=== PATIENT | male | born 1980 | race Caucasian/White ===

== ENCOUNTER 2022-09-13 10:40 | Outpatient (OUT) | payer OTHER, SELFPAY ==
--- NOTE | 2022-09-13 11:17 | P.CN_ITS ---
Consult Note: HPI Data of Consult Patient: known to practice within the last 3 years Consult date: 09/13/22 Requesting Physician: ROSINA ESPINAL NP Primary Care Provider: MARIBETH VUONG Consult Narrative Reason for consult: back pain Narrative: Here for f/u bilat L3,4 L4,5 MBB on 09/03/22. He received 80% relief of pain and increased fx for several hours after procedure. No new sensorimotor sx or bowel or bladder changes. Medication regimen helps control pain and assist with ability to complete ADLs. He does feel like the percocet is wearing off before next dose due. We discussed increasing dosing to 4 times a day until RFA completed. He has narcan at home. He will need second dx MBB on right before right RFA. No radicular sx. cc:: CC: ROSINA ESPINAL NP Review of Systems ROS0 Status of ROS 10 or more systems reviewed and unremarkable except as noted in history and below Musculoskeletal Reports: back pain Meds Home Medications and Allergies Home Medications Medication Instructions Recorded Confirmed Type acetaminophen 500 mg tablet 1,000 mg PO Q6H 09/13/22 09/13/22 History (Tylenol Extra Strength) cyclobenzaprine 10 mg tablet 10 mg PO TID 09/13/22 09/13/22 History dicyclomine 10 mg capsule 10 mg PO TID 09/13/22 09/13/22 History diphenhydramine HCl 25 mg tablet 50 mg PO DAILY 09/13/22 09/13/22 History (Allergy (diphenhydramine)) meloxicam 15 mg tablet 15 mg PO DAILY 09/13/22 09/13/22 History ondansetron HCl 8 mg tablet 8 mg PO BID PRN nausea and vomiting 09/13/22 09/13/22 History oxycodone-acetaminophen 5 mg-325 1 tab PO TID 09/13/22 09/13/22 History mg tablet (Endocet) Allergies Allergy/AdvReac Type Severity Reaction Status Date / Time gabapentin AdvReac Severe Dizziness Verified 09/13/22 11:25 Exam Constitutional Documenting provider has reviewed patient's vital signs: yes Common normals: no apparent distress, average body habitus, oriented x3, healthy appearing and well nourished Orientation/consciousness: Yes awake, Yes oriented to person, Yes oriented to place and Yes oriented to time Other: walks with cane HENMT Common normals: normocephalic, hearing grossly normal bilaterally, nasal mucous membranes and turbinates normal and moist oral mucous membranes Respiratory Common normals: normal respiratory effort, no retractions and no use of accessory muscles Effort & inspection: able to speak in complete sentences and symmetric chest movement Back & Pelvis Lumbar spine/lower back: normal to inspection, ROM limited, pain with ROM, paraspinal muscle tenderness, straight leg raise negative bilaterally and other soft tissue findings (positive facet load bilat) Assessment and Plan Assessment and Plan (1) Lumbar spondylosis: (2) Muscle spasm: Plan schedule thermal RFA left L3,4 and L4,5 under fluoroscopy with sedation. increase percocet dose to 4x daily
== END 2022-09-13 10:41 ==
PROVIDERS: Visit Provider Nurse Practitioner
DX: M47.816 Spondylosis without myelopathy or radiculopathy, lumbar region (principal); M62.838 Other muscle spasm
CPT/HCPCS: G0463

== ENCOUNTER 2022-09-24 08:07 | Day surgery (SDC) | payer OTHER, SELFPAY ==
--- NOTE | 2022-09-24 08:38 | W.PM.PROCNOT ---
Date of procedure: 09/24/22 Procedure: Left Lumbar 3,4 & 4,5 Radiofrequency ablation PreOp diagnosis: pain secondary to include lumbar spondylosis Postop diagnosis same Under fluoroscopic guidance Rhizotomy was created using radio frequency ablation at 80?C for 90 seconds 1 to 2 lesions created at each site. Post lesioning injection of 2 mL each of 0.25% Marcaine and 2% lidocaine with Depo-Medrol 40mg. 0.5 to 1 mL injected at each site IV in place yes If Intravenous fluids: NS at KVO Anesthesia local 2% lidocaine for Anesthesia Other: MAC Timeout process compliant After informed consent obtained.Patient brought to the procedure room placed in the prone position skin overlying the area was prepped and draped in a sterile fashion using betadine. 25 gauge needle was used to create a skin wheal over each of the targeted areas utilizing 2% lidocaine. A rhizotomy needle with a 10 mm active tip was inserted over each of the anesthetized areas and directed towards each of the medial branches accomplished under fluoroscopic guidance. after encountering the same we had positive sensory stimulation, negative motor stimulation was noted. lesions were then created. Post lesioning, steroid solution was injected needles removed. Patient was transferred to recovery room in stable condition to be discharged home after meeting criteria. Anesthesia: MAC Surgeon: Mindy Manning
[2022-09-24 09:03] VITALS: BP 149/97; PULSE 96; RESP 14; TEMP 36.9; O2SAT 97
[2022-09-24] MEDS: 0.9 % SODIUM CHLORIDE 500 ML 50 ML IV (09:08)
[2022-09-24] MEDS: BUPIVACAINE HCL 0.25% PF 25 MG/10 ML VIAL 5 ML INJ (10:02)
[2022-09-24] MEDS: METHYLPREDNISOLONE ACETATE 40 MG/ML VIAL INJ (10:03)
[2022-09-24] MEDS: LIDOCAINE HCL 2% 400 MG/20 ML MDV 15 ML INJ (10:04)
[2022-09-24 10:12] VITALS: BP 155/104; PULSE 90; RESP 16; TEMP 36.9
[2022-09-24 10:20] VITALS: BP 143/98; PULSE 92; RESP 16; O2SAT 94
[2022-09-24 10:26] VITALS: BMI 37.4
== END 2022-09-24 10:42 | disposition home or self-care (01) ==
LOC: SURGOUT 08:07
PROVIDERS: Visit Provider Anesthesiology Pain Medicine
DX: M47.816 Spondylosis without myelopathy or radiculopathy, lumbar region (principal)
CPT/HCPCS: 64635; 64636; 64646; J1030; J2704

== ENCOUNTER 2022-10-24 09:26 | Outpatient (OUT) | payer OTHER, SELFPAY ==
--- NOTE | 2022-10-24 10:03 | P.CN_ITS ---
Consult Note: HPI Data of Consult Consult date: 10/24/22 Requesting Physician: ROSINA ESPINAL NP Primary Care Provider: MARIBETH CASTELLANOSMER Consult Narrative Narrative: Patient was here for f/u of left lumbar RFA . He received 80% relief of pain with increased fx after procedure continued through today. Pain is more in right lumbar area today worse with movement, standing, lifting. He had initial dx MBB right side with 80% relief of pain. He would like to proceed with second dx MBB right with progression to RFA. Denies adverse SE of medications. Medication regimen assists patient with being better able to perform ADLS. No new sensorimotor or bowel or bladder issues. cc:: CC: ROSINA ESPINAL NP Review of Systems ROS Status of ROS 10 or more systems reviewed and unremarkable except as noted in history and below Musculoskeletal Reports: back pain PFSH [facility] Medical History (Updated 09/19/22 @ 13:30 by Holli Caldera) Surgical History Meds Home Medications and Allergies Home Medications Medication Instructions Recorded Confirmed Type acetaminophen 500 mg tablet 1,000 mg PO Q6H 09/13/22 09/24/22 History (Tylenol Extra Strength) cyclobenzaprine 10 mg tablet 10 mg PO TID 09/13/22 09/24/22 History diphenhydramine HCl 25 mg tablet 50 mg PO DAILY 09/13/22 09/24/22 History (Allergy (diphenhydramine)) meloxicam 15 mg tablet 15 mg PO DAILY 09/13/22 09/24/22 History ondansetron HCl 8 mg tablet 8 mg PO BID PRN nausea and vomiting 09/13/22 09/24/22 History oxycodone-acetaminophen 5 mg-325 1 tab PO TID 09/13/22 09/24/22 History mg tablet (Endocet) Allergies Allergy/AdvReac Type Severity Reaction Status Date / Time gabapentin AdvReac Severe Dizziness Verified 09/24/22 08:59 Exam Constitutional Documenting provider has reviewed patient's vital signs: yes Common normals: no apparent distress, oriented x3, healthy appearing, alert and well nourished General appearance: cooperative Nutritional appearance: obese Orientation/consciousness: Yes awake, Yes oriented to person, Yes oriented to place and Yes oriented to time Other: uses cane HENMT Common normals: normocephalic and moist oral mucous membranes Respiratory Common normals: normal respiratory effort, no retractions and no use of accessory muscles Effort & inspection: able to speak in complete sentences and symmetric chest movement Back & Pelvis Lumbar spine/lower back: normal to inspection, ROM limited, pain with ROM, paraspinal muscle tenderness, paraspinal muscle spasm and straight leg raise negative bilaterally Other: positive facet load pain right lumbar muscle strength 4/5 bilat with intact sensation Assessment and Plan Assessment and Plan (1) Muscle spasm: (2) Lumbar spondylosis: Plan schedule right dx MBB L3/4, L4/5 under fluoroscopy with ultimate progression to thermal RFA refill flexeril and percocet
== END 2022-10-24 09:27 | disposition home or self-care (01) ==
PROVIDERS: Visit Provider Nurse Practitioner
DX: M62.838 Other muscle spasm (principal); M47.816 Spondylosis without myelopathy or radiculopathy, lumbar region
CPT/HCPCS: G0463

== ENCOUNTER 2022-11-19 09:27 | Day surgery (SDC) | payer OTHER, SELFPAY ==
[2022-11-19 09:41] VITALS: BP 186/113; PULSE 104; RESP 18; TEMP 37.3; O2SAT 97
[2022-11-19 10:46] VITALS: BP 160/112; PULSE 99; RESP 20; O2SAT 97
[2022-11-19 10:47] VITALS: RESP 20
[2022-11-19] MEDS: BUPIVACAINE HCL 0.25% PF 25 MG/10 ML VIAL 4 ML INJ (10:47)
[2022-11-19 10:48] VITALS: BP 157/110; PULSE 99; O2SAT 96
--- NOTE | 2022-11-19 11:10 | W.PM.PROCNOT ---
Date of procedure: 11/19/22 Pre-op diagnosis: lumbar spondylosis Post-op diagnosis: same as pre-op Procedure: Right lumbar 2/3, 3/4 medial branch block Under fluoroscopic guidance Solution injected: 2millilitersMarcaine 0.25% Anesthesia :none Immediate complications none Time out process compliant After informed consent obtained from the patient placed in the Prone proposition . area was prepped and draped in a sterile fashion using Cloraprep .25 gauge spinal needle inserted over each of the above mentioned target areas . [place] were directed towards the target under fluoroscopic guidance . after encountering each of the targets , no indication of intravascular intraneuronal or intrathecal needle tip placement. Then 0 .5 to 1 Milliliter was injected at each level. [place] removed postoperatively. patient transferred to recovery in stable condition to be discharged home after meeting criteria Anesthesia: Local Surgeon: Mindy Manning Condition: stable
== END 2022-11-19 10:57 | disposition home or self-care (01) ==
LOC: SURGOUT 09:27
PROVIDERS: Visit Provider Anesthesiology Pain Medicine
DX: M47.816 Spondylosis without myelopathy or radiculopathy, lumbar region (principal)
CPT/HCPCS: 64493; 64494

== ENCOUNTER 2022-12-05 08:45 | Outpatient (OUT) | payer OTHER, SELFPAY ==
--- NOTE | 2022-12-05 09:12 | P.CN_ITS ---
Consult Note: HPI Data of Consult Patient: known to practice within the last 3 years Requesting Physician: Brianna Wallace NP Primary Care Provider: MARIBETH VUONG Consult Narrative Reason for consult: f/u Narrative: Pedro Pablo Irene a pleasant 41 year old male presents to office for evaluation of chronic low back pain. Patient had significant relief of over 80%, with increased range of motion, decreased pain with provocative maneuvers, and increased ability to perform ADLs after diagnostic right 2/3 4/5 block 2.??Patient rating pain today 7/10, BP notably elevated at todays visit 167/118. Patient advised to go to ER, declining. Will call PCP office and notify of BP. Patient would like to discuss proceedint with thermal RFA. cc:: CC: Brianna Wallace NP Review of Systems ROS Status of ROS 10 or more systems reviewed and unremarkable except as noted in history and below Musculoskeletal Reports: back pain PFSH PFSH Medical History Surgical History Meds Home Medications and Allergies Home Medications Medication Instructions Recorded Confirmed Type acetaminophen 500 mg tablet 1,000 mg PO Q6H 09/13/22 11/19/22 History (Tylenol Extra Strength) cyclobenzaprine 10 mg tablet 10 mg PO TID 09/13/22 11/19/22 History diphenhydramine HCl 25 mg tablet 50 mg PO DAILY 09/13/22 11/19/22 History (Allergy (diphenhydramine)) meloxicam 15 mg tablet 15 mg PO DAILY 09/13/22 11/19/22 History ondansetron HCl 8 mg tablet 8 mg PO BID PRN nausea and vomiting 09/13/22 11/19/22 History oxycodone-acetaminophen 5 mg-325 1 tab PO TID 09/13/22 11/19/22 History mg tablet (Endocet) oxycodone-acetaminophen 5 mg-325 1 tab PO TID PRN pain #90 tabs 11/21/22 Rx mg tablet (Percocet) Allergies Allergy/AdvReac Type Severity Reaction Status Date / Time gabapentin AdvReac Severe Dizziness Verified 11/19/22 09:38 zonisamide [From Zonegran] AdvReac Intermediate Nausea Verified 11/19/22 09:38 Exam Constitutional Documenting provider has reviewed patient's vital signs: yes Common normals: no apparent distress, oriented x3, healthy appearing, alert and well nourished General appearance: cooperative HENMT Common normals: normocephalic, hearing grossly normal bilaterally and moist oral mucous membranes Head and scalp: normocephalic Eye Common normals: PERRL Pupil: PERRL Neck & C-Spine Common normals: full ROM General: normal visual inspection Chest Common normals: inspection of chest normal Respiratory Common normals: normal respiratory effort, no retractions and no use of accessory muscles Back & Pelvis Lumbar spine/lower back: ROM limited, pain with ROM and straight leg raise negative bilaterally Sacroiliac joints: SI joints normal Other: predominately axial low back pain, post fusion Neuro Common normals: oriented x3, CN's II-XII intact bilaterally, moves all extr emities, no focal motor deficits, no sensory deficits noted and deep tendon reflexes 2+ bilaterally Sensorium/orientation: alert Motor exam: strength 5/5 throughout and no movement abnormalities noted Psych Common normals: mental status grossly normal, thought process normal, cooperative, affect normal, speech normal and activity/motor behavior normal Speech: normal speech Thought process: normal thought process Results Additional Findings Additional findings: I have checked an [place] report on this patient today and there are no aberrancies noted in the prescribing history.?? A drug screen was completed and reviewed within the last year, and if there has not been a drug screen completed we ordered one today to monitor higher risk, state monitored pain medication use. As part of providing excellent, safe, comprehensive care, the following was completed at our patient's visit: 1. A medication reconciliation and review to ensure accurate knowledge of curr ent/active medications, including asking our patients to inform us about any [id number] medications or herbal remedies/nutritional supplements/alternative remedies. 2. A review to specifically ensure our patients have had annual screening for: elevated body mass index (BMI), tobacco use, screening for depression, and screening for unhealthy alcohol use. When screening is concerning, patients are provided with education and the specific recommendation to discuss the concerning health issue and treatment options with their primary care provider. The patient has had over 3 months of moderate to severe low back pain with functional impairment and inadequate response to conservative care including NSAIDS (unless there are contraindication such as concurrent blood thinners), multiple oral or topical pain medications, and home exercise program/physical therapy.? Patient has completed >6 weeks of guided home exercise program and/or formal physical therapy program without relief of their symptoms.? The Oswestry Disability Index was completed, and the patient scored a 64%.? The patient noted the following:?? severe pain, pain with ADLs requiring assistance, can only lift very light w eights, pain prevents me from walking more than 100 yards, pain prevents her from standing more than 1hr, pain prevents her from standing more than 30 minutes, pain interferes with sleep, pain restricts social life and travel. We discussed the risks and benefits of the procedure with the patient.?The procedure will be completed with fluoroscopic guidance.? Assessment and Plan Assessment and Plan (1) Lumbar spondylosis: (2) Muscle spasm: (3) Status post lumbar spinal fusion: Plan thermal radiofrequency ablation of right L2/3 L4/5 under fluoroscopy with IV sedation f/u after procedure
== END 2022-12-05 08:46 | disposition home or self-care (01) ==
LOC: PM 09:13
PROVIDERS: Visit Provider Nurse Practitioner
DX: M47.816 Spondylosis without myelopathy or radiculopathy, lumbar region (principal); M62.838 Other muscle spasm; Z98.1 Arthrodesis status
CPT/HCPCS: G0463

== ENCOUNTER 2023-01-07 07:55 | Day surgery (SDC) | payer OTHER, SELFPAY ==
[2023-01-07 08:09] VITALS: BP 125/73; PULSE 102; RESP 16; TEMP 36.5; O2SAT 96
[2023-01-07] MEDS: 0.9 % SODIUM CHLORIDE 500 ML IV (08:17)
[2023-01-07] MEDS: BUPIVACAINE HCL 0.25% PF 25 MG/10 ML VIAL INJ (09:03)
[2023-01-07] MEDS: LIDOCAINE HCL 2% 400 MG/20 ML MDV 15 ML INJ (09:04)
[2023-01-07] MEDS: METHYLPREDNISOLONE ACETATE 40 MG/ML VIAL INJ (09:04)
[2023-01-07 09:18] VITALS: BP 137/87; PULSE 93; RESP 16; TEMP 36.8; O2SAT 97
[2023-01-07 09:19] VITALS: BP 127/85; PULSE 90; RESP 16; TEMP 36.8; O2SAT 96
--- NOTE | 2023-01-07 10:00 | W.PM.PROCNOT ---
Date of procedure: 01/07/23 Pre-op diagnosis: lumbar spondylosis Post-op diagnosis: same as pre-op Procedure: Right lumbar 2/3, 4/5 Radiofrequency ablation Under fluoroscopic guidance Rhizotomy was created using radio frequency ablation at 80?C for 90 seconds 1 to 2 lesions created at each site. Post lesioning injection of 2 mL each of 0.25% Marcaine and 2% lidocaine with Depo-Medrol 40mg. 0.5 to 1 mL injected at each site IV in place yes If Intravenous fluids: NS at KVO Anesthesia local 2% lidocaine for Anesthesia Other: MAC Timeout process compliant After informed consent obtained.Patient brought to the procedure room placed in the prone position skin overlying the area was prepped and draped in a sterile fashion using betadine. 25 gauge needle was used to create a skin wheal over each of the targeted areas utilizing 2% lidocaine. A rhizotomy needle with a 10 mm active tip was inserted over each of the anesthetized areas and directed towards each of the medial branches accomplished under fluoroscopic guidance. after encountering the same we had positive sensory stimulation, negative motor stimulation was noted. lesions were then created. Post lesioning, steroid solution was injected needles removed. Patient was transferred to recovery room in stable condition to be discharged home after meeting criteria. Anesthesia: MAC Surgeon: Mindy Manning Condition: stable
== END 2023-01-07 09:37 | disposition home or self-care (01) ==
LOC: SURGOUT 07:56
PROVIDERS: Visit Provider Anesthesiology Pain Medicine
PROC: (CPT 1992; principal; 2023-01-07 08:50)
DX: M47.816 Spondylosis without myelopathy or radiculopathy, lumbar region (principal)
CPT/HCPCS: 64635; 64636; J1030; J2704

== ENCOUNTER 2023-02-05 09:20 | Outpatient (OUT) | payer OTHER, SELFPAY ==
--- NOTE | 2023-02-05 09:38 | PM.CN ---
Consult Note: HPI Data of Consult Requesting Physician: Mindy Manning MD Primary Care Provider: MARIBETH VUONG Consult Narrative Reason for consult: f/u Narrative: Pedro Pablo Irene a pleasant 42 year old male presents for evaluation and management of chronic low back and right leg pain, post lumbar fusion. Today rating pain 6/10 in right low back, reports 80% ongoing relief in right low back over L2-3 4-5 facets. Patient utilizing PRN percocet TID as well as flexeril and tylenol. cc:: CC: Mindy Manning MD Review of Systems ROS Status of ROS 10 or more systems reviewed and unremarkable except as noted in history and below Musculoskeletal Reports: back pain PFSH PFSH Medical History Surgical History S/P lumbar spine operation ?Z98.890 - Other specified postprocedural states (ICD-10) Meds Home Medications and Allergies Home Medications Medication Instructions Recorded Confirmed Type acetaminophen 500 mg tablet 1,000 mg PO Q6H 09/13/22 01/07/23 History (Tylenol Extra Strength) cyclobenzaprine 10 mg tablet 10 mg PO TID 09/13/22 01/07/23 History diphenhydramine HCl 25 mg tablet 50 mg PO DAILY 09/13/22 01/07/23 History (Allergy (diphenhydramine)) meloxicam 15 mg tablet 15 mg PO DAILY 09/13/22 01/07/23 History oxycodone-acetaminophen 5 mg-325 1 tab PO TID 09/13/22 01/07/23 History mg tablet (Endocet) oxycodone-acetaminophen 5 mg-325 1 tab PO TID PRN pain #90 tabs 12/25/22 01/07/23 Rx mg tablet (Percocet) losartan 50 mg-hydrochlorothiazide tab 01/07/23 History 12.5 mg tablet cyclobenzaprine 10 mg tablet 10 mg PO TID PRN muscle spasm #80 01/22/23 Rx tabs oxycodone-acetaminophen 5 mg-325 1 tab PO TID PRN pain #90 tabs 01/22/23 Rx mg tablet (Percocet) Allergies Allergy/AdvReac Type Severity Reaction Status Date / Time gabapentin AdvReac Severe Dizziness Verified 01/07/23 08:07 zonisamide [From Zonegran] AdvReac Intermediate Nausea Verified 01/07/23 08:07 Exam Constitutional Documenting provider has reviewed patient's vital signs: yes Common normals: no apparent distress, oriented x3, healthy appearing, alert and well nourished General appearance: cooperative HENMT Common normals: normocephalic, hearing grossly normal bilaterally and moist oral mucous membranes Head and scalp: normocephalic Eye Common normals: PERRL Pupil: PERRL Neck & C-Spine Common normals: full ROM General: normal visual inspection Chest Common normals: inspection of chest normal Respiratory Common normals: normal respiratory effort, no retractions and no use of accessory muscles Back & Pelvis Lumbar spine/lower back: ROM limited, pain with ROM and straight leg raise negative bilaterally Sacroiliac joints: SI joints normal Other: predominately axial low back pain, post fusion Neuro Common normals: oriented x3, CN's II-XII intact bilaterally, moves all extremities, no focal motor deficits, no sensory deficits noted and deep tendon reflexes 2+ bilaterally Sensorium/orientation: alert Motor exam: strength 5/5 throughout and no movement abnormalities noted Psych Common normals: mental status grossly normal, thought process normal, cooperative, affect normal, speech normal and activity/motor behavior normal Speech: normal speech Thought process: normal thought process Assessment and Plan Assessment and Plan (1) Status post lumbar spinal fusion: (2) Muscle spasm: (3) Lumbar spondylosis: (4) Marijuana use: Plan Random UDS today. Patient admitted to utilizing marijuana, has previously tested positive for THC. Discontinue opioid prescription due to marijuana use continue flexeril 10mg TID continue tylenol PRN
== END 2023-02-05 09:21 | disposition home or self-care (01) ==
LOC: PM 09:21
PROVIDERS: Visit Provider Anesthesiology Pain Medicine
DX: M47.816 Spondylosis without myelopathy or radiculopathy, lumbar region (principal); M62.838 Other muscle spasm; Z98.1 Arthrodesis status
CPT/HCPCS: G0463

== ENCOUNTER 2023-05-07 08:48 | Outpatient (OUT) | payer OTHER, SELFPAY ==
--- OUTSIDE RECORDS SUMMARY | 2023-05-07 08:52 | XMS_ITS | CCD ---
Author Name Unknown Address [address] [facility] [address] [place] [address] Organization [facility] Care Team Providers Care Coil Strapper Name Role Phone Lashay Li Admitting Unavailable Lashay Li Attending Unavailable RENE MORRELL Primary Care Unavailable PHI RENE Attending Unavaila Charles Cohen Unavailable Carolann, Maribeth Unavailable Carolann, Maribeth Unavailable Carolann, Maribeth Unavailable Carolann, DO Maribeth Williamson Primary Care Provider Carolann, DO Maribeth N Attending Provider Igor Orr Unavailable CAROLANN, MARIBETH Primary Care Unavailable LEANDER LAFLEUR Consulting Unavailable LEANDER LAFLEUR Attending Unavailable LEANDER LAFLEUR Admitting Unavailable EVANGELIST LEOS Consulting Unavailable CAROLANN, MARIBETH Primary Care Unavailable TONO Alexandra, DR ARMENTA Consulting Unavailable TONO Alexandra, DR ARMENTA Attending Unavailable TONO ., DR ARMENTA Admitting Unavailable WISAM ., DR JESSICA Huerta Attending Unavailable CAROLANN, MARIBETH Primary Care Unavailable SCHUSTER ., BRIT Consulting Unavailable WISAM ., DR JESSICA Huerta Admitting Unavailable JOEL ., DR JESSICA Huerta Consulting Unavailable WISAM ., DR JESSICA Huerta Attending Unavailable CAROLANN, MARIBETH Primary Care Unavailable JOEL ., DR JESSICA Huerta Admitting Unavailable JOEL ., DR JESSICA Huerta Attending Unavailable CAROLANN, MARIBETH Primary Care Unavailable JOEL ., DR JESSICA Huerta Admitting Unavailable SCHUSTER ., BRIT Consulting Unavailable JOEL ., DR JESSICA Huerta Attending Unavailable CAROLANN, MARIBETH Primary Care Unavailable JOEL ., DR JESSICA Huerta Admitting Unavailable SCHUSTER ., BRIT Consulting Unavailable JESS ., NARENDRANATH Attending Jsesy vailable LAKSHMIPATHY ., NARENDRANATH Admitting Jessy vailable CAROLANN, MARIBETH Primary Care Unavailable BALWINDEREBKHUSHBOO, DR DAMARIS Deras Consulting Unavailable LAKSHMIPATHY ., NARENDRANATH Consulting Jessy vailable SCHUSTER ., BRIT Attending Unavailable SCHUSTER ., BRIT Admitting Unavailable CAROLANN, MARIBETH Primary Care Unavailable WEST, DR RENE Velasco Consulting Unavailable ZIEBER, DR DAMARIS Deras Consulting Unavailable SCHUSTER ., BRIT Consulting Unavailable LAKSHMIPATHY ., NARENDRANATH Consulting Jessy vailable LAKSHMIPATHY ., NARENDRANATH Attending Jessy vailable LAKSHMIPATHY ., NARENDRANATH Admitting Jessy vailable CAROLANN, MARIBETH Primary Care Unavailable LAKSHMIPATHY ., NARENDRANATH Attending Jessy vailable LAKSHMIPATHY ., NARENDRANATH Admitting Jessy vailable CAROLANN, MARIBETH Primary Care Unavailable HALKER ., ROSINA Consulting Unavailable LAKSHMIPATHY ., NARENDRANATH Consulting Jessy vailable LAKSHMIPATHY ., NARENDRANATH Attending Jessy vailable LAKSHMIPATHY ., NARENDRANATH Admitting Jessy vailable CAROLANN, MARIBETH Primary Care Unavailable LAKSHMIPATHY ., NARENDRANATH Consulting Jessy vailable LAKSHMIPATHY ., NARENDRANATH Attending Jessy vailable LAKSHMIPATHY ., NARENDRANATH Admitting Jessy vailable CAROLANN, MARIBETH Primary Care Unavailable LAKSHMIPATHY ., NARENDRANATH Consulting Jessy vailable LAKSHMIPATHY ., NARENDRANATH Attending Jessy vailable CAROLANN, MARIBETH Primary Care Unavailable LAKSHMIPATHY ., NARENDRANATH Admitting Jessy vailable JOEL ., DR JESSICA Huerta Attending Unavailable JOEL ., DR JESSICA Huerta Admitting Unavailable CAROLANN, MARIBETH Primary Care Unavailable SCHUSTER ., BRIT Consulting Unavailable CAROLANN, MARIBETH Consulting Unavailable SCHUSTER ., BRIT Consulting Unavailable CAROLANN, MARIBETH Primary Care Unavailable SCHUSTER ., BRIT Admitting Unavailable SCHUSTER ., BRIT Attending Unavailable CAROLANN, MARIBETH Consulting Unavailable JOEL ., DR JESSICA Huerta Attending Unavailable CAROLANN, MARIBETH Primary Care Unavailable JOEL ., DR JESSICA Huerta Admitting Unavailable SCHUSTER ., BRIT Consulting Unavailable CAROLANN, MARIBETH Consulting Unavailable MD Nash Cardenas Attending Provider Nash Cardenas Unavailable Carolann, Maribeth N Attending Unavailable Carolann, Maribeth N Admitting Unavailable Carolann, Maribeth N Primary Care Unavailable Carolann, Maribeth N Attending Unavailable Carolann, Maribeth N Admitting Unavailable Carolann, Maribeth N Primary Care Unavailable Carolann, Maribeth N Attending Unavailable Carolann, Maribeth N Admitting Unavailable Carolann, Maribeth N Primary Care Unavailable Nash Cardenas Admitting Unavailable Nash Cardenas Attending Unavailable Carolann, Maribeth N Primary Care Unavailable Allergies Allergy Classification Reported Allergen(s) Allergy Type Date of Onset Reaction(s) Facility (15 sources) gabapentin Drug Allergy 3 dizziness, sleepy, Drowsy [facility] [place] [facility] (1 source) gabapentin Drug Allergy [facility] (9 sources) zonisamide Drug Allergy 3 diarrhea [facility] (1 source) gabapentin Drug Allergy 3 [facility] (1 source) zonisamide Drug Allergy 3 [facility]ository Medications Current Medications Medication Drug Class(es) Dates Sig (Normalized) Sig (Original) acetaminophen 500 mg oral tablet (20 sources) Start: 09-26-2022 take 500 mg by mouth every six hours Acetaminophen Active 500 MG PO Q6H September 26, 2022 12:00am Start: 12-17-2016 End: 09-26-2022 take 2 tablets by mouth twice daily Acetaminophen Discontinued 2 TAB PO Twice daily December 17, 2016 12:00am September 26, 2022 8:34am acetaminophen 325 mg / oxyCODONE hydrochloride 5 mg oral tablet (20 sources) Opioid Agonist Start: 09-26-2022 take 1 tablet by mouth four times daily Oxycodone-Acetaminophen Active 1 TAB PO Four times daily September 26, 2022 12:00am Start: 05-08-2021 take 1 tablet by elizabeth th three times daily as needed oxyCODONE-Acetaminophen 5-325 MG 1 table t as needed Orally up to three times daily as needed for 30 days Jun, Active take 1 tablet by elizabeth th three times daily as needed oxyCODONE-Acetaminophen 7.5-325 MG 1 tablet as needed Orally up to three times daily as needed for 7 days Active Acetaminophen Extra Strength 500 MG (11 sources) take 1 tablet by mouth every six hours as needed Acetaminophen Extra Strength 500 MG 1 tablet as needed Orally every 6 hrs Active calcium carbonate 1500 mg / cholecalciferol 0.01 mg oral tablet (1 source) Vitamin D Start: 09-27-19 take 1 tablet by mouth once daily Calcium Carbonate-Vitamin D3 (Calcium 600 + D(3)) 600 mg-10 mcg (400 unit) Tablet Active 1 TAB PO Daily September 26, 2022 12:00am Cane - (10 sources) Start: 05-21-19 Cane - 1 May, Active Cannabis - Medical (18 sources) Cannabis - Medic al Active cyclobenzaprine hydrochloride 10 mg oral tablet (20 sources) Muscle Relaxant Start: 09-27-19 take 10 mg by mouth three times daily Cyclobenzaprine Active 10 MG PO Three times daily September 26, 2022 12:00am Start: 06-06-2021 take 1 tablet by elizabeth twice daily as needed Cyclobenzaprine HCl 10 MG 1 tablet as needed Orally up to twice daily as needed for 30 day(s) Jun, Active Start: 12-17-2016 End: 01-29-2019 take 1 tablet by mouth twice daily Cyclobenzaprine Discontinued 1 TAB PO Twice daily December 17, 2016 12:00am January 29, 2019 7:38am take 1 tablet by elizabeth every twenty-four hours Cyclobenzaprine HCl 10 MG 1 tablet at bedtime as needed Orally Once a day Active take 1 tablet by elizabeth three times daily as needed Cyclobenzaprine HCl 10 MG 1 tablet as needed Orally up to three times daily as needed for 90 days Active diclofenac sodium 50 mg delayed release oral tablet (7 sources) Nonsteroidal Anti-inflammatory Drug take 1 tablet by mouth every twelve hours Diclofenac Sodium 50 MG 1 tablet as needed Orally Twice a day Active take 1 tablet by elizabeth every twelve hours Diclofenac Sodium 75 MG 1 tablet as need ed Orally Twice a day Active dicyclomine hydrochloride 20 mg oral tablet (4 sources) Anticholinergic Start: 07-16-2022 take 1 tablet by mouth every eight hours Dicyclomine HCl 20 MG 1 tablet Orally Three times a day for 30 days Jul, Active diphenhydrAMINE hydrochloride 25 mg oral capsule (19 sources) Histamine-1 Receptor Antagonist Start: 09-26-2022 take 2 capsules by mouth once daily at bedtime Diphenhydramine Hcl (Benadryl) 25 mg Capsule Active 50 MG PO Daily at bedtime September 26, 2022 12:00am Start: 07-01-2017 End: 01-29-2019 Diphenhydramine Hcl Disconti nued 1 CAP PO As Directed July 01, 2017 12:00am January 29, 2019 7:38am docusate sodium 100 mg oral capsule (20 sources) Start: 02-01-2021 take 1 capsule by mouth every twelve hours Docusate Sodium 100 MG 1 capsule as needed Orally bid for 30 day(s) Jan, Active DULoxetine 30 mg delayed release oral capsule (18 sources) Serotonin and Norepinephrine Reuptake Inhibitor Start: 06-06-2021 take 1 capsule by mouth every twenty-four hours Cymbalta 30 MG 1 capsule Orally Once a day for 30 day(s) Jun, Active take 1 capsule by [facility] every twenty-four hours Cymbalta 60 MG 1 capsule Orally Once a day for 90 days Active Handicap placards as directed (18 sources) Start: 2018 Handicap placards as directed as directed as directed as directed Dec, Active hydroCHLOROthiazide 12.5 mg / losartan potassium 50 mg oral tablet (5 sources) Thiazide Diuretic, Angiotensin 2 Receptor Avery Start: 12-12-2022 take 1 tablet by mouth every twenty-four hours Losartan Potassium-HCTZ 50-12.5 MG 1 tablet Orally Once a day for 90 days Dec, Active Start: 12-12-2022 [facility] Losartan Potassium-HCTZ 50-12.5 MG 1 tablet Orally Once a day for 90 days Dec, Active lactulose 667 mg/ml oral solution (3 sources) Osmotic Laxative Start: 07-15-2022 take 30 mL by mouth twice daily as needed Lactulose 20 GM/30ML 30 mL Orally bid prn for 30 days Jul, Active Magnesium (1 source) Start: 09-26-2022 take 100 mg by mouth once daily Magnesium Active 100 MG PO Daily September 26, 2022 12:00am meloxicam 15 mg oral tablet (20 sources) Nonsteroidal Anti-inflammatory Drug Start: 09-26-2022 take 15 mg by mouth once daily Meloxicam Active 15 MG PO Daily September 26, 2022 12:00am methocarbamol 500 mg oral tablet (4 sources) Muscle Relaxant Start: 05-08-2021 take 1 tablet by mouth twice daily as needed Methocarbamol 500 MG 1 tablet Orally twice daily as needed for 30 day(s) May, Active niacin 500 mg oral tablet (1 source) Nicotinic Acid Start: 09-26-2022 take 500 mg by mouth once daily Niacin Active 500 MG PO Daily September 26, 2022 12:00am ondansetron 8 mg oral tablet (6 sources) Serotonin-3 Receptor Antagonist take 1 tablet by mouth once daily as needed Zofran 8 MG 1 tablet as needed Orally Once a day Active polyethylene glycol 3350 791410 mg / potassium chloride 2970 mg / sodium bicarbonate 6740 mg / sodium chloride 5860 mg / sodium sulfate 23190 mg powder for oral solution (6 sources) Osmotic Laxative Start: 07-24-2022 Golytely 236 GM 8oz every 15 minutes Orally at 4pm the day prior to colonoscopy for 1 days Jul, Active predniSONE 20 mg oral tablet (15 sources) Start: 02-12-2021 take 2 tablets by mouth every twenty-four hours predniSONE 20 MG 2 tablet Orally Once a day for 7 days PRN Feb, Active sennosides, snf 8.6 mg oral tablet (16 sources) Start: 02-01-2021 take 2 tablets by mouth once daily at bedtime as needed Senna Lax 8.6 MG 2 tablets at bedtime as needed Orally Once a day for 30 day(s) Jan, Active sildenafil 50 mg oral tablet (3 sources) Phosphodiesterase 5 Inhibitor Start: 01-17-2023 take 1 tablet by mouth every twenty-four hours Sildenafil Citrate 50 MG 1 tablet as needed Orally Once a day for 30 days Jan, Active varenicline 1 mg oral tablet (8 sources) Partial Cholinergic Nicotinic Agonist Start: 05-22-2021 take 1 tablet by mouth every twelve hours Varenicline Tartrate 1 MG 1 tab(s) Orally Twice a day for 30 day(s) May, Active Start: 05-22-2021 Varenicline Ta rtrate 1 MG 1/2 tab daily x 3 days, then 1/2 bid x 4 days, then 1 tab twice daily Orally Once a day for 30 day(s) May, Active Completed/Discontinued Medications Medication Drug Class(es) Dates Sig (Normalized) Sig (Original) acetaminophen 325 mg / HYDROcodone bitartrate 5 mg oral tablet (4 sources) Opioid Agonist Start: 12-17-2016 End: 09-26-2022 take 1 tablet by mouth twice daily Hydrocodone-Acetami nophen Discontinued 1 TAB PO Twice daily December 17, 2016 12:00am September 26, 2022 8:34am Cannabis (4 sources) Start: 01-21-2019 End: 09-26-2022 Cannabis Discontinued January 21, 2019 12:00am September 26, 2022 8:34am Start: 01-21-2019 Cannabis Activ e January 21, 2019 12:00am celecoxib 200 mg oral capsule (4 sources) Nonsteroidal Anti-inflammatory Drug Start: 12-17-2016 End: 09-26-2022 take 1 capsule by mouth twice daily Celecoxib Discontinued 1 CAP PO Twice daily December 17, 2016 12:00am September 26, 2022 8:34am Medrol Dose Pack as directed (12 sources) Start: 10-05-2020 Medrol Dose Pack as directed as directed orally as directed Oct, Not-Taking Start: 10-05-2020 Medrol Dose Pa ck as directed as directed orally as directed Oct, Active methylPREDNISolone acetate 8 0 mg/ml injectable suspension (20 sources) Corticosteroid Start: 09-11-2022 DEPO-Medrol Dec, 40 mg Start: 03-25-2019 Depo-Medrol 80 mg Mar, 40 mg 12 hr orphenadrine citrate 100 mg extended release oral tablet (4 sources) Muscle Relaxant Start: 01-21-2019 End: 09-26-2022 take 100 mg by mouth twice daily Orphenadrine Citrate Discontinued 100 MG PO Twice daily January 21, 2019 12:00am September 26, 2022 8:35am pregabalin 75 mg oral capsule (4 sources) Start: 12-17-2016 End: 01-29-2019 take 2 capsules by mouth twice daily Pregabalin (Lyrica) 75 mg capsule Discontinued 2 CAP PO Twice daily December 17, 2016 12:00am January 29, 2019 7:38am tiZANidine 4 mg oral tablet (4 sources) Central alpha-2 Adrenergic Agonist Start: 07-01-2017 End: 01-29-2019 take 1 tablet by mouth twice daily Tizanidine Discontinued 1 TAB PO Twice daily July 01, 2017 12:00am January 29, 2019 7:38am Triamcinolone (20 sources) Corticosteroid Start: 12-11-2017 Kenalog -40 mg Dec, 40 mg zonisamide 100 mg oral capsule (6 sources) Anti-epileptic Agent take 1 capsule by mouth every twenty-four hours Zonisamide 100 MG 1 capsule Orally Once a day nerve b Not-Taking Problems Active Problems Problem Classification Problem Date Documented Da te Episodic/Chronic Abdominal pain (8 sources) Generalized abdominal pain; Translations: [Unspecified abdominal pain] Onset: 07-15-2022 Episodic Essential hypertension (8 sources) Essential hypertension; Translations: [Essential (primary) hypertension] Chronic Gastrointestinal hemorrhage (1 source) Hemorrhage of anus and rectum Episodic Genitourinary symptoms and ill-defined conditions (1 source) Unspecified urinary incontinence; Translations: [UNSPECIFIED URINARY INCONTINENCE] Onset: 06-29-2022 Chronic Genitourinary symptoms and ill-defined conditions (1 source) Unspecified abnormal findings in urine Episodic Osteoarthritis (20 sources) Localized, primary osteoarthritis of the wrist; Translations: [Primary osteoarthritis, 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 Other aftercare (4 sources) Encounter for therapeutic drug level monitoring; Translations: [Encounter for therapeutic drug level monitoring] Onset: 07-12-2022 Episodic Other aftercare (1 source) Other assisted (current) drug therapy; Translations: [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 DRUG THERAPY] Onset: 07-17-2022 Episodic Other gastrointestinal disorders (20 sources) Slow transit constipation; Translations: [Slow transit constipation] Onset: 07-15-2022 Episodic Other gastrointestinal disorders (5 sources) Slow transit constipation; Translations: [Slow transit constipation K59.01] Onset: 02-01-2021 Resolved: 02-12-2021 Episodic Other gastrointestinal disorders (14 sources) Incontinence of feces; Translations: [Full incontinence of feces] Episodic Other gastrointestinal disorders (1 source) Full incontinence of feces Episodic Other gastrointestinal disorders (11 sources) Constipation; Translations: [Constipation, unspecified] Episodic Other gastrointestinal disorders (1 source) Change in bowel habit Episodic Other male genital disorders (3 sources) Secondary erectile dysfunction; Translations: [Erectile dysfunction due to diseases classified elsewhere] Chronic Other male genital disorders (1 source) Erectile dysfunction due to diseases classified elsewhere Chronic Other nervous system disorders (20 sources) Chronic pain; Translations: [Other chronic pain] Chronic Other nervous system disorders (8 sources) Other chronic pain; Translations: [Other chronic pain G89.29] Onset: 01-08-2021 Resolved: 07-09-2021 Chronic Other nervous system disorders (1 source) Chronic pain syndrome; Translations: [CHRONIC PAIN SYNDROME] Onset: 12-19-2021 Chronic Other non-traumatic joint disorders (20 sources) Arthralgia of the lower leg; Translations: [Pain in right knee] Episodic Other nutritional; endocrine; and metabolic disorders (20 sources) Disorder of lipid metabolism; Translations: [Disorder of lipoprotein metabolism, unspecified] Chronic Other nutritional; endocrine; and metabolic disorders (2 sources) Disorder of lipoprotein metabolism, unspecified Chronic Other nutritional; endocrine; and metabolic disorders (1 source) Abnormal weight loss Episodic Other screening for suspected conditions (not mental disorders or infectious disease) (3 sources) Encounter for screening for malignant neoplasm of prostate; Translations: [Encounter for screening for malignant neoplasm of prostate] Onset: 07-12-2022 Episodic Spondylosis; intervertebral disc disorders; other back problems (20 sources) Displacement of lumbar intervertebral disc without myelopathy; Translations: [Other intervertebral disc displacement, lumbar region] Onset: 01-08-2021 Resolved: 07-09-2021 Chronic Spondylosis; intervertebral disc disorders; other back problems (20 sources) Thoracic back pain; Translations: [Pain in thoracic spine] Onset: 04-12-2021 Resolved: 07-09-2021 Episodic Spondylosis; intervertebral disc disorders; other back problems (1 source) Spondylosis; intervertebral disc disorders; other back problems; Translations: [Other spondylosis with radiculopathy, lumbar region] Onset: 08-20-2022 Substance-related disorders (20 sources) Nicotine dependence; Translations: [Nicotine dependence, cigarettes, uncomplicated] Onset: 05-22-2021 Resolved: 06-22-2021 Chronic Substance-related disorders (20 sources) Continuous opioid dependence; Translations: [Opioid use, unspecified, uncomplicated] Onset: 01-08-2021 Resolved: 07-09-2021 Episodic Unclassified (3 sources) LOW BACK PAIN, UNSPECIFIED; Translations: [LOW BACK PAIN, UNSPECIFIED] Onset: 12-19-2021 Unclassified (1 source) Hemorrhage of anus and rectum; Translations: [Hemorrhage of anus and rectum] Onset: 09-26-2022 Unclassified (1 source) Disorder of lipoprotein metabolism, unspecified; Translations: [Disorder of lipoprotein metabolism, unspecified] Onset: 07-12-2022 Past or Other Problems Problem Classification Problem Date Documented Da te Episodic/Chronic Other gastrointestinal disorders (2 sources) Constipation, unspecified; Translations: [CONSTIPATION UNSPECIFIED] Onset: 10-03-2021 Episodic Other non-traumatic joint disorders (1 source) Pain in right knee; Translations: [Knee pain, right M25.561] Onset: 01-08-2021 Resolved: 01-08-2021 Episodic Unclassified (1 source) LOW BACK PAIN, UNSPECIFIED; Translations: [LOW BACK PAIN, UNSPECIFIED] Onset: 07-23-2022 Results Test Name Value Interpretation Reference Range Facility Amylaseon 07-15-2022 Amylase [Catalytic activity/Vol] 43 U/L Normal 29-103 [facility] Comment on above: Order Comment: Reaso n for Exam Generalized abdominal pain;Slow transit constipation;Medicat Reason for Exam Generalized abdominal pain;Medication monitoring encounter NOT FASTING. JKW Performed By: #### C BC, POOJA, LIPASE #### [address] Amylase 43 U/L Normal 29-103 U/L [employer] [place] Other Amylase [Enzymatic activity/ volume] in Serum or PlasmaOrdered By: Maribeth Vuong on 07-15-2022 Amylase [Catalytic activity/Vol] 43 U/L 29-103 [facility] Basophils Auto (Bld) [#/Vol] Ordered By: Maribeth Vuong on 07-15-2022 Basophils (Bld) [#/Vol] 0.0 10*3/uL 0.0-0.2 [facility] Basophils/100 WBC Auto (Bld) Ordered By: Maribeth Vuong on 07-15-2022 Basophils/100 WBC (Bld) 0.5 % . F [facility] CBC W MANUAL DIFFon 07-16-19 23 ATYPICAL LYMPH # Normal [facility] Comment on above: Performed By: #### C JEAN ####[facility] [address] [place] [id number]. Sydney David ATYPICAL LYMPH % Normal [facility] Comment on above: Performed By: #### C JEAN ####[facility] [address] [place] [id number]. Sydney David BAND # 0.1 103/ul Normal 0.0-0.3 [facility] Comment on above: Performed By: #### C JEAN ####[facility] [address] [place] [address]Dr. Sydney David BAND % 1 % Normal 0-5 [facility] Comment on above: Performed By: #### C JEAN ####[facility] [address] [place] [address]Dr. Sydney David BASOM # 0.00 103/ul Normal 0.00-0.10 [facility] Comment on above: Performed By: #### C JEAN ####[facility] [address] [place] [address]Dr. Sydney Frankie BASOM % 0.0 % Critically low 0.2-2.0 [facility] Comment on above: Performed By: #### C JEAN ####[facility] [address] [place] [address]Dr. Sydney David BLAST # Normal [facility] Comment on above: Performed By: #### C JEAN ####[facility] [address] [place] [id number]. Keymera David BLAST % Normal [facility] Comment on above: Performed By: #### C JEAN ####[facility] [address] [place] [address]Dr. Sydney David CORRECTED WBC Normal 4.0-11.0 [facility] Comment on above: Performed By: #### C JEAN ####[facility] [address] [place], [place] [address]DrIbrahima David EOS # 0.24 103/ul Normal 0.00-0.70 [facility] Comment on above: Performed By: #### C JEAN ####[facility] [address] [place] [id number]. Sydney David EOS% 3.0 % Normal 0.9-7.0 [facility] Comment on above: Performed By: #### C JEAN ####[facility] [address] [place] [id number]. Sydney David HCT 46.4 % Normal 42.0-54.0 [facility] Comment on above: Performed By: #### C JEAN ####[facility] [address] [place] [id number]. Sydney David HGB 15.4 g/dl Normal 14.0-18.0 [facility] Comment on above: Performed By: #### C JEAN ####[facility] [address] [place] [id number]. Sydney David LYMPHM # 3.36 103/ul Normal 1.20-3.80 [facility] Comment on above: Performed By: #### C JEAN ####[facility] [address] [place] [id number]. Sydney David LYMPHM% 42.0 % Normal 20.5-60.0 [facility] Comment on above: Performed By: #### C JEAN ####[facility] [address] [place] [id number]. Sydney David MCH 30.3 pg Normal 25.9-34.0 [facility] Comment on above: Performed By: #### C JEAN ####[facility] [address] [place] [id number]. Sydney David MCHC 33.2 g/dl Normal 29.9-35.2 [facility] Comment on above: Performed By: #### C JEAN ####[facility] [address] [place] [id number] David MCV 91.3 fL Normal 80.0-94.0 [facility] Comment on above: Performed By: #### C JEAN ####[facility] [address] [place], [place] [address]Ot. Sydney David METAMYELOCYTE # Normal [facility] Comment on above: Performed By: #### C JEAN ####[facility] [address] [place], [place] [address]Zh. Sydney David METAMYELOCYTE % Normal [facility] Comment on above: Performed By: #### C JEAN ####[facility] [address] [place] [id number]. Sydney David MONOM# 0.80 103/ul Normal 0.30-0.80 [facility] Comment on above: Performed By: #### C JEAN ####[facility] [id number] [place] [id number]. Sydney David MONOM% 10.0 % Normal 1.7-12.0 [facility] Comment on above: Performed By: #### C JEAN ####[facility] [address] [place] [id number]. Sydney David MPV 11.8 fL Normal 9.5-13.5 [facility] Comment on above: Performed By: #### Maya PENA ####[facility] [address] [place] [id number]. Sydney David MYELOCYTE # Normal [facility] Comment on above: Performed By: #### C JEAN ####[facility] [address] [place] [id number]. Sydney David MYELOCYTE % Normal [facility] Comment on above: Performed By: #### C JEAN ####[facility] [address]ats[address] [place] [id number]. Sydney David NRBC Normal [facility] Comment on above: Performed By: #### C JEAN ####[facility] [address] [place] [id number]. Sydney aDvid PLT 249 103/ul Normal 150-450 [facility] Comment on above: Performed By: #### C JEAN ####[facility] [address] [place], [place] [address]Zt. Sydney David RBC 5.08 106/ul Normal 4.70-6.10 [facility] Comment on above: Performed By: #### Maya PENA ####[facility] Tpf[address] [place], [place] [address]Ij. Sydney David RDW 13.1 % Normal 11.0-15.0 [facility] Comment on above: Performed By: #### Maya PENA ####[facility] [address] [place], [place] [address]Xu. Sydney David SEG # 3.52 103/ul Normal 1.40-6.50 [facility] Comment on above: Performed By: #### Maya PENA ####[facility] [address] [place], [place] [address]Ah. Sydney David SEG % 44.0 % Normal 43.0-75.0 [facility] Comment on above: Performed By: #### aMya PENA ####[facility] [address] [place], [place] [address]Nj. Sydney David WBC 8.0 103/ul Normal 4.0-11.0 [facility] Comment on above: Performed By: #### Maya PENA ####[facility] [address] [place], [place] [address]Lg. Sydney David CT ABD/PELV W CONon 07-16-[address] ABD/PELV W CON EXAM: CT ABD/PELV W CON HISTORY: UNSPECIFIED ABDOMINAL PAIN COMPARISON: None. TECHNIQUE: Axial CT imaging was performed through the abdomen and pelvis with intravenous contrast. Multiplanar reformats were performed. Dose reduction techniques were achieved by using automated exposure control and/or adjustment of mA and/or kV according to patient size and/or use of iterative reconstruction technique. FINDINGS: Lung bases: Lung bases are clear. No pleural effusion. GI upper: Unremarkable. Liver: Hepatic steatosis. Normal size and contour. Gallbladder: No significant abnormality. No cholelithiasis. Biliary system: No intra or extrahepatic biliary ductal dilatation. Spleen: Normal size. Pancreas: Unremarkable. Adrenal glands: Normal adrenal glands. Kidneys/ureters: Normal contours. No hydronephrosis. No nephrolithiasis or ureterolithiasis. Vessels: No aneurysm. Lymph Nodes: No lymphadenopathy. Small bowel: No wall thickening or dilatation. Colon: No wall thickening or dilatation. Appendix: No findings of appendicitis. Peritoneal cavity: No free fluid or pneumoperitoneum. Lower : Unremarkable. Bones: No acute bony abnormality. Status post posterior decompression and transpedicular fusion L5-S1 Soft tissues: No acute finding. Additional findings: None. IMPRESSION: Unremarkable CT of the abdomen and pelvis. No acute abnormality. Electronically authenticated by: EVANGELIST LEOS Date: 2022-07-15 16:53 Normal [facility] Complete Blood Count Auto Di ffon 07-15-2022 Basophils (Bld) [#/Vol] 0.0 10*3/uL Normal 0.0-0.2 [facility] [place] [facility] Comment on above: Order Comment: Reaso n for Exam Medication monitoring encounter Result Comment: PERF ORMED BY: [place] [id number] PATHOLOGIST [employer] ALEM GARCIA M.D. Performed By: #### C BC, POOJA, LIPASE #### [address] Basophils/100 WBC (Bld) 0.5 % Normal . [facility] Comment on above: Order Comment: Reaso n for Exam Medication monitoring encounter Performed By: #### C BC, POOJA, LIPASE #### [address] Eosinophils (Bld) [#/Vol] 0.6 10*3/uL High 0.0-0.45 [facility] [place] [facility] Comment on above: Order Comment: Reaso n for Exam Medication monitoring encounter Performed By: #### C BC, POOJA, LIPASE #### [address] Eosinophils/100 WBC (Bld) 6.1 % Normal . [facility] [place] [facility] Comment on above: Order Comment: Reaso n for Exam Medication monitoring encounter Performed By: #### C BC, POOJA, LIPASE #### [address] Erythrocyte distribution width (RBC) [Ratio] 13.6 % Normal 12.0-14.8 [facility] [place] [facility] Comment on above: Order Comment: Reaso n for Exam Medication monitoring encounter Performed By: #### C BC, POOJA, LIPASE #### [address] Hematocrit (Bld) [Volume fraction] 47.4 % Normal 38.8-50.0 [facility] [place] [facility] Comment on above: Order Comment: Reaso n for Exam Medication monitoring encounter Performed By: #### C BC, POOJA, LIPASE #### [address] Hemoglobin (Bld) [Mass/Vol] 15.5 g/dL Normal 13.0-17.0 [facility] [place] [facility] Comment on above: Order Comment: Reaso n for Exam Medication monitoring encounter Performed By: #### C BC, POOJA, LIPASE #### [address] Lymphocytes (Bld) [#/Vol] 4.3 10*3/uL Normal 1.00-4.8 [facility] [place] [facility] Comment on above: Order Comment: Reaso n for Exam Medication monitoring encounter Performed By: #### C BC, POOJA, LIPASE #### [address] Lymphocytes/100 WBC (Bld) 46.5 % Normal . [facility] [place] [facility] Comment on above: Order Comment: Reaso n for Exam Medication monitoring encounter Performed By: #### C BC, POOJA, LIPASE #### [address] MCH (RBC) [Entitic mass] 30.2 pg Normal 27.5-35.2 [facility] [place] [facility] Comment on above: Order Comment: Reaso n for Exam Medication monitoring encounter Performed By: #### C BC, POOJA, LIPASE #### [address] MCV (RBC) [Entitic vol] 92.3 fL Normal 83.5-101 F [facility] Comment on above: Order Comment: Reaso n for Exam Medication monitoring encounter Performed By: #### C BC, POOJA, LIPASE #### [address] [place] [address] [place] Mean Corpuscular HGB Conc 32.7 g/dL Normal 32.5-35.6 [facility] [place] [facility] Comment on above: Order Comment: Reaso n for Exam Medication monitoring encounter Performed By: #### C BC, POOJA, LIPASE #### [address] Monocytes (Bld) [#/Vol] 0.8 10*3/uL Normal 0.0-0.8 [facility] [place] [facility] Comment on above: Order Comment: Reaso n for Exam Medication monitoring encounter Performed By: #### C BC, POOJA, LIPASE #### [address] Monocytes/100 WBC (Bld) 8.3 % Normal . [facility] Comment on above: Order Comment: Reaso n for Exam Medication monitoring encounter Performed By: #### C BC, POOJA, LIPASE #### [address] Neutrophils (Bld) [#/Vol] 3.6 10*3/uL Normal 1.8-7.7 [facility] [place] [facility] Comment on above: Order Comment: Reaso n for Exam Medication monitoring encounter Performed By: #### C BC, POOJA, LIPASE #### [address] Neutrophils/100 WBC (Bld) 38.6 % Normal . [facility] [place] [facility] Comment on above: Order Comment: Reaso n for Exam Medication monitoring encounter Performed By: #### C BC, POOJA, LIPASE #### [address] NRBC% 0.0 /100{WBC} Normal 0-0.5 [facility] [place] [facility] Comment on above: Order Comment: Reaso n for Exam Medication monitoring encounter Performed By: #### C BC, POOJA, LIPASE #### [address] Platelet mean volume (Bld) [Entitic vol] 11.1 fL High 6.6-10.1 [facility] [place] [facility] Comment on above: Order Comment: Reaso n for Exam Medication monitoring encounter Performed By: #### C BC, POOJA, LIPASE #### [facility] [address] WBC (Bld) [#/Vol] 9.2 10*3/uL Normal 4.1-10.5 [facility] Comment on above: Order Comment: Reaso n for Exam Medication monitoring encounter Performed By: #### C BC, POOJA, LIPASE #### [facility] [address] [place] [id number] [facility] Basophils (Bld) [#/Vol] 0.756668429 10*3/uL Normal 0.0-0.2 10*3/uL [employer] Other Basophils/100 WBC (Bld) 0.500 % . % N [employer] Other Eosinophils (Bld) [#/Vol] 0.752185867 10*3/uL High 0.0-0.45 10*3/uL [employer] Other Eosinophils/100 WBC (Bld) 6.100 % . % [employer] Other Erythrocyte distribution width (RBC) [Ratio] 13.600 % Normal 12.0-14.8 % [employer] Other Hematocrit (Bld) [Volume fraction] 47.400 % Normal 38.8-50.0 % [employer] Other Hemoglobin (Bld) [Mass/Vol] 15.243639 g/dL Normal 13.0-17.0 g/dL [employer] Other Lymphocytes (Bld) [#/Vol] 4.287378829 10*3/uL Normal 1.00-4.8 10*3/uL [employer] Other Lymphocytes/100 WBC (Bld) 46.500 % . % [employer] Other MCH (RBC) [Entitic mass] 30.2000 pg Normal 27.5-35.2 pg [employer] Other MCV (RBC) [Entitic vol] 92.3000 fL Normal 83.5-101 fL [employer] Other Monocytes (Bld) [#/Vol] 0.766738028 10*3/uL Normal 0.0-0.8 10*3/uL [employer] Other Monocytes/100 WBC (Bld) 8.300 % . % [facility] [employer] Other Neutrophils (Bld) [#/Vol] 3.720984491 10*3/uL Normal 1.8-7.7 10*3/uL [employer] Other Neutrophils/100 WBC (Bld) 38.600 % . % [employer] Other Platelet mean volume (Bld) [Entitic vol] 11.1000 fL High 6.6-10.1 fL [employer] Other WBC (Bld) [#/Vol] 9.572952457 10*3/uL Normal 4.1 -10.5 10*3/uL [employer] Other Complete Blood Count Auto Diff 9.2 10*3/uL Normal 4.1-10.5 10*3/uL [employer] Other Complete Blood Count Auto Diff 32.7 g/dL Normal 32.5-35.6 g/dL [employer] Other Complete Blood Count Auto Diff 0.0 /100{WBC} Normal 0-0.5 /100{WBC} [employer] Other Complete Blood Count Auto Di ffOrdered By: Maribeth Vuong on 07-15-2022 Platelets (Bld) [#/Vol] 236 10*3/uL Normal 150-450 [facility] [place] [facility] Comment on above: Order Comment: Reaso n for Exam Medication monitoring encounter Performed By: #### C BC, POOJA, LIPASE #### [address] RBC (Bld) [#/Vol] 5.13 10*6/uL Normal 3.90-5.60 [facility] Comment on above: Order Comment: Reaso n for Exam Medication monitoring encounter Performed By: #### C BC, POOJA, LIPASE #### [facility] [address] ER URINE PROFILEon 3 Bilirubin Ql (U) Negative Normal NEGATIVE [facility] Comment on above: Performed By: #### E RUR ####[facility] [address] [place] [address]Dr. Keymera David Clarity (U) CLEAR Normal CLEAR [facility] Comment on above: Performed By: #### E RUR ####[facility] [address] [place], [place] [address]Dr. Yilan David Color (U) LT. YELLOW Normal YELLOW [facility] Comment on above: Performed By: #### E RUR ####[facility] [address] [place], [place] [address]Dr. Sydney David ERUAHD A micrscopic examination will be performed if indicated. Normal [facility] Comment on above: Performed By: #### E RUR ####[facility] [address] [place], [place] [address]Dr. Yilan David Glucose Ql (U) Negative Normal NEGATIVE The [facility] Comment on above: Performed By: #### E RUR ####[facility] [address] [place], [place] [address]Dr. Yilan David Hemoglobin Ql (U) Negative Normal NEGATIVE The [facility] Comment on above: Performed By: #### E RUR ####[facility] [address] [place], [place] [address]Dr. Yilan David Ketones Ql (U) Negative Normal NEGATIVE The [facility] Comment on above: Performed By: #### E RUR ####[facility] [address] [place], [place] [address]Dr. Yilan David LEUKOCYTES Negative Normal NEGATIVE [facility] Comment on above: Performed By: #### E RUR ####[facility] [address] [place] [address]Dr. Sydney David Nitrite Ql (U) Negative Normal NEGATIVE The [facility] Comment on above: Performed By: #### E RUR ####[facility] [address] [place] [address]Dr. Sydney David pH (U) 5.5 [pH] Normal 5-9 [facility] Comment on above: Performed By: #### E RUR ####[facility] [address] [place], [place] [address]Dr. Sydney David SPEC GRAVITY 1.010 Normal 1.005-<=1.0 25 [facility] Comment on above: Performed By: #### E RUR ####[facility] [address] [place], [place] [address]Dr. Sydney David UA PROTEIN Negative Normal NEGATIVE/ TRACE [facility] Comment on above: Performed By: #### E RUR ####[facility] [address] [place], [place] [address]Dr. Sydney David UR MICRO IND NOT INDICATED Normal The [facility] Comment on above: Performed By: #### E RUR ####[facility] [address] [place], [place] [address]Dr. Sydney David Urobilinogen Qn (U) 0.2 {Johan'U}/dL Normal 0.2 - 1. 0 [facility] Comment on above: Performed By: #### E RUR ####[facility] [address]rgks[address] [place], [place] [address]Dr. Sydney Frankie Eosinophils Auto (Bld) [#/Vo l]Ordered By: Maribeth Vuong on 07-15-2022 Eosinophils (Bld) [#/Vol] 0.6 10*3/uL 0.0-0.45 [facility] [place] [facility] Eosinophils/100 WBC Auto (Bl d)Ordered By: Maribeth Vuong on 07-15-2022 Eosinophils/100 WBC (Bld) 6.1 % . [facility] [place] [facility] Erythrocyte distribution wid th Auto (RBC) [Ratio]Ordered By: Maribeth Vuong on 07-15-2022 Erythrocyte distribution width (RBC) [Ratio] 13.6 % 12.0-14.8 [facility] [place] [facility] Hematocrit Auto (Bld) [Volum e fraction]Ordered By: Maribeth Vuong on 07-15-2022 Hematocrit (Bld) [Volume fraction] 47.4 % 38.8-50.0 [facility] [place] [facility] Hemoglobin [Mass/volume] in BloodOrdered By: Maribeth Vuong on 07-15-2022 Hemoglobin (Bld) [Mass/Vol] 15.5 g/dL 13.0-17.0 [facility] [place] [facility] Leukocytes [#/volume] correc gris for nucleated erythrocytes in Blood by Automated counOrdered By: Maribeth Vuong on 07-15-2022 WBC corrected for nucl RBC Auto (Bld) [#/Vol] 9.2 10*3/uL 4.1-10.5 [facility] [place] [facility] Lipaseon 07-15-2022 Lipase [Catalytic activity/Vol] 80.0 U/L Normal 11.0-82.0 [facility] [place] [facility] Comment on above: Order Comment: Reaso n for Exam Generalized abdominal pain;Slow transit constipation;Medicat Reason for Exam Generalized abdominal pain;Medication monitoring encounter NOT FASTING. JKW Result Comment: PERF ORMED BY: [place] [id number] PATHOLOGIST [employer] ALEM GARCIA M.D. Performed By: #### C BC, POOJA, LIPASE #### [address] Lipase [Catalytic activity/Vol] 80.97314 U/L Normal 11.0-82.0 U/L [employer] Other Lipase [Enzymatic activity/v olume] in Serum or PlasmaOrdered By: Maribeth Vuong on 07-15-2022 Lipase [Catalytic activity/Vol] 80.0 U/L 11.0-82.0 [facility] [place] [facility] Lymphocytes Auto (Bld) [#/Vo l]Ordered By: Maribeth Vuong on 07-15-2022 Lymphocytes (Bld) [#/Vol] 4.3 10*3/uL 1.00-4.8 [facility] [place] [facility] Lymphocytes/100 WBC Auto (Bl d)Ordered By: Maribeth Vuong on 07-15-2022 Lymphocytes/100 WBC (Bld) 46.5 % . [facility] [place] [facility] MCH Auto (RBC) [Entitic mass ]Ordered By: Maribeth Vuong on 07-15-2022 MCH (RBC) [Entitic mass] 30.2 pg 27.5-35.2 [facility] [place] [facility] MCHC Auto (RBC) [Mass/Vol]Or dered By: Maribeth Vuong on 07-15-2022 MCHC (RBC) [Mass/Vol] 32.7 g/dL 32.5-35.6 [facility] MCV Auto (RBC) [Entitic vol] Ordered By: Maribeth Vuong on 07-15-2022 MCV (RBC) [Entitic vol] 92.3 fL 83.5-101 F [facility] Monocytes Auto (Bld) [#/Vol] Ordered By: Maribeth Vuong on 07-15-2022 Monocytes (Bld) [#/Vol] 0.8 10*3/uL 0.0-0.8 [facility] [place] [facility] Monocytes/100 WBC Auto (Bld) Ordered By: Maribeth Vuong on 07-15-2022 Monocytes/100 WBC (Bld) 8.3 % . [facility] Neutrophils Auto (Bld) [#/Vo l]Ordered By: Maribeth Vuong on 07-15-2022 Neutrophils (Bld) [#/Vol] 3.6 10*3/uL 1.8-7.7 [facility] [place] [facility] Neutrophils/100 WBC Auto (Bl d)Ordered By: Maribeth Vuong on 07-15-2022 Neutrophils/100 WBC (Bld) 38.6 % . [facility] Nucleated erythrocytes [Pres ence] in Blood by Automated countOrdered By: Maribeth Vuong on 07-15-2022 Nucleated RBC Auto Ql (Bld) 0.0 /100{WBC} 0-0.5 [facility] PROF CHEM 8 (BAS METB)on Anion gap [Moles/Vol] 13.3 mmol/L Normal Th e [facility] Comment on above: Performed By: #### B MP #### [facility] [address] [place] [address] [address] Sydney David Calcium [Mass/Vol] 9.1 mg/dL Normal 8.5-10.1 [facility] Comment on above: Performed By: #### B MP #### [facility] [address] [place] [address] [address] Sydney David Chloride [Moles/Vol] 102 mmol/L Normal 98-107 [facility] Comment on above: Performed By: #### B MP #### [facility] [address] [place] [address] Dr. Sydney David CO2 [Moles/Vol] 27.2 mmol/L Normal 21.0-32.0 [facility] Comment on above: Performed By: #### B MP #### [facility] [address] [place] [address] Dr. Sydney David Creatinine [Mass/Vol] 1.08 mg/dL Normal 0.70-1.30 [facility] Comment on above: Performed By: #### B MP #### [facility] [address] [place] [address] Dr. Sydney David EGFR-AF IRANIAN >60 Normal >=60 [facility] Comment on above: Performed By: #### B MP #### [facility] [address] [place] [address] Dr. Sydney David EGFR-NON AF IRANIAN >60 Normal >=60 [facility] Comment on above: Performed By: #### B MP #### [facility] [address] [place] [address] Dr. Sydney David Glucose [Mass/Vol] 116 mg/dL Critically high 74-106 [facility] Comment on above: Performed By: #### B MP #### [facility] [address] [place] [address] Dr. Sydney David Potassium [Moles/Vol] 3.5 mmol/L Normal 3.5-5.1 [facility] Comment on above: Performed By: #### B MP #### [facility] [address] [place] [address] Dr. Sydney David Sodium [Moles/Vol] 139 mmol/L Normal 136-145 [facility] Comment on above: Performed By: #### B MP #### [facility] [address] [place] [address] [address] Sydney David Urea nitrogen [Mass/Vol] 12.0 mg/dL Normal 7.0-18.0 [facility] Comment on above: Performed By: #### B MP #### [facility] [address] [place] [address] [address] Sydney David Urea nitrogen/Creatinine [Mass ratio] 11.1 mg/mg Normal [facility] Comment on above: Performed By: #### B MP #### [facility] [address] [place] [address] [address] Sydney David Platelet mean volume Auto (B ld) [Entitic vol]Ordered By: Maribeth Vuong on 07-15-2022 Platelet mean volume (Bld) [Entitic vol] 11.1 fL 6.6-10.1 [facility] [place] [facility] WBC Auto (Bld) [#/Vol]Ordere d By: Maribeth Vuong on 07-15-2022 WBC (Bld) [#/Vol] 9.2 10*3/uL 4.1-10.5 [facility] XR KUBon 07-15-2022 XR KUB [facility] [place] [address] XRay Report Signed Patient: Neal Irene MR#: [id number] : 1980 Acct:[id number] Age/Sex: 41 / M ADM Date: 07/15/22 Loc: [facility] Room: Type: [facility] CLI Attending Dr: Maribeth Vuong DO Copies to: Maribeth Vuong DO Ordering Provider: Maribeth Vuong DO Date of Service: 07/15/22 XR/XR KUB: Generalized abdominal pain KUB: CLINICAL INFORMATION: Epigastric and left lower quadrant abdominal pain with constipation and diarrhea COMPARISON: None FINDINGS: Suboptimal evaluation due to body habitus. No bowel obstruction or free air. No suspicious urinary tract calcifications. Hardware fixation is seen involving the lumbosacral spine. XR/XR KUB IMPRESSION: No acute process. Impression dictated by: Sonny Greer Jr., DMarylin07/15/2022 4:05 PM Dictation Location: [place] [address] Transcribed By: JIL 07/15/22 160 Dictated By: Sonny Greer Jr, DO 07/15/22 160 Signed By: 07/15/22 160 Normal [facility] Alanine aminotransferase [En zymatic activity/volume] in Serum or PlasmaOrdered By: Maribeth Vuong on 07-12-2022 ALT [Catalytic activity/Vol] 68 U/L 7-52 [facility] Albumin [Mass/volume] in Ser um or Plasma by Bromocresol green (BCG) dye binding methoOrdered By: Maribeth Vuong on 07-12-2022 Albumin BCG dye [Mass/Vol] 4.7 g/dL 3.5-5.7 [facility] Alkaline phosphatase [Enzyma tic activity/volume] in Serum or PlasmaOrdered By: Maribeth Vuong on 07-12-2022 ALP [Catalytic activity/Vol] 33 U/L 34-104 [facility] Aspartate aminotransferase [ Enzymatic activity/volume] in Serum or PlasmaOrdered By: Maribeth Vuong on 07-12-2022 AST [Catalytic activity/Vol] 29 U/L 13-39 [facility] Bilirubin.total [Mass/volume ] in Serum or PlasmaOrdered By: Maribeth Vuong on 07-12-2022 Bilirubin [Mass/Vol] 0.6 mg/dL 0.3-1.0 [facility] Calcium [Mass/volume] in Ser um or PlasmaOrdered By: Maribeth Vuong 07-12-2022 Calcium [Mass/Vol] 10.1 mg/dL 8.6-10.3 [facility] Carbon dioxide, total [Moles /volume] in Serum or PlasmaOrdered By: Maribeth Vuong on 07-12-2022 CO2 [Moles/Vol] 27.5 mmol/L 21.0-31.0 [facility] Chloride [Moles/volume] in S flash or PlasmaOrdered By: Maribeth Vuong on 07-12-2022 Chloride [Moles/Vol] 106 mmol/L 98-107 [facility] Cholesterol [Mass/volume] in Serum or PlasmaOrdered By: Maribeth Vuong on 07-12-2022 Cholesterol [Mass/Vol] 296 mg/dL 140-200 [facility] Comment on above: Chol less than 200 m g/dl low riskChol 201-239 mg/dl borderline riskChol 240 mg/dl and greater high risk Cholesterol in LDL Calc [Mas s/Vol]Ordered By: Maribeth Vuong on 07-12-2022 Cholesterol in LDL [Mass/Vol] 206 mg/dL 0-100 [facility] Comment on above: LDL ATP III CLASSIFI CATIONLDL less than 100 mg/dL OptimalLDL 100-129 mg/dL Near or above optimalLDL 130-159 mg/dL Borderline highLDL 160-189 mg/dL HighLDL greater than 189 mg/dL Very high Cholesterol in VLDL Calc [Ma ss/Vol]Ordered By: Maribeth Vuong on 07-12-2022 Cholesterol in VLDL [Mass/Vol] 53 mg/dL [facility] Comprehensive Metabolic Pane jenni 07-12-2022 Albumin [Mass/Vol] 4.7 g/dL Normal 3.5-5.7 [facility] Comment on above: Order Comment: PT FA STED 12 HOURS Reason for Exam Well adult exam;Lipid disorder;Medication monitoring encount Reason for Exam Lipid disorder Performed By: #### L IPID, PSAS W RFX, CMP #### [facility] [address] [place] [address] Albumin/Globulin [Mass ratio] 1.8 {ratio} Normal [facility] Comment on above: Order Comment: PT FA STED 12 HOURS Reason for Exam Well adult exam;Lipid disorder;Medication monitoring encount Reason for Exam Lipid disorder Performed By: #### L IPID, PSAS W RFX, CMP #### [facility] [address] [place] [id number] [place] ALP [Catalytic activity/Vol] 33 U/L Low 34-104 [facility] Comment on above: Order Comment: PT FA STED 12 HOURS Reason for Exam Well adult exam;Lipid disorder;Medication monitoring encount Reason for Exam Lipid disorder Performed By: #### L IPID, PSAS W RFX, CMP #### [facility] [address] [place] [id number] [place] ALT [Catalytic activity/Vol] 68 U/L High 7-52 [facility] Comment on above: Order Comment: PT FA STED 12 HOURS Reason for Exam Well adult exam;Lipid disorder;Medication monitoring encount Reason for Exam Lipid disorder Performed By: #### L IPID, PSAS W RFX, CMP #### [facility] [address] Anion gap [Moles/Vol] 11.8 mmol/L Normal 6.0-15.0 [facility] Administration Comment on above: Order Comment: PT FA STED 12 HOURS Reason for Exam Well adult exam;Lipid disorder;Medication monitoring encount Reason for Exam Lipid disorder Performed By: #### L IPID, PSAS W RFX, CMP #### [facility] [address] AST [Catalytic activity/Vol] 29 U/L Normal 13-39 [facility] Comment on above: Order Comment: PT FA STED 12 HOURS Reason for Exam Well adult exam;Lipid disorder;Medication monitoring encount Reason for Exam Lipid disorder Performed By: #### L IPID, PSAS W RFX, CMP #### [facility] [address] [place] [address] Bilirubin [Mass/Vol] 0.6 mg/dL Normal 0.3-1.0 [facility] [place] Comment on above: Order Comment: PT FA STED 12 HOURS Reason for Exam Well adult exam;Lipid disorder;Medication monitoring encount Reason for Exam Lipid disorder Performed By: #### L IPID, PSAS W RFX, CMP #### [facility] [address] Calcium [Mass/Vol] 10.1 mg/dL Normal 8.6-10.3 [facility] Comment on above: Order Comment: PT FA STED 12 HOURS Reason for Exam Well adult exam;Lipid disorder;Medication monitoring encount Reason for Exam Lipid disorder Performed By: #### L IPID, PSAS W RFX, CMP #### [facility] [address] Chloride [Moles/Vol] 106 mmol/L Normal 98-107 [facility] [place] Comment on above: Order Comment: PT FA STED 12 HOURS Reason for Exam Well adult exam;Lipid disorder;Medication monitoring encount Reason for Exam Lipid disorder Performed By: #### L SOLOMON PSAS W RFX, CMP #### [facility] [address] CO2 [Moles/Vol] 27.5 mmol/L Normal 21.0-31.0 [facility] Comment on above: Order Comment: PT FA STED 12 HOURS Reason for Exam Well adult exam;Lipid disorder;Medication monitoring encount Reason for Exam Lipid disorder Performed By: #### L SOLOMON PSAS W RFX, CMP #### [facility] [address] [place] [address] Creatinine [Mass/Vol] 0.96 mg/dL Normal 0.70-1.30 [facility] Comment on above: Order Comment: PT FA STED 12 HOURS Reason for Exam Well adult exam;Lipid disorder;Medication monitoring encount Reason for Exam Lipid disorder Performed By: #### L SOLOMON PSAS W RFX, CMP #### [facility] [address] [place] [address] GFR/1.73 sq M.predicted MDRD (S/P/Bld) [Vol rate/Area] mL/min/{1.73_m2} [facility] Comment on above: Order Comment: PT FA STED 12 HOURS Reason for Exam Well adult exam;Lipid disorder;Medication monitoring encount Reason for Exam Lipid disorder Performed By: #### L SOLOMON PSAS W RFX, CMP #### [facility] [address] Globulin (S) [Mass/Vol] 2.6 g/dL Normal [facility] Comment on above: Order Comment: PT FA STED 12 HOURS Reason for Exam Well adult exam;Lipid disorder;Medication monitoring encount Reason for Exam Lipid disorder Performed By: #### L IPDANNIELLE, PSAS W RFX, CMP #### [facility] [address] Glucose [Mass/Vol] 106 mg/dL High 70-100 [facility] Comment on above: Order Comment: PT FA STED 12 HOURS Reason for Exam Well adult exam;Lipid disorder;Medication monitoring encount Reason for Exam Lipid disorder Result Comment: [facility] Glucose Reference Range is dependent on time and content of last meal. Glucose of more than 200 mg/dL in a nonstressed, ambulatory subject supports the diagnosis of Diabetes Mellitus. ADA recommended reference range Performed By: #### L IPID, PSAS W RFX, CMP #### [facility] [address] [place] [address] [place] Potassium [Moles/Vol] 4.3 mmol/L Normal 3.5-5.1 [facility] Comment on above: Order Comment: PT FA STED 12 HOURS Reason for Exam Well adult exam;Lipid disorder;Medication monitoring encount Reason for Exam Lipid disorder Performed By: #### L IPID, PSAS W RFX, CMP #### [facility] [address] Protein [Mass/Vol] 7.3 g/dL Normal 6.4-8.9 [facility] Comment on above: Order Comment: PT FA STED 12 HOURS Reason for Exam Well adult exam;Lipid disorder;Medication monitoring encount Reason for Exam Lipid disorder Performed By: #### L IPID, PSAS W RFX, CMP #### [facility] [address] [place] [address] [place] Sodium [Moles/Vol] 141 mmol/L Normal 136-145 [facility] Comment on above: Order Comment: PT FA STED 12 HOURS Reason for Exam Well adult exam;Lipid disorder;Medication monitoring encount Reason for Exam Lipid disorder Performed By: #### L IPID, PSAS W RFX, CMP #### [facility] [address] [place] [id number] [place] Urea nitrogen [Mass/Vol] 12 mg/dL Normal 7-25 [facility] Comment on above: Order Comment: PT FA STED 12 HOURS Reason for Exam Well adult exam;Lipid disorder;Medication monitoring encount Reason for Exam Lipid disorder Performed By: #### L IPID, PSAS W RFX, CMP #### [facility] [address] [place] [id number] [place] Creatinine [Mass/volume] in Serum or PlasmaOrdered By: Maribeth Vuong on 07-12-2022 Creatinine [Mass/Vol] 0.96 mg/dL 0.70-1.30 [facility] Globulin Calc (S) [Mass/Vol] Ordered By: Maribeth Woodymer on 07-12-2022 Globulin (S) [Mass/Vol] 2.6 g/dL [facility] Glucose [Mass/volume] in Ser um or PlasmaOrdered By: Maribeth Woodymer on 07-12-2022 Glucose [Mass/Vol] 106 mg/dL 70-100 [facility] Comment on above: ADA recommended refe rence rangeRandom Glucose Reference Range is dependent on time and content of last meal. Glucose of more than 200 mg/dL in a nonstressed, ambulatory subject supports the diagnosis of Diabetes Mellitus. Lipid Panelon 07-12-2022 Cholesterol [Mass/Vol] 296 mg/dL High 140-200 [facility] Comment on above: Order Comment: PT FA STED 12 HOURS Reason for Exam Well adult exam;Lipid disorder;Medication monitoring encount Reason for Exam Lipid disorder Result Comment: Chol less than 200 mg/dl low risk Chol 201-239 mg/dl borderline risk Chol 240 mg/dl and greater high risk Performed By: #### L IPID, PSAS W RFX, CMP #### [facility] [address] Cholesterol in HDL [Mass/Vol] 37 mg/dL Normal 29-71 [facility] Comment on above: Order Comment: PT FA STED 12 HOURS Reason for Exam Well adult exam;Lipid disorder;Medication monitoring encount Reason for Exam Lipid disorder Result Comment: HDL CHOL ATP-III CLASSIFICATION Cardiovascular Risk HDL > or equal to 60 mg/dL LOW HDL < 40 mg/dL HIGH Performed By: #### L IPID, PSAS W RFX, CMP #### [facility] [address] [place] [id number] [facility] Cholesterol.total/Patti sterol in HDL [Mass ratio] 8.0 {ratio} Normal <5.0 [facility] Comment on above: Order Comment: PT FA STED 12 HOURS Reason for Exam Well adult exam;Lipid disorder;Medication monitoring encount Reason for Exam Lipid disorder Result Comment: PERF ORMED BY: [facility] [address] [place] [address] PATHOLOGIST [employer] ALEM GARCIA M.D. Performed By: #### L IPID, PSAS W RFX, CMP #### [facility] [address] [place] [address] LDL Cholesterol,Calculated 206 mg/dL High 0-100 [facility] Comment on above: Order Comment: PT FA STED 12 HOURS Reason for Exam Well adult exam;Lipid disorder;Medication monitoring encount Reason for Exam Lipid disorder Result Comment: LDL ATP III CLASSIFICATION LDL less than 100 mg/dL Optimal LDL 100-129 mg/dL Near or above optimal LDL 130-159 mg/dL Borderline high LDL 160-189 mg/dL High LDL greater than 189 mg/dL Very high Performed By: #### L IPID, PSAS W RFX, CMP #### [facility] [address] [place] [address] Triglyceride w/Reflex 266 mg/dL High 0-149 [facility] Comment on above: Order Comment: PT FA STED 12 HOURS Reason for Exam Well adult exam;Lipid disorder;Medication monitoring encount Reason for Exam Lipid disorder Result Comment: TRIG ATP III CLASSIFICATION TRIG less than 150 mg/dL Normal TRIG 150-199 mg/dL Borderline high TRIG 200-500 mg/dL High TRIG greater than 500 mg/dL Very high Standard traceable to the Center for Disease Conrtrol and Prevention (CDC) test method. Performed By: #### L IPID, PSAS W RFX, CMP #### [facility] [address] [place] [address] VLDL CHOLESTEROL 53 mg/dL Normal [facility] Comment on above: Order Comment: PT FA STED 12 HOURS Reason for Exam Well adult exam;Lipid disorder;Medication monitoring encount Reason for Exam Lipid disorder Performed By: #### L IPID, PSAS W RFX, CMP #### [facility] [address] [place] [address] No Panel InformationOrdered By: Maribeth Vuong on 07-12-2022 Estimated GFR (CKD-EPI) > 60.0 mL/Min [facility] Creatinine Clearance (Chem N/A [facility] PSA Screen (Yearly) w/Reflex on 07-12-2022 PSA Screen (Yearly) w/Reflex 0.670 ng/mL Normal 0.000-4.000 [facility] Comment on above: Order Comment: Reaso n for Exam Well adult exam;Prostate cancer screening Is patient <50 yrs? Medicare does not pay <50.: Y What is the date of the last PSA Screen?: N/A Is Medicare the insurance?: N Did you verify eligibility (Dx Time) check TestViewGp: YES TO ALL Result Comment: PERF ORMED BY: [place] [id number] PATHOLOGIST [employer] ALEM GARCIA M.D. Performed By: #### L IPID, PSAS W RFX, CMP #### [address] Potassium [Moles/volume] in Serum or PlasmaOrdered By: Maribeth Vuong on 07-12-2022 Potassium [Moles/Vol] 4.3 mmol/L 3.5-5.1 [facility] Prostate specific Ag [Mass/v olume] in Serum or PlasmaOrdered By: Maribeth Vuong on 07-12-2022 Prostate specific Ag [Mass/Vol] 0.670 ng/mL 0.000-4.000 [facility] Protein [Mass/volume] in Ser um or PlasmaOrdered By: Maribeth Vuong on 07-12-2022 Protein [Mass/Vol] 7.3 g/dL 6.4-8.9 [facility] Serum or plasma albumin/glob ulin mass ratioOrdered By: Maribeth Vuong on 07-12-2022 Albumin/Globulin [Mass ratio] 1.8 {ratio} [facility] Serum or plasma anion gap de terminationOrdered By: Maribeth Vuong on 07-12-2022 Anion gap [Moles/Vol] 11.8 mmol/L 6.0-15.0 [facility] Serum or plasma high density lipoprotein (HDL) cholesterol measurementOrdered By: Maribeth Vuong on 07-12-2022 Cholesterol in HDL [Mass/Vol] 37 mg/dL 29-71 [facility] Comment on above: HDL CHOL ATP-III CLA SSIFICATION Cardiovascular RiskHDL > or equal to 60 mg/dL LOWHDL < 40 mg/dL HIGH Serum or plasma total choles terol/high density lipoprotein (HDL) cholesterol mass ratOrdered By: Maribeth Vuong on 07-12-2022 Cholesterol.total/Patti sterol in HDL [Mass ratio] 8.0 {ratio} <5.0 [facility] Sodium [Moles/volume] in Ser um or PlasmaOrdered By: Maribeth Vuong on 07-12-2022 Sodium [Moles/Vol] 141 mmol/L 136-145 [facility] Triglyceride [Mass/volume] i n Serum or PlasmaOrdered By: Maribeth Vuong on 07-12-2022 Triglyceride [Mass/Vol] 266 mg/dL 0-149 [facility] Comment on above: TRIG ATP III CLASSIF ICATIONTRIG less than 150 mg/dL NormalTRIG 150-199 mg/dL Borderline highTRIG 200-500 mg/dL High TRIG greater than 500 mg/dL Very highStandard traceable to the Center for Disease Conrtrol and Prevention (CDC) test method. Urea nitrogen [Mass/volume] in Serum or PlasmaOrdered By: Maribeth Vuong on 07-12-2022 Urea nitrogen [Mass/Vol] 12 mg/dL 10-29 [facility] XR LSPINE 2_3 VIEWSon 2022 XR LSPINE 2_3 VIEWS EXAMINATION: XR LSPINE 2_3 VIEWS HISTORY: Post-laminectomy syndrome ; chronic low back pain COMPARISON: XR L-spine 10/08/2014, 06/29/2021 FINDINGS: BONES: Posterior mechanical fusion of L5-S1 via pedicle screws and arturo right side (no fixation on left side). Intervertebral disc spacers at L5-S1. Posterior decompression of L5 and evidence of prior pars interarticularis fracture. DISC SPACES: No significant disc height narrowing, subluxation, or endplate abnormality. PARASPINOUS: Negative. No paraspinous abnormality is seen. OTHER: Skin surface markers project posterior to L4. IMPRESSION: 1. Stable mechanical fusion of L5-S1 along with intervertebral disc spacers and posterior decompression. 2. Skin surface markers are posterior to L4. Electronically authenticated by: DAMARIS ESPINOSA Date: 2022-07-02 14:57 Normal [facility] MRI PELVIS WO CONon 03-23-20 23 MRI PELVIS WO CON EXAMINATION: MRI PELVIS WO CON HISTORY: Bladder incontinence assessment ; fecal incontinence COMPARISON: No relevant comparison available. TECHNIQUE: A complete multi-planar examination was performed to optimize visualization of suspected pathology. Images were obtained both before and after administration of intravenous Dotarem. FINDINGS: PROSTATE: Normal. Normal size for a patient of this age. No focal lesion. LYMPH NODES: Normal. No adenopathy. BLADDER: Normal. No focal wall thickening or mass. BONES: Posterior mechanical stabilization L5-S1. Foraminal narrowing of lower lumbar spine. OTHER: Negative. IMPRESSION: 1. Unremarkable bladder and remaining pelvic contents. 2. Degenerative disc disease and foraminal narrowing of the visible lower lumbar spine. Please see today's MRI lumbar spine report for discussion of findings. Electronically authenticated by: DAMARIS ESPINOSA Date: 2022-06-27 09:45 Normal [facility] MRI LSPINE WO CONon 06-27-19 MRI LSPINE WO CON EXAMINATION: MRI LSPINE WO CON HISTORY: Lumbar radiculitis , urinary and fecal incontinence COMPARISON: 11/09/2014 outside institution TECHNIQUE: A variety of imaging planes and parameters were utilized for visualization of suspected pathology. FINDINGS: For the purposes of numbering, sagittal T2 image # 8 extends from the T11 vertebral body superiorly to the S3-S4 level inferiorly. PARASPINAL AREA: Normal with no visible mass. BONES: Interval posterior decompression and transpedicular fusion L5-S1. 4 mm anterolisthesis of L5 in relation to S1. 2.1 cm area of signal abnormality in the L5 vertebral body likely a hemangioma. No acute fracture or bone edema. CORD/CAUDA EQUINA: Normal caliber, contour, and signal intensity. DISC LEVELS: 12-L1: No significant disc/facet abnormality, spinal stenosis, or foraminal stenosis. L1-L2: No significant disc/facet abnormality, spinal stenosis, or foraminal stenosis. L2-L3: 2 mm retrolisthesis of L2 on L3. Moderate disc space narrowing and disc desiccation. Posterior subligamentous disc herniation with superior migration best seen on sagittal image #8 extending posteriorly 3 mm with superior migration measuring 7 mm. No central or foraminal stenosis L3-L4: Moderate disc space narrowing and disc desiccation. No disc bulge or herniation. No central or foraminal stenosis L4-L5: Moderate disc space narrowing and disc desiccation. Posterior central annular tear. Area of soft tissue signal posterior left paracentral measuring 6.8 x 5.2 mm on axial image 27. I favor a disc herniation of the extrusion type. No central or foraminal stenosis L5-S1: 4 mm anterolisthesis of L5 on S1. Moderate to severe disc space narrowing and disc desiccation. Central bulge. No central or foraminal stenosis IMPRESSION: Degenerative changes with disc herniations at L2-L3 and L4-L5 as detailed above No central canal or neural foraminal stenosis Electronically authenticated by: RENE LAUREN Date: 2022-06-26 15:24 Normal [facility] XR lumbar spine AP/LAT/FLX/E XTon 01-08-2021 XR lumbar spine AP/LAT/FLX/EXT [facility] [employer] Other XR lumbar spine AP/LAT/FLX/EXT [facility] [employer] Other XR lumbar spine AP/LAT/FLX/EXT [address] [place] [address] [employer] Other XR lumbar spine AP/LAT/FLX/[place] [address] [employer] Other XR lumbar spine AP/LAT/FLX/EXT XRay Report [employer] Other XR lumbar spine AP/LAT/FLX/EXT Signed [employer] Other XR lumbar spine AP/LAT/FLX/EXT Patient: Neal Irene MR#: [id number] [employer] Other XR lumbar spine AP/LAT/FLX/EXT 206 [employer] Other XR lumbar spine AP/LAT/FLX/EXT : 1980 Acct:[id number] [employer] Other XR lumbar spine AP/LAT/FLX/EXT Age/Sex: 40 / M ADM Date: 01/08/21 [employer] Other XR lumbar spine AP/LAT/FLX/EXT Loc: [facility] Room: Type: REG CLI [employer] Other XR lumbar spine AP/LAT/FLX/EXT Attending Dr: Charles Solares MD [employer] Other XR lumbar spine AP/LAT/FLX/EXT Ordering Provider: Charles Solares MD [employer] Other XR lumbar spine AP/LAT/FLX/EXT Date of Service: 01/08/21 [employer] Other XR lumbar spine AP/LAT/FLX/EXT XR/XR lumbar spine AP/LAT/FLX/EXT: Other spondylosis with radiculopathy, [employer] Other XR lumbar spine AP/LAT/FLX/EXT lumbar region [employer] Other XR lumbar spine AP/LAT/FLX/EXT Copies to: Charles Solares MD [employer] Other XR lumbar spine AP/LAT/FLX/EXT Lumbar spine 01/08/2021. [employer] Other XR lumbar spine AP/LAT/FLX/EXT CLINICAL DATA: Low back pain. [employer] Other XR lumbar spine AP/LAT/FLX/EXT FINDINGS: 4 standing views of the lumbar spine were obtained including lateral views in the [employer] Other XR lumbar spine AP/LAT/FLX/EXT neutral, flexion, and extension positions. This examination is compared with a prior study 04/14/2019. [employer] Other XR lumbar spine AP/LAT/FLX/EXT There are stable postsurgical changes related to lumbosacral spinal fusion. There is also stable [employer] Other XR lumbar spine AP/LAT/FLX/EXT anterior malalignment of L5 on S1. Mild posterior malalignment of L2 on L3 is noted. Overall [employer] Other XR lumbar spine AP/LAT/FLX/EXT vertebral alignment does not significantly change with limited flexion or limited extension. Disc [employer] Other XR lumbar spine AP/LAT/FLX/EXT space narrowing is identified. Minimal degenerative changes are seen. [employer] Other XR lumbar spine AP/LAT/FLX/EXT XR/XR lumbar spine AP/LAT/FLX/EXT [employer] Other XR lumbar spine AP/LAT/FLX/EXT IMPRESSION: Stable postsurgical changes and mild vertebral malalignment at the lumbosacral junction. [employer] Other XR lumbar spine AP/LAT/FLX/EXT Mild posterior malalignment of L2 on L3. No instability with limited flexion or extension. Disc [employer] Other XR lumbar spine AP/LAT/FLX/EXT space narrowing and minimal degenerative changes. [employer] Other XR lumbar spine AP/LAT/FLX/EXT Impression dictated by: Jude Stock Jr., M.D.01/08/2021 2:59 PM [employer] Other XR lumbar spine AP/LAT/FLX/EXT Dictation Location: [place] [address] [employer] Other XR lumbar spine AP/LAT/FLX/EXT Transcribed By: JIL 01/08/21 [facility] [employer] Other XR lumbar spine AP/LAT/FLX/EXT Dictated By: Jude Stock Jr, MD 01/08/21 [facility] [employer] Other XR lumbar spine AP/LAT/FLX/EXT Signed By: [employer] Other XR lumbar spine AP/LAT/FLX/EXT 01/08/21 [facility] [employer] Other MADONNAOVdary 06-09-2018 CNOV Office Visit (NSFRVW ) NEAL IRENE ([id number]) 1980 M Date Time Provider Department 06/09/18 3:40 PM PHI RENE NSFRVW During your visit today, we recorded the following information about you: Temperature Pulse Blood pressure Weight 98.8 degrees 85/minute 136/84 108.9 kg Height 1.778 m Phi Rene MD 06/09/2018 5:08 PM Signed CC : Patient presents with a chief complaint of low back pain and upper back pain HPI : Mr. Irene is a 37 year old male with complaints of above. He had fractured his back in October of 2014. He went to stand up, couldn't stand. He went to a number of different doctors. Was dx'd with L5 fx. Had surgery by Dr. Robbie Wakefield, [facility] in [place]. He felt that he was better in bed, but the pain never got better. He had difficulty with bowel control before the surgery. After this was fixed but he seems to be having issues again. April 01, 2018, he had an episode of excruciating pain. Went to the hospital because he couldn't feel anything from the waist down. After about 10 days, he went back to work the best he could. Currently, pain in low back and upper back (between shoulder blades). Pain that shoots into the buttock, posterior thigh to back of the knee on the L > R. This happens every 12 - 15 steps. Ann helped this a bit but now he can't afford this. He takes hydrocodone 5/325, muscle relaxer, tylenol, celebrex. He has tried PT. In 2016 was the last time he tried this because his pain was increasing. He has tried injections. He tried 4. The last one, he had a very bad experience and will not go through this again. Aggravating the pain is bending, lifting, sudden movements. Laying down improves the pain. Being flat improves the pain. He does get a lot of numbness and tingling in the hands, occasional neck pain. Denies weakness. ROS: See chart. Past Medical, family and social history are on the chart and have been reviewed by me. No changes. Current Medications : Current Outpatient Medications: celecoxib (CELEBREX) 200 mg capsule Take 200 mg by mouth twice daily. Disp: Rfl: acetaminophen (TYLENOL 8 HOUR ORAL) Take by mouth. Disp: Rfl: orphenadrine citrate (NORFLEX ORAL) Take by mouth. Disp: Rfl: HYDROcodone-acetamino phen (NORCO) 5-325 mg per tablet Take 1 tablet by mouth every 8 hours as needed. Disp: Rfl: No current facility-administered medications for this visit. All meds are on the chart and have been reviewed by me. No changes. Allergies : ALLERGIES No Known Allergies All meds are on the chart and have been reviewed by me. No changes. EXAM : General Apparance : Alert,NAD HENT : Normocephalicears normal NECKsoft and no JVD noted Eyes : PERRL,EOMI Reflexes : normal Gait : steady coordinated Heel walk and toe walk wnl Strength : normal and symmetric Detailed Strength: Right Hip Flexion : 5/5. Left Hip Flexion : 5/5. Right Dorsiflexion : 5/5. Left Dorsiflexion : 5/5. Right Plantar Flexion : 5/5. Left Plantar Flexion : 5/5. Assessment : S/p lumbar L TLIF March of 2015 Continued pain Cages eroding into bone Plan : Per Dr. 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 surgeons for second opinions Pt is desperate with decreased QOL and difficulty at work MRI XR and CT reviewed Cage slight posterior migration and subsidence into superior endplate Wide laminectomy at L5 R side only pedicle screws Possible non-union Mild facet degeneration at adjacent levels AP Non-union with instr failure, consider revision fusion decompression Removing cages may be hazardous, rec postero lateral fusion with bilateral screws and revision decompression on Left Pt will review his options and opinions Phi Rene MD Referring Provider: SELF [200] Allergies As of Date: 06/09/2018 (No Known Allergies) Date Reviewed: 06/09/2018 Reviewed by: Amelia Cervantes Ma - Fully Assessed Reason for Visit: New Patient [172] Primary Visit Diagnosis:Lumbosacral spondylosis with radiculopathy [M47.27] Prescriptions as of 06/09/2018 Sig: CELECOXIB 200 MG CAPSULE Take 200 mg by mouth twice da* TYLENOL 8 HOUR ORAL Take by mouth. NORFLEX ORAL Take by mouth. HYDROCODONE 5 MG-ACETAMINOPHE* Take 1 tablet by mouth every * Problem List As Of Date: 06/09/2018 (None) Encounter Status:Closed by PHI RENE MD on 06/09/18 Normal [facility] PROGRESSon 06-09-2018 Protein mass conc HNO ID: [id number] Author: Phi Rene Service: ? Author Type: Physician Type: Progress Notes Filed: 06/09/2018 5:08 PM Note Text: CC : Patient presents with a chief complaint of low back pain and upper back pain HPI : Mr. Irene is a 37 year old male with complaints of above. He had fractured his back in October of 2014. He went to stand up, couldn't stand. He went to a number of different doctors. Was dx'd with L5 fx. Had surgery by Dr. Robbie Wakefield, [facility] in [place]. He felt that he was better in bed, but the pain never got better. He had difficulty with bowel control before the surgery. After this was fixed but he seems to be having issues again. April 01, 2018, he had an episode of excruciating pain. Went to the hospital because he couldn't feel anything from the waist down. After about 10 days, he went back to work the best he could. Currently, pain in low back and upper back (between shoulder blades). Pain that shoots into the buttock, posterior thigh to back of the knee on the L > R. This happens every 12 - 15 steps. Ann helped this a bit but now he can't afford this. He takes hydrocodone 5/325, muscle relaxer, tylenol, celebrex. He has tried PT. In 2016 was the last time he tried this because his pain was increasing. He has tried injections. He tried 4. The last one, he had a very bad experience and will not go through this again. Aggravating the pain is bending, lifting, sudden movements. Laying down improves the pain. Being flat improves the pain. He does get a lot of numbness and tingling in the hands, occasional neck pain. Denies weakness. ROS: See chart. Past Medical, family and social history are on the chart and have been reviewed by me. No changes. Current Medications : Current Outpatient Medications: celecoxib (CELEBREX) 200 mg capsule Take 200 mg by mouth twice daily. Disp: Rfl: acetaminophen (TYLENOL 8 HOUR ORAL) Take by mouth. Disp: Rfl: orphenadrine citrate (NORFLEX ORAL) Take by mouth. Disp: Rfl: HYDROcodone-acetamino phen (NORCO) 5-325 mg per tablet Take 1 tablet by mouth every 8 hours as needed. Disp: Rfl: No current facility-administered medications for this visit. All meds are on the chart and have been reviewed by me. No changes. Allergies : ALLERGIES No Known Allergies All meds are on the chart and have been reviewed by me. No changes. EXAM : General Apparance : Alert,NAD HENT : Normocephalicears normal NECKsoft and no JVD noted Eyes : PERRL,EOMI Reflexes : normal Gait : steady coordinated Heel walk and toe walk wnl Strength : normal and symmetric Detailed Strength: Right Hip Flexion : 5/5. Left Hip Flexion : 5/5. Right Dorsiflexion : 5/5. Left Dorsiflexion : 5/5. Right Plantar Flexion : 5/5. Left Plantar Flexion : 5/5. Assessment : S/p lumbar L TLIF March of 2015 Continued pain Cages eroding into bone Plan : Per Dr. 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 surgeons for second opinions Pt is desperate with decreased QOL and difficulty at work MRI XR and CT reviewed Cage slight posterior migration and subsidence into superior endplate Wide laminectomy at L5 R side only pedicle screws Possible non-union Mild facet degeneration at adjacent levels AP Non-union with instr failure, consider revision fusion decompression Removing cages may be hazardous, rec postero lateral fusion with bilateral screws and revision decompression on Left Pt will review his options and opinions Phi Rene MD Normal [facility] ED Note-Physicianon 04-07-19 19 ED Note-Physician Basic Information Time Seen: May SERRANO, Abdelrahman Merchant 04/01/2018 11:17 Chief Complaint Back pain was bending down to light wood burner and pulled something. Hx of back problems and surgeries. Took two [place], flexeril, celebrex prior to coming. Needs another surgery for back. History of Present Illness 37-year-old white male presents emergency room with his and complaints of worsening lower back pain after bending over to light his heater in his shop. Patient has had prior back surgery by Dr. Sen in [place] March 14, 2015. Patient states he has been having increased paresthesia almost a vibrating feeling in his back pocket on the right side for several weeks. He also takes Lyrica for sciatic shooting pains down the left leg which has helped significantly those been more prevalent than this new vibration feeling. No medications prior to arrival he denies any bowel or bladder dysfunction associated with this symptom. Review of Systems Unless otherwise stated in this report or unable to obtain because of patient's clinical or mental status as evidenced by the medical record. Physical Exam Vitals & Measurements T: 37.1 ?C (Oral) HR: 110(Peripheral) RR: 16 BP: 138/85 SpO2: 98% HT: 175 cm WT: 110 kg BMI: 35.92 General: Alert and oriented, No acute distress, unomfortable in in wheelchair room 15 Eye: Pupils are equal, round and reactive to light, Extraocular movements are intact. HENT: Normocephalic. No Pharyngeal Swelling or Tonsillar Enlargement, Nose Patent, no discharge, Neck: Supple, Non-tender, No jugular venous distention No Cervical Lymphadenopathy.. Respiratory: Respirations are non-labored, Symmetrical chest wall expansion, No chest wall tenderness, no wheezing rhonchi rales or rubs noted.. Cardiovascular: Normal rate, Regular rhythm, Good pulses equal in all extremities. Gastrointestinal: Soft, Non-tender, Non-distended, Normal bowel sounds. Musculoskeletal: Normal range of motion with the exception of lower lumbar region leaning towards the left of his wheelchair, Normal strength. No neuro muscular deficit to the lower extremities he does have radicular pain with straight leg raising bilaterally good internal and external rotation of the hips. Neurologic: Alert, Oriented, Normal sensory, Normal motor function. Cognition and Speech: Oriented, Speech clear and coherent. Psychiatric: Cooperative, Anxious mood & affect. Integumentary: Warm, Dry, [place] [facility] Decision Making X-rays did not demonstrate any acute process and no hardware failure no fractures noted. Assessment/Plan Lumbosacral pain Orders: acetaminophen-oxycodo ne, 2 tab(s), Tab, Oral, Once, Stop date 04/01/18 12:37:00 EST, STAT, Start date 04/01/18 12:37:00 EST ibuprofen, 600 mg = 1 tab(s), Oral, q8hr, with food or milk, # 30 tab(s), Refills(s) 0 orphenadrine, 100 mg = 1 tab(s), Oral, BID, No Driving, X 7 day(s), # 14 tab(s), Refills(s) 0 predniSONE, 0 = 1 -, Oral, As Directed, Take 4 tabs by mouth daily x3 days, 3 tabs daily x3 days, 2 tabs daily x3 days, then 1 tab daily x3 days., # 30 tab(s), Refills(s) 0 XR Spine Lumbosacral Minimum 4 Views Medications Administered Given ketorolac 60 mg/2 mL Injection, 60 mg, IntraMuscular orphenadrine 30 mg/mL Inj, 60 mg, IntraMuscular Disposition Plan Patient Discharge Condition Stable Discharge Prescription List Prescriptions ibuprofen 600 mg Tab, 600 mg= 1 tab(s), Oral, q8hr orphenadrine 100 mg ER Tab, 100 mg= 1 tab(s), Oral, BID predniSONE 10 mg Tab, 1 -, Oral, As Directed Follow-up With When Contact Information RENE WASSIL In 3 days 04/04/2018 EST [address] [place] [address]- Business (1) Additional Instructions: Call tomorrow for recheck before the weekend. Ice only to area x 20 mins every couple hours x 3 days and then may alternate with moist warm heat back and forth in same fashion. Off work up to 3 days if needed. Prednisone and ibuprofen and muscle relaxer as prescribed, return if you lose the inability to control your bowel or bladder or dysfunction of the lower extremities Patient Education Radicular Pain Back Pain, Adult Attestation Dr Li has been informed about evaluation and treatment of patient during this visit. This report was transcribed using voice recognition software. Every effort was made to ensure accuracy, however, inadvertently computerized pierogi maker mistakes may be present. Patient was treated and evaluated by the physician assistant passenger locomotive engineer. The attending physician was in the emergency department at all times and supervised care. The case was discussed with the attending physician and diagnostics were reviewed as needed Problem List/Past Medical History Ongoing No qualifying data Historical No qualifying data Medications Inpatient Percocet 325 mg-5 mg Tab, 2 tab(s), Oral, Once Home acetaminophen, 1000 mg, Oral, BID acetaminophen-hydroco done 325 mg-5 mg oral tablet, 1 tab(s), Oral, TID, PRN cannabis sativa extract CeleBREX 200 mg Cap, 200 mg= 1 cap(s), Oral, BID cyclobenzaprine 10 mg Tab, 10 mg= 1 tab(s), Oral, BID, PRN ibuprofen 600 mg Tab, 600 mg= 1 tab(s), Oral, q8hr Lyrica 150 mg Cap, 150 mg= 1 cap(s), Oral, BID orphenadrine 100 mg ER Tab, 100 mg= 1 tab(s), Oral, BID predniSONE 10 mg Tab, 1 -, Oral, As Directed Allergies No Known Allergies Social History Alcohol - Denies Alcohol Use, 04/01/2018 Current, 04/01/2018 Substance Abuse - Denies Substance Abuse, 04/01/2018 Current, 04/01/2018 Tobacco - Denies Tobacco Use, 04/01/2018 Never (less than 100 in lifetime) Tobacco Use:., 04/01/2018 Lab Results No qualifying data available. Diagnostic Results XR Spine Lumbosacral Minimum 4 Views 04/01/18 12:12:00 NEGATIVE: No fracture, subluxation or other acute abnormality Read By: Abdelrahman Olvera PA-C 04/01/18 12:39:59 IMPRESSION: 1. POSTOPERATIVE CHANGES IN THE LUMBAR SPINE DETAILED IN BODY OF REPORT. 2. MINIMAL GRADE 1 SPONDYLOLISTHESIS AT THE L5/S1 LEVEL. 3. NO ACUTE FRACTURE OR ACUTE BONE INJURY INVOLVING THE LUMBAR SPINE. 4. OTHERWISE, NEGATIVE LUMBOSACRAL SPINE SERIES. CLINICAL HISTORY: REMOTE LUMBAR SPINE SURGERY, PATIENT WITH LOW BACK PAIN COMPARISONS: None available. FINDINGS: Routine 6 views of the lumbar spine demonstrate postoperative changes consisting of laminectomies at the L5 and S1 levels with concomitant posterior fusion of the L5 and S1 vertebra. Pedicle screws in right third transfixing the right side of the L5 and S1 vertebra. There are interbody prostheses at the L5/S1 level. Also, there is a grade 1 spondylolisthesis at the L5/S1 level. Remainder of the lumbar spine appears unremarkable. No acute fracture. Signed By: Andreas Cordova MD [facility] Comment on above: Result Comment: Elec tronically Signed By: Abdelrahman Olvera PA-C\.br\Date and Time Signed: 04/01/18 12:55 EST\.br\Electronically Co-Signed By: Lashay Li DO\.br\Date and Time Co-Signed: 04/07/18 16:20 EST Coding Summary.on 04-02-2018 Coding Summary. CODING DATE: 04/02/2018 FINAL [facility] STATUS: Home (Routine DC) PAYOR: Commercial Insurance APC DESCRIPTION 5522 Level 2 Imaging without Contrast ADMIT DX: REASON FOR VISIT DX: M54.5 Low back pain FINAL DX: PRINCIPAL: M54.5 Low back pain SECONDARY: M53.3 Sacrococcygeal disorders, not elsewhere classified Z79.899 Other terminal operations supervisor (current) drug therapy PYMT PROC APC STAT DESCRIPTION DOCTOR NAME DATE NOTE: The code number assigned matches the documented diagnosis and / or procedure in the patient's chart. However, the narrative phrase printed from the coding software may appear abbreviated, or result in slightly different terminology. Coded By: Laila Mcghee Date Saved: 04/02/2018 11:01 am Normal [facility] ED Clinical Summaryon 2017 ED Clinical Summary [place] [id number] ED Clinical Summary Person Information Name: NEAL IRENE/[place] Age: 37 Years : 1980 12:00 AM Sex: Male Language: Yakut PCP: RENE MORRELL DO Marital Status: Visit Id: Visit Reason: Back pain; BACKPAIN Speciality: Acuity: 4 Enc Type: Emergency Med Service: Emergency Arrival: 04/01/2018 11:05 AM Discharge: 04/01/2018 1:00 PM LOS: 000 01:55 Checkin: 04/01/2018 11:05 AM Checkout: 04/01/2018 1:00 PM Dispo Type: Home (Routine DC) EVENTS: Event Name Event Status Request Date/Time Start Date/Time Complete Date/Time Arrive Complete 04/01/2018 11:05 AM 04/01/2018 11:05 AM 04/01/2018 11:05 AM Document Home Meds Request 04/01/2018 11:05 AM Triage Complete 04/01/2018 11:05 AM 04/01/2018 11:21 AM 04/01/2018 11:21 AM Bed Assign Complete 04/01/2018 11:17 AM 04/01/2018 11:17 AM 04/01/2018 11:[address] Exam Complete 04/01/2018 11:17 AM 04/01/2018 11:17 AM 04/01/2018 11:17 AM RN Exam Complete 04/01/2018 11:17 AM 04/01/2018 11:29 AM 04/01/2018 11:29 AM Registration Complete 04/01/2018 11:17 AM 04/01/2018 11:51 AM 04/01/2018 11:[address] Exam Complete 04/01/2018 11:19 AM 04/01/2018 11:19 AM 04/01/2018 11:19 AM Meds Admin Complete 04/01/2018 11:35 AM 04/01/2018 11:43 AM X-Ray Complete 04/01/2018 11:35 AM 04/01/2018 11:44 AM 04/01/2018 12:03 PM Reg Complete Request 04/01/2018 11:51 AM Wet Read Request 04/01/2018 12:03 PM Meds Admin Complete 04/01/2018 12:38 PM 04/01/2018 12:55 PM Discharge Complete 04/01/2018 12:41 PM 04/01/2018 1:01 PM 04/01/2018 1:01 PM Transfer Complete 04/01/2018 1:01 PM 04/01/2018 1:01 PM 04/01/2018 1:01 PM ADDRESS: [address] [place] [id number] PHYS DOC NOTES: MEDICAL INFORMATION: Prescriptions Given: Prescription Display ibuprofen (ibuprofen 600 mg Tab) 600 mg = 1 tab(s), Oral, q8hr, with food or milk, # 30 tab(s), Refills(s) 0 orphenadrine (orphenadrine 100 mg ER Tab) 100 mg = 1 tab(s), Oral, BID, No Driving, X 7 day(s), # 14 tab(s), Refills(s) 0 predniSONE (predniSONE 10 mg Tab) 0 = 1 -, Oral, As Directed, Take 4 tabs by mouth daily x3 days, 3 tabs daily x3 days, 2 tabs daily x3 days, then 1 tab daily x3 days., # 30 tab(s), Refills(s) 0 Home Meds Display acetaminophen 1,000 mg, Oral, BID, Refills(s) 0 acetaminophen-hydroco done (acetaminophen-hydroc odone 325 mg-5 mg oral tablet) 1 tab(s), Oral, TID as needed for pain, Refill(s) 0 cannabis sativa extract Refill(s) 0 celecoxib (CeleBREX 200 mg Cap) 200 mg = 1 cap(s), Oral, BID, Refills(s) 0 cyclobenzaprine (cyclobenzaprine 10 mg Tab) 10 mg = 1 tab(s), Oral, BID, PRN for spasm, # 30 tab(s), Refills(s) 0 pregabalin (Lyrica 150 mg Cap) 150 mg = 1 cap(s), Oral, BID, Refills(s) 0 PATIENT EDUCATION INFORMATION: Instructions: Radicular Pain; Back Pain, Adult Follow up: With: Address: When: RENE MORRELL [address] [place] [address] [facility] () In 3 days 04/04/2018 Comments: Call tomorrow for recheck before the weekend. Ice only to area x 20 mins every couple hours x 3 days and then may alternate with moist warm heat back and forth in same fashion. Off work up to 3 days if needed. Prednisone and ibuprofen and muscle relaxer as prescribed, return if you lose the inability to control your bowel or bladder or dysfunction of the lower extremities DIAGNOSIS: Lumbosacral pain Normal [facility] ED Patient Education Noteon 04-01-2018 ED Patient Education Note Back Pain, Adult Low back pain is very common. About 1 in 5 people have back pain.?The cause of low back pain is rarely dangerous. The pain often gets better over time.?About half of people with a sudden onset of back pain feel better in just 2 weeks. About 8 in 10 people feel better by 6 weeks. CAUSES Some common causes of back pain include: ? Strain of the muscles or ligaments supporting the spine. ? Wear and tear (degeneration) of the spinal discs. ? Arthritis. ? Direct injury to the back. DIAGNOSIS Most of the time, the direct cause of low back pain is not known.?However, back pain can be treated effectively even when the exact cause of the pain is unknown.?Answering your caregiver's questions about your overall health and symptoms is one of the most accurate ways to make sure the cause of your pain is not dangerous. If your caregiver needs more information, he or she may order lab work or imaging tests (X-rays or MRIs).?However, even if imaging tests show changes in your back, this usually does not require surgery. HOME CARE INSTRUCTIONS For many people, back pain returns.?Since low back pain is rarely dangerous, it is often a condition that people can learn to manage?on their own. ? Remain active. It is stressful on the back to sit or pipe fitter supervisor maintenance one place. Do not sit, drive, or pipe fitter supervisor maintenance one place for more than 30 minutes at a time. Take short walks on level surfaces as soon as pain allows.?Try to increase the length of time you walk each day. ? Do not stay in bed.?Resting more than 1 or 2 days can delay your recovery. ? Do not avoid exercise or work.?Your body is made to move.?It is not dangerous to be active, even though your back may hurt.?Your back will likely heal faster if you return to being active before your pain is gone. ? Pay attention to your body when you ?bend and lift. Many people have less discomfort?when lifting if they bend their knees, keep the load close to their bodies,?and avoid twisting. Often, the most comfortable positions are those that put less stress on your recovering back. ? Find a comfortable position to sleep. Use a firm mattress and lie on your side with your knees slightly bent. If you lie on your back, put a pillow under your knees. ? Only take tluq-vil-plcevid or prescription medicines as directed by your caregiver. Qtqt-hhv-jvdysov medicines to reduce pain and inflammation are often the most helpful.?Your caregiver may prescribe muscle relaxant drugs.?These medicines help dull your pain so you can more quickly return to your normal activities and healthy exercise. ? Put ice on the injured area. ? Put ice in a plastic bag. ? Place a towel between your skin and the bag. ? Leave the ice on for 15-20 minutes, 03-04 times a day for the first 2 to 3 days. After that, ice and heat may be alternated to reduce pain and spasms. ? Ask your caregiver about trying back exercises and gentle massage. This may be of some benefit. ? Avoid feeling anxious or stressed.?Stress increases muscle tension and can worsen back pain.?It is important to recognize when you are anxious or stressed and learn ways to manage it.?Exercise is a great option. SEEK MEDICAL CARE IF: ? You have pain that is not relieved with rest or medicine. ? You have pain that does not improve in 1 week. ? You have new symptoms. ? You are generally not feeling well. SEEK IMMEDIATE MEDICAL CARE IF: ? You have pain that radiates from your back into your legs. ? You develop new bowel or bladder control problems. ? You have unusual weakness or numbness in your arms or legs. ? You develop nausea or vomiting. ? You develop abdominal pain. ? You feel faint. Document Released: 03/24/2006 Document Revised: 09/22/2012 Document Reviewed: 07/26/2014 ExitCare? Patient Information ?2015 [employer]. This information is not intended to replace advice given to you by your health care provider. Make sure you discuss any questions you have with your health care provider. Family Medicine Radicular Pain Radicular pain in either the arm or leg is usually from a bulging or herniated disk in the spine. A piece of the herniated disk may press against the nerves as the nerves exit the spine. This causes pain which is felt at the tips of the nerves down the arm or leg. Other causes of radicular pain may include: ? Fractures. ? Heart disease. ? Cancer. ? An abnormal and usually degenerative state of the nervous system or nerves (neuropathy). Diagnosis may require CT or MRI scanning to determine the primary cause. Nerves that start at the neck (nerve roots) may cause radicular pain in the outer shoulder and arm. It can spread down to the thumb and fingers. The symptoms vary depending on which nerve root has been affected. In most cases radicular pain improves with conservative treatment. Neck problems may require physical therapy, a neck collar, or cervical traction. Treatment may take many weeks, and surgery may be considered if the symptoms do not improve. Conservative treatment is also recommended for sciatica. Sciatica causes pain to radiate from the lower back or buttock area down the leg into the foot. Often there is a history of back problems. Most patients with sciatica are better after 2 to 4 weeks of rest and other supportive care. Short term bed rest can reduce the disk pressure considerably. Sitting, however, is not a good position since this increases the pressure on the disk. You should avoid bending, lifting, and all other activities which make the problem worse. Traction can be used in severe cases. Surgery is usually reserved for patients who do not improve within the first months of treatment. Only take bbhi-jjh-ddxmosx or prescription medicines for pain, discomfort, or fever as directed by your caregiver. Narcotics and muscle relaxants may help by relieving more severe pain and spasm and by providing mild sedation. Cold or massage can give significant relief. Spinal manipulation is not recommended. It can increase the degree of disc protrusion. Epidural steroid injections are often effective treatment for radicular pain. These injections deliver medicine to the spinal nerve in the space between the protective covering of the spinal cord and back bones (vertebrae). Your caregiver can give you more information about steroid injections. These injections are most effective when given within two weeks of the onset of pain. You should see your caregiver for follow up care as recommended. A program for neck and back injury rehabilitation with stretching and strengthening exercises is an important part of management. SEEK IMMEDIATE MEDICAL CARE IF: ? You develop increased pain, weakness, or numbness in your arm or leg. ? You develop difficulty with bladder or bowel control. ? You develop abdominal pain. Document Released: 05/01/2005 Document Revised: 06/15/2012 Document Reviewed: 07/17/2009 ExitCare? Patient Information ?2015 [employer]. This information is not intended to replace advice given to you by your health care provider. Make sure you discuss any questions you have with your health care provider. Normal [facility] ED Patient Summaryon 12-26-2 018 ED Patient Summary [address] [id number] Patient Discharge Instructions Person Information Name: NEAL IRENE Age: 37 Years Arrival Date: 04/01/2018 11:05 AM Discharge Diagnosis: Lumbosacral pain Primary Care Physician: RENE MORRELL DO Provider Information Primary Provider: Lashay Li DO Advanced Decorating Inspector:Abdelrahman Olvera PA-C The exam and treatment you received in the Emergency Department were for an urgent problem and are not intended as complete care. It is important that you follow up with a doctor, nurse practitioner, or physician?s assistant passenger locomotive engineer for ongoing care. If your symptoms become worse or you do not improve as expected and you are unable to reach your usual health care provider, you should return to the Emergency Department. We are available 24 hours a day. NEAL IRENE has been given the following list of patient education materials, prescriptions and follow-up instructions: Follow-up Instructions: With: Address: When: RENE MORRELL [address] [place] [address] [facility] () In 3 days 04/04/2018 Comments: Call tomorrow for recheck before the weekend. Ice only to area x 20 mins every couple hours x 3 days and then may alternate with moist warm heat back and forth in same fashion. Off work up to 3 days if needed. Prednisone and ibuprofen and muscle relaxer as prescribed, return if you lose the inability to control your bowel or bladder or dysfunction of the lower extremities In the event that this physician does not participate in your insurance network, please consult with your insurance company to find a nearby participating provider. Patient Education Materials: Radicular Pain; Back Pain, Adult A MESSAGE TO ALL PATIENTS REGARDING OPIOIDS PRESCRIPTION OPIOIDS: WHAT YOU NEED TO KNOW Prescription opioids can be used to help relieve cojvmxib-kx-tesggk pain and are often prescribed following a surgery or injury, or for certain health conditions. These medications can be an important part of the treatment but also come with serious risks. It is important to work with your healthcare provider to make sure you are getting the safest, most effective care. WHAT ARE THE RISKS AND SIDE EFFECTS OF OPIOID USE? Prescription opioids carry serious risks of addiction and overdose, especially with prolonged use. An opioid overdose, often marked by slowed breathing, can cause sudden . The use of prescription opioids can have a number of side effects as well, even when taken as directed: ? Tolerance?meaning you might need to take more of the medication for the same pain relief ? Physical dependence?meaning you have symptoms of withdrawal when a medication is stopped ? Increased sensitivity to pain ? Constipation ? Nausea, vomiting, and dry mouth ? Sleepiness and dizziness ? Confusion ? Depression ? Low levels of testosterone that can result in lower sex drive, energy, and strength ? Itching and sweating RISKS ARE GREATER WITH: ? History of drug misuse, substance use disorder, or overdose ? Mental health conditions (such as depression or anxiety) ? Sleep apnea ? Older age (65 years and older) ? Avoid alcohol while taking prescription opioids. Also, unless specifically advised by your health care provider, medications to avoid include: ? Benzodiazepines (such as Xanax or Valium) ? Muscle relaxants (such as Soma or Flexeril) ? Hypnotics (such as Ambien or Lunesta) ? Other prescription opioids KNOW YOUR OPTIONS Talk to your health care provider about ways to manage your pain that don?t involve prescription opioids. Some of these options may actually work better and have fewer risks and side effects. Options may include: ? Pain relievers such as acetaminophen, ibuprofen, and naproxen ? Some medication that are also used for depression or seizures ? Physical therapy and exercise ? Cognitive behavioral therapy, a psychological, goal-directed approach, in which patients learn how to modify physical, behavioral, and emotional triggers of pain and stress. IF YOU ARE PRESCRIBED OPIOIDS FOR PAIN: ? Never take opioids in greater amounts or more often than prescribed. ? Follow up with your primary health care provider. o Work together to create a plan on how to manage your pain. o Talk about ways to help manage your pain that don?t involve prescription opioids. o Talk about any and all concerns and side effects. ? Help prevent misuse and abuse o Never sell or share prescription opioids. o Never use another person?s prescription opioids. ? Store prescription opioids in a secure place and out of reach of others (this may include visitors, children, friends, and family). ? Safely dispose of unused prescription opioids: Find your community drug take-back program or your pharmacy mail-back program, or flush them down the toilet, following guidance from the Food and Drug Administration (www.fda.gov/Drugs/Re sourcesForYou). ? Visit www.cdc.gov/drugoverd ose to learn about the risks of opioids abuse and overdose. ? If you believe you may be struggling with addiction, tell your health direct care provider and ask for guidance or call [employer] [employer] at 0-486-852-BIMA. v Source: [place] Department of Health and Human Services/Center for Disease Control & Prevention [facility] Medications Given: Medication Dose Route ketorolac 60.00 mg IntraMuscular Right Ventragluteal orphenadrine 60.00 mg IntraMuscular Left Ventragluteal acetaminophen-oxycodo ne 2.00 tab(s) Oral Medication Information: New Medications Printed Prescriptions ibuprofen (ibuprofen 600 mg Tab) 1 Tabs By Mouth every 8 hours. with food or milk. Refills: 0. orphenadrine (orphenadrine 100 mg ER Tab) 1 Tabs By Mouth 2 times a day for 7 Days. [address] D[address] Refills: 0. predniSONE (predniSONE 10 mg Tab) 1 Dose Separtor By Mouth As Directed. Take 4 tabs by mouth daily x3 days, 3 tabs daily x3 days, 2 tabs daily x3 days, then 1 tab daily x3 days.. Refills: 0. Medications to Continue with No Changes Other Medications acetaminophen 1,000 Milligram By Mouth 2 times a day. acetaminophen-hydroco done (acetaminophen-hydroc odone 325 mg-5 mg oral tablet) 1 Tabs By Mouth 3 times a day as needed as needed for pain. cannabis sativa extract celecoxib (CeleBREX 200 mg Cap) 1 Capsules By Mouth 2 times a day. cyclobenzaprine (cyclobenzaprine 10 mg Tab) 1 Tabs By Mouth 2 times a day as needed for spasm. pregabalin (Lyrica 150 mg Cap) 1 Capsules By Mouth 2 times a day. Comment: Pharmacy Information: Thank you for choosing [facility] Patient Education Materials: Radicular Pain Radicular pain in either the arm or leg is usually from a bulging or herniated disk in the spine. A piece of the herniated disk may press against the nerves as the nerves exit the spine. This causes pain which is felt at the tips of the nerves down the arm or leg. Other causes of radicular pain may include: ? Fractures. ? Heart disease. ? Cancer. ? An abnormal and usually degenerative state of the nervous system or nerves (neuropathy). Diagnosis may require CT or MRI scanning to determine the primary cause. Nerves that start at the neck (nerve roots) may cause radicular pain in the outer shoulder and arm. It can spread down to the thumb and fingers. The symptoms vary depending on which nerve root has been affected. In most cases radicular pain improves with conservative treatment. Neck problems may require physical therapy, a neck collar, or cervical traction. Treatment may take many weeks, and surgery may be considered if the symptoms do not improve. Conservative treatment is also recommended for sciatica. Sciatica causes pain to radiate from the lower back or buttock area down the leg into the foot. Often there is a history of back problems. Most patients with sciatica are better after 2 to 4 weeks of rest and other supportive care. Short term bed rest can reduce the disk pressure considerably. Sitting, however, is not a good position since this increases the pressure on the disk. You should avoid bending, lifting, and all other activities which make the problem worse. Traction can be used in severe cases. Surgery is usually reserved for patients who do not improve within the first months of treatment. Only take frjz-rwi-xdeveiu or prescription medicines for pain, discomfort, or fever as directed by your caregiver. Narcotics and muscle relaxants may help by relieving more severe pain and spasm and by providing mild sedation. Cold or massage can give significant relief. Spinal manipulation is not recommended. It can increase the degree of disc protrusion. Epidural steroid injections are often effective treatment for radicular pain. These injections deliver medicine to the spinal nerve in the space between the protective covering of the spinal cord and back bones (vertebrae). Your caregiver can give you more information about steroid injections. These injections are most effective when given within two weeks of the onset of pain. You should see your caregiver for follow up care as recommended. A program for neck and back injury rehabilitation with stretching and strengthening exercises is an important part of management. SEEK IMMEDIATE MEDICAL CARE IF: ? You develop increased pain, weakness, or numbness in your arm or leg. ? You develop difficulty with bladder or bowel control. ? You develop abdominal pain. Document Released: 05/01/2005 Document Revised: 06/15/2012 Document Reviewed: 07/17/2009 ExitCare? Patient Information ?2014 [employer]. This information is not intended to replace advice given to you by your health care provider. Make sure you discuss any questions you have with your health care provider. Back Pain, Adult Low back pain is very common. About 1 in 5 people have back pain.?The cause of low back pain is rarely dangerous. The pain often gets better over time.?About half of people with a sudden onset of back pain feel better in just 2 weeks. About 8 in 10 people feel better by 6 weeks. CAUSES Some common causes of back pain include: ? Strain of the muscles or ligaments supporting the spine. ? Wear and tear (degeneration) of the spinal discs. ? Arthritis. ? Direct injury to the back. DIAGNOSIS Most of the time, the direct cause of low back pain is not known.?However, back pain can be treated effectively even when the exact cause of the pain is unknown.?Answering your caregiver's questions about your overall health and symptoms is one of the most accurate ways to make sure the cause of your pain is not dangerous. If your caregiver needs more information, he or she may order lab work or imaging tests (X-rays or MRIs).?However, even if imaging tests show changes in your back, this usually does not require surgery. HOME CARE INSTRUCTIONS For many people, back pain returns.?Since low back pain is rarely dangerous, it is often a condition that people can learn to manage?on their own. ? Remain active. It is stressful on the back to sit or pipe fitter supervisor maintenance one place. Do not sit, drive, or pipe fitter supervisor maintenance one place for more than 30 minutes at a time. Take short walks on level surfaces as soon as pain allows.?Try to increase the length of time you walk each day. ? Do not stay in bed.?Resting more than 1 or 2 days can delay your recovery. ? Do not avoid exercise or work.?Your body is made to move.?It is not dangerous to be active, even though your back may hurt.?Your back will likely heal faster if you return to being active before your pain is gone. ? Pay attention to your body when you ?bend and lift. Many people have less discomfort?when lifting if they bend their knees, keep the load close to their bodies,?and avoid twisting. Often, the most comfortable positions are those that put less stress on your recovering back. ? Find a comfortable position to sleep. Use a firm mattress and lie on your side with your knees slightly bent. If you lie on your back, put a pillow under your knees. ? Only take injf-kyq-hxwoflt or prescription medicines as directed by your caregiver. Yuxl-ngt-oqhpvsw medicines to reduce pain and inflammation are often the most helpful.?Your caregiver may prescribe muscle relaxant drugs.?These medicines help dull your pain so you can more quickly return to your normal activities and healthy exercise. ? Put ice on the injured area. ? Put ice in a plastic bag. ? Place a towel between your skin and the bag. ? Leave the ice on for 15-20 minutes, 03-04 times a day for the first 2 to 3 days. After that, ice and heat may be alternated to reduce pain and spasms. ? Ask your caregiver about trying back exercises and gentle massage. This may be of some benefit. ? Avoid feeling anxious or stressed.?Stress increases muscle tension and can worsen back pain.?It is important to recognize when you are anxious or stressed and learn ways to manage it.?Exercise is a great option. SEEK MEDICAL CARE IF: ? You have pain that is not relieved with rest or medicine. ? You have pain that does not improve in 1 week. ? You have new symptoms. ? You are generally not feeling well. SEEK IMMEDIATE MEDICAL CARE IF: ? You have pain that radiates from your back into your legs. ? You develop new bowel or bladder control problems. ? You have unusual weakness or numbness in your arms or legs. ? You develop nausea or vomiting. ? You develop abdominal pain. ? You feel faint. Document Released: 03/24/2006 Document Revised: 09/22/2012 Document Reviewed: 07/26/2014 ExitCare? Patient Information ?2015 [employer]. This information is not intended to replace advice given to you by your health care provider. Make sure you discuss any questions you have with your health care provider. I, NEAL IRENE , have received the following patient education materials/instruction s and have verbalized understanding: Patient Education Materials: Radicular Pain; Back Pain, Adult Follow-up Instructions: With: Address: When: [address] [place] [place] [address] Business (1) In 3 days 04/04/2018 Comments: Call tomorrow for recheck before the weekend. Ice only to area x 20 mins every couple hours x 3 days and then may alternate with moist warm heat back and forth in same fashion. Off work up to 3 days if needed. Prednisone and ibuprofen and muscle relaxer as prescribed, return if you lose the inability to control your bowel or bladder or dysfunction of the lower extremities Prescriptions: [ibuprofen (ibuprofen 600 mg Tab)] [orphenadrine (orphenadrine 100 mg ER Tab)] [predniSONE (predniSONE 10 mg Tab)] Patient Signature Date Clinician/Nurse Signature Date 04/01/18 13:01:03 [facility] Progress Note-Nurseon 2017 Protein mass conc Patient: NEAL IRENE Age: 37 years Sex: Male : 1980 Associated Diagnoses: None Author: Dottie VALIENTE, Maria Fernanda Trejo Progress Note Pt states little relief from injections. Pt given percocet for pain. Pt is being driven home from ER by . Pt understands to follow up with PCP, or to return with any loss of bowel or bladder/ Pt understands prescription use, states he cannot take ibuprofen due to celebrex, pt refuses ibuprofen prescription at this time. Instructed on use of only norflex, and if taking norflex to stop taking flexeril. Patient wheeled out to car by . No further needs at this time. Normal [facility] XR Spine Lumbosacral Minimum 4 Viewson 04-01-2018 XR Spine Lumbosacral Minimum 4 Views Exam Date/Time: 04/01/2018 12:03 EST Reason for Exam: previous surgery;Pain, Non Traumatic Report IMPRESSION: 1. POSTOPERATIVE CHANGES IN THE LUMBAR SPINE DETAILED IN BODY OF REPORT. 2. MINIMAL GRADE 1 SPONDYLOLISTHESIS AT THE L5/S1 LEVEL. 3. NO ACUTE FRACTURE OR ACUTE BONE INJURY INVOLVING THE LUMBAR SPINE. 4. OTHERWISE, NEGATIVE LUMBOSACRAL SPINE SERIES. CLINICAL HISTORY: REMOTE LUMBAR SPINE SURGERY, PATIENT WITH LOW BACK PAIN COMPARISONS: None available. FINDINGS: Routine 6 views of the lumbar spine demonstrate postoperative changes consisting of laminectomies at the L5 and S1 levels with concomitant posterior fusion of the L5 and S1 vertebra. Pedicle screws in right third transfixing the right side of the L5 and S1 vertebra. There are interbody prostheses at the L5/S1 level. Also, there is a grade 1 spondylolisthesis at the L5/S1 level. Remainder of the lumbar spine appears unremarkable. No acute fracture. FINAL REPORT Dictated: 04/01/2018 12:36 pm Andreas Cordova MD Signed (Electronic Signature): 04/01/2018 12:36 pm Signed by: Andreas Cordova MD Transcribed by: DARSHAN Technologist: DEAN Normal [facility] Vital Signs Date Time Vital Sign Value Performing Clinician Facility 01-17-2023 09:00-0400 Body height 177.8 cm Maribeth Vuong Other [facility] Other 01-17-2023 09:00-0400 Body mass index (BMI) [Ratio] 39.17 kg/m2 Maribeth Vuong Other [facility] Other 01-17-2023 09:00-0400 Body temperature 97.7 [degF] Maribeth Vuong Other [facility] Other 01-17-2023 09:00-0400 Body weight 123.83 kg Maribeth Vuong Other [facility] Other 01-17-2023 09:00-0400 Diastolic blood pressure 78 mm[Hg] Maribeth Vuong Other [facility] Other 01-17-2023 09:00-0400 SaO2% (BldA) [Mass fraction] 98 % Maribeth Vuong Other [facility] Other 01-17-2023 09:00-0400 Systolic blood pressure 112 mm[Hg] Maribeth Vuong Other [facility] Other 12-18-2022 09:45-0400 Body height 177.8 cm Maribeth Vuong Other [facility] Other 12-18-2022 09:45-0400 Body mass index (BMI) [Ratio] 37.73 kg/m2 Maribeth Vuong Other [facility] Other 12-18-2022 09:45-0400 Body weight 119.3 kg Maribeth Vuong Other [facility] Other 12-18-2022 09:45-0400 Diastolic blood pressure 86 mm[Hg] Maribeth Vuong Other [facility] Other 12-18-2022 09:45-0400 Respiratory rate 18 /min Maribeth Vuong Other [facility] Other 12-18-2022 09:45-0400 SaO2% (BldA) [Mass fraction] 95 % Maribeth Vuong Other [facility] Other 12-18-2022 09:45-0400 Systolic blood pressure 126 mm[Hg] Maribeth Vuong Other [facility] Other 12-12-2022 08:00-0400 Body height 177.8 cm Maribeth Carolann Other [facility] Other 12-12-2022 08:00-0400 Body mass index (BMI) [Ratio] 37.73 kg/m2 Maribeth Carolann Other [facility] Other 12-12-2022 08:00-0400 Body temperature 98.5 [degF] Maribeth Vuong Other [facility] Other 12-12-2022 08:00-0400 Body weight 119.3 kg Maribeth Carolann Other [facility] Other 12-12-2022 08:00-0400 Diastolic blood pressure 102 mm[Hg] Maribeth Vuong Other [facility] Other 12-12-2022 08:00-0400 SaO2% (BldA) [Mass fraction] 96 % Maribeth Carolann Other [facility] Other 12-12-2022 08:00-0400 Systolic blood pressure 150 mm[Hg] Maribeth Vuong Other [facility] Other 09-26-2022 10:22-0400 Diastolic blood pressure 108 mm[Hg] DO Maribeth Vuong Work Phone: [facility] 09-26-2022 10:22-0400 Heart rate 74 /min DO Maribeth Vuong Work Phone: [facility] 09-26-2022 10:22-0400 Respiratory rate 16 /min DO Maribeth Vuong Work Phone: [facility] 09-26-2022 10:22-0400 SaO2% (BldA) [Mass fraction] 98 % DO Maribeth Vuong Work Phone: [facility] 09-26-2022 10:22-0400 Systolic blood pressure 156 mm[Hg] DO Maribeth Vuong Work Phone: [facility] 09-26-2022 08:26-0400 Body height 175.26 cm DO Maribeth Vuong Work Phone: [facility] 09-26-2022 08:26-0400 Body temperature 98.5 [degF] DO Maribeth Vuong Work Phone: [facility] 09-26-2022 08:26-0400 Body weight 113.39 kg DO Maribeth Vuong Work Phone: [facility] 09-11-2022 09:45-0400 Body height 177.8 cm Maribeth Carolann Other [facility] [employer] Other 09-11-2022 09:45-0400 Body mass index (BMI) [Ratio] 35.37 kg/m2 Maribeth Vuong Other [facility] Other 09-11-2022 09:45-0400 Body weight 111.81 kg Maribeth Vuong Other [facility] Other 09-11-2022 09:45-0400 Diastolic blood pressure 88 mm[Hg] Maribeth Vuong Other [facility] Other 09-11-2022 09:45-0400 Respiratory rate 18 /min Maribeth Vuong Other [facility] Other 09-11-2022 09:45-0400 SaO2% (BldA) [Mass fraction] 98 % Maribeth Vuong Other [facility] Other 09-11-2022 09:45-0400 Systolic blood pressure 142 mm[Hg] Maribeth Vuong Other [facility] Other 07-24-2022 10:30-0400 Body height 177.8 cm Igor Scovanner Other [facility] Other 07-24-2022 10:30-0400 Body mass index (BMI) [Ratio] 35.58 kg/m2 Igor Scovanner Other [facility] Other 07-24-2022 10:30-0400 Body weight 112.49 kg Igor Scovanner Other [facility] Other 07-24-2022 10:30-0400 Diastolic blood pressure 132 mm[Hg] Igor Scovanner Other [facility] Other 07-24-2022 10:30-0400 Systolic blood pressure 187 mm[Hg] Igor Scovanner Other [facility] Other 07-15-2022 12:15-0400 Body height 177.8 cm Maribeth Vuong Other [facility] Other 07-15-2022 12:15-0400 Body mass index (BMI) [Ratio] 35.58 kg/m2 Maribeth Vuong Other [facility] Other 07-15-2022 12:15-0400 Body temperature 98.1 [degF] Maribeth Vuong Other [facility] Other 04-10-2023 12:15-0400 Body weight 112.49 kg Maribeth Woodymer Other [facility] Other 07-15-2022 12:15-0400 Diastolic blood pressure 110 mm[Hg] Maribeth Woodymer Other [facility] Other 07-15-2022 12:15-0400 SaO2% (BldA) [Mass fraction] 97 % Maribeth Woodymer Other [facility] Other 07-15-2022 12:15-0400 Systolic blood pressure 156 mm[Hg] Maribeth Carolann Other [facility] Other 01-04-2022 12:15-0400 Body height 177.8 cm Maribeth Carolann Other [facility] Other 01-04-2022 12:15-0400 Body mass index (BMI) [Ratio] 34.39 kg/m2 Maribeth Woodymer Other [facility] Other 01-04-2022 12:15-0400 Body weight 108.73 kg Maribeth Carolann Other [facility] Other 01-04-2022 12:15-0400 Diastolic blood pressure 86 mm[Hg] Maribeth Carolann Other [facility] Other 01-04-2022 12:15-0400 Respiratory rate 18 /min Maribeth Carolann Other [facility] Other 01-04-2022 12:15-0400 SaO2% (BldA) [Mass fraction] 98 % Maribeth Vuong Other [facility] Other 01-04-2022 12:15-0400 Systolic blood pressure 136 mm[Hg] Maribeth Carolann Other [facility] Other 06-22-2021 10:00-0400 Body height 177.8 cm Maribeth Carolann Other [facility] Other 06-22-2021 10:00-0400 Body mass index (BMI) [Ratio] 34.16 kg/m2 Maribeth Carolann Other [facility] Other 06-22-2021 10:00-0400 Body weight 108 kg Maribeth Carolann Other [facility] Other 06-22-2021 10:00-0400 Diastolic blood pressure 78 mm[Hg] Maribeth Vuong Other [facility] Other 06-22-2021 10:00-0400 Respiratory rate 18 /min Maribeth Carolann Other [facility] Other 06-22-2021 10:00-0400 SaO2% (BldA) [Mass fraction] 95 % Maribeth Carolann Other [facility] Other 06-22-2021 10:00-0400 Systolic blood pressure 118 mm[Hg] Maribeth Vuong Other [facility] Other 03-08-2021 12:15-0500 Body height 177.8 cm Charles Solares Other [facility] Other 03-08-2021 12:15-0500 Body mass index (BMI) [Ratio] 33.72 kg/m2 Charles Solares Other [facility] Other 03-08-2021 12:15-0500 Body weight 106.6 kg Charles Solares Other [facility] Other 02-12-2021 11:00-0500 Body height 177.8 cm Maribeth Vuong Other [facility] Other 02-12-2021 11:00-0500 Body mass index (BMI) [Ratio] 33.37 kg/m2 Maribeth Vuong Other [facility] Other 02-12-2021 11:00-0500 Body temperature 98.3 [degF] Maribeth Vuong Other [facility] Other 02-12-2021 11:00-0500 Body weight 105.51 kg Maribeth Vuong Other [facility] Other 02-12-2021 11:00-0500 Diastolic blood pressure 88 mm[Hg] Maribeth Vuong Other [facility] Other 02-12-2021 11:00-0500 Respiratory rate 18 /min Maribeth Vuong Other [facility] Other 02-12-2021 11:00-0500 SaO2% (BldA) [Mass fraction] 99 % Maribeth Vuong Other [facility] Other 02-12-2021 11:00-0500 Systolic blood pressure 134 mm[Hg] Maribeth Vuong Other [facility] Other 02-01-2021 11:45-0400 Body height 177.8 cm Maribeth Vuong Other [facility] Other 02-01-2021 11:45-0400 Body mass index (BMI) [Ratio] 35.48 kg/m2 Maribeth Woodymer Other [facility] Other 02-01-2021 11:45-0400 Body temperature 98.2 [degF] Maribeth Woodymer Other [facility] Other 02-01-2021 11:45-0400 Body weight 112.18 kg Maribeth Woodymer Other [facility] Other 02-01-2021 11:45-0400 Diastolic blood pressure 86 mm[Hg] Maribeth Carolann Other [facility] Other 02-01-2021 11:45-0400 Respiratory rate 18 /min Maribeth Carolann Other [facility] Other 02-01-2021 11:45-0400 SaO2% (BldA) [Mass fraction] 97 % Maribeth Woodymer Other [facility] Other 02-01-2021 11:45-0400 Systolic blood pressure 136 mm[Hg] Maribeth Carolann Other [facility] Other Encounters Encounter Date Encounter Type Care Provider Facility Start: 03-13-2023 End: 03-13-2023 ambulatory Maribeth Woodymer Other [facility] Other Start: 03-13-2023 Telephone encounter [facility] Start: 02-05-2023 End: 02-05-2023 ambulatory Maribeth Vuong Other [facility] Other Start: 02-05-2023 Telephone encounter Maribeth Mer[facility] Start: 01-17-2023 End: 01-17-2023 ambulatory Maribeth Vuong Other [facility] Other Start: 01-17-2023 Encounter for genera l adult medical examination without abnormal findings Maribeth Vuong [facility] [place] Start: 01-17-2023 Periodic preventive med est patient 40-64yrs Maribeth Vuong [facility] Start: 12-18-2022 (Procedure) Short Maribeth Vuong [facility] [place] Start: 12-18-2022 End: 12-18-2022 ambulatory Maribeth Vuong Other [facility] Other Start: 12-12-2022 End: 12-12-2022 ambulatory Maribeth Vuong Other [facility] Other Start: 12-12-2022 Office outpatient visit 15 minutes Maribeth Carolann [facility] [place] Start: 12-05-2022 End: 12-05-2022 ambulatory Maribeth Vuong Other [facility] Other Start: 12-05-2022 Telephone encounter Maribeth Carolann [facility] Start: 09-28-2022 End: 09-28-2022 ambulatory Nash Cardenas Other [facility] Other Start: 09-28-2022 Telephone encounter Nash Cardenas [facility] Start: 09-26-2022 End: 09-26-2022 ambulatory Nash Cardenas Facility:[facility] Start: 09-26-2022 End: 09-26-2022 Admission to same day surgery center DO Maribeth Vuong Work Phone: [facility] Work Phone: Start: 09-26-2022 End: 09-26-2022 ambulatory DO Maribeth Vuong Work Phone: [facility] Work Phone: Start: 09-11-2022 (Procedure) Short Maribeth Vuong [facility] [place] Start: 09-11-2022 End: 09-11-2022 ambulatory Maribeth Vuong Other [facility] Other Start: 09-10-2022 End: 09-10-2022 ambulatory Maribeth Vuong Other [facility] Other Start: 09-10-2022 Telephone encounter Maribeth Mercer [facility] [place] Start: 09-03-2022 End: 09-03-2022 ambulatory NARENDRANATH LAKSHMIPATHY . Facility:[facility] Start: 08-20-2022 End: 08-20-2022 ambulatory Maribeth Vuong Facility:[facility] Start: 08-20-2022 End: 08-20-2022 ambulatory DO Maribeth Vuong Work Phone: [facility] Work Phone: Start: 08-20-2022 End: 08-20-2022 Patient encounter procedure DO Maribeth Vuong Work Phone: [facility] [address] Start: 08-16-2022 End: 08-17-2022 ambulatory NARENDRANATH LAKSHMIPATHY . Facility:[facility] Start: 08-02-2022 End: 08-02-2022 ambulatory Maribeth Vu[facility] Other Start: 08-02-2022 Telephone encounter Maribeth Mercer [facility] [place] Start: 07-30-2022 End: 07-30-2022 ambulatory NARENDRANATH LAKSHMIPATHY . Facility:[facility] Start: 07-24-2022 End: 07-24-2022 ambulatory Igor Orr Other [facility] Other Start: 07-24-2022 Office outpatient ne w 30 minutes Igor Orr [facility] Start: 07-23-2022 End: 07-24-2022 ambulatory NARENDRANATH LAKSHMIPATHY . Facility:[facility] Start: 07-16-2022 End: 07-16-2022 ambulatory Maribeth Vuong [facility] Other Start: 07-16-2022 Telephone encounter Maribeth [facility] [place] Start: 07-15-2022 Office outpatient visit 25 minutes Maribethwaldo Vuong [facility] [place] Start: 07-15-2022 Telephone encounter Maribeth [facility] [place] Start: 07-15-2022 End: 07-15-2022 ambulatory DO Maribeth Vuong Work Phone[facility] Other Start: 07-15-2022 End: 07-15-2022 Patient encounter procedure DO Maribeth Vuong Work Phone: [facility] Start: 07-12-2022 End: 07-12-2022 ambulatory Maribeth Teri Carolann Facility:[facility] Start: 07-12-2022 Encounter for genera l adult medical examination without abnormal findings Maribeth Teri Vuong [facility] Start: 07-12-2022 End: 07-12-2022 ambulatory DO Maribeth Vuong Work Phone: [facility] Work Phone: Start: 07-12-2022 End: 07-12-2022 Patient encounter procedure DO Maribeth Vuong Work Phone: [facility] [place] Work Phone: Start: 07-02-2022 End: 07-03-2022 ambulatory NARENDRANATH LAKSHMIPATHY . Facility:[facility] Start: 07-02-2022 End: 07-03-2022 ambulatory NARENDRANATH LAKSHMIPATHY . Facility:[facility] Start: 06-26-2022 End: 06-27-2022 ambulatory BRIT SCHUSTER . Facility:[facility] Start: 06-13-2022 End: 06-14-[address] JESSICA JOEL . Facility:[facility] Start: 03-14-2022 End: 03-15-[address] JESSICA JOEL . Facility:[facility] Start: 02-19-2022 End: 02-19-[address] JESSICA JOEL . Facility:[facility] Start: 02-07-2022 End: 02-08-[address] JESSICA JOEL . Facility:[facility] Start: 01-04-2022 End: 01-04-2022 ambulatory Maribeth Carolann Other [facility] Other Start: 01-04-2022 Encounter for genera l adult medical examination without abnormal findings Maribeth Vuong [facility] [place] Start: 01-04-2022 Periodic preventive med est patient 40-64yrs Maribeth Vuong [facility] Start: 12-13-2021 End: 12-14-[address] JESSICA JOEL . Facility:[facility] Start: 10-31-2021 End: 11-01-[address] JESSICA JOEL . Facility:[facility] Start: 10-03-2021 End: 10-04-2021 ambulatory BRIT SCHUSTER . Facility:[facility] Start: 09-29-2021 End: 09-29-2021 ambulatory MARIBETH VUONG Facility:[facility] Start: 08-17-2021 End: 08-17-2021 ambulatory Charles Solares Other [facility] Other Start: 08-17-2021 Telephone encounter [facility] [place] Start: 08-07-2021 End: 08-07-2021 ambulatory Charles Solares Other [facility] Other Start: 08-07-2021 Telephone encounter [facility] Start: 07-13-2021 End: 07-13-2021 ambulatory Maribeth Vuong Other [facility] Other Start: 07-13-2021 Telephone encounter Maribeth [facility] [place] Start: 07-09-2021 End: 07-09-2021 ambulatory Charles Hernandezer Other [facility] Other Start: 07-09-2021 Office outpatient visit 25 minutes Charles Hernandezer [facility] [place] Start: 06-22-2021 End: 06-22-2021 ambulatory Maribeth Vuong Other [facility] Other Start: 06-22-2021 Office outpatient visit 15 minutes Maribeth Vuong [facility] [place] Start: 06-06-2021 End: 06-06-2021 ambulatory Charles Hernandezer Other [facility] Other Start: 06-06-2021 Office outpatient visit 25 minutes Charles Davider [facility] [place] Start: 05-29-2021 End: 05-29-2021 ambulatory Maribeth Vuong Other [facility] Other Start: 05-29-2021 Telephone encounter Maribeth [facility] [place] Start: 05-22-2021 End: 05-22-2021 ambulatory Maribeth Vuong Other [facility] Other Start: 05-22-2021 Telephone encounter Maribeth [facility] [place] Start: 05-21-2021 End: 05-21-2021 ambulatory Maribeth Vuong Other [facility] Other Start: 05-21-2021 Telephone encounter Maribeth [facility] [place] Start: 05-08-2021 End: 05-08-2021 ambulatory Charles Hernandezer Other [facility] Other Start: 05-08-2021 Office outpatient visit 25 minutes Charles Felter [facility] [place] Start: 04-12-2021 End: 04-12-2021 ambulatory Charles Felter Other [facility] Other Start: 04-12-2021 Office outpatient visit 25 minutes Charles Hernandezer [facility] [place] Start: 03-08-2021 End: 03-08-2021 ambulatory Charles Solaers Other [facility] Other Start: 03-08-2021 Office outpatient visit 25 minutes Charles Hernandezer [facility] [place] Start: 02-28-2021 End: 02-28-2021 ambulatory Maribeth aCrolann Other [facility] Other Start: 02-28-2021 Telephone encounter [facility] [place] Start: 02-12-2021 End: 02-12-2021 ambulatory Maribeth Vuong Other [facility] Other Start: 02-12-2021 Office outpatient visit 15 minutes Maribeth Vuong [facility] [place] Start: 02-05-2021 Office outpatient visit 25 minutes Charles Hernandezer [facility] [place] Start: 02-01-2021 Office outpatient visit 15 minutes Maribeth Vuong [facility] [place] Start: 01-08-2021 Office outpatient visit 25 minutes Charles Felter [facility] [place] Start: 06-09-2018 End: 06-10-2018 Patient encounter procedure PHI RENE [facility] Start: 04-01-2018 End: 04-01-2018 Emergency department patient visit Lashay Li Facility:[facility] Procedures Date Procedure Procedure Detail Performing Clinician Start: 09-26-2022 Colonoscopy DO Maribeth Vuong Work Phone: Start: 07-15-2022 Diagnostic radiograp hy of abdomen DO Maribeth Vuong Work Phone: Plan of Treatment Date Care Activity Detail Author Start: 09-26-2022 [facility] Patient Education Hemorrhoids (DC) [facility] Work Phone: Immunizations Immunization Date Immunization Notes Care Provider Macrina brunson 12-07-2020 COVID-19 Vaccine Corey - Documentation Purposes Only Charles Solares Other [facility] Other 03-25-2019 Depo-Medrol 80 mg Charles lewis Other [facility] Other 12-11-2017 Kenalog -40 mg Charles Solares Other [facility] Other Payers Date Payer Category Payer Self-pay [id number] 1979 Unknown [id number] 2.16.84 [id number] 1979 Unknown [id number] 2.16.84 0.1.169223.3.579.2.593 1979 Unknown [id number] 2.16.84 0.1.346815.3.579.2.593 1979 Unknown [id number] 2.16.84 0.1.809258.3.579.2.593 1979 Unknown [id number] 2.16.84 0.1.412594.3.579.2.593 1979 Unknown [id number] 2.16.84 0.1.086500.3.579.2.593 1979 Unknown [id number] 2.16.84 0.1.630266.3.579.2.593 1979 Unknown [id number] 2.16.84 0.1.349848.3.579.2.593 1979 Unknown [id number] 2.16.84 0.1.999422.3.579.2.593 1979 Unknown [id number] 2.16.84 0.1.298425.3.579.2.593 1979 Unknown [id number] 2.16.84 0.1.491491.3.579.2.593 1979 Unknown [id number] 2.16.84 0.1.596766.3.579.2.593 1979 Unknown [id number] 2.16.84 0.1.547200.3.579.2.593 1979 Unknown [id number] 2.16.84 0.1.036365.3.579.2.593 1979 Unknown [id number] 2.16.84 0.1.614884.3.579.2.593 1979 Unknown [id number] 2.16.84 0.1.473238.3.579.2.593 1979 Unknown [id number] 2.16.84 0.1.750893.3.579.2.593 1960 Medicaid [id number] 1959 Unknown [id number] 1959 Unknown [id number] Blue Cross Blue Shield [id number] Unknown [facility] [id number] Unknown [id number] 2.16.8 40.1.698928.3.579.2.531 Unknown [id number] .16.8 40.1.996350.3.579.2.531 Unknown [id number] 2.16.8 40.1.558696.3.579.2.531 Unknown [id number] .16.8 40.1.487020.3.579.2.531 Social History Date Type Detail Facility Unknown if ever smoked [facility] Other Sex Assigned At Sex Assigned At Bir th [facility] Other Start: 04-13-2019 Tobacco smoking status NHIS Smoker (finding) [facility] Start: 1980 Sex Assigned At Male F [facility] Start: 09-26-2022 Tobacco smoking status NHIS Current some day smoker [facility] Goals Date Patient Goal Desired Activity /State Clinical Notes 01-08-2021 to 03-13-2023 Note Date & Type Note Facility 03-13-2023 Evaluation note Encounter Date Diagnosis Assessment Notes Mar, Primary osteoarthritis of both first carpometacarpal joints (ICD-10 - M18.0) [facility] Other 11-01-2023 Evaluation note* Encounter Date Diagnosis Assessment Notes Treatment Notes Treatment Clinical Notes Feb, Primary hypertension (ICD-10 - I10) [facility] Other 10-13-2023 Evaluation note* Encounter Date Diagnosis Assessment Notes Treatment Notes Treatment Clinical Notes Jan, Well adult exam (ICD-10 - Z00.00) 42-year-old male who has a couple chronic medical conditions mainly musculoskeletal issues with his chronic low back degeneration and disc disease. He is working with pain management on this and he is doing better after his most recent RFA. Patient does complain of erectile dysfunction and he will be tried on Viagra 50 mg daily. He is to let me know if this is not working well for him. Patient had lab work done 6 months ago that showed significantly elevated cholesterol and he discussed wanting to adjust his diet to help with it. Patient will be given time to adjust his diet we will recheck his labs next year to see how he is doing with his cholesterol. He may still need to go on cholesterol medication but will wait for the repeat cholesterol. Patient's blood pressure is doing exceptionally well. He is not due for other screening testing or examinations at this time. Jan, Lumbar degenerative disc disease (ICD-10 - M51.36) Jan, Lipid disorder (ICD-10 - E78.9) Jan, Chronic, continuous use of opioids (ICD-10 - F11.90) Jan, Primary hypertension (ICD-10 - I10) Jan, Erectile dysfunction due to diseases classified elsewhere (ICD-10 - N52.1) Jan, Screening for prostate cancer (ICD-10 - Z12.5) Jan, Medication monitoring encounter (ICD-10 - Z51.81) [facility] Other 09-13-2023 Evaluation note* Encounter Date Diagnosis Assessment Notes Treatment Notes Treatment Clinical Notes Dec, Primary osteoarthrit is of first carpometacarpal joint of left hand (ICD-10 - M18.12) [facility] Other 09-07-2023 Evaluation note* Encounter Date Diagnosis Assessment Notes Treatment Notes Treatment Clinical Notes Dec, Primary hypertension (ICD-10 - I10) Patient's blood pressure has been running high for some time now. Initially it was felt that this was related to his ongoing pain issues but even though he continues to have chronic pain we cannot ignore the fact that the blood pressure continues to be elevated both at home and at doctors offices. Because of this he will be placed losartan 50 mg with hydrochlorothiazide 12.5 mg. Potential side effects of the medication was discussed and patient is to take this daily and monitor his blood pressures 3-4 times weekly. Patient to follow-up as already scheduled in a month to reassess how he is doing. He is to call sooner if he has any issues with the medicine. [facility] Other 06-22-2023 Procedure [facility]06-07-2023 Evaluation note* Encounter Date Diagnosis Assessment Notes Treatment Notes Treatment Clinical Notes Sep, Primary osteoarthrit is of both first carpometacarpal joints (ICD-10 - M18.0) [facility] Other 04-19-2023 Evaluation note* Encounter Date Diagnosis Assessment Notes Treatment Notes Treatment Clinical Notes Jul, Abdominal pain (ICD-10 - R10.9) Continue Dicyclomine up 3 times a day Jul, Constipation (ICD-10 - K59.00) Recommended pt to start Metamucil and probiotic. Discussed increasing daily water intake. Jul, Rectal bleeding (ICD-10 - K62.5) Proceed with colonoscopy Jul, Weight loss (ICD-10 - R63.4) Jul, Change in bowel habits (ICD-10 - R19.4) With patient change in bowel habits with increasing constipation, hematochezia and amanda blood and accidents, recommendation for colonoscopy to rule out luminal etiologies made [facility] Other 04-18-2023 NoteCONSULTATION CONSULTATION DATE: 07/23/2022 TO: CHIEF COMPLAINT: Includes severe left sided low back pain, hip pain. HISTORY: Rates it as being 5-7/10 pain, sharp in character, increased with activities such as standing, walking and performing transitioning maneuvers. He feels most comfortable in the semi-recumbent position. He denies any change in bowel and bladder habits or new sensorimotor changes in his lower extremities. EXAM: His examination is notable for patient having no clinical radiculopathy or myelopathy involving his lower extremities on today's visit. He did have severe pain with lumbar facet loading maneuvers on the left side at L3-4, L4-5 with associated myofascial spasm. IMPRESSION: Patient with chronic pain secondary to post laminectomy syndrome, complicated by facet loading pain clinically on the left side at L3-4, L4-5 with associated myofascial spasm. RECOMMENDATIONS: Will obtain urine toxicology screen on today's visit. I have discontinued his Zonegran secondary to side effects. I have asked him to retrial Flexeril 10 mg pills, half a pill to one pill t.i.d. as tolerated, and to proceed with a left sided L3-4, L4-5 facet joint injection under fluoroscopic guidance. As part of providing excellent, safe, comprehensive care, the following was completed at our patient's visit: 1. A medication reconciliation and review to ensure accurate knowledge of current/active medications, including asking our patients to inform us about any [id number] medications or herbal remedies/nutritional supplements/alternative remedies. 2. A review to specifically ensure our patients have had annual screening for: elevated body mass index (BMI, see intake chart for exact total), tobacco use, screening for depression, and screening for unhealthy alcohol use. When screening is concerning, patients are provided with education and the specific recommendation to discuss the concerning health issue and treatment options with their primary care provider.[id number] Evaluation note * Encounter Date Diagnosis Assessment Notes Treatment Notes Treatment Clinical Notes Jul, Generalized abdominal pain (ICD-10 - R10.84) [facility] Other 04-10-2023 Evaluation note* Encounter Date Diagnosis Assessment Notes Treatment Notes Treatment Clinical Notes Jul, Generalized abdominal pain (ICD-10 - R10.84) Patient has significant abdominal pain in the left lower quadrant up to the splenic flexure of the transverse colon which is likely to be related to retained stool and constipation. We will get a KUB to confirm as well as some lab work to rule out other potential causes for the abdominal pain. We will also attempt to get him moving his bowels properly but if the pain is getting worse and becoming severe he needs to go to the emergency room for further work-up and likely disimpaction. Patient voiced understanding of this. Jul, Incontinence of feces, unspecified fecal incontinence type (ICD-10 - R15.9) This does not appear to be a neurologic issue and more fecal incontinence related to constipation. Jul, Foul smelling urine (ICD-10 - R82.90) Patient could have a UTI but he cannot leave urine sample so he was sent with a lab order as well as a specimen cup get this to the lab as soon as possible. instructed to Jul, Slow transit constipation (ICD-10 - K59.01) Jul, Medication monitoring encounter (ICD-10 - Z51.81) [facility] Other 04-10-2023 Evaluation note* Encounter Date Diagnosis Assessment Notes Treatment Notes Treatment Clinical Notes Jul, Slow transit constipation (ICD-10 - K59.01) [facility] Other 03-28-2023 NoteCONSULTATION CONSULTATION DATE: 07/02/2022 TO: Dr. Vuong CHIEF COMPLAINT: Includes severe bilateral lower back pain. HISTORY: Overall, he reports the pain being 6-7/10 pain, sharp in character with a burning component. He reports having pain that seems to be above his surgical site. The pain seems to increase with activity such as standing, walking and performing transitioning maneuvers. Denies any change in bowel and bladder habits, or new sensorimotor changes in his lower extremities. He reports persistent pain of his left lower extremity with what he described as possible weakness, but this has not changes over the last several months. EXAM: Notable for patient having hypoesthesia along the left L5 dermatome, mild weakness of his left EHL. Straight leg raise equivocally positive, +90 degrees. Patient also had severe pain with lumbar facet loading maneuvers at approximately L2-3, L3-4, worse on the right than the left side with associated myofascial spasm of the lumbar paravertebral muscles. IMPRESSION: Patient appears to have chronic pain secondary to post laminectomy syndrome, complicated by left L5 neurogenic process, as well as facet loading pain clinically, above the level of his surgery at L2-3 and possibly L3-4 with marked area with most of the tenderness during the examination process. PLAN: We will apply a skin marker and proceed with obtaining a lumbosacral spine film, to determine which level is causing most of his discomfort from above his surgical site. We will obtain urine toxicology screen. Recommend aquatic therapy. I placed him on Zonegran for his neurogenic pain, 100 mg at bedtime, and we await the results of the EMG nerve conduction velocity study. We will see him back in the office in approximately two weeks time or sooner if needed. We had discussion regarding possible caudal epidural steroid injection versus possible diagnostic facet injection under fluoroscopic guidance. Again, we will discuss this after we review his EMG nerve conduction velocity study, as well as his lumbar spine films.[id number] Note CONSULTATION CONSULTATION DATE: 06/13/2022 HISTORY OF PRESENT ILLNESS: This is a 41-year-old gentleman who returns to the clinic for a three month follow up for his chronic lower back pain. He was last seen on 03/14/2022 and, at that time, he was doing rather well. Today, he is complaining of 7/10 pain and presents with a walker. He states within the past 14 days he is slowly losing feeling in his legs and he has no sensation to his bladder. He has bladder incontinence. Procedure-jaffe, in the past, the patient has received from our clinic a lumbar epidural steroid injection with moderate relief. He has been seen both at [place] and [facility] in the past, and received procedures there. He describes his pain as a pinching and a burn and a grind. He does have lower lumbar hardware present between L4-S1. Activities such as twisting, pushing, pulling, sitting, prolonged standing, walking greatly aggravate his pain. He does alternate heat and ice, which he finds somewhat helpful. Medications include Percocet 5/325 t. i.d., Tylenol, Flexeril 20 mg q.h.s. and diclofenac 100 mg b.i.d. He has trial gabapentin in the past which he is unable to tolerate. This was when he was under the care of Dr. Joshua in [place]. He is unwilling to try Lyrica due to gabapentin side effects and cost of the medication. The patient is very concerned that he is slowly becoming paralyzed. He has been having episodes of nausea due to pain, and he did trial his 's Zofran, which was 8 mg disintegrating tablets, which was very helpful to him. Patient's REVIEW OF SYSTEMS / PAST MEDICAL HISTORY / ALLERGIES and IMAGES have been reviewed and noted on the chart. PHYSICAL EXAM: VITAL SIGNS: Blood pressure 154/90, heart rate is 65. Temperature is 97.7. He is 5'9 and weighs 150.5 kg. GENERAL IMPRESSION: Pleasant, appropriate, mildly uncomfortable in the chair. FOCUSED EXAM - BACK: Range of motion is guarded in lateral rotation and flexion/extension. Paravertebral muscles are taut but non-spasmodic. Spinal axial pain along the lower lumbar facets of L2, L3 and L4, L5 with fullness palpated indicative of facet arthropathy, lumbar spondylosis. Emilie's point mildly tender to the right. Positive FABERs and compression test. MUSCULOSKELETAL: Diffuse muscle atrophy noted bilateral lower extremities. Patient is walking with a Rollator. Bilateral anterior tibialis and peroneus longus with slight motor weakness. NEUROLOGICALLY: Patient is cognitively intact. Blunted bilateral patellar and Achilles reflexes. DIAGNOSIS: Lumbar radiculopathy, bladder incontinence, lumbar spinal canal stenosis, lumbar degenerative disc disease, lumbar spondylosis. PLAN: His last MRI was in 2017; therefore, we will obtain and updated lumbar and pelvis MRI. Prescription will be given for Zofran 8 mg disintegrating tablets to be used b.i.d. p.r.n. Refill for her Percocet 5/325 t.i.d. will be refilled for him. The patient is to follow up here at the clinic, following his MRI, with Dr. Saldivar to form a plan of care moving forward. Patient is in agreement to this plan.[facility] [id number] NoteCONSULTATION CONSULTATION DATE: 03/14/2022 HISTORY OF PRESENT ILLNESS: This is a pleasant, 41-year-old male returning to the clinic status post a lumbar epidural steroid injection completed on 02/19/2022. The patient states he had gained 85% pain relief and this is the best he has felt in a very long time. He has had epidurals before, but he states this has been the most successful. He has almost complete mitigation of his right lower extremity radicular pain. His back pain is decreased from 8/10 to 5/10 with activity. Twisting, pushing, pulling, sitting, standing, walking aggravate his pain. Resting and the use of ice decrease his pain. The patient states he was carrying groceries in the other day, started having spasms, but once he placed the groceries down, the spasming stopped. He is more aware of what works for him. Medications include diclofenac 100 mg b.i.d., Percocet 5/325 b.i.d. and melatonin. Patient is back to walking with a cane, which is his baseline and denies any new vasomotor changes or foot drag or drop. Patient's REVIEW OF SYSTEMS / PAST MEDICAL HISTORY / ALLERGIES and IMAGES have been reviewed and noted on the chart. PHYSICAL EXAM: VITAL SIGNS: Blood pressure 142/87, heart rate is 59. Temperature is 98. He is 5'9 , weighs 110 kg. GENERAL APPEARANCE: Pleasant, appropriate, no acute distress. FOCUSED EXAM - BACK: Range of motion is functional in lateral rotation and flexion/extension. Paravertebral muscles are non-spasmodic. No spinal axial pain upon deep compression of the lower lumbar facets. Emilie's point is non-tender. MUSCULOSKELETAL: Motor is intact, 4/5 with improved tone noted to his quadriceps and extensors bilaterally. NEUROLOGICAL: Patient is cognitively intact. Patchy hypoesthesia noted along the S1 distribution to the right. Blunted bilateral patellar and Achilles reflexes. DIAGNOSIS: Lumbar spinal canal stenosis, lumbar degenerative disc disease, lumbar radiculitis. PLAN: Overall, the patient is doing good and he is pleased. There will be no changes to his medications at this time. Patient recently had a whirlpool installed in his house and I encourage continued use of that as well as daily exercises. Patient will be followed up in the clinic in three months' time, unless otherwise indicated.[id number] NoteCONSULTATION CONSULTATION DATE: 02/07/2022 HISTORY OF PRESENT ILLNESS: This is a 41-year-old male returning to the clinic for a two month follow up for his chronic lower back pain and radicular pain. Today, he rates his pain as a 7/10. It is aggravated by all physical activities. He does alternate heat and ice. It gives him some relief. He does use a wheeled walker to ambulate. During this year, he was re-evaluated by Neurosurgery and he is not a surgical candidate. He does have history of a lumbar fusion with hardware placement at L5-S1. The patient does have significant bilateral radicular pain to the level of the feet. He is unable to tolerate gabapentin and he is unable to afford Lyrica. His current medications include Percocet 5/325 t.i.d., diclofenac 100 mg b.i.d., Flexeril 10 mg q.h.s. and Tylenol. He is recently stating he has had some loss of bladder control and he feels his lower extremities are getting weaker. Patient's REVIEW OF SYSTEMS / PAST MEDICAL HISTORY / ALLERGIES and IMAGES have been reviewed and they are noted on the chart. PHYSICAL EXAM: VITAL SIGNS: Blood pressure 143/95, heart rate is 80. He is 5'9 and weighs 110 kg. GENERAL IMPRESSION: Pleasant, appropriate, no acute distress. FOCUSED EXAM - BACK: Range of motion is functional in lateral rotation and flexion/extension. Paravertebral muscles are non-spasmodic. Upon compression along the L4-L5, L5-S1 facets pain is reproduced to the right side. Emilie's point is non-tender bilaterally. MUSCULOSKELETAL: Muscle atrophy noted bilateral lower extremities. Weakness noted to bilateral anterior tibialis and extensor digitorum longus. He does use a wheeled walker to ambulate. Transitioning from sitting to standing is slow and difficult. NEUROLOGICALLY: Diffuse polyneuropathy bilateral lower extremities. Blunted reflexes bilaterally. DIAGNOSIS: Lumbar radiculopathy, lumbar degenerative disc disease, lumbar spinal canal stenosis. PLAN: We will authorize for a lumbar epidural steroid injection. There will be not medication changes today. I did encourage him to drink a small amount of tonic water daily to help with muscle cramps. Patient agrees to move forward with the plan of care and will be followed up in the office post procedure.[facility] [id number] Evaluation note* Encounter Date Diagnosis Assessment Notes Treatment Notes Treatment Clinical Notes Dec, Well adult exam (ICD-10 - Z00.00) 41-year-old male who has a couple chronic medical conditions most of which is musculoskeletal that he is working with pain management for. He states he is doing reasonably well with the 3 Percocet a day and most days can manage okay but he still has not been able to work since May due to any type of manual work causing his back to flareup. He is due for updated lab work and this was ordered for him today and he will be contacted with the results of it. He does not need any refills or other screening testing at this time. He is to follow-up in 1 year or sooner if any acute issue arises. Dec, Lumbar disc displacement without myelopathy (ICD-10 - M51.26) Dec, Thoracic spondylosis (ICD-10 - M47.814) Dec, Lipid disorder (ICD-10 - E78.9) Dec, Lumbar degenerative disc disease (ICD-10 - M51.36) Patient would benefit from a Rollator walker to help him at times when his back flares up and he cannot use a cane due to instability and risk of falling. The Rollator walker will allow him to take pressure off his back and reduce his risk of falling as well as provide him a chance to rest when he is on his feet for extended periods of time. Dec, Other spondylosis with radiculopathy, lumbar region (ICD-10 - M47.26) Dec, Slow transit constipation (ICD-10 - K59.01) Dec, Medication monitoring encounter (ICD-10 - Z51.81) Dec, Cigarette nicotine dependence in remission (ICD-10 - F17.211) Dec, Prostate cancer screening (ICD-10 - Z12.5) [employer] Other 09-08-2022 NoteCONSULTATION CONSULTATION DATE: 12/13/2021 HISTORY OF PRESENT ILLNESS: This is a 40-year-old male returning to the clinic for a two month follow up after receiving bilateral lumbar trigger point injections at his last office visit. He was seen on 10/31/2021 which, at that time, patient stated he was unable to move forward with medial branch blocks due to residual costs requested by his insurance. He has elected to be medically managed and receive in-office injections when appropriate. Patient reported that the trigger point injections lasted him for 17 days and, during that time, he had very minimal pain. Today, his pain is 6-7/10. It is aggravated by standing, walking, bending, ADLs and activity. Patient is both mid back and lower lumbar area. Patient does have known pathology. Current medications include Percocet 5/325 b.i.d., diclofenac 100 mg b.i.d., Flexeril 10 mg at h.s. and Tylenol as needed. The patient is complaining primarily of his lower back pain and left groin pain. Patient's REVIEW OF SYSTEMS / PAST MEDICAL HISTORY / ALLERGIES and IMAGES have been reviewed and they are noted on the chart. PHYSICAL EXAM: Blood pressure 151/97, heart rate is 83. Temperature is 98. He is 5'9 , weighs 113.4 kg. GENERAL APPEARANCE: Pleasant, appropriate, no acute distress. FOCUSED EXAM - BACK: Paravertebral muscles are non-spasmodic but taut. Reproduction of spinal axial pain noted to direct compression along the elements of the lumbar facets of L2, L3 and L4, L5 bilaterally. Pain does radiate to the bilateral hips but does not extend below the knee. Emilie's point non-tender bilaterally. Negative FABERs and compression test. MUSCULOSKELETAL: Motor is intact, 4/5 bilaterally. Patient does use a cane to ambulate. Slight muscle atrophy noted to bilateral lower extremities. NEUROLOGICAL: Radicular sensory is intact. Negative polyneuropathy. +2 bilateral patellar reflexes. DIAGNOSIS: Chronic pain syndrome, lumbar neuritis, lumbar degenerative disc disease and chronic lower back pain. PLAN: Patient does state his diclofenac has been quite helpful, but I do not wish to increase the dose. I feel the patient is medicated appropriately with narcotics, anti-inflammatory and muscle relaxer. Due to the cost restraint of ordered procedures, he will not move forward with those, but rather receive in-office injections. Today we will increase his Percocet 5/325 to t.i.d. and encourage the patient to continue with his home exercises and home pool exercises. He will be seen in the clinic in eight weeks' time and, at that time, we will re-evaluate the need for repeated lumbar trigger point injections as well as aqua therapy at the hospital. Patient and agree with the plan of care and all questions were answered.[facility] [id number] Note CONSULTATION PROCEDURE DATE: 10/31/2021 PREOPERATIVE DIAGNOSIS: Bilateral paravertebral spasms. POSTOPERATIVE DIAGNOSIS: Bilateral paravertebral spasms. PROCEDURE: Bilateral lumbar trigger point injections. Subsequent to obtaining informed consent, the patient was placed in the upright standing forward flexion position. Alcohol prep was used to sterilize both sites, bilateral lumbar area. A 25 gauge needle with 0.125% Marcaine and 40 mg of Kenalog was divided into two injections. Needle was placed inside each trigger point. Negative heme. Medication was injected in a fan-like pattern. The patient tolerated the procedure well with no overt complications, and he will be followed up in the office.[facility] [id number] Note CONSULTATION CONSULTATION DATE: 10/03/2021 This is a 40-year-old male accompanied by his to the clinic for bilateral trigger point injections today. He was preauthorized for these injections today. He was last seen on 09/06/2021 which at that time, he was placed on Diclofenac 75 mg b.i.d. which he has found very helpful. He did have a 30-day trial of Percocet increase from 5 mg to 7.5/325 b.i.d. It was made clear to the patient that Percocet will be decreased back to 5/325 after the 30 days of getting him through that acute phase. Since his last appointment he had a trip to the emergency room on 09/29/2021 stating he had a flare-up of his pain. He was placed on a Medrol Dosepak, received Dilaudid, Toradol and Norflex. He is currently being worked up for left-sided abdominal pain per his PCP. He thought it was constipation but he has been following a clearance of bowel prep, the pain persists. The patient is unable to get his trigger point injections today due to still being on his Medrol Dosepak. REVIEW OF SYSTEMS, PAST MEDICAL HISTORY, ALLERGIES AND IMAGES: Have been reviewed and noted in the chart. PHYSICAL EXAM: VITAL SIGNS: Blood pressure 153/95, heart rate is 99, temperature is 97,8. Height is 5'9 , weighs 235 pounds. GENERAL APPEARANCE: Pleasant, appropriate and in no acute distress. FOCUSED EXAM: BACK: Range of motion is guarded in lateral rotation and flexion/extension. The patient's spinoaxial pain noted to direct compression along the posterior facets of L2, L3 and L4, L5. Pain radiates to hips and left groin. Emilie's point is mildly tender to the right, Swapna's and compression tests are negative. MUSCULOSKELETAL: The patient does ambulate with an assistive device; gait steady. Diffuse muscle atrophy noted to bilateral lower extremities. NEUROLOGICAL: Patchy hypesthesia noted to L1, L2 to the left. Radicular sensory otherwise in intact with +2 bilateral patellar reflexes. DIAGNOSIS: Lumbar degenerative disk, lumbar spondylosis, lumbar radiculitis. PLAN: Percocet will be decreased to 5/325 b.i.d. and diclofenac increased to 100 mg b.i.d. The patient is encouraged to take it with food. We will send a refill for those two medications in addition to Flexeril 10 mg q.h.s. The patient will be scheduled in four weeks' time to receive the lumbar trigger points that have already been approved. The patient was also confronted regarding his last urine tox that showed hydromorphone and hydrocodone which the patient is currently not taking. The patient states he is unaware of how those showed up on his U-tox and denies taking other medications besides what has been prescribed by the pain clinic. The patient has filled out paperwork for assistance at the hospital and once those papers go through, he would like to proceed with medial branch block series to his lumbar spine. The patient agree to the plan of care and will be seen in the clinic. [facility] Signed and Approved by: BRIT SCHUSTER . 10/11/2021 16:28:00[facility]04-04-2022 Evaluation note* Encounter Date Diagnosis Assessment Notes Treatment Notes Treatment Clinical Notes Jul, Other spondylosis with radiculopathy, lumbar region (ICD-10 - M47.26) Patients primary complaint today continues to be low lumbar pain. Patients main concern today was increasing his current opioid medication regimen. It was discussed we have reached the maximum level of medication I prescribe and would not recommend increasing his opioid medication. I feel the patient could benefit from interventional options we have not explored, such as lumbar facet radiofrequency ablations, however he is generally not interested in this. Patient notes prior issues with [facility] billing department and states he is uncomfortable having any procedures done due to this. Patient was encouraged to seek care elsewhere if he feels what we have to offer is not satisfactory to him. In the meantime, we will continue to do our best, but it has been strongly emphasized that we are covering or offering most conservative options available. We will continue his current medication regimen. Anatomy of spine discussed in detail with patient in regards to patients condition. Jul, Thoracic back pain (ICD-10 - M54.6) Jul, Chronic, continuous use of opioids (ICD-10 - F11.90) Patient has continued need for Oxycodone Acetaminophen 5-325 mg up to three times daily as needed. Given the severity of this most recent pain flare up, we will increase the to Oxycodone Acetaminophen 7.5-325 mg up to three times daily as needed temporarily for seven days. He notes reasonable benefit in regards to improved level of function and ability to complete his activities of daily living. An OARRS report was processed and reviewed and shows no violations, as well as an opioid risk assessment being completed without concerns.This medication was refilled today. Jul, Other chronic pain (ICD-10 - G89.29) Jul, Other Above note writ ten by Km Cervantes MA, [employer]. Edited and approved by Dr. Charles Solares MD. [facility] Other 03-18-2022 Evaluation note* Encounter Date Diagnosis Assessment Notes Treatment Notes Treatment Clinical Notes Jun, Lumbar disc displacement without myelopathy (ICD-10 - M51.26) Patient feels his current treatment plan is not working successfully for him and he is interested in being assessed by someone different and getting a second opinion regarding his chronic pain management. For this reason referral for [facility] pain management was given. Jun, Other spondylosis with radiculopathy, lumbar region (ICD-10 - M47.26) Jun, Lumbar degenerative disc disease (ICD-10 - M51.36) Jun, Cigarette nicotine dependence without complication (ICD-10 - F17.210) Patient nicotine use and cravings is being significantly reduced with the Chantix and he is to continue with it. [facility] Other 03-02-2022 Evaluation note* Encounter Date Diagnosis Assessment Notes Treatment Notes Treatment Clinical Notes Jun, Other spondylosis with radiculopathy, lumbar region (ICD-10 - M47.26) Patient is also voicing complaints of low lumbar pain radiating anteriorly. We continued to discuss other options should his symptoms progress in the future including interventional options, but he is generally not interested in this. We will continue to do our best, but it has been strongly emphasized that we are covering or offering most conservative options available. Per the patients request, we will begin to titrate him down from his current dose of Cymbalta. I will decrease this to 30 MG daily for one month. Additionally, I will switch the patient back to Flexeril for his muscle spasms. Risks and side effects of this medication was discussed in detail with the patient who voiced understanding. Anatomy of spine discussed in detail with patient in regards to patients condition. Jun, Thoracic back pain (ICD-10 - M54.6) Jun, Chronic, continuous use of opioids (ICD-10 - F11.90) Patient has continued need for Oxycodone Acetaminophen 5-325 mg up to three times daily as needed. Given the severity of this most recent pain flare up, we will increase the to Oxycodone Acetaminophen 7.5-325 mg up to three times daily as needed temporarily for seven days. He notes reasonable benefit in regards to improved level of function and ability to complete his activities of daily living. An OARRS report was processed and reviewed and shows no violations, as well as an opioid risk assessment being completed without concerns.This medication was refilled today. Jun, Other chronic pain (ICD-10 - G89.29) Jun, Other Above note writ ten by Km Cervantes CMA, [employer]. Edited and approved by Dr. Charles Solares MD. [employer] Other 02-15-2022 Evaluation note* Encounter Date Diagnosis Assessment Notes Treatment Notes Treatment Clinical Notes May, Cigarette nicotine dependence without complication (ICD-10 - F17.210) [employer] Other 02-14-2022 Evaluation note* Encounter Date Diagnosis Assessment Notes Treatment Notes Treatment Clinical Notes May, Other spondylosis with radiculopathy, lumbar region (ICD-10 - M47.26) [employer] Other 02-01-2022 Evaluation note* Encounter Date Diagnosis Assessment Notes Treatment Notes Treatment Clinical Notes May, Other spondylosis with radiculopathy, lumbar region (ICD-10 - M47.26) Patient is also voicing complaints of low lumbar pain radiating anteriorly. We continued to discuss other options should his symptoms progress in the future including interventional options, but he is generally not interested in this. We will continue to do our best, but it has been strongly emphasised that we are covering or offering most conservative options available. Patient will continue on his curret pain medication regimen including Cymbalta, Meloxicam, as well as we will begin Methocarbamol 500 mg being used as needed for muscle spasm symptoms. We will stop the Flexeril at this time. Anatomy of spine discussed in detail with patient in regards to patients condition. May, Thoracic back pain (ICD-10 - M54.6) May, Chronic, continuous use of opioids (ICD-10 - F11.90) Patient has continued need for Oxycodone Acetaminophen 5-325 mg up to three times daily as needed. Given the severity of this most recent pain flare up, we will increase the to Oxycodone Acetaminophen 7.5-325 mg up to three times daily as needed temporarily for seven days. He notes reasonable benefit in regards to improved level of function and ability to complete his activities of daily living. An OARRS report was processed and reviewed and shows no violations, as well as an opioid risk assessment being completed without concerns. This medication was refilled today. Saliva sample performed through [facility] today, will await confirmatory results. Opiod contract updated at this time. May, Other chronic pain (ICD-10 - G89.29) May, Other Above note writ ten by Sonya Dawson LPN, [employer]. Edited and approved by Dr. Charles Solares MD. [employer] Other 01-06-2022 Evaluation note* Encounter Date Diagnosis Assessment Notes Treatment Notes Treatment Clinical Notes Apr, Other spondylosis with radiculopathy, lumbar region (ICD-10 - M47.26) Patient is also voicing complaints of low lumbar pain radiating anteriorly. We continued to discuss other options should his symptoms progress in the future including interventional options, but he is generally not interested in this. We will continue to do our best, but it has been strongly emphasised that we are covering or offering most conservative options available. Patient will continue on his curret pain medication regimen including Cymbalta, Meloxicam, as well as cyclobenzaprine being used as needed for muscle spasm symptoms. Apr, Thoracic back pain (ICD-10 - M54.6) Patient is voicing complaints of thoracic back pain. He shows noteable muscle tenderness upon exam. Based on location of pain and exam findings, patient is a candidate for bilateral thoracic trigger point injections which we will proceed with today in the office. Risks and benefits of procedure explained to patient; patient verbalizes understanding. Patient tolerated well. Apr, Chronic, continuous use of opioids (ICD-10 - F11.90) Patient has continued need for Oxycodone Acetaminophen 5-325 mg up to three times daily as needed. He notes reasonable benefit in regards to improved level of function and ability to complete his activities of daily living. An OARRS report was processed and reviewed and shows no violations, as well as an opioid risk assessment being completed without concerns. This medication was refilled today. Apr, Other chronic pain (ICD-10 - G89.29) Apr, Other Above note writ ten by Km Cervantes CMA, [employer]. Edited and approved by Dr. Charles Solares MD. [employer] [employer] Other 12-02-2021 Evaluation note* Encounter Date Diagnosis Assessment Notes Treatment Notes Treatment Clinical Notes Mar, Other spondylosis with radiculopathy, lumbar region (ICD-10 - M47.26) Patient notes reasonable improvement after most recent oral steroid course prescribed by his PCP. He states that he receives sustained benefit with these. We continued to discuss other options should his symptoms progress in the future including interventional options, but he is generally not interested in this. We will continue to do our best, but it has been strongly emphasised that we are covering or offering most conservative options available. Patient will continue on his curret pain medication regimen including Cymbalta, Meloxicam, as well as cyclobenzaprine being used as needed for muscle spasm symptoms. Mar, Chronic, continuous use of opioids (ICD-10 - F11.90) Patient has continued need for Oxycodone Acetaminophen 5-325 mg up to three times daily as needed. He notes reasonable benefit in regards to improved level of function and ability to complete his activities of daily living. An OARRS report was processed and reviewed and shows no violations, as well as an opioid risk assessment being completed without concerns. This medication was refilled today. Mar, Other chronic pain (ICD-10 - G89.29) Above note written by Sonya Dawson LPN, [employer]. Edited and approved by Dr. Charles Solares MD. [employer] Other 11-08-2021 Evaluation note* Encounter Date Diagnosis Assessment Notes Treatment Notes Treatment Clinical Notes Feb, Other spondylosis with radiculopathy, lumbar region (ICD-10 - M47.26) Patient has an acute flareup of his known degenerative back disease with radiculopathy. Will be given prednisone 20 mg 2 tabs once daily to help alleviate his flareup. Steroids have worked well for him in the past and his last steroid dose pack was given to him in October. He was also given a couple days off of work. We discussed disability and I instructed him to reach out to the state disability office and find a clinician certified through their office to give him a disability assessment as I feel he does have a case for disability at this time. Feb, Slow transit constipation (ICD-10 - K59.01) Patient is having regular bowel movements at this point and they are of normal caliber and consistency. I instructed him to stay on his current regimen and if he feels the stools are getting harder or is going less frequently he can of the senna an additional 1-2 tabs during the day. If he starts having diarrhea then he is to back off on the docusate and senna by 1 tablet. Patient voiced understanding agrees with this plan. [employer] Other 11-01-2021 Evaluation note* Encounter Date Diagnosis Assessment Notes Treatment Notes Treatment Clinical Notes Feb, Other spondylosis with radiculopathy, lumbar region (ICD-10 - M47.26) Patient continues to voice complaints of increasing low lumbar pain radiating into his bilateral lower extremities and subjective weakness. He notes recent constipation over past johnny which has improved with senna and docusate with benefit. Most recent visit with Dr. Vuong the patient expressed frustration that pain managment isn't helping. He is also requesting an increase in flexeril frequency, he is already taking three times daily. I explained to the patient extensively that we are doing all that we are able, he is on regular opioids, muscle relaxants, NSAIDs, OTC tylenol occasionally, he has been on gabapentin and Lyrica and stopped due to side effects, we also recently trialed cymbalta and he was not able to tolerate. Finally he is taking medical marijuana from another provider. I explained to him that he is taking or has trialed medication from every category of pain related medication at reasonably high doses and frequency, I do not advise escalating his flexeril any further. He has exhausted some interventional alternative options but is generally not interested in this. Furthermore he continues to decline my suggestions to obtain an updated lumbar MRI for evaluation or surgical opinion. I have expressed that we may be coming to a point where he would be best to obtain pain managment care elsewhere for a different opinion and perhaps a different approach. He states he was having a bad day with Dr. Vuong and is not interested in this at the moment. We will continue to do our best, but it has been strongly emphasised that we are covering or offering most conservative options available. Feb, Chronic, continuous use of opioids (ICD-10 - F11.90) Patient has continued need for Oxycodone Acetaminophen 5-325 mg up to three times daily as needed. An OARRS report was processed and reviewed and shows no violations, as well as an opioid risk assessment being completed without concerns. Recently patient notes approximately one month history of consitpation, improved with senna and docusate. This has not been an issue with him in the past. It was explained should he not get resolution from medication and diet options, the fact that his chronic opioid use is likely contributing, we may need to consider stopping these medications in the future. He understands. Feb, Other chronic pain (ICD-10 - G89.29) Feb, Other Above note writ ten by Donita Henson CMA, [employer]. Edited and approved by Dr. Charles Solares MD. [employer] Other 10-28-2021 Evaluation note* Encounter Date Diagnosis Assessment Notes Treatment Notes Treatment Clinical Notes Jan, Slow transit constipation (ICD-10 - K59.01) Patient has worsening constipation and hasn't been taking any stool softeners over the past few months as he wasn't sure they were helping. I explained to him that while he is on pain medication with narcotics he needs to be on some sort of stool softener regimen so he does not get constipated like he has. He will be placed on docusate 100 mg twice daily and senna 2 tablets to be taken at bedtime. He was instructed on how we can uptitrate this medication if it is not working. Patient has to eliminate the hard stool blockage that is in his colon and then remain on a regimen to keep having 1 soft bowel movement daily. Patient voiced understanding and will call if he is having problems even after starting to take these medicines. Jan, Chronic, continuous use of opioids (ICD-10 - F11.90) Jan, Lumbar degenerative disc disease (ICD-10 - M51.36) Patient is requesting an increase in Flexeril and I instructed him I would send a message to Dr. Solares passing this along. [employer] Other 10-04-2021 Evaluation note* Encounter Date Diagnosis Assessment Notes Treatment Notes Treatment Clinical Notes Jan, Other spondylosis with radiculopathy, lumbar region (ICD-10 - M47.26) Patient continues to voice complaints of increasing low lumbar pain radiating into his bilateral lower extremities. He notes worsening subjective weakness. He notes some and now voices new complaints of bowel/ bladder issues. This does not sound like outright incontinence. Given worsening pain symptoms, I will order an MRI of his lumbar spine for further consideration. Patient will follow up with us following his MRI. Patient has been instructed to report to the ED if he has eppisodes of fecal/bowel incontinence or significant weakness. Jan, Knee pain, right (ICD-10 - M25.561) Jan, Chronic, continuous use of opioids (ICD-10 - F11.90) Patient has continued need for Oxycodone Acetaminophen 5-325 mg up to three times daily as needed. An OARRS report was processed and reviewed and shows no violations, as well as an opioid risk assessment being completed without concerns. He denies any significant opioid related side effects and appears to be compliant with this medication. 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 He understands the associated risks with this medication and agrees that it provides reasonable benefit in regards to his pain control and level of function. Oxycodone Acetaminophen was refilled today. Jan, Other chronic pain (ICD-10 - G89.29) [employer] Other Evaluation noteNo InformationNort [employer] Other Evaluation noteNo assessment information available [facility] Work Phone: History and physical note Author Nash Cardenas [facility] September 26, 2022 9:39am Note Date/Time September 26, 2022 9:39 am [facility] [address] [place] [address] Gastroenterology H&P Signed Patient: Neal Irene MR#: [id number] : 1980 Acct:[id number] Age/Sex: 41 / M Adm Date: 3 Loc: Room: Type: [facility] Attending Dr: Nash Cardenas MD Copies to: MD Maribeth Mcdermott DO Date of Service: 09/26/2022 HISTORY & PHYSICAL: Patient's history with special attention to the cardiovascular, pulmonary systems and the current problem was reviewed with the patient immediately prior to the procedure. Present medications and doses reviewed in the EMR. Allergies and pertinent laboratory tests were also reviewedat this time in the EMR. The physical examination, as below, was then performed. Indication, assessment and HPI: 41-year-old male presents for colonoscopy to evaluate rectal bleeding Family history of GI malignancy? No PHYSICAL EXAMINATION Mouth and Pharynx : Moist mucus membranes, normal dentition Cardiac: Regular rate, regular rhythm Pulmonary: Clear to auscultation bilaterally, no wheezing Neurological: Alert and oriented x3, no focal deficits noted Abdomen: Abdomen soft, non-tender REVIEW OF SYSTEMS Constitutional: Denies malaise, fevers Cardiovascular: Denies chest pain, palpitations Respiratory: Denies shortness of breath, wheezing Gastrointestinal: Per HPI Genitourinary: Denies dysuria, polyuria Musculoskeletal: Denies joint swelling, joint stiffness Neurological: Denies numbness, tingling Integumentary: Denies rashes, skin lesions Endocrine: Denies fatigue, weight loss Written informed consent obtained from the patient. Risks (including but not limited to perforation, infection, bloating, bleeding, need for emergent surgeryand loss of life), benefits and alternatives explained and questions answered. The patient verbalized understanding. Based on history patient is an appropriate candidate for the procedure. Nash Cardenas MD Documented By: Nash Cardenas MD 09/26/22 0938 Signed By: <Electronically signed by Nash Cardenas MD> 09/26/22 0939 [facility] Work Phone: History general Narrative - Reported* Type Description Date Medical History Hx spinal fusion Medical History Lumbar radiculopathy Medical History Trigger point Surgical History L5 S1 fusion 2014 Surgical History Left lower leg surgery (multipl e fractures) Surgical History foreign body excision right mid dle finger Hospitalization History pneumonia as child [employer] Other History general Narrative - Reported* Type Description Date Medical History Hx spinal fusion Medical History Lumbar radiculopathy Medical History Trigger point Surgical History L5 S1 fusion 2014 Surgical History Left lower leg surgery (multipl e fractures) Surgical History foreign body excision right mid dle finger Surgical History lumbar facet nerve b lock injection - Dr. Saldivar in [facility] 11/2022 Hospitalization History pneumonia as [place] Other History general Narrative - Reported* Type Description Date Medical History Hx spinal fusion Medical History Lumbar radiculopathy Medical History Trigger point Surgical History L5 S1 fusion 2014 Surgical History Left lower leg surgery (multipl e fractures) Surgical History foreign body excision right mid dle finger Surgical History lumbar facet nerve b lock injection - Dr. Saldivar in [facility] 11/2022 Surgical History R side nerve ablation 01/2023 Hospitalization History pneumonia as child [employer] Other Hospital Discharge instructions Additional Instructions DISCHARGE INSTRUCTIONS FOR COLONOSCOPY WHAT TO EXPECT: - You may feel full, gassy or cramping after your procedure. In some cases, this may be from a few hours to a day. Walking may help relieve the discomfort. - You should begin to recover from anesthesia within 1 hour of the procedure, however may feel groggy for the next 24 hours. DO's AND DON'Ts: - Call your doctor right away if you have a hard abdomen, severe pain, are passing lots of bright red blood or clots. - Call your doctor if you develop any rashes, hives or difficulty breathing. - Let your doctor know if you have not had a bowel movement by 3 days after your procedure. - If you take 81 mg aspirin for your heart it is safe to resume this medication. - If you take other blood thinner medications your doctor will instruct you when these can safely be resumed. - Do NOT drive for 24 hours. - Do NOT operate machinery such as power tools, lawn mowers, snow blowers, sewing machines, etc. for 24 hours. - Avoid alcoholic beverages and drugs for allergies, nerves, or sleep. - Do NOT stay alone. Do NOT leave your child unattended. - Do NOT make important personal or business decisions or sign any legal documents. - Eat solid foods and drink liquids in smaller amounts than usual until normal appetite returns. If you should experience an upset stomach, liquids high in sugar content (soda, Pramod-Aid, non-acid juices) are recommended. - You can resume normal activities tomorrow. FOLLOW UP & RECOMMENDATIONS: -The office will schedule you a follow-up appointment -Notify the doctor if you have any problems. -Repeat colonoscopy in 5 years. -Follow up with PCP. -Office number [phone].[facility] Work Phone: reason for visit NarrativePatient here at the request of Dr. Vuong for evaluation & treatment of abdominal pain, change in bowel habits, weight loss, rectal bleeding.[employer] Other Reason for visit NarrativeProcedure appt and DNR-A [employer] Other Summary Purpose Family History Relationship Condition Age at Onset Recorded Date/T lorri brother Gout Unknown Relationship Condition Age at Onset Recorded Date/T lorri brother Gout Unknown Diabetes mellitus Unknown Advance Directives Advance Directive Response Recorded Date/ Time Advance Directives No December 4:24pm Reason for Referral Reason [facility]. [facility] options, steroid injections not providing long lasting benefit Diagnosis 1 Primary osteoarthrit is of both first carpometacarpal joints (M18.0) Referral Organization [facility] Family DocumentCloudin EnteGreat Tom Referring Provider First Name Maribeth Referring Provider Last Name Carolann Referring Provider Specialty Family Prac patito Referred Organization [facility] Ortho pedics Referred Address [address] [place], [place],[address] Referred Provider Specialty ORTHOPEDIC S URGEON Referral Priority Routine Reason * Waiting for appt CT and KUB normal, generalized pain of unclear etiology Diagnosis 1 Generalized abdomina l pain (R10.84) Referral Organization [facility] Family Nisha Santos Referring Provider First Name Maribeth Referring Provider Last Name Carolann Referring Provider Specialty Family Prac patito Referred Organization [facility] Gastroenterolo gy Referred Provider Dwayne Salas Referred Address [address] [facility] [address], [place],[address] Referred Provider Specialty Gastroentero logy Referral Priority Routine General Notes Rebeca Vivar 02/2023 03:53:02 PM >referral received and sent p2p successful per log Reason * FU 06/29 2nd opi nion to see if there is anything more that can be done for his chronic back pain, Dr. Finnegan Diagnosis 1 Lumbar disc displace ment without myelopathy (M51.26) Diagnosis 2 Other spondylosis wi th radiculopathy, lumbar region (M47.26) Diagnosis 3 Lumbar degenerative disc disease (M51.36) Diagnosis 4 Chronic, continuous use of opioids (F11.90) Referral Organization [facility] Family Medicin e Tom Referring Provider First Name Maribeth Referring Provider Last Name Carolann Referring Provider Specialty Family Prac patito Referred Organization [facility] Referred Address [address] Referred Provider Specialty Pain Medicin e Referral Priority Routine General Notes Rebeca Vivar 11:08:53 AM >referral received and faxed Clinical Notes P- [phone] Chief Complaint and Reason for Visit Chief Complaint E78.9 Z51.81 Z12.5 Z 00.00 Chief Complaint E78.9 Z51.81 Z12.5 Z 00.00 R10.84 Z51.81 K59.01 Chief Complaint E78.9 Z51.81 Z12.5 Z 00.00 R10.84 Z51.81 K59.01 multiple dx's Chief Complaint E78.9 Z51.81 Z12.5 Z 00.00 R10.84 Z51.81 K59.01 multiple dx's Change in Bowel Habits, Rectal Bleeding, Weight Lo Additional Source Comments (unrecognized sect ion and content) No Status Records FoundNo Status Records FoundNo Status Records FoundNo Status Records Found INFORMATION SOURCE (unrecogn ized section and content) DATE CREATED AUTHOR 05/25/2018 [facility] DATE CREATED AUTHOR AUTHOR'S ORGANIZ ATION 06/11/2018 [facility] DATE CREATED AUTHOR AUTHOR'S ORGANIZ ATION 09/15/2022 [facility] DATE CREATED AUTHOR AUTHOR'S ORGANIZ ATION 10/04/2022 [facility] REASON FOR VISIT (unrecogniz ed section and content) 1 MOback pain getting worse, pain management not working4 WK RECHECKDISCUSS DISABILITY OPTIONSLab results1 MO1 MONTH RECHECKCHANTIX1 month Follow upscript requestpaperwork1 MONTH FOLLOW UPCHANTIX refill/discuss back concerns1 MONTHNo InformationNo InformationPROCEDURE NOTES1 year Follow up/ AWVAbdominal Pain/ incontinencenew medication.ReferralPain ManagementB/L thumb steroid inj./ sign DNR-AORDERS PER DR Han bpelevated BP at PM in [place], no sxinjection L thumb1 year Follow upLosartan/HCTZsteroid injection Care Teams (unrecognized sec tion and content) Team Status: Active Member Role Status Dates Maribeth Vuong , DO Primary Care Provider Active Team Status: Inactive Member Role Status Dates Maribeth Vuong , Primary Care Provider, Attending Provider Active Team Status: Inactive Member Role Status Dates Maribeth Vuong , DO Primary Care Provider Active Nash Cardenas MD Attending Provider Active Goals (unrecognized section and content) Goals may be documented in a n alternate section FOR RECORDS PERTAINING TO PATIENTS WHO ARE OR HAVE BEEN ENROLLED IN A CHEMICAL DEPENDENCY/SUBSTANCEABUSE PROGRAM, SOME INFORMATION MAY BE OMITTED. This clinical summary was aggregated from multiple sources. Caution should be exercised in using it in the provision of clinical care. This summary normalizes information from multiple sources, and as a consequence, information in this document may materially change the coding, format and clinical context of patient data. In addition, data may be omitted in some cases. CLINICAL DECISIONS SHOULD BE BASED ON THE PRIMARY CLINICAL RECORDS. [facility]. provides no warranty or guarantee of the accuracy or completeness of information in this document.
--- NOTE | 2023-05-07 09:07 | P.CN_ITS ---
Consult Note: HPI Data of Consult Patient: known to practice within the last 3 years Requesting Physician: Brianna Wallace NP Primary Care Provider: MARIBETH VUONG Consult Narrative Reason for consult: f/u Narrative: Pedro Pablo Irene a pleasant 42 year old male presents for evaluation and management of chronic back pain. Patients main complaint is middle back rating pain 8/10. Patient reports continued pain in low back and numbness tingling weakness of bilateral legs, patient has fallen 6x since last visit and is now utilizing a rolator walker. KRYSTAL 66% today. cc:: CC: Brianna Wallace NP Review of Systems ROS Status of ROS 10 or more systems reviewed and unremark able except as noted in history and below Musculoskeletal Reports: back pain PFSH PFSH Medical History Surgical History S/P lumbar spine operation ?Z98.890 - Other specified postprocedural states (ICD-10) Meds Home Medications and Allergies Home Medications Medication Instructions Recorded Confirmed Type acetaminophen 500 mg tablet 1,000 mg PO Q6H 09/13/22 01/07/23 History (Tylenol Extra Strength) cyclobenzaprine 10 mg tablet 10 mg PO TID 09/13/22 01/07/23 History diphenhydramine HCl 25 mg tablet 50 mg PO DAILY 09/13/22 01/07/23 History (Allergy (diphenhydramine)) meloxicam 15 mg tablet 15 mg PO DAILY 09/13/22 01/07/23 History oxycodone-acetaminophen 5 mg-325 1 tab PO TID 09/13/22 01/07/23 History mg tablet (Endocet) oxycodone-acetaminophen 5 mg-325 1 tab PO TID PRN pain #90 tabs 12/25/22 01/07/23 Rx mg tablet (Percocet) losartan 50 mg-hydrochlorothiazide tab 01/07/23 History 12.5 mg tablet cyclobenzaprine 10 mg tablet 10 mg PO TID PRN muscle spasm #80 01/22/23 Rx tabs oxycodone-acetaminophen 5 mg-325 1 tab PO TID PRN pain #90 tabs 01/22/23 Rx mg tablet (Percocet) oxycodone-acetaminophen 5 mg-325 1 tab PO TID PRN pain #90 tabs 02/26/23 Rx mg tablet (Percocet) Allergies Allergy/AdvReac Type Severity Reaction Status Date / Time gabapentin AdvReac Severe Dizziness Verified 01/07/23 08:07 zonisamide [From Zonegran] AdvReac Intermediate Nausea Verified 01/07/23 08:07 Exam Constitutional Documenting provider has reviewed patient's vital signs: yes Common normals: no apparent distress, oriented x3, healthy appearing, alert and well nourished General appearance: cooperative HENMT Common normals: normocephalic, hearing grossly normal bilaterally and moist oral mucous membranes Head and scalp: normocephalic Eye Common normals: PERRL Pupil: PERRL Neck & C-Spine Common normals: full ROM General: normal visual inspection Chest Common normals: inspection of chest normal Respiratory Common normals: normal respiratory effort, no retractions and no use of accessory muscles Back & Pelvis Thoracic spine/upper back: ROM limited and pain with ROM Lumbar spine/lower back: ROM limited, pain with ROM and straight leg raise negative bilaterally Sacroiliac joints: SI joints normal Extremity Common normals: normal to inspection and full ROM Neuro Common normals: oriented x3, CN's II-XII intact bilaterally, moves all extremities, no focal motor deficits, no sensory deficits noted and deep tendon reflexes 2+ bilaterally Sensorium/orientation: alert Motor exam: no movement abnormalities noted and strength abnormal (4/5 in BLE) Psych Common normals: mental status grossly normal, thought process normal, cooperative, affect normal, speech normal and activity/motor behavior normal Speech: normal speech Thought process: normal thought process Results Additional Findings Additional findings: I have checked an OARRS report on this patient today and there are no aberrancies noted in the prescribing history.?? A drug screen was completed and reviewed within the last year, and if there has not been a drug screen completed we ordered one today to monitor higher risk, state monitored pain medication use. As part of providing excellent, safe, comprehensive care, the following was completed at our patient's visit: 1. A medication reconciliation and review to ensure accurate knowledge of current/active medications, including asking our patients to inform us about any [id number] medications or herbal remedies/nutritional supplements/alternative remedies. 2. A review to specifically ensure our patients have had annual screening for: elevated body mass index (BMI), tobacco use, screening for depression, and screening for unhealthy alcohol use. When screening is concerning, patients are provided with education and the specific recommendation to discuss the concerning health issue and treatment options with their primary care provider. Assessment and Plan Assessment and Plan (1) Thoracic spondylosis: (2) Lumbar stenosis with neurogenic claudication: (3) Lumbar radiculopathy: (4) Status post lumbar spinal fusion: (5) Muscle spasm: (6) Lumbar spondylosis: (7) Marijuana use: Assessment and Plan: patient admitted to maijuana use at last appointment, has failed UDS in the past and been warned. continue NNCP (8) Obesity: Assessment and Plan: The patient was counseled that proper dietary changes and consistent participation in a home exercise plan can lead to weight loss. Weight loss can help to improve functionality in patients with chronic pain.? Plan xray of thoracic spine with skin marker to assess appropriate levels for facet blocks working towards thermal RFA for chronic mid back pain without thoracic radiculopathy lumbar spine MRI without contrast to evaluate for injection therapy, greater than 6 weeks of low back pain with radiculopathy, 6 falls since last visit, weakness to bilateral legs start pregablin 50mg HS, continue other medications continue NNCP due to previous failed UDS and use of marijuana while on opioids through our office thoracic xray reviewed, bilateral T4-5 T5-6 facet medial branch blocks x2 working towards thermal RFA f/u 1 week after injection
== END 2023-05-07 08:49 | disposition home or self-care (01) ==
LOC: PM 08:49
PROVIDERS: Visit Provider Nurse Practitioner
DX: M47.814 Spondylosis without myelopathy or radiculopathy, thoracic region (principal); M54.6 Pain in thoracic spine; M48.062 Spinal stenosis, lumbar region with neurogenic claudication; M54.16 Radiculopathy, lumbar region; Z98.890 Other specified postprocedural states; M62.838 Other muscle spasm; M47.816 Spondylosis without myelopathy or radiculopathy, lumbar region; Z79.899 Other long term (current) drug therapy; E66.9 Obesity, unspecified
CPT/HCPCS: 72070; G0463

== ENCOUNTER 2023-05-07 09:36 | Outpatient (OUT) | payer OTHER, SELFPAY ==
--- NOTE | 2023-05-07 10:00 | XR_ITS ---
[facility] [place] [id number] Patient Name: NEAL PARKER MRN: [id number] date: 1980 Sex: M Assigned Patient Location: [facility] Current Patient Location: [facility] Accession/Order Number: [id number] Exam Date: 05/07/2023 09:50 Report Date: 05/07/2023 12:53 At the request of: MADDIE FISHER Procedure: XR thoracic spine 2V EXAMINATION: XR thoracic spine 2V HISTORY: thoracic pain M47.814 COMPARISON: No relevant comparison available. FINDINGS: BONES: Normal alignment with no acute fracture or spondylolisthesis. Minimal degenerative spondylosis. BB demarcates the mid T4 to the mid T5 level DISC SPACES: Normal. No significant disc height narrowing, subluxation, or endplate abnormality. PARASPINOUS: Negative. No paraspinous abnormality is seen. OTHER: Negative. XR/XR thoracic spine 2V IMPRESSION: Minimal degenerative changes Electronically authenticated by: RENE LAUREN Date: 05/07/2023 12:53
--- OUTSIDE RECORDS SUMMARY | 2023-05-07 10:00 | XMS_ITS | CCD ---
Author Name Unknown Address [address] [facility] [address] [place] [address] Organization [facility] Care Team Providers Care Community Outreach Advocate Name Role Phone Lashay Li Admitting Unavailable Lashay Li Attending Unavailable RENE MORRELL Primary Care Unavailable PHI RENE Attending Unavaila Charles Cohen Unavailable Carolann, Maribeth Unavailable Carolann, Maribeth Unavailable Carolann, Maribeth Unavailable Carolann, DO Maribeth Williamson Primary Care Provider [phone] Carolann, DO Maribeth N Attending Provider Igor [...] BRIT Consulting Unavailable JESS ., NARENDRANATH Attending Jessy vailable LAKSHMIPATHY ., [...] gabapentin Drug Allergy 3 dizziness, sleepy, Drowsy [facility] (1 source) gabapentin Drug Allergy [facility] (9 sources) zonisamide Drug Allergy 3 diarrhea [facility] (1 source) gabapentin Drug Allergy 3 [facility] (1 source) zonisamide Drug Allergy 3 [facility] Medications Current Medications Medication Drug Class(es) [...] day(s) Jun, Active take 1 capsule by [facility] every twenty-four hours Cymbalta 60 MG [...] Active Start: 12-12-2022 take [address] [facility] daily Losartan Potassium-HCTZ 50-12.5 MG 1 [...] Once a day Active polyethylene glycol 3350 [id number] mg / potassium chloride 2970 mg / sodium bicarbonate 6740 mg / sodium chloride 5860 mg / sodium sulfate 08751 mg powder for oral solution (6 sources) [...] for 7 days PRN Feb, Active sennosides, halfway 8.6 mg oral tablet (16 sources) Start: [...] 07-12-2022 Episodic Other aftercare (1 source) Other halfway (current) drug therapy; Translations: [OTH [employer] CURRENT DRUG THERAPY] Onset: 07-17-2022 Episodic Other [...] Amylase [Catalytic activity/Vol] 43 U/L Normal 29-103 [facility] Comment on above: Order Comment: Reaso n for Exam Generalized abdominal pain;Slow transit constipation;Medicat Reason for Exam Generalized abdominal pain;Medication monitoring encounter NOT FASTING. JKW Performed By: #### C BC, POOJA, LIPASE #### [address] Amylase 43 U/L Normal 29-103 U/L [employer] Other Amylase [Enzymatic activity/ volume] in Serum or PlasmaOrdered By: Maribeth Vuong on 07-15-2022 Amylase [Catalytic activity/Vol] 43 U/L 29-103 [facility] Basophils Auto (Bld) [#/Vol] Ordered By: Maribeth Vuong on 07-15-2022 Basophils (Bld) [#/Vol] 0.0 10*3/uL 0.0-0.2 [facility] Basophils/100 WBC Auto (Bld) Ordered By: Maribeth Vuong on 07-15-2022 Basophils/100 WBC (Bld) 0.5 % . [facility] CBC W MANUAL DIFFon 07-16-19 23 ATYPICAL LYMPH # Normal [facility] Comment on above: Performed By: #### C JEAN ####[facility] [address] [place] [id number]. Sydney David ATYPICAL LYMPH % Normal [facility] Comment on above: Performed By: #### C JEAN ####[facility] [address] [place] [phone]. Sydney David BAND # 0.1 103/ul Normal 0.0-0.3 [facility] Comment on above: Performed By: #### C JEAN ####[facility] [address] [place] [address]Dr. Sydney David BAND % 1 % Normal 0-5 [facility] Comment on above: Performed By: #### C JEAN ####[facility] [address] [place] [address]Dr. Sydney David BASOM # 0.00 103/ul Normal 0.00-0.10 [facility] Comment on above: Performed By: #### C JAEN ####[facility] [address] [place] [address]Dr. Sydney Frankie BASOM % 0.0 % Critically low 0.2-2.0 [facility] Comment on above: Performed By: #### C JEAN ####[facility] [address] [place] [address]Dr. Sydney David BLAST # Normal [facility] Comment on above: Performed By: #### C JEAN ####[facility] [address] [place] [phone]. Keymera David BLAST % Normal [facility] Comment on above: Performed By: #### C JEAN ####[facility] [address] [place] [address]Dr. Sydney David CORRECTED WBC Normal 4.0-11.0 [facility] Comment on above: Performed By: #### C JEAN ####[facility] [address] [place], [place] [address]DrIbrahima David EOS # 0.24 103/ul Normal 0.00-0.70 [facility] Comment on above: Performed By: #### C JEAN ####[facility] [address] [place] [phone]. Sydney David EOS% 3.0 % Normal 0.9-7.0 [facility] Comment on above: Performed By: #### C JEAN ####[facility] [address]spx[address] [place] [phone]. Sydney David HCT 46.4 % Normal 42.0-54.0 [facility] Comment on above: Performed By: #### C JEAN ####[facility] [address] [place] [phone]. Sydney David HGB 15.4 g/dl Normal 14.0-18.0 [facility] Comment on above: Performed By: #### C JEAN ####[facility] [address]aws[address] [place] [phone]. Sydney David LYMPHM # 3.36 103/ul Normal 1.20-3.80 [facility] Comment on above: Performed By: #### C JEAN ####[facility] [address]ie[address] [place] [phone]. Sydney David LYMPHM% 42.0 % Normal 20.5-60.0 [facility] Comment on above: Performed By: #### C JEAN ####[facility] Zh[address]nczf[address] [place] [phone]. Sydney David MCH 30.3 pg Normal 25.9-34.0 [facility] Comment on above: Performed By: #### C JEAN ####[facility] [address]ffs[address] [place] [phone]. Sydney David MCHC 33.2 g/dl Normal 29.9-35.2 [facility] Comment on above: Performed By: #### C JEAN ####[facility] Ifeourvsza[address] [place] [phone] David MCV 91.3 fL Normal 80.0-94.0 [facility] Comment on above: Performed By: #### C JEAN ####[facility] [address] [place], [place] [address]Dw. Sydney David METAMYELOCYTE # Normal [facility] Comment on above: Performed By: #### C JEAN ####[facility] Zalrzdkwpp[address] [place], [place] [address]By. Sydney David METAMYELOCYTE % Normal [facility] Comment on above: Performed By: #### C JEAN ####[facility] [address]jctsw[address] [place] [phone]. Sydney David MONOM# 0.80 103/ul Normal 0.30-0.80 [facility] Comment on above: Performed By: #### C JEAN ####[facility] F[address]yxqal[address] [place] [phone]. Sydney David MONOM% 10.0 % Normal 1.7-12.0 [facility] Comment on above: Performed By: #### C JEAN ####[facility] [address]pg[address] [place] [phone]. Sydney David MPV 11.8 fL Normal 9.5-13.5 [facility] Comment on above: Performed By: #### Maya PENA ####[facility] [address]aco[address] [place] [phone]. Sydney David MYELOCYTE # Normal [facility] Comment on above: Performed By: #### C JEAN ####[facility] Ez[address]ff[address]apw[address] [place] [phone]. Sydney David MYELOCYTE % Normal [facility] Comment on above: Performed By: #### C JEAN ####[facility] [address] [place] [phone]. Sydney David NRBC Normal [facility] Comment on above: Performed By: #### C JEAN ####[facility] [address]zr[address] [place] [phone]. Sydney David PLT 249 103/ul Normal 150-450 [facility] Comment on above: Performed By: #### C JEAN ####[facility] Qwnpcqkwdj[address] [place], [place] [address]Rl. Sydney David RBC 5.08 106/ul Normal 4.70-6.10 [facility] Comment on above: Performed By: #### Maya PENA ####[facility] E[address]qdw[address]25[address] [place], [place] [address]Ke. Sydney David RDW 13.1 % Normal 11.0-15.0 [facility] Comment on above: Performed By: #### Maya PENA ####[facility] [address] [place], [place] [address]Jj. Sydney David SEG # 3.52 103/ul Normal 1.40-6.50 [facility] Comment on above: Performed By: #### Maya PENA ####[facility] Zgjmwenaei[address] [place], [place] [address]Wm. Sydney David SEG % 44.0 % Normal 43.0-75.0 [facility] Comment on above: Performed By: #### Maya PENA ####[facility] Refzduoyki[address]17 [place], [place] [address]Qz. Sydney David WBC 8.0 103/ul Normal 4.0-11.0 [facility] Comment on above: Performed By: #### Maya PENA ####[facility] Sqlahlsypo[address] [place], [place] [address] ABD/PELV W CONon 07-16-19 [...] by: EVANGELIST LEOS Date: 2022-07-15 16:53 Normal [facility] Complete Blood Count Auto Di ffon 07-15-2022 Basophils (Bld) [#/Vol] 0.0 10*3/uL Normal 0.0-0.2 [facility] Comment on above: Order Comment: Reaso n for Exam Medication monitoring encounter Result Comment: PERF ORMED BY: [place] [address] PATHOLOGIST ADMINISTRATIVE SUPPORT SPECIALIST ALEM GARCIA M.D. Performed By: #### C BC, POOJA, LIPASE #### [address] Basophils/100 WBC (Bld) 0.5 % Normal . [facility] Comment on above: Order Comment: Reaso n for Exam Medication monitoring encounter Performed By: #### C BC, POOJA, LIPASE #### [address] Eosinophils (Bld) [#/Vol] 0.6 10*3/uL High 0.0-0.45 [facility] Comment on above: Order Comment: Reaso n for Exam Medication monitoring encounter Performed By: #### C BC, POOJA, LIPASE #### [address] Eosinophils/100 WBC (Bld) 6.1 % Normal . [facility] Comment on above: Order Comment: Reaso n for Exam Medication monitoring encounter Performed By: #### C BC, POOJA, LIPASE #### [address] Erythrocyte distribution width (RBC) [Ratio] 13.6 % Normal 12.0-14.8 [facility] Comment on above: Order Comment: Reaso n for Exam Medication monitoring encounter Performed By: #### C BC, POOJA, LIPASE #### [address] Hematocrit (Bld) [Volume fraction] 47.4 % Normal 38.8-50.0 [facility] Comment on above: Order Comment: Reaso n for Exam Medication monitoring encounter Performed By: #### C BC, POOJA, LIPASE #### [address] Hemoglobin (Bld) [Mass/Vol] 15.5 g/dL Normal 13.0-17.0 [facility] Comment on above: Order Comment: Reaso n for Exam Medication monitoring encounter Performed By: #### C BC, POOJA, LIPASE #### [address] Lymphocytes (Bld) [#/Vol] 4.3 10*3/uL Normal 1.00-4.8 [facility] Comment on above: Order Comment: Reaso n for Exam Medication monitoring encounter Performed By: #### C BC, POOJA, LIPASE #### [address] Lymphocytes/100 WBC (Bld) 46.5 % Normal . [facility] Comment on above: Order Comment: Reaso n for Exam Medication monitoring encounter Performed By: #### C BC, POOJA, LIPASE #### [address] MCH (RBC) [Entitic mass] 30.2 pg Normal 27.5-35.2 [facility] Comment on above: Order Comment: Reaso n for Exam Medication monitoring encounter Performed By: #### C BC, POOJA, LIPASE #### [address] MCV (RBC) [Entitic vol] 92.3 fL Normal 83.5-101 [facility] Comment on above: Order Comment: Reaso n for Exam Medication monitoring encounter Performed By: #### C BC, POOJA, LIPASE #### [address] [place] [address] [place] Mean Corpuscular HGB Conc 32.7 g/dL Normal 32.5-35.6 [facility] Comment on above: Order Comment: Reaso n for Exam Medication monitoring encounter Performed By: #### C BC, POOJA, LIPASE #### [address] Monocytes (Bld) [#/Vol] 0.8 10*3/uL Normal 0.0-0.8 [facility] Comment on above: Order Comment: Reaso n for Exam Medication monitoring encounter Performed By: #### C BC, POOJA, LIPASE #### [address] Monocytes/100 WBC (Bld) 8.3 % Normal . [facility] Comment on above: Order Comment: Reaso n for Exam Medication monitoring encounter Performed By: #### C BC, POOJA, LIPASE #### [address] Neutrophils (Bld) [#/Vol] 3.6 10*3/uL Normal 1.8-7.7 [facility] Comment on above: Order Comment: Reaso n for Exam Medication monitoring encounter Performed By: #### C BC, POOJA, LIPASE #### [address] Neutrophils/100 WBC (Bld) 38.6 % Normal . [facility] Comment on above: Order Comment: Reaso n for Exam Medication monitoring encounter Performed By: #### C BC, POOJA, LIPASE #### [address] NRBC% 0.0 /100{WBC} Normal 0-0.5 [facility] Comment on above: Order Comment: Reaso n for Exam Medication monitoring encounter Performed By: #### C BC, POOJA, LIPASE #### [address] Platelet mean volume (Bld) [Entitic vol] 11.1 fL High 6.6-10.1 [facility] Comment on above: Order Comment: Reaso n for Exam Medication monitoring encounter Performed By: #### C BC, POOJA, LIPASE #### [facility] [address] WBC (Bld) [#/Vol] 9.2 10*3/uL Normal 4.1-10.5 [facility] Comment on above: Order Comment: Reaso n for Exam Medication monitoring encounter Performed By: #### C BC, POOJA, LIPASE #### [facility] [address] [place] [id number] [facility] Basophils (Bld) [#/Vol] 0.494542573 10*3/uL Normal 0.0-0.2 10*3/uL [employer] Other Basophils/100 WBC (Bld) 0.500 % . % [facility] [employer] Other Eosinophils (Bld) [#/Vol] 0.132699094 10*3/uL High 0.0-0.45 10*3/uL [employer] Other Eosinophils/100 WBC (Bld) 6.100 % . % [employer] Other Erythrocyte distribution width (RBC) [Ratio] 13.600 % Normal 12.0-14.8 % [employer] Other Hematocrit (Bld) [Volume fraction] 47.400 % Normal 38.8-50.0 % [employer] Other Hemoglobin (Bld) [Mass/Vol] 15.859289 g/dL Normal 13.0-17.0 g/dL [employer] Other Lymphocytes (Bld) [#/Vol] 4.418504416 10*3/uL Normal 1.00-4.8 10*3/uL [employer] Other Lymphocytes/100 WBC (Bld) 46.500 % . % [employer] Other MCH (RBC) [Entitic mass] 30.2000 pg Normal 27.5-35.2 pg [employer] Other MCV (RBC) [Entitic vol] 92.3000 fL Normal 83.5-101 fL [employer] Other Monocytes (Bld) [#/Vol] 0.164401773 10*3/uL Normal 0.0-0.8 10*3/uL [employer] Other Monocytes/100 WBC (Bld) 8.300 % . % N [employer] Other Neutrophils (Bld) [#/Vol] 3.152255085 10*3/uL Normal 1.8-7.7 10*3/uL [employer] Other Neutrophils/100 WBC (Bld) 38.600 % . % [employer] Other Platelet mean volume (Bld) [Entitic vol] 11.1000 fL High 6.6-10.1 fL [employer] Other WBC (Bld) [#/Vol] 9.613067196 10*3/uL Normal 4.1 -10.5 10*3/uL [employer] Other Complete Blood Count Auto Diff 9.2 10*3/uL Normal 4.1-10.5 10*3/uL [employer] Other Complete Blood Count Auto Diff 32.7 g/dL Normal 32.5-35.6 g/dL [employer] Other Complete Blood Count Auto Diff 0.0 /100{WBC} Normal 0-0.5 /100{WBC} [employer] Other Complete Blood Count Auto Di ffOrdered By: Maribeth Vuong on 07-15-2022 Platelets (Bld) [#/Vol] 236 10*3/uL Normal 150-450 [facility] Comment on above: Order Comment: Reaso n for Exam Medication monitoring encounter Performed By: #### C BC, POOJA, LIPASE #### [address] RBC (Bld) [#/Vol] 5.13 10*6/uL Normal 3.90-5.60 [facility] Comment on above: Order Comment: Reaso n for Exam Medication monitoring encounter Performed By: #### C BC, POOJA, LIPASE #### [facility] [address] ER URINE PROFILEon 3 Bilirubin Ql (U) Negative Normal NEGATIVE [facility] Comment on above: Performed By: #### E RUR ####[facility] [address] [place] [address]Dr. Keymera David Clarity (U) CLEAR Normal CLEAR [facility] Comment on above: Performed By: #### E RUR ####[facility] [address] [place], [place] [address]Dr. Yilan David Color (U) LT. YELLOW Normal YELLOW [facility] Comment on above: Performed By: #### E RUR ####[facility] I[address] [place], [place] [address]Dr. Sydney David ERUAHD A micrscopic examination will be performed if indicated. Normal [facility] Comment on above: Performed By: #### E RUR ####[facility] Rybpq[address]zf[address] [place], [place] [address]Dr. Yilan David Glucose Ql (U) Negative Normal NEGATIVE [facility] Comment on above: Performed By: #### E RUR ####[facility] [address] [place], [place] [address]Dr. Yilan David Hemoglobin Ql (U) Negative Normal NEGATIVE [facility] Comment on above: Performed By: #### E RUR ####[facility] D[address]zxitfc[address] [place], [place] [address]Dr. Yilan David Ketones Ql (U) Negative Normal NEGATIVE [facility] Comment on above: Performed By: #### E RUR ####[facility] Q[address]vfs[address]pa[address] [place], [place] [address]Dr. Yilan David LEUKOCYTES Negative Normal NEGATIVE [facility] Comment on above: Performed By: #### E RUR ####[facility] Ttlllsp[address] [place] [address]Dr. Sydney David Nitrite Ql (U) Negative Normal NEGATIVE [facility] Comment on above: Performed By: #### E RUR ####[facility] [address]ws[address] [place] [address]Dr. Sydney David pH (U) 5.5 [pH] Normal 5-9 [facility] Comment on above: Performed By: #### E RUR ####[facility] [address] [place], [place] [address]Dr. Sydney David SPEC GRAVITY 1.010 Normal 1.005-<=1.0 25 [facility] Comment on above: Performed By: #### E RUR ####[facility] Qtjvbivjwh[address] [place], [place] [address]Dr. Sydney David UA PROTEIN Negative Normal NEGATIVE/ TRACE [facility] Comment on above: Performed By: #### E RUR ####[facility] Hzwcaoklaz[address] [place], [place] [address]Dr. Sydney David UR MICRO IND NOT INDICATED Normal [facility] Comment on above: Performed By: #### E RUR ####[facility] [address] [place], [place] [address]Dr. Sydney David Urobilinogen Qn (U) 0.2 {Johan'U}/dL Normal 0.2 - 1. 0 [facility] Comment on above: Performed By: #### E RUR ####[facility] [address] [place], [place] [address]Dr. Sydney Frankie Eosinophils Auto (Bld) [#/Vo l]Ordered By: Maribeth Vuong on 07-15-2022 Eosinophils (Bld) [#/Vol] 0.6 10*3/uL 0.0-0.45 [facility] Eosinophils/100 WBC Auto (Bl d)Ordered By: Maribeth Vuong on 07-15-2022 Eosinophils/100 WBC (Bld) 6.1 % . [facility] Erythrocyte distribution wid th Auto (RBC) [Ratio]Ordered By: Maribeth Vuong on 07-15-2022 Erythrocyte distribution width (RBC) [Ratio] 13.6 % 12.0-14.8 [facility] Hematocrit Auto (Bld) [Volum e fraction]Ordered By: Maribeth Vuong on 07-15-2022 Hematocrit (Bld) [Volume fraction] 47.4 % 38.8-50.0 [facility] Hemoglobin [Mass/volume] in BloodOrdered By: Maribeth Vuong on 07-15-2022 Hemoglobin (Bld) [Mass/Vol] 15.5 g/dL 13.0-17.0 [facility] Leukocytes [#/volume] correc gris for nucleated erythrocytes in Blood by Automated counOrdered By: Maribeth Vuong on 07-15-2022 WBC corrected for nucl RBC Auto (Bld) [#/Vol] 9.2 10*3/uL 4.1-10.5 [facility] Lipaseon 07-15-2022 Lipase [Catalytic activity/Vol] 80.0 U/L Normal 11.0-82.0 [facility] Comment on above: Order Comment: Reaso n for Exam Generalized abdominal pain;Slow transit constipation;Medicat Reason for Exam Generalized abdominal pain;Medication monitoring encounter NOT FASTING. JKW Result Comment: PERF ORMED BY: [place] [address] PATHOLOGIST ADMINISTRATIVE SUPPORT SPECIALIST ALEM GARCIA M.D. Performed By: #### C BC, POOJA, LIPASE #### [address] Lipase [Catalytic activity/Vol] 80.98999 U/L Normal 11.0-82.0 U/L [employer] Other Lipase [Enzymatic activity/v olume] in Serum or PlasmaOrdered By: Maribeth Vuong on 07-15-2022 Lipase [Catalytic activity/Vol] 80.0 U/L 11.0-82.0 [facility] Lymphocytes Auto (Bld) [#/Vo l]Ordered By: Maribeth Vuong on 07-15-2022 Lymphocytes (Bld) [#/Vol] 4.3 10*3/uL 1.00-4.8 [facility] Lymphocytes/100 WBC Auto (Bl d)Ordered By: Maribeth Vuong on 07-15-2022 Lymphocytes/100 WBC (Bld) 46.5 % . [facility] MCH Auto (RBC) [Entitic mass ]Ordered By: Maribeth Vuong on 07-15-2022 MCH (RBC) [Entitic mass] 30.2 pg 27.5-35.2 [facility] MCHC Auto (RBC) [Mass/Vol]Or dered By: Maribeth Vuong on 07-15-2022 MCHC (RBC) [Mass/Vol] 32.7 g/dL 32.5-35.6 [facility] MCV Auto (RBC) [Entitic vol] Ordered By: Maribeth Vuong on 07-15-2022 MCV (RBC) [Entitic vol] 92.3 fL 83.5-101 [facility] Monocytes Auto (Bld) [#/Vol] Ordered By: Maribeth Vuong on 07-15-2022 Monocytes (Bld) [#/Vol] 0.8 10*3/uL 0.0-0.8 [facility] Monocytes/100 WBC Auto (Bld) Ordered By: Maribeth Vuong on 07-15-2022 Monocytes/100 WBC (Bld) 8.3 % . [facility] Neutrophils Auto (Bld) [#/Vo l]Ordered By: Maribeth Vuong on 07-15-2022 Neutrophils (Bld) [#/Vol] 3.6 10*3/uL 1.8-7.7 [facility] Neutrophils/100 WBC Auto (Bl d)Ordered By: Maribeth Vuong on 07-15-2022 Neutrophils/100 WBC (Bld) 38.6 % . [facility] Nucleated erythrocytes [Pres ence] in Blood by Automated countOrdered By: Maribeth Vuong on 07-15-2022 Nucleated RBC Auto Ql (Bld) 0.0 /100{WBC} 0-0.5 [facility] PROF CHEM 8 (BAS METB)on Anion gap [Moles/Vol] 13.3 mmol/L Normal Th e [facility] Comment on above: Performed By: #### B MP #### [facility] [address] [address] [address] Sydney David Calcium [Mass/Vol] 9.1 mg/dL Normal 8.5-10.1 [facility] [place] Comment on above: Performed By: #### B MP #### [facility] [address] [address] [address] Sydney David Chloride [Moles/Vol] 102 mmol/L Normal 98-107 [facility] Comment on above: Performed By: #### B MP #### [facility] [address] [place] [address] Dr. Sydney Davdi CO2 [Moles/Vol] 27.2 mmol/L Normal 21.0-32.0 [facility] Comment on above: Performed By: #### B MP #### [facility] [address] [place] [address] Dr. Sydney David Creatinine [Mass/Vol] 1.08 mg/dL Normal 0.70-1.30 [facility] Comment on above: Performed By: #### B MP #### [facility] [address] [place] [address] Dr. Sydney David EGFR-AF MALIAN >60 Normal >=60 [facility] Comment on above: Performed By: #### B MP #### [facility] [address] [place] [address] Dr. Sydney David EGFR-NON AF MALIAN >60 Normal >=60 [facility] Comment on above: Performed By: #### B MP #### [facility] [address] [place] [address] Dr. Sydney David Glucose [Mass/Vol] 116 mg/dL Critically high 74-106 [facility] Comment on above: Performed By: #### B MP #### [facility] [address] [place] [address] Dr. Sydney David Potassium [Moles/Vol] 3.5 mmol/L Normal 3.5-5.1 [facility] Comment on above: Performed By: #### B MP #### [facility] [address] [place] [address] Dr. Sydney David Sodium [Moles/Vol] 139 mmol/L Normal 136-145 [facility] Comment on above: Performed By: #### B MP #### [facility] [facility] [address] [address] [address] Sydney David Urea nitrogen [Mass/Vol] 12.0 mg/dL Normal 7.0-18.0 [facility] Comment on above: Performed By: #### B MP #### [facility] [address] [address] [address] Sydney David Urea nitrogen/Creatinine [Mass ratio] 11.1 mg/mg Normal [facility] Comment on above: Performed By: #### B MP #### [facility] [address] [address] [address] Sydney David Platelet mean volume Auto (B ld) [Entitic vol]Ordered By: Maribeth Vuong on 07-15-2022 Platelet mean volume (Bld) [Entitic vol] 11.1 fL 6.6-10.1 [facility] WBC Auto (Bld) [#/Vol]Ordere d By: Maribeth Vuong on 07-15-2022 WBC (Bld) [#/Vol] 9.2 10*3/uL 4.1-10.5 [facility] XR KUBon 07-15-2022 XR KUB [facility] [place] [address] XRay Report Signed Patient: Neal Irene MR#: [id number] 206 : 1980 Acct:[id number] Age/Sex: 41 / M ADM Date: 07/15/22 Loc: [facility] Room: Type: [facility] CLI Attending Dr: Maribeth Vuong DO Copies [...] Greer Jr., DMarylin07/15/2022 4:05 PM Dictation Location: [place] [address] Transcribed By: JIL 07/15/22 160 Dictated By: Sonny Greer Jr, DO 07/15/22 160 Signed By: 07/15/22 160 Normal [facility] Alanine aminotransferase [En zymatic activity/volume] in Serum or PlasmaOrdered By: Maribeth Vuong on 07-12-2022 ALT [Catalytic activity/Vol] 68 U/L 7-52 [facility] Albumin [Mass/volume] in Ser um or Plasma by Bromocresol green (BCG) dye binding methoOrdered By: Maribeth Vuong on 07-12-2022 Albumin BCG dye [Mass/Vol] 4.7 g/dL 3.5-5.7 [facility] Alkaline phosphatase [Enzyma tic activity/volume] in Serum or PlasmaOrdered By: Maribeth Vuong on 07-12-2022 ALP [Catalytic activity/Vol] 33 U/L 34-104 [facility] Aspartate aminotransferase [ Enzymatic activity/volume] in Serum or PlasmaOrdered By: Maribeth Vuong on 07-12-2022 AST [Catalytic activity/Vol] 29 U/L 13-39 [facility] Bilirubin.total [Mass/volume ] in Serum or PlasmaOrdered By: Maribeth Vuong on 07-12-2022 Bilirubin [Mass/Vol] 0.6 mg/dL 0.3-1.0 [facility] Calcium [Mass/volume] in Ser um or PlasmaOrdered By: Maribeth Vuong 07-12-2022 Calcium [Mass/Vol] 10.1 mg/dL 8.6-10.3 [facility] Carbon dioxide, total [Moles /volume] in Serum or PlasmaOrdered By: Maribeth Vuong on 07-12-2022 CO2 [Moles/Vol] 27.5 mmol/L 21.0-31.0 [facility] Chloride [Moles/volume] in S flash or PlasmaOrdered By: Maribeth Vuong on 07-12-2022 Chloride [Moles/Vol] 106 mmol/L 98-107 [facility] Cholesterol [Mass/volume] in Serum or PlasmaOrdered By: Maribeth Vuong on 07-12-2022 Cholesterol [Mass/Vol] 296 mg/dL 140-200 [facility] Comment on above: Chol less than 200 m g/dl low riskChol 201-239 mg/dl borderline riskChol 240 mg/dl and greater high risk Cholesterol in LDL Calc [Mas s/Vol]Ordered By: Maribeth Vuong on 07-12-2022 Cholesterol in LDL [Mass/Vol] 206 mg/dL 0-100 [facility] Comment on above: LDL ATP III CLASSIFI CATIONLDL less than 100 mg/dL OptimalLDL 100-129 mg/dL Near or above optimalLDL 130-159 mg/dL Borderline highLDL 160-189 mg/dL HighLDL greater than 189 mg/dL Very high Cholesterol in VLDL Calc [Ma ss/Vol]Ordered By: Maribeth Vuong on 07-12-2022 Cholesterol in VLDL [Mass/Vol] 53 mg/dL [facility] Comprehensive Metabolic Pane jenni 07-12-2022 Albumin [Mass/Vol] 4.7 g/dL Normal 3.5-5.7 [facility] Comment on above: Order Comment: PT FA STED 12 HOURS Reason for Exam Well adult exam;Lipid disorder;Medication monitoring encount Reason for Exam Lipid disorder Performed By: #### L IPID, PSAS W RFX, CMP #### [facility] [address] [place] [address] Albumin/Globulin [Mass ratio] 1.8 {ratio} Normal [facility] Comment on above: Order Comment: PT FA STED 12 HOURS Reason for Exam Well adult exam;Lipid disorder;Medication monitoring encount Reason for Exam Lipid disorder Performed By: #### L IPID, PSAS W RFX, CMP #### [facility] [address] [id number] [place] ALP [Catalytic activity/Vol] 33 U/L Low 34-104 [facility] Comment on above: Order Comment: PT FA STED 12 HOURS Reason for Exam Well adult exam;Lipid disorder;Medication monitoring encount Reason for Exam Lipid disorder Performed By: #### L IPID, PSAS W RFX, CMP #### [facility] [address] [id number] [place] ALT [Catalytic activity/Vol] 68 U/L High 7-52 [facility] Comment on above: Order Comment: PT FA STED 12 HOURS Reason for Exam Well adult exam;Lipid disorder;Medication monitoring encount Reason for Exam Lipid disorder Performed By: #### L IPID, PSAS W RFX, CMP #### [facility] [address] Anion gap [Moles/Vol] 11.8 mmol/L Normal 6.0-15.0 [facility] Comment on above: Order Comment: PT FA STED 12 HOURS Reason for Exam Well adult exam;Lipid disorder;Medication monitoring encount Reason for Exam Lipid disorder Performed By: #### L IPID, PSAS W RFX, CMP #### [facility] [address] AST [Catalytic activity/Vol] 29 U/L Normal 13-39 [facility] Comment on above: Order Comment: PT FA STED 12 HOURS Reason for Exam Well adult exam;Lipid disorder;Medication monitoring encount Reason for Exam Lipid disorder Performed By: #### L IPID, PSAS W RFX, CMP #### [facility] [address] [place] [address] Bilirubin [Mass/Vol] 0.6 mg/dL Normal 0.3-1.0 [facility] Comment on above: Order Comment: PT FA STED 12 HOURS Reason for Exam Well adult exam;Lipid disorder;Medication monitoring encount Reason for Exam Lipid disorder Performed By: #### L IPID, PSAS W RFX, CMP #### [facility] [address] Calcium [Mass/Vol] 10.1 mg/dL Normal 8.6-10.3 [facility] Comment on above: Order Comment: PT FA STED 12 HOURS Reason for Exam Well adult exam;Lipid disorder;Medication monitoring encount Reason for Exam Lipid disorder Performed By: #### L IPID, PSAS W RFX, CMP #### [facility] [address] Chloride [Moles/Vol] 106 mmol/L Normal 98-107 [facility] Comment on above: Order Comment: PT FA STED 12 HOURS Reason for Exam Well adult exam;Lipid disorder;Medication monitoring encount Reason for Exam Lipid disorder Performed By: #### L SOLOMON PSAS W RFX, CMP #### [facility] [address] CO2 [Moles/Vol] 27.5 mmol/L Normal 21.0-31.0 [facility] Comment on above: Order Comment: PT FA STED 12 HOURS Reason for Exam Well adult exam;Lipid disorder;Medication monitoring encount Reason for Exam Lipid disorder Performed By: #### L SOLOMON PSAS W RFX, CMP #### [facility] [address] [place] [address] Creatinine [Mass/Vol] 0.96 mg/dL Normal 0.70-1.[address] [facility] Comment on above: Order Comment: PT FA STED 12 HOURS Reason for Exam Well adult exam;Lipid disorder;Medication monitoring encount Reason for Exam Lipid disorder Performed By: #### L SOLOMON PSAS W RFX, CMP #### [facility] [address] [place] [address] GFR/1.73 sq M.predicted MDRD (S/P/Bld) [Vol rate/Area] mL/min/{1.73_m2} [facility] Comment on above: Order Comment: PT FA STED 12 HOURS Reason for Exam Well adult exam;Lipid disorder;Medication monitoring encount Reason for Exam Lipid disorder Performed By: #### L SOLOMON PSAS W RFX, CMP #### [facility] [address] Globulin (S) [Mass/Vol] 2.6 g/dL Normal [facility] Comment on above: Order Comment: PT FA STED 12 HOURS Reason for Exam Well adult exam;Lipid disorder;Medication monitoring encount Reason for Exam Lipid disorder Performed By: #### L IPDANNIELLE, PSAS W RFX, CMP #### [facility] [address] Glucose [Mass/Vol] 106 mg/dL High 70-100 [facility] Comment on above: Order Comment: PT FA STED 12 HOURS Reason for Exam Well adult exam;Lipid disorder;Medication monitoring encount Reason for Exam Lipid disorder Result Comment: [facility] Glucose Reference Range is dependent on time and content of last meal. Glucose of more than 200 mg/dL in a nonstressed, ambulatory subject supports the diagnosis of Diabetes Mellitus. ADA recommended reference range Performed By: #### L IPID, PSAS W RFX, CMP #### [facility] [address] [place] [address] [place] Potassium [Moles/Vol] 4.3 mmol/L Normal 3.5-5.[address] [facility] Comment on above: Order Comment: PT FA STED 12 HOURS Reason for Exam Well adult exam;Lipid disorder;Medication monitoring encount Reason for Exam Lipid disorder Performed By: #### L IPID, PSAS W RFX, CMP #### [facility] [address] Protein [Mass/Vol] 7.3 g/dL Normal 6.4-8.9 [facility] Comment on above: Order Comment: PT FA STED 12 HOURS Reason for Exam Well adult exam;Lipid disorder;Medication monitoring encount Reason for Exam Lipid disorder Performed By: #### L IPID, PSAS W RFX, CMP #### [facility] [address] [place] [address] [place] Sodium [Moles/Vol] 141 mmol/L Normal 136-145 [facility] Comment on above: Order Comment: PT FA STED 12 HOURS Reason for Exam Well adult exam;Lipid disorder;Medication monitoring encount Reason for Exam Lipid disorder Performed By: #### L IPID, PSAS W RFX, CMP #### [facility] [address] [id number] [place] Urea nitrogen [Mass/Vol] 12 mg/dL Normal 7-25 [facility] Comment on above: Order Comment: PT FA STED 12 HOURS Reason for Exam Well adult exam;Lipid disorder;Medication monitoring encount Reason for Exam Lipid disorder Performed By: #### L IPID, PSAS W RFX, CMP #### [facility] [address] [id number] [place] Creatinine [Mass/volume] in Serum or PlasmaOrdered By: Maribeth Vuong on 07-12-2022 Creatinine [Mass/Vol] 0.96 mg/dL 0.70-1.[address] [facility] Globulin Calc (S) [Mass/Vol] Ordered By: Maribeth Woodymer on 07-12-2022 Globulin (S) [Mass/Vol] 2.6 g/dL [facility] Glucose [Mass/volume] in Ser um or PlasmaOrdered By: Maribeth Woodymer on 07-12-2022 Glucose [Mass/Vol] 106 mg/dL 70-100 [facility] Comment on above: ADA recommended refe rence rangeRandom Glucose Reference Range is dependent on time and content of last meal. Glucose of more than 200 mg/dL in a nonstressed, ambulatory subject supports the diagnosis of Diabetes Mellitus. Lipid Panelon 07-12-2022 Cholesterol [Mass/Vol] 296 mg/dL High 140-200 [facility] Comment on above: Order Comment: PT FA STED 12 HOURS Reason for Exam Well adult exam;Lipid disorder;Medication monitoring encount Reason for Exam Lipid disorder Result Comment: Chol less than 200 mg/dl low risk Chol 201-239 mg/dl borderline risk Chol 240 mg/dl and greater high risk Performed By: #### L IPID, PSAS W RFX, CMP #### [facility] [address] Cholesterol in HDL [Mass/Vol] 37 mg/dL Normal 29-71 [facility] Comment on above: Order Comment: PT FA STED 12 HOURS Reason for Exam Well adult exam;Lipid disorder;Medication monitoring encount Reason for Exam Lipid disorder Result Comment: HDL CHOL ATP-III CLASSIFICATION Cardiovascular Risk HDL > or equal to 60 mg/dL LOW HDL < 40 mg/dL HIGH Performed By: #### L IPID, PSAS W RFX, CMP #### [facility] [address] [id number] [facility] Cholesterol.total/Patti sterol in HDL [Mass ratio] 8.0 {ratio} Normal <5.0 [facility] Comment on above: Order Comment: PT FA STED 12 HOURS Reason for Exam Well adult exam;Lipid disorder;Medication monitoring encount Reason for Exam Lipid disorder Result Comment: PERF ORMED BY: [facility] [address] [place] [address] PATHOLOGIST ADMINISTRATIVE SUPPORT SPECIALIST ALEM GARCIA M.D. Performed By: #### L IPID, PSAS W RFX, CMP #### [facility] [address] [place] [address] LDL Cholesterol,Calculated 206 mg/dL High 0-100 [facility] Comment on above: Order Comment: PT [...] L IPID, PSAS W RFX, CMP #### [facility] [address] [place] [address] Triglyceride w/Reflex 266 mg/dL High 0-[address] [facility] Comment on above: Order Comment: PT [...] L IPID, PSAS W RFX, CMP #### [facility] [address] [place] [address] VLDL CHOLESTEROL 53 mg/dL Normal [facility] Comment on above: Order Comment: PT FA STED 12 HOURS Reason for Exam Well adult exam;Lipid disorder;Medication monitoring encount Reason for Exam Lipid disorder Performed By: #### L IPID, PSAS W RFX, CMP #### [facility] [address] [place] [address] No Panel InformationOrdered By: Maribeth Vuong on 07-12-2022 Estimated GFR (CKD-EPI) > 60.0 mL/Min [facility] Creatinine Clearance (Chem N/A [facility] PSA Screen (Yearly) w/Reflex on 07-12-2022 PSA Screen (Yearly) w/Reflex 0.670 ng/mL Normal 0.000-4.000 [facility] Comment on above: Order Comment: Reaso n for Exam Well adult exam;Prostate cancer screening Is patient <50 yrs? Medicare does not pay <50.: Y What is the date of the last PSA Screen?: N/A Is Medicare the insurance?: N Did you verify eligibility (Dx Time) check TestViewGp: YES TO ALL Result Comment: PERF ORMED BY: [place] [address] PATHOLOGIST ADMINISTRATIVE SUPPORT SPECIALIST ALEM GARCIA M.D. Performed By: #### L IPID, PSAS W RFX, CMP #### [address] Potassium [Moles/volume] in Serum or PlasmaOrdered By: Maribeth Vuong on 07-12-2022 Potassium [Moles/Vol] 4.3 mmol/L 3.5-5.[address] [facility] Prostate specific Ag [Mass/v olume] in Serum or PlasmaOrdered By: Maribeth Vuong on 07-12-2022 Prostate specific Ag [Mass/Vol] 0.670 ng/mL 0.000-4.000 [facility] Protein [Mass/volume] in Ser um or PlasmaOrdered By: Maribeth Vuong on 07-12-2022 Protein [Mass/Vol] 7.3 g/dL 6.4-8.9 [facility] Serum or plasma albumin/glob ulin mass ratioOrdered By: Maribeth Vuong on 07-12-2022 Albumin/Globulin [Mass ratio] 1.8 {ratio} [facility] Serum or plasma anion gap de terminationOrdered By: Maribeht Vuong on 07-12-2022 Anion gap [Moles/Vol] 11.8 mmol/L 6.0-15.0 [facility] Serum or plasma high density lipoprotein (HDL) cholesterol measurementOrdered By: Maribeth Vuong on 07-12-2022 Cholesterol in HDL [Mass/Vol] 37 mg/dL 29-71 [facility] Comment on above: HDL CHOL ATP-III CLA SSIFICATION Cardiovascular RiskHDL > or equal to 60 mg/dL LOWHDL < 40 mg/dL HIGH Serum or plasma total choles terol/high density lipoprotein (HDL) cholesterol mass ratOrdered By: Maribeth Vuong on 07-12-2022 Cholesterol.total/Patti sterol in HDL [Mass ratio] 8.0 {ratio} <5.0 [facility] Sodium [Moles/volume] in Ser um or PlasmaOrdered By: Maribeth Vuong on 07-12-2022 Sodium [Moles/Vol] 141 mmol/L 136-145 [facility] Triglyceride [Mass/volume] i n Serum or PlasmaOrdered By: Maribeth Vuong on 07-12-2022 Triglyceride [Mass/Vol] 266 mg/dL 0-149 [facility] Comment on above: TRIG ATP III CLASSIF ICATIONTRIG less than 150 mg/dL NormalTRIG 150-199 mg/dL Borderline highTRIG 200-500 mg/dL High TRIG greater than 500 mg/dL Very highStandard traceable to the Center for Disease Conrtrol and Prevention (CDC) test method. Urea nitrogen [Mass/volume] in Serum or PlasmaOrdered By: Maribeth Vuong on 07-12-2022 Urea nitrogen [Mass/Vol] 12 mg/dL 10-29 [facility] XR LSPINE 2_3 VIEWSon 2022 XR LSPINE [...] DAMARIS ESPINOSA Date: 2022-07-02 14:57 Normal [facility] MRI PELVIS WO CONon 03-23-20 23 MRI [...] by: DAMARIS ESPINOSA Date: 2022-06-27 09:45 Normal [facility] MRI LSPINE WO CONon 06-27-19 MRI LSPINE [...] by: RENE LAUREN Date: 2022-06-26 15:24 Normal [facility] XR lumbar spine AP/LAT/FLX/E XTon 01-08-2021 XR lumbar spine AP/LAT/FLX/EXT [facility] Other XR lumbar spine AP/LAT/FLX/EXT [facility] Other XR lumbar spine AP/LAT/FLX/EXT [address] [place] [address] [facility] Other XR lumbar spine AP/LAT/FLX/[place] [address] [employer] Other XR lumbar spine AP/LAT/FLX/EXT XRay Report [facility] Other XR lumbar spine AP/LAT/FLX/EXT Signed [facility] Other XR lumbar spine AP/LAT/FLX/EXT Patient: Neal Irene MR#: [id number] [facility] Other XR lumbar spine AP/LAT/FLX/EXT 206 [facility] Other XR lumbar spine AP/LAT/FLX/EXT : 1980 Acct:[id number] [facility] Other XR lumbar spine AP/LAT/FLX/EXT Age/Sex: 40 / M ADM Date: 01/08/21 [facility] Other XR lumbar spine AP/LAT/FLX/EXT Loc: [facility] Room: Type: REG CLI [facility] Other XR lumbar spine AP/LAT/FLX/EXT Attending Dr: Charles Solares MD [facility] Other XR lumbar spine AP/LAT/FLX/EXT Ordering Provider: Charles Solares MD [facility] Other XR lumbar spine AP/LAT/FLX/EXT Date of Service: 01/08/21 [facility] Other XR lumbar spine AP/LAT/FLX/EXT XR/XR lumbar spine AP/LAT/FLX/EXT: Other spondylosis with radiculopathy, [facility] Other XR lumbar spine AP/LAT/FLX/EXT lumbar region [facility] Other XR lumbar spine AP/LAT/FLX/EXT Copies to: Charles Solares MD [facility] Other XR lumbar spine AP/LAT/FLX/EXT Lumbar spine 01/08/2021. [facility] Other XR lumbar spine AP/LAT/FLX/EXT CLINICAL DATA: Low back pain. [facility] Other XR lumbar spine AP/LAT/FLX/EXT FINDINGS: 4 standing views of the lumbar spine were obtained including lateral views in the [facility] Other XR lumbar spine AP/LAT/FLX/EXT neutral, flexion, and extension positions. This examination is compared with a prior study 04/14/2019. [facility] Other XR lumbar spine AP/LAT/FLX/EXT There are stable postsurgical changes related to lumbosacral spinal fusion. There is also stable [facility] Other XR lumbar spine AP/LAT/FLX/EXT anterior malalignment of L5 on S1. Mild posterior malalignment of L2 on L3 is noted. Overall [facility] Other XR lumbar spine AP/LAT/FLX/EXT vertebral alignment does not significantly change with limited flexion or limited extension. Disc [facility] Other XR lumbar spine AP/LAT/FLX/EXT space narrowing is identified. Minimal degenerative changes are seen. [facility] Other XR lumbar spine AP/LAT/FLX/EXT XR/XR lumbar spine AP/LAT/FLX/EXT [facility] Other XR lumbar spine AP/LAT/FLX/EXT IMPRESSION: Stable postsurgical changes and mild vertebral malalignment at the lumbosacral junction. [facility] Other XR lumbar spine AP/LAT/FLX/EXT Mild posterior malalignment of L2 on L3. No instability with limited flexion or extension. Disc [facility] Other XR lumbar spine AP/LAT/FLX/EXT space narrowing and minimal degenerative changes. [facility] Other XR lumbar spine AP/LAT/FLX/EXT Impression dictated by: Jude Stock Jr., M.D.01/08/2021 2:59 PM [facility] Other XR lumbar spine AP/LAT/FLX/EXT Dictation Location: [place] [address] [facility] Other XR lumbar spine AP/LAT/FLX/EXT Transcribed By: JIL 01/08/21 [facility] Other XR lumbar spine AP/LAT/FLX/EXT Dictated By: Jude Stock Jr, MD 01/08/21 [facility] Other XR lumbar spine AP/LAT/FLX/EXT Signed By: [facility] Other XR lumbar spine AP/LAT/FLX/EXT 01/08/21 [facility] Other MADONNAOVdary 06-09-2018 CNOV Office Visit (NSFRVW ) NEAL IRENE ([id number]) 1980 M Date Time Provider Department 06/09/18 [...] fx. Had surgery by Dr. Robbie Wakefield, [facility] in [place]. 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 Author Type: [...] fx. Had surgery by Dr. Robbie Wakefield, [facility] in [place]. 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 Hx of back problems and surgeries. Took two Barnum, flexeril, celebrex prior to coming. Needs another surgery for back. History of Present Illness 37-year-old white male presents emergency room with his and complaints of worsening lower back pain after bending over to light his heater in his shop. Patient has had prior back surgery by Dr. Sen in [place] March 14, 2015. Patient states he has [...] Anxious mood & affect. Integumentary: Warm, Dry, [place] Medical Decision Making X-rays did not demonstrate [...] WASSIL In 3 days 04/04/2018 [address] [place] [address]- Business (1) Additional Instructions: Call tomorrow for [...] made to ensure accuracy, however, inadvertently computerized professor of graphic design mistakes may be present. Patient was treated and evaluated by the physician cosmetic sales assistant. The attending physician was in the emergency [...] acute fracture. Signed By: Andreas Cordova MD [facility] Comment on above: Result Comment: Elec tronically Signed By: Abdelrahman Olvera PA-C\.br\Date and Time Signed: 04/01/18 12:55 EST\.br\Electronically Co-Signed By: Lashay Li DO\.br\Date and Time Co-Signed: 04/07/18 16:20 EST Coding Summary.on 04-02-2018 Coding Summary. CODING DATE: 04/02/2018 FINAL [facility] STATUS: Home (Routine DC) PAYOR: Commercial Insurance APC DESCRIPTION 5522 Level 2 Imaging without Contrast ADMIT DX: REASON FOR VISIT DX: M54.5 Low back pain FINAL DX: PRINCIPAL: M54.5 Low back pain SECONDARY: M53.3 Sacrococcygeal disorders, not elsewhere classified Z79.899 Other emt intermediate (current) drug therapy PYMT PROC APC STAT DESCRIPTION DOCTOR NAME DATE NOTE: The code number assigned matches the documented diagnosis and / or procedure in the patient's chart. However, the narrative phrase printed from the coding software may appear abbreviated, or result in slightly different terminology. Coded By: Laila Mcghee Date Saved: 04/02/2018 11:01 am Normal [facility] ED Clinical Summaryon 2017 ED Clinical Summary [place] [address] ED Clinical Summary Person Information Name: NEAL IRENE/[place] Age: 37 Years : 1980 12:00 AM Sex: Male Language: Hebrew PCP: RENE MORRELL DO Marital Status: Visit [...] 04/01/2018 1:01 PM 04/01/2018 1:01 PM ADDRESS: [address] [place] [phone] PHYS DOC NOTES: MEDICAL INFORMATION: Prescriptions Given: [...] Follow up: With: Address: When: RENE MORRELL [address] [place] [address] [facility] () In 3 days 04/04/2018 Comments: Call [...] the lower extremities DIAGNOSIS: Lumbosacral pain Normal [facility] ED Patient Education Noteon 04-01-2018 ED [...] stressful on the back to sit or vice president for instruction one place. Do not sit, drive, or vice president for instruction one place for more than 30 minutes [...] pillow under your knees. ? Only take jvvh-mdr-wutgmoe or prescription medicines as directed by your caregiver. Qcqt-eiz-aktwvmc medicines to reduce pain and inflammation are [...] Document Reviewed: 07/26/2014 ExitCare? Patient Information ?2015 [employer]. This information is not intended to replace [...] the first months of treatment. Only take isxb-wqe-plghkgs or prescription medicines for pain, discomfort, or [...] Document Reviewed: 07/17/2009 ExitCare? Patient Information ?2015 [employer]. This information is not intended to replace advice given to you by your health care provider. Make sure you discuss any questions you have with your health care provider. Normal [facility] ED Patient Summaryon 12-26-2 018 ED Patient Summary [address] [id number] Patient Discharge Instructions Person Information Name: NEAL IRENE Age: 37 Years Arrival Date: 04/01/2018 11:05 AM Discharge Diagnosis: Lumbosacral pain Primary Care Physician: RENE MORRELL DO Provider Information Primary Provider: Lashay Li DO Advanced Trimmer Meat:Abdelrahman Olvera PA-C The exam and treatment you received in the Emergency Department were for an urgent problem and are not intended as complete care. It is important that you follow up with a doctor, nurse practitioner, or physician?s cosmetic sales assistant for ongoing care. If your symptoms become worse or you do not improve as expected and you are unable to reach your usual health care provider, you should return to the Emergency Department. We are available 24 hours a day. NEAL IRENE has been given the following list of patient education materials, prescriptions and follow-up instructions: Follow-up Instructions: With: Address: When: RENE MORRELL [address] [place] [address] [facility] () In 3 days 04/04/2018 Comments: Call [...] opioids can be used to help relieve uphvtzxv-qt-etwgfa pain and are often prescribed following a [...] be struggling with addiction, tell your health director critical care and ask for guidance or call BRIANTammy?[employer] National Helpline at 0-318-650-JBEY. v Source: [place] Department of Health and Human Services/Center for Disease Control & Prevention [facility] Medications Given: Medication Dose Route [...] Comment: Pharmacy Information: Thank you for choosing [facility] Patient Education Materials: Radicular Pain [...] the first months of treatment. Only take eyzr-xih-zzvethh or prescription medicines for pain, discomfort, or [...] Document Reviewed: 07/17/2009 ExitCare? Patient Information ?2014 [employer] [facility]. This information is not intended to replace [...] stressful on the back to sit or vice president for instruction one place. Do not sit, drive, or vice president for instruction one place for more than 30 minutes [...] pillow under your knees. ? Only take igsi-zbp-tncqmfy or prescription medicines as directed by your caregiver. Hxbx-lcb-mtltufo medicines to reduce pain and inflammation are [...] Document Reviewed: 07/26/2014 ExitCare? Patient Information ?2015 [employer]. This information is not intended to replace advice given to you by your health care provider. Make sure you discuss any questions you have with your health care provider. I, NEAL IRENE , have received the following patient education materials/instruction s and have verbalized understanding: Patient Education Materials: Radicular Pain; Back Pain, Adult Follow-up Instructions: With: Address: When: RENE [place]ONISIL [address] [place] [address] Business (1) In 3 days 04/04/2018 Comments: [...] Signature Date Clinician/Nurse Signature Date 04/01/18 13:01:03 [facility] Progress Note-Nurseon 2017 Protein mass conc Patient: [...] No further needs at this time. Normal [facility] XR Spine Lumbosacral Minimum 4 Viewson [...] MD Transcribed by: DARSHAN Technologist: DEAN Normal [facility] Vital Signs Date Time Vital Sign Value Performing Clinician Facility 01-17-2023 09:00-0400 Body height 177.8 cm Maribeth Vuong Other [facility] Other 01-17-2023 09:00-0400 Body mass index (BMI) [Ratio] 39.17 kg/m2 Maribeth Vuong Other [facility] Other 01-17-2023 09:00-0400 Body temperature 97.7 [degF] Maribeth Vuong Other [facility] Other 01-17-2023 09:00-0400 Body weight 123.83 kg Maribeth Vuong Other [facility] Other 01-17-2023 09:00-0400 Diastolic blood pressure 78 mm[Hg] Maribeth Vuong Other [facility] Other 01-17-2023 09:00-0400 SaO2% (BldA) [Mass fraction] 98 % Maribeth Vuong Other [facility] Other 01-17-2023 09:00-0400 Systolic blood pressure 112 mm[Hg] Maribeth Vuong Other [facility] Other 12-18-2022 09:45-0400 Body height 177.8 cm Maribeth Vuong Other [facility] Other 12-18-2022 09:45-0400 Body mass index (BMI) [Ratio] 37.73 kg/m2 Maribeth Vuong Other [facility] Other 12-18-2022 09:45-0400 Body weight 119.3 kg Maribeth Vuong Other [facility] Other 12-18-2022 09:45-0400 Diastolic blood pressure 86 mm[Hg] Maribeth Vuong Other [facility] Other 12-18-2022 09:45-0400 Respiratory rate 18 /min Maribeth Vuong Other [facility] Other 12-18-2022 09:45-0400 SaO2% (BldA) [Mass fraction] 95 % Maribeth Vuong Other [facility] Other 12-18-2022 09:45-0400 Systolic blood pressure 126 mm[Hg] Maribeth Vuong Other [facility] Other 12-12-2022 08:00-0400 Body height 177.8 cm Maribeth Carolann Other [facility] Other 12-12-2022 08:00-0400 Body mass index (BMI) [Ratio] 37.73 kg/m2 Maribeth Carolann Other [facility] Other 12-12-2022 08:00-0400 Body temperature 98.5 [degF] Maribeth Vuong Other [facility] Other 12-12-2022 08:00-0400 Body weight 119.3 kg Maribeth Carolann Other [facility] Other 12-12-2022 08:00-0400 Diastolic blood pressure 102 mm[Hg] Maribeth Vuong Other [facility] Other 12-12-2022 08:00-0400 SaO2% (BldA) [Mass fraction] 96 % Maribeth Carolann Other [facility] Other 12-12-2022 08:00-0400 Systolic blood pressure 150 mm[Hg] Maribeth Vuong Other [facility] Other 09-26-2022 10:22-0400 Diastolic blood pressure 108 mm[Hg] DO Maribeth Vuong Work Phone: [facility] 09-26-2022 10:22-0400 Heart rate 74 /min DO Maribeth Vuong Work Phone: [facility] 09-26-2022 10:22-0400 Respiratory rate 16 /min DO Maribeth Vuong Work Phone: [facility] 09-26-2022 10:22-0400 SaO2% (BldA) [Mass fraction] 98 % DO Maribeth Vuong Work Phone: [facility] 09-26-2022 10:22-0400 Systolic blood pressure 156 mm[Hg] DO Maribeth Vuong Work Phone: [facility] 09-26-2022 08:26-0400 Body height 175.26 cm DO Maribeth Vuong Work Phone: [facility] 09-26-2022 08:26-0400 Body temperature 98.5 [degF] DO Maribeth Vuong Work Phone: [facility] 09-26-2022 08:26-0400 Body weight 113.39 kg DO Maribeth Vuong Work Phone: [facility] 09-11-2022 09:45-0400 Body height 177.8 cm Maribeth Carolann Other [facility] [facility] [employer] Other 09-11-2022 09:45-0400 Body mass index (BMI) [Ratio] 35.37 kg/m2 Maribeth Vuong Other [facility] Other 09-11-2022 09:45-0400 Body weight 111.81 kg Maribeth Vuong Other [facility] Other 09-11-2022 09:45-0400 Diastolic blood pressure 88 mm[Hg] Maribeth Vuong Other [facility] Other 09-11-2022 09:45-0400 Respiratory rate 18 /min Maribeth Vuong Other [facility] Other 09-11-2022 09:45-0400 SaO2% (BldA) [Mass fraction] 98 % Maribeth Vuong Other [facility] Other 09-11-2022 09:45-0400 Systolic blood pressure 142 mm[Hg] Maribeth Vuong Other [facility] Other 07-24-2022 10:30-0400 Body height 177.8 cm Igor Scovanner Other [facility] Other 07-24-2022 10:30-0400 Body mass index (BMI) [Ratio] 35.58 kg/m2 Igor Scovanner Other [facility] Other 07-24-2022 10:30-0400 Body weight 112.49 kg Igor Scovanner Other [facility] Other 07-24-2022 10:30-0400 Diastolic blood pressure 132 mm[Hg] Igor Scovanner Other [facility] Other 07-24-2022 10:30-0400 Systolic blood pressure 187 mm[Hg] Igor Scovanner Other [facility] Other 07-15-2022 12:15-0400 Body height 177.8 cm Maribeth Vuong Other [facility] Other 07-15-2022 12:15-0400 Body mass index (BMI) [Ratio] 35.58 kg/m2 Maribeth Vuong Other [facility] Other 07-15-2022 12:15-0400 Body temperature 98.1 [degF] Maribeth Vuong Other [facility] Other 04-10-2023 12:15-0400 Body weight 112.49 kg Maribeth Woodymer Other [facility] Other 07-15-2022 12:15-0400 Diastolic blood pressure 110 mm[Hg] Maribeth Woodymer Other [facility] Other 07-15-2022 12:15-0400 SaO2% (BldA) [Mass fraction] 97 % Maribeth Woodymer Other [facility] Other 07-15-2022 12:15-0400 Systolic blood pressure 156 mm[Hg] Maribeth Carolann Other [facility] Other 01-04-2022 12:15-0400 Body height 177.8 cm Maribeth Carolann Other [facility] Other 01-04-2022 12:15-0400 Body mass index (BMI) [Ratio] 34.39 kg/m2 Maribeth Woodymer Other [facility] Other 01-04-2022 12:15-0400 Body weight 108.73 kg Maribeth Carolann Other [facility] Other 01-04-2022 12:15-0400 Diastolic blood pressure 86 mm[Hg] Maribeth Carolann Other [facility] Other 01-04-2022 12:15-0400 Respiratory rate 18 /min Maribeth Carolann Other [facility] Other 01-04-2022 12:15-0400 SaO2% (BldA) [Mass fraction] 98 % Maribeth Vuong Other [facility] Other 01-04-2022 12:15-0400 Systolic blood pressure 136 mm[Hg] Maribeth Carolann Other [facility] Other 06-22-2021 10:00-0400 Body height 177.8 cm Maribeth Carolann Other [facility] Other 06-22-2021 10:00-0400 Body mass index (BMI) [Ratio] 34.16 kg/m2 Maribeth Carolann Other [facility] Other 06-22-2021 10:00-0400 Body weight 108 kg Maribeth Carolann Other [facility] Other 06-22-2021 10:00-0400 Diastolic blood pressure 78 mm[Hg] Maribeth Vuong Other [facility] Other 06-22-2021 10:00-0400 Respiratory rate 18 /min Maribeth Carolann Other [facility] Other 06-22-2021 10:00-0400 SaO2% (BldA) [Mass fraction] 95 % Maribeth Carolann Other [facility] Other 06-22-2021 10:00-0400 Systolic blood pressure 118 mm[Hg] Maribeth Vuong Other [facility] Other 03-08-2021 12:15-0500 Body height 177.8 cm Charles Solarse Other [facility] Other 03-08-2021 12:15-0500 Body mass index (BMI) [Ratio] 33.72 kg/m2 Charles Solares Other [facility] Other 03-08-2021 12:15-0500 Body weight 106.6 kg Charles Solares Other [facility] Other 02-12-2021 11:00-0500 Body height 177.8 cm Maribeth Vuong Other [facility] Other 02-12-2021 11:00-0500 Body mass index (BMI) [Ratio] 33.37 kg/m2 Maribeth Vuong Other [facility] Other 02-12-2021 11:00-0500 Body temperature 98.3 [degF] Maribeth Vuong Other [facility] Other 02-12-2021 11:00-0500 Body weight 105.51 kg Maribeth Vuong Other [facility] Other 02-12-2021 11:00-0500 Diastolic blood pressure 88 mm[Hg] Maribeth Vuong Other [facility] Other 02-12-2021 11:00-0500 Respiratory rate 18 /min Maribeth Vuong Other [facility] Other 02-12-2021 11:00-0500 SaO2% (BldA) [Mass fraction] 99 % Maribeth Vuong Other [facility] Other 02-12-2021 11:00-0500 Systolic blood pressure 134 mm[Hg] Maribeth Vuong Other [facility] Other 02-01-2021 11:45-0400 Body height 177.8 cm Maribeth Vuong Other [facility] Other 02-01-2021 11:45-0400 Body mass index (BMI) [Ratio] 35.48 kg/m2 Maribeth Woodymer Other [facility] Other 02-01-2021 11:45-0400 Body temperature 98.2 [degF] Maribeth Woodymer Other [facility] Other 02-01-2021 11:45-0400 Body weight 112.18 kg Maribeth Woodymer Other [facility] Other 02-01-2021 11:45-0400 Diastolic blood pressure 86 mm[Hg] Maribeth Carolann Other [facility] Other 02-01-2021 11:45-0400 Respiratory rate 18 /min Maribeth Carolann Other [facility] Other 02-01-2021 11:45-0400 SaO2% (BldA) [Mass fraction] 97 % Maribeth Woodymer Other [facility] Other 02-01-2021 11:45-0400 Systolic blood pressure 136 mm[Hg] Maribeth Carolann Other [facility] Other Encounters Encounter Date Encounter Type Care Provider Facility Start: 03-13-2023 End: 03-13-2023 ambulatory Maribeth Woodymer Other [facility] Other Start: 03-13-2023 Telephone encounter [facility] Start: 02-05-2023 End: 02-05-2023 ambulatory Maribeth Vuong Other [facility] Other Start: 02-05-2023 Telephone encounter Maribeth [facility] Start: 01-17-2023 End: 01-17-2023 ambulatory Maribeth Vuong Other [facility] Other Start: 01-17-2023 Encounter for genera l adult medical examination without abnormal findings Maribeth Vuong [facility] Start: 01-17-2023 Periodic preventive med est patient 40-64yrs Maribeth Vuong [facility] Start: 12-18-2022 (Procedure) Short Maribeth Vuong [facility] Start: 12-18-2022 End: 12-18-2022 ambulatory Maribeth Vuong Other [facility] Other Start: 12-12-2022 End: 12-12-2022 ambulatory Maribeth Vuong Other [facility] Other Start: 12-12-2022 Office outpatient visit 15 minutes Maribeth Carolann [facility] Page Start: 12-05-2022 End: 12-05-2022 ambulatory Maribeth Vuong Other [facility] Other Start: 12-05-2022 Telephone encounter Maribeth Carolann [facility] Start: 09-28-2022 End: 09-28-2022 ambulatory Nash Cardenas Other [facility] Other Start: 09-28-2022 Telephone encounter Nash Carden[facility] Start: 09-26-2022 End: 09-26-2022 ambulatory Nash Cardenas Facility:[facility] Start: 09-26-2022 End: 09-26-2022 Admission to same day surgery center DO Maribeth Vuong Work Phone: [facility] Work Phone: Start: 09-26-2022 End: 09-26-2022 ambulatory DO aMribeth Vuong Work Phone: [facility] Work Phone: Start: 09-11-2022 (Procedure) Short Maribeth Vuong [facility] Start: 09-11-2022 End: 09-11-2022 ambulatory Maribeth Vuong Other [facility] Other Start: 09-10-2022 End: 09-10-2022 ambulatory Maribeth Vuong Other [facility] Other Start: 09-10-2022 Telephone encounter Maribeth Mercer [facility] Start: 09-03-2022 End: 09-03-2022 ambulatory NARENDRANATH LAKSHMIPATHY . Facility:[facility] Start: 08-20-2022 End: 08-20-2022 ambulatory Maribeth Vuong Facility:[facility] Start: 08-20-2022 End: 08-20-2022 ambulatory DO Maribeth Vuong Work Phone: [facility] Work Phone: Start: 08-20-2022 End: 08-20-2022 Patient encounter procedure DO Maribeth Vuong Work Phone: [facility] [address] Start: 08-16-2022 End: 08-17-2022 ambulatory NARENDRANATH LAKSHMIPATHY . Facility:[facility] Start: 08-02-2022 End: 08-02-2022 ambulatory Maribeth Vuong Other [facility] [employer] [employer] Other Start: 08-02-2022 Telephone encounter Maribeth Mercer [facility] Start: 07-30-2022 End: 07-30-2022 ambulatory NARENDRANATH LAKSHMIPATHY . Facility:[facility] Start: 07-24-2022 End: 07-24-2022 ambulatory Igor Orr Other [facility] Other Start: 07-24-2022 Office outpatient ne w 30 minutes Igor Orr [facility] Start: 07-23-2022 End: 07-24-2022 ambulatory NARENDRANATH LAKSHMIPATHY . Facility:[facility] Start: 07-16-2022 End: 07-16-2022 ambulatory Mraibeth Vuong Other [facility] [employer] Other Start: 07-16-2022 Telephone encounter Maribeth [facility] Start: 07-15-2022 Office outpatient visit 25 minutes Maribethwaldo Vuong [facility] Start: 07-15-2022 Telephone encounter Maribeth [facility] Start: 07-15-2022 End: 07-15-2022 ambulatory DO Maribeth Vuong Work Phone: [facility] [employer] Other Start: 07-15-2022 End: 07-15-2022 Patient encounter procedure DO Maribeth Vuong Work Phone: [facility] Start: 07-12-2022 End: 07-12-2022 ambulatory Maribeth Teri Carolann Facility:[facility] Start: 07-12-2022 Encounter for genera l adult medical examination without abnormal findings Maribeth Teri Vuong [facility] Start: 07-12-2022 End: 07-12-2022 ambulatory DO Maribeth Vuong Work Phone: [facility] Work Phone: Start: 07-12-2022 End: 07-12-2022 Patient encounter procedure DO Maribeth Vuong Work Phone: [facility] [place] Work Phone: Start: 07-02-2022 End: 07-03-2022 ambulatory [...] 01-04-2022 End: 01-04-2022 ambulatory Maribeth Carolann Other [facility] Other Start: 01-04-2022 Encounter for genera l adult medical examination without abnormal findings Maribeth Vuong [facility] Start: 01-04-2022 Periodic preventive med est patient 40-64yrs Maribeth Vuong [facility] Start: 12-13-2021 End: 12-14-[address] JESSICA JOEL . Facility:[facility] Start: 10-31-2021 End: 11-01-[address] JESSICA JOEL . Facility:[facility] Start: 10-03-2021 End: 10-04-2021 ambulatory BRIT SCHUSTER . Facility:[facility] Start: 09-29-2021 End: 09-29-2021 ambulatory MARIBETH VUONG Facility:[facility] Start: 08-17-2021 End: 08-17-2021 ambulatory Charles Solares Other [facility] Other Start: 08-17-2021 Telephone encounter [facility] [place] Start: 08-07-2021 End: 08-07-2021 ambulatory Charles Solares Other [facility] Other Start: 08-07-2021 Telephone encounter [facility] Start: 07-13-2021 End: 07-13-2021 ambulatory Maribeth Vuong Other [facility] Other Start: 07-13-2021 Telephone encounter Maribeth [facility] Start: 07-09-2021 End: 07-09-2021 ambulatory Charles Hernandezer Other [facility] Other Start: 07-09-2021 Office outpatient visit 25 minutes Charles Hernandezer [facility] [place] Start: 06-22-2021 End: 06-22-2021 ambulatory Marbieth Vuong Other [facility] Other Start: 06-22-2021 Office outpatient visit 15 minutes Maribeth Vuong [facility] Start: 06-06-2021 End: 06-06-2021 ambulatory Charles Hernandezer Other [facility] Other Start: 06-06-2021 Office outpatient visit 25 minutes Charles Davider [facility] [place] Start: 05-29-2021 End: 05-29-2021 ambulatory Maribeth Vuong Other [facility] Other Start: 05-29-2021 Telephone encounter Maribeth [facility] Start: 05-22-2021 End: 05-22-2021 ambulatory Maribeth Vuong Other [facility] Other Start: 05-22-2021 Telephone encounter Maribeth [facility] Start: 05-21-2021 End: 05-21-2021 ambulatory Maribeth Vuong Other [facility] Other Start: 05-21-2021 Telephone encounter Maribeth [facility] Start: 05-08-2021 End: 05-08-2021 ambulatory Charles Hernandezer Other [facility] Other Start: 05-08-2021 Office outpatient visit 25 minutes Charles Felter [facility] [place] Start: 04-12-2021 End: 04-12-2021 ambulatory Charles Felter Other [facility] Other Start: 04-12-2021 Office outpatient visit 25 minutes Charles Hernandezer [facility] [place] Start: 03-08-2021 End: 03-08-2021 ambulatory Charles Solares Other [facility] Other Start: 03-08-2021 Office outpatient visit 25 minutes Charles Hernandezer [facility] [place] Start: 02-28-2021 End: 02-28-2021 ambulatory Maribeth Carolann Other [facility] Other Start: 02-28-2021 Telephone encounter [facility]eth [facility] [place] Start: 02-12-2021 End: 02-12-2021 ambulatory Maribeth Vuong Other [facility] Other Start: 02-12-2021 Office outpatient visit 15 minutes Maribeth Vuong [facility] Page Start: 02-05-2021 Office outpatient visit 25 minutes Charles Hernandezer [facility] [place] Start: 02-01-2021 Office outpatient visit 15 minutes Maribeth Vuong [facility] Start: 01-08-2021 Office outpatient visit 25 minutes Charles Felter [facility] [place] Start: 06-09-2018 End: 06-10-2018 Patient encounter procedure PHI RENE [facility] Start: 04-01-2018 End: 04-01-2018 Emergency department patient visit Lashay Li Facility:[facility] Procedures Date Procedure Procedure Detail Performing Clinician Start: 09-26-2022 Colonoscopy DO Maribeth Vuong Work Phone: Start: 07-15-2022 Diagnostic radiograp hy of abdomen DO Maribeth Vuong Work Phone: Plan of Treatment Date Care Activity Detail Author Start: 09-26-2022 [facility] Patient Education Hemorrhoids (DC) [facility] Work Phone: Immunizations Immunization Date Immunization Notes Care Provider Macrina brunson 12-07-2020 COVID-19 Vaccine Corey - Documentation Purposes Only Charles Solares Other [facility] Other 03-25-2019 Depo-Medrol 80 mg Charles lewis Other [facility] Other 12-11-2017 Kenalog -40 mg Charles Solares Other [facility] Other Payers Date Payer Category Payer Self-pay [id number] 1980 Unknown [id number] 2.16.84 0.1.169334.3.579.2.727 1979 Unknown [id number] 2.16.84 0.1.680001.3.579.2.593 1979 Unknown [id number] 2.16.84 0.1.190887.3.579.2.593 1979 Unknown [id number] 2.16.84 0.1.385824.3.579.2.593 1979 Unknown [id number] 2.16.84 0.1.696838.3.579.2.593 1979 Unknown [id number] 2.16.84 0.1.013535.3.579.2.593 1979 Unknown [id number] 2.16.84 0.1.791177.3.579.2.593 1979 Unknown [id number] 2.16.84 0.1.786555.3.579.2.593 1979 Unknown [id number] 2.16.84 0.1.284117.3.579.2.593 1979 Unknown [id number] 2.16.84 0.1.878718.3.579.2.593 1979 Unknown [id number] 2.16.84 0.1.038571.3.579.2.593 1979 Unknown [id number] 2.16.84 0.1.816962.3.579.2.593 1979 Unknown [id number] 2.16.84 0.1.754644.3.579.2.593 1979 Unknown [id number] 2.16.84 0.1.692017.3.579.2.593 1979 Unknown [id number] 2.16.84 0.1.747938.3.579.2.593 1979 Unknown [id number] 2.16.84 0.1.270930.3.579.2.593 1979 Unknown [id number] 2.16.84 0.1.102540.3.579.2.593 1960 Medicaid [id number] 1960 Unknown [id number] 1959 Unknown [id number] Blue Cross Blue Shield [id number] Unknown [facility] [id number] Unknown [id number] 2.16.8 40.1.296607.3.579.2.531 Unknown [id number] .16.8 40.1.194772.3.579.2.531 Unknown [id number] 2.16.8 40.1.774307.3.579.2.531 Unknown [id number] .16.8 40.1.648331.3.579.2.531 Social History Date Type Detail Facility Unknown if ever smoked [facility] Other Sex Assigned At Sex Assigned At Bir th [facility] Other Start: 04-13-2019 Tobacco smoking status NHIS Smoker (finding) [facility] Start: 1980 Sex Assigned At Male [facility] Start: 09-26-2022 Tobacco smoking status NHIS Current some day smoker [facility] Goals Date Patient Goal Desired Activity /State Clinical Notes 01-08-2021 to 03-13-2023 Note Date & Type Note Facility 03-13-2023 Evaluation note Encounter Date Diagnosis Assessment Notes Mar, Primary osteoarthritis of both first carpometacarpal joints (ICD-10 - M18.0) [facility] Other 11-01-2023 Evaluation note* Encounter Date Diagnosis Assessment Notes Treatment Notes Treatment Clinical Notes Feb, Primary hypertension (ICD-10 - I10) [facility] Other 10-13-2023 Evaluation note* Encounter Date Diagnosis [...] Jan, Medication monitoring encounter (ICD-10 - Z51.81) [facility] Other 09-13-2023 Evaluation note* Encounter Date Diagnosis Assessment Notes Treatment Notes Treatment Clinical Notes Dec, Primary osteoarthrit is of first carpometacarpal joint of left hand (ICD-10 - M18.12) [facility] Other 09-07-2023 Evaluation note* Encounter Date Diagnosis [...] he has any issues with the medicine. [facility] Other 06-22-2023 Procedure [facility]06-07-2023 Evaluation note* Encounter Date Diagnosis Assessment Notes Treatment Notes Treatment Clinical Notes Sep, Primary osteoarthrit is of both first carpometacarpal joints (ICD-10 - M18.0) [facility] Other 04-19-2023 Evaluation note* Encounter Date Diagnosis [...] colonoscopy to rule out luminal etiologies made [facility] Other 04-18-2023 NoteCONSULTATION CONSULTATION DATE: 07/23/2022 TO: [...] our patients to inform us about any hpor-xhr-xpmueox medications or herbal remedies/nutritional supplements/alternative remedies. 2. [...] treatment options with their primary care provider.[id number] Evaluation note * Encounter Date Diagnosis Assessment Notes Treatment Notes Treatment Clinical Notes Jul, Generalized abdominal pain (ICD-10 - R10.84) [facility] Other 04-10-2023 Evaluation note* Encounter Date Diagnosis [...] Jul, Medication monitoring encounter (ICD-10 - Z51.81) [facility] Other 04-10-2023 Evaluation note* Encounter Date Diagnosis Assessment Notes Treatment Notes Treatment Clinical Notes Jul, Slow transit constipation (ICD-10 - K59.01) [facility] Other 03-28-2023 NoteCONSULTATION CONSULTATION DATE: 07/02/2022 TO: [...] as well as his lumbar spine films.[facility] [id number] Note CONSULTATION CONSULTATION DATE: 06/13/2022 HISTORY OF [...] relief. He has been seen both at [place] and [facility] in the past, and received [...] under the care of Dr. Joshua in [place]. He is unwilling to try Lyrica due [...] Patient is in agreement to this plan.[facility] [id number] NoteCONSULTATION CONSULTATION DATE: 03/14/2022 HISTORY OF PRESENT [...] in three months' time, unless otherwise indicated.[facility] [id number] NoteCONSULTATION CONSULTATION DATE: 02/07/2022 HISTORY OF PRESENT [...] followed up in the office post procedure.[facility] [id number] Evaluation note* Encounter Date Diagnosis Assessment Notes [...] Dec, Prostate cancer screening (ICD-10 - Z12.5) [employer] Other 09-08-2022 NoteCONSULTATION CONSULTATION DATE: 12/13/2021 HISTORY [...] of care and all questions were answered.[facility] [id number] Note CONSULTATION PROCEDURE DATE: 10/31/2021 PREOPERATIVE DIAGNOSIS: [...] will be followed up in the office.[facility] [id number] Note CONSULTATION CONSULTATION DATE: 10/03/2021 This is [...] and will be seen in the clinic. [facility] Signed and Approved by: BRIT SCHUSTER . 10/11/2021 16:28:00[facility]04-04-2022 Evaluation note* Encounter Date Diagnosis Assessment Notes [...] in this. Patient notes prior issues with [facility] billing department and states he is uncomfortable [...] note writ ten by Km Cervantes MA, [employer]. Edited and approved by Dr. Charles Solares MD. [employer] Other 03-18-2022 Evaluation note* Encounter Date Diagnosis [...] and he is to continue with it. [employer] Other 03-02-2022 Evaluation note* Encounter Date Diagnosis [...] note writ ten by Km Cervantes CMA, [employer]. Edited and approved by Dr. Charles Solares MD. [employer] Other 02-15-2022 Evaluation note* Encounter Date Diagnosis Assessment Notes Treatment Notes Treatment Clinical Notes May, Cigarette nicotine dependence without complication (ICD-10 - F17.210) [employer] Other 02-14-2022 Evaluation note* Encounter Date Diagnosis Assessment Notes Treatment Notes Treatment Clinical Notes May, Other spondylosis with radiculopathy, lumbar region (ICD-10 - M47.26) [employer] Other 02-01-2022 Evaluation note* Encounter Date Diagnosis [...] was refilled today. Saliva sample performed through [facility] today, will await confirmatory results. Opiod contract updated at this time. May, Other chronic pain (ICD-10 - G89.29) May, Other Above note writ ten by Sonya Dawson LPN, [employer]. Edited and approved by Dr. Charles Solares MD. [employer] Other 01-06-2022 Evaluation note* Encounter Date Diagnosis [...] note writ ten by Km Cervantes CMA, [employer]. Edited and approved by Dr. Charles Solares MD. [employer] Other 12-02-2021 Evaluation note* Encounter Date Diagnosis [...] Above note written by Sonya Dawson LPN, [employer]. Edited and approved by Dr. Charles Solares MD. [employer] Other 11-08-2021 Evaluation note* Encounter Date Diagnosis [...] Patient voiced understanding agrees with this plan. [employer] Other 11-01-2021 Evaluation note* Encounter Date Diagnosis [...] note writ ten by Donita Henson CMA, [employer]. Edited and approved by Dr. Charles Solares MD. [employer] Other 10-28-2021 Evaluation note* Encounter Date Diagnosis [...] message to Dr. Solares passing this along. [employer] Other 10-04-2021 Evaluation note* Encounter Date Diagnosis [...] educated regarding the risks and benefits of emt intermediate opioid use. He understands the associated risks with this medication and agrees that it provides reasonable benefit in regards to his pain control and level of function. Oxycodone Acetaminophen was refilled today. Jan, Other chronic pain (ICD-10 - G89.29) [employer] Other Evaluation noteNo InformationNort [employer] Other Evaluation noteNo assessment information available [facility] Work Phone: History and physical note Author Nash Cardenas [facility] September 26, 2022 9:39am Note Date/Time September 26, 2022 9:39 am [facility] [address] [place] [address] Gastroenterology H&P Signed Patient: Neal Irene MR#: [id number] : 1980 Acct:[id number] Age/Sex: 41 / M Adm Date: 3 Loc: Room: Type: [facility] Attending Dr: Nash Cardenas MD Copies to: [...] signed by Nash Cardenas MD> 09/26/22 0939 [facility] Work Phone: History general Narrative - Reported* Type Description Date Medical History Hx spinal fusion Medical History Lumbar radiculopathy Medical History Trigger point Surgical History L5 S1 fusion 2014 Surgical History Left lower leg surgery (multipl e fractures) Surgical History foreign body excision right mid dle finger Hospitalization History pneumonia as child [employer] Other History general Narrative - Reported* Type Description Date Medical History Hx spinal fusion Medical History Lumbar radiculopathy Medical History Trigger point Surgical History L5 S1 fusion 2014 Surgical History Left lower leg surgery (multipl e fractures) Surgical History foreign body excision right mid dle finger Surgical History lumbar facet nerve b lock injection - Dr. Saldivar in [facility] 11/2022 Hospitalization History pneumonia as [place] Other History general Narrative - Reported* Type Description Date Medical History Hx spinal fusion Medical History Lumbar radiculopathy Medical History Trigger point Surgical History L5 S1 fusion 2014 Surgical History Left lower leg surgery (multipl e fractures) Surgical History foreign body excision right mid dle finger Surgical History lumbar facet nerve b lock injection - Dr. Saldivar in [facility] 11/2022 Surgical History R side nerve ablation 01/2023 Hospitalization History pneumonia as child [employer] Other Hospital Discharge instructions Additional Instructions DISCHARGE [...] years. -Follow up with PCP. -Office number [phone].[facility] Work Phone: reason for visit NarrativePatient here at the request of Dr. Vuong for evaluation & treatment of abdominal pain, change in bowel habits, weight loss, rectal bleeding.[employer] Other Reason for visit NarrativeProcedure appt and DNR-A [employer] Other Summary Purpose Family History Relationship Condition Age at Onset Recorded Date/T lorri brother Gout Unknown Relationship Condition Age at Onset Recorded Date/T lorri brother Gout Unknown Diabetes mellitus Unknown Advance Directives Advance Directive Response Recorded Date/ Time Advance Directives No December 4:24pm Reason for Referral Reason Dr. Villanueva to [facility] er surgical options, steroid injections not providing long lasting benefit Diagnosis 1 Primary osteoarthrit is of both first carpometacarpal joints (M18.0) Referral Organization [facility] Family Advanced Catheter Therapiesin [employer] Tom Referring Provider First Name Maribeth Referring Provider Last Name Carolann Referring Provider Specialty Family Prac patito Referred Organization [facility] Orth[facility] pedics Referred Address [address] [place],[address] Referred Provider Specialty ORTHOPEDIC S URGEON Referral Priority Routine Reason * Waiting for appt CT and KUB normal, generalized pain of unclear etiology Diagnosis 1 Generalized abdomina l pain (R10.84) Referral Organization [facility] Family Nisha Santos Referring Provider First Name Maribeth Referring Provider Last Name Carolann Referring Provider Specialty Family Prac patito Referred Organization [facility] Gastroenterolo gy Referred Provider Dwayne Salas Referred Address [address] [facility] [address] ,[place], [place],[address] Referred Provider Specialty Gastroentero logy Referral Priority [...] continuous use of opioids (F11.90) Referral Organization [facility] Family Medicin e Tom Referring Provider First Name Maribeth Referring Provider Last Name Carolann Referring Provider Specialty Family Prac patito Referred Organization [facility] Referred Address [address] Referred Provider Specialty Pain Medicin e Referral Priority Routine General Notes Rebeca Vivar 11:08:53 AM >referral received and faxed Clinical Notes P- [phone] Chief Complaint and Reason for Visit Chief [...] section and content) DATE CREATED AUTHOR 05/25/2018 [facility] DATE CREATED AUTHOR AUTHOR'S ORGANIZ ATION 06/11/2018 [facility] DATE CREATED AUTHOR AUTHOR'S ORGANIZ ATION 09/15/2022 [facility] DATE CREATED AUTHOR AUTHOR'S ORGANIZ ATION 10/04/[address] [facility] REASON FOR VISIT (unrecogniz ed section and content) 1 MOback pain getting worse, pain management not working4 WK RECHECKDISCUSS DISABILITY OPTIONSLab results1 MO1 MONTH RECHECKCHANTIX1 month Follow upscript requestpaperwork1 MONTH FOLLOW UPCHANTIX refill/discuss back concerns1 MONTHNo InformationNo InformationPROCEDURE NOTES1 year Follow up/ AWVAbdominal Pain/ incontinencenew medication.ReferralPain ManagementB/L thumb steroid inj./ sign DNR-AORDERS PER DR Han bpelevated BP at PM in [place], no sxinjection L thumb1 year Follow upLosartan/HCTZsteroid [...] BE BASED ON THE PRIMARY CLINICAL RECORDS. [facility] [employer] [facility]. provides no warranty or guarantee of the accuracy or completeness of information in this document.
== END 2023-05-07 09:37 | disposition home or self-care (01) ==
LOC: RAD 09:39
PROVIDERS: Visit Provider Nurse Practitioner
DX: M47.814 Spondylosis without myelopathy or radiculopathy, thoracic region (principal); M54.6 Pain in thoracic spine
CPT/HCPCS: 72070

== ENCOUNTER 2023-05-27 08:56 | Day surgery (SDC) | payer OTHER, SELFPAY ==
--- OUTSIDE RECORDS SUMMARY | 2023-05-27 09:03 | XMS_ITS | CCD ---
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.] Active Start: 12-12-2022 [facility] Losartan Potassium-HCTZ 50-12.5 MG 1 [...] Once a day Active polyethylene glycol 3350 467236 mg / potassium chloride 2970 mg / sodium bicarbonate 6740 mg / sodium chloride 5860 mg / sodium sulfate 51004 mg powder for oral solution (6 sources) [...] for 7 days PRN Feb, Active sennosides, fdc 8.6 mg oral tablet (16 sources) Start: [...] 07-12-2022 Episodic Other aftercare (1 source) 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 JKW Performed By: #### C BC, POOJA, LIPASE #### [address] Amylase 43 U/L Normal 29-103 U/L [facility] Other Amylase [Enzymatic activity/ volume] in Serum or PlasmaOrdered By: Maribeth Vuong on 07-15-2022 Amylase [Catalytic activity/Vol] 43 U/L 29-103 [facility] Basophils Auto (Bld) [#/Vol] Ordered By: Maribeth Vuong on 07-15-2022 Basophils (Bld) [#/Vol] 0.0 10*3/uL 0.0-0.2 [facility] Basophils/100 WBC Auto (Bld) Ordered By: Maribeth Vuong on 07-15-2022 Basophils/100 WBC (Bld) 0.5 % . [facility] CBC W MANUAL DIFFon 07-16-19 23 ATYPICAL LYMPH # Normal [facility] Comment on above: Performed By: #### C JEAN ####[facility] [address] [place] [id number]. Sydney David ATYPICAL LYMPH % Normal [facility] Comment on above: Performed By: #### C JEAN ####[facility] [address] [place] [id number]. Sydney David BAND # 0.1 103/ul Normal 0.0-0.3 [facility] Comment on above: Performed By: #### C JEAN ####[facility] [address] [place] [address]Dr. Sydney David BAND % 1 % Normal 0-5 [facility] Comment on above: Performed By: #### C JEAN ####[facility] [address] [place] [address]Dr. Sydney David BASOM # 0.00 103/ul Normal 0.00-0.10 [facility] Comment on above: Performed By: #### C JEAN ####[facility] [address] [place] [address]Dr. Sydney Frankie BASOM % 0.0 % Critically low 0.2-2.0 [facility] Comment on above: Performed By: #### C JEAN ####[facility] [address] [place] [address]Dr. Sydney David BLAST # Normal [facility] Comment on above: Performed By: #### C JEAN ####[facility] [address] [place] [phone]. Keymera David BLAST % Normal [facility] Comment on above: Performed By: #### C JEAN ####[facility] [address] [place] [address]Dr. Sydney David CORRECTED WBC Normal 4.0-11.0 The [facility] Comment on above: Performed By: #### C JEAN ####[facility] [address] [place], [place] [address]DrIbrahima David EOS # 0.24 103/ul Normal 0.00-0.70 [facility] Comment on above: Performed By: #### C JEAN ####[facility] [address] [place] [phone]. Sydney David EOS% 3.0 % Normal 0.9-7.0 [facility] Comment on above: Performed By: #### C JEAN ####[facility] [address] [place] [phone]. Sydney David HCT 46.4 % Normal 42.0-54.0 [facility] Comment on above: Performed By: #### C JEAN ####[facility] [address] [place] [phone]. Sydney David HGB 15.4 g/dl Normal 14.0-18.0 [facility] Comment on above: Performed By: #### C JEAN ####[facility] [address] [place] [phone]. Sydney David LYMPHM # 3.36 103/ul Normal 1.20-3.80 [facility] Comment on above: Performed By: #### C JEAN ####[facility] [address] [place] [phone]. Sydney David LYMPHM% 42.0 % Normal 20.5-60.0 [facility] Comment on above: Performed By: #### C JEAN ####[facility] [address]ds[address] [place] [phone]. Sydney David MCH 30.3 pg Normal 25.9-34.0 [facility] Comment on above: Performed By: #### C JEAN ####[facility] [address] [place] [phone]. Sydney David MCHC 33.2 g/dl Normal 29.9-35.2 [facility] Comment on above: Performed By: #### C JEAN ####[facility] [address] [place] [phone] David MCV 91.3 fL Normal 80.0-94.0 [facility] Comment on above: Performed By: #### C JEAN ####[facility] [address] [place], [place] [address]Us. Sydney David METAMYELOCYTE # Normal [facility] Comment on above: Performed By: #### C JEAN ####[facility] [address] [place], [place] [address]Qn. Sydney David METAMYELOCYTE % Normal [facility] Comment on above: Performed By: #### C JEAN ####[facility] [address] [place] [phone]. Sydney David MONOM# 0.80 103/ul Normal 0.30-0.80 [facility] Comment on above: Performed By: #### C JEAN ####[facility] [address] [place] [phone]. Sydney David MONOM% 10.0 % Normal 1.7-12.0 [facility] Comment on above: Performed By: #### C JEAN ####[facility] [address] [place] [phone]. Sydney David MPV 11.8 fL Normal 9.5-13.5 [facility] Comment on above: Performed By: #### Maya PENA ####[facility] [address] [place] [phone]. Sydney David MYELOCYTE # Normal [facility] Comment on above: Performed By: #### C JEAN ####[facility] [address] [place] [phone]. Sydney David MYELOCYTE % Normal [facility] Comment on above: Performed By: #### C JEAN ####[facility] [address] [place] [phone]. Sydney David NRBC Normal [facility] Comment on above: Performed By: #### C JEAN ####[facility] [address] [place] [phone]. Sydney David PLT 249 103/ul Normal 150-450 [facility] Comment on above: Performed By: #### C JEAN ####[facility] [address] [place], [place] [address]Yi. Sydney David RBC 5.08 106/ul Normal 4.70-6.10 [facility] Comment on above: Performed By: #### Maya PENA ####[facility] [address]hr[address] [place], [place] [address]Vi. Sydney David RDW 13.1 % Normal 11.0-15.0 [facility] Comment on above: Performed By: #### Maya PENA ####[facility] [address] [place], [place] [address]Qi. Sydney David SEG # 3.52 103/ul Normal 1.40-6.50 [facility] Comment on above: Performed By: #### Maya PENA ####[facility] [address] [place], [place] [address]Mb. Sydney David SEG % 44.0 % Normal 43.0-75.0 [facility] Comment on above: Performed By: #### Maya PENA ####[facility] [address] [place], [place] [address]Rv. Sydney David WBC 8.0 103/ul Normal 4.0-11.0 [facility] Comment on above: Performed By: #### Maya PENA ####[facility] [address] [place], [place] [address]R[address]. [address] ABD/PELV W CONon 07-16-19 [...] by: EVANGELIST LEOS Date: 2022-07-15 16:[address] [facility] Complete Blood Count Auto Di ffon 07-15-2022 Basophils (Bld) [#/Vol] 0.0 10*3/uL Normal 0.0-0.2 [facility] Comment on above: Order Comment: Reaso n for Exam Medication monitoring encounter Result Comment: PERF ORMED BY: [place] [address] PATHOLOGIST COAL TRIMMER MACHINE OPERATOR ALEM GARCIA M.D. Performed By: #### C BC, POOJA, LIPASE #### [address] Basophils/100 WBC (Bld) 0.5 % Normal . [facility] Comment on above: Order Comment: Reaso n for Exam Medication monitoring encounter Performed By: #### C BC, POOJA, LIPASE #### [address] Eosinophils (Bld) [#/Vol] 0.6 10*3/uL High 0.0-0.45 [facility] Comment on above: Order Comment: Reaso n for Exam Medication monitoring encounter Performed By: #### C BC, POOJA, LIPASE #### [address] Eosinophils/100 WBC (Bld) 6.1 % Normal . [facility] Comment on above: Order Comment: Reaso n for Exam Medication monitoring encounter Performed By: #### C BC, POOJA, LIPASE #### [address] Erythrocyte distribution width (RBC) [Ratio] 13.6 % Normal 12.0-14.8 [facility] Comment on above: Order Comment: Reaso n for Exam Medication monitoring encounter Performed By: #### C BC, POOJA, LIPASE #### [address] Hematocrit (Bld) [Volume fraction] 47.4 % Normal 38.8-50.0 [facility] Comment on above: Order Comment: Reaso n for Exam Medication monitoring encounter Performed By: #### C BC, POOJA, LIPASE #### [address] Hemoglobin (Bld) [Mass/Vol] 15.5 g/dL Normal 13.0-17.0 [facility] Comment on above: Order Comment: Reaso n for Exam Medication monitoring encounter Performed By: #### C BC, POOJA, LIPASE #### [address] Lymphocytes (Bld) [#/Vol] 4.3 10*3/uL Normal 1.00-4.8 [facility] Comment on above: Order Comment: Reaso n for Exam Medication monitoring encounter Performed By: #### C BC, POOJA, LIPASE #### [address] Lymphocytes/100 WBC (Bld) 46.5 % Normal . [facility] Comment on above: Order Comment: Reaso n for Exam Medication monitoring encounter Performed By: #### C BC, POOJA, LIPASE #### [address] MCH (RBC) [Entitic mass] 30.2 pg Normal 27.5-35.2 [facility] Comment on above: Order Comment: Reaso n for Exam Medication monitoring encounter Performed By: #### C BC, POOJA, LIPASE #### [address] MCV (RBC) [Entitic vol] 92.3 fL Normal 83.5-101 [facility] Comment on above: Order Comment: Reaso n for Exam Medication monitoring encounter Performed By: #### C BC, POOJA, LIPASE #### [address] [place] [address] [place] Mean Corpuscular HGB Conc 32.7 g/dL Normal 32.5-35.6 [facility] Comment on above: Order Comment: Reaso n for Exam Medication monitoring encounter Performed By: #### C BC, POOJA, LIPASE #### [address] Monocytes (Bld) [#/Vol] 0.8 10*3/uL Normal 0.0-0.8 [facility] Comment on above: Order Comment: Reaso n for Exam Medication monitoring encounter Performed By: #### C BC, POOJA, LIPASE #### [address] Monocytes/100 WBC (Bld) 8.3 % Normal . [facility] Comment on above: Order Comment: Reaso n for Exam Medication monitoring encounter Performed By: #### C BC, POOJA, LIPASE #### [address] Neutrophils (Bld) [#/Vol] 3.6 10*3/uL Normal 1.8-7.7 [facility] Comment on above: Order Comment: Reaso n for Exam Medication monitoring encounter Performed By: #### C BC, POOJA, LIPASE #### [address] Neutrophils/100 WBC (Bld) 38.6 % Normal . [facility] Comment on above: Order Comment: Reaso n for Exam Medication monitoring encounter Performed By: #### C BC, POOJA, LIPASE #### [address] NRBC% 0.0 /100{WBC} Normal 0-0.5 [facility] Comment on above: Order Comment: Reaso n for Exam Medication monitoring encounter Performed By: #### C BC, POOJA, LIPASE #### [address] Platelet mean volume (Bld) [Entitic vol] 11.1 fL High 6.6-10.1 [facility] Comment on above: Order Comment: Reaso n for Exam Medication monitoring encounter Performed By: #### C BC, POOJA, LIPASE #### [facility] [address] WBC (Bld) [#/Vol] 9.2 10*3/uL Normal 4.1-10.5 [facility] Comment on above: Order Comment: Reaso n for Exam Medication monitoring encounter Performed By: #### C BC, POOJA, LIPASE #### [facility] [address] [place] [id number] [facility] Basophils (Bld) [#/Vol] 0.016670987 10*3/uL Normal 0.0-0.2 10*3/uL [facility] Other Basophils/100 WBC (Bld) 0.500 % . % [address] [facility] Other Eosinophils (Bld) [#/Vol] 0.654447946 10*3/uL High 0.0-0.45 10*3/uL [facility] Other Eosinophils/100 WBC (Bld) 6.100 % . % [facility] Other Erythrocyte distribution width (RBC) [Ratio] 13.600 % Normal 12.0-14.8 % [facility] Other Hematocrit (Bld) [Volume fraction] 47.400 % Normal 38.8-50.0 % [facility] Other Hemoglobin (Bld) [Mass/Vol] 15.498969 g/dL Normal 13.0-17.0 g/dL [facility] Other Lymphocytes (Bld) [#/Vol] 4.526292571 10*3/uL Normal 1.00-4.8 10*3/uL [facility] Other Lymphocytes/100 WBC (Bld) 46.500 % . % [facility] Other MCH (RBC) [Entitic mass] 30.2000 pg Normal 27.5-35.2 pg [facility] Other MCV (RBC) [Entitic vol] 92.3000 fL Normal 83.5-101 fL [facility] Other Monocytes (Bld) [#/Vol] 0.106149734 10*3/uL Normal 0.0-0.8 10*3/uL [facility] Other Monocytes/100 WBC (Bld) 8.300 % . % [address] [facility] Other Neutrophils (Bld) [#/Vol] 3.116740696 10*3/uL Normal 1.8-7.7 10*3/uL [facility] Other Neutrophils/100 WBC (Bld) 38.600 % . % [facility] Other Platelet mean volume (Bld) [Entitic vol] 11.1000 fL High 6.6-10.1 fL [facility] Other WBC (Bld) [#/Vol] 9.400357000 10*3/uL Normal 4.1 -10.5 10*3/uL [facility] Other Complete Blood Count Auto Diff 9.2 10*3/uL Normal 4.1-10.5 10*3/uL [facility] Other Complete Blood Count Auto Diff 32.7 g/dL Normal 32.5-35.6 g/dL [facility] Other Complete Blood Count Auto Diff 0.0 /100{WBC} Normal 0-0.5 /100{WBC} [facility] Other Complete Blood Count Auto Di ffOrdered By: Maribeth Vuong on 07-15-2022 Platelets (Bld) [#/Vol] 236 10*3/uL Normal 150-450 [facility] Comment on above: Order Comment: Reaso n for Exam Medication monitoring encounter Performed By: #### C BC, POOJA, LIPASE #### [address] RBC (Bld) [#/Vol] 5.13 10*6/uL Normal 3.90-5.60 [facility] Comment on above: Order Comment: Reaso n for Exam Medication monitoring encounter Performed By: #### C BC, POOJA, LIPASE #### [facility] [address] ER URINE PROFILEon 3 Bilirubin Ql (U) Negative Normal NEGATIVE [facility] Comment on above: Performed By: #### E RUR ####[facility] [address] [place] [address]Dr. Keymera David Clarity (U) CLEAR Normal CLEAR [facility] Comment on above: Performed By: #### E RUR ####[facility] [address] [place], [place] [address]Dr. Yilan David Color (U) LT. YELLOW Normal YELLOW [facility] Comment on above: Performed By: #### E RUR ####[facility] [address] [place], [place] [address]Dr. Sydney David ERUAHD A micrscopic examination will be performed if indicated. Normal [facility] Comment on above: Performed By: #### E RUR ####[facility] [address] [place], [place] [address]Dr. Yilan David Glucose Ql (U) Negative Normal NEGATIVE [facility] Comment on above: Performed By: #### E RUR ####[facility] [address] [place], [place] [address]Dr. Yilan David Hemoglobin Ql (U) Negative Normal NEGATIVE [facility] Comment on above: Performed By: #### E RUR ####[facility] [address] [place], [place] [address]Dr. Yilan David Ketones Ql (U) Negative Normal NEGATIVE [facility] Comment on above: Performed By: #### E RUR ####[facility] [address] [place], [place] [address]Dr. Yilan David LEUKOCYTES Negative Normal NEGATIVE [facility] Comment on above: Performed By: #### E RUR ####[facility] [address] [place] [address]Dr. Sydney David Nitrite Ql (U) Negative Normal NEGATIVE [facility] Comment on above: Performed By: #### E RUR ####[facility] [address] [place] [address]Dr. Sydney David pH (U) 5.5 [pH] Normal 5-9 [facility] Comment on above: Performed By: #### E RUR ####[facility] [address] [place], [place] [address]Dr. Sydney David SPEC GRAVITY 1.010 Normal 1.005-<=1.[address] [facility] Comment on above: Performed By: #### E RUR ####[facility] [address] [place], [place] [address]Dr. Sydney David UA PROTEIN Negative Normal NEGATIVE/ TRACE [facility] Comment on above: Performed By: #### E RUR ####[facility] [address] [place], [place] [address]Dr. Sydney David UR MICRO IND NOT INDICATED Normal [facility] Comment on above: Performed By: #### E RUR ####[facility] [address] [place], [place] [address]Dr. Sydney David Urobilinogen Qn (U) 0.2 {Johan'U}/dL Normal 0.2 - 1. 0 [facility] Comment on above: Performed By: #### E RUR ####[facility] [address] [place], [place] [address]Dr. Sydney Frankie Eosinophils Auto (Bld) [#/Vo l]Ordered By: Maribeth Vuong on 07-15-2022 Eosinophils (Bld) [#/Vol] 0.6 10*3/uL 0.0-0.45 [facility] Eosinophils/100 WBC Auto (Bl d)Ordered By: Maribeth Vuong on 07-15-2022 Eosinophils/100 WBC (Bld) 6.1 % . [facility] Erythrocyte distribution wid th Auto (RBC) [Ratio]Ordered By: Maribeth Vuong on 07-15-2022 Erythrocyte distribution width (RBC) [Ratio] 13.6 % 12.0-14.8 [facility] Hematocrit Auto (Bld) [Volum e fraction]Ordered By: Maribeth Vuong on 07-15-2022 Hematocrit (Bld) [Volume fraction] 47.4 % 38.8-50.0 [facility] Hemoglobin [Mass/volume] in BloodOrdered By: Maribeth Vuong on 07-15-2022 Hemoglobin (Bld) [Mass/Vol] 15.5 g/dL 13.0-17.0 [facility] Leukocytes [#/volume] correc gris for nucleated erythrocytes in Blood by Automated counOrdered By: Maribeth Vuong on 07-15-2022 WBC corrected for nucl RBC Auto (Bld) [#/Vol] 9.2 10*3/uL 4.1-10.5 [facility] Lipaseon 07-15-2022 Lipase [Catalytic activity/Vol] 80.0 U/L Normal 11.0-82.0 [facility] Comment on above: Order Comment: Reaso n for Exam Generalized abdominal pain;Slow transit constipation;Medicat Reason for Exam Generalized abdominal pain;Medication monitoring encounter NOT FASTING. JKW Result Comment: PERF ORMED BY: [place] [address] PATHOLOGIST COAL TRIMMER MACHINE OPERATOR ALEM GARCIA M.D. Performed By: #### C BC, POOJA, LIPASE #### [address] Lipase [Catalytic activity/Vol] 80.21757 U/L Normal 11.0-82.0 U/L [facility] Other Lipase [Enzymatic activity/v olume] in Serum or PlasmaOrdered By: Maribeth Vuong on 07-15-2022 Lipase [Catalytic activity/Vol] 80.0 U/L 11.0-82.0 [facility] Lymphocytes Auto (Bld) [#/Vo l]Ordered By: Maribeth Vuong on 07-15-2022 Lymphocytes (Bld) [#/Vol] 4.3 10*3/uL 1.00-4.8 [facility] Lymphocytes/100 WBC Auto (Bl d)Ordered By: Maribeth Vuong on 07-15-2022 Lymphocytes/100 WBC (Bld) 46.5 % . [facility] MCH Auto (RBC) [Entitic mass ]Ordered By: Maribeth Vuong on 07-15-2022 MCH (RBC) [Entitic mass] 30.2 pg 27.5-35.2 [facility] MCHC Auto (RBC) [Mass/Vol]Or dered By: Maribeth Vuong on 07-15-2022 MCHC (RBC) [Mass/Vol] 32.7 g/dL 32.5-35.6 [facility] MCV Auto (RBC) [Entitic vol] Ordered By: Maribeth Vuong on 07-15-2022 MCV (RBC) [Entitic vol] 92.3 fL 83.5-101 [facility] Monocytes Auto (Bld) [#/Vol] Ordered By: Maribeth Vuong on 07-15-2022 Monocytes (Bld) [#/Vol] 0.8 10*3/uL 0.0-0.8 [facility] Monocytes/100 WBC Auto (Bld) Ordered By: Maribeth Vuong on 07-15-2022 Monocytes/100 WBC (Bld) 8.3 % . [facility] Neutrophils Auto (Bld) [#/Vo l]Ordered By: Maribeth Vuong on 07-15-2022 Neutrophils (Bld) [#/Vol] 3.6 10*3/uL 1.8-7.7 [facility] Neutrophils/100 WBC Auto (Bl d)Ordered By: Maribeth Vuong on 07-15-2022 Neutrophils/100 WBC (Bld) 38.6 % . [facility] Nucleated erythrocytes [Pres ence] in Blood by Automated countOrdered By: Maribeth Vuong on 07-15-2022 Nucleated RBC Auto Ql (Bld) 0.0 /100{WBC} 0-0.5 [facility] PROF CHEM 8 (BAS METB)on Anion gap [Moles/Vol] 13.3 mmol/L Normal Th e [facility] Comment on above: Performed By: #### B MP #### [facility] [address] [address] [address] Sydney David Calcium [Mass/Vol] 9.1 mg/dL Normal 8.5-10.1 [facility] Comment on above: Performed By: #### B MP #### [facility] [address] [place] [address] [address] Sydney David Chloride [Moles/Vol] 102 mmol/L Normal 98-107 [facility] Comment on above: Performed By: #### B MP #### [facility] [address] [place] [address] Dr. Sydney David CO2 [Moles/Vol] 27.2 mmol/L Normal 21.0-32.0 [facility] Comment on above: Performed By: #### B MP #### [facility] [address] [place] [address] Dr. Sydney David Creatinine [Mass/Vol] 1.08 mg/dL Normal 0.70-1.30 [facility] Comment on above: Performed By: #### B MP #### [facility] [address] [place] [address] Dr. Sydney David EGFR-AF [place] >60 Normal >=60 [facility] Comment on above: Performed By: #### B MP #### [facility] [address] [place] [address] Dr. Sydney David EGFR-NON AF [place] >60 Normal >=60 [facility] Comment on above: Performed By: #### B MP #### [facility] [address] [place] [address] Dr. Sydney David Glucose [Mass/Vol] 116 mg/dL Critically high 74-106 [facility] Comment on above: Performed By: #### B MP #### [facility] [address] [place] [address] Dr. Sydney David Potassium [Moles/Vol] 3.5 mmol/L Normal 3.5-5.1 [facility] Comment on above: Performed By: #### B MP #### [facility] [address] [place] [address] Dr. Sydney David Sodium [Moles/Vol] 139 mmol/L Normal 136-145 [facility] Comment on above: Performed By: #### B MP #### [facility] [address] [place] [address] [address] Sydney David Urea nitrogen [Mass/Vol] 12.0 mg/dL Normal 7.0-18.0 [facility] Comment on above: Performed By: #### B MP #### [facility] [address] [place] [address] [address] Sydney David Urea nitrogen/Creatinine [Mass ratio] 11.1 mg/mg Normal [facility] Comment on above: Performed By: #### B MP #### [facility] [address] [place] [address] [address] Sydney David Platelet mean volume Auto (B ld) [Entitic vol]Ordered By: Maribeth Vuong on 07-15-2022 Platelet mean volume (Bld) [Entitic vol] 11.1 fL 6.6-10.1 [facility] WBC Auto (Bld) [#/Vol]Ordere d By: Maribeth Vuong on 07-15-2022 WBC (Bld) [#/Vol] 9.2 10*3/uL 4.1-10.5 [facility] XR KUBon 07-15-2022 XR KUB [facility] [place] [address] XRay Report Signed Patient: Neal Irene MR#: [id number] 206 : 1980 Acct:[id number] Age/Sex: 41 / M ADM Date: 07/15/22 Loc: [facility] Room: Type: [facility] CLI Attending Dr: Maribeth Vuong DO Copies [...] Greer Jr., DMarylin07/15/2022 4:05 PM Dictation Location: [place] [address] Transcribed By: JIL 07/15/22 160 Dictated By: Sonny Greer Jr, DO 07/15/22 160 Signed By: 07/15/22 160 Normal [facility] Alanine aminotransferase [En zymatic activity/volume] in Serum or PlasmaOrdered By: Maribeth Vuong on 07-12-2022 ALT [Catalytic activity/Vol] 68 U/L 7-52 [facility] Albumin [Mass/volume] in Ser um or Plasma by Bromocresol green (BCG) dye binding methoOrdered By: Maribeth Vuong on 07-12-2022 Albumin BCG dye [Mass/Vol] 4.7 g/dL 3.5-5.7 [facility] Alkaline phosphatase [Enzyma tic activity/volume] in Serum or PlasmaOrdered By: Maribeth Vuong on 07-12-2022 ALP [Catalytic activity/Vol] 33 U/L 34-104 [facility] Aspartate aminotransferase [ Enzymatic activity/volume] in Serum or PlasmaOrdered By: Maribeth Vuong on 07-12-2022 AST [Catalytic activity/Vol] 29 U/L 13-39 [facility] Bilirubin.total [Mass/volume ] in Serum or PlasmaOrdered By: Maribeth Vuong on 07-12-2022 Bilirubin [Mass/Vol] 0.6 mg/dL 0.3-1.0 [facility] Calcium [Mass/volume] in Ser um or PlasmaOrdered By: Maribeth Vuong 07-12-2022 Calcium [Mass/Vol] 10.1 mg/dL 8.6-10.3 [facility] Carbon dioxide, total [Moles /volume] in Serum or PlasmaOrdered By: Maribeth Vuong on 07-12-2022 CO2 [Moles/Vol] 27.5 mmol/L 21.0-31.0 [facility] Chloride [Moles/volume] in S flash or PlasmaOrdered By: Maribeth Vuong on 07-12-2022 Chloride [Moles/Vol] 106 mmol/L 98-107 [facility] Cholesterol [Mass/volume] in Serum or PlasmaOrdered By: Maribeth Vuong on 07-12-2022 Cholesterol [Mass/Vol] 296 mg/dL 140-200 [facility] Comment on above: Chol less than 200 m g/dl low riskChol 201-239 mg/dl borderline riskChol 240 mg/dl and greater high risk Cholesterol in LDL Calc [Mas s/Vol]Ordered By: Maribeth Vuong on 07-12-2022 Cholesterol in LDL [Mass/Vol] 206 mg/dL 0-100 [facility] Comment on above: LDL ATP III CLASSIFI CATIONLDL less than 100 mg/dL OptimalLDL 100-129 mg/dL Near or above optimalLDL 130-159 mg/dL Borderline highLDL 160-189 mg/dL HighLDL greater than 189 mg/dL Very high Cholesterol in VLDL Calc [Ma ss/Vol]Ordered By: Maribeth Vuong on 07-12-2022 Cholesterol in VLDL [Mass/Vol] 53 mg/dL [facility] Comprehensive Metabolic Pane jenni 07-12-2022 Albumin [Mass/Vol] 4.7 g/dL Normal 3.5-5.7 [facility] Comment on above: Order Comment: PT FA STED 12 HOURS Reason for Exam Well adult exam;Lipid disorder;Medication monitoring encount Reason for Exam Lipid disorder Performed By: #### L IPID, PSAS W RFX, CMP #### [facility] [address] [place] [address] Albumin/Globulin [Mass ratio] 1.8 {ratio} Normal [facility] Comment on above: Order Comment: PT FA STED 12 HOURS Reason for Exam Well adult exam;Lipid disorder;Medication monitoring encount Reason for Exam Lipid disorder Performed By: #### L IPID, PSAS W RFX, CMP #### [facility] [address] [place] [id number] [place] ALP [Catalytic activity/Vol] 33 U/L Low 34-104 [facility] Comment on above: Order Comment: PT FA STED 12 HOURS Reason for Exam Well adult exam;Lipid disorder;Medication monitoring encount Reason for Exam Lipid disorder Performed By: #### L IPID, PSAS W RFX, CMP #### [facility] [address] [place] [id number] [place] ALT [Catalytic activity/Vol] 68 U/L High 7-52 [facility] Comment on above: Order Comment: PT FA STED 12 HOURS Reason for Exam Well adult exam;Lipid disorder;Medication monitoring encount Reason for Exam Lipid disorder Performed By: #### L IPID, PSAS W RFX, CMP #### [facility] [address] Anion gap [Moles/Vol] 11.8 mmol/L Normal 6.0-15.0 [facility] Comment on above: Order Comment: PT FA STED 12 HOURS Reason for Exam Well adult exam;Lipid disorder;Medication monitoring encount Reason for Exam Lipid disorder Performed By: #### L IPID, PSAS W RFX, CMP #### [facility] [address] AST [Catalytic activity/Vol] 29 U/L Normal 13-39 [facility] Comment on above: Order Comment: PT FA STED 12 HOURS Reason for Exam Well adult exam;Lipid disorder;Medication monitoring encount Reason for Exam Lipid disorder Performed By: #### L IPID, PSAS W RFX, CMP #### [facility] [address] [place] [address] Bilirubin [Mass/Vol] 0.6 mg/dL Normal 0.3-1.0 [facility] Comment on above: Order Comment: PT FA STED 12 HOURS Reason for Exam Well adult exam;Lipid disorder;Medication monitoring encount Reason for Exam Lipid disorder Performed By: #### L IPID, PSAS W RFX, CMP #### [facility] [address] Calcium [Mass/Vol] 10.1 mg/dL Normal 8.6-10.3 [facility] Comment on above: Order Comment: PT FA STED 12 HOURS Reason for Exam Well adult exam;Lipid disorder;Medication monitoring encount Reason for Exam Lipid disorder Performed By: #### L IPID, PSAS W RFX, CMP #### [facility] [address] Chloride [Moles/Vol] 106 mmol/L Normal 98-107 [facility] Comment on above: Order Comment: PT FA STED 12 HOURS Reason for Exam Well adult exam;Lipid disorder;Medication monitoring encount Reason for Exam Lipid disorder Performed By: #### L SOLOMON PSAS W RFX, CMP #### [facility] [address] CO2 [Moles/Vol] 27.5 mmol/L Normal 21.0-31.0 [facility] Comment on above: Order Comment: PT FA STED 12 HOURS Reason for Exam Well adult exam;Lipid disorder;Medication monitoring encount Reason for Exam Lipid disorder Performed By: #### L SOLOMON PSAS W RFX, CMP #### [facility] [address] [place] [address] Creatinine [Mass/Vol] 0.96 mg/dL Normal 0.70-1.30 [facility] Comment on above: Order Comment: PT FA STED 12 HOURS Reason for Exam Well adult exam;Lipid disorder;Medication monitoring encount Reason for Exam Lipid disorder Performed By: #### L SOLOMON PSAS W RFX, CMP #### [facility] [address] [place] [address] GFR/1.73 sq M.predicted MDRD (S/P/Bld) [Vol rate/Area] mL/min/{1.73_m2} [facility] Comment on above: Order Comment: PT FA STED 12 HOURS Reason for Exam Well adult exam;Lipid disorder;Medication monitoring encount Reason for Exam Lipid disorder Performed By: #### L SOLOMON PSAS W RFX, CMP #### [facility] [address] Globulin (S) [Mass/Vol] 2.6 g/dL Normal [facility] Comment on above: Order Comment: PT FA STED 12 HOURS Reason for Exam Well adult exam;Lipid disorder;Medication monitoring encount Reason for Exam Lipid disorder Performed By: #### L IPDANNIELLE, PSAS W RFX, CMP #### [facility] [address] Glucose [Mass/Vol] 106 mg/dL High 70-100 [facility] Comment on above: Order Comment: PT FA STED 12 HOURS Reason for Exam Well adult exam;Lipid disorder;Medication monitoring encount Reason for Exam Lipid disorder Result Comment: [facility] Glucose Reference Range is dependent on time and content of last meal. Glucose of more than 200 mg/dL in a nonstressed, ambulatory subject supports the diagnosis of Diabetes Mellitus. ADA recommended reference range Performed By: #### L IPID, PSAS W RFX, CMP #### [facility] [address] [place] [address] [place] Potassium [Moles/Vol] 4.3 mmol/L Normal 3.5-5.1 [facility] Comment on above: Order Comment: PT FA STED 12 HOURS Reason for Exam Well adult exam;Lipid disorder;Medication monitoring encount Reason for Exam Lipid disorder Performed By: #### L IPID, PSAS W RFX, CMP #### [facility] [address] Protein [Mass/Vol] 7.3 g/dL Normal 6.4-8.9 [facility] Comment on above: Order Comment: PT FA STED 12 HOURS Reason for Exam Well adult exam;Lipid disorder;Medication monitoring encount Reason for Exam Lipid disorder Performed By: #### L IPID, PSAS W RFX, CMP #### [facility] [address] [place] [address] [place] Sodium [Moles/Vol] 141 mmol/L Normal 136-145 [facility] Comment on above: Order Comment: PT FA STED 12 HOURS Reason for Exam Well adult exam;Lipid disorder;Medication monitoring encount Reason for Exam Lipid disorder Performed By: #### L IPID, PSAS W RFX, CMP #### [facility] [address] [place] [id number] [place] Urea nitrogen [Mass/Vol] 12 mg/dL Normal 7-25 [facility] Comment on above: Order Comment: PT FA STED 12 HOURS Reason for Exam Well adult exam;Lipid disorder;Medication monitoring encount Reason for Exam Lipid disorder Performed By: #### L IPID, PSAS W RFX, CMP #### [facility] [address] [place] [id number] [place] Creatinine [Mass/volume] in Serum or PlasmaOrdered By: Maribeth Vuong on 07-12-2022 Creatinine [Mass/Vol] 0.96 mg/dL 0.70-1.30 [facility] Globulin Calc (S) [Mass/Vol] Ordered By: Maribeth Woodymer on 07-12-2022 Globulin (S) [Mass/Vol] 2.6 g/dL [facility] Glucose [Mass/volume] in Ser um or PlasmaOrdered By: Maribeth Woodymer on 07-12-2022 Glucose [Mass/Vol] 106 mg/dL 70-100 [facility] Comment on above: ADA recommended refe rence rangeRandom Glucose Reference Range is dependent on time and content of last meal. Glucose of more than 200 mg/dL in a nonstressed, ambulatory subject supports the diagnosis of Diabetes Mellitus. Lipid Panelon 07-12-2022 Cholesterol [Mass/Vol] 296 mg/dL High 140-200 [facility] Comment on above: Order Comment: PT FA STED 12 HOURS Reason for Exam Well adult exam;Lipid disorder;Medication monitoring encount Reason for Exam Lipid disorder Result Comment: Chol less than 200 mg/dl low risk Chol 201-239 mg/dl borderline risk Chol 240 mg/dl and greater high risk Performed By: #### L IPID, PSAS W RFX, CMP #### [facility] [address] Cholesterol in HDL [Mass/Vol] 37 mg/dL Normal 29-71 [facility] Comment on above: Order Comment: PT FA STED 12 HOURS Reason for Exam Well adult exam;Lipid disorder;Medication monitoring encount Reason for Exam Lipid disorder Result Comment: HDL CHOL ATP-III CLASSIFICATION Cardiovascular Risk HDL > or equal to 60 mg/dL LOW HDL < 40 mg/dL HIGH Performed By: #### L IPID, PSAS W RFX, CMP #### [facility] [address] [place] [id number] [facility] Cholesterol.total/Patti sterol in HDL [Mass ratio] 8.0 {ratio} Normal <5.0 [facility] Comment on above: Order Comment: PT FA STED 12 HOURS Reason for Exam Well adult exam;Lipid disorder;Medication monitoring encount Reason for Exam Lipid disorder Result Comment: PERF ORMED BY: [facility] [address] [place] [address] PATHOLOGIST COAL TRIMMER MACHINE OPERATOR ALEM GARCIA M.D. Performed By: #### L IPID, PSAS W RFX, CMP #### [facility] [address] [place] [address] LDL Cholesterol,Calculated 206 mg/dL High 0-100 [facility] Comment on above: Order Comment: PT [...] L IPID, PSAS W RFX, CMP #### [facility] [address] [place] [address] Triglyceride w/Reflex 266 mg/dL High 0-149 [facility] Comment on above: Order Comment: PT FA [...] L IPID, PSAS W RFX, CMP #### [facility] [address] [place] [address] VLDL CHOLESTEROL 53 mg/dL Normal [facility] Comment on above: Order Comment: PT FA STED 12 HOURS Reason for Exam Well adult exam;Lipid disorder;Medication monitoring encount Reason for Exam Lipid disorder Performed By: #### L IPID, PSAS W RFX, CMP #### [facility] [address] [place] [address] No Panel InformationOrdered By: Maribeth Vuong on 07-12-2022 Estimated GFR (CKD-EPI) > 60.0 mL/Min [facility] Creatinine Clearance (Chem N/A [facility] PSA Screen (Yearly) w/Reflex on 07-12-2022 PSA Screen (Yearly) w/Reflex 0.670 ng/mL Normal 0.000-4.000 [facility] Comment on above: Order Comment: Reaso n for Exam Well adult exam;Prostate cancer screening Is patient <50 yrs? Medicare does not pay <50.: Y What is the date of the last PSA Screen?: N/A Is Medicare the insurance?: N Did you verify eligibility (Dx Time) check TestViewGp: YES TO ALL Result Comment: PERF ORMED BY: [place] [address] PATHOLOGIST COAL TRIMMER MACHINE OPERATOR ALEM GARCIA M.D. Performed By: #### L IPID, PSAS W RFX, CMP #### [address] Potassium [Moles/volume] in Serum or PlasmaOrdered By: Maribeth Vuong on 07-12-2022 Potassium [Moles/Vol] 4.3 mmol/L 3.5-5.1 [facility] Prostate specific Ag [Mass/v olume] in Serum or PlasmaOrdered By: Maribeth Vuong on 07-12-2022 Prostate specific Ag [Mass/Vol] 0.670 ng/mL 0.000-4.000 [facility] Protein [Mass/volume] in Ser um or PlasmaOrdered By: Maribeth Vuong on 07-12-2022 Protein [Mass/Vol] 7.3 g/dL 6.4-8.9 [facility] Serum or plasma albumin/glob ulin mass ratioOrdered By: Maribeth Vuong on 07-12-2022 Albumin/Globulin [Mass ratio] 1.8 {ratio} [facility] Serum or plasma anion gap de terminationOrdered By: Maribeth Vuong on 07-12-2022 Anion gap [Moles/Vol] 11.8 mmol/L 6.0-15.0 [facility] Serum or plasma high density lipoprotein (HDL) cholesterol measurementOrdered By: Maribeth Vuong on 07-12-2022 Cholesterol in HDL [Mass/Vol] 37 mg/dL 29-71 [facility] Comment on above: HDL CHOL ATP-III CLA SSIFICATION Cardiovascular RiskHDL > or equal to 60 mg/dL LOWHDL < 40 mg/dL HIGH Serum or plasma total choles terol/high density lipoprotein (HDL) cholesterol mass ratOrdered By: Maribeth Vuong on 07-12-2022 Cholesterol.total/Patti sterol in HDL [Mass ratio] 8.0 {ratio} <5.0 [facility] Sodium [Moles/volume] in Ser um or PlasmaOrdered By: Maribeth Vuong on 07-12-2022 Sodium [Moles/Vol] 141 mmol/L 136-145 [facility] Triglyceride [Mass/volume] i n Serum or PlasmaOrdered By: Maribeth Vuong on 07-12-2022 Triglyceride [Mass/Vol] 266 mg/dL 0-149 [facility] Comment on above: TRIG ATP III CLASSIF ICATIONTRIG less than 150 mg/dL NormalTRIG 150-199 mg/dL Borderline highTRIG 200-500 mg/dL High TRIG greater than 500 mg/dL Very highStandard traceable to the Center for Disease Conrtrol and Prevention (CDC) test method. Urea nitrogen [Mass/volume] in Serum or PlasmaOrdered By: Maribeth Vuong on 07-12-2022 Urea nitrogen [Mass/Vol] 12 mg/dL 10-29 [facility] XR LSPINE 2_3 VIEWSon 2022 XR [...] DAMARIS ESPINOSA Date: 2022-07-02 14:57 Normal [facility] MRI PELVIS WO CONon 03-23-20 23 [...] by: DAMARIS ESPINOSA Date: 2022-06-27 09:[address] [facility] MRI LSPINE WO CONon 06-27-19 MRI LSPINE [...] by: RENE LAUREN Date: 2022-06-26 15:[address] [facility] XR lumbar spine AP/LAT/FLX/E XTon 01-08-2021 XR lumbar spine AP/LAT/FLX/EXT [facility] [employer] Other XR lumbar spine AP/LAT/FLX/EXT [facility] [employer] Other XR lumbar spine AP/LAT/FLX/EXT [address] [place] [address] [employer] Other XR lumbar spine AP/LAT/FLX/[place] [address] [employer] Other XR lumbar spine AP/LAT/FLX/EXT XRay Report [facility] Other XR lumbar spine AP/LAT/FLX/EXT Signed [facility] Other XR lumbar spine AP/LAT/FLX/EXT Patient: Neal Irene MR#: [id number] [facility] Other XR lumbar spine AP/LAT/FLX/EXT 206 [employer] Other XR lumbar spine AP/LAT/FLX/EXT : 1980 Acct:[id number] [facility] Other XR lumbar spine AP/LAT/FLX/EXT Age/Sex: 40 / M ADM Date: 01/08/21 [facility] Other XR lumbar spine AP/LAT/FLX/EXT Loc: [facility] Room: Type: REG CLI [facility] Other XR lumbar spine AP/LAT/FLX/EXT Attending Dr: Charles Solares MD [facility] Other XR lumbar spine AP/LAT/FLX/EXT Ordering Provider: Charles Solares MD [facility] Other XR lumbar spine AP/LAT/FLX/EXT Date of Service: 01/08/21 [employer] Other XR lumbar spine AP/LAT/FLX/EXT XR/XR lumbar spine AP/LAT/FLX/EXT: Other spondylosis with radiculopathy, [facility] Other XR lumbar spine AP/LAT/FLX/EXT lumbar region [facility] Other XR lumbar spine AP/LAT/FLX/EXT Copies to: Charles Solares MD [employer] Other XR lumbar spine AP/LAT/FLX/EXT Lumbar spine 01/08/2021. [employer] Other XR lumbar spine AP/LAT/FLX/EXT CLINICAL DATA: Low back pain. [employer] Other XR lumbar spine AP/LAT/FLX/EXT FINDINGS: 4 standing views of the lumbar spine were obtained including lateral views in the [employer] Other XR lumbar spine AP/LAT/FLX/EXT neutral, flexion, and extension positions. This examination is compared with a prior study 04/14/2019. [facility] Other XR lumbar spine AP/LAT/FLX/EXT There are stable postsurgical changes related to lumbosacral spinal fusion. There is also stable [employer] Other XR lumbar spine AP/LAT/FLX/EXT anterior malalignment of L5 on S1. Mild posterior malalignment of L2 on L3 is noted. Overall [employer] Other XR lumbar spine AP/LAT/FLX/EXT vertebral alignment does not significantly change with limited flexion or limited extension. Disc [facility] Other XR lumbar spine AP/LAT/FLX/EXT space narrowing is identified. Minimal degenerative changes are seen. [facility] Other XR lumbar spine AP/LAT/FLX/EXT XR/XR lumbar spine AP/LAT/FLX/EXT [facility] Other XR lumbar spine AP/LAT/FLX/EXT IMPRESSION: Stable postsurgical changes and mild vertebral malalignment at the lumbosacral junction. [employer] Other XR lumbar spine AP/LAT/FLX/EXT Mild posterior malalignment of L2 on L3. No instability with limited flexion or extension. Disc [employer] Other XR lumbar spine AP/LAT/FLX/EXT space narrowing and minimal degenerative changes. [facility] Other XR lumbar spine AP/LAT/FLX/EXT Impression dictated by: Jude Stock Jr., M.D.01/08/2021 2:59 PM [employer] Other XR lumbar spine AP/LAT/FLX/EXT Dictation Location: [place] [address] [employer] Other XR lumbar spine AP/LAT/FLX/EXT Transcribed By: JIL 01/08/21 [facility] [employer] Other XR lumbar spine AP/LAT/FLX/EXT Dictated By: Jude Stock Jr, MD 01/08/21 [facility] [employer] Other XR lumbar spine AP/LAT/FLX/EXT Signed By: [employer] Other XR lumbar spine AP/LAT/FLX/EXT 01/08/21 [facility] [employer] Other MADONNAOVdary 06-09-2018 CNOV Office Visit (NSFRVW ) NEAL IRENE ([id number]) 1980 M Date Time Provider Department 06/09/18 [...] fx. Had surgery by Dr. Robbie Wakefield, [facility] in [place]. 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 Author Type: [...] fx. Had surgery by Dr. Robbie Wakefield, [facility] in [place]. 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 Hx of back problems and surgeries. Took two [place], flexeril, celebrex prior to coming. Needs another surgery for back. History of Present Illness 37-year-old white male presents emergency room with his and complaints of worsening lower back pain after bending over to light his heater in his shop. Patient has had prior back surgery by Dr. Sen in [place] March 14, 2015. Patient states he has [...] Anxious mood & affect. Integumentary: Warm, Dry, Tower Medical Decision Making X-rays did not demonstrate [...] WASSIL In 3 days 04/04/2018 EST [address] [place] [address]- Business (1) Additional Instructions: Call tomorrow for [...] made to ensure accuracy, however, inadvertently computerized engraver signature mistakes may be present. Patient was treated and evaluated by the physician assistant clinical director. The attending physician was in the emergency [...] acute fracture. Signed By: Andreas Cordova MD [facility] Comment on above: Result Comment: Elec tronically Signed By: Abdelrahman Olvera PA-C\.br\Date and Time Signed: 04/01/18 12:55 EST\.br\Electronically Co-Signed By: Lashay Li DO\.br\Date and Time Co-Signed: 04/07/18 16:20 EST Coding Summary.on 04-02-2018 Coding Summary. CODING DATE: 04/02/2018 FINAL [facility] STATUS: Home (Routine DC) PAYOR: Commercial Insurance APC DESCRIPTION 5522 Level 2 Imaging without Contrast ADMIT DX: REASON FOR VISIT DX: M54.5 Low back pain FINAL DX: PRINCIPAL: M54.5 Low back pain SECONDARY: M53.3 Sacrococcygeal disorders, not elsewhere classified Z79.899 Other custodial (current) drug therapy PYMT PROC APC STAT DESCRIPTION DOCTOR NAME DATE NOTE: The code number assigned matches the documented diagnosis and / or procedure in the patient's chart. However, the narrative phrase printed from the coding software may appear abbreviated, or result in slightly different terminology. Coded By: Laila Mcghee Date Saved: 04/02/2018 11:01 am Normal [facility] ED Clinical Summaryon 2017 ED Clinical Summary [place] [address] ED Clinical Summary Person Information Name: NEAL IRENE[place] Age: 37 Years : 1980 12:00 AM Sex: Male Language: Sinhala PCP: RENE MORRELL DO Marital Status: Visit [...] 04/01/2018 1:01 PM 04/01/2018 1:01 PM ADDRESS: [address] [place] [phone] PHYS DOC NOTES: MEDICAL INFORMATION: Prescriptions Given: [...] Follow up: With: Address: When: RENE MORRELL [address] [place] [address] [facility] () In 3 days 04/04/2018 Comments: Call [...] the lower extremities DIAGNOSIS: Lumbosacral pain Normal [facility] ED Patient Education Noteon 04-01-2018 ED Patient [...] stressful on the back to sit or storage administrator one place. Do not sit, drive, or storage administrator one place for more than 30 minutes [...] pillow under your knees. ? Only take xhoj-gsx-xxlyloz or prescription medicines as directed by your caregiver. Mhbd-rin-dkglpes medicines to reduce pain and inflammation are [...] Document Reviewed: 07/26/2014 ExitCare? Patient Information ?2015 [employer]. This information is not intended to replace [...] the first months of treatment. Only take krnn-zsw-xjnvrfs or prescription medicines for pain, discomfort, or [...] Document Reviewed: 07/17/2009 ExitCare? Patient Information ?2015 [employer]. This information is not intended to replace advice given to you by your health care provider. Make sure you discuss any questions you have with your health care provider. Normal [facility] ED Patient Summaryon 12-26-2 018 ED Patient Summary [address] [id number] Patient Discharge Instructions Person Information Name: NEAL IRENE Age: 37 Years Arrival Date: 04/01/2018 11:05 AM Discharge Diagnosis: Lumbosacral pain Primary Care Physician: RENE MORRELL DO Provider Information Primary Provider: Lashay Li DO [employer] C[employer] Helper:Abdelrahman Olvera PA-C The exam and treatment you received in the Emergency Department were for an urgent problem and are not intended as complete care. It is important that you follow up with a doctor, nurse practitioner, or physician?s assistant clinical director for ongoing care. If your symptoms become worse or you do not improve as expected and you are unable to reach your usual health care provider, you should return to the Emergency Department. We are available 24 hours a day. NEAL IRENE has been given the following list of patient education materials, prescriptions and follow-up instructions: Follow-up Instructions: With: Address: When: RENE MORRELL [address] [place] [address] [facility] () In 3 days 04/04/2018 Comments: Call [...] opioids can be used to help relieve lwpoabyq-kb-vfzgvn pain and are often prescribed following a [...] be struggling with addiction, tell your health child care sitter and ask for guidance or call [employer] at 3-732-527-FGAY. v Source: US Department of Health and Human Services/Center for Disease Control & Prevention [facility] Medications Given: Medication Dose Route [...] Comment: Pharmacy Information: Thank you for choosing [facility] Patient Education Materials: Radicular Pain [...] the first months of treatment. Only take ozej-zpy-yamyhjn or prescription medicines for pain, discomfort, or [...] Document Reviewed: 07/17/2009 ExitCare? Patient Information ?2014 [employer] [facility]. This information is not intended to replace [...] stressful on the back to sit or storage administrator one place. Do not sit, drive, or storage administrator one place for more than 30 minutes [...] pillow under your knees. ? Only take qebc-wai-tlnypdo or prescription medicines as directed by your caregiver. Qnku-zbu-otwhvln medicines to reduce pain and inflammation are [...] Document Reviewed: 07/26/2014 ExitCare? Patient Information ?2015 [employer]. This information is not intended to replace advice given to you by your health care provider. Make sure you discuss any questions you have with your health care provider. I, NEAL IRENE , have received the following patient education materials/instruction s and have verbalized understanding: Patient Education Materials: Radicular Pain; Back Pain, Adult Follow-up Instructions: With: Address: When: RENE [address]ONISIL [address] [place] [address] Business (1) In 3 days 04/04/2018 Comments: [...] Signature Date Clinician/Nurse Signature Date 04/01/18 13:01:03 [facility] Progress Note-Nurseon 2017 Protein mass conc [...] No further needs at this time. Normal [facility] XR Spine Lumbosacral Minimum 4 Viewson 04-01-2018 [...] MD Transcribed by: DARSHAN Technologist: DEAN Normal [facility] Vital Signs Date Time Vital Sign Value Performing Clinician Facility 01-17-2023 09:00-0400 Body height 177.8 cm Maribeth Vuong Other [facility] Other 01-17-2023 09:00-0400 Body mass index (BMI) [Ratio] 39.17 kg/m2 Maribeth Vuong Other [facility] Other 01-17-2023 09:00-0400 Body temperature 97.7 [degF] Maribeth Vuong Other [facility] Other 01-17-2023 09:00-0400 Body weight 123.83 kg Maribeth Vuong Other [facility] Other 01-17-2023 09:00-0400 Diastolic blood pressure 78 mm[Hg] Maribeth Vuong Other [facility] Other 01-17-2023 09:00-0400 SaO2% (BldA) [Mass fraction] 98 % Maribeth Vuong Other [facility] Other 01-17-2023 09:00-0400 Systolic blood pressure 112 mm[Hg] Maribeth Vuong Other [facility] Other 12-18-2022 09:45-0400 Body height 177.8 cm Maribeth Vuong Other [facility] Other 12-18-2022 09:45-0400 Body mass index (BMI) [Ratio] 37.73 kg/m2 Maribeth Vuong Other [facility] Other 12-18-2022 09:45-0400 Body weight 119.3 kg Maribeth Vuong Other [facility] Other 12-18-2022 09:45-0400 Diastolic blood pressure 86 mm[Hg] Maribeth Vuong Other [facility] Other 12-18-2022 09:45-0400 Respiratory rate 18 /min Maribeth Vuong Other [facility] Other 12-18-2022 09:45-0400 SaO2% (BldA) [Mass fraction] 95 % Maribeth Vuong Other [facility] Other 12-18-2022 09:45-0400 Systolic blood pressure 126 mm[Hg] Maribeth Vuong Other [facility] Other 12-12-2022 08:00-0400 Body height 177.8 cm Maribeth Carolann Other [facility] Other 12-12-2022 08:00-0400 Body mass index (BMI) [Ratio] 37.73 kg/m2 Maribeth Carolann Other [facility] Other 12-12-2022 08:00-0400 Body temperature 98.5 [degF] Maribeth Vuong Other [facility] Other 12-12-2022 08:00-0400 Body weight 119.3 kg Maribeth Carolann Other [facility] Other 12-12-2022 08:00-0400 Diastolic blood pressure 102 mm[Hg] Maribeth Vuong Other [facility] Other 12-12-2022 08:00-0400 SaO2% (BldA) [Mass fraction] 96 % Maribeth Carolann Other [facility] Other 12-12-2022 08:00-0400 Systolic blood pressure 150 mm[Hg] Maribeth Vuong Other [facility] Other 09-26-2022 10:22-0400 Diastolic blood pressure 108 mm[Hg] DO Maribeth Vuong Work Phone: [facility] 09-26-2022 10:22-0400 Heart rate 74 /min DO Maribeth Vuong Work Phone: [facility] 09-26-2022 10:22-0400 Respiratory rate 16 /min DO Maribeth Vuong Work Phone: [facility] 09-26-2022 10:22-0400 SaO2% (BldA) [Mass fraction] 98 % DO Maribeth Vuong Work Phone: [facility] 09-26-2022 10:22-0400 Systolic blood pressure 156 mm[Hg] DO Maribeth Vuong Work Phone: [facility] 09-26-2022 08:26-0400 Body height 175.26 cm DO Maribeth Vuong Work Phone: [facility] 09-26-2022 08:26-0400 Body temperature 98.5 [degF] DO Maribeth Vuong Work Phone: [facility] 09-26-2022 08:26-0400 Body weight 113.39 kg DO Maribeth Vuong Work Phone: [facility] 09-11-2022 09:45-0400 Body height 177.8 cm Maribeth Carolann Other [employer] [facility] Other 09-11-2022 09:45-0400 Body mass index (BMI) [Ratio] 35.37 kg/m2 Maribeth Vuong Other [facility] Other 09-11-2022 09:45-0400 Body weight 111.81 kg Maribeth Vuong Other [facility] Other 09-11-2022 09:45-0400 Diastolic blood pressure 88 mm[Hg] Maribeth Vuong Other [facility] Other 09-11-2022 09:45-0400 Respiratory rate 18 /min Maribeth Vuong Other [facility] Other 09-11-2022 09:45-0400 SaO2% (BldA) [Mass fraction] 98 % Maribeth Vuong Other [facility] Other 09-11-2022 09:45-0400 Systolic blood pressure 142 mm[Hg] Maribeth Vuong Other [facility] Other 07-24-2022 10:30-0400 Body height 177.8 cm Igor Scovanner Other [facility] Other 07-24-2022 10:30-0400 Body mass index (BMI) [Ratio] 35.58 kg/m2 Igor Scovanner Other [facility] Other 07-24-2022 10:30-0400 Body weight 112.49 kg Igor Scovanner Other [facility] Other 07-24-2022 10:30-0400 Diastolic blood pressure 132 mm[Hg] Igor Scovanner Other [facility] Other 07-24-2022 10:30-0400 Systolic blood pressure 187 mm[Hg] Igor Scovanner Other [facility] Other 07-15-2022 12:15-0400 Body height 177.8 cm Maribeth Vuong Other [facility] Other 07-15-2022 12:15-0400 Body mass index (BMI) [Ratio] 35.58 kg/m2 Maribeth Vuong Other [facility] Other 07-15-2022 12:15-0400 Body temperature 98.1 [degF] Maribeth Vuong Other [facility] Other 04-10-2023 12:15-0400 Body weight 112.49 kg Maribeth Woodymer Other [facility] Other 07-15-2022 12:15-0400 Diastolic blood pressure 110 mm[Hg] Maribeth Woodymer Other [facility] Other 07-15-2022 12:15-0400 SaO2% (BldA) [Mass fraction] 97 % Maribeth Woodymer Other [facility] Other 07-15-2022 12:15-0400 Systolic blood pressure 156 mm[Hg] Maribeth Carolann Other [facility] Other 01-04-2022 12:15-0400 Body height 177.8 cm Maribeth Carolann Other [facility] Other 01-04-2022 12:15-0400 Body mass index (BMI) [Ratio] 34.39 kg/m2 Maribeth Woodymer Other [facility] Other 01-04-2022 12:15-0400 Body weight 108.73 kg Maribeth Carolann Other [facility] Other 01-04-2022 12:15-0400 Diastolic blood pressure 86 mm[Hg] Maribeth Carolann Other [facility] Other 01-04-2022 12:15-0400 Respiratory rate 18 /min Maribeth Carolann Other [facility] Other 01-04-2022 12:15-0400 SaO2% (BldA) [Mass fraction] 98 % Maribeth Vuong Other [facility] Other 01-04-2022 12:15-0400 Systolic blood pressure 136 mm[Hg] Maribeth Carolann Other [facility] Other 06-22-2021 10:00-0400 Body height 177.8 cm Maribeth Carolann Other [facility] Other 06-22-2021 10:00-0400 Body mass index (BMI) [Ratio] 34.16 kg/m2 Maribeth Carolann Other [facility] Other 06-22-2021 10:00-0400 Body weight 108 kg Maribeth Carolann Other [facility] Other 06-22-2021 10:00-0400 Diastolic blood pressure 78 mm[Hg] Maribeth Vuong Other [facility] Other 06-22-2021 10:00-0400 Respiratory rate 18 /min Maribeth Carolann Other [facility] Other 06-22-2021 10:00-0400 SaO2% (BldA) [Mass fraction] 95 % Maribeth Carolann Other [facility] Other 06-22-2021 10:00-0400 Systolic blood pressure 118 mm[Hg] Maribeth Vuong Other [facility] Other 03-08-2021 12:15-0500 Body height 177.8 cm Charles Solares Other [facility] Other 03-08-2021 12:15-0500 Body mass index (BMI) [Ratio] 33.72 kg/m2 Charles Solares Other [facility] Other 03-08-2021 12:15-0500 Body weight 106.6 kg Charles Solares Other [facility] Other 02-12-2021 11:00-0500 Body height 177.8 cm Maribeth Vuong Other [facility] Other 02-12-2021 11:00-0500 Body mass index (BMI) [Ratio] 33.37 kg/m2 Maribeth Vuong Other [facility] Other 02-12-2021 11:00-0500 Body temperature 98.3 [degF] Maribeth Vuong Other [facility] Other 02-12-2021 11:00-0500 Body weight 105.51 kg Maribeth Vuong Other [facility] Other 02-12-2021 11:00-0500 Diastolic blood pressure 88 mm[Hg] Maribeth Vuong Other [facility] Other 02-12-2021 11:00-0500 Respiratory rate 18 /min Maribeth Vuong Other [facility] Other 02-12-2021 11:00-0500 SaO2% (BldA) [Mass fraction] 99 % Maribeth Vuong Other [facility] Other 02-12-2021 11:00-0500 Systolic blood pressure 134 mm[Hg] Maribeth Vuong Other [facility] Other 02-01-2021 11:45-0400 Body height 177.8 cm Maribeth Vuong Other [facility] Other 02-01-2021 11:45-0400 Body mass index (BMI) [Ratio] 35.48 kg/m2 Maribeth Woodymer Other [facility] Other 02-01-2021 11:45-0400 Body temperature 98.2 [degF] Maribeth Woodymer Other [facility] Other 02-01-2021 11:45-0400 Body weight 112.18 kg Maribeth Woodymer Other [facility] Other 02-01-2021 11:45-0400 Diastolic blood pressure 86 mm[Hg] Maribeth Carolann Other [facility] Other 02-01-2021 11:45-0400 Respiratory rate 18 /min Maribeth Carolann Other [facility] Other 02-01-2021 11:45-0400 SaO2% (BldA) [Mass fraction] 97 % Maribeth Woodymer Other [facility] Other 02-01-2021 11:45-0400 Systolic blood pressure 136 mm[Hg] Maribeth Carolann Other [facility] Other Encounters Encounter Date Encounter Type Care Provider Facility Start: 03-13-2023 End: 03-13-2023 ambulatory Maribeth Woodymer Other [facility] Other Start: 03-13-2023 Telephone encounter [facility] Start: 02-05-2023 End: 02-05-2023 ambulatory Maribeth Vuong Other [facility] Other Start: 02-05-2023 Telephone encounter Maribeth [facility] Start: 01-17-2023 End: 01-17-2023 ambulatory Maribeth Vuong Other [facility] Other Start: 01-17-2023 Encounter for genera l adult medical examination without abnormal findings Maribeth Vuong [facility] Start: 01-17-2023 Periodic preventive med est patient 40-64yrs Maribeth Vuogn [facility] Start: 12-18-2022 (Procedure) Short Maribeth Vuong [facility] [place] Start: 12-18-2022 End: 12-18-2022 ambulatory Maribeth Vuong Other [facility] Other Start: 12-12-2022 End: 12-12-2022 ambulatory Maribeth Vuong Other [facility] Other Start: 12-12-2022 Office outpatient visit 15 minutes Maribeth Carolann [facility] [place] Start: 12-05-2022 End: 12-05-2022 ambulatory Maribeth Vuong Other [facility] Other Start: 12-05-2022 Telephone encounter Mariebth Carolann [facility] Start: 09-28-2022 End: 09-28-2022 ambulatory Nash Cardenas Other [facility] Other Start: 09-28-2022 Telephone encounter Nash Carden[facility] Start: 09-26-2022 End: 09-26-2022 ambulatory Nash Cardenas Facility:[facility] Start: 09-26-2022 End: 09-26-2022 Admission to same day surgery center DO Maribeth Vuong Work Phone: [facility] Work Phone: Start: 09-26-2022 End: 09-26-2022 ambulatory DO Maribeth Vuogn Work Phone: [facility] Work Phone: Start: 09-11-2022 (Procedure) Short Maribeth Vuong [facility] [place] Start: 09-11-2022 End: 09-11-2022 ambulatory Maribeth Vuong Other [facility] Other Start: 09-10-2022 End: 09-10-2022 ambulatory Maribeth Vuong Other [facility] Other Start: 09-10-2022 Telephone encounter Maribeth [facility]cer [facility] [place] Start: 09-03-2022 End: 09-03-2022 ambulatory NARENDRANATH LAKSHMIPATHY . Facility:[facility] Start: 08-20-2022 End: 08-20-2022 ambulatory Maribeth Vuong Facility:[facility] Start: 08-20-2022 End: 08-20-2022 ambulatory DO Maribeth Vuong Work Phone: [facility] Work Phone: Start: 08-20-2022 End: 08-20-2022 Patient encounter procedure DO Maribeth Vuong Work Phone: [facility] [address] Start: 08-16-2022 End: 08-17-2022 ambulatory NARENDRANATH LAKSHMIPATHY . Facility:[facility] Start: 08-02-2022 End: 08-02-2022 ambulatory Maribeth Vuong Other [facility] Other Start: 08-02-2022 Telephone encounter Maribeth Mercer [facility] [place] Start: 07-30-2022 End: 07-30-2022 ambulatory NARENDRANATH LAKSHMIPATHY . Facility:[facility] Start: 07-24-2022 End: 07-24-2022 ambulatory Igor Orr Other [facility] Other Start: 07-24-2022 Office outpatient ne w 30 minutes Igor Orr [facility] Start: 07-23-2022 End: 07-24-2022 ambulatory NARENDRANATH LAKSHMIPATHY . Facility:[facility] Start: 07-16-2022 End: 07-16-2022 ambulatory Maribeth Vuong Other [facility] [employer] Other Start: 07-16-2022 Telephone encounter Maribeth [facility] [place] Start: 07-15-2022 Office outpatient visit 25 minutes Maribethwaldo Vuong [facility] Start: 07-15-2022 Telephone encounter Maribeth [facility] [place] Start: 07-15-2022 End: 07-15-2022 ambulatory DO Maribeth Vuong Work Phone: [facility] [employer] Other Start: 07-15-2022 End: 07-15-2022 Patient encounter procedure DO Maribeth Vuong Work Phone: [facility] Start: 07-12-2022 End: 07-12-2022 ambulatory Maribeth Teri Carolann Facility:[facility] Start: 07-12-2022 Encounter for genera l adult medical examination without abnormal findings Maribeth Teri Vuong [facility] Start: 07-12-2022 End: 07-12-2022 ambulatory DO Maribeth Vuong Work Phone: [facility] Work Phone: Start: 07-12-2022 End: 07-12-2022 Patient encounter procedure DO Maribeth Vuong Work Phone: [facility] [place] Work Phone: Start: 07-02-2022 End: 07-03-2022 ambulatory [...] 01-04-2022 End: 01-04-2022 ambulatory Maribeth Carolann Other [facility] Other Start: 01-04-2022 Encounter for genera l adult medical examination without abnormal findings Maribeth Vuong [facility] [place] Start: 01-04-2022 Periodic preventive med est patient 40-64yrs Maribeth Vuong [facility] Start: 12-13-2021 End: 12-14-[address] JESSICA JOEL . Facility:[facility] Start: 10-31-2021 End: 11-01-[address] JESSICA JOEL . Facility:[facility] Start: 10-03-2021 End: 10-04-2021 ambulatory BRIT SCHUSTER . Facility:[facility] Start: 09-29-2021 End: 09-29-2021 ambulatory MARIBETH VUONG Facility:[facility] Start: 08-17-2021 End: 08-17-2021 ambulatory Charles Solares Other [facility] Other Start: 08-17-2021 Telephone encounter [facility] [place] Start: 08-07-2021 End: 08-07-2021 ambulatory Charles Solares Other [facility] Other Start: 08-07-2021 Telephone encounter [facility] Start: 07-13-2021 End: 07-13-2021 ambulatory Maribeth Vuong Other [facility] Other Start: 07-13-2021 Telephone encounter Maribeth [facility] [place] Start: 07-09-2021 End: 07-09-2021 ambulatory Charles Hernandezer Other [facility] Other Start: 07-09-2021 Office outpatient visit 25 minutes Charles Hernandezer [facility] [place] Start: 06-22-2021 End: 06-22-2021 ambulatory Maribeth Vuong Other [facility] Other Start: 06-22-2021 Office outpatient visit 15 minutes Maribeth Vuong [facility] [place] Start: 06-06-2021 End: 06-06-2021 ambulatory Charles Hernandezer Other [facility] Other Start: 06-06-2021 Office outpatient visit 25 minutes Charles Davider [facility] [place] Start: 05-29-2021 End: 05-29-2021 ambulatory Maribeth Vuong Other [facility] Other Start: 05-29-2021 Telephone encounter Maribeth [facility] [place] Start: 05-22-2021 End: 05-22-2021 ambulatory Maribeth Vuong Other [facility] Other Start: 05-22-2021 Telephone encounter Maribeth [facility] Start: 05-21-2021 End: 05-21-2021 ambulatory Maribeth Vuong Other [facility] Other Start: 05-21-2021 Telephone encounter Maribeth [facility] [place] Start: 05-08-2021 End: 05-08-2021 ambulatory Charles Hernandezer Other [facility] Other Start: 05-08-2021 Office outpatient visit 25 minutes Charles Felter [facility] [place] Start: 04-12-2021 End: 04-12-2021 ambulatory Charles Felter Other [facility] Other Start: 04-12-2021 Office outpatient visit 25 minutes Charles Hernandezer [facility] [place] Start: 03-08-2021 End: 03-08-2021 ambulatory Charles Solares Other [facility] Other Start: 03-08-2021 Office outpatient visit 25 minutes Charles Hernandezer [facility] [place] Start: 02-28-2021 End: 02-28-2021 ambulatory Maribeth Carolann Other [facility] Other Start: 02-28-2021 Telephone encounter [facility] Start: 02-12-2021 End: 02-12-2021 ambulatory Maribeth Vuong Other [facility] Other Start: 02-12-2021 Office outpatient visit 15 minutes Maribeth Vuong [facility] [place] Start: 02-05-2021 Office outpatient visit 25 minutes Charles Hernandezer [facility] [place] Start: 02-01-2021 Office outpatient visit 15 minutes Maribeth Vuong [facility] Start: 01-08-2021 Office outpatient visit 25 minutes Charles Felter [facility] [place] Start: 06-09-2018 End: 06-10-2018 Patient encounter procedure [facility] Start: 04-01-2018 End: 04-01-2018 Emergency department patient visit Lashay Li Facility:[facility] Procedures Date Procedure Procedure Detail Performing Clinician Start: 09-26-2022 Colonoscopy DO Maribeth Vuong Work Phone: Start: 07-15-2022 Diagnostic radiograp hy of abdomen DO Maribeth Vuong Work Phone: Plan of Treatment Date Care Activity Detail Author Start: 09-26-2022 [facility] Patient Education Hemorrhoids (DC) [facility] Work Phone: Immunizations Immunization Date Immunization Notes Care Provider Macrina brunson 12-07-2020 COVID-19 Vaccine Corey - Documentation Purposes Only Charles Solares Other [facility] Other 03-25-2019 Depo-Medrol 80 mg Charles lewis Other [facility] Other 12-11-2017 Kenalog -40 mg Charles Solares Other [facility] Other Payers Date Payer Category Payer Self-pay [id number] 1979 Unknown [id number] 2.16.84 0.1.837512.3.579.2.727 1979 Unknown [id number] 2.16.84 0.1.914591.3.579.2.593 1979 Unknown [id number] 2.16.84 0.1.827044.3.579.2.593 1979 Unknown [id number] 2.16.84 0.1.730209.3.579.2.593 1979 Unknown [id number] 2.16.84 0.1.778272.3.579.2.593 1979 Unknown [id number] 2.16.84 0.1.186652.3.579.2.593 1979 Unknown [id number] 2.16.84 0.1.164016.3.579.2.593 1979 Unknown [id number] 2.16.84 0.1.285560.3.579.2.593 1979 Unknown [id number] 2.16.84 0.1.890369.3.579.2.593 1979 Unknown [id number] 2.16.84 0.1.991260.3.579.2.593 1979 Unknown [id number] 2.16.84 0.1.064895.3.579.2.593 1979 Unknown [id number] 2.16.84 0.1.748737.3.579.2.593 1979 Unknown [id number] 2.16.84 0.1.439649.3.579.2.593 1979 Unknown [id number] 2.16.84 0.1.964093.3.579.2.593 1979 Unknown [id number] 2.16.84 0.1.483401.3.579.2.593 1979 Unknown [id number] 2.16.84 0.1.657803.3.579.2.593 1979 Unknown [id number] 2.16.84 0.1.135227.3.579.2.593 1960 Medicaid [id number] 1960 Unknown [id number] 1959 Unknown [id number] Blue Cross Blue Shield [id number] Unknown [facility] [id number] Unknown [id number] 2.16.8 40.1.956030.3.579.2.531 Unknown [id number] .16.8 40.1.186733.3.579.2.531 Unknown [id number] 2.16.8 40.1.924374.3.579.2.531 Unknown [id number] .16.8 40.1.453334.3.579.2.531 Social History Date Type Detail Facility Unknown if ever smoked [facility] Other Sex Assigned At Sex Assigned At Bir th [facility] Other Start: 04-13-2019 Tobacco smoking status NHIS Smoker (finding) [facility] Start: 1980 Sex Assigned At Male [facility] Start: 09-26-2022 Tobacco smoking status NHIS Current some day smoker [facility] Goals Date Patient Goal Desired Activity /State Clinical Notes 01-08-2021 to 03-13-2023 Note Date & Type Note Facility 03-13-2023 Evaluation note Encounter Date Diagnosis Assessment Notes Mar, Primary osteoarthritis of both first carpometacarpal joints (ICD-10 - M18.0) [facility] Other 11-01-2023 Evaluation note* Encounter Date Diagnosis Assessment Notes Treatment Notes Treatment Clinical Notes Feb, Primary hypertension (ICD-10 - I10) [facility] Other 10-13-2023 Evaluation note* Encounter Date Diagnosis [...] Jan, Medication monitoring encounter (ICD-10 - Z51.81) [facility] Other 09-13-2023 Evaluation note* Encounter Date Diagnosis Assessment Notes Treatment Notes Treatment Clinical Notes Dec, Primary osteoarthrit is of first carpometacarpal joint of left hand (ICD-10 - M18.12) [facility] Other 09-07-2023 Evaluation note* Encounter Date Diagnosis [...] he has any issues with the medicine. [facility] Other 06-22-2023 Procedure [facility]06-07-2023 Evaluation note* Encounter Date Diagnosis Assessment Notes Treatment Notes Treatment Clinical Notes Sep, Primary osteoarthrit is of both first carpometacarpal joints (ICD-10 - M18.0) [facility] Other 04-19-2023 Evaluation note* Encounter Date Diagnosis [...] colonoscopy to rule out luminal etiologies made [facility] Other 04-18-2023 NoteCONSULTATION CONSULTATION DATE: 07/23/2022 TO: [...] our patients to inform us about any prhj-zyk-xghrjin medications or herbal remedies/nutritional supplements/alternative remedies. 2. [...] treatment options with their primary care provider.[id number] Evaluation note * Encounter Date Diagnosis Assessment Notes Treatment Notes Treatment Clinical Notes Jul, Generalized abdominal pain (ICD-10 - R10.84) [facility] Other 04-10-2023 Evaluation note* Encounter Date Diagnosis [...] Jul, Medication monitoring encounter (ICD-10 - Z51.81) [facility] Other 04-10-2023 Evaluation note* Encounter Date Diagnosis Assessment Notes Treatment Notes Treatment Clinical Notes Jul, Slow transit constipation (ICD-10 - K59.01) [facility] Other 03-28-2023 NoteCONSULTATION CONSULTATION DATE: 07/02/2022 TO: [...] as well as his lumbar spine films.[facility] [id number] Note CONSULTATION CONSULTATION DATE: 06/13/2022 HISTORY OF [...] relief. He has been seen both at [place] and [facility] in the past, and received [...] under the care of Dr. Joshua in [place]. He is unwilling to try Lyrica due [...] Patient is in agreement to this plan.[facility] [id number] NoteCONSULTATION CONSULTATION DATE: 03/14/2022 HISTORY OF PRESENT [...] in three months' time, unless otherwise indicated.[facility] [id number] NoteCONSULTATION CONSULTATION DATE: 02/07/2022 HISTORY OF PRESENT [...] followed up in the office post procedure.[facility] [id number] Evaluation note* Encounter Date Diagnosis Assessment Notes [...] Dec, Prostate cancer screening (ICD-10 - Z12.5) [facility] Other 09-08-2022 NoteCONSULTATION CONSULTATION DATE: 12/13/2021 HISTORY [...] of care and all questions were answered.[facility] [id number] Note CONSULTATION PROCEDURE DATE: 10/31/2021 PREOPERATIVE DIAGNOSIS: [...] will be followed up in the office.[id number] Note CONSULTATION CONSULTATION DATE: 10/03/2021 This is [...] and will be seen in the clinic. [facility] Signed and Approved by: BRIT SCHUSTER . 10/11/2021 16:28:00[facility]04-04-2022 Evaluation note* Encounter Date Diagnosis Assessment Notes [...] in this. Patient notes prior issues with [facility] billing department and states he is [...] note writ ten by Km Cervantes MA, Jd Edwards Developer. Edited and approved by Dr. Charles Solares MD. [facility] Other 03-18-2022 Evaluation note* Encounter Date Diagnosis [...] and he is to continue with it. [facility] Other 03-02-2022 Evaluation note* Encounter Date Diagnosis [...] note writ ten by Km Cervantes CMA, Jd Edwards Developer. Edited and approved by Dr. Charles Solares MD. [facility] Other 02-15-2022 Evaluation note* Encounter Date Diagnosis Assessment Notes Treatment Notes Treatment Clinical Notes May, Cigarette nicotine dependence without complication (ICD-10 - F17.210) [facility] Other 02-14-2022 Evaluation note* Encounter Date Diagnosis Assessment Notes Treatment Notes Treatment Clinical Notes May, Other spondylosis with radiculopathy, lumbar region (ICD-10 - M47.26) [facility] Other 02-01-2022 Evaluation note* Encounter Date Diagnosis [...] was refilled today. Saliva sample performed through [facility] today, will await confirmatory results. Opiod contract updated at this time. May, Other chronic pain (ICD-10 - G89.29) May, Other Above note writ ten by Sonya Dawson LPN, Jd Edwards Developer. Edited and approved by Dr. Charles Solares MD. [facility] Other 01-06-2022 Evaluation note* Encounter Date Diagnosis [...] note writ ten by Km Cervantes CMA, Jd Edwards Developer. Edited and approved by Dr. Charles Solares MD. [place] [facility] Other 12-02-2021 Evaluation note* Encounter Date Diagnosis [...] Above note written by Sonya Dawson LPN, Jd Edwards Developer. Edited and approved by Dr. Charles Solarse MD. [facility] Other 11-08-2021 Evaluation note* Encounter Date Diagnosis [...] Patient voiced understanding agrees with this plan. [facility] Other 11-01-2021 Evaluation note* Encounter Date Diagnosis [...] note writ ten by Donita Henson CMA, Jd Edwards Developer. Edited and approved by Dr. Charles Solares MD. [facility] Other 10-28-2021 Evaluation note* Encounter Date Diagnosis [...] message to Dr. Solares passing this along. [facility] Other 10-04-2021 Evaluation note* Encounter Date Diagnosis [...] educated regarding the risks and benefits of custodial opioid use. He understands the associated risks with this medication and agrees that it provides reasonable benefit in regards to his pain control and level of function. Oxycodone Acetaminophen was refilled today. Jan, Other chronic pain (ICD-10 - G89.29) [facility] Other Evaluation noteNo InformationNort [facility] Other Evaluation noteNo assessment information available [facility] Work Phone: History and physical note Author Nash Cardenas [facility] September 26, 2022 9:39am Note Date/Time September 26, 2022 9:39 am [facility] [address] [place] [address] Gastroenterology H&P Signed Patient: Neal Irene MR#: [id number] : 1980 Acct:[id number] Age/Sex: 41 / M Adm Date: 3 Loc: Room: Type: [facility] Attending Dr: Nash Cardenas MD Copies [...] signed by Nash Cardenas MD> 09/26/22 0939 [facility] Work Phone: History general Narrative - Reported* Type Description Date Medical History Hx spinal fusion Medical History Lumbar radiculopathy Medical History Trigger point Surgical History L5 S1 fusion 2014 Surgical History Left lower leg surgery (multipl e fractures) Surgical History foreign body excision right mid dle finger Hospitalization History pneumonia as child [facility] Other History general Narrative - Reported* Type Description Date Medical History Hx spinal fusion Medical History Lumbar radiculopathy Medical History Trigger point Surgical History L5 S1 fusion 2014 Surgical History Left lower leg surgery (multipl e fractures) Surgical History foreign body excision right mid dle finger Surgical History lumbar facet nerve b lock injection - Dr. Saldivar in [facility] 11/2022 Hospitalization History pneumonia as [facility] Other History general Narrative - Reported* Type Description Date Medical History Hx spinal fusion Medical History Lumbar radiculopathy Medical History Trigger point Surgical History L5 S1 fusion 2014 Surgical History Left lower leg surgery (multipl e fractures) Surgical History foreign body excision right mid dle finger Surgical History lumbar facet nerve b lock injection - Dr. Saldivar in [facility] 11/2022 Surgical History R side nerve ablation 01/2023 Hospitalization History pneumonia as child [facility] Other Hospital Discharge instructions Additional Instructions DISCHARGE [...] years. -Follow up with PCP. -Office number [phone].[facility] Work Phone: reason for visit NarrativePatient here at the request of Dr. Vuong for evaluation & treatment of abdominal pain, change in bowel habits, weight loss, rectal bleeding.[facility] Other Reason for visit NarrativeProcedure appt and DNR-A [employer] Other Summary Purpose Family History Relationship Condition Age at Onset Recorded Date/T lorri brother Gout Unknown Relationship Condition Age at Onset Recorded Date/T lorri brother Gout Unknown Diabetes mellitus Unknown Advance Directives Advance Directive Response Recorded Date/ Time Advance Directives No December 4:24pm Reason for Referral Reason Dr. Villanueva to [facility] er surgical options, steroid injections not providing long lasting benefit Diagnosis 1 Primary osteoarthrit is of both first carpometacarpal joints (M18.0) Referral Organization [facility] Family [employer] Tom Referring Provider First Name Maribeth Referring Provider Last Name Carolann Referring Provider Specialty Family Prac patito Referred Organization [facility] Ortho pedics Referred Address [address] [place], [place],[address] Referred Provider Specialty ORTHOPEDIC S URGEON Referral Priority Routine Reason * Waiting for appt CT and KUB normal, generalized pain of unclear etiology Diagnosis 1 Generalized abdomina l pain (R10.84) Referral Organization [facility] Family Nisha Santos Referring Provider First Name Maribeth Referring Provider Last Name Carolann Referring Provider Specialty Family Prac patito Referred Organization [facility] Gastroenterolo gy Referred Provider Dwayne Salas Referred Address [address] [facility] [address] ,[place], [place],[address] Referred Provider Specialty Gastroentero logy Referral Priority [...] continuous use of opioids (F11.90) Referral Organization [facility] Family Medicin e Tom Referring Provider First Name Maribeth Referring Provider Last Name Carolann Referring Provider Specialty Family Prac patito Referred Organization [facility] Referred Address [address] Referred Provider Specialty Pain Medicin e Referral Priority Routine General Notes Rebeca Vivar 11:08:53 AM >referral received and faxed Clinical Notes P- [phone]- Chief Complaint and Reason for Visit Chief [...] section and content) DATE CREATED AUTHOR 05/25/2018 [facility] DATE CREATED AUTHOR AUTHOR'S ORGANIZ ATION 06/11/2018 [facility] DATE CREATED AUTHOR AUTHOR'S ORGANIZ ATION 09/15/2022 [facility] DATE CREATED AUTHOR AUTHOR'S ORGANIZ ATION 10/04/2022 [facility] REASON FOR VISIT (unrecogniz ed section and content) 1 MOback pain getting worse, pain management not working4 WK RECHECKDISCUSS DISABILITY OPTIONSLab results1 MO1 MONTH RECHECKCHANTIX1 month Follow upscript requestpaperwork1 MONTH FOLLOW UPCHANTIX refill/discuss back concerns1 MONTHNo InformationNo InformationPROCEDURE NOTES1 year Follow up/ AWVAbdominal Pain/ incontinencenew medication.ReferralPain ManagementB/L thumb steroid inj./ sign DNR-AORDERS PER DR Han bpelevated BP at PM in [place], no sxinjection L thumb1 year Follow upLosartan/HCTZsteroid [...] BE BASED ON THE PRIMARY CLINICAL RECORDS. [facility]. provides no warranty or guarantee of the accuracy or completeness of information in this document.
[2023-05-27 09:35] VITALS: BP 134/90; PULSE 100; RESP 16; TEMP 36.9; O2SAT 97
[2023-05-27 10:20] VITALS: BP 138/102; PULSE 100; RESP 18; O2SAT 97
[2023-05-27 10:24] VITALS: BP 151/95; PULSE 98; RESP 18; O2SAT 95
[2023-05-27] MEDS: BUPIVACAINE HCL 0.25% PF 25 MG/10 ML VIAL 5 ML INJ (10:28)
--- NOTE | 2023-05-27 10:59 | P.ON_ITS ---
Date of procedure: 05/27/23 Pre-op diagnosis: Thoracic spondylosis Post-op diagnosis: same as pre-op Procedure: Bilateral Thoracic 4/5, 5/6 medial branch block Under fluoroscopic guidance Solution injected: 2millilitersMarcaine 0.25% Anesthesia :none Immediate complications none Time out process compliant After informed consent obtained from the patient placed in the Prone proposition . area was prepped and draped in a sterile fashion using Cloraprep .25 gauge spinal needle inserted over each of the above mentioned target areas . [place] were directed towards the target under fluoroscopic guidance . after encountering each of the targets , no indication of intravascular intraneuronal or intrathecal needle tip placement. Then 0 .5 to 1 Milliliter was injected at each level. [place] removed postoperatively. patient transferred to recovery in stable condition to be discharged home after meeting criteria Anesthesia: Local Surgeon: Mindy Manning Condition: stable
== END 2023-05-27 10:31 | disposition home or self-care (01) ==
LOC: SURGOUT 08:56
PROVIDERS: Visit Provider Anesthesiology Pain Medicine
DX: M47.814 Spondylosis without myelopathy or radiculopathy, thoracic region (principal)
CPT/HCPCS: 64490; 64491; J0665

== ENCOUNTER 2023-06-04 08:54 | Outpatient (OUT) | payer OTHER, SELFPAY ==
--- NOTE | 2023-06-04 09:27 | P.CN_ITS ---
Consult Note: HPI Data of Consult Patient: known to practice within the last 3 years Requesting Physician: Brianna Wallace NP Primary Care Provider: MARIBETH VUONG Consult Narrative Reason for consult: f/u Narrative: Pedro Pablo Irene a pleasant 42 year old male presents for evaluation and management of chronic back pain. Patients main complaint is middle back rating pain 7/10. Patient reports continued pain in low back and numbness tingling weakness of bilateral legs, no falls since last visit, continues to utilize rollator. Patient reports significant improvement >90% hours after bilateral T4-5 T5-6 MBB #1, would like to proceed with #2 working towards RFA. cc:: CC: Brianna Wallace NP Review of Systems ROS Status of ROS 10 or more systems reviewed and unremark able except as noted in history and below Musculoskeletal Reports: back pain PFSH PFSH Medical History Fracture of left lower leg ?S82.92XA - Unspecified fracture of left lower leg, initial encounter for closed fracture (ICD-10) Upper back pain ?M54.9 - Dorsalgia, unspecified (ICD-10) Neck pain ?M54.2 - Cervicalgia (ICD-10) Low back pain ?M54.50 - Low back pain, unspecified (ICD-10) Former smoker ?Z87.891 - Personal history of nicotine dependence (ICD-10) Surgical History S/P lumbar spine operation ?Z98.890 - Other specified postprocedural states (ICD-10) Meds Home Medications and Allergies Home Medications Medication Instructions Recorded Confirmed Type acetaminophen 500 mg tablet 1,000 mg PO Q6H 09/13/22 05/27/23 History (Tylenol Extra Strength) diphenhydramine HCl 25 mg tablet 50 mg PO DAILY 09/13/22 05/27/23 History (Allergy (diphenhydramine)) meloxicam 15 mg tablet 15 mg PO DAILY 09/13/22 05/27/23 History losartan 50 mg-hydrochlorothiazide tab 01/07/23 History 12.5 mg tablet cyclobenzaprine 10 mg tablet 10 mg PO TID PRN muscle spasm #80 01/22/23 05/27/23 Rx tabs Allergies Allergy/AdvReac Type Severity Reaction Status Date / Time gabapentin AdvReac Severe Dizziness Verified 01/07/23 08:07 zonisamide [From [facility]] AdvReac Intermediate Nausea Verified 01/07/23 08:07 Exam Constitutional Documenting provider has reviewed patient's vital signs: yes Common normals: no apparent distress, oriented x3, healthy appearing, alert and well nourished General appearance: cooperative HENMT Common normals: normocephalic, hearing grossly normal bilaterally and moist oral mucous membranes Head and scalp: normocephalic Eye Common normals: PERRL Pupil: PERRL Neck & C-Spine Common normals: full ROM General: normal visual inspection Chest Common normals: inspection of chest normal Respiratory Common normals: normal respiratory effort, no retractions and no use of accessory muscles Back & Pelvis Thoracic spine/upper back: ROM limited and pain with ROM Lumbar spine/lower back: ROM limited, pain with ROM and straight leg raise negative bilaterally Sacroiliac joints: SI joints normal Extremity Common normals: normal to inspection and full ROM Neuro Common normals: oriented x3, CN's II-XII intact bilaterally, moves all extremities, no focal motor deficits, no sensory deficits noted and deep tendon reflexes 2+ bilaterally Sensorium/orientation: alert Motor exam: strength 5/5 throughout and no movement abnormalities noted Psych Common normals: mental status grossly normal, thought process normal, cooperati ve, affect normal, speech normal and activity/motor behavior normal Speech: normal speech Thought process: normal thought process Results Additional Findings Additional findings: I have checked an OARRS report on this patient today and there are no aberrancies noted in the prescribing history.?? A drug screen was completed and reviewed within the last year, and if there has not been a drug screen completed we ordered one today to monitor higher risk, state monitored pain medication use. As part of providing excellent, safe, comprehensive care, the following was completed at our patient's visit: 1. A medication reconciliation and review to ensure accurate knowledge of current/active medications, including asking our patients to inform us about any [id number] medications or herbal remedies/nutritional supplements/alternative remedies. 2. A review to specifically ensure our patients have had annual screening for: elevated body mass index (BMI), tobacco use, screening for depression, and screening for unhealthy alcohol use. When screening is concerning, patients are provided with education and the specific recommendation to discuss the concerning health issue and treatment options with their primary care provider. Assessment and Plan Assessment and Plan (1) Thoracic spondylosis: (2) Lumbar stenosis with neurogenic claudication: (3) Lumbar radiculopathy: (4) Status post lumbar spinal fusion: (5) Muscle spasm: (6) Lumbar spondylosis: (7) Marijuana use: Assessment and Plan: patient admitted to maijuana use at last appointment, has failed UDS in the past and been warned. continue NNCP (8) Obesity: Assessment and Plan: The patient was counseled that proper dietary changes and consistent participation in a home exercise plan can lead to weight loss. Weight loss can help to improve functionality in patients with chronic pain.? Plan bilateral T4-5 T5-6 facet medial branch blocks #2 working towards thermal RFA defer on lumbar TREV, pt not interested at this time continue current medication regimen, patient is finding benefit to lyrica 50mg HS continue NNCP due to previous failed UDS and use of marijuana while on opioids through our office. 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 f/u 1 week after injection
== END 2023-06-04 08:55 | disposition home or self-care (01) ==
PROVIDERS: Visit Provider Nurse Practitioner
DX: M47.814 Spondylosis without myelopathy or radiculopathy, thoracic region (principal); M48.062 Spinal stenosis, lumbar region with neurogenic claudication; M54.16 Radiculopathy, lumbar region; Z98.890 Other specified postprocedural states; M62.838 Other muscle spasm; M47.816 Spondylosis without myelopathy or radiculopathy, lumbar region; Z79.899 Other long term (current) drug therapy; E66.9 Obesity, unspecified
CPT/HCPCS: G0463

== ENCOUNTER 2023-07-08 07:10 | Day surgery (SDC) | payer OTHER, SELFPAY ==
--- OUTSIDE RECORDS SUMMARY | 2023-07-08 07:13 | XMS_ITS | CCD ---
Author Organization [facility] Care Team Providers Care Commercial Construction Superintendent Name Role Phone Lashay Li Admitting Unavailable Lashay Li Attending Unavailable RENE MORRELL Primary Care Unavailable PHI RENE Attending Unavaila Charles Cohen Unavailable Carolann, Maribeth Unavailable Carolann, Maribeth Unavailable Carolann, Maribeth Unavailable Carolann, DO Maribeth Williamson Primary Care Provider Carolann, DO Maribeth Williamson Attending Provider Igor Orr Unavailable CAROLANN, MARIBETH Primary Care Unavailable LEANDER LAFLEUR Consulting Unavailable LEANDER LAFLEUR Attending Unavailable LEANDER LAFLEUR Admitting Unavailable EVANGELIST LEOS Consulting Unavailable CAROLANN, MARIBETH Primary Care Unavailable TONO ., DR ARMENTA Consulting Unavailable HAY ., DR ARMENTA Attending Unavailable HAY ., DR ARMENTA Admitting Unavailable WISAM ., DR JESSICA Huerta Attending Unavailable CAROLANN, MARIBETH Primary Care Unavailable SCHUSTER ., BRIT Consulting Unavailable JOEL ., DR JESSICA Huerta Admitting Unavailable JOEL ., DR JESSICA Huerta Consulting Unavailable JOEL ., DR JESSICA Huerta [...] Admitting Unavailable SCHUSTER ., BRIT Consulting Unavailable LAKSHMIPATHY ., NARENDRANATH Attending Jessy vailable LAKSHMIARNEL ., NARENDJOAQUINATH Admitting Jessy vailable CAROLANN, MARIBETH Primary Care Unavailable JESÚS, DR DAMARIS Deras Consulting Unavailable LAKSHMIPATHY ., NARENDRANATH Consulting Jessy vailable SCHUSTER ., BRIT Attending Unavailable SCHUSTER ., BRIT Admitting Unavailable CAROLANN, MARIBETH Primary Care Unavailable LEONIDAS, DR RENE Velasco Consulting Unavailable ZIEBER, DR DAMARIS eDras Consulting Unavailable SCHUSTER ., BRIT Consulting Unavailable [...] BRIT Consulting Unavailable CAROLANN, MARIBETH Consulting Unavailable SCHUTSER ., BRIT Consulting Unavailable CAROLANN, MARIBETH Primary Care Unavailable SCHUSTER ., BRIT Admitting Unavailable SCHUSTER ., BRIT Attending Unavailable CAROLANN, MARIBETH Consulting Unavailable JOEL ., DR JESSICA Huerta Attending Unavailable CAROLANN, MARIBETH Primary Care Unavailable JOEL ., DR JESSICA Huerta Admitting Unavailable SCHUSTER ., BRIT Consulting Unavailable CAROLANN, MARIBETH Consulting Unavailable MD Nash Cardenas Attending Provider [phone] Nash Cardenas Unavailable Carolann, Maribeth N Attending Unavailable Maribeth Villafana N Admitting Unavailable Maribeth Villafana N Primary Care Unavailable Maribeth Villafana N Attending Unavailable Carolann, Maribeth N Admitting Unavailable Carolann, Maribeth N Primary Care Unavailable Carolann, Maribeth N Attending Unavailable Maribeth Villafana N Admitting Unavailable Maribeth Villafana N Primary Care Unavailable Nash Cardenas Admitting Unavailable Nash Cardenas Attending Unavailable Maribeth Villafana N Primary Care Unavailable Allergies Allergy Classification Reported Allergen(s) Allergy Type Date of Onset Reaction(s) Facility (15 sources) gabapentin Drug Allergy 3 dizziness, sleepy, Drowsy [facility] (1 source) gabapentin Drug Allergy [facility] Repository (9 sources) zonisamide Drug Allergy 3 diarrhea [facility] (1 source) gabapentin Drug Allergy 3 [facility] Repository (1 source) zonisamide Drug Allergy 3 [facility] Repository Medications Current Medications Medication [...] Start: 06-06-2021 take 1 tablet by elizabeth th twice daily as needed Cyclobenzaprine HCl 10 MG 1 tablet as needed Orally up to twice daily as needed for 30 day(s) Jun, Active Start: 12-17-2016 End: 01-29-2019 take 1 tablet by mouth twice daily Cyclobenzaprine Discontinued 1 TAB PO Twice daily December 17, 2016 12:00am January 29, 2019 7:38am take 1 tablet by elizabeth th every twenty-four hours Cyclobenzaprine HCl 10 MG 1 tablet at bedtime as needed Orally Once a day Active take 1 tablet by elizabeth th three times daily as needed Cyclobenzaprine HCl [...] day Active take 1 tablet by elizabeth th every twelve hours Diclofenac Sodium 75 MG [...] day(s) Jun, Active take 1 capsule by [facility] every twenty-four hours Cymbalta 60 MG [...] Active Start: 12-12-2022 take 1 tablet by [facility] once daily Losartan Potassium-HCTZ 50-12.5 MG [...] Once a day Active polyethylene glycol 3350 [id number] mg / potassium chloride 2970 mg / sodium bicarbonate 6740 mg / sodium chloride 5860 mg / sodium sulfate 04998 mg powder for oral solution (6 sources) [...] for 7 days PRN Feb, Active sennosides, [facility] 8.6 mg oral tablet (16 sources) Start: [...] 07-12-2022 Episodic Other aftercare (1 source) Other fdc (current) drug therapy; Translations: [OTH SYSTEMS SPEC CURRENT DRUG THERAPY] Onset: 07-17-2022 Episodic Other [...] Amylase [Catalytic activity/Vol] 43 U/L Normal 29-103 [facility] Comment on above: Order Comment: Reaso n for Exam Generalized abdominal pain;Slow transit constipation;Medicat Reason for Exam Generalized abdominal pain;Medication monitoring encounter NOT FASTING. JKW Performed By: #### C BC, POOJA, LIPASE #### [address] Amylase 43 U/L Normal 29-103 U/L [employer] Other Amylase [Enzymatic activity/ volume] in Serum or PlasmaOrdered By: Maribeth Villafana on 07-15-2022 Amylase [Catalytic activity/Vol] 43 U/L 29-103 [facility] Basophils Auto (Bld) [#/Vol] Ordered By: Maribeth Villafana on 07-15-2022 Basophils (Bld) [#/Vol] 0.0 10*3/uL 0.0-0.2 [facility] Basophils/100 WBC Auto (Bld) Ordered By: Maribeth Villafana on 07-15-2022 Basophils/100 WBC (Bld) 0.5 % . F [facility] CBC W MANUAL DIFFon 07-16-19 23 ATYPICAL LYMPH # Normal [facility] Comment on above: Performed By: #### C JEAN ####[facility] [address] [place] [id number]. Keylan David ATYPICAL LYMPH % Normal [facility] Comment on above: Performed By: #### C JEAN ####[facility] [address]qet[address]xe[address] [place] [id number]. Yilan David BAND # 0.1 103/ul Normal 0.0-0.3 [facility] Comment on above: Performed By: #### C EJAN ####[facility] F[address]rex[address] [place] [address]Dr. Yilan David BAND % 1 % Normal 0-5 [facility] Comment on above: Performed By: #### C JEAN ####[facility] [address] [place] [address]Dr. Sydney David BASOM # 0.00 103/ul Normal 0.00-0.10 [facility] Comment on above: Performed By: #### C JEAN ####[facility] A[address]jmj[address] [place] [address]Dr. Sydney David BASOM % 0.0 % Critically low 0.2-2.0 [facility] Comment on above: Performed By: #### C JEAN ####[facility] U[address] [place] [address]Dr. Yimera David BLAST # Normal [facility] Comment on above: Performed By: #### C JEAN ####[facility] [address]ssf[address] [place] [address]Dr. Yilan David BLAST % Normal [facility] Comment on above: Performed By: #### C JEAN ####[facility] [address] [place] [address]Dr. Sydney David CORRECTED WBC Normal 4.0-11.0 [facility] Comment on above: Performed By: #### C JEAN ####[facility] Cybz[address]bhwi[address] [place] [address]Dr. Yilan David EOS # 0.24 103/ul Normal 0.00-0.70 [facility] Comment on above: Performed By: #### C JEAN ####[facility] Lrhmckmwsp[address] [place] [id number]. Sydney David EOS% 3.0 % Normal 0.9-7.0 [facility] Comment on above: Performed By: #### C JEAN ####[facility] Bnkweoxakn28[address] [place] [phone]. Sydney David HCT 46.4 % Normal 42.0-54.0 [facility] Comment on above: Performed By: #### C JEAN ####[facility] Kfvlgooxrc8553 [place] [phone]. Sydney David HGB 15.4 g/dl Normal 14.0-18.0 [facility] Comment on above: Performed By: #### C JEAN ####[facility] Akomhalyna[address] [place] [id number]. Sydney David LYMPHM # 3.36 103/ul Normal 1.20-3.80 [facility] Comment on above: Performed By: #### C JEAN ####[facility] Ldjijutqyn[address] [place] [phone]. Sydney David LYMPHM% 42.0 % Normal 20.5-60.0 [facility] Comment on above: Performed By: #### C JEAN ####[facility] Ognghbnflh[address] [place] [id number]. Sydney David MCH 30.3 pg Normal 25.9-34.0 [facility] Comment on above: Performed By: #### C JEAN ####[facility] Ngqiieohex6359 [place] [phone]. Sydney David MCHC 33.2 g/dl Normal 29.9-35.2 [facility] Comment on above: Performed By: #### C JEAN ####[facility] Sraydeaxvs75[address] [place] [phone]. Sydney David MCV 91.3 fL Normal 80.0-94.0 [facility] Comment on above: Performed By: #### C JEAN ####[facility] Fracfrfgob4346 [place] [phone]. Sydney David METAMYELOCYTE # Normal [facility] Comment on above: Performed By: #### C BCMAN ####[facility] Aftjzxjuav7163 [place] [phone]. Sydney David METAMYELOCYTE % Normal [facility] Comment on above: Performed By: #### C BCDOLORES ####[facility] Hfnjrdtmjt52[address] [place] [phone]. Sydney David MONOM# 0.80 103/ul Normal 0.30-0.80 [facility] Comment on above: Performed By: #### C JEAN ####[facility] [address] [place], [place] [address]Dr. Sydney David MONOM% 10.0 % Normal 1.7-12.0 [facility] Comment on above: Performed By: #### C JEAN ####[facility] Bhvhagww[address] [place], [place] [address]Dr. Sydney David MPV 11.8 fL Normal 9.5-13.5 [facility] Comment on above: Performed By: #### C JEAN ####[facility] S[address] [place], [place] [phone]. Sydney David MYELOCYTE # Normal [facility] Comment on above: Performed By: #### C JEAN ####[facility] X[address] [place], [place] [address]Dr. Sydney David MYELOCYTE % Normal [facility] Comment on above: Performed By: #### C BCDOLORES ####[facility] X[address]ri[address] [place], [place] [address]Dr. Sydney David NRBC Normal [facility] Comment on above: Performed By: #### C JEAN ####[facility] Gltpqs[address] [place], [place] [address]Dr. Sydney David PLT 249 103/ul Normal 150-450 [facility] Comment on above: Performed By: #### C JEAN ####[facility] [address] [place], [place] [address]Dr. Sydney David RBC 5.08 106/ul Normal 4.70-6.10 [facility] Comment on above: Performed By: #### C BCMAN ####[facility] Fc[address] [place], [place] [address]Hk. Sydney David RDW 13.1 % Normal 11.0-15.0 [facility] Comment on above: Performed By: #### C BCMAN ####[facility] Jleqciumgg30[address] [place], [place] [address]Ef. Sydney David SEG # 3.52 103/ul Normal 1.40-6.50 [facility] Comment on above: Performed By: #### C BCMAN ####[facility] Qvskngrlkh8806 [place], [place] [address]Nu. Sydney David SEG % 44.0 % Normal 43.0-75.0 [facility] Comment on above: Performed By: #### C BCMAN ####[facility] Pjcvrxuwjt9679 [place], [place] [address]Zx. Sydney David WBC 8.0 103/ul Normal 4.0-11.0 [facility] Comment on above: Performed By: #### C BCMAN ####[facility] Jnbiz[address]air[address] [place], [place] [address]. Sydney David CT ABD/PELV W CONon 07-16-19 [...] by: EVANGELIST LEOS Date: 2022-07-15 16:53 Normal [facility] Complete Blood Count Auto Di ffon 07-15-2022 Basophils (Bld) [#/Vol] 0.0 10*3/uL Normal 0.0-0.2 [facility] Comment on above: Order Comment: Reaso n for Exam Medication monitoring encounter Result Comment: PERF ORMED BY: [place] [address] PATHOLOGIST [employer] SALES CONSULTANT ALEM GARCIA M.D. Performed By: #### C BC, POOJA, LIPASE #### [address] Basophils/100 WBC (Bld) 0.5 % Normal . [facility] Comment on above: Order Comment: Reaso n for Exam Medication monitoring encounter Performed By: #### C BC, POOJA, LIPASE #### [address] Eosinophils (Bld) [#/Vol] 0.6 10*3/uL High 0.0-0.45 [facility] Comment on above: Order Comment: Reaso n for Exam Medication monitoring encounter Performed By: #### C BC, POOJA, LIPASE #### [address] Eosinophils/100 WBC (Bld) 6.1 % Normal . [facility] Comment on above: Order Comment: Reaso n for Exam Medication monitoring encounter Performed By: #### C BC, POOJA, LIPASE #### [address] Erythrocyte distribution width (RBC) [Ratio] 13.6 % Normal 12.0-14.8 [facility] Comment on above: Order Comment: Reaso n for Exam Medication monitoring encounter Performed By: #### C BC, POOJA, LIPASE #### [address] Hematocrit (Bld) [Volume fraction] 47.4 % Normal 38.8-50.0 [facility] Comment on above: Order Comment: Reaso n for Exam Medication monitoring encounter Performed By: #### C BC, POOJA, LIPASE #### [address] Hemoglobin (Bld) [Mass/Vol] 15.5 g/dL Normal 13.0-17.0 [facility] Comment on above: Order Comment: Reaso n for Exam Medication monitoring encounter Performed By: #### C BC, POOJA, LIPASE #### [address] Lymphocytes (Bld) [#/Vol] 4.3 10*3/uL Normal 1.00-4.8 [facility] Comment on above: Order Comment: Reaso n for Exam Medication monitoring encounter Performed By: #### C BC, POOJA, LIPASE #### [address] Lymphocytes/100 WBC (Bld) 46.5 % Normal . [facility] Comment on above: Order Comment: Reaso n for Exam Medication monitoring encounter Performed By: #### C BC, POOJA, LIPASE #### [address] MCH (RBC) [Entitic mass] 30.2 pg Normal 27.5-35.2 [facility] Comment on above: Order Comment: Reaso n for Exam Medication monitoring encounter Performed By: #### C BC, POOJA, LIPASE #### [address] MCV (RBC) [Entitic vol] 92.3 fL Normal 83.5-101 F [facility] Comment on above: Order Comment: Reaso n for Exam Medication monitoring encounter Performed By: #### C BC, POOJA, LIPASE #### [address] Mean Corpuscular HGB Conc 32.7 g/dL Normal 32.5-35.6 [facility] Comment on above: Order Comment: Reaso n for Exam Medication monitoring encounter Performed By: #### C BC, POOJA, LIPASE #### [facility] [address] Monocytes (Bld) [#/Vol] 0.8 10*3/uL Normal 0.0-0.8 [facility] Comment on above: Order Comment: Reaso n for Exam Medication monitoring encounter Performed By: #### C BC, POOJA, LIPASE #### [facility] [address] [place] [address] Monocytes/100 WBC (Bld) 8.3 % Normal . [facility] Comment on above: Order Comment: Reaso n for Exam Medication monitoring encounter Performed By: #### C BC, POOJA, LIPASE #### [facility] [address] [place] [address] Neutrophils (Bld) [#/Vol] 3.6 10*3/uL Normal 1.8-7.7 [facility] Comment on above: Order Comment: Reaso n for Exam Medication monitoring encounter Performed By: #### C BC, POOJA, LIPASE #### [facility] [address] [place] [address] Neutrophils/100 WBC (Bld) 38.6 % Normal . [facility] Comment on above: Order Comment: Reaso n for Exam Medication monitoring encounter Performed By: #### C BC, POOJA, LIPASE #### [facility] [address] [place] [address] NRBC% 0.0 /100{WBC} Normal 0-0.5 [facility] Comment on above: Order Comment: Reaso n for Exam Medication monitoring encounter Performed By: #### C BC, POOJA, LIPASE #### [facility] [address] [place] [address] [place] Platelet mean volume (Bld) [Entitic vol] 11.1 fL High 6.6-10.1 [facility] Comment on above: Order Comment: Reaso n for Exam Medication monitoring encounter Performed By: #### C BC, POOJA, LIPASE #### [address] [place] [address] [facility] WBC (Bld) [#/Vol] 9.2 10*3/uL Normal 4.1-10.5 [facility] Comment on above: Order Comment: Reaso n for Exam Medication monitoring encounter Performed By: #### C BC, POOJA, LIPASE #### [facility] [address] [place] [address] [facility] Basophils (Bld) [#/Vol] 0.806372260 10*3/uL Normal 0.0-0.2 10*3/uL [employer] Other Basophils/100 WBC (Bld) 0.500 % . % [facility] [employer] Other Eosinophils (Bld) [#/Vol] 0.191505791 10*3/uL High 0.0-0.45 10*3/uL [employer] Other Eosinophils/100 WBC (Bld) 6.100 % . % [employer] Other Erythrocyte distribution width (RBC) [Ratio] 13.600 % Normal 12.0-14.8 % [employer] Other Hematocrit (Bld) [Volume fraction] 47.400 % Normal 38.8-50.0 % [employer] Other Hemoglobin (Bld) [Mass/Vol] 15.722653 g/dL Normal 13.0-17.0 g/dL [employer] Other Lymphocytes (Bld) [#/Vol] 4.850844920 10*3/uL Normal 1.00-4.8 10*3/uL [employer] Other Lymphocytes/100 WBC (Bld) 46.500 % . % [employer] Other MCH (RBC) [Entitic mass] 30.2000 pg Normal 27.5-35.2 pg [employer] Other MCV (RBC) [Entitic vol] 92.3000 fL Normal 83.5-101 fL [employer] Other Monocytes (Bld) [#/Vol] 0.598341396 10*3/uL Normal 0.0-0.8 10*3/uL [employer] Other Monocytes/100 WBC (Bld) 8.300 % . % [facility] [employer] Other Neutrophils (Bld) [#/Vol] 3.891017728 10*3/uL Normal 1.8-7.7 10*3/uL [employer] Other Neutrophils/100 WBC (Bld) 38.600 % . % [employer] Other Platelet mean volume (Bld) [Entitic vol] 11.1000 fL High 6.6-10.1 fL [employer] Other WBC (Bld) [#/Vol] 9.161607493 10*3/uL Normal 4.1 -10.5 10*3/uL [employer] Other Complete Blood Count Auto Diff 9.2 10*3/uL Normal 4.1-10.5 10*3/uL [employer] Other Complete Blood Count Auto Diff 32.7 g/dL Normal 32.5-35.6 g/dL [employer] Other Complete Blood Count Auto Diff 0.0 /100{WBC} Normal 0-0.5 /100{WBC} [employer] Other Complete Blood Count Auto Di ffOrdered By: Maribeth Villafana on 07-15-2022 Platelets (Bld) [#/Vol] 236 10*3/uL Normal 150-450 [facility] Comment on above: Order Comment: Reaso n for Exam Medication monitoring encounter Performed By: #### C BC, POOJA, LIPASE #### [facility] [address] [place] [address] RBC (Bld) [#/Vol] 5.13 10*6/uL Normal 3.90-5.60 [facility] Comment on above: Order Comment: Reaso n for Exam Medication monitoring encounter Performed By: #### C BC, POOJA, LIPASE #### [facility] [address] ER URINE PROFILEon 3 Bilirubin Ql (U) Negative Normal NEGATIVE [facility] Comment on above: Performed By: #### E RUR ####[facility] [address] [place] [address]Dr. Sydney David Clarity (U) CLEAR Normal CLEAR [facility] Comment on above: Performed By: #### E RUR ####[facility] [address] [place] [address]Dr. Yilan David Color (U) LT. YELLOW Normal YELLOW [facility] Comment on above: Performed By: #### E RUR ####[facility] [address] [place] [address]Dr. Sydney David ERUAHD A micrscopic examination will be performed if indicated. Normal [facility] Comment on above: Performed By: #### E RUR ####[facility] [address] [place] [address]Dr. Yilan David Glucose Ql (U) Negative Normal NEGATIVE [facility] Comment on above: Performed By: #### E RUR ####[facility] [address] [place] [address]Dr. Yilan David Hemoglobin Ql (U) Negative Normal NEGATIVE [facility] Comment on above: Performed By: #### E RUR ####[facility] Wpxmsmjfif[address] [place] [address]Dr. Yilan David Ketones Ql (U) Negative Normal NEGATIVE [facility] Comment on above: Performed By: #### E RUR ####[facility] [address] [place] [address]Dr. Yilan David LEUKOCYTES Negative Normal NEGATIVE [facility] Comment on above: Performed By: #### E RUR ####[facility] [address] [place] [address]Dr. Yilan David Nitrite Ql (U) Negative Normal NEGATIVE [facility] Comment on above: Performed By: #### E RUR ####[facility] T[address] [place] [address]Dr. Sydney David pH (U) 5.5 [pH] Normal 5-9 [facility] Comment on above: Performed By: #### E RUR ####[facility] [address]ax[address]haj[address] [place] [address]Dr. Sydney Frankie SPEC GRAVITY 1.010 Normal 1.005-<=1.[address] [place] [address] Comment on above: Performed By: #### E RUR ####[facility] C[address]zwnkccg[address] [place] [address]Dr. Sydney David UA PROTEIN Negative Normal NEGATIVE/ TRACE [facility] Comment on above: Performed By: #### E RUR ####[facility] [address] [place] [address]Dr. Sydney David UR MICRO IND NOT INDICATED Normal [facility] Comment on above: Performed By: #### E RUR ####[facility] W[address]qbib[address] [place] [address]Dr. Sydney Frankie Urobilinogen Qn (U) 0.2 {Johan'U}/dL Normal 0.2 - 1. 0 [facility] Comment on above: Performed By: #### E RUR ####[facility] [address] [place] [address]Dr. Sydney David Eosinophils Auto (Bld) [#/Vo l]Ordered By: Maribeth Villafana on 07-15-2022 Eosinophils (Bld) [#/Vol] 0.6 10*3/uL 0.0-0.45 [facility] Eosinophils/100 WBC Auto (Bl d)Ordered By: Maribeth Villafana on 07-15-2022 Eosinophils/100 WBC (Bld) 6.1 % . [facility] [facility] Erythrocyte distribution wid th Auto (RBC) [Ratio]Ordered By: Maribeth Villafana on 07-15-2022 Erythrocyte distribution width (RBC) [Ratio] 13.6 % 12.0-14.8 [facility] Hematocrit Auto (Bld) [Volum e fraction]Ordered By: Maribeth Villafana on 07-15-2022 Hematocrit (Bld) [Volume fraction] 47.4 % 38.8-50.0 [facility] Hemoglobin [Mass/volume] in BloodOrdered By: Maribeth Villafana on 07-15-2022 Hemoglobin (Bld) [Mass/Vol] 15.5 g/dL 13.0-17.0 [facility] Leukocytes [#/volume] correc gris for nucleated erythrocytes in Blood by Automated counOrdered By: Maribeth Villafana on 07-15-2022 WBC corrected for nucl RBC Auto (Bld) [#/Vol] 9.2 10*3/uL 4.1-10.5 [facility] Lipaseon 07-15-2022 Lipase [Catalytic activity/Vol] 80.0 U/L Normal 11.0-82.0 [facility] Comment on above: Order Comment: Reaso n for Exam Generalized abdominal pain;Slow transit constipation;Medicat Reason for Exam Generalized abdominal pain;Medication monitoring encounter NOT FASTING. JKW Result Comment: PERF ORMED BY: [place] [address] PATHOLOGIST [employer] SALES CONSULTANT ALEM GARCIA M.D. Performed By: #### C BC, POOJA, LIPASE #### [address] Lipase [Catalytic activity/Vol] 80.83052 U/L Normal 11.0-82.0 U/L [employer] Other Lipase [Enzymatic activity/v olume] in Serum or PlasmaOrdered By: Maribeth Villafana on 07-15-2022 Lipase [Catalytic activity/Vol] 80.0 U/L 11.0-82.0 [facility] Lymphocytes Auto (Bld) [#/Vo l]Ordered By: Maribeth Villafana on 07-15-2022 Lymphocytes (Bld) [#/Vol] 4.3 10*3/uL 1.00-4.8 [facility] Lymphocytes/100 WBC Auto (Bl d)Ordered By: Maribeth Villafana on 07-15-2022 Lymphocytes/100 WBC (Bld) 46.5 % . [facility] MCH Auto (RBC) [Entitic mass ]Ordered By: Maribeth Villafana on 07-15-2022 MCH (RBC) [Entitic mass] 30.2 pg 27.5-35.2 [facility] MCHC Auto (RBC) [Mass/Vol]Or dered By: Maribeth Villafana on 07-15-2022 MCHC (RBC) [Mass/Vol] 32.7 g/dL 32.5-35.6 [facility] MCV Auto (RBC) [Entitic vol] Ordered By: Maribeth Villafana on 07-15-2022 MCV (RBC) [Entitic vol] 92.3 fL 83.5-101 F [facility] Monocytes Auto (Bld) [#/Vol] Ordered By: Maribeth Villafana on 07-15-2022 Monocytes (Bld) [#/Vol] 0.8 10*3/uL 0.0-0.8 [facility] Monocytes/100 WBC Auto (Bld) Ordered By: Maribeth Villafana on 07-15-2022 Monocytes/100 WBC (Bld) 8.3 % . F [facility] Neutrophils Auto (Bld) [#/Vo l]Ordered By: Maribeth Villafana on 07-15-2022 Neutrophils (Bld) [#/Vol] 3.6 10*3/uL 1.8-7.7 [facility] Neutrophils/100 WBC Auto (Bl d)Ordered By: Maribeth Villafana on 07-15-2022 Neutrophils/100 WBC (Bld) 38.6 % . [facility] Nucleated erythrocytes [Pres ence] in Blood by Automated countOrdered By: Maribeth Villafana on 07-15-2022 Nucleated RBC Auto Ql (Bld) 0.0 /100{WBC} 0-0.5 [facility] PROF CHEM 8 (BAS METB)on Anion gap [Moles/Vol] 13.3 mmol/L Normal [facility] Comment on above: Performed By: #### B MP #### [facility] [address] [address] [address] Sydney David Calcium [Mass/Vol] 9.1 mg/dL Normal 8.5-10.1 [facility] Comment on above: Performed By: #### B MP #### [facility] [address] [address] [address] Sydney David Chloride [Moles/Vol] 102 mmol/L Normal 98-107 [facility] Comment on above: Performed By: #### B MP #### [facility] [address] [address] [address] Sydney David CO2 [Moles/Vol] 27.2 mmol/L Normal 21.0-32.0 [facility] Comment on above: Performed By: #### B MP #### [facility] [address] [address] [address] Sydney David Creatinine [Mass/Vol] 1.08 mg/dL Normal 0.70-1.30 [facility] Comment on above: Performed By: #### B MP #### [facility] [address] [place] [address] Dr. Sydney David EGFR-AF TURKMEN >60 Normal >=60 [facility] Comment on above: Performed By: #### B MP #### [facility] [address] [address] [address] Sydney David EGFR-NON AF TURKMEN >60 Normal >=60 [facility] Comment on above: Performed By: #### B MP #### [facility] [address] [address] [address] Sydney David Glucose [Mass/Vol] 116 mg/dL Critically high 74-106 [facility] Comment on above: Performed By: #### B MP #### [facility] [address] [address] [address] Sydney David Potassium [Moles/Vol] 3.5 mmol/L Normal 3.5-5.1 [facility] Comment on above: Performed By: #### B MP #### [facility] [address] [address] [address] Sydney David Sodium [Moles/Vol] 139 mmol/L Normal 136-145 [facility] Comment on above: Performed By: #### B MP #### [facility] [address] [address] [address] Sydney David Urea nitrogen [Mass/Vol] 12.0 mg/dL Normal 7.0-18.0 [facility] Comment on above: Performed By: #### B MP #### [facility] [address] [address] [address] Sydney David Urea nitrogen/Creatinine [Mass ratio] 11.1 mg/mg Normal [facility] Comment on above: Performed By: #### B MP #### [facility] [address] [address] [address] Sydney David Platelet mean volume Auto (B ld) [Entitic vol]Ordered By: Maribeth Villafana on 07-15-2022 Platelet mean volume (Bld) [Entitic vol] 11.1 fL 6.6-10.1 [facility] WBC Auto (Bld) [#/Vol]Ordere d By: Maribeth Villafana on 07-15-2022 WBC (Bld) [#/Vol] 9.2 10*3/uL 4.1-10.5 [facility] XR KUBon 07-15-2022 XR KUB [facility] [place] [address] XRay Report Signed Patient: Neal Irene MR#: [id number] : 1980 Acct:[id number] Age/Sex: 41 / M ADM Date: 07/15/22 Loc: [facility] Room: Type: [facility] Attending Dr: Maribeth Villafana DO Copies to: Maribeth Villafana DO Ordering Provider: Maribeth Villafana DO Date of Service: 07/15/22 XR/XR KUB: [...] process. Impression dictated by: Sonny Greer Jr., D.O.07/15/2022 4:05 PM Dictation Location: [place] [address] Transcribed By: JIL 07/15/22 1605 Dictated By: Sonny Greer Jr, DO 07/15/22 1604 Signed By: 07/15/22 1605 Normal [facility] Alanine aminotransferase [En zymatic activity/volume] in Serum or PlasmaOrdered By: Maribeth Villafana on 07-12-2022 ALT [Catalytic activity/Vol] 68 U/L 7-52 [facility] Albumin [Mass/volume] in Ser um or Plasma by Bromocresol green (BCG) dye binding methoOrdered By: Maribeth Villafana on 07-12-2022 Albumin BCG dye [Mass/Vol] 4.7 g/dL 3.5-5.7 [facility] Alkaline phosphatase [Enzyma tic activity/volume] in Serum or PlasmaOrdered By: Maribeth Villafana on 07-12-2022 ALP [Catalytic activity/Vol] 33 U/L 34-104 [facility] Aspartate aminotransferase [ Enzymatic activity/volume] in Serum or PlasmaOrdered By: Maribeth Villafana on 07-12-2022 AST [Catalytic activity/Vol] 29 U/L 13-39 [facility] Bilirubin.total [Mass/volume ] in Serum or PlasmaOrdered By: Maribeth Villafana 07-12-2022 Bilirubin [Mass/Vol] 0.6 mg/dL 0.3-1.0 [facility] Calcium [Mass/volume] in Ser um or PlasmaOrdered By: Maribeth Villafana 07-12-2022 Calcium [Mass/Vol] 10.1 mg/dL 8.6-10.3 [facility] Carbon dioxide, total [Moles /volume] in Serum or PlasmaOrdered By: Maribeth Villafana 07-12-2022 CO2 [Moles/Vol] 27.5 mmol/L 21.0-31.0 [facility] Chloride [Moles/volume] in S flash or PlasmaOrdered By: Maribeth Villafana on 07-12-2022 Chloride [Moles/Vol] 106 mmol/L 98-107 [facility] Cholesterol [Mass/volume] in Serum or PlasmaOrdered By: Maribeth Villafana 07-12-2022 Cholesterol [Mass/Vol] 296 mg/dL 140-200 [facility] Comment on above: Chol less than 200 m g/dl low riskChol 201-239 mg/dl borderline riskChol 240 mg/dl and greater high risk Cholesterol in LDL Calc [Mas s/Vol]Ordered By: Maribeth Villafana on 07-12-2022 Cholesterol in LDL [Mass/Vol] 206 mg/dL 0-100 [facility] Comment on above: LDL ATP III CLASSIFI CATIONLDL less than 100 mg/dL OptimalLDL 100-129 mg/dL Near or above optimalLDL 130-159 mg/dL Borderline highLDL 160-189 mg/dL HighLDL greater than 189 mg/dL Very high Cholesterol in VLDL Calc [Ma ss/Vol]Ordered By: Maribeth Villafana on 07-12-2022 Cholesterol in VLDL [Mass/Vol] 53 mg/dL [facility] Comprehensive Metabolic Pane jenni 07-12-2022 Albumin [Mass/Vol] 4.7 g/dL Normal 3.5-5.7 [facility] Comment on above: Order Comment: PT FA STED 12 HOURS Reason for Exam Well adult exam;Lipid disorder;Medication monitoring encount Reason for Exam Lipid disorder Performed By: #### L SOLOMON, PSAS W RFX, CMP #### [facility] [address] Albumin/Globulin [Mass ratio] 1.8 {ratio} Normal [facility] Comment on above: Order Comment: PT FA STED 12 HOURS Reason for Exam Well adult exam;Lipid disorder;Medication monitoring encount Reason for Exam Lipid disorder Performed By: #### L IPID, PSAS W RFX, CMP #### [facility] [address] [place] [address] [place] ALP [Catalytic activity/Vol] 33 U/L Low 34-104 [facility] Comment on above: Order Comment: PT FA STED 12 HOURS Reason for Exam Well adult exam;Lipid disorder;Medication monitoring encount Reason for Exam Lipid disorder Performed By: #### L IPID, PSAS W RFX, CMP #### [facility] [address] [place] [address] [place] ALT [Catalytic activity/Vol] 68 U/L High 7-52 [facility] Comment on above: Order Comment: PT FA STED 12 HOURS Reason for Exam Well adult exam;Lipid disorder;Medication monitoring encount Reason for Exam Lipid disorder Performed By: #### L IPID, PSAS W RFX, CMP #### [facility] [address] Anion gap [Moles/Vol] 11.8 mmol/L Normal 6.0-15.0 [facility] Comment on above: Order Comment: PT FA STED 12 HOURS Reason for Exam Well adult exam;Lipid disorder;Medication monitoring encount Reason for Exam Lipid disorder Performed By: #### L IPID, PSAS W RFX, CMP #### [facility] [address] AST [Catalytic activity/Vol] 29 U/L Normal 13-39 [facility] Comment on above: Order Comment: PT FA STED 12 HOURS Reason for Exam Well adult exam;Lipid disorder;Medication monitoring encount Reason for Exam Lipid disorder Performed By: #### L IPDANNIELLE, PSAS W RFX, CMP #### [facility] [address] [place] [address] Bilirubin [Mass/Vol] 0.6 mg/dL Normal 0.3-1.0 [facility] Comment on above: Order Comment: PT FA STED 12 HOURS Reason for Exam Well adult exam;Lipid disorder;Medication monitoring encount Reason for Exam Lipid disorder Performed By: #### L IPID, PSAS W RFX, CMP #### [facility] [address] Calcium [Mass/Vol] 10.1 mg/dL Normal 8.6-10.3 [facility] Comment on above: Order Comment: PT FA STED 12 HOURS Reason for Exam Well adult exam;Lipid disorder;Medication monitoring encount Reason for Exam Lipid disorder Performed By: #### L IPID, PSAS W RFX, CMP #### [facility] [address] Chloride [Moles/Vol] 106 mmol/L Normal 98-107 [facility] Comment on above: Order Comment: PT FA STED 12 HOURS Reason for Exam Well adult exam;Lipid disorder;Medication monitoring encount Reason for Exam Lipid disorder Performed By: #### L IPID, PSAS W RFX, CMP #### [facility] [address] CO2 [Moles/Vol] 27.5 mmol/L Normal 21.0-31.0 [facility] Comment on above: Order Comment: PT FA STED 12 HOURS Reason for Exam Well adult exam;Lipid disorder;Medication monitoring encount Reason for Exam Lipid disorder Performed By: #### L IPDANNIELLE PSAS W RFX, CMP #### [facility] [address] Creatinine [Mass/Vol] 0.96 mg/dL Normal 0.70-1.30 [facility] Comment on above: Order Comment: PT FA STED 12 HOURS Reason for Exam Well adult exam;Lipid disorder;Medication monitoring encount Reason for Exam Lipid disorder Performed By: #### L SOLOMON PSAS W RFX, CMP #### [facility] [address] [place] [address] GFR/1.73 sq M.predicted MDRD (S/P/Bld) [Vol rate/Area] mL/min/{1.73_m2} Normal [facility] Comment on above: Order Comment: PT FA STED 12 HOURS Reason for Exam Well adult exam;Lipid disorder;Medication monitoring encount Reason for Exam Lipid disorder Performed By: #### L SOLOMON, PSAS W RFX, CMP #### [facility] [address] [place] [address] Globulin (S) [Mass/Vol] 2.6 g/dL Normal [facility] Comment on above: Order Comment: PT FA STED 12 HOURS Reason for Exam Well adult exam;Lipid disorder;Medication monitoring encount Reason for Exam Lipid disorder Performed By: #### L IPID, PSAS W RFX, CMP #### [facility] [address] [place] [address] Glucose [Mass/Vol] 106 mg/dL High 70-100 [facility] Comment on above: Order Comment: PT FA STED 12 HOURS Reason for Exam Well adult exam;Lipid disorder;Medication monitoring encount Reason for Exam Lipid disorder Result Comment: [place] om Glucose Reference Range is dependent on time and content of last meal. Glucose of more than 200 mg/dL in a nonstressed, ambulatory subject supports the diagnosis of Diabetes Mellitus. ADA recommended reference range Performed By: #### L IPDANNIELLE PSAS W RFX, CMP #### [facility] [address] Potassium [Moles/Vol] 4.3 mmol/L Normal 3.5-5.1 [facility] Comment on above: Order Comment: PT FA STED 12 HOURS Reason for Exam Well adult exam;Lipid disorder;Medication monitoring encount Reason for Exam Lipid disorder Performed By: #### L IPDANNIELLE PSAS W RFX, CMP #### [facility] [address] Protein [Mass/Vol] 7.3 g/dL Normal 6.4-8.9 [facility] Comment on above: Order Comment: PT FA STED 12 HOURS Reason for Exam Well adult exam;Lipid disorder;Medication monitoring encount Reason for Exam Lipid disorder Performed By: #### L HUSSAINID, PSAS W RFX, CMP #### [facility] [address] [place] [address] [place] Sodium [Moles/Vol] 141 mmol/L Normal 136-145 [facility] Comment on above: Order Comment: PT FA STED 12 HOURS Reason for Exam Well adult exam;Lipid disorder;Medication monitoring encount Reason for Exam Lipid disorder Performed By: #### L SOLOMON PSAS W RFX, CMP #### [facility] [address] [place] [address] [place] Urea nitrogen [Mass/Vol] 12 mg/dL Normal 7-25 [facility] Comment on above: Order Comment: PT FA STED 12 HOURS Reason for Exam Well adult exam;Lipid disorder;Medication monitoring encount Reason for Exam Lipid disorder Performed By: #### L IPID, PSAS W RFX, CMP #### [facility] [address] [place] [id number] [place] Creatinine [Mass/volume] in Serum or PlasmaOrdered By: Maribeth Villafana on 07-12-2022 Creatinine [Mass/Vol] 0.96 mg/dL 0.70-1.30 [facility] Globulin Calc (S) [Mass/Vol] Ordered By: Maribeth Villafana on 07-12-2022 Globulin (S) [Mass/Vol] 2.6 g/dL [facility] Glucose [Mass/volume] in Ser um or PlasmaOrdered By: Maribeth Villafana on 07-12-2022 Glucose [Mass/Vol] 106 mg/dL 70-100 [facility] Comment on above: ADA recommended refe rence rangeRandom Glucose Reference Range is dependent on time and content of last meal. Glucose of more than 200 mg/dL in a nonstressed, ambulatory subject supports the diagnosis of Diabetes Mellitus. Lipid Panelon 07-12-2022 Cholesterol [Mass/Vol] 296 mg/dL High 140-200 [facility] Comment on above: Order Comment: PT FA STED 12 HOURS Reason for Exam Well adult exam;Lipid disorder;Medication monitoring encount Reason for Exam Lipid disorder Result Comment: Chol less than 200 mg/dl low risk Chol 201-239 mg/dl borderline risk Chol 240 mg/dl and greater high risk Performed By: #### L IPID, PSAS W RFX, CMP #### [facility] [address] Cholesterol in HDL [Mass/Vol] 37 mg/dL Normal 29-71 [facility] Comment on above: Order Comment: PT FA STED 12 HOURS Reason for Exam Well adult exam;Lipid disorder;Medication monitoring encount Reason for Exam Lipid disorder Result Comment: HDL CHOL ATP-III CLASSIFICATION Cardiovascular Risk HDL > or equal to 60 mg/dL LOW HDL < 40 mg/dL HIGH Performed By: #### L IPID, PSAS W RFX, CMP #### [facility] [address] [place] [id number] [facility] Cholesterol.total/Patti sterol in HDL [Mass ratio] 8.0 {ratio} Normal <5.0 [facility] Comment on above: Order Comment: PT FA STED 12 HOURS Reason for Exam Well adult exam;Lipid disorder;Medication monitoring encount Reason for Exam Lipid disorder Result Comment: PERF ORMED BY: [facility] [address] [facility] [place] [address] PATHOLOGIST [employer] SALES CONSULTANT ALEM GARCIA M.D. Performed By: #### L IPID, PSAS W RFX, CMP #### [facility] [address] LDL Cholesterol,Calculated 206 mg/dL High 0-100 [facility] Comment on above: Order Comment: [...] L IPID, PSAS W RFX, CMP #### [facility] [address] Triglyceride w/Reflex 266 mg/dL High 0-149 [facility] Comment on above: Order Comment: PT FA [...] L IPID, PSAS W RFX, CMP #### [facility] [address] VLDL CHOLESTEROL 53 mg/dL Normal [facility] Comment on above: Order Comment: PT FA STED 12 HOURS Reason for Exam Well adult exam;Lipid disorder;Medication monitoring encount Reason for Exam Lipid disorder Performed By: #### L IPID, PSAS W RFX, CMP #### [facility] [address] No Panel InformationOrdered By: Maribeth Villafana on 07-12-2022 Estimated GFR (CKD-EPI) > 60.0 mL/Min [facility] Creatinine Clearance (Chem N/A [facility] PSA Screen (Yearly) w/Reflex on 07-12-2022 PSA Screen (Yearly) w/Reflex 0.670 ng/mL Normal 0.000-4.000 [facility] Comment on above: Order Comment: Reaso n for Exam Well adult exam;Prostate cancer screening Is patient <50 yrs? Medicare does not pay <50.: Y What is the date of the last PSA Screen?: N/A Is Medicare the insurance?: N Did you verify eligibility (Dx Time) check TestViewGp: YES TO ALL Result Comment: PERF ORMED BY: [facility] [address] [place] [address] PATHOLOGIST SURGICAL [employer] SALES CONSULTANT ALEM GARCIA M.D. Performed By: #### L IPID, PSAS W RFX, CMP #### [facility] [address] Potassium [Moles/volume] in Serum or PlasmaOrdered By: Maribeth Villafana on 07-12-2022 Potassium [Moles/Vol] 4.3 mmol/L 3.5-5.1 [facility] Prostate specific Ag [Mass/v olume] in Serum or PlasmaOrdered By: Maribeth Villafana on 07-12-2022 Prostate specific Ag [Mass/Vol] 0.670 ng/mL 0.000-4.000 [facility] Protein [Mass/volume] in Ser um or PlasmaOrdered By: Maribeth Villafana on 07-12-2022 Protein [Mass/Vol] 7.3 g/dL 6.4-8.9 [facility] Serum or plasma albumin/glob ulin mass ratioOrdered By: Maribeth Villafana on 07-12-2022 Albumin/Globulin [Mass ratio] 1.8 {ratio} [facility] Serum or plasma anion gap de terminationOrdered By: Maribeth Villafana on 07-12-2022 Anion gap [Moles/Vol] 11.8 mmol/L 6.0-15.0 [facility] Serum or plasma high density lipoprotein (HDL) cholesterol measurementOrdered By: Maribeth Villafana on 07-12-2022 Cholesterol in HDL [Mass/Vol] 37 mg/dL 29-71 [facility] Comment on above: HDL CHOL ATP-III CLA SSIFICATION Cardiovascular RiskHDL > or equal to 60 mg/dL LOWHDL < 40 mg/dL HIGH Serum or plasma total choles terol/high density lipoprotein (HDL) cholesterol mass ratOrdered By: Maribeth Villafana on 07-12-2022 Cholesterol.total/Patti sterol in HDL [Mass ratio] 8.0 {ratio} <5.0 [facility] Sodium [Moles/volume] in Ser um or PlasmaOrdered By: Maribeth Villafana on 07-12-2022 Sodium [Moles/Vol] 141 mmol/L 136-145 [facility] Triglyceride [Mass/volume] i n Serum or PlasmaOrdered By: Maribeth Villafana on 07-12-2022 Triglyceride [Mass/Vol] 266 mg/dL 0-149 F [facility] Comment on above: TRIG ATP III CLASSIF ICATIONTRIG less than 150 mg/dL NormalTRIG 150-199 mg/dL Borderline highTRIG 200-500 mg/dL High TRIG greater than 500 mg/dL Very highStandard traceable to the Center for Disease Conrtrol and Prevention (CDC) test method. Urea nitrogen [Mass/volume] in Serum or PlasmaOrdered By: Maribeth Villafana on 07-12-2022 Urea nitrogen [Mass/Vol] 12 mg/dL 10-29 [facility] XR LSPINE 2_3 VIEWSon 2022 [...] by: DAMARIS ESPINOSA Date: 2022-07-02 14:57 Normal [facility] MRI PELVIS WO CONon 06-28-19 23 MRI PELVIS WO CON EXAMINATION: MRI [...] by: DAMARIS ESPINOSA Date: 2022-06-27 09:45 Normal [facility] MRI [facility] WO CONon 06-27-19 23 MRI [facility] WO CON EXAMINATION: MRI [facility] WO CON HISTORY: Lumbar radiculitis , urinary [...] by: RENE LAUREN Date: 2022-06-26 15:24 Normal [facility] XR lumbar spine AP/LAT/FLX/E XTon 01-08-2021 XR lumbar spine AP/LAT/FLX/EXT [facility] [employer] Other XR lumbar spine AP/LAT/FLX/EXT [facility] [employer] Other XR lumbar spine AP/LAT/FLX/EXT [address] [place] [address] [employer] Other XR lumbar spine AP/LAT/FLX/[place] [address] [employer] Other XR lumbar spine AP/LAT/FLX/EXT XRay Report [employer] Other XR lumbar spine AP/LAT/FLX/EXT Signed [employer] Other XR lumbar spine AP/LAT/FLX/EXT Patient: Neal Irene MR#: [id number] [employer] Other XR lumbar spine AP/LAT/FLX/EXT 206 [employer] Other XR lumbar spine AP/LAT/FLX/EXT : 1980 Acct:[id number] [employer] Other XR lumbar spine AP/LAT/FLX/EXT Age/Sex: 40 / M ADM Date: 01/08/21 [employer] Other XR lumbar spine AP/LAT/FLX/EXT Loc: [facility] Room: Type: REG I [employer] Other XR lumbar spine AP/LAT/FLX/EXT Attending Dr: Charles Solares MD [employer] Other XR lumbar spine AP/LAT/FLX/EXT Ordering Provider: Charles Solares MD [employer] Other XR lumbar spine AP/LAT/FLX/EXT Date of Service: 01/08/21 [employer] Other XR lumbar spine AP/LAT/FLX/EXT XR/XR lumbar spine AP/LAT/FLX/EXT: Other spondylosis with radiculopathy, [employer] Other XR lumbar spine AP/LAT/FLX/EXT lumbar region [employer] Other XR lumbar spine AP/LAT/FLX/EXT Copies to: Charles Solares MD [employer] Other XR lumbar spine AP/LAT/FLX/EXT Lumbar spine 01/08/2021. [employer] Other XR lumbar spine AP/LAT/FLX/EXT CLINICAL DATA: Low back pain. [employer] Other XR lumbar spine AP/LAT/FLX/EXT FINDINGS: 4 standing views of the lumbar spine were obtained including lateral views in the [employer] Other XR lumbar spine AP/LAT/FLX/EXT neutral, flexion, and extension positions. This examination is compared with a prior study 04/14/2019. [employer] Other XR lumbar spine AP/LAT/FLX/EXT There are stable postsurgical changes related to lumbosacral spinal fusion. There is also stable [employer] Other XR lumbar spine AP/LAT/FLX/EXT anterior malalignment of L5 on S1. Mild posterior malalignment of L2 on L3 is noted. Overall [employer] Other XR lumbar spine AP/LAT/FLX/EXT vertebral alignment does not significantly change with limited flexion or limited extension. Disc [employer] Other XR lumbar spine AP/LAT/FLX/EXT space narrowing is identified. Minimal degenerative changes are seen. [employer] Other XR lumbar spine AP/LAT/FLX/EXT XR/XR lumbar spine AP/LAT/FLX/EXT [employer] Other XR lumbar spine AP/LAT/FLX/EXT IMPRESSION: Stable postsurgical changes and mild vertebral malalignment at the lumbosacral junction. [employer] Other XR lumbar spine AP/LAT/FLX/EXT Mild posterior malalignment of L2 on L3. No instability with limited flexion or extension. Disc [employer] Other XR lumbar spine AP/LAT/FLX/EXT space narrowing and minimal degenerative changes. [employer] Other XR lumbar spine AP/LAT/FLX/EXT Impression dictated by: Jude Stock Jr., M.D.01/08/2021 2:59 PM [employer] Other XR lumbar spine AP/LAT/FLX/EXT Dictation Location: [place] [address] [employer] Other XR lumbar spine AP/LAT/FLX/EXT Transcribed By: JIL 01/08/21 [facility] [employer] Other XR lumbar spine AP/LAT/FLX/EXT Dictated By: Jude Stock Jr, MD 01/08/21 [facility] [employer] Other XR lumbar spine AP/LAT/FLX/EXT Signed By: [employer] Other XR lumbar spine AP/LAT/FLX/EXT 01/08/21 [facility] [employer] Other Erasto 06-09-2018 CNOV Office Visit (NSFRVW ) NEAL IRENE ([id number]) 1980 M Date Time Provider Department 06/09/18 [...] fx. Had surgery by Dr. Robbie Wakefield, [facility] in [place]. 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 PROGRESSon 06-09-2018 Protein mass conc HNO ID: [id number] Author: Phi Rene Service: ? Author Type: [...] fx. Had surgery by Dr. Robbie Wakefield, [facility] in [place]. He felt that he was better in [...] This happens every 12 - 15 steps. 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 ED Note-Physicianon 04-07-19 ED Note-Physician Basic Information Time Seen: May SERRANO, Abdelrahman Merchant 04/01/2018 11:17 Chief Complaint Back pain was bending down to light wood burner and pulled something. Hx of back problems and surgeries. Took two [place], flexeril, celebrex prior to coming. Needs another surgery for back. History of Present Illness 37-year-old white male presents emergency room with his and complaints of worsening lower back pain after bending over to light his heater in his shop. Patient has had prior back surgery by Dr. Sen in [place] March 14, 2015. Patient states he has [...] Anxious mood & affect. Integumentary: Warm, Dry, [place] Medical Decision Making X-rays did not demonstrate [...] Directed Follow-up With When Contact Information RENE WASMARYCRUZ In 3 days 04/04/2018 [facility] [address] [place] [address]- Business (1) Additional Instructions: Call tomorrow for [...] made to ensure accuracy, however, inadvertently computerized spare person mistakes may be present. Patient was treated and evaluated by the physician housekeeping assistant. The attending physician was in the [...] acute fracture. Signed By: Andreas Cordova MD [facility] Comment on above: Result Comment: Elec tronically Signed By: Abdelrahman Olvera PA-C\.br\Date and Time Signed: 04/01/18 12:55 EST\.br\Electronically Co-Signed By: Lashay Li DO\.br\Date and Time Co-Signed: 04/07/18 16:20 EST Coding Summary.on 04-02-2018 Coding Summary. CODING DATE: 04/02/2018 FINAL [facility] STATUS: Home (Routine DC) PAYOR: Commercial Insurance APC DESCRIPTION 5522 Level 2 Imaging without Contrast ADMIT DX: REASON FOR VISIT DX: M54.5 Low back pain FINAL DX: PRINCIPAL: M54.5 Low back pain SECONDARY: M53.3 Sacrococcygeal disorders, not elsewhere classified Z79.899 Other intermodal dispatcher (current) drug therapy PYMT PROC APC STAT DESCRIPTION DOCTOR NAME DATE NOTE: The code number assigned matches the documented diagnosis and / or procedure in the patient's chart. However, the narrative phrase printed from the coding software may appear abbreviated, or result in slightly different terminology. Coded By: Laila Mcghee Date Saved: 04/02/2018 11:01 am [facility] ED Clinical Summaryon 2017 ED Clinical Summary [place] [id number] ED Clinical Summary Person Information Name: NEAL IRENE/[facility] Age: 37 Years : 1980 12:00 AM Sex: Male Language: New Zealander PCP: RENE MORRELL DO Marital Status: Visit [...] 04/01/2018 1:01 PM 04/01/2018 1:01 PM ADDRESS: [address] [place] [id number] [facility] DOC NOTES: MEDICAL INFORMATION: Prescriptions Given: Prescription [...] Follow up: With: Address: When: RENE MORRELL [address] [place] [address] [facility] (1) In 3 days 04/04/2018 Comments: Call [...] the lower extremities DIAGNOSIS: Lumbosacral pain Normal [facility] ED Patient Education Noteon 04-01-2018 ED Patient [...] stressful on the back to sit or 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 Do not sit, drive, or bottle capping machine operator one place for more than 30 minutes [...] pillow under your knees. ? Only take wkdt-kes-uzvadaj or prescription medicines as directed by your caregiver. Czpq-gre-lqmpewj medicines to reduce pain and inflammation are [...] Document Reviewed: 07/26/2014 ExitCare? Patient Information ?2015 [employer]. This information is not intended to replace [...] the first months of treatment. Only take nqab-uij-zddjkua or prescription medicines for pain, discomfort, or [...] Document Reviewed: 07/17/2009 ExitCare? Patient Information ?2014 Clinical Data, [employer]. This information is not intended to replace advice given to you by your health care provider. Make sure you discuss any questions you have with your health care provider. Normal [facility] ED Patient Summaryon 018 ED Patient Summary [place] [id number] Patient Discharge Instructions Person Information Name: NEAL IRENE Age: 37 Years Arrival Date: 04/01/2018 11:05 AM Discharge Diagnosis: Lumbosacral pain Primary Care Physician: RENE MORRELL DO Provider Information Primary Provider: Lashay Li DO Advanced Massotherapist:Abdelrahman Olvera PA-C The exam and treatment you received in the Emergency Department were for an urgent problem and are not intended as complete care. It is important that you follow up with a doctor, nurse practitioner, or physician?s housekeeping assistant for ongoing care. If your symptoms [...] Follow-up Instructions: With: Address: When: RENE MORRELL [address] [place], [place] [id number] [facility] (1) In 3 days 04/04/2018 Comments: Call [...] opioids can be used to help relieve tntrthwb-je-ilhcdt pain and are often prescribed following a [...] be struggling with addiction, tell your health patient care secretary and ask for guidance or call [facility]?S National Helpline at 0-558-170-NFFE. w Source: [place] Department of Health and Human Services/Center for Disease Control & Prevention [facility] Medications Given: Medication Dose Route [...] Comment: Pharmacy Information: Thank you for choosing [facility] Patient Education Materials: Radicular Pain [...] the first months of treatment. Only take wtyk-ylm-ajmhmpw or prescription medicines for pain, discomfort, or [...] Document Reviewed: 07/17/2009 ExitCare? Patient Information ?2015 [employer]. This information is not intended to replace [...] stressful on the back to sit or 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 Do not sit, drive, or bottle capping machine operator one place for more than 30 minutes [...] pillow under your knees. ? Only take hbzp-yne-mdqeoiq or prescription medicines as directed by your caregiver. Epfo-pwa-mhdhucq medicines to reduce pain and inflammation are [...] 09/22/2012 Document Reviewed: 07/26/2014 ExitCare? Patient Information ?2014 [employer]. This information is not intended to replace advice given to you by your health care provider. Make sure you discuss any questions you have with your health care provider. ELENA Bolden RUSSELL , have received the following patient education materials/instruction s and have verbalized understanding: Patient Education Materials: Radicular Pain; Back Pain, Adult Follow-up Instructions: With: Address: When: RENE [address]ONISIL [address] [facility] [place] [address] Business (1) In 3 days 04/04/2018 Comments: [...] Signature Date Clinician/Nurse Signature Date 04/01/18 13:01:03 [facility] Progress Note-Nurseon 2017 Protein mass conc Patient: NEAL IRENE Age: 37 years Sex: Male : 1980 Associated Diagnoses: None Author: Dottie RN, Maria Fernanda Trejo Progress Note Pt states [...] . No further needs at this time. [facility] XR Spine Lumbosacral Minimum 4 Viewson 04-01-2018 [...] Cordova MD Transcribed by: DARSHAN Technologist: DEAN Smalls [facility] Vital Signs Date Time Vital Sign Value Performing Clinician Facility 01-17-2023 09:00-0400 Body height 177.8 cm Maribeth Villafana Other [employer] Other 01-17-2023 09:00-0400 Body mass index (BMI) [Ratio] 39.17 kg/m2 Maribeth Villafana Other [employer] Other 01-17-2023 09:00-0400 Body temperature 97.7 [degF] Maribeth Villafana Other [employer] Other 01-17-2023 09:00-0400 Body weight 123.83 kg Maribeth Villafana Other [employer] Other 01-17-2023 09:00-0400 Diastolic blood pressure 78 mm[Hg] Maribeth Villafana Other [employer] Other 01-17-2023 09:00-0400 SaO2% (BldA) [Mass fraction] 98 % Maribeth Villafana Other [employer] Other 01-17-2023 09:00-0400 Systolic blood pressure 112 mm[Hg] Maribeth Villafana Other [employer] Other 12-18-2022 09:45-0400 Body height 177.8 cm Maribeth Villafana Other [employer] Other 12-18-2022 09:45-0400 Body mass index (BMI) [Ratio] 37.73 kg/m2 Maribeth Villafana Other [employer] Other 12-18-2022 09:45-0400 Body weight 119.3 kg Maribeth Villafana Other [employer] Other 12-18-2022 09:45-0400 Diastolic blood pressure 86 mm[Hg] Maribeth Villafana Other [employer] Other 12-18-2022 09:45-0400 Respiratory rate 18 /min Maribeth Villafana Other [employer] Other 12-18-2022 09:45-0400 SaO2% (BldA) [Mass fraction] 95 % Maribeth Villafana Other [employer] Other 12-18-2022 09:45-0400 Systolic blood pressure 126 mm[Hg] Maribeth Villafana Other [employer] Other 12-12-2022 08:00-0400 Body height 177.8 cm Maribeth Villafana Other [employer] Other 12-12-2022 08:00-0400 Body mass index (BMI) [Ratio] 37.73 kg/m2 Maribeth Woodymer Other [employer] Other 12-12-2022 08:00-0400 Body temperature 98.5 [degF] Maribeth Woodymer Other [employer] Other 12-12-2022 08:00-0400 Body weight 119.3 kg Maribeth Woodymer Other [employer] Other 12-12-2022 08:00-0400 Diastolic blood pressure 102 mm[Hg] Maribeth Villafana Other [employer] Other 12-12-2022 08:00-0400 SaO2% (BldA) [Mass fraction] 96 % Maribeth Woodymer Other [employer] Other 12-12-2022 08:00-0400 Systolic blood pressure 150 mm[Hg] Maribeth Carolann Other [employer] Other 09-26-2022 10:22-0400 Diastolic blood pressure 108 mm[Hg] DO Maribeth Villafana Work Phone: [facility] 09-26-2022 10:22-0400 Heart rate 74 /min DO Maribeth Villafana Work Phone: [facility] 09-26-2022 10:22-0400 Respiratory rate 16 /min DO Maribeth Villafana Work Phone: [facility] 09-26-2022 10:22-0400 SaO2% (BldA) [Mass fraction] 98 % DO Maribeth Villafana Work Phone: [facility] 09-26-2022 10:22-0400 Systolic blood pressure 156 mm[Hg] DO Maribeth Villafana Work Phone: [facility] 09-26-2022 08:26-0400 Body height 175.26 cm DO Maribeth Villafana Work Phone: [facility] 09-26-2022 08:26-0400 Body temperature 98.5 [degF] DO Maribeth Villafana Work Phone: [facility] 09-26-2022 08:26-0400 Body weight 113.39 kg DO Maribeth Villafana Work Phone: [facility] 09-11-2022 09:45-0400 Body height 177.8 cm Maribeth Villafana Other [employer] Other 09-11-2022 09:45-0400 Body mass index (BMI) [Ratio] 35.37 kg/m2 Maribeth Villafana Other [employer] Other 09-11-2022 09:45-0400 Body weight 111.81 kg Maribeth Villafana Other [employer] Other 09-11-2022 09:45-0400 Diastolic blood pressure 88 mm[Hg] Maribeth Villafana Other [employer] Other 09-11-2022 09:45-0400 Respiratory rate 18 /min Maribeth Villafana Other [employer] Other 09-11-2022 09:45-0400 SaO2% (BldA) [Mass fraction] 98 % Maribeth Woodymer Other [employer] Other 09-11-2022 09:45-0400 Systolic blood pressure 142 mm[Hg] Maribeth Villafana Other [employer] Other 07-24-2022 10:30-0400 Body height 177.8 cm Igor Scedwardner Other [employer] Other 07-24-2022 10:30-0400 Body mass index (BMI) [Ratio] 35.58 kg/m2 Igor Scovanner Other [employer] Other 07-24-2022 10:30-0400 Body weight 112.49 kg Igor Scdian Other [employer] Other 07-24-2022 10:30-0400 Diastolic blood pressure 132 mm[Hg] Igor Scovanner Other [employer] Other 07-24-2022 10:30-0400 Systolic blood pressure 187 mm[Hg] Igor Scovanner Other [employer] Other 07-15-2022 12:15-0400 Body height 177.8 cm Maribeth Villafana Other [employer] Other 07-15-2022 12:15-0400 Body mass index (BMI) [Ratio] 35.58 kg/m2 Maribeth Villafana Other [employer] Other 07-15-2022 12:15-0400 Body temperature 98.1 [degF] Maribeth Villafana Other [employer] Other 07-15-2022 12:15-0400 Body weight 112.49 kg Maribeth Villafana Other [employer] Other 07-15-2022 12:15-0400 Diastolic blood pressure 110 mm[Hg] Maribeth Villafana Other [employer] Other 07-15-2022 12:15-0400 SaO2% (BldA) [Mass fraction] 97 % Maribeth Villafana Other [employer] Other 07-15-2022 12:15-0400 Systolic blood pressure 156 mm[Hg] Maribethwaldo Villafana Other [employer] Other 01-04-2022 12:15-0400 Body height 177.8 cm Maribeth Villafana Other [employer] Other 01-04-2022 12:15-0400 Body mass index (BMI) [Ratio] 34.39 kg/m2 Maribeth Carolann Other [employer] Other 01-04-2022 12:15-0400 Body weight 108.73 kg Maribeth Carolann Other [employer] Other 01-04-2022 12:15-0400 Diastolic blood pressure 86 mm[Hg] Maribeth Villafana Other [employer] Other 01-04-2022 12:15-0400 Respiratory rate 18 /min Maribeth Carolann Other [employer] Other 01-04-2022 12:15-0400 SaO2% (BldA) [Mass fraction] 98 % Maribeth Villafana Other [employer] Other 01-04-2022 12:15-0400 Systolic blood pressure 136 mm[Hg] Maribeth Villafana Other [employer] Other 06-22-2021 10:00-0400 Body height 177.8 cm Maribeth Carolann Other [employer] Other 06-22-2021 10:00-0400 Body mass index (BMI) [Ratio] 34.16 kg/m2 Maribeth Villafana Other [employer] Other 06-22-2021 10:00-0400 Body weight 108 kg Maribethwaldo Villafana Other [employer] Other 06-22-2021 10:00-0400 Diastolic blood pressure 78 mm[Hg] Maribeth Villafana Other [employer] Other 06-22-2021 10:00-0400 Respiratory rate 18 /min Maribeth Carolann Other [employer] Other 06-22-2021 10:00-0400 SaO2% (BldA) [Mass fraction] 95 % Maribethwaldo Villafana Other [employer] Other 06-22-2021 10:00-0400 Systolic blood pressure 118 mm[Hg] Maribeth Villafana Other [employer] Other 03-08-2021 12:15-0500 Body height 177.8 cm Charles Solares Other [employer] Other 03-08-2021 12:15-0500 Body mass index (BMI) [Ratio] 33.72 kg/m2 Charles Solares Other [employer] Other 03-08-2021 12:15-0500 Body weight 106.6 kg Charles Solares Other [employer] Other 02-12-2021 11:00-0500 Body height 177.8 cm Maribeth Villafana Other [employer] Other 02-12-2021 11:00-0500 Body mass index (BMI) [Ratio] 33.37 kg/m2 Maribeth Villafana Other [employer] Other 02-12-2021 11:00-0500 Body temperature 98.3 [degF] Maribeth Villafana Other [employer] Other 02-12-2021 11:00-0500 Body weight 105.51 kg Maribeth Villafana Other [employer] Other 02-12-2021 11:00-0500 Diastolic blood pressure 88 mm[Hg] Maribeth Villafana Other [employer] Other 02-12-2021 11:00-0500 Respiratory rate 18 /min Maribeth Villafana Other [employer] Other 02-12-2021 11:00-0500 SaO2% (BldA) [Mass fraction] 99 % Maribeth Villafana Other [employer] Other 02-12-2021 11:00-0500 Systolic blood pressure 134 mm[Hg] Maribeth Villafana Other [employer] Other 02-01-2021 11:45-0400 Body height 177.8 cm Maribeth Villafana Other [employer] Other 02-01-2021 11:45-0400 Body mass index (BMI) [Ratio] 35.48 kg/m2 Maribeth Villafana Other [employer] Other 02-01-2021 11:45-0400 Body temperature 98.2 [degF] Maribeth Villafana Other [employer] Other 02-01-2021 11:45-0400 Body weight 112.18 kg Maribeth Villafana Other [employer] Other 02-01-2021 11:45-0400 Diastolic blood pressure 86 mm[Hg] Maribeth Villafana Other [employer] Other 02-01-2021 11:45-0400 Respiratory rate 18 /min Maribeth Villafana Other [employer] Other 02-01-2021 11:45-0400 SaO2% (BldA) [Mass fraction] 97 % Maribeth Villafana Other [employer] Other 02-01-2021 11:45-0400 Systolic blood pressure 136 mm[Hg] Maribeth Villafana Other [employer] Other Encounters Encounter Date Encounter Type Care Provider Facility Start: 03-13-2023 End: 03-13-2023 ambulatory Maribeth Villafana Other [employer] Other Start: 03-13-2023 Telephone encounter Maribeth Carolann [facility] Start: 02-05-2023 End: 02-05-2023 ambulatory Maribeth Villafana Other [employer] Other Start: 02-05-2023 Telephone encounter Maribeth Carolann [facility] Start: 01-17-2023 End: 01-17-2023 ambulatory Maribeth Villafana Other [employer] Other Start: 01-17-2023 Encounter for genera l adult medical examination without abnormal findings Maribeth Villafana [facility] Start: 01-17-2023 Periodic preventive med est patient 40-64yrs Maribeth Villafana [facility] Start: 12-18-2022 (Procedure) Short Maribeth Villafana [facility] [place] Start: 12-18-2022 End: 12-18-2022 ambulatory Maribeth Villafana Other [employer] Other Start: 12-12-2022 End: 12-12-2022 ambulatory Maribeth Villafana Other [employer] Other Start: 12-12-2022 Office outpatient visit 15 minutes Maribeth Carolann [facility] [place] Start: 12-05-2022 End: 12-05-2022 ambulatory Maribeth Villafana Other [employer] Other Start: 12-05-2022 Telephone encounter Maribeth Carolann [facility] Start: 09-28-2022 End: 09-28-2022 ambulatory Nash Cardenas Other [employer] Other Start: 09-28-2022 Telephone encounter Nash COCHRAN [facility] Start: 09-26-2022 End: 09-26-2022 ambulatory Nash Cardenas Facility:[facility] Start: 09-26-2022 End: 09-26-2022 Admission to same day surgery center DO Maribeth Villafana Work Phone: [facility] Work Phone: Start: 09-26-2022 End: 09-26-2022 ambulatory DO Maribeth Villafana Work Phone: [facility] Work Phone: Start: 09-11-2022 (Procedure) Short Maribeth Villafana [facility] Start: 09-11-2022 End: 09-11-2022 ambulatory Maribeth Villafana Other [employer] Other Start: 09-10-2022 End: 09-10-2022 ambulatory Maribeth Villafana Other [employer] Other Start: 09-10-2022 Telephone encounter Maribeth Mercer [facility] Start: 09-03-2022 End: 09-03-2022 ambulatory NARENDRANATH LAKSHMIPATHY . Facility:[facility] Start: 08-20-2022 End: 08-20-2022 ambulatory Maribeth Villafana Facility:[facility] Start: 08-20-2022 End: 08-20-2022 ambulatory DO Maribeth Villafana Work Phone: [facility] Work Phone: Start: 08-20-2022 End: 08-20-2022 Patient encounter procedure DO Maribeth Villafana Work Phone: [facility]-Physical Therapy [address] Start: 08-16-2022 End: 08-17-2022 ambulatory NARENDRANATH LAKSHMIPATHY . Facility:[facility]1 Start: 08-02-2022 End: 08-02-2022 ambulatory Maribeth Villafana Other [employer] Other Start: 08-02-2022 Telephone encounter Maribeth [facility] Start: 07-30-2022 End: 07-30-2022 ambulatory NARENDRANATH LAKSHMIPATHY . Facility:[facility]1 Start: 07-24-2022 End: 07-24-2022 ambulatory Igor Orr Other [employer] Other Start: 07-24-2022 Office outpatient ne w 30 minutes Igor Orr [facility] Start: 07-23-2022 End: 07-24-2022 ambulatory NARENDRANATH LAKSHMIPATHY . Facility:[facility] Start: 07-16-2022 End: 07-16-2022 ambulatory Maribeth Villafana Other [place] [employer] Other Start: 07-16-2022 Telephone encounter Maribeth [facility] Start: 07-15-2022 Office outpatient visit 25 minutes Maribeth Villafana [facility] Start: 07-15-2022 Telephone encounter Maribeth [facility] Start: 07-15-2022 End: 07-15-2022 ambulatory DO Maribeth Villafana Work Phone: [facility] [employer] Other Start: 07-15-2022 End: 07-15-2022 Patient encounter procedure DO Maribeth Villafana Work Phone: [facility]-X-[facility] Start: 07-12-2022 End: 07-12-2022 ambulatory Maribeth Villafana Facility:[facility] Start: 07-12-2022 Encounter for genera l adult medical examination without abnormal findings Maribeth Villafana [facility] Start: 07-12-2022 End: 07-12-2022 ambulatory DO Maribeth Villafana Work Phone: [facility] Work Phone: Start: 07-12-2022 End: 07-12-2022 Patient encounter procedure DO Maribeth Villafana Work Phone: [facility] [place] Work Phone: Start: 07-02-2022 End: 07-03-2022 ambulatory [...] 01-04-2022 End: 01-04-2022 ambulatory Maribeth Carolann Other [employer] Other Start: 01-04-2022 Encounter for genera l adult medical examination without abnormal findings Maribeth Villafana [facility] Start: 01-04-2022 Periodic preventive med est patient 40-64yrs Maribeth Villafana [facility] Start: 12-13-2021 End: 12-14-[address] JESSICA JOEL . Facility:[facility] Start: 10-31-2021 End: 11-01-[address] JESSICA JOEL . Facility:[facility] Start: 10-03-2021 End: 10-04-2021 ambulatory BRIT SCHUSTER . Facility:[facility] Start: 09-29-2021 End: 09-29-2021 ambulatory MARIBETH CAROLANN Facility:[facility] Start: 08-17-2021 End: 08-17-2021 ambulatory Charles Solares Other [employer] Other Start: 08-17-2021 Telephone encounter [facility] [place] Start: 08-07-2021 End: 08-07-2021 ambulatory Charles Solares Other [employer] Other Start: 08-07-2021 Telephone encounter [facility] Start: 07-13-2021 End: 07-13-2021 ambulatory Maribeth Carolann Other [employer] Other Start: 07-13-2021 Telephone encounter Maribeth Villafana [facility] Start: 07-09-2021 End: 07-09-2021 ambulatory Charles Hernandezer Other [employer] Other Start: 07-09-2021 Office outpatient visit 25 minutes Charles Felter [facility] [place] Start: 06-22-2021 End: 06-22-2021 ambulatory Maribeth Villafana Other [employer] Other Start: 06-22-2021 Office outpatient visit 15 minutes Maribeth Villafana [facility] Start: 06-06-2021 End: 06-06-2021 ambulatory Charles Hernandezer Other [employer] Other Start: 06-06-2021 Office outpatient visit 25 minutes Charles Hernandezer [facility] [place] Start: 05-29-2021 End: 05-29-2021 ambulatory Maribeth Villafana Other [employer] Other Start: 05-29-2021 Telephone encounter Maribeth [facility] Start: 05-22-2021 End: 05-22-2021 ambulatory Maribeth Villafana Other [employer] Other Start: 05-22-2021 Telephone encounter Maribeth [facility] Start: 05-21-2021 End: 05-21-2021 ambulatory Maribeth Villafana Other [employer] Other Start: 05-21-2021 Telephone encounter Maribeth Villafana [facility] Start: 05-08-2021 End: 05-08-2021 ambulatory Charles Hernandezer Other [employer] Other Start: 05-08-2021 Office outpatient visit 25 minutes Charles Hernandezer [facility] [place] Start: 04-12-2021 End: 04-12-2021 ambulatory Charles Hernandezer Other [employer] Other Start: 04-12-2021 Office outpatient visit 25 minutes Charles Solares [facility] [place] Start: 03-08-2021 End: 03-08-2021 ambulatory Charles Solares Other [employer] Other Start: 03-08-2021 Office outpatient visit 25 minutes Charles Solares [facility] [place] Start: 02-28-2021 End: 02-28-2021 ambulatory Maribeth Carolann Other [employer] Other Start: 02-28-2021 Telephone encounter Mar[facility]eth [facility] [place] Start: 02-12-2021 End: 02-12-2021 ambulatory Maribeth Carolann Other [employer] Other Start: 02-12-2021 Office outpatient visit 15 minutes Maribeth Villafana [facility] Start: 02-05-2021 Office outpatient visit 25 minutes Charles Solares [facility] [place] Start: 02-01-2021 Office outpatient visit 15 minutes Maribethwaldo Villafana [facility] Start: 01-08-2021 Office outpatient visit 25 minutes Charles Felter [facility] [place] Start: 06-09-2018 End: 06-10-2018 Patient encounter procedure PHI CADENASURENDRA [facility] Start: 04-01-2018 End: 04-01-2018 Emergency department patient visit Lashaycristóbal Hobsonz [place] Procedures Date Procedure Procedure Detail Performing Clinician Start: 09-26-2022 Colonoscopy DO Maribeth Villafana Work Phone: Start: 07-15-2022 Diagnostic radiograp hy of abdomen DO Maribeth Villafana Work Phone: Plan of Treatment Date Care Activity Detail Author Start: 09-26-2022 [facility] Patient Education Hemorrhoids (DC) [facility] Work Phone: Immunizations Immunization Date Immunization Notes Care Provider Macrina brunson 12-07-2020 COVID-19 Vaccine Corey - Documentation Purposes Only Charles Solares Other [employer] Other 03-25-2019 Depo-Medrol 80 mg Charles lewis Other [employer] Other 12-11-2017 Kenalog -40 mg Charles Solares Other [employer] Other Payers Date Payer Category Payer Self-pay [id number] 1980 Unknown [id number] 2.16.84 0.1.460534.3.579.2.727 1979 Unknown [id number] 2.16.84 0.1.655747.3.579.2.593 1979 Unknown [id number] 2.16.84 0.1.893214.3.579.2.593 1979 Unknown [id number] 2.16.84 0.1.035758.3.579.2.593 1979 Unknown [id number] 2.16.84 0.1.530331.3.579.2.593 1979 Unknown [id number] 2.16.84 0.1.769136.3.579.2.593 1979 Unknown [id number] 2.16.84 0.1.086441.3.579.2.593 1979 Unknown [id number] 2.16.84 0.1.738787.3.579.2.593 1979 Unknown [id number] 2.16.84 0.1.185168.3.579.2.593 1979 Unknown [id number] 2.16.84 0.1.114391.3.579.2.593 1979 Unknown [id number] 2.16.84 0.1.424995.3.579.2.593 1979 Unknown [id number] 2.16.84 0.1.823208.3.579.2.593 1979 Unknown [id number] 2.16.84 0.1.315087.3.579.2.593 1979 Unknown [id number] 2.16.84 0.1.337986.3.579.2.593 1979 Unknown [id number] 2.16.84 0.1.819243.3.579.2.593 1979 Unknown [id number] 2.16.84 0.1.205130.3.579.2.593 1979 Unknown [id number] 2.16.84 0.1.207100.3.579.2.593 1960 Medicaid [id number] 1959 Unknown [id number] 1959 Unknown [id number] [facility] [id number] 2.16.840.1.382959.19 Unknown [facility] [id number] Unknown [id number] 2.16.8 40.1.668886.3.579.2.531 Unknown [id number] 2.16.8 40.1.274877.3.579.2.531 Unknown [id number] 2.16.8 40.1.782647.3.579.2.531 Unknown [id number] 2.16.8 40.1.477853.3.579.2.531 Social History Date Type Detail Facility Unknown if ever smoked [employer] Other Sex Assigned At Sex Assigned At Bir th [employer] Other Start: 04-13-2019 Tobacco smoking status NHIS Smoker (finding) [facility] Start: 1980 Sex Assigned At Male F [facility] Start: 09-26-2022 Tobacco smoking status NHIS Current some day smoker [facility] Goals Date Patient Goal Desired Activity /State Clinical Notes 01-08-2021 to 03-13-2023 Note Date & Type Note Facility 03-13-2023 Evaluation note Encounter Date Diagnosis Assessment Notes Mar, Primary osteoarthritis of both first carpometacarpal joints (ICD-10 - M18.0) [employer] Other 11-01-2023 Evaluation note* Encounter Date Diagnosis Assessment Notes Treatment Notes Treatment Clinical Notes Feb, Primary hypertension (ICD-10 - I10) [employer] Other 10-13-2023 Evaluation note* Encounter Date Diagnosis [...] screening testing or examinations at this time. 13 Jan, 2023 Lumbar degenerative disc disease (ICD-10 - M51.36) Jan, Lipid disorder (ICD-10 - E78.9) Jan, Chronic, continuous use of opioids (ICD-10 - F11.90) Jan, Primary hypertension (ICD-10 - I10) Jan, Erectile dysfunction due to diseases classified elsewhere (ICD-10 - N52.1) Jan, Screening for prostate cancer (ICD-10 - Z12.5) Jan, Medication monitoring encounter (ICD-10 - Z51.81) [employer] Other 09-13-2023 Evaluation note* Encounter Date Diagnosis Assessment Notes Treatment Notes Treatment Clinical Notes Dec, Primary osteoarthrit is of first carpometacarpal joint of left hand (ICD-10 - M18.12) [employer] Other 09-07-2023 Evaluation note* Encounter Date Diagnosis [...] he has any issues with the medicine. [employer] Other 06-22-2023 Procedure [facility]06-07-2023 Evaluation note* Encounter Date Diagnosis Assessment Notes Treatment Notes Treatment Clinical Notes Sep, Primary osteoarthrit is of both first carpometacarpal joints (ICD-10 - M18.0) [employer] Other 04-19-2023 Evaluation note* Encounter Date Diagnosis [...] colonoscopy to rule out luminal etiologies made [employer] Other 04-18-2023 NoteCONSULTATION CONSULTATION DATE: 07/23/2022 TO: [...] our patients to inform us about any fhwe-mhb-hdgdvev medications or herbal remedies/nutritional supplements/alternative remedies. 2. [...] treatment options with their primary care provider.[facility]Oqutrlsq93-15-0064 Evaluation note * Encounter Date Diagnosis Assessment Notes Treatment Notes Treatment Clinical Notes Jul, Generalized abdominal pain (ICD-10 - R10.84) [employer] Other 04-10-2023 Evaluation note* Encounter Date Diagnosis [...] Jul, Medication monitoring encounter (ICD-10 - Z51.81) [employer] Other 04-10-2023 Evaluation note* Encounter Date Diagnosis Assessment Notes Treatment Notes Treatment Clinical Notes Jul, Slow transit constipation (ICD-10 - K59.01) [employer] Other 03-28-2023 NoteCONSULTATION CONSULTATION DATE: 07/02/2022 TO: Dr. Villafana CHIEF COMPLAINT: Includes severe bilateral lower back [...] as well as his lumbar spine films.[facility] [id number] Note CONSULTATION CONSULTATION DATE: 06/13/2022 HISTORY OF [...] relief. He has been seen both at [place] and [facility] in the past, and received [...] under the care of Dr. Joshua in [place]. He is unwilling to try Lyrica due [...] Patient is in agreement to this plan.[facility] HospitalWcaqqsgt51-97-5746 NoteCONSULTATION CONSULTATION DATE: 03/14/2022 HISTORY OF PRESENT [...] in three months' time, unless otherwise indicated.[facility] HospitalNsqczgqm41-90-7789 NoteCONSULTATION CONSULTATION DATE: 02/07/2022 HISTORY OF PRESENT [...] followed up in the office post procedure.[facility] HospitalXxbucyzx23-08-2158 Evaluation note* Encounter Date Diagnosis Assessment Notes [...] Dec, Prostate cancer screening (ICD-10 - Z12.5) [employer] Other 09-08-2022 NoteCONSULTATION CONSULTATION DATE: 12/13/2021 HISTORY [...] of care and all questions were answered.[facility] HospitalBifnjddi50-54-0197 Note CONSULTATION PROCEDURE DATE: 10/31/2021 PREOPERATIVE DIAGNOSIS: [...] will be followed up in the office.[facility] HospitalLgevyrsb04-94-3833 Note CONSULTATION CONSULTATION DATE: 10/03/2021 This is [...] and will be seen in the clinic. [facility] Signed and Approved by: BRIT SCHUSTER . 10/11/2021 16:28:00[facility]04-04-2022 Evaluation note* Encounter Date Diagnosis Assessment Notes [...] in this. Patient notes prior issues with [facility] billing department and states he is uncomfortable [...] note writ ten by Km Cervantes MA, Blower Operator. Edited and approved by Dr. Charles Solares MD. [employer] Other 03-18-2022 Evaluation note* Encounter Date Diagnosis [...] and he is to continue with it. [employer] Other 03-02-2022 Evaluation note* Encounter Date Diagnosis [...] note writ ten by Km Cervantes CMA, Blower Operator. Edited and approved by Dr. Charles Solares MD. 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 Saliva sample performed through [employer] lab today, will await confirmatory results. Opiod contract updated at this time. May, Other chronic pain (ICD-10 - G89.29) May, Other Above note writ ten by Sonya Dawson LPN, Blower Operator. Edited and approved by Dr. Charles Solares MD. [employer] Other 01-06-2022 Evaluation note* Encounter Date Diagnosis [...] note writ ten by Km Cervantes CMA, Blower Operator. Edited and approved by Dr. Charles Solares MD. [place] [employer] Other 12-02-2021 Evaluation note* Encounter Date Diagnosis [...] Above note written by Sonya Dawson LPN, Blower Operator. Edited and approved by Dr. Charles Solares MD. [employer] Other 11-08-2021 Evaluation note* Encounter Date Diagnosis [...] Patient voiced understanding agrees with this plan. [employer] Other 11-01-2021 Evaluation note* Encounter Date Diagnosis [...] with benefit. Most recent visit with Dr. Villafana the patient expressed frustration that pain managment [...] was having a bad day with Dr. Villafana and is not interested in this at [...] note writ ten by Donita Henson CMA, Blower Operator. Edited and approved by Dr. Charles Solares MD. [employer] Other 10-28-2021 Evaluation note* Encounter Date Diagnosis [...] message to Dr. Solares passing this along. 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 He understands the associated risks with this medication and agrees that it provides reasonable benefit in regards to his pain control and level of function. Oxycodone Acetaminophen was refilled today. Jan, Other chronic pain (ICD-10 - G89.29) [employer] Other Evaluation noteNo InformationNortEncompass Health Rehabilitation [facility] [employer] Other Evaluation noteNo assessment information available [facility] Work Phone: History and physical note Author Nash Cardenas [facility] September 26, 2022 9:39am Note Date/Time September 26, 2022 9:39 am [facility] [address] [place] [address] Gastroenterology H&P Signed Patient: Neal Irene MR#: [id number] : 1980 Acct:[id number] Age/Sex: 41 / M Adm Date: 3 Loc: Room: Type: [facility] Attending Dr: Nash Cardenas MD Copies to: MD Maribeth Mcdermott DO~ Date of Service: 09/26/2022 HISTORY & PHYSICAL: [...] Cardenas MD Documented By: Nash Cardenas MD 09/26/2221 Signed By: <Electronically signed by Nash Cardenas MD> 09/26/2255 [facility] Work Phone: History general Narrative - Reported* Type Description Date Medical History Hx spinal fusion Medical History Lumbar radiculopathy Medical History Trigger point Surgical History L5 S1 fusion 2014 Surgical History Left lower leg surgery (multipl e fractures) Surgical History foreign body excision right mid dle finger Hospitalization History pneumonia as child [employer] Other History general Narrative - Reported* Type Description Date Medical History Hx spinal fusion Medical History Lumbar radiculopathy Medical History Trigger point Surgical History L5 S1 fusion 2014 Surgical History Left lower leg surgery (multipl e fractures) Surgical History foreign body excision right mid dle finger Surgical History lumbar facet nerve b lock injection - Dr. Saldivar in [place] PM 11/2022 Hospitalization History pneumonia as child [employer] Other History general Narrative - Reported* Type Description Date Medical History Hx spinal fusion Medical History Lumbar radiculopathy Medical History Trigger point Surgical History L5 S1 fusion 2014 Surgical History Left lower leg surgery (multipl e fractures) Surgical History foreign body excision right mid dle finger Surgical History lumbar facet nerve b lock injection - Dr. Saldivar in [place] 11/2022 Surgical History R side nerve ablation 01/2023 Hospitalization History pneumonia as child [employer] Other Hospital Discharge instructions Additional Instructions DISCHARGE [...] NOT operate machinery such as power tools, [employer] mowers, [employer], sewing machines, etc. for 24 hours. - [...] years. -Follow up with PCP. -Office number [phone].[facility] Work Phone: Rextxl for visit NarrativePatient here at the request of Dr. Villafana for evaluation & treatment of abdominal pain, change in bowel habits, weight loss, rectal bleeding.[employer] Other Rekvgj for visit NarrativeProcedure appt and DNR-A signNort [employer] Other Summary Purpose Family History Relationship Condition Age at Onset Recorded Date/T lorri brother Gout Unknown Relationship Condition Age at Onset Recorded Date/T lorri brother Gout Unknown Diabetes mellitus Unknown Advance Directives Advance Directive Response Recorded Date/ Time Advance Directives No December 4:24pm Reason for Referral Reason Dr. Villanueva to [facility] surgical options, steroid injections not providing long lasting benefit Diagnosis 1 Primary osteoarthrit is of both first carpometacarpal joints (M18.0) Referral Organization [facility] Family Nisha Santos Referring Provider First Name Maribeth Referring Provider Last Name Carolann Referring Provider Specialty Family Prac patito Referred Organization [facility] Referred Address [address] [place],[address] Referred Provider Specialty ORTHOPEDIC S URGEON Referral Priority Routine Reason * Waiting for appt CT and KUB normal, generalized pain of unclear etiology Diagnosis 1 Generalized abdomina l pain (R10.84) Referral Organization [facility] Family Nisha Santos Referring Provider First Name Maribeth Referring Provider Last Name Carolann Referring Provider Specialty Family Prac patito Referred Organization [facility] Gastroenterolo gy Referred Provider Dwayne Salas Referred Address [address],[facility] [address] ,[place], [place],[address] Referred Provider Specialty Gastroentero logy Referral Priority Routine General Notes Rebeca Vviar 02/2023 03:53:02 PM >referral received and sent [...] continuous use of opioids (F11.90) Referral Organization [facility] Nisha Santos Referring Provider First Name Maribeth Referring Provider Last Name Carolann Referring Provider Specialty Family Prac patito Referred Organization [facility] Referred Address [address],[facility] [place],[address] Referred Provider Specialty Pain Medicin e Referral Priority Routine General Notes Rebeca Vivar 11:08:53 AM >referral received and faxed Clinical Notes P- [phone] Chief Complaint and Reason for Visit Chief [...] section and content) DATE CREATED AUTHOR 05/25/2018 [facility] DATE CREATED AUTHOR AUTHOR'S ORGANIZ ATION 06/11/[address] [facility] DATE CREATED AUTHOR AUTHOR'S ORGANIZ ATION 09/15/2022 [facility] DATE CREATED AUTHOR AUTHOR'S ORGANIZ ATION 10/04/2022 [facility] REASON FOR VISIT (unrecogniz ed section and content) 1 MOback pain getting worse, pain management not working4 WK RECHECKDISCUSS DISABILITY OPTIONSLab results1 MO1 MONTH RECHECKCHANTIX1 month Follow upscript requestpaperwork1 MONTH FOLLOW UPCHANTIX refill/discuss back concerns1 MONTHNo InformationNo InformationPROCEDURE NOTES1 year Follow up/ AWVAbdominal Pain/ incontinencenew medication.ReferralPain ManagementB/L thumb steroid inj./ sign DNR-AORDERS PER DR Casanovaated bpelevated BP at PM in [place], no sxinjection L thumb1 year Follow upLosartan/HCTZsteroid injection Care Teams (unrecognized sec tion and content) Team Status: Active Member Role Status Dates Maribeth Villafana , DO Primary Care Provider Active Team Status: Inactive Member Role Status Dates Maribeth Villafana , DO Primary Care Provider, Attending Provider Active Team Status: Inactive Member Role Status Dates Maribeth Villafana , DO Primary Care Provider Active Nash [...] BE BASED ON THE PRIMARY CLINICAL RECORDS. [employer] [facility]. provides no warranty or guarantee of the accuracy or completeness of information in this document.
[2023-07-08 07:21] VITALS: BP 152/96; PULSE 107; TEMP 36.9; O2SAT 97
[2023-07-08 08:00] VITALS: PULSE 98; O2SAT 96
[2023-07-08 08:02] VITALS: BP 137/85; BP 148/83; PULSE 101; O2SAT 96
[2023-07-08] MEDS: BUPIVACAINE HCL 0.25% PF 25 MG/10 ML VIAL 5 ML INJ (08:12)
--- NOTE | 2023-07-08 08:24 | W.PM.PROCNOT ---
Date of procedure: 07/08/23 Pre-op diagnosis: THORACIC SPONDYLOSIS Post-op diagnosis: same as pre-op Procedure: Bilateral Thoracic 4/5, 5/6 medial branch block Under fluoroscopic guidance Solution injected: [id number] 0.25% Anesthesia :none Immediate complications none Time out process compliant After informed consent obtained from the patient placed in the Prone proposition . area was prepped and draped in a sterile fashion using Cloraprep .25 gauge spinal needle inserted over each of the above mentioned target areas . [place] were directed towards the target under fluoroscopic guidance . after encountering each of the targets , no indication of intravascular intraneuronal or intrathecal needle tip placement. Then 0 .5 to 1 Milliliter was injected at each level. Georges Mills removed postoperatively. patient transferred to recovery in stable condition to be discharged home after meeting criteria Anesthesia: Local Surgeon: Mindy Manning Condition: stable
== END 2023-07-08 08:16 | disposition home or self-care (01) ==
LOC: SURGOUT 07:10
PROVIDERS: Visit Provider Anesthesiology Pain Medicine
DX: M47.814 Spondylosis without myelopathy or radiculopathy, thoracic region (principal)
CPT/HCPCS: 64490; 64491

== ENCOUNTER 2023-07-17 08:35 | Outpatient (OUT) | payer OTHER, SELFPAY ==
--- OUTSIDE RECORDS SUMMARY | 2023-07-17 09:00 | XMS_ITS | CCD ---
Author Organization [facility] Care Team Providers Care Route Service Manager Name Role Phone Lashay Li Admitting Unavailable [...] gabapentin Drug Allergy 3 dizziness, sleepy, Drowsy [facility] (1 source) gabapentin Drug Allergy [facility] Repository (9 sources) zonisamide Drug Allergy [address] [facility] (1 source) gabapentin Drug Allergy [address] [facility] Repository (1 source) zonisamide Drug Allergy [address] [facility] Repository Medications Current Medications Medication Drug [...] day(s) Jun, Active take 1 capsule by [facility] every twenty-four hours Cymbalta 60 MG 1 [...] Active Start: 12-12-2022 take 1 tablet by [facility] once daily Losartan Potassium-HCTZ 50-12.5 MG 1 [...] Once a day Active polyethylene glycol 3350 929264 mg / potassium chloride 2970 mg / sodium bicarbonate 6740 mg / sodium chloride 5860 mg / sodium sulfate 28977 mg powder for oral solution (6 sources) [...] for 7 days PRN Feb, Active sennosides, [facility] 8.6 mg oral tablet (16 sources) Start: [...] 07-12-2022 Episodic Other aftercare (1 source) Other [facility] (current) drug therapy; 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 Comment on above: Order Comment: Reaso n for Exam Generalized abdominal pain;Slow transit constipation;Medicat Reason for Exam Generalized abdominal pain;Medication monitoring encounter NOT FASTING. JKW Performed By: #### C BC, POOJA, LIPASE #### [address] Amylase 43 U/L Normal 29-103 U/L [facility] Other Amylase [Enzymatic activity/ volume] in Serum or PlasmaOrdered By: Maribeth Villafana on 07-15-2022 Amylase [Catalytic activity/Vol] 43 U/L 29-[address] [facility] Basophils Auto (Bld) [#/Vol] Ordered By: Maribeth Villafana on 07-15-2022 Basophils (Bld) [#/Vol] 0.0 10*3/uL 0.0-0.[address] [facility] Basophils/100 WBC Auto (Bld) Ordered By: Maribeth Villafana on 07-15-2022 Basophils/100 WBC (Bld) 0.5 % . F [facility] CBC W MANUAL DIFFon 07-16-19 23 ATYPICAL LYMPH # Normal [facility] Comment on above: Performed By: #### C JEAN ####[facility] [address] [place] [id number]. Keylan David ATYPICAL LYMPH % Normal [facility] Comment on above: Performed By: #### C JEAN ####[facility] [address]nbuecfcxg[address] [place] [id number]. Yilan David BAND # 0.1 103/ul Normal 0.0-0.3 [facility] Comment on above: Performed By: #### C JEAN ####[facility] [address] [place] [address]Dr. Yilan David BAND % 1 % Normal 0-5 [facility] Comment on above: Performed By: #### C JEAN ####[facility] [address]ymwgsaop[address] [place] [address]Dr. Sydney David BASOM # 0.00 103/ul Normal 0.00-0.10 [facility] Comment on above: Performed By: #### C JEAN ####[facility] [address]wkzemw[address] [place] [address]Dr. Sydney David BASOM % 0.0 % Critically low 0.2-2.0 [facility] Comment on above: Performed By: #### C JEAN ####[facility] Ifklfnzckf[address] [place] [address]Dr. Yimera David BLAST # Normal [facility] Comment on above: Performed By: #### C JEAN ####[facility] Ff[address]pfbf[address] [place] [address]Dr. Yilan David BLAST % Normal [facility] Comment on above: Performed By: #### C JEAN ####[facility] [address]vqva[address] [place] [address]Dr. Sydney David CORRECTED WBC Normal 4.0-11.0 [facility] Comment on above: Performed By: #### C JEAN ####[facility] Wu[address]xdzxa[address] [place] [address]Dr. Yilan David EOS # 0.24 103/ul Normal 0.00-0.70 [facility] Comment on above: Performed By: #### C JEAN ####[facility] [address]qscltlmcf[address] [place] [id number]. Sydney David EOS% 3.0 % Normal 0.9-7.0 [facility] Comment on above: Performed By: #### C JEAN ####[facility] Whkoadixmb[address] [place] [phone]. Sydney David HCT 46.4 % Normal 42.0-54.0 [facility] Comment on above: Performed By: #### C JEAN ####[facility] [address]uxjcrysif[address] [place] [phone]. Sydney David HGB 15.4 g/dl Normal 14.0-18.0 [facility] Comment on above: Performed By: #### C JEAN ####[facility] Plmplsikdb3[address] [place] [phone]. Sydney David LYMPHM # 3.36 103/ul Normal 1.20-3.80 [facility] Comment on above: Performed By: #### C JEAN ####[facility] Fmcpzgepaf24[address] [place] [id number]. Sydney David LYMPHM% 42.0 % Normal 20.5-60.0 [facility] Comment on above: Performed By: #### C JEAN ####[facility] Xepfzuynzh[address] [place] [id number]. Sydney David MCH 30.3 pg Normal 25.9-34.0 [facility] Comment on above: Performed By: #### C JEAN ####[facility] [address]bevjradna[address] [place] [id number]. Sydney David MCHC 33.2 g/dl Normal 29.9-35.2 [facility] Comment on above: Performed By: #### C JEAN ####[facility] Bytbjqedeo67[address] [place] [id number]. Sydney David MCV 91.3 fL Normal 80.0-94.0 [facility] Comment on above: Performed By: #### C JEAN ####[facility] Mwsdxkfgdh4[address] [place] [id number]. Sydney David METAMYELOCYTE # Normal [facility] Comment on above: Performed By: #### C BCMAN ####[facility] Bqhcvxwgbi84[address] [place] [phone]. Sydney David METAMYELOCYTE % Normal [facility] Comment on above: Performed By: #### C BCDOLORES ####[facility] Cqohlheksu4[address] [place] [id number]. Sydney David MONOM# 0.80 103/ul Normal 0.30-0.80 [facility] Comment on above: Performed By: #### C JEAN ####[facility] [address] [place], [place] [address]Dr. Sydney David MONOM% 10.0 % Normal 1.7-12.0 [facility] Comment on above: Performed By: #### C JEAN ####[facility] C[address]arj[address]fo[address] [place], [place] [address]Dr. Sydney David MPV 11.8 fL Normal 9.5-13.5 [facility] Comment on above: Performed By: #### C JEAN ####[facility] V[address] [place], [place] [address]Dr. Sydney David MYELOCYTE # Normal [facility] Comment on above: Performed By: #### C JEAN ####[facility] [address]wh[address] [place], [place] [address]Dr. Sydney David MYELOCYTE % Normal [facility] Comment on above: Performed By: #### C BCDOLORES ####[facility] Tqpngsld[address] [place], [place] [address]Dr. Sydney David NRBC Normal [facility] Comment on above: Performed By: #### C JEAN ####[facility] [address]aiilkz[address] [place], [place] [address]Dr. Sydney David PLT 249 103/ul Normal 150-450 [facility] Comment on above: Performed By: #### C JEAN ####[facility] [address] [place], [place] [address]Dr. Sydney David RBC 5.08 106/ul Normal 4.70-6.10 [facility] Comment on above: Performed By: #### C BCMAN ####[facility] Bjkamvjapb1764 [place], [place] [address]Eq. Sydney David RDW 13.1 % Normal 11.0-15.0 [facility] Comment on above: Performed By: #### C BCMAN ####[facility] Ktmusgtocn1027 [place], [place] [address]Bn. Sydney David SEG # 3.52 103/ul Normal 1.40-6.50 [facility] Comment on above: Performed By: #### C BCMAN ####[facility] Rlaxdhnpri4825 [place], [place] [address]Rm. Sydney David SEG % 44.0 % Normal 43.0-75.0 [facility] Comment on above: Performed By: #### C BCMAN ####[facility] Jmxcxdavcd9135 [place], [place] [address]Fg. Sydney David WBC 8.0 103/ul Normal 4.0-11.0 [facility] Comment on above: Performed By: #### C BCMAN ####[facility] Rswodxoqqg1516 [place], [place] [address]. [address] David [address] ABD/PELV W CONon 07-16-19 [...] EVANGELIST LEOS Date: 2022-07-15 16:53 Normal [facility] Complete Blood Count Auto Di ffon 07-15-2022 Basophils (Bld) [#/Vol] 0.0 10*3/uL Normal 0.0-0.[address] [facility] Comment on above: Order Comment: Reaso n for Exam Medication monitoring encounter Result Comment: PERF ORMED BY: [place] [address] PATHOLOGIST WATCH AND CLOCK REPAIR CLERK ALEM GARCIA M.D. Performed By: #### C BC, POOJA, LIPASE #### [address] Basophils/100 WBC (Bld) 0.5 % Normal . [facility] Comment on above: Order Comment: Reaso n for Exam Medication monitoring encounter Performed By: #### C BC, POOJA, LIPASE #### [address] Eosinophils (Bld) [#/Vol] 0.6 10*3/uL High 0.0-0.[address] [facility] Comment on above: Order Comment: Reaso n for Exam Medication monitoring encounter Performed By: #### C BC, POOJA, LIPASE #### [address] Eosinophils/100 WBC (Bld) 6.1 % Normal . [facility] Comment on above: Order Comment: Reaso n for Exam Medication monitoring encounter Performed By: #### C BC, POOJA, LIPASE #### [address] Erythrocyte distribution width (RBC) [Ratio] 13.6 % Normal 12.0-14.[address] [facility] Comment on above: Order Comment: Reaso n for Exam Medication monitoring encounter Performed By: #### C BC, POOJA, LIPASE #### [address] Hematocrit (Bld) [Volume fraction] 47.4 % Normal 38.8-50.[address] [facility] Comment on above: Order Comment: Reaso n for Exam Medication monitoring encounter Performed By: #### C BC, POOJA, LIPASE #### [address] Hemoglobin (Bld) [Mass/Vol] 15.5 g/dL Normal 13.0-17.[address] [facility] Comment on above: Order Comment: Reaso n for Exam Medication monitoring encounter Performed By: #### C BC, POOJA, LIPASE #### [address] Lymphocytes (Bld) [#/Vol] 4.3 10*3/uL Normal 1.00-4.[address] [facility] Comment on above: Order Comment: Reaso n for Exam Medication monitoring encounter Performed By: #### C BC, POOJA, LIPASE #### [address] Lymphocytes/100 WBC (Bld) 46.5 % Normal . [facility] Comment on above: Order Comment: Reaso n for Exam Medication monitoring encounter Performed By: #### C BC, POOJA, LIPASE #### [address] MCH (RBC) [Entitic mass] 30.2 pg Normal 27.5-35.[address] [facility] Comment on above: Order Comment: Reaso n for Exam Medication monitoring encounter Performed By: #### C BC, POOJA, LIPASE #### [address] MCV (RBC) [Entitic vol] 92.3 fL Normal 83.5-101 F [facility] Comment on above: Order Comment: Reaso n for Exam Medication monitoring encounter Performed By: #### C BC, POOJA, LIPASE #### [address] Mean Corpuscular HGB Conc 32.7 g/dL Normal 32.5-35.[address] [facility] Comment on above: Order Comment: Reaso n for Exam Medication monitoring encounter Performed By: #### C BC, POOJA, LIPASE #### [facility] [address] Monocytes (Bld) [#/Vol] 0.8 10*3/uL Normal 0.0-0.[address] [facility] Comment on above: Order Comment: Reaso n for Exam Medication monitoring encounter Performed By: #### C BC, POOJA, LIPASE #### [facility] [address] [place] [address] Monocytes/100 WBC (Bld) 8.3 % Normal . [facility] Comment on above: Order Comment: Reaso n for Exam Medication monitoring encounter Performed By: #### C BC, POOJA, LIPASE #### [facility] [address] [place] [address] Neutrophils (Bld) [#/Vol] 3.6 10*3/uL Normal 1.8-7.[address] [facility] Comment on above: Order Comment: Reaso n for Exam Medication monitoring encounter Performed By: #### C BC, POOJA, LIPASE #### [facility] [address] [place] [address] Neutrophils/100 WBC (Bld) 38.6 % Normal . [facility] Comment on above: Order Comment: Reaso n for Exam Medication monitoring encounter Performed By: #### C BC, POOJA, LIPASE #### [facility] [address] [place] [address] NRBC% 0.0 /100{WBC} Normal 0-0.[address] [facility] Comment on above: Order Comment: Reaso n for Exam Medication monitoring encounter Performed By: #### C BC, POOJA, LIPASE #### [facility] [address] [place] [address] [place] Platelet mean volume (Bld) [Entitic vol] 11.1 fL High 6.6-10.[address] [facility] Comment on above: Order Comment: Reaso n for Exam Medication monitoring encounter Performed By: #### C BC, POOJA, LIPASE #### [address] [place] [address] RUST WBC (Bld) [#/Vol] 9.2 10*3/uL Normal 4.1-10.5 [facility] Comment on above: Order Comment: Reaso n for Exam Medication monitoring encounter Performed By: #### C BC, POOJA, LIPASE #### [facility] [address] [place] [address] RUST Basophils (Bld) [#/Vol] 0.058065826 10*3/uL Normal 0.0-0.2 10*3/uL [facility] Other Basophils/100 WBC (Bld) 0.500 % . % N [employer] Other Eosinophils (Bld) [#/Vol] 0.970783924 10*3/uL High 0.0-0.45 10*3/uL [facility] Other Eosinophils/100 WBC (Bld) 6.100 % . % [facility] Other Erythrocyte distribution width (RBC) [Ratio] 13.600 % Normal 12.0-14.8 % [facility] Other Hematocrit (Bld) [Volume fraction] 47.400 % Normal 38.8-50.0 % [facility] Other Hemoglobin (Bld) [Mass/Vol] 15.903610 g/dL Normal 13.0-17.0 g/dL [facility] Other Lymphocytes (Bld) [#/Vol] 4.134432408 10*3/uL Normal 1.00-4.8 10*3/uL [facility] Other Lymphocytes/100 WBC (Bld) 46.500 % . % [facility] Other MCH (RBC) [Entitic mass] 30.2000 pg Normal 27.5-35.2 pg [facility] Other MCV (RBC) [Entitic vol] 92.3000 fL Normal 83.5-101 fL [facility] Other Monocytes (Bld) [#/Vol] 0.442626652 10*3/uL Normal 0.0-0.8 10*3/uL [facility] Other Monocytes/100 WBC (Bld) 8.300 % . % [employer] Other Neutrophils (Bld) [#/Vol] 3.378519911 10*3/uL Normal 1.8-7.7 10*3/uL [facility] Other Neutrophils/100 WBC (Bld) 38.600 % . % [facility] Other Platelet mean volume (Bld) [Entitic vol] 11.1000 fL High 6.6-10.1 fL [facility] Other WBC (Bld) [#/Vol] 9.866651022 10*3/uL Normal 4.1 -10.5 10*3/uL [facility] Other Complete Blood Count Auto Diff 9.2 10*3/uL Normal 4.1-10.5 10*3/uL [facility] Other Complete Blood Count Auto Diff 32.7 g/dL Normal 32.5-35.6 g/dL [facility] Other Complete Blood Count Auto Diff 0.0 /100{WBC} Normal 0-0.5 /100{WBC} [facility] Other Complete Blood Count Auto Di ffOrdered By: Maribeth Villafana on 07-15-2022 Platelets (Bld) [#/Vol] 236 10*3/uL Normal 150-[address] [facility] Comment on above: Order Comment: Reaso n for Exam Medication monitoring encounter Performed By: #### C BC, POOJA, LIPASE #### [facility] [address] [place] [address] RBC (Bld) [#/Vol] 5.13 10*6/uL Normal 3.90-5.60 [facility] Comment on above: Order Comment: Reaso n for Exam Medication monitoring encounter Performed By: #### C BC, OPOJA, LIPASE #### [facility] [address] ER URINE PROFILEon 3 Bilirubin Ql (U) Negative Normal NEGATIVE [facility] Comment on above: Performed By: #### E RUR ####[facility] [address] [place] [address]Dr. Sydney David Clarity (U) CLEAR Normal CLEAR [facility] Comment on above: Performed By: #### E RUR ####[facility] [address] [place], [place] [address]Dr. Yilan David Color (U) LT. YELLOW Normal YELLOW [facility] Comment on above: Performed By: #### E RUR ####[facility] [address]abef[address]okb[address] [place], [place] [address]Dr. Sydney David ERUAHD A micrscopic examination will be performed if indicated. Normal [facility] Comment on above: Performed By: #### E RUR ####[facility] Rrqxxnxqvc[address] [place], [place] [address]Dr. Yilan David Glucose Ql (U) Negative Normal NEGATIVE [facility] Comment on above: Performed By: #### E RUR ####[facility] [address]ht[address] [place] [address]Dr. Yilan David Hemoglobin Ql (U) Negative Normal NEGATIVE [facility] Comment on above: Performed By: #### E RUR ####[facility] [address]tjdzhj[address] [place] [address]Dr. Yilan David Ketones Ql (U) Negative Normal NEGATIVE [facility] Comment on above: Performed By: #### E RUR ####[facility] Dfgttegusx[address] [place], [place] [address]Dr. Yilan David LEUKOCYTES Negative Normal NEGATIVE [facility] Comment on above: Performed By: #### E RUR ####[facility] Mfqbwaxsqk[address] [place], [place] [address]Dr. Yilan David Nitrite Ql (U) Negative Normal NEGATIVE [facility] Comment on above: Performed By: #### E RUR ####[facility] Mnsenzatsg[address] [place] [address]Dr. Sydney David pH (U) 5.5 [pH] Normal 5-9 [facility] Comment on above: Performed By: #### E RUR ####[facility] Aaxvjq[address]zb[address] [place] [address]Dr. Sydney Frankie SPEC GRAVITY 1.010 Normal 1.005-<=1.[address] [place] [address] Comment on above: Performed By: #### E RUR ####[facility] Tqlunn[address]wec[address] [place] [address]Dr. Sydney David UA PROTEIN Negative Normal NEGATIVE/ TRACE [facility] Comment on above: Performed By: #### E RUR ####[facility] Ddajdxcjpr[address] [place], [place] [address]Dr. Sydney David UR MICRO IND NOT INDICATED Normal [facility] Comment on above: Performed By: #### E RUR ####[facility] [address]ocsmsjz[address] [place] [address]Dr. Sydney Frankie Urobilinogen Qn (U) 0.2 {Johan'U}/dL Normal 0.2 - 1. 0 [facility] Comment on above: Performed By: #### E RUR ####[facility] Wrimuzlete[address] [place], [place] [address]Dr. Sydney David Eosinophils Auto (Bld) [#/Vo l]Ordered By: Maribeth Villafana on 07-15-2022 Eosinophils (Bld) [#/Vol] 0.6 10*3/uL 0.0-0.[address] [facility] Eosinophils/100 WBC Auto (Bl d)Ordered By: Maribeth Villafana on 07-15-2022 Eosinophils/100 WBC (Bld) 6.1 % . [facility] Erythrocyte distribution wid th Auto (RBC) [Ratio]Ordered By: Maribeth Villafana on 07-15-2022 Erythrocyte distribution width (RBC) [Ratio] 13.6 % 12.0-14.[address] [facility] Hematocrit Auto (Bld) [Volum e fraction]Ordered By: Maribeth Villafana on 07-15-2022 Hematocrit (Bld) [Volume fraction] 47.4 % 38.8-50.[address] [facility] Hemoglobin [Mass/volume] in BloodOrdered By: Maribeth Villafana on 07-15-2022 Hemoglobin (Bld) [Mass/Vol] 15.5 g/dL 13.0-17.[address] [facility] Leukocytes [#/volume] correc gris for nucleated erythrocytes in Blood by Automated counOrdered By: Maribeth Villafana on 07-15-2022 WBC corrected for nucl RBC Auto (Bld) [#/Vol] 9.2 10*3/uL 4.1-10.[address] [facility] Lipaseon 07-15-2022 Lipase [Catalytic activity/Vol] 80.0 U/L Normal 11.0-82.[address] [facility] Comment on above: Order Comment: Reaso n for Exam Generalized abdominal pain;Slow transit constipation;Medicat Reason for Exam Generalized abdominal pain;Medication monitoring encounter NOT FASTING. JKW Result Comment: PERF ORMED BY: [place] [address] PATHOLOGIST WATCH AND CLOCK REPAIR CLERK ALEM GARCIA M.D. Performed By: #### C BC, POOJA, LIPASE #### [address] Lipase [Catalytic activity/Vol] 80.25481 U/L Normal 11.0-82.0 U/L [facility] Other Lipase [Enzymatic activity/v olume] in Serum or PlasmaOrdered By: Maribeth Villafana on 07-15-2022 Lipase [Catalytic activity/Vol] 80.0 U/L 11.0-82.[address] [facility] Lymphocytes Auto (Bld) [#/Vo l]Ordered By: Maribeth Villafana on 07-15-2022 Lymphocytes (Bld) [#/Vol] 4.3 10*3/uL 1.00-4.[address] [facility] Lymphocytes/100 WBC Auto (Bl d)Ordered By: Maribeth Villafana on 07-15-2022 Lymphocytes/100 WBC (Bld) 46.5 % . [facility] MCH Auto (RBC) [Entitic mass ]Ordered By: Maribeth Villafana on 07-15-2022 MCH (RBC) [Entitic mass] 30.2 pg 27.5-35.[address] [facility] MCHC Auto (RBC) [Mass/Vol]Or dered By: Maribeth Villafana on 07-15-2022 MCHC (RBC) [Mass/Vol] 32.7 g/dL 32.5-35.6 [facility] MCV Auto (RBC) [Entitic vol] Ordered By: Maribeth Villafana on 07-15-2022 MCV (RBC) [Entitic vol] 92.3 fL 83.5-101 F [facility] Monocytes Auto (Bld) [#/Vol] Ordered By: Maribeth Villafana on 07-15-2022 Monocytes (Bld) [#/Vol] 0.8 10*3/uL 0.0-0.[address] [facility] Monocytes/100 WBC Auto (Bld) Ordered By: Maribeth Villafana on 07-15-2022 Monocytes/100 WBC (Bld) 8.3 % . F [facility] Neutrophils Auto (Bld) [#/Vo l]Ordered By: Maribeth Villafana on 07-15-2022 Neutrophils (Bld) [#/Vol] 3.6 10*3/uL 1.8-7.[address] [facility] Neutrophils/100 WBC Auto (Bl d)Ordered By: Maribeth Villafana on 07-15-2022 Neutrophils/100 WBC (Bld) 38.6 % . [facility] Nucleated erythrocytes [Pres ence] in Blood by Automated countOrdered By: Maribeth Villafana on 07-15-2022 Nucleated RBC Auto Ql (Bld) 0.0 /100{WBC} 0-0.[address] [facility] PROF CHEM 8 (BAS METB)on Anion gap [Moles/Vol] 13.3 mmol/L Normal [facility] Comment on above: Performed By: #### B MP #### [facility] [address] [place] [address] [address] Sydney David Calcium [Mass/Vol] 9.1 mg/dL Normal 8.5-10.1 [facility] Comment on above: Performed By: #### B MP #### [facility] [address] [place] [address] [address] Sydney David Chloride [Moles/Vol] 102 mmol/L Normal 98-107 [facility] Comment on above: Performed By: #### B MP #### [facility] [address] [place] [address] [address] Sydney David CO2 [Moles/Vol] 27.2 mmol/L Normal 21.0-32.0 [facility] Comment on above: Performed By: #### B MP #### [facility] [address] [address] [address] Sydney David Creatinine [Mass/Vol] 1.08 mg/dL Normal 0.70-1.30 [facility] Comment on above: Performed By: #### B MP #### [facility] [address] [place] [address] Dr. Sydney David EGFR-AF NAURUAN >60 Normal >=60 [facility] Comment on above: Performed By: #### B MP #### [facility] [address] [address] [address] Sydney David EGFR-NON AF NAURUAN >60 Normal >=60 [facility] Comment on above: Performed By: #### B MP #### [facility] [address] [place] [address] [address] Sydney David Glucose [Mass/Vol] 116 mg/dL Critically high 74-106 [facility] Comment on above: Performed By: #### B MP #### [facility] [address] [place] [address] [address] Sydney David Potassium [Moles/Vol] 3.5 mmol/L Normal 3.5-5.1 [facility] Comment on above: Performed By: #### B MP #### [facility] [address] [address] [address] Sydney David Sodium [Moles/Vol] 139 mmol/L Normal 136-145 [facility] Comment on above: Performed By: #### B MP #### [facility] [address] [address] [address] Sydney David Urea nitrogen [Mass/Vol] 12.0 mg/dL Normal 7.0-18.0 [facility] Comment on above: Performed By: #### B MP #### [facility] [address] [place] [address] [address] Sydney David Urea nitrogen/Creatinine [Mass ratio] 11.1 mg/mg Normal [facility] Comment on above: Performed By: #### B MP #### [facility] [address] [address] [address] Sydney David Platelet mean volume Auto (B ld) [Entitic vol]Ordered By: Maribeth Villafana on 07-15-2022 Platelet mean volume (Bld) [Entitic vol] 11.1 fL 6.6-10.[address] [facility] WBC Auto (Bld) [#/Vol]Ordere d By: Maribeth Villafana on 07-15-2022 WBC (Bld) [#/Vol] 9.2 10*3/uL 4.1-10.5 [facility] XR KUBon 07-15-2022 XR KUB [place] [address] XRay Report Signed Patient: Neal Irene MR#: [id number] 206 : 1980 Acct:[id number] Age/Sex: 41 / M ADM Date: 07/15/22 Loc: [facility] Room: Type: [facility] Attending Dr: Maribeth Villafana DO Copies to: [...] Greer Jr., D.O.07/15/2022 4:05 PM Dictation Location: [place] [address] Transcribed By: JIL 07/15/22 1605 Dictated By: Sonny Greer Jr, DO 07/15/22 1604 Signed By: 07/15/[address] [facility] Alanine aminotransferase [En zymatic activity/volume] in Serum or PlasmaOrdered By: Maribeth Villafana on 07-12-2022 ALT [Catalytic activity/Vol] 68 U/L 7-[address] [facility] Albumin [Mass/volume] in Ser um or Plasma by Bromocresol green (BCG) dye binding methoOrdered By: Maribeth Villafana on 07-12-2022 Albumin BCG dye [Mass/Vol] 4.7 g/dL 3.5-5.[address] [facility] Alkaline phosphatase [Enzyma tic activity/volume] in Serum or PlasmaOrdered By: Maribeth Villafana on 07-12-2022 ALP [Catalytic activity/Vol] 33 U/L 34-[address] [facility] Aspartate aminotransferase [ Enzymatic activity/volume] in Serum or PlasmaOrdered By: Maribeth Villafana on 07-12-2022 AST [Catalytic activity/Vol] 29 U/L 13-[address] [facility] Bilirubin.total [Mass/volume ] in Serum or PlasmaOrdered By: Maribeth Villafana 07-12-2022 Bilirubin [Mass/Vol] 0.6 mg/dL 0.3-1.0 [facility] Calcium [Mass/volume] in Ser um or PlasmaOrdered By: Maribeth Villafana 07-12-2022 Calcium [Mass/Vol] 10.1 mg/dL 8.6-10.3 [facility] Carbon dioxide, total [Moles /volume] in Serum or PlasmaOrdered By: Maribeth Villafana 07-12-2022 CO2 [Moles/Vol] 27.5 mmol/L 21.0-31.0 [facility] Chloride [Moles/volume] in S flash or PlasmaOrdered By: Maribeth Villafana on 07-12-2022 Chloride [Moles/Vol] 106 mmol/L 98-107 [facility] Cholesterol [Mass/volume] in Serum or PlasmaOrdered By: Maribeth Villafana 07-12-2022 Cholesterol [Mass/Vol] 296 mg/dL 140-200 [facility] Comment on above: Chol less than 200 m g/dl low riskChol 201-239 mg/dl borderline riskChol 240 mg/dl and greater high risk Cholesterol in LDL Calc [Mas s/Vol]Ordered By: Maribeth Villafana on 07-12-2022 Cholesterol in LDL [Mass/Vol] 206 mg/dL 0-[address] [facility] Comment on above: LDL ATP III CLASSIFI CATIONLDL less than 100 mg/dL OptimalLDL 100-129 mg/dL Near or above optimalLDL 130-159 mg/dL Borderline highLDL 160-189 mg/dL HighLDL greater than 189 mg/dL Very high Cholesterol in VLDL Calc [Ma ss/Vol]Ordered By: Maribeth Villafana on 07-12-2022 Cholesterol in VLDL [Mass/Vol] 53 mg/dL [facility] Comprehensive Metabolic Pane jenni 07-12-2022 Albumin [Mass/Vol] 4.7 g/dL Normal 3.5-5.7 [facility] Comment on above: Order Comment: PT FA STED 12 HOURS Reason for Exam Well adult exam;Lipid disorder;Medication monitoring encount Reason for Exam Lipid disorder Performed By: #### L SOLOMON, PSAS W RFX, CMP #### [facility] [address] Albumin/Globulin [Mass ratio] 1.8 {ratio} Normal [facility] Comment on above: Order Comment: PT FA STED 12 HOURS Reason for Exam Well adult exam;Lipid disorder;Medication monitoring encount Reason for Exam Lipid disorder Performed By: #### L IPID, PSAS W RFX, CMP #### [facility] [address] [place] [address] [place] ALP [Catalytic activity/Vol] 33 U/L Low 34-[address] [facility] Comment on above: Order Comment: PT FA STED 12 HOURS Reason for Exam Well adult exam;Lipid disorder;Medication monitoring encount Reason for Exam Lipid disorder Performed By: #### L IPID, PSAS W RFX, CMP #### [facility] [address] [place] [address] [place] ALT [Catalytic activity/Vol] 68 U/L High 7-[address] [facility] Comment on above: Order Comment: PT FA STED 12 HOURS Reason for Exam Well adult exam;Lipid disorder;Medication monitoring encount Reason for Exam Lipid disorder Performed By: #### L IPID, PSAS W RFX, CMP #### [facility] [address] Anion gap [Moles/Vol] 11.8 mmol/L Normal 6.0-15.0 [facility] Comment on above: Order Comment: PT FA STED 12 HOURS Reason for Exam Well adult exam;Lipid disorder;Medication monitoring encount Reason for Exam Lipid disorder Performed By: #### L IPID, PSAS W RFX, CMP #### [facility] [address] AST [Catalytic activity/Vol] 29 U/L Normal 13-[address] [facility] Comment on above: Order Comment: PT FA STED 12 HOURS Reason for Exam Well adult exam;Lipid disorder;Medication monitoring encount Reason for Exam Lipid disorder Performed By: #### L IPDANNIELLE, PSAS W RFX, CMP #### [facility] [address] [place] [address] Bilirubin [Mass/Vol] 0.6 mg/dL Normal 0.3-1.0 [facility] Comment on above: Order Comment: PT FA STED 12 HOURS Reason for Exam Well adult exam;Lipid disorder;Medication monitoring encount Reason for Exam Lipid disorder Performed By: #### L IPID, PSAS W RFX, CMP #### [facility] [address] Calcium [Mass/Vol] 10.1 mg/dL Normal 8.6-10.3 [facility] Comment on above: Order Comment: PT FA STED 12 HOURS Reason for Exam Well adult exam;Lipid disorder;Medication monitoring encount Reason for Exam Lipid disorder Performed By: #### L IPID, PSAS W RFX, CMP #### [facility] [address] Chloride [Moles/Vol] 106 mmol/L Normal 98-107 [facility] Comment on above: Order Comment: PT FA STED 12 HOURS Reason for Exam Well adult exam;Lipid disorder;Medication monitoring encount Reason for Exam Lipid disorder Performed By: #### L IPID, PSAS W RFX, CMP #### [facility] [address] CO2 [Moles/Vol] 27.5 mmol/L Normal 21.0-31.0 [facility] Comment on above: Order Comment: PT FA STED 12 HOURS Reason for Exam Well adult exam;Lipid disorder;Medication monitoring encount Reason for Exam Lipid disorder Performed By: #### L IPDANNIELLE PSAS W RFX, CMP #### [facility] [address] Creatinine [Mass/Vol] 0.96 mg/dL Normal 0.70-1.30 [facility] Comment on above: Order Comment: PT FA STED 12 HOURS Reason for Exam Well adult exam;Lipid disorder;Medication monitoring encount Reason for Exam Lipid disorder Performed By: #### L SOLOMON PSAS W RFX, CMP #### [facility] [address] [place] [address] GFR/1.73 sq M.predicted MDRD (S/P/Bld) [Vol rate/Area] mL/min/{1.73_m2} Normal [facility] Comment on above: Order Comment: PT FA STED 12 HOURS Reason for Exam Well adult exam;Lipid disorder;Medication monitoring encount Reason for Exam Lipid disorder Performed By: #### L SOLOMON, PSAS W RFX, CMP #### [facility] [address] [place] [address] Globulin (S) [Mass/Vol] 2.6 g/dL Normal [facility] Comment on above: Order Comment: PT FA STED 12 HOURS Reason for Exam Well adult exam;Lipid disorder;Medication monitoring encount Reason for Exam Lipid disorder Performed By: #### L IPID, PSAS W RFX, CMP #### [facility] [address] [place] [address] Glucose [Mass/Vol] 106 mg/dL High 70-100 [facility] Comment on above: Order Comment: PT FA STED 12 HOURS Reason for Exam Well adult exam;Lipid disorder;Medication monitoring encount Reason for Exam Lipid disorder Result Comment: [place] om Glucose Reference Range is dependent on time and content of last meal. Glucose of more than 200 mg/dL in a nonstressed, ambulatory subject supports the diagnosis of Diabetes Mellitus. ADA recommended reference range Performed By: #### L IPDANNIELLE PSAS W RFX, CMP #### [facility] [address] Potassium [Moles/Vol] 4.3 mmol/L Normal 3.5-5.1 [facility] Comment on above: Order Comment: PT FA STED 12 HOURS Reason for Exam Well adult exam;Lipid disorder;Medication monitoring encount Reason for Exam Lipid disorder Performed By: #### L IPDANNIELLE PSAS W RFX, CMP #### [facility] [address] Protein [Mass/Vol] 7.3 g/dL Normal 6.4-8.9 [facility] Comment on above: Order Comment: PT FA STED 12 HOURS Reason for Exam Well adult exam;Lipid disorder;Medication monitoring encount Reason for Exam Lipid disorder Performed By: #### L HUSSAINID, PSAS W RFX, CMP #### [facility] [address] [place] [address] [place] Sodium [Moles/Vol] 141 mmol/L Normal 136-145 [facility] Comment on above: Order Comment: PT FA STED 12 HOURS Reason for Exam Well adult exam;Lipid disorder;Medication monitoring encount Reason for Exam Lipid disorder Performed By: #### L SOLOMON PSAS W RFX, CMP #### [facility] [address] [place] [address] [place] Urea nitrogen [Mass/Vol] 12 mg/dL Normal 7-[address] [facility] Comment on above: Order Comment: PT FA STED 12 HOURS Reason for Exam Well adult exam;Lipid disorder;Medication monitoring encount Reason for Exam Lipid disorder Performed By: #### L IPID, PSAS W RFX, CMP #### [facility] [address] [place] [id number] [place] Creatinine [Mass/volume] in Serum or PlasmaOrdered By: Maribeth Villafana on 07-12-2022 Creatinine [Mass/Vol] 0.96 mg/dL 0.70-1.30 [facility] Globulin Calc (S) [Mass/Vol] Ordered By: Maribeth Villafana on 07-12-2022 Globulin (S) [Mass/Vol] 2.6 g/dL [facility] Glucose [Mass/volume] in Ser um or PlasmaOrdered By: Maribeth Villafana on 07-12-2022 Glucose [Mass/Vol] 106 mg/dL 70-100 [facility] Comment on above: ADA recommended refe rence rangeRandom Glucose Reference Range is dependent on time and content of last meal. Glucose of more than 200 mg/dL in a nonstressed, ambulatory subject supports the diagnosis of Diabetes Mellitus. Lipid Panelon 07-12-2022 Cholesterol [Mass/Vol] 296 mg/dL High 140-200 [facility] Comment on above: Order Comment: PT FA STED 12 HOURS Reason for Exam Well adult exam;Lipid disorder;Medication monitoring encount Reason for Exam Lipid disorder Result Comment: Chol less than 200 mg/dl low risk Chol 201-239 mg/dl borderline risk Chol 240 mg/dl and greater high risk Performed By: #### L IPID, PSAS W RFX, CMP #### [facility] [address] Cholesterol in HDL [Mass/Vol] 37 mg/dL Normal 29-[address] [facility] Comment on above: Order Comment: PT FA STED 12 HOURS Reason for Exam Well adult exam;Lipid disorder;Medication monitoring encount Reason for Exam Lipid disorder Result Comment: HDL CHOL ATP-III CLASSIFICATION Cardiovascular Risk HDL > or equal to 60 mg/dL LOW HDL < 40 mg/dL HIGH Performed By: #### L IPID, PSAS W RFX, CMP #### [facility] [address] [place] [id number] [place] Cholesterol.total/Patti sterol in HDL [Mass ratio] 8.0 {ratio} Normal <5.[address] [facility] Comment on above: Order Comment: PT FA STED 12 HOURS Reason for Exam Well adult exam;Lipid disorder;Medication monitoring encount Reason for Exam Lipid disorder Result Comment: PERF ORMED BY: [facility] [address] [facility] [place] [address] PATHOLOGIST WATCH AND CLOCK REPAIR CLERK ALEM GARCIA M.D. Performed By: #### L IPID, PSAS W RFX, CMP #### [facility] [address] LDL Cholesterol,Calculated 206 mg/dL High 0-[address] [facility] Comment on above: Order Comment: PT [...] L IPID, PSAS W RFX, CMP #### [facility] [address] Triglyceride w/Reflex 266 mg/dL High 0-149 [facility] Comment on above: Order Comment: [...] L IPID, PSAS W RFX, CMP #### [facility] [address] VLDL CHOLESTEROL 53 mg/dL Normal [facility] Comment on above: Order Comment: PT FA STED 12 HOURS Reason for Exam Well adult exam;Lipid disorder;Medication monitoring encount Reason for Exam Lipid disorder Performed By: #### L IPID, PSAS W RFX, CMP #### [facility] [address] No Panel InformationOrdered By: Maribeth Villafana on 07-12-2022 Estimated GFR (CKD-EPI) > 60.0 mL/Min [facility] Creatinine Clearance (Chem N/A [facility] PSA Screen (Yearly) w/Reflex on 07-12-2022 PSA Screen (Yearly) w/Reflex 0.670 ng/mL Normal 0.000-4.[address] [facility] Comment on above: Order Comment: Reaso n for Exam Well adult exam;Prostate cancer screening Is patient <50 yrs? Medicare does not pay <50.: Y What is the date of the last PSA Screen?: N/A Is Medicare the insurance?: N Did you verify eligibility (Dx Time) check TestViewGp: YES TO ALL Result Comment: PERF ORMED BY: [facility] [address] [place] [address] PATHOLOGIST WATCH AND CLOCK REPAIR CLERK ALEM GARCIA M.D. Performed By: #### L IPID, PSAS W RFX, CMP #### [facility] [address] Potassium [Moles/volume] in Serum or PlasmaOrdered By: Maribeth Villafana on 07-12-2022 Potassium [Moles/Vol] 4.3 mmol/L 3.5-5.1 [facility] Prostate specific Ag [Mass/v olume] in Serum or PlasmaOrdered By: Maribeth Villafana on 07-12-2022 Prostate specific Ag [Mass/Vol] 0.670 ng/mL 0.000-4.[address] [facility] Protein [Mass/volume] in Ser um or PlasmaOrdered By: Maribeth Villafana on 07-12-2022 Protein [Mass/Vol] 7.3 g/dL 6.4-8.9 [facility] Serum or plasma albumin/glob ulin mass ratioOrdered By: Maribeth Villafana on 07-12-2022 Albumin/Globulin [Mass ratio] 1.8 {ratio} [facility] Serum or plasma anion gap de terminationOrdered By: Maribeth Villafana on 07-12-2022 Anion gap [Moles/Vol] 11.8 mmol/L 6.0-15.0 [facility] Serum or plasma high density lipoprotein (HDL) cholesterol measurementOrdered By: Maribeth Villafana on 07-12-2022 Cholesterol in HDL [Mass/Vol] 37 mg/dL 29-[address] [facility] Comment on above: HDL CHOL ATP-III CLA SSIFICATION Cardiovascular RiskHDL > or equal to 60 mg/dL LOWHDL < 40 mg/dL HIGH Serum or plasma total choles terol/high density lipoprotein (HDL) cholesterol mass ratOrdered By: Maribeth Villafana on 07-12-2022 Cholesterol.total/Patti sterol in HDL [Mass ratio] 8.0 {ratio} <5.[address] [facility] Sodium [Moles/volume] in Ser um or PlasmaOrdered By: Maribeth Villafana on 07-12-2022 Sodium [Moles/Vol] 141 mmol/L 136-145 [facility] Triglyceride [Mass/volume] i n Serum or PlasmaOrdered By: Maribeth Villafana on 07-12-2022 Triglyceride [Mass/Vol] 266 mg/dL 0-149 [facility] Comment on above: TRIG ATP III CLASSIF ICATIONTRIG less than 150 mg/dL NormalTRIG 150-199 mg/dL Borderline highTRIG 200-500 mg/dL High TRIG greater than 500 mg/dL Very highStandard traceable to the Center for Disease Conrtrol and Prevention (CDC) test method. Urea nitrogen [Mass/volume] in Serum or PlasmaOrdered By: Maribeth Villafana on 07-12-2022 Urea nitrogen [Mass/Vol] 12 mg/dL 10-[address] [facility] XR LSPINE 2_3 VIEWSon 2022 XR [...] by: DAMARIS ESPINOSA Date: 2022-07-02 14:57 Normal [facility] MRI PELVIS WO CONon 06-28-19 23 MRI [...] by: DAMARIS ESPINOSA Date: 2022-06-27 09:45 Normal [facility] MRI [facility] WO CONon 06-27-19 23 MRI [facility] WO CON EXAMINATION: MRI [facility] WO CON HISTORY: Lumbar radiculitis , urinary [...] by: RENE LAUREN Date: 2022-06-26 15:24 Normal [facility] XR lumbar spine AP/LAT/FLX/E XTon 01-08-2021 XR lumbar spine AP/LAT/FLX/EXT [facility] DocSend Other XR lumbar spine AP/LAT/FLX/EXT [facility] DocSend Other XR lumbar spine AP/LAT/FLX/EXT [address] [place] [address] [employer] Other XR lumbar spine AP/LAT/FLX/[place] [address] [employer] Other XR lumbar spine AP/LAT/FLX/EXT XRay Report [facility] Other XR lumbar spine AP/LAT/FLX/EXT Signed [facility] Other XR lumbar spine AP/LAT/FLX/EXT Patient: Neal Irene MR#: [id number] [facility] Other XR lumbar spine AP/LAT/FLX/EXT 206 [facility] Other XR lumbar spine AP/LAT/FLX/EXT : 1980 Acct:[id number] [facility] Other XR lumbar spine AP/LAT/FLX/EXT Age/Sex: 40 / M ADM Date: 01/08/21 [facility] Other XR lumbar spine AP/LAT/FLX/EXT Loc: [facility] Room: Type: REG I [facility] Other XR lumbar spine AP/LAT/FLX/EXT Attending Dr: Charles Solares MD [facility] Other XR lumbar spine AP/LAT/FLX/EXT Ordering Provider: Charles Solares MD [facility] Other XR lumbar spine AP/LAT/FLX/EXT Date of Service: 01/08/21 [facility] Other XR lumbar spine AP/LAT/FLX/EXT XR/XR lumbar spine AP/LAT/FLX/EXT: Other spondylosis with radiculopathy, [facility] Other XR lumbar spine AP/LAT/FLX/EXT lumbar region [facility] Other XR lumbar spine AP/LAT/FLX/EXT Copies to: Charles Solares MD [facility] Other XR lumbar spine AP/LAT/FLX/EXT Lumbar spine 01/08/2021. [facility] Other XR lumbar spine AP/LAT/FLX/EXT CLINICAL DATA: Low back pain. [facility] Other XR lumbar spine AP/LAT/FLX/EXT FINDINGS: 4 standing views of the lumbar spine were obtained including lateral views in the [facility] Other XR lumbar spine AP/LAT/FLX/EXT neutral, flexion, and extension positions. This examination is compared with a prior study 04/14/2019. [facility] Other XR lumbar spine AP/LAT/FLX/EXT There are stable postsurgical changes related to lumbosacral spinal fusion. There is also stable [facility] Other XR lumbar spine AP/LAT/FLX/EXT anterior malalignment of L5 on S1. Mild posterior malalignment of L2 on L3 is noted. Overall [facility] Other XR lumbar spine AP/LAT/FLX/EXT vertebral alignment does not significantly change with limited flexion or limited extension. Disc [facility] Other XR lumbar spine AP/LAT/FLX/EXT space narrowing is identified. Minimal degenerative changes are seen. [facility] Other XR lumbar spine AP/LAT/FLX/EXT XR/XR lumbar spine AP/LAT/FLX/EXT [facility] Other XR lumbar spine AP/LAT/FLX/EXT IMPRESSION: Stable postsurgical changes and mild vertebral malalignment at the lumbosacral junction. [facility] Other XR lumbar spine AP/LAT/FLX/EXT Mild posterior malalignment of L2 on L3. No instability with limited flexion or extension. Disc [facility] Other XR lumbar spine AP/LAT/FLX/EXT space narrowing and minimal degenerative changes. [facility] Other XR lumbar spine AP/LAT/FLX/EXT Impression dictated by: Jude Stock Jr., M.D.01/08/2021 2:59 PM [facility] Other XR lumbar spine AP/LAT/FLX/EXT Dictation Location: [place] [address] [facility] Other XR lumbar spine AP/LAT/FLX/EXT Transcribed By: JIL 01/08/21 [facility] DocSend Other XR lumbar spine AP/LAT/FLX/EXT Dictated By: Jude Stock Jr, MD 01/08/21 [facility] DocSend Other XR lumbar spine AP/LAT/FLX/EXT Signed By: DocSend Other XR lumbar spine AP/LAT/FLX/EXT 01/08/21 [facility] DocSend Other Erasto 06-09-2018 CNOV Office Visit (NSFRVW ) NEAL IRENE ([id number]) 1980 M Date Time Provider Department 06/09/18 [...] fx. Had surgery by Dr. Robbie Wakefield, [facility] in [place]. 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 Author Type: [...] fx. Had surgery by Dr. Robbie Wakefield, [facility] in [place]. 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 Hx of back problems and surgeries. Took two [place], flexeril, celebrex prior to coming. Needs another surgery for back. History of Present Illness 37-year-old white male presents emergency room with his and complaints of worsening lower back pain after bending over to light his heater in his shop. Patient has had prior back surgery by Dr. Sen in [place] March 14, 2015. Patient states he has [...] Anxious mood & affect. Integumentary: Warm, Dry, [place] Medical Decision Making X-rays did not demonstrate [...] Information RENE WASMARYCRUZ In 3 days 04/04/2018 [facility] [address] [place] [address]- Business (1) Additional Instructions: Call tomorrow for [...] made to ensure accuracy, however, inadvertently computerized electronic operator mistakes may be present. Patient was treated and evaluated by the physician land surveyor assistant. The attending physician was in the [...] acute fracture. Signed By: Andreas Cordova MD [facility] Comment on above: Result Comment: Elec tronically Signed By: Abdelrahman Olvera PA-C\\.br\\Date and Time Signed: 04/01/18 12:55 EST\\.br\\Electronically Co-Signed By: Lashay Li DO\\.br\\Date and Time Co-Signed: 04/07/18 16:20 EST Coding Summary.on 04-02-2018 Coding Summary. CODING DATE: 04/02/2018 FINAL [facility] STATUS: Home (Routine DC) PAYOR: [employer] DESCRIPTION 5522 Level 2 Imaging without Contrast ADMIT DX: REASON FOR VISIT DX: M54.5 Low back pain FINAL DX: PRINCIPAL: M54.5 Low back pain SECONDARY: M53.3 Sacrococcygeal disorders, not elsewhere classified Z79.899 Other supervisor intermediates (current) drug therapy PYMT PROC APC STAT DESCRIPTION DOCTOR NAME DATE NOTE: The code number assigned matches the documented diagnosis and / or procedure in the patient's chart. However, the narrative phrase printed from the coding software may appear abbreviated, or result in slightly different terminology. Coded By: Laila Mcghee Date Saved: 04/02/2018 11:01 am [facility] ED Clinical Summaryon 2017 ED Clinical Summary [place] [address] ED Clinical Summary Person Information Name: NEAL IRENE/[facility] Age: 37 Years : 1980 12:00 AM Sex: Male Language: Paraguayan PCP: RENE MORRELL DO Marital Status: Visit [...] 04/01/2018 1:01 PM 04/01/2018 1:01 PM ADDRESS: [address] [place] [phone] [facility] DOC NOTES: MEDICAL INFORMATION: Prescriptions Given: Prescription [...] Follow up: With: Address: When: RENE MORRELL [address] [place] [address] [facility] (1) In 3 days 04/04/2018 Comments: [...] the lower extremities DIAGNOSIS: Lumbosacral pain Normal [facility] ED Patient Education Noteon 04-01-2018 ED [...] stressful on the back 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 Do not sit, drive, or stacking machine operator one place for more than [...] pillow under your knees. ? Only take jikv-php-nrbzusf or prescription medicines as directed by your caregiver. Biad-dge-pvvckrn medicines to reduce pain and inflammation are [...] Document Reviewed: 07/26/2014 ExitCare? Patient Information ?2015 [employer]. This information is not intended to replace [...] the first months of treatment. Only take [id number]-[id number] or prescription medicines for pain, discomfort, or [...] Document Reviewed: 07/17/2009 ExitCare? Patient Information ?2014 [employer] This information is not intended to replace advice given to you by your health care provider. Make sure you discuss any questions you have with your health care provider. Normal [facility] ED Patient Summaryon 018 ED Patient Summary [place] [id number] Patient Discharge Instructions Person Information Name: NEAL IRENE Age: 37 Years Arrival Date: 04/01/2018 11:05 AM Discharge Diagnosis: Lumbosacral pain Primary Care Physician: RENE MORRELL DO Provider Information Primary Provider: Lashay Li DO [employer] Supervisor:Abdelrahman Olvera PA-C The exam and treatment you received in the Emergency Department were for an urgent problem and are not intended as complete care. It is important that you follow up with a doctor, nurse practitioner, or physician?s land surveyor assistant for ongoing care. If your symptoms [...] Follow-up Instructions: With: Address: When: RENE MORRELL [address] [place], [place] [id number] [facility] (1) In 3 days 04/04/2018 Comments: [...] opioids can be used to help relieve vpxnspft-iq-mfhwzc pain and are often prescribed following a [...] be struggling with addiction, tell your health healthcare advisory services manager and ask for guidance or call [facility]?S National Helpline at 5-232-762-DTSU. g Source: [place] Department of Health and Human Services/Center for Disease Control & Prevention [facility] Medications Given: Medication Dose Route [...] Comment: Pharmacy Information: Thank you for choosing [facility] Patient Education Materials: Radicular Pain [...] the first months of treatment. Only take hzrd-pdd-znwqlno or prescription medicines for pain, discomfort, or [...] Document Reviewed: 07/17/2009 ExitCare? Patient Information ?2015 [employer]. 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 Do not sit, drive, or stacking machine operator one place for more than [...] pillow under your knees. ? Only take nbsj-zic-ycteibn or prescription medicines as directed by your caregiver. Rahc-zqi-skhjlpx medicines to reduce pain and inflammation are [...] Document Reviewed: 07/26/2014 ExitCare? Patient Information ?2014 [employer]. This information is not intended to replace advice given to you by your health care provider. Make sure you discuss any questions you have with your health care provider. ELEAN Bolden RUSSELL , have received the following patient education materials/instruction s and have verbalized understanding: Patient Education Materials: Radicular Pain; Back Pain, Adult Follow-up Instructions: With: Address: When: RENE SONISIL [address] [facility] [place] [address] Business (1) In 3 days 04/04/2018 Comments: [...] Signature Date Clinician/Nurse Signature Date 04/01/18 13:01:03 [facility] Progress Note-Nurseon 2017 Protein mass conc [...] . No further needs at this time. [facility] XR Spine Lumbosacral Minimum 4 Viewson [...] MD Transcribed by: DARSHAN Technologist: DEAN Smalls [facility] Vital Signs Date Time Vital Sign Value Performing Clinician Facility 01-17-2023 09:00-0400 Body height 177.8 cm Maribeth Villafana Other [facility] Other 01-17-2023 09:00-0400 Body mass index (BMI) [Ratio] 39.17 kg/m2 Maribeth Villafana Other [facility] Other 01-17-2023 09:00-0400 Body temperature 97.7 [degF] Maribeth Villafana Other [facility] Other 01-17-2023 09:00-0400 Body weight 123.83 kg Maribeth Villafana Other [facility] Other 01-17-2023 09:00-0400 Diastolic blood pressure 78 mm[Hg] Maribeth Villafana Other [facility] Other 01-17-2023 09:00-0400 SaO2% (BldA) [Mass fraction] 98 % Maribeth Villafana Other [facility] Other 01-17-2023 09:00-0400 Systolic blood pressure 112 mm[Hg] Maribeth Vilalfana Other [facility] Other 12-18-2022 09:45-0400 Body height 177.8 cm Maribeth Villafana Other [facility] Other 12-18-2022 09:45-0400 Body mass index (BMI) [Ratio] 37.73 kg/m2 Maribeth Villafana Other [facility] Other 12-18-2022 09:45-0400 Body weight 119.3 kg Maribeth Villafana Other [facility] Other 12-18-2022 09:45-0400 Diastolic blood pressure 86 mm[Hg] Maribeth Villafana Other [facility] Other 12-18-2022 09:45-0400 Respiratory rate 18 /min Maribeth Villafana Other [facility] Other 12-18-2022 09:45-0400 SaO2% (BldA) [Mass fraction] 95 % Maribeth Villafana Other [facility] Other 12-18-2022 09:45-0400 Systolic blood pressure 126 mm[Hg] Maribeth Villafana Other [facility] Other 12-12-2022 08:00-0400 Body height 177.8 cm Maribeth Villafana Other [facility] Other 12-12-2022 08:00-0400 Body mass index (BMI) [Ratio] 37.73 kg/m2 Maribeth Woodymer Other [facility] Other 12-12-2022 08:00-0400 Body temperature 98.5 [degF] Maribeth Woodymer Other [facility] Other 12-12-2022 08:00-0400 Body weight 119.3 kg Maribeth Woodymer Other [facility] Other 12-12-2022 08:00-0400 Diastolic blood pressure 102 mm[Hg] Maribeth Villafana Other [facility] Other 12-12-2022 08:00-0400 SaO2% (BldA) [Mass fraction] 96 % Maribeth Woodymer Other [facility] Other 12-12-2022 08:00-0400 Systolic blood pressure 150 mm[Hg] Maribeth Carolann Other [facility] Other 09-26-2022 10:22-0400 Diastolic blood pressure 108 mm[Hg] DO Maribeth Villafana Work Phone: [facility] 09-26-2022 10:22-0400 Heart rate 74 /min DO Maribeth Villafana Work Phone: [facility] 09-26-2022 10:22-0400 Respiratory rate 16 /min DO Maribeth Villafana Work Phone: [facility] 09-26-2022 10:22-0400 SaO2% (BldA) [Mass fraction] 98 % DO Maribeth Villafana Work Phone: [facility] 09-26-2022 10:22-0400 Systolic blood pressure 156 mm[Hg] DO Maribeth Villafana Work Phone: [facility] 09-26-2022 08:26-0400 Body height 175.26 cm DO Maribeth Villafana Work Phone: [facility] 09-26-2022 08:26-0400 Body temperature 98.5 [degF] DO Maribeth Villafana Work Phone: [facility] 09-26-2022 08:26-0400 Body weight 113.39 kg DO Maribeth Villafana Work Phone: [facility] 09-11-2022 09:45-0400 Body height 177.8 cm Maribeth Villafana Other [facility] Other 09-11-2022 09:45-0400 Body mass index (BMI) [Ratio] 35.37 kg/m2 Maribeth Villafana Other [facility] Other 09-11-2022 09:45-0400 Body weight 111.81 kg Maribeth Villafana Other [facility] Other 09-11-2022 09:45-0400 Diastolic blood pressure 88 mm[Hg] Maribeth Villafana Other [facility] Other 09-11-2022 09:45-0400 Respiratory rate 18 /min Maribeth Villafana Other [facility] Other 09-11-2022 09:45-0400 SaO2% (BldA) [Mass fraction] 98 % Maribeth Woodymer Other [facility] Other 09-11-2022 09:45-0400 Systolic blood pressure 142 mm[Hg] Maribeth Villafana Other [facility] Other 07-24-2022 10:30-0400 Body height 177.8 cm Igor Scedwardner Other [facility] Other 07-24-2022 10:30-0400 Body mass index (BMI) [Ratio] 35.58 kg/m2 Igor Scovanner Other [facility] Other 07-24-2022 10:30-0400 Body weight 112.49 kg Igor Scdian Other [facility] Other 07-24-2022 10:30-0400 Diastolic blood pressure 132 mm[Hg] Igor Scovanner Other [facility] Other 07-24-2022 10:30-0400 Systolic blood pressure 187 mm[Hg] Igor Scovanner Other [facility] Other 07-15-2022 12:15-0400 Body height 177.8 cm Maribeth Villafana Other [facility] Other 07-15-2022 12:15-0400 Body mass index (BMI) [Ratio] 35.58 kg/m2 Maribeth Villafana Other [facility] Other 07-15-2022 12:15-0400 Body temperature 98.1 [degF] Maribeth Villafana Other [facility] Other 07-15-2022 12:15-0400 Body weight 112.49 kg Maribeth Villafana Other [facility] Other 07-15-2022 12:15-0400 Diastolic blood pressure 110 mm[Hg] Maribeth Villafana Other [facility] Other 07-15-2022 12:15-0400 SaO2% (BldA) [Mass fraction] 97 % Maribeth Villafana Other [facility] Other 07-15-2022 12:15-0400 Systolic blood pressure 156 mm[Hg] Maribethwaldo Villafana Other [facility] Other 01-04-2022 12:15-0400 Body height 177.8 cm Maribeth Villafana Other [facility] Other 01-04-2022 12:15-0400 Body mass index (BMI) [Ratio] 34.39 kg/m2 Maribeth Carolann Other [facility] Other 01-04-2022 12:15-0400 Body weight 108.73 kg Maribeth Carolann Other [facility] Other 01-04-2022 12:15-0400 Diastolic blood pressure 86 mm[Hg] Maribeth Villafana Other [facility] Other 01-04-2022 12:15-0400 Respiratory rate 18 /min Maribeth Carolann Other [facility] Other 01-04-2022 12:15-0400 SaO2% (BldA) [Mass fraction] 98 % Maribeth Villafana Other [facility] Other 01-04-2022 12:15-0400 Systolic blood pressure 136 mm[Hg] Maribeth Villafana Other [facility] Other 06-22-2021 10:00-0400 Body height 177.8 cm Maribeth Carolann Other [facility] Other 06-22-2021 10:00-0400 Body mass index (BMI) [Ratio] 34.16 kg/m2 Maribeth Villafana Other [facility] Other 06-22-2021 10:00-0400 Body weight 108 kg Mairbethwaldo Villafana Other [facility] Other 06-22-2021 10:00-0400 Diastolic blood pressure 78 mm[Hg] Maribeth Villafana Other [facility] Other 06-22-2021 10:00-0400 Respiratory rate 18 /min Maribeth Carolann Other [facility] Other 06-22-2021 10:00-0400 SaO2% (BldA) [Mass fraction] 95 % Maribethwaldo Villafana Other [facility] Other 06-22-2021 10:00-0400 Systolic blood pressure 118 mm[Hg] Maribeth Villafana Other [facility] Other 03-08-2021 12:15-0500 Body height 177.8 cm Charles Solares Other [facility] Other 03-08-2021 12:15-0500 Body mass index (BMI) [Ratio] 33.72 kg/m2 Charles Soalres Other [facility] Other 03-08-2021 12:15-0500 Body weight 106.6 kg Charles Solares Other [facility] Other 02-12-2021 11:00-0500 Body height 177.8 cm Maribeth Villafana Other [facility] Other 02-12-2021 11:00-0500 Body mass index (BMI) [Ratio] 33.37 kg/m2 Maribeth Villafana Other [facility] Other 02-12-2021 11:00-0500 Body temperature 98.3 [degF] Maribeth Villafana Other [facility] Other 02-12-2021 11:00-0500 Body weight 105.51 kg Maribeth Villafana Other [facility] Other 02-12-2021 11:00-0500 Diastolic blood pressure 88 mm[Hg] Maribeth Villafana Other [facility] Other 02-12-2021 11:00-0500 Respiratory rate 18 /min Maribeth Villafana Other [facility] Other 02-12-2021 11:00-0500 SaO2% (BldA) [Mass fraction] 99 % Maribeth Villafana Other [facility] Other 02-12-2021 11:00-0500 Systolic blood pressure 134 mm[Hg] Maribeth Villafana Other [facility] Other 02-01-2021 11:45-0400 Body height 177.8 cm Maribeth Villafana Other [facility] Other 02-01-2021 11:45-0400 Body mass index (BMI) [Ratio] 35.48 kg/m2 Maribeth Villafana Other [facility] Other 02-01-2021 11:45-0400 Body temperature 98.2 [degF] Maribeth Villafana Other [facility] Other 02-01-2021 11:45-0400 Body weight 112.18 kg Maribeth Villafana Other [facility] Other 02-01-2021 11:45-0400 Diastolic blood pressure 86 mm[Hg] Maribeth Villafana Other [facility] Other 02-01-2021 11:45-0400 Respiratory rate 18 /min Maribeth Villafana Other [facility] Other 02-01-2021 11:45-0400 SaO2% (BldA) [Mass fraction] 97 % Maribeth Villafana Other [facility] Other 02-01-2021 11:45-0400 Systolic blood pressure 136 mm[Hg] Maribeth Villafana Other [facility] Other Encounters Encounter Date Encounter Type Care Provider Facility Start: 03-13-2023 End: 03-13-2023 ambulatory Maribeth Villafana Other [facility] Other Start: 03-13-2023 Telephone encounter Maribeth Carolann [facility] Start: 02-05-2023 End: 02-05-2023 ambulatory Maribeth Villafana Other [facility] Other Start: 02-05-2023 Telephone encounter Maribeth Carolann [facility] Start: 01-17-2023 End: 01-17-2023 ambulatory Maribeth Villafana Other [facility] Other Start: 01-17-2023 Encounter for genera l adult medical examination without abnormal findings Maribeth Villafana [facility] [place] Start: 01-17-2023 Periodic preventive med est patient 40-64yrs Maribeth Villafana [facility] [place] Start: 12-18-2022 (Procedure) Short Maribeth Villafana [facility] [place] Start: 12-18-2022 End: 12-18-2022 ambulatory Maribeth Villafana Other [facility] Other Start: 12-12-2022 End: 12-12-2022 ambulatory Maribeth Villafana Other [facility] Other Start: 12-12-2022 Office outpatient visit 15 minutes Maribeth Carolann [facility] [place] Start: 12-05-2022 End: 12-05-2022 ambulatory Maribeth Villafana Other [facility] Other Start: 12-05-2022 Telephone encounter Maribeth Carolann [facility] [place] Start: 09-28-2022 End: 09-28-2022 ambulatory Nash Cardenas Other [facility] Other Start: 09-28-2022 Telephone encounter Nash COCHRAN [facility] Start: 09-26-2022 End: 09-26-2022 ambulatory Nash Cardenas Facility:[facility] Start: 09-26-2022 End: 09-26-2022 Admission to same day surgery center DO Maribeth Villafana Work Phone: [facility] Work Phone: Start: 09-26-2022 End: 09-26-2022 ambulatory DO Maribeth Villafana Work Phone: [facility] Work Phone: Start: 09-11-2022 (Procedure) Short Maribeth Villafana [facility] [place] Start: 09-11-2022 End: 09-11-2022 ambulatory Maribeth Villafana Other [facility] Other Start: 09-10-2022 End: 09-10-2022 ambulatory Maribeth Villafana Other [facility] Other Start: 09-10-2022 Telephone encounter Maribeth [facility] Start: 09-03-2022 End: 09-03-2022 ambulatory NARENDRANATH LAKSHMIPATHY . Facility:[facility] Start: 08-20-2022 End: 08-20-2022 ambulatory Maribeth Villafana Facility:[facility] Start: 08-20-2022 End: 08-20-2022 ambulatory DO Maribeth Villafana Work Phone: [facility] Work Phone: Start: 08-20-2022 End: 08-20-2022 Patient encounter procedure DO Maribeth Villafana Work Phone: [facility] [address] Start: 08-16-2022 End: 08-17-2022 ambulatory NARENDRANATH LAKSHMIPATHY . Facility:[facility] Start: 08-02-2022 End: 08-02-2022 ambulatory Maribeth Villafana Other [facility] Other Start: 08-02-2022 Telephone encounter Marbieth [facility] [place] Start: 07-30-2022 End: 07-30-2022 ambulatory NARENDRANATH LAKSHMIPATHY . Facility:[facility] Start: 07-24-2022 End: 07-24-2022 ambulatory Igor Orr Other [facility] Other Start: 07-24-2022 Office outpatient ne w 30 minutes Igor Orr [facility] Start: 07-23-2022 End: 07-24-2022 ambulatory NARENDRANATH LAKSHMIPATHY . Facility:[facility] Start: 07-16-2022 End: 07-16-2022 ambulatory Maribeth Villafana Other [email or web address] Other Start: 07-16-2022 Telephone encounter Maribeth Mercer [facility] Start: 07-15-2022 Office outpatient visit 25 minutes Maribeth Villafana [facility] Start: 07-15-2022 Telephone encounter Maribeth Mercer [facility] Start: 07-15-2022 End: 07-15-2022 ambulatory DO Maribeth Villafana Work Phone: [facility] [employer] Other Start: 07-15-2022 End: 07-15-2022 Patient encounter procedure DO Maribeth Villafana Work Phone: [facility] Start: 07-12-2022 End: 07-12-2022 ambulatory Maribeth Villafana Facility:[facility] Start: 07-12-2022 Encounter for genera l adult medical examination without abnormal findings Maribeth Villafana [facility] Start: 07-12-2022 End: 07-12-2022 ambulatory DO Maribeth Villafana Work Phone: [facility] Work Phone: Start: 07-12-2022 End: 07-12-2022 Patient encounter procedure DO Maribeth Villafana Work Phone: [facility] [place] Work Phone: Start: 07-02-2022 End: 07-03-2022 ambulatory [...] 01-04-2022 End: 01-04-2022 ambulatory Maribeth Carolann Other [facility] Other Start: 01-04-2022 Encounter for genera l adult medical examination without abnormal findings Maribeth Villafana [facility] Start: 01-04-2022 Periodic preventive med est patient 40-64yrs Maribeth Villafana [facility] Start: 12-13-2021 End: 12-14-[address] JESSICA JOEL . Facility:[facility] Start: 10-31-2021 End: 11-01-[address] JESSICA JOEL . Facility:[facility] Start: 10-03-2021 End: 10-04-2021 ambulatory BRIT SCHUSTER . Facility:[facility] Start: 09-29-2021 End: 09-29-2021 ambulatory MARIBETH CAROLANN Facility:[facility] Start: 08-17-2021 End: 08-17-2021 ambulatory Charles Solares Other [facility] Other Start: 08-17-2021 Telephone encounter [facility] [place] Start: 08-07-2021 End: 08-07-2021 ambulatory Charles Solares Other [facility] Other Start: 08-07-2021 Telephone encounter [facility] Start: 07-13-2021 End: 07-13-2021 ambulatory Maribeth Carolann Other [facility] Other Start: 07-13-2021 Telephone encounter Maribeth Villafana [facility] Start: 07-09-2021 End: 07-09-2021 ambulatory Charles Hernandezer Other [facility] Other Start: 07-09-2021 Office outpatient visit 25 minutes Charles Felter [facility] [place] Start: 06-22-2021 End: 06-22-2021 ambulatory Maribeth Villafana Other [facility] Other Start: 06-22-2021 Office outpatient visit 15 minutes Maribeth Villafana [facility] [place] Start: 06-06-2021 End: 06-06-2021 ambulatory Charles Hernandezer Other [facility] Other Start: 06-06-2021 Office outpatient visit 25 minutes Charles Hernandezer [facility] [place] Start: 05-29-2021 End: 05-29-2021 ambulatory Maribeth Villafana Other [facility] Other Start: 05-29-2021 Telephone encounter Maribeth [facility] Start: 05-22-2021 End: 05-22-2021 ambulatory Maribeth Villafana Other [facility] Other Start: 05-22-2021 Telephone encounter Maribeth [facility] [place] Start: 05-21-2021 End: 05-21-2021 ambulatory Maribeth Villafana Other [facility] Other Start: 05-21-2021 Telephone encounter Maribeth Villafana [facility] [place] Start: 05-08-2021 End: 05-08-2021 ambulatory Charles Hernandezer Other [facility] Other Start: 05-08-2021 Office outpatient visit 25 minutes Charles Hernandezer [facility] [place] Start: 04-12-2021 End: 04-12-2021 ambulatory Charles Hernandezer Other [facility] Other Start: 04-12-2021 Office outpatient visit 25 minutes Charles Solares [facility] [place] Start: 03-08-2021 End: 03-08-2021 ambulatory Charles Solares Other [facility] Other Start: 03-08-2021 Office outpatient visit 25 minutes Charles Solares [facility] [place] Start: 02-28-2021 End: 02-28-2021 ambulatory Maribeth Carolann Other [facility] Other Start: 02-28-2021 Telephone encounter Maribeth [facility] [place] Start: 02-12-2021 End: 02-12-2021 ambulatory Maribeth Carolann Other [facility] Other Start: 02-12-2021 Office outpatient visit 15 minutes Maribeth Villafana [facility] [place] Start: 02-05-2021 Office outpatient visit 25 minutes Charles Solares [facility] [place] Start: 02-01-2021 Office outpatient visit 15 minutes Maribethwaldo Villafana [facility] Start: 01-08-2021 Office outpatient visit 25 minutes Charles Felter [facility] [place] Start: 06-09-2018 End: 06-10-2018 Patient encounter procedure PHI CADENASURENDRA [facility] Start: 04-01-2018 End: 04-01-2018 Emergency department patient visit Lashaycristóbal Hobsonz [place] [place] Date Procedure Procedure Detail Performing Clinician Start: 09-26-2022 Colonoscopy DO Maribeth Villafana Work Phone: Start: 07-15-2022 Diagnostic radiograp hy of abdomen DO Maribeth Villafana Work Phone: Plan of Treatment Date Care Activity Detail Author Start: 09-26-[address] [facility] Patient Education Hemorrhoids (DC) [facility] Work Phone: Immunizations Immunization Date Immunization Notes Care Provider Macrina brunson 12-07-2020 COVID-19 Vaccine Corey - Documentation Purposes Only Charles Solares Other [facility] Other 03-25-2019 Depo-Medrol 80 mg Charles lewis Other [facility] Other 12-11-2017 Kenalog -40 mg Charles Solares Other [facility] Other Payers Date Payer Category Payer Self-pay [id number] 1980 Unknown [id number] 2.16.84 0.1.107229.3.579.2.727 1979 Unknown [id number] 2.16.84 0.1.134174.3.579.2.593 1979 Unknown [id number] 2.16.84 0.1.691179.3.579.2.593 1979 Unknown [id number] 2.16.84 0.1.547231.3.579.2.593 1979 Unknown [id number] 2.16.84 0.1.704829.3.579.2.593 1979 Unknown [id number] 2.16.84 0.1.560609.3.579.2.593 1979 Unknown [id number] 2.16.84 0.1.295998.3.579.2.593 1979 Unknown [id number] 2.16.84 0.1.000955.3.579.2.593 1979 Unknown [id number] 2.16.84 0.1.658164.3.579.2.593 1979 Unknown [id number] 2.16.84 0.1.828471.3.579.2.593 1979 Unknown [id number] 2.16.84 0.1.196514.3.579.2.593 1979 Unknown [id number] 2.16.84 0.1.843035.3.579.2.593 1979 Unknown [id number] 2.16.84 0.1.807550.3.579.2.593 1979 Unknown [id number] 2.16.84 0.1.541621.3.579.2.593 1979 Unknown [id number] 2.16.84 0.1.930114.3.579.2.593 1979 Unknown [id number] 2.16.84 0.1.589713.3.579.2.593 1979 Unknown [id number] 2.16.84 0.1.022446.3.579.2.593 1960 Medicaid [id number] 1960 Unknown [id number] 1959 Unknown [id number] [facility] [id number] 2.16.840.1.529918.19 Unknown [facility] [id number] Unknown [id number] 2.16.8 40.1.377307.3.579.2.531 Unknown [id number] 2.16.8 40.1.022526.3.579.2.531 Unknown [id number] 2.16.8 40.1.861624.3.579.2.531 Unknown [id number] 2.16.8 40.1.980314.3.579.2.531 Social History Date Type Detail Facility Unknown if ever smoked [facility] Other Sex Assigned At Sex Assigned At Bir th [facility] Other Start: 04-13-2019 Tobacco smoking status NHIS Smoker (finding) [facility] Start: 1980 Sex Assigned At Male F [facility] Start: 09-26-2022 Tobacco smoking status NHIS Current some day smoker [facility] Goals Date Patient Goal Desired Activity /State Clinical Notes 01-08-2021 to 03-13-2023 Note Date & Type Note Facility 03-13-2023 Evaluation note Encounter Date Diagnosis Assessment Notes Mar, Primary osteoarthritis of both first carpometacarpal joints (ICD-10 - M18.0) [facility] Other 11-01-2023 Evaluation note* Encounter Date Diagnosis Assessment Notes Treatment Notes Treatment Clinical Notes Feb, Primary hypertension (ICD-10 - I10) [facility] Other 10-13-2023 Evaluation note* Encounter Date Diagnosis [...] Jan, Medication monitoring encounter (ICD-10 - Z51.81) [facility] Other 09-13-2023 Evaluation note* Encounter Date Diagnosis Assessment Notes Treatment Notes Treatment Clinical Notes Dec, Primary osteoarthrit is of first carpometacarpal joint of left hand (ICD-10 - M18.12) [facility] Other 09-07-2023 Evaluation note* Encounter Date Diagnosis [...] he has any issues with the medicine. [facility] Other 06-22-2023 Procedure [facility]06-07-2023 Evaluation note* Encounter Date Diagnosis Assessment Notes Treatment Notes Treatment Clinical Notes Sep, Primary osteoarthrit is of both first carpometacarpal joints (ICD-10 - M18.0) [facility] Other 04-19-2023 Evaluation note* Encounter Date Diagnosis [...] colonoscopy to rule out luminal etiologies made [facility] Other 04-18-2023 NoteCONSULTATION CONSULTATION DATE: 07/23/2022 TO: [...] our patients to inform us about any aqrd-pky-khofhbi medications or herbal remedies/nutritional supplements/alternative remedies. 2. [...] with their primary care provider.[id number] Evaluation note * Encounter Date Diagnosis Assessment Notes Treatment Notes Treatment Clinical Notes Jul, Generalized abdominal pain (ICD-10 - R10.84) [facility] Other 04-10-2023 Evaluation note* Encounter Date Diagnosis [...] Jul, Medication monitoring encounter (ICD-10 - Z51.81) [facility] Other 04-10-2023 Evaluation note* Encounter Date Diagnosis Assessment Notes Treatment Notes Treatment Clinical Notes Jul, Slow transit constipation (ICD-10 - K59.01) [facility] Other 03-28-2023 NoteCONSULTATION CONSULTATION DATE: 07/02/2022 TO: [...] as his lumbar spine films.[facility] [id number] Note CONSULTATION CONSULTATION DATE: 06/13/2022 HISTORY OF [...] relief. He has been seen both at [place] and [facility] [facility] in the past, and received [...] under the care of Dr. Joshua in [place]. He is unwilling to try Lyrica due [...] in agreement to this plan.[facility] [id number] NoteCONSULTATION CONSULTATION DATE: 03/14/2022 HISTORY OF PRESENT [...] months' time, unless otherwise indicated.[facility] [id number] NoteCONSULTATION CONSULTATION DATE: 02/07/2022 HISTORY OF PRESENT [...] in the office post procedure.[facility] [id number] Evaluation note* Encounter Date Diagnosis Assessment Notes [...] Dec, Prostate cancer screening (ICD-10 - Z12.5) [employer] Other 09-08-2022 NoteCONSULTATION CONSULTATION DATE: 12/13/2021 HISTORY [...] and all questions were answered.[facility] [id number] Note CONSULTATION PROCEDURE DATE: 10/31/2021 PREOPERATIVE DIAGNOSIS: [...] followed up in the office.[facility] [id number] Note CONSULTATION CONSULTATION DATE: 10/03/2021 This is [...] and will be seen in the clinic. [facility] Signed and Approved by: BRIT SCHUSTER . 10/11/2021 16:28:00[facility]04-04-2022 Evaluation note* Encounter Date Diagnosis Assessment Notes [...] in this. Patient notes prior issues with [facility] billing department and states he is [...] note writ ten by Km Cervantes MA, District Or District Office Director. Edited and approved by Dr. Charles Solares MD. [employer] Other 03-18-2022 Evaluation note* Encounter Date Diagnosis [...] and he is to continue with it. [employer] Other 03-02-2022 Evaluation note* Encounter Date Diagnosis [...] note writ ten by Km Cervantes CMA, District Or District Office Director. Edited and approved by Dr. Charles Solares MD. [employer] Other 02-15-2022 Evaluation note* Encounter Date Diagnosis Assessment Notes Treatment Notes Treatment Clinical Notes May, Cigarette nicotine dependence without complication (ICD-10 - F17.210) [employer] Other 02-14-2022 Evaluation note* Encounter Date Diagnosis Assessment Notes Treatment Notes Treatment Clinical Notes May, Other spondylosis with radiculopathy, lumbar region (ICD-10 - M47.26) [employer] Other 02-01-2022 Evaluation note* Encounter Date Diagnosis [...] was refilled today. Saliva sample performed through [facility] lab today, will await confirmatory results. Opiod contract updated at this time. May, Other chronic pain (ICD-10 - G89.29) May, Other Above note writ ten by Sonya Dawson LPN, District Or District Office Director. Edited and approved by Dr. Charles Solares MD. [employer] Other 01-06-2022 Evaluation note* Encounter Date Diagnosis [...] note writ ten by Km Cervantes CMA, District Or District Office Director. Edited and approved by Dr. Charles Solares MD. [email or web address] Other 12-02-2021 Evaluation note* Encounter Date Diagnosis [...] Above note written by Sonya Dawson LPN, District Or District Office Director. Edited and approved by Dr. Charles Solares MD. [employer] Other 11-08-2021 Evaluation note* Encounter Date Diagnosis [...] Patient voiced understanding agrees with this plan. [employer] Other 11-01-2021 Evaluation note* Encounter Date Diagnosis [...] note writ ten by Donita Henson CMA, District Or District Office Director. Edited and approved by Dr. Charles Solares MD. [employer] Other 10-28-2021 Evaluation note* Encounter Date Diagnosis [...] message to Dr. Solares passing this along. [employer] Other 10-04-2021 Evaluation note* Encounter Date Diagnosis [...] educated regarding the risks and benefits of mcc opioid use. He understands the associated risks with this medication and agrees that it provides reasonable benefit in regards to his pain control and level of function. Oxycodone Acetaminophen was refilled today. Jan, Other chronic pain (ICD-10 - G89.29) [employer] Other Evaluation noteNo InformationNortSurgical Specialty Center at [facility] [employer] Other Evaluation noteNo assessment information available [facility] Work Phone: History and physical note Author Nash Cardenas [facility] September 26, 2022 9:39am Note Date/Time September 26, 2022 9:[address] [facility] [address] [place] [address] Gastroenterology H&P Signed Patient: Neal Irene MR#: [id number] : 1980 Acct:[id number] Age/Sex: 41 / M Adm Date: 3 Loc: Room: Type: [facility] Attending Dr: Nash Cardenas MD Copies [...] Cardenas MD Documented By: Nash Cardenas MD 09/26/2232 Signed By: <Electronically signed by Nash Cardenas MD> 09/26/2297 [facility] Work Phone: History general Narrative - Reported* Type Description Date Medical History Hx spinal fusion Medical History Lumbar radiculopathy Medical History Trigger point Surgical History L5 S1 fusion 2014 Surgical History Left lower leg surgery (multipl e fractures) Surgical History foreign body excision right mid dle finger Hospitalization History pneumonia as child [employer] Other History general Narrative - Reported* Type Description Date Medical History Hx spinal fusion Medical History Lumbar radiculopathy Medical History Trigger point Surgical History L5 S1 fusion 2014 Surgical History Left lower leg surgery (multipl e fractures) Surgical History foreign body excision right mid dle finger Surgical History lumbar facet nerve b lock injection - Dr. Saldivar in [place] 11/2022 Hospitalization History pneumonia as child [employer] Other History general Narrative - Reported* Type Description Date Medical History Hx spinal fusion Medical History Lumbar radiculopathy Medical History Trigger point Surgical History L5 S1 fusion 2014 Surgical History Left lower leg surgery (multipl e fractures) Surgical History foreign body excision right mid dle finger Surgical History lumbar facet nerve b lock injection - Dr. Saldivar in [employer] 11/2022 Surgical History R side nerve ablation 01/2023 Hospitalization History pneumonia as child [facility]Send Other Hospital Discharge instructions Additional Instructions DISCHARGE [...] NOT operate machinery such as power tools, [employer] mowers, SqueezeCMMwers, sewing machines, etc. for 24 hours. - [...] years. -Follow up with PCP. -Office number [phone].[facility] Work Phone: Retlim for visit NarrativePatient here at the request of Dr. Villafana for evaluation & treatment of abdominal pain, change in bowel habits, weight loss, rectal bleeding.[employer] Other Rejbnt for visit NarrativeProcedure appt and DNR-A signNort [email or web address] Other Summary Purpose Family History Relationship Condition Age at Onset Recorded Date/T lorri brother Gout Unknown Relationship Condition Age at Onset Recorded Date/T lorri brother Gout Unknown Diabetes mellitus Unknown Advance Directives Advance Directive Response Recorded Date/ Time Advance Directives No December 4:24pm Reason for Referral Reason Dr. Villanueva to [facility] surgical options, steroid injections not providing long lasting benefit Diagnosis 1 Primary osteoarthrit is of both first carpometacarpal joints (M18.0) Referral Organization [facility] Family Nisha Santos Referring Provider First Name Maribeth Referring Provider Last Name Carolann Referring Provider Specialty Family Prac patito Referred Organization [facility] Referred Address [address],[address] Referred Provider Specialty ORTHOPEDIC S URGEON Referral Priority Routine Reason * Waiting for appt CT and KUB normal, generalized pain of unclear etiology Diagnosis 1 Generalized abdomina l pain (R10.84) Referral Organization [facility] Family Nisha Santos Referring Provider First Name Maribeth Referring Provider Last Name Carolann Referring Provider Specialty Family Prac patito Referred Organization [facility] Gastroenterolo gy Referred Provider Dwayne Salas Referred Address [address] [facility] [address] ,[place], [place],[address] Referred Provider Specialty Gastroentero logy Referral Priority [...] continuous use of opioids (F11.90) Referral Organization [facility] Nisha Santos Referring Provider First Name Maribeth Referring Provider Last Name Carolann Referring Provider Specialty Family Prac patito Referred Organization [facility] Referred Address [address],[facility], [place],[address] Referred Provider Specialty Pain Medicin e Referral Priority Routine General Notes Rebeca Vivar 11:08:53 AM >referral received and faxed Clinical Notes P- [phone] Chief Complaint and Reason for Visit Chief [...] DATE CREATED AUTHOR AUTHOR'S ORGANIZ ATION 06/11/2018 [facility] DATE CREATED AUTHOR AUTHOR'S ORGANIZ ATION 09/15/2022 [facility] DATE CREATED AUTHOR AUTHOR'S ORGANIZ ATION 10/04/2022 [facility] REASON FOR VISIT (unrecogniz ed section and content) 1 MOback pain getting worse, pain management not working4 WK RECHECKDISCUSS DISABILITY OPTIONSLab results1 MO1 MONTH RECHECKCHANTIX1 month Follow upscript requestpaperwork1 MONTH FOLLOW UPCHANTIX refill/discuss back concerns1 MONTHNo InformationNo InformationPROCEDURE NOTES1 year Follow up/ AWVAbdominal Pain/ incontinencenew medication.ReferralPain ManagementB/L thumb steroid inj./ sign DNR-AORDERS PER DR Casanovaated bpelevated BP at PM in [place], no sxinjection L thumb1 year Follow upLosartan/HCTZsteroid [...] BE BASED ON THE PRIMARY CLINICAL RECORDS. [employer] [facility]. provides no warranty or guarantee of the accuracy or completeness of information in this document."
--- NOTE | 2023-07-17 10:24 | P.CN_ITS ---
Consult Note: HPI Data of Consult Patient: known to practice within the last 3 years Requesting Physician: Brianna Wallace NP Primary Care Provider: MARIBETH VUONG Consult Narrative Reason for consult: f/u Narrative: Pedro Pablo Irene a pleasant 42 year old male presents for evaluation and management of chronic back pain. Patients main complaint is middle back rating pain 7/10. Patient reports continued pain in low back and numbness tingling weakness of bilateral legs, no falls since last visit, continues to utilize rollator. Patient reports significant improvement >90% hours after bilateral T4-5 T5-6 MBB #3, would like to proceed thermal RFA. continues to engage in HEP without improvement. patient reports mild improvement from mobic 15mg daily, flexeril 10mg TID, lyrica 50mg HS, tylenol PRN. NNCP, marijuana use. Patient has been evaluated by NS in the past but was an active smoker, he quit smoking greater than 12 months ago. Patient would like to see another NS for evaluation of low back pain. cc:: CC: Brianna Wallace NP Review of Systems ROS Status of ROS 10 or more systems reviewed and unremark able except as noted in history and below Musculoskeletal Reports: back pain PFSH PFSH Medical History Fracture of left lower leg ?S82.92XA - Unspecified fracture of left lower leg, initial encounter for closed fracture (ICD-10) Upper back pain ?M54.9 - Dorsalgia, unspecified (ICD-10) Neck pain ?M54.2 - Cervicalgia (ICD-10) Low back pain ?M54.50 - Low back pain, unspecified (ICD-10) Former smoker ?Z87.891 - Personal history of nicotine dependence (ICD-10) Surgical History S/P lumbar spine operation ?Z98.890 - Other specified postprocedural states (ICD-10) Meds Home Medications and Allergies Home Medications ?Medication ?Instructions ?Recorded ?Confirmed ?Type acetaminophen 500 mg tablet 1,000 mg PO Q6H 09/13/22 07/08/23 History (Tylenol Extra Strength) diphenhydramine HCl 25 mg tablet 50 mg PO DAILY 09/13/22 07/08/23 History (Allergy (diphenhydramine)) meloxicam 15 mg tablet 15 mg PO DAILY 09/13/22 07/08/23 History losartan 50 mg-hydrochlorothiazide tab 01/07/23 History 12.5 mg tablet cyclobenzaprine 10 mg tablet 10 mg PO TID PRN muscle spasm #80 01/22/23 07/08/23 Rx tabs cyclobenzaprine 10 mg tablet 10 mg PO TID PRN muscle spasm #90 06/04/23 07/08/23 Rx tabs Allergies Allergy/AdvReac Type Severity Reaction Status Date / Time gabapentin AdvReac Severe Dizziness Verified 07/08/23 07:23 zonisamide [From [employer]] AdvReac Intermediate Nausea Verified 07/08/23 07:23 Exam Constitutional Documenting provider has reviewed patient's vital signs: yes Common normals: no apparent distress, oriented x3, healthy appearing, alert and well nourished General appearance: cooperative HENMT Common normals: normocephalic, hearing grossly normal bilaterally and moist oral mucous membranes Head and scalp: normocephalic Eye Common normals: PERRL Pupil: PERRL Neck & C-Spine Common normals: full ROM General: normal visual inspection Chest Common normals: inspection of chest normal Respiratory Common normals: normal respiratory effort, no retractions and no use of accessory muscles Back & Pelvis Thoracic spine/upper back: ROM limited and pain with ROM Lumbar spine/lower back: ROM limited, pain with ROM and straight leg raise negative bilaterally Sacroiliac joints: SI joints normal Other: negative radiculopathy on exam sensation intact BLE strength 5/5 BLE increased low back pain and NC with ambulation, improvement in pain with forward flexion and walker use Extremity Common normals: normal to inspection and full ROM Neuro Common normals: oriented x3, CN's II-XII intact bilaterally, moves all extremities, no focal motor deficits, no sensory deficits noted and deep tendon reflexes 2+ bilaterally Sensorium/orientation: alert Gait (neuro): antalgic and assistive device used walker Motor exam: strength 5/5 throughout and no movement abnormalities noted Psych Common normals: mental status grossly normal, thought process normal, cooperative, affect normal, speech normal and activity/motor behavior normal Speech: normal speech Thought process: normal thought process Assessment and Plan Assessment and Plan (1) Thoracic spondylosis: (2) Lumbar stenosis with neurogenic claudication: (3) Lumbar radiculopathy: (4) Status post lumbar spinal fusion: Assessment and Plan: L5-S1 (5) Muscle spasm: (6) Lumbar spondylosis: (7) Marijuana use: Assessment and Plan: NNCP (8) Obesity: Assessment and Plan: The patient was counseled that proper dietary changes and consistent participation in a home exercise plan can lead to weight loss. Weight loss can help to improve functionality in patients with chronic pain.? Plan left and right T4-5 T5-6 facet medial branch thermal RFA under fluoroscopy with IV sedation due to anxiety defer on lumbar TREV, pt not interested at this time patient would like to meet with NS again, will refer to Dr Pérez for evaluation and management of chronic low back pain, lumbar stenosis with NC, lx radiculopathy. Prior MRI imaging in chart from 2022 reveals degenerative changes with herniated discs at L2-3 L4-5 continue NNCP due to previous failed UDS and use of marijuana while on opioids through our office. 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 discussed max dosage of flexeril is 10mg TID, patient reports taking QID at times increase lyrica 50mg BID consider SCS trial if non surgical, patient quit smoking greater than 1 year ago but does utilize nicotine pouches f/u 1 month after completion of RFAs
== END 2023-07-17 08:36 | disposition home or self-care (01) ==
LOC: PM 08:36
PROVIDERS: Visit Provider Nurse Practitioner
DX: M47.814 Spondylosis without myelopathy or radiculopathy, thoracic region (principal); M48.062 Spinal stenosis, lumbar region with neurogenic claudication; M54.16 Radiculopathy, lumbar region; Z98.890 Other specified postprocedural states; M62.838 Other muscle spasm; M47.816 Spondylosis without myelopathy or radiculopathy, lumbar region; Z79.899 Other long term (current) drug therapy; E66.9 Obesity, unspecified
CPT/HCPCS: G0463

== ENCOUNTER 2023-07-25 09:21 | Outpatient (OUT) | payer OTHER, SELFPAY ==
--- NOTE | 2023-07-25 | XR_ITS ---
[place] [id number] Patient Name: NEAL PARKER MRN: [id number] date: 1980 Sex: M Assigned Patient Location: Current Patient Location: Accession/Order Number: [id number] Exam Date: 07/25/2023 09:35 Report Date: 07/25/2023 10:28 At the request of: ANTONIO RAPHAEL Procedure: XR lumbar spine min 4V EXAMINATION: XR lumbar spine min 4V HISTORY: LUMBAR PAIN COMPARISON: XR L-spine 07/02/2022 FINDINGS: BONES: Posterior mechanical fusion L5-S1 via right side only pedicle screws and arturo. Posterior decompression of L5. Minimal grade 1 retrolisthesis of L2 on 3. Mild degenerative facet arthropathy L4-5, L5-S1. DISC SPACES: Intervertebral spacers within L5-S1. Moderate narrowing L4-5. Suspect mild narrowing L2-3 and L3 on 4. PARASPINOUS: Negative. No paraspinous abnormality is seen. OTHER: Negative. XR/XR lumbar spine min 4V IMPRESSION: 1. Stable surgical changes without evidence of hardware failure or change in alignment. 2. Multilevel mild-moderate degenerative disc disease; slightly progressed. Electronically authenticated by: DAMARIS ESPINOSA Date: 07/25/2023 10:28
--- OUTSIDE RECORDS SUMMARY | 2023-07-25 09:40 | XMS_ITS | CCD ---
Author Organization [facility] Care Team Providers Care Laceworker Name Role Phone Lashay Li Admitting Unavailable [...] Unavailable HAY ., DR ARMENTA Admitting Unavailable JOEL ., DR JESSICA Huerta [...] LAKSHMIPATHY ., NARENDRANATH Admitting Jessy vailable CAROLANN, [facility] Primary Care Unavailable LAKSHMIPATHY ., NARENDRANATH Consulting Jessy vailable LAKSHMIPATHY ., NARENDRANATH Attending Jessy vailable LAKSHMIPATHY ., NARENDRANATH Admitting Jessy vailable CAROLANN, [facility] Primary Care Unavailable LAKSHMIPATHY ., NARENDRANATH Consulting [...] Carolann, Maribeth N Primary Care Unavailable Carolann, DO Maribeth N Primary Care Provider [phone] MD Nisha Villanueva Attending Provider Allergies Allergy Classification Reported Allergen(s) Allergy Type Date of Onset Reaction(s) Facility (16 sources) gabapentin Drug Allergy 3 dizziness, sleepy, Drowsy, Drowsy, dizziness, sleepy [facility] (1 source) gabapentin Drug Allergy [facility] Repository (10 sources) zonisamide Drug Allergy 3 diarrhea [facility] (1 source) gabapentin Drug Allergy 3 [facility] Repository (1 source) zonisamide Drug Allergy [address] [place] [address] Repository Medications Current Medications Medication Drug Class(es) [...] oral tablet (20 sources) Opioid Agonist Start: 07-21-2023 take 1 tablet by mouth twice daily Oxycodone-Acetaminophen Active 1 TAB PO Twice daily July 21, 2023 Start: 09-26-2022 End: 06-03-2023 take 1 tablet by mouth four times daily Oxycodone-Acetaminophen Discontinued 1 T AB PO Four times daily September 26, 2022 12:00am June 03, 2023 2:04pm Start: 05-08-2021 take 1 tablet by elizabeth [...] mg / cholecalciferol 0.01 mg oral tablet (2 sources) Vitamin D Start: 09-27-19 take 1 tablet by mouth once daily Calcium Carbonate-Vitamin D3 (Calcium 600 + D(3)) 600 mg-10 mcg (400 unit) Tablet Active 1 TAB PO Daily September 26, 2022 12:00am Cane - (10 sources) Start: 05-21-19 Cane - 1 14 May, 2021 Active Cannabis - Medical (18 sources) Cannabis [...] daily as needed for 90 days Active Diclofenac (8 sources) Nonsteroidal Anti-inflammatory Drug Start: 06-03-2023 Diclofenac Sodium (Voltaren Arthritis Pain) 1 % gel Active 2 GM TOPICAL Four times daily 100 30 June 03, 2023 1:00am take 1 tablet by elizabeth th every twelve hours Diclofenac Sodium 50 MG 1 tablet as need ed Orally Twice a day Active take 1 [...] Active diphenhydrAMINE hydrochloride 25 mg oral capsule (20 sources) Histamine-1 Receptor Antagonist Start: 09-26-2022 take [...] day(s) Jun, Active take 1 capsule by mo [facility] every twenty-four hours Cymbalta 60 MG 1 capsule Orally Once a day for 90 days Active Handicap placards as directed (18 sources) Start: 2018 Handicap placards as directed as directed as directed as directed Dec, Active hydroCHLOROthiazide 12.5 mg / losartan potassium 50 mg oral tablet (6 sources) Thiazide Diuretic, Angiotensin 2 Receptor Avery Start: 07-17-2023 take 1 tablet by mouth once daily Losartan-Alpine chlorothiazide Active 1 TAB PO Daily July 17, 2023 12:00am Start: 12-12-2022 take 1 tablet by elizabeth th every twenty-four hours Losartan Potassium-HCTZ 50-12.5 MG 1 tablet Orally Once a day for 90 days Dec, Active Start: 12-12-2022 take 1 tablet by elizabeth once daily Losartan Potassium-HCTZ 50-12.5 MG 1 tablet Orally Once a day for 90 days Dec, Active lactulose 667 mg/ml oral solution (3 sources) Osmotic Laxative Start: 07-15-2022 take 30 mL by mouth twice daily as needed Lactulose 20 GM/30ML 30 mL Orally bid prn for 30 days Jul, Active Magnesium (2 sources) Start: 09-26-2022 take 100 mg by mouth [...] May, Active niacin 500 mg oral tablet (2 sources) Nicotinic Acid Start: 09-26-2022 take 500 mg by mouth once daily Niacin Active 500 MG PO Daily September 26, 2022 12:00am ondansetron 8 mg oral tablet (7 sources) Serotonin-3 Receptor Antagonist Start: 05-29-2023 take 8 mg by mouth once daily Ondansetron Hcl Active 8 MG PO Daily May 29, 2023 1:00am take 1 tablet by elizabeth once daily as needed Zofran 8 MG 1 tablet as needed Orally Once a day Active polyethylene glycol 3350 502287 mg / potassium chloride 2970 mg / sodium bicarbonate 6740 mg / sodium chloride 5860 mg / sodium sulfate 20201 mg powder for oral solution (6 sources) Osmotic Laxative Start: 07-24-2022 Golytely 236 GM 8oz every 15 minutes Orally at 4pm the day prior to colonoscopy for 1 days Jul, Active predniSONE 20 mg oral tablet (15 sources) Start: 02-12-2021 take 2 tablets by mouth every twenty-four hours predniSONE 20 MG 2 tablet Orally Once a day for 7 days PRN Feb, Active pregabalin 50 mg oral capsule (6 sources) Start: 07-21-2023 take 50 mg by mouth twice daily Pregabalin Active 50 MG PO Twice daily July 21, 2023 12:00am Start: 12-17-2016 End: 01-29-2019 take 2 capsules by mouth twice daily Pregabalin (Lyrica) 75 mg capsule Discontinued 2 CAP PO Twice daily December 17, 2016 12:00am January 29, 2019 7:38am sennosides, mcfp 8.6 mg oral tablet (16 sources) Start: 02-01-2021 take 2 tablets by mouth once daily at bedtime as needed Senna Lax 8.6 MG 2 tablets at bedtime as needed Orally Once a day for 30 day(s) Jan, Active sildenafil 50 mg oral tablet (4 sources) Phosphodiesterase 5 Inhibitor Start: 07-17-2023 take 50 mg by mouth once daily Sildenafil Active 50 MG PO Daily July 17, 2023 12:00am Start: 01-17-2023 take 1 tablet by elizabeth th every twenty-four hours Sildenafil Citrate 50 MG [...] / HYDROcodone bitartrate 5 mg oral tablet (5 sources) Opioid Agonist Start: 12-17-2016 End: 09-26-2022 take 1 tablet by mouth twice daily Hydrocodone-Acetami nophen Discontinued 1 TAB PO Twice daily December 17, 2016 12:00am September 26, 2022 8:34am Cannabis (5 sources) Start: 01-21-2019 End: 09-26-2022 Cannabis Discontinued January 21, 2019 12:00am September 26, 2022 8:34am Start: 01-21-2019 Cannabis Activ e January 21, 2019 12:00am celecoxib 200 mg oral capsule (5 sources) Nonsteroidal Anti-inflammatory Drug Start: 12-17-2016 End: 09-26-2022 take 1 capsule by mouth twice daily Celecoxib Discontinued 1 CAP PO Twice daily December 17, 2016 12:00am September 26, 2022 8:34am lidocaine 0.04 mg/mg medicated patch (1 source) Antiarrhythmic, Amide Local Anesthetic Start: 06-03-2023 End: 07-21-2023 apply 1 dose topically twice daily Lidocaine Discontinued 1 PATCH TOPICAL Twice daily June 03, 2023 1:00am July 21, 2023 8:03am Medrol Dose Pack as directed (12 sources) [...] citrate 100 mg extended release oral tablet (5 sources) Muscle Relaxant Start: 01-21-2019 End: 09-26-2022 take 100 mg by mouth twice daily Orphenadrine Citrate Discontinued 100 MG PO Twice daily January 21, 2019 12:00am September 26, 2022 8:35am tiZANidine 4 mg oral tablet (5 sources) Central alpha-2 Adrenergic Agonist Start: 07-01-2017 [...] Translations: [Essential (primary) hypertension] Chronic Gastrointestinal hemorrhage (2 sources) Hemorrhage of anus and rectum; Translations: [Melena] Episodic Genitourinary symptoms and ill-defined conditions (1 source) Unspecified urinary incontinence; Translations: [UNSPECIFIED URINARY INCONTINENCE] Onset: 06-29-2022 Chronic Genitourinary symptoms and ill-defined conditions (1 source) Unspecified abnormal findings in urine Episodic Hemorrhoids (2 sources) Hemorrhoids; Translations: [Unspecified hemorrhoids] 07-21-2023 Episodic Hyperplasia of prostate (2 sources) Benign prostatic hyperplasia; Translations: [Benign prostatic hyperplasia without lower urinary tract symptoms] 07-21-2023 Chronic Osteoarthritis (20 sources) Localized, primary osteoarthritis of the wrist; Translations: [Primary osteoarthritis, 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 Other aftercare (4 sources) Encounter for therapeutic drug level monitoring; Translations: [Encounter for therapeutic drug level monitoring] Onset: 07-12-2022 Episodic Other aftercare (1 source) Other mcfp (current) drug therapy; Translations: [OTH BENCH MECH[employer]IC CURRENT DRUG THERAPY] Onset: 07-17-2022 Episodic Other connective tissue disease (1 source) Hand pain; Translations: [Pain in left hand] 06-02-2023 Episodic Other gastrointestinal disorders (20 sources) Slow [...] Translations: [Hemorrhage of anus and rectum] Onset: 06-22-2023 Unclassified (1 source) Disorder of lipoprotein metabolism, [...] 07-15-2022 Amylase [Catalytic activity/Vol] 43 U/L Normal [address] [facility] Comment on above: Order Comment: Reaso n for Exam Generalized abdominal pain;Slow transit constipation;Medicat Reason for Exam Generalized abdominal pain;Medication monitoring encounter NOT FASTING. JKW Performed By: #### C BC, POOJA, LIPASE #### [facility] [address] Amylase 43 U/L Normal 29-103 U/L [employer] Other Amylase [Enzymatic activity/ volume] in Serum or PlasmaOrdered By: Maribeht Vuong on 07-15-2022 Amylase [Catalytic activity/Vol] 43 U/L 29-103 [facility] Basophils Auto (Bld) [#/Vol] Ordered By: Maribeth Vuong on 07-15-2022 Basophils (Bld) [#/Vol] 0.0 10*3/uL 0.0-0.2 [facility] Basophils/100 WBC Auto (Bld) Ordered By: Maribeth Vuong on 07-15-2022 Basophils/100 WBC (Bld) 0.5 % . [facility] CBC W MANUAL DIFFon 07-16-19 23 ATYPICAL LYMPH # Normal [facility] Comment on above: Performed By: #### C BCMAN ####[facility] [address] [place] [address]DrIbrahima David ATYPICAL LYMPH % Normal [facility] Comment on above: Performed By: #### C JEAN ####[facility] [address] [place] [id number]. Yilan David BAND # 0.1 103/ul Normal 0.0-0.[address] [facility] Comment on above: Performed By: #### C JEAN ####[facility] [address] [place] [address]Dr. Yilan David BAND % 1 % Normal 0-[address] [facility] Comment on above: Performed By: #### C BCDOLORES ####[facility] [address] [place] [address]Dr. Yilan David BASOM # 0.00 103/ul Normal 0.00-0.[address] [facility] Comment on above: Performed By: #### C JEAN ####[facility] [address] [place] [address]Dr. Yilan David BASOM % 0.0 % Critically low 0.2-2.0 [facility] Comment on above: Performed By: #### C JEAN ####[facility] [address] [place] [address]Dr. Yilan David BLAST # Normal [facility] Comment on above: Performed By: #### C JEAN ####[facility] [address] [place] [address]Dr. Yilan David BLAST % Normal [facility] Comment on above: Performed By: #### C JEAN ####[facility] [address] [place], [place] [address]Dr. Yilan David CORRECTED WBC Normal 4.0-11.0 [facility] Comment on above: Performed By: #### C JEAN ####[facility] [address] [place] [address]Dr. Yilan David EOS # 0.24 103/ul Normal 0.00-0.[address] [facility] Comment on above: Performed By: #### C JEAN ####[facility] [address] [place], [place] [address]Dr. Yilan David EOS% 3.0 % Normal 0.9-7.0 [facility] Comment on above: Performed By: #### C JEAN ####[facility] [address] [place], [place] [address]Pn. Sydney David HCT 46.4 % Normal 42.0-54.[address] [facility] Comment on above: Performed By: #### C JEAN ####[facility] [address] [place], [place] [address]Lg. Sydney David HGB 15.4 g/dl Normal 14.0-18.[address] [facility] Comment on above: Performed By: #### C JEAN ####[facility] [address] [place], [place] [address]Mf. Sydney David LYMPHM # 3.36 103/ul Normal 1.20-3.[address] [facility] Comment on above: Performed By: #### C JEAN ####[facility] [address] [place] [id number]. Sydney David LYMPHM% 42.0 % Normal 20.5-60.0 [facility] Comment on above: Performed By: #### C JEAN ####[facility] [address] [place], [place] [address]Cy. Sydney David MCH 30.3 pg Normal 25.9-34.[address] [facility] Comment on above: Performed By: #### C JEAN ####[facility] [address] [place], [place] [address]Md. Sydney David MCHC 33.2 g/dl Normal 29.9-35.[address] [facility] Comment on above: Performed By: #### C JEAN ####[facility] [address]zc[address] [place], [place] [address]Bx. Sydney David MCV 91.3 fL Normal 80.0-94.[address] [facility] Comment on above: Performed By: #### C JEAN ####[facility] [address] [place], [place] [address]Fy. Sydney David METAMYELOCYTE # Normal [facility] Comment on above: Performed By: #### C JEAN ####[facility] [address] [place] [id number]. Sydney aDvid METAMYELOCYTE % Normal [facility] Comment on above: Performed By: #### C JEAN ####[facility] S[address] [place] [id number]. Sydney David MONOM# 0.80 103/ul Normal 0.30-0.80 [facility] Comment on above: Performed By: #### C JEAN ####[facility] [address]smp[address] [place] [id number]. Sydney David MONOM% 10.0 % Normal 1.7-12.0 [facility] Comment on above: Performed By: #### C JEAN ####[facility] [address] [place], [place] [address]Dr. Sydney David MPV 11.8 fL Normal 9.5-13.5 [facility] Comment on above: Performed By: #### C JEAN ####[facility] S[address] [place], [place] [address]Dr. Sydney David MYELOCYTE # Normal [facility] Comment on above: Performed By: #### C JEAN ####[facility] [address] [place], [place] [address]Dr. Sydney David MYELOCYTE % Normal [facility] Comment on above: Performed By: #### C JEAN ####[facility] [address] [place], [place] [address]Dr. Sydney David NRBC Normal [facility] Comment on above: Performed By: #### C JEAN ####[facility] [address]cj[address] [place] [id number]. Sydney David PLT 249 103/ul Normal 150-[address] [facility] Comment on above: Performed By: #### C JEAN ####[facility] [address] [place], [place] [address]Dr. Sydney David RBC 5.08 106/ul Normal 4.70-6.[address] [facility] Comment on above: Performed By: #### C JEAN ####[facility] Q[address] [place], [place] [address]Dr. Sydney David RDW 13.1 % Normal 11.0-15.0 [facility] Comment on above: Performed By: #### C JEAN ####[facility] [address] [place], [place] [address]NiIbrahima David SEG # 3.52 103/ul Normal 1.40-6.50 [facility] Comment on above: Performed By: #### C JEAN ####[facility] [address]vr[address] [place], [place] [address]BuIbrahima David SEG % 44.0 % Normal 43.0-75.0 [facility] Comment on above: Performed By: #### C JEAN ####[facility] [address]fb[address] [place], [place] [address]YmIbrahima David WBC 8.0 103/ul Normal 4.0-11.0 [facility] Comment on above: Performed By: #### C JEAN ####[facility] [address]uv[address] [place], [place] [address] ABD/PELV W CONon 07-16-19 23 [...] EVANGELIST LEOS Date: 2022-07-15 16:53 Normal [facility] Complete Blood Count Auto Di ffon 07-15-2022 Basophils (Bld) [#/Vol] 0.0 10*3/uL Normal 0.0-0.2 [facility] Comment on above: Order Comment: Reaso n for Exam Medication monitoring encounter Result Comment: PERF ORMED BY: [place] [address] PATHOLOGIST MONITOR TECH ALEM GARCIA M.D. Performed By: #### C BC, POOJA, LIPASE #### [address] Basophils/100 WBC (Bld) 0.5 % Normal . [facility] Comment on above: Order Comment: Reaso n for Exam Medication monitoring encounter Performed By: #### C BC, POOJA, LIPASE #### [address] Eosinophils (Bld) [#/Vol] 0.6 10*3/uL High 0.0-0.45 [facility] Comment on above: Order Comment: Reaso n for Exam Medication monitoring encounter Performed By: #### C BC, POOJA, LIPASE #### [address] Eosinophils/100 WBC (Bld) 6.1 % Normal . [facility] Comment on above: Order Comment: Reaso n for Exam Medication monitoring encounter Performed By: #### C BC, POOJA, LIPASE #### [facility] [address] [place] [address] Erythrocyte distribution width (RBC) [Ratio] 13.6 % Normal 12.0-14.8 [facility] Comment on above: Order Comment: Reaso n for Exam Medication monitoring encounter Performed By: #### C BC, POOJA, LIPASE #### [address] Hematocrit (Bld) [Volume fraction] 47.4 % Normal 38.8-50.0 [facility] Comment on above: Order Comment: Reaso n for Exam Medication monitoring encounter Performed By: #### C BC, POOJA, LIPASE #### [address] Hemoglobin (Bld) [Mass/Vol] 15.5 g/dL Normal 13.0-17.0 [facility] Comment on above: Order Comment: Reaso n for Exam Medication monitoring encounter Performed By: #### C BC, POOJA, LIPASE #### [address] Lymphocytes (Bld) [#/Vol] 4.3 10*3/uL Normal 1.00-4.8 [facility] Comment on above: Order Comment: Reaso n for Exam Medication monitoring encounter Performed By: #### C BC, POOJA, LIPASE #### [address] Lymphocytes/100 WBC (Bld) 46.5 % Normal . [facility] Comment on above: Order Comment: Reaso n for Exam Medication monitoring encounter Performed By: #### C BC, POOJA, LIPASE #### [address] MCH (RBC) [Entitic mass] 30.2 pg Normal 27.5-35.2 [facility] Comment on above: Order Comment: Reaso n for Exam Medication monitoring encounter Performed By: #### C BC, POOJA, LIPASE #### [address] MCV (RBC) [Entitic vol] 92.3 fL Normal 83.5-101 F [facility] Comment on above: Order Comment: Reaso n for Exam Medication monitoring encounter Performed By: #### C BC, POOJA, LIPASE #### [address] Mean Corpuscular HGB Conc 32.7 g/dL Normal 32.5-35.6 [facility] Comment on above: Order Comment: Reaso n for Exam Medication monitoring encounter Performed By: #### C BC, POOJA, LIPASE #### [address] [place] [address] [place] Monocytes (Bld) [#/Vol] 0.8 10*3/uL Normal 0.0-0.8 [facility] Comment on above: Order Comment: Reaso n for Exam Medication monitoring encounter Performed By: #### C BC, POOJA, LIPASE #### [facility] [address] Monocytes/100 WBC (Bld) 8.3 % Normal . [facility] Comment on above: Order Comment: Reaso n for Exam Medication monitoring encounter Performed By: #### C BC, POOJA, LIPASE #### [facility] [address] [place] [address] Neutrophils (Bld) [#/Vol] 3.6 10*3/uL Normal 1.8-7.7 [facility] Comment on above: Order Comment: Reaso n for Exam Medication monitoring encounter Performed By: #### C BC, POOJA, LIPASE #### [address] Neutrophils/100 WBC (Bld) 38.6 % Normal . [facility] Comment on above: Order Comment: Reaso n for Exam Medication monitoring encounter Performed By: #### C BC, POOJA, LIPASE #### [facility] [address] [place] [address] NRBC% 0.0 /100{WBC} Normal 0-0.5 [facility] Comment on above: Order Comment: Reaso n for Exam Medication monitoring encounter Performed By: #### C BC, POOJA, LIPASE #### [address] Platelet mean volume (Bld) [Entitic vol] 11.1 fL High 6.6-10.1 [facility] Comment on above: Order Comment: Reaso n for Exam Medication monitoring encounter Performed By: #### C BC, POOJA, LIPASE #### [address] WBC (Bld) [#/Vol] 9.2 10*3/uL Normal 4.1-10.5 [facility] Comment on above: Order Comment: Reaso n for Exam Medication monitoring encounter Performed By: #### C BC, POOJA, LIPASE #### [facility] [address] Basophils (Bld) [#/Vol] 0.578179558 10*3/uL Normal 0.0-0.2 10*3/uL [employer] Other Basophils/100 WBC (Bld) 0.500 % . % N [employer] Other Eosinophils (Bld) [#/Vol] 0.828059297 10*3/uL High 0.0-0.45 10*3/uL [employer] Other Eosinophils/100 WBC (Bld) 6.100 % . % [employer] Other Erythrocyte distribution width (RBC) [Ratio] 13.600 % Normal 12.0-14.8 % [employer] Other Hematocrit (Bld) [Volume fraction] 47.400 % Normal 38.8-50.0 % [employer] Other Hemoglobin (Bld) [Mass/Vol] 15.730190 g/dL Normal 13.0-17.0 g/dL [employer] Other Lymphocytes (Bld) [#/Vol] 4.720676160 10*3/uL Normal 1.00-4.8 10*3/uL [employer] Other Lymphocytes/100 WBC (Bld) 46.500 % . % [employer] Other MCH (RBC) [Entitic mass] 30.2000 pg Normal 27.5-35.2 pg [employer] Other MCV (RBC) [Entitic vol] 92.3000 fL Normal 83.5-101 fL [employer] Other Monocytes (Bld) [#/Vol] 0.032666668 10*3/uL Normal 0.0-0.8 10*3/uL [employer] Other Monocytes/100 WBC (Bld) 8.300 % . % [facility] [employer] Other Neutrophils (Bld) [#/Vol] 3.113623604 10*3/uL Normal 1.8-7.7 10*3/uL [employer] Other Neutrophils/100 WBC (Bld) 38.600 % . % [employer] Other Platelet mean volume (Bld) [Entitic vol] 11.1000 fL High 6.6-10.1 fL [employer] Other WBC (Bld) [#/Vol] 9.907367630 10*3/uL Normal 4.1 -10.5 10*3/uL [employer] Other Complete Blood Count Auto Diff 9.2 10*3/uL Normal 4.1-10.5 10*3/uL [employer] Other Complete Blood Count Auto Diff 32.7 g/dL Normal 32.5-35.6 g/dL [employer] Other Complete Blood Count Auto Diff 0.0 /100{WBC} Normal 0-0.5 /100{WBC} [employer] Other Complete Blood Count Auto Di ffOrdered By: Maribeth Vuong on 07-15-2022 Platelets (Bld) [#/Vol] 236 10*3/uL Normal 150-450 [facility] Comment on above: Order Comment: Reaso n for Exam Medication monitoring encounter Performed By: #### C BC, POOJA, LIPASE #### [facility] [address] RBC (Bld) [#/Vol] 5.13 10*6/uL Normal 3.90-5.60 [facility] Comment on above: Order Comment: Reaso n for Exam Medication monitoring encounter Performed By: #### C BC, POOJA, LIPASE #### [facility] [address] ER URINE PROFILEon 3 Bilirubin Ql (U) Negative Normal NEGATIVE [facility] Comment on above: Performed By: #### E RUR ####[facility] [address] [place], [place] [address]Dr. Sydney David Clarity (U) CLEAR Normal CLEAR [facility] Comment on above: Performed By: #### E RUR ####[facility] [address] [place], [place] [address]Dr. Sydney David Color (U) LT. YELLOW Normal YELLOW [facility] Comment on above: Performed By: #### E RUR ####[facility] [address] [place], [place] [address]Dr. Keymera David ERUAHD A micrscopic examination will be performed if indicated. Normal [facility] Comment on above: Performed By: #### E RUR ####[facility] [address] [place], [place] [address]Dr. Sydney David Glucose Ql (U) Negative Normal NEGATIVE [facility] Comment on above: Performed By: #### E RUR ####[facility] [address] [place], [place] [address]Dr. Sydney David Hemoglobin Ql (U) Negative Normal NEGATIVE [facility] Comment on above: Performed By: #### E RUR ####[facility] [address] [place], [place] [address]Dr. Keymera David Ketones Ql (U) Negative Normal NEGATIVE [facility] Comment on above: Performed By: #### E RUR ####[facility] Myxzbmxtur[address] [place], [place] [address]Dr. Sydney David LEUKOCYTES Negative Normal NEGATIVE [facility] Comment on above: Performed By: #### E RUR ####[facility] [address] [place], [place] [address]Dr. Sydney David Nitrite Ql (U) Negative Normal NEGATIVE [facility] Comment on above: Performed By: #### E RUR ####[facility] [address]fkt[address] [place], [place] [address]Dr. Keymera David pH (U) 5.5 [pH] Normal 5-9 [facility] Comment on above: Performed By: #### E RUR ####[facility] [address] [place] [address]Dr. Sydney David SPEC GRAVITY 1.010 Normal 1.005-<=1.0 25 [facility] Comment on above: Performed By: #### E RUR ####[facility] [address] [place] [address] [address]Dr. Sydney Frankie UA PROTEIN Negative Normal NEGATIVE/ TRACE [facility] Comment on above: Performed By: #### E RUR ####[facility] [address] [place] [address] [address]Dr. Sydney David UR MICRO IND NOT INDICATED Normal [facility] Comment on above: Performed By: #### E RUR ####[facility] [address] [place] [address]Dr. Sydney Frankie Urobilinogen Qn (U) 0.2 {Johan'U}/dL Normal 0.2 - 1. 0 [facility] Comment on above: Performed By: #### E RUR ####[facility] [address]iae[address] [place], [place] [address]Dr. Keymera Frankie Eosinophils Auto (Bld) [#/Vo l]Ordered By: Maribeth Vuong on 07-15-2022 Eosinophils (Bld) [#/Vol] 0.6 10*3/uL 0.0-0.45 [facility] Eosinophils/100 WBC Auto (Bl d)Ordered By: Maribeth Vuong on 07-15-2022 Eosinophils/100 WBC (Bld) 6.1 % . [facility] Erythrocyte distribution wid th Auto (RBC) [Ratio]Ordered By: Maribeth Vuong on 07-15-2022 Erythrocyte distribution width (RBC) [Ratio] 13.6 % 12.0-14.8 [facility] Hematocrit Auto (Bld) [Volum e fraction]Ordered By: Maribeth Vuong on 07-15-2022 Hematocrit (Bld) [Volume fraction] 47.4 % 38.8-50.0 [facility] Hemoglobin [Mass/volume] in BloodOrdered By: Maribeth Vuong on 07-15-2022 Hemoglobin (Bld) [Mass/Vol] 15.5 g/dL 13.0-17.0 [facility] Leukocytes [#/volume] correc gris for nucleated erythrocytes in Blood by Automated counOrdered By: Maribeth Vuong on 07-15-2022 WBC corrected for nucl RBC Auto (Bld) [#/Vol] 9.2 10*3/uL 4.1-10.5 [facility] Lipaseon 07-15-2022 Lipase [Catalytic activity/Vol] 80.0 U/L Normal 11.0-82.0 [facility] Comment on above: Order Comment: Reaso n for Exam Generalized abdominal pain;Slow transit constipation;Medicat Reason for Exam Generalized abdominal pain;Medication monitoring encounter NOT FASTING. JKW Result Comment: PERF ORMED BY: [place] [id number] PATHOLOGIST MONITOR TECH ALEM GARCIA M.D. Performed By: #### C BC, POOJA, LIPASE #### [address] Lipase [Catalytic activity/Vol] 80.98055 U/L Normal 11.0-82.0 U/L [employer] Other Lipase [Enzymatic activity/v olume] in Serum or PlasmaOrdered By: Maribeth Vuong on 07-15-2022 Lipase [Catalytic activity/Vol] 80.0 U/L 11.0-82.0 [facility] Lymphocytes Auto (Bld) [#/Vo l]Ordered By: Maribeth Vuong on 07-15-2022 Lymphocytes (Bld) [#/Vol] 4.3 10*3/uL 1.00-4.8 [facility] Lymphocytes/100 WBC Auto (Bl d)Ordered By: Maribeth Vuong on 07-15-2022 Lymphocytes/100 WBC (Bld) 46.5 % . [facility] MCH Auto (RBC) [Entitic mass ]Ordered By: Maribeth Vuong on 07-15-2022 MCH (RBC) [Entitic mass] 30.2 pg 27.5-35.2 [facility] MCHC Auto (RBC) [Mass/Vol]Or dered By: Maribeth Vuong on 07-15-2022 MCHC (RBC) [Mass/Vol] 32.7 g/dL 32.5-35.6 [facility] MCV Auto (RBC) [Entitic vol] Ordered By: Maribeth Vuong on 07-15-2022 MCV (RBC) [Entitic vol] 92.3 fL 83.5-101 [facility] Monocytes Auto (Bld) [#/Vol] Ordered By: Maribeth Vuong on 07-15-2022 Monocytes (Bld) [#/Vol] 0.8 10*3/uL 0.0-0.8 [facility] Monocytes/100 WBC Auto (Bld) Ordered By: Maribeth Vuong on 07-15-2022 Monocytes/100 WBC (Bld) 8.3 % . [facility] Neutrophils Auto (Bld) [#/Vo l]Ordered By: Maribeth Vuong on 07-15-2022 Neutrophils (Bld) [#/Vol] 3.6 10*3/uL 1.8-7.7 [facility] Neutrophils/100 WBC Auto (Bl d)Ordered By: Maribeth Vuong on 07-15-2022 Neutrophils/100 WBC (Bld) 38.6 % . [facility] Nucleated erythrocytes [Pres ence] in Blood by Automated countOrdered By: Maribeth Vuong on 07-15-2022 Nucleated RBC Auto Ql (Bld) 0.0 /100{WBC} 0-0.5 [facility] PROF CHEM 8 (BAS METB)on Anion gap [Moles/Vol] 13.3 mmol/L Normal [facility] Comment on above: Performed By: #### B MP #### [facility] [address] [address] [address] Sydney Davdi Calcium [Mass/Vol] 9.1 mg/dL Normal 8.5-10.1 [facility] Comment on above: Performed By: #### B MP #### [facility] [address] [place], [place] [address] Dr. Sydney David Chloride [Moles/Vol] 102 mmol/L Normal 98-107 [facility] Comment on above: Performed By: #### B MP #### [facility] [address] [address] [address] Sydney David CO2 [Moles/Vol] 27.2 mmol/L Normal 21.0-32.0 [facility] Comment on above: Performed By: #### B MP #### [facility] [address] [address] [address] Sydney David Creatinine [Mass/Vol] 1.08 mg/dL Normal 0.70-1.30 [facility] Comment on above: Performed By: #### B MP #### [facility] [address] [address] [address] Sydney David EGFR-AF TUNISIAN >60 Normal >=60 [facility] Comment on above: Performed By: #### B MP #### [facility] [address] [address] [address] Sydney David EGFR-NON AF TUNISIAN >60 Normal >=60 [facility] Comment on above: Performed By: #### B MP #### [facility] [address] [address] [address] Sydney David Glucose [Mass/Vol] 116 mg/dL Critically high 74-106 [facility] Comment on above: Performed By: #### B MP #### [facility] [address] [address] [address] Sydney David Potassium [Moles/Vol] 3.5 mmol/L Normal 3.5-5.1 [facility] Comment on above: Performed By: #### B MP #### [facility] [address] [address] [address] Sydney David Sodium [Moles/Vol] 139 mmol/L Normal 136-145 [facility] Comment on above: Performed By: #### B MP #### [facility] [address] [address] [address] Sydney David Urea nitrogen [Mass/Vol] 12.0 mg/dL Normal 7.0-18.0 [facility] Comment on above: Performed By: #### B MP #### [facility] [address] [place], [place] [address] Dr. Sydney David Urea nitrogen/Creatinine [Mass ratio] 11.1 mg/mg Normal [facility] Comment on above: Performed By: #### B MP #### [facility] [address] [place], [place] [address] Dr. Sydney David Platelet mean volume Auto (B ld) [Entitic vol]Ordered By: Maribeth Vuong on 07-15-2022 Platelet mean volume (Bld) [Entitic vol] 11.1 fL 6.6-10.1 [facility] WBC Auto (Bld) [#/Vol]Ordere d By: Maribeth Vuong on 07-15-2022 WBC (Bld) [#/Vol] 9.2 10*3/uL 4.1-10.5 [facility] XR KUBon 07-15-2022 XR KUB [facility] [place] [address] XRay Report Signed Patient: Neal Irene MR#: [id number] : 1980 Acct:[id number] Age/Sex: 41 / M ADM Date: 07/15/22 Loc: [facility] Room: Type: [facility] Attending Dr: Maribeth Vuong DO Copies to: [...] Greer Jr., D.O.07/15/2022 4:05 PM Dictation Location: [place] [address] Transcribed By: [facility] 07/15/22 1605 Dictated By: Sonny Greer Jr, DO 07/15/22 1604 Signed By: 07/15/22 1605 Normal [facility] Alanine aminotransferase [En zymatic activity/volume] in Serum or PlasmaOrdered By: Maribeth Vuong on 07-12-2022 ALT [Catalytic activity/Vol] 68 U/L 7-52 [facility] Albumin [Mass/volume] in Ser um or Plasma by Bromocresol green (BCG) dye binding methoOrdered By: Maribeth Vuong on 07-12-2022 Albumin BCG dye [Mass/Vol] 4.7 g/dL 3.5-5.7 [facility] Alkaline phosphatase [Enzyma tic activity/volume] in Serum or PlasmaOrdered By: Maribeth Vuong on 07-12-2022 ALP [Catalytic activity/Vol] 33 U/L 34-104 [facility] Aspartate aminotransferase [ Enzymatic activity/volume] in Serum or PlasmaOrdered By: Maribeth Vuong on 07-12-2022 AST [Catalytic activity/Vol] 29 U/L 13-39 [facility] Bilirubin.total [Mass/volume ] in Serum or PlasmaOrdered By: Maribeth Vuong on 07-12-2022 Bilirubin [Mass/Vol] 0.6 mg/dL 0.3-1.0 [facility] Calcium [Mass/volume] in Ser um or PlasmaOrdered By: Maribeth Vuong on 07-12-2022 Calcium [Mass/Vol] 10.1 mg/dL 8.6-10.3 [facility] Carbon dioxide, total [Moles /volume] in Serum or PlasmaOrdered By: Maribeth Vuong on 07-12-2022 CO2 [Moles/Vol] 27.5 mmol/L 21.0-31.0 [facility] Chloride [Moles/volume] in S flash or PlasmaOrdered By: Maribeth Vuong on 07-12-2022 Chloride [Moles/Vol] 106 mmol/L 98-107 [facility] Cholesterol [Mass/volume] in Serum or PlasmaOrdered By: Maribeth Vuong on 07-12-2022 Cholesterol [Mass/Vol] 296 mg/dL 140-200 [facility] Comment on above: Chol less than 200 m g/dl low riskChol 201-239 mg/dl borderline riskChol 240 mg/dl and greater high risk Cholesterol in LDL Calc [Mas s/Vol]Ordered By: Maribeth Vuong on 07-12-2022 Cholesterol in LDL [Mass/Vol] 206 mg/dL 0-100 [facility] Comment on above: LDL ATP III CLASSIFI CATIONLDL less than 100 mg/dL OptimalLDL 100-129 mg/dL Near or above optimalLDL 130-159 mg/dL Borderline highLDL 160-189 mg/dL HighLDL greater than 189 mg/dL Very high Cholesterol in VLDL Calc [Ma ss/Vol]Ordered By: Maribeth Vuong on 07-12-2022 Cholesterol in VLDL [Mass/Vol] 53 mg/dL [facility] Comprehensive Metabolic Pane jenni 07-12-2022 Albumin [Mass/Vol] 4.7 g/dL Normal 3.5-5.7 [facility] Comment on above: Order Comment: PT FA STED 12 HOURS Reason for Exam Well adult exam;Lipid disorder;Medication monitoring encount Reason for Exam Lipid disorder Performed By: #### L IPID, PSAS W RFX, CMP #### [facility] [address] Albumin/Globulin [Mass ratio] 1.8 {ratio} Normal [facility] Comment on above: Order Comment: PT FA STED 12 HOURS Reason for Exam Well adult exam;Lipid disorder;Medication monitoring encount Reason for Exam Lipid disorder Performed By: #### L IPID, PSAS W RFX, CMP #### [facility] [address] [place] [address] [place] ALP [Catalytic activity/Vol] 33 U/L Low 34-104 [facility] Comment on above: Order Comment: PT FA STED 12 HOURS Reason for Exam Well adult exam;Lipid disorder;Medication monitoring encount Reason for Exam Lipid disorder Performed By: #### L IPID, PSAS W RFX, CMP #### [facility] [address] [place] [address] [place] ALT [Catalytic activity/Vol] 68 U/L High 7-52 [facility] Comment on above: Order Comment: PT FA STED 12 HOURS Reason for Exam Well adult exam;Lipid disorder;Medication monitoring encount Reason for Exam Lipid disorder Performed By: #### L IPID, PSAS W RFX, CMP #### [facility] [address] Anion gap [Moles/Vol] 11.8 mmol/L Normal 6.0-15.0 [facility] Comment on above: Order Comment: PT FA STED 12 HOURS Reason for Exam Well adult exam;Lipid disorder;Medication monitoring encount Reason for Exam Lipid disorder Performed By: #### L IPID, PSAS W RFX, CMP #### [facility] [address] AST [Catalytic activity/Vol] 29 U/L Normal 13-39 [facility] Comment on above: Order Comment: PT FA STED 12 HOURS Reason for Exam Well adult exam;Lipid disorder;Medication monitoring encount Reason for Exam Lipid disorder Performed By: #### L IPID, PSAS W RFX, CMP #### [facility] [address] [place] [address] Bilirubin [Mass/Vol] 0.6 mg/dL Normal 0.3-1.0 [facility] Comment on above: Order Comment: PT FA STED 12 HOURS Reason for Exam Well adult exam;Lipid disorder;Medication monitoring encount Reason for Exam Lipid disorder Performed By: #### L IPID, PSAS W RFX, CMP #### [facility] [address] [place] [address] Calcium [Mass/Vol] 10.1 mg/dL Normal 8.6-10.3 [facility] Comment on above: Order Comment: PT FA STED 12 HOURS Reason for Exam Well adult exam;Lipid disorder;Medication monitoring encount Reason for Exam Lipid disorder Performed By: #### L IPID, PSAS W RFX, CMP #### [facility] [address] [place] [address] [place] Chloride [Moles/Vol] 106 mmol/L Normal 98-107 [facility] Comment on above: Order Comment: PT FA STED 12 HOURS Reason for Exam Well adult exam;Lipid disorder;Medication monitoring encount Reason for Exam Lipid disorder Performed By: #### L IPID, PSAS W RFX, CMP #### [facility] [address] [place] [address] CO2 [Moles/Vol] 27.5 mmol/L Normal 21.0-31.0 [facility] Comment on above: Order Comment: PT FA STED 12 HOURS Reason for Exam Well adult exam;Lipid disorder;Medication monitoring encount Reason for Exam Lipid disorder Performed By: #### L IPDANNIELLE, PSAS W RFX, CMP #### [facility] [address] Creatinine [Mass/Vol] 0.96 mg/dL Normal 0.70-1.30 [facility] Comment on above: Order Comment: PT FA STED 12 HOURS Reason for Exam Well adult exam;Lipid disorder;Medication monitoring encount Reason for Exam Lipid disorder Performed By: #### L SOLOMON PSAS W RFX, CMP #### [facility] [address] [place] [address] GFR/1.73 sq M.predicted MDRD (S/P/Bld) [Vol rate/Area] mL/min/{1.73_m2} [facility] Comment on above: Order Comment: PT FA STED 12 HOURS Reason for Exam Well adult exam;Lipid disorder;Medication monitoring encount Reason for Exam Lipid disorder Performed By: #### L IPID, PSAS W RFX, CMP #### [facility] [address] [place] [address] Globulin (S) [Mass/Vol] 2.6 g/dL Normal [facility] Comment on above: Order Comment: PT FA STED 12 HOURS Reason for Exam Well adult exam;Lipid disorder;Medication monitoring encount Reason for Exam Lipid disorder Performed By: #### L IPID, PSAS W RFX, CMP #### [facility] [address] [place] [address] Glucose [Mass/Vol] 106 mg/dL High 70-100 [facility] Comment on above: Order Comment: PT FA STED 12 HOURS Reason for Exam Well adult exam;Lipid disorder;Medication monitoring encount Reason for Exam Lipid disorder Result Comment: [facility] Glucose Reference Range is dependent on time and content of last meal. Glucose of more than 200 mg/dL in a nonstressed, ambulatory subject supports the diagnosis of Diabetes Mellitus. ADA recommended reference range Performed By: #### L IPID, PSAS W RFX, CMP #### [facility] [address] Potassium [Moles/Vol] 4.3 mmol/L Normal 3.5-5.1 [facility] Comment on above: Order Comment: PT FA STED 12 HOURS Reason for Exam Well adult exam;Lipid disorder;Medication monitoring encount Reason for Exam Lipid disorder Performed By: #### L SOLOMON PSAS W RFX, CMP #### [facility] [address] Protein [Mass/Vol] 7.3 g/dL Normal 6.4-8.9 [facility] Comment on above: Order Comment: PT FA STED 12 HOURS Reason for Exam Well adult exam;Lipid disorder;Medication monitoring encount Reason for Exam Lipid disorder Performed By: #### L JASSI CARBAJALS W RFX, CMP #### [facility] [address] [place] [address] Sodium [Moles/Vol] 141 mmol/L Normal 136-145 [facility] Comment on above: Order Comment: PT FA STED 12 HOURS Reason for Exam Well adult exam;Lipid disorder;Medication monitoring encount Reason for Exam Lipid disorder Performed By: #### L SOLOMON PSAS W RFX, CMP #### [facility] [address] [place] [address] Urea nitrogen [Mass/Vol] 12 mg/dL Normal 7-25 [facility] Comment on above: Order Comment: PT FA STED 12 HOURS Reason for Exam Well adult exam;Lipid disorder;Medication monitoring encount Reason for Exam Lipid disorder Performed By: #### L SOLOMON PSAS W RFX, CMP #### [facility] [address] [place] [address] Creatinine [Mass/volume] in Serum or PlasmaOrdered By: Maribeth Vuong on 07-12-2022 Creatinine [Mass/Vol] 0.96 mg/dL 0.70-1.30 [facility] Globulin Calc (S) [Mass/Vol] Ordered By: Maribeth Vuong on 07-12-2022 Globulin (S) [Mass/Vol] 2.6 g/dL [facility] Glucose [Mass/volume] in Ser um or PlasmaOrdered By: Maribeth Vuong on 07-12-2022 Glucose [Mass/Vol] 106 mg/dL 70-100 [facility] Comment on above: ADA recommended refe rence rangeRandom Glucose Reference Range is dependent on time and content of last meal. Glucose of more than 200 mg/dL in a nonstressed, ambulatory subject supports the diagnosis of Diabetes Mellitus. Lipid Panelon 07-12-2022 Cholesterol [Mass/Vol] 296 mg/dL High 140-200 [facility] Comment on above: Order Comment: PT FA STED 12 HOURS Reason for Exam Well adult exam;Lipid disorder;Medication monitoring encount Reason for Exam Lipid disorder Result Comment: Chol less than 200 mg/dl low risk Chol 201-239 mg/dl borderline risk Chol 240 mg/dl and greater high risk Performed By: #### L IPID, PSAS W RFX, CMP #### [facility] [address] Cholesterol in HDL [Mass/Vol] 37 mg/dL Normal 29-71 [facility] Comment on above: Order Comment: PT FA STED 12 HOURS Reason for Exam Well adult exam;Lipid disorder;Medication monitoring encount Reason for Exam Lipid disorder Result Comment: HDL CHOL ATP-III CLASSIFICATION Cardiovascular Risk HDL > or equal to 60 mg/dL LOW HDL < 40 mg/dL HIGH Performed By: #### L IPID, PSAS W RFX, CMP #### [facility] [address] Cholesterol.total/Patti sterol in HDL [Mass ratio] 8.0 {ratio} Normal <5.0 [facility] Comment on above: Order Comment: PT FA STED 12 HOURS Reason for Exam Well adult exam;Lipid disorder;Medication monitoring encount Reason for Exam Lipid disorder Result Comment: PERF ORMED BY: [place] [id number] PATHOLOGIST MONITOR TECH ALEM GARCIA M.D. Performed By: #### L IPID, PSAS W RFX, CMP #### [facility] [address] [place] [id number] [facility] LDL Cholesterol,Calculated 206 mg/dL High 0-100 [facility] Comment on above: Order Comment: PT FA [...] L IPID, PSAS W RFX, CMP #### [facility] [address] Triglyceride w/Reflex 266 mg/dL High 0-149 [facility] Comment on above: Order [...] L IPID, PSAS W RFX, CMP #### [facility] [address] VLDL CHOLESTEROL 53 mg/dL Normal [facility] Comment on above: Order Comment: PT FA STED 12 HOURS Reason for Exam Well adult exam;Lipid disorder;Medication monitoring encount Reason for Exam Lipid disorder Performed By: #### L IPID, PSAS W RFX, CMP #### [facility] [address] No Panel InformationOrdered By: Maribeth Vuong on 07-12-2022 Estimated GFR (CKD-EPI) > 60.0 mL/Min [facility] Creatinine Clearance (Chem N/A [facility] PSA Screen (Yearly) w/Reflex on 07-12-2022 PSA Screen (Yearly) w/Reflex 0.670 ng/mL Normal 0.000-4.000 [facility] Comment on above: Order Comment: Reaso n for Exam Well adult exam;Prostate cancer screening Is patient <50 yrs? Medicare does not pay <50.: Y What is the date of the last PSA Screen?: N/A Is Medicare the insurance?: N Did you verify eligibility (Dx Time) check TestViewGp: YES TO ALL Result Comment: PERF ORMED BY: [place] [id number] PATHOLOGIST MONITOR TECH ALEM GARCIA M.D. Performed By: #### L IPID, PSAS W RFX, CMP #### [facility] [address] Potassium [Moles/volume] in Serum or PlasmaOrdered By: Maribeth Vuong on 07-12-2022 Potassium [Moles/Vol] 4.3 mmol/L 3.5-5.1 [facility] Prostate specific Ag [Mass/v olume] in Serum or PlasmaOrdered By: Maribeth Vuong on 07-12-2022 Prostate specific Ag [Mass/Vol] 0.670 ng/mL 0.000-4.000 [facility] Protein [Mass/volume] in Ser um or PlasmaOrdered By: Maribeth Vuong on 07-12-2022 Protein [Mass/Vol] 7.3 g/dL 6.4-8.9 [facility] Serum or plasma albumin/glob ulin mass ratioOrdered By: Maribeth Vuong on 07-12-2022 Albumin/Globulin [Mass ratio] 1.8 {ratio} [facility] Serum or plasma anion gap de terminationOrdered By: Maribeth Vuong on 07-12-2022 Anion gap [Moles/Vol] 11.8 mmol/L 6.0-15.0 [facility] Serum or plasma high density lipoprotein (HDL) cholesterol measurementOrdered By: Maribeth Vuong on 07-12-2022 Cholesterol in HDL [Mass/Vol] 37 mg/dL 29-71 [facility] Comment on above: HDL CHOL ATP-III CLA SSIFICATION Cardiovascular RiskHDL > or equal to 60 mg/dL LOWHDL < 40 mg/dL HIGH Serum or plasma total choles terol/high density lipoprotein (HDL) cholesterol mass ratOrdered By: Maribeth Vuong on 07-12-2022 Cholesterol.total/Patti sterol in HDL [Mass ratio] 8.0 {ratio} <5.0 [facility] Sodium [Moles/volume] in Ser um or PlasmaOrdered By: Maribeth Vuong on 07-12-2022 Sodium [Moles/Vol] 141 mmol/L 136-145 [facility] Triglyceride [Mass/volume] i n Serum or PlasmaOrdered By: Maribeth Vuong on 07-12-2022 Triglyceride [Mass/Vol] 266 mg/dL 0-149 [facility] Comment on above: TRIG ATP III CLASSIF ICATIONTRIG less than 150 mg/dL NormalTRIG 150-199 mg/dL Borderline highTRIG 200-500 mg/dL High TRIG greater than 500 mg/dL Very highStandard traceable to the Center for Disease Conrtrol and Prevention (CDC) test method. Urea nitrogen [Mass/volume] in Serum or PlasmaOrdered By: Maribeth Vuong on 07-12-2022 Urea nitrogen [Mass/Vol] 12 mg/dL 10-29 [facility] XR LSPINE 2_3 VIEWSon 2022 XR LSPINE [...] DAMARIS ESPINOSA Date: 2022-07-02 14:57 Normal [facility] MRI PELVIS WO CONon 06-28-19 MRI PELVIS WO CON EXAMINATION: MRI PELVIS [...] by: DAMARIS ESPINOSA Date: 2022-06-27 09:45 Normal [facility] MRI LSHINTON WO CONon 06-27-19 23 MRI LSHINTON WO CON EXAMINATION: MRI LSHINTON WO CON HISTORY: Lumbar radiculitis , urinary [...] by: RENE LAUREN Date: 2022-06-26 15:24 Normal [facility] XR lumbar spine AP/LAT/FLX/E [employer]Ton 01-08-2021 XR lumbar spine AP/LAT/FLX/EXT [facility] [employer] Other XR lumbar spine AP/LAT/FLX/EXT [facility] [employer] Other XR lumbar spine AP/LAT/FLX/EXT [address] [place] [address] [employer] Other XR lumbar spine AP/LAT/FLX/[place] [address] [employer] Other XR lumbar spine AP/LAT/FLX/EXT XRay Report [employer] Other XR lumbar spine AP/LAT/FLX/EXT Signed [employer] Other XR lumbar spine AP/LAT/FLX/EXT Patient: Neal Irene MR#: [id number] [employer] Other XR lumbar spine AP/LAT/FLX/EXT 206 [employer] Other XR lumbar spine AP/LAT/FLX/EXT : 1980 Acct:[id number] [employer] Other XR lumbar spine AP/LAT/FLX/EXT Age/Sex: 40 / M ADM Date: 01/08/21 [employer] Other XR lumbar spine AP/LAT/FLX/EXT Loc: SOXD Room: Type: [facility] [employer] Other XR lumbar spine AP/LAT/FLX/EXT Attending Dr: Charles Solares MD [employer] Other XR lumbar spine AP/LAT/FLX/EXT Ordering Provider: Charles Solares MD [employer] Other XR lumbar spine AP/LAT/FLX/EXT Date of Service: 01/08/21 [employer] Other XR lumbar spine AP/LAT/FLX/EXT XR/XR lumbar spine AP/LAT/FLX/EXT: Other spondylosis with radiculopathy, [employer] Other XR lumbar spine AP/LAT/FLX/EXT lumbar region [employer] Other XR lumbar spine AP/LAT/FLX/EXT Copies to: Charles Solares MD [employer] Other XR lumbar spine AP/LAT/FLX/EXT Lumbar spine 01/08/2021. [employer] Other XR lumbar spine AP/LAT/FLX/EXT CLINICAL DATA: Low back pain. [employer] Other XR lumbar spine AP/LAT/FLX/EXT FINDINGS: 4 standing views of the lumbar spine were obtained including lateral views in the [employer] Other XR lumbar spine AP/LAT/FLX/EXT neutral, flexion, and extension positions. This examination is compared with a prior study 04/14/2019. [employer] Other XR lumbar spine AP/LAT/FLX/EXT There are stable postsurgical changes related to lumbosacral spinal fusion. There is also stable [employer] Other XR lumbar spine AP/LAT/FLX/EXT anterior malalignment of L5 on S1. Mild posterior malalignment of L2 on L3 is noted. Overall [employer] Other XR lumbar spine AP/LAT/FLX/EXT vertebral alignment does not significantly change with limited flexion or limited extension. Disc [employer] Other XR lumbar spine AP/LAT/FLX/EXT space narrowing is identified. Minimal degenerative changes are seen. [employer] Other XR lumbar spine AP/LAT/FLX/EXT XR/XR lumbar spine AP/LAT/FLX/EXT [employer] Other XR lumbar spine AP/LAT/FLX/EXT IMPRESSION: Stable postsurgical changes and mild vertebral malalignment at the lumbosacral junction. [employer] Other XR lumbar spine AP/LAT/FLX/EXT Mild posterior malalignment of L2 on L3. No instability with limited flexion or extension. Disc [employer] Other XR lumbar spine AP/LAT/FLX/EXT space narrowing and minimal degenerative changes. [employer] Other XR lumbar spine AP/LAT/FLX/EXT Impression dictated by: Jude Stock Jr., M.D.01/08/2021 2:59 PM [employer] Other XR lumbar spine AP/LAT/FLX/EXT Dictation Location: [place] [address] [employer] Other XR lumbar spine AP/LAT/FLX/EXT Transcribed By: JIL 01/08/21 [facility] [employer] Other XR lumbar spine AP/LAT/FLX/EXT Dictated By: Jude Stock Jr, MD 01/08/21 [facility] [employer] Other XR lumbar spine AP/LAT/FLX/EXT Signed By: [employer] Other XR lumbar spine AP/LAT/FLX/EXT 01/08/21 [facility] [employer] Other Erasto 06-09-2018 CNOV Office Visit (NSFRVW ) NEAL IRENE ([id number]) 1980 M Date Time Provider Department 06/09/18 [...] L5 fx. Had surgery by Dr. Robbie Wakefield [facility] in [place]. He felt that he was better in [...] into bone Plan : Per Dr. 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 Author Type: [...] Had surgery by Dr. Robbie Wakefield, [facility] in [place]. 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 Hx of back problems and surgeries. Took two [place], flexeril, celebrex prior to coming. Needs another surgery for back. History of Present Illness 37-year-old white male presents emergency room with his and complaints of worsening lower back pain after bending over to light his heater in his shop. Patient has had prior back surgery by Dr. Sen in [place] March 14, 2015. Patient states he has [...] Anxious mood & affect. Integumentary: Warm, Dry, [place] Medical Decision Making X-rays did not demonstrate [...] WASSIL In 3 days 04/04/2018 [address] [place] [address]- Business (1) Additional Instructions: Call tomorrow for [...] made to ensure accuracy, however, inadvertently computerized air intercept controller mistakes may be present. Patient was treated and evaluated by the physician ophthalmic surgical assistant. The attending physician was in the [...] acute fracture. Signed By: Andreas Cordova MD [facility] Comment on above: Result Comment: Elec tronically Signed By: Abdelrahman Olvera PA-C\.br\Date and Time Signed: 04/01/18 12:55 EST\.br\Electronically Co-Signed By: Lashay Li DO\.br\Date and Time Co-Signed: 04/07/18 16:20 EST Coding Summary.on 04-02-2018 Coding Summary. 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 However, the narrative phrase printed from the coding software may appear abbreviated, or result in slightly different terminology. Coded By: Laila Mcghee Date Saved: 04/02/2018 11:01 am Normal [facility] ED Clinical Summaryon 2017 ED Clinical Summary [place] [id number] ED Clinical Summary Person Information Name: NEAL IRENE/[facility] Age: 37 Years : 1980 12:00 AM Sex: Male Language: Setswana PCP: RENE MORRELL DO Marital Status: Visit [...] 04/01/2018 1:01 PM 04/01/2018 1:01 PM ADDRESS: [address] [place] [id number] PHYS DOC NOTES: MEDICAL INFORMATION: Prescriptions Given: [...] Follow up: With: Address: When: RENE MORRELL [address] [place] [address] [facility] () In 3 days 04/04/2018 Comments: Call [...] the lower extremities DIAGNOSIS: Lumbosacral pain Normal [facility] ED Patient Education Noteon 04-01-2018 ED [...] stressful on the back to sit or pointer helper one place. Do not sit, drive, or pointer helper one place for more than 30 minutes [...] pillow under your knees. ? Only take jucc-pya-syjwrcn or prescription medicines as directed by your caregiver. Xbyh-hjv-ckljqtb medicines to reduce pain and inflammation are [...] Document Reviewed: 07/26/2014 ExitCare? Patient Information ?2015 [employer]. This information is not intended to replace [...] the first months of treatment. Only take npku-kab-iaospua or prescription medicines for pain, discomfort, or [...] Document Reviewed: 07/17/2009 ExitCare? Patient Information ?2014 [employer]. This information is not intended to replace advice given to you by your health care provider. Make sure you discuss any questions you have with your health care provider. Normal [facility] ED Patient Summaryon 018 ED Patient Summary [address] [address] Patient Discharge Instructions Person Information Name: NEAL IRENE Age: 37 Years Arrival Date: 04/01/2018 11:05 AM Discharge Diagnosis: Lumbosacral pain Primary Care Physician: RENE MORRELL DO Provider Information Primary Provider: Lashay Li DO Advanced Director Of Partnerships:Abdelrahman Olvera PA-C The exam and treatment you received in the Emergency Department were for an urgent problem and are not intended as complete care. It is important that you follow up with a doctor, nurse practitioner, or physician?s ophthalmic surgical assistant for ongoing care. If your symptoms become worse or you do not improve as expected and you are unable to reach your usual health care provider, you should return to the Emergency Department. We are available 24 hours a day. NEAL IRENE has been given the following list of patient education materials, prescriptions and follow-up instructions: Follow-up Instructions: With: Address: When: RENE WASSIL [address] [place] [address] [facility] (1) In 3 days 04/04/2018 Comments: Call [...] opioids can be used to help relieve wqpvojgj-cd-gknjqf pain and are often prescribed following a [...] be struggling with addiction, tell your health field care manager and ask for guidance or call SAMHSA?S National Helpline at 2-141-833-BIDZ. d Source: [place] Department of Health and Human Services/Center for Disease Control & Prevention [facility] Medications Given: Medication Dose Route [...] Comment: Pharmacy Information: Thank you for choosing [facility] Patient Education Materials: Radicular Pain Radicular pain [...] the first months of treatment. Only take yfxw-mle-jbdtkge or prescription medicines for pain, discomfort, or [...] Document Reviewed: 07/17/2009 ExitCare? Patient Information ?2014 [employer], [facility]. This information is not intended to replace [...] stressful on the back to sit or pointer helper one place. Do not sit, drive, or pointer helper one place for more than 30 minutes [...] pillow under your knees. ? Only take rnzr-sxm-ztchizq or prescription medicines as directed by your caregiver. Nhbc-lpo-fxsutbk medicines to reduce pain and inflammation are [...] Document Reviewed: 07/26/2014 ExitCare? Patient Information ?2015 [employer]. This information is not intended to replace advice given to you by your health care provider. Make sure you discuss any questions you have with your health care provider. ELENA Bolden RUSSELL , have received the following patient education materials/instruction s and have verbalized understanding: Patient Education Materials: Radicular Pain; Back Pain, Adult Follow-up Instructions: With: Address: When: RENE MORRELL [address] [place] [address] Business (1) In 3 days 04/04/2018 Comments: [...] Signature Date Clinician/Nurse Signature Date 04/01/18 13:01:03 [facility] Progress Note-Nurseon 2017 Protein mass [...] . No further needs at this time. [facility] XR Spine Lumbosacral Minimum 4 Viewson [...] MD Transcribed by: DARSHAN Technologist: DEAN Smalls [facility] Vital Signs Date Time Vital Sign Value Performing Clinician Facility 07-21-2023 07:59-0400 Body height 177.8 cm DO Maribeth Vuong Work Phone: [facility] 07-21-2023 07:59-0400 Body mass index (BMI) [Ratio] 40.1 kg/m2 DO Maribeth Vuong [employer] Phone: [facility] 07-21-2023 07:59-0400 Body weight 127 kg DO Maribeth Vuong Work Phone: [facility] 07-21-2023 07:59-0400 Diastolic blood pressure 86 mm[Hg] DO Maribeth Vuong Work Phone: [facility] 07-21-2023 07:59-0400 Heart rate 76 /min DO Maribeth Vuong Work Phone: [facility] 07-21-2023 07:59-0400 SaO2% (BldA) [Mass fraction] 98 % DO Maribeth Vuong [employer] Phone: [facility] 07-21-2023 07:59-0400 Systolic blood pressure 128 mm[Hg] DO Maribeth Vuong Work Phone: [facility] 01-17-2023 09:00-0400 Body height 177.8 cm Maribeth Carolann Other [employer] Other 01-17-2023 09:00-0400 Body mass index (BMI) [Ratio] 39.17 kg/m2 Maribeth Vuong Other [employer] Other 01-17-2023 09:00-0400 Body temperature 97.7 [degF] Maribeth Vuong Other [employer] Other 01-17-2023 09:00-0400 Body weight 123.83 kg Maribeth Vuong Other [employer] Other 01-17-2023 09:00-0400 Diastolic blood pressure 78 mm[Hg] Maribeth Vuong Other [employer] Other 01-17-2023 09:00-0400 SaO2% (BldA) [Mass fraction] 98 % Maribeth Vuong Other [employer] Other 01-17-2023 09:00-0400 Systolic blood pressure 112 mm[Hg] Maribeth Vuong Other [employer] Other 12-18-2022 09:45-0400 Body height 177.8 cm Maribeth Vuong Other [employer] Other 12-18-2022 09:45-0400 Body mass index (BMI) [Ratio] 37.73 kg/m2 Maribeth Vuong Other [employer] Other 12-18-2022 09:45-0400 Body weight 119.3 kg Maribeth Vuong Other [employer] Other 12-18-2022 09:45-0400 Diastolic blood pressure 86 mm[Hg] Maribeth Vuong Other [employer] Other 12-18-2022 09:45-0400 Respiratory rate 18 /min Maribeth Vuong Other [employer] Other 12-18-2022 09:45-0400 SaO2% (BldA) [Mass fraction] 95 % Maribeth Vuong Other [employer] Other 12-18-2022 09:45-0400 Systolic blood pressure 126 mm[Hg] Maribeth Vuong Other [employer] Other 12-12-2022 08:00-0400 Body height 177.8 cm Maribeth Vuong Other [employer] Other 12-12-2022 08:00-0400 Body mass index (BMI) [Ratio] 37.73 kg/m2 Maribeth Vuong Other [employer] Other 12-12-2022 08:00-0400 Body temperature 98.5 [degF] Maribeth Vuong Other [employer] Other 12-12-2022 08:00-0400 Body weight 119.3 kg Maribeth Vuong Other [employer] Other 12-12-2022 08:00-0400 Diastolic blood pressure 102 mm[Hg] Maribeth Vuong Other [employer] Other 12-12-2022 08:00-0400 SaO2% (BldA) [Mass fraction] 96 % Maribeth Vuong Other [employer] Other 12-12-2022 08:00-0400 Systolic blood pressure 150 mm[Hg] Maribeth Vuong Other [employer] [facility] Other 09-26-2022 10:22-0400 Diastolic blood pressure 108 mm[Hg] DO Maribeth Vuong Work Phone: [facility] 09-26-2022 10:22-0400 Heart rate 74 /min DO Maribeth Vuong Work Phone: [facility] 09-26-2022 10:22-0400 Respiratory rate 16 /min DO Maribeth Vuong Work Phone: [facility] 09-26-2022 10:22-0400 SaO2% (BldA) [Mass fraction] 98 % DO Maribeth Vuong Work Phone: [facility] 09-26-2022 10:22-0400 Systolic blood pressure 156 mm[Hg] DO Maribeth Vuong Work Phone: [facility] 09-26-2022 08:26-0400 Body height 175.26 cm DO Maribeth Vuong Work Phone: [facility] 09-26-2022 08:26-0400 Body temperature 98.5 [degF] DO Maribeth Vuong Work Phone: [facility] 09-26-2022 08:26-0400 Body weight 113.39 kg DO Maribeth Woodymer Work Phone: [facility] 09-11-2022 09:45-0400 Body height 177.8 cm Maribeth Vuong Other [employer] [facility] Other 09-11-2022 09:45-0400 Body mass index (BMI) [Ratio] 35.37 kg/m2 Maribeth Carolann Other [employer] Other 09-11-2022 09:45-0400 Body weight 111.81 kg Maribeth Carolann Other [employer] Other 09-11-2022 09:45-0400 Diastolic blood pressure 88 mm[Hg] Maribeth Carolann Other [employer] Other 09-11-2022 09:45-0400 Respiratory rate 18 /min Maribeth Carolann Other [employer] Other 09-11-2022 09:45-0400 SaO2% (BldA) [Mass fraction] 98 % Maribeth Carolann Other [employer] Other 09-11-2022 09:45-0400 Systolic blood pressure 142 mm[Hg] Maribeth Vuong Other [employer] Other 07-24-2022 10:30-0400 Body height 177.8 cm Igor Orr Other [employer] Other 07-24-2022 10:30-0400 Body mass index (BMI) [Ratio] 35.58 kg/m2 Igor Orr Other [employer] Other 07-24-2022 10:30-0400 Body weight 112.49 kg Igor Orr Other [employer] Other 07-24-2022 10:30-0400 Diastolic blood pressure 132 mm[Hg] Igor Orr Other [employer] Other 07-24-2022 10:30-0400 Systolic blood pressure 187 mm[Hg] Igor Orr Other [employer] Other 07-15-2022 12:15-0400 Body height 177.8 cm Maribeth Vuong Other [employer] Other 07-15-2022 12:15-0400 Body mass index (BMI) [Ratio] 35.58 kg/m2 Maribeth Vuong Other [employer] Other 07-15-2022 12:15-0400 Body temperature 98.1 [degF] Maribeth Vuong Other [employer] Other 07-15-2022 12:15-0400 Body weight 112.49 kg Maribeth Vuong Other [employer] Other 07-15-2022 12:15-0400 Diastolic blood pressure 110 mm[Hg] Maribeth Vuong Other [employer] Other 07-15-2022 12:15-0400 SaO2% (BldA) [Mass fraction] 97 % Maribeth Vuong Other [employer] Other 07-15-2022 12:15-0400 Systolic blood pressure 156 mm[Hg] Maribeth Vuong Other [employer] Other 01-04-2022 12:15-0400 Body height 177.8 cm Maribeth Vuong Other [employer] Other 01-04-2022 12:15-0400 Body mass index (BMI) [Ratio] 34.39 kg/m2 Maribeth Vuong Other [employer] Other 01-04-2022 12:15-0400 Body weight 108.73 kg Maribeth Carolann Other [employer] Other 01-04-2022 12:15-0400 Diastolic blood pressure 86 mm[Hg] Maribeth Carolann Other [employer] Other 01-04-2022 12:15-0400 Respiratory rate 18 /min Maribeth Carolann Other [employer] Other 01-04-2022 12:15-0400 SaO2% (BldA) [Mass fraction] 98 % Maribeth Carolann Other [employer] Other 01-04-2022 12:15-0400 Systolic blood pressure 136 mm[Hg] Maribeth Carolann Other [employer] Other 06-22-2021 10:00-0400 Body height 177.8 cm Maribeth Carolann Other [employer] Other 06-22-2021 10:00-0400 Body mass index (BMI) [Ratio] 34.16 kg/m2 Maribeth Carolann Other [employer] Other 06-22-2021 10:00-0400 Body weight 108 kg Maribeth Carolann Other [employer] Other 06-22-2021 10:00-0400 Diastolic blood pressure 78 mm[Hg] Maribeth Vuong Other [employer] Other 06-22-2021 10:00-0400 Respiratory rate 18 /min Maribeth Vuong Other [employer] Other 06-22-2021 10:00-0400 SaO2% (BldA) [Mass fraction] 95 % Maribeth Vuong Other [employer] Other 06-22-2021 10:00-0400 Systolic blood pressure 118 mm[Hg] Maribeth Vuong Other [employer] Other 03-08-2021 12:15-0500 Body height 177.8 cm Charles Solares Other [employer] Other 03-08-2021 12:15-0500 Body mass index (BMI) [Ratio] 33.72 kg/m2 Charles Solares Other [employer] Other 03-08-2021 12:15-0500 Body weight 106.6 kg Charles Solares Other [employer] Other 02-12-2021 11:00-0500 Body height 177.8 cm Maribeth Vuong Other [employer] Other 02-12-2021 11:00-0500 Body mass index (BMI) [Ratio] 33.37 kg/m2 Maribeth Vuong Other [employer] Other 02-12-2021 11:00-0500 Body temperature 98.3 [degF] Maribeth Vuong Other [employer] Other 02-12-2021 11:00-0500 Body weight 105.51 kg Maribeth Vuong Other [employer] Other 02-12-2021 11:00-0500 Diastolic blood pressure 88 mm[Hg] Maribeth Vuong Other [employer] Other 02-12-2021 11:00-0500 Respiratory rate 18 /min Maribeth Carolann Other [employer] Other 02-12-2021 11:00-0500 SaO2% (BldA) [Mass fraction] 99 % Maribeth Carolann Other [employer] Other 02-12-2021 11:00-0500 Systolic blood pressure 134 mm[Hg] Maribethwaldo Vuong Other [employer] Other 02-01-2021 11:45-0400 Body height 177.8 cm Maribeth Carolann Other [employer] Other 02-01-2021 11:45-0400 Body mass index (BMI) [Ratio] 35.48 kg/m2 Maribeth Carolann Other [employer] Other 02-01-2021 11:45-0400 Body temperature 98.2 [degF] Maribeth Carolann Other [employer] Other 02-01-2021 11:45-0400 Body weight 112.18 kg Maribeth Vuong Other [employer] Other 02-01-2021 11:45-0400 Diastolic blood pressure 86 mm[Hg] Maribeth Vuong Other [employer] Other 02-01-2021 11:45-0400 Respiratory rate 18 /min Maribeth Vuong Other [employer] Other 02-01-2021 11:45-0400 SaO2% (BldA) [Mass fraction] 97 % Maribeth Vuong Other [employer] Other 02-01-2021 11:45-0400 Systolic blood pressure 136 mm[Hg] Maribeth Vuong Other [employer] Other Encounters Encounter Date Encounter Type Care Provider Facility Start: 07-21-2023 End: 07-21-2023 ambulatory DO Maribeth Vuong Work Phone: [facility] Work Phone: Start: 07-21-2023 End: 07-21-2023 Patient encounter procedure DO Maribeth Vuong Work Phone: [facility] Physician [facility] [place] Work Phone: Start: 06-03-2023 End: 06-03-2023 Patient encounter procedure DO Maribeth Vuong Work Phone: [facility] Physician [facility] Work Phone: Start: 05-29-2023 Non-patient / Non-visit DO Maribeth Vuong Work Phone: [facility] Phys[facility] [employer] Work Phone: Start: 03-13-2023 End: 03-13-2023 ambulatory Maribeth Vuong Other [employer] Other Start: 03-13-2023 Telephone encounter Maribeth Mercer [facility] [place] [facility] Start: 02-05-2023 End: 02-05-2023 ambulatory Maribeth Vuong Other [employer] Other Start: 02-05-2023 Telephone encounter Maribeth Mercer [facility] [place] Start: 01-17-2023 End: 01-17-2023 ambulatory Maribethwaldo Vuong Other [employer] Other Start: 01-17-2023 Encounter for genera l adult medical examination without abnormal findings Maribeth Vuong [facility] [place] Start: 01-17-2023 Periodic preventive med est patient 40-64yrs Maribeth Vuong [facility] [place] Start: 12-18-2022 (Procedure) Short Maribeth Vuong [facility] [place] Start: 12-18-2022 End: 12-18-2022 ambulatory Maribeth Vuong Other [employer] Other Start: 12-12-2022 End: 12-12-2022 ambulatory Maribeth Vuong Other [employer] Other Start: 12-12-2022 Office outpatient visit 15 minutes Maribeth Vuong [facility] [place] Start: 12-05-2022 End: 12-05-2022 ambulatory Maribeth Vuong Other [employer] Other Start: 12-05-2022 Telephone encounter Maribeth Mercer [facility] [place] Start: 09-28-2022 End: 09-28-2022 ambulatory Nash Cardenas Other [employer] Other Start: 09-28-2022 Telephone encounter Nash COCHRAN [facility] Start: 09-26-2022 End: 09-26-2022 ambulatory Nash Cardenas Facility:[facility] Start: 09-26-2022 End: 09-26-2022 Admission to same day surgery center DO Maribeth Carolann Work Phone: [facility] Work Phone: Start: 09-26-2022 End: 09-26-2022 ambulatory DO Maribeth N Carolann Work Phone: [facility] Work Phone: Start: 09-11-2022 (Procedure) Oralia Vuong [facility] [place] Start: 09-11-2022 End: 09-11-2022 ambulatory Maribeth Vuong Other [employer] Other Start: 09-10-2022 End: 09-10-2022 ambulatory Maribeth Vuong Other [employer] Other Start: 09-10-2022 Telephone encounter Maribeth Mercer [facility] Start: 09-03-2022 End: 09-03-2022 ambulatory NARENDRANATH LAKSHMIPATHY . Facility:[facility] Start: 08-20-2022 End: 08-20-2022 ambulatory Maribeth Vuong Facility:[facility] Start: 08-20-2022 End: 08-20-2022 ambulatory DO Maribeth Vuong Work Phone: [facility] Work Phone: Start: 08-20-2022 End: 08-20-2022 Patient encounter procedure DO Maribeth Vuong Work Phone: [facility] [address] Start: 08-16-2022 End: 08-17-2022 ambulatory NARENDRANATH LAKSHMIPATHY . Facility:[facility] Start: 08-02-2022 End: 08-02-2022 ambulatory Maribeth Vuong Other [employer] Other Start: 08-02-2022 Telephone encounter Maribeth Mercer [facility] Start: 07-30-2022 End: 07-30-2022 ambulatory NARENDRANATH LAKSHMIPATHY . Facility:[facility] Start: 07-24-2022 End: 07-24-2022 ambulatory Igor Orr Other [employer] Other Start: 07-24-2022 Office outpatient ne w 30 minutes Igor Orr [facility] Start: 07-23-2022 End: 07-24-2022 ambulatory NARENDRANATH LAKSHMIPATHY . Facility:[facility] Start: 07-16-2022 End: 07-16-2022 ambulatory Maribeth Vuong Other [facility] Other Start: 07-16-2022 Telephone encounter Maribeth Mercer [facility] Start: 07-15-2022 Office outpatient visit 25 minutes Maribeth Vuong [facility] Start: 07-15-2022 Telephone encounter Maribeth Mercer [facility] [place] Start: 07-15-2022 End: 07-15-2022 ambulatory DO Maribeth Vuong Work Phone: [facility] Other Start: 07-15-2022 End: 07-15-2022 Patient encounter procedure DO Maribeth Vuong Work Phone: [facility] Ctr-X-Ray [facility] Start: 07-12-2022 End: 07-12-2022 ambulatory Maribteh Vuong Facility:[facility] Start: 07-12-2022 Encounter for genera l adult medical examination without abnormal findings Maribeth Vuong [facility] Start: 07-12-2022 End: 07-12-2022 ambulatory DO Maribeth Vuong Work Phone: [facility] Work Phone: Start: 07-12-2022 End: 07-12-2022 Patient encounter procedure DO Maribeth Vuong Work Phone: [facility] Main [place] Work Phone: Start: 07-02-2022 End: 07-03-2022 ambulatory [...] Facility:H1 Start: 01-04-2022 End: 01-04-2022 ambulatory Maribeth Vuong Other [employer] Other Start: 01-04-2022 Encounter for genera l adult medical examination without abnormal findings Maribeth Vuong [facility] [place] Start: 01-04-2022 Periodic preventive med est patient 40-64yrs Maribeth Vuong [facility] Medicine [place] Start: 12-13-2021 End: 12-14-[address] JESSICA JOEL . Facility: Start: 10-31-2021 End: 11-01-[address] JESSICA JOEL . Facility:[facility]1 Start: 10-03-2021 End: 10-04-2021 ambulatory BRIT SCHUSTER . Facility:[facility] Start: 09-29-2021 End: 09-29-2021 ambulatory MARIBETH VUONG Facility:[facility] Start: 08-17-2021 End: 08-17-2021 ambulatory Charles Solares Other [employer] Other Start: 08-17-2021 Telephone encounter Charles COCHRAN [facility] [place] Start: 08-07-2021 End: 08-07-2021 ambulatory Charles Solares Other [employer] Other Start: 08-07-2021 Telephone encounter Charles COCHRAN G [facility] Start: 07-13-2021 End: 07-13-2021 ambulatory Maribeth Vuong Other [employer] Other Start: 07-13-2021 Telephone encounter Maribeth Vuong [facility] Medicine [place] Start: 07-09-2021 End: 07-09-2021 ambulatory Charles Solares Other [employer] Other Start: 07-09-2021 Office outpatient visit 25 minutes Charles Felter [facility] [place] Start: 06-22-2021 End: 06-22-2021 ambulatory Maribeth Vuong Other [employer] Other Start: 06-22-2021 Office outpatient visit 15 minutes Maribeth Vuong [facility] [place] Start: 06-06-2021 End: 06-06-2021 ambulatory Charles Hernandezer Other [employer] Other Start: 06-06-2021 Office outpatient visit 25 minutes Charles Felter [facility] [place] Start: 05-29-2021 End: 05-29-2021 ambulatory Maribeth Vuong Other [employer] Other Start: 05-29-2021 Telephone encounter Maribeth Mercer [facility] [place] Start: 05-22-2021 End: 05-22-2021 ambulatory Maribeth Vuong Other [employer] Other Start: 05-22-2021 Telephone encounter Maribeth Mercer [facility] [place] Start: 05-21-2021 End: 05-21-2021 ambulatory Maribeth Vuong Other [employer] Other Start: 05-21-2021 Telephone encounter Maribeth Mercer [facility] [place] Start: 05-08-2021 End: 05-08-2021 ambulatory Charles Hernandezer Other [employer] Other Start: 05-08-2021 Office outpatient visit 25 minutes Charles Felter [facility] [place] Start: 04-12-2021 End: 04-12-2021 ambulatory Charles Felter Other [employer] Other Start: 04-12-2021 Office outpatient visit 25 minutes Charles Felter [facility] [place] Start: 03-08-2021 End: 03-08-2021 ambulatory Charles Solares Other [employer] Other Start: 03-08-2021 Office outpatient visit 25 minutes Charles Solares [facility] [place] Start: 02-28-2021 End: 02-28-2021 ambulatory Maribeth Vuong Other [employer] Other Start: 02-28-2021 Telephone encounter Maribeth Woodymer Sylvie [facility] [place] Start: 02-12-2021 End: 02-12-2021 ambulatory Maribeth Vuong Other [employer] Other Start: 02-12-2021 Office outpatient visit 15 minutes Maribeth Woodymer [facility] [place] Start: 02-05-2021 Office outpatient visit 25 minutes Charles Solares [facility] [place] Start: 02-01-2021 Office outpatient visit 15 minutes Maribeth Vuong [facility] [place] Start: 01-08-2021 Office outpatient visit 25 minutes Charles Hernandezer [facility] [place] Start: 06-09-2018 End: 06-10-2018 Patient encounter procedure AMYTIFFANIE IDA RENE [facility] Start: 04-01-2018 End: 04-01-2018 Emergency department patient visit Lashay Li [place] Procedures Date Procedure Procedure Detail Performing Clinician Start: 06-03-2023 Plain X-ray of left hand DO Maribeth Vuong Work Phone: Start: 09-26-2022 Colonoscopy DO Maribeth Vuong Work Phone: Start: 07-15-2022 Diagnostic radiograp hy of abdomen DO Maribeth Vuong Work Phone: Plan of Treatment Date Care Activity Detail Author Start: 09-26-2022 [facility] Patient Education Hemorrhoids (DC) [facility] Work Phone: Immunizations Immunization Date Immunization Notes Care Provider Macrina brunson 12-07-2020 COVID-19 Vaccine Corey - Documentation Purposes Only Charles Solares Other [facility] 03-25-2019 Depo-Medrol 80 mg Charles lewis Other [employer] Other 12-11-2017 Kenalog -40 mg Charles Solares Other [employer] Other Payers Date Payer Category Payer Self-pay [id number] 1980 Unknown [id number] 2.16.84 0.1.225960.3.579.2.727 1980 Unknown [id number] 2.16.84 0.1.028010.3.579.2.593 1979 Unknown [id number] 2.16.84 0.1.907935.3.579.2.593 1979 Unknown [id number] 2.16.84 0.1.941472.3.579.2.593 1979 Unknown [id number] 2.16.84 0.1.522203.3.579.2.593 1979 Unknown [id number] 2.16.84 0.1.786319.3.579.2.593 1979 Unknown [id number] 2.16.84 0.1.341588.3.579.2.593 1979 Unknown [id number] 2.16.84 0.1.612833.3.579.2.593 1979 Unknown [id number] 2.16.84 0.1.836774.3.579.2.593 1979 Unknown [id number] 2.16.84 0.1.538942.3.579.2.593 1979 Unknown [id number] 2.16.84 0.1.102368.3.579.2.593 1979 Unknown [id number] 2.16.84 0.1.825201.3.579.2.593 1979 Unknown [id number] 2.16.84 0.1.030400.3.579.2.593 1979 Unknown [id number] 2.16.84 0.1.472560.3.579.2.593 1979 Unknown [id number] 2.16.84 0.1.565489.3.579.2.593 1979 Unknown [id number] 2.16.84 0.1.762628.3.579.2.593 1979 Unknown [id number] 2.16.84 0.1.759446.3.579.2.593 1960 Medicaid [id number] 1960 Unknown [id number] 1960 Unknown [id number] Blue Cross Blue [facility] [id number] 2.16.840.1.198102.19 Unknown [facility] [id number] Unknown [id number] 2.16.8 40.1.885732.3.579.2.531 Unknown [id number] 2.16.8 40.1.965686.3.579.2.531 Unknown [id number] 2.16.8 40.1.661032.3.579.2.531 Unknown [id number] 2.16.8 40.1.805714.3.579.2.531 Social History Date Type Detail Facility Unknown if ever smoked [employer] Other Sex Assigned At Sex Assigned At Bir th [employer] Other Start: 04-13-2019 Tobacco smoking status SDIS Smoker (finding) [facility] Start: 1980 Sex Assigned At Male F [facility] Start: 09-26-2022 Tobacco smoking status NHIS Current some day smoker [facility] Goals Date Patient Goal Desired Activity /State Clinical Notes 01-08-2021 to 03-13-2023 Note Date & Type Note Facility 03-13-2023 Evaluation note Encounter Date Diagnosis Assessment Notes Mar, Primary osteoarthritis of both first carpometacarpal joints (ICD-10 - M18.0) [employer] Other 11-01-2023 Evaluation note* Encounter Date Diagnosis Assessment Notes Treatment Notes Treatment Clinical Notes Feb, Primary hypertension (ICD-10 - I10) [employer] Other 10-13-2023 Evaluation note* Encounter Date Diagnosis [...] Jan, Medication monitoring encounter (ICD-10 - Z51.81) [employer] Other 09-13-2023 Evaluation note* Encounter Date Diagnosis Assessment Notes Treatment Notes Treatment Clinical Notes Dec, Primary osteoarthrit is of first carpometacarpal joint of left hand (ICD-10 - M18.12) [employer] Other 09-07-2023 Evaluation note* Encounter Date Diagnosis [...] he has any issues with the medicine. [employer] Other 06-22-2023 Procedure [facility]06-07-2023 Evaluation note* Encounter Date Diagnosis Assessment Notes Treatment Notes Treatment Clinical Notes Sep, Primary osteoarthrit is of both first carpometacarpal joints (ICD-10 - M18.0) [employer] Other 04-19-2023 Evaluation note* Encounter Date Diagnosis [...] colonoscopy to rule out luminal etiologies made [employer] Other 04-18-2023 NoteCONSULTATION CONSULTATION DATE: 07/23/2022 TO: [...] our patients to inform us about any xjhe-wtl-hnfvist medications or herbal remedies/nutritional supplements/alternative remedies. 2. [...] treatment options with their primary care provider.[facility] [id number] Evaluation note * Encounter Date Diagnosis Assessment Notes Treatment Notes Treatment Clinical Notes Jul, Generalized abdominal pain (ICD-10 - R10.84) [employer] Other 04-10-2023 Evaluation note* Encounter Date Diagnosis [...] Jul, Medication monitoring encounter (ICD-10 - Z51.81) [employer] Other 04-10-2023 Evaluation note* Encounter Date Diagnosis Assessment Notes Treatment Notes Treatment Clinical Notes Jul, Slow transit constipation (ICD-10 - K59.01) [employer] Other 03-28-2023 NoteCONSULTATION CONSULTATION DATE: 07/02/2022 TO: [...] as well as his lumbar spine films.[facility] HospitalVoczjafn20-06-1769 Note CONSULTATION CONSULTATION DATE: 06/13/2022 HISTORY OF [...] relief. He has been seen both at [place] and [facility] in the past, and received [...] under the care of Dr. Joshua in [place]. He is unwilling to try Lyrica due [...] Patient is in agreement to this plan.[facility] HospitalKwghleah40-23-3305 NoteCONSULTATION CONSULTATION DATE: 03/14/2022 HISTORY OF PRESENT [...] in three months' time, unless otherwise indicated.[facility] [id number] NoteCONSULTATION CONSULTATION DATE: 02/07/2022 HISTORY OF PRESENT [...] followed up in the office post procedure.[facility] [id number] Evaluation note* Encounter Date Diagnosis Assessment Notes [...] Dec, Prostate cancer screening (ICD-10 - Z12.5) [employer] Other 09-08-2022 NoteCONSULTATION CONSULTATION DATE: 12/13/2021 HISTORY [...] of care and all questions were answered.[facility] HospitalDozhlhhq11-72-4119 Note CONSULTATION PROCEDURE DATE: 10/31/2021 PREOPERATIVE DIAGNOSIS: [...] will be followed up in the office.[facility] HospitalXsbnbzmb91-02-1381 Note CONSULTATION CONSULTATION DATE: 10/03/2021 This is [...] and will be seen in the clinic. [facility] Signed and Approved by: BRIT SCHUSTER . 10/11/2021 16:28:00[facility]04-04-2022 Evaluation note* Encounter Date Diagnosis Assessment [...] in this. Patient notes prior issues with [facility] billing department and states he is uncomfortable [...] note writ ten by Km Cervantes MA, Regional Guide. Edited and approved by Dr. Charles Solares MD. [employer] Other 03-18-2022 Evaluation note* Encounter Date Diagnosis [...] and he is to continue with it. [employer] Other 03-02-2022 Evaluation note* Encounter Date Diagnosis [...] note writ ten by Km Cervantes CMA, Regional Guide. Edited and approved by Dr. Charles Solares MD. [employer] Other 02-15-2022 Evaluation note* Encounter Date Diagnosis Assessment Notes Treatment Notes Treatment Clinical Notes May, Cigarette nicotine dependence without complication (ICD-10 - F17.210) [employer] Other 02-14-2022 Evaluation note* Encounter Date Diagnosis Assessment Notes Treatment Notes Treatment Clinical Notes May, Other spondylosis with radiculopathy, lumbar region (ICD-10 - M47.26) [employer] Other 02-01-2022 Evaluation note* Encounter Date Diagnosis [...] was refilled today. Saliva sample performed through [facility] today, will await confirmatory results. Opiod contract updated at this time. May, Other chronic pain (ICD-10 - G89.29) May, Other Above note writ ten by Sonya Dawson LPN, Regional Guide. Edited and approved by Dr. Charles Solares MD. [employer] Other 01-06-2022 Evaluation note* Encounter Date Diagnosis [...] note writ ten by Km Cervantes CMA, Regional Guide. Edited and approved by Dr. Charles Solares MD. [place] [employer] Other 12-02-2021 Evaluation note* Encounter Date Diagnosis [...] Above note written by Sonya Dawson LPN, Regional Guide. Edited and approved by Dr. Charles Solares MD. [employer] Other 11-08-2021 Evaluation note* Encounter Date Diagnosis [...] Patient voiced understanding agrees with this plan. [employer] Other 11-01-2021 Evaluation note* Encounter Date Diagnosis [...] note writ ten by Donita Henson CMA, Regional Guide. Edited and approved by Dr. Charles Solares MD. [employer] Other 10-28-2021 Evaluation note* Encounter Date Diagnosis [...] message to Dr. Solares passing this along. [employer] Other 10-04-2021 Evaluation note* Encounter Date Diagnosis [...] educated regarding the risks and benefits of mcfp opioid use. He understands the associated risks with this medication and agrees that it provides reasonable benefit in regards to his pain control and level of function. Oxycodone Acetaminophen was refilled today. Jan, Other chronic pain (ICD-10 - G89.29) [facility] Other Evaluation noteNo InformationNortGeisinger Jersey [facility] Other Evaluation noteNo assessment information available [facility] Work Phone: Evaluation note* Diagnosis Onset Date Resolution Status Osteoarthritis of carpometac arpal joint of left thumb acute Primary osteoarthritis, left hand acute BPH (benign prostatic hyperplasia) chronic Hemorrhoid chronic Other spondylosis with radiculopathy, lumbar region chronic Blood present in stool nonea ctive [facility] Work Phone: History and physical note Author Nash Cardenas [facility] September 26, 2022 9:39am Note Date/Time September 26, 2022 9:39 am [facility] [address] [place] [address] Gastroenterology H&P Signed Patient: Neal Irene MR#: [id number] : 1980 Acct:[id number] Age/Sex: 41 / M Adm Date: 3 Loc: Room: Type: [facility] Attending Dr: Nash Cardenas MD Copies to: MD Maribeth Mcdermott, ~ Date of Service: 09/26/2022 HISTORY & PHYSICAL: [...] Cardenas MD Documented By: Nash Cardenas MD 09/26/2238 Signed By: <Electronically signed by Nash Cadrenas MD> 09/26/22 0939 [facility] Work Phone: Hiseznt general Narrative - Reported* Type Description Date Medical History Hx spinal fusion Medical History Lumbar radiculopathy Medical History Trigger point Surgical History L5 S1 fusion 2014 Surgical History Left lower leg surgery (multipl e fractures) Surgical History foreign body excision right mid dle finger Hospitalization History pneumonia as [facility] Other [facility] Narrative - Reported* Type Description Date Medical History Hx spinal fusion Medical History Lumbar radiculopathy Medical History Trigger point Surgical History L5 S1 fusion 2014 Surgical History Left lower leg surgery (multipl e fractures) Surgical History foreign body excision right mid dle finger Surgical History lumbar facet nerve b lock injection - Dr. Saldivar in [facility] 11/2022 Hospitalization History pneumonia as [facility] Other [facility] general Narrative - Reported* Type Description Date Medical History Hx spinal fusion Medical History Lumbar radiculopathy Medical History Trigger point Surgical History L5 S1 fusion 2014 Surgical History Left lower leg surgery (multipl e fractures) Surgical History foreign body excision right mid dle finger Surgical History lumbar facet nerve b lock injection - Dr. Saldivar in [facility] 11/2022 Surgical History R side nerve ablation 01/2023 Hospitalization History pneumonia as child [employer] Other Hospital Discharge instructions Additional Instructions DISCHARGE [...] years. -Follow up with PCP. -Office number [phone].[facility] Work Phone: Reason for visit NarrativePatient here at the request of Dr. Vuong for evaluation & treatment of abdominal pain, change in bowel habits, weight loss, rectal bleeding.[employer] Other Reason for visit NarrativeProcedure appt and DNR-A [facility] [employer] Other Summary Purpose Family History Relationship Condition Age at Onset Recorded Date/T lorri brother Gout Unknown Relationship Condition Age at Onset Recorded Date/T lorri brother Gout Unknown Diabetes mellitus Unknown Relationship Condition Age at Onset Recorded Date/T lorri brother Gout Unknown Diabetes mellitus Unknown brother Diabetes mellitus Unknown Gout Unknown Advance Directives Advance Directive Response Recorded Date/ Time Advance Directives No December 4:24pm Reason for Referral Reason [facility], steroid injections not providing long lasting benefit Diagnosis 1 Primary osteoarthrit is of both first carpometacarpal joints (M18.0) Referral Organization [facility] Family Medicin luisa Santos Referring Provider First Name Maribeth Referring Provider Last Name Carolann Referring Provider Specialty Family Prac patito Referred Organization [facility] Ortho pedics Referred Address [address] [place] [place], [place],[address] Referred Provider Specialty ORTHOPEDIC S URGEON Referral Priority Routine Reason * Waiting for appt CT and KUB normal, generalized pain of unclear etiology Diagnosis 1 Generalized abdomina l pain (R10.84) Referral Organization [facility] Family Medicin e [place] Referring Provider First Name Maribeth Referring Provider Last Name Carolann Referring Provider Specialty Family Prac patito Referred Organization [facility] Gastroenterolo gy Referred Provider Dwayne Salas Referred Address [address] [address], [place],[address] Referred Provider Specialty Gastroentero logy Referral Priority [...] continuous use of opioids (F11.90) Referral Organization [facility] Family Nisha Santos Referring Provider First Name Maribeth Referring Provider Last Name Carolann Referring Provider Specialty Family Prac patito Referred Organization [facility] Referred Address [address],[address] Referred Provider Specialty Pain Medicin e Referral Priority Routine General Notes Rebeca Vivar 11:08:53 AM >referral received and faxed Clinical Notes P- [phone] Chief Complaint and Reason for Visit Chief Complaint E78.9 Z51.81 Z12.5 Z 00.00 Chief Complaint E78.9 Z51.81 Z12.5 Z 00.00 R10.84 Z51.81 K59.01 Chief Complaint E78.9 Z51.81 Z12.5 Z 00.00 R10.84 Z51.81 K59.01 multiple dx's Chief Complaint E78.9 Z51.81 Z12.5 Z 00.00 R10.84 Z51.81 K59.01 multiple dx's Change in Bowel Habits, Rectal Bleeding, Weight Lo Chief Complaint Amb Documentation CONSULT DR VUONG LT THUMB PAIN M79.642 - Pain in left hand Incontinence, forms for medicaid Reason for Visit Osteoarthritis of ca rpometacarpal joint of left thumb Primary osteoarthritis, left hand BPH (benign prostatic hyperplasia) Hemorrhoid Other spondylosis with radiculopathy, lumbar region Blood present in stool Additional Source Comments (unrecognized sect ion and content) No Status Records FoundNo Status Records FoundNo Status Records FoundNo Status Records Found INFORMATION SOURCE (unrecogn ized section and content) DATE CREATED AUTHOR 05/25/2018 [facility] DATE CREATED AUTHOR AUTHOR'S ORGANIZ ATION 06/11/2018 [facility] DATE CREATED AUTHOR AUTHOR'S ORGANIZ ATION 09/15/[address] [facility] DATE CREATED AUTHOR AUTHOR'S ORGANIZ ATION 10/04/2022 [facility] REASON FOR VISIT (unrecogniz ed section and content) 1 MOback pain getting worse, pain management not working4 WK RECHECKDISCUSS DISABILITY OPTIONSLab results1 MO1 MONTH RECHECKCHANTIX1 month Follow upscript requestpaperwork1 MONTH FOLLOW UPCHANTIX refill/discuss back concerns1 MONTHNo InformationNo InformationPROCEDURE NOTES1 year Follow up/ AWVAbdominal Pain/ incontinencenew medication.ReferralPain ManagementB/L thumb steroid inj./ sign DNR-AORDERS PER DR Casanovaated bpelevated BP at PM in [place], no sxinjection L thumb1 year Follow upLosartan/HCTZsteroid injection Care Teams (unrecognized sec tion and content) Team Status: Active Member Role Status Dates Maribeth Vuong , DO Primary Care Provider Active Team Status: Active Member Role Status Dates Maribeth Vuong , DO Primary Care Provider Active Start: May 29, 2023 Patricia Thakur LPN Attending Provider Active Start: May 29, 2023 Team Status: Inactive Member Role Status Dates Maribeth Vuong DO Primary Care Provider Active Start: June 03, 2023 End: June 03, 2023 iNsha Villanueva MD Attending Provider Active Start: June 03, 2023 End: June 03, 2023 Team Status: Inactive Member Role Status Dates Maribeth Vuong , DO Primary Care Provi aisha, Attending Provider Active Start: July 21, 2023 End: July 21, 2023 Team Status: Active Member Role Status Dates Maribeth Vuong , DO Primary Care Provider Active Team Status: Inactive Member Role Status Dates Maribeth Vuong , DO Primary Care Provider, Attending Provider Active Team Status: Inactive Member Role Status Dates Maribeth Vuong , DO Primary Care Provider Active Nash Cardenas MD Attending Provider Active Team Status: Active Member Role Status Dates Maribeth Vuong DO Primary Care Provider Active Start: May 29, 2023 Patricia Thakur LPN Attending Provider Active Start: May 29, 2023 Team Status: Inactive Member Role Status Dates Maribeth Vuong DO Primary Care Provider Active Start: June 03, 2023 End: June 03, 2023 Nisha Villanueva MD Attending Provider Active Start: June 03, 2023 End: June 03, 2023 Team Status: Inactive Member Role Status Dates Maribeth Vuong DO Primary Care Provi aisha, Attending Provider Active Start: July 21, 2023 End: July 21, 2023 Goals (unrecognized section and content) Goals may [...] BE BASED ON THE PRIMARY CLINICAL RECORDS. [facility] [address] [facility]. provides no warranty or guarantee of the accuracy or completeness of information in this document.
== END 2023-07-25 09:22 | disposition home or self-care (01) ==
LOC: EC 09:21
PROVIDERS: Visit Provider Orthopaedic Surgery Orthopaedic Surgery of the Spine
DX: M54.50 Low back pain, unspecified (principal); M51.36 Other intervertebral disc degeneration, lumbar region
CPT/HCPCS: 72110

== ENCOUNTER 2023-08-11 08:42 | Outpatient (OUT) | payer OTHER, SELFPAY ==
--- NOTE | 2023-08-11 08:58 | CT_ITS ---
[address] [address] Patient Name: NEAL PARKER MRN: [facility]:[id number] date: 1980 Sex: M Assigned Patient Location: CT Current Patient Location: CT Accession/Order Number: [id number] Exam Date: 08/11/2023 08:50 Report Date: 08/11/2023 14:14 At the request of: ANTONIO RAPHAEL Procedure: CT lumbar spine wo con EXAMINATION: CT lumbar spine wo con HISTORY: Lumbar Back Pain M54.50 COMPARISON: 07/25/2023, 06/26/2022 TECHNIQUE: Axial, Coronal, and Sagittal CT images were created without I.V. contrast material. Dose reduction techniques were achieved by using automated exposure control and/or adjustment of mA and/or kV according to patient size and/or use of iterative reconstruction technique. FINDINGS: PARASPINAL AREA: Normal with no visible mass. BONES: Normal alignment with no acute fracture. 3 mm anterolisthesis of L5 relation to S1 with bilateral L5 pars interarticularis fracture. Posterior decompression and right transpedicular fusion DISC LEVELS: 12-L1: No significant disc/facet abnormality, spinal stenosis, or foraminal stenosis. L1-L2: No significant disc/facet abnormality, spinal stenosis, or foraminal stenosis. L2-L3: No significant disc/facet abnormality, spinal stenosis, or foraminal stenosis. L3-L4: No significant disc/facet abnormality, spinal stenosis, or foraminal stenosis. L4-L5: No significant disc/facet abnormality, spinal stenosis, or foraminal stenosis. L5-S1: 2 interbody spacers. Streak artifact limits exam without definite central or foraminal stenosis CT/CT lumbar spine wo con IMPRESSION: Posterior decompression and transpedicular fusion L5-S1 with interbody spacer No acute abnormality Electronically authenticated by: RENE LAUREN Date: 08/11/2023 14:14
== END 2023-08-11 08:43 | disposition home or self-care (01) ==
LOC: CT 08:42
PROVIDERS: Visit Provider Orthopaedic Surgery Orthopaedic Surgery of the Spine
DX: M54.50 Low back pain, unspecified (principal); Z98.890 Other specified postprocedural states
CPT/HCPCS: 72131

== ENCOUNTER 2023-08-26 08:58 | Day surgery (SDC) | payer OTHER, SELFPAY ==
[2023-08-26 09:24] VITALS: BP 138/85; PULSE 86; TEMP 36.7; O2SAT 95
[2023-08-26] MEDS: 0.9 % SODIUM CHLORIDE 500 ML IV (09:48)
[2023-08-26] MEDS: BUPIVACAINE HCL 0.25% PF 25 MG/10 ML VIAL 4 ML INJ (10:21)
[2023-08-26] MEDS: LIDOCAINE HCL 2% 400 MG/20 ML MDV 8 ML INJ (10:22)
[2023-08-26] MEDS: METHYLPREDNISOLONE ACETATE 40 MG/ML VIAL INJ (10:22)
[2023-08-26 10:24] VITALS: BP 91/67; PULSE 78; TEMP 37; O2SAT 92
[2023-08-26 10:30] VITALS: BP 118/65; PULSE 81; O2SAT 94
--- NOTE | 2023-08-26 11:06 | W.PM.PROCNOT ---
Date of procedure: 08/26/23 Pre-op diagnosis: Thoracic spondylosis Post-op diagnosis: same as pre-op Procedure: Right Thoraic 4/5, 5/6 Radiofrequency ablation Under fluoroscopic guidance Rhizotomy was created using radio frequency ablation at 80?C for 90 seconds 1 to 2 lesions created at each site. Post lesioning injection of 2 mL each of 0.25% Marcaine and 2% lidocaine. 0.5 to 1 mL injected at each site IV in place yes If Intravenous fluids: NS at KVO Anesthesia local 2% lidocaine for Anesthesia Other: MAC Timeout process compliant After informed consent obtained.Patient brought to the procedure room placed in the prone position skin overlying the area was prepped and draped in a sterile fashion using betadine. 25 gauge needle was used to create a skin wheal over each of the targeted areas utilizing 2% lidocaine. A rhizotomy needle with a 10 mm active tip was inserted over each of the anesthetized areas and directed towards each of the medial branches accomplished under fluoroscopic guidance. after encountering the same we had positive sensory stimulation, negative motor stimulation was noted. lesions were then created. Post lesioning, steroid solution was injected needles removed. Patient was transferred to recovery room in stable condition to be discharged home after meeting criteria. Anesthesia: MAC Surgeon: Mindy Manning Condition: stable
== END 2023-08-26 10:50 | disposition home or self-care (01) ==
PROVIDERS: Visit Provider Anesthesiology Pain Medicine
DX: M47.814 Spondylosis without myelopathy or radiculopathy, thoracic region (principal)
CPT/HCPCS: 64633; 64634; J1010; J2704

== ENCOUNTER 2023-09-09 07:06 | Day surgery (SDC) | payer OTHER, SELFPAY ==
--- OUTSIDE RECORDS SUMMARY | 2023-09-09 07:09 | XMS_ITS | CCD ---
Author Organization [facility] CliniSyri Care Team Providers Care Orthopedic Assistant Name Role Phone Lashay Li Admitting Unavailable Lashay Li Attending Unavailable RENE MORRELL Primary Care Unavailable PHI RENE Attending Unavaila Charles Cohen Unavailable Carolann, Maribeth Unavailable Carolann, Maribeth Unavailable Carolann, Maribeth Unavailable Carolann, DO Maribeth Williamson Primary Care Provider [phone] Carolann, DO Maribeth Williamson Attending Provider [phone] Igor Orr Unavailable CAROLANN, MARIBETH Primary Care Unavailable LEANDER LAFLEUR Consulting Unavailable LEANDER LAFLEUR Attending Unavailable LEANDER LAFLEUR Admitting Unavailable EVANGELIST LEOS Consulting Unavailable CAROLANN, MARIBETH Primary Care Unavailable HAY ., DR ARMENTA Consulting Unavailable HAY ., [...] ., NARENDRANATH Attending Jessy vailable LAKSHMIPATHY ., NARENDALBERTA Admitting Jessy vailable CAROLANN, MARIBETH Primary Care Unavailable BALWINDEREBKHUSHBOO, DR DAMARIS Deras Consulting Unavailable LAKSHMIPATHY ., NARENDRANATH Consulting Jessy vailable SCHUSTER ., BRIT Attending Unavailable SCHUSTER ., BRIT Admitting Unavailable CAROLANN, MARIBETH Primary Care Unavailable HALEDON, DR RENE Velasco Consulting Unavailable ZIEBER, DR DAMARIS Deras Consulting Unavailable SCHUSTER ., BRIT Consulting Unavailable LAKSHMIPATHY ., NARENDRANATH Consulting Jessy vailable LAKSHMIPATHY ., NARENDRANATH Attending Jessy vailable LAKSHMIPATHY ., NARENDRANATH Admitting Jesys vailable CAROLANN, MARIBETH Primary Care Unavailable LAKSHMIPATHY ., NARENDRANATH Attending Jessy vailable LAKSHMIPATHY ., NARENDRANATH Admitting Jessy vailable CAROLANN, MARIBETH Primary Care Unavailable HALKER ., ROSINA Consulting Unavailable LAKSHMIPATHY ., NARENDRANATH Consulting Jessy vailable LAKSHMIPATHY ., NARENDRANATH Attending Jessy vailable LAKSHMIPATHY ., NARENDRANATH Admitting Jessy vailable CAROLANN, [facility] Primary Care Unavailable LAKSHMIPATHY ., NARENDRANATH Consulting Jessy vailable LAKSHMIPATHY ., NARENDRANATH Attending Jessy vailable LAKSHMIPATHY ., NARENDRANATH Admitting Jessy vailable CAROLANN, [facility] Primary Care Unavailable LAKSHMIPATHY ., NARENDRANATH Consulting Jessy vailable LAKSHMIPATHY ., NARENDRANATH Attending Jessy vailable CAROLANN, [facility] Primary Care Unavailable LAKSHMIPATHY ., NARENDRANATH Admitting [...] N Primary Care Unavailable Carolann, DO Maribeth Teri Primary Care Provider MD Nisha Villanueva Attending Provider Maribeth Vuong DO Primary Care Diaz Armenta MD Attending Unavailabl e Maribeth Vuong DO Primary Care Diaz Armenta MD Attending Unavailabl e Allergies Allergy Classification Reported Allergen(s) Allergy Type Date of Onset Reaction(s) Facility (16 sources) gabapentin Drug Allergy 3 dizziness, sleepy, Drowsy, Drowsy, dizziness, sleepy [facility] (1 source) gabapentin Drug Allergy [facility] Repository (10 sources) zonisamide Drug Allergy 3 diarrhea [facility] (1 source) gabapentin Drug Allergy 3 [facility] Repository (1 source) zonisamide Drug Allergy 3 [facility] Repository Medications Current Medications Medication Drug Class(es) [...] 2023 1:00am take 1 tablet by elizabeth every twelve hours Diclofenac Sodium 50 MG [...] Jun, Active take 1 capsule by mo [facility] every twenty-four hours Cymbalta 60 MG [...] take 1 tablet by mouth once daily Losartan-[place] chlorothiazide Active 1 TAB PO Daily July 17, 2023 12:00am Start: 12-12-2022 take 1 tablet by elizabeth th every twenty-four hours Losartan Potassium-HCTZ 50-12.5 MG 1 tablet Orally Once a day for 90 days Dec, Active Start: 12-12-2022 take 1 tablet by elizabeth th once daily Losartan Potassium-HCTZ 50-12.5 MG 1 [...] 1:00am take 1 tablet by elizabeth th once daily as needed Zofran 8 MG 1 tablet as needed Orally Once a day Active polyethylene glycol 3350 359632 mg / potassium chloride 2970 mg / sodium bicarbonate 6740 mg / sodium chloride 5860 mg / sodium sulfate 67220 mg powder for oral solution (6 sources) [...] 2016 12:00am January 29, 2019 7:38am sennosides, long-term 8.6 mg oral tablet (16 sources) Start: [...] 07-12-2022 Episodic Other aftercare (1 source) 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 JKW Performed By: #### C BC, POOJA, LIPASE #### [address] Amylase 43 U/L Normal 29-103 U/L [facility] Other Amylase [Enzymatic activity/ volume] in Serum or PlasmaOrdered By: Maribeth Vuong on 07-15-2022 Amylase [Catalytic activity/Vol] 43 U/L 29-103 [facility] Basophils Auto (Bld) [#/Vol] Ordered By: Maribeth Vuong on 07-15-2022 Basophils (Bld) [#/Vol] 0.0 10*3/uL 0.0-0.2 [facility] Basophils/100 WBC Auto (Bld) Ordered By: Maribeth Vuong on 07-15-2022 Basophils/100 WBC (Bld) 0.5 % . F [facility] CBC W MANUAL DIFFon 07-16-19 23 ATYPICAL LYMPH # Normal The [facility] Comment on above: Performed By: #### C BCDOLORES ####[facility] [address] [place] [id number]. Keylan David ATYPICAL LYMPH % Normal The [facility] Comment on above: Performed By: #### C BCMAN ####[facility] G[address]jbkhicd37[address] [place] [id number]. Yilan David BAND # 0.1 103/ul Normal 0.0-0.3 [facility] Comment on above: Performed By: #### C BCDOLORES ####[facility] Lcttaluwmv[address] [place] [id number]. Yilan David BAND % 1 % Normal 0-5 [facility] Comment on above: Performed By: #### C JEAN ####[facility] [address] [place] [address]Dr. Sydney David BASOM # 0.00 103/ul Normal 0.00-0.10 [facility] Comment on above: Performed By: #### C JEAN ####[facility] W[address] [place] [address]Dr. Yimera David BASOM % 0.0 % Critically low 0.2-2.0 The [facility] Comment on above: Performed By: #### C JEAN ####[facility] Jjtvq[address]okic[address] [place] [id number]. Yimera David BLAST # Normal [facility] Comment on above: Performed By: #### C JEAN ####[facility] [address] [place] [address]Dr. Yilan David BLAST % Normal [facility] Comment on above: Performed By: #### C JEAN ####[facility] Zeqx[address]cm[address] [place] [address]Dr. Sydney David CORRECTED WBC Normal 4.0-11.0 The [facility] Comment on above: Performed By: #### C JEAN ####[facility] Hgvlxqcdfm0964 [place] [id number]. Yilan David EOS # 0.24 103/ul Normal 0.00-0.70 [facility] Comment on above: Performed By: #### C JEAN ####[facility] L[address]zvtacxu[address] [place] [id number]. Sydney David EOS% 3.0 % Normal 0.9-7.0 [facility] Comment on above: Performed By: #### C JEAN ####[facility] Prty[address] [place], [place] [address]Yl. Sydney David HCT 46.4 % Normal 42.0-54.0 [facility] Comment on above: Performed By: #### C JEAN ####[facility] X[address] [place], [place] [address]Un. Sydney David HGB 15.4 g/dl Normal 14.0-18.0 [facility] Comment on above: Performed By: #### Maya PENA ####[facility] Bz[address]uzjbq[address] [place] [id number]. Sydney David LYMPHM # 3.36 103/ul Normal 1.20-3.80 [facility] Comment on above: Performed By: #### Maya PENA ####[facility] Cvsih[address]zfd[address] [place], [place] [address]Sj. Sydney David LYMPHM% 42.0 % Normal 20.5-60.0 [facility] Comment on above: Performed By: #### Maya PENA ####[facility] [address]zsc[address]gs[address] [place] [id number]. Sydney David MCH 30.3 pg Normal 25.9-34.0 [facility] Comment on above: Performed By: #### Maya PENA ####[facility] Chvxqhsejb2524 [place], [place] [address]Yj. Sydney David MCHC 33.2 g/dl Normal 29.9-35.2 [facility] Comment on above: Performed By: #### Maya PENA ####[facility] Ukozwhxenu2952 [place], [place] [address]Ky. Sydney David MCV 91.3 fL Normal 80.0-94.0 [facility] Comment on above: Performed By: #### Maya PENA ####[facility] Nbxl[address]ciuf[address] [place], [place] [address]Wb. Sydney David METAMYELOCYTE # Normal The [facility] Comment on above: Performed By: #### C JEAN ####[facility] [address]fe[address] [place] [id number]. Sydney David METAMYELOCYTE % Normal [facility] Comment on above: Performed By: #### C JEAN ####[facility] Xcnruqezmq15[address] [place] [id number]. Sydney David MONOM# 0.80 103/ul Normal 0.30-0.80 [facility] Comment on above: Performed By: #### C JEAN ####[facility] Egekrgfjdf[address] [place] [id number]. Sydney David MONOM% 10.0 % Normal 1.7-12.0 [facility] Comment on above: Performed By: #### C JEAN ####[facility] Ir[address] [place], [place] [address]Dr. Sydney Frankie MPV 11.8 fL Normal 9.5-13.5 [facility] Comment on above: Performed By: #### C JEAN ####[facility] [address] [place], [place] [address]Dr. Sydney David MYELOCYTE # Normal [facility] Comment on above: Performed By: #### C JEAN ####[facility] Vibwlgttjo[address] [place] [id number]. Sydney David MYELOCYTE % Normal [facility] Comment on above: Performed By: #### C JEAN ####[facility] [address]vaqt[address]nnp4547 [place] [id number]. Sydney David NRBC Normal [facility] Comment on above: Performed By: #### C JEAN ####[facility] [address]acxfktccu59[address] [place] [phone]. Keymera David PLT 249 103/ul Normal 150-450 [facility] Comment on above: Performed By: #### C JEAN ####[facility] Rwm[address]cjrr[address] [place] [phone] David RBC 5.08 106/ul Normal 4.70-6.10 [facility] Comment on above: Performed By: #### C JEAN ####[facility] Oidw[address]xfaz[address] [place], [place] [address]MpIbrahima David RDW 13.1 % Normal 11.0-15.0 [facility] Comment on above: Performed By: #### C JEAN ####[facility] Zphldbbnfs4040 [place], [place] [address]JnIbrahima David SEG # 3.52 103/ul Normal 1.40-6.50 [facility] Comment on above: Performed By: #### C JEAN ####[facility] Gmyjtucjyp5344 [place], [place] [address]MpIbrahima David SEG % 44.0 % Normal 43.0-75.0 [facility] Comment on above: Performed By: #### C JEAN ####[facility] Jzilcschtf5166 [place], [place] [address]FnIbrahima David WBC 8.0 103/ul Normal 4.0-11.0 [facility] Comment on above: Performed By: #### C JEAN ####[facility] Ekthnxasab[address]23 [place], [place] [address] ABD/PELV W CONon 07-16-19 23 [...] by: EVANGELIST LEOS Date: 2022-07-15 16:53 Normal [facility] Complete Blood Count Auto Di ffon 07-15-2022 Basophils (Bld) [#/Vol] 0.0 10*3/uL Normal 0.0-0.2 [facility] Comment on above: Order Comment: Reaso n for Exam Medication monitoring encounter Result Comment: PERF ORMED BY: [place] [address] PATHOLOGIST BUSINESS TRANSFORMATION CONSULTANT ALEM GARCIA M.D. Performed By: #### C BC, POOJA, LIPASE #### [address] Basophils/100 WBC (Bld) 0.5 % Normal . [facility] Comment on above: Order Comment: Reaso n for Exam Medication monitoring encounter Performed By: #### C BC, POOJA, LIPASE #### [address] Eosinophils (Bld) [#/Vol] 0.6 10*3/uL High 0.0-0.45 [facility] Comment on above: Order Comment: Reaso n for Exam Medication monitoring encounter Performed By: #### C BC, POOJA, LIPASE #### [address] Eosinophils/100 WBC (Bld) 6.1 % Normal . [facility] Comment on above: Order Comment: Reaso n for Exam Medication monitoring encounter Performed By: #### C BC, POOJA, LIPASE #### [address] Erythrocyte distribution width (RBC) [Ratio] 13.6 % Normal 12.0-14.8 [facility] Comment on above: Order Comment: Reaso n for Exam Medication monitoring encounter Performed By: #### C BC, POOJA, LIPASE #### [address] Hematocrit (Bld) [Volume fraction] 47.4 % Normal 38.8-50.0 [facility] Comment on above: Order Comment: Reaso n for Exam Medication monitoring encounter Performed By: #### C BC, POOJA, LIPASE #### [address] Hemoglobin (Bld) [Mass/Vol] 15.5 g/dL Normal 13.0-17.0 [facility] Comment on above: Order Comment: Reaso n for Exam Medication monitoring encounter Performed By: #### C BC, POOJA, LIPASE #### [address] Lymphocytes (Bld) [#/Vol] 4.3 10*3/uL Normal 1.00-4.8 [facility] Comment on above: Order Comment: Reaso n for Exam Medication monitoring encounter Performed By: #### C BC, POOJA, LIPASE #### [address] Lymphocytes/100 WBC (Bld) 46.5 % Normal . [facility] Comment on above: Order Comment: Reaso n for Exam Medication monitoring encounter Performed By: #### C BC, POOJA, LIPASE #### [address] MCH (RBC) [Entitic mass] 30.2 pg Normal 27.5-35.2 [facility] Comment on above: Order Comment: Reaso n for Exam Medication monitoring encounter Performed By: #### C BC, POOJA, LIPASE #### [address] MCV (RBC) [Entitic vol] 92.3 fL Normal 83.5-101 F [facility] Comment on above: Order Comment: Reaso n for Exam Medication monitoring encounter Performed By: #### C BC, POOJA, LIPASE #### [address] Mean Corpuscular HGB Conc 32.7 g/dL Normal 32.5-35.6 [facility] Comment on above: Order Comment: Reaso n for Exam Medication monitoring encounter Performed By: #### C BC, POOJA, LIPASE #### [facility] [address] Monocytes (Bld) [#/Vol] 0.8 10*3/uL Normal 0.0-0.8 [facility] Comment on above: Order Comment: Reaso n for Exam Medication monitoring encounter Performed By: #### C BC, POOJA, LIPASE #### [facility] [address] Monocytes/100 WBC (Bld) 8.3 % Normal . [facility] Comment on above: Order Comment: Reaso n for Exam Medication monitoring encounter Performed By: #### C BC, POOJA, LIPASE #### [address] Neutrophils (Bld) [#/Vol] 3.6 10*3/uL Normal 1.8-7.7 [facility] Comment on above: Order Comment: Reaso n for Exam Medication monitoring encounter Performed By: #### C BC, POOJA, LIPASE #### [address] Neutrophils/100 WBC (Bld) 38.6 % Normal . [facility] Comment on above: Order Comment: Reaso n for Exam Medication monitoring encounter Performed By: #### C BC, POOJA, LIPASE #### [facility] [address] [place] [address] NRBC% 0.0 /100{WBC} Normal 0-0.5 [facility] Comment on above: Order Comment: Reaso n for Exam Medication monitoring encounter Performed By: #### C BC, POOJA, LIPASE #### [place] [address] [place] Platelet mean volume (Bld) [Entitic vol] 11.1 fL High 6.6-10.1 [facility] Comment on above: Order Comment: Reaso n for Exam Medication monitoring encounter Performed By: #### C BC, POOJA, LIPASE #### [address] [place] [address] [facility] WBC (Bld) [#/Vol] 9.2 10*3/uL Normal 4.1-10.5 [facility] Comment on above: Order Comment: Reaso n for Exam Medication monitoring encounter Performed By: #### C BC, POOJA, LIPASE #### [facility] [address] [place] [address] [facility] Basophils (Bld) [#/Vol] 0.882204594 10*3/uL Normal 0.0-0.2 10*3/uL [facility] Other Basophils/100 WBC (Bld) 0.500 % . % [facility] [employer] Other Eosinophils (Bld) [#/Vol] 0.551923959 10*3/uL High 0.0-0.45 10*3/uL [facility] Other Eosinophils/100 WBC (Bld) 6.100 % . % [facility] Other Erythrocyte distribution width (RBC) [Ratio] 13.600 % Normal 12.0-14.8 % [facility] Other Hematocrit (Bld) [Volume fraction] 47.400 % Normal 38.8-50.0 % [facility] Other Hemoglobin (Bld) [Mass/Vol] 15.306652 g/dL Normal 13.0-17.0 g/dL [facility] Other Lymphocytes (Bld) [#/Vol] 4.774435698 10*3/uL Normal 1.00-4.8 10*3/uL [facility] Other Lymphocytes/100 WBC (Bld) 46.500 % . % [facility] Other MCH (RBC) [Entitic mass] 30.2000 pg Normal 27.5-35.2 pg [facility] Other MCV (RBC) [Entitic vol] 92.3000 fL Normal 83.5-101 fL [facility] Other Monocytes (Bld) [#/Vol] 0.450410734 10*3/uL Normal 0.0-0.8 10*3/uL [facility] Other Monocytes/100 WBC (Bld) 8.300 % . % N [employer] Other Neutrophils (Bld) [#/Vol] 3.322977686 10*3/uL Normal 1.8-7.7 10*3/uL [facility] Other Neutrophils/100 WBC (Bld) 38.600 % . % [facility] Other Platelet mean volume (Bld) [Entitic vol] 11.1000 fL High 6.6-10.1 fL [facility] Other WBC (Bld) [#/Vol] 9.329095875 10*3/uL Normal 4.1 -10.5 10*3/uL [facility] Other Complete Blood Count Auto Diff 9.2 10*3/uL Normal 4.1-10.5 10*3/uL [facility] Other Complete Blood Count Auto Diff 32.7 g/dL Normal 32.5-35.6 g/dL [facility] Other Complete Blood Count Auto Diff 0.0 /100{WBC} Normal 0-0.5 /100{WBC} [facility] Other Complete Blood Count Auto Di ffOrdered By: Maribeth Vuong on 07-15-2022 Platelets (Bld) [#/Vol] 236 10*3/uL Normal 150-450 [facility] Comment on above: Order Comment: Reaso n for Exam Medication monitoring encounter Performed By: #### C BC, POOJA, LIPASE #### [facility] [address] [place] [address] RBC (Bld) [#/Vol] 5.13 10*6/uL Normal 3.90-5.60 [facility] Comment on above: Order Comment: Reaso n for Exam Medication monitoring encounter Performed By: #### C BC, POOJA, LIPASE #### [facility] [address] ER URINE PROFILEon 3 Bilirubin Ql (U) Negative Normal NEGATIVE The [facility] Comment on above: Performed By: #### E RUR ####[facility] [address] [place] [address]Dr. Sydney David Clarity (U) CLEAR Normal CLEAR [facility] Comment on above: Performed By: #### E RUR ####[facility] X[address] [place], [place] [address]Dr. Yilan David Color (U) LT. YELLOW Normal YELLOW [facility] Comment on above: Performed By: #### E RUR ####[facility] Y[address] [place], [place] [address]Dr. Keymera David ERUAHD A micrscopic examination will be performed if indicated. Normal [facility] Comment on above: Performed By: #### E RUR ####[facility] [address] [place], [place] [address]Dr. Yilan David Glucose Ql (U) Negative Normal NEGATIVE [facility] Comment on above: Performed By: #### E RUR ####[facility] [address] [place] [address]Dr. Yilan David Hemoglobin Ql (U) Negative Normal NEGATIVE The [facility] Comment on above: Performed By: #### E RUR ####[facility] T[address] [place] [address]Dr. Yilan David Ketones Ql (U) Negative Normal NEGATIVE [facility] Comment on above: Performed By: #### E RUR ####[facility] [address] [place], [place] [address]Dr. Yilan David LEUKOCYTES Negative Normal NEGATIVE [facility] Comment on above: Performed By: #### E RUR ####[facility] [address] [place], [place] [address]Dr. Yilan David Nitrite Ql (U) Negative Normal NEGATIVE The [facility] Comment on above: Performed By: #### E RUR ####[facility] [address] [place] [address]Dr. Sydney David pH (U) 5.5 [pH] Normal 5-9 [facility] Comment on above: Performed By: #### E RUR ####[facility] [address] [place] [address]Dr. Sydney David SPEC GRAVITY 1.010 Normal 1.005-<=1.[address] [place] [address] Comment on above: Performed By: #### E RUR ####[facility] [address] [place] [address]Dr. Sydney David UA PROTEIN Negative Normal NEGATIVE/ TRACE [facility] Comment on above: Performed By: #### E RUR ####[facility] Zq[address] [place], [place] [address]Dr. Sydney David UR MICRO IND NOT INDICATED Normal [facility] Comment on above: Performed By: #### E RUR ####[facility] [address] [place] [address]Dr. Sydney David Urobilinogen Qn (U) 0.2 {Johan'U}/dL Normal 0.2 - 1. 0 [facility] Comment on above: Performed By: #### E RUR ####[facility] J[address]wrffvr[address] [place], [place] [address]Dr. Keymera Frankie Eosinophils Auto (Bld) [#/Vo l]Ordered By: Maribeth Vuong on 07-15-2022 Eosinophils (Bld) [#/Vol] 0.6 10*3/uL 0.0-0.45 [facility] Eosinophils/100 WBC Auto (Bl d)Ordered By: Maribeth Vuong on 07-15-2022 Eosinophils/100 WBC (Bld) 6.1 % . [facility] Erythrocyte distribution wid th Auto (RBC) [Ratio]Ordered By: Maribeth Vuong on 07-15-2022 Erythrocyte distribution width (RBC) [Ratio] 13.6 % 12.0-14.8 [facility] Hematocrit Auto (Bld) [Volum e fraction]Ordered By: Maribeth Vuong on 07-15-2022 Hematocrit (Bld) [Volume fraction] 47.4 % 38.8-50.0 [facility] Hemoglobin [Mass/volume] in BloodOrdered By: Maribeth Vuong on 07-15-2022 Hemoglobin (Bld) [Mass/Vol] 15.5 g/dL 13.0-17.0 [facility] Leukocytes [#/volume] correc gris for nucleated erythrocytes in Blood by Automated counOrdered By: Maribeth Vuong on 07-15-2022 WBC corrected for nucl RBC Auto (Bld) [#/Vol] 9.2 10*3/uL 4.1-10.5 [facility] Lipaseon 07-15-2022 Lipase [Catalytic activity/Vol] 80.0 U/L Normal 11.0-82.0 [facility] Comment on above: Order Comment: Reaso n for Exam Generalized abdominal pain;Slow transit constipation;Medicat Reason for Exam Generalized abdominal pain;Medication monitoring encounter NOT FASTING. JKW Result Comment: PERF ORMED BY: [place] [address] PATHOLOGIST BUSINESS TRANSFORMATION CONSULTANT ALEM GARCIA M.D. Performed By: #### C BC, POOJA, LIPASE #### [address] Lipase [Catalytic activity/Vol] 80.04411 U/L Normal 11.0-82.0 U/L [facility] Other Lipase [Enzymatic activity/v olume] in Serum or PlasmaOrdered By: Maribeth Vuong on 07-15-2022 Lipase [Catalytic activity/Vol] 80.0 U/L 11.0-82.0 [facility] Lymphocytes Auto (Bld) [#/Vo l]Ordered By: Maribeth Vuong on 07-15-2022 Lymphocytes (Bld) [#/Vol] 4.3 10*3/uL 1.00-4.8 [facility] Lymphocytes/100 WBC Auto (Bl d)Ordered By: Maribeth Vuong on 07-15-2022 Lymphocytes/100 WBC (Bld) 46.5 % . [facility] MCH Auto (RBC) [Entitic mass ]Ordered By: Maribeth Vuong on 07-15-2022 MCH (RBC) [Entitic mass] 30.2 pg 27.5-35.2 [facility] [facility] MCHC Auto (RBC) [Mass/Vol]Or dered By: Maribeth Vuong on 07-15-2022 MCHC (RBC) [Mass/Vol] 32.7 g/dL 32.5-35.6 Fir [facility] MCV Auto (RBC) [Entitic vol] Ordered By: Maribeth Vuong on 07-15-2022 MCV (RBC) [Entitic vol] 92.3 fL 83.5-101 F [facility] Monocytes Auto (Bld) [#/Vol] Ordered By: Maribeth Vuong on 07-15-2022 Monocytes (Bld) [#/Vol] 0.8 10*3/uL 0.0-0.8 [facility] Monocytes/100 WBC Auto (Bld) Ordered By: Maribeth Vuong on 07-15-2022 Monocytes/100 WBC (Bld) 8.3 % . F [facility] Neutrophils Auto (Bld) [#/Vo l]Ordered By: Maribeth Vuong on 07-15-2022 Neutrophils (Bld) [#/Vol] 3.6 10*3/uL 1.8-7.7 [facility] Neutrophils/100 WBC Auto (Bl d)Ordered By: Maribeth Vuong on 07-15-2022 Neutrophils/100 WBC (Bld) 38.6 % . [facility] Nucleated erythrocytes [Pres ence] in Blood by Automated countOrdered By: Maribeth Vuong on 07-15-2022 Nucleated RBC Auto Ql (Bld) 0.0 /100{WBC} 0-0.5 [facility] PROF CHEM 8 (BAS METB)on Anion gap [Moles/Vol] 13.3 mmol/L Normal [facility] Comment on above: Performed By: #### B MP #### [facility] [address] [address] [address] Sydney David Calcium [Mass/Vol] 9.1 mg/dL Normal 8.5-10.1 The [facility] Comment on above: Performed By: #### B MP #### [facility] [address] [address] [address] Sydney David Chloride [Moles/Vol] 102 mmol/L Normal 98-107 [facility] Comment on above: Performed By: #### B MP #### [facility] [address] [address] [address] Sydney David CO2 [Moles/Vol] 27.2 mmol/L Normal 21.0-32.0 [facility] Comment on above: Performed By: #### B MP #### [facility] [address] [address] [address] Sydney David Creatinine [Mass/Vol] 1.08 mg/dL Normal 0.70-1.30 [facility] Comment on above: Performed By: #### B MP #### [facility] [address] [address] [address] Sydney David EGFR-AF CITIZ[place] >60 Normal >=60 The [facility] Comment on above: Performed By: #### B MP #### [facility] [address] [address] [address] Sydney David EGFR-NON AF CITIZEN OF [place] >60 Normal >=60 [facility] Comment on above: Performed By: #### B MP #### [facility] [address] [address] [address] Sydney David Glucose [Mass/Vol] 116 mg/dL Critically high 74-106 [facility] Comment on above: Performed By: #### B MP #### [facility] [address] [address] [address] Sydney David Potassium [Moles/Vol] 3.5 mmol/L Normal 3.5-5.1 [facility] Comment on above: Performed By: #### B MP #### [facility] [address] [place] [address] Dr. Sydney David Sodium [Moles/Vol] 139 mmol/L Normal 136-145 The [facility] Comment on above: Performed By: #### B MP #### [facility] [address] [address] [address] Sydney David Urea nitrogen [Mass/Vol] 12.0 mg/dL Normal 7.0-18.0 [facility] Comment on above: Performed By: #### B MP #### [facility] [address] [address] [address] Sydney David Urea nitrogen/Creatinine [Mass ratio] 11.1 mg/mg Normal [facility] Comment on above: Performed By: #### B MP #### [facility] [address] [address] [address] Sydney David Platelet mean volume Auto (B ld) [Entitic vol]Ordered By: Maribeth Vuong on 07-15-2022 Platelet mean volume (Bld) [Entitic vol] 11.1 fL 6.6-10.1 [facility] WBC Auto (Bld) [#/Vol]Ordere d By: Maribeth Vuong on 07-15-2022 WBC (Bld) [#/Vol] 9.2 10*3/uL 4.1-10.5 [facility] XR KUBon 07-15-2022 XR KUB [facility] [place] [address] XRay Report Signed Patient: Neal Irene MR#: [id number] : 1980 Acct:[id number] Age/Sex: 41 / M ADM Date: 07/15/22 Loc: [facility] Room: Type: [facility] Attending Dr: Maribeth Vuong DO Copies to: [...] Greer Jr., D.O.07/15/2022 4:05 PM Dictation Location: [place] [address] Transcribed By: JIL 07/15/22 160 Dictated By: Sonny Greer Jr, 07/15/22 160 Signed By: 07/15/22 160 Normal [facility] Alanine aminotransferase [En zymatic activity/volume] in Serum or PlasmaOrdered By: Maribeth Vuong on 07-12-2022 ALT [Catalytic activity/Vol] 68 U/L 7-52 [facility] Albumin [Mass/volume] in Ser um or Plasma by Bromocresol green (BCG) dye binding methoOrdered By: Maribeth Vuong on 07-12-2022 Albumin BCG dye [Mass/Vol] 4.7 g/dL 3.5-5.7 [facility] Alkaline phosphatase [Enzyma tic activity/volume] in Serum or PlasmaOrdered By: Maribeth Vuong on 07-12-2022 ALP [Catalytic activity/Vol] 33 U/L 34-104 [facility] Aspartate aminotransferase [ Enzymatic activity/volume] in Serum or PlasmaOrdered By: Maribeth Vuong 07-12-2022 AST [Catalytic activity/Vol] 29 U/L 13-39 [facility] Bilirubin.total [Mass/volume ] in Serum or PlasmaOrdered By: Maribeth Vuong 07-12-2022 Bilirubin [Mass/Vol] 0.6 mg/dL 0.3-1.0 [facility] Calcium [Mass/volume] in Ser um or PlasmaOrdered By: Maribeth Vuong 07-12-2022 Calcium [Mass/Vol] 10.1 mg/dL 8.6-10.3 [facility] Carbon dioxide, total [Moles /volume] in Serum or PlasmaOrdered By: Maribeth Vuong 07-12-2022 CO2 [Moles/Vol] 27.5 mmol/L 21.0-31.0 [facility] Chloride [Moles/volume] in S flash or PlasmaOrdered By: Maribeth Vuong 07-12-2022 Chloride [Moles/Vol] 106 mmol/L 98-107 [facility] Cholesterol [Mass/volume] in Serum or PlasmaOrdered By: Maribeth Vuong 07-12-2022 Cholesterol [Mass/Vol] 296 mg/dL 140-200 [facility] Comment on above: Chol less than 200 m g/dl low riskChol 201-239 mg/dl borderline riskChol 240 mg/dl and greater high risk Cholesterol in LDL Calc [Mas s/Vol]Ordered By: Maribeth Vuong on 07-12-2022 Cholesterol in LDL [Mass/Vol] 206 mg/dL 0-100 [facility] Comment on above: LDL ATP III CLASSIFI CATIONLDL less than 100 mg/dL OptimalLDL 100-129 mg/dL Near or above optimalLDL 130-159 mg/dL Borderline highLDL 160-189 mg/dL HighLDL greater than 189 mg/dL Very high Cholesterol in VLDL Calc [Ma ss/Vol]Ordered By: Maribeth Vuong on 07-12-2022 Cholesterol in VLDL [Mass/Vol] 53 mg/dL [facility] Comprehensive Metabolic Pane jenni 07-12-2022 Albumin [Mass/Vol] 4.7 g/dL Normal 3.5-5.7 [facility] Comment on above: Order Comment: PT FA STED 12 HOURS Reason for Exam Well adult exam;Lipid disorder;Medication monitoring encount Reason for Exam Lipid disorder Performed By: #### L SOLOMON, PSAS W RFX, CMP #### [facility] [address] [place] [address] [place] Albumin/Globulin [Mass ratio] 1.8 {ratio} Normal [facility] Comment on above: Order Comment: PT FA STED 12 HOURS Reason for Exam Well adult exam;Lipid disorder;Medication monitoring encount Reason for Exam Lipid disorder Performed By: #### L IPID, PSAS W RFX, CMP #### [facility] [address] [place] [address] [place] ALP [Catalytic activity/Vol] 33 U/L Low 34-104 [facility] Comment on above: Order Comment: PT FA STED 12 HOURS Reason for Exam Well adult exam;Lipid disorder;Medication monitoring encount Reason for Exam Lipid disorder Performed By: #### L IPID, PSAS W RFX, CMP #### [facility] [address] [place] [address] [place] ALT [Catalytic activity/Vol] 68 U/L High 7-52 [facility] Comment on above: Order Comment: PT FA STED 12 HOURS Reason for Exam Well adult exam;Lipid disorder;Medication monitoring encount Reason for Exam Lipid disorder Performed By: #### L IPID, PSAS W RFX, CMP #### [facility] [address] Anion gap [Moles/Vol] 11.8 mmol/L Normal 6.0-15.0 [facility] Comment on above: Order Comment: PT FA STED 12 HOURS Reason for Exam Well adult exam;Lipid disorder;Medication monitoring encount Reason for Exam Lipid disorder Performed By: #### L IPID, PSAS W RFX, CMP #### [facility] [address] AST [Catalytic activity/Vol] 29 U/L Normal 13-39 [facility] Comment on above: Order Comment: PT FA STED 12 HOURS Reason for Exam Well adult exam;Lipid disorder;Medication monitoring encount Reason for Exam Lipid disorder Performed By: #### L SOLOMON, PSAS W RFX, CMP #### [facility] [address] [place] [address] Bilirubin [Mass/Vol] 0.6 mg/dL Normal 0.3-1.0 [facility] Comment on above: Order Comment: PT FA STED 12 HOURS Reason for Exam Well adult exam;Lipid disorder;Medication monitoring encount Reason for Exam Lipid disorder Performed By: #### L IPDANNIELLE, PSAS W RFX, CMP #### [facility] [address] [place] [address] Calcium [Mass/Vol] 10.1 mg/dL Normal 8.6-10.3 [facility] Comment on above: Order Comment: PT FA STED 12 HOURS Reason for Exam Well adult exam;Lipid disorder;Medication monitoring encount Reason for Exam Lipid disorder Performed By: #### L IPID, PSAS W RFX, CMP #### [facility] [address] Chloride [Moles/Vol] 106 mmol/L Normal 98-107 [facility] Comment on above: Order Comment: PT FA STED 12 HOURS Reason for Exam Well adult exam;Lipid disorder;Medication monitoring encount Reason for Exam Lipid disorder Performed By: #### L IPID, PSAS W RFX, CMP #### [facility] [address] CO2 [Moles/Vol] 27.5 mmol/L Normal 21.0-31.0 [facility] Comment on above: Order Comment: PT FA STED 12 HOURS Reason for Exam Well adult exam;Lipid disorder;Medication monitoring encount Reason for Exam Lipid disorder Performed By: #### L IPDANNIELLE PSAS W RFX, CMP #### [facility] [address] Creatinine [Mass/Vol] 0.96 mg/dL Normal 0.70-1.30 [facility] Comment on above: Order Comment: PT FA STED 12 HOURS Reason for Exam Well adult exam;Lipid disorder;Medication monitoring encount Reason for Exam Lipid disorder Performed By: #### L IPDANNIELLE PSAS W RFX, CMP #### [facility] [address] [place] [address] GFR/1.73 sq M.predicted MDRD (S/P/Bld) [Vol rate/Area] mL/min/{1.73_m2} Normal [facility] Comment on above: Order Comment: PT FA STED 12 HOURS Reason for Exam Well adult exam;Lipid disorder;Medication monitoring encount Reason for Exam Lipid disorder Performed By: #### L SOLOMON PSAS W RFX, CMP #### [facility] [address] [place] [address] Globulin (S) [Mass/Vol] 2.6 g/dL Normal [facility] Comment on above: Order Comment: PT FA STED 12 HOURS Reason for Exam Well adult exam;Lipid disorder;Medication monitoring encount Reason for Exam Lipid disorder Performed By: #### L IPID, PSAS W RFX, CMP #### [facility] [address] Glucose [Mass/Vol] 106 mg/dL High 70-100 [facility] Comment on above: Order Comment: PT FA STED 12 HOURS Reason for Exam Well adult exam;Lipid disorder;Medication monitoring encount Reason for Exam Lipid disorder Result Comment: [facility] Glucose Reference Range is dependent on time and content of last meal. Glucose of more than 200 mg/dL in a nonstressed, ambulatory subject supports the diagnosis of Diabetes Mellitus. ADA recommended reference range Performed By: #### L IPID, PSAS W RFX, CMP #### [facility] [address] Potassium [Moles/Vol] 4.3 mmol/L Normal 3.5-5.1 [facility] Comment on above: Order Comment: PT FA STED 12 HOURS Reason for Exam Well adult exam;Lipid disorder;Medication monitoring encount Reason for Exam Lipid disorder Performed By: #### L IPDANNIELLE PSAS W RFX, CMP #### [facility] [address] Protein [Mass/Vol] 7.3 g/dL Normal 6.4-8.9 [facility] Comment on above: Order Comment: PT FA STED 12 HOURS Reason for Exam Well adult exam;Lipid disorder;Medication monitoring encount Reason for Exam Lipid disorder Performed By: #### L IPID, PSAS W RFX, CMP #### [facility] [address] [place] [address] [place] Sodium [Moles/Vol] 141 mmol/L Normal 136-145 [facility] Comment on above: Order Comment: PT FA STED 12 HOURS Reason for Exam Well adult exam;Lipid disorder;Medication monitoring encount Reason for Exam Lipid disorder Performed By: #### L IPID, PSAS W RFX, CMP #### [facility] [address] [place] [address] [place] Urea nitrogen [Mass/Vol] 12 mg/dL Normal 7-25 [facility] Comment on above: Order Comment: PT FA STED 12 HOURS Reason for Exam Well adult exam;Lipid disorder;Medication monitoring encount Reason for Exam Lipid disorder Performed By: #### L IPID, PSAS W RFX, CMP #### [facility] [address] [id number] [place] Creatinine [Mass/volume] in Serum or PlasmaOrdered By: Maribeth Vuong on 07-12-2022 Creatinine [Mass/Vol] 0.96 mg/dL 0.70-1.30 [facility] Globulin Calc (S) [Mass/Vol] Ordered By: Maribeth Vuong on 07-12-2022 Globulin (S) [Mass/Vol] 2.6 g/dL [facility] Glucose [Mass/volume] in Ser um or PlasmaOrdered By: Maribeth Vuong on 07-12-2022 Glucose [Mass/Vol] 106 mg/dL 70-100 [facility] Comment on above: ADA recommended refe rence rangeRandom Glucose Reference Range is dependent on time and content of last meal. Glucose of more than 200 mg/dL in a nonstressed, ambulatory subject supports the diagnosis of Diabetes Mellitus. Lipid Panelon 07-12-2022 Cholesterol [Mass/Vol] 296 mg/dL High 140-200 [facility] Comment on above: Order Comment: PT FA STED 12 HOURS Reason for Exam Well adult exam;Lipid disorder;Medication monitoring encount Reason for Exam Lipid disorder Result Comment: Chol less than 200 mg/dl low risk Chol 201-239 mg/dl borderline risk Chol 240 mg/dl and greater high risk Performed By: #### L IPID, PSAS W RFX, CMP #### [facility] [address] [id number] [facility] Cholesterol in HDL [Mass/Vol] 37 mg/dL Normal 29-71 [facility] Comment on above: Order Comment: PT FA STED 12 HOURS Reason for Exam Well adult exam;Lipid disorder;Medication monitoring encount Reason for Exam Lipid disorder Result Comment: HDL CHOL ATP-III CLASSIFICATION Cardiovascular Risk HDL > or equal to 60 mg/dL LOW HDL < 40 mg/dL HIGH Performed By: #### L IPID, PSAS W RFX, CMP #### [facility] [address] [place] [address] [facility] Cholesterol.total/Patti sterol in HDL [Mass ratio] 8.0 {ratio} Normal <5.0 [facility] Comment on above: Order Comment: PT FA STED 12 HOURS Reason for Exam Well adult exam;Lipid disorder;Medication monitoring encount Reason for Exam Lipid disorder Result Comment: PERF ORMED BY: [facility] [address] [place] [address] PATHOLOGIST BUSINESS TRANSFORMATION CONSULTANT ALEM GARCIA M.D. Performed By: #### L IPID, PSAS W RFX, CMP #### [facility] [address] LDL Cholesterol,Calculated 206 mg/dL High 0-100 [facility] Comment on above: Order Comment: PT FA [...] L IPID, PSAS W RFX, CMP #### [facility] [address] Triglyceride w/Reflex 266 mg/dL High 0-149 [facility] Comment on above: [...] L IPID, PSAS W RFX, CMP #### [facility] [address] VLDL CHOLESTEROL 53 mg/dL Normal [facility] Comment on above: Order Comment: PT FA STED 12 HOURS Reason for Exam Well adult exam;Lipid disorder;Medication monitoring encount Reason for Exam Lipid disorder Performed By: #### L IPID, PSAS W RFX, CMP #### [facility] [address] No Panel InformationOrdered By: Maribeth Vuong on 07-12-2022 Estimated GFR (CKD-EPI) > 60.0 mL/Min [facility] Creatinine Clearance (Chem N/A [facility] PSA Screen (Yearly) w/Reflex on 07-12-2022 PSA Screen (Yearly) w/Reflex 0.670 ng/mL Normal 0.000-4.000 [facility] Comment on above: Order Comment: Reaso n for Exam Well adult exam;Prostate cancer screening Is patient <50 yrs? Medicare does not pay <50.: Y What is the date of the last PSA Screen?: N/A Is Medicare the insurance?: N Did you verify eligibility (Dx Time) check TestViewGp: YES TO ALL Result Comment: PERF ORMED BY: [facility] [address] [place] [address] PATHOLOGIST BUSINESS TRANSFORMATION CONSULTANT ALEM GARCIA M.D. Performed By: #### L IPID, PSAS W RFX, CMP #### [facility] [address] Potassium [Moles/volume] in Serum or PlasmaOrdered By: Maribeth Vuong on 07-12-2022 Potassium [Moles/Vol] 4.3 mmol/L 3.5-5.1 [facility] Prostate specific Ag [Mass/v olume] in Serum or PlasmaOrdered By: Maribeth Vuong on 07-12-2022 Prostate specific Ag [Mass/Vol] 0.670 ng/mL 0.000-4.000 [facility] Protein [Mass/volume] in Ser um or PlasmaOrdered By: Maribeth Vuong on 07-12-2022 Protein [Mass/Vol] 7.3 g/dL 6.4-8.9 [facility] Serum or plasma albumin/glob ulin mass ratioOrdered By: Maribeth Vuong on 07-12-2022 Albumin/Globulin [Mass ratio] 1.8 {ratio} [facility] Serum or plasma anion gap de terminationOrdered By: Maribeth Vuong on 07-12-2022 Anion gap [Moles/Vol] 11.8 mmol/L 6.0-15.0 [facility] Serum or plasma high density lipoprotein (HDL) cholesterol measurementOrdered By: Maribeth Vuong on 07-12-2022 Cholesterol in HDL [Mass/Vol] 37 mg/dL 29-71 [facility] Comment on above: HDL CHOL ATP-III CLA SSIFICATION Cardiovascular RiskHDL > or equal to 60 mg/dL LOWHDL < 40 mg/dL HIGH Serum or plasma total choles terol/high density lipoprotein (HDL) cholesterol mass ratOrdered By: Maribeth Vuong on 07-12-2022 Cholesterol.total/Patti sterol in HDL [Mass ratio] 8.0 {ratio} <5.0 [facility] Sodium [Moles/volume] in Ser um or PlasmaOrdered By: Maribeth Vuong on 07-12-2022 Sodium [Moles/Vol] 141 mmol/L 136-145 [facility] Triglyceride [Mass/volume] i n Serum or PlasmaOrdered By: Maribeth Vuong on 07-12-2022 Triglyceride [Mass/Vol] 266 mg/dL 0-149 [facility] Comment on above: TRIG ATP III CLASSIF ICATIONTRIG less than 150 mg/dL NormalTRIG 150-199 mg/dL Borderline highTRIG 200-500 mg/dL High TRIG greater than 500 mg/dL Very highStandard traceable to the Center for Disease Conrtrol and Prevention (CDC) test method. Urea nitrogen [Mass/volume] in Serum or PlasmaOrdered By: Maribeth Vuong on 07-12-2022 Urea nitrogen [Mass/Vol] 12 mg/dL 10-29 [facility] XR LSPINE 2_3 VIEWSon 2022 XR LSPINE [...] DAMARIS ESPINOSA Date: 2022-07-02 14:57 Normal [facility] MRI PELVIS WO CONon 06-28-19 MRI PELVIS [...] DAMARIS ESPINOSA Date: 2022-06-27 09:45 Normal [facility] MRI LSPINE WO CONon 06-27-19 23 MRI [facility] WO CON EXAMINATION: MRI LSTULSA WO CON HISTORY: Lumbar radiculitis , urinary [...] RENE LAUREN Date: 2022-06-26 15:24 Normal [facility] XR lumbar spine AP/LAT/FLX/E XTon 01-08-2021 XR lumbar spine AP/LAT/FLX/EXT [facility] Sobrr Other XR lumbar spine AP/LAT/FLX/EXT [facility]rr Other XR lumbar spine AP/LAT/FLX/EXT [address] [place] [address] [facility] Other XR lumbar spine AP/LAT/FLX/[place] [address] [facility] Other XR lumbar spine AP/LAT/FLX/EXT XRay Report [facility] Other XR lumbar spine AP/LAT/FLX/EXT Signed [facility] Other XR lumbar spine AP/LAT/FLX/EXT Patient: Neal Irene MR#: [id number] [facility] Other XR lumbar spine AP/LAT/FLX/EXT 206 [facility] Other XR lumbar spine AP/LAT/FLX/EXT : 1980 Acct:[id number] [facility] Other XR lumbar spine AP/LAT/FLX/EXT Age/Sex: 40 / M ADM Date: 01/08/21 [facility] Other XR lumbar spine AP/LAT/FLX/EXT Loc: [facility] Room: Type: REG CLI [facility] Other XR lumbar spine AP/LAT/FLX/EXT Attending Dr: Charles Solares MD [facility] Other XR lumbar spine AP/LAT/FLX/EXT Ordering Provider: Charles Solares MD [facility] Other XR lumbar spine AP/LAT/FLX/EXT Date of Service: 01/08/21 [facility] Other XR lumbar spine AP/LAT/FLX/EXT XR/XR lumbar spine AP/LAT/FLX/EXT: Other spondylosis with radiculopathy, [facility] Other XR lumbar spine AP/LAT/FLX/EXT lumbar region [facility] Other XR lumbar spine AP/LAT/FLX/EXT Copies to: Charles Solares MD [facility] Other XR lumbar spine AP/LAT/FLX/EXT Lumbar spine 01/08/2021. [facility] Other XR lumbar spine AP/LAT/FLX/EXT CLINICAL DATA: Low back pain. [facility] Other XR lumbar spine AP/LAT/FLX/EXT FINDINGS: 4 standing views of the lumbar spine were obtained including lateral views in the [facility] Other XR lumbar spine AP/LAT/FLX/EXT neutral, flexion, and extension positions. This examination is compared with a prior study 04/14/2019. [facility] Other XR lumbar spine AP/LAT/FLX/EXT There are stable postsurgical changes related to lumbosacral spinal fusion. There is also stable [facility] Other XR lumbar spine AP/LAT/FLX/EXT anterior malalignment of L5 on S1. Mild posterior malalignment of L2 on L3 is noted. Overall [facility] Other XR lumbar spine AP/LAT/FLX/EXT vertebral alignment does not significantly change with limited flexion or limited extension. Disc [facility] Other XR lumbar spine AP/LAT/FLX/EXT space narrowing is identified. Minimal degenerative changes are seen. [facility] Other XR lumbar spine AP/LAT/FLX/EXT XR/XR lumbar spine AP/LAT/FLX/EXT [facility] Other XR lumbar spine AP/LAT/FLX/EXT IMPRESSION: Stable postsurgical changes and mild vertebral malalignment at the lumbosacral junction. [facility] Other XR lumbar spine AP/LAT/FLX/EXT Mild posterior malalignment of L2 on L3. No instability with limited flexion or extension. Disc [facility] Other XR lumbar spine AP/LAT/FLX/EXT space narrowing and minimal degenerative changes. [facility] Other XR lumbar spine AP/LAT/FLX/EXT Impression dictated by: Jude Stock Jr., M.D.01/08/2021 2:59 PM [facility] Other XR lumbar spine AP/LAT/FLX/EXT Dictation Location: [place] [address] [facility] Other XR lumbar spine AP/LAT/FLX/EXT Transcribed By: JIL 01/08/21 [facility] Other XR lumbar spine AP/LAT/FLX/EXT Dictated By: Jude Stock Jr, MD 01/08/21 [facility] Other XR lumbar spine AP/LAT/FLX/EXT Signed By: [facility] Other XR lumbar spine AP/LAT/FLX/EXT 01/08/21 [facility] Sobrr Other [facility]Bur[facility] 06-09-2018 CNOV Office Visit (NSFRVW ) NEAL IRENE ([id number]) 1980 M Date Time Provider Department 06/09/18 [...] fx. Had surgery by Dr. Robbie Wakefield, [facility] in [place]. He felt that he was better in [...] This happens every 12 - 15 steps. 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 Author Type: [...] fx. Had surgery by Dr. Robbie Wakefield [facility] in [place]. He felt that he was better in [...] This happens every 12 - 15 steps. 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 Hx of back problems and surgeries. Took two [place], flexeril, celebrex prior to coming. Needs another surgery for back. History of Present Illness 37-year-old white male presents emergency room with his and complaints of worsening lower back pain after bending over to light his heater in his shop. Patient has had prior back surgery by Dr. Sen in [place] March 14, 2015. Patient states he has [...] Anxious mood & affect. Integumentary: Warm, Dry, [place] Medical Decision Making X-rays did not demonstrate [...] Information RENE WASMARYCRUZ In 3 days 04/04/[address] [address]- Business (1) Additional Instructions: Call tomorrow for [...] made to ensure accuracy, however, inadvertently computerized mechanical ordnance assembler mistakes may be present. Patient was treated and evaluated by the physician customer care assistant. The attending physician was in the [...] acute fracture. Signed By: Andreas Cordova MD [facility] Comment on above: Result Comment: Elec tronically Signed By: Abdelrahman Olvera PA-C\.br\Date and Time Signed: 04/01/18 12:55 EST\.br\Electronically Co-Signed By: Lashay Li DO\.br\Date and Time Co-Signed: 04/07/18 16:20 EST Coding Summary.on 04-02-2018 Coding Summary. CODING DATE: 04/02/2018 FINAL [facility] STATUS: Home (Routine DC) PAYOR: Commercial Insurance APC DESCRIPTION 5522 Level 2 Imaging without Contrast ADMIT DX: REASON FOR VISIT DX: M54.5 Low back pain FINAL DX: PRINCIPAL: M54.5 Low back pain SECONDARY: M53.3 Sacrococcygeal disorders, not elsewhere classified Z79.899 Other skilled nursing (current) drug therapy PYMT PROC APC STAT DESCRIPTION DOCTOR NAME DATE NOTE: The code number assigned matches the documented diagnosis and / or procedure in the patient's chart. However, the narrative phrase printed from the coding software may appear abbreviated, or result in slightly different terminology. Coded By: Laila Mcghee Date Saved: 04/02/2018 11:01 am [facility] ED Clinical Summaryon 2017 ED Clinical Summary [place] [id number] ED Clinical Summary Person Information Name: NEAL IRENE/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 ? Only take ezxe-wby-cgyefci or prescription medicines as directed by your caregiver. Paen-hmk-zuxmymw medicines to reduce pain and inflammation are [...] Document Reviewed: 07/26/2014 ExitCare? Patient Information ?2015 [employer]. This information is not intended to replace [...] the first months of treatment. Only take mvvr-aah-jgwskxj or prescription medicines for pain, discomfort, or [...] Document Reviewed: 07/17/2009 ExitCare? Patient Information ?2015 [employer]. This information is not intended to replace advice given to you by your health care provider. Make sure you discuss any questions you have with your health care provider. [facility] ED Patient Summaryon 018 ED Patient Summary [place] [id number] Patient Discharge Instructions Person Information Name: NEAL IRENE Age: 37 Years Arrival Date: 04/01/2018 11:05 AM Discharge Diagnosis: Lumbosacral pain Primary Care Physician: RENE MORRELL DO Provider Information Primary Provider: Lashay Li DO Advanced Enrollment Manager:Abdelrahman Olvera PA-C The exam and treatment you received in the Emergency Department were for an urgent problem and are not intended as complete care. It is important that you follow up with a doctor, nurse practitioner, or physician?s customer care assistant for ongoing care. If your symptoms [...] Follow-up Instructions: With: Address: When: RENE MORRELL [address] [place] [address] [facility] () In 3 days 04/04/2018 Comments: [...] opioids can be used to help relieve icogilkv-pd-lqbyrf pain and are often prescribed following a [...] be struggling with addiction, tell your health intensive care anaesthetist and ask for guidance or call [facility]?S National Helpline at 9-898-106-VXVO. u Source: [place] Department of Health and Human Services/Center for Disease Control & Prevention [facility] Medications Given: Medication Dose Route [...] Comment: Pharmacy Information: Thank you for choosing [facility] Patient Education Materials: Radicular Pain [...] the first months of treatment. Only take kiyj-myv-dmjtveo or prescription medicines for pain, discomfort, or [...] Document Reviewed: 07/17/2009 ExitCare? Patient Information ?2015 [employer]. 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 ? Only take whuj-pjy-jbfncap or prescription medicines as directed by your caregiver. Xing-tdc-qgufito medicines to reduce pain and inflammation are [...] Document Reviewed: 07/26/2014 ExitCare? Patient Information ?2015 [employer]. This information is not intended to replace advice given to you by your health care provider. Make sure you discuss any questions you have with your health care provider. ELENA Bolden RUSSELL , have received the following patient education materials/instruction s and have verbalized understanding: Patient Education Materials: Radicular Pain; Back Pain, Adult Follow-up Instructions: With: Address: When: RENE SONISIL [address] [place] [address] Business (1) In 3 days 04/04/2018 Comments: [...] Signature Date Clinician/Nurse Signature Date 04/01/18 13:01:03 [facility] Progress Note-Nurseon 2017 Protein mass conc [...] . No further needs at this time. [facility] XR Spine Lumbosacral Minimum 4 Viewson [...] Cordova MD Transcribed by: DARSHAN Technologist: DEAN Abebe [facility] Vital Signs Date Time Vital Sign Value Performing Clinician Facility 07-21-2023 07:59-0400 Body height 177.8 cm DO Maribeth Vuong Work Phone: [facility] 07-21-2023 07:59-0400 Body mass index (BMI) [Ratio] 40.1 kg/m2 DO Maribeth Vuong Work Phone: [facility] 07-21-2023 07:59-0400 Body weight 127 kg DO Maribeth Vuong Work Phone: [facility] 07-21-2023 07:59-0400 Diastolic blood pressure 86 mm[Hg] DO Maribeth Vuong Work Phone: [facility] 07-21-2023 07:59-0400 Heart rate 76 /min DO Maribeth Vuong Work Phone: [facility] 07-21-2023 07:59-0400 SaO2% (BldA) [Mass fraction] 98 % DO Maribeth Vuong Work Phone: [facility] 07-21-2023 07:59-0400 Systolic blood pressure 128 mm[Hg] DO Maribeth Vuong Work Phone: [facility] 01-17-2023 09:00-0400 Body height 177.8 cm Maribeth Vuong Other [facility] Other 01-17-2023 09:00-0400 Body mass index (BMI) [Ratio] 39.17 kg/m2 Maribeth Vuong Other [facility] Other 01-17-2023 09:00-0400 Body temperature 97.7 [degF] Maribeth Vuong Other [facility] Other 01-17-2023 09:00-0400 Body weight 123.83 kg Maribeth Vuong Other [facility] Other 01-17-2023 09:00-0400 Diastolic blood pressure 78 mm[Hg] Maribeth Vuong Other [facility] Other 01-17-2023 09:00-0400 SaO2% (BldA) [Mass fraction] 98 % Maribeth Vuong Other [facility] Other 01-17-2023 09:00-0400 Systolic blood pressure 112 mm[Hg] Maribeth Vuong Other [facility] Other 12-18-2022 09:45-0400 Body height 177.8 cm Maribeth Vuong Other [facility] Other 12-18-2022 09:45-0400 Body mass index (BMI) [Ratio] 37.73 kg/m2 Maribeth Vuong Other [facility] Other 12-18-2022 09:45-0400 Body weight 119.3 kg Maribeth Vuong Other [facility] Other 12-18-2022 09:45-0400 Diastolic blood pressure 86 mm[Hg] Maribeth Vuong Other [facility] Other 12-18-2022 09:45-0400 Respiratory rate 18 /min Maribeth Vuong Other [facility] Other 12-18-2022 09:45-0400 SaO2% (BldA) [Mass fraction] 95 % Maribeth Vuong Other [facility] Other 12-18-2022 09:45-0400 Systolic blood pressure 126 mm[Hg] Maribeth Vuong Other [facility] Other 12-12-2022 08:00-0400 Body height 177.8 cm Maribeth Vuong Other [facility] Other 12-12-2022 08:00-0400 Body mass index (BMI) [Ratio] 37.73 kg/m2 Maribeth Vuong Other [facility] Other 12-12-2022 08:00-0400 Body temperature 98.5 [degF] Maribeth Vuong Other [facility] Other 12-12-2022 08:00-0400 Body weight 119.3 kg Maribeth Vuong Other [facility] Other 12-12-2022 08:00-0400 Diastolic blood pressure 102 mm[Hg] Maribeth Vuong Other [facility] Other 12-12-2022 08:00-0400 SaO2% (BldA) [Mass fraction] 96 % Maribeth Vuong Other [facility] Other 12-12-2022 08:00-0400 Systolic blood pressure 150 mm[Hg] Maribeth Vuong Other [facility] Other 09-26-2022 10:22-0400 Diastolic blood pressure 108 mm[Hg] DO Maribeth Vuong Work Phone: [facility] 09-26-2022 10:22-0400 Heart rate 74 /min DO Maribeth Woodymer Work Phone: [facility] 09-26-2022 10:22-0400 Respiratory rate 16 /min DO Maribeth Vuong Work Phone: [facility] 09-26-2022 10:22-0400 SaO2% (BldA) [Mass fraction] 98 % DO Maribeth Vuong Work Phone: [facility] 09-26-2022 10:22-0400 Systolic blood pressure 156 mm[Hg] DO Maribeth Woodymer Work Phone: [facility] 09-26-2022 08:26-0400 Body height 175.26 cm DO Maribeth Woodymer Work Phone: [facility] 09-26-2022 08:26-0400 Body temperature 98.5 [degF] DO Maribeth Woodymer Work Phone: [facility] 09-26-2022 08:26-0400 Body weight 113.39 kg DO Maribeth Carolann Work Phone: [facility] 09-11-2022 09:45-0400 Body height 177.8 cm Maribeth Vuong Other [facility] Other 09-11-2022 09:45-0400 Body mass index (BMI) [Ratio] 35.37 kg/m2 Maribeth Vuong Other [facility] Other 09-11-2022 09:45-0400 Body weight 111.81 kg Maribeth Vuong Other [facility] Other 09-11-2022 09:45-0400 Diastolic blood pressure 88 mm[Hg] Maribeth Vuong Other [facility] Other 09-11-2022 09:45-0400 Respiratory rate 18 /min Maribeth Vuong Other [facility] Other 09-11-2022 09:45-0400 SaO2% (BldA) [Mass fraction] 98 % Maribeth Vuong Other [facility] Other 09-11-2022 09:45-0400 Systolic blood pressure 142 mm[Hg] Maribeth Vuong Other [facility] Other 07-24-2022 10:30-0400 Body height 177.8 cm Igor Orr Other [facility] Other 07-24-2022 10:30-0400 Body mass index (BMI) [Ratio] 35.58 kg/m2 Igor Orr Other [facility] Other 07-24-2022 10:30-0400 Body weight 112.49 kg Igor Orr Other [facility] Other 07-24-2022 10:30-0400 Diastolic blood pressure 132 mm[Hg] Igor Dominga Other [facility] Other 07-24-2022 10:30-0400 Systolic blood pressure 187 mm[Hg] Igor Castrodian Other [facility] Other 07-15-2022 12:15-0400 Body height 177.8 cm Maribeth Vuong Other [facility] Other 07-15-2022 12:15-0400 Body mass index (BMI) [Ratio] 35.58 kg/m2 Maribeth Vuong Other [facility] Other 07-15-2022 12:15-0400 Body temperature 98.1 [degF] Maribeth Vuong Other [facility] Other 07-15-2022 12:15-0400 Body weight 112.49 kg Maribeth Vuong Other [facility] Other 07-15-2022 12:15-0400 Diastolic blood pressure 110 mm[Hg] Maribeth Vuong Other [facility] Other 07-15-2022 12:15-0400 SaO2% (BldA) [Mass fraction] 97 % Maribeth Vuong Other [facility] Other 07-15-2022 12:15-0400 Systolic blood pressure 156 mm[Hg] Maribeth Vuong Other [facility] Other 01-04-2022 12:15-0400 Body height 177.8 cm Maribeth Vuong Other [facility] Other 01-04-2022 12:15-0400 Body mass index (BMI) [Ratio] 34.39 kg/m2 Maribeth Vuong Other [facility] Other 01-04-2022 12:15-0400 Body weight 108.73 kg Maribeth Vuong Other [facility] Other 01-04-2022 12:15-0400 Diastolic blood pressure 86 mm[Hg] Maribeth Vuong Other [facility] Other 01-04-2022 12:15-0400 Respiratory rate 18 /min Maribeth Vuong Other [facility] Other 01-04-2022 12:15-0400 SaO2% (BldA) [Mass fraction] 98 % Maribeth Vuong Other [facility] Other 01-04-2022 12:15-0400 Systolic blood pressure 136 mm[Hg] Maribeth Vuong Other [facility] Other 06-22-2021 10:00-0400 Body height 177.8 cm Maribeth Vuong Other [facility] Other 06-22-2021 10:00-0400 Body mass index (BMI) [Ratio] 34.16 kg/m2 Maribeth Vuong Other [facility] Other 06-22-2021 10:00-0400 Body weight 108 kg Maribeth Vuong Other [facility] Other 06-22-2021 10:00-0400 Diastolic blood pressure 78 mm[Hg] Maribeth Vuong Other [facility] Other 06-22-2021 10:00-0400 Respiratory rate 18 /min Maribeth Vuong Other [facility] Other 06-22-2021 10:00-0400 SaO2% (BldA) [Mass fraction] 95 % Maribeth Vuong Other [facility] Other 06-22-2021 10:00-0400 Systolic blood pressure 118 mm[Hg] Maribeth Vuong Other [facility] Other 03-08-2021 12:15-0500 Body height 177.8 cm Charles Solares Other [facility] Other 03-08-2021 12:15-0500 Body mass index (BMI) [Ratio] 33.72 kg/m2 Charles Solares Other [facility] Other 03-08-2021 12:15-0500 Body weight 106.6 kg Charles Solares Other [facility] Other 02-12-2021 11:00-0500 Body height 177.8 cm Maribeth Vuong Other [facility] Other 02-12-2021 11:00-0500 Body mass index (BMI) [Ratio] 33.37 kg/m2 Maribeth Vuong Other [facility] Other 02-12-2021 11:00-0500 Body temperature 98.3 [degF] Maribeth Vuong Other [facility] Other 02-12-2021 11:00-0500 Body weight 105.51 kg Maribeth Carolann Other [facility] Other 02-12-2021 11:00-0500 Diastolic blood pressure 88 mm[Hg] Maribeth Carolann Other [facility] Other 02-12-2021 11:00-0500 Respiratory rate 18 /min Maribeth Carolann Other [facility] Other 02-12-2021 11:00-0500 SaO2% (BldA) [Mass fraction] 99 % Maribeth Carolann Other [facility] Other 02-12-2021 11:00-0500 Systolic blood pressure 134 mm[Hg] Maribeth Vuong Other [facility] Other 02-01-2021 11:45-0400 Body height 177.8 cm Maribeth Carolann Other [facility] Other 02-01-2021 11:45-0400 Body mass index (BMI) [Ratio] 35.48 kg/m2 Maribeth Carolann Other [facility] Other 02-01-2021 11:45-0400 Body temperature 98.2 [degF] Maribeth Vuong Other [facility] Other 02-01-2021 11:45-0400 Body weight 112.18 kg Maribeth Vuong Other [facility] Other 02-01-2021 11:45-0400 Diastolic blood pressure 86 mm[Hg] Maribeth Vuong Other [facility] Other 10-28-2021 11:45-0400 Respiratory rate 18 /min Maribeth Vuong Other [facility] Other 02-01-2021 11:45-0400 SaO2% (BldA) [Mass fraction] 97 % Maribeth Vuong Other [facility] Other 02-01-2021 11:45-0400 Systolic blood pressure 136 mm[Hg] Maribeth Vuong Other [facility] Other Encounters Encounter Date Encounter Type Care Provider Facility Start: 09-30-2023 ambulatory Maribethwaldo Higgins Carolann DO Facility:[facility] Start: 09-10-2023 ambulatory Maribethwaldo Higgins Carolann DO Facility:[facility] Start: 07-21-2023 End: 07-21-2023 ambulatory DO Maribeth Williamson Carolann Work Phone: [facility] Work Phone: Start: 07-21-2023 End: 07-21-2023 Patient encounter procedure DO Maribeth Vuong Work Phone: [facility] [place] Work Phone: Start: 06-03-2023 End: 06-03-2023 Patient encounter procedure DO Maribeth Vuong Work Phone: [facility] Physician [facility] Work Phone: Start: 05-29-2023 Non-patient / Non-visit DO Maribeth Vuong Work Phone: [facility] Physician [facility] [employer] Work Phone: Start: 03-13-2023 End: 03-13-2023 ambulatory Maribeth Vuong Other [facility] Other Start: 03-13-2023 Telephone encounter Maribeth [facility]cer [facility] Start: 02-05-2023 End: 02-05-2023 ambulatory Maribeth Vuong Other [facility] Other Start: 02-05-2023 Telephone encounter Maribeth [facility] Start: 01-17-2023 End: 01-17-2023 ambulatory Maribeth Vuong Other [facility] Other Start: 01-17-2023 Encounter for genera l adult medical examination without abnormal findings Maribeth Vuong [facility] [place] Start: 01-17-2023 Periodic preventive med est patient 40-64yrs Maribeth Vuong [facility] [place] Start: 12-18-2022 (Procedure) Short Maribeth Vuong [facility] [place] Start: 12-18-2022 End: 12-18-2022 ambulatory Maribeth Vuong Other [facility] Other Start: 12-12-2022 End: 12-12-2022 ambulatory Maribeth Vuong Other [facility] Other Start: 12-12-2022 Office outpatient visit 15 minutes Maribeth Vuong [facility] [place] Start: 12-05-2022 End: 12-05-2022 ambulatory Maribeth Vuong Other [facility] Other Start: 12-05-2022 Telephone encounter Maribeth Mer[facility] [place] Start: 09-28-2022 End: 09-28-2022 ambulatory Nash Cardenas Other [facility] Other Start: 09-28-2022 Telephone encounter Nash COCH[facility] Start: 09-26-2022 End: 09-26-2022 ambulatory Nash Cardenas Facility:[facility] Start: 09-26-2022 End: 09-26-2022 Admission to same day surgery center DO Maribeth Vuong Work Phone: [facility] Work Phone: Start: 09-26-2022 End: 09-26-2022 ambulatory DO Maribeth Vuong Work Phone: [facility] Work Phone: Start: 09-11-2022 (Procedure) Short Maribeth Carolann [facility] [place] Start: 09-11-2022 End: 09-11-2022 ambulatory Maribeth Vuong Other [facility] Other Start: 09-10-2022 End: 09-10-2022 ambulatory Maribeth Vuong Other [facility] Other Start: 09-10-2022 Telephone encounter Maribeth Mercer [facility] [place] Start: 09-03-2022 End: 09-03-2022 ambulatory NARENDRANATH LAKSHMIPATHY . Facility:[facility] Start: 08-20-2022 End: 08-20-2022 ambulatory Maribeth Vuong Facility:[facility] Start: 08-20-2022 End: 08-20-2022 ambulatory DO Maribeth Vuong Work Phone: [facility] Work Phone: Start: 08-20-2022 End: 08-20-2022 Patient encounter procedure DO Maribeth Vuong Work Phone: [facility] [address] Start: 08-16-2022 End: 08-17-2022 ambulatory NARENDRANATH LAKSHMIPATHY . Facility:[facility] Start: 08-02-2022 End: 08-02-2022 ambulatory Maribeth Vuong Other [facility] Other Start: 08-02-2022 Telephone encounter Maribeth Mercer [facility] [place] Start: 07-30-2022 End: 07-30-2022 ambulatory NARENDRANATH LAKSHMIPATHY . Facility:[facility] Start: 07-24-2022 End: 07-24-2022 ambulatory Igor Orr Other [facility] Other Start: 07-24-2022 Office outpatient ne w 30 minutes Igor Orr [facility] Start: 07-23-2022 End: 07-24-2022 ambulatory NARENDRANATH LAKSHMIPATHY . Facility:[facility] Start: 07-16-2022 End: 07-16-2022 ambulatory Maribeth Vuong Other [facility] Other Start: 07-16-2022 Telephone encounter Maribeth Vuong [facility] [place] Start: 07-15-2022 Office outpatient visit 25 minutes Maribeth Vuong [facility] [place] Start: 07-15-2022 Telephone encounter Maribeth Carolann [facility] [place] Start: 07-15-2022 End: 07-15-2022 ambulatory DO Maribeth Vuong Work Phone: [facility] [employer] Other Start: 07-15-2022 End: 07-15-2022 Patient encounter procedure DO Maribeth Vuong Work Phone: [facility] Start: 07-12-2022 End: 07-12-2022 ambulatory Maribeth Vuong Facility:[facility] Start: 07-12-2022 Encounter for genera l adult medical examination without abnormal findings Maribeth Vuong [facility] Start: 07-12-2022 End: 07-12-2022 ambulatory DO Maribeth Vuong Work Phone: [facility] Work Phone: Start: 07-12-2022 End: 07-12-2022 Patient encounter procedure DO Maribeth Vuong Work Phone: [facility] [place] Work Phone: Start: 07-02-2022 End: 07-03-2022 ambulatory [...] 01-04-2022 End: 01-04-2022 ambulatory Maribeth Vuong Other [facility] Other Start: 01-04-2022 Encounter for genera l adult medical examination without abnormal findings Maribeth Vuong [facility] [place] Start: 01-04-2022 Periodic preventive med est patient 40-64yrs Maribeth Vuong [facility] [place] Start: 12-13-2021 End: 12-14-[address] JESSICA JOEL . Facility:[facility] Start: 10-31-2021 End: 11-01-[address] JESSICA JOEL . Facility:[facility] Start: 10-03-2021 End: 10-04-2021 ambulatory BRIT SCHUSTER . Facility:[facility] Start: 09-29-2021 End: 09-29-2021 ambulatory MARIBETH VUONG Facility:[facility] Start: 08-17-2021 End: 08-17-2021 ambulatory Charles Solares Other [facility] Other Start: 08-17-2021 Telephone encounter [facility] [place] Start: 08-07-2021 End: 08-07-2021 ambulatory Charles Solares Other [facility] Other Start: 08-07-2021 Telephone encounter [facility] [place] [facility] Start: 07-13-2021 End: 07-13-2021 ambulatory Maribeth Vuong Other [facility] Other Start: 07-13-2021 Telephone encounter Maribeth Mercer [facility] [place] Start: 07-09-2021 End: 07-09-2021 ambulatory Charles Solares Other [facility] Other Start: 07-09-2021 Office outpatient visit 25 minutes Charles Solares [facility] [place] Start: 06-22-2021 End: 06-22-2021 ambulatory Maribeth Vuong Other [facility] Other Start: 06-22-2021 Office outpatient visit 15 minutes Maribeth Vuong [facility] [place] Start: 06-06-2021 End: 06-06-2021 ambulatory Charles Solares Other [facility] Other Start: 06-06-2021 Office outpatient visit 25 minutes Charles Solares [facility] [place] Start: 05-29-2021 End: 05-29-2021 ambulatory Maribeth Vuong Other [facility] Other Start: 05-29-2021 Telephone encounter Maribeth Mercer [facility] [place] Start: 05-22-2021 End: 05-22-2021 ambulatory Maribeth Vuong Other [facility] Other Start: 05-22-2021 Telephone encounter Maribeth Mercer [facility] [place] Start: 05-21-2021 End: 05-21-2021 ambulatory Maribethwaldo Vuong Other [facility] Other Start: 05-21-2021 Telephone encounter Maribeth Mercer [facility] [place] Start: 05-08-2021 End: 05-08-2021 ambulatory Charles Felter Other [facility] Other Start: 05-08-2021 Office outpatient visit 25 minutes Charles Felter [facility] [place] Start: 04-12-2021 End: 04-12-2021 ambulatory Charles Hernandezer Other [facility] Other Start: 04-12-2021 Office outpatient visit 25 minutes Charles Felter [facility] [place] Start: 03-08-2021 End: 03-08-2021 ambulatory Charles Hernandezer Other [facility] Other Start: 03-08-2021 Office outpatient visit 25 minutes Charles Felter [facility] [place] Start: 02-28-2021 End: 02-28-2021 ambulatory Maribeth Woodymer Other [facility] Other Start: 02-28-2021 Telephone encounter Maribeth [facility] [place] Start: 02-12-2021 End: 02-12-2021 ambulatory Maribeth Vuong Other [facility] Other Start: 02-12-2021 Office outpatient visit 15 minutes Maribeth Vuong [facility] [place] Start: 02-05-2021 Office outpatient visit 25 minutes Charles Felter [facility] [place] Start: 02-01-2021 Office outpatient visit 15 minutes Maribeth Vuong [facility] [place] Start: 01-08-2021 Office outpatient visit 25 minutes Charles Felter [facility] [place] Start: 06-09-2018 End: 06-10-2018 Patient encounter procedure PHI RENE [facility] Start: 04-01-2018 End: 04-01-2018 Emergency department patient visit Lashay Li Facility:[facility] Procedures Date Procedure Procedure Detail Performing Clinician Start: 06-03-2023 Plain X-ray of left hand DO Maribeth Vuong Work Phone: Start: 09-26-2022 Colonoscopy DO Maribeth Vuong Work Phone: Start: 07-15-2022 Diagnostic radiograp hy of abdomen DO Maribeth Vuong Work Phone: Plan of Treatment Date Care Activity Detail Author Start: 09-26-2022 [facility] Patient Education Hemorrhoids (DC) [facility] Work Phone: Immunizations Immunization Date Immunization Notes Care Provider Fa cility 12-07-2020 COVID-19 Vaccine Corey - Documentation Purposes Only Charles Solares Other [facility] 03-25-2019 Depo-Medrol 80 mg Charles Morales debbie Other [facility] Other 12-11-2017 Kenalog -40 mg Charles Davidkhushboo Other [employer] [facility] [employer] Other Payers Date Payer Category Payer Unknown 2022 Self-pay [id number] 1980 Unknown [id number] 2.16.84 [id number] 1979 Unknown [id number] 2.16.84 [id number] 1979 Unknown [id number] 2.16.84 [id number] 1979 Unknown [id number] .16.84 [id number] 1979 Unknown [id number] 2.16.84 [id number] 1979 Unknown [id number] 2.16.84 [id number] 1979 Unknown [id number] .16.84 0.1.516341.3.579.2.593 1979 Unknown [id number] 2.16.84 0.1.982569.3.579.2.593 1979 Unknown [id number] 2.16.84 0.1.139120.3.579.2.593 1979 Unknown [id number] 2.16.84 0.1.388191.3.579.2.593 1979 Unknown [id number] 2.16.84 0.1.924425.3.579.2.593 1979 Unknown [id number] 2.16.84 0.1.271523.3.579.2.593 1979 Unknown [id number] 2.16.84 0.1.872073.3.579.2.593 1979 Unknown [id number] 2.16.84 0.1.005191.3.579.2.593 1979 Unknown [id number] 2.16.84 0.1.131536.3.579.2.593 1979 Unknown [id number] 2.16.84 0.1.074834.3.579.2.593 1979 Unknown [id number] 2.16.84 0.1.357403.3.579.2.593 1979 Unknown [id number] 2.16. 840.1.019922.3.579.2.196 1979 Unknown [id number] 2.16. 840.1.978309.3.579.2.196 1960 Medicaid [id number] 1959 Unknown [id number] 1959 Unknown [id number] Blue [employer] Blue Shield [id number] Unknown MMO [id number] Unknown [id number] 2.16.8 40.1.440267.3.579.2.531 Unknown [id number] 2.16.8 40.1.919973.3.579.2.531 Unknown [id number] 2.16.8 40.1.392328.3.579.2.531 Unknown [id number] 2.16.8 40.1.973747.3.579.2.531 Social History Date Type Detail Facility Unknown if ever smoked [facility] [employer] Other Sex Assigned At Sex Assigned At Bir th [facility] [employer] Other Start: 04-13-2019 Tobacco smoking status NHIS Smoker (finding) [facility] Start: 1980 Sex Assigned At Male F [facility] Start: 09-26-2022 Tobacco smoking status [facility] Current some day smoker [facility] Goals Date Patient Goal Desired Activity /State Clinical Notes 01-08-2021 to 03-13-2023 Note Date & Type Note Facility 03-13-2023 Evaluation note Encounter Date Diagnosis Assessment Notes Mar, Primary osteoarthritis of both first carpometacarpal joints (ICD-10 - M18.0) [facility] [employer] Other 11-01-2023 Evaluation note* Encounter Date Diagnosis Assessment Notes Treatment Notes Treatment Clinical Notes Feb, Primary hypertension (ICD-10 - I10) [facility] [employer] Other 10-13-2023 Evaluation note* Encounter Date Diagnosis [...] Jan, Medication monitoring encounter (ICD-10 - Z51.81) [facility] Other 09-13-2023 Evaluation note* Encounter Date Diagnosis Assessment Notes Treatment Notes Treatment Clinical Notes Dec, Primary osteoarthrit is of first carpometacarpal joint of left hand (ICD-10 - M18.12) [facility] Other 09-07-2023 Evaluation note* Encounter Date Diagnosis [...] he has any issues with the medicine. [facility]* Encounter Date Diagnosis Assessment Notes Treatment Notes Treatment Clinical Notes Sep, Primary osteoarthrit is of both first carpometacarpal joints (ICD-10 - M18.0) [facility] Other 04-19-2023 Evaluation note* Encounter Date Diagnosis [...] colonoscopy to rule out luminal etiologies made [facility] Other 04-18-2023 NoteCONSULTATION CONSULTATION DATE: 07/23/2022 TO: [...] our patients to inform us about any motz-stx-bozvmod medications or herbal remedies/nutritional supplements/alternative remedies. 2. [...] treatment options with their primary care provider.[facility] [id number] Evaluation note * Encounter Date Diagnosis Assessment Notes Treatment Notes Treatment Clinical Notes Jul, Generalized abdominal pain (ICD-10 - R10.84) [facility] Other 04-10-2023 Evaluation note* Encounter Date Diagnosis [...] Jul, Medication monitoring encounter (ICD-10 - Z51.81) [facility] Other 04-10-2023 Evaluation note* Encounter Date Diagnosis Assessment Notes Treatment Notes Treatment Clinical Notes Jul, Slow transit constipation (ICD-10 - K59.01) [facility] Other 03-28-2023 NoteCONSULTATION CONSULTATION DATE: 07/02/2022 TO: [...] as well as his lumbar spine films.[facility] [id number] Note CONSULTATION CONSULTATION DATE: 06/13/2022 HISTORY OF [...] relief. He has been seen both at [facility] and [facility] in the past, and received [...] under the care of Dr. Joshua in [place]. He is unwilling to try Lyrica due [...] Patient is in agreement to this plan.[facility] [id number] NoteCONSULTATION CONSULTATION DATE: 03/14/2022 HISTORY OF PRESENT [...] in three months' time, unless otherwise indicated.[facility] [id number] NoteCONSULTATION CONSULTATION DATE: 02/07/2022 HISTORY OF PRESENT [...] followed up in the office post procedure.[facility] [id number] Evaluation note* Encounter Date Diagnosis Assessment Notes [...] Dec, Prostate cancer screening (ICD-10 - Z12.5) [facility] Other 09-08-2022 NoteCONSULTATION CONSULTATION DATE: 12/13/2021 HISTORY [...] of care and all questions were answered.[facility] [id number] Note CONSULTATION PROCEDURE DATE: 10/31/2021 PREOPERATIVE DIAGNOSIS: [...] will be followed up in the office.[facility] [id number] Note CONSULTATION CONSULTATION DATE: 10/03/2021 This is [...] and will be seen in the clinic. [facility] Signed and Approved by: BRIT SCHUSTER . 10/11/2021 16:28:00[facility]04-04-2022 Evaluation note* Encounter Date Diagnosis Assessment [...] in this. Patient notes prior issues with [facility] billing department and states he is uncomfortable [...] note writ ten by Km Cervantes MA, Proc Tech. Edited and approved by Dr. Charles Solares MD. [facility] Other 03-18-2022 Evaluation note* Encounter Date Diagnosis [...] and he is to continue with it. [facility] Other 03-02-2022 Evaluation note* Encounter Date Diagnosis [...] note writ ten by Km Cervantes CMA, Proc Tech. Edited and approved by Dr. Charles Solares MD. [facility] Other 02-15-2022 Evaluation note* Encounter Date Diagnosis Assessment Notes Treatment Notes Treatment Clinical Notes May, Cigarette nicotine dependence without complication (ICD-10 - F17.210) [facility] Other 02-14-2022 Evaluation note* Encounter Date Diagnosis Assessment Notes Treatment Notes Treatment Clinical Notes May, Other spondylosis with radiculopathy, lumbar region (ICD-10 - M47.26) [facility] Other 02-01-2022 Evaluation note* Encounter Date Diagnosis [...] was refilled today. Saliva sample performed through [employer] lab today, will await confirmatory results. Opiod contract updated at this time. May, Other chronic pain (ICD-10 - G89.29) May, Other Above note writ ten by Sonya Dawson LPN, Proc Tech. Edited and approved by Dr. Charles Solares MD. [facility] Other 01-06-2022 Evaluation note* Encounter Date Diagnosis [...] note writ ten by Km Cervantes CMA, Proc Tech. Edited and approved by Dr. Charles Solares MD. [facility] Other 12-02-2021 Evaluation note* Encounter Date Diagnosis [...] Above note written by Sonya Dawson LPN, Proc Tech. Edited and approved by Dr. Charles Solares MD. [facility] Other 11-08-2021 Evaluation note* Encounter Date Diagnosis [...] Patient voiced understanding agrees with this plan. [facility] Other 11-01-2021 Evaluation note* Encounter Date Diagnosis [...] note writ ten by Donita Henson CMA, Proc Tech. Edited and approved by Dr. Charles Solares MD. [facility] Other 10-28-2021 Evaluation note* Encounter Date Diagnosis [...] message to Dr. Solares passing this along. [facility] Other 10-04-2021 Evaluation note* Encounter Date Diagnosis [...] educated regarding the risks and benefits of skilled nursing opioid use. He understands the associated risks with this medication and agrees that it provides reasonable benefit in regards to his pain control and level of function. Oxycodone Acetaminophen was refilled today. Jan, Other chronic pain (ICD-10 - G89.29) [employer] Other Evaluation noteNo InformationNortCancer Treatment Centers of [facility] [employer] Other Evaluation noteNo assessment information available [facility] Work Phone: Evaluation note* Diagnosis Onset Date Resolution Status Osteoarthritis of carpometac arpal joint of left thumb acute Primary osteoarthritis, left hand acute BPH (benign prostatic hyperplasia) chronic Hemorrhoid chronic Other spondylosis with radiculopathy, lumbar region chronic Blood present in stool nonea ctive [facility] Work Phone: History and physical note Author Nash Cardenas [facility] September 26, 2022 9:39am Note Date/Time September 26, 2022 9:39 am [facility] [address] [place] [address] Gastroenterology H&P Signed Patient: Neal Irene MR#: [id number] : 1980 Acct:[id number] Age/Sex: 41 / M Adm Date: 3 Loc: Room: Type: [facility] Attending Dr: Nash Cardenas MD Copies to: MD Maribeth Mcdermott, DO~ Date of Service: 09/26/2022 HISTORY & [...] Cardenas MD Documented By: Nash Cardenas MD 09/26/22937 Signed By: <Electronically signed by Nash Cardenas MD> 09/26/22 0573 [facility] Work Phone: History general Narrative - Reported* Type Description Date Medical History Hx spinal fusion Medical History Lumbar radiculopathy Medical History Trigger point Surgical History L5 S1 fusion 2014 Surgical History Left lower leg surgery (multipl e fractures) Surgical History foreign body excision right mid dle finger Hospitalization History pneumonia as [facility] Other [facility] general Narrative - Reported* Type Description Date Medical History Hx spinal fusion Medical History Lumbar radiculopathy Medical History Trigger point Surgical History L5 S1 fusion 2014 Surgical History Left lower leg surgery (multipl e fractures) Surgical History foreign body excision right mid dle finger Surgical History lumbar facet nerve b lock injection - Dr. Saldivar in [facility] 11/2022 Hospitalization History pneumonia as [facility] Other [facility]iss[facility] general Narrative - Reported* Type Description Date Medical History Hx spinal fusion Medical History Lumbar radiculopathy Medical History Trigger point Surgical History L5 S1 fusion 2014 Surgical History Left lower leg surgery (multipl e fractures) Surgical History foreign body excision right mid dle finger Surgical History lumbar facet nerve b lock injection - Dr. Saldivar in [facility] 11/2022 Surgical History R side nerve ablation 01/2023 Hospitalization History pneumonia as [facility] Other Hospital Discharge instructions Additional Instructions DISCHARGE [...] years. -Follow up with PCP. -Office number [phone].[facility] Work Phone: reason for visit NarrativePatient here at the request of Dr. Vuong for evaluation & treatment of abdominal pain, change in bowel habits, weight loss, rectal bleeding.[facility] Other reason for visit NarrativeProcedure appt and DNR-A signCharl[facility] [employer] Other Summary Purpose Family History No Family History Records Found Relationship Condition Age at Onset Recorded Date/T lorri brother Gout Unknown Relationship Condition Age at Onset Recorded Date/T lorri brother Gout Unknown Diabetes mellitus Unknown Relationship Condition Age at Onset Recorded Date/T lorri brother Gout Unknown Diabetes mellitus Unknown brother Diabetes mellitus Unknown Gout Unknown Advance Directives No Advanced Directives Records Found Advance Directive Response Recorded Date/ Time Advance Directives No December 4:24pm Reason for Referral [facility], steroid injections not providing long lasting benefit Diagnosis 1 Primary osteoarthrit is of both first carpometacarpal joints (M18.0) Referral Organization [facility] Family Nisha Santos Referring Provider First Name Maribeth Referring Provider Last Name Carolann Referring Provider Specialty Family Prac patito Referred Organization [facility] Referred Address [address] [place],[address] Referred Provider Specialty ORTHOPEDIC S URGEON Referral Priority Routine Reason * Waiting for appt CT and KUB normal, generalized pain of unclear etiology Diagnosis 1 Generalized abdomina l pain (R10.84) Referral Organization [facility] Family Nisha Santos Referring Provider First Name Maribeth Referring Provider Last Name Carolann Referring Provider Specialty Family Prac patito Referred Organization [facility] Gastroenterolo gy Referred Provider Dwayne Salas Referred Address [address],[facility] [facility] [address] ,[place], [place],[address] Referred Provider Specialty Gastroentero logy Referral Priority Routine General Notes Rebeca Vivar Rhona 02/2023 03:53:02 PM >referral received and sent p2p successful per log Reason * FU 06/29 2nd opi nion to see if there is anything more that can be done for his chronic back pain, Dr. Finneagn Diagnosis 1 Lumbar disc displace ment without myelopathy (M51.26) Diagnosis 2 Other spondylosis wi th radiculopathy, lumbar region (M47.26) Diagnosis 3 Lumbar degenerative disc disease (M51.36) Diagnosis 4 Chronic, continuous use of opioids (F11.90) Referral Organization [facility] Family Camdencristóbal Santos Referring Provider First Name Maribeth Referring Provider Last Name Carolann Referring Provider Specialty Family Prac patito Referred Organization [facility] Referred Address [address],[place], [place],[address] Referred Provider Specialty Pain Medicin e Referral Priority Routine General Notes Rebeca Vivar Rhona 11:08:53 AM >referral received and faxed Clinical Notes P- [phone] Chief Complaint and Reason for Visit Chief [...] and content) DATE CREATED AUTHOR 05/25/2018 Andrae Myers [facility] DATE CREATED AUTHOR AUTHOR'S ORGANIZ ATION 06/11/2018 [facility] DATE CREATED AUTHOR AUTHOR'S ORGANIZ ATION 09/15/2022 [facility] DATE CREATED AUTHOR AUTHOR'S ORGANIZ ATION 10/04/2022 [facility] DATE CREATED AUTHOR AUTHOR'S ORGANIZ ATION 09/05/2023 [facility] REASON FOR VISIT (unrecogniz ed section and content) 1 MOback pain getting worse, pain management not working4 WK RECHECKDISCUSS DISABILITY OPTIONSLab results1 MO1 MONTH RECHECKCHANTIX1 month Follow upscript requestpaperwork1 MONTH FOLLOW UPCHANTIX refill/discuss back concerns1 MONTHNo InformationNo InformationPROCEDURE NOTES1 year Follow up/ AWVAbdominal Pain/ incontinencenew medication.ReferralPain ManagementB/L thumb steroid inj./ sign DNR-AORDERS PER DR Casanovaated bpelevated BP at PM in [place], no sxinjection L thumb1 year Follow upLosartan/HCTZsteroid [...] 2023 End: July 21, 2023 Team Status: Inactive Member Role Status Dates Maribeth Vuong DO Primary Care Provider, Attending Provider Active Team Status: Inactive Member Role Status Dates Maribeth Teri Vuong , DO Primary Care Provider Active [...] BE BASED ON THE PRIMARY CLINICAL RECORDS. [facility] [employer] provides no warranty or guarantee of the accuracy or completeness of information in this document.
[2023-09-09 07:16] VITALS: BP 126/79; PULSE 87; TEMP 36.2; O2SAT 98
[2023-09-09] MEDS: 0.9 % SODIUM CHLORIDE 500 ML IV (07:36)
[2023-09-09] MEDS: BUPIVACAINE HCL 0.25% PF 25 MG/10 ML VIAL INJ (08:18)
[2023-09-09] MEDS: LIDOCAINE HCL 2% 400 MG/20 ML MDV 6 ML INJ (08:18)
[2023-09-09] MEDS: METHYLPREDNISOLONE ACETATE 40 MG/ML VIAL INJ (08:18)
[2023-09-09 08:26] VITALS: BP 124/96; PULSE 83; TEMP 36.9; O2SAT 96
[2023-09-09 08:36] VITALS: BP 153/94; PULSE 83; TEMP 36.9; O2SAT 95
--- NOTE | 2023-09-09 09:58 | W.PM.PROCNOT ---
Date of procedure: 09/09/23 Pre-op diagnosis: Lumbar spondylosis Post-op diagnosis: same as pre-op Procedure: Left thoracic 4/5 & 5/6 Radiofrequency ablation Under fluoroscopic guidance Rhizotomy was created using radio frequency ablation at 80?C for 90 seconds 1 to 2 lesions created at each site. Post lesioning injection of 2 mL each of 0.25% Marcaine and 2% lidocaine with Depo-Medrol 40mg. 0.5 to 1 mL injected at each site IV in place yes If Intravenous fluids: NS at KVO Anesthesia local 2% lidocaine for Anesthesia Other: MAC Timeout process compliant After informed consent obtained.Patient brought to the procedure room placed in the prone position skin overlying the area was prepped and draped in a sterile fashion using betadine. 25 gauge needle was used to create a skin wheal over each of the targeted areas utilizing 2% lidocaine. A rhizotomy needle with a 10 mm active tip was inserted over each of the anesthetized areas and directed towards each of the medial branches accomplished under fluoroscopic guidance. after encountering the same we had positive sensory stimulation, negative motor stimulation was noted. lesions were then created. Post lesioning, steroid solution was injected needles removed. Patient was transferred to recovery room in stable condition to be discharged home after meeting criteria. Anesthesia: MAC Surgeon: Mindy Manning Condition: stable Disposition: PACU
== END 2023-09-09 08:47 | disposition home or self-care (01) ==
PROVIDERS: Visit Provider Anesthesiology Pain Medicine
PROC: (CPT 1992; principal; 2023-09-09 08:10)
DX: M47.816 Spondylosis without myelopathy or radiculopathy, lumbar region (principal)
CPT/HCPCS: 64633; 64634; J1010; J2704

== ENCOUNTER 2023-10-29 08:00 | Outpatient (OUT) | payer OTHER, SELFPAY ==
--- OUTSIDE RECORDS SUMMARY | 2023-10-29 08:15 | XMS_ITS | CCD ---
Author Organization [facility] CliniSypr Care Team Providers Care Deputy Fire Marshal Name Role Phone Lashay Li Admitting Unavailable [...] JOEL ., DR JESSICA Huerta Consulting Unavailable JOLE ., DR JESSICA Huerta Attending Unavailable CAROLANN, [...] Maribeth N Primary Care Unavailable Nash Cardenas J Admitting Unavailable Nash Cardenas Attending Unavailable Carolann, Maribeth N Primary Care Unavailable Carolann, DO Maribeth N Primary Care Provider [phone] MD Nisha Villanueva Attending Provider St Keri PLEITEZ, Diaz Mercer Attending Unavailabl e Carolann DO, Maribeth Higgins [facility] Harmeet Valdovinos MD, Diaz Mercer Attending Unavailabl e Carolann DO, Maribeth Higgins Primary [facility] Diaz Armenta MD Attending Unavailabl e Carolann DO, Maribeth Higgins [facility] Diaz Armenta MD Admitting Unavailabl e Homar Rodgers Jr Consulting Unavailabl e Qamar Recio PA-C Consulting Unavai labquique Allergies Allergy Classification Reported Allergen(s) Allergy Type Date of Onset Reaction(s) Facility (18 sources) gabapentin; Translations: [gabapentin] Drug Allergy 3 dizziness, sleepy, Drowsy, Drowsy, dizziness, sleepy [facility] (1 source) gabapentin Drug Allergy [facility] Repository (12 sources) zonisamide; Translations: [zonisamide] Drug Allergy 3 diarrhea [facility] (1 source) gabapentin Drug Allergy 3 [facility] Repository (1 source) zonisamide Drug Allergy [address] [place] [address] Repository Medications Current Medications Medication Drug Class(es) [...] 17, 2016 12:00am September 26, 2022 8:34am Acetaminophen Extra Strength 500 MG (11 sources) take 1 tablet by mouth every six hours as needed Acetaminophen Extra Strength 500 MG 1 tablet as needed Orally every 6 hrs Active calcium carbonate 1500 mg / cholecalciferol 0.01 mg oral tablet (3 sources) Vitamin D Start: 09-27-19 take 1 [...] as needed for 90 days Active Diclofenac (9 sources) Nonsteroidal Anti-inflammatory Drug Start: 06-03-2023 Diclofenac Sodium (Voltaren Arthritis Pain) 1 % gel Active 2 GM TOPICAL Four times daily 100 June 03, 2023 1:00am take 1 tablet [...] Jun, Active take 1 capsule by mo [facility] every twenty-four hours Cymbalta 60 MG 1 capsule Orally Once a day for 90 days Active Handicap placards as directed (18 sources) Start: 2018 Handicap placards as directed as directed as directed as directed Dec, Active hydroCHLOROthiazide 12.5 mg / losartan potassium 50 mg oral tablet (7 sources) Thiazide Diuretic, Angiotensin 2 Receptor Avery Start: 07-17-2023 take 1 tablet by mouth once daily Losartan-[place] chlorothiazide Active 1 TAB PO Daily July [...] prn for 30 days Jul, Active Magnesium (3 sources) Start: 09-26-2022 take 100 mg by [...] as needed for 30 day(s) May, Active ondansetron 8 mg oral tablet (8 sources) Serotonin-3 Receptor Antagonist Start: 05-29-2023 take 8 mg by mouth once daily Ondansetron Hcl Active 8 MG PO Daily May 29, 2023 1:00am take 1 tablet by elizabeth th once daily as needed Zofran 8 MG 1 tablet as needed Orally Once a day Active polyethylene glycol 3350 [id number] mg / potassium chloride 2970 mg / sodium bicarbonate 6740 mg / sodium chloride 5860 mg / sodium sulfate 71734 mg powder for oral solution (6 sources) [...] Feb, Active pregabalin 50 mg oral capsule (8 sources) Start: 07-21-2023 take 50 mg by mouth twice daily Pregabalin Active 50 MG PO Twice daily July 21, 2023 12:00am Start: 12-17-2016 End: 01-29-2019 take 2 capsules by mouth twice daily Pregabalin (Lyrica) 75 mg capsule Discontinued 2 CAP PO Twice daily December 17, 2016 12:00am January 29, 2019 7:38am sennosides, custodial 8.6 mg oral tablet (16 sources) Start: 02-01-2021 take 2 tablets by mouth once daily at bedtime as needed Senna Lax 8.6 MG 2 tablets at bedtime as needed Orally Once a day for 30 day(s) Jan, Active sildenafil 50 mg oral tablet (5 sources) Phosphodiesterase 5 Inhibitor Start: 07-17-2023 take [...] / HYDROcodone bitartrate 5 mg oral tablet (6 sources) Opioid Agonist Start: 12-17-2016 End: 09-26-2022 take 1 tablet by mouth twice daily Hydrocodone-Acetami nophen Discontinued 1 TAB PO Twice daily December 17, 2016 12:00am September 26, 2022 8:34am acetaminophen 325 mg / oxyCODONE hydrochloride 5 mg oral tablet (20 sources) Opioid Agonist Start: 07-21-2023 End: 09-15-2023 take 1 tablet by mouth twice daily Oxycodone-Acetamino phen Discontinued 1 TAB PO Twice daily July 21, 2023 September 15, 2023 10:25am Start: 09-26-2022 End: 06-03-2023 take 1 tablet [...] daily as needed for 7 days Active Cannabis (6 sources) Start: 01-21-2019 End: 09-26-2022 Cannabis Discontinued 2018 12:00am September 26, 2022 8:34am Start: 01-21-2019 Cannabis Activ e January 21, 2019 12:00am celecoxib 200 mg oral capsule (6 sources) Nonsteroidal Anti-inflammatory Drug Start: 12-17-2016 End: 09-26-2022 take 1 capsule by mouth twice daily Celecoxib Discontinued 1 CAP PO Twice daily December 17, 2016 12:00am September 26, 2022 8:34am lidocaine 0.04 mg/mg medicated patch (2 sources) Antiarrhythmic, Amide Local Anesthetic Start: 06-03-2023 End: [...] 03-25-2019 Depo-Medrol 80 mg Mar, 40 mg niacin 500 mg oral tablet (3 sources) Nicotinic Acid Start: 09-26-2022 End: 09-15-2023 take 500 mg by mouth once daily Niacin Discontinued 500 MG PO Daily September 26, 2022 12:00am September 15, 2023 10:25am 12 hr orphenadrine citrate 100 mg extended release oral tablet (6 sources) Muscle Relaxant Start: 01-21-2019 End: 09-26-2022 take 100 mg by mouth twice daily Orphenadrine Citrate Discontinued 100 MG PO Twice daily January 21, 2019 12:00am September 26, 2022 8:35am tiZANidine 4 mg oral tablet (6 sources) Central alpha-2 Adrenergic Agonist Start: 07-01-2017 [...] Translations: [Unspecified abdominal pain] Onset: 07-15-2022 Episodic Complications of surgical procedures or medical care (2 sources) Pseudarthrosis after fusion or arthrodesis; Translations: [Pseudarthrosis after fusion or arthrodesis] Onset: 09-30-2023 Episodic Essential hypertension (8 sources) Essential hypertension; Translations: [Essential (primary) hypertension] Chronic Gastrointestinal hemorrhage (3 sources) Hemorrhage of anus and rectum; Translations: [Melena] Episodic Genitourinary symptoms and ill-defined conditions (1 source) Unspecified urinary incontinence; Translations: [UNSPECIFIED URINARY INCONTINENCE] Onset: 06-29-2022 Chronic Genitourinary symptoms and ill-defined conditions (1 source) Unspecified abnormal findings in urine Episodic Hemorrhoids (4 sources) Hemorrhoids; Translations: [Unspecified hemorrhoids] 07-21-2023 Episodic Hyperplasia of prostate (4 sources) Benign prostatic hyperplasia; Translations: [Benign prostatic hyperplasia without lower urinary tract symptoms] 07-21-2023 Chronic Osteoarthritis (20 sources) Localized, primary osteoarthritis of the wrist; Translations: [Primary osteoarthritis, 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 Other aftercare (4 sources) Encounter for therapeutic drug level monitoring; Translations: [Encounter for therapeutic drug level monitoring] Onset: 07-12-2022 Episodic Other aftercare (1 source) Other predatory animal exterminator (current) drug therapy; Translations: [OTH [facility] CURRENT DRUG THERAPY] Onset: 07-17-2022 Episodic Other connective tissue disease (2 sources) Hand pain; Translations: [Pain in left hand] [...] Test Name Value Interpretation Reference Range Facility .eGFRon 10-02-2023 GFR/1.73 sq M.predicted MDRD (S/P/Bld) [Vol rate/Area] mL/min/{1.73_m2} Normal >=60 [facility] Comment on above: Result Comment: [facility] have implemented the eGFR calculation approach that does not have a coefficient for race and that conforms to the NKF-ASN Task Force Recommendations. Stages of Chronic Kidney Disease GFR Stage 3a Mild to moderate loss of kidney function 59 to 45 Stage 3b Moderate to severe loss of kidney function 44 to 33 Stage 4 Severe loss of kidney function 29 to 15 Stage 5 Kidney failure Less than 15 GFR calculated using the CKD-Epi Creatinine Equation (2020): eGFR = 142 X min(SCr/?, 1)? X max(SCr /?, 1)-1.200 X 0.9938Age X 1.012 [if female] Abbreviations/Units: eGFR (estimated glomerular filtration rate) = mL/min/1.73 m2 SCr (standardized serum creatinine) = mg/dL ? = 0.7 (females) or 0.9 (males) ? = -0.241 (females) or -0.302 (males) min = indicates the minimum of SCr/? or 1 max = indicates the maximum of SCr/? or 1 Age = years Performed By: #### C [id number] #### [address] [address] Basic Metabolic Profileon Anion gap [Moles/Vol] 5 mmol/L Normal 4-12 [facility] Comment on above: Performed By: #### C [id number] #### [address] [address] Calcium [Mass/Vol] 8.2 mg/dL Low 8.5-10.3 [facility] Comment on above: Performed By: #### C [id number] #### [address] [address] Chloride [Moles/Vol] 106 mmol/L Normal 98-110 [facility] Comment on above: Performed By: #### C [id number] #### [address] [address] CO2 [Moles/Vol] 27 mmol/L Normal 22-32 [facility] Comment on above: Performed By: #### C [id number] #### [address] [address] Creatinine [Mass/Vol] 0.75 mg/dL Normal 0.61-1.24 [facility] Comment on above: Performed By: #### C [id number] #### [address] [address] Glucose [Mass/Vol] 88 mg/dL Normal 70-99 [facility] Comment on above: Performed By: #### C [id number] #### [address] [address] Potassium [Moles/Vol] 3.9 mmol/L Normal 3.4-4.8 [facility] Comment on above: Performed By: #### C [id number] #### [address] [address] Sodium [Moles/Vol] 138 mmol/L Normal 133-142 [facility] Comment on above: Performed By: #### C [id number] #### [address] [address] Urea nitrogen [Mass/Vol] 13 mg/dL Normal 8-26 [facility] Comment on above: Performed By: #### C [id number] #### [address] [address] Urea nitrogen/Creatinine [Mass ratio] 17.3 mg/mg Normal 10.0-20.0 [facility] Comment on above: Performed By: #### C [id number] #### [address] [address] CBC w/ Diffon 10-02-2023 Erythrocyte distribution width (RBC) [Ratio] 14.4 % Normal 11.6-14.8 [facility] Comment on above: Performed By: #### E GFR #### [address] [address] Hematocrit (Bld) [Volume fraction] 37.0 % Low 41.0-53.0 [facility] Comment on above: Performed By: #### E GFR #### [address] [address] Hemoglobin (Bld) [Mass/Vol] 12.1 g/dL Low 13.5-17.5 [facility] Comment on above: Performed By: #### E GFR #### [address] [address] MCH (RBC) [Entitic mass] 30.2 pg Normal 27.0-35.0 [facility] Comment on above: Performed By: #### E GFR #### [address] [address] MCHC 32.6 % Normal 31.0-37.0 [facility] Comment on above: Performed By: #### E GFR #### [place] [id number] MCV (RBC) [Entitic vol] 92.6 fL Normal 80.0-100.0 [facility] Comment on above: Performed By: #### E GFR #### [place] [id number] Platelet 174 x10*3/mcL Normal 150-450 [facility] Comment on above: Performed By: #### E GFR #### [address] [address] Platelet mean volume (Bld) [Entitic vol] 10.7 fL High 6.7-10.6 [facility] Comment on above: Performed By: #### E GFR #### [address] [address] RBC 4.00 x10*6/mcL Low 4.30-5.80 [facility] Comment on above: Performed By: #### E GFR #### [place] [id number] WBC 11.9 x10*3/mcL High 4.5-11.0 [facility] Comment on above: Performed By: #### E GFR #### [address] [address] Diff Autoon 10-02-2023 Baso Absolute 0.0 x10*3/mcL Normal 0.0-0.2 [facility] Comment on above: Performed By: #### C [id number] #### [address] [address] Basophils/100 WBC (Bld) 0.2 % Normal 0.0-1.2 [facility] Comment on above: Performed By: #### C [id number] #### [address] [address] Eos Absolute 0.2 x10*3/mcL Normal 0.0-0.4 [facility] Comment on above: Performed By: #### C [id number] #### [address] [address] Eosinophils/100 WBC (Bld) 1.5 % Normal 0.0-6.1 [facility] Comment on above: Performed By: #### C [id number] #### [address] [address] Lymph Absolute 5.1 x10*3/mcL High 1.0-4.8 [facility] Comment on above: Performed By: #### C [id number] #### [address] [address] Lymphocytes/100 WBC (Bld) 42.9 % High 27.2-40.8 [facility] Comment on above: Performed By: #### C [id number] #### [address] [address] Gaines Absolute 0.9 x10*3/mcL Normal 0.3-1.1 [facility] Comment on above: Performed By: #### C [id number] #### [address] [address] Monocytes/100 WBC (Bld) 7.1 % Normal 4.7-13.9 [facility] Comment on above: Performed By: #### C [id number] #### [address] [address] Neutro Absolute 5.7 x10*3/mcL Normal 1.8-7.7 [facility] Comment on above: Performed By: #### C [id number] #### [address] [address] Neutro Auto 48.3 % Normal 47.2-70.8 [facility] Comment on above: Performed By: #### C [id number] #### [address] [address] Inpatient Clinical Summaryon 10-02-2023 Inpatient Clinical Summary [address] [address] [address] [address] Clinical Summary Person Information Name: Neal Parker Age: 42 Years : 1980 Sex: Male PCP: Maribeth Vuong DO Marital Status: Phone: PCP: Race: White Ethnicity: Not or Language: Surinamese Visit Id: Visit Reason: Speciality: Acuity: Enc Type: Inpatient Med Service: Surgery Arrival: 09/30/2023 08:56:12 Discharge: Dispo Type: Address: [address] [place] [id number] Diagnosis: Discharged To: Home Treatments: Devices/Equipment: Professional Skilled Services: Special Services and Community Resources: Mode of Discharge Transportation: Discharge Orders Allergies gabapentin (Dizziness) (Nausea) (Fatigue) zonisamide (Nausea and vomiting) (Diarrhea) Functional Status: Sensory Deficits: None History of Falls: None Mobility Assistance Prior to Admission: ADLs: Minimal assistance Gait: Steady Ambulation Assist: Assistive Device: Gait belt, Walker Special Orthopedic Devices: Brace Current Level of Assistance for Self-Care/Mobility: Cognitive Status: Orientation: Orientation Assessment Oriented x 4 Level of Consciousness: Alert Characteristics of Speech: Clear Aspiration Risk: None Affect/Behavior: Appropriate, Calm, Cooperative Laboratory or Other Results This Visit (last charted value for your 09/30/2023 visit) Hematology 10/02/2023 4:58 AM WBC: 11.9 x10 RBC: 4.00 x10 Neutro Auto: 48.3 % -- Normal range between ( 47.2 and 70.8 ) Lymph Auto: 42.9 % -- Normal range between ( 27.2 and 40.8 ) Gaines Auto: 7.1 % -- Normal range between ( 4.7 and 13.9 ) Eos Auto: 1.5 % -- Normal range between ( 0.0 and 6.1 ) Basophil Auto: 0.2 % -- Normal range between ( 0.0 and 1.2 ) Baso Absolute: 0.0 x10 MCV: 92.6 fL -- Normal range between ( 80.0 and 100.0 ) MCHC: 32.6 % -- Normal range between ( 31.0 and 37.0 ) Lymph Absolute: 5.1 x10 Hct: 37.0 % -- Normal range between ( 41.0 and 53.0 ) Gaines Absolute: 0.9 x10 MCH: 30.2 pg -- Normal range between ( 27.0 and 35.0 ) Neutro Absolute: 5.7 x10 Hgb: 12.1 g/dL -- Normal range between ( 13.5 and 17.5 ) Mean Platelet Volume: 10.7 fL -- Normal range between ( 6.7 and 10.6 ) Platelet: 174 x10 Eos Absolute: 0.2 x10 RDW: 14.4 % -- Normal range between ( 11.6 and 14.8 ) Chemistry 10/02/2023 4:58 AM Creatinine Lvl: 0.75 mg/dL -- Normal range between ( 0.61 and 1.24 ) BUN: 13 mg/dL -- Normal range between ( 8 and 26 ) Glucose Lvl: 88 mg/dL -- Normal range between ( 70 and 99 ) Potassium Lvl: 3.9 mmol/L -- Normal range between ( 3.4 and 4.8 ) Sodium Lvl: 138 mmol/L -- Normal range between ( 133 and 142 ) Calcium Lvl: 8.2 mg/dL -- Normal range between ( 8.5 and 10.3 ) Chloride: 106 mmol/L -- Normal range between ( 98 and 110 ) CO2: 27 mmol/L -- Normal range between ( 22 and 32 ) Anion Gap: 5 -- Normal range between ( 4 and 12 ) Estimated GFR: >60 mL/min/1.73m? BUN Crea Ratio: 17.3 -- Normal range between ( 10.0 and 20.0 ) Blood Bank 09/10/2023 9:19 AM ABO/Rh: A POS Antibody Screen: Negative [facility] Diagnostic Radiology 09/30/2023 11:51 AM XR Spine Lumbosacral 1 View in OR: XR Spine Lumbosacral 1 View in OR Measurements: Height: Weight: Blood Pressure: 158 mmHg / BMI: Respiratory: Respirations: Unlabored Respiratory Symptoms: None Cardiovascular: Heart Sounds: Heart Rhythm: Regular Gastrointestinal: GI Symptoms: Bowel Sounds: Present Vital Signs: Temp Axillary: Temp Temporal Artery: 36.1 degC Temp Oral: 36.6 degC Temp Rectal: Apical Heart Rate: Peripheral Pulse Rate: 98 bpm Heart Rate: 83 bpm Respiratory Rate: 18 br/min Diet Diet: Feeding Tolerance: Appetite: Good Amish Assessment: 21 Procedures Radio-frequency ablation system Colonoscopy (2023) Fusion of lumbar spine (03/15/2015) ORIF - Open reduction and internal fixation of fracture (2002) Ambulatory surgery (2002) Immunizations No Immunizations Documented This Visit HERE ARE THE MEDICATION CHANGES THAT OCCURRED DURING YOUR HOSPITAL STAY New Medications Other Medications oxyCODONE-acetaminoph en (Percocet 5/325 oral tablet) 1 Tabs Oral (given by mouth) every 6 hours as needed pain. Last Dose: ____ Medications That Have Not Changed Other Medications acetaminophen (Tylenol Extra Strength 500 mg oral tablet) 2 Tabs Oral (given by mouth) every 6 hours as needed as needed for pain. Last Dose: ____ ascorbic acid/chondroitin/gluc elliot/justa (Glucosamine Chondroitin) 2 Capsules Oral (given by mouth) every day. Patient Instructions: Okay to resume one week after surgery Last Dose: ____ calcium-vitamin D (Caltrate 600 + D) 1 Tabs Oral (given by mouth) 2 times a day. Patient Instructions: Okay to r (more content not included)... Normal [facility] .eGFRon 10-01-2023 GFR/1.73 sq M.predicted MDRD (S/P/Bld) [Vol rate/Area] mL/min/{1.73_m2} Normal >=60 [facility] Comment on above: Order Comment: Order added by Discern rule Result Comment: [facility] have implemented the eGFR calculation approach that does not have a coefficient for race and that conforms to the NKF-ASN Task Force Recommendations. Stages of Chronic Kidney Disease GFR Stage 3a Mild to moderate loss of kidney function 59 to 45 Stage 3b Moderate to severe loss of kidney function 44 to 33 Stage 4 Severe loss of kidney function 29 to 15 Stage 5 Kidney failure Less than 15 GFR calculated using the CKD-Epi Creatinine Equation (2020): eGFR = 142 X min(SCr/?, 1)? X max(SCr /?, 1)-1.200 X 0.9938Age X 1.012 [if female] Abbreviations/Units: eGFR (estimated glomerular filtration rate) = mL/min/1.73 m2 SCr (standardized serum creatinine) = mg/dL ? = 0.7 (females) or 0.9 (males) ? = -0.241 (females) or -0.302 (males) min = indicates the minimum of SCr/? or 1 max = indicates the maximum of SCr/? or 1 Age = years Performed By: #### E GFR #### [address] [address] Basic Metabolic Profileon Calcium [Mass/Vol] 8.4 mg/dL Low 8.5-10.3 [facility] Comment on above: Performed By: #### E GFR #### [address] [address] Anion gap [Moles/Vol] 6 mmol/L Normal 4-12 [facility] Comment on above: Performed By: #### E GFR #### [address] [address] Chloride [Moles/Vol] 107 mmol/L Normal 98-110 [facility] Comment on above: Performed By: #### E GFR #### [address] [address] CO2 [Moles/Vol] 26 mmol/L Normal 22-32 [facility] Comment on above: Performed By: #### E GFR #### [address] [address] Creatinine [Mass/Vol] 0.97 mg/dL Normal 0.61-1.24 [facility] Comment on above: Performed By: #### E GFR #### [address] [address] Glucose [Mass/Vol] 119 mg/dL High 70-99 [facility] Comment on above: Performed By: #### E GFR #### [address] [address] Potassium [Moles/Vol] 4.1 mmol/L Normal 3.4-4.8 [facility] Comment on above: Performed By: #### E GFR #### [address] [address] Sodium [Moles/Vol] 139 mmol/L Normal 133-142 [facility] Comment on above: Performed By: #### E GFR #### [address] [address] Urea nitrogen [Mass/Vol] 15 mg/dL Normal 8-26 [facility] Comment on above: Performed By: #### E GFR #### [address] [address] Urea nitrogen/Creatinine [Mass ratio] 15.5 mg/mg Normal 10.0-20.0 [facility] Comment on above: Performed By: #### E GFR #### [address] [address] CBC w/ Diffon 10-01-2023 Erythrocyte distribution width (RBC) [Ratio] 13.9 % Normal 11.6-14.8 [facility] Comment on above: Performed By: #### E GFR #### [address] [address] Hematocrit (Bld) [Volume fraction] 38.3 % Low 41.0-53.0 [facility] Comment on above: Performed By: #### E GFR #### [address] [address] Hemoglobin (Bld) [Mass/Vol] 12.5 g/dL Low 13.5-17.5 [facility] Comment on above: Performed By: #### E GFR #### [place] [id number] MCH (RBC) [Entitic mass] 30.2 pg Normal 27.0-35.0 [facility] Comment on above: Performed By: #### E GFR #### [place] [id number] MCHC 32.7 % Normal 31.0-37.0 [facility] Comment on above: Performed By: #### E GFR #### [place] [id number] MCV (RBC) [Entitic vol] 92.3 fL Normal 80.0-100.0 [facility] Comment on above: Performed By: #### E GFR #### [place] [address] Platelet 175 x10*3/mcL Normal 150-450 [facility] Comment on above: Performed By: #### E GFR #### [place] [id number] Platelet mean volume (Bld) [Entitic vol] 11.3 fL High 6.7-10.6 [facility] Comment on above: Performed By: #### E GFR #### [place] [id number] RBC 4.15 x10*6/mcL Low 4.30-5.80 [facility] Comment on above: Performed By: #### E GFR #### [place] [id number] WBC 15.0 x10*3/mcL High 4.5-11.0 [facility] Comment on above: Performed By: #### E GFR #### [place] [address] Diff Autoon 10-01-2023 Baso Absolute 0.0 x10*3/mcL Normal 0.0-0.2 [facility] Comment on above: Performed By: #### E GFR #### [address] [address] Basophils/100 WBC (Bld) 0.1 % Normal 0.0-1.2 [facility] Comment on above: Performed By: #### E GFR #### [address] [address] Eos Absolute 0.0 x10*3/mcL Normal 0.0-0.4 [facility] Comment on above: Performed By: #### E GFR #### [address] [address] Eosinophils/100 WBC (Bld) 0.0 % Normal 0.0-6.1 [facility] Comment on above: Performed By: #### E GFR #### [address] [address] Lymph Absolute 1.6 x10*3/mcL Normal 1.0-4.8 [facility] Comment on above: Performed By: #### E GFR #### [address] [address] Lymphocytes/100 WBC (Bld) 10.9 % Low 27.2-40.8 [facility] Comment on above: Performed By: #### E GFR #### [address] [address] Gaines Absolute 0.9 x10*3/mcL Normal 0.3-1.1 [facility] Comment on above: Performed By: #### E GFR #### [address] [address] Monocytes/100 WBC (Bld) 6.2 % Normal 4.7-13.9 [facility] Comment on above: Performed By: #### E GFR #### [address] [address] Neutro Absolute 12.4 x10*3/mcL High 1.8-7.7 [facility] Comment on above: Performed By: #### E GFR #### [address] [place] [address] Neutro Auto 82.8 % High 47.2-70.8 [facility] Comment on above: Performed By: #### E GFR #### [address] [address] Orthopedic Progress Noteon 0 10-01-2023 Orthopedic Progress Note Subjective Doing well this AM. Feels as though pain in the extremities/foot is improved. Denies fevers, chills, sweats. Objective Vitals & Measurements T: 36.8 ?C (Oral) HR: 113 (Peripheral) RR: 18 BP: 179/83 SpO2: 96% HT: 175 cm HT: 175 cm WT: 118.0 kg BMI: 36.24 BMI: 36.24 Additional Vitals No qualifying data available. Lab Results Microbiology - Current Encounter No qualifying data available. Diagnostic Results Diagnostic Radiology XR Spine Lumbosacral 1 View in OR 09/30/23 19:53:29 IMPRESSION: Postoperative changes at L5-S1. Hardware appears intact. Signed By: Maribeth Andre DO Physical Exam Dressing c/d/i Drain in place holding suction 5/5 BLE SILT BLE Medications Inpatient Ativan, 1 mg= 0.5 mL, IV Push, q6hr, PRN Benadryl, 50 mg, Oral, BID, PRN ceFAZolin + Sodium Chloride 0.9% intravenous solution 50 mL + sterile water 5 mL Colace, 100 mg, Oral, BID cyclobenzaprine, 10 mg, Oral, q8hr, PRN Dulcolax Laxative, 10 mg, Oral, Daily, PRN Dulcolax Laxative, 10 mg= 1 supp, Rectal, Daily, PRN Fleet Enema 7 g-19 g rectal enema, 133 mL, Rectal, Daily, PRN losartan-hydrochlorot hiazide 50mg-12.5mg oral tablet, 1 tabs, Oral, qAM MiraLax, 17 g= 1 EA, Oral, Daily morphine, 2 mg= 1 mL, IV Push, q3hr, PRN NS 1,000 mL, 1000 mL, IV Percocet 5/325 oral tablet, 2 tabs, Oral, q6hr, PRN Percocet 5/325 oral tablet, 1 tabs, Oral, q6hr, PRN pregabalin, 50 mg, Oral, BID Zofran, 4 mg= 2 mL, IV Push, q4hr, PRN Assessment/Plan POD#1 s/p Removal of hardware L5-S1 and revision instrumentation and fusion L5-S1 -Pain control with PRN narcotics -PT/OT. 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 Operation L5-S1 right HW removal, L5-S1 revision right decompression and revision fusion Surgeon(s) St Keri PLEITEZ, Diaz Mercer (Surgeon - Primary) Nuclear Supervising Operator Qamar Recio PA-C (Lab Systems Analyst) Anesthesia General Trevor PLEITEZ, Zuleima Maier (Silver Solution Mixer) Kurt Nieves (Provider) Estimated Blood Loss 150 mL Urine Output 800.0 mL Findings loose screws Specimen(s) none Complications none Catheters, Drains, Tubes Device: Rodney Tray 16FR Latex Free [id number] Electronically signed by Qamar Recio PA-C 09/30/23 12:16 EDT Normal [facility] XR Spine Lumbosacral 1 View in ORon 09-30-2023 XR Spine Lumbosacral 1 View in OR EXAM: XR Spine Lumbosacral 1 View in OR HISTORY: revision posterior lumbar spine fusion in OR COMPARISON: CT 08/11/2023. TECHNIQUE: Single lateral view of the lumbar spine. FINDINGS: Pedicle screws and posterior fixation rods at L5-S1 are noted. Discectomy changes at L5-S1 area measured. No compression fracture. No malalignment is seen. Mild endplate spur along the lumbar spine. IMPRESSION: Postoperative changes at L5-S1. Hardware appears intact. Final Dictated by: Maribeth Andre DO Dictated DT/TM: 09/30/2023 4:23 pm Signed by: Maribeth Andre DO Signed (Electronic Signature): 09/30/2023 7:53 pm Transcribed DT/TM: 09/30/2023 6:06 (If Report Is Signed, Electronically Signed in Other Vendor System) Normal [facility] XR Chest 2 Viewson XR Chest 2 Views EXAM: XR Chest 2 Views HISTORY: Preoperative chest x-ray COMPARISON: None. TECHNIQUE: Upright PA and lateral views of the thorax are provided for interpretation. FINDINGS: The lungs are clear. There is no pneumothorax or pleural effusion The cardiomediastinal silhouette is normal in size and configuration. There are no acute osseous abnormalities. IMPRESSION: No acute cardiopulmonary findings. Final Dictated by: Darren Rodriguez MD Dictated DT/TM: 09/12/2023 11:12 pm Signed by: Darren Rodriguez MD Signed (Electronic Signature): 09/12/2023 11:13 pm (If Report Is Signed, Electronically Signed in Other Vendor System) Normal [facility] .eGFRon 09-10-2023 GFR/1.73 sq M.predicted MDRD (S/P/Bld) [Vol rate/Area] mL/min/{1.73_m2} Normal >=60 [facility] Comment on above: Result Comment: [facility] have implemented the eGFR calculation approach that does not have a coefficient for race and that conforms to the NKF-ASN Task Force Recommendations. Stages of Chronic Kidney Disease GFR Stage 3a Mild to moderate loss of kidney function 59 to 45 Stage 3b Moderate to severe loss of kidney function 44 to 33 Stage 4 Severe loss of kidney function 29 to 15 Stage 5 Kidney failure Less than 15 GFR calculated using the CKD-Epi Creatinine Equation (2020): eGFR = 142 X min(SCr/?, 1)? X max(SCr /?, 1)-1.200 X 0.9938Age X 1.012 [if female] Abbreviations/Units: eGFR (estimated glomerular filtration rate) = mL/min/1.73 m2 SCr (standardized serum creatinine) = mg/dL ? = 0.7 (females) or 0.9 (males) ? = -0.241 (females) or -0.302 (males) min = indicates the minimum of SCr/? or 1 max = indicates the maximum of SCr/? or 1 Age = years Performed By: #### E GFR #### [facility] [address] [place] [address] ABO/Rhon 09-10-2023 ABO/Rh SD 09/30/23 ABO/Rh: A POS Normal [facility] Comment on above: Performed By: #### A ABRIL #### [facility] (DEFAULT) [address] [place] [address] [facility] (UNKNOWN) [address] [place] [address] ABSC Autoon 09-10-2023 ABSC Auto Negative Normal [facility] Comment on above: Performed By: #### A SA #### [facility] (UNKNOWN) [address] [place] [address] Basic Metabolic Profileon Anion gap [Moles/Vol] 8 mmol/L Normal 4-12 [facility] Comment on above: Performed By: #### C [id number] #### [facility] [address] [place] [address] Calcium [Mass/Vol] 10.3 mg/dL Normal 8.5-10.3 [facility] Comment on above: Performed By: #### C [id number] #### [facility] [address] [place] [address] Chloride [Moles/Vol] 101 mmol/L Normal 98-110 [facility] Comment on above: Performed By: #### C [id number] #### [facility] [address] [place] [address] CO2 [Moles/Vol] 31 mmol/L Normal 22-32 [facility] Comment on above: Performed By: #### C [id number] #### [address] [address] Creatinine [Mass/Vol] 1.05 mg/dL Normal 0.61-1.24 [facility] Comment on above: Performed By: #### C [id number] #### [address] [address] Glucose [Mass/Vol] 94 mg/dL Normal 70-99 [facility] Comment on above: Performed By: #### C [id number] #### [address] [address] Potassium [Moles/Vol] 4.0 mmol/L Normal 3.4-4.8 [facility] Comment on above: Performed By: #### C [id number] #### [address] [address] Sodium [Moles/Vol] 140 mmol/L Normal 133-142 [facility] Comment on above: Performed By: #### C D:[id number] #### [address] [address] Urea nitrogen [Mass/Vol] 13 mg/dL Normal 8-26 [facility] Comment on above: Performed By: #### C [id number] #### [address] [address] Urea nitrogen/Creatinine [Mass ratio] 12.4 mg/mg Normal 10.0-20.0 [facility] Comment on above: Performed By: #### C [id number] #### [address] [address] CBCon 09-10-2023 Erythrocyte distribution width (RBC) [Ratio] 14.1 % Normal 11.6-14.8 [facility] Comment on above: Performed By: #### C [id number] #### [address] [address] Hematocrit (Bld) [Volume fraction] 46.6 % Normal 41.0-53.0 [facility] Comment on above: Performed By: #### C [id number] #### [address] [address] Hemoglobin (Bld) [Mass/Vol] 15.5 g/dL Normal 13.5-17.5 [facility] Comment on above: Performed By: #### C [id number] #### [place] [id number] MCH (RBC) [Entitic mass] 30.9 pg Normal 27.0-35.0 [facility] Comment on above: Performed By: #### C [id number] #### [place] [id number] MCHC 33.3 % Normal 31.0-37.0 [facility] Comment on above: Performed By: #### C D:[id number] #### [place] [id number] MCV (RBC) [Entitic vol] 92.9 fL Normal 80.0-100.0 [facility] Comment on above: Performed By: #### C D:[id number] #### [place] [id number] Platelet 191 x10*3/mcL Normal 150-450 [facility] Comment on above: Performed By: #### C D:[id number] #### [address] [address] Platelet mean volume (Bld) [Entitic vol] 11.3 fL High 6.7-10.6 [facility] Comment on above: Performed By: #### C D:[id number] #### [address] [address] RBC 5.02 x10*6/mcL Normal 4.30-5.80 [facility] Comment on above: Performed By: #### C [id number] #### [address] [place] [address] WBC 8.2 x10*3/mcL Normal 4.5-11.0 [facility] Comment on above: Performed By: #### C [id number] #### [address] [address] MRSA, PCRon 09-10-2023 LAB ONLY Result Called? No Normal [facility] Comment on above: Performed By: #### E GFR #### [address] [address] Methicillin Resistant Staph aurus(MRSA) Not detected Normal Not Detected [facility] Comment on above: Result Comment: Mut ations or polymorphisms in primer or probe binding regions may affect detection of new or unknown MRSA variants resulting in a false negative. The [employer] Xpert MRSA Assay is a qualitative in vitro diagnostic test designed for rapid detection of Methicillin-Resistant Staphylococcus aureus (MRSA) from nasal swabs in patients at risk for nasal colonization.The test utilizes automated real-time polymerase chain reaction (PCR) to detect MRSA DNA,because the detection of MRSA is dependent on the number of organisms present. A positive test result does not necessarily indicate the presence of viable organism. It is however,presumptive for the presence of MRSA.Test results might be affected by concurrent antibiotic therapy. Therefore, therapeutic success or failure cannot be assessed using this test because DNA might persist following antimicrobial therapy. Mutations or polymorphisms in primer or probe binding regions may affect detection of new or unknown MRSA variants resulting in a false negative result. Results from the Xpert MRSA Assay should be interpreted in conjunction with other laboratory and clinical data available to the clinician. Performed By: #### E GFR #### [address] [address] PTon 09-10-2023 INR Coag (PPP) [Relative time] 0.9 {INR} Normal <=3.5 [facility] Comment on above: Result Comment: INR has no normal range. INR Therapeutic range is: 2.0-3.0 (AF, CVA, TIAs, DVT prophylaxis, acute DVT) 2.5-3.5 (Mech heart valves, recurrent thrombosis/emboli) Performed By: #### P TINR #### [address] [place] [address] PT Coag (PPP) [Time] 9.8 s Normal 9.2-12.0 [facility] Comment on above: Performed By: #### P TINR #### [facility] [address] [place] [address] PTTon 09-10-2023 aPTT Coag (Bld) [Time] 22.0 s Normal 19.5-28.2 [facility] Comment on above: Performed By: #### C D:[id number] #### [facility] [address] [place] [address] Amylaseon 07-15-2022 Amylase [Catalytic activity/Vol] 43 U/L Normal 29-103 [facility] Comment on above: Order Comment: Reaso n for Exam Generalized abdominal pain;Slow transit constipation;Medicat Reason for Exam Generalized abdominal pain;Medication monitoring encounter NOT FASTING. JKW Performed By: #### C BC, POOJA, LIPASE #### [facility] [address] Amylase 43 U/L Normal 29-103 U/L FlameStower Other Amylase [Enzymatic activity/ volume] in Serum or PlasmaOrdered By: Maribeth Vuong on 07-15-2022 Amylase [Catalytic activity/Vol] 43 U/L 29-103 [facility] Basophils Auto (Bld) [#/Vol] Ordered By: Maribeth Vuong on 07-15-2022 Basophils (Bld) [#/Vol] 0.0 10*3/uL 0.0-0.2 [facility] Basophils/100 WBC Auto (Bld) Ordered By: Maribeth Vuong on 07-15-2022 Basophils/100 WBC (Bld) 0.5 % . [facility] CBC W MANUAL DIFFon 07-16-19 23 ATYPICAL LYMPH # Normal [facility] Comment on above: Performed By: #### C JEAN ####[facility] [address] [place], [place] [address]WqIbrahima David ATYPICAL LYMPH % Normal [facility] Comment on above: Performed By: #### C JEAN ####[facility] [address] [place] [id number]. Yilan David BAND # 0.1 103/ul Normal 0.0-0.3 [facility] Comment on above: Performed By: #### C JEAN ####[facility] [address] [place] [address]Dr. Yilan David BAND % 1 % Normal 0-5 [facility] Comment on above: Performed By: #### C JEAN ####[facility] [address] [place] [address]Dr. Yilan David BASOM # 0.00 103/ul Normal 0.00-0.10 [facility] Comment on above: Performed By: #### C JEAN ####[facility] [address] [place] [address]Dr. Sydney David BASOM % 0.0 % Critically low 0.2-2.0 [facility] Comment on above: Performed By: #### C JEAN ####[facility] [address] [place] [address]Dr. Yilan David BLAST # Normal [facility] Comment on above: Performed By: #### C JEAN ####[facility] Hz[address] [place] [address]Dr. Yilan David BLAST % Normal [facility] Comment on above: Performed By: #### C JEAN ####[facility] [address] [place] [address]Dr. Yilan David CORRECTED WBC Normal 4.0-11.[address] [facility] Comment on above: Performed By: #### C JEAN ####[facility] [address] [place] [address]Dr. Yilan David EOS # 0.24 103/ul Normal 0.00-0.70 [facility] Comment on above: Performed By: #### C JEAN ####[facility] [address] [place], [place] [address]Dr. Yilan David EOS% 3.0 % Normal 0.9-7.0 [facility] Comment on above: Performed By: #### Maya PENA ####[facility] T[address] [place], [place] [address]Ju. Sydney David HCT 46.4 % Normal 42.0-54.0 [facility] Comment on above: Performed By: #### Maya PENA ####[facility] [address] [place], [place] [address]Kw. Sydney David HGB 15.4 g/dl Normal 14.0-18.0 [facility] Comment on above: Performed By: #### C JEAN ####[facility] [address] [place] [id number]. Sydney David LYMPHM # 3.36 103/ul Normal 1.20-3.80 [facility] Comment on above: Performed By: #### Maya PENA ####[facility] [address] [place] [address]Dr. Sydney David LYMPHM% 42.0 % Normal 20.5-60.0 [facility] Comment on above: Performed By: #### Maya PENA ####[facility] [address] [place] [address]Dr. Sydney David MCH 30.3 pg Normal 25.9-34.0 [facility] Comment on above: Performed By: #### Maya PENA ####[facility] [address]sks[address] [place] [address]Dr. Sydney David MCHC 33.2 g/dl Normal 29.9-35.2 [facility] Comment on above: Performed By: #### Maya PENA ####[facility] [address] [place], [place] [address]Fm. Sydney David MCV 91.3 fL Normal 80.0-94.0 [facility] Comment on above: Performed By: #### Maya PENA ####[facility] [address] [place] [address]Dr. Sydney David METAMYELOCYTE # Normal [facility] Comment on above: Performed By: #### Maya PENA ####[facility] [address] [place] [address]Dr. Keymera David METAMYELOCYTE % Normal [facility] Comment on above: Performed By: #### C JEAN ####[facility] [address] [place] [address]Dr. Sydney David MONOM# 0.80 103/ul Normal 0.30-0.80 [facility] Comment on above: Performed By: #### C JEAN ####[facility] Qnxlflxqh[address]2336 [place] [address]Dr. Sydney David MONOM% 10.0 % Normal 1.7-12.0 [facility] Comment on above: Performed By: #### C JEAN ####[facility] [address] [place] [address]Dr. Sydney Frankie MPV 11.8 fL Normal 9.5-13.5 [facility] Comment on above: Performed By: #### C JEAN ####[facility] [address] [place], [place] [address]Dr. Sydney Frankie MYELOCYTE # Normal [facility] Comment on above: Performed By: #### C JEAN ####[facility] [address] [place], [place] [address]Dr. Keymera David MYELOCYTE % Normal [facility] Comment on above: Performed By: #### C JEAN ####[facility] D[address]em[address]2772 [place] [address]Dr. Sydney David NRBC Normal [facility] Comment on above: Performed By: #### C JEAN ####[facility] Qpneltzrmy0383 [place] [address]Dr. Keymera Frankie PLT 249 103/ul Normal 150-450 [facility] Comment on above: Performed By: #### C JEAN ####[facility] [address] [place], [place] [address]Dr. Sydney David RBC 5.08 106/ul Normal 4.70-6.10 [facility] Comment on above: Performed By: #### C JEAN ####[facility] [address] [place], [place] [address]DrIbrahima David RDW 13.1 % Normal 11.0-15.0 [facility] Comment on above: Performed By: #### C ANSONDOLORES ####[facility] [address] [place], [place] [address]JcIbrahima David SEG # 3.52 103/ul Normal 1.40-6.50 [facility] Comment on above: Performed By: #### C ANSONDOLORES ####[facility] [address] [place], [place] [address]ZrIbrahima David SEG % 44.0 % Normal 43.0-75.0 [facility] Comment on above: Performed By: #### C ANSONDOLORES ####[facility] [address] [place], [place] [address]RjIbrahima David WBC 8.0 103/ul Normal 4.0-11.0 [facility] Comment on above: Performed By: #### C ANSONDOLORES ####[facility] Us[address] [place], [place] [address] ABD/PELV W CONon 07-16-19 23 [...] EVANGELIST LEOS Date: 2022-07-15 16:53 Normal [facility] Complete Blood Count Auto Di ffon 07-15-2022 Basophils (Bld) [#/Vol] 0.0 10*3/uL Normal 0.0-0.2 [facility] Comment on above: Order Comment: Reaso n for Exam Medication monitoring encounter Result Comment: PERF ORMED BY: [place] [address] PATHOLOGIST DRAFTER [employer] ALEM GARCIA M.D. Performed By: #### C BC, POOJA, LIPASE #### [address] Basophils/100 WBC (Bld) 0.5 % Normal . [facility] Comment on above: Order Comment: Reaso n for Exam Medication monitoring encounter Performed By: #### C BC, POOJA, LIPASE #### [facility] [address] [place] [address] Eosinophils (Bld) [#/Vol] 0.6 10*3/uL High 0.0-0.45 [facility] Comment on above: Order Comment: Reaso n for Exam Medication monitoring encounter Performed By: #### C BC, POOJA, LIPASE #### [address] Eosinophils/100 WBC (Bld) 6.1 % Normal . [facility] Comment on above: Order Comment: Reaso n for Exam Medication monitoring encounter Performed By: #### C BC, POOJA, LIPASE #### [address] Erythrocyte distribution width (RBC) [Ratio] 13.6 % Normal 12.0-14.8 [facility] Comment on above: Order Comment: Reaso n for Exam Medication monitoring encounter Performed By: #### C BC, POOJA, LIPASE #### [address] Hematocrit (Bld) [Volume fraction] 47.4 % Normal 38.8-50.0 [facility] Comment on above: Order Comment: Reaso n for Exam Medication monitoring encounter Performed By: #### C BC, POOJA, LIPASE #### [address] Hemoglobin (Bld) [Mass/Vol] 15.5 g/dL Normal 13.0-17.0 [facility] Comment on above: Order Comment: Reaso n for Exam Medication monitoring encounter Performed By: #### C BC, POOJA, LIPASE #### [address] Lymphocytes (Bld) [#/Vol] 4.3 10*3/uL Normal 1.00-4.8 [facility] Comment on above: Order Comment: Reaso n for Exam Medication monitoring encounter Performed By: #### C BC, POOJA, LIPASE #### [address] Lymphocytes/100 WBC (Bld) 46.5 % Normal . [facility] Comment on above: Order Comment: Reaso n for Exam Medication monitoring encounter Performed By: #### C BC, POOJA, LIPASE #### [address] MCH (RBC) [Entitic mass] 30.2 pg Normal 27.5-35.2 [facility] Comment on above: Order Comment: Reaso n for Exam Medication monitoring encounter Performed By: #### C BC, POOJA, LIPASE #### [address] MCV (RBC) [Entitic vol] 92.3 fL Normal 83.5-101 [facility] Comment on above: Order Comment: Reaso n for Exam Medication monitoring encounter Performed By: #### C BC, POOJA, LIPASE #### [address] Mean Corpuscular HGB Conc 32.7 g/dL Normal 32.5-35.6 [facility] Comment on above: Order Comment: Reaso n for Exam Medication monitoring encounter Performed By: #### C BC, POOJA, LIPASE #### [place] [address] [place] Monocytes (Bld) [#/Vol] 0.8 10*3/uL Normal 0.0-0.8 [facility] Comment on above: Order Comment: Reaso n for Exam Medication monitoring encounter Performed By: #### C BC, POOJA, LIPASE #### [facility] [address] Monocytes/100 WBC (Bld) 8.3 % Normal . [facility] Comment on above: Order Comment: Reaso n for Exam Medication monitoring encounter Performed By: #### C BC, POOJA, LIPASE #### [facility] [address] Neutrophils (Bld) [#/Vol] 3.6 10*3/uL Normal 1.8-7.7 [facility] Comment on above: Order Comment: Reaso n for Exam Medication monitoring encounter Performed By: #### C BC, POOJA, LIPASE #### [address] Neutrophils/100 WBC (Bld) 38.6 % Normal . [facility] Comment on above: Order Comment: Reaso n for Exam Medication monitoring encounter Performed By: #### C BC, POOJA, LIPASE #### [address] NRBC% 0.0 /100{WBC} Normal 0-0.5 [facility] Comment on above: Order Comment: Reaso n for Exam Medication monitoring encounter Performed By: #### C BC, POOJA, LIPASE #### [address] Platelet mean volume (Bld) [Entitic vol] 11.1 fL High 6.6-10.1 [facility] Comment on above: Order Comment: Reaso n for Exam Medication monitoring encounter Performed By: #### C BC, POOJA, LIPASE #### [address] WBC (Bld) [#/Vol] 9.2 10*3/uL Normal 4.1-10.5 [facility] Comment on above: Order Comment: Reaso n for Exam Medication monitoring encounter Performed By: #### C BC, POOJA, LIPASE #### [facility] [address] Basophils (Bld) [#/Vol] [id number] 10*3/uL Normal 0.0-0.2 10*3/uL [employer] Other Basophils/100 WBC (Bld) 0.500 % . % N [facility] [employer] Other Eosinophils (Bld) [#/Vol] 0.872986290 10*3/uL High 0.0-0.45 10*3/uL [employer] Other Eosinophils/100 WBC (Bld) 6.100 % . % [employer] Other Erythrocyte distribution width (RBC) [Ratio] 13.600 % Normal 12.0-14.8 % [employer] Other Hematocrit (Bld) [Volume fraction] 47.400 % Normal 38.8-50.0 % [employer] Other Hemoglobin (Bld) [Mass/Vol] 15.153556 g/dL Normal 13.0-17.0 g/dL [employer] Other Lymphocytes (Bld) [#/Vol] 4.282400576 10*3/uL Normal 1.00-4.8 10*3/uL [employer] Other Lymphocytes/100 WBC (Bld) 46.500 % . % [employer] Other MCH (RBC) [Entitic mass] 30.2000 pg Normal 27.5-35.2 pg [employer] Other MCV (RBC) [Entitic vol] 92.3000 fL Normal 83.5-101 fL [employer] Other Monocytes (Bld) [#/Vol] 0.372195773 10*3/uL Normal 0.0-0.8 10*3/uL [employer] Other Monocytes/100 WBC (Bld) 8.300 % . % N [facility] [employer] Other Neutrophils (Bld) [#/Vol] 3.293573756 10*3/uL Normal 1.8-7.7 10*3/uL [employer] Other Neutrophils/100 WBC (Bld) 38.600 % . % [employer] Other Platelet mean volume (Bld) [Entitic vol] 11.1000 fL High 6.6-10.1 fL [employer] Other WBC (Bld) [#/Vol] 9.198276686 10*3/uL Normal 4.1 -10.5 10*3/uL [employer] Other Complete Blood Count Auto Diff 9.2 10*3/uL Normal 4.1-10.5 10*3/uL [employer] Other Complete Blood Count Auto Diff 32.7 g/dL Normal 32.5-35.6 g/dL [employer] Other Complete Blood Count Auto Diff 0.0 /100{WBC} Normal 0-0.5 /100{WBC} [employer] Other Complete Blood Count Auto Di ffOrdered By: Maribeth Vuong on 07-15-2022 Platelets (Bld) [#/Vol] 236 10*3/uL Normal 150-450 [facility] Comment on above: Order Comment: Reaso n for Exam Medication monitoring encounter Performed By: #### C BC, POOJA, LIPASE #### [facility] [address] RBC (Bld) [#/Vol] 5.13 10*6/uL Normal 3.90-5.60 [facility] Comment on above: Order Comment: Reaso n for Exam Medication monitoring encounter Performed By: #### C BC, POOJA, LIPASE #### [facility] [address] ER URINE PROFILEon 3 Bilirubin Ql (U) Negative Normal NEGATIVE [facility] Comment on above: Performed By: #### E RUR ####[facility] [address] [place], [place] [address]Dr. Sydney David Clarity (U) CLEAR Normal CLEAR The [facility] Comment on above: Performed By: #### E RUR ####[facility] [address] [place], [place] [address]Dr. Sydney David Color (U) LT. YELLOW Normal YELLOW [facility] Comment on above: Performed By: #### E RUR ####[facility] [address] [place], [place] [address]Dr. Sydney David ERUAHD A micrscopic examination will be performed if indicated. Normal [facility] Comment on above: Performed By: #### E RUR ####[facility] [address] [place], [place] [address]Dr. Sydney David Glucose Ql (U) Negative Normal NEGATIVE The [facility] Comment on above: Performed By: #### E RUR ####[facility] [address] [place], [place] [address]Dr. Sydney David Hemoglobin Ql (U) Negative Normal NEGATIVE The [facility] Comment on above: Performed By: #### E RUR ####[facility] [address] [place], [place] [address]Dr. Keymera David Ketones Ql (U) Negative Normal NEGATIVE The [facility] Comment on above: Performed By: #### E RUR ####[facility] [address] [place], [place] [address]Dr. Sydney David LEUKOCYTES Negative Normal NEGATIVE The [facility] Comment on above: Performed By: #### E RUR ####[facility] [address] [place], [place] [address]Dr. Keymera David Nitrite Ql (U) Negative Normal NEGATIVE The [facility] Comment on above: Performed By: #### E RUR ####[facility] [address] [place], [place] [address]Dr. Sydney David pH (U) 5.5 [pH] Normal 5-9 [facility] Comment on above: Performed By: #### E RUR ####[facility] [address] [place] [address]Dr. Sydney David SPEC GRAVITY 1.010 Normal 1.005-<=1.0 25 [facility] Comment on above: Performed By: #### E RUR ####[facility] [address] [place] [address]Dr. Sydney David UA PROTEIN Negative Normal NEGATIVE/ TRACE [facility] Comment on above: Performed By: #### E RUR ####[facility] [address] [place] [address]Dr. Sydney David UR MICRO IND NOT INDICATED Normal The [facility] Comment on above: Performed By: #### E RUR ####[facility] [address] [place] [address]Dr. Sydney David Urobilinogen Qn (U) 0.2 {Johan'U}/dL Normal 0.2 - 1. 0 [facility] Comment on above: Performed By: #### E RUR ####[facility] [address] [place] [address]Dr. Sydney David Eosinophils Auto (Bld) [#/Vo l]Ordered By: Maribeth Vuong on 07-15-2022 Eosinophils (Bld) [#/Vol] 0.6 10*3/uL 0.0-0.45 [facility] Eosinophils/100 WBC Auto (Bl d)Ordered By: Maribeth Vuong on 07-15-2022 Eosinophils/100 WBC (Bld) 6.1 % . [facility] Erythrocyte distribution wid th Auto (RBC) [Ratio]Ordered By: Maribeth Vuong on 07-15-2022 Erythrocyte distribution width (RBC) [Ratio] 13.6 % 12.0-14.8 [facility] Hematocrit Auto (Bld) [Volum e fraction]Ordered By: Maribeth Vuong on 07-15-2022 Hematocrit (Bld) [Volume fraction] 47.4 % 38.8-50.0 [facility] Hemoglobin [Mass/volume] in BloodOrdered By: Maribeth Vuong on 07-15-2022 Hemoglobin (Bld) [Mass/Vol] 15.5 g/dL 13.0-17.0 [facility] Leukocytes [#/volume] correc gris for nucleated erythrocytes in Blood by Automated counOrdered By: Maribeth Vuong on 07-15-2022 WBC corrected for nucl RBC Auto (Bld) [#/Vol] 9.2 10*3/uL 4.1-10.5 [facility] Lipaseon 07-15-2022 Lipase [Catalytic activity/Vol] 80.0 U/L Normal 11.0-82.0 [facility] Comment on above: Order Comment: Reaso n for Exam Generalized abdominal pain;Slow transit constipation;Medicat Reason for Exam Generalized abdominal pain;Medication monitoring encounter NOT FASTING. JKW Result Comment: PERF ORMED BY: [place] [address] PATHOLOGIST DRAFTER ELECTRONIC ALEM GARCIA M.D. Performed By: #### C BC, POOJA, LIPASE #### [address] Lipase [Catalytic activity/Vol] 80.42940 U/L Normal 11.0-82.0 U/L [employer] Other Lipase [Enzymatic activity/v olume] in Serum or PlasmaOrdered By: Maribeth Vuong on 07-15-2022 Lipase [Catalytic activity/Vol] 80.0 U/L 11.0-82.0 [facility] Lymphocytes Auto (Bld) [#/Vo l]Ordered By: Maribeth Vuong on 07-15-2022 Lymphocytes (Bld) [#/Vol] 4.3 10*3/uL 1.00-4.8 [facility] Lymphocytes/100 WBC Auto (Bl d)Ordered By: Maribeth Vuong on 07-15-2022 Lymphocytes/100 WBC (Bld) 46.5 % . [facility] MCH Auto (RBC) [Entitic mass ]Ordered By: Maribeth Vuong on 07-15-2022 MCH (RBC) [Entitic mass] 30.2 pg 27.5-35.2 [facility] MCHC Auto (RBC) [Mass/Vol]Or dered By: Maribeth Vuong on 07-15-2022 MCHC (RBC) [Mass/Vol] 32.7 g/dL 32.5-35.6 [facility] [place] MCV Auto (RBC) [Entitic vol] Ordered By: Maribeth Vuong on 07-15-2022 MCV (RBC) [Entitic vol] 92.3 fL 83.5-101 F [facility] Monocytes Auto (Bld) [#/Vol] Ordered By: Maribeth Vuong on 07-15-2022 Monocytes (Bld) [#/Vol] 0.8 10*3/uL 0.0-0.8 [facility] Monocytes/100 WBC Auto (Bld) Ordered By: Maribeth Vuong on 07-15-2022 Monocytes/100 WBC (Bld) 8.3 % . [facility] Neutrophils Auto (Bld) [#/Vo l]Ordered By: Maribeth Vuong on 07-15-2022 Neutrophils (Bld) [#/Vol] 3.6 10*3/uL 1.8-7.7 [facility] Neutrophils/100 WBC Auto (Bl d)Ordered By: Maribeth Vuong on 07-15-2022 Neutrophils/100 WBC (Bld) 38.6 % . [facility] Nucleated erythrocytes [Pres ence] in Blood by Automated countOrdered By: Maribeth Vuong on 07-15-2022 Nucleated RBC Auto Ql (Bld) 0.0 /100{WBC} 0-0.5 [facility] PROF CHEM 8 (BAS METB)on Anion gap [Moles/Vol] 13.3 mmol/L Normal [facility] Comment on above: Performed By: #### B MP #### [facility] [address] [address] [address] Sydney David Calcium [Mass/Vol] 9.1 mg/dL Normal 8.5-10.1 [facility] Comment on above: Performed By: #### B MP #### [facility] [address] [place], [place] [address] Dr. Sydney David Chloride [Moles/Vol] 102 mmol/L Normal 98-107 [facility] Comment on above: Performed By: #### B MP #### [facility] [address] [address] [address] Sydney David CO2 [Moles/Vol] 27.2 mmol/L Normal 21.0-32.0 [facility] Comment on above: Performed By: #### B MP #### [facility] [address] [address] [address] Sydney David Creatinine [Mass/Vol] 1.08 mg/dL Normal 0.70-1.30 [facility] Comment on above: Performed By: #### B MP #### [facility] [address] [address] [address] Sydney David EGFR-AF [place]ER >60 Normal >=60 [facility] Comment on above: Performed By: #### B MP #### [facility] [address] [address] [address] Sydney David EGFR-NON AF [place] >60 Normal >=60 [facility] Comment on above: Performed By: #### B MP #### [facility] [address] [address] [address] Sydney David Glucose [Mass/Vol] 116 mg/dL Critically high 74-106 [facility] Comment on above: Performed By: #### B MP #### [facility] [address] [address] [address] Sydney David Potassium [Moles/Vol] 3.5 mmol/L Normal 3.5-5.1 [facility] Comment on above: Performed By: #### B MP #### [facility] [address] [address] [address] Sydney David Sodium [Moles/Vol] 139 mmol/L Normal 136-145 [facility] Comment on above: Performed By: #### B MP #### [facility] [address] [address] [address] Sydney David Urea nitrogen [Mass/Vol] 12.0 mg/dL Normal 7.0-18.0 [facility] Comment on above: Performed By: #### B MP #### [facility] [address] [address] [address] Sydney David Urea nitrogen/Creatinine [Mass ratio] 11.1 mg/mg Normal [facility] Comment on above: Performed By: #### B #### [facility] [address] [address] [address] Sydney David Platelet mean volume Auto (B ld) [Entitic vol]Ordered By: Maribeth Vuong on 07-15-2022 Platelet mean volume (Bld) [Entitic vol] 11.1 fL 6.6-10.1 [facility] WBC Auto (Bld) [#/Vol]Ordere d By: Maribeth Vuong on 07-15-2022 WBC (Bld) [#/Vol] 9.2 10*3/uL 4.1-10.5 [facility] XR KUBon 07-15-2022 XR KUB [facility] [place] [address] XRay Report Signed Patient: Neal Parker MR#: [id number] : 1980 Acct:[id number] Age/Sex: 41 / M ADM Date: 07/15/22 Loc: [facility] Room: Type: [facility] Attending Dr: Maribeth Vuong DO Copies to: [...] Greer Jr., D.O.07/15/2022 4:05 PM Dictation Location: [place] [address] Transcribed By: [facility] 07/15/22 1605 Dictated By: Sonny Greer Jr, DO 07/15/22 1604 Signed By: 07/15/22 1605 Normal [facility] Alanine aminotransferase [En zymatic activity/volume] in Serum or PlasmaOrdered By: Maribeth Vuong on 07-12-2022 ALT [Catalytic activity/Vol] 68 U/L 7-52 [facility] Albumin [Mass/volume] in Ser um or Plasma by Bromocresol green (BCG) dye binding methoOrdered By: Maribeth Vuong on 07-12-2022 Albumin BCG dye [Mass/Vol] 4.7 g/dL 3.5-5.7 [facility] Alkaline phosphatase [Enzyma tic activity/volume] in Serum or PlasmaOrdered By: Maribeth Vuong on 07-12-2022 ALP [Catalytic activity/Vol] 33 U/L 34-104 [facility] Aspartate aminotransferase [ Enzymatic activity/volume] in Serum or PlasmaOrdered By: Maribeth Vuong on 07-12-2022 AST [Catalytic activity/Vol] 29 U/L 13-39 [facility] Bilirubin.total [Mass/volume ] in Serum or PlasmaOrdered By: Maribeth Vuong on 07-12-2022 Bilirubin [Mass/Vol] 0.6 mg/dL 0.3-1.0 [facility] Calcium [Mass/volume] in Ser um or PlasmaOrdered By: Maribeth Vuong on 07-12-2022 Calcium [Mass/Vol] 10.1 mg/dL 8.6-10.3 [facility] Carbon dioxide, total [Moles /volume] in Serum or PlasmaOrdered By: Maribeth Vuong on 07-12-2022 CO2 [Moles/Vol] 27.5 mmol/L 21.0-31.0 [facility] Chloride [Moles/volume] in S flash or PlasmaOrdered By: Maribeth Vuong on 07-12-2022 Chloride [Moles/Vol] 106 mmol/L 98-107 [facility] Cholesterol [Mass/volume] in Serum or PlasmaOrdered By: Maribeth Vuong on 07-12-2022 Cholesterol [Mass/Vol] 296 mg/dL 140-200 [facility] Comment on above: Chol less than 200 m g/dl low riskChol 201-239 mg/dl borderline riskChol 240 mg/dl and greater high risk Cholesterol in LDL Calc [Mas s/Vol]Ordered By: aMribeth Vuong on 07-12-2022 Cholesterol in LDL [Mass/Vol] 206 mg/dL 0-100 [facility] Comment on above: LDL ATP III CLASSIFI CATIONLDL less than 100 mg/dL OptimalLDL 100-129 mg/dL Near or above optimalLDL 130-159 mg/dL Borderline highLDL 160-189 mg/dL HighLDL greater than 189 mg/dL Very high Cholesterol in VLDL Calc [Ma ss/Vol]Ordered By: Maribeth Vuong on 07-12-2022 Cholesterol in VLDL [Mass/Vol] 53 mg/dL [facility] Comprehensive Metabolic Pane jenni 07-12-2022 Albumin [Mass/Vol] 4.7 g/dL Normal 3.5-5.7 [facility] Comment on above: Order Comment: PT FA STED 12 HOURS Reason for Exam Well adult exam;Lipid disorder;Medication monitoring encount Reason for Exam Lipid disorder Performed By: #### L IPID, PSAS W RFX, CMP #### [facility] [address] Albumin/Globulin [Mass ratio] 1.8 {ratio} Normal [facility] Comment on above: Order Comment: PT FA STED 12 HOURS Reason for Exam Well adult exam;Lipid disorder;Medication monitoring encount Reason for Exam Lipid disorder Performed By: #### L IPID, PSAS W RFX, CMP #### [facility] [address] [place] [address] [place] ALP [Catalytic activity/Vol] 33 U/L Low 34-104 [facility] Comment on above: Order Comment: PT FA STED 12 HOURS Reason for Exam Well adult exam;Lipid disorder;Medication monitoring encount Reason for Exam Lipid disorder Performed By: #### L IPID, PSAS W RFX, CMP #### [facility] [address] [place] [address] [place] ALT [Catalytic activity/Vol] 68 U/L High 7-52 [facility] Comment on above: Order Comment: PT FA STED 12 HOURS Reason for Exam Well adult exam;Lipid disorder;Medication monitoring encount Reason for Exam Lipid disorder Performed By: #### L IPID, PSAS W RFX, CMP #### [facility] [address] [place] [address] [place] Anion gap [Moles/Vol] 11.8 mmol/L Normal 6.0-15.0 [facility] Comment on above: Order Comment: PT FA STED 12 HOURS Reason for Exam Well adult exam;Lipid disorder;Medication monitoring encount Reason for Exam Lipid disorder Performed By: #### L IPID, PSAS W RFX, CMP #### [facility] [address] AST [Catalytic activity/Vol] 29 U/L Normal 13-39 [facility] Comment on above: Order Comment: PT FA STED 12 HOURS Reason for Exam Well adult exam;Lipid disorder;Medication monitoring encount Reason for Exam Lipid disorder Performed By: #### L IPID, PSAS W RFX, CMP #### [facility] [address] Bilirubin [Mass/Vol] 0.6 mg/dL Normal 0.3-1.0 [facility] Comment on above: Order Comment: PT FA STED 12 HOURS Reason for Exam Well adult exam;Lipid disorder;Medication monitoring encount Reason for Exam Lipid disorder Performed By: #### L IPID, PSAS W RFX, CMP #### [facility] [address] Calcium [Mass/Vol] 10.1 mg/dL Normal 8.6-10.3 [facility] Comment on above: Order Comment: PT FA STED 12 HOURS Reason for Exam Well adult exam;Lipid disorder;Medication monitoring encount Reason for Exam Lipid disorder Performed By: #### L IPID, PSAS W RFX, CMP #### [facility] [address] [place] [address] [place] Chloride [Moles/Vol] 106 mmol/L Normal 98-107 [facility] Comment on above: Order Comment: PT FA STED 12 HOURS Reason for Exam Well adult exam;Lipid disorder;Medication monitoring encount Reason for Exam Lipid disorder Performed By: #### L IPID, PSAS W RFX, CMP #### [facility] [address] CO2 [Moles/Vol] 27.5 mmol/L Normal 21.0-31.0 [facility] Comment on above: Order Comment: PT FA STED 12 HOURS Reason for Exam Well adult exam;Lipid disorder;Medication monitoring encount Reason for Exam Lipid disorder Performed By: #### L SOLOMON PSAS W RFX, CMP #### [facility] [address] Creatinine [Mass/Vol] 0.96 mg/dL Normal 0.70-1.30 [facility] [place] Comment on above: Order Comment: PT FA STED 12 HOURS Reason for Exam Well adult exam;Lipid disorder;Medication monitoring encount Reason for Exam Lipid disorder Performed By: #### L IPDANNIELLE PSAS W RFX, CMP #### [facility] [address] GFR/1.73 sq M.predicted MDRD (S/P/Bld) [Vol rate/Area] mL/min/{1.73_m2} Normal [facility] Comment on above: Order Comment: PT FA STED 12 HOURS Reason for Exam Well adult exam;Lipid disorder;Medication monitoring encount Reason for Exam Lipid disorder Performed By: #### L IPID, PSAS W RFX, CMP #### [facility] [address] [place] [address] Globulin (S) [Mass/Vol] 2.6 g/dL Normal [facility] Comment on above: Order Comment: PT FA STED 12 HOURS Reason for Exam Well adult exam;Lipid disorder;Medication monitoring encount Reason for Exam Lipid disorder Performed By: #### L IPID, PSAS W RFX, CMP #### [facility] [address] [place] [address] Glucose [Mass/Vol] 106 mg/dL High 70-100 [facility] Comment on above: Order Comment: PT FA STED 12 HOURS Reason for Exam Well adult exam;Lipid disorder;Medication monitoring encount Reason for Exam Lipid disorder Result Comment: [place] Glucose Reference Range is dependent on time and content of last meal. Glucose of more than 200 mg/dL in a nonstressed, ambulatory subject supports the diagnosis of Diabetes Mellitus. ADA recommended reference range Performed By: #### L IPID, PSAS W RFX, CMP #### [facility] [address] Potassium [Moles/Vol] 4.3 mmol/L Normal 3.5-5.1 [facility] [place] Comment on above: Order Comment: PT FA STED 12 HOURS Reason for Exam Well adult exam;Lipid disorder;Medication monitoring encount Reason for Exam Lipid disorder Performed By: #### L IPDANNIELLE PSAS W RFX, CMP #### [facility] [address] Protein [Mass/Vol] 7.3 g/dL Normal 6.4-8.9 [facility] Comment on above: Order Comment: PT FA STED 12 HOURS Reason for Exam Well adult exam;Lipid disorder;Medication monitoring encount Reason for Exam Lipid disorder Performed By: #### L SOLOMON PSAS W RFX, CMP #### [facility] [address] [place] [address] Sodium [Moles/Vol] 141 mmol/L Normal 136-145 [facility] Comment on above: Order Comment: PT FA STED 12 HOURS Reason for Exam Well adult exam;Lipid disorder;Medication monitoring encount Reason for Exam Lipid disorder Performed By: #### L SOLOMON PSAS W RFX, CMP #### [facility] [address] [place] [address] Urea nitrogen [Mass/Vol] 12 mg/dL Normal 7-25 [facility] Comment on above: Order Comment: PT FA STED 12 HOURS Reason for Exam Well adult exam;Lipid disorder;Medication monitoring encount Reason for Exam Lipid disorder Performed By: #### L IPID, PSAS W RFX, CMP #### [facility] [address] [place] [address] Creatinine [Mass/volume] in Serum or PlasmaOrdered By: Maribeth Vuong on 07-12-2022 Creatinine [Mass/Vol] 0.96 mg/dL 0.70-1.30 [facility] [place] Globulin Calc (S) [Mass/Vol] Ordered By: Maribeth Vuong on 07-12-2022 Globulin (S) [Mass/Vol] 2.6 g/dL [facility] Glucose [Mass/volume] in Ser um or PlasmaOrdered By: Maribeth Vuong on 07-12-2022 Glucose [Mass/Vol] 106 mg/dL 70-100 [facility] Comment on above: ADA recommended refe rence rangeRandom Glucose Reference Range is dependent on time and content of last meal. Glucose of more than 200 mg/dL in a nonstressed, ambulatory subject supports the diagnosis of Diabetes Mellitus. Lipid Panelon 07-12-2022 Cholesterol [Mass/Vol] 296 mg/dL High 140-200 [facility] Comment on above: Order Comment: PT FA STED 12 HOURS Reason for Exam Well adult exam;Lipid disorder;Medication monitoring encount Reason for Exam Lipid disorder Result Comment: Chol less than 200 mg/dl low risk Chol 201-239 mg/dl borderline risk Chol 240 mg/dl and greater high risk Performed By: #### L IPID, PSAS W RFX, CMP #### [facility] [address] Cholesterol in HDL [Mass/Vol] 37 mg/dL Normal 29-71 [facility] Comment on above: Order Comment: PT FA STED 12 HOURS Reason for Exam Well adult exam;Lipid disorder;Medication monitoring encount Reason for Exam Lipid disorder Result Comment: HDL CHOL ATP-III CLASSIFICATION Cardiovascular Risk HDL > or equal to 60 mg/dL LOW HDL < 40 mg/dL HIGH Performed By: #### L IPID, PSAS W RFX, CMP #### [facility] [address] [place] [id number] [facility] Cholesterol.total/Patti sterol in HDL [Mass ratio] 8.0 {ratio} Normal <5.0 [facility] Comment on above: Order Comment: PT FA STED 12 HOURS Reason for Exam Well adult exam;Lipid disorder;Medication monitoring encount Reason for Exam Lipid disorder Result Comment: PERF ORMED BY: [facility] [address] [place] [address] PATHOLOGIST DRAFTER ELECTRONIC ALEM GARCIA M.D. Performed By: #### L IPID, PSAS W RFX, CMP #### [facility] [address] [place] [id number] [facility] LDL Cholesterol,Calculated 206 mg/dL High 0-100 [facility] Inc Comment on above: Order Comment: PT FA [...] L IPID, PSAS W RFX, CMP #### [facility] [address] Triglyceride w/Reflex 266 mg/dL High 0-149 [facility] [place] Comment on above: Order Comment: PT FA [...] L IPID, PSAS W RFX, CMP #### [facility] [address] VLDL CHOLESTEROL 53 mg/dL Normal [facility] Comment on above: Order Comment: PT FA STED 12 HOURS Reason for Exam Well adult exam;Lipid disorder;Medication monitoring encount Reason for Exam Lipid disorder Performed By: #### L IPID, PSAS W RFX, CMP #### [facility] [address] [place] [address] No Panel InformationOrdered By: Maribeth Vuong on 07-12-2022 Estimated GFR (CKD-EPI) > 60.0 mL/Min [facility] Creatinine Clearance (Chem N/A [facility] PSA Screen (Yearly) w/Reflex on 07-12-2022 PSA Screen (Yearly) w/Reflex 0.670 ng/mL Normal 0.000-4.000 [facility] Comment on above: Order Comment: Reaso n for Exam Well adult exam;Prostate cancer screening Is patient <50 yrs? Medicare does not pay <50.: Y What is the date of the last PSA Screen?: N/A Is Medicare the insurance?: N Did you verify eligibility (Dx Time) check TestViewGp: YES TO ALL Result Comment: PERF ORMED BY: [facility] [address] [place] [address] PATHOLOGIST DRAFTER ELECTRONIC ALEM GARCIA M.D. Performed By: #### L IPID, PSAS W RFX, CMP #### [facility] [address] Potassium [Moles/volume] in Serum or PlasmaOrdered By: Maribeth Vuong on 07-12-2022 Potassium [Moles/Vol] 4.3 mmol/L 3.5-5.1 [facility] [place] Prostate specific Ag [Mass/v olume] in Serum or PlasmaOrdered By: Maribeth Vuong on 07-12-2022 Prostate specific Ag [Mass/Vol] 0.670 ng/mL 0.000-4.000 [facility] Protein [Mass/volume] in Ser um or PlasmaOrdered By: Maribeth Vuong on 07-12-2022 Protein [Mass/Vol] 7.3 g/dL 6.4-8.9 [facility] Serum or plasma albumin/glob ulin mass ratioOrdered By: Maribeth Vuong on 07-12-2022 Albumin/Globulin [Mass ratio] 1.8 {ratio} [facility] Serum or plasma anion gap de terminationOrdered By: Maribeth Vuong on 07-12-2022 Anion gap [Moles/Vol] 11.8 mmol/L 6.0-15.0 [facility] Serum or plasma high density lipoprotein (HDL) cholesterol measurementOrdered By: Maribeth Vuong on 07-12-2022 Cholesterol in HDL [Mass/Vol] 37 mg/dL 29-71 [facility] Comment on above: HDL CHOL ATP-III CLA SSIFICATION Cardiovascular RiskHDL > or equal to 60 mg/dL LOWHDL < 40 mg/dL HIGH Serum or plasma total choles terol/high density lipoprotein (HDL) cholesterol mass ratOrdered By: Maribeth Vuong on 07-12-2022 Cholesterol.total/Patti sterol in HDL [Mass ratio] 8.0 {ratio} <5.0 [facility] Sodium [Moles/volume] in Ser um or PlasmaOrdered By: Maribeth Vuong on 07-12-2022 Sodium [Moles/Vol] 141 mmol/L 136-145 [facility] Triglyceride [Mass/volume] i n Serum or PlasmaOrdered By: Maribeth Vuong on 07-12-2022 Triglyceride [Mass/Vol] 266 mg/dL 0-149 [facility] Comment on above: TRIG ATP III CLASSIF ICATIONTRIG less than 150 mg/dL NormalTRIG 150-199 mg/dL Borderline highTRIG 200-500 mg/dL High TRIG greater than 500 mg/dL Very highStandard traceable to the Center for Disease Conrtrol and Prevention (CDC) test method. Urea nitrogen [Mass/volume] in Serum or PlasmaOrdered By: Maribeth Vuong on 07-12-2022 Urea nitrogen [Mass/Vol] 12 mg/dL 10-29 [facility] XR LSPINE 2_3 VIEWSon 2022 XR LSPINE [...] by: DAMARIS ESPINOSA Date: 2022-07-02 14:57 Normal [facility] MRI PELVIS WO CONon 06-28-19 MRI [...] by: DAMARIS ESPINOSA Date: 2022-06-27 09:45 Normal [facility] MRI LSPINE WO CONon 06-27-19 23 MRI LSBUCKS WO CON EXAMINATION: MRI LSPINE WO CON [...] by: RENE LAUREN Date: 2022-06-26 15:24 Normal [facility] XR lumbar spine AP/LAT/FLX/E XTon 01-08-2021 XR lumbar spine AP/LAT/FLX/EXT [facility] Other XR lumbar spine AP/LAT/FLX/EXT [facility] Other XR lumbar spine AP/LAT/FLX/EXT [address] [place] [address] [facility] Other XR lumbar spine AP/LAT/FLX/[place] [address] [facility] Other XR lumbar spine AP/LAT/FLX/EXT XRay Report [facility] Other XR lumbar spine AP/LAT/FLX/EXT Signed [facility] Other XR lumbar spine AP/LAT/FLX/EXT Patient: Neal Parker MR#: [id number] [facility] Other XR lumbar spine AP/LAT/FLX/EXT 206 [facility] Other XR lumbar spine AP/LAT/FLX/EXT : 1980 Acct:[id number] [facility] Other XR lumbar spine AP/LAT/FLX/EXT Age/Sex: 40 / M ADM Date: 01/08/21 [facility] Other XR lumbar spine AP/LAT/FLX/EXT Loc: [facility] Room: Type: [facility] Other XR lumbar spine AP/LAT/FLX/EXT Attending Dr: Charles Solares MD [facility] Other XR lumbar spine AP/LAT/FLX/EXT Ordering Provider: Charles Solares MD [facility] Other XR lumbar spine AP/LAT/FLX/EXT Date of Service: 01/08/21 [facility] Other XR lumbar spine AP/LAT/FLX/EXT XR/XR lumbar spine AP/LAT/FLX/EXT: Other spondylosis with radiculopathy, [facility] Other XR lumbar spine AP/LAT/FLX/EXT lumbar region [facility] Other XR lumbar spine AP/LAT/FLX/EXT Copies to: Charles Solares MD [facility] Other XR lumbar spine AP/LAT/FLX/EXT Lumbar spine 01/08/2021. [facility] Other XR lumbar spine AP/LAT/FLX/EXT CLINICAL DATA: Low back pain. [facility] Other XR lumbar spine AP/LAT/FLX/EXT FINDINGS: 4 standing views of the lumbar spine were obtained including lateral views in the [facility] Other XR lumbar spine AP/LAT/FLX/EXT neutral, flexion, and extension positions. This examination is compared with a prior study 04/14/2019. [facility] Other XR lumbar spine AP/LAT/FLX/EXT There are stable postsurgical changes related to lumbosacral spinal fusion. There is also stable [facility] Other XR lumbar spine AP/LAT/FLX/EXT anterior malalignment of L5 on S1. Mild posterior malalignment of L2 on L3 is noted. Overall [facility] Other XR lumbar spine AP/LAT/FLX/EXT vertebral alignment does not significantly change with limited flexion or limited extension. Disc [facility] Other XR lumbar spine AP/LAT/FLX/EXT space narrowing is identified. Minimal degenerative changes are seen. [facility] Other XR lumbar spine AP/LAT/FLX/EXT XR/XR lumbar spine AP/LAT/FLX/EXT [facility] Other XR lumbar spine AP/LAT/FLX/EXT IMPRESSION: Stable postsurgical changes and mild vertebral malalignment at the lumbosacral junction. [facility] Other XR lumbar spine AP/LAT/FLX/EXT Mild posterior malalignment of L2 on L3. No instability with limited flexion or extension. Disc [facility] Other XR lumbar spine AP/LAT/FLX/EXT space narrowing and minimal degenerative changes. [facility] Other XR lumbar spine AP/LAT/FLX/EXT Impression dictated by: Jude Stock Jr., M.D.01/08/2021 2:59 PM [facility] Other XR lumbar spine AP/LAT/FLX/EXT Dictation Location: [place] [address] [facility] Other XR lumbar spine AP/LAT/FLX/EXT Transcribed By: JIL 01/08/21 [facility] Other XR lumbar spine AP/LAT/FLX/EXT Dictated By: Jude Stock Jr, MD 01/08/21 [facility] Other XR lumbar spine AP/LAT/FLX/EXT Signed By: [facility] Other XR lumbar spine AP/LAT/FLX/EXT 01/08/21 [facility] Other Erasto 06-09-2018 CNOV Office Visit (NSFRVW ) NEAL PARKER ([id number]) 1980 M Date Time Provider Department 06/09/18 3:40 PM PHI RENE NSFRVW During your visit today, we recorded the following information about you: Temperature Pulse Blood pressure Weight 98.8 degrees 85/minute 136/84 108.9 kg Height 1.778 m Phi Rene MD 06/09/2018 5:08 PM Signed CC : Patient presents with a chief complaint of low back pain and upper back pain HPI : Mr. Parker is a 37 year old male with complaints of above. He had fractured his back in October of 2014. He went to stand up, couldn't stand. He went to a number of different doctors. Was dx'd with L5 fx. Had surgery by Dr. Robbie Wakefield [facility] in [place]. He felt that he was better in [...] bone Plan : Per Dr. 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 Author Type: Physician Type: Progress Notes Filed: 06/09/2018 5:08 PM Note Text: CC : Patient presents with a chief complaint of low back pain and upper back pain HPI : Mr. Parker is a 37 year old male with complaints of above. He had fractured his back in October of 2014. He went to stand up, couldn't stand. He went to a number of different doctors. Was dx'd with L5 fx. Had surgery by Dr. Robbie Wakefield, [facility] in [place]. 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 Hx of back problems and surgeries. Took two [place], flexeril, celebrex prior to coming. Needs another surgery for back. History of Present Illness 37-year-old white male presents emergency room with his and complaints of worsening lower back pain after bending over to light his heater in his shop. Patient has had prior back surgery by Dr. Sen in [place] March 14, 2015. Patient states he has [...] Anxious mood & affect. Integumentary: Warm, Dry, Mucarabones Medical Decision Making X-rays did not demonstrate [...] WASSIL In 3 days 04/04/2018 EST [address] [place] [address] Business (1) Additional Instructions: Call tomorrow for [...] made to ensure accuracy, however, inadvertently computerized house shorer mistakes may be present. Patient was treated and evaluated by the physician education administrative assistant. The attending physician was in the [...] acute fracture. Signed By: Andreas Cordova MD [facility] Comment on above: Result Comment: Elec tronically Signed By: Abdelrahman Olvera PA-C\.br\Date and Time Signed: 04/01/18 12:55 EST\.br\Electronically Co-Signed By: Lashay Li DO\.br\Date and Time Co-Signed: 04/07/18 16:20 EST Coding Summary.on 04-02-2018 Coding Summary. CODING DATE: 04/02/2018 FINAL [facility] STATUS: Home (Routine DC) PAYOR: Commercial Insurance APC DESCRIPTION 5522 Level 2 Imaging without Contrast ADMIT DX: REASON FOR VISIT DX: M54.5 Low back pain FINAL DX: PRINCIPAL: M54.5 Low back pain SECONDARY: M53.3 Sacrococcygeal disorders, not elsewhere classified Z79.899 Other half-way (current) drug therapy PYMT PROC APC STAT DESCRIPTION DOCTOR NAME DATE NOTE: The code number assigned matches the documented diagnosis and / or procedure in the patient's chart. However, the narrative phrase printed from the coding software may appear abbreviated, or result in slightly different terminology. Coded By: Laila Mcghee Date Saved: 04/02/2018 11:01 am Normal [facility] ED Clinical Summaryon 2017 ED Clinical Summary [place] [id number] ED Clinical Summary Person Information Name: NEAL PARKER/[facility] Age: 37 Years : 1980 12:00 AM Sex: Male Language: Surinamese PCP: RENE MORRELL DO Marital Status: Visit [...] 04/01/2018 1:01 PM 04/01/2018 1:01 PM ADDRESS: [address] [place] [id number] PHYS DOC NOTES: MEDICAL INFORMATION: Prescriptions Given: [...] Follow up: With: Address: When: RENE MORRELL [address] [address] 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 Do not sit, drive, or educational administration teacher one place for more than 30 minutes [...] pillow under your knees. ? Only take gvlp-bvz-xjozljq or prescription medicines as directed by your caregiver. Qwac-jsg-rufuhgw medicines to reduce pain and inflammation are [...] Document Reviewed: 07/26/2014 ExitCare? Patient Information ?2015 [facility]. This information is not intended to replace [...] the first months of treatment. Only take exwc-pwy-vqqthqs or prescription medicines for pain, discomfort, or [...] Document Reviewed: 07/17/2009 ExitCare? Patient Information ?2014 [facility]. This information is not intended to replace advice given to you by your health care provider. Make sure you discuss any questions you have with your health care provider. Normal [facility] ED Patient Summaryon 018 ED Patient Summary [address] [address] Patient Discharge Instructions Person Information Name: NEAL PARKER Age: 37 Years Arrival Date: 04/01/2018 11:05 AM Discharge Diagnosis: Lumbosacral pain Primary Care Physician: RENE MORRELL DO Provider Information Primary Provider: Guillermo DO, Lashay Advanced Appellate [address] Clerk:Abdelrahman Olvera PA-C The exam and treatment you received in the Emergency Department were for an urgent problem and are not intended as complete care. It is important that you follow up with a doctor, nurse practitioner, or physician?s education administrative assistant for ongoing care. If your symptoms become worse or you do not improve as expected and you are unable to reach your usual health care provider, you should return to the Emergency Department. We are available 24 hours a day. NEAL PARKER has been given the following list of patient education materials, prescriptions and follow-up instructions: Follow-up Instructions: With: Address: When: [place] [id number] [facility] (1) In 3 days 04/04/2018 Comments: [...] opioids can be used to help relieve ehqzlhkb-nb-rribvt pain and are often prescribed following a [...] be struggling with addiction, tell your health daycare provider and ask for guidance or call SAMHSA?S National Helpline at 8-410-480-TLLA. e Source: US Department of Health and Human Services/Center for Disease Control & Prevention [facility] Medications Given: Medication Dose Route [...] Comment: Pharmacy Information: Thank you for choosing [facility] Patient Education Materials: Radicular Pain Radicular pain [...] the first months of treatment. Only take sqyd-fvt-vcrvohi or prescription medicines for pain, discomfort, or [...] Document Reviewed: 07/17/2009 ExitCare? Patient Information ?2014 [facility]. This information is not intended to replace [...] stressful on the back to sit or educational administration teacher one place. Do not sit, drive, or educational administration teacher one place for more than 30 minutes [...] pillow under your knees. ? Only take ddmv-mbd-dthrqdj or prescription medicines as directed by your caregiver. Zgmr-fmr-txouodv medicines to reduce pain and inflammation are [...] Document Reviewed: 07/26/2014 ExitCare? Patient Information ?2015 [employer]. This information is not intended to replace advice given to you by your health care provider. Make sure you discuss any questions you have with your health care provider. ELENA Bolden RUSSELL , have received the following patient education materials/instruction s and have verbalized understanding: Patient Education Materials: Radicular Pain; Back Pain, Adult Follow-up Instructions: With: Address: When: [place] [id number] [facility] (1) In 3 days 04/04/2018 Comments: [...] Signature Date Clinician/Nurse Signature Date 04/01/18 13:01:03 [place] Progress Note-Nurseon 2017 Protein mass conc Patient: NEAL PARKER Age: 37 years Sex: Male : 1980 [...] No further needs at this time. Normal [facility] XR Spine Lumbosacral Minimum 4 Viewson [...] MD Transcribed by: DARSHAN Technologist: DEAN Smalls [facility] Vital Signs Date Time Vital Sign Value Performing Clinician Facility 09-15-2023 10:190400 Body height 177.8 cm [facility] 09-15-2023 10:19-0400 Body mass index (BMI) [Ratio] 37.3 kg/m2 [facility] 09-15-2023 10:19-0400 Body weight 117.93 kg [facility] 09-15-2023 10:19-0400 Diastolic blood pressure 84 mm[Hg] [facility] 09-15-2023 10:19-0400 Heart rate 88 /min [facility] 09-15-2023 10:19-0400 SaO2% (BldA) [Mass fraction] 97 % [facility] 09-15-2023 10:19-0400 Systolic blood pressure 124 mm[Hg] [facility] 07-21-2023 07:59-0400 Body height 177.8 cm DO Maribeth Vuong Work Phone: [facility] 07-21-2023 07:59-0400 Body mass index (BMI) [Ratio] 40.1 kg/m2 DO Maribeth Vuong Work Phone: [facility] 07-21-2023 07:59-0400 Body weight 127 kg DO Maribeth Vuong Work Phone: [facility] 07-21-2023 07:59-0400 Diastolic blood pressure 86 mm[Hg] DO Maribeth Vuong Work Phone: [facility] 07-21-2023 07:59-0400 Heart rate 76 /min DO Maribeth Vuong Work Phone: [facility] 07-21-2023 07:59-0400 SaO2% (BldA) [Mass fraction] 98 % DO Maribeth Vuong Work Phone: [facility] 07-21-2023 07:59-0400 Systolic blood pressure 128 mm[Hg] DO Maribeth Vuong Work Phone: [facility] 01-17-2023 09:00-0400 Body height 177.8 cm Maribeth Carolann Other [facility] Other 01-17-2023 09:00-0400 Body mass index (BMI) [Ratio] 39.17 kg/m2 Maribeth Carolann Other [facility] Other 01-17-2023 09:00-0400 Body temperature 97.7 [degF] Maribeth Vuong Other [facility] Other 01-17-2023 09:00-0400 Body weight 123.83 kg Maribeth Woodymer Other [facility] Other 01-17-2023 09:00-0400 Diastolic blood pressure 78 mm[Hg] Maribeth Vuong Other [facility] Other 01-17-2023 09:00-0400 SaO2% (BldA) [Mass fraction] 98 % Maribeth Vuong Other [facility] Other 01-17-2023 09:00-0400 Systolic blood pressure 112 mm[Hg] Maribeth Vuong Other [facility] Other 12-18-2022 09:45-0400 Body height 177.8 cm Maribeth Vuong Other [facility] Other 12-18-2022 09:45-0400 Body mass index (BMI) [Ratio] 37.73 kg/m2 Maribeth Vuong Other [facility] Other 12-18-2022 09:45-0400 Body weight 119.3 kg Maribeth Vuong Other [facility] Other 12-18-2022 09:45-0400 Diastolic blood pressure 86 mm[Hg] Maribeth Vuong Other [facility] Other 12-18-2022 09:45-0400 Respiratory rate 18 /min Maribeth Vuong Other [facility] Other 12-18-2022 09:45-0400 SaO2% (BldA) [Mass fraction] 95 % Maribeth Vuong Other [facility] Other 12-18-2022 09:45-0400 Systolic blood pressure 126 mm[Hg] Maribeth Vuong Other [facility] Other 12-12-2022 08:00-0400 Body height 177.8 cm Maribeth Vuong Other [facility] Other 12-12-2022 08:00-0400 Body mass index (BMI) [Ratio] 37.73 kg/m2 Maribeth Vuong Other [facility] Other 12-12-2022 08:00-0400 Body temperature 98.5 [degF] Maribeth Vuong Other [facility] Other 12-12-2022 08:00-0400 Body weight 119.3 kg Maribeth Vuong Other [facility] Other 12-12-2022 08:00-0400 Diastolic blood pressure 102 mm[Hg] Maribeth Vuong Other [facility] Other 12-12-2022 08:00-0400 SaO2% (BldA) [Mass fraction] 96 % Maribeth Vuong Other [facility] Other 12-12-2022 08:00-0400 Systolic blood pressure 150 mm[Hg] Maribeth Vuong Other [facility] Other 09-26-2022 10:22-0400 Diastolic blood pressure 108 mm[Hg] DO Maribeth Vuong Work Phone: [facility] 09-26-2022 10:22-0400 Heart rate 74 /min DO Maribeth Vuong Work Phone: [facility] 09-26-2022 10:22-0400 Respiratory rate 16 /min DO Maribeth Vuong Work Phone: [facility] 09-26-2022 10:22-0400 SaO2% (BldA) [Mass fraction] 98 % DO Maribeth Vuong Work Phone: [facility] 09-26-2022 10:22-0400 Systolic blood pressure 156 mm[Hg] DO Maribeth Vuong Work Phone: [facility] 09-26-2022 08:26-0400 Body height 175.26 cm DO Maribeth Vuong Work Phone: [facility] 09-26-2022 08:26-0400 Body temperature 98.5 [degF] DO Maribeth Vuong Work Phone: [facility] 09-26-2022 08:26-0400 Body weight 113.39 kg DO Maribeth Vuong Work Phone: [facility] 09-11-2022 09:45-0400 Body height 177.8 cm Maribeth Vuong Other [facility] Other 09-11-2022 09:45-0400 Body mass index (BMI) [Ratio] 35.37 kg/m2 Maribeth Vuong Other [facility] Other 09-11-2022 09:45-0400 Body weight 111.81 kg Maribeth Woodymer Other [facility] Other 09-11-2022 09:45-0400 Diastolic blood pressure 88 mm[Hg] Maribeth Vuong Other [facility] Other 09-11-2022 09:45-0400 Respiratory rate 18 /min Maribeth Vuong Other [facility] Other 09-11-2022 09:45-0400 SaO2% (BldA) [Mass fraction] 98 % Maribeth Vuong Other [facility] Other 09-11-2022 09:45-0400 Systolic blood pressure 142 mm[Hg] Maribeth Vuong Other [facility] Other 07-24-2022 10:30-0400 Body height 177.8 cm Igor Orr Other [facility] Other 07-24-2022 10:30-0400 Body mass index (BMI) [Ratio] 35.58 kg/m2 Igor Castroovanner Other [facility] Other 07-24-2022 10:30-0400 Body weight 112.49 kg Igor Orr Other [facility] Other 07-24-2022 10:30-0400 Diastolic blood pressure 132 mm[Hg] Igor Scovanner Other [facility] Other 07-24-2022 10:30-0400 Systolic blood pressure 187 mm[Hg] Igor Erazoovanlucille Other [facility] Other 07-15-2022 12:15-0400 Body height 177.8 cm Maribeth Vuong Other [facility] Other 07-15-2022 12:15-0400 Body mass index (BMI) [Ratio] 35.58 kg/m2 Maribeth Vuong Other [facility] Other 07-15-2022 12:15-0400 Body temperature 98.1 [degF] Maribeth Vuong Other [facility] Other 07-15-2022 12:15-0400 Body weight 112.49 kg Maribeth Vuong Other [facility] Other 07-15-2022 12:15-0400 Diastolic blood pressure 110 mm[Hg] Maribeth Vuong Other [facility] Other 07-15-2022 12:15-0400 SaO2% (BldA) [Mass fraction] 97 % Maribeth Vuong Other [facility] Other 07-15-2022 12:15-0400 Systolic blood pressure 156 mm[Hg] Maribeth Vuong Other [facility] Other 01-04-2022 12:15-0400 Body height 177.8 cm Maribeth Vuong Other [facility] Other 01-04-2022 12:15-0400 Body mass index (BMI) [Ratio] 34.39 kg/m2 Maribeth Vuong Other [facility] Other 01-04-2022 12:15-0400 Body weight 108.73 kg Maribeth Vuong Other [facility] Other 01-04-2022 12:15-0400 Diastolic blood pressure 86 mm[Hg] Maribeth Vuong Other [facility] Other 01-04-2022 12:15-0400 Respiratory rate 18 /min Maribeth Vuong Other [facility] Other 01-04-2022 12:15-0400 SaO2% (BldA) [Mass fraction] 98 % Maribeth Vuong Other [facility] Other 01-04-2022 12:15-0400 Systolic blood pressure 136 mm[Hg] Maribeth Vuong Other [facility] Other 06-22-2021 10:00-0400 Body height 177.8 cm Maribeth Vuong Other [facility] Other 06-22-2021 10:00-0400 Body mass index (BMI) [Ratio] 34.16 kg/m2 Maribeth Vuong Other [facility] Other 06-22-2021 10:00-0400 Body weight 108 kg Maribeth Vuong Other [facility] Other 06-22-2021 10:00-0400 Diastolic blood pressure 78 mm[Hg] Maribeth Vuong Other [facility] Other 06-22-2021 10:00-0400 Respiratory rate 18 /min Maribeth Vuong Other [facility] Other 06-22-2021 10:00-0400 SaO2% (BldA) [Mass fraction] 95 % Maribeth Vunog Other [facility] Other 06-22-2021 10:00-0400 Systolic blood pressure 118 mm[Hg] Maribeth Vuong Other [facility] Other 03-08-2021 12:15-0500 Body height 177.8 cm Charles Solares Other [facility] Other 03-08-2021 12:15-0500 Body mass index (BMI) [Ratio] 33.72 kg/m2 Charles Solares Other [facility] Other 03-08-2021 12:15-0500 Body weight 106.6 kg Charles Solares Other [facility] Other 02-12-2021 11:00-0500 Body height 177.8 cm Maribeth Vuong Other [facility] Other 02-12-2021 11:00-0500 Body mass index (BMI) [Ratio] 33.37 kg/m2 Maribeth Vuong Other [facility] Other 02-12-2021 11:00-0500 Body temperature 98.3 [degF] Maribeth Vuong Other [facility] Other 02-12-2021 11:00-0500 Body weight 105.51 kg Maribeth Vuong Other [facility] Other 02-12-2021 11:00-0500 Diastolic blood pressure 88 mm[Hg] Maribeth Vuong Other [facility] Other 02-12-2021 11:00-0500 Respiratory rate 18 /min Maribeth Vuong Other [facility] Other 02-12-2021 11:00-0500 SaO2% (BldA) [Mass fraction] 99 % Maribeth Vuong Other [facility] Other 02-12-2021 11:00-0500 Systolic blood pressure 134 mm[Hg] Maribeth Vuong Other [facility] Other 02-01-2021 11:45-0400 Body height 177.8 cm Maribeth Vuong Other [facility] Other 02-01-2021 11:45-0400 Body mass index (BMI) [Ratio] 35.48 kg/m2 Maribeth Vuong Other [facility] Other 02-01-2021 11:45-0400 Body temperature 98.2 [degF] Maribeth Vuong Other [facility] Other 02-01-2021 11:45-0400 Body weight 112.18 kg Maribeth Vuong Other [facility] Other 02-01-2021 11:45-0400 Diastolic blood pressure 86 mm[Hg] Maribeth Vuong Other [facility] Other 02-01-2021 11:45-0400 Respiratory rate 18 /min Maribeth Vuong Other [facility] Other 02-01-2021 11:45-0400 SaO2% (BldA) [Mass fraction] 97 % Maribeth Vuong Other [facility] Other 02-01-2021 11:45-0400 Systolic blood pressure 136 mm[Hg] Maribeth Vuong Other [facility] Other Encounters Encounter Date Encounter Type Care Provider Facility Start: 09-30-2023 End: 10-02-2023 Evaluation and management of inpatient Diaz Valdovinos MD Facility:[facility] Start: 09-25-2023 End: 09-25-2023 ambulatory Diaz Valdovinos MD Facility:[facility] Start: 09-15-2023 End: 09-15-2023 ambulatory [facility] Work Phone: Start: 09-15-2023 End: 09-15-2023 Patient encounter procedure [facility] [place] Work Phone: Start: 09-10-2023 End: 09-10-2023 ambulatory Diaz Valdovinos MD Facility:[facility] Start: 07-21-2023 End: 07-21-2023 ambulatory DO Maribeth Vuong Work Phone: [facility] Work Phone: Start: 07-21-2023 End: 07-21-2023 Patient encounter procedure DO Maribeth Vuong Work Phone: [facility] [place] Work Phone: Start: 06-03-2023 End: 06-03-2023 Patient encounter procedure DO Maribeth Vuong Work Phone: [facility] [place] [facility] Work Phone: Start: 05-29-2023 Non-patient / Non-visit DO Maribeth Vuong Work Phone: [facility] Work Phone: Start: 03-13-2023 End: 03-13-2023 ambulatory Maribeth Vuong Other [employer] [employer] Other Start: 03-13-2023 Telephone encounter Maribeth Mercer [facility] Start: 02-05-2023 End: 02-05-2023 ambulatory Maribeth Vuong Other [employer] [employer] Other Start: 02-05-2023 Telephone encounter Maribeth Mer[facility] [place] Start: 01-17-2023 End: 01-17-2023 ambulatory Maribeth Vuong Other [facility] Other Start: 01-17-2023 Encounter for genera l adult medical examination without abnormal findings Maribeth Carolann [facility] [place] Start: 01-17-2023 Periodic preventive med est patient 40-64yrs Maribeth Vuong [facility] [place] Start: 12-18-2022 (Procedure) Short Maribeth Carolann [facility] [place] Start: 12-18-2022 End: 12-18-2022 ambulatory Maribeth Vuong Other [facility] Other Start: 12-12-2022 End: 12-12-2022 ambulatory Maribeth Vuong Other [facility] Other Start: 12-12-2022 Office outpatient visit 15 minutes Maribeth Vuong [facility] [place] Start: 12-05-2022 End: 12-05-2022 ambulatory Maribeth Vuong Other [facility] Other Start: 12-05-2022 Telephone encounter Maribeth Mercer [facility] [place] Start: 09-28-2022 End: 09-28-2022 ambulatory Nash Cardenas Other [place] [employer] Other Start: 09-28-2022 Telephone encounter Nash Cardenas [facility] Start: 09-26-2022 End: 09-26-2022 ambulatory Nash Cardenas Facility:[facility] Start: 09-26-2022 End: 09-26-2022 Admission to same day surgery center DO Maribeth Vuong Work Phone: [facility] Work Phone: Start: 09-26-2022 End: 09-26-2022 ambulatory DO Maribeth Vuong Work Phone: [facility] Work Phone: Start: 09-11-2022 (Procedure) Short Maribeth Vuong [facility] [place] Start: 09-11-2022 End: 09-11-2022 ambulatory Maribeth Vuong Other [facility] Other Start: 09-10-2022 End: 09-10-2022 ambulatory Maribeth Vuong Other [facility] Other Start: 09-10-2022 Telephone encounter Maribeth Carolann [facility] [place] Start: 09-03-2022 End: 09-03-2022 ambulatory NARENDRANMAXIMUS LAKKEYMIPATHY . Facility: Start: 08-20-2022 End: 08-20-2022 ambulatory Maribeth Vuong Facility:[facility] Start: 08-20-2022 End: 08-20-2022 ambulatory DO Maribeth Vuong Work Phone: [facility] Work Phone: Start: 08-20-2022 End: 08-20-2022 Patient encounter procedure DO Maribeth Vuong Work Phone: [facility] [place] Start: 08-16-2022 End: 08-17-2022 ambulatory NARENDRANATH LAKSHMIPATHY . Facility:[facility] Start: 08-02-2022 End: 08-02-2022 ambulatory Maribeth Vuong Other [facility] Other Start: 08-02-2022 Telephone encounter Maribeth Mercer [facility] [place] Start: 07-30-2022 End: 07-30-2022 ambulatory NARENDRANATH LAKSHMIPATHY . Facility:[facility] Start: 07-24-2022 End: 07-24-2022 ambulatory Igor Orr Other [facility] Other Start: 07-24-2022 Office outpatient ne w 30 minutes Igor Orr [facility] Start: 07-23-2022 End: 07-24-2022 ambulatory NARENDRANATH LAKSHMIPATHY . Facility:[facility] Start: 07-16-2022 End: 07-16-2022 ambulatory Maribeth Vuong Other [facility] Other Start: 07-16-2022 Telephone encounter Maribeth Mercer [facility] [place] Start: 07-15-2022 Office outpatient visit 25 minutes Maribeth Vuong [facility] [place] Start: 07-15-2022 Telephone encounter Maribeth Carolann Syl[facility] [place] Start: 07-15-2022 End: 07-15-2022 ambulatory DO Maribeth Vuong Work Phone: [employer] Other Start: 07-15-2022 End: 07-15-2022 Patient encounter procedure DO Maribeth Carolann Work Phone: [facility] Start: 07-12-2022 End: 07-12-2022 ambulatory Maribeth Vuong Facility:[facility] Start: 07-12-2022 Encounter for genera l adult medical examination without abnormal findings Maribeth Vuong [facility] Start: 07-12-2022 End: 07-12-2022 ambulatory DO Maribeth Vuong Work Phone: [facility] Work Phone: Start: 07-12-2022 End: 07-12-2022 Patient encounter procedure DO Maribeth Vuong Work Phone: [facility] [place] Work Phone: Start: 07-02-2022 End: 07-03-2022 ambulatory [...] 01-04-2022 End: 01-04-2022 ambulatory Maribeth Vuong Other [facility] [employer] [facility] Other Start: 01-04-2022 Encounter for genera l adult medical examination without abnormal findings Maribeth Vuong [facility] Start: 01-04-2022 Periodic preventive med est patient 40-64yrs Maribeth Vunog [facility] [place] Start: 12-13-2021 End: 12-14-[address] JESSICA JOEL . Facility:[facility] Start: 10-31-2021 End: 11-01-[address] JESSICA JOEL . Facility:[facility] Start: 10-03-2021 End: 10-04-2021 ambulatory BRIT SCHUSTER . Facility:[facility] Start: 09-29-2021 End: 09-29-2021 ambulatory MARIBETH VUONG Facility:[facility] Start: 08-17-2021 End: 08-17-2021 ambulatory Charles Solares Other [facility] Other Start: 08-17-2021 Telephone encounter Charles Hernandezer [facility] [place] Start: 08-07-2021 End: 08-07-2021 ambulatory Charles Solares Other [facility] Other Start: 08-07-2021 Telephone encounter Charles Solares [facility] [place] [facility] Start: 07-13-2021 End: 07-13-2021 ambulatory Maribeth Vuong Other [facility] Other Start: 07-13-2021 Telephone encounter Maribeth Vuong [facility] [place] Start: 07-09-2021 End: 07-09-2021 ambulatory Charles Solares Other [facility] Other Start: 07-09-2021 Office outpatient visit 25 minutes Charles Solares [facility] [place] Start: 06-22-2021 End: 06-22-2021 ambulatory Maribeth Vuong Other [facility] Other Start: 06-22-2021 Office outpatient visit 15 minutes Maribeth Vuong [facility] [place] Start: 06-06-2021 End: 06-06-2021 ambulatory Charles Hernandezer Other [facility] Other Start: 06-06-2021 Office outpatient visit 25 minutes Charles Felter [facility] [place] Start: 05-29-2021 End: 05-29-2021 ambulatory Maribeth Vuong Other [facility] Other Start: 05-29-2021 Telephone encounter Maribeth Mercer [facility] [place] Start: 05-22-2021 End: 05-22-2021 ambulatory Maribeth Vuong Other [facility] Other Start: 05-22-2021 Telephone encounter Maribeth Mercer [facility] [place] Start: 05-21-2021 End: 05-21-2021 ambulatory Maribeth Vuong Other [facility] Other Start: 05-21-2021 Telephone encounter Maribeth Mercer [facility] [place] Start: 05-08-2021 End: 05-08-2021 ambulatory Charles Hernandezer Other [facility] Other Start: 05-08-2021 Office outpatient visit 25 minutes Charles Felter [facility] [place] Start: 04-12-2021 End: 04-12-2021 ambulatory Charles Felter Other [facility] Other Start: 04-12-2021 Office outpatient visit 25 minutes Charles Felter [facility] [place] Start: 03-08-2021 End: 03-08-2021 ambulatory Charles Felter Other [facility] Other Start: 03-08-2021 Office outpatient visit 25 minutes Charles Felter [facility] [place] Start: 02-28-2021 End: 02-28-2021 ambulatory Maribeth Vuong Other [facility] Other Start: 02-28-2021 Telephone encounter Maribeth Mercer [facility] [place] Start: 02-12-2021 End: 02-12-2021 ambulatory Maribeth Vuong Other [facility] Other Start: 02-12-2021 Office outpatient visit 15 minutes Maribeth Vuong [facility] Start: 02-05-2021 Office outpatient visit 25 minutes Charles Solares [facility] [place] Start: 02-01-2021 Office outpatient visit 15 minutes Maribeth Woodymer [facility] [place] Start: 01-08-2021 Office outpatient visit 25 minutes Charles Solares [facility] [place] Start: 06-09-2018 End: 06-10-2018 Patient encounter procedure PHI IDA RENE [facility] Start: 04-01-2018 End: 04-01-2018 Emergency department patient visit Lashay Li Facility[facility] Procedures Date Procedure Procedure Detail Performing Clinician Start: 06-03-2023 Plain X-ray of left hand DO Maribeth Woodymer Work Phone: Start: 09-26-2022 Colonoscopy DO Maribeth Vuong Work Phone: Start: 07-15-2022 Diagnostic radiograp hy of abdomen DO Maribeth Vuong Work Phone: Plan of Treatment Date Care Activity Detail Author Start: 09-26-2022 [facility] Patient Education Hemorrhoids (DC) [facility] Work Phone: Immunizations Immunization Date Immunization Notes Care Provider Macrina brunson 12-07-2020 COVID-19 Vaccine Corey - Documentation Purposes Only Charles Solares Other [facility] 03-25-2019 Depo-Medrol 80 mg Charles lewis Other [facility] Other 12-11-2017 Kenalog -40 mg Charles Solares Other [facility] Other Payers Date Payer Category Payer Unknown 2022 Self-pay [id number] 1979 Unknown [id number] 2.16.84 0.1.694845.3.579.2.727 1979 Unknown [id number] 2.16.84 0.1.284056.3.579.2.593 1979 Unknown [id number] 2.16.84 0.1.624170.3.579.2.593 1979 Unknown [id number] 2.16.84 0.1.120954.3.579.2.593 1979 Unknown [id number] 2.16.84 0.1.062331.3.579.2.593 1979 Unknown [id number] 2.16.84 0.1.706990.3.579.2.593 1979 Unknown [id number] 2.16.84 0.1.474416.3.579.2.593 1979 Unknown [id number] 2.16.84 0.1.323354.3.579.2.593 1979 Unknown [id number] 2.16.84 0.1.696906.3.579.2.593 1979 Unknown [id number] 2.16.84 0.1.718605.3.579.2.593 1979 Unknown [id number] 2.16.84 0.1.392977.3.579.2.593 1979 Unknown [id number] 2.16.84 0.1.964872.3.579.2.593 1979 Unknown [id number] 2.16.84 0.1.947870.3.579.2.593 1979 Unknown [id number] 2.16.84 0.1.235355.3.579.2.593 1979 Unknown [id number] 2.16.84 0.1.066754.3.579.2.593 1979 Unknown [id number] 2.16.84 0.1.173581.3.579.2.593 1979 Unknown [id number] 2.16.84 0.1.384704.3.579.2.593 1979 Unknown [id number] 2.16. 840.1.152189.3.579.2.196 1979 Unknown [id number] 2.16. 840.1.711448.3.579.2.196 1979 Unknown [id number] 2.16. 840.1.298799.3.579.2.196 1959 Medicaid [id number] 1959 Unknown [id number] 1959 Unknown [id number] Blue Cross Blue Shield [id number] 2.16.840.1.888232.19 Unknown [facility] [id number] Unknown [id number] 2.16.8 40.1.659415.3.579.2.531 Unknown [id number] 2.16.8 40.1.359045.3.579.2.531 Unknown [id number] 2.16.8 40.1.495585.3.579.2.531 Unknown [id number] 2.16.8 40.1.351458.3.579.2.531 Social History Date Type Detail Facility Unknown if ever smoked [facility] Other Sex Assigned At Sex Assigned At Bir th [facility] Other Start: 04-13-2019 Tobacco smoking status MEIS Smoker (finding) [facility] Start: 1980 Sex Assigned At Male F [facility] Start: 09-26-2022 Tobacco smoking status [facility] Current some day smoker [facility] Goals Date Patient Goal Desired Activity /State Clinical Notes 01-08-2021 to 10-02-2023 Note Date & Type Note Facility 10-02-2023 Note Date of Admission 09/30/2023 Date of Discharge 10/02/2023 Discharge Diagnoses Lumbar stenosis L5-S1 s/p L5-S1 fusion L5-S1 pseudoarthrosis Reason for Admission Revision fusion and WILL L5-S1 Procedures & Treatment Revision fusion and WILL L5-S1 Hospital Course Patient underwent uncomplicated Removal of hardware and revision fusion/instrumentation L5-S1 procedure on 09/30/2023 with Discharge Assessment In good condition Plan He will be discharged to home. PRN narcotic medication for pain and stool softeners as well as muscle relaxers. We will see him back in clinic in 6 weeks for radiographic and clinical evaluation. Electronically signed by Homar Rodgers MD, Jr 10/02/23 05:07 EDT [facility] 09-30-2023 Note Operative Report DATE OF PROCEDURE: 09/30/2023 PREOPERATIVE DIAGNOSES: 1. Prior L5-S1 decompression and fusion with nonunion and complaints of low back pain 2. Right lumbar radiculopathy POSTOPERATIVE DIAGNOSES: 1. Prior L5-S1 decompression and fusion with nonunion and complaints of low back pain 2. Right lumbar radiculopathy OPERATION PERFORMED: 1. L5-S1 exploration of fusion 2. L5-S1 removal of instrumentation 3. L5-S1 revision right foraminotomies of right L5 and S1 nerve roots along with total facetectomy at L5-S1 on the right for complete decompression of the right L5 nerve root 4. L5-S1 posterior spinal revision fusion. 5. L5-S1 posterior spinal instrumentation, Cortera, Xtant instrumentation 6. Use of local autograft bone, crushed cancellous chips and 24cc BioAdapt Bridge SURGEON: Diaz Valdovinos MD [employer] HAND: MAGGIE Duran PA-C assisted throughout the procedure with positioning, draping, retraction, wound closure and dressing application. ANESTHESIA: General. INDICATIONS: This is a 42-year-old male who is status post L5-S1 posterior spinal fusion done elsewhere with refractory back and primarily right leg pain from a nonunion and screw loosening at L5-S1. Patient had failed full conservative therapy including medication management, physical therapy, and injections with pain management. Due to the persistence of symptoms and reduction in the ADLs, patient elected surgical treatment. Patient, therefore, understood indications for the surgery as well as its risks, benefits, and alternatives. These risks include but are not limited to paralysis, infection, hematoma, dural tear, nerve root injury, nonunion, DVT/PE, [place], stroke, etc. All questions were answered. Informed consent was obtained. OPERATIVE PROCEDURE: The patient was taken to the operating room by the Anesthesiology Service and had satisfactory general anesthesia. A first-generation cephalosporin was given within 1 hour of surgical incision. 2 gm of cefazolin was given IV. Venous thromboembolic prophylaxis was performed with sequential devices. A rodney was placed using standard sterile technique. The patient was then positioned prone on a standard OSI frame with the abdomen hanging free and all bony prominences well padded. The low back was then prepped and draped in its entirety in the usual sterile fashion. Before incision, a formal time-out was taken per protocol. We next took a midline longitudinal approach and performed subperiosteal dissection out to the instrumentation and fusion at L5-S1 and transverse process at L5 and S1 on the left. Intraoperative localization of level was confirmed using patient's hardware along the right. We then explored his prior fusion at L5-S1. Patient was found to have a pseduoarthrosis bilaterally. We then removed the screws at L5-S1 on the right which were found to be grossly loose and easily removed. Curettes were then used to remove scar tissue at L5-S1 from his prior operation. In order to get further lateral to the right L5 nerve root, total facetectomy was then performed at L5-S1 on the right. In this way, the right L5 nerve root was completely visualized and foraminized. Kerrison's were then used to perform revision foraminotomies of the right L5 and S1 nerve roots. In this way, we completed revision decompression at L5-S1 with revision foraminotomies of the right L5 and S1 nerve roots. Satisfied with this, we then turned our attention to perform spinal instrumentation and posterolateral fusion. Using anatomic landmarks and guided by direct visualization of the pedicles from within the canal, pedicle screws were placed bilaterally at L5 and S1. All the screws were completely interosseous as determined by bony palpation except for the tip of the S1 screw which remained bicortical by design. Before the screws were inserted, the transverse processes were decorticated with a high-speed bur at L5 and S1. Local autograft bone combined with crushed cancellous chips was then placed over the decorticated elements bilaterally. BioAdapt Bridge was placed on top of this for extra bulk. The screws were then inserted which were under tapped by 1 mm. Two rods were placed from L5-S1, set screws engaged and tightened down to their final torque. Everything was tightened down. A very rigid construct was achieved. Final x-ray was taken, demonstrated good position of the spine and all of the implants. Satisfied with this, we then achieved hemostasis. We then copiously irrigated the wound with Irrisept. We then inserted a Hemovac drain through a separate stab incision. The wound was then closed in layer with interrupted 1 and 2-0 Vicryl sutures and dusted with 2 g vancomycin powder. A 3-0 Monocryl was used for the skin. The skin edges were sealed with Dermabond. A dry sterile dressing was applied. The patient was then returned to the hospital bed, extubated, and taken to the recovery room in stable condition. Spinal cord monitoring remained stable (more content not included)... [facility] 09-29-2023 Note Chief Complaint Back pain History of Present Illness The patient is a 42-year-old male with complaints of constant low back pain that radiates to shooting pain into his buttocks and perineal region, he did have pain radiating down the posterior legs but had a RFA in February, which helped with his shooting pain. He also has burning and sogs-[id number] along the right lateral foot and toes. Patient reports symptoms initially began 9 years ago after fracturing his L5. He then had surgery in 2015 but states he has been diagnosed with a nonfusion. Current VAS score of 8 out of 10. Modifying factors include Tylenol, meloxicam, Percocet, physical therapy in 2015, chiropractic treatment, injections with pain management. These modalities rated really no relief of his symptoms. Former smoker. He has had a prior L5-S1 posterior spinal fusion in 2015. Review of Systems Constitutional: No fevers, chills Respiratory: No shortness of breath, cough Cardiovascular: No chest pain, palpitations Gastrointestinal: No nausea, vomiting, incontinence Genitourinary: No dysuria or incontinence Musculoskeletal: (+) back pain, leg pain Neurologic: (+) numbness/tingling, no h/a Psychiatric: No anxiety, depression Physical Exam Vital signs: Ht 5'10 Wt 260 lbs General: Alert and oriented, well nourished, no acute distress. Antalgic gait Head: Atraumatic, normocephalic Lungs: No respiratory distress. CTA bilaterally, no wheezes Heart: RRR, no murmur Abdomen: Soft, non-tender, non-distended, normal bowel sounds Musculoskeletal: Limited lumbar ROM. TTP lumbar spine. 5/5 muscle strength bilateral lower extremities Skin: well-healed lumbar incision Neurologic: Awake, alert, and oriented X3, sensory intact bilateral lower extremities Psychiatric: Cooperative, appropriate mood and affect Additional Vitals No qualifying data available. Assessment/Plan Assessment: 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 Plan: Lumbar hardware removal (right side) with L5-S1 revision fusion using iliac crest bone harvest Problem List/Past Medical History Ongoing Ankle swelling Chronic back pain Daily nausea Degenerative arthritis of knee, bilateral Environmental allergies Hand arthritis Hypertension Knee pain, bilateral Seasonal allergies Skin pigmentation disorder Historical No qualifying data Procedure/Surgical History Radio-frequency ablation system Ambulatory surgery (2002) ORIF - Open reduction and internal fixation of fracture (2002) Fusion of lumbar spine (03/15/2015) Colonoscopy (2023) Medications Inpatient No active inpatient medications Home Acidophilus Probiotic Blend oral capsule, 1 caps, Oral, HS (at bedtime) B 100 Complex, 1 tabs, Oral, Daily Benadryl 25 mg oral tablet, 50 mg= 2 tabs, Oral, BID, PRN Caltrate 600 + D, 1 tabs, Oral, BID cyclobenzaprine 10 mg oral tablet, 10 mg= 1 tabs, Oral, TID, PRN Glucosamine Chondroitin, 2 caps, Oral, Daily losartan-hydrochlorothiazide 50mg-12.5mg oral tablet, 1 tabs, Oral, qAM meloxicam 15 mg oral tablet, 15 mg= 1 tabs, Oral, Daily pregabalin 50 mg oral capsule, 50 mg= 1 caps, Oral, BID Tylenol Extra Strength 500 mg oral tablet, 1000 mg= 2 tabs, Oral, q6hr, PRN Zofran, 8 mg, Oral, Once, PRN ZyrTEC 10 mg oral tablet, 10 mg= 1 tabs, Oral, Daily, PRN Allergies gabapentin (Fatigue, Nausea, Dizziness) zonisamide (Diarrhea, Nausea and vomiting) Social History Alcohol Current, 1-2 times per year Home/Environment Lives with Alone. Living situation: Residential home. EX- ENDER, Home equipment: Walker/Cane. 1 DOG Nutrition/Health Regular, Caffeine intake amount: 1 CUP COFFEE DAILY. Substance Abuse Current, Marijuana, Daily Tobacco Former smoker, quit more than 1 year ago Use:. Cigarettes, Started age 15 Years. Stopped age 41 Years. Lab Results Test Name Test Result Date/Time ABO/Rh A POS 09/10/2023 09:19 EDT Antibody Screen Negative [facility]SC 09/10/2023 09:19 EDT Microbiology - Current Encounter No qualifying data available. Diagnostic Results CT and MRI Lumbar Spine done at [place] Electronically signed by Qamar Recio PA-C 09/29/23 09:58 EDT Electronically signed by Diaz Valdovinos MD 09/30/2023 09:41 EDT [facility] 03-13-2023 Evaluation note Encounter Date Diagnosis Assessment Notes Mar, Primary osteoarthritis of both first carpometacarpal joints (ICD-10 - M18.0) [facility] Other 11-01-2023 Evaluation note* Encounter Date Diagnosis Assessment Notes Treatment Notes Treatment Clinical Notes Feb, Primary hypertension (ICD-10 - I10) [facility] Other 10-13-2023 Evaluation note* Encounter Date Diagnosis [...] Jan, Medication monitoring encounter (ICD-10 - Z51.81) [facility] Other 09-13-2023 Evaluation note* Encounter Date Diagnosis Assessment Notes Treatment Notes Treatment Clinical Notes Dec, Primary osteoarthrit is of first carpometacarpal joint of left hand (ICD-10 - M18.12) [facility] Other 09-07-2023 Evaluation note* Encounter Date Diagnosis [...] he has any issues with the medicine. [facility] Other 06-22-2023 Procedure [facility]06-07-2023 Evaluation note* Encounter Date Diagnosis Assessment Notes Treatment Notes Treatment Clinical Notes Sep, Primary osteoarthrit is of both first carpometacarpal joints (ICD-10 - M18.0) [facility] Other 04-19-2023 Evaluation note* Encounter Date Diagnosis [...] colonoscopy to rule out luminal etiologies made [facility] Other 04-18-2023 NoteCONSULTATION CONSULTATION DATE: 07/23/2022 TO: [...] our patients to inform us about any glmt-gge-zfxhfbg medications or herbal remedies/nutritional supplements/alternative remedies. 2. [...] with their primary care provider.[facility] [id number] Evaluation note * Encounter Date Diagnosis Assessment Notes Treatment Notes Treatment Clinical Notes Jul, Generalized abdominal pain (ICD-10 - R10.84) [facility] Other 04-10-2023 Evaluation note* Encounter Date Diagnosis [...] Jul, Medication monitoring encounter (ICD-10 - Z51.81) [facility] Other 04-10-2023 Evaluation note* Encounter Date Diagnosis Assessment Notes Treatment Notes Treatment Clinical Notes Jul, Slow transit constipation (ICD-10 - K59.01) [facility] Other 03-28-2023 NoteCONSULTATION CONSULTATION DATE: 07/02/2022 TO: [...] as his lumbar spine films.[facility] [id number] Note CONSULTATION CONSULTATION DATE: 06/13/2022 HISTORY OF [...] relief. He has been seen both at [place] and [facility] in the past, and received [...] under the care of Dr. Joshua in [place]. He is unwilling to try Lyrica due [...] in agreement to this plan.[facility] [id number] NoteCONSULTATION CONSULTATION DATE: 03/14/2022 HISTORY OF PRESENT [...] months' time, unless otherwise indicated.[facility] [id number] NoteCONSULTATION CONSULTATION DATE: 02/07/2022 HISTORY OF PRESENT [...] in the office post procedure.[facility] [id number] Evaluation note* Encounter Date Diagnosis Assessment Notes [...] Dec, Prostate cancer screening (ICD-10 - Z12.5) [facility] Other 09-08-2022 NoteCONSULTATION CONSULTATION DATE: 12/13/2021 HISTORY [...] and all questions were answered.[facility] [id number] Note CONSULTATION PROCEDURE DATE: 10/31/2021 PREOPERATIVE DIAGNOSIS: [...] followed up in the office.[facility] [id number] Note CONSULTATION CONSULTATION DATE: 10/03/2021 This is [...] will be seen in the clinic. [facility] Signed and Approved by: BRIT SCHUSTER . 10/11/2021 16:28:00[facility]04-04-2022 Evaluation note* Encounter Date Diagnosis Assessment [...] Patient notes prior issues with [facility] billing department and states he is uncomfortable [...] note writ ten by Km Cervantes MA, Radiation Therapy Technician. Edited and approved by Dr. Charles Solares MD. [facility] Other 03-18-2022 Evaluation note* Encounter Date Diagnosis [...] and he is to continue with it. [facility] Other 03-02-2022 Evaluation note* Encounter Date Diagnosis [...] note writ ten by Km Cervantes CMA, Radiation Therapy Technician. Edited and approved by Dr. Charles Solares MD. [facility] Other 02-15-2022 Evaluation note* Encounter Date Diagnosis Assessment Notes Treatment Notes Treatment Clinical Notes May, Cigarette nicotine dependence without complication (ICD-10 - F17.210) [facility] Other 02-14-2022 Evaluation note* Encounter Date Diagnosis Assessment Notes Treatment Notes Treatment Clinical Notes May, Other spondylosis with radiculopathy, lumbar region (ICD-10 - M47.26) [facility] Other 02-01-2022 Evaluation note* Encounter Date Diagnosis [...] was refilled today. Saliva sample performed through [facility] today, will await confirmatory results. Opiod contract updated at this time. May, Other chronic pain (ICD-10 - G89.29) May, Other Above note writ ten by Sonya Dawson LPN, Radiation Therapy Technician. Edited and approved by Dr. Charles Solares MD. [facility] Other 01-06-2022 Evaluation note* Encounter Date Diagnosis [...] note writ ten by Km Cervantes CMA, Radiation Therapy Technician. Edited and approved by Dr. Charles Solares MD. [facility] Other 12-02-2021 Evaluation note* Encounter Date Diagnosis [...] Above note written by Sonya Dawson LPN, Radiation Therapy Technician. Edited and approved by Dr. Charles Solares MD. [facility] Other 11-08-2021 Evaluation note* Encounter Date Diagnosis [...] Patient voiced understanding agrees with this plan. [facility] Other 11-01-2021 Evaluation note* Encounter Date Diagnosis [...] note writ ten by Donita Henson CMA, Radiation Therapy Technician. Edited and approved by Dr. Charles Solares MD. [facility] Other 10-28-2021 Evaluation note* Encounter Date Diagnosis [...] message to Dr. Solares passing this along. [facility] Other 10-04-2021 Evaluation note* Encounter Date Diagnosis [...] educated regarding the risks and benefits of half-way opioid use. He understands the associated risks with this medication and agrees that it provides reasonable benefit in regards to his pain control and level of function. Oxycodone Acetaminophen was refilled today. Jan, Other chronic pain (ICD-10 - G89.29) [facility] Other Evaluation noteNo InformationNort [facility] Other Evaluation noteNo assessment information available [facility] Work Phone: Evaluation note* Diagnosis Onset Date Resolution Status Osteoarthritis of carpometac arpal joint of left thumb acute Primary osteoarthritis, left hand acute BPH (benign prostatic hyperplasia) chronic Hemorrhoid chronic Other spondylosis with radiculopathy, lumbar region chronic Blood present in stool nonea waive [facility] Work Phone: Evaluation note* Diagnosis Onset Date Resolution Status BPH (benign prostatic hyperplasia) chronic Hemorrhoid chronic Other spondylosis with radiculopathy, lumbar region chronic Blood present in stool nonea ctive Other spondylosis with radiculopathy, lumbar region chronic Preoperative clearance nonea [facility] Work Phone: History and physical note Author Nash Cardenas [facility] September 26, 2022 9:39am Note Date/Time September 26, 2022 9:39 am [facility] [address] [place] [address] Gastroenterology H&P Signed Patient: Neal Parker MR#: [id number] : 1980 Acct:[id number] Age/Sex: 41 / M Adm Date: 3 Loc: Room: Type: [facility] Attending Dr: Nash Cardenas MD Copies to: MD Maribeth Mcdermott, DO Date of Service: 09/26/2022 HISTORY & [...] By: <Electronically signed by Nash Cardenas MD> 09/26/22938 [facility] Work Phone: [place] general Narrative - Reported* Type Description Date Medical History Hx spinal fusion Medical History Lumbar radiculopathy Medical History Trigger point Surgical History L5 S1 fusion 2014 Surgical History Left lower leg surgery (multipl e fractures) Surgical History foreign body excision right mid dle finger Hospitalization History pneumonia as [facility] Other Hisiv[facility] general Narrative - Reported* Type Description Date Medical History Hx spinal fusion Medical History Lumbar radiculopathy Medical History Trigger point Surgical History L5 S1 fusion 2014 Surgical History Left lower leg surgery (multipl e fractures) Surgical History foreign body excision right mid dle finger Surgical History lumbar facet nerve b lock injection - Dr. Saldivar in [place] 11/2022 Hospitalization History pneumonia as [facility] Other Hisdkgs general Narrative - Reported* Type Description Date Medical History Hx spinal fusion Medical History Lumbar radiculopathy Medical History Trigger point Surgical History L5 S1 fusion 2014 Surgical History Left lower leg surgery (multipl e fractures) Surgical History foreign body excision right mid dle finger Surgical History lumbar facet nerve b lock injection - Dr. Saldivar [place] 11/2022 Surgical History R side nerve ablation 01/2023 Hospitalization History pneumonia as [facility] Other Hospital Discharge instructions Additional Instructions DISCHARGE [...] years. -Follow up with PCP. -Office number [phone].[facility] Work Phone: Reason for visit NarrativePatient here at the request of Dr. Vuong for evaluation & treatment of abdominal pain, change in bowel habits, weight loss, rectal bleeding.[facility] Other Reason for visit NarrativeProcedure appt and DNR-A signNort [facility] Other Summary Purpose Family History No Family [...] Reason for Referral Reason Dr. Villanueva to [facility] er surgical options, steroid injections not providing long lasting benefit Diagnosis 1 Primary osteoarthrit is of both first carpometacarpal joints (M18.0) Referral Organization [facility] Family Nisha Santos Referring Provider First Name Maribeth Referring Provider Last Name Carolann Referring Provider Specialty Family Prac patito Referred Organization [facility] Referred [place] [address] [place] [place],[address] Referred Provider Specialty ORTHOPEDIC S URGEON Referral Priority Routine Reason * Waiting for appt CT and KUB normal, generalized pain of unclear etiology Diagnosis 1 Generalized abdomina l pain (R10.84) Referral Organization [facility] Nisha Santos Referring Provider First Name Maribeth Referring Provider Last Name Carolann Referring Provider Specialty Family Prac patito Referred Organization [facility] Gastroenterolo gy Referred Provider Dwayne Salas Referred Address [address] ,[place], [place],[address] Referred Provider Specialty Gastroentero logy Referral Priority [...] continuous use of opioids (F11.90) Referral Organization [facility] Nisha Santos Referring Provider First Name Maribeth Referring Provider Last Name Carolann Referring Provider Specialty Family Prac patito Referred Organization [facility] Referred Address [address] [facility] Referred Provider Specialty Pain Medicin e Referral Priority Routine General Notes Rebeca Vivar 11:08:53 AM >referral received and faxed Clinical Notes P- [phone] Chief Complaint and Reason for Visit Chief [...] radiculopathy, lumbar region Blood present in stool Chief Complaint Incontinence, forms for medicaid Pre-Surgical clearance/ Dr. Aquino Reason for Visit BPH (benign prostati c hyperplasia) Hemorrhoid Other spondylosis with radiculopathy, lumbar region Blood present in stool Other spondylosis with radiculopathy, lumbar region Preoperative clearance Additional Source Comments (unrecognized sect ion and content) No Status Records FoundNo Status Records FoundNo Status Records FoundNo Status Records FoundNo Status Records Found INFORMATION SOURCE (unrecogn ized section and content) DATE CREATED AUTHOR 05/25/2018 [facility] DATE CREATED AUTHOR AUTHOR'S ORGANIZ ATION 06/11/2018 [facility] DATE CREATED AUTHOR AUTHOR'S ORGANIZ ATION 09/15/2022 [facility] DATE CREATED AUTHOR AUTHOR'S ORGANIZ ATION 10/04/2022 [facility] DATE CREATED AUTHOR AUTHOR'S ORGANIZ ATION 10/11/2023 [facility] REASON FOR VISIT (unrecogniz ed section and content) 1 MOback pain getting worse, pain management not working4 WK RECHECKDISCUSS DISABILITY OPTIONSLab results1 MO1 MONTH RECHECKCHANTIX1 month Follow upscript requestpaperwork1 MONTH FOLLOW UPCHANTIX refill/discuss back concerns1 MONTHNo InformationNo InformationPROCEDURE NOTES1 year Follow up/ AWVAbdominal Pain/ incontinencenew medication.ReferralPain ManagementB/L thumb steroid inj./ sign DNR-AORDERS PER DR Han bpelevated BP at PM in [place], no sxinjection L thumb1 year Follow upLosartan/HCTZsteroid [...] Care Provi aisha, Attending Provider Active Start: September 15, 2023 End: September 15, 2023 Team Status: Active Member Role Status Dates Maribeth Vuong , DO Primary Care Provider Active Start: May 29, 2023 Patricia Thakur LPN Attending Provider Active Start: May 29, 2023 Team Status: Inactive Member Role Status Dates Maribeth Vuong , DO Primary Care Provider Active Start: June [...] BE BASED ON THE PRIMARY CLINICAL RECORDS. Nursing Home [facility]. provides no warranty or guarantee of the accuracy or completeness of information in this document.
--- NOTE | 2023-10-29 08:34 | P.CN_ITS ---
Consult Note: HPI Data of Consult Patient: known to practice within the last 3 years Requesting Physician: Brianna Wallace NP Primary Care Provider: MARIBETH VUONG Consult Narrative Reason for consult: f/u Narrative: Pedro Pablo Irene a pleasant 42 year old male presents for evaluation and management of chronic back pain and neck pain. Patient has had chronic low back pain greater than 10 years and was denied surgery by previous NS, however recently we referred him to Dr Pérez who performed lumbar fusion 09-30-23 with >90% improvement in pain and functional ability ongoing per patient, wonderful outcomes. Patient continues to utilize PRN tylenol, PRN flexeril, and lyrica 50mg BID with significant improvement. Overall continues to have moderate to severe neck and joint pain, has stopped mobic since pre-surgery per Dr Pérez recommendation. Patient reports neck pain 4/10 today increasing to 9/10 with bilateral numbness tingling of upper extremities. Recent left and tight T4/5 T5/6 RFA providing 100% improvement of thoracic pain ongoing. cc:: CC: Brianna Wallace NP Review of Systems ROS Status of ROS 10 or more systems reviewed and unremark able except as noted in history and below Musculoskeletal Reports: neck pain and joint pain PFSH PFSH Medical History Fracture of left lower leg ?S82.92XA - Unspecified fracture of left lower leg, initial encounter for closed fracture (ICD-10) Upper back pain ?M54.9 - Dorsalgia, unspecified (ICD-10) Neck pain ?M54.2 - Cervicalgia (ICD-10) Low back pain ?M54.50 - Low back pain, unspecified (ICD-10) Former smoker ?Z87.891 - Personal history of nicotine dependence (ICD-10) Surgical History S/P lumbar spine operation ?Z98.890 - Other specified postprocedural states (ICD-10) Meds Home Medications and Allergies Home Medications ?Medication ?Instructions ?Recorded ?Confirmed ?Type acetaminophen 500 mg tablet 1,000 mg PO Q6H 09/13/22 09/09/23 History (Tylenol Extra Strength) diphenhydramine HCl 25 mg tablet 50 mg PO DAILY 09/13/22 09/09/23 History (Allergy (diphenhydramine)) meloxicam 15 mg tablet 15 mg PO DAILY 09/13/22 09/09/23 History losartan 50 mg-hydrochlorothiazide tab 01/07/23 History 12.5 mg tablet cyclobenzaprine 10 mg tablet 10 mg PO TID PRN muscle spasm #80 01/22/23 09/09/23 Rx tabs tramadol 50 mg tablet 50 mg PO BID 08/26/23 09/09/23 History Allergies Allergy/AdvReac Type Severity Reaction Status Date / Time gabapentin AdvReac Severe Dizziness Verified 09/09/23 07:22 zonisamide [From [facility]] AdvReac Intermediate Nausea Verified 09/09/23 07:22 Exam Constitutional Documenting provider has reviewed patient's vital signs: yes Common normals: no apparent distress, oriented x3, healthy appearing, alert and well nourished General appearance: cooperative HENMT Common normals: normocephalic, hearing grossly normal bilaterally and moist oral mucous membranes Head and scalp: normocephalic Eye Common normals: PERRL Pupil: PERRL Neck & C-Spine Common normals: full ROM General: normal visual inspection Cervical spine: cervical ROM normal, pain with cervical ROM and cervical spine tenderness Other: negative sprulings strength 5/5 in BUE intermittent numbness tingling weakness of bilateral arms and hands Chest Common normals: inspection of chest normal Respiratory Common normals: normal respiratory effort, no retractions and no use of accessory muscles Back & Pelvis Thoracic spine/upper back: normal to inspection and thoracic ROM normal Other: lumbar bracing present post surgery strength 5/5 in BLE no radiculopathy on exam Extremity Common normals: normal to inspection and full ROM Neuro Common normals: oriented x3, CN's II-XII intact bilaterally, moves all extremities, no focal motor deficits, no sensory deficits noted, deep tendon reflexes 2+ bilaterally and gait normal Sensorium/orientation: alert Gait (neuro): assistive device used cane Motor exam: strength 5/5 throughout and no movement abnormalities noted Psych Common normals: mental status grossly normal, thought process normal, cooperative, affect normal, speech normal and activity/motor behavior normal Speech: normal speech Thought process: normal thought process Results Additional Findings Additional findings: If on a controlled substance or opioids, I have checked an [place] report on this patient and there are no aberrancies noted in the prescribing history.??If on a controlled substance or opioid a drug screen was completed and reviewed within the last year, and if there has not been a drug screen completed we ordered one today to monitor higher risk, state monitored pain medication use. As part of providing excellent, safe, comprehensive care, the following was completed at our patient's visit: 1. A medication reconciliation and review to ensure accurate knowledge of current/active medications, including asking our patients to inform us about any kcvv-nhl-wfrfwkf medications or herbal remedies/nutritional supplements/alternative remedies. 2. A review to specifically ensure our patients have had annual screening for screening for depression, screening for tobacco use, and screening for unhealthy alcohol use. For concerning screenings had a discussion with the patient, provided patient education, and recommended follow-up with primary care provider when appropriate. If patient noted with a risk of falling, they received education on strength, gait, and balance training to prevent future risk of falling. Assessment and Plan Assessment and Plan (1) Thoracic spondylosis: (2) Cervical spondylosis: (3) Cervical radiculopathy: (4) Lumbar stenosis with neurogenic claudication: (5) Lumbar radiculopathy: (6) Status post lumbar spinal fusion: (7) Muscle spasm: (8) Lumbar spondylosis: (9) Marijuana use: Assessment and Plan: NNCP Plan left and right T4-5 T5-6 facet medial branch thermal RFA providing significant relief ongoing continue current medications, tolerating well without side effects continue f/u with Dr Pérez, excellent recovery at this time cervical xray to assess neck pain and cervical radiculopathy f/u 3 months, sooner if needed
== END 2023-10-29 08:01 | disposition home or self-care (01) ==
LOC: PM 08:01
PROVIDERS: Visit Provider Nurse Practitioner
DX: M47.22 Other spondylosis with radiculopathy, cervical region (principal); M47.814 Spondylosis without myelopathy or radiculopathy, thoracic region; M48.062 Spinal stenosis, lumbar region with neurogenic claudication; M62.838 Other muscle spasm; M47.26 Other spondylosis with radiculopathy, lumbar region
CPT/HCPCS: 72050; G0463

== ENCOUNTER 2023-10-29 08:53 | Outpatient (OUT) | payer OTHER, SELFPAY ==
--- NOTE | 2023-10-29 09:00 | XR_ITS ---
The [address] [address] Patient Name: NEAL PARKER MRN: [id number] date: 1980 Sex: M Assigned Patient Location: [facility] Current Patient Location: Accession/Order Number: [id number] Exam Date: 10/29/2023 09:05 Report Date: 10/30/2023 07:23 At the request of: MADDIE FISHER Procedure: XR cervical spine 5V EXAMINATION: XR cervical spine 5V HISTORY: Cervical Radiculopathy COMPARISON: No relevant comparison available. FINDINGS: BONES: Normal alignment of the cervical vertebral bodies with no acute fracture or spondylolisthesis. C7 is not visualized DISC SPACES: Normal. No significant disc height narrowing, subluxation, or endplate abnormality. PARASPINOUS: Negative. No paraspinous abnormality is seen. OTHER: Negative. XR/XR cervical spine 5V IMPRESSION: No acute radiographic abnormality Electronically authenticated by: RENE LAUREN Date: 10/30/2023 07:23
--- OUTSIDE RECORDS SUMMARY | 2023-10-29 09:15 | XMS_ITS | CCD ---
Author Organization [facility] CliniSyil Care Team Providers Care Arch Support Maker Name Role Phone Lashay Li Admitting Unavailable Lashay Li Attending Unavailable RENE MORRELL Primary Care Unavailable PHI RENE Attending Unavaila Charles Cohen Unavailable Carolann, Maribeth Unavailable Carolann, Maribeth Unavailable Carolann, Maribeth Unavailable Carolann, DO Maribeth Williamson Primary Care Provider Carolann, DO Maribeth Williamson Attending Provider [phone] Igor Orr Unavailable CAROLANN, MARIBETH Primary Care Unavailable LEANDER LAFLEUR Consulting Unavailable LEANDER LAFLEUR Attending Unavailable LEANDER LAFLEUR Admitting Unavailable EVANGELIST LEOS Consulting Unavailable CAROLANN, MARIBETH Primary Care Unavailable TONO ., DR ARMENTA Consulting Unavailable HAY ., DR AMRENTA Attending Unavailable HAY ., DR ARMENTA Admitting [...] Carolann, DO Maribeth N Primary Care Provider [phone] MD Nisha Villanueva Attending Provider St Keri PLEITEZ, Daiz Mercer Attending Unavailabl e Carolann DO, Maribeth Higgins [facility] Harmeet Valdovinos MD, Diaz Mercer Attending Unavailabl e Carolann DO, Maribeth Higgins [facility] Diaz Armenta MD Attending Unavailabl e Carolann DO, Maribeth Higgins [facility] Diaz Armenta MD Admitting Unavailabl e Homar Rodgers Jr Consulting Unavailabl e Qamar Recio PA-C Consulting Unavai labquique Allergies Allergy Classification Reported Allergen(s) Allergy Type Date of Onset Reaction(s) Facility (18 sources) gabapentin; Translations: [gabapentin] Drug Allergy 3 dizziness, sleepy, Drowsy, Drowsy, dizziness, sleepy [facility] (1 source) gabapentin Drug Allergy [facility] Repository (12 sources) zonisamide; Translations: [zonisamide] Drug Allergy 3 diarrhea [facility] (1 source) gabapentin Drug Allergy 3 [facility] Repository (1 source) zonisamide Drug Allergy [address] [place] [address] Repository Medications Current Medications Medication Drug Class(es) [...] Jun, Active take 1 capsule by mo [facility] every twenty-four hours Cymbalta 60 MG [...] take 1 tablet by mouth once daily Losartan-[place] chlorothiazide Active 1 TAB PO Daily July [...] Once a day Active polyethylene glycol 3350 283310 mg / potassium chloride 2970 mg / sodium bicarbonate 6740 mg / sodium chloride 5860 mg / sodium sulfate 01323 mg powder for oral solution (6 sources) [...] 2016 12:00am January 29, 2019 7:38am sennosides, assisted 8.6 mg oral tablet (16 sources) Start: [...] 07-12-2022 Episodic Other aftercare (1 source) Other buttermaker continuous churn (current) drug therapy; Translations: [OTH SNF CURRENT DRUG THERAPY] Onset: 07-17-2022 Episodic Other [...] MDRD (S/P/Bld) [Vol rate/Area] mL/min/{1.73_m2} Normal >=60 [facility] Comment on above: Result Comment: [facility] have implemented the eGFR calculation [...] Age = years Performed By: #### C D:[id number] #### [address] [address] Basic Metabolic Profileon Anion gap [Moles/Vol] 5 mmol/L Normal 4-12 [facility] Comment on above: Performed By: #### C D:[id number] #### [address] [address] Calcium [Mass/Vol] 8.2 mg/dL Low 8.5-10.3 [facility] Comment on above: Performed By: #### C D:[id number] #### [address] [address] Chloride [Moles/Vol] 106 mmol/L Normal 98-110 [facility] Comment on above: Performed By: #### C D:[id number] #### [address] [address] CO2 [Moles/Vol] 27 mmol/L Normal 22-32 [facility] Comment on above: Performed By: #### C D:[id number] #### [address] [address] Creatinine [Mass/Vol] 0.75 mg/dL Normal 0.61-1.24 [facility] Comment on above: Performed By: #### C D:[id number] #### [address] [address] Glucose [Mass/Vol] 88 mg/dL Normal 70-99 [facility] Comment on above: Performed By: #### C D:[id number] #### [address] [address] Potassium [Moles/Vol] 3.9 mmol/L Normal 3.4-4.8 [facility] Comment on above: Performed By: #### C D:[id number] #### [address] [address] Sodium [Moles/Vol] 138 mmol/L Normal 133-142 [facility] Comment on above: Performed By: #### C D:[id number] #### [address] [address] Urea nitrogen [Mass/Vol] 13 mg/dL Normal 8-26 [facility] Comment on above: Performed By: #### C D:[id number] #### [address] [address] Urea nitrogen/Creatinine [Mass ratio] 17.3 mg/mg Normal 10.0-20.0 [facility] Comment on above: Performed By: #### C D:[id number] #### [address] [address] CBC w/ Diffon 10-02-2023 Erythrocyte distribution width (RBC) [Ratio] 14.4 % Normal 11.6-14.8 [facility] Comment on above: Performed By: #### E GFR #### [address] [address] Hematocrit (Bld) [Volume fraction] 37.0 % Low 41.0-53.0 [facility] Comment on above: Performed By: #### E GFR #### [address] [address] Hemoglobin (Bld) [Mass/Vol] 12.1 g/dL Low 13.5-17.5 [facility] Comment on above: Performed By: #### E GFR #### [address] [address] MCH (RBC) [Entitic mass] 30.2 pg Normal 27.0-35.0 [facility] Comment on above: Performed By: #### E GFR #### [address] [address] MCHC 32.6 % Normal 31.0-37.0 [facility] Comment on above: Performed By: #### E GFR #### [place] [id number] MCV (RBC) [Entitic vol] 92.6 fL Normal 80.0-100.0 [facility] Comment on above: Performed By: #### E GFR #### [place] [id number] Platelet 174 x10*3/mcL Normal 150-450 [facility] Comment on above: Performed By: #### E GFR #### [address] [address] Platelet mean volume (Bld) [Entitic vol] 10.7 fL High 6.7-10.6 [facility] Comment on above: Performed By: #### E GFR #### [address] [address] RBC 4.00 x10*6/mcL Low 4.30-5.80 [facility] Comment on above: Performed By: #### E GFR #### [place] [id number] WBC 11.9 x10*3/mcL High 4.5-11.0 [facility] Comment on above: Performed By: #### E GFR #### [address] [address] Diff Autoon 10-02-2023 Baso Absolute 0.0 x10*3/mcL Normal 0.0-0.2 [facility] Comment on above: Performed By: #### C D:[id number] #### [address] [address] Basophils/100 WBC (Bld) 0.2 % Normal 0.0-1.2 [facility] Comment on above: Performed By: #### C D:[id number] #### [address] [address] Eos Absolute 0.2 x10*3/mcL Normal 0.0-0.4 [facility] Comment on above: Performed By: #### C D:[id number] #### [address] [address] Eosinophils/100 WBC (Bld) 1.5 % Normal 0.0-6.1 [facility] Comment on above: Performed By: #### C D:[id number] #### [address] [address] Lymph Absolute 5.1 x10*3/mcL High 1.0-4.8 [facility] Comment on above: Performed By: #### C D:[id number] #### [address] [address] Lymphocytes/100 WBC (Bld) 42.9 % High 27.2-40.8 [facility] Comment on above: Performed By: #### C D:[id number] #### [address] [address] [place] Absolute 0.9 x10*3/mcL Normal 0.3-1.1 [facility] Comment on above: Performed By: #### C D:[id number] #### [address] [address] Monocytes/100 WBC (Bld) 7.1 % Normal 4.7-13.9 [facility] Comment on above: Performed By: #### C D:[id number] #### [address] [address] Neutro Absolute 5.7 x10*3/mcL Normal 1.8-7.7 [facility] Comment on above: Performed By: #### C D:[id number] #### [address] [address] Neutro Auto 48.3 % Normal 47.2-70.8 [facility] Comment on above: Performed By: #### C D:[id number] #### [address] [address] Inpatient Clinical Summaryon 10-02-2023 Inpatient Clinical Summary [address] [address] Clinical Summary Person Information Name: Neal Parker Age: 42 Years : 1980 Sex: Male PCP: Maribeth Vuong DO Marital Status: Phone: PCP: Race: White Ethnicity: Not or Language: Citizen Of The [place] Visit Id: Visit Reason: Speciality: Acuity: Enc Type: Inpatient Med Service: Surgery Arrival: 09/30/2023 08:56:12 Discharge: Dispo Type: Address: [address] [place] [phone] Diagnosis: Discharged To: Home Treatments: Devices/Equipment: Professional [...] range between ( 27.2 and 40.8 ) [place] Auto: 7.1 % -- Normal range between [...] range between ( 41.0 and 53.0 ) [place] Absolute: 0.9 x10 MCH: 30.2 pg -- [...] to r (more content not included)... Normal [facility] .eGFRon 10-01-2023 GFR/1.73 sq M.predicted MDRD (S/P/Bld) [Vol rate/Area] mL/min/{1.73_m2} Normal >=60 [facility] Comment on above: Order Comment: Order added by Discern rule Result Comment: [facility] implemented the eGFR calculation [...] years Performed By: #### E GFR #### [address] [address] Basic Metabolic Profileon Calcium [Mass/Vol] 8.4 mg/dL Low 8.5-10.3 [facility] Comment on above: Performed By: #### E GFR #### [address] [address] Anion gap [Moles/Vol] 6 mmol/L Normal 4-12 [facility] Comment on above: Performed By: #### E GFR #### [address] [address] Chloride [Moles/Vol] 107 mmol/L Normal 98-110 [facility] Comment on above: Performed By: #### E GFR #### [address] [address] CO2 [Moles/Vol] 26 mmol/L Normal 22-32 [facility] Comment on above: Performed By: #### E GFR #### [address] [address] Creatinine [Mass/Vol] 0.97 mg/dL Normal 0.61-1.24 [facility] Comment on above: Performed By: #### E GFR #### [address] [address] Glucose [Mass/Vol] 119 mg/dL High 70-99 [facility] Comment on above: Performed By: #### E GFR #### [address] [address] Potassium [Moles/Vol] 4.1 mmol/L Normal 3.4-4.8 [facility] Comment on above: Performed By: #### E GFR #### [address] [address] Sodium [Moles/Vol] 139 mmol/L Normal 133-142 [facility] Comment on above: Performed By: #### E GFR #### [address] [address] Urea nitrogen [Mass/Vol] 15 mg/dL Normal 8-26 [facility] Comment on above: Performed By: #### E GFR #### [address] [address] Urea nitrogen/Creatinine [Mass ratio] 15.5 mg/mg Normal 10.0-20.0 [facility] Comment on above: Performed By: #### E GFR #### [address] [address] CBC w/ Diffon 10-01-2023 Erythrocyte distribution width (RBC) [Ratio] 13.9 % Normal 11.6-14.8 [facility] Comment on above: Performed By: #### E GFR #### [address] [address] Hematocrit (Bld) [Volume fraction] 38.3 % Low 41.0-53.0 [facility] Comment on above: Performed By: #### E GFR #### [address] [address] Hemoglobin (Bld) [Mass/Vol] 12.5 g/dL Low 13.5-17.5 [facility] Comment on above: Performed By: #### E GFR #### [place] [id number] MCH (RBC) [Entitic mass] 30.2 pg Normal 27.0-35.0 [facility] Comment on above: Performed By: #### E GFR #### [place] [id number] MCHC 32.7 % Normal 31.0-37.0 [facility] Comment on above: Performed By: #### E GFR #### [place] [id number] MCV (RBC) [Entitic vol] 92.3 fL Normal 80.0-100.0 [facility] Comment on above: Performed By: #### E GFR #### [place] [address] Platelet 175 x10*3/mcL Normal 150-450 [facility] Comment on above: Performed By: #### E GFR #### [place] [id number] Platelet mean volume (Bld) [Entitic vol] 11.3 fL High 6.7-10.6 [facility] Comment on above: Performed By: #### E GFR #### [place] [id number] RBC 4.15 x10*6/mcL Low 4.30-5.80 [facility] Comment on above: Performed By: #### E GFR #### [place] [id number] WBC 15.0 x10*3/mcL High 4.5-11.0 [facility] Comment on above: Performed By: #### E GFR #### [place] [address] Diff Autoon 10-01-2023 Baso Absolute 0.0 x10*3/mcL Normal 0.0-0.2 [facility] Comment on above: Performed By: #### E GFR #### [address] [address] Basophils/100 WBC (Bld) 0.1 % Normal 0.0-1.2 [facility] Comment on above: Performed By: #### E GFR #### [address] [address] Eos Absolute 0.0 x10*3/mcL Normal 0.0-0.4 [facility] Comment on above: Performed By: #### E GFR #### [address] [address] Eosinophils/100 WBC (Bld) 0.0 % Normal 0.0-6.1 [facility] Comment on above: Performed By: #### E GFR #### [address] [address] Lymph Absolute 1.6 x10*3/mcL Normal 1.0-4.8 [facility] Comment on above: Performed By: #### E GFR #### [address] [address] Lymphocytes/100 WBC (Bld) 10.9 % Low 27.2-40.8 [facility] Comment on above: Performed By: #### E GFR #### [address] [address] [place] Absolute 0.9 x10*3/mcL Normal 0.3-1.1 [facility] Comment on above: Performed By: #### E GFR #### [address] [address] Monocytes/100 WBC (Bld) 6.2 % Normal 4.7-13.9 [facility] Comment on above: Performed By: #### E GFR #### [address] [address] Neutro Absolute 12.4 x10*3/mcL High 1.8-7.7 [facility] Comment on above: Performed By: #### E GFR #### [address] [place] [address] Neutro Auto 82.8 % High 47.2-70.8 [facility] Comment on above: Performed By: #### E GFR #### [address] [address] Orthopedic Progress Noteon 0 10-01-2023 Orthopedic Progress [...] Graf MD, Jr 10/01/23 11:46 EDT Normal [facility] Operative Reporton Operative Report Preoperative Diagnosis 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 Postoperative Diagnosis 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 Operation L5-S1 right HW removal, L5-S1 revision right decompression and revision fusion Surgeon(s) St Keri PLEITEZ, Diaz Mercer (Surgeon - Primary) Globe Mounter Qamar Recio PA-C (Custom Frame Assembler) Anesthesia General Trevor PLEITEZ, Zuleima Maier (Stem Dryer Maintainer) Kurt Nieves (Provider) Estimated Blood Loss 150 mL Urine Output 800.0 mL Findings loose screws Specimen(s) none Complications none Catheters, Drains, Tubes Device: Rodney Tray 16FR Latex Free [id number] Electronically signed by Qamar Recio PA-C 09/30/23 12:16 EDT Normal [facility] XR Spine Lumbosacral 1 View in [...] Electronically Signed in Other Vendor System) Normal [facility] XR Chest 2 Viewson XR Chest [...] Electronically Signed in Other Vendor System) Normal [facility] .eGFRon 09-10-2023 GFR/1.73 sq M.predicted MDRD (S/P/Bld) [Vol rate/Area] mL/min/{1.73_m2} Normal >=60 [facility] Comment on above: Result Comment: [facility] implemented the eGFR calculation [...] years Performed By: #### E GFR #### [facility] [address] [place] [address] ABO/Rhon 09-10-2023 ABO/Rh SD 09/30/23 ABO/Rh: A POS Normal [facility] Comment on above: Performed By: #### A ABRIL #### [facility] (DEFAULT) [address] [place] [address] [facility] (UNKNOWN) [address] [place] [address] ABSC Autoon 09-10-2023 ABSC Auto Negative Normal [facility] Comment on above: Performed By: #### A SA #### [facility] (UNKNOWN) [address] [place] [address] Basic Metabolic Profileon Anion gap [Moles/Vol] 8 mmol/L Normal 4-12 [facility] Comment on above: Performed By: #### C D:[id number] #### [facility] [address] [place] [address] Calcium [Mass/Vol] 10.3 mg/dL Normal 8.5-10.3 [facility] Comment on above: Performed By: #### C D:[id number] #### [facility] [address] [place] [address] Chloride [Moles/Vol] 101 mmol/L Normal 98-110 [facility] Comment on above: Performed By: #### C D:[id number] #### [facility] [address] [place] [address] CO2 [Moles/Vol] 31 mmol/L Normal 22-32 [facility] Comment on above: Performed By: #### C D:[id number] #### [address] [address] Creatinine [Mass/Vol] 1.05 mg/dL Normal 0.61-1.24 [facility] Comment on above: Performed By: #### C D:[id number] #### [address] [address] Glucose [Mass/Vol] 94 mg/dL Normal 70-99 [facility] Comment on above: Performed By: #### C D:[id number] #### [address] [address] Potassium [Moles/Vol] 4.0 mmol/L Normal 3.4-4.8 [facility] Comment on above: Performed By: #### C D:[id number] #### [address] [address] Sodium [Moles/Vol] 140 mmol/L Normal 133-142 [facility] Comment on above: Performed By: #### C D:[id number] #### [address] [address] Urea nitrogen [Mass/Vol] 13 mg/dL Normal 8-26 [facility] Comment on above: Performed By: #### C D:[id number] #### [address] [address] Urea nitrogen/Creatinine [Mass ratio] 12.4 mg/mg Normal 10.0-20.0 [facility] Comment on above: Performed By: #### C D:[id number] #### [address] [address] CBCon 09-10-2023 Erythrocyte distribution width (RBC) [Ratio] 14.1 % Normal 11.6-14.8 [facility] Comment on above: Performed By: #### C D:[id number] #### [address] [address] Hematocrit (Bld) [Volume fraction] 46.6 % Normal 41.0-53.0 [facility] Comment on above: Performed By: #### C D:[id number] #### [address] [address] Hemoglobin (Bld) [Mass/Vol] 15.5 g/dL Normal 13.5-17.5 [facility] Comment on above: Performed By: #### C D:[id number] #### [place] [id number] MCH (RBC) [Entitic mass] 30.9 pg Normal 27.0-35.0 [facility] Comment on above: Performed By: #### C D:[id number] #### [place] [address]38540 MCHC 33.3 % Normal 31.0-37.0 [facility] Comment on above: Performed By: #### C D:[id number] #### [place] [id number] MCV (RBC) [Entitic vol] 92.9 fL Normal 80.0-100.0 B [facility] Comment on above: Performed By: #### C D:[id number] #### [place] [id number] Platelet 191 x10*3/mcL Normal 150-450 [facility] Comment on above: Performed By: #### C D:[id number] #### [address] [address] Platelet mean volume (Bld) [Entitic vol] 11.3 fL High 6.7-10.6 [facility] Comment on above: Performed By: #### C D:[id number] #### [address] [address] RBC 5.02 x10*6/mcL Normal 4.30-5.80 [facility] Comment on above: Performed By: #### C D:[id number] #### [address] [place] [address] WBC 8.2 x10*3/mcL Normal 4.5-11.0 [facility] Comment on above: Performed By: #### C D:[id number] #### [address] [address] MRSA, PCRon 09-10-2023 LAB ONLY Result Called? No Normal B [facility] Comment on above: Performed By: #### E GFR #### [address] [address] Methicillin Resistant Staph aurus(MRSA) Not detected Normal Not Detected [facility] Comment on above: Result Comment: Mut ations or polymorphisms in primer or probe binding regions may affect detection of new or unknown MRSA variants resulting in a false negative. The [employer] Xpert MRSA Assay is a qualitative in [...] clinician. Performed By: #### E GFR #### [address] [address] PTon 09-10-2023 INR Coag (PPP) [Relative time] 0.9 {INR} Normal <=3.5 [facility] Comment on above: Result Comment: INR has no normal range. INR Therapeutic range is: 2.0-3.0 (AF, CVA, TIAs, DVT prophylaxis, acute DVT) 2.5-3.5 (Mech heart valves, recurrent thrombosis/emboli) Performed By: #### P TINR #### [address] [place] [address] PT Coag (PPP) [Time] 9.8 s Normal 9.2-12.0 [facility] Comment on above: Performed By: #### P TINR #### [facility] [address] [place] [address] PTTon 09-10-2023 aPTT Coag (Bld) [Time] 22.0 s Normal 19.5-28.2 [facility] Comment on above: Performed By: #### C D:[id number] #### [facility] [address] [place] [address] Amylaseon 07-15-2022 Amylase [Catalytic activity/Vol] 43 U/L Normal 29-103 [facility] Comment on above: Order Comment: Reaso n for Exam Generalized abdominal pain;Slow transit constipation;Medicat Reason for Exam Generalized abdominal pain;Medication monitoring encounter NOT FASTING. JKW Performed By: #### C BC, POOJA, LIPASE #### [facility] [address] Amylase 43 U/L Normal 29-103 U/L [employer] Other Amylase [Enzymatic activity/ volume] in Serum or PlasmaOrdered By: Maribeth Vuong on 07-15-2022 Amylase [Catalytic activity/Vol] 43 U/L 29-103 [facility] Basophils Auto (Bld) [#/Vol] Ordered By: Maribeth Vuong on 07-15-2022 Basophils (Bld) [#/Vol] 0.0 10*3/uL 0.0-0.2 [facility] Basophils/100 WBC Auto (Bld) Ordered By: Maribeth Vuong on 07-15-2022 Basophils/100 WBC (Bld) 0.5 % . [facility] CBC W MANUAL DIFFon 07-16-19 23 ATYPICAL LYMPH # Normal [facility] Comment on above: Performed By: #### C JEAN ####[facility] [address] [place], [place] [address]MdIbrahima David ATYPICAL LYMPH % Normal [facility] Comment on above: Performed By: #### C JEAN ####[facility] [address] [place] [id number]. Yilan David BAND # 0.1 103/ul Normal 0.0-0.3 [facility] Comment on above: Performed By: #### C JEAN ####[facility] [address] [place] [address]Dr. Yilan David BAND % 1 % Normal 0-5 [facility] Comment on above: Performed By: #### C JEAN ####[facility] [address] [place] [address]Dr. Yilan David BASOM # 0.00 103/ul Normal 0.00-0.10 [facility] Comment on above: Performed By: #### C JEAN ####[facility] [address] [place] [address]Dr. Sydney David BASOM % 0.0 % Critically low 0.2-2.0 [facility] Comment on above: Performed By: #### C JEAN ####[facility] [address] [place] [address]Dr. Yilan David BLAST # Normal [facility] Comment on above: Performed By: #### C JEAN ####[facility] [address] [place] [address]Dr. Yilan David BLAST % Normal [facility] Comment on above: Performed By: #### C JEAN ####[facility] [address] [place] [address]Dr. Yilan David CORRECTED WBC Normal 4.0-11.0 [facility] Comment on above: Performed By: #### C JEAN ####[facility] [address] [place] [address]Dr. Yilan David EOS # 0.24 103/ul Normal 0.00-0.70 [facility] Comment on above: Performed By: #### C JEAN ####[facility] [address] [place], [place] [address]Dr. Yilan David EOS% 3.0 % Normal 0.9-7.0 [facility] Comment on above: Performed By: #### Maya PENA ####[facility] [address] [place], [place] [address]Vw. Sydney David HCT 46.4 % Normal 42.0-54.0 [facility] Comment on above: Performed By: #### Maya PENA ####[facility] [address] [place], [place] [address]Dy. Sydney David HGB 15.4 g/dl Normal 14.0-18.0 [facility] Comment on above: Performed By: #### C JEAN ####[facility] [address] [place] [id number]. Sydney David LYMPHM # 3.36 103/ul Normal 1.20-3.80 [facility] Comment on above: Performed By: #### Maya PENA ####[facility] [address] [place] [id number]. Sydney David LYMPHM% 42.0 % Normal 20.5-60.0 [facility] Comment on above: Performed By: #### Maya PENA ####[facility] [address] [place] [id number]. Sydney David MCH 30.3 pg Normal 25.9-34.0 [facility] Comment on above: Performed By: #### Maya PENA ####[facility] [address] [place] [id number]. Sydney David MCHC 33.2 g/dl Normal 29.9-35.2 [facility] Comment on above: Performed By: #### Maya PENA ####[facility] [address] [place], [place] [address]Si. Sydney David MCV 91.3 fL Normal 80.0-94.0 [facility] Comment on above: Performed By: #### Maya PENA ####[facility] [address] [place] [id number]. Sydney David METAMYELOCYTE # Normal [facility] Comment on above: Performed By: #### Maya PENA ####[facility] [address] [place] [id number]. Keymera David METAMYELOCYTE % Normal [facility] Comment on above: Performed By: #### C JEAN ####[facility] [address] [place] [phone]. Sydney David MONOM# 0.80 103/ul Normal 0.30-0.80 [facility] Comment on above: Performed By: #### C JEAN ####[facility] [address] [place] [id number]. Sydney David MONOM% 10.0 % Normal 1.7-12.0 [facility] Comment on above: Performed By: #### C JEAN ####[facility] [address] [place] [address]Dr. Sydney Frankie MPV 11.8 fL Normal 9.5-13.5 [facility] Comment on above: Performed By: #### C EJAN ####[facility] [address] [place], [place] [id number]. Sydney Frankie MYELOCYTE # Normal [facility] Comment on above: Performed By: #### C JEAN ####[facility] [address] [place], [place] [phone]. Keymera David MYELOCYTE % Normal [facility] Comment on above: Performed By: #### C JEAN ####[facility] [address] [place] [phone]. Sydney David NRBC Normal [facility] Comment on above: Performed By: #### C JEAN ####[facility] [address] [place] [phone]. Keymera Frankie PLT 249 103/ul Normal 150-450 [facility] Comment on above: Performed By: #### C JEAN ####[facility] [address] [place], [place] [id number]. Sydney David RBC 5.08 106/ul Normal 4.70-6.10 [facility] Comment on above: Performed By: #### C JEAN ####[facility] [address] [place], [place] [address]DrIbrahima David RDW 13.1 % Normal 11.0-15.0 [facility] Comment on above: Performed By: #### C ANSONDOLORES ####[facility] [address] [place], [place] [address]ImIbrahima David SEG # 3.52 103/ul Normal 1.40-6.50 [facility] Comment on above: Performed By: #### C ANSONDOLORES ####[facility] [address] [place], [place] [address]YrIbrahima David SEG % 44.0 % Normal 43.0-75.0 [facility] Comment on above: Performed By: #### C ANSONDOLORES ####[facility] [address] [place], [place] [address]PrIbrahima David WBC 8.0 103/ul Normal 4.0-11.0 [facility] Comment on above: Performed By: #### C ANSONDOLORES ####[facility] [address] [place], [place] [address]Aj[address] ABD/PELV W CONon 07-16-19 23 [...] EVANGELIST LEOS Date: 2022-07-15 16:53 Normal [facility] Complete Blood Count Auto Di ffon 07-15-2022 Basophils (Bld) [#/Vol] 0.0 10*3/uL Normal 0.0-0.2 [facility] Comment on above: Order Comment: Reaso n for Exam Medication monitoring encounter Result Comment: PERF ORMED BY: [place] [address] PATHOLOGIST [employer]ING MAILER MACHINE OPERATOR ALEM GARCIA M.D. Performed By: #### C BC, POOJA, LIPASE #### [address] Basophils/100 WBC (Bld) 0.5 % Normal . [facility] Comment on above: Order Comment: Reaso n for Exam Medication monitoring encounter Performed By: #### C BC, POOJA, LIPASE #### [facility] [address] [place] [address] Eosinophils (Bld) [#/Vol] 0.6 10*3/uL High 0.0-0.45 [facility] Comment on above: Order Comment: Reaso n for Exam Medication monitoring encounter Performed By: #### C BC, POOJA, LIPASE #### [address] Eosinophils/100 WBC (Bld) 6.1 % Normal . [facility] Comment on above: Order Comment: Reaso n for Exam Medication monitoring encounter Performed By: #### C BC, POOJA, LIPASE #### [address] Erythrocyte distribution width (RBC) [Ratio] 13.6 % Normal 12.0-14.8 [facility] Comment on above: Order Comment: Reaso n for Exam Medication monitoring encounter Performed By: #### C BC, POOJA, LIPASE #### [address] Hematocrit (Bld) [Volume fraction] 47.4 % Normal 38.8-50.0 [facility] Comment on above: Order Comment: Reaso n for Exam Medication monitoring encounter Performed By: #### C BC, POOJA, LIPASE #### [address] Hemoglobin (Bld) [Mass/Vol] 15.5 g/dL Normal 13.0-17.0 [facility] Comment on above: Order Comment: Reaso n for Exam Medication monitoring encounter Performed By: #### C BC, POOJA, LIPASE #### [address] Lymphocytes (Bld) [#/Vol] 4.3 10*3/uL Normal 1.00-4.8 [facility] Comment on above: Order Comment: Reaso n for Exam Medication monitoring encounter Performed By: #### C BC, POOJA, LIPASE #### [address] Lymphocytes/100 WBC (Bld) 46.5 % Normal . [facility] Comment on above: Order Comment: Reaso n for Exam Medication monitoring encounter Performed By: #### C BC, POOJA, LIPASE #### [address] MCH (RBC) [Entitic mass] 30.2 pg Normal 27.5-35.2 [facility] Comment on above: Order Comment: Reaso n for Exam Medication monitoring encounter Performed By: #### C BC, POOJA, LIPASE #### [address] MCV (RBC) [Entitic vol] 92.3 fL Normal 83.5-101 [facility] Comment on above: Order Comment: Reaso n for Exam Medication monitoring encounter Performed By: #### C BC, POOJA, LIPASE #### [address] Mean Corpuscular HGB Conc 32.7 g/dL Normal 32.5-35.6 [facility] Comment on above: Order Comment: Reaso n for Exam Medication monitoring encounter Performed By: #### C BC, POOJA, LIPASE #### [place] [address] [place] Monocytes (Bld) [#/Vol] 0.8 10*3/uL Normal 0.0-0.8 [facility] Comment on above: Order Comment: Reaso n for Exam Medication monitoring encounter Performed By: #### C BC, POOJA, LIPASE #### [facility] [address] Monocytes/100 WBC (Bld) 8.3 % Normal . [facility] Comment on above: Order Comment: Reaso n for Exam Medication monitoring encounter Performed By: #### C BC, POOJA, LIPASE #### [facility] [address] Neutrophils (Bld) [#/Vol] 3.6 10*3/uL Normal 1.8-7.7 [facility] Comment on above: Order Comment: Reaso n for Exam Medication monitoring encounter Performed By: #### C BC, POOJA, LIPASE #### [address] Neutrophils/100 WBC (Bld) 38.6 % Normal . [facility] Comment on above: Order Comment: Reaso n for Exam Medication monitoring encounter Performed By: #### C BC, POOJA, LIPASE #### [address] NRBC% 0.0 /100{WBC} Normal 0-0.5 [facility] Comment on above: Order Comment: Reaso n for Exam Medication monitoring encounter Performed By: #### C BC, POOJA, LIPASE #### [address] Platelet mean volume (Bld) [Entitic vol] 11.1 fL High 6.6-10.1 [facility] Comment on above: Order Comment: Reaso n for Exam Medication monitoring encounter Performed By: #### C BC, POOJA, LIPASE #### [address] WBC (Bld) [#/Vol] 9.2 10*3/uL Normal 4.1-10.5 [facility] Comment on above: Order Comment: Reaso n for Exam Medication monitoring encounter Performed By: #### C BC, POOJA, LIPASE #### [facility] [address] Basophils (Bld) [#/Vol] 0.815642702 10*3/uL Normal 0.0-0.2 10*3/uL [employer] Other Basophils/100 WBC (Bld) 0.500 % . % N [facility] [employer] Other Eosinophils (Bld) [#/Vol] 0.477615799 10*3/uL High 0.0-0.45 10*3/uL [employer] Other Eosinophils/100 WBC (Bld) 6.100 % . % [employer] Other Erythrocyte distribution width (RBC) [Ratio] 13.600 % Normal 12.0-14.8 % [employer] Other Hematocrit (Bld) [Volume fraction] 47.400 % Normal 38.8-50.0 % [employer] Other Hemoglobin (Bld) [Mass/Vol] 15.562725 g/dL Normal 13.0-17.0 g/dL [employer] Other Lymphocytes (Bld) [#/Vol] 4.904260417 10*3/uL Normal 1.00-4.8 10*3/uL [employer] Other Lymphocytes/100 WBC (Bld) 46.500 % . % [employer] Other MCH (RBC) [Entitic mass] 30.2000 pg Normal 27.5-35.2 pg [employer] Other MCV (RBC) [Entitic vol] 92.3000 fL Normal 83.5-101 fL [employer] Other Monocytes (Bld) [#/Vol] 0.557372871 10*3/uL Normal 0.0-0.8 10*3/uL [employer] Other Monocytes/100 WBC (Bld) 8.300 % . % N [facility] [employer] Other Neutrophils (Bld) [#/Vol] 3.177003350 10*3/uL Normal 1.8-7.7 10*3/uL [employer] Other Neutrophils/100 WBC (Bld) 38.600 % . % [employer] Other Platelet mean volume (Bld) [Entitic vol] 11.1000 fL High 6.6-10.1 fL [employer] Other WBC (Bld) [#/Vol] 9.072451749 10*3/uL Normal 4.1 -10.5 10*3/uL [employer] Other Complete Blood Count Auto Diff 9.2 10*3/uL Normal 4.1-10.5 10*3/uL [employer] Other Complete Blood Count Auto Diff 32.7 g/dL Normal 32.5-35.6 g/dL [employer] Other Complete Blood Count Auto Diff 0.0 /100{WBC} Normal 0-0.5 /100{WBC} [employer] Other Complete Blood Count Auto Di ffOrdered By: Maribeth Vuong on 07-15-2022 Platelets (Bld) [#/Vol] 236 10*3/uL Normal 150-450 [facility] Comment on above: Order Comment: Reaso n for Exam Medication monitoring encounter Performed By: #### C BC, POOJA, LIPASE #### [facility] [address] RBC (Bld) [#/Vol] 5.13 10*6/uL Normal 3.90-5.60 [facility] Comment on above: Order Comment: Reaso n for Exam Medication monitoring encounter Performed By: #### C BC, POOJA, LIPASE #### [facility] [address] ER URINE PROFILEon 3 Bilirubin Ql (U) Negative Normal NEGATIVE [facility] Comment on above: Performed By: #### E RUR ####[facility] [address] [place], [place] [address]Dr. Sydney David Clarity (U) CLEAR Normal CLEAR [facility] Comment on above: Performed By: #### E RUR ####[facility] [address] [place], [place] [address]Dr. Sydney David Color (U) LT. YELLOW Normal YELLOW [facility] Comment on above: Performed By: #### E RUR ####[facility] [address] [place], [place] [address]Dr. Sydney David ERUAHD A micrscopic examination will be performed if indicated. Normal [facility] Comment on above: Performed By: #### E RUR ####[facility] [address] [place], [place] [address]Dr. Sydney David Glucose Ql (U) Negative Normal NEGATIVE [facility] Comment on above: Performed By: #### E RUR ####[facility] [address] [place], [place] [address]Dr. Sydney David Hemoglobin Ql (U) Negative Normal NEGATIVE The [facility] Comment on above: Performed By: #### E RUR ####[facility] [address] [place], [place] [address]Dr. Keymera David Ketones Ql (U) Negative Normal NEGATIVE [facility] Comment on above: Performed By: #### E RUR ####[facility] [address] [place], [place] [address]Dr. Sydney David LEUKOCYTES Negative Normal NEGATIVE [facility] Comment on above: Performed By: #### E RUR ####[facility] [address] [place], [place] [address]Dr. Keymera David Nitrite Ql (U) Negative Normal NEGATIVE [facility] Comment on above: Performed By: #### E RUR ####[facility] [address] [place], [place] [address]Dr. Sydney David pH (U) 5.5 [pH] Normal 5-9 [facility] Comment on above: Performed By: #### E RUR ####[facility] [address] [place] [address]Dr. Sydney David SPEC GRAVITY 1.010 Normal 1.005-<=1.0 25 [facility] Comment on above: Performed By: #### E RUR ####[facility] [address] [place] [address]Dr. Sydney David UA PROTEIN Negative Normal NEGATIVE/ TRACE [facility] Comment on above: Performed By: #### E RUR ####[facility] [address] [place] [address]Dr. Sydney David UR MICRO IND NOT INDICATED Normal [facility] Comment on above: Performed By: #### E RUR ####[facility] [address] [place] [address]Dr. Sydney David Urobilinogen Qn (U) 0.2 {Johan'U}/dL Normal 0.2 - 1. 0 [facility] Comment on above: Performed By: #### E RUR ####[facility] [address] [place] [address]Dr. Sydney David Eosinophils Auto (Bld) [#/Vo l]Ordered By: Maribeth Vuong on 07-15-2022 Eosinophils (Bld) [#/Vol] 0.6 10*3/uL 0.0-0.45 [facility] Eosinophils/100 WBC Auto (Bl d)Ordered By: Maribeth Vuong on 07-15-2022 Eosinophils/100 WBC (Bld) 6.1 % . [facility] Erythrocyte distribution wid th Auto (RBC) [Ratio]Ordered By: Maribeth Vuong on 07-15-2022 Erythrocyte distribution width (RBC) [Ratio] 13.6 % 12.0-14.8 [facility] Hematocrit Auto (Bld) [Volum e fraction]Ordered By: Maribeth Vuong on 07-15-2022 Hematocrit (Bld) [Volume fraction] 47.4 % 38.8-50.0 [facility] Hemoglobin [Mass/volume] in BloodOrdered By: Maribeth Vuong on 07-15-2022 Hemoglobin (Bld) [Mass/Vol] 15.5 g/dL 13.0-17.0 [facility] Leukocytes [#/volume] correc gris for nucleated erythrocytes in Blood by Automated counOrdered By: Maribeth Vuong on 07-15-2022 WBC corrected for nucl RBC Auto (Bld) [#/Vol] 9.2 10*3/uL 4.1-10.5 [facility] Lipaseon 07-15-2022 Lipase [Catalytic activity/Vol] 80.0 U/L Normal 11.0-82.0 [facility] Comment on above: Order Comment: Reaso n for Exam Generalized abdominal pain;Slow transit constipation;Medicat Reason for Exam Generalized abdominal pain;Medication monitoring encounter NOT FASTING. JKW Result Comment: PERF ORMED BY: [place] [address] PATHOLOGIST [employer]ING MAILER MACHINE OPERATOR ALEM GARCIA M.D. Performed By: #### C BC, POOJA, LIPASE #### [address] Lipase [Catalytic activity/Vol] 80.09090 U/L Normal 11.0-82.0 U/L [employer] Other Lipase [Enzymatic activity/v olume] in Serum or PlasmaOrdered By: Maribeth Vuong on 07-15-2022 Lipase [Catalytic activity/Vol] 80.0 U/L 11.0-82.0 [facility] Lymphocytes Auto (Bld) [#/Vo l]Ordered By: Maribeth Vuong on 07-15-2022 Lymphocytes (Bld) [#/Vol] 4.3 10*3/uL 1.00-4.8 [facility] Lymphocytes/100 WBC Auto (Bl d)Ordered By: Maribeth Vuong on 07-15-2022 Lymphocytes/100 WBC (Bld) 46.5 % . [facility] MCH Auto (RBC) [Entitic mass ]Ordered By: Maribeth Vuong on 07-15-2022 MCH (RBC) [Entitic mass] 30.2 pg 27.5-35.2 [facility] MCHC Auto (RBC) [Mass/Vol]Or dered By: Maribeth Vuong on 07-15-2022 MCHC (RBC) [Mass/Vol] 32.7 g/dL 32.5-35.6 [facility] MCV Auto (RBC) [Entitic vol] Ordered By: Maribeth Vuong on 07-15-2022 MCV (RBC) [Entitic vol] 92.3 fL 83.5-101 [facility] Monocytes Auto (Bld) [#/Vol] Ordered By: Maribeth Vuong on 07-15-2022 Monocytes (Bld) [#/Vol] 0.8 10*3/uL 0.0-0.8 [facility] Monocytes/100 WBC Auto (Bld) Ordered By: Maribeth Vuong on 07-15-2022 Monocytes/100 WBC (Bld) 8.3 % . [facility] Neutrophils Auto (Bld) [#/Vo l]Ordered By: Maribeth Vuong on 07-15-2022 Neutrophils (Bld) [#/Vol] 3.6 10*3/uL 1.8-7.7 [facility] Neutrophils/100 WBC Auto (Bl d)Ordered By: Maribeth Vuong on 07-15-2022 Neutrophils/100 WBC (Bld) 38.6 % . [facility] Nucleated erythrocytes [Pres ence] in Blood by Automated countOrdered By: Maribeth Vuong on 07-15-2022 Nucleated RBC Auto Ql (Bld) 0.0 /100{WBC} 0-0.5 [facility] PROF CHEM 8 (BAS METB)on Anion gap [Moles/Vol] 13.3 mmol/L Normal [facility] [place] Comment on above: Performed By: #### B MP #### [facility] [address] [address] [address] Sydney David Calcium [Mass/Vol] 9.1 mg/dL Normal 8.5-10.1 [facility] Comment on above: Performed By: #### B MP #### [facility] [address] [place], [place] [address] Dr. Sydney David Chloride [Moles/Vol] 102 mmol/L Normal 98-107 [facility] Comment on above: Performed By: #### B MP #### [facility] [address] [place] [address] [address] Sydney David CO2 [Moles/Vol] 27.2 mmol/L Normal 21.0-32.0 [facility] Comment on above: Performed By: #### B MP #### [facility] [address] [place] [address] [address] Sydney David Creatinine [Mass/Vol] 1.08 mg/dL Normal 0.70-1.30 [facility] Comment on above: Performed By: #### B MP #### [facility] [address] [place] [address] [address] Sydney David EGFR-AF BOTSWANAN >60 Normal >=60 [facility] Comment on above: Performed By: #### B MP #### [facility] [address] [place] [address] [address] Sydney David EGFR-NON AF BOTSWANAN >60 Normal >=60 [facility] Comment on above: Performed By: #### B MP #### [facility] [address] [place] [address] [address] Sydney David Glucose [Mass/Vol] 116 mg/dL Critically high 74-106 [facility] Comment on above: Performed By: #### B MP #### [facility] [address] [place] [address] [address] Sydney David Potassium [Moles/Vol] 3.5 mmol/L Normal 3.5-5.1 [facility] Comment on above: Performed By: #### B MP #### [facility] [address] [place] [address] [address] Sydney David Sodium [Moles/Vol] 139 mmol/L Normal 136-145 [facility] Comment on above: Performed By: #### B MP #### [facility] [address] [place] [address] [address] Sydney David Urea nitrogen [Mass/Vol] 12.0 mg/dL Normal 7.0-18.0 [facility] Comment on above: Performed By: #### B MP #### [facility] [address] [place] [address] [address] Sydney David Urea nitrogen/Creatinine [Mass ratio] 11.1 mg/mg Normal [facility] Comment on above: Performed By: #### B #### [facility] [address] [place] [address] [address] Sydney David Platelet mean volume Auto (B ld) [Entitic vol]Ordered By: Maribeth Vuong on 07-15-2022 Platelet mean volume (Bld) [Entitic vol] 11.1 fL 6.6-10.1 [facility] WBC Auto (Bld) [#/Vol]Ordere d By: Maribeth Vuong on 07-15-2022 WBC (Bld) [#/Vol] 9.2 10*3/uL 4.1-10.5 [facility] XR KUBon 07-15-2022 XR KUB [facility] [address] XRay Report Signed Patient: Neal Parker MR#: [id number] : [id number] Acct:[id number] Age/Sex: 41 / M ADM Date: 07/15/22 Loc: [facility] Room: Type: [facility] Attending Dr: Maribeth Vuong DO Copies to: [...] Greer Jr., D.O.07/15/2022 4:05 PM Dictation Location: [place] [address] Transcribed By: [facility] 07/15/22 1605 Dictated By: Sonny Greer Jr, DO 07/15/22 1604 Signed By: 07/15/22 1605 Normal [facility] Alanine aminotransferase [En zymatic activity/volume] in Serum or PlasmaOrdered By: Maribeth Vuong on 07-12-2022 ALT [Catalytic activity/Vol] 68 U/L 7-52 [facility] Albumin [Mass/volume] in Ser um or Plasma by Bromocresol green (BCG) dye binding methoOrdered By: Maribeth Vuong on 07-12-2022 Albumin BCG dye [Mass/Vol] 4.7 g/dL 3.5-5.7 [facility] Alkaline phosphatase [Enzyma tic activity/volume] in Serum or PlasmaOrdered By: Maribeth Vuong on 07-12-2022 ALP [Catalytic activity/Vol] 33 U/L 34-104 [facility] Aspartate aminotransferase [ Enzymatic activity/volume] in Serum or PlasmaOrdered By: Maribeth Vuong on 07-12-2022 AST [Catalytic activity/Vol] 29 U/L 13-39 [facility] Bilirubin.total [Mass/volume ] in Serum or PlasmaOrdered By: Maribeth Vuong on 07-12-2022 Bilirubin [Mass/Vol] 0.6 mg/dL 0.3-1.0 [facility] Calcium [Mass/volume] in Ser um or PlasmaOrdered By: Maribeth Vuong on 07-12-2022 Calcium [Mass/Vol] 10.1 mg/dL 8.6-10.3 [facility] Carbon dioxide, total [Moles /volume] in Serum or PlasmaOrdered By: Maribeth Vuong on 07-12-2022 CO2 [Moles/Vol] 27.5 mmol/L 21.0-31.0 [facility] Chloride [Moles/volume] in S flash or PlasmaOrdered By: Maribeth Vuong on 07-12-2022 Chloride [Moles/Vol] 106 mmol/L 98-107 [facility] Cholesterol [Mass/volume] in Serum or PlasmaOrdered By: Maribeth Vuong on 07-12-2022 Cholesterol [Mass/Vol] 296 mg/dL 140-200 [facility] Comment on above: Chol less than 200 m g/dl low riskChol 201-239 mg/dl borderline riskChol 240 mg/dl and greater high risk Cholesterol in LDL Calc [Mas s/Vol]Ordered By: Maribeth Vuong on 07-12-2022 Cholesterol in LDL [Mass/Vol] 206 mg/dL 0-100 [facility] Comment on above: LDL ATP III CLASSIFI CATIONLDL less than 100 mg/dL OptimalLDL 100-129 mg/dL Near or above optimalLDL 130-159 mg/dL Borderline highLDL 160-189 mg/dL HighLDL greater than 189 mg/dL Very high Cholesterol in VLDL Calc [Ma ss/Vol]Ordered By: Maribeth Vuong on 07-12-2022 Cholesterol in VLDL [Mass/Vol] 53 mg/dL [facility] Comprehensive Metabolic Pane jenni 07-12-2022 Albumin [Mass/Vol] 4.7 g/dL Normal 3.5-5.7 [facility] Comment on above: Order Comment: PT FA STED 12 HOURS Reason for Exam Well adult exam;Lipid disorder;Medication monitoring encount Reason for Exam Lipid disorder Performed By: #### L IPID, PSAS W RFX, CMP #### [facility] [address] Albumin/Globulin [Mass ratio] 1.8 {ratio} Normal [facility] Comment on above: Order Comment: PT FA STED 12 HOURS Reason for Exam Well adult exam;Lipid disorder;Medication monitoring encount Reason for Exam Lipid disorder Performed By: #### L IPID, PSAS W RFX, CMP #### [facility] [address] [place] [address] [place] ALP [Catalytic activity/Vol] 33 U/L Low 34-104 [facility] Comment on above: Order Comment: PT FA STED 12 HOURS Reason for Exam Well adult exam;Lipid disorder;Medication monitoring encount Reason for Exam Lipid disorder Performed By: #### L IPID, PSAS W RFX, CMP #### [facility] [address] [place] [address] [place] ALT [Catalytic activity/Vol] 68 U/L High 7-52 [facility] Comment on above: Order Comment: PT FA STED 12 HOURS Reason for Exam Well adult exam;Lipid disorder;Medication monitoring encount Reason for Exam Lipid disorder Performed By: #### L IPID, PSAS W RFX, CMP #### [facility] [address] [place] [address] [place] Anion gap [Moles/Vol] 11.8 mmol/L Normal 6.0-15.0 [facility] Comment on above: Order Comment: PT FA STED 12 HOURS Reason for Exam Well adult exam;Lipid disorder;Medication monitoring encount Reason for Exam Lipid disorder Performed By: #### L IPID, PSAS W RFX, CMP #### [facility] [address] AST [Catalytic activity/Vol] 29 U/L Normal 13-39 [facility] Comment on above: Order Comment: PT FA STED 12 HOURS Reason for Exam Well adult exam;Lipid disorder;Medication monitoring encount Reason for Exam Lipid disorder Performed By: #### L IPID, PSAS W RFX, CMP #### [facility] [address] Bilirubin [Mass/Vol] 0.6 mg/dL Normal 0.3-1.0 [facility] Comment on above: Order Comment: PT FA STED 12 HOURS Reason for Exam Well adult exam;Lipid disorder;Medication monitoring encount Reason for Exam Lipid disorder Performed By: #### L IPID, PSAS W RFX, CMP #### [facility] [address] Calcium [Mass/Vol] 10.1 mg/dL Normal 8.6-10.3 [facility] Comment on above: Order Comment: PT FA STED 12 HOURS Reason for Exam Well adult exam;Lipid disorder;Medication monitoring encount Reason for Exam Lipid disorder Performed By: #### L IPID, PSAS W RFX, CMP #### [facility] [address] [place] [address] [place] Chloride [Moles/Vol] 106 mmol/L Normal 98-107 [facility] Comment on above: Order Comment: PT FA STED 12 HOURS Reason for Exam Well adult exam;Lipid disorder;Medication monitoring encount Reason for Exam Lipid disorder Performed By: #### L IPID, PSAS W RFX, CMP #### [facility] [address] CO2 [Moles/Vol] 27.5 mmol/L Normal 21.0-31.0 [facility] Comment on above: Order Comment: PT FA STED 12 HOURS Reason for Exam Well adult exam;Lipid disorder;Medication monitoring encount Reason for Exam Lipid disorder Performed By: #### L SOLOMON PSAS W RFX, CMP #### [facility] [address] Creatinine [Mass/Vol] 0.96 mg/dL Normal 0.70-1.30 [facility] Comment on above: Order Comment: PT FA STED 12 HOURS Reason for Exam Well adult exam;Lipid disorder;Medication monitoring encount Reason for Exam Lipid disorder Performed By: #### L IPDANNIELLE PSAS W RFX, CMP #### [facility] [address] GFR/1.73 sq M.predicted MDRD (S/P/Bld) [Vol rate/Area] mL/min/{1.73_m2} Normal [facility] Comment on above: Order Comment: PT FA STED 12 HOURS Reason for Exam Well adult exam;Lipid disorder;Medication monitoring encount Reason for Exam Lipid disorder Performed By: #### L IPID, PSAS W RFX, CMP #### [facility] [address] [place] [address] Globulin (S) [Mass/Vol] 2.6 g/dL Normal [facility] Comment on above: Order Comment: PT FA STED 12 HOURS Reason for Exam Well adult exam;Lipid disorder;Medication monitoring encount Reason for Exam Lipid disorder Performed By: #### L IPID, PSAS W RFX, CMP #### [facility] [address] [place] [address] Glucose [Mass/Vol] 106 mg/dL High 70-100 [facility] Comment on above: Order Comment: PT FA STED 12 HOURS Reason for Exam Well adult exam;Lipid disorder;Medication monitoring encount Reason for Exam Lipid disorder Result Comment: [place] Glucose Reference Range is dependent on time and content of last meal. Glucose of more than 200 mg/dL in a nonstressed, ambulatory subject supports the diagnosis of Diabetes Mellitus. ADA recommended reference range Performed By: #### L IPID, PSAS W RFX, CMP #### [facility] [address] Potassium [Moles/Vol] 4.3 mmol/L Normal 3.5-5.1 [facility] Comment on above: Order Comment: PT FA STED 12 HOURS Reason for Exam Well adult exam;Lipid disorder;Medication monitoring encount Reason for Exam Lipid disorder Performed By: #### L IPDANNIELLE PSAS W RFX, CMP #### [facility] [address] Protein [Mass/Vol] 7.3 g/dL Normal 6.4-8.9 [facility] Comment on above: Order Comment: PT FA STED 12 HOURS Reason for Exam Well adult exam;Lipid disorder;Medication monitoring encount Reason for Exam Lipid disorder Performed By: #### L SOLOMON PSAS W RFX, CMP #### [facility] [address] [place] [address] Sodium [Moles/Vol] 141 mmol/L Normal 136-145 [facility] Comment on above: Order Comment: PT FA STED 12 HOURS Reason for Exam Well adult exam;Lipid disorder;Medication monitoring encount Reason for Exam Lipid disorder Performed By: #### L SOLOMON PSAS W RFX, CMP #### [facility] [address] [place] [address] Urea nitrogen [Mass/Vol] 12 mg/dL Normal 7-25 [facility] Comment on above: Order Comment: PT FA STED 12 HOURS Reason for Exam Well adult exam;Lipid disorder;Medication monitoring encount Reason for Exam Lipid disorder Performed By: #### L IPID, PSAS W RFX, CMP #### [facility] [address] [place] [address] Creatinine [Mass/volume] in Serum or PlasmaOrdered By: Maribeth Vuong on 07-12-2022 Creatinine [Mass/Vol] 0.96 mg/dL 0.70-1.30 [facility] Globulin Calc (S) [Mass/Vol] Ordered By: Maribeth Vuong on 07-12-2022 Globulin (S) [Mass/Vol] 2.6 g/dL [facility] Glucose [Mass/volume] in Ser um or PlasmaOrdered By: Maribeth Vuong on 07-12-2022 Glucose [Mass/Vol] 106 mg/dL 70-100 [facility] Comment on above: ADA recommended refe rence rangeRandom Glucose Reference Range is dependent on time and content of last meal. Glucose of more than 200 mg/dL in a nonstressed, ambulatory subject supports the diagnosis of Diabetes Mellitus. Lipid Panelon 07-12-2022 Cholesterol [Mass/Vol] 296 mg/dL High 140-200 [facility] Comment on above: Order Comment: PT FA STED 12 HOURS Reason for Exam Well adult exam;Lipid disorder;Medication monitoring encount Reason for Exam Lipid disorder Result Comment: Chol less than 200 mg/dl low risk Chol 201-239 mg/dl borderline risk Chol 240 mg/dl and greater high risk Performed By: #### L IPID, PSAS W RFX, CMP #### [facility] [address] Cholesterol in HDL [Mass/Vol] 37 mg/dL Normal 29-71 [facility] Comment on above: Order Comment: PT FA STED 12 HOURS Reason for Exam Well adult exam;Lipid disorder;Medication monitoring encount Reason for Exam Lipid disorder Result Comment: HDL CHOL ATP-III CLASSIFICATION Cardiovascular Risk HDL > or equal to 60 mg/dL LOW HDL < 40 mg/dL HIGH Performed By: #### L IPID, PSAS W RFX, CMP #### [facility] [address] [place] [id number] [facility] Cholesterol.total/Patti sterol in HDL [Mass ratio] 8.0 {ratio} Normal <5.0 [facility] Comment on above: Order Comment: PT FA STED 12 HOURS Reason for Exam Well adult exam;Lipid disorder;Medication monitoring encount Reason for Exam Lipid disorder Result Comment: PERF ORMED BY: [facility] [address] [place] [address] PATHOLOGIST WING MAILER MACHINE OPERATOR ALEM GARCIA M.D. Performed By: #### L IPID, PSAS W RFX, CMP #### [facility] [address] [place] [id number] [facility] LDL Cholesterol,Calculated 206 mg/dL High 0-100 [facility] Comment on above: Order [...] L IPID, PSAS W RFX, CMP #### [facility] [address] Triglyceride w/Reflex 266 mg/dL High 0-149 [facility] Comment on above: Order Comment: PT [...] L IPID, PSAS W RFX, CMP #### [facility] [address] VLDL CHOLESTEROL 53 mg/dL Normal [facility] Comment on above: Order Comment: PT FA STED 12 HOURS Reason for Exam Well adult exam;Lipid disorder;Medication monitoring encount Reason for Exam Lipid disorder Performed By: #### L IPID, PSAS W RFX, CMP #### [facility] [address] [place] [address] No Panel InformationOrdered By: Maribeth Vuong on 07-12-2022 Estimated GFR (CKD-EPI) > 60.0 mL/Min [facility] Creatinine Clearance (Chem N/A [facility] PSA Screen (Yearly) w/Reflex on 07-12-2022 PSA Screen (Yearly) w/Reflex 0.670 ng/mL Normal 0.000-4.000 [facility] Comment on above: Order Comment: Reaso n for Exam Well adult exam;Prostate cancer screening Is patient <50 yrs? Medicare does not pay <50.: Y What is the date of the last PSA Screen?: N/A Is Medicare the insurance?: N Did you verify eligibility (Dx Time) check TestViewGp: YES TO ALL Result Comment: PERF ORMED BY: [facility] [address] [place] [address] PATHOLOGIST WING MAILER MACHINE OPERATOR ALEM GARCIA M.D. Performed By: #### L IPID, PSAS W RFX, CMP #### [facility] [address] Potassium [Moles/volume] in Serum or PlasmaOrdered By: Maribeth Vuong on 07-12-2022 Potassium [Moles/Vol] 4.3 mmol/L 3.5-5.1 [facility] Prostate specific Ag [Mass/v olume] in Serum or PlasmaOrdered By: Maribeth Vuong on 07-12-2022 Prostate specific Ag [Mass/Vol] 0.670 ng/mL 0.000-4.000 [facility] Protein [Mass/volume] in Ser um or PlasmaOrdered By: Maribeth Vuong on 07-12-2022 Protein [Mass/Vol] 7.3 g/dL 6.4-8.9 [facility] Serum or plasma albumin/glob ulin mass ratioOrdered By: Maribeth Vuong on 07-12-2022 Albumin/Globulin [Mass ratio] 1.8 {ratio} [facility] Serum or plasma anion gap de terminationOrdered By: Maribeth Vuong on 07-12-2022 Anion gap [Moles/Vol] 11.8 mmol/L 6.0-15.0 [facility] Serum or plasma high density lipoprotein (HDL) cholesterol measurementOrdered By: Maribeth Vuong on 07-12-2022 Cholesterol in HDL [Mass/Vol] 37 mg/dL 29-71 [facility] Comment on above: HDL CHOL ATP-III [...] on 07-12-2022 Sodium [Moles/Vol] 141 mmol/L 136-145 [facility] Triglyceride [Mass/volume] i n Serum or PlasmaOrdered By: Maribeth Vuong on 07-12-2022 Triglyceride [Mass/Vol] 266 mg/dL 0-149 [facility] Comment on above: TRIG ATP III CLASSIF ICATIONTRIG less than 150 mg/dL NormalTRIG 150-199 mg/dL Borderline highTRIG 200-500 mg/dL High TRIG greater than 500 mg/dL Very highStandard traceable to the Center for Disease Conrtrol and Prevention (CDC) test method. Urea nitrogen [Mass/volume] in Serum or PlasmaOrdered By: Maribeth Vuong on 07-12-2022 Urea nitrogen [Mass/Vol] 12 mg/dL 10-29 [facility] XR LSPINE 2_3 VIEWSon 2022 XR [...] DAMARIS ESPINOSA Date: 2022-07-02 14:57 Normal [facility] MRI PELVIS WO CONon 06-28-19 [...] DAMARIS ESPINOSA Date: 2022-06-27 09:45 Normal [facility] MRI LSPINE WO CONon 06-27-19 23 MRI LSMONTEVALLO WO CON EXAMINATION: MRI LSPINE WO CON [...] RENE LAUREN Date: 2022-06-26 15:24 Normal [facility] XR lumbar spine AP/LAT/FLX/E [employer]Ton 01-08-2021 XR lumbar spine AP/LAT/FLX/EXT [facility] [employer] Other XR lumbar spine AP/LAT/FLX/EXT [facility] [employer] Other XR lumbar spine AP/LAT/FLX/EXT [address] [place] [address] [employer] Other XR lumbar spine AP/LAT/FLX/[place] [address] [employer] Other XR lumbar spine AP/LAT/FLX/EXT XRay Report [employer] Other XR lumbar spine AP/LAT/FLX/EXT Signed [employer] Other XR lumbar spine AP/LAT/FLX/EXT Patient: Neal Parker MR#: [id number] [employer] Other XR lumbar spine AP/LAT/FLX/EXT [address] [employer] Other XR lumbar spine AP/LAT/FLX/EXT : 1980 Acct:[id number] [employer] Other XR lumbar spine AP/LAT/FLX/EXT Age/Sex: 40 / M ADM Date: 01/08/21 [employer] Other XR lumbar spine AP/LAT/FLX/EXT Loc: SOXD Room: Type: [facility] [employer] Other XR lumbar spine AP/LAT/FLX/EXT Attending Dr: Charles Solares MD [employer] Other XR lumbar spine AP/LAT/FLX/EXT Ordering Provider: Charles Solares MD [employer] Other XR lumbar spine AP/LAT/FLX/EXT Date of Service: 01/08/21 [employer] Other XR lumbar spine AP/LAT/FLX/EXT XR/XR lumbar spine AP/LAT/FLX/EXT: Other spondylosis with radiculopathy, [employer] Other XR lumbar spine AP/LAT/FLX/EXT lumbar region [employer] Other XR lumbar spine AP/LAT/FLX/EXT Copies to: Charles Solares MD [employer] Other XR lumbar spine AP/LAT/FLX/EXT Lumbar spine 01/08/2021. [employer] Other XR lumbar spine AP/LAT/FLX/EXT CLINICAL DATA: Low back pain. [employer] Other XR lumbar spine AP/LAT/FLX/EXT FINDINGS: 4 standing views of the lumbar spine were obtained including lateral views in the [employer] Other XR lumbar spine AP/LAT/FLX/EXT neutral, flexion, and extension positions. This examination is compared with a prior study 04/14/2019. [employer] Other XR lumbar spine AP/LAT/FLX/EXT There are stable postsurgical changes related to lumbosacral spinal fusion. There is also stable [employer] Other XR lumbar spine AP/LAT/FLX/EXT anterior malalignment of L5 on S1. Mild posterior malalignment of L2 on L3 is noted. Overall [employer] Other XR lumbar spine AP/LAT/FLX/EXT vertebral alignment does not significantly change with limited flexion or limited extension. Disc [employer] Other XR lumbar spine AP/LAT/FLX/EXT space narrowing is identified. Minimal degenerative changes are seen. [employer] Other XR lumbar spine AP/LAT/FLX/EXT XR/XR lumbar spine AP/LAT/FLX/EXT [employer] Other XR lumbar spine AP/LAT/FLX/EXT IMPRESSION: Stable postsurgical changes and mild vertebral malalignment at the lumbosacral junction. [employer] Other XR lumbar spine AP/LAT/FLX/EXT Mild posterior malalignment of L2 on L3. No instability with limited flexion or extension. Disc [employer] Other XR lumbar spine AP/LAT/FLX/EXT space narrowing and minimal degenerative changes. [employer] Other XR lumbar spine AP/LAT/FLX/EXT Impression dictated by: Jude Stock Jr., M.D.01/08/2021 2:59 PM [employer] Other XR lumbar spine AP/LAT/FLX/EXT Dictation Location: [place] [address] [employer] Other XR lumbar spine AP/LAT/FLX/EXT Transcribed By: JIL 01/08/21 [facility] [employer] Other XR lumbar spine AP/LAT/FLX/EXT Dictated By: Jude Stock Jr, MD 01/08/21 [facility] [employer] Other XR lumbar spine AP/LAT/FLX/EXT Signed By: [employer] Other XR lumbar spine AP/LAT/FLX/EXT 01/08/21 [facility] [employer] Other Erasto 06-09-2018 CNOV Office Visit (NSFRVW ) NEAL PARKER ([id number]) 1980 M Date Time Provider Department 06/09/18 [...] with L5 fx. Had surgery by Dr. Robibe Wakefield [facility] in [place]. 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 Author Type: [...] L5 fx. Had surgery by Dr. Robbie [place], [facility] in [place]. 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 Hx of back problems and surgeries. Took two [place], flexeril, celebrex prior to coming. Needs another surgery for back. History of Present Illness 37-year-old white male presents emergency room with his and complaints of worsening lower back pain after bending over to light his heater in his shop. Patient has had prior back surgery by Dr. Sen in [place] March 14, 2015. Patient states he has [...] Anxious mood & affect. Integumentary: Warm, Dry, Tarina Medical Decision Making X-rays did not demonstrate [...] WASSIL In 3 days 04/04/2018 EST [address] [place] [address] Business (1) Additional Instructions: Call tomorrow for [...] made to ensure accuracy, however, inadvertently computerized rn emergency room mistakes may be present. Patient was treated and evaluated by the physician research program assistant. The attending physician was in the [...] acute fracture. Signed By: Andreas Cordova MD [facility] Comment on above: Result Comment: Elec tronically Signed By: Abdelrahman Olvera PA-C\.br\Date and Time Signed: 04/01/18 12:55 EST\.br\Electronically Co-Signed By: Lashay Li DO\.br\Date and Time Co-Signed: 04/07/18 16:20 EST Coding Summary.on 04-02-2018 Coding Summary. CODING DATE: 04/02/2018 FINAL [facility] STATUS: Home (Routine DC) PAYOR: [employer] APC DESCRIPTION 5522 Level 2 Imaging without Contrast ADMIT DX: REASON FOR VISIT DX: M54.5 Low back pain FINAL DX: PRINCIPAL: M54.5 Low back pain SECONDARY: M53.3 Sacrococcygeal disorders, not elsewhere classified Z79.899 Other mcfp (current) drug therapy PYMT PROC APC STAT DESCRIPTION DOCTOR NAME DATE NOTE: The code number assigned matches the documented diagnosis and / or procedure in the patient's chart. However, the narrative phrase printed from the coding software may appear abbreviated, or result in slightly different terminology. Coded By: Laila Mcghee Date Saved: 04/02/2018 11:01 am Normal [facility] ED Clinical Summaryon 2017 ED Clinical Summary [place] [id number] ED Clinical Summary Person Information Name: NEAL PARKER/[facility] Age: 37 Years : 1980 12:00 AM Sex: Male Language: Citizen Of [place] PCP: RENE MORRELL DO Marital Status: Visit [...] 04/01/2018 1:01 PM 04/01/2018 1:01 PM ADDRESS: [address] [place] [phone] PHYS DOC NOTES: MEDICAL INFORMATION: Prescriptions Given: [...] Follow up: With: Address: When: RENE MORRELL [address] [place] [address] [facility] (1) In 3 days 04/04/2018 Comments: [...] the lower extremities DIAGNOSIS: Lumbosacral pain Normal [facility] ED Patient Education Noteon 04-01-2018 [...] stressful on the back to sit or rn operating room one place. Do not sit, drive, or rn operating room one place for more than 30 minutes [...] pillow under your knees. ? Only take iddg-yzk-hyvfpmp or prescription medicines as directed by your caregiver. Ctuh-jsg-oxjdoud medicines to reduce pain and inflammation are [...] Document Reviewed: 07/26/2014 ExitCare? Patient Information ?2015 [employer]. This information is not intended to replace [...] the first months of treatment. Only take hcrm-rmo-zrcwnie or prescription medicines for pain, discomfort, or [...] Document Reviewed: 07/17/2009 ExitCare? Patient Information ?2014 [employer]. This information is not intended to replace advice given to you by your health care provider. Make sure you discuss any questions you have with your health care provider. Normal [facility] ED Patient Summaryon 018 ED Patient Summary [address] [address] Patient Discharge Instructions Person Information Name: NEAL PARKER Age: 37 Years Arrival Date: 04/01/2018 11:05 AM Discharge Diagnosis: Lumbosacral pain Primary Care Physician: RENE MORRELL DO Provider Information Primary Provider: Guillermo DO, [place] Advanced Build And Release Manager:Abdelrahman Olvera PA-C The exam and treatment you received in the Emergency Department were for an urgent problem and are not intended as complete care. It is important that you follow up with a doctor, nurse practitioner, or physician?s research program assistant for ongoing care. If your symptoms become worse or you do not improve as expected and you are unable to reach your usual health care provider, you should return to the Emergency Department. We are available 24 hours a day. NEAL PARKER has been given the following list of patient education materials, prescriptions and follow-up instructions: Follow-up Instructions: With: Address: When: [place] [id number] [facility] (1) In 3 days 04/04/2018 Comments: [...] opioids can be used to help relieve viiarefy-sq-diiixt pain and are often prescribed following a [...] be struggling with addiction, tell your health continuum of care manager and ask for guidance or call SAMHSA?S National Helpline at 6-904-892-IJIG. Source: US Department of Health and Human Services/Center for Disease Control & Prevention [facility] Medications Given: Medication Dose Route [...] Comment: Pharmacy Information: Thank you for choosing [facility] Patient Education Materials: Radicular Pain Radicular pain [...] the first months of treatment. Only take hics-vrv-kqjcxfm or prescription medicines for pain, discomfort, or [...] Document Reviewed: 07/17/2009 ExitCare? Patient Information ?2014 [employer]. This information is not intended to replace [...] stressful on the back to sit or rn operating room one place. Do not sit, drive, or rn operating room one place for more than 30 minutes [...] pillow under your knees. ? Only take vrwm-hyx-urxsbkz or prescription medicines as directed by your caregiver. Dcwr-bej-nklawnw medicines to reduce pain and inflammation are [...] Document Reviewed: 07/26/2014 ExitCare? Patient Information ?2015 [employer]. This information is not intended to replace advice given to you by your health care provider. Make sure you discuss any questions you have with your health care provider. ELENA Bolden RUSSELL , have received the following patient education materials/instruction s and have verbalized understanding: Patient Education Materials: Radicular Pain; Back Pain, Adult Follow-up Instructions: With: Address: When: [place] [id number] [facility] (1) In 3 days 04/04/2018 Comments: [...] Signature Date Clinician/Nurse Signature Date 04/01/18 13:01:03 [facility] Progress Note-Nurseon 2017 Protein mass conc Patient: [...] No further needs at this time. Normal [facility] XR Spine Lumbosacral Minimum 4 Viewson 04-01-2018 [...] MD Transcribed by: DARSHAN Technologist: DEAN Smalls [facility] Vital Signs Date Time Vital Sign Value Performing Clinician Facility 09-15-2023 10:190400 Body height 177.8 cm [facility] 09-15-2023 10:19-0400 Body mass index (BMI) [Ratio] 37.3 kg/m2 [facility] 09-15-2023 10:19-0400 Body weight 117.93 kg [facility] 09-15-2023 10:19-0400 Diastolic blood pressure 84 mm[Hg] [facility] 09-15-2023 10:19-0400 Heart rate 88 /min [facility] [facility] 09-15-2023 10:19-0400 SaO2% (BldA) [Mass fraction] 97 % [facility] 09-15-2023 10:19-0400 Systolic blood pressure 124 mm[Hg] [facility] 07-21-2023 07:59-0400 Body height 177.8 cm DO Maribeth Vuong Work Phone: [facility] 07-21-2023 07:59-0400 Body mass index (BMI) [Ratio] 40.1 kg/m2 DO Maribeth Vuong Work Phone: [facility] 07-21-2023 07:59-0400 Body weight 127 kg DO Maribeth Vuong Work Phone: [facility] 07-21-2023 07:59-0400 Diastolic blood pressure 86 mm[Hg] DO Maribeth Vuong Work Phone: [facility] 07-21-2023 07:59-0400 Heart rate 76 /min DO Maribeth Vuong Work Phone: [facility] 07-21-2023 07:59-0400 SaO2% (BldA) [Mass fraction] 98 % DO Maribeth Vuong Work Phone: [facility] 07-21-2023 07:59-0400 Systolic blood pressure 128 mm[Hg] DO Mairbeth Vuong Work Phone: [facility] 01-17-2023 09:00-0400 Body height 177.8 cm Maribeth Carolann Other [employer] [facility] [employer] Other 01-17-2023 09:00-0400 Body mass index (BMI) [Ratio] 39.17 kg/m2 Maribeth Carolann Other [employer] Other 01-17-2023 09:00-0400 Body temperature 97.7 [degF] Maribeth Vuong Other [employer] Other 01-17-2023 09:00-0400 Body weight 123.83 kg Maribeth Woodymer Other [employer] Other 01-17-2023 09:00-0400 Diastolic blood pressure 78 mm[Hg] Maribeth Vuong Other [employer] Other 01-17-2023 09:00-0400 SaO2% (BldA) [Mass fraction] 98 % Maribeth Vuong Other [employer] Other 01-17-2023 09:00-0400 Systolic blood pressure 112 mm[Hg] Maribeth Vuong Other [employer] Other 12-18-2022 09:45-0400 Body height 177.8 cm Maribeth Vuong Other [employer] Other 12-18-2022 09:45-0400 Body mass index (BMI) [Ratio] 37.73 kg/m2 Maribeth Vuong Other [employer] Other 12-18-2022 09:45-0400 Body weight 119.3 kg Maribeth Vuong Other [employer] Other 12-18-2022 09:45-0400 Diastolic blood pressure 86 mm[Hg] Maribeth Vuong Other [employer] Other 12-18-2022 09:45-0400 Respiratory rate 18 /min Maribeth Vuong Other [employer] Other 12-18-2022 09:45-0400 SaO2% (BldA) [Mass fraction] 95 % Maribeth Vuong Other [employer] Other 12-18-2022 09:45-0400 Systolic blood pressure 126 mm[Hg] Maribeth Vuong Other [employer] Other 12-12-2022 08:00-0400 Body height 177.8 cm Maribeth Vuong Other [employer] Other 12-12-2022 08:00-0400 Body mass index (BMI) [Ratio] 37.73 kg/m2 Maribeth Vuong Other [employer] Other 12-12-2022 08:00-0400 Body temperature 98.5 [degF] Maribeth Vuong Other [employer] Other 12-12-2022 08:00-0400 Body weight 119.3 kg Maribeth Vuong Other [employer] Other 12-12-2022 08:00-0400 Diastolic blood pressure 102 mm[Hg] Maribeth Vuong Other [employer] Other 12-12-2022 08:00-0400 SaO2% (BldA) [Mass fraction] 96 % Maribeth Vuong Other [employer] Other 12-12-2022 08:00-0400 Systolic blood pressure 150 mm[Hg] Maribeth Vuong Other [employer] Other 09-26-2022 10:22-0400 Diastolic blood pressure 108 mm[Hg] DO Maribeth Vuong Work Phone: [facility] 09-26-2022 10:22-0400 Heart rate 74 /min DO Maribeth Vuong Work Phone: [facility] 09-26-2022 10:22-0400 Respiratory rate 16 /min DO Maribeth Vuong Work Phone: [facility] 09-26-2022 10:22-0400 SaO2% (BldA) [Mass fraction] 98 % DO Maribeth Vuong Work Phone: [facility] 09-26-2022 10:22-0400 Systolic blood pressure 156 mm[Hg] DO Maribeth Vuong Work Phone: [facility] 09-26-2022 08:26-0400 Body height 175.26 cm DO Maribeth Vuong Work Phone: [facility] 09-26-2022 08:26-0400 Body temperature 98.5 [degF] DO Maribeth Vuong Work Phone: [facility] 09-26-2022 08:26-0400 Body weight 113.39 kg DO Maribeth Vuong Work Phone: [facility] 09-11-2022 09:45-0400 Body height 177.8 cm Maribeth Vuong Other [employer] [facility] [employer] Other 09-11-2022 09:45-0400 Body mass index (BMI) [Ratio] 35.37 kg/m2 Maribeth Vuong Other [employer] Other 09-11-2022 09:45-0400 Body weight 111.81 kg Maribeth Woodymer Other [employer] Other 09-11-2022 09:45-0400 Diastolic blood pressure 88 mm[Hg] Maribeth Vuong Other [employer] Other 09-11-2022 09:45-0400 Respiratory rate 18 /min Maribeth Vuong Other [employer] Other 09-11-2022 09:45-0400 SaO2% (BldA) [Mass fraction] 98 % Maribeth Vuong Other [employer] Other 09-11-2022 09:45-0400 Systolic blood pressure 142 mm[Hg] Maribeth Vuong Other [employer] Other 07-24-2022 10:30-0400 Body height 177.8 cm Igor Orr Other [employer] Other 07-24-2022 10:30-0400 Body mass index (BMI) [Ratio] 35.58 kg/m2 Igor Castroovanner Other [employer] Other 07-24-2022 10:30-0400 Body weight 112.49 kg Igor Orr Other [employer] Other 07-24-2022 10:30-0400 Diastolic blood pressure 132 mm[Hg] Igor Scovanner Other [employer] Other 07-24-2022 10:30-0400 Systolic blood pressure 187 mm[Hg] Igor Erazoovanlucille Other [employer] Other 07-15-2022 12:15-0400 Body height 177.8 cm Maribeth Vuong Other [employer] Other 07-15-2022 12:15-0400 Body mass index (BMI) [Ratio] 35.58 kg/m2 Maribeth Vuong Other [employer] Other 07-15-2022 12:15-0400 Body temperature 98.1 [degF] Maribeth Vuong Other [employer] Other 07-15-2022 12:15-0400 Body weight 112.49 kg Maribeth Vuong Other [employer] Other 07-15-2022 12:15-0400 Diastolic blood pressure 110 mm[Hg] Maribeth Vuong Other [employer] Other 07-15-2022 12:15-0400 SaO2% (BldA) [Mass fraction] 97 % Maribeth Vuong Other [employer] Other 07-15-2022 12:15-0400 Systolic blood pressure 156 mm[Hg] Maribeth Vuong Other [employer] Other 01-04-2022 12:15-0400 Body height 177.8 cm Maribeth Vuong Other [employer] Other 01-04-2022 12:15-0400 Body mass index (BMI) [Ratio] 34.39 kg/m2 Maribeth Vuong Other [employer] Other 01-04-2022 12:15-0400 Body weight 108.73 kg Maribeth Vuong Other [employer] Other 01-04-2022 12:15-0400 Diastolic blood pressure 86 mm[Hg] Maribeth Vuong Other [employer] Other 01-04-2022 12:15-0400 Respiratory rate 18 /min Maribeth Vuong Other [employer] Other 01-04-2022 12:15-0400 SaO2% (BldA) [Mass fraction] 98 % Maribeth Vuong Other [employer] Other 01-04-2022 12:15-0400 Systolic blood pressure 136 mm[Hg] Maribeth Vuong Other [employer] Other 06-22-2021 10:00-0400 Body height 177.8 cm Maribeth Vuong Other [employer] Other 06-22-2021 10:00-0400 Body mass index (BMI) [Ratio] 34.16 kg/m2 Maribeth Vuong Other [employer] Other 06-22-2021 10:00-0400 Body weight 108 kg Maribeth Vuong Other [employer] Other 06-22-2021 10:00-0400 Diastolic blood pressure 78 mm[Hg] Maribeth Vuong Other [employer] Other 06-22-2021 10:00-0400 Respiratory rate 18 /min Maribeth Vuong Other [employer] Other 06-22-2021 10:00-0400 SaO2% (BldA) [Mass fraction] 95 % Maribeth Vuong Other [employer] Other 06-22-2021 10:00-0400 Systolic blood pressure 118 mm[Hg] Maribeth Vuong Other [employer] Other 03-08-2021 12:15-0500 Body height 177.8 cm Charles Solares Other [employer] Other 03-08-2021 12:15-0500 Body mass index (BMI) [Ratio] 33.72 kg/m2 Charles Solares Other [employer] Other 03-08-2021 12:15-0500 Body weight 106.6 kg Charles Solares Other [employer] Other 02-12-2021 11:00-0500 Body height 177.8 cm Maribeth Vuong Other [employer] Other 02-12-2021 11:00-0500 Body mass index (BMI) [Ratio] 33.37 kg/m2 Maribeth Vuong Other [employer] Other 02-12-2021 11:00-0500 Body temperature 98.3 [degF] Maribeth Vuong Other [employer] Other 02-12-2021 11:00-0500 Body weight 105.51 kg Maribeth Vuong Other [employer] Other 02-12-2021 11:00-0500 Diastolic blood pressure 88 mm[Hg] Maribeth Vuong Other [employer] Other 02-12-2021 11:00-0500 Respiratory rate 18 /min Maribeth Vuong Other [employer] Other 02-12-2021 11:00-0500 SaO2% (BldA) [Mass fraction] 99 % Maribeth Vuong Other [employer] Other 02-12-2021 11:00-0500 Systolic blood pressure 134 mm[Hg] Maribeth Vuong Other [employer] Other 02-01-2021 11:45-0400 Body height 177.8 cm Maribeth Vuong Other [employer] Other 02-01-2021 11:45-0400 Body mass index (BMI) [Ratio] 35.48 kg/m2 Maribeth Vuong Other [employer] Other 02-01-2021 11:45-0400 Body temperature 98.2 [degF] Maribeth Vuong Other [employer] Other 02-01-2021 11:45-0400 Body weight 112.18 kg Maribeth Vuong Other [employer] Other 02-01-2021 11:45-0400 Diastolic blood pressure 86 mm[Hg] Maribeth Vuong Other [employer] Other 02-01-2021 11:45-0400 Respiratory rate 18 /min Maribeth Vuong Other [employer] Other 02-01-2021 11:45-0400 SaO2% (BldA) [Mass fraction] 97 % Maribeth Vuong Other [employer] Other 02-01-2021 11:45-0400 Systolic blood pressure 136 mm[Hg] Maribeth Vuong Other [employer] Other Encounters Encounter Date Encounter Type Care Provider Facility Start: 09-30-2023 End: 10-02-2023 Evaluation and management of inpatient Diaz Valdovinos MD Facility:[facility] Start: 09-25-2023 End: 09-25-2023 ambulatory Diaz Valdovinos MD Facility:[facility] Start: 09-15-2023 End: 09-15-2023 ambulatory [facility] Work Phone: Start: 09-15-2023 End: 09-15-2023 Patient encounter procedure [facility] [place] Work Phone: Start: 09-10-2023 End: 09-10-2023 ambulatory Diaz Valdovinos MD Facility:[facility] Start: 07-21-2023 End: 07-21-2023 ambulatory DO Maribeth Vuong Work Phone: [facility] Work Phone: Start: 07-21-2023 End: 07-21-2023 Patient encounter procedure DO Maribeth Vuong Work Phone: [facility] [place] Work Phone: Start: 06-03-2023 End: 06-03-2023 Patient encounter procedure DO Maribeth Vuong Work Phone: [facility] Work Phone: Start: 05-29-2023 Non-patient / Non-visit DO Maribeth Vuong Work Phone: [facility] [employer] Work Phone: Start: 03-13-2023 End: 03-13-2023 ambulatory Maribeth Vuong Other [facility] [employer] Other Start: 03-13-2023 Telephone encounter Maribeth Mercer [facility] Start: 02-05-2023 End: 02-05-2023 ambulatory Maribeth Vuong Other [facility] [employer] Other Start: 02-05-2023 Telephone encounter Maribeth Mercer [facility] Start: 01-17-2023 End: 01-17-2023 ambulatory Maribeth Vuong Other [employer] Other Start: 01-17-2023 Encounter for genera l adult medical examination without abnormal findings Maribeth Carolann [facility] [place] Start: 01-17-2023 Periodic preventive med est patient 40-64yrs Maribeth Vuong [facility] [place] Start: 12-18-2022 (Procedure) Short Maribeth Carolann [facility] [place] Start: 12-18-2022 End: 12-18-2022 ambulatory Maribeth Vuong Other [employer] Other Start: 12-12-2022 End: 12-12-2022 ambulatory Maribeth Vuong Other [employer] Other Start: 12-12-2022 Office outpatient visit 15 minutes Maribeth Vuong [facility] [place] Start: 12-05-2022 End: 12-05-2022 ambulatory Maribeth Vuong Other [employer] Other Start: 12-05-2022 Telephone encounter Maribeth Mercer [facility] [place] Start: 09-28-2022 End: 09-28-2022 ambulatory Nash Cardenas Other [facility] [employer] Other Start: 09-28-2022 Telephone encounter Nash Cardenas [facility] Start: 09-26-2022 End: 09-26-2022 ambulatory Nash Cardenas Facility:[facility] Start: 09-26-2022 End: 09-26-2022 Admission to same day surgery center DO Maribeth Vuong Work Phone: [facility] Work Phone: Start: 09-26-2022 End: 09-26-2022 ambulatory DO Maribeth Vuong Work Phone: [facility] Work Phone: Start: 09-11-2022 (Procedure) Short Maribeth Vuong [facility] [place] Start: 09-11-2022 End: 09-11-2022 ambulatory Maribeth Vuong Other [employer] Other Start: 09-10-2022 End: 09-10-2022 ambulatory Maribeth Vuong Other [employer] Other Start: 09-10-2022 Telephone encounter Maribeth Carolann [facility] [place] Start: 09-03-2022 End: 09-03-2022 ambulatory NARENDRANMAXIMUS LAKKEYMIPATHY . Facility: Start: 08-20-2022 End: 08-20-2022 ambulatory Maribeth Vuong Facility:[facility] Start: 08-20-2022 End: 08-20-2022 ambulatory DO Maribeth Vuong Work Phone: [facility] Work Phone: Start: 08-20-2022 End: 08-20-2022 Patient encounter procedure DO Maribeth Vuong Work Phone: [facility] [place] Start: 08-16-2022 End: 08-17-2022 ambulatory NARENDRANATH LAKSHMIPATHY . Facility:[facility] Start: 08-02-2022 End: 08-02-2022 ambulatory Maribeth Vuong Other [employer] Other Start: 08-02-2022 Telephone encounter Maribeth Mercer [facility] [place] Start: 07-30-2022 End: 07-30-2022 ambulatory NARENDRANATH LAKSHMIPATHY . Facility:[facility] Start: 07-24-2022 End: 07-24-2022 ambulatory Igor Orr Other [employer] Other Start: 07-24-2022 Office outpatient ne w 30 minutes Igor Orr [facility] Start: 07-23-2022 End: 07-24-2022 ambulatory NARENDRANATH LAKSHMIPATHY . Facility:[facility] Start: 07-16-2022 End: 07-16-2022 ambulatory Maribeth Vuong Other [employer] Other Start: 07-16-2022 Telephone encounter Maribeth Mercer [facility] [place] Start: 07-15-2022 Office outpatient visit 25 minutes Maribeth Vuong [facility] [place] Start: 07-15-2022 Telephone encounter Maribeth Carolann [facility] [place] Start: 07-15-2022 End: 07-15-2022 ambulatory DO Maribeth Vuong Work Phone: [place] [employer] Other Start: 07-15-2022 End: 07-15-2022 Patient encounter procedure DO Maribeth Carolann Work Phone: [facility] Start: 07-12-2022 End: 07-12-2022 ambulatory Maribeth Vuong Facility:[facility] Start: 07-12-2022 Encounter for genera l adult medical examination without abnormal findings Maribeth Vuong [facility] Start: 07-12-2022 End: 07-12-2022 ambulatory DO Maribeth Vuong Work Phone: [facility] Work Phone: Start: 07-12-2022 End: 07-12-2022 Patient encounter procedure DO Maribeth Vuong Work Phone: [facility] [place] Work Phone: Start: 07-02-2022 End: 07-03-2022 ambulatory [...] 01-04-2022 End: 01-04-2022 ambulatory Maribeth Vuong Other [employer] [facility] [employer] Other Start: 01-04-2022 Encounter for genera l adult medical examination without abnormal findings Maribeth Vuong [facility] Start: 01-04-2022 Periodic preventive med est patient 40-64yrs Maribeth Vuong [facility] [place] Start: 12-13-2021 End: 12-14-[address] JESSICA JOEL . Facility:[facility] Start: 10-31-2021 End: 11-01-[address] JESSICA JOEL . Facility:[facility] Start: 10-03-2021 End: 10-04-2021 ambulatory BRIT SCHUSTER . Facility:[facility] Start: 09-29-2021 End: 09-29-2021 ambulatory MARIBETH VUONG Facility:[facility] Start: 08-17-2021 End: 08-17-2021 ambulatory Charles Solares Other [employer] Other Start: 08-17-2021 Telephone encounter Charles Hernandezer [facility] [place] Start: 08-07-2021 End: 08-07-2021 ambulatory Charles Solares Other [employer] Other Start: 08-07-2021 Telephone encounter Charles Solares [facility] [place] [facility] Start: 07-13-2021 End: 07-13-2021 ambulatory Maribeth Vuong Other [employer] Other Start: 07-13-2021 Telephone encounter Maribeth Vuong [facility] [place] Start: 07-09-2021 End: 07-09-2021 ambulatory Charles Solares Other [employer] Other Start: 07-09-2021 Office outpatient visit 25 minutes Charles Solares [facility] [place] Start: 06-22-2021 End: 06-22-2021 ambulatory Maribeth Vuong Other [employer] Other Start: 06-22-2021 Office outpatient visit 15 minutes Maribeth Vuong [facility] [place] Start: 06-06-2021 End: 06-06-2021 ambulatory Charles Hernandezer Other [employer] Other Start: 06-06-2021 Office outpatient visit 25 minutes Charles Felter [facility] [place] Start: 05-29-2021 End: 05-29-2021 ambulatory Maribeth Vuong Other [employer] Other Start: 05-29-2021 Telephone encounter Maribeth Mercer [facility] [place] Start: 05-22-2021 End: 05-22-2021 ambulatory Maribeth Vuong Other [employer] Other Start: 05-22-2021 Telephone encounter Maribeth Mercer [facility] [place] Start: 05-21-2021 End: 05-21-2021 ambulatory Maribeth Vuong Other [employer] Other Start: 05-21-2021 Telephone encounter Maribeth Mercer [facility] [place] Start: 05-08-2021 End: 05-08-2021 ambulatory Charles Hernandezer Other [employer] Other Start: 05-08-2021 Office outpatient visit 25 minutes Charles Felter [facility] [place] Start: 04-12-2021 End: 04-12-2021 ambulatory Charles Felter Other [employer] Other Start: 04-12-2021 Office outpatient visit 25 minutes Charles Felter [facility] [place] Start: 03-08-2021 End: 03-08-2021 ambulatory Charles Felter Other [employer] Other Start: 03-08-2021 Office outpatient visit 25 minutes Charles Felter [facility] [place] Start: 02-28-2021 End: 02-28-2021 ambulatory Maribeth Vuong Other [employer] Other Start: 02-28-2021 Telephone encounter Maribeth Mercer [facility] [place] Start: 02-12-2021 End: 02-12-2021 ambulatory Maribeth Vuong Other [employer] Other Start: 02-12-2021 Office outpatient visit 15 minutes Maribeth Vuong [facility] Start: 02-05-2021 Office outpatient visit 25 minutes Charles Solares [facility] [place] Start: 02-01-2021 Office outpatient visit 15 minutes Maribeth Woodymer [facility] [place] Start: 01-08-2021 Office outpatient visit 25 minutes Charles Solares [facility] [place] Start: 06-09-2018 End: 06-10-2018 Patient encounter procedure PHI IDA RENE [facility] Start: 04-01-2018 End: 04-01-2018 Emergency department patient visit Lashay Li Facility:[facility] Procedures Date Procedure Procedure Detail Performing Clinician Start: 06-03-2023 Plain X-ray of left hand DO Maribeth Woodymer Work Phone: Start: 09-26-2022 Colonoscopy DO Maribeth Vuong Work Phone: Start: 07-15-2022 Diagnostic radiograp hy of abdomen DO Maribeth Vuong Work Phone: Plan of Treatment Date Care Activity Detail Author Start: 09-26-2022 [facility] Patient Education Hemorrhoids (DC) [facility] Work Phone: Immunizations Immunization Date Immunization Notes Care Provider Macrina brunson 12-07-2020 COVID-19 Vaccine Corey - Documentation Purposes Only Charles Solares Other [facility] 03-25-2019 Depo-Medrol 80 mg Charles lewis Other [employer] Other 12-11-2017 Kenalog -40 mg Charles Solares Other [employer] Other Payers Date Payer Category Payer Unknown 2022 Self-pay [id number] 1979 Unknown [id number] 2.16.84 0.1.507451.3.579.2.727 1979 Unknown [id number] 2.16.84 0.1.735874.3.579.2.593 1979 Unknown [id number] 2.16.84 0.1.643967.3.579.2.593 1979 Unknown [id number] 2.16.84 0.1.221271.3.579.2.593 1979 Unknown [id number] 2.16.84 0.1.459157.3.579.2.593 1979 Unknown [id number] 2.16.84 0.1.332608.3.579.2.593 1979 Unknown [id number] 2.16.84 0.1.526685.3.579.2.593 1979 Unknown [id number] 2.16.84 0.1.077568.3.579.2.593 1979 Unknown [id number] 2.16.84 0.1.782812.3.579.2.593 1979 Unknown [id number] 2.16.84 0.1.080749.3.579.2.593 1979 Unknown [id number] 2.16.84 0.1.768307.3.579.2.593 1979 Unknown [id number] 2.16.84 0.1.561825.3.579.2.593 1979 Unknown [id number] 2.16.84 0.1.053326.3.579.2.593 1979 Unknown [id number] 2.16.84 0.1.298063.3.579.2.593 1979 Unknown [id number] 2.16.84 0.1.274628.3.579.2.593 1979 Unknown [id number] 2.16.84 0.1.012061.3.579.2.593 1979 Unknown [id number] 2.16.84 0.1.558068.3.579.2.593 1979 Unknown [id number] 2.16. 840.1.717212.3.579.2.196 1979 Unknown [id number] 2.16. 840.1.102625.3.579.2.196 1979 Unknown [id number] 2.16. 840.1.223647.3.579.2.196 1959 Medicaid [id number] 1959 Unknown [id number] 1959 Unknown [id number] Blue Cross Blue Shield [id number] 2.16.840.1.910383.19 Unknown [facility] [id number] Unknown [id number] 2.16.8 40.1.110057.3.579.2.531 Unknown [id number] 2.16.8 40.1.585198.3.579.2.531 Unknown [id number] 2.16.8 40.1.630111.3.579.2.531 Unknown [id number] 2.16.8 40.1.106051.3.579.2.531 Social History Date Type Detail Facility Unknown if ever smoked [employer] Other Sex Assigned At Sex Assigned At Bir th [employer] Other Start: 04-13-2019 Tobacco smoking status TXIS Smoker (finding) [facility] Start: 1980 Sex Assigned At Male F [facility] Start: 09-26-2022 Tobacco smoking status [facility] Current some day smoker [facility] Goals Date Patient Goal Desired Activity [...] Homar Rodgers MD, Jr 10/02/23 05:07 EDT [facility] 09-30-2023 Note Operative Report DATE OF [...] [employer] SURGEON: Diaz Valdovinos MD APPLIED RESEARCHER: MAGGIE Duran PA-C assisted throughout the procedure [...] dural tear, nerve root injury, nonunion, DVT/PE, AK, stroke, etc. All questions were answered. Informed [...] monitoring remained stable (more content not included)... [facility] 09-29-2023 Note Chief Complaint Back pain History of Present Illness The patient is a 42-year-old male with complaints of constant low back pain that radiates to shooting pain into his buttocks and perineal region, he did have pain radiating down the posterior legs but had a RFA in February, which helped with his shooting pain. He also has burning and [id number]-lwy-[id number] along the right lateral foot and toes. [...] CT and MRI Lumbar Spine done at [place] Electronically signed by Qamar Recio PA-C 09/29/23 09:58 EDT Electronically signed by Diaz Valdovinos MD 09/30/2023 09:41 EDT [facility] 03-13-2023 Evaluation note Encounter Date Diagnosis Assessment Notes Mar, Primary osteoarthritis of both first carpometacarpal joints (ICD-10 - M18.0) [facility] Other 11-01-2023 Evaluation note* Encounter Date Diagnosis Assessment Notes Treatment Notes Treatment Clinical Notes Feb, Primary hypertension (ICD-10 - I10) [facility] [facility] [facility] Other 10-13-2023 Evaluation note* Encounter Date Diagnosis [...] Jan, Medication monitoring encounter (ICD-10 - Z51.81) [employer] Other 09-13-2023 Evaluation note* Encounter Date Diagnosis Assessment Notes Treatment Notes Treatment Clinical Notes Dec, Primary osteoarthrit is of first carpometacarpal joint of left hand (ICD-10 - M18.12) [employer] Other 09-07-2023 Evaluation note* Encounter Date Diagnosis [...] he has any issues with the medicine. [employer] Other 06-22-2023 Procedure [facility]06-07-2023 Evaluation note* Encounter Date Diagnosis Assessment Notes Treatment Notes Treatment Clinical Notes Sep, Primary osteoarthrit is of both first carpometacarpal joints (ICD-10 - M18.0) [employer] Other 04-19-2023 Evaluation note* Encounter Date Diagnosis [...] colonoscopy to rule out luminal etiologies made [employer] Other 04-18-2023 NoteCONSULTATION CONSULTATION DATE: 07/23/2022 TO: [...] our patients to inform us about any tikn-zoj-detznrd medications or herbal remedies/nutritional supplements/alternative remedies. 2. [...] treatment options with their primary care provider.[facility] [id number] Evaluation note * Encounter Date Diagnosis Assessment Notes Treatment Notes Treatment Clinical Notes Jul, Generalized abdominal pain (ICD-10 - R10.84) [employer] Other 04-10-2023 Evaluation note* Encounter Date Diagnosis [...] Jul, Medication monitoring encounter (ICD-10 - Z51.81) [employer] Other 04-10-2023 Evaluation note* Encounter Date Diagnosis Assessment Notes Treatment Notes Treatment Clinical Notes Jul, Slow transit constipation (ICD-10 - K59.01) [employer] Other 03-28-2023 NoteCONSULTATION CONSULTATION DATE: 07/02/2022 TO: [...] as well as his lumbar spine films.[facility] [id number] Note CONSULTATION CONSULTATION DATE: 06/13/2022 HISTORY OF [...] relief. He has been seen both at [place] and [facility] in the past, and received [...] under the care of Dr. Joshua in [place]. He is unwilling to try Lyrica due [...] Patient is in agreement to this plan.[facility] [id number] NoteCONSULTATION CONSULTATION DATE: 03/14/2022 HISTORY OF PRESENT [...] in three months' time, unless otherwise indicated.[facility] [id number] NoteCONSULTATION CONSULTATION DATE: 02/07/2022 HISTORY OF PRESENT [...] followed up in the office post procedure.[facility] [id number] Evaluation note* Encounter Date Diagnosis Assessment Notes [...] Dec, Prostate cancer screening (ICD-10 - Z12.5) [employer] Other 09-08-2022 NoteCONSULTATION CONSULTATION DATE: 12/13/2021 HISTORY [...] of care and all questions were answered.[facility] [id number] Note CONSULTATION PROCEDURE DATE: 10/31/2021 PREOPERATIVE DIAGNOSIS: [...] will be followed up in the office.[facility] [id number] Note CONSULTATION CONSULTATION DATE: 10/03/2021 This is [...] and will be seen in the clinic. [facility] Signed and Approved by: BRIT SCHUSTER . 10/11/2021 16:28:00[facility]04-04-2022 Evaluation note* Encounter Date Diagnosis [...] in this. Patient notes prior issues with [facility] billing department and states he is [...] note writ ten by Km Cervantes MA, [employer]. Edited and approved by Dr. Charles Solares MD. [employer] Other 03-18-2022 Evaluation note* Encounter Date Diagnosis [...] and he is to continue with it. [employer] Other 03-02-2022 Evaluation note* Encounter Date Diagnosis [...] note writ ten by Km Cervantes CMA, [employer] Tester. Edited and approved by Dr. Charles Solares MD. [employer] Other 02-15-2022 Evaluation note* Encounter Date Diagnosis Assessment Notes Treatment Notes Treatment Clinical Notes May, Cigarette nicotine dependence without complication (ICD-10 - F17.210) [employer] Other 02-14-2022 Evaluation note* Encounter Date Diagnosis Assessment Notes Treatment Notes Treatment Clinical Notes May, Other spondylosis with radiculopathy, lumbar region (ICD-10 - M47.26) [employer] Other 02-01-2022 Evaluation note* Encounter Date Diagnosis [...] was refilled today. Saliva sample performed through [facility] today, will await confirmatory results. [employer] contract updated at this time. May, Other chronic pain (ICD-10 - G89.29) May, Other Above note writ ten by Sonya Dawson LPN, [employer]. Edited and approved by Dr. Charles Solares MD. [employer] [facility] [employer] Other 01-06-2022 Evaluation note* Encounter Date Diagnosis [...] note writ ten by Km Cervantes CMA, [employer] Tester. Edited and approved by Dr. Charles Solares MD. [employer] Other 12-02-2021 Evaluation note* Encounter Date Diagnosis [...] Above note written by Sonya Dawson LPN, [employer] Tester. Edited and approved by Dr. Charles Sloares MD. [employer] Other 11-08-2021 Evaluation note* Encounter Date Diagnosis [...] Patient voiced understanding agrees with this plan. [employer] Other 11-01-2021 Evaluation note* Encounter Date Diagnosis [...] note writ ten by Donita Henson CMA, [employer] Tester. Edited and approved by Dr. Charles Solares MD. [employer] Other 10-28-2021 Evaluation note* Encounter Date Diagnosis [...] message to Dr. Solares passing this along. [employer] Other 10-04-2021 Evaluation note* Encounter Date Diagnosis [...] Jan, Other chronic pain (ICD-10 - G89.29) [employer] Other Evaluation noteNo InformationNort [employer] Other Evaluation noteNo assessment information available [facility] Work Phone: Evaluation note* Diagnosis Onset Date Resolution Status Osteoarthritis of carpometac arpal joint of left thumb acute Primary osteoarthritis, left hand acute BPH (benign prostatic hyperplasia) chronic Hemorrhoid chronic Other spondylosis with radiculopathy, lumbar region chronic Blood present in stool nonea okive [facility] Work Phone: Evaluation note* Diagnosis Onset Date Resolution Status BPH (benign prostatic hyperplasia) chronic Hemorrhoid chronic Other spondylosis with radiculopathy, lumbar region chronic Blood present in stool nonea ctive Other spondylosis with radiculopathy, lumbar region chronic Preoperative clearance nonea [facility] Work Phone: History and physical note Author Nash Cardenas [facility] September 26, 2022 9:39am Note Date/Time September 26, 2022 9:39 am [facility] [address] [place] [address] Gastroenterology H&P Signed Patient: Neal Parker MR#: [id number] : 1980 Acct:[id number] Age/Sex: 41 / M Adm Date: 3 Loc: Room: Type: [facility] Attending Dr: Nash Cardenas MD Copies to: [...] <Electronically signed by Nash Cardenas MD> 09/26/22938 [facility] Work Phone: [facility] general Narrative - Reported* Type Description Date Medical History Hx spinal fusion Medical History Lumbar radiculopathy Medical History Trigger point Surgical History L5 S1 fusion 2014 Surgical History Left lower leg surgery (multipl e fractures) Surgical History foreign body excision right mid dle finger Hospitalization History pneumonia as [place] Other [facility] Narrative - Reported* Type Description Date Medical History Hx spinal fusion Medical History Lumbar radiculopathy Medical History Trigger point Surgical History L5 S1 fusion 2014 Surgical History Left lower leg surgery (multipl e fractures) Surgical History foreign body excision right mid dle finger Surgical History lumbar facet nerve b lock injection - Dr. Saldivar in [place] 11/2022 Hospitalization History pneumonia as [place] Other [facility] Narrative - Reported* Type Description Date Medical History Hx spinal fusion Medical History Lumbar radiculopathy Medical History Trigger point Surgical History L5 S1 fusion 2014 Surgical History Left lower leg surgery (multipl e fractures) Surgical History foreign body excision right mid dle finger Surgical History lumbar facet nerve b lock injection - Dr. Saldivar [place] 11/2022 Surgical History R side nerve ablation 01/2023 Hospitalization History pneumonia as [place] Other Hospital Discharge instructions Additional Instructions DISCHARGE [...] years. -Follow up with PCP. -Office number [phone].[facility] Work Phone: Reason for visit NarrativePatient here at the request of Dr. Vuong for evaluation & treatment of abdominal pain, change in bowel habits, weight loss, rectal bleeding.[employer] Other Reason for visit NarrativeProcedure appt and DNR-A signNort [employer] Other Summary Purpose Family History No Family [...] Reason for Referral Reason Dr. Villanueva to [facility] surgical options, steroid injections not providing long lasting benefit Diagnosis 1 Primary osteoarthrit is of both first carpometacarpal joints (M18.0) Referral Organization [facility] Family Nisha Santos Referring Provider First Name Maribeth Referring Provider Last Name Carolann Referring Provider Specialty Family Prac patito Referred Organization [facility] Referred Address [address] [place], [place],[address] Referred Provider Specialty ORTHOPEDIC S URGEON Referral Priority Routine Reason * Waiting for appt CT and KUB normal, generalized pain of unclear etiology Diagnosis 1 Generalized abdomina l pain (R10.84) Referral Organization [facility] [employer] Nisha Santos Referring Provider First Name Maribeth Referring Provider Last Name Carolann Referring Provider Specialty Family Prac patito Referred Organization [facility] Gastroenterolo gy Referred Provider Dwayne Salas Referred Address [address] ,[place], [place],[address] Referred Provider Specialty Gastroentero logy Referral Priority [...] Referred Organization [facility] Referred Address [address] [place] Referred Provider Specialty Pain Medicin e Referral Priority Routine General Notes Rebeca Vivar 11:08:53 AM >referral received and faxed Clinical Notes P- [phone]- Chief Complaint and Reason for Visit Chief [...] section and content) DATE CREATED AUTHOR 05/25/2018 [facility] DATE CREATED AUTHOR AUTHOR'S ORGANIZ ATION 06/11/2018 [facility] DATE CREATED AUTHOR AUTHOR'S ORGANIZ ATION 09/15/2022 [facility] DATE CREATED AUTHOR AUTHOR'S ORGANIZ ATION 10/04/2022 [facility] DATE CREATED AUTHOR AUTHOR'S ORGANIZ ATION 10/11/2023 [facility] REASON FOR VISIT (unrecogniz ed section and content) 1 MOback pain getting worse, pain management not working4 WK RECHECKDISCUSS DISABILITY OPTIONSLab results1 MO1 MONTH RECHECKCHANTIX1 month Follow upscript requestpaperwork1 MONTH FOLLOW UPCHANTIX refill/discuss back concerns1 MONTHNo InformationNo InformationPROCEDURE NOTES1 year Follow up/ AWVAbdominal Pain/ incontinencenew medication.ReferralPain ManagementB/L thumb steroid inj./ sign DNR-AORDERS PER DR Han bpelevated BP at PM in [place], no sxinjection L thumb1 year Follow upLosartan/HCTZsteroid injection Care Teams (unrecognized sec tion and content) Team Status: Active Member Role Status Dates Maribeth Vuong , DO Primary Care Provider Active Team Status: Inactive Member Role Status Dates Maribeth uVong , DO Primary Care Provi aisha, Attending [...] BE BASED ON THE PRIMARY CLINICAL RECORDS. [facility] [employer] [facility]. provides no warranty or guarantee of the accuracy or completeness of information in this document.
== END 2023-10-29 08:54 | disposition home or self-care (01) ==
LOC: RAD 08:54
PROVIDERS: Visit Provider Nurse Practitioner
DX: M54.12 Radiculopathy, cervical region (principal)
CPT/HCPCS: 72050

== ENCOUNTER 2023-11-07 11:02 | Outpatient (OUT) | payer OTHER, SELFPAY ==
--- NOTE | 2023-11-07 | XR_ITS ---
[address] [address] Patient Name: NEAL PARKER MRN: [id number] date: 1980 Sex: M Assigned Patient Location: Current Patient Location: Accession/Order Number: [id number] Exam Date: 11/07/2023 11:02 Report Date: 11/08/2023 05:54 At the request of: ANTONIO RAPHAEL Procedure: XR lumbar spine 2-3V EXAMINATION: XR lumbar spine 2-3V HISTORY: LUMBAR SPINE PAIN COMPARISON: XR lumbar spine 07/25/2023 FINDINGS: BONES: Slight right convex curvature lumbar spine. Stable grade 1 anterolisthesis of L5 on S1 with mechanical fusion L5-S1 via bilateral pedicle screws. Posterior decompression of L5. DISC SPACES: [Intervertebral disc spacers L5-S1; unchanged. PARASPINOUS: Negative. No paraspinous abnormality is seen. OTHER: Negative. XR/XR lumbar spine 2-3V IMPRESSION: 1. Interval placement of pedicle screws along left side of L5-S1 from mechanical fusion. 2. Stable previously placed right-side pedicle screws and intervertebral disc spacers L5-S1. Electronically authenticated by: DAMARIS ESPINOSA Date: 11/08/2023 05:54
--- OUTSIDE RECORDS SUMMARY | 2023-11-07 11:08 | XMS_ITS | CCD ---
Author Organization [facility] CliniSyvt Care Team Providers Care Filter Helper Name Role Phone Lashay Li Admitting Unavailable Lashay Li Attending Unavailable RENE MORRELL Primary Care Unavailable PHI RENE Attending Unavaila Charles Cohen Unavailable Carolann, Maribeth Unavailable Carolann, Maribeth Unavailable Carolann, Maribeth Unavailable Carolann, DO Maribeth Williamson Primary Care Provider [phone] Carolann, DO Maribeth Williamson Attending Provider Igor [...] Admitting Jessy vailable JOEL ., DR JESSICA Heurta Attending Unavailable JOEL ., DR JESSICA Huerta Admitting Unavailable CAROLANN, MARIBETH Primary Care Unavailable SCHUSTER ., BRIT Consulting Unavailable CAROLANN, MARIBETH Consulting Unavailable SCHUSTER ., BRIT Consulting Unavailable CAROLANN, MARIBETH Primary Care Unavailable SCHUSTER ., BRIT Admitting Unavailable SCHUSTER ., BRIT Attending Unavailable CAROLANN, MARIBETH Consulting Unavailable JOEL ., DR JESSICA Huerta Attending Unavailable CAROLANN, MARIBETH Primary Care Unavailable JOEL ., DR JESSICA Heurta Admitting Unavailable SCHUSTER ., BRIT Consulting Unavailable [...] Carolann, DO Maribeth N Primary Care Provider MD Nisha Villanueva Attending Provider [facility] Keri PLEITEZ, Diaz Mercer Attending UnavailDiaz Mckinney MD Admitting Unavailmary Rodgers MD, Homar Mayers Consulting Unavail able Maribeth Vuong DO Primary [facility] Jessyvai Qamar Higgins Consulting Unavailable Diaz Valdovinos MD Attending Unavailabl e Maribeth Vuong DO [facility] Unavai labDiaz Casillas MD Attending Unavailabl Maribeth Guy DO [facility] Unavai lable Allergies Allergy Classification Reported Allergen(s) Allergy Type Date of Onset Reaction(s) Facility (18 sources) gabapentin; Translations: [gabapentin] Drug Allergy 3 dizziness, sleepy, Drowsy, Drowsy, dizziness, sleepy [facility] (1 source) gabapentin Drug Allergy [facility] Repository (12 sources) zonisamide; Translations: [zonisamide] Drug Allergy 3 diarrhea [facility] (1 source) gabapentin Drug Allergy 3 [facility] Repository (1 source) zonisamide Drug Allergy [address] [place] [address] Repository Medications Current Medications Medication Drug Class(es) [...] Jun, Active take 1 capsule by mo [facility] every twenty-four hours Cymbalta 60 MG 1 capsule Orally Once a day for 90 days Active Handicap placards as directed (18 sources) Start: 2018 Handicap placards as directed as directed as directed as directed Dec, Active hydroCHLOROthiazide 12.5 mg / losartan potassium 50 mg oral tablet (7 sources) Thiazide Diuretic, Angiotensin 2 Receptor Avery Start: 07-17-2023 take 1 tablet by mouth once daily Losartan-[place] chlorothiazide Active 1 TAB PO Daily July [...] Once a day Active polyethylene glycol 3350 837192 mg / potassium chloride 2970 mg / sodium bicarbonate 6740 mg / sodium chloride 5860 mg / sodium sulfate 52766 mg powder for oral solution (6 sources) [...] Jun, Active take 1 tablet by elizabeth three times daily as needed oxyCODONE-Acetaminophen 7.5-325 [...] 07-12-2022 Episodic Other aftercare (1 source) Other longterm (current) drug therapy; Translations: [OTH [facility] CURRENT [...] MDRD (S/P/Bld) [Vol rate/Area] mL/min/{1.73_m2} Normal >=60 [facility] Comment on above: Result Comment: [facility] Laboratories have implemented the eGFR calculation approach [...] Age = years Performed By: #### C [id number] #### [address] [address] Basic Metabolic Profileon Anion gap [Moles/Vol] 5 mmol/L Normal 4-12 [facility] Comment on above: Performed By: #### C [id number] #### [address] [address] Calcium [Mass/Vol] 8.2 mg/dL Low 8.5-10.3 [facility] Comment on above: Performed By: #### C D:[id number] #### [address] [address] Chloride [Moles/Vol] 106 mmol/L Normal 98-110 [facility] Comment on above: Performed By: #### C [id number] #### [address] [address] CO2 [Moles/Vol] 27 mmol/L Normal 22-32 [facility] Comment on above: Performed By: #### C D:[id number] #### [address] [address] Creatinine [Mass/Vol] 0.75 mg/dL Normal 0.61-1.24 [facility] Comment on above: Performed By: #### C [id number] #### [address] [address] Glucose [Mass/Vol] 88 mg/dL Normal 70-99 [facility] Comment on above: Performed By: #### C [id number] #### [address] [address] Potassium [Moles/Vol] 3.9 mmol/L Normal 3.4-4.8 [facility] Comment on above: Performed By: #### C D:[id number] #### [address] [address] Sodium [Moles/Vol] 138 mmol/L Normal 133-142 [facility] Comment on above: Performed By: #### C [id number] #### [address] [address] Urea nitrogen [Mass/Vol] 13 mg/dL Normal 8-26 [facility] Comment on above: Performed By: #### C D:[id number] #### [address] [address] Urea nitrogen/Creatinine [Mass ratio] 17.3 mg/mg Normal 10.0-20.0 [facility] Comment on above: Performed By: #### C D:[id number] #### [address] [address] CBC w/ Diffon 10-02-2023 Erythrocyte distribution width (RBC) [Ratio] 14.4 % Normal 11.6-14.8 [facility] Comment on above: Performed By: #### E GFR #### [address] [address] Hematocrit (Bld) [Volume fraction] 37.0 % Low 41.0-53.0 [facility] Comment on above: Performed By: #### E GFR #### [address] [address] Hemoglobin (Bld) [Mass/Vol] 12.1 g/dL Low 13.5-17.5 [facility] Comment on above: Performed By: #### E GFR #### [address] [address] MCH (RBC) [Entitic mass] 30.2 pg Normal 27.0-35.0 [facility] Comment on above: Performed By: #### E GFR #### [address] [address] MCHC 32.6 % Normal 31.0-37.0 [facility] Comment on above: Performed By: #### E GFR #### [address] [address] MCV (RBC) [Entitic vol] 92.6 fL Normal 80.0-100.0 [facility] Comment on above: Performed By: #### E GFR #### [place] [id number] Platelet 174 x10*3/mcL Normal 150-450 [facility] Comment on above: Performed By: #### E GFR #### [address] [address] Platelet mean volume (Bld) [Entitic vol] 10.7 fL High 6.7-10.6 [facility] Comment on above: Performed By: #### E GFR #### [address] [address] RBC 4.00 x10*6/mcL Low 4.30-5.80 [facility] Comment on above: Performed By: #### E GFR #### [address] [address] WBC 11.9 x10*3/mcL High 4.5-11.0 [facility] Comment on above: Performed By: #### E GFR #### [address] [address] Diff Autoon 10-02-2023 Baso Absolute 0.0 x10*3/mcL Normal 0.0-0.2 [facility] Comment on above: Performed By: #### C D:[id number] #### [address] [address] Basophils/100 WBC (Bld) 0.2 % Normal 0.0-1.2 [facility] Comment on above: Performed By: #### C D:[id number] #### [address] [address] Eos Absolute 0.2 x10*3/mcL Normal 0.0-0.4 [facility] Comment on above: Performed By: #### C D:[id number] #### [address] [address] Eosinophils/100 WBC (Bld) 1.5 % Normal 0.0-6.1 [facility] Comment on above: Performed By: #### C D:[id number] #### [address] [address] Lymph Absolute 5.1 x10*3/mcL High 1.0-4.8 [facility] Comment on above: Performed By: #### C D:[id number] #### [address] [address] Lymphocytes/100 WBC (Bld) 42.9 % High 27.2-40.8 [facility] Comment on above: Performed By: #### C D:[id number] #### [address] [address] [place] Absolute 0.9 x10*3/mcL Normal 0.3-1.1 [facility] Comment on above: Performed By: #### C D:[id number] #### [address] [address] Monocytes/100 WBC (Bld) 7.1 % Normal 4.7-13.9 [facility] Comment on above: Performed By: #### C D:[id number] #### [address] [address] Neutro Absolute 5.7 x10*3/mcL Normal 1.8-7.7 [facility] Comment on above: Performed By: #### C [id number] #### [address] [address] Neutro Auto 48.3 % Normal 47.2-70.8 [facility] Comment on above: Performed By: #### C D:[id number] #### [address] [address] Inpatient Clinical Summaryon 10-02-2023 Inpatient Clinical Summary [address] [address] [place] [address] Clinical Summary Person Information Name: Neal Parker Age: 42 Years : 1980 Sex: Male PCP: Maribeth Vuong DO Marital Status: Phone: PCP: Race: White Ethnicity: Not or Language: Moroccan Visit Id: Visit Reason: Speciality: Acuity: Enc Type: Inpatient Med Service: Surgery Arrival: 09/30/2023 08:56:12 Discharge: Dispo Type: Address: [address] [place] [phone] Diagnosis: Discharged To: Home Treatments: Devices/Equipment: Professional [...] range between ( 27.2 and 40.8 ) [place] Auto: 7.1 % -- Normal range between [...] range between ( 41.0 and 53.0 ) [place] Absolute: 0.9 x10 MCH: 30.2 pg -- [...] to r (more content not included)... Normal [facility] .eGFRon 10-01-2023 GFR/1.73 sq M.predicted MDRD (S/P/Bld) [Vol rate/Area] mL/min/{1.73_m2} Normal >=60 [facility] Comment on above: Order Comment: Order added by Discern rule Result Comment: [facility] Laboratories have implemented the eGFR calculation approach [...] years Performed By: #### E GFR #### [address] [address] Basic Metabolic Profileon Calcium [Mass/Vol] 8.4 mg/dL Low 8.5-10.3 [facility] Comment on above: Performed By: #### E GFR #### [address] [address] Anion gap [Moles/Vol] 6 mmol/L Normal 4-12 [facility] Comment on above: Performed By: #### E GFR #### [address] [address] Chloride [Moles/Vol] 107 mmol/L Normal 98-110 [facility] Comment on above: Performed By: #### E GFR #### [address] [address] CO2 [Moles/Vol] 26 mmol/L Normal 22-32 [facility] Comment on above: Performed By: #### E GFR #### [address] [address] Creatinine [Mass/Vol] 0.97 mg/dL Normal 0.61-1.24 [facility] Comment on above: Performed By: #### E GFR #### [address] [address] Glucose [Mass/Vol] 119 mg/dL High 70-99 [facility] Comment on above: Performed By: #### E GFR #### [address] [address] Potassium [Moles/Vol] 4.1 mmol/L Normal 3.4-4.8 [facility] Comment on above: Performed By: #### E GFR #### [address] [address] Sodium [Moles/Vol] 139 mmol/L Normal 133-142 [facility] Comment on above: Performed By: #### E GFR #### [address] [address] Urea nitrogen [Mass/Vol] 15 mg/dL Normal 8-26 [facility] Comment on above: Performed By: #### E GFR #### [address] [address] Urea nitrogen/Creatinine [Mass ratio] 15.5 mg/mg Normal 10.0-20.0 [facility] Comment on above: Performed By: #### E GFR #### [address] [address] CBC w/ Diffon 10-01-2023 Erythrocyte distribution width (RBC) [Ratio] 13.9 % Normal 11.6-14.8 [facility] Comment on above: Performed By: #### E GFR #### [address] [address] Hematocrit (Bld) [Volume fraction] 38.3 % Low 41.0-53.0 [facility] Comment on above: Performed By: #### E GFR #### [address] [address] Hemoglobin (Bld) [Mass/Vol] 12.5 g/dL Low 13.5-17.5 [facility] Comment on above: Performed By: #### E GFR #### [place] [id number] MCH (RBC) [Entitic mass] 30.2 pg Normal 27.0-35.0 [facility] Comment on above: Performed By: #### E GFR #### [place] [id number] MCHC 32.7 % Normal 31.0-37.0 [facility] Comment on above: Performed By: #### E GFR #### [place] [id number] MCV (RBC) [Entitic vol] 92.3 fL Normal 80.0-100.0 [facility] Comment on above: Performed By: #### E GFR #### [place] [id number] Platelet 175 x10*3/mcL Normal 150-450 [facility] Comment on above: Performed By: #### E GFR #### [place] [id number] Platelet mean volume (Bld) [Entitic vol] 11.3 fL High 6.7-10.6 [facility] Comment on above: Performed By: #### E GFR #### [place] [id number] RBC 4.15 x10*6/mcL Low 4.30-5.80 [facility] Comment on above: Performed By: #### E GFR #### [place] [id number] WBC 15.0 x10*3/mcL High 4.5-11.0 [facility] Comment on above: Performed By: #### E GFR #### [place] [id number] Diff Autoon 10-01-2023 Baso Absolute 0.0 x10*3/mcL Normal 0.0-0.2 [facility] Comment on above: Performed By: #### E GFR #### [address] [address] Basophils/100 WBC (Bld) 0.1 % Normal 0.0-1.2 [facility] Comment on above: Performed By: #### E GFR #### [address] [address] Eos Absolute 0.0 x10*3/mcL Normal 0.0-0.4 [facility] Comment on above: Performed By: #### E GFR #### [address] [address] Eosinophils/100 WBC (Bld) 0.0 % Normal 0.0-6.1 [facility] Comment on above: Performed By: #### E GFR #### [address] [address] Lymph Absolute 1.6 x10*3/mcL Normal 1.0-4.8 [facility] Comment on above: Performed By: #### E GFR #### [address] [address] Lymphocytes/100 WBC (Bld) 10.9 % Low 27.2-40.8 [facility] Comment on above: Performed By: #### E GFR #### [address] [address] [place] Absolute 0.9 x10*3/mcL Normal 0.3-1.1 [facility] Comment on above: Performed By: #### E GFR #### [address] [address] Monocytes/100 WBC (Bld) 6.2 % Normal 4.7-13.9 [facility] Comment on above: Performed By: #### E GFR #### [address] [address] Neutro Absolute 12.4 x10*3/mcL High 1.8-7.7 [facility] Comment on above: Performed By: #### E GFR #### [address] [address] Neutro Auto 82.8 % High 47.2-70.8 [facility] Comment on above: Performed By: #### E GFR #### [facility] [address] 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 Operation L5-S1 right HW removal, L5-S1 revision right decompression and revision fusion Surgeon(s) St Keri PLEITEZ, Diaz Mercer (Surgeon - Primary) Orderlies Teacher Qamar Recio PA-C ([employer]) Anesthesia General Trevor PLEITEZ, Zuleima Maier (Yarn Sorter) Kurt Nieves (Provider) Estimated Blood Loss 150 mL Urine Output 800.0 mL Findings loose screws Specimen(s) none Complications none Catheters, Drains, Tubes Device: Rodney Tray 16FR Latex Free [id number] Electronically signed by Qamar Recio PA-C 09/30/23 12:16 EDT Normal [facility] XR Spine Lumbosacral 1 View in [...] Electronically Signed in Other Vendor System) Normal [facility] XR Chest 2 Viewson XR Chest [...] Electronically Signed in Other Vendor System) Normal [facility] .eGFRon 09-10-2023 GFR/1.73 sq M.predicted MDRD (S/P/Bld) [Vol rate/Area] mL/min/{1.73_m2} Normal >=60 [facility] Comment on above: Result Comment: [facility] Laboratories have implemented the eGFR calculation approach [...] years Performed By: #### E GFR #### [facility] [address] [place] [address] ABO/Rhon 09-10-2023 ABO/Rh SD 09/30/23 ABO/Rh: A POS Normal [facility] Comment on above: Performed By: #### A ABRIL #### [facility] (DEFAULT) [address] [place] [address] [id number] [facility] (UNKNOWN) [address] [place] [address] ABSC Autoon 09-10-2023 ABSC Auto Negative Normal [facility] Comment on above: Performed By: #### A SA #### [facility] (UNKNOWN) [address] [place] [address] Basic Metabolic Profileon Anion gap [Moles/Vol] 8 mmol/L Normal 4-12 [facility] Comment on above: Performed By: #### C D:[id number] #### [facility] [address] [place] [address] Calcium [Mass/Vol] 10.3 mg/dL Normal 8.5-10.3 [facility] Comment on above: Performed By: #### C D:[id number] #### [facility] [address] [place] [address] Chloride [Moles/Vol] 101 mmol/L Normal 98-110 [facility] Comment on above: Performed By: #### C D:[id number] #### [facility] [address] [place] [address] CO2 [Moles/Vol] 31 mmol/L Normal 22-32 [facility] Comment on above: Performed By: #### C [id number] #### [address] [address] Creatinine [Mass/Vol] 1.05 mg/dL Normal 0.61-1.24 [facility] Comment on above: Performed By: #### C D:[id number] #### [address] [address] Glucose [Mass/Vol] 94 mg/dL Normal 70-99 [facility] Comment on above: Performed By: #### C D:[id number] #### [address] [address] Potassium [Moles/Vol] 4.0 mmol/L Normal 3.4-4.8 [facility] Comment on above: Performed By: #### C D:[id number] #### [address] [address] Sodium [Moles/Vol] 140 mmol/L Normal 133-142 [facility] Comment on above: Performed By: #### C D:[id number] #### [address] [address] Urea nitrogen [Mass/Vol] 13 mg/dL Normal 8-26 [facility] Comment on above: Performed By: #### C D:[id number] #### [address] [address] Urea nitrogen/Creatinine [Mass ratio] 12.4 mg/mg Normal 10.0-20.0 [facility] Comment on above: Performed By: #### C D:[id number] #### [address] [address] CBCon 09-10-2023 Erythrocyte distribution width (RBC) [Ratio] 14.1 % Normal 11.6-14.8 [facility] Comment on above: Performed By: #### C D:[id number] #### [address] [address] Hematocrit (Bld) [Volume fraction] 46.6 % Normal 41.0-53.0 [facility] Comment on above: Performed By: #### C D:[id number] #### [address] [address] Hemoglobin (Bld) [Mass/Vol] 15.5 g/dL Normal 13.5-17.5 [facility] Comment on above: Performed By: #### C D:[id number] #### [address] [address] MCH (RBC) [Entitic mass] 30.9 pg Normal 27.0-35.0 [facility] Comment on above: Performed By: #### C D:[id number] #### [place] [address] MCHC 33.3 % Normal 31.0-37.0 [facility] Comment on above: Performed By: #### C D:[id number] #### [place] [id number] MCV (RBC) [Entitic vol] 92.9 fL Normal 80.0-100.0 [facility] Comment on above: Performed By: #### C D:[id number] #### [place] [id number] Platelet 191 x10*3/mcL Normal 150-450 [facility] Comment on above: Performed By: #### C D:[id number] #### [address] [address] Platelet mean volume (Bld) [Entitic vol] 11.3 fL High 6.7-10.6 [facility] Comment on above: Performed By: #### C D:[id number] #### [address] [address] RBC 5.02 x10*6/mcL Normal 4.30-5.80 [facility] Comment on above: Performed By: #### C D:[id number] #### [address] [address] WBC 8.2 x10*3/mcL Normal 4.5-11.0 [facility] Comment on above: Performed By: #### C D:[id number] #### [address] [address] MRSA, PCRon 09-10-2023 LAB ONLY Result Called? No Normal [facility] Comment on above: Performed By: #### E GFR #### [place] [id number] Methicillin Resistant Staph aurus(MRSA) Not detected Normal Not Detected [facility] Comment on above: Result Comment: Mut ations or polymorphisms in primer or probe binding regions may affect detection of new or unknown MRSA variants resulting in a false negative. The [employer] Xpert MRSA Assay is a qualitative in [...] clinician. Performed By: #### E GFR #### [address] [address] PTon 09-10-2023 INR Coag (PPP) [Relative time] 0.9 {INR} Normal <=3.5 [facility] Comment on above: Result Comment: INR has no normal range. INR Therapeutic range is: 2.0-3.0 (AF, CVA, TIAs, DVT prophylaxis, acute DVT) 2.5-3.5 (Mech heart valves, recurrent thrombosis/emboli) Performed By: #### P TINR #### [place] [id number] PT Coag (PPP) [Time] 9.8 s Normal 9.2-12.0 [facility] Comment on above: Performed By: #### P TINR #### [facility] [address] [place] [address] PTTon 09-10-2023 aPTT Coag (Bld) [Time] 22.0 s Normal 19.5-28.2 [facility] Comment on above: Performed By: #### C D:[id number] #### [facility] [address] [place] [address] Amylaseon 07-15-2022 Amylase [Catalytic activity/Vol] 43 U/L Normal 29-103 [facility] Comment on above: Order Comment: Reaso n for Exam Generalized abdominal pain;Slow transit constipation;Medicat Reason for Exam Generalized abdominal pain;Medication monitoring encounter NOT FASTING. JKW Performed By: #### C BC, POOJA, LIPASE #### [facility] [address] Amylase 43 U/L Normal 29-103 U/L [employer] Other Amylase [Enzymatic activity/ volume] in Serum or PlasmaOrdered By: Maribeth Vuong on 07-15-2022 Amylase [Catalytic activity/Vol] 43 U/L 29-103 [facility] Basophils Auto (Bld) [#/Vol] Ordered By: Maribeth Vuong on 07-15-2022 Basophils (Bld) [#/Vol] 0.0 10*3/uL 0.0-0.2 [facility] Basophils/100 WBC Auto (Bld) Ordered By: Maribeth Vuong on 07-15-2022 Basophils/100 WBC (Bld) 0.5 % . F [facility] CBC W MANUAL DIFFon 07-16-19 23 ATYPICAL LYMPH # Normal [facility] Comment on above: Performed By: #### C JEAN ####[facility] [address] [place], [place] [address]UlIbrahima Keymera David ATYPICAL LYMPH % Normal [facility] Comment on above: Performed By: #### C JEAN ####[facility] [address] [place] [id number]. Yilan David BAND # 0.1 103/ul Normal 0.0-0.3 [facility] Comment on above: Performed By: #### C JEAN ####[facility] [address] [place] [address]Dr. Yilan David BAND % 1 % Normal 0-5 [facility] Comment on above: Performed By: #### C JEAN ####[facility] [address] [place] [address]Dr. Yimera David BASOM # 0.00 103/ul Normal 0.00-0.10 [facility] Comment on above: Performed By: #### C JEAN ####[facility] [address] [place], [place] [address]Dr. Sydney David BASOM % 0.0 % Critically low 0.2-2.0 The [facility] Comment on above: Performed By: #### C JEAN ####[facility] Ym[address] [place], [place] [address]Dr. Yilan David BLAST # Normal The [facility] Comment on above: Performed By: #### C JEAN ####[facility] Jik[address]sc[address] [place], [place] [address]Dr. Yilan David BLAST % Normal [facility] Comment on above: Performed By: #### C JEAN ####[facility] [address] [place] [address]Dr. Sydney David CORRECTED WBC Normal 4.0-11.0 The [facility] Comment on above: Performed By: #### C JEAN ####[facility] Q[address] [place] [address]Dr. Yimera David EOS # 0.24 103/ul Normal 0.00-0.70 [facility] Comment on above: Performed By: #### C JEAN ####[facility] [address] [place], [place] [address]Dr. Yimera David EOS% 3.0 % Normal 0.9-7.0 [facility] Comment on above: Performed By: #### C JEAN ####[facility] Bppnszpq[address] [place], [place] [address]Yn. Sydney David HCT 46.4 % Normal 42.0-54.0 [facility] Comment on above: Performed By: #### C JEAN ####[facility] Mdiizixlha4076 [place], [place] [address]Vs. Sydney David HGB 15.4 g/dl Normal 14.0-18.0 [facility] Comment on above: Performed By: #### C JEAN ####[facility] Vpfftzohof7983 [place], [place] [address]Rp. Sydney David LYMPHM # 3.36 103/ul Normal 1.20-3.80 [facility] Comment on above: Performed By: #### C JEAN ####[facility] Gyxp[address]qj[address] [place] [id number]. Sydney David LYMPHM% 42.0 % Normal 20.5-60.0 [facility] Comment on above: Performed By: #### C JEAN ####[facility] Xub[address]rzjgh[address] [place] [address]Dr. Sydney David MCH 30.3 pg Normal 25.9-34.0 [facility] Comment on above: Performed By: #### C JEAN ####[facility] Mqpffomhkg[address] [place] [id number]. Sydney David MCHC 33.2 g/dl Normal 29.9-35.2 [facility] Comment on above: Performed By: #### C JEAN ####[facility] Rkivoubrsf[address] [place], [place] [address]Mm. Sydney David MCV 91.3 fL Normal 80.0-94.0 [facility] Comment on above: Performed By: #### C JEAN ####[facility] Wou[address]bmiib[address] [place] [id number]. Sydney David METAMYELOCYTE # Normal The [facility] Comment on above: Performed By: #### C JEAN ####[facility] Eqjnpdflkp[address] [place] [id number]. Yilan David METAMYELOCYTE % Normal [facility] Comment on above: Performed By: #### C BCMAN ####[facility] Qhlvfqnxtd94[address] [place], [place] [address]De. Sydney David MONOM# 0.80 103/ul Normal 0.30-0.80 [facility] Comment on above: Performed By: #### C BCMAN ####[facility] Ukchkvwesg[address] [place], [place] [address]Pa. Sydney David MONOM% 10.0 % Normal 1.7-12.0 [facility] Comment on above: Performed By: #### C BCDOLORES ####[facility] Tfqbwoxaow[address] [place] [address]Dr. Sydney David MPV 11.8 fL Normal 9.5-13.5 [facility] Comment on above: Performed By: #### C JEAN ####[facility] Nqynfqqxyz[address] [place] [address]Dr. Sydney David MYELOCYTE # Normal [facility] Comment on above: Performed By: #### C JEAN ####[facility] Druyexmqes[address] [place], [place] [address]Rd. Sydney David MYELOCYTE % Normal [facility] Comment on above: Performed By: #### C BCDOLORES ####[facility] Manulpzxiv[address] [place], [place] [address]Rd. Sydney David NRBC Normal [facility] Comment on above: Performed By: #### C BCDOLORES ####[facility] [address]vt[address] [place] [id number]. Sydney David PLT 249 103/ul Normal 150-450 [facility] Comment on above: Performed By: #### C BCDOLORES ####[facility] Ykwepgemkm[address] [place] [address]Dr. Sydney David RBC 5.08 106/ul Normal 4.70-6.10 [facility] Comment on above: Performed By: #### C BCDOLORES ####[facility] [address]uz[address]btqj[address] [place] [address]Dr. Sydney David RDW 13.1 % Normal 11.0-15.0 [facility] Comment on above: Performed By: #### C JEAN ####[facility] Dyzucexopo[address] [place], [place] [address]Hf. Sydney David SEG # 3.52 103/ul Normal 1.40-6.50 [facility] Comment on above: Performed By: #### C BCMAN ####[facility] Plbev[address] [place], [place] [address]Dn. Sydney David SEG % 44.0 % Normal 43.0-75.0 [facility] Comment on above: Performed By: #### C BCDOLORES ####[facility] Ohnauwjfri4[address] [place], [place] [address]Se. Sydney David WBC 8.0 103/ul Normal 4.0-11.0 [facility] Comment on above: Performed By: #### C BCDOLORES ####[facility] Tudoicyzgz[address] [place], [place] [address]Vx. Sydney David CT ABD/PELV W CONon 07-16-19 [...] No acute abnormality. Electronically authenticated by: EVANGELIST SYLVESTERCONG Date: 2022-07-15 16:53 Normal [facility] Complete Blood Count Auto Di ffon 07-15-2022 Basophils (Bld) [#/Vol] 0.0 10*3/uL Normal 0.0-0.2 [facility] Comment on above: Order Comment: Reaso n for Exam Medication monitoring encounter Result Comment: PERF ORMED BY: [place] [address] PATHOLOGIST ZINC PLATE GRAINER ALEM GARCIA M.D. Performed By: #### C BC, POOJA, LIPASE #### [address] Basophils/100 WBC (Bld) 0.5 % Normal . [facility] Comment on above: Order Comment: Reaso n for Exam Medication monitoring encounter Performed By: #### C BC, POOJA, LIPASE #### [address] Eosinophils (Bld) [#/Vol] 0.6 10*3/uL High 0.0-0.45 [facility] Comment on above: Order Comment: Reaso n for Exam Medication monitoring encounter Performed By: #### C BC, POOJA, LIPASE #### [address] Eosinophils/100 WBC (Bld) 6.1 % Normal . [facility] Comment on above: Order Comment: Reaso n for Exam Medication monitoring encounter Performed By: #### C BC, POOJA, LIPASE #### [address] Erythrocyte distribution width (RBC) [Ratio] 13.6 % Normal 12.0-14.8 [facility] Comment on above: Order Comment: Reaso n for Exam Medication monitoring encounter Performed By: #### C BC, POOJA, LIPASE #### [address] Hematocrit (Bld) [Volume fraction] 47.4 % Normal 38.8-50.0 [facility] Comment on above: Order Comment: Reaso n for Exam Medication monitoring encounter Performed By: #### C BC, POOJA, LIPASE #### [address] Hemoglobin (Bld) [Mass/Vol] 15.5 g/dL Normal 13.0-17.0 [facility] Comment on above: Order Comment: Reaso n for Exam Medication monitoring encounter Performed By: #### C BC, POOJA, LIPASE #### [address] Lymphocytes (Bld) [#/Vol] 4.3 10*3/uL Normal 1.00-4.8 [facility] Comment on above: Order Comment: Reaso n for Exam Medication monitoring encounter Performed By: #### C BC, POOJA, LIPASE #### [address] Lymphocytes/100 WBC (Bld) 46.5 % Normal . [facility] Comment on above: Order Comment: Reaso n for Exam Medication monitoring encounter Performed By: #### C BC, POOJA, LIPASE #### [address] MCH (RBC) [Entitic mass] 30.2 pg Normal 27.5-35.2 [facility] Comment on above: Order Comment: Reaso n for Exam Medication monitoring encounter Performed By: #### C BC, POOJA, LIPASE #### [address] MCV (RBC) [Entitic vol] 92.3 fL Normal 83.5-101 F [facility] Comment on above: Order Comment: Reaso n for Exam Medication monitoring encounter Performed By: #### C BC, POOJA, LIPASE #### [address] Mean Corpuscular HGB Conc 32.7 g/dL Normal 32.5-35.6 [facility] Comment on above: Order Comment: Reaso n for Exam Medication monitoring encounter Performed By: #### C BC, POOJA, LIPASE #### [address] Monocytes (Bld) [#/Vol] 0.8 10*3/uL Normal 0.0-0.8 [facility] Comment on above: Order Comment: Reaso n for Exam Medication monitoring encounter Performed By: #### C BC, POOJA, LIPASE #### [facility] [address] Monocytes/100 WBC (Bld) 8.3 % Normal . [facility] Comment on above: Order Comment: Reaso n for Exam Medication monitoring encounter Performed By: #### C BC, POOJA, LIPASE #### [facility] [address] Neutrophils (Bld) [#/Vol] 3.6 10*3/uL Normal 1.8-7.7 [facility] Comment on above: Order Comment: Reaso n for Exam Medication monitoring encounter Performed By: #### C BC, POOJA, LIPASE #### [address] Neutrophils/100 WBC (Bld) 38.6 % Normal . [facility] Comment on above: Order Comment: Reaso n for Exam Medication monitoring encounter Performed By: #### C BC, POOJA, LIPASE #### [facility] [address] [place] [address] NRBC% 0.0 /100{WBC} Normal 0-0.5 [facility] Comment on above: Order Comment: Reaso n for Exam Medication monitoring encounter Performed By: #### C BC, POOJA, LIPASE #### [facility] [address] [place] [address] [place] Platelet mean volume (Bld) [Entitic vol] 11.1 fL High 6.6-10.1 [facility] Comment on above: Order Comment: Reaso n for Exam Medication monitoring encounter Performed By: #### C BC, POOJA, LIPASE #### [facility] [address] [place] [address] [place] WBC (Bld) [#/Vol] 9.2 10*3/uL Normal 4.1-10.5 [facility] Comment on above: Order Comment: Reaso n for Exam Medication monitoring encounter Performed By: #### C BC, POOJA, LIPASE #### [facility] [address] Basophils (Bld) [#/Vol] 0.603766322 10*3/uL Normal 0.0-0.2 10*3/uL [employer] Other Basophils/100 WBC (Bld) 0.500 % . % N [facility] [employer] Other Eosinophils (Bld) [#/Vol] 0.175812976 10*3/uL High 0.0-0.45 10*3/uL [employer] Other Eosinophils/100 WBC (Bld) 6.100 % . % [employer] Other Erythrocyte distribution width (RBC) [Ratio] 13.600 % Normal 12.0-14.8 % [employer] Other Hematocrit (Bld) [Volume fraction] 47.400 % Normal 38.8-50.0 % [employer] Other Hemoglobin (Bld) [Mass/Vol] 15.654123 g/dL Normal 13.0-17.0 g/dL [employer] Other Lymphocytes (Bld) [#/Vol] 4.018865583 10*3/uL Normal 1.00-4.8 10*3/uL [employer] Other Lymphocytes/100 WBC (Bld) 46.500 % . % [employer] Other MCH (RBC) [Entitic mass] 30.2000 pg Normal 27.5-35.2 pg [employer] Other MCV (RBC) [Entitic vol] 92.3000 fL Normal 83.5-101 fL [employer] Other Monocytes (Bld) [#/Vol] 0.636515526 10*3/uL Normal 0.0-0.8 10*3/uL [employer] Other Monocytes/100 WBC (Bld) 8.300 % . % N [facility] [employer] Other Neutrophils (Bld) [#/Vol] 3.214311494 10*3/uL Normal 1.8-7.7 10*3/uL [employer] Other Neutrophils/100 WBC (Bld) 38.600 % . % [employer] Other Platelet mean volume (Bld) [Entitic vol] 11.1000 fL High 6.6-10.1 fL [employer] Other WBC (Bld) [#/Vol] 9.237168856 10*3/uL Normal 4.1 -10.5 10*3/uL [facility] Other Complete Blood Count Auto Diff 9.2 10*3/uL Normal 4.1-10.5 10*3/uL [facility] Other Complete Blood Count Auto Diff 32.7 g/dL Normal 32.5-35.6 g/dL [facility] Other Complete Blood Count Auto Diff 0.0 /100{WBC} Normal 0-0.5 /100{WBC} [employer] Other Complete Blood Count Auto Di ffOrdered By: Maribeth Vuong on 07-15-2022 Platelets (Bld) [#/Vol] 236 10*3/uL Normal 150-450 [facility] Comment on above: Order Comment: Reaso n for Exam Medication monitoring encounter Performed By: #### C BC, POOJA, LIPASE #### [facility] [address] RBC (Bld) [#/Vol] 5.13 10*6/uL Normal 3.90-5.60 [facility] Comment on above: Order Comment: Reaso n for Exam Medication monitoring encounter Performed By: #### C BC, POOJA, LIPASE #### [facility] [address] [place] [id number] [facility] ER URINE PROFILEon 3 Bilirubin Ql (U) Negative Normal NEGATIVE [facility] Comment on above: Performed By: #### E RUR ####[facility] [address] [place], [place] [address]Dr. Keymera David Clarity (U) CLEAR Normal CLEAR [facility] Comment on above: Performed By: #### E RUR ####[facility] Lychphthsm[address] [place], [place] [address]Dr. Sydney David Color (U) LT. YELLOW Normal YELLOW [facility] Comment on above: Performed By: #### E RUR ####[facility] Swoyg[address]mdw[address] [place], [place] [address]Dr. Sydney David ERUAHD A micrscopic examination will be performed if indicated. Normal [facility] Comment on above: Performed By: #### E RUR ####[facility] Bgwornnjea[address] [place], [place] [address]Dr. Sydney David Glucose Ql (U) Negative Normal NEGATIVE [facility] Comment on above: Performed By: #### E RUR ####[facility] B[address] [place], [place] [address]Dr. Keymera David Hemoglobin Ql (U) Negative Normal NEGATIVE [facility] Comment on above: Performed By: #### E RUR ####[facility] Lzkgvluksp[address] [place], [place] [address]Dr. Sydney David Ketones Ql (U) Negative Normal NEGATIVE [facility] Comment on above: Performed By: #### E RUR ####[facility] Qnjqitdsmh[address] [place], [place] [address]Dr. Keymera David LEUKOCYTES Negative Normal NEGATIVE [facility] Comment on above: Performed By: #### E RUR ####[facility] Lciyjuanop[address] [place], [place] [address]Dr. Sydney David Nitrite Ql (U) Negative Normal NEGATIVE [facility] Comment on above: Performed By: #### E RUR ####[facility] Gtrhh[address]zwr[address] [place], [place] [address]Dr. Sydney David pH (U) 5.5 [pH] Normal 5-9 [facility] Comment on above: Performed By: #### E RUR ####[facility] Te[address] [place] [address]Dr. Sydney David SPEC GRAVITY 1.010 Normal 1.005-<=1.[address] [place] [address] Comment on above: Performed By: #### E RUR ####[facility] [address] [place] [address]Dr. Sydney Frankie UA PROTEIN Negative Normal NEGATIVE/ TRACE [facility] Comment on above: Performed By: #### E RUR ####[facility] [address] [place] [address]Dr. Sydney David UR MICRO IND NOT INDICATED Normal [facility] Comment on above: Performed By: #### E RUR ####[facility] Ur[address]impfid[address] [place] [address]Dr. Sydney David Urobilinogen Qn (U) 0.2 {Johan'U}/dL Normal 0.2 - 1. 0 [facility] Comment on above: Performed By: #### E RUR ####[facility] [address]jb[address] [place] [address]Dr. Sydney David Eosinophils Auto (Bld) [#/Vo l]Ordered By: Maribeth Vuong on 07-15-2022 Eosinophils (Bld) [#/Vol] 0.6 10*3/uL 0.0-0.45 [facility] Eosinophils/100 WBC Auto (Bl d)Ordered By: Maribeth Vuong on 07-15-2022 Eosinophils/100 WBC (Bld) 6.1 % . [facility] Erythrocyte distribution wid th Auto (RBC) [Ratio]Ordered By: Maribeth Vuong on 07-15-2022 Erythrocyte distribution width (RBC) [Ratio] 13.6 % 12.0-14.8 [facility] Hematocrit Auto (Bld) [Volum e fraction]Ordered By: Maribeth Vuong on 07-15-2022 Hematocrit (Bld) [Volume fraction] 47.4 % 38.8-50.0 [facility] Hemoglobin [Mass/volume] in BloodOrdered By: Maribeth Vuong on 04-10-2023 Hemoglobin (Bld) [Mass/Vol] 15.5 g/dL 13.0-17.0 [facility] Leukocytes [#/volume] correc gris for nucleated erythrocytes in Blood by Automated counOrdered By: Maribeth Vuong on 07-15-2022 WBC corrected for nucl RBC Auto (Bld) [#/Vol] 9.2 10*3/uL 4.1-10.5 [facility] Lipaseon 07-15-2022 Lipase [Catalytic activity/Vol] 80.0 U/L Normal 11.0-82.0 [facility] Comment on above: Order Comment: Reaso n for Exam Generalized abdominal pain;Slow transit constipation;Medicat Reason for Exam Generalized abdominal pain;Medication monitoring encounter NOT FASTING. JKW Result Comment: PERF ORMED BY: [place] [address] PATHOLOGIST ZINC PLATE GRAINER ALEM GARCIA M.D. Performed By: #### C BC, POOJA, LIPASE #### [address] Lipase [Catalytic activity/Vol] 80.50534 U/L Normal 11.0-82.0 U/L [facility] Other Lipase [Enzymatic activity/v olume] in Serum or PlasmaOrdered By: Maribeth Vuong on 07-15-2022 Lipase [Catalytic activity/Vol] 80.0 U/L 11.0-82.0 [facility] Lymphocytes Auto (Bld) [#/Vo l]Ordered By: Maribeth Vuong on 07-15-2022 Lymphocytes (Bld) [#/Vol] 4.3 10*3/uL 1.00-4.8 [facility] Lymphocytes/100 WBC Auto (Bl d)Ordered By: Maribeth Vuong on 07-15-2022 Lymphocytes/100 WBC (Bld) 46.5 % . [facility] MCH Auto (RBC) [Entitic mass ]Ordered By: Maribeth Vuong on 07-15-2022 MCH (RBC) [Entitic mass] 30.2 pg 27.5-35.2 [facility] MCHC Auto (RBC) [Mass/Vol]Or dered By: Maribeth Vuong on 07-15-2022 MCHC (RBC) [Mass/Vol] 32.7 g/dL 32.5-35.6 [facility] MCV Auto (RBC) [Entitic vol] Ordered By: Maribeth Vuong on 07-15-2022 MCV (RBC) [Entitic vol] 92.3 fL 83.5-101 F [facility] Monocytes Auto (Bld) [#/Vol] Ordered By: Maribeth Vuong on 07-15-2022 Monocytes (Bld) [#/Vol] 0.8 10*3/uL 0.0-0.8 [facility] Monocytes/100 WBC Auto (Bld) Ordered By: Maribeth Vuong on 07-15-2022 Monocytes/100 WBC (Bld) 8.3 % . F [facility] Neutrophils Auto (Bld) [#/Vo l]Ordered By: Maribeth Vuong on 07-15-2022 Neutrophils (Bld) [#/Vol] 3.6 10*3/uL 1.8-7.7 [facility] Neutrophils/100 WBC Auto (Bl d)Ordered By: Maribeth Vuong on 07-15-2022 Neutrophils/100 WBC (Bld) 38.6 % . [facility] Nucleated erythrocytes [Pres ence] in Blood by Automated countOrdered By: Maribeth Vuong on 07-15-2022 Nucleated RBC Auto Ql (Bld) 0.0 /100{WBC} 0-0.5 [facility] PROF CHEM 8 (BAS METB)on Anion gap [Moles/Vol] 13.3 mmol/L Normal [facility] Comment on above: Performed By: #### B MP #### [facility] Laboratory [address] [place] [address] [address] Sydney David Calcium [Mass/Vol] 9.1 mg/dL Normal 8.5-10.1 [facility] Comment on above: Performed By: #### B MP #### [facility] [address] [place] [address] [address] Sydney David Chloride [Moles/Vol] 102 mmol/L Normal 98-107 [facility] Comment on above: Performed By: #### B MP #### [facility] [address] [address] [address] Sydney David CO2 [Moles/Vol] 27.2 mmol/L Normal 21.0-32.0 [facility] Comment on above: Performed By: #### B MP #### [facility] [address] [place] [address] [address] Sydney David Creatinine [Mass/Vol] 1.08 mg/dL Normal 0.70-1.30 [facility] Comment on above: Performed By: #### B MP #### [facility] [address] [place] [address] [address] Sydney David EGFR-AF SENEGALESE >60 Normal >=60 [facility] Comment on above: Performed By: #### B MP #### [facility] Laboratory [address] [place] [address] Dr. Sydney David EGFR-NON AF SENEGALESE >60 Normal >=60 [facility] Comment on above: Performed By: #### B MP #### [facility] [address] [place] [address] [address] Sydney David Glucose [Mass/Vol] 116 mg/dL Critically high 74-106 T [facility] Comment on above: Performed By: #### B MP #### [facility] Laboratory [address] [place] [address] Dr. Sydney David Potassium [Moles/Vol] 3.5 mmol/L Normal 3.5-5.1 [facility] Comment on above: Performed By: #### B MP #### [facility] [address] [place] [address] [address] Sydney David Sodium [Moles/Vol] 139 mmol/L Normal 136-145 [facility] Comment on above: Performed By: #### B MP #### [facility] [address] [address] [address] Sydney David Urea nitrogen [Mass/Vol] 12.0 mg/dL Normal 7.0-18.0 [facility] Comment on above: Performed By: #### B MP #### [facility] [address] [place] [address] [address] Sydney David Urea nitrogen/Creatinine [Mass ratio] 11.1 mg/mg Normal [facility] Comment on above: Performed By: #### B MP #### [facility] [address] [place] [address] [address] Sydney David Platelet mean volume Auto (B ld) [Entitic vol]Ordered By: Maribeth Vuong on 07-15-2022 Platelet mean volume (Bld) [Entitic vol] 11.1 fL 6.6-10.1 [facility] WBC Auto (Bld) [#/Vol]Ordere d By: Maribeth Vuong on 07-15-2022 WBC (Bld) [#/Vol] 9.2 10*3/uL 4.1-10.5 [facility] XR KUBon 07-15-2022 XR KUB [facility] [place] [address] XRay Report Signed Patient: Neal Parker MR#: [id number] : 1980 Acct:[id number] Age/Sex: 41 / M ADM Date: 07/15/22 Loc: [facility] Room: Type: [facility] Attending Dr: Maribeth Vuong DO Copies [...] Greer Jr., D.O.07/15/2022 4:05 PM Dictation Location: [place] [address] Transcribed By: [facility] 07/15/22 1602 Dictated By: Sonny Greer Jr, DO 07/15/22 1604 Signed By: 07/15/22 1605 Normal [facility] Alanine aminotransferase [En zymatic activity/volume] in Serum or PlasmaOrdered By: Maribeth Vuong on 07-12-2022 ALT [Catalytic activity/Vol] 68 U/L 7-52 [facility] Albumin [Mass/volume] in Ser um or Plasma by Bromocresol green (BCG) dye binding methoOrdered By: Maribeth Vuong on 07-12-2022 Albumin BCG dye [Mass/Vol] 4.7 g/dL 3.5-5.7 [facility] Alkaline phosphatase [Enzyma tic activity/volume] in Serum or PlasmaOrdered By: Maribeth Vuong on 07-12-2022 ALP [Catalytic activity/Vol] 33 U/L 34-104 [facility] Aspartate aminotransferase [ Enzymatic activity/volume] in Serum or PlasmaOrdered By: Maribeth Vuong on 07-12-2022 AST [Catalytic activity/Vol] 29 U/L 13-39 [facility] Bilirubin.total [Mass/volume ] in Serum or PlasmaOrdered By: Maribeth Vuong on 07-12-2022 Bilirubin [Mass/Vol] 0.6 mg/dL 0.3-1.0 [facility] Calcium [Mass/volume] in Ser um or PlasmaOrdered By: Maribeth Vuong on 07-12-2022 Calcium [Mass/Vol] 10.1 mg/dL 8.6-10.3 [facility] Carbon dioxide, total [Moles /volume] in Serum or PlasmaOrdered By: Maribeth Vuong on 07-12-2022 CO2 [Moles/Vol] 27.5 mmol/L 21.0-31.0 [place] Chloride [Moles/volume] in S flash or PlasmaOrdered By: Maribeth Vuong on 07-12-2022 Chloride [Moles/Vol] 106 mmol/L 98-107 [facility] Cholesterol [Mass/volume] in Serum or PlasmaOrdered By: Maribeth Vuong on 07-12-2022 Cholesterol [Mass/Vol] 296 mg/dL 140-200 [facility] Comment on above: Chol less than 200 m g/dl low riskChol 201-239 mg/dl borderline riskChol 240 mg/dl and greater high risk Cholesterol in LDL Calc [Mas s/Vol]Ordered By: Maribeth Vuong on 07-12-2022 Cholesterol in LDL [Mass/Vol] 206 mg/dL 0-100 [facility] Comment on above: LDL ATP III CLASSIFI CATIONLDL less than 100 mg/dL OptimalLDL 100-129 mg/dL Near or above optimalLDL 130-159 mg/dL Borderline highLDL 160-189 mg/dL HighLDL greater than 189 mg/dL Very high Cholesterol in VLDL Calc [Ma ss/Vol]Ordered By: Maribeth Vuong on 07-12-2022 Cholesterol in VLDL [Mass/Vol] 53 mg/dL [facility] Comprehensive Metabolic Pane jenni 07-12-2022 Albumin [Mass/Vol] 4.7 g/dL Normal 3.5-5.7 [facility] Comment on above: Order Comment: PT FA STED 12 HOURS Reason for Exam Well adult exam;Lipid disorder;Medication monitoring encount Reason for Exam Lipid disorder Performed By: #### L IPID, PSAS W RFX, CMP #### [facility] [address] Albumin/Globulin [Mass ratio] 1.8 {ratio} Normal [facility] Comment on above: Order Comment: PT FA STED 12 HOURS Reason for Exam Well adult exam;Lipid disorder;Medication monitoring encount Reason for Exam Lipid disorder Performed By: #### L IPID, PSAS W RFX, CMP #### [facility] [address] [place] [address] [place] ALP [Catalytic activity/Vol] 33 U/L Low 34-104 [facility] Comment on above: Order Comment: PT FA STED 12 HOURS Reason for Exam Well adult exam;Lipid disorder;Medication monitoring encount Reason for Exam Lipid disorder Performed By: #### L IPID, PSAS W RFX, CMP #### [facility] [address] [place] [address] [place] ALT [Catalytic activity/Vol] 68 U/L High 7-52 [facility] Comment on above: Order Comment: PT FA STED 12 HOURS Reason for Exam Well adult exam;Lipid disorder;Medication monitoring encount Reason for Exam Lipid disorder Performed By: #### L IPID, PSAS W RFX, CMP #### [facility] [address] [place] [address] [place] Anion gap [Moles/Vol] 11.8 mmol/L Normal 6.0-15.0 [facility] Comment on above: Order Comment: PT FA STED 12 HOURS Reason for Exam Well adult exam;Lipid disorder;Medication monitoring encount Reason for Exam Lipid disorder Performed By: #### L IPID, PSAS W RFX, CMP #### [facility] [address] AST [Catalytic activity/Vol] 29 U/L Normal 13-39 [facility] Comment on above: Order Comment: PT FA STED 12 HOURS Reason for Exam Well adult exam;Lipid disorder;Medication monitoring encount Reason for Exam Lipid disorder Performed By: #### L IPDANNIELLE, PSAS W RFX, CMP #### [facility] [address] Bilirubin [Mass/Vol] 0.6 mg/dL Normal 0.3-1.0 [facility] Comment on above: Order Comment: PT FA STED 12 HOURS Reason for Exam Well adult exam;Lipid disorder;Medication monitoring encount Reason for Exam Lipid disorder Performed By: #### L IPID, PSAS W RFX, CMP #### [facility] [address] [place] [address] [place] Calcium [Mass/Vol] 10.1 mg/dL Normal 8.6-10.3 [facility] Comment on above: Order Comment: PT FA STED 12 HOURS Reason for Exam Well adult exam;Lipid disorder;Medication monitoring encount Reason for Exam Lipid disorder Performed By: #### L IPID, PSAS W RFX, CMP #### [facility] [address] [place] [address] [place] Chloride [Moles/Vol] 106 mmol/L Normal 98-107 [facility] Comment on above: Order Comment: PT FA STED 12 HOURS Reason for Exam Well adult exam;Lipid disorder;Medication monitoring encount Reason for Exam Lipid disorder Performed By: #### L IPID, PSAS W RFX, CMP #### [facility] [address] [place] [address] [place] CO2 [Moles/Vol] 27.5 mmol/L Normal 21.0-31.0 [place] Comment on above: Order Comment: PT FA STED 12 HOURS Reason for Exam Well adult exam;Lipid disorder;Medication monitoring encount Reason for Exam Lipid disorder Performed By: #### L SOLOMON PSAS W RFX, CMP #### [facility] [address] Creatinine [Mass/Vol] 0.96 mg/dL Normal 0.70-1.30 [facility] Comment on above: Order Comment: PT FA STED 12 HOURS Reason for Exam Well adult exam;Lipid disorder;Medication monitoring encount Reason for Exam Lipid disorder Performed By: #### L IPDANNIELLE PSAS W RFX, CMP #### [facility] [address] [place] [address] GFR/1.73 sq M.predicted MDRD (S/P/Bld) [Vol rate/Area] mL/min/{1.73_m2} [facility] Comment on above: Order Comment: PT FA STED 12 HOURS Reason for Exam Well adult exam;Lipid disorder;Medication monitoring encount Reason for Exam Lipid disorder Performed By: #### L SOLOMON, PSAS W RFX, CMP #### [facility] [address] [place] [address] Globulin (S) [Mass/Vol] 2.6 g/dL Normal [facility] Comment on above: Order Comment: PT FA STED 12 HOURS Reason for Exam Well adult exam;Lipid disorder;Medication monitoring encount Reason for Exam Lipid disorder Performed By: #### L IPDANNIELLE PSAS W RFX, CMP #### [facility] [address] [place] [address] Glucose [Mass/Vol] 106 mg/dL High 70-100 [facility] Comment on above: Order Comment: PT FA STED 12 HOURS Reason for Exam Well adult exam;Lipid disorder;Medication monitoring encount Reason for Exam Lipid disorder Result Comment: [facility] Glucose Reference Range is dependent on time and content of last meal. Glucose of more than 200 mg/dL in a nonstressed, ambulatory subject supports the diagnosis of Diabetes Mellitus. ADA recommended reference range Performed By: #### L IPID, PSAS W RFX, CMP #### [facility] [address] [place] [address] Potassium [Moles/Vol] 4.3 mmol/L Normal 3.5-5.1 [facility] Comment on above: Order Comment: PT FA STED 12 HOURS Reason for Exam Well adult exam;Lipid disorder;Medication monitoring encount Reason for Exam Lipid disorder Performed By: #### L IPID, PSAS W RFX, CMP #### [facility] [address] [place] [address] Protein [Mass/Vol] 7.3 g/dL Normal 6.4-8.9 [facility] Comment on above: Order Comment: PT FA STED 12 HOURS Reason for Exam Well adult exam;Lipid disorder;Medication monitoring encount Reason for Exam Lipid disorder Performed By: #### L SOLOMON, PSAS W RFX, CMP #### [facility] [address] [place] [address] Sodium [Moles/Vol] 141 mmol/L Normal 136-145 [facility] Comment on above: Order Comment: PT FA STED 12 HOURS Reason for Exam Well adult exam;Lipid disorder;Medication monitoring encount Reason for Exam Lipid disorder Performed By: #### L IPID, PSAS W RFX, CMP #### [facility] [address] [place] [address] Urea nitrogen [Mass/Vol] 12 mg/dL Normal 7-25 [facility] Comment on above: Order Comment: PT FA STED 12 HOURS Reason for Exam Well adult exam;Lipid disorder;Medication monitoring encount Reason for Exam Lipid disorder Performed By: #### L IPID, PSAS W RFX, CMP #### [facility] [address] [place] [address] [place] Creatinine [Mass/volume] in Serum or PlasmaOrdered By: Maribeth Vuong on 07-12-2022 Creatinine [Mass/Vol] 0.96 mg/dL 0.70-1.30 [facility] Globulin Calc (S) [Mass/Vol] Ordered By: Maribeth Vuong on 07-12-2022 Globulin (S) [Mass/Vol] 2.6 g/dL [facility] Glucose [Mass/volume] in Ser um or PlasmaOrdered By: Maribeth Vuong on 07-12-2022 Glucose [Mass/Vol] 106 mg/dL 70-100 [facility] Comment on above: ADA recommended refe rence rangeRandom Glucose Reference Range is dependent on time and content of last meal. Glucose of more than 200 mg/dL in a nonstressed, ambulatory subject supports the diagnosis of Diabetes Mellitus. Lipid Panelon 07-12-2022 Cholesterol [Mass/Vol] 296 mg/dL High 140-200 [facility] Comment on above: Order Comment: PT FA STED 12 HOURS Reason for Exam Well adult exam;Lipid disorder;Medication monitoring encount Reason for Exam Lipid disorder Result Comment: Chol less than 200 mg/dl low risk Chol 201-239 mg/dl borderline risk Chol 240 mg/dl and greater high risk Performed By: #### L IPID, PSAS W RFX, CMP #### [facility] [address] Cholesterol in HDL [Mass/Vol] 37 mg/dL Normal 29-71 [facility] Comment on above: Order Comment: PT FA STED 12 HOURS Reason for Exam Well adult exam;Lipid disorder;Medication monitoring encount Reason for Exam Lipid disorder Result Comment: HDL CHOL ATP-III CLASSIFICATION Cardiovascular Risk HDL > or equal to 60 mg/dL LOW HDL < 40 mg/dL HIGH Performed By: #### L IPID, PSAS W RFX, CMP #### [facility] [address] [place] [address] [place] Cholesterol.total/Patit sterol in HDL [Mass ratio] 8.0 {ratio} Normal <5.0 [facility] Comment on above: Order Comment: PT FA STED 12 HOURS Reason for Exam Well adult exam;Lipid disorder;Medication monitoring encount Reason for Exam Lipid disorder Result Comment: PERF ORMED BY: [place] [address] PATHOLOGIST ZINC PLATE GRAINER ALEM GARCIA M.D. Performed By: #### L IPID, PSAS W RFX, CMP #### [facility] [address] [place] [address] [place] LDL Cholesterol,Calculated 206 mg/dL High 0-100 [facility] Comment on above: Order Comment: PT [...] L IPID, PSAS W RFX, CMP #### [facility] [address] Triglyceride w/Reflex 266 mg/dL High 0-149 [facility] Comment on above: Order Comment: [...] L IPID, PSAS W RFX, CMP #### [facility] [address] VLDL CHOLESTEROL 53 mg/dL Normal [place] Comment on above: Order Comment: PT FA STED 12 HOURS Reason for Exam Well adult exam;Lipid disorder;Medication monitoring encount Reason for Exam Lipid disorder Performed By: #### L IPID, PSAS W RFX, CMP #### [facility] [address] [place] [address] No Panel InformationOrdered By: Maribeth Vuong on 07-12-2022 Estimated GFR (CKD-EPI) > 60.0 mL/Min [facility] Creatinine Clearance (Chem N/A [facility] PSA Screen (Yearly) w/Reflex on 07-12-2022 PSA Screen (Yearly) w/Reflex 0.670 ng/mL Normal 0.000-4.000 [facility] Comment on above: Order Comment: Reaso n for Exam Well adult exam;Prostate cancer screening Is patient <50 yrs? Medicare does not pay <50.: Y What is the date of the last PSA Screen?: N/A Is Medicare the insurance?: N Did you verify eligibility (Dx Time) check TestViewGp: YES TO ALL Result Comment: PERF ORMED BY: [facility] [address] [place] [address] PATHOLOGIST [employer]INC PLATE GRAINER ALEM GARCIA M.D. Performed By: #### L IPID, PSAS W RFX, CMP #### [facility] [address] Potassium [Moles/volume] in Serum or PlasmaOrdered By: Maribeth Vuong on 07-12-2022 Potassium [Moles/Vol] 4.3 mmol/L 3.5-5.1 [facility] Prostate specific Ag [Mass/v olume] in Serum or PlasmaOrdered By: Maribeth Vuong on 07-12-2022 Prostate specific Ag [Mass/Vol] 0.670 ng/mL 0.000-4.000 [facility] Protein [Mass/volume] in Ser um or PlasmaOrdered By: Maribeth Vuong on 07-12-2022 Protein [Mass/Vol] 7.3 g/dL 6.4-8.9 [facility] Serum or plasma albumin/glob ulin mass ratioOrdered By: Maribeth Vuong on 07-12-2022 Albumin/Globulin [Mass ratio] 1.8 {ratio} [facility] Serum or plasma anion gap de terminationOrdered By: Maribeth Vuong on 07-12-2022 Anion gap [Moles/Vol] 11.8 mmol/L 6.0-15.0 [facility] Serum or plasma high density lipoprotein (HDL) cholesterol measurementOrdered By: Maribeth Vuong on 07-12-2022 Cholesterol in HDL [Mass/Vol] 37 mg/dL 29-71 [facility] Comment on above: HDL CHOL ATP-III CLA SSIFICATION Cardiovascular RiskHDL > or equal to 60 mg/dL LOWHDL < 40 mg/dL HIGH Serum or plasma total choles terol/high density lipoprotein (HDL) cholesterol mass ratOrdered By: Maribeth Vuong on 07-12-2022 Cholesterol.total/Patti sterol in HDL [Mass ratio] 8.0 {ratio} <5.0 [facility] Sodium [Moles/volume] in Ser um or PlasmaOrdered By: Maribeth Vuong on 07-12-2022 Sodium [Moles/Vol] 141 mmol/L 136-145 [facility] Triglyceride [Mass/volume] i n Serum or PlasmaOrdered By: Maribeth Vuong on 07-12-2022 Triglyceride [Mass/Vol] 266 mg/dL 0-149 [facility] Comment on above: TRIG ATP III CLASSIF ICATIONTRIG less than 150 mg/dL NormalTRIG 150-199 mg/dL Borderline highTRIG 200-500 mg/dL High TRIG greater than 500 mg/dL Very highStandard traceable to the Center for Disease Conrtrol and Prevention (CDC) test method. Urea nitrogen [Mass/volume] in Serum or PlasmaOrdered By: Maribeth Vuong on 07-12-2022 Urea nitrogen [Mass/Vol] 12 mg/dL 10-29 [facility] XR LSPINE 2_3 VIEWSon 2022 XR LSPINE [...] DAMARIS ESPINOSA Date: 2022-07-02 14:57 Normal [facility] MRI PELVIS WO CONon 06-28-19 MRI PELVIS [...] DAMARIS ESPINOSA Date: 2022-06-27 09:45 Normal [facility] MRI [place] WO CONon 06-27-19 23 MRI [facility] WO CON EXAMINATION: MRI [place]IEW WO CON HISTORY: Lumbar radiculitis , urinary [...] RENE LAUREN Date: 2022-06-26 15:24 Normal [facility] XR lumbar spine AP/LAT/FLX/E XTon 01-08-2021 XR lumbar spine AP/LAT/FLX/EXT [facility] Other XR lumbar spine AP/LAT/FLX/EXT [facility] Other XR lumbar spine AP/LAT/FLX/EXT [address] [place] [address] [facility] Other XR lumbar spine AP/LAT/FLX/[place] [address] [facility] Other XR lumbar spine AP/LAT/FLX/EXT XRay Report [facility] Other XR lumbar spine AP/LAT/FLX/EXT Signed [facility] Other XR lumbar spine AP/LAT/FLX/EXT Patient: Neal Parker MR#: [id number] [facility] Other XR lumbar spine AP/LAT/FLX/EXT 206 [facility] Other XR lumbar spine AP/LAT/FLX/EXT : 1980 Acct:[id number] [facility] Other XR lumbar spine AP/LAT/FLX/EXT Age/Sex: 40 / M ADM Date: 01/08/21 [facility] Other XR lumbar spine AP/LAT/FLX/EXT Loc: [facility] Room: Type: REG [facility] Other XR lumbar spine AP/LAT/FLX/EXT Attending Dr: Charles Solares MD [facility] Other XR lumbar spine AP/LAT/FLX/EXT Ordering Provider: Charles Solares MD [facility] Other XR lumbar spine AP/LAT/FLX/EXT Date of Service: 01/08/21 [facility] Other XR lumbar spine AP/LAT/FLX/EXT XR/XR lumbar spine AP/LAT/FLX/EXT: Other spondylosis with radiculopathy, [facility] Other XR lumbar spine AP/LAT/FLX/EXT lumbar region [facility] Other XR lumbar spine AP/LAT/FLX/EXT Copies to: Charles Solares MD [facility] Other XR lumbar spine AP/LAT/FLX/EXT Lumbar spine 01/08/2021. [facility] Other XR lumbar spine AP/LAT/FLX/EXT CLINICAL DATA: Low back pain. [facility] Other XR lumbar spine AP/LAT/FLX/EXT FINDINGS: 4 standing views of the lumbar spine were obtained including lateral views in the [facility] Other XR lumbar spine AP/LAT/FLX/EXT neutral, flexion, and extension positions. This examination is compared with a prior study 04/14/2019. [facility] Other XR lumbar spine AP/LAT/FLX/EXT There are stable postsurgical changes related to lumbosacral spinal fusion. There is also stable [facility] Other XR lumbar spine AP/LAT/FLX/EXT anterior malalignment of L5 on S1. Mild posterior malalignment of L2 on L3 is noted. Overall [facility] Other XR lumbar spine AP/LAT/FLX/EXT vertebral alignment does not significantly change with limited flexion or limited extension. Disc [facility] Other XR lumbar spine AP/LAT/FLX/EXT space narrowing is identified. Minimal degenerative changes are seen. [facility] Other XR lumbar spine AP/LAT/FLX/EXT XR/XR lumbar spine AP/LAT/FLX/EXT [facility] Other XR lumbar spine AP/LAT/FLX/EXT IMPRESSION: Stable postsurgical changes and mild vertebral malalignment at the lumbosacral junction. [facility] Other XR lumbar spine AP/LAT/FLX/EXT Mild posterior malalignment of L2 on L3. No instability with limited flexion or extension. Disc [facility] Other XR lumbar spine AP/LAT/FLX/EXT space narrowing and minimal degenerative changes. [facility] Other XR lumbar spine AP/LAT/FLX/EXT Impression dictated by: Jude Stock Jr., M.D.01/08/2021 2:59 PM [facility] Other XR lumbar spine AP/LAT/FLX/EXT Dictation Location: [place] [address] [facility] Other XR lumbar spine AP/LAT/FLX/EXT Transcribed By: JIL 01/08/21 [facility] Other XR lumbar spine AP/LAT/FLX/EXT Dictated By: Jude Stock Jr, MD 01/08/21 [facility] Other XR lumbar spine AP/LAT/FLX/EXT Signed By: [facility] Other XR lumbar spine AP/LAT/FLX/EXT 01/08/21 [facility] Other CNOVdary 06-09-2018 CNOV Office Visit (NSFRVW ) NEAL PARKER ([id number]) 1980 M Date Time Provider Department 06/09/18 [...] Robbie [facility] in [place]. 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 Author Type: [...] Robbie [facility] in [place]. 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 Hx of back problems and surgeries. Took two [place], flexeril, celebrex prior to coming. Needs another surgery for back. History of Present Illness 37-year-old white male presents emergency room with his and complaints of worsening lower back pain after bending over to light his heater in his shop. Patient has had prior back surgery by Dr. Sen in [place] March 14, 2015. Patient states he has [...] Anxious mood & affect. Integumentary: Warm, Dry, [place] Medical Decision Making X-rays did not demonstrate [...] WASSIL In 3 days 04/04/2018 [address] [place] [address] Business (1) Additional Instructions: Call tomorrow for [...] made to ensure accuracy, however, inadvertently computerized forging engineer mistakes may be present. Patient was treated and evaluated by the physician server service assistant. The attending physician was in the [...] subluxation or other acute abnormality Read By: May SERRANO, Abdelrahman Merchant 04/01/18 12:39:59 IMPRESSION: 1. POSTOPERATIVE CHANGES IN [...] acute fracture. Signed By: Andreas Cordova MD Normal [facility] Comment on above: Result Comment: Elec tronically Signed By: Abdelrahman Olvera PA-C\.br\Date and Time Signed: 04/01/18 12:55 EST\.br\Electronically Co-Signed By: Lashay Li DO\.br\Date and Time Co-Signed: 04/07/18 16:20 EST Coding Summary.on 04-02-2018 Coding Summary. CODING DATE: 04/02/2018 FINAL [facility] DSCH STATUS: Home (Routine DC) PAYOR: Commercial Insurance APC DESCRIPTION 5522 Level 2 Imaging without Contrast ADMIT DX: REASON FOR VISIT DX: M54.5 Low back pain FINAL DX: PRINCIPAL: M54.5 Low back pain SECONDARY: M53.3 Sacrococcygeal disorders, not elsewhere classified Z79.899 Other longterm (current) drug therapy PYMT PROC APC STAT DESCRIPTION DOCTOR NAME DATE NOTE: The code number assigned matches the documented diagnosis and / or procedure in the patient's chart. However, the narrative phrase printed from the coding software may appear abbreviated, or result in slightly different terminology. Coded By: Laila Mcghee Date Saved: 04/02/2018 11:01 am Normal [facility] ED Clinical Summaryon 2017 ED Clinical Summary [place] [id number] ED Clinical Summary Person Information Name: NEAL PARKER/[facility] Age: 37 Years : 1980 12:00 AM Sex: Male Language: Moroccan PCP: RENE MORRELL DO Marital Status: Visit [...] 04/01/2018 1:01 PM 04/01/2018 1:01 PM ADDRESS: [address] [place] [id number] [facility] DOC NOTES: MEDICAL INFORMATION: Prescriptions Given: Prescription [...] Follow up: With: Address: When: RENE MORRELL [address] [place] [address] [facility] (1) In 3 days 04/04/2018 Comments: [...] the lower extremities DIAGNOSIS: Lumbosacral pain Normal [facility] ED Patient Education Noteon 04-01-2018 [...] stressful on the back 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 Do not sit, drive, or mapping technician one place for more than 30 minutes [...] pillow under your knees. ? Only take dvwk-qot-owotynz or prescription medicines as directed by your caregiver. Sffu-kha-xwxhrjw medicines to reduce pain and inflammation are [...] Document Reviewed: 07/26/2014 ExitCare? Patient Information ?2015 [employer]. This information is not intended to replace [...] the first months of treatment. Only take fkzs-gfp-duzcfwi or prescription medicines for pain, discomfort, or [...] Document Reviewed: 07/17/2009 ExitCare? Patient Information ?2014 [employer], [employer]. This information is not intended to replace advice given to you by your health care provider. Make sure you discuss any questions you have with your health care provider. Normal [facility] ED Patient Summaryon 018 ED Patient Summary [place] [id number] Patient Discharge Instructions Person Information Name: NEAL PARKER Age: 37 Years Arrival Date: 04/01/2018 11:05 AM Discharge Diagnosis: Lumbosacral pain Primary Care Physician: RENE MORRELL DO Provider Information Primary Provider: Lashay Li DO [employer] Sprayer:May SERRANO, Abdelrahman Merchant The exam and treatment you received in the Emergency Department were for an urgent problem and are not intended as complete care. It is important that you follow up with a doctor, nurse practitioner, or physician?s server service assistant for ongoing care. If your symptoms [...] Follow-up Instructions: With: Address: When: RENE MORRELL [address] [place] [id number] Business (1) In 3 days 04/04/2018 Comments: [...] opioids can be used to help relieve oidnkpyc-ay-qmwrfc pain and are often prescribed following a [...] be struggling with addiction, tell your health care transport nurse and ask for guidance or call SAMHSA?S National Helpline at 8-867-707-GJPU. v Source: US Department of Health and Human Services/Center for Disease Control & Prevention [facility] Medications Given: Medication Dose Route [...] Comment: Pharmacy Information: Thank you for choosing [facility] Patient Education Materials: Radicular Pain Radicular pain [...] the first months of treatment. Only take sizf-ckl-wrrygrg or prescription medicines for pain, discomfort, or [...] Document Reviewed: 07/17/2009 ExitCare? Patient Information ?2015 [employer]. This information is not intended to replace [...] stressful on the back 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 Do not sit, drive, or mapping technician one place for more than 30 minutes [...] pillow under your knees. ? Only take lrkj-mtp-hgdrpvo or prescription medicines as directed by your caregiver. Ziia-wqs-txlqyqr medicines to reduce pain and inflammation are [...] Document Reviewed: 07/26/2014 ExitCare? Patient Information ?2015 [employer], [employer]. This information is not intended to replace advice given to you by your health care provider. Make sure you discuss any questions you have with your health care provider. ELENA Bolden RUSSELL , have received the following patient education materials/instruction s and have verbalized understanding: Patient Education Materials: Radicular Pain; Back Pain, Adult Follow-up Instructions: With: Address: When: RENE MORRELL [address] [place], [place] [id number] [facility] (1) In 3 days 04/04/2018 Comments: [...] Signature Date Clinician/Nurse Signature Date 04/01/18 13:01:03 [facility] Progress Note-Nurseon 2017 Protein mass conc [...] No further needs at this time. Normal [facility] XR Spine Lumbosacral Minimum 4 [...] MD Transcribed by: DARSHAN Technologist: DEAN Smalls [facility] Vital Signs Date Time Vital Sign Value Performing Clinician Facility 09-15-2023 10:19-0400 Body height 177.8 cm [facility] 09-15-2023 10:19-0400 Body mass index (BMI) [Ratio] 37.3 kg/m2 [facility] 09-15-2023 10:19-0400 Body weight 117.93 kg [facility] 09-15-2023 10:19-0400 Diastolic blood pressure 84 mm[Hg] [facility] 09-15-2023 10:19-0400 Heart rate 88 /min [facility] 09-15-2023 10:19-0400 SaO2% (BldA) [Mass fraction] 97 % [facility] 09-15-2023 10:19-0400 Systolic blood pressure 124 mm[Hg] [facility] 07-21-2023 07:59-0400 Body height 177.8 cm DO Maribeth Vuong Work Phone: [facility] 07-21-2023 07:59-0400 Body mass index (BMI) [Ratio] 40.1 kg/m2 DO Maribeth Vuong Work Phone: [facility] 07-21-2023 07:59-0400 Body weight 127 kg DO Maribeth Vuong Work Phone: [facility] 07-21-2023 07:59-0400 Diastolic blood pressure 86 mm[Hg] DO Maribeth Vuong Work Phone: [facility] 07-21-2023 07:59-0400 Heart rate 76 /min DO Maribeth Vuong Work Phone: [facility] 07-21-2023 07:59-0400 SaO2% (BldA) [Mass fraction] 98 % DO Maribeth Vuong Work Phone: [facility] 07-21-2023 07:59-0400 Systolic blood pressure 128 mm[Hg] DO Maribeth Vuong Work Phone: [facility] 01-17-2023 09:00-0400 Body height 177.8 cm Maribeth Woodymer Other [facility] Other 01-17-2023 09:00-0400 Body mass index (BMI) [Ratio] 39.17 kg/m2 Maribeth Woodymer Other [facility] Other 01-17-2023 09:00-0400 Body temperature 97.7 [degF] Maribeth Carolann Other [facility] Other 01-17-2023 09:00-0400 Body weight 123.83 kg Maribeth Vuong Other [facility] Other 01-17-2023 09:00-0400 Diastolic blood pressure 78 mm[Hg] Maribeth Carolann Other [facility] Other 01-17-2023 09:00-0400 SaO2% (BldA) [Mass fraction] 98 % Maribeth Carolann Other [facility] Other 01-17-2023 09:00-0400 Systolic blood pressure 112 mm[Hg] Maribeth Vuong Other [facility] Other 12-18-2022 09:45-0400 Body height 177.8 cm Maribeth Vuong Other [facility] Other 12-18-2022 09:45-0400 Body mass index (BMI) [Ratio] 37.73 kg/m2 Maribeth Vuong Other [facility] Other 12-18-2022 09:45-0400 Body weight 119.3 kg Maribeth Vuong Other [facility] Other 12-18-2022 09:45-0400 Diastolic blood pressure 86 mm[Hg] Maribeth Vuong Other [facility] Other 12-18-2022 09:45-0400 Respiratory rate 18 /min Maribeth Vuong Other [facility] Other 12-18-2022 09:45-0400 SaO2% (BldA) [Mass fraction] 95 % Maribeth Vuong Other [facility] Other 12-18-2022 09:45-0400 Systolic blood pressure 126 mm[Hg] Maribeth Vuong Other [facility] Other 12-12-2022 08:00-0400 Body height 177.8 cm Maribeth Vuong Other [facility] Other 12-12-2022 08:00-0400 Body mass index (BMI) [Ratio] 37.73 kg/m2 Maribeth Vuong Other [facility] Other 12-12-2022 08:00-0400 Body temperature 98.5 [degF] Maribeth Vuong Other [facility] Other 12-12-2022 08:00-0400 Body weight 119.3 kg Maribeth Vuong Other [facility] Other 12-12-2022 08:00-0400 Diastolic blood pressure 102 mm[Hg] Maribeth Vuong Other [facility] Other 12-12-2022 08:00-0400 SaO2% (BldA) [Mass fraction] 96 % Maribeth Vuong Other [facility] Other 12-12-2022 08:00-0400 Systolic blood pressure 150 mm[Hg] Maribeth Vuong Other [facility] Other 09-26-2022 10:22-0400 Diastolic blood pressure 108 mm[Hg] DO Maribeth Vuong Work Phone: [facility] 09-26-2022 10:22-0400 Heart rate 74 /min DO Maribeth Vuong Work Phone: [facility] 09-26-2022 10:22-0400 Respiratory rate 16 /min DO Maribeth Vuong Work Phone: [facility] 09-26-2022 10:22-0400 SaO2% (BldA) [Mass fraction] 98 % DO Maribeth Vuong Work Phone: [facility] 09-26-2022 10:22-0400 Systolic blood pressure 156 mm[Hg] DO Maribeth Vuong Work Phone: [facility] 09-26-2022 08:26-0400 Body height 175.26 cm DO Maribeth Vuong Work Phone: [facility] 09-26-2022 08:26-0400 Body temperature 98.5 [degF] DO Maribeth Vuong Work Phone: [facility] 09-26-2022 08:26-0400 Body weight 113.39 kg DO Maribeth Vuong Work Phone: [facility] 09-11-2022 09:45-0400 Body height 177.8 cm Maribeth Carolann Other [employer] [facility] [employer] Other 09-11-2022 09:45-0400 Body mass index (BMI) [Ratio] 35.37 kg/m2 Maribeth Vuong Other [facility] Other 09-11-2022 09:45-0400 Body weight 111.81 kg Maribeth Carolann Other [facility] Other 09-11-2022 09:45-0400 Diastolic blood pressure 88 mm[Hg] Maribeth Vuong Other [facility] Other 09-11-2022 09:45-0400 Respiratory rate 18 /min Maribeth Vuong Other [facility] Other 09-11-2022 09:45-0400 SaO2% (BldA) [Mass fraction] 98 % Maribeth Vuong Other [facility] Other 09-11-2022 09:45-0400 Systolic blood pressure 142 mm[Hg] Maribeth Vuong Other [facility] Other 07-24-2022 10:30-0400 Body height 177.8 cm Igor Orr Other [facility] Other 07-24-2022 10:30-0400 Body mass index (BMI) [Ratio] 35.58 kg/m2 Igor Castroovanner Other [facility] Other 07-24-2022 10:30-0400 Body weight 112.49 kg Igor Castroovanner Other [facility] Other 07-24-2022 10:30-0400 Diastolic blood pressure 132 mm[Hg] Igor Scovanner Other [facility] Other 07-24-2022 10:30-0400 Systolic blood pressure 187 mm[Hg] Igor Scovanner Other [facility] Other 07-15-2022 12:15-0400 Body height 177.8 cm Maribeth Vuong Other [facility] Other 07-15-2022 12:15-0400 Body mass index (BMI) [Ratio] 35.58 kg/m2 Maribeth Vuong Other [facility] Other 07-15-2022 12:15-0400 Body temperature 98.1 [degF] Maribeth Vuong Other [facility] Other 07-15-2022 12:15-0400 Body weight 112.49 kg Maribeth Vuong Other [facility] Other 07-15-2022 12:15-0400 Diastolic blood pressure 110 mm[Hg] Maribeth Vuong Other [facility] Other 07-15-2022 12:15-0400 SaO2% (BldA) [Mass fraction] 97 % Maribeth Vuong Other [facility] Other 07-15-2022 12:15-0400 Systolic blood pressure 156 mm[Hg] Maribeth Vuong Other [facility] Other 01-04-2022 12:15-0400 Body height 177.8 cm Maribeth Vuong Other [facility] Other 01-04-2022 12:15-0400 Body mass index (BMI) [Ratio] 34.39 kg/m2 Maribeth Vuong Other [facility] Other 01-04-2022 12:15-0400 Body weight 108.73 kg Maribeth Vuong Other [facility] Other 01-04-2022 12:15-0400 Diastolic blood pressure 86 mm[Hg] Maribeth Vuong Other [facility] Other 01-04-2022 12:15-0400 Respiratory rate 18 /min Maribeth Vuong Other [facility] Other 01-04-2022 12:15-0400 SaO2% (BldA) [Mass fraction] 98 % Maribeth Vuong Other [facility] Other 01-04-2022 12:15-0400 Systolic blood pressure 136 mm[Hg] Maribeth Vuong Other [facility] Other 06-22-2021 10:00-0400 Body height 177.8 cm Maribeth Vuong Other [facility] Other 06-22-2021 10:00-0400 Body mass index (BMI) [Ratio] 34.16 kg/m2 Maribeth Vuong Other [facility] Other 06-22-2021 10:00-0400 Body weight 108 kg Maribeth Carolann Other [facility] Other 06-22-2021 10:00-0400 Diastolic blood pressure 78 mm[Hg] Maribeth Vuong Other [facility] Other 06-22-2021 10:00-0400 Respiratory rate 18 /min Maribeth Vuong Other [facility] Other 06-22-2021 10:00-0400 SaO2% (BldA) [Mass fraction] 95 % Maribeth Vuong Other [facility] Other 06-22-2021 10:00-0400 Systolic blood pressure 118 mm[Hg] Maribeth Vuong Other [facility] Other 03-08-2021 12:15-0500 Body height 177.8 cm Charles Solares Other [facility] Other 03-08-2021 12:15-0500 Body mass index (BMI) [Ratio] 33.72 kg/m2 Charles Solares Other [facility] Other 03-08-2021 12:15-0500 Body weight 106.6 kg Charles Solares Other [facility] Other 02-12-2021 11:00-0500 Body height 177.8 cm Maribeth Vuong Other [facility] Other 02-12-2021 11:00-0500 Body mass index (BMI) [Ratio] 33.37 kg/m2 Maribeth Vuong Other [facility] Other 02-12-2021 11:00-0500 Body temperature 98.3 [degF] Maribeth Vuong Other [facility] Other 02-12-2021 11:00-0500 Body weight 105.51 kg Maribeth Vuong Other [facility] Other 02-12-2021 11:00-0500 Diastolic blood pressure 88 mm[Hg] Maribeth Vuong Other [facility] Other 02-12-2021 11:00-0500 Respiratory rate 18 /min Maribeth Vuong Other [facility] Other 02-12-2021 11:00-0500 SaO2% (BldA) [Mass fraction] 99 % Maribeth Vuong Other [facility] Other 02-12-2021 11:00-0500 Systolic blood pressure 134 mm[Hg] Maribeth Vuong Other [facility] Other 02-01-2021 11:45-0400 Body height 177.8 cm Maribeth Vuong Other [facility] Other 02-01-2021 11:45-0400 Body mass index (BMI) [Ratio] 35.48 kg/m2 Maribeth Vuong Other [facility] Other 02-01-2021 11:45-0400 Body temperature 98.2 [degF] Maribeth Vuong Other [facility] Other 02-01-2021 11:45-0400 Body weight 112.18 kg Maribeth Vuong Other [facility] Other 02-01-2021 11:45-0400 Diastolic blood pressure 86 mm[Hg] Maribeth Vuong Other [facility] Other 02-01-2021 11:45-0400 Respiratory rate 18 /min Maribeth Vuong Other [facility] Other 02-01-2021 11:45-0400 SaO2% (BldA) [Mass fraction] 97 % Maribeth Vuong Other [facility] Other 02-01-2021 11:45-0400 Systolic blood pressure 136 mm[Hg] Maribeth Vuong Other [facility] Other Encounters Encounter Date Encounter Type Care Provider Facility Start: 09-30-2023 End: 10-02-2023 Evaluation and management of inpatient Diaz Valdovinos MD Facility:[facility] Start: 09-25-2023 End: 09-25-2023 ambulatory Diaz Valdovinos MD Facility:[facility] Start: 09-15-2023 End: 09-15-2023 ambulatory [facility] Work Phone: Start: 09-15-2023 End: 09-15-2023 Patient encounter procedure [facility] [place] Work Phone: Start: 09-10-2023 End: 09-10-2023 ambulatory Diaz Valdovinos MD Facility:[facility] Start: 07-21-2023 End: 07-21-2023 ambulatory DO Maribeth Vuong Work Phone: [facility] Work Phone: Start: 07-21-2023 End: 07-21-2023 Patient encounter procedure DO Maribeth Vuong Work Phone: [facility] [place] Work Phone: Start: 06-03-2023 End: 06-03-2023 Patient encounter procedure DO [facility]ibeth Vuong [facility] [place] [facility] Work Phone: Start: 05-29-2023 Non-patient / Non-visit DO Maribeth Vuong Work Phone: [facility] [place] Work Phone: Start: 03-13-2023 End: 03-13-2023 ambulatory Maribeth Vuong Other [facility] [employer] Other Start: 03-13-2023 Telephone encounter Maribeth Mercer [facility] Start: 02-05-2023 End: 02-05-2023 ambulatory Maribeth Vuong Other [facility] [employer] Other Start: 02-05-2023 Telephone encounter Maribeth Mercer [facility] [place] Start: 01-17-2023 End: 01-17-2023 ambulatory Maribeth Vuong Other [employer] Other Start: 01-17-2023 Encounter for genera l adult medical examination without abnormal findings Maribeth Vuong [facility] [place] Start: 01-17-2023 Periodic preventive med est patient 40-64yrs Maribeth Carolann [facility] [place] Start: 12-18-2022 (Procedure) Short Maribeth Vuong [facility] [place] Start: 12-18-2022 End: 12-18-2022 ambulatory Maribeth Vuong Other [facility] Other Start: 12-12-2022 End: 12-12-2022 ambulatory Maribeth Vuong Other [facility] Other Start: 12-12-2022 Office outpatient visit 15 minutes Maribeth Vuong [facility] [place] Start: 12-05-2022 End: 12-05-2022 ambulatory Maribeth Carolann Other [facility] Other Start: 12-05-2022 Telephone encounter Maribeth Carolann [facility] [place] Start: 09-28-2022 End: 09-28-2022 ambulatory Nash Cardenas Other [employer] Other Start: 09-28-2022 Telephone encounter Nash Cardenas [facility] Start: 09-26-2022 End: 09-26-2022 ambulatory Nash Cardenas Facility:[facility] Start: 09-26-2022 End: 09-26-2022 Admission to same day surgery center DO Maribeth Vuong Work Phone: [facility] Work Phone: Start: 09-26-2022 End: 09-26-2022 ambulatory DO Maribeth Vuong Work Phone: [facility] Work Phone: Start: 09-11-2022 (Procedure) Short Maribeth Vuong [facility] [place] Start: 09-11-2022 End: 09-11-2022 ambulatory Maribeth Vuong Other [facility] Other Start: 09-10-2022 End: 09-10-2022 ambulatory Maribeth Vuong Other [facility] Other Start: 09-10-2022 Telephone encounter Maribeth Carolann [facility] [place] Start: 09-03-2022 End: 09-03-2022 ambulatory NARENDALBERTA GOMIJODEEY . Facility: Start: 08-20-2022 End: 08-20-2022 ambulatory Maribeth N Carolann Facility:[facility] Start: 08-20-2022 End: 08-20-2022 ambulatory DO Maribeth Vuong Work Phone: [facility] Work Phone: Start: 08-20-2022 End: 08-20-2022 Patient encounter procedure DO Maribeth Vuong Work Phone: [facility] [address] Start: 08-16-2022 End: 08-17-2022 ambulatory NARENDRANATH LAKSHMIPATHY . Facility:[facility] Start: 08-02-2022 End: 08-02-2022 ambulatory Maribeth Vuong Other [facility] Other Start: 08-02-2022 Telephone encounter Maribeth Mercer [facility] [place] Start: 07-30-2022 End: 07-30-2022 ambulatory NARENDRANATH LAKSHMIPATHY . Facility:[facility] Start: 07-24-2022 End: 07-24-2022 ambulatory Igor Orr Other [facility] Other Start: 07-24-2022 Office outpatient ne w 30 minutes Igor Orr [facility] Start: 07-23-2022 End: 07-24-2022 ambulatory NARENDRANATH LAKSHMIPATHY . Facility:[facility] Start: 07-16-2022 End: 07-16-2022 ambulatory Maribeth Vuong Other [facility] Other Start: 07-16-2022 Telephone encounter Maribeth Carolann [facility] [place] Start: 07-15-2022 Office outpatient visit 25 minutes Maribeth Vuong [facility] [place] Start: 07-15-2022 Telephone encounter Maribeth Carolann [facility] [place] Start: 07-15-2022 End: 07-15-2022 ambulatory DO Maribeth Vuong Work Phone: [facility] Other Start: 07-15-2022 End: 07-15-2022 Patient encounter procedure DO Maribeth Carolann Work Phone: [facility] Start: 07-12-2022 End: 07-12-2022 ambulatory Maribeth Vuong Facility:[facility] Start: 07-12-2022 Encounter for genera l adult medical examination without abnormal findings Maribeth Vuong [facility] Start: 07-12-2022 End: 07-12-2022 ambulatory DO Maribeth Vuong Work Phone: [facility] Work Phone: Start: 07-12-2022 End: 07-12-2022 Patient encounter procedure DO Maribeth Carolann Work Phone: [facility] [place] Work Phone: Start: 07-02-2022 End: 07-03-2022 ambulatory [...] 01-04-2022 End: 01-04-2022 ambulatory Maribeth Vuong Other [facility] [employer] Other Start: 01-04-2022 Encounter for genera l adult medical examination without abnormal findings Maribeth Vuong [facility] [place] Start: 01-04-2022 Periodic preventive med est patient 40-64yrs Maribeth Vuong [facility] [place] Start: 12-13-2021 End: 12-14-[address] JESSICA JOEL . Facility:[facility] Start: 10-31-2021 End: 11-01-[address] JESSICA JOEL . Facility:[facility] Start: 10-03-2021 End: 10-04-2021 ambulatory BRIT SCHUSTER . Facility:[facility] Start: 09-29-2021 End: 09-29-2021 ambulatory MARIBETH VUONG Facility:[facility] Start: 08-17-2021 End: 08-17-2021 ambulatory Charles Solares Other [facility] Other Start: 08-17-2021 Telephone encounter Charles Solares [facility] [place] Start: 08-07-2021 End: 08-07-2021 ambulatory Charles Solares Other [facility] Other Start: 08-07-2021 Telephone encounter Charles COCHRAN [facility] Start: 07-13-2021 End: 07-13-2021 ambulatory Maribeth Vuong Other [facility] Other Start: 07-13-2021 Telephone encounter Maribeth Vuong [facility] [place] Start: 07-09-2021 End: 07-09-2021 ambulatory Charles Solares Other [facility] Other Start: 07-09-2021 Office outpatient visit 25 minutes Charles Solares [facility] [place] Start: 06-22-2021 End: 06-22-2021 ambulatory Maribeth Vuong Other [facility] Other Start: 06-22-2021 Office outpatient visit 15 minutes Maribeth Vuong [facility] [place] Start: 06-06-2021 End: 06-06-2021 ambulatory Charles Solares Other [facility] Other Start: 06-06-2021 Office outpatient visit 25 minutes Charles Felter [facility] [place] Start: 05-29-2021 End: 05-29-2021 ambulatory Maribeth Vuong Other [facility] Other Start: 05-29-2021 Telephone encounter Maribeth Mercer [facility] [place] Start: 05-22-2021 End: 05-22-2021 ambulatory Maribeth Vuong Other [facility] Other Start: 05-22-2021 Telephone encounter Maribeth Mercer [facility] [place] Start: 05-21-2021 End: 05-21-2021 ambulatory Maribeth Vuong Other [facility] Other Start: 05-21-2021 Telephone encounter Maribeth Mercer [facility] [place] Start: 05-08-2021 End: 05-08-2021 ambulatory Charles Hernandezer Other [facility] Other Start: 05-08-2021 Office outpatient visit 25 minutes Charles Felter [facility] [place] Start: 04-12-2021 End: 04-12-2021 ambulatory Charles Felter Other [facility] Other Start: 04-12-2021 Office outpatient visit 25 minutes Charles Felter [facility] [place] Start: 03-08-2021 End: 03-08-2021 ambulatory Charles Felter Other [facility] Other Start: 03-08-2021 Office outpatient visit 25 minutes Charles Felter [facility] [place] Start: 02-28-2021 End: 02-28-2021 ambulatory Maribeth Vuong Other [facility] Other Start: 02-28-2021 Telephone encounter Maribeth Mercer [facility] [place] Start: 02-12-2021 End: 02-12-2021 ambulatory Maribeth Vuong Other [facility] Other Start: 02-12-2021 Office outpatient visit 15 minutes Maribeth Vuong [facility] [place] Start: 02-05-2021 Office outpatient visit 25 minutes Charles Solares [facility] [place] Start: 02-01-2021 Office outpatient visit 15 minutes Maribeth Vuong [facility] [place] Start: 01-08-2021 Office outpatient visit 25 minutes Charles Solares [facility] [place] Start: 06-09-2018 End: 06-10-2018 Patient encounter procedure PHI VILLAFUERTEANNES CAITLIN [facility] Start: 04-01-2018 End: 04-01-2018 Emergency department patient visit Lashay Li Facility:[facility] Procedures Date Procedure Procedure Detail Performing Clinician Start: 06-03-2023 Plain X-ray of left hand DO Maribeth Vuong Work Phone: Start: 09-26-2022 Colonoscopy DO Maribeth Vuong Work Phone: Start: 07-15-2022 Diagnostic radiograp hy of abdomen DO Maribeth Vuong Work Phone: Plan of Treatment Date Care Activity Detail Author Start: 09-26-2022 [facility] Patient Education Hemorrhoids (DC) [facility] Work Phone: Immunizations Immunization Date Immunization Notes Care Provider Fa boy 12-07-2020 COVID-19 Vaccine Corey - Documentation Purposes Only Charles Solares Other [facility] 03-25-2019 Depo-Medrol 80 mg Charles lewis Other [facility] Other 12-11-2017 Kenalog -40 mg Charles Solares Other [facility] Other Payers Date Payer Category Payer Unknown 2022 Self-pay [id number] 1979 Unknown [id number] 2.16.84 0.1.516821.3.579.2.727 1979 Unknown [id number] 2.16.84 0.1.805790.3.579.2.593 1979 Unknown [id number] 2.16.84 0.1.846393.3.579.2.593 1979 Unknown [id number] 2.16.84 0.1.623217.3.579.2.593 1979 Unknown [id number] 2.16.84 0.1.885082.3.579.2.593 1979 Unknown [id number] 2.16.84 0.1.323836.3.579.2.593 1979 Unknown [id number] 2.16.84 0.1.484617.3.579.2.593 1979 Unknown [id number] 2.16.84 0.1.041724.3.579.2.593 1979 Unknown [id number] 2.16.84 0.1.840845.3.579.2.593 1979 Unknown [id number] 2.16.84 0.1.881459.3.579.2.593 1979 Unknown [id number] 2.16.84 0.1.645735.3.579.2.593 1979 Unknown [id number] 2.16.84 0.1.925887.3.579.2.593 1979 Unknown [id number] 2.16.84 0.1.966767.3.579.2.593 1979 Unknown [id number] 2.16.84 0.1.737851.3.579.2.593 1979 Unknown [id number] 2.16.84 0.1.835744.3.579.2.593 1979 Unknown [id number] 2.16.84 0.1.440670.3.579.2.593 1979 Unknown [id number] 2.16.84 0.1.885430.3.579.2.593 1979 Unknown [id number] 2.16. 840.1.640734.3.579.2.196 1979 Unknown [id number] 2.16. 840.1.461231.3.579.2.196 1979 Unknown [id number] 2.16. 840.1.084838.3.579.2.196 1960 Medicaid [id number] 1960 Unknown [id number] 1959 Unknown [id number] [employer] Blue Shield [id number] 2.16.840.1.262135.19 Unknown [employer] [id number] Unknown [id number] 2.16.8 40.1.715194.3.579.2.531 Unknown [id number] 2.16.8 40.1.963113.3.579.2.531 Unknown [id number] 2.16.8 40.1.238551.3.579.2.531 Unknown [id number] 2.16.8 40.1.399740.3.579.2.531 Social History Date Type Detail Facility Unknown if ever smoked [facility] Other Sex Assigned At Sex Assigned At Bir th [facility] Other Start: 04-13-2019 Tobacco smoking status NHIS Smoker (finding) [facility] Start: 1980 Sex Assigned At Male F [facility] Start: 09-26-2022 Tobacco smoking status ORIS Current some day smoker [facility] Goals Date Patient Goal Desired Activity /State [...] radiographic and clinical evaluation. Electronically signed by Vishal PLEITEZ, Homar Mayers 10/02/23 05:07 EDT [facility] 09-30-2023 Note Operative Report DATE OF [...] [employer] SURGEON: Diaz Valdovinos MD SENIOR GENETIC COUNSELOR: MAGGIE Duran PA-C assisted throughout the procedure [...] dural tear, nerve root injury, nonunion, DVT/PE, [place], stroke, etc. All questions were answered. Informed [...] monitoring remained stable (more content not included)... [facility] 09-29-2023 Note Chief Complaint Back pain History of Present Illness The patient is a 42-year-old male with complaints of constant low back pain that radiates to shooting pain into his buttocks and perineal region, he did have pain radiating down the posterior legs but had a RFA in February, which helped with his shooting pain. He also has burning and mbah-uvz-oewsxch along the right lateral foot and toes. Patient reports symptoms initially began 9 years ago after fracturing his L5. He then had surgery in 2014 but states he has been diagnosed with [...] CT and MRI Lumbar Spine done at [place] Electronically signed by Qamar Recio PA-C 09/29/23 09:58 EDT Electronically signed by Diaz Valdovinos MD 09/30/2023 09:41 EDT [facility] 03-13-2023 Evaluation note Encounter Date Diagnosis Assessment Notes Mar, Primary osteoarthritis of both first carpometacarpal joints (ICD-10 - M18.0) [facility] Other 11-01-2023 Evaluation note* Encounter Date Diagnosis Assessment Notes Treatment Notes Treatment Clinical Notes Feb, Primary hypertension (ICD-10 - I10) [employer] Other 10-13-2023 Evaluation note* Encounter Date Diagnosis [...] Jan, Medication monitoring encounter (ICD-10 - Z51.81) [facility] Other 09-13-2023 Evaluation note* Encounter Date Diagnosis Assessment Notes Treatment Notes Treatment Clinical Notes Dec, Primary osteoarthrit is of first carpometacarpal joint of left hand (ICD-10 - M18.12) [facility] Other 09-07-2023 Evaluation note* Encounter Date Diagnosis [...] he has any issues with the medicine. [facility] Other [facility] Encounter Date Diagnosis Assessment Notes Treatment Notes Treatment Clinical Notes Sep, Primary osteoarthrit is of both first carpometacarpal joints (ICD-10 - M18.0) [facility] Other 04-19-2023 Evaluation note* Encounter Date Diagnosis [...] colonoscopy to rule out luminal etiologies made [facility] Other 04-18-2023 NoteCONSULTATION CONSULTATION DATE: 07/23/2022 TO: [...] our patients to inform us about any bawk-bio-uyglqgr medications or herbal remedies/nutritional supplements/alternative remedies. 2. [...] treatment options with their primary care provider.[id number] Evaluation note * Encounter Date Diagnosis Assessment Notes Treatment Notes Treatment Clinical Notes Jul, Generalized abdominal pain (ICD-10 - R10.84) [facility] Other 04-10-2023 Evaluation note* Encounter Date Diagnosis [...] Jul, Medication monitoring encounter (ICD-10 - Z51.81) [facility] Other 04-10-2023 Evaluation note* Encounter Date Diagnosis Assessment Notes Treatment Notes Treatment Clinical Notes Jul, Slow transit constipation (ICD-10 - K59.01) [facility] Other 03-28-2023 NoteCONSULTATION CONSULTATION DATE: 07/02/2022 TO: [...] as well as his lumbar spine films.[id number] Note CONSULTATION CONSULTATION DATE: 06/13/2022 HISTORY OF [...] relief. He has been seen both at [place] and [place] [facility] in the past, and received [...] under the care of Dr. Joshua in [place]. He is unwilling to try Lyrica due [...] Patient is in agreement to this plan.[id number] NoteCONSULTATION CONSULTATION DATE: 03/14/2022 HISTORY OF PRESENT [...] in three months' time, unless otherwise indicated.[facility] [id number] NoteCONSULTATION CONSULTATION DATE: 02/07/2022 HISTORY OF PRESENT [...] followed up in the office post procedure.[facility] [id number] Evaluation note* Encounter Date Diagnosis Assessment Notes [...] Dec, Prostate cancer screening (ICD-10 - Z12.5) [facility] Other 09-08-2022 NoteCONSULTATION CONSULTATION DATE: 12/13/2021 HISTORY [...] of care and all questions were answered.[id number] Note CONSULTATION PROCEDURE DATE: 10/31/2021 PREOPERATIVE DIAGNOSIS: [...] will be followed up in the office.[facility] [id number] Note CONSULTATION CONSULTATION DATE: 10/03/2021 This is [...] and will be seen in the clinic. [facility] Signed and Approved by: BRIT SCHUSTER . 10/11/2021 16:28:00[facility]04-04-2022 Evaluation note* Encounter Date Diagnosis Assessment Notes [...] in this. Patient notes prior issues with [facility] billing department and states he is [...] note writ ten by Km Cervantes MA, Management Trainee [employer]. Edited and approved by Dr. Charles Solares MD. [facility] Other 03-18-2022 Evaluation note* Encounter Date Diagnosis [...] and he is to continue with it. [facility] Other 03-02-2022 Evaluation note* Encounter Date Diagnosis [...] note writ ten by Km Cervantes CMA, Management Trainee Marketing. Edited and approved by Dr. Charles Solares MD. [facility] Other 02-15-2022 Evaluation note* Encounter Date Diagnosis Assessment Notes Treatment Notes Treatment Clinical Notes May, Cigarette nicotine dependence without complication (ICD-10 - F17.210) [facility] Other 02-14-2022 Evaluation note* Encounter Date Diagnosis Assessment Notes Treatment Notes Treatment Clinical Notes May, Other spondylosis with radiculopathy, lumbar region (ICD-10 - M47.26) [facility] Other 02-01-2022 Evaluation note* Encounter Date Diagnosis [...] was refilled today. Saliva sample performed through [facility] today, will await confirmatory results. Opiod contract updated at this time. May, Other chronic pain (ICD-10 - G89.29) May, Other Above note writ ten by Sonya Dawson LPN, Management Trainee [employer]. Edited and approved by Dr. Charles Solares MD. [facility] [employer] Other 01-06-2022 Evaluation note* Encounter Date Diagnosis [...] note writ ten by Km Cervantes CMA, Management Trainee [employer]. Edited and approved by Dr. Charles Solares MD. [facility] Other 12-02-2021 Evaluation note* Encounter Date Diagnosis [...] Above note written by Sonya Dawson LPN, Management Trainee [employer]. Edited and approved by Dr. Charles Solares MD. [facility] Other 11-08-2021 Evaluation note* Encounter Date Diagnosis [...] Patient voiced understanding agrees with this plan. [facility] Other 11-01-2021 Evaluation note* Encounter Date Diagnosis [...] note writ ten by Donita Henson CMA, Management Trainee Marketing. Edited and approved by Dr. Charles Solares MD. [facility] Other 10-28-2021 Evaluation note* Encounter Date Diagnosis [...] message to Dr. Solares passing this along. [facility] Other 10-04-2021 Evaluation note* Encounter Date Diagnosis [...] educated regarding the risks and benefits of joint terminal attack controller opioid use. He understands the associated risks with this medication and agrees that it provides reasonable benefit in regards to his pain control and level of function. Oxycodone Acetaminophen was refilled today. Jan, Other chronic pain (ICD-10 - G89.29) [facility] Other Evaluation noteNo InformationNort [employer] Other Evaluation noteNo assessment information available [facility] Work Phone: Evaluation note* Diagnosis Onset Date Resolution Status Osteoarthritis of carpometac arpal joint of left thumb acute Primary osteoarthritis, left hand acute BPH (benign prostatic hyperplasia) chronic Hemorrhoid chronic Other spondylosis with radiculopathy, lumbar region chronic Blood present in stool nonea ctive [facility] Work Phone: Evaluation note* Diagnosis Onset Date Resolution Status BPH (benign prostatic hyperplasia) chronic Hemorrhoid chronic Other spondylosis with radiculopathy, lumbar region chronic Blood present in stool nonea ctive Other spondylosis with radiculopathy, lumbar region chronic Preoperative clearance nonea [facility] Work Phone: History and physical note Author Nash Cardenas [facility] September 26, 2022 9:39am Note Date/Time September 26, 2022 9:39 am [facility] [address] [place] [address] Gastroenterology H&P Signed Patient: Neal Parker MR#: [id number] : 1980 Acct:[id number] Age/Sex: 41 / M Adm Date: 3 Loc: Room: Type: [facility] Attending Dr: Nash Cardenas MD Copies [...] <Electronically signed by Nash Cardenas MD> 09/26/22938 [facility] Work Phone: Hismyul general Narrative - Reported* Type Description Date Medical History Hx spinal fusion Medical History Lumbar radiculopathy Medical History Trigger point Surgical History L5 S1 fusion 2014 Surgical History Left lower leg surgery (multipl e fractures) Surgical History foreign body excision right mid dle finger Hospitalization History pneumonia as [facility] Other Hismgrt general Narrative - Reported* Type Description Date Medical History Hx spinal fusion Medical History Lumbar radiculopathy Medical History Trigger point Surgical History L5 S1 fusion 2014 Surgical History Left lower leg surgery (multipl e fractures) Surgical History foreign body excision right mid dle finger Surgical History lumbar facet nerve b lock injection - Dr. Saldivar in [place] 11/2022 Hospitalization History pneumonia as [facility] Other Hisrefp general Narrative - Reported* Type Description Date Medical History Hx spinal fusion Medical History Lumbar radiculopathy Medical History Trigger point Surgical History L5 S1 fusion 2014 Surgical History Left lower leg surgery (multipl e fractures) Surgical History foreign body excision right mid dle finger Surgical History lumbar facet nerve b lock injection - Dr. Saldivar in [place] 11/2022 Surgical History R side nerve ablation 01/2023 Hospitalization History pneumonia as [facility] Other Hospital Discharge instructions Additional Instructions DISCHARGE [...] years. -Follow up with PCP. -Office number [phone].[facility] Work Phone: Reoazm for visit NarrativePatient here at the request of Dr. Vuong for evaluation & treatment of abdominal pain, change in bowel habits, weight loss, rectal bleeding.[facility] Other Relnqu for visit NarrativeProcedure appt and DNR-A signNoboone hospital center [employer] Other Summary Purpose Family History No Family [...] Reason for Referral Reason Dr. Villanueva to [facility] surgical options, steroid injections not providing long lasting benefit Diagnosis 1 Primary osteoarthrit is of both first carpometacarpal joints (M18.0) Referral Organization [facility] Family Camdencristóbal luisa Tom Referring Provider First Name Maribeth Referring Provider Last Name Carolann Referring Provider Specialty Family Prac patito Referred Organization [facility] Referred Address [address] [place],[address] Referred Provider Specialty ORTHOPEDIC S URGEON Referral Priority Routine Reason * Waiting for appt CT and KUB normal, generalized pain of unclear etiology Diagnosis 1 Generalized abdomina l pain (R10.84) Referral Organization [facility] Family Camdencristóbal luisa Tom Referring Provider First Name Maribeth Referring Provider Last Name Carolann Referring Provider Specialty Family Prac patito Referred Organization [facility] Gastroenterolo gy Referred Provider Dwayne Salas Referred Address [address] ,[place], [place],[address] Referred Provider Specialty Gastroentero logy Referral Priority [...] continuous use of opioids (F11.90) Referral Organization [facility] Family Camdencristóbal luisa Tom Referring Provider First Name Maribeth Referring Provider Last Name Carolann Referring Provider Specialty Family Prac patito Referred Organization [facility] Referred Address [address],[place], [place],[address] Referred Provider Specialty Pain Medicin e Referral Priority Routine General Notes Rebeca Vivar 11:08:53 AM >referral received and faxed Clinical Notes P- [phone]- Chief Complaint and Reason for Visit Chief [...] section and content) DATE CREATED AUTHOR 05/25/2018 [facility] DATE CREATED AUTHOR AUTHOR'S ORGANIZ ATION 06/11/2018 [facility] DATE CREATED AUTHOR AUTHOR'S ORGANIZ ATION 09/15/[address] [facility] DATE CREATED AUTHOR AUTHOR'S ORGANIZ ATION 10/04/2022 [facility] DATE CREATED AUTHOR AUTHOR'S ORGANIZ ATION 10/31/2023 [facility] REASON FOR VISIT (unrecogniz ed section and content) 1 MOback pain getting worse, pain management not working4 WK RECHECKDISCUSS DISABILITY OPTIONSLab results1 MO1 MONTH RECHECKCHANTIX1 month Follow upscript requestpaperwork1 MONTH FOLLOW UPCHANTIX refill/discuss back concerns1 MONTHNo InformationNo InformationPROCEDURE NOTES1 year Follow up/ AWVAbdominal Pain/ incontinencenew medication.ReferralPain ManagementB/L thumb steroid inj./ sign DNR-AORDERS PER DR Casanovaated bpelevated BP at PM in [place], no sxinjection L thumb1 year Follow upLosartan/HCTZsteroid [...] Status Dates Maribeth Vuong , Primary Care Provider Active Start: June 03, [...] BE BASED ON THE PRIMARY CLINICAL RECORDS. [facility]. provides no warranty or guarantee of the accuracy or completeness of information in this document.
== END 2023-11-07 11:03 | disposition home or self-care (01) ==
LOC: EC 11:02
PROVIDERS: Visit Provider Orthopaedic Surgery Orthopaedic Surgery of the Spine
DX: M43.26 Fusion of spine, lumbar region (principal)
CPT/HCPCS: 72100

== ENCOUNTER 2023-12-18 11:37 | Outpatient (OUT) | payer OTHER, SELFPAY ==
--- OUTSIDE RECORDS SUMMARY | 2023-12-18 11:41 | XMS_ITS | CCD ---
Author Organization [facility] CliniSymd Care Team Providers Care Student Teacher Name Role Phone Lashay Li Admitting Unavailable Lashay Li Attending Unavailable RENE MORRELL Primary Care Unavailable PHI RENE Attending Unavaila Charles Cohen Unavailable Carolann, Maribeth Unavailable Carolann, Maribeth Unavailable Carolann, Maribeth Unavailable Carolann, DO Marbieth Williamsno Primary Care Provider [phone] Carolann, DO Maribeth Williamson Attending Provider [phone] Igor Orr Unavailable CAROLANN, MARIBETH Primary Care [...] Care Provider MD Nisha Villanueva Attending Provider [phone] [address] Keri PLEITEZ, Diaz Mercer Attending UnavailDiaz Mckinney MD Admitting Unavailmary Rodgers MD, Homar Mayers Consulting Unavail able Maribeth Vuong DO Primary [facility] Jessyvai Qamar Higgins Consulting Unavailable Diaz Valdovinos MD Attending Unavailabl e Maribeth Vuong DO [facility] Unavai labDiaz Casillas MD Attending Unavailabl Maribeth Guy DO [facility] Unavai lable Allergies Allergy Classification Reported Allergen(s) Allergy Type Date of Onset Reaction(s) Facility (18 sources) gabapentin; Translations: [gabapentin] Drug Allergy 3 dizziness, sleepy, Drowsy, Drowsy, dizziness, sleepy [facility] (1 source) gabapentin Drug Allergy [facility] Repository (12 sources) zonisamide; Translations: [zonisamide] Drug Allergy 3 diarrhea [facility] (1 source) gabapentin Drug Allergy 3 [facility] Repository (1 source) zonisamide Drug Allergy [address] [place] [address] Repository Medications Current Medications Medication Drug Class(es) [...] Jun, Active take 1 capsule by mo [facility] every twenty-four hours Cymbalta 60 MG [...] take 1 tablet by mouth once daily Losartan-Windom chlorothiazide Active 1 TAB PO Daily July [...] Once a day Active polyethylene glycol 3350 233207 mg / potassium chloride 2970 mg / sodium bicarbonate 6740 mg / sodium chloride 5860 mg / sodium sulfate 92620 mg powder for oral solution (6 sources) [...] 07-12-2022 Episodic Other aftercare (1 source) Other bed bug exterminator (current) drug therapy; Translations: [OTH INTERMEDIATE CURRENT DRUG THERAPY] Onset: 07-17-2022 Episodic Other [...] MDRD (S/P/Bld) [Vol rate/Area] mL/min/{1.73_m2} Normal >=60 [facility] Comment on above: Result Comment: [facility] have implemented the eGFR calculation approach [...] Age = years Performed By: #### C D:[id number] #### [address] [address] Basic Metabolic Profileon Anion gap [Moles/Vol] 5 mmol/L Normal 4-12 [facility] Comment on above: Performed By: #### C D:[id number] #### [address] [address] Calcium [Mass/Vol] 8.2 mg/dL Low 8.5-10.3 [facility] Comment on above: Performed By: #### C D:[id number] #### [address] [address] Chloride [Moles/Vol] 106 mmol/L Normal 98-110 [facility] Comment on above: Performed By: #### C D:[id number] #### [address] [address] CO2 [Moles/Vol] 27 mmol/L Normal 22-32 [facility] Comment on above: Performed By: #### C D:[id number] #### [address] [address] Creatinine [Mass/Vol] 0.75 mg/dL Normal 0.61-1.24 [facility] Comment on above: Performed By: #### C D:[id number] #### [address] [address] Glucose [Mass/Vol] 88 mg/dL Normal 70-99 [facility] Comment on above: Performed By: #### C D:[id number] #### [address] [address] Potassium [Moles/Vol] 3.9 mmol/L Normal 3.4-4.8 [facility] Comment on above: Performed By: #### C D:[id number] #### [address] [address] Sodium [Moles/Vol] 138 mmol/L Normal 133-142 [facility] Comment on above: Performed By: #### C D:[id number] #### [address] [address] Urea nitrogen [Mass/Vol] 13 mg/dL Normal 8-26 [facility] Comment on above: Performed By: #### C D:[id number] #### [address] [address] Urea nitrogen/Creatinine [Mass ratio] 17.3 mg/mg Normal 10.0-20.0 [facility] Comment on above: Performed By: #### C D:[id number] #### [address] [address] CBC w/ Diffon 10-02-2023 Erythrocyte distribution width (RBC) [Ratio] 14.4 % Normal 11.6-14.8 [facility] Comment on above: Performed By: #### E GFR #### [address] [address] Hematocrit (Bld) [Volume fraction] 37.0 % Low 41.0-53.0 [facility] Comment on above: Performed By: #### E GFR #### [address] [address] Hemoglobin (Bld) [Mass/Vol] 12.1 g/dL Low 13.5-17.5 [facility] Comment on above: Performed By: #### E GFR #### [address] [address] MCH (RBC) [Entitic mass] 30.2 pg Normal 27.0-35.0 [facility] Comment on above: Performed By: #### E GFR #### [address] [address] MCHC 32.6 % Normal 31.0-37.0 [facility] Comment on above: Performed By: #### E GFR #### [address] [address] MCV (RBC) [Entitic vol] 92.6 fL Normal 80.0-100.0 [facility] Comment on above: Performed By: #### E GFR #### [place] [id number] Platelet 174 x10*3/mcL Normal 150-450 [facility] Comment on above: Performed By: #### E GFR #### [address] [address] Platelet mean volume (Bld) [Entitic vol] 10.7 fL High 6.7-10.6 [facility] Comment on above: Performed By: #### E GFR #### [address] [address] RBC 4.00 x10*6/mcL Low 4.30-5.80 [facility] Comment on above: Performed By: #### E GFR #### [address] [address] WBC 11.9 x10*3/mcL High 4.5-11.0 [facility] Comment on above: Performed By: #### E GFR #### [address] [address] Diff Autoon 10-02-2023 Baso Absolute 0.0 x10*3/mcL Normal 0.0-0.2 [facility] Comment on above: Performed By: #### C D:[id number] #### [address] [address] Basophils/100 WBC (Bld) 0.2 % Normal 0.0-1.2 [facility] Comment on above: Performed By: #### C D:[id number] #### [address] [address] Eos Absolute 0.2 x10*3/mcL Normal 0.0-0.4 [facility] Comment on above: Performed By: #### C D:[id number] #### [address] [address] Eosinophils/100 WBC (Bld) 1.5 % Normal 0.0-6.1 [facility] Comment on above: Performed By: #### C D:[id number] #### [address] [address] Lymph Absolute 5.1 x10*3/mcL High 1.0-4.8 [facility] Comment on above: Performed By: #### C D:[id number] #### [address] [address] Lymphocytes/100 WBC (Bld) 42.9 % High 27.2-40.8 [facility] Comment on above: Performed By: #### C D:[id number] #### [address] [address] Harding Absolute 0.9 x10*3/mcL Normal 0.3-1.1 [facility] Comment on above: Performed By: #### C D:[id number] #### [address] [address] Monocytes/100 WBC (Bld) 7.1 % Normal 4.7-13.9 [facility] Comment on above: Performed By: #### C D:[id number] #### [address] [address] Neutro Absolute 5.7 x10*3/mcL Normal 1.8-7.7 [facility] Comment on above: Performed By: #### C D:[id number] #### [address] [address] Neutro Auto 48.3 % Normal 47.2-70.8 [facility] Comment on above: Performed By: #### C D:[id number] #### [address] [address] Inpatient Clinical Summaryon 10-02-2023 Inpatient Clinical Summary [address] [address] [place] [address] Clinical Summary Person Information Name: Neal Parker Age: 42 Years : 1980 Sex: Male PCP: Maribeth Vuong DO Marital Status: Phone: PCP: Race: White Ethnicity: Not or Language: Sierra Leonean Visit Id: Visit Reason: Speciality: Acuity: Enc Type: Inpatient Med Service: Surgery Arrival: 09/30/2023 08:56:12 Discharge: Dispo Type: Address: [address] [place] [id number] Diagnosis: Discharged To: Home Treatments: Devices/Equipment: Professional [...] range between ( 27.2 and 40.8 ) Harding Auto: 7.1 % -- Normal range between [...] range between ( 41.0 and 53.0 ) Harding Absolute: 0.9 x10 MCH: 30.2 pg -- [...] to r (more content not included)... Normal [facility] .eGFRon 10-01-2023 GFR/1.73 sq M.predicted MDRD (S/P/Bld) [Vol rate/Area] mL/min/{1.73_m2} Normal >=60 [facility] Comment on above: Order Comment: Order added by Discern rule Result Comment: [facility] Laboratories have implemented the eGFR calculation approach [...] years Performed By: #### E GFR #### [address] [address] Basic Metabolic Profileon Calcium [Mass/Vol] 8.4 mg/dL Low 8.5-10.3 [facility] Comment on above: Performed By: #### E GFR #### [address] [address] Anion gap [Moles/Vol] 6 mmol/L Normal 4-12 [facility] Comment on above: Performed By: #### E GFR #### [address] [address] Chloride [Moles/Vol] 107 mmol/L Normal 98-110 [facility] Comment on above: Performed By: #### E GFR #### [address] [address] CO2 [Moles/Vol] 26 mmol/L Normal 22-32 [facility] Comment on above: Performed By: #### E GFR #### [address] [address] Creatinine [Mass/Vol] 0.97 mg/dL Normal 0.61-1.24 [facility] Comment on above: Performed By: #### E GFR #### [address] [address] Glucose [Mass/Vol] 119 mg/dL High 70-99 [facility] Comment on above: Performed By: #### E GFR #### [address] [address] Potassium [Moles/Vol] 4.1 mmol/L Normal 3.4-4.8 [facility] Comment on above: Performed By: #### E GFR #### [address] [address] Sodium [Moles/Vol] 139 mmol/L Normal 133-142 [facility] Comment on above: Performed By: #### E GFR #### [address] [address] Urea nitrogen [Mass/Vol] 15 mg/dL Normal 8-26 [facility] Comment on above: Performed By: #### E GFR #### [address] [address] Urea nitrogen/Creatinine [Mass ratio] 15.5 mg/mg Normal 10.0-20.0 [facility] Comment on above: Performed By: #### E GFR #### [address] [address] CBC w/ Diffon 10-01-2023 Erythrocyte distribution width (RBC) [Ratio] 13.9 % Normal 11.6-14.8 [facility] Comment on above: Performed By: #### E GFR #### [address] [address] Hematocrit (Bld) [Volume fraction] 38.3 % Low 41.0-53.0 [facility] Comment on above: Performed By: #### E GFR #### [address] [address] Hemoglobin (Bld) [Mass/Vol] 12.5 g/dL Low 13.5-17.5 [facility] Comment on above: Performed By: #### E GFR #### [place] [id number] MCH (RBC) [Entitic mass] 30.2 pg Normal 27.0-35.0 [facility] Comment on above: Performed By: #### E GFR #### [place] [id number] MCHC 32.7 % Normal 31.0-37.0 [facility] Comment on above: Performed By: #### E GFR #### [place] [id number] MCV (RBC) [Entitic vol] 92.3 fL Normal 80.0-100.0 [facility] Comment on above: Performed By: #### E GFR #### [place] [id number] Platelet 175 x10*3/mcL Normal 150-450 [facility] Comment on above: Performed By: #### E GFR #### [place] [id number] Platelet mean volume (Bld) [Entitic vol] 11.3 fL High 6.7-10.6 [facility] Comment on above: Performed By: #### E GFR #### [place] [id number] RBC 4.15 x10*6/mcL Low 4.30-5.80 [facility] Comment on above: Performed By: #### E GFR #### [place] [id number] WBC 15.0 x10*3/mcL High 4.5-11.0 [facility] Comment on above: Performed By: #### E GFR #### [place] [id number] Diff Autoon 10-01-2023 Baso Absolute 0.0 x10*3/mcL Normal 0.0-0.2 [facility] Comment on above: Performed By: #### E GFR #### [address] [address] Basophils/100 WBC (Bld) 0.1 % Normal 0.0-1.2 [facility] Comment on above: Performed By: #### E GFR #### [address] [address] Eos Absolute 0.0 x10*3/mcL Normal 0.0-0.4 [facility] Comment on above: Performed By: #### E GFR #### [address] [address] Eosinophils/100 WBC (Bld) 0.0 % Normal 0.0-6.1 [facility] Comment on above: Performed By: #### E GFR #### [address] [address] Lymph Absolute 1.6 x10*3/mcL Normal 1.0-4.8 [facility] Comment on above: Performed By: #### E GFR #### [address] [address] Lymphocytes/100 WBC (Bld) 10.9 % Low 27.2-40.8 [facility] Comment on above: Performed By: #### E GFR #### [address] [address] Harding Absolute 0.9 x10*3/mcL Normal 0.3-1.1 [facility] Comment on above: Performed By: #### E GFR #### [address] [address] Monocytes/100 WBC (Bld) 6.2 % Normal 4.7-13.9 [facility] Comment on above: Performed By: #### E GFR #### [address] [address] Neutro Absolute 12.4 x10*3/mcL High 1.8-7.7 [facility] Comment on above: Performed By: #### E GFR #### [address] [address] Neutro Auto 82.8 % High 47.2-70.8 [facility] Comment on above: Performed By: #### E GFR #### [facility] [address] [facility] [place] [address] Orthopedic Progress Noteon 0 10-01-2023 Orthopedic Progress [...] Graf MD, Jr 10/01/23 11:46 EDT Normal [facility] Operative Reporton Operative Report Preoperative Diagnosis 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 Postoperative Diagnosis 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 Operation L5-S1 right HW removal, L5-S1 revision right decompression and revision fusion Surgeon(s) St Keri PLEITEZ, Diaz Mercer (Surgeon - Primary) Project Leader Qamar Recio PA-C (Glass Designer) Anesthesia General Trevor PLEITEZ, Zuleima Maier (Lining Cleaner) Kurt Nieves (Provider) Estimated Blood Loss 150 mL Urine Output 800.0 mL Findings loose screws Specimen(s) none Complications none Catheters, Drains, Tubes Device: Rodney Tray 16FR Latex Free [id number] Electronically signed by Qamar Recio PA-C 09/30/23 12:16 EDT Normal [facility] XR Spine Lumbosacral 1 View in [...] Electronically Signed in Other Vendor System) Normal [facility] XR Chest 2 Viewson XR Chest [...] Electronically Signed in Other Vendor System) Normal [facility] .eGFRon 09-10-2023 GFR/1.73 sq M.predicted MDRD (S/P/Bld) [Vol rate/Area] mL/min/{1.73_m2} Normal >=60 [facility] Comment on above: Result Comment: [facility] have implemented the eGFR calculation approach [...] years Performed By: #### E GFR #### [facility] [address] [place] [address] ABO/Rhon 09-10-2023 ABO/Rh SD 09/30/23 ABO/Rh: A POS Normal [facility] Comment on above: Performed By: #### A ABRIL #### [facility] (DEFAULT) [address] [place] [address] [facility] (UNKNOWN) [address] [place] [address] ABSC Autoon 09-10-2023 ABSC Auto Negative Normal [facility] Comment on above: Performed By: #### A SA #### [facility] (UNKNOWN) [address] [place] [address] Basic Metabolic Profileon Anion gap [Moles/Vol] 8 mmol/L Normal 4-12 [facility] Comment on above: Performed By: #### C D:[id number] #### [facility] [address] [place] [address] Calcium [Mass/Vol] 10.3 mg/dL Normal 8.5-10.3 [facility] Comment on above: Performed By: #### C D:[id number] #### [facility] [address] [place] [address] Chloride [Moles/Vol] 101 mmol/L Normal 98-110 [facility] Comment on above: Performed By: #### C D:[id number] #### [facility] [address] [place] [address] CO2 [Moles/Vol] 31 mmol/L Normal 22-32 [facility] Comment on above: Performed By: #### C D:[id number] #### [address] [address] Creatinine [Mass/Vol] 1.05 mg/dL Normal 0.61-1.24 [facility] Comment on above: Performed By: #### C D:[id number] #### [address] [address] Glucose [Mass/Vol] 94 mg/dL Normal 70-99 [facility] Comment on above: Performed By: #### C D:[id number] #### [address] [address] Potassium [Moles/Vol] 4.0 mmol/L Normal 3.4-4.8 [facility] Comment on above: Performed By: #### C D:[id number] #### [address] [address] Sodium [Moles/Vol] 140 mmol/L Normal 133-142 [facility] Comment on above: Performed By: #### C D:[id number] #### [address] [address] Urea nitrogen [Mass/Vol] 13 mg/dL Normal 8-26 [facility] Comment on above: Performed By: #### C D:[id number] #### [address] [address] Urea nitrogen/Creatinine [Mass ratio] 12.4 mg/mg Normal 10.0-20.0 [facility] Comment on above: Performed By: #### C D:[id number] #### [address] [address] CBCon 09-10-2023 Erythrocyte distribution width (RBC) [Ratio] 14.1 % Normal 11.6-14.8 [facility] Comment on above: Performed By: #### C D:[id number] #### [address] [address] Hematocrit (Bld) [Volume fraction] 46.6 % Normal 41.0-53.0 [facility] Comment on above: Performed By: #### C D:[id number] #### [address] [address] Hemoglobin (Bld) [Mass/Vol] 15.5 g/dL Normal 13.5-17.5 [facility] Comment on above: Performed By: #### C D:[id number] #### [address] [address] MCH (RBC) [Entitic mass] 30.9 pg Normal 27.0-35.0 [facility] Comment on above: Performed By: #### C D:[id number] #### [place] [address] MCHC 33.3 % Normal 31.0-37.0 [facility] Comment on above: Performed By: #### C D:[id number] #### [place] [address]40 MCV (RBC) [Entitic vol] 92.9 fL Normal 80.0-100.0 [facility] Comment on above: Performed By: #### C D:[id number] #### [place] [id number] Platelet 191 x10*3/mcL Normal 150-450 [facility] Comment on above: Performed By: #### C D:[id number] #### [address] [address] Platelet mean volume (Bld) [Entitic vol] 11.3 fL High 6.7-10.6 [facility] Comment on above: Performed By: #### C D:[id number] #### [address] [address] RBC 5.02 x10*6/mcL Normal 4.30-5.80 [facility] Comment on above: Performed By: #### C D:[id number] #### [address] [address] WBC 8.2 x10*3/mcL Normal 4.5-11.0 [facility] Comment on above: Performed By: #### C D:[id number] #### [address] [address] MRSA, PCRon 09-10-2023 LAB ONLY Result Called? No Normal [facility] Comment on above: Performed By: #### E GFR #### [place] [id number] Methicillin Resistant Staph aurus(MRSA) Not detected Normal Not Detected [facility] Comment on above: Result Comment: Mut ations or polymorphisms in primer or probe binding regions may affect detection of new or unknown MRSA variants resulting in a false negative. The Proposify Xpert MRSA Assay is a qualitative in [...] clinician. Performed By: #### E GFR #### [address] [address] PTon 09-10-2023 INR Coag (PPP) [Relative time] 0.9 {INR} Normal <=3.5 [facility] Comment on above: Result Comment: INR has no normal range. INR Therapeutic range is: 2.0-3.0 (AF, CVA, TIAs, DVT prophylaxis, acute DVT) 2.5-3.5 (Mech heart valves, recurrent thrombosis/emboli) Performed By: #### P TINR #### [place] [id number] PT Coag (PPP) [Time] 9.8 s Normal 9.2-12.0 [facility] Comment on above: Performed By: #### P TINR #### [facility] [address] [place] [address] PTTon 09-10-2023 aPTT Coag (Bld) [Time] 22.0 s Normal 19.5-28.2 [facility] Comment on above: Performed By: #### C D:[id number] #### [facility] [address] [place] [address] Amylaseon 07-15-2022 Amylase [Catalytic activity/Vol] 43 U/L Normal 29-103 [facility] Comment on above: Order Comment: Reaso n for Exam Generalized abdominal pain;Slow transit constipation;Medicat Reason for Exam Generalized abdominal pain;Medication monitoring encounter NOT FASTING. JKW Performed By: #### C BC, POOJA, LIPASE #### [facility] [address] Amylase 43 U/L Normal 29-103 U/L [employer] Other Amylase [Enzymatic activity/ volume] in Serum or PlasmaOrdered By: Maribeth Vuong on 07-15-2022 Amylase [Catalytic activity/Vol] 43 U/L 29-103 [facility] Basophils Auto (Bld) [#/Vol] Ordered By: Maribeth Vuong on 07-15-2022 Basophils (Bld) [#/Vol] 0.0 10*3/uL 0.0-0.2 [facility] Basophils/100 WBC Auto (Bld) Ordered By: Maribeth Vuong on 07-15-2022 Basophils/100 WBC (Bld) 0.5 % . F [facility] CBC W MANUAL DIFFon 07-16-19 23 ATYPICAL LYMPH # Normal [facility] Comment on above: Performed By: #### C JEAN ####[facility] [address] [place], [place] [address]SkIbrahima Keymera David ATYPICAL LYMPH % Normal [facility] Comment on above: Performed By: #### C JEAN ####[facility] [address] [place] [id number]. Yilan David BAND # 0.1 103/ul Normal 0.0-0.3 [facility] Comment on above: Performed By: #### C JEAN ####[facility] [address] [place] [address]Dr. Yilan David BAND % 1 % Normal 0-5 [facility] Comment on above: Performed By: #### C JEAN ####[facility] [address] [place] [address]Dr. Yimera David BASOM # 0.00 103/ul Normal 0.00-0.10 [facility] Comment on above: Performed By: #### C JEAN ####[facility] [address] [place], [place] [address]Dr. Sydney David BASOM % 0.0 % Critically low 0.2-2.0 [facility] Comment on above: Performed By: #### C JEAN ####[facility] [address] [place], [place] [address]Dr. Yilan David BLAST # Normal [facility] Comment on above: Performed By: #### C JEAN ####[facility] [address] [place], [place] [address]Dr. Yilan David BLAST % Normal [facility] Comment on above: Performed By: #### C JEAN ####[facility] [address] [place] [address]Dr. Sydney David CORRECTED WBC Normal 4.0-11.0 [facility] Comment on above: Performed By: #### C JEAN ####[facility] [address] [place] [address]Dr. Yimera David EOS # 0.24 103/ul Normal 0.00-0.70 [facility] Comment on above: Performed By: #### C JEAN ####[facility] [address] [place], [place] [address]Dr. Yimera David EOS% 3.0 % Normal 0.9-7.0 [facility] Comment on above: Performed By: #### C JEAN ####[facility] [address] [place], [place] [address]Tr. Sydney David HCT 46.4 % Normal 42.0-54.0 [facility] Comment on above: Performed By: #### C JEAN ####[facility] [address] [place], [place] [address]Dd. Sydney David HGB 15.4 g/dl Normal 14.0-18.0 [facility] Comment on above: Performed By: #### C JEAN ####[facility] [address] [place], [place] [address]Gu. Sydney David LYMPHM # 3.36 103/ul Normal 1.20-3.80 [facility] Comment on above: Performed By: #### C JEAN ####[facility] [address] [place] [address]Dr. Sydney David LYMPHM% 42.0 % Normal 20.5-60.0 [facility] Comment on above: Performed By: #### C JEAN ####[facility] [address] [place] [address]Dr. Sydney David MCH 30.3 pg Normal 25.9-34.0 [facility] Comment on above: Performed By: #### C JEAN ####[facility] [address] [place] [address]Dr. Sydney David MCHC 33.2 g/dl Normal 29.9-35.2 [facility] Comment on above: Performed By: #### C JEAN ####[facility] [address] [place], [place] [address]Lw. Sydney David MCV 91.3 fL Normal 80.0-94.0 [facility] Comment on above: Performed By: #### C JEAN ####[facility] [address] [place] [address]Dr. Sydney David METAMYELOCYTE # Normal [facility] Comment on above: Performed By: #### C JEAN ####[facility] [address] [place] [address]Dr. Yilan David METAMYELOCYTE % Normal [facility] Comment on above: Performed By: #### C BCMAN ####[facility] [address] [place], [place] [address]Gc. Sydney David MONOM# 0.80 103/ul Normal 0.30-0.80 [facility] Comment on above: Performed By: #### C BCMAN ####[facility] [address] [place], [place] [address]Sv. Sydney David MONOM% 10.0 % Normal 1.7-12.0 [facility] Comment on above: Performed By: #### C BCDOLORES ####[facility] [address] [place] [id number]. Sydney David MPV 11.8 fL Normal 9.5-13.5 [facility] Comment on above: Performed By: #### C JEAN ####[facility] [address] [place] [id number]. Sydney aDvid MYELOCYTE # Normal [facility] Comment on above: Performed By: #### C JEAN ####[facility] [address] [place], [place] [address]Ov. Sydney David MYELOCYTE % Normal [facility] Comment on above: Performed By: #### C BCDOLORES ####[facility] [address] [place], [place] [address]Ze. Sydney David NRBC Normal [facility] Comment on above: Performed By: #### C BCDOLORES ####[facility] [address] [place] [id number]. Sydney David PLT 249 103/ul Normal 150-450 [facility] Comment on above: Performed By: #### C BCDOLORES ####[facility] [address] [place] [id number]. Sydney David RBC 5.08 106/ul Normal 4.70-6.10 [facility] Comment on above: Performed By: #### C BCDOLORES ####[facility] R[address] [place] [id number]. Sydney David RDW 13.1 % Normal 11.0-15.0 [facility] Comment on above: Performed By: #### C JEAN ####[facility] Wv[address] [place], [place] [address]Ts. Sydney David SEG # 3.52 103/ul Normal 1.40-6.50 [facility] Comment on above: Performed By: #### C BCMAN ####[facility] [address]bi[address] [place], [place] [address]Pz. Sydney David SEG % 44.0 % Normal 43.0-75.0 [facility] Comment on above: Performed By: #### C BCDOLORES ####[facility] Xdigxx[address] [place], [place] [address]Wr. Sydney David WBC 8.0 103/ul Normal 4.0-11.0 [facility] Comment on above: Performed By: #### C BCDOLORES ####[facility] Dnyfpft[address]bs[address] [place], [place] [address]Vc. [address] ABD/PELV W CONon 07-16-19 [...] EVANGELIST SYLVESTERCONG Date: 2022-07-15 16:53 Normal [facility] Complete Blood Count Auto Di ffon 07-15-2022 Basophils (Bld) [#/Vol] 0.0 10*3/uL Normal 0.0-0.2 [facility] Comment on above: Order Comment: Reaso n for Exam Medication monitoring encounter Result Comment: PERF ORMED BY: [place] [address] PATHOLOGIST SUPERVISOR LAMP SHADES ALEM GARCIA M.D. Performed By: #### C BC, POOJA, LIPASE #### [address] Basophils/100 WBC (Bld) 0.5 % Normal . [facility] Comment on above: Order Comment: Reaso n for Exam Medication monitoring encounter Performed By: #### C BC, POOJA, LIPASE #### [address] Eosinophils (Bld) [#/Vol] 0.6 10*3/uL High 0.0-0.45 [facility] Comment on above: Order Comment: Reaso n for Exam Medication monitoring encounter Performed By: #### C BC, POOJA, LIPASE #### [address] Eosinophils/100 WBC (Bld) 6.1 % Normal . [facility] Comment on above: Order Comment: Reaso n for Exam Medication monitoring encounter Performed By: #### C BC, POOJA, LIPASE #### [address] Erythrocyte distribution width (RBC) [Ratio] 13.6 % Normal 12.0-14.8 [facility] Comment on above: Order Comment: Reaso n for Exam Medication monitoring encounter Performed By: #### C BC, POOJA, LIPASE #### [address] Hematocrit (Bld) [Volume fraction] 47.4 % Normal 38.8-50.0 [facility] Comment on above: Order Comment: Reaso n for Exam Medication monitoring encounter Performed By: #### C BC, POOAJ, LIPASE #### [address] Hemoglobin (Bld) [Mass/Vol] 15.5 g/dL Normal 13.0-17.0 [facility] Comment on above: Order Comment: Reaso n for Exam Medication monitoring encounter Performed By: #### C BC, POOJA, LIPASE #### [address] Lymphocytes (Bld) [#/Vol] 4.3 10*3/uL Normal 1.00-4.8 [facility] Comment on above: Order Comment: Reaso n for Exam Medication monitoring encounter Performed By: #### C BC, POOJA, LIPASE #### [address] Lymphocytes/100 WBC (Bld) 46.5 % Normal . [facility] Comment on above: Order Comment: Reaso n for Exam Medication monitoring encounter Performed By: #### C BC, POOJA, LIPASE #### [address] MCH (RBC) [Entitic mass] 30.2 pg Normal 27.5-35.2 [facility] Comment on above: Order Comment: Reaso n for Exam Medication monitoring encounter Performed By: #### C BC, POOJA, LIPASE #### [address] MCV (RBC) [Entitic vol] 92.3 fL Normal 83.5-101 [facility] Comment on above: Order Comment: Reaso n for Exam Medication monitoring encounter Performed By: #### C BC, POOJA, LIPASE #### [address] Mean Corpuscular HGB Conc 32.7 g/dL Normal 32.5-35.6 [facility] Comment on above: Order Comment: Reaso n for Exam Medication monitoring encounter Performed By: #### C BC, POOJA, LIPASE #### [address] Monocytes (Bld) [#/Vol] 0.8 10*3/uL Normal 0.0-0.8 [facility] Comment on above: Order Comment: Reaso n for Exam Medication monitoring encounter Performed By: #### C BC, POOJA, LIPASE #### [facility] [address] Monocytes/100 WBC (Bld) 8.3 % Normal . [facility] Comment on above: Order Comment: Reaso n for Exam Medication monitoring encounter Performed By: #### C BC, POOJA, LIPASE #### [facility] [address] Neutrophils (Bld) [#/Vol] 3.6 10*3/uL Normal 1.8-7.7 [facility] Comment on above: Order Comment: Reaso n for Exam Medication monitoring encounter Performed By: #### C BC, POOJA, LIPASE #### [address] Neutrophils/100 WBC (Bld) 38.6 % Normal . [facility] Comment on above: Order Comment: Reaso n for Exam Medication monitoring encounter Performed By: #### C BC, POOJA, LIPASE #### [facility] [address] [place] [address] NRBC% 0.0 /100{WBC} Normal 0-0.5 [facility] Comment on above: Order Comment: Reaso n for Exam Medication monitoring encounter Performed By: #### C BC, POOJA, LIPASE #### [facility] [address] [place] [address] [place] Platelet mean volume (Bld) [Entitic vol] 11.1 fL High 6.6-10.1 [facility] Comment on above: Order Comment: Reaso n for Exam Medication monitoring encounter Performed By: #### C BC, POOJA, LIPASE #### [facility] [address] [place] [address] [place] WBC (Bld) [#/Vol] 9.2 10*3/uL Normal 4.1-10.5 [facility] Comment on above: Order Comment: Reaso n for Exam Medication monitoring encounter Performed By: #### C BC, POOJA, LIPASE #### [facility] [address] Basophils (Bld) [#/Vol] 0.419405694 10*3/uL Normal 0.0-0.2 10*3/uL [employer] Other Basophils/100 WBC (Bld) 0.500 % . % N [facility] [employer] Other Eosinophils (Bld) [#/Vol] 0.186861558 10*3/uL High 0.0-0.45 10*3/uL [employer] Other Eosinophils/100 WBC (Bld) 6.100 % . % [employer] Other Erythrocyte distribution width (RBC) [Ratio] 13.600 % Normal 12.0-14.8 % [employer] Other Hematocrit (Bld) [Volume fraction] 47.400 % Normal 38.8-50.0 % [employer] Other Hemoglobin (Bld) [Mass/Vol] 15.748907 g/dL Normal 13.0-17.0 g/dL [employer] Other Lymphocytes (Bld) [#/Vol] 4.748038110 10*3/uL Normal 1.00-4.8 10*3/uL [employer] Other Lymphocytes/100 WBC (Bld) 46.500 % . % [employer] Other MCH (RBC) [Entitic mass] 30.2000 pg Normal 27.5-35.2 pg [employer] Other MCV (RBC) [Entitic vol] 92.3000 fL Normal 83.5-101 fL [employer] Other Monocytes (Bld) [#/Vol] 0.964904398 10*3/uL Normal 0.0-0.8 10*3/uL [employer] Other Monocytes/100 WBC (Bld) 8.300 % . % N [facility] [employer] Other Neutrophils (Bld) [#/Vol] 3.291718470 10*3/uL Normal 1.8-7.7 10*3/uL [employer] Other Neutrophils/100 WBC (Bld) 38.600 % . % [employer] Other Platelet mean volume (Bld) [Entitic vol] 11.1000 fL High 6.6-10.1 fL [employer] Other WBC (Bld) [#/Vol] 9.882532690 10*3/uL Normal 4.1 -10.5 10*3/uL [employer] Other Complete Blood Count Auto Diff 9.2 10*3/uL Normal 4.1-10.5 10*3/uL [employer] Other Complete Blood Count Auto Diff 32.7 g/dL Normal 32.5-35.6 g/dL [employer] Other Complete Blood Count Auto Diff 0.0 /100{WBC} Normal 0-0.5 /100{WBC} [employer] Other Complete Blood Count Auto Di ffOrdered By: Maribeth Vuong on 07-15-2022 Platelets (Bld) [#/Vol] 236 10*3/uL Normal 150-450 [facility] Comment on above: Order Comment: Reaso n for Exam Medication monitoring encounter Performed By: #### C BC, POOJA, LIPASE #### [facility] [address] RBC (Bld) [#/Vol] 5.13 10*6/uL Normal 3.90-5.60 [facility] Comment on above: Order Comment: Reaso n for Exam Medication monitoring encounter Performed By: #### C BC, POOJA, LIPASE #### [facility] [address] [place] [id number] [facility] ER URINE PROFILEon 3 Bilirubin Ql (U) Negative Normal NEGATIVE [facility] Comment on above: Performed By: #### E RUR ####[facility] [address] [place], [place] [address]Dr. Keymera David Clarity (U) CLEAR Normal CLEAR [facility] Comment on above: Performed By: #### E RUR ####[facility] I[address] [place], [place] [address]Dr. Sydney David Color (U) LT. YELLOW Normal YELLOW [facility] Comment on above: Performed By: #### E RUR ####[facility] [address] [place], [place] [address]Dr. Sydney David ERUAHD A micrscopic examination will be performed if indicated. Normal [facility] Comment on above: Performed By: #### E RUR ####[facility] Xeqto[address] [place], [place] [address]Dr. Sydney David Glucose Ql (U) Negative Normal NEGATIVE [facility] Comment on above: Performed By: #### E RUR ####[facility] [address] [place], [place] [address]Dr. Keymera David Hemoglobin Ql (U) Negative Normal NEGATIVE [facility] Comment on above: Performed By: #### E RUR ####[facility] [address] [place], [place] [address]Dr. Sydney David Ketones Ql (U) Negative Normal NEGATIVE [facility] Comment on above: Performed By: #### E RUR ####[facility] [address] [place], [place] [address]Dr. Keymera David LEUKOCYTES Negative Normal NEGATIVE [facility] Comment on above: Performed By: #### E RUR ####[facility] [address] [place], [place] [address]Dr. Sydney David Nitrite Ql (U) Negative Normal NEGATIVE [facility] Comment on above: Performed By: #### E RUR ####[facility] Ze[address] [place], [place] [address]Dr. Sydney David pH (U) 5.5 [pH] Normal 5-9 [facility] Comment on above: Performed By: #### E RUR ####[facility] [address] [place] [address]Dr. Sydney David SPEC GRAVITY 1.010 Normal 1.005-<=1.[address] [place] [address] Comment on above: Performed By: #### E RUR ####[facility] [address] [place] [address]Dr. Sydney Frankie UA PROTEIN Negative Normal NEGATIVE/ TRACE [facility] Comment on above: Performed By: #### E RUR ####[facility] [address] [place] [address]Dr. Sydney David UR MICRO IND NOT INDICATED Normal [facility] Comment on above: Performed By: #### E RUR ####[facility] [address] [place] [address]Dr. ySdney David Urobilinogen Qn (U) 0.2 {Johan'U}/dL Normal 0.2 - 1. 0 [facility] Comment on above: Performed By: #### E RUR ####[facility] [address] [place] [address]Dr. Sydney David Eosinophils Auto (Bld) [#/Vo l]Ordered By: Maribeth Vuong on 07-15-2022 Eosinophils (Bld) [#/Vol] 0.6 10*3/uL 0.0-0.45 [facility] Eosinophils/100 WBC Auto (Bl d)Ordered By: Maribeth Vuong on 07-15-2022 Eosinophils/100 WBC (Bld) 6.1 % . [facility] Erythrocyte distribution wid th Auto (RBC) [Ratio]Ordered By: Maribeth Vuong on 07-15-2022 Erythrocyte distribution width (RBC) [Ratio] 13.6 % 12.0-14.8 [facility] Hematocrit Auto (Bld) [Volum e fraction]Ordered By: Maribeth Vuong on 07-15-2022 Hematocrit (Bld) [Volume fraction] 47.4 % 38.8-50.0 [facility] Hemoglobin [Mass/volume] in BloodOrdered By: Maribeth Vuong on 04-10-2023 Hemoglobin (Bld) [Mass/Vol] 15.5 g/dL 13.0-17.0 [facility] Leukocytes [#/volume] correc gris for nucleated erythrocytes in Blood by Automated counOrdered By: Maribeth Vuong on 07-15-2022 WBC corrected for nucl RBC Auto (Bld) [#/Vol] 9.2 10*3/uL 4.1-10.5 [facility] Lipaseon 07-15-2022 Lipase [Catalytic activity/Vol] 80.0 U/L Normal 11.0-82.0 [facility] Comment on above: Order Comment: Reaso n for Exam Generalized abdominal pain;Slow transit constipation;Medicat Reason for Exam Generalized abdominal pain;Medication monitoring encounter NOT FASTING. JKW Result Comment: PERF ORMED BY: [place] [address] PATHOLOGIST SUPERVISOR LAMP SHADES ALEM GARCIA M.D. Performed By: #### C BC, POOJA, LIPASE #### [address] Lipase [Catalytic activity/Vol] 80.40020 U/L Normal 11.0-82.0 U/L [employer] Other Lipase [Enzymatic activity/v olume] in Serum or PlasmaOrdered By: Maribeth Vuong on 07-15-2022 Lipase [Catalytic activity/Vol] 80.0 U/L 11.0-82.0 [facility] Lymphocytes Auto (Bld) [#/Vo l]Ordered By: Maribeth Vuong on 07-15-2022 Lymphocytes (Bld) [#/Vol] 4.3 10*3/uL 1.00-4.8 [facility] Lymphocytes/100 WBC Auto (Bl d)Ordered By: Maribeth Vuong on 07-15-2022 Lymphocytes/100 WBC (Bld) 46.5 % . [facility] MCH Auto (RBC) [Entitic mass ]Ordered By: Maribeth Vuong on 07-15-2022 MCH (RBC) [Entitic mass] 30.2 pg 27.5-35.2 [facility] MCHC Auto (RBC) [Mass/Vol]Or dered By: Maribeth Vuong on 07-15-2022 MCHC (RBC) [Mass/Vol] 32.7 g/dL 32.5-35.6 [facility] MCV Auto (RBC) [Entitic vol] Ordered By: Maribeth Vuong on 07-15-2022 MCV (RBC) [Entitic vol] 92.3 fL 83.5-101 F [facility] Monocytes Auto (Bld) [#/Vol] Ordered By: Maribeth Vuong on 07-15-2022 Monocytes (Bld) [#/Vol] 0.8 10*3/uL 0.0-0.8 [facility] Monocytes/100 WBC Auto (Bld) Ordered By: Maribeth Vuong on 07-15-2022 Monocytes/100 WBC (Bld) 8.3 % . [facility] Neutrophils Auto (Bld) [#/Vo l]Ordered By: Maribeth Vuong on 07-15-2022 Neutrophils (Bld) [#/Vol] 3.6 10*3/uL 1.8-7.7 [facility] Neutrophils/100 WBC Auto (Bl d)Ordered By: Maribeth Vuong on 07-15-2022 Neutrophils/100 WBC (Bld) 38.6 % . [facility] Nucleated erythrocytes [Pres ence] in Blood by Automated countOrdered By: Maribeth Vuong on 07-15-2022 Nucleated RBC Auto Ql (Bld) 0.0 /100{WBC} 0-0.5 [facility] PROF CHEM 8 (BAS METB)on Anion gap [Moles/Vol] 13.3 mmol/L Normal [facility] Comment on above: Performed By: #### B MP #### [facility] [address] [place] [address] [address] Sydney David Calcium [Mass/Vol] 9.1 mg/dL Normal 8.5-10.1 [facility] Comment on above: Performed By: #### B MP #### [facility] [address] [place] [address] [address] Sydney David Chloride [Moles/Vol] 102 mmol/L Normal 98-107 [facility] Comment on above: Performed By: #### B MP #### [facility] [address] [place] [address] [address] Sydney David CO2 [Moles/Vol] 27.2 mmol/L Normal 21.0-32.0 [facility] Comment on above: Performed By: #### B MP #### [facility] [address] [place] [address] [address] Sydney David Creatinine [Mass/Vol] 1.08 mg/dL Normal 0.70-1.30 [facility] Comment on above: Performed By: #### B MP #### [facility] [address] [place] [address] [address] Sydney David EGFR-AF ARMENIAN >60 Normal >=60 [facility] Comment on above: Performed By: #### B MP #### [facility] [address] [place] [address] Dr. Sydney David EGFR-NON AF ARMENIAN >60 Normal >=60 [facility] Comment on above: Performed By: #### B MP #### [facility] [address] [place] [address] [address] Sydney David Glucose [Mass/Vol] 116 mg/dL Critically high 74-106 T [facility] Comment on above: Performed By: #### B MP #### [facility] [address] [place] [address] Dr. Sydney David Potassium [Moles/Vol] 3.5 mmol/L Normal 3.5-5.1 [facility] Comment on above: Performed By: #### B MP #### [facility] [address] [place] [address] [address] Sydney David Sodium [Moles/Vol] 139 mmol/L Normal 136-145 [facility] Comment on above: Performed By: #### B MP #### [facility] [address] [place] [address] [address] Sydney David Urea nitrogen [Mass/Vol] 12.0 mg/dL Normal 7.0-18.0 [facility] Comment on above: Performed By: #### B MP #### [facility] [address] [place] [address] [address] Sydney David Urea nitrogen/Creatinine [Mass ratio] 11.1 mg/mg Normal [facility] Comment on above: Performed By: #### B MP #### [facility] [address] [place] [address] [address] Sydney David Platelet mean volume Auto (B ld) [Entitic vol]Ordered By: Maribeth Vuong on 07-15-2022 Platelet mean volume (Bld) [Entitic vol] 11.1 fL 6.6-10.1 [facility] WBC Auto (Bld) [#/Vol]Ordere d By: Maribeth Vuong on 07-15-2022 WBC (Bld) [#/Vol] 9.2 10*3/uL 4.1-10.5 [facility] XR KUBon 07-15-2022 XR KUB [facility] [place] [address] XRay Report Signed Patient: Neal Parker MR#: [id number] : 1980 Acct:[id number] Age/Sex: 41 / M ADM Date: 07/15/22 Loc: [facility] Room: Type: [facility] Attending Dr: Maribeth Vuong DO Copies to: [...] Greer Jr., D.O.07/15/2022 4:05 PM Dictation Location: [place] [address] Transcribed By: [facility] 07/15/22 1609 Dictated By: Sonny Greer Jr, DO 07/15/22 1604 Signed By: 07/15/22 1605 Normal [facility] Alanine aminotransferase [En zymatic activity/volume] in Serum or PlasmaOrdered By: Maribeth Vuong on 07-12-2022 ALT [Catalytic activity/Vol] 68 U/L 7-52 [facility] Albumin [Mass/volume] in Ser um or Plasma by Bromocresol green (BCG) dye binding methoOrdered By: Maribeth Vuong on 07-12-2022 Albumin BCG dye [Mass/Vol] 4.7 g/dL 3.5-5.7 [facility] Alkaline phosphatase [Enzyma tic activity/volume] in Serum or PlasmaOrdered By: Maribeth Vuong on 07-12-2022 ALP [Catalytic activity/Vol] 33 U/L 34-104 [facility] Aspartate aminotransferase [ Enzymatic activity/volume] in Serum or PlasmaOrdered By: Maribeth Vuong on 07-12-2022 AST [Catalytic activity/Vol] 29 U/L 13-39 [facility] Bilirubin.total [Mass/volume ] in Serum or PlasmaOrdered By: Maribeth Vuong on 07-12-2022 Bilirubin [Mass/Vol] 0.6 mg/dL 0.3-1.0 [facility] Calcium [Mass/volume] in Ser um or PlasmaOrdered By: Maribeth Vuong on 07-12-2022 Calcium [Mass/Vol] 10.1 mg/dL 8.6-10.3 [facility] Carbon dioxide, total [Moles /volume] in Serum or PlasmaOrdered By: Maribeth Vuong on 07-12-2022 CO2 [Moles/Vol] 27.5 mmol/L 21.0-31.0 [facility] Chloride [Moles/volume] in S flash or PlasmaOrdered By: Maribeth Vuong on 07-12-2022 Chloride [Moles/Vol] 106 mmol/L 98-107 [facility] Cholesterol [Mass/volume] in Serum or PlasmaOrdered By: Maribeth Vuong on 07-12-2022 Cholesterol [Mass/Vol] 296 mg/dL 140-200 [facility] Comment on above: Chol less than 200 m g/dl low riskChol 201-239 mg/dl borderline riskChol 240 mg/dl and greater high risk Cholesterol in LDL Calc [Mas s/Vol]Ordered By: Maribeth Vuong on 07-12-2022 Cholesterol in LDL [Mass/Vol] 206 mg/dL 0-100 [facility] Comment on above: LDL ATP III CLASSIFI CATIONLDL less than 100 mg/dL OptimalLDL 100-129 mg/dL Near or above optimalLDL 130-159 mg/dL Borderline highLDL 160-189 mg/dL HighLDL greater than 189 mg/dL Very high Cholesterol in VLDL Calc [Ma ss/Vol]Ordered By: Maribeth Vuong on 07-12-2022 Cholesterol in VLDL [Mass/Vol] 53 mg/dL [facility] Comprehensive Metabolic Pane jenni 07-12-2022 Albumin [Mass/Vol] 4.7 g/dL Normal 3.5-5.7 [facility] Comment on above: Order Comment: PT FA STED 12 HOURS Reason for Exam Well adult exam;Lipid disorder;Medication monitoring encount Reason for Exam Lipid disorder Performed By: #### L IPID, PSAS W RFX, CMP #### [facility] [address] Albumin/Globulin [Mass ratio] 1.8 {ratio} Normal [facility] Comment on above: Order Comment: PT FA STED 12 HOURS Reason for Exam Well adult exam;Lipid disorder;Medication monitoring encount Reason for Exam Lipid disorder Performed By: #### L IPID, PSAS W RFX, CMP #### [facility] [address] [place] [address] [place] ALP [Catalytic activity/Vol] 33 U/L Low 34-104 [facility] Comment on above: Order Comment: PT FA STED 12 HOURS Reason for Exam Well adult exam;Lipid disorder;Medication monitoring encount Reason for Exam Lipid disorder Performed By: #### L IPID, PSAS W RFX, CMP #### [facility] [address] [place] [address] [place] ALT [Catalytic activity/Vol] 68 U/L High 7-52 [facility] Comment on above: Order Comment: PT FA STED 12 HOURS Reason for Exam Well adult exam;Lipid disorder;Medication monitoring encount Reason for Exam Lipid disorder Performed By: #### L IPID, PSAS W RFX, CMP #### [facility] [address] [place] [address] [place] Anion gap [Moles/Vol] 11.8 mmol/L Normal 6.0-15.0 [facility] Comment on above: Order Comment: PT FA STED 12 HOURS Reason for Exam Well adult exam;Lipid disorder;Medication monitoring encount Reason for Exam Lipid disorder Performed By: #### L IPID, PSAS W RFX, CMP #### [facility] [address] AST [Catalytic activity/Vol] 29 U/L Normal 13-39 [facility] Comment on above: Order Comment: PT FA STED 12 HOURS Reason for Exam Well adult exam;Lipid disorder;Medication monitoring encount Reason for Exam Lipid disorder Performed By: #### L IPDANNIELLE, PSAS W RFX, CMP #### [facility] [address] Bilirubin [Mass/Vol] 0.6 mg/dL Normal 0.3-1.0 [facility] Comment on above: Order Comment: PT FA STED 12 HOURS Reason for Exam Well adult exam;Lipid disorder;Medication monitoring encount Reason for Exam Lipid disorder Performed By: #### L IPID, PSAS W RFX, CMP #### [facility] [address] [place] [address] [place] Calcium [Mass/Vol] 10.1 mg/dL Normal 8.6-10.3 [facility] Comment on above: Order Comment: PT FA STED 12 HOURS Reason for Exam Well adult exam;Lipid disorder;Medication monitoring encount Reason for Exam Lipid disorder Performed By: #### L IPID, PSAS W RFX, CMP #### [facility] [address] [place] [address] [place] Chloride [Moles/Vol] 106 mmol/L Normal 98-107 [facility] Comment on above: Order Comment: PT FA STED 12 HOURS Reason for Exam Well adult exam;Lipid disorder;Medication monitoring encount Reason for Exam Lipid disorder Performed By: #### L IPID, PSAS W RFX, CMP #### [facility] [address] [place] [address] [place] CO2 [Moles/Vol] 27.5 mmol/L Normal 21.0-31.0 [facility] Comment on above: Order Comment: PT FA STED 12 HOURS Reason for Exam Well adult exam;Lipid disorder;Medication monitoring encount Reason for Exam Lipid disorder Performed By: #### L SOLOMON PSAS W RFX, CMP #### [facility] [address] Creatinine [Mass/Vol] 0.96 mg/dL Normal 0.70-1.30 [facility] Comment on above: Order Comment: PT FA STED 12 HOURS Reason for Exam Well adult exam;Lipid disorder;Medication monitoring encount Reason for Exam Lipid disorder Performed By: #### L IPDANNIELLE PSAS W RFX, CMP #### [facility] [address] [place] [address] GFR/1.73 sq M.predicted MDRD (S/P/Bld) [Vol rate/Area] mL/min/{1.73_m2} [facility] Comment on above: Order Comment: PT FA STED 12 HOURS Reason for Exam Well adult exam;Lipid disorder;Medication monitoring encount Reason for Exam Lipid disorder Performed By: #### L SOLOMON, PSAS W RFX, CMP #### [facility] [address] [place] [address] Globulin (S) [Mass/Vol] 2.6 g/dL Normal [facility] Comment on above: Order Comment: PT FA STED 12 HOURS Reason for Exam Well adult exam;Lipid disorder;Medication monitoring encount Reason for Exam Lipid disorder Performed By: #### L IPDANNIELLE PSAS W RFX, CMP #### [facility] [address] [place] [address] Glucose [Mass/Vol] 106 mg/dL High 70-100 [facility] Comment on above: Order Comment: PT FA STED 12 HOURS Reason for Exam Well adult exam;Lipid disorder;Medication monitoring encount Reason for Exam Lipid disorder Result Comment: [facility] Glucose Reference Range is dependent on time and content of last meal. Glucose of more than 200 mg/dL in a nonstressed, ambulatory subject supports the diagnosis of Diabetes Mellitus. ADA recommended reference range Performed By: #### L IPID, PSAS W RFX, CMP #### [facility] [address] [place] [address] Potassium [Moles/Vol] 4.3 mmol/L Normal 3.5-5.1 [facility] Comment on above: Order Comment: PT FA STED 12 HOURS Reason for Exam Well adult exam;Lipid disorder;Medication monitoring encount Reason for Exam Lipid disorder Performed By: #### L IPID, PSAS W RFX, CMP #### [facility] [address] [place] [address] Protein [Mass/Vol] 7.3 g/dL Normal 6.4-8.9 [facility] Comment on above: Order Comment: PT FA STED 12 HOURS Reason for Exam Well adult exam;Lipid disorder;Medication monitoring encount Reason for Exam Lipid disorder Performed By: #### L SOLOMON, PSAS W RFX, CMP #### [facility] [address] [place] [address] Sodium [Moles/Vol] 141 mmol/L Normal 136-145 [facility] Comment on above: Order Comment: PT FA STED 12 HOURS Reason for Exam Well adult exam;Lipid disorder;Medication monitoring encount Reason for Exam Lipid disorder Performed By: #### L IPID, PSAS W RFX, CMP #### [facility] [address] [place] [address] Urea nitrogen [Mass/Vol] 12 mg/dL Normal 7-25 [facility] Comment on above: Order Comment: PT FA STED 12 HOURS Reason for Exam Well adult exam;Lipid disorder;Medication monitoring encount Reason for Exam Lipid disorder Performed By: #### L IPID, PSAS W RFX, CMP #### [facility] [address] [place] [address] [place] Creatinine [Mass/volume] in Serum or PlasmaOrdered By: Maribeth Vuong on 07-12-2022 Creatinine [Mass/Vol] 0.96 mg/dL 0.70-1.30 [facility] Globulin Calc (S) [Mass/Vol] Ordered By: Maribeth Vuong on 07-12-2022 Globulin (S) [Mass/Vol] 2.6 g/dL [facility] Glucose [Mass/volume] in Ser um or PlasmaOrdered By: Maribeth Vuong on 07-12-2022 Glucose [Mass/Vol] 106 mg/dL 70-100 [facility] Comment on above: ADA recommended refe rence rangeRandom Glucose Reference Range is dependent on time and content of last meal. Glucose of more than 200 mg/dL in a nonstressed, ambulatory subject supports the diagnosis of Diabetes Mellitus. Lipid Panelon 07-12-2022 Cholesterol [Mass/Vol] 296 mg/dL High 140-200 [facility] Comment on above: Order Comment: PT FA STED 12 HOURS Reason for Exam Well adult exam;Lipid disorder;Medication monitoring encount Reason for Exam Lipid disorder Result Comment: Chol less than 200 mg/dl low risk Chol 201-239 mg/dl borderline risk Chol 240 mg/dl and greater high risk Performed By: #### L IPID, PSAS W RFX, CMP #### [facility] [address] Cholesterol in HDL [Mass/Vol] 37 mg/dL Normal 29-71 [facility] Comment on above: Order Comment: PT FA STED 12 HOURS Reason for Exam Well adult exam;Lipid disorder;Medication monitoring encount Reason for Exam Lipid disorder Result Comment: HDL CHOL ATP-III CLASSIFICATION Cardiovascular Risk HDL > or equal to 60 mg/dL LOW HDL < 40 mg/dL HIGH Performed By: #### L IPID, PSAS W RFX, CMP #### [facility] [address] [place] [address] [place] Cholesterol.total/Patti sterol in HDL [Mass ratio] 8.0 {ratio} Normal <5.0 [facility] Comment on above: Order Comment: PT FA STED 12 HOURS Reason for Exam Well adult exam;Lipid disorder;Medication monitoring encount Reason for Exam Lipid disorder Result Comment: PERF ORMED BY: [place] [address] PATHOLOGIST SUPERVISOR LAMP SHADES ALEM GARCIA M.D. Performed By: #### L IPID, PSAS W RFX, CMP #### [facility] [address] [place] [address] [place] LDL Cholesterol,Calculated 206 mg/dL High 0-100 [facility] Comment on above: Order Comment: [...] IPID, PSAS W RFX, CMP #### [facility] [address] Triglyceride w/Reflex 266 mg/dL High 0-149 [facility] Comment on above: Order Comment: PT [...] IPID, PSAS W RFX, CMP #### [facility] [address] VLDL CHOLESTEROL 53 mg/dL Normal [facility] Comment on above: Order Comment: PT FA STED 12 HOURS Reason for Exam Well adult exam;Lipid disorder;Medication monitoring encount Reason for Exam Lipid disorder Performed By: #### L IPID, PSAS W RFX, CMP #### [facility] [address] [place] [address] No Panel InformationOrdered By: Maribeth Vuong on 07-12-2022 Estimated GFR (CKD-EPI) > 60.0 mL/Min [facility] Creatinine Clearance (Chem N/A [facility] PSA Screen (Yearly) w/Reflex on 07-12-2022 PSA Screen (Yearly) w/Reflex 0.670 ng/mL Normal 0.000-4.000 [facility] Comment on above: Order Comment: Reaso n for Exam Well adult exam;Prostate cancer screening Is patient <50 yrs? Medicare does not pay <50.: Y What is the date of the last PSA Screen?: N/A Is Medicare the insurance?: N Did you verify eligibility (Dx Time) check TestViewGp: YES TO ALL Result Comment: PERF ORMED BY: [facility] [address] [place] [address] PATHOLOGIST SUPERVISOR LAMP SHADES ALEM GARCIA M.D. Performed By: #### L IPID, PSAS W RFX, CMP #### [facility] [address] Potassium [Moles/volume] in Serum or PlasmaOrdered By: Maribeth Vuong on 07-12-2022 Potassium [Moles/Vol] 4.3 mmol/L 3.5-5.1 [facility] Prostate specific Ag [Mass/v olume] in Serum or PlasmaOrdered By: Maribeth Vuong on 07-12-2022 Prostate specific Ag [Mass/Vol] 0.670 ng/mL 0.000-4.000 [facility] Protein [Mass/volume] in Ser um or PlasmaOrdered By: Maribeth Vuong on 07-12-2022 Protein [Mass/Vol] 7.3 g/dL 6.4-8.9 [facility] Serum or plasma albumin/glob ulin mass ratioOrdered By: Maribeth Vuong on 07-12-2022 Albumin/Globulin [Mass ratio] 1.8 {ratio} [facility] Serum or plasma anion gap de terminationOrdered By: Maribeth Vuong on 07-12-2022 Anion gap [Moles/Vol] 11.8 mmol/L 6.0-15.0 [facility] Serum or plasma high density lipoprotein (HDL) cholesterol measurementOrdered By: Maribeth Vuong on 07-12-2022 Cholesterol in HDL [Mass/Vol] 37 mg/dL 29-71 [facility] Comment on above: HDL CHOL ATP-III CLA SSIFICATION Cardiovascular RiskHDL > or equal to 60 mg/dL LOWHDL < 40 mg/dL HIGH Serum or plasma total choles terol/high density lipoprotein (HDL) cholesterol mass ratOrdered By: Maribeth Vuong on 07-12-2022 Cholesterol.total/Patti sterol in HDL [Mass ratio] 8.0 {ratio} <5.0 [facility] Sodium [Moles/volume] in Ser um or PlasmaOrdered By: Maribeth Vuong on 07-12-2022 Sodium [Moles/Vol] 141 mmol/L 136-145 [facility] Triglyceride [Mass/volume] i n Serum or PlasmaOrdered By: Maribeth Vuong on 07-12-2022 Triglyceride [Mass/Vol] 266 mg/dL 0-149 [facility] Comment on above: TRIG ATP III CLASSIF ICATIONTRIG less than 150 mg/dL NormalTRIG 150-199 mg/dL Borderline highTRIG 200-500 mg/dL High TRIG greater than 500 mg/dL Very highStandard traceable to the Center for Disease Conrtrol and Prevention (CDC) test method. Urea nitrogen [Mass/volume] in Serum or PlasmaOrdered By: Maribeth Vuong on 07-12-2022 Urea nitrogen [Mass/Vol] 12 mg/dL 10-29 [facility] XR LSPINE 2_3 VIEWSon 2022 XR [...] by: DAMARIS ESPINOSA Date: 2022-07-02 14:57 Normal [facility] MRI PELVIS WO CONon 06-28-19 MRI PELVIS [...] ESPINOSA Date: 2022-06-27 09:45 Normal [facility] [place] CONon 06-27-19 23 MRI [facility] WO CON EXAMINATION: MRI [place] WO CON HISTORY: Lumbar radiculitis , urinary [...] LAUREN Date: 2022-06-26 15:24 Normal [facility] XR lumbar spine AP/LAT/FLX/E XTon 01-08-2021 XR lumbar spine AP/LAT/FLX/EXT [facility] [employer] Other XR lumbar spine AP/LAT/FLX/EXT [facility] [employer] Other XR lumbar spine AP/LAT/FLX/EXT [address] [place] [address] [employer] Other XR lumbar spine AP/LAT/FLX/[place] [address] [employer] Other XR lumbar spine AP/LAT/FLX/EXT XRay Report [employer] Other XR lumbar spine AP/LAT/FLX/EXT Signed [employer] Other XR lumbar spine AP/LAT/FLX/EXT Patient: Neal Parker MR#: [id number] [employer] Other XR lumbar spine AP/LAT/FLX/EXT 206 [employer] Other XR lumbar spine AP/LAT/FLX/EXT : 1980 Acct:[id number] [employer] Other XR lumbar spine AP/LAT/FLX/EXT Age/Sex: 40 / M ADM Date: 01/08/21 [employer] Other XR lumbar spine AP/LAT/FLX/EXT Loc: [facility] Room: Type: REG [facility] [employer] Other XR lumbar spine AP/LAT/FLX/EXT Attending Dr: Charles Solares MD [employer] Other XR lumbar spine AP/LAT/FLX/EXT Ordering Provider: Charles Solares MD [employer] Other XR lumbar spine AP/LAT/FLX/EXT Date of Service: 01/08/21 [employer] Other XR lumbar spine AP/LAT/FLX/EXT XR/XR lumbar spine AP/LAT/FLX/EXT: Other spondylosis with radiculopathy, [employer] Other XR lumbar spine AP/LAT/FLX/EXT lumbar region [employer] Other XR lumbar spine AP/LAT/FLX/EXT Copies to: Charles Solares MD [employer] Other XR lumbar spine AP/LAT/FLX/EXT Lumbar spine 01/08/2021. [employer] Other XR lumbar spine AP/LAT/FLX/EXT CLINICAL DATA: Low back pain. [employer] Other XR lumbar spine AP/LAT/FLX/EXT FINDINGS: 4 standing views of the lumbar spine were obtained including lateral views in the [employer] Other XR lumbar spine AP/LAT/FLX/EXT neutral, flexion, and extension positions. This examination is compared with a prior study 04/14/2019. [employer] Other XR lumbar spine AP/LAT/FLX/EXT There are stable postsurgical changes related to lumbosacral spinal fusion. There is also stable [employer] Other XR lumbar spine AP/LAT/FLX/EXT anterior malalignment of L5 on S1. Mild posterior malalignment of L2 on L3 is noted. Overall [employer] Other XR lumbar spine AP/LAT/FLX/EXT vertebral alignment does not significantly change with limited flexion or limited extension. Disc [employer] Other XR lumbar spine AP/LAT/FLX/EXT space narrowing is identified. Minimal degenerative changes are seen. [employer] Other XR lumbar spine AP/LAT/FLX/EXT XR/XR lumbar spine AP/LAT/FLX/EXT [employer] Other XR lumbar spine AP/LAT/FLX/EXT IMPRESSION: Stable postsurgical changes and mild vertebral malalignment at the lumbosacral junction. [employer] Other XR lumbar spine AP/LAT/FLX/EXT Mild posterior malalignment of L2 on L3. No instability with limited flexion or extension. Disc [employer] Other XR lumbar spine AP/LAT/FLX/EXT space narrowing and minimal degenerative changes. [employer] Other XR lumbar spine AP/LAT/FLX/EXT Impression dictated by: Jude Stock Jr., M.D.01/08/2021 2:59 PM [employer] Other XR lumbar spine AP/LAT/FLX/EXT Dictation Location: [place] [address] [employer] Other XR lumbar spine AP/LAT/FLX/EXT Transcribed By: JIL 01/08/21 [facility] [employer] Other XR lumbar spine AP/LAT/FLX/EXT Dictated By: Jude Stock Jr, MD 01/08/21 [facility] [employer] Other XR lumbar spine AP/LAT/FLX/EXT Signed By: [employer] Other XR lumbar spine AP/LAT/FLX/EXT 01/08/21 [facility] [employer] Other CNOVdary 06-09-2018 CNOV Office Visit (NSFRVW ) NEAL PARKER ([id number]) 1980 M Date Time Provider Department 06/09/18 [...] fx. Had surgery by Dr. Robbie [facility] in [place]. 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 Author Type: [...] fx. Had surgery by Dr. Robbie [facility] in [place]. 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 Hx of back problems and surgeries. Took two [place], flexeril, celebrex prior to coming. Needs another surgery for back. History of Present Illness 37-year-old white male presents emergency room with his and complaints of worsening lower back pain after bending over to light his heater in his shop. Patient has had prior back surgery by Dr. Sen in [place] March 14, 2015. Patient states he has [...] Anxious mood & affect. Integumentary: Warm, Dry, [place] Medical Decision Making X-rays did not demonstrate [...] In 3 days 04/04/2018 EST [address] [place] [address] Business (1) Additional Instructions: Call tomorrow for [...] made to ensure accuracy, however, inadvertently computerized extension edger mistakes may be present. Patient was treated and evaluated by the physician procurement assistant. The attending physician was in the [...] Signed By: Andreas Cordova MD Normal [facility] Comment on above: Result Comment: Elec tronically Signed By: Abdelrahman Olvera PA-C\.br\Date and Time Signed: 04/01/18 12:55 EST\.br\Electronically Co-Signed By: Lashay Li DO\.br\Date and Time Co-Signed: 04/07/18 16:20 EST Coding Summary.on 04-02-2018 Coding Summary. CODING DATE: 04/02/2018 FINAL [facility]CH STATUS: Home (Routine DC) PAYOR: Commercial Insurance APC DESCRIPTION 5522 Level 2 Imaging without Contrast ADMIT DX: REASON FOR VISIT DX: M54.5 Low back pain FINAL DX: PRINCIPAL: M54.5 Low back pain SECONDARY: M53.3 Sacrococcygeal disorders, not elsewhere classified Z79.899 Other bed bug exterminator (current) drug therapy PYMT PROC APC STAT DESCRIPTION DOCTOR NAME DATE NOTE: The code number assigned matches the documented diagnosis and / or procedure in the patient's chart. However, the narrative phrase printed from the coding software may appear abbreviated, or result in slightly different terminology. Coded By: Laila Mcghee Date Saved: 04/02/2018 11:01 am Normal [facility] ED Clinical Summaryon 2017 ED Clinical Summary [place] [id number] ED Clinical Summary Person Information Name: NEAL PARKER/[facility] Age: 37 Years : 1980 12:00 AM Sex: Male Language: Sierra Leonean PCP: RENE MORRELL DO Marital Status: Visit [...] 04/01/2018 1:01 PM 04/01/2018 1:01 PM ADDRESS: [address] [place] [id number] [facility] DOC NOTES: MEDICAL INFORMATION: Prescriptions Given: Prescription [...] Follow up: With: Address: When: RENE MORRELL [address] [place] [address] [facility] (1) In 3 days 04/04/2018 Comments: [...] the lower extremities DIAGNOSIS: Lumbosacral pain Normal [facility] ED Patient Education Noteon 04-01-2018 [...] stressful on the back to sit or lining printer one place. Do not sit, drive, or lining printer one place for more than 30 minutes [...] pillow under your knees. ? Only take jfhn-omv-mlnrqit or prescription medicines as directed by your caregiver. Kcog-tql-aphszgz medicines to reduce pain and inflammation are [...] Document Reviewed: 07/26/2014 ExitCare? Patient Information ?2015 [facility]. This information is not intended to replace [...] the first months of treatment. Only take wgxu-ija-txnnsle or prescription medicines for pain, discomfort, or [...] Document Reviewed: 07/17/2009 ExitCare? Patient Information ?2014 [place] [employer]. This information is not intended to replace advice given to you by your health care provider. Make sure you discuss any questions you have with your health care provider. Normal [facility] ED Patient Summaryon 018 ED Patient Summary [place] [id number] Patient Discharge Instructions Person Information Name: NEAL PARKER Age: 37 Years Arrival Date: 04/01/2018 11:05 AM Discharge Diagnosis: Lumbosacral pain Primary Care Physician: RENE MORRELL DO Provider Information Primary Provider: Lashay Li DO [employer] Videot[employer] Editor:May SERRANO, Abdelrahman Merchant The exam and treatment you received in the Emergency Department were for an urgent problem and are not intended as complete care. It is important that you follow up with a doctor, nurse practitioner, or physician?s procurement assistant for ongoing care. If your symptoms [...] Follow-up Instructions: With: Address: When: RENE MORRELL [address] [place] [id number] Business (1) In 3 days 04/04/2018 Comments: [...] opioids can be used to help relieve uvyhqkco-fq-zaohgy pain and are often prescribed following a [...] be struggling with addiction, tell your health primary care coordinator and ask for guidance or call SAMHSA?S National Helpline at 8-190-035-XNRQ. v Source: US Department of Health and Human Services/Center for Disease Control & Prevention [facility] Medications Given: Medication Dose Route [...] Comment: Pharmacy Information: Thank you for choosing [facility] Patient Education Materials: Radicular Pain Radicular pain [...] the first months of treatment. Only take vppn-zsh-sfyrcfv or prescription medicines for pain, discomfort, or [...] Document Reviewed: 07/17/2009 ExitCare? Patient Information ?2015 [facility]. This information is not intended to replace [...] stressful on the back to sit or lining printer one place. Do not sit, drive, or lining printer one place for more than 30 minutes [...] pillow under your knees. ? Only take skkj-svd-ysesklp or prescription medicines as directed by your caregiver. Mqet-lxd-vkucmcq medicines to reduce pain and inflammation are [...] Document Reviewed: 07/26/2014 ExitCare? Patient Information ?2015 [place] [employer]. This information is not intended to replace advice given to you by your health care provider. Make sure you discuss any questions you have with your health care provider. ELENA Bolden RUSSELL , have received the following patient education materials/instruction s and have verbalized understanding: Patient Education Materials: Radicular Pain; Back Pain, Adult Follow-up Instructions: With: Address: When: RENE MORRELL [address] [place], [place] [id number] [facility] (1) In 3 days 04/04/2018 Comments: [...] Signature Date Clinician/Nurse Signature Date 04/01/18 13:01:03 [facility] Progress Note-Nurseon 2017 Protein mass conc Patient: [...] No further needs at this time. Normal [facility] XR Spine Lumbosacral Minimum 4 [...] MD Transcribed by: DARSHAN Technologist: DEAN Smalls [facility] Vital Signs Date Time Vital Sign Value Performing Clinician Facility 09-15-2023 10:19-0400 Body height 177.8 cm [facility] 09-15-2023 10:19-0400 Body mass index (BMI) [Ratio] 37.3 kg/m2 [facility] 09-15-2023 10:19-0400 Body weight 117.93 kg [facility] 09-15-2023 10:19-0400 Diastolic blood pressure 84 mm[Hg] [facility] 09-15-2023 10:19-0400 Heart rate 88 /min [facility] 09-15-2023 10:19-0400 SaO2% (BldA) [Mass fraction] 97 % [facility] 09-15-2023 10:19-0400 Systolic blood pressure 124 mm[Hg] [facility] 07-21-2023 07:59-0400 Body height 177.8 cm DO Maribeth Vuong Work Phone: [facility] 07-21-2023 07:59-0400 Body mass index (BMI) [Ratio] 40.1 kg/m2 DO Maribeth Vuong Work Phone: [facility] 07-21-2023 07:59-0400 Body weight 127 kg DO Maribeth Vuong Work Phone: [facility] 07-21-2023 07:59-0400 Diastolic blood pressure 86 mm[Hg] DO Maribeth Vuong Work Phone: [facility] 07-21-2023 07:59-0400 Heart rate 76 /min DO Maribeth Vuong Work Phone: [facility] 07-21-2023 07:59-0400 SaO2% (BldA) [Mass fraction] 98 % DO Maribeth Vuong Work Phone: [facility] 07-21-2023 07:59-0400 Systolic blood pressure 128 mm[Hg] DO Maribeth Vuong Work Phone: [facility] 01-17-2023 09:00-0400 Body height 177.8 cm Maribeth Woodymer Other [employer] Other 01-17-2023 09:00-0400 Body mass index (BMI) [Ratio] 39.17 kg/m2 Maribeth Woodymer Other [employer] Other 01-17-2023 09:00-0400 Body temperature 97.7 [degF] Maribeth Carolann Other [employer] Other 01-17-2023 09:00-0400 Body weight 123.83 kg Maribeth Vuong Other [employer] Other 01-17-2023 09:00-0400 Diastolic blood pressure 78 mm[Hg] Maribeth Carolann Other [employer] Other 01-17-2023 09:00-0400 SaO2% (BldA) [Mass fraction] 98 % Maribeth Carolann Other [employer] Other 01-17-2023 09:00-0400 Systolic blood pressure 112 mm[Hg] Maribeth Vuong Other [employer] Other 12-18-2022 09:45-0400 Body height 177.8 cm Maribeth Vuong Other [employer] Other 12-18-2022 09:45-0400 Body mass index (BMI) [Ratio] 37.73 kg/m2 Maribeth Vuong Other [employer] Other 12-18-2022 09:45-0400 Body weight 119.3 kg Maribeth Vuong Other [employer] Other 12-18-2022 09:45-0400 Diastolic blood pressure 86 mm[Hg] Maribeth Vuong Other [employer] Other 12-18-2022 09:45-0400 Respiratory rate 18 /min Maribeth Vuong Other [employer] Other 12-18-2022 09:45-0400 SaO2% (BldA) [Mass fraction] 95 % Maribeth Vuong Other [employer] Other 12-18-2022 09:45-0400 Systolic blood pressure 126 mm[Hg] Maribeth Vuong Other [employer] Other 12-12-2022 08:00-0400 Body height 177.8 cm Maribeth Vuong Other [employer] Other 12-12-2022 08:00-0400 Body mass index (BMI) [Ratio] 37.73 kg/m2 Maribeth Vuong Other [employer] Other 12-12-2022 08:00-0400 Body temperature 98.5 [degF] Maribeth Vuong Other [employer] Other 12-12-2022 08:00-0400 Body weight 119.3 kg Maribeth Vuong Other [employer] Other 12-12-2022 08:00-0400 Diastolic blood pressure 102 mm[Hg] Maribeth Vuong Other [employer] Other 12-12-2022 08:00-0400 SaO2% (BldA) [Mass fraction] 96 % Maribeth Vuong Other [employer] Other 12-12-2022 08:00-0400 Systolic blood pressure 150 mm[Hg] Maribeth Vuong Other [employer] Other 09-26-2022 10:22-0400 Diastolic blood pressure 108 mm[Hg] DO Maribeth Vuong Work Phone: [facility] 09-26-2022 10:22-0400 Heart rate 74 /min DO Maribeth Vuong Work Phone: [facility] 09-26-2022 10:22-0400 Respiratory rate 16 /min DO Maribeth Vuong Work Phone: [facility] 09-26-2022 10:22-0400 SaO2% (BldA) [Mass fraction] 98 % DO Maribeth Vuong Work Phone: [facility] 09-26-2022 10:22-0400 Systolic blood pressure 156 mm[Hg] DO Maribeth Vuong Work Phone: [facility] 09-26-2022 08:26-0400 Body height 175.26 cm DO Maribeth Vuong Work Phone: [facility] 09-26-2022 08:26-0400 Body temperature 98.5 [degF] DO Maribeth Vuong Work Phone: [facility] 09-26-2022 08:26-0400 Body weight 113.39 kg DO Maribeth Vuong Work Phone: [facility] 09-11-2022 09:45-0400 Body height 177.8 cm Maribeth Carolann Other [facility] [employer] Other 09-11-2022 09:45-0400 Body mass index (BMI) [Ratio] 35.37 kg/m2 Maribeth Vuong Other [employer] Other 09-11-2022 09:45-0400 Body weight 111.81 kg Maribeth Carolann Other [employer] Other 09-11-2022 09:45-0400 Diastolic blood pressure 88 mm[Hg] Maribeth Vuong Other [employer] Other 09-11-2022 09:45-0400 Respiratory rate 18 /min Maribeth Vuong Other [employer] Other 09-11-2022 09:45-0400 SaO2% (BldA) [Mass fraction] 98 % Maribeth Vuong Other [employer] Other 09-11-2022 09:45-0400 Systolic blood pressure 142 mm[Hg] Maribeth Vuong Other [employer] Other 07-24-2022 10:30-0400 Body height 177.8 cm Igor Orr Other [employer] Other 07-24-2022 10:30-0400 Body mass index (BMI) [Ratio] 35.58 kg/m2 Igor Castroovanner Other [employer] Other 07-24-2022 10:30-0400 Body weight 112.49 kg Igor Castroovanner Other [employer] Other 07-24-2022 10:30-0400 Diastolic blood pressure 132 mm[Hg] Igor Scovanner Other [employer] Other 07-24-2022 10:30-0400 Systolic blood pressure 187 mm[Hg] Igor Scovanner Other [employer] Other 07-15-2022 12:15-0400 Body height 177.8 cm Maribeth Vuong Other [employer] Other 07-15-2022 12:15-0400 Body mass index (BMI) [Ratio] 35.58 kg/m2 Maribeth Vuong Other [employer] Other 07-15-2022 12:15-0400 Body temperature 98.1 [degF] Maribeth Vuong Other [employer] Other 07-15-2022 12:15-0400 Body weight 112.49 kg Maribeth Vuong Other [employer] Other 07-15-2022 12:15-0400 Diastolic blood pressure 110 mm[Hg] Maribeth Vuong Other [employer] Other 07-15-2022 12:15-0400 SaO2% (BldA) [Mass fraction] 97 % Maribeth Vuong Other [employer] Other 07-15-2022 12:15-0400 Systolic blood pressure 156 mm[Hg] Maribeth Vuong Other [employer] Other 01-04-2022 12:15-0400 Body height 177.8 cm Maribeth Vuong Other [employer] Other 01-04-2022 12:15-0400 Body mass index (BMI) [Ratio] 34.39 kg/m2 Maribeth Vuong Other [employer] Other 01-04-2022 12:15-0400 Body weight 108.73 kg Maribeth Vuong Other [employer] Other 01-04-2022 12:15-0400 Diastolic blood pressure 86 mm[Hg] Maribeth Vuong Other [employer] Other 01-04-2022 12:15-0400 Respiratory rate 18 /min Maribeth Vuong Other [employer] Other 01-04-2022 12:15-0400 SaO2% (BldA) [Mass fraction] 98 % Mraibeth Vuong Other [employer] Other 01-04-2022 12:15-0400 Systolic blood pressure 136 mm[Hg] Maribeth Vuong Other [employer] Other 06-22-2021 10:00-0400 Body height 177.8 cm Maribeth Vuong Other [employer] Other 06-22-2021 10:00-0400 Body mass index (BMI) [Ratio] 34.16 kg/m2 Maribeth Vuong Other [employer] Other 06-22-2021 10:00-0400 Body weight 108 kg Maribeth Carolann Other [employer] Other 06-22-2021 10:00-0400 Diastolic blood pressure 78 mm[Hg] Maribeth Vuong Other [employer] Other 06-22-2021 10:00-0400 Respiratory rate 18 /min Maribeth Vuong Other [employer] Other 06-22-2021 10:00-0400 SaO2% (BldA) [Mass fraction] 95 % Maribeth Vuong Other [employer] Other 06-22-2021 10:00-0400 Systolic blood pressure 118 mm[Hg] Maribeth Vuong Other [employer] Other 03-08-2021 12:15-0500 Body height 177.8 cm Chalres Solares Other [employer] Other 03-08-2021 12:15-0500 Body mass index (BMI) [Ratio] 33.72 kg/m2 Charles Solares Other [employer] Other 03-08-2021 12:15-0500 Body weight 106.6 kg Charles oSlares Other [employer] Other 02-12-2021 11:00-0500 Body height 177.8 cm Maribeth Vuong Other [employer] Other 02-12-2021 11:00-0500 Body mass index (BMI) [Ratio] 33.37 kg/m2 Maribeth Vuong Other [employer] Other 02-12-2021 11:00-0500 Body temperature 98.3 [degF] Maribeth Vuong Other [employer] Other 02-12-2021 11:00-0500 Body weight 105.51 kg Maribeth Vuong Other [employer] Other 02-12-2021 11:00-0500 Diastolic blood pressure 88 mm[Hg] Maribeth Vuong Other [employer] Other 02-12-2021 11:00-0500 Respiratory rate 18 /min Maribeth Vuong Other [employer] Other 02-12-2021 11:00-0500 SaO2% (BldA) [Mass fraction] 99 % Maribeth Vuong Other [employer] Other 02-12-2021 11:00-0500 Systolic blood pressure 134 mm[Hg] Maribeth Vuong Other [employer] Other 02-01-2021 11:45-0400 Body height 177.8 cm Maribeth Vuong Other [employer] Other 02-01-2021 11:45-0400 Body mass index (BMI) [Ratio] 35.48 kg/m2 aMribeth Vuong Other [employer] Other 02-01-2021 11:45-0400 Body temperature 98.2 [degF] Maribeth Vuong Other [employer] Other 02-01-2021 11:45-0400 Body weight 112.18 kg Maribeth Vuong Other [employer] Other 02-01-2021 11:45-0400 Diastolic blood pressure 86 mm[Hg] Maribeth Vuong Other [employer] Other 02-01-2021 11:45-0400 Respiratory rate 18 /min Maribeth Vuong Other [employer] Other 02-01-2021 11:45-0400 SaO2% (BldA) [Mass fraction] 97 % Maribeth Vuong Other [employer] Other 02-01-2021 11:45-0400 Systolic blood pressure 136 mm[Hg] Maribeth Vuong Other [employer] Other Encounters Encounter Date Encounter Type Care Provider Facility Start: 09-30-2023 End: 10-02-2023 Evaluation and management of inpatient Diaz Valdovinos MD Facility:[facility] Start: 09-25-2023 End: 09-25-2023 ambulatory Diaz Valdovinos MD Facility:[facility] Start: 09-15-2023 End: 09-15-2023 ambulatory [place] Work Phone: Start: 09-15-2023 End: 09-15-2023 Patient encounter procedure [facility] [place] Work Phone: Start: 09-10-2023 End: 09-10-2023 ambulatory Diaz Valdovinos MD Facility:[facility] Start: 07-21-2023 End: 07-21-2023 ambulatory DO Maribeth Vuong Work Phone: [facility] Work Phone: Start: 07-21-2023 End: 07-21-2023 Patient encounter procedure DO Maribeth Vuong Work Phone: [facility] [place] Work Phone: Start: 06-03-2023 End: 06-03-2023 Patient encounter procedure DO [facility]eth Vuong [facility] [place] [facility] Work Phone: Start: 05-29-2023 Non-patient / Non-visit DO Maribeth Vuong Work Phone: [facility] [employer] Work Phone: Start: 03-13-2023 End: 03-13-2023 ambulatory Maribeth Vuong Other [facility] [employer] Other Start: 03-13-2023 Telephone encounter Maribeth [facility] Start: 02-05-2023 End: 02-05-2023 ambulatory Maribeth Vuong Other [facility] [employer] Other Start: 02-05-2023 Telephone encounter Maribeth Mercer [facility] [place] Start: 01-17-2023 End: 01-17-2023 ambulatory Maribeth Vuong Other [facility] [employer] Other Start: 01-17-2023 Encounter for genera l adult medical examination without abnormal findings Maribeth Vuong [facility] [place] Start: 01-17-2023 Periodic preventive med est patient 40-64yrs Maribeth Carolann [facility] [place] Start: 12-18-2022 (Procedure) Short Maribeth Vuong [facility] [place] Start: 12-18-2022 End: 12-18-2022 ambulatory Maribeth Vuong Other [employer] Other Start: 12-12-2022 End: 12-12-2022 ambulatory Maribeth Vuong Other [employer] Other Start: 12-12-2022 Office outpatient visit 15 minutes Maribeth Vuong [facility] [place] Start: 12-05-2022 End: 12-05-2022 ambulatory Maribeth Carolann Other [employer] Other Start: 12-05-2022 Telephone encounter Maribeth Carolann [facility] [place] Start: 09-28-2022 End: 09-28-2022 ambulatory Nash Cardenas Other [facility] [employer] Other Start: 09-28-2022 Telephone encounter Nash Cardenas [facility] Start: 09-26-2022 End: 09-26-2022 ambulatory Nash Cardenas Facility:[facility] Start: 09-26-2022 End: 09-26-2022 Admission to same day surgery center DO Maribeth Vuong Work Phone: [facility] Work Phone: Start: 09-26-2022 End: 09-26-2022 ambulatory DO Maribeth Vuong Work Phone: [facility] Work Phone: Start: 09-11-2022 (Procedure) Short Maribeth Vuong [facility] [place] Start: 09-11-2022 End: 09-11-2022 ambulatory Maribeth Vuong Other [employer] Other Start: 09-10-2022 End: 09-10-2022 ambulatory Maribeth Vuong Other [employer] Other Start: 09-10-2022 Telephone encounter Maribeth Carolann [facility] [place] Start: 09-03-2022 End: 09-03-2022 ambulatory NARENDALBERTA GOMIJODEEY . Facility: Start: 08-20-2022 End: 08-20-2022 ambulatory Maribeth N Carolann Facility:[facility] Start: 08-20-2022 End: 08-20-2022 ambulatory DO Maribeth Vuong Work Phone: [facility] Work Phone: Start: 08-20-2022 End: 08-20-2022 Patient encounter procedure DO Maribeth Vuong Work Phone: [facility] [address] Start: 08-16-2022 End: 08-17-2022 ambulatory NARENDRANATH LAKSHMIPATHY . Facility:[facility] Start: 08-02-2022 End: 08-02-2022 ambulatory Maribeth Vuong Other [employer] Other Start: 08-02-2022 Telephone encounter Maribeth Mercer [facility] Start: 07-30-2022 End: 07-30-2022 ambulatory NARENDRANATH LAKSHMIPATHY . Facility:[facility] Start: 07-24-2022 End: 07-24-2022 ambulatory Igor Orr Other [employer] Other Start: 07-24-2022 Office outpatient ne w 30 minutes Igor Orr [facility] Start: 07-23-2022 End: 07-24-2022 ambulatory NARENDRANATH LAKSHMIPATHY . Facility:[facility] Start: 07-16-2022 End: 07-16-2022 ambulatory Maribeth Vuong Other [employer] Other Start: 07-16-2022 Telephone encounter Maribeth Carolann [facility] [place] Start: 07-15-2022 Office outpatient visit 25 minutes Maribeth Vuong [facility] [place] Start: 07-15-2022 Telephone encounter Maribeth Carolann [facility] Start: 07-15-2022 End: 07-15-2022 ambulatory DO Maribeth Vuong Work Phone: [employer] Other Start: 07-15-2022 End: 07-15-2022 Patient encounter procedure DO Maribeth Carolann Work Phone: [facility] Start: 07-12-2022 End: 07-12-2022 ambulatory Maribeth Vuong Facility:[facility] Start: 07-12-2022 Encounter for genera l adult medical examination without abnormal findings Maribeth Vuong [facility] Start: 07-12-2022 End: 07-12-2022 ambulatory DO Maribeth Vuong Work Phone: [facility] Work Phone: Start: 07-12-2022 End: 07-12-2022 Patient encounter procedure DO Maribeth Carolann Work Phone: [facility] [place] Work Phone: Start: 07-02-2022 End: 07-03-2022 ambulatory [...] 01-04-2022 End: 01-04-2022 ambulatory Maribeth Vuong Other [facility] [employer] Other Start: 01-04-2022 Encounter for genera l adult medical examination without abnormal findings Maribeth Vuong [facility] [place] Start: 01-04-2022 Periodic preventive med est patient 40-64yrs Maribeth Vuong [facility] [place] Start: 12-13-2021 End: 12-14-[address] JESSICA JOEL . Facility:[facility] Start: 10-31-2021 End: 11-01-[address] JESSICA JOEL . Facility:[facility] Start: 10-03-2021 End: 10-04-2021 ambulatory BRIT SCHUSTER . Facility:[facility] Start: 09-29-2021 End: 09-29-2021 ambulatory MARIBETH VUONG Facility:[facility] Start: 08-17-2021 End: 08-17-2021 ambulatory Charles Solares Other [employer] Other Start: 08-17-2021 Telephone encounter Charles Solares [facility] [place] Start: 08-07-2021 End: 08-07-2021 ambulatory Charles Solares Other [employer] Other Start: 08-07-2021 Telephone encounter Charles COCHRAN [facility] Start: 07-13-2021 End: 07-13-2021 ambulatory Maribeth Vuong Other [employer] Other Start: 07-13-2021 Telephone encounter Maribeth Vuong [facility] [place] Start: 07-09-2021 End: 07-09-2021 ambulatory Charles Solares Other [employer] Other Start: 07-09-2021 Office outpatient visit 25 minutes Charles Solares [facility] [place] Start: 06-22-2021 End: 06-22-2021 ambulatory Maribeth Vuong Other [employer] Other Start: 06-22-2021 Office outpatient visit 15 minutes Maribeth Vuong [facility] [place] Start: 06-06-2021 End: 06-06-2021 ambulatory Charles Solares Other [employer] Other Start: 06-06-2021 Office outpatient visit 25 minutes Charles Felter [facility] [place] Start: 05-29-2021 End: 05-29-2021 ambulatory Maribeth Vuong Other [employer] Other Start: 05-29-2021 Telephone encounter Maribeth Mercer [facility] [place] Start: 05-22-2021 End: 05-22-2021 ambulatory Maribeth Vuong Other [employer] Other Start: 05-22-2021 Telephone encounter Maribeth Mercer [facility] [place] Start: 05-21-2021 End: 05-21-2021 ambulatory Maribeth Vuong Other [employer] Other Start: 05-21-2021 Telephone encounter Maribeth Mercer [facility] [place] Start: 05-08-2021 End: 05-08-2021 ambulatory Charles Hernandezer Other [employer] Other Start: 05-08-2021 Office outpatient visit 25 minutes Charles Felter [facility] [place] Start: 04-12-2021 End: 04-12-2021 ambulatory Charles Felter Other [employer] Other Start: 04-12-2021 Office outpatient visit 25 minutes Charles Felter [facility] [place] Start: 03-08-2021 End: 03-08-2021 ambulatory Charles Felter Other [employer] Other Start: 03-08-2021 Office outpatient visit 25 minutes Charles Felter [facility] [place] Start: 02-28-2021 End: 02-28-2021 ambulatory Maribeth Vuong Other [employer] Other Start: 02-28-2021 Telephone encounter Maribeth Mercer [facility] [place] Start: 02-12-2021 End: 02-12-2021 ambulatory Maribeth Vuong Other [employer] Other Start: 02-12-2021 Office outpatient visit 15 minutes Maribeth Vuong [facility] [place] Start: 02-05-2021 Office outpatient visit 25 minutes Charles Solares [facility] [place] Start: 02-01-2021 Office outpatient visit 15 minutes Maribeth Vuong [facility] [place] Start: 01-08-2021 Office outpatient visit 25 minutes Charles Solares [facility] [place] Start: 06-09-2018 End: 06-10-2018 Patient encounter procedure PHI VILLAFUERTEANNES CAITLIN [facility] Start: 04-01-2018 End: 04-01-2018 Emergency department patient visit Lashay Li [facility] Procedures Date Procedure Procedure Detail Performing Clinician Start: 06-03-2023 Plain X-ray of left hand DO Maribeth Vuong Work Phone: Start: 09-26-2022 Colonoscopy DO Maribeth Vuong Work Phone: Start: 07-15-2022 Diagnostic radiograp hy of abdomen DO Maribeth Vuong Work Phone: Plan of Treatment Date Care Activity Detail Author Start: 09-26-2022 [facility] Patient Education Hemorrhoids (DC) [facility] Work Phone: Immunizations Immunization Date Immunization Notes Care Provider Fa boy 12-07-2020 COVID-19 Vaccine Corey - Documentation Purposes Only Charles Solares Other [facility] 03-25-2019 Depo-Medrol 80 mg Charles lewis Other [employer] Other 12-11-2017 Kenalog -40 mg Charles Solares Other [employer] Other Payers Date Payer Category Payer Unknown 2022 Self-pay [id number] 1979 Unknown [id number] 2.16.84 [id number] 1979 Unknown [id number] 2.16.84 0.1.468592.3.579.2.593 1979 Unknown [id number] 2.16.84 0.1.032193.3.579.2.593 1979 Unknown [id number] 2.16.84 0.1.496354.3.579.2.593 1979 Unknown [id number] 2.16.84 0.1.072574.3.579.2.593 1979 Unknown [id number] 2.16.84 0.1.477967.3.579.2.593 1979 Unknown [id number] 2.16.84 0.1.693189.3.579.2.593 1979 Unknown [id number] 2.16.84 0.1.824539.3.579.2.593 1979 Unknown [id number] 2.16.84 0.1.683872.3.579.2.593 1979 Unknown [id number] 2.16.84 0.1.340667.3.579.2.593 1979 Unknown [id number] 2.16.84 0.1.995053.3.579.2.593 1979 Unknown [id number] 2.16.84 0.1.287229.3.579.2.593 1979 Unknown [id number] 2.16.84 0.1.596667.3.579.2.593 1979 Unknown [id number] 2.16.84 0.1.907587.3.579.2.593 1979 Unknown [id number] 2.16.84 0.1.404305.3.579.2.593 1979 Unknown [id number] 2.16.84 0.1.536249.3.579.2.593 1979 Unknown [id number] 2.16.84 0.1.082229.3.579.2.593 1979 Unknown [id number] 2.16. 840.1.182697.3.579.2.196 1979 Unknown [id number] 2.16. 840.1.973623.3.579.2.196 1979 Unknown [id number] 2.16. 840.1.472327.3.579.2.196 1960 Medicaid [id number] 1960 Unknown [id number] 1959 Unknown [id number] Blue Cross Blue Shield [id number] 2.16.840.1.521638.19 Unknown [facility] [id number] Unknown [id number] 2.16.8 40.1.609590.3.579.2.531 Unknown [id number] 2.16.8 40.1.718538.3.579.2.531 Unknown [id number] 2.16.8 40.1.988175.3.579.2.531 Unknown [id number] 2.16.8 40.1.770593.3.579.2.531 Social History Date Type Detail Facility Unknown if ever smoked [employer] Other Sex Assigned At Sex Assigned At Bir th [employer] Other Start: 04-13-2019 Tobacco smoking status NHIS Smoker (finding) [facility] Start: 1980 Sex Assigned At Male F [facility] Start: 09-26-2022 Tobacco smoking status SCIS Current some day smoker [facility] Goals Date Patient Goal Desired Activity [...] Vishal PLEITEZ, Homar Mayers 10/02/23 05:07 EDT [facility] 09-30-2023 Note Operative Report DATE OF [...] [employer] SURGEON: Diaz Valdovinos MD CLINICAL PROJECT COORDINATOR: MAGGIE Duran PA-C assisted throughout the procedure [...] monitoring remained stable (more content not included)... [facility] 09-29-2023 Note Chief Complaint Back pain History of Present Illness The patient is a 42-year-old male with complaints of constant low back pain that radiates to shooting pain into his buttocks and perineal region, he did have pain radiating down the posterior legs but had a RFA in February, which helped with his shooting pain. He also has burning and [id number] along the right lateral foot and toes. [...] CT and MRI Lumbar Spine done at [place] Electronically signed by Qamar Recio PA-C 09/29/23 09:58 EDT Electronically signed by Diaz Valdovinos MD 09/30/2023 09:41 EDT [facility] 03-13-2023 Evaluation note Encounter Date Diagnosis Assessment Notes Mar, Primary osteoarthritis of both first carpometacarpal joints (ICD-10 - M18.0) [employer] Other 11-01-2023 Evaluation note* Encounter Date Diagnosis Assessment Notes Treatment Notes Treatment Clinical Notes Feb, Primary hypertension (ICD-10 - I10) [facility] [employer] Other 10-13-2023 Evaluation note* Encounter Date Diagnosis [...] Jan, Medication monitoring encounter (ICD-10 - Z51.81) [employer] Other 09-13-2023 Evaluation note* Encounter Date Diagnosis Assessment Notes Treatment Notes Treatment Clinical Notes Dec, Primary osteoarthrit is of first carpometacarpal joint of left hand (ICD-10 - M18.12) [employer] Other 09-07-2023 Evaluation note* Encounter Date Diagnosis [...] he has any issues with the medicine. [employer] Other [facility]* Encounter Date Diagnosis Assessment Notes Treatment Notes Treatment Clinical Notes Sep, Primary osteoarthrit is of both first carpometacarpal joints (ICD-10 - M18.0) [employer] Other 04-19-2023 Evaluation note* Encounter Date Diagnosis [...] colonoscopy to rule out luminal etiologies made [employer] Other 04-18-2023 NoteCONSULTATION CONSULTATION DATE: 07/23/2022 TO: [...] our patients to inform us about any [id number] medications or herbal remedies/nutritional supplements/alternative remedies. 2. [...] treatment options with their primary care provider[id number] note * Encounter Date Diagnosis Assessment Notes Treatment Notes Treatment Clinical Notes Jul, Generalized abdominal pain (ICD-10 - R10.84) [employer] Other 04-10-2023 Evaluation note* Encounter Date Diagnosis [...] Jul, Medication monitoring encounter (ICD-10 - Z51.81) [employer] Other 04-10-2023 Evaluation note* Encounter Date Diagnosis Assessment Notes Treatment Notes Treatment Clinical Notes Jul, Slow transit constipation (ICD-10 - K59.01) [employer] Other 03-28-2023 NoteCONSULTATION CONSULTATION DATE: 07/02/2022 TO: [...] as well as his lumbar spine films.[facility] [id number] Note CONSULTATION CONSULTATION DATE: 06/13/2022 HISTORY OF [...] relief. He has been seen both at [place] and [facility] in the past, and received [...] under the care of Dr. Joshua in [place]. He is unwilling to try Lyrica due [...] Patient is in agreement to this plan.[facility] [id number] NoteCONSULTATION CONSULTATION DATE: 03/14/2022 HISTORY OF PRESENT [...] in three months' time, unless otherwise indicated.[facility] [id number] NoteCONSULTATION CONSULTATION DATE: 02/07/2022 HISTORY OF PRESENT [...] followed up in the office post procedure.[facility] [id number] Evaluation note* Encounter Date Diagnosis Assessment Notes [...] Dec, Prostate cancer screening (ICD-10 - Z12.5) [employer] Other 09-08-2022 NoteCONSULTATION CONSULTATION DATE: 12/13/2021 HISTORY [...] of care and all questions were answered.[facility] [id number] Note CONSULTATION PROCEDURE DATE: 10/31/2021 PREOPERATIVE DIAGNOSIS: [...] will be followed up in the office.[facility] [id number] Note CONSULTATION CONSULTATION DATE: 10/03/2021 This is [...] seen in the clinic. [facility] Signed and Approved by: BRIT SCHUSTER . 10/11/2021 16:28:00[facility]04-04-2022 Evaluation note* Encounter Date Diagnosis Assessment Notes [...] Patient notes prior issues with [facility] billing department and states he is [...] note writ ten by Km Cervantes MA, Testing Director. Edited and approved by Dr. Charles Solares MD. [employer] Other 03-18-2022 Evaluation note* Encounter Date Diagnosis [...] and he is to continue with it. [employer] Other 03-02-2022 Evaluation note* Encounter Date Diagnosis [...] note writ ten by Km Cervantes CMA, Testing Director. Edited and approved by Dr. Charles Solares MD. [employer] Other 02-15-2022 Evaluation note* Encounter Date Diagnosis Assessment Notes Treatment Notes Treatment Clinical Notes May, Cigarette nicotine dependence without complication (ICD-10 - F17.210) [employer] Other 02-14-2022 Evaluation note* Encounter Date Diagnosis Assessment Notes Treatment Notes Treatment Clinical Notes May, Other spondylosis with radiculopathy, lumbar region (ICD-10 - M47.26) [employer] Other 02-01-2022 Evaluation note* Encounter Date Diagnosis [...] was refilled today. Saliva sample performed through [facility] today, will await confirmatory results. Opiod contract updated at this time. May, Other chronic pain (ICD-10 - G89.29) May, Other Above note writ ten by Sonya Dawson LPN, Testing Director. Edited and approved by Dr. Charles Solares MD. [facility] Other 01-06-2022 Evaluation note* Encounter Date Diagnosis [...] note writ ten by Km Cervantes CMA, Testing Director. Edited and approved by Dr. Charles Solares MD. [employer] Other 12-02-2021 Evaluation note* Encounter Date Diagnosis [...] Above note written by Sonya Dawson LPN, Testing Director. Edited and approved by Dr. Charles Solares MD. [employer] Other 11-08-2021 Evaluation note* Encounter Date Diagnosis [...] Patient voiced understanding agrees with this plan. [employer] Other 11-01-2021 Evaluation note* Encounter Date Diagnosis [...] note writ ten by Donita Henson CMA, Testing Director. Edited and approved by Dr. Charles Solares MD. [employer] Other 10-28-2021 Evaluation note* Encounter Date Diagnosis [...] message to Dr. Solares passing this along. [employer] Other 10-04-2021 Evaluation note* Encounter Date Diagnosis [...] educated regarding the risks and benefits of senior living opioid use. He understands the associated risks with this medication and agrees that it provides reasonable benefit in regards to his pain control and level of function. Oxycodone Acetaminophen was refilled today. Jan, Other chronic pain (ICD-10 - G89.29) [employer] Other Evaluation noteNo InformationNort [employer] Other Evaluation noteNo assessment information available [facility] Work Phone: Evaluation note* Diagnosis Onset Date Resolution Status Osteoarthritis of carpometac arpal joint of left thumb acute Primary osteoarthritis, left hand acute BPH (benign prostatic hyperplasia) chronic Hemorrhoid chronic Other spondylosis with radiculopathy, lumbar region chronic Blood present in stool nonea ctive [facility] Work Phone: Evaluation note* Diagnosis Onset Date Resolution Status BPH (benign prostatic hyperplasia) chronic Hemorrhoid chronic Other spondylosis with radiculopathy, lumbar region chronic Blood present in stool nonea ctive Other spondylosis with radiculopathy, lumbar region chronic Preoperative clearance nonea [facility] Work Phone: History and physical note Author Nash Cardenas [facility] September 26, 2022 9:39am Note Date/Time September 26, 2022 9:39 am [facility] [address] [place] [address] Gastroenterology H&P Signed Patient: Neal Parker MR#: [id number] : 1980 Acct:[id number] Age/Sex: 41 / M Adm Date: 3 Loc: Room: Type: [facility] Attending Dr: Nash Cardenas MD Copies to: [...] <Electronically signed by Nash Cardenas MD> 09/26/22938 [facility] Work Phone: Hisdimm general Narrative - Reported* Type Description Date Medical History Hx spinal fusion Medical History Lumbar radiculopathy Medical History Trigger point Surgical History L5 S1 fusion 2014 Surgical History Left lower leg surgery (multipl e fractures) Surgical History foreign body excision right mid dle finger Hospitalization History pneumonia as FamilyID Other Hisbknu general Narrative - Reported* Type Description Date Medical History Hx spinal fusion Medical History Lumbar radiculopathy Medical History Trigger point Surgical History L5 S1 fusion 2014 Surgical History Left lower leg surgery (multipl e fractures) Surgical History foreign body excision right mid dle finger Surgical History lumbar facet nerve b lock injection - Dr. Saldivar in [place] PM 11/2022 Hospitalization History pneumonia as FamilyID Other Hisejkd general Narrative - Reported* Type Description Date Medical History Hx spinal fusion Medical History Lumbar radiculopathy Medical History Trigger point Surgical History L5 S1 fusion 2014 Surgical History Left lower leg surgery (multipl e fractures) Surgical History foreign body excision right mid dle finger Surgical History lumbar facet nerve b lock injection - Dr. Saldivar in [place] 11/2022 Surgical History R side nerve ablation 01/2023 Hospitalization History pneumonia as FamilyID Other Hospital Discharge instructions Additional Instructions DISCHARGE [...] years. -Follow up with PCP. -Office number [phone].[facility] Work Phone: Renfaj for visit NarrativePatient here at the request of Dr. Vuong for evaluation & treatment of abdominal pain, change in bowel habits, weight loss, rectal bleeding.[employer] Other Rejbrt for visit NarrativeProcedure appt and DNR-A signNonorthwest medical center [facility] Other Summary Purpose Family History No Family [...] both first carpometacarpal joints (M18.0) Referral Organization [facility] Family Camdencristóbal luisa Tom Referring Provider First Name Maribeth Referring Provider Last Name Carolann Referring Provider Specialty Family Prac patito Referred Organization [facility] Referred Address [address] [place],[address] Referred Provider Specialty ORTHOPEDIC S URGEON Referral Priority Routine Reason * Waiting for appt CT and KUB normal, generalized pain of unclear etiology Diagnosis 1 Generalized abdomina l pain (R10.84) Referral Organization [facility] Family Camdencristóbal luisa Tom Referring Provider First Name Maribeth Referring Provider Last Name Carolann Referring Provider Specialty Family Prac patito Referred Organization [facility] Gastroenterolo gy Referred Provider Dwayne Salas Referred Address [address] ,[place], [place],[address] Referred Provider Specialty Gastroentero logy Referral Priority [...] continuous use of opioids (F11.90) Referral Organization [facility] Family Camdencristóbal luisa Tom Referring Provider First Name Maribeth Referring Provider Last Name Carolann Referring Provider Specialty Family Prac patito Referred Organization [facility] Referred Address [address],[place], [place],[address] Referred Provider Specialty Pain Medicin e Referral Priority Routine General Notes Rebeca Vivar 11:08:53 AM >referral received and faxed Clinical Notes P- [phone] Chief Complaint and Reason for Visit Chief [...] section and content) DATE CREATED AUTHOR 05/25/2018 [facility] DATE CREATED AUTHOR AUTHOR'S ORGANIZ ATION 06/11/2018 [facility] DATE CREATED AUTHOR AUTHOR'S ORGANIZ ATION 09/15/2022 [facility] DATE CREATED AUTHOR AUTHOR'S ORGANIZ ATION 10/04/2022 [facility] DATE CREATED AUTHOR AUTHOR'S ORGANIZ ATION 10/31/2023 [facility] REASON FOR VISIT (unrecogniz ed section and content) 1 MOback pain getting worse, pain management not working4 WK RECHECKDISCUSS DISABILITY OPTIONSLab results1 MO1 MONTH RECHECKCHANTIX1 month Follow upscript requestpaperwork1 MONTH FOLLOW UPCHANTIX refill/discuss back concerns1 MONTHNo InformationNo InformationPROCEDURE NOTES1 year Follow up/ AWVAbdominal Pain/ incontinencenew medication.ReferralPain ManagementB/L thumb steroid inj./ sign DNR-AORDERS PER DR Casanovaated bpelevated BP at PM in [place], no sxinjection L thumb1 year Follow upLosartan/HCTZsteroid [...] BE BASED ON THE PRIMARY CLINICAL RECORDS. [facility] [employer] [facility]. provides no warranty or guarantee of the accuracy or completeness of information in this document.
--- NOTE | 2023-12-18 11:48 | XR_ITS ---
[address] [address] Patient Name: NEAL PARKER MRN: [id number] date: 1980 Sex: M Assigned Patient Location: [facility] Current Patient Location: Accession/Order Number: [id number] Exam Date: 12/18/2023 11:57 Report Date: 12/20/2023 07:13 At the request of: ANTONIO RAPHAEL Procedure: XR lumbar spine 2-3V EXAMINATION: XR lumbar spine 2-3V HISTORY: Aftercare Following Surgery Of The Musculoskeletal System COMPARISON: XR lumbar spine 11/07/2023 FINDINGS: BONES: Mechanical fusion L5-S1 via bilateral pedicle screws and rods; no appreciable hardware fracture loosening. Posterior decompression of L5. Normal height and alignment of the vertebral bodies. No significant facet arthropathy. DISC SPACES: Intervertebral spacers L5-S1. Suspect slight narrowing at remaining lumbar levels. PARASPINOUS: Negative. No paraspinous abnormality is seen. OTHER: Negative. XR/XR lumbar spine 2-3V IMPRESSION: 1. Stable surgical changes without evidence of hardware failure or change in alignment. 2. No acute or new abnormality. Electronically authenticated by: DAMARIS ESPINOSA Date: 12/20/2023 07:13
== END 2023-12-18 11:38 | disposition home or self-care (01) ==
LOC: RAD 11:38
PROVIDERS: Visit Provider Orthopaedic Surgery Orthopaedic Surgery of the Spine
DX: Z47.89 Encounter for other orthopedic aftercare (principal); M43.26 Fusion of spine, lumbar region
CPT/HCPCS: 72100

== ENCOUNTER 2024-01-16 10:25 | Outpatient (OUT) | payer OTHER, SELFPAY ==
--- OUTSIDE RECORDS SUMMARY | 2024-01-16 10:41 | XMS_ITS | CCD ---
Author Organization [facility] CliniSyhi Care Team Providers Care Sales Contract Administrator Name Role Phone Lashay Li Admitting Unavailable Lashay Li Attending Unavailable RENE MORRELL Primary Care Unavailable PHI RENE Attending Unavaila Charles Cohen Unavailable Carolann, Maribeth Unavailable Carolann, Maribeth Unavailable Carolann, Maribeth Unavailable Carolann, DO Maribeth Williamson Primary Care Provider [phone] Carolann, DO Maribeth Williamson Attending Provider [phone] Igor Orr Unavailable CAROLANN, MARIBETH Primary Care [...] ., BRIT Consulting Unavailable JOEL ., DR JSESICA Huerta Attending Unavailable CAROLANN, MARIBETH Primary Care Unavailable JOEL ., DR JSESICA Huerta Admitting Unavailable SCHUSTER ., BRIT Consulting [...] Care Provider MD Nisha Villanueva Attending Provider [phone] [facility] Keri PLEITEZ, Diaz Mercer Attending UnavailDiaz Mckinney MD Admitting Unavailmary Rodgers MD, Homar Mayers Consulting Unavail able Maribeth Vuong DO Primary [facility] Jessyvai Qamar Higgins Consulting Unavailable Diaz Valdovinos MD Attending Unavailabl e Maribeth Vuong DO [facility] Unavai labDiaz Casillas MD Attending Unavailabl Maribeth Guy DO [facility] Unavai lable Allergies Allergy Classification Reported Allergen(s) Allergy Type Date of Onset Reaction(s) Facility (18 sources) gabapentin; Translations: [gabapentin] Drug Allergy 3 dizziness, sleepy, Drowsy, Drowsy, dizziness, sleepy [facility] (1 source) gabapentin Drug Allergy [facility] Repository (12 sources) zonisamide; Translations: [zonisamide] Drug Allergy 3 diarrhea [facility] (1 source) gabapentin Drug Allergy 3 [facility] Repository (1 source) zonisamide Drug Allergy [address] [place] [address] Repository Medications Current Medications Medication Drug Class(es) [...] Jun, Active take 1 capsule by mo [facility] every twenty-four hours Cymbalta [...] take 1 tablet by mouth once daily Losartan-[place] chlorothiazide Active 1 TAB PO Daily July [...] Once a day Active polyethylene glycol 3350 224171 mg / potassium chloride 2970 mg / sodium bicarbonate 6740 mg / sodium chloride 5860 mg / sodium sulfate 97603 mg powder for oral solution (6 sources) [...] 2016 12:00am January 29, 2019 7:38am sennosides, mcc 8.6 mg oral tablet (16 sources) Start: [...] 07-12-2022 Episodic Other aftercare (1 source) Other manager long term care (current) drug therapy; Translations: [OTH SKILLED NURSING CURRENT DRUG THERAPY] Onset: 07-17-2022 Episodic Other [...] MDRD (S/P/Bld) [Vol rate/Area] mL/min/{1.73_m2} Normal >=60 [facility] Comment on above: Result Comment: [facility] Laboratories have implemented the eGFR calculation [...] Age = years Performed By: #### C D:[id number] #### [address] [address] Basic Metabolic Profileon Anion gap [Moles/Vol] 5 mmol/L Normal 4-12 [facility] Comment on above: Performed By: #### C D:[id number] #### [address] [address] Calcium [Mass/Vol] 8.2 mg/dL Low 8.5-10.3 [facility] Comment on above: Performed By: #### C D:[id number] #### [address] [address] Chloride [Moles/Vol] 106 mmol/L Normal 98-110 [facility] Comment on above: Performed By: #### C D:[id number] #### [address] [address] CO2 [Moles/Vol] 27 mmol/L Normal 22-32 [facility] Comment on above: Performed By: #### C D:[id number] #### [address] [address] Creatinine [Mass/Vol] 0.75 mg/dL Normal 0.61-1.24 [facility] Comment on above: Performed By: #### C D:[id number] #### [address] [address] Glucose [Mass/Vol] 88 mg/dL Normal 70-99 [facility] Comment on above: Performed By: #### C D:[id number] #### [address] [address] Potassium [Moles/Vol] 3.9 mmol/L Normal 3.4-4.8 [facility] Comment on above: Performed By: #### C D:[id number] #### [address] [address] Sodium [Moles/Vol] 138 mmol/L Normal 133-142 [facility] Comment on above: Performed By: #### C D:[id number] #### [address] [address] Urea nitrogen [Mass/Vol] 13 mg/dL Normal 8-26 [facility] Comment on above: Performed By: #### C D:[id number] #### [address] [address] Urea nitrogen/Creatinine [Mass ratio] 17.3 mg/mg Normal 10.0-20.0 [facility] Comment on above: Performed By: #### C D:[id number] #### [address] [address] CBC w/ Diffon 10-02-2023 Erythrocyte distribution width (RBC) [Ratio] 14.4 % Normal 11.6-14.8 [facility] Comment on above: Performed By: #### E GFR #### [address] [address] Hematocrit (Bld) [Volume fraction] 37.0 % Low 41.0-53.0 [facility] Comment on above: Performed By: #### E GFR #### [address] [address] Hemoglobin (Bld) [Mass/Vol] 12.1 g/dL Low 13.5-17.5 [facility] Comment on above: Performed By: #### E GFR #### [address] [address] MCH (RBC) [Entitic mass] 30.2 pg Normal 27.0-35.0 [facility] Comment on above: Performed By: #### E GFR #### [address] [address] MCHC 32.6 % Normal 31.0-37.0 [facility] Comment on above: Performed By: #### E GFR #### [address] [address] MCV (RBC) [Entitic vol] 92.6 fL Normal 80.0-100.0 [facility] Comment on above: Performed By: #### E GFR #### [place] [id number] Platelet 174 x10*3/mcL Normal 150-450 [facility] Comment on above: Performed By: #### E GFR #### [address] [address] Platelet mean volume (Bld) [Entitic vol] 10.7 fL High 6.7-10.6 [facility] Comment on above: Performed By: #### E GFR #### [address] [address] RBC 4.00 x10*6/mcL Low 4.30-5.80 [facility] Comment on above: Performed By: #### E GFR #### [address] [address] WBC 11.9 x10*3/mcL High 4.5-11.0 [facility] Comment on above: Performed By: #### E GFR #### [address] [address] Diff Autoon 10-02-2023 Baso Absolute 0.0 x10*3/mcL Normal 0.0-0.2 [facility] Comment on above: Performed By: #### C D:[id number] #### [address] [address] Basophils/100 WBC (Bld) 0.2 % Normal 0.0-1.2 [facility] Comment on above: Performed By: #### C D:[id number] #### [address] [address] Eos Absolute 0.2 x10*3/mcL Normal 0.0-0.4 [facility] Comment on above: Performed By: #### C D:[id number] #### [address] [address] Eosinophils/100 WBC (Bld) 1.5 % Normal 0.0-6.1 [facility] Comment on above: Performed By: #### C D:[id number] #### [address] [address] Lymph Absolute 5.1 x10*3/mcL High 1.0-4.8 [facility] Comment on above: Performed By: #### C D:[id number] #### [address] [address] Lymphocytes/100 WBC (Bld) 42.9 % High 27.2-40.8 [facility] Comment on above: Performed By: #### C D:[id number] #### [address] [address] Glasscock Absolute 0.9 x10*3/mcL Normal 0.3-1.1 [facility] Comment on above: Performed By: #### C D:[id number] #### [address] [address] Monocytes/100 WBC (Bld) 7.1 % Normal 4.7-13.9 [facility] Comment on above: Performed By: #### C D:[id number] #### [address] [address] Neutro Absolute 5.7 x10*3/mcL Normal 1.8-7.7 [facility] Comment on above: Performed By: #### C D:[id number] #### [address] [address] Neutro Auto 48.3 % Normal 47.2-70.8 [facility] Comment on above: Performed By: #### C D:[id number] #### [address] [address] Inpatient Clinical Summaryon 10-02-2023 Inpatient Clinical Summary [address] [address] [place] [address] Clinical Summary Person Information Name: Neal Parker Age: 42 Years : 1980 Sex: Male PCP: Maribeth Vuong DO Marital Status: Phone: PCP: Race: White Ethnicity: Not or Language: Palestinian Visit Id: Visit Reason: Speciality: Acuity: Enc Type: Inpatient Med Service: Surgery Arrival: 09/30/2023 08:56:12 Discharge: Dispo Type: Address: [address] [place] [id number] Diagnosis: Discharged To: Home Treatments: Devices/Equipment: Professional [...] range between ( 27.2 and 40.8 ) Glasscock Auto: 7.1 % -- Normal range between [...] range between ( 41.0 and 53.0 ) [place] Absolute: 0.9 x10 MCH: 30.2 pg -- [...] to r (more content not included)... Normal [facility] .eGFRon 10-01-2023 GFR/1.73 sq M.predicted MDRD (S/P/Bld) [Vol rate/Area] mL/min/{1.73_m2} Normal >=60 [facility] Comment on above: Order Comment: Order added by Discern rule Result Comment: [facility] Laboratories have implemented the eGFR calculation [...] Performed By: #### E GFR #### [address] [address] Basic Metabolic Profileon Calcium [Mass/Vol] 8.4 mg/dL Low 8.5-10.3 [facility] Comment on above: Performed By: #### E GFR #### [address] [address] Anion gap [Moles/Vol] 6 mmol/L Normal 4-12 [facility] Comment on above: Performed By: #### E GFR #### [address] [address] Chloride [Moles/Vol] 107 mmol/L Normal 98-110 [facility] Comment on above: Performed By: #### E GFR #### [address] [address] CO2 [Moles/Vol] 26 mmol/L Normal 22-32 [facility] Comment on above: Performed By: #### E GFR #### [address] [address] Creatinine [Mass/Vol] 0.97 mg/dL Normal 0.61-1.24 [facility] Comment on above: Performed By: #### E GFR #### [address] [address] Glucose [Mass/Vol] 119 mg/dL High 70-99 [facility] Comment on above: Performed By: #### E GFR #### [address] [address] Potassium [Moles/Vol] 4.1 mmol/L Normal 3.4-4.8 [facility] Comment on above: Performed By: #### E GFR #### [address] [address] Sodium [Moles/Vol] 139 mmol/L Normal 133-142 [facility] Comment on above: Performed By: #### E GFR #### [address] [address] Urea nitrogen [Mass/Vol] 15 mg/dL Normal 8-26 [facility] Comment on above: Performed By: #### E GFR #### [address] [address] Urea nitrogen/Creatinine [Mass ratio] 15.5 mg/mg Normal 10.0-20.0 [facility] Comment on above: Performed By: #### E GFR #### [address] [address] CBC w/ Diffon 10-01-2023 Erythrocyte distribution width (RBC) [Ratio] 13.9 % Normal 11.6-14.8 [facility] Comment on above: Performed By: #### E GFR #### [address] [address] Hematocrit (Bld) [Volume fraction] 38.3 % Low 41.0-53.0 [facility] Comment on above: Performed By: #### E GFR #### [address] [address] Hemoglobin (Bld) [Mass/Vol] 12.5 g/dL Low 13.5-17.5 [facility] Comment on above: Performed By: #### E GFR #### [place] [id number] MCH (RBC) [Entitic mass] 30.2 pg Normal 27.0-35.0 [facility] Comment on above: Performed By: #### E GFR #### [place] [id number] MCHC 32.7 % Normal 31.0-37.0 [facility] Comment on above: Performed By: #### E GFR #### [place] [id number] MCV (RBC) [Entitic vol] 92.3 fL Normal 80.0-100.0 B [facility] Comment on above: Performed By: #### E GFR #### [place] [id number] Platelet 175 x10*3/mcL Normal 150-450 [facility] Comment on above: Performed By: #### E GFR #### [place] [id number] Platelet mean volume (Bld) [Entitic vol] 11.3 fL High 6.7-10.6 [facility] Comment on above: Performed By: #### E GFR #### [place] [id number] RBC 4.15 x10*6/mcL Low 4.30-5.80 [facility] Comment on above: Performed By: #### E GFR #### [place] [id number] WBC 15.0 x10*3/mcL High 4.5-11.0 [facility] Comment on above: Performed By: #### E GFR #### [place] [id number] Diff Autoon 10-01-2023 Baso Absolute 0.0 x10*3/mcL Normal 0.0-0.2 [facility] Comment on above: Performed By: #### E GFR #### [address] [address] Basophils/100 WBC (Bld) 0.1 % Normal 0.0-1.2 [facility] Comment on above: Performed By: #### E GFR #### [address] [address] Eos Absolute 0.0 x10*3/mcL Normal 0.0-0.4 [facility] Comment on above: Performed By: #### E GFR #### [address] [address] Eosinophils/100 WBC (Bld) 0.0 % Normal 0.0-6.1 [facility] Comment on above: Performed By: #### E GFR #### [address] [address] Lymph Absolute 1.6 x10*3/mcL Normal 1.0-4.8 [facility] Comment on above: Performed By: #### E GFR #### [address] [address] Lymphocytes/100 WBC (Bld) 10.9 % Low 27.2-40.8 [facility] Comment on above: Performed By: #### E GFR #### [address] [address] Glasscock Absolute 0.9 x10*3/mcL Normal 0.3-1.1 [facility] Comment on above: Performed By: #### E GFR #### [address] [address] Monocytes/100 WBC (Bld) 6.2 % Normal 4.7-13.9 [facility] Comment on above: Performed By: #### E GFR #### [address] [address] Neutro Absolute 12.4 x10*3/mcL High 1.8-7.7 [facility] Comment on above: Performed By: #### E GFR #### [address] [address] Neutro Auto 82.8 % High 47.2-70.8 [facility] Comment on above: Performed By: #### E GFR #### [facility] [address] [facility] [place] [address] Orthopedic Progress Noteon 0 10-01-2023 Orthopedic Progress [...] Graf MD, Jr 10/01/23 11:46 EDT Normal [facility] Operative Reporton Operative Report Preoperative Diagnosis 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 Postoperative Diagnosis 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 Operation L5-S1 right HW removal, L5-S1 revision right decompression and revision fusion Surgeon(s) St Keri PLEITEZ, Diaz Mercer (Surgeon - Primary) Executive Search Consultant Qamar Recio PA-C (Buyer Tobacco Head) Anesthesia General Trevor PLEITEZ, Zuleima Maier (Food Safety Officer) Kurt Nieves (Provider) Estimated Blood Loss 150 mL Urine Output 800.0 mL Findings loose screws Specimen(s) none Complications none Catheters, Drains, Tubes Device: Rodney Tray 16FR Latex Free [id number] Electronically signed by Qamar Recio PA-C 09/30/23 12:16 EDT Normal [facility] XR Spine Lumbosacral 1 View in ORon [...] Electronically Signed in Other Vendor System) Normal [facility] XR Chest 2 Viewson XR Chest 2 [...] Electronically Signed in Other Vendor System) Normal [facility] .eGFRon 09-10-2023 GFR/1.73 sq M.predicted MDRD (S/P/Bld) [Vol rate/Area] mL/min/{1.73_m2} Normal >=60 [facility] Comment on above: Result Comment: [facility] Laboratories have implemented the eGFR calculation [...] years Performed By: #### E GFR #### [facility] [address] [place] [address] ABO/Rhon 09-10-2023 ABO/Rh SD 09/30/23 ABO/Rh: A POS Normal [facility] Comment on above: Performed By: #### A ABRIL #### [facility] (DEFAULT) [address] [place] [address] [facility] (UNKNOWN) [address] [place] [address] ABSC Autoon 09-10-2023 ABSC Auto Negative Normal [facility] Comment on above: Performed By: #### A SA #### [facility] (UNKNOWN) [address] [place] [address] Basic Metabolic Profileon Anion gap [Moles/Vol] 8 mmol/L Normal 4-12 [facility] Comment on above: Performed By: #### C D:[id number] #### [facility] [address] [place] [address] Calcium [Mass/Vol] 10.3 mg/dL Normal 8.5-10.3 [facility] Comment on above: Performed By: #### C D:[id number] #### [facility] [address] [place] [address] Chloride [Moles/Vol] 101 mmol/L Normal 98-110 [facility] Comment on above: Performed By: #### C D:[id number] #### [facility] [address] [place] [address] CO2 [Moles/Vol] 31 mmol/L Normal 22-32 [facility] Comment on above: Performed By: #### C D:[id number] #### [address] [address] Creatinine [Mass/Vol] 1.05 mg/dL Normal 0.61-1.24 [facility] Comment on above: Performed By: #### C D:[id number] #### [address] [address] Glucose [Mass/Vol] 94 mg/dL Normal 70-99 [facility] Comment on above: Performed By: #### C D:[id number] #### [address] [address] Potassium [Moles/Vol] 4.0 mmol/L Normal 3.4-4.8 [facility] Comment on above: Performed By: #### C D:[id number] #### [address] [address] Sodium [Moles/Vol] 140 mmol/L Normal 133-142 [facility] Comment on above: Performed By: #### C D:[id number] #### [address] [address] Urea nitrogen [Mass/Vol] 13 mg/dL Normal 8-26 [facility] Comment on above: Performed By: #### C D:[id number] #### [address] [address] Urea nitrogen/Creatinine [Mass ratio] 12.4 mg/mg Normal 10.0-20.0 [facility] Comment on above: Performed By: #### C D:[id number] #### [address] [address] CBCon 09-10-2023 Erythrocyte distribution width (RBC) [Ratio] 14.1 % Normal 11.6-14.8 [facility] Comment on above: Performed By: #### C D:[id number] #### [address] [address] Hematocrit (Bld) [Volume fraction] 46.6 % Normal 41.0-53.0 [facility] Comment on above: Performed By: #### C D:[id number] #### [address] [address] Hemoglobin (Bld) [Mass/Vol] 15.5 g/dL Normal 13.5-17.5 [facility] Comment on above: Performed By: #### C D:[id number] #### [address] [address] MCH (RBC) [Entitic mass] 30.9 pg Normal 27.0-35.0 [facility] Comment on above: Performed By: #### C D:[id number] #### [place] [address] MCHC 33.3 % Normal 31.0-37.0 [facility] Comment on above: Performed By: #### C D:[id number] #### [place] [address] MCV (RBC) [Entitic vol] 92.9 fL Normal 80.0-100.0 B [facility] Comment on above: Performed By: #### C D:[id number] #### [place] [address]40 Platelet 191 x10*3/mcL Normal 150-450 [facility] Comment on above: Performed By: #### C D:[id number] #### [address] [address] Platelet mean volume (Bld) [Entitic vol] 11.3 fL High 6.7-10.6 [facility] Comment on above: Performed By: #### C D:[id number] #### [address] [address] RBC 5.02 x10*6/mcL Normal 4.30-5.80 [facility] Comment on above: Performed By: #### C D:[id number] #### [address] [address] WBC 8.2 x10*3/mcL Normal 4.5-11.0 [facility] Comment on above: Performed By: #### C D:[id number] #### [address] [address] MRSA, PCRon 09-10-2023 LAB ONLY Result Called? No Normal B [facility] Comment on above: Performed By: #### E GFR #### [place] [id number] Methicillin Resistant Staph aurus(MRSA) Not detected Normal Not Detected [facility] Comment on above: Result Comment: Mut ations or polymorphisms in primer or probe binding regions may affect detection of new or unknown MRSA variants resulting in a false negative. The [employer] Xpert MRSA Assay is a qualitative in [...] Performed By: #### E GFR #### [address] [address] PTon 09-10-2023 INR Coag (PPP) [Relative time] 0.9 {INR} Normal <=3.5 [facility] Comment on above: Result Comment: INR has no normal range. INR Therapeutic range is: 2.0-3.0 (AF, CVA, TIAs, DVT prophylaxis, acute DVT) 2.5-3.5 (Mech heart valves, recurrent thrombosis/emboli) Performed By: #### P TINR #### [place] [id number] PT Coag (PPP) [Time] 9.8 s Normal 9.2-12.0 [facility] Comment on above: Performed By: #### P TINR #### [facility] [address] [place] [address] PTTon 09-10-2023 aPTT Coag (Bld) [Time] 22.0 s Normal 19.5-28.2 [facility] Comment on above: Performed By: #### C D:[id number] #### [facility] [address] [place] [address] Amylaseon 07-15-2022 Amylase [Catalytic activity/Vol] 43 U/L Normal 29-103 [facility] Comment on above: Order Comment: Reaso n for Exam Generalized abdominal pain;Slow transit constipation;Medicat Reason for Exam Generalized abdominal pain;Medication monitoring encounter NOT FASTING. JKW Performed By: #### C BC, POOJA, LIPASE #### [facility] [address] Amylase 43 U/L Normal 29-103 U/L [employer] Other Amylase [Enzymatic activity/ volume] in Serum or PlasmaOrdered By: Maribeth Vuong on 07-15-2022 Amylase [Catalytic activity/Vol] 43 U/L 29-103 [facility] Basophils Auto (Bld) [#/Vol] Ordered By: Maribeth Vuong on 07-15-2022 Basophils (Bld) [#/Vol] 0.0 10*3/uL 0.0-0.2 [facility] Basophils/100 WBC Auto (Bld) Ordered By: Maribeth Vuong on 07-15-2022 Basophils/100 WBC (Bld) 0.5 % . [facility] CBC W MANUAL DIFFon 07-16-19 23 ATYPICAL LYMPH # Normal [facility] Comment on above: Performed By: #### C JEAN ####[facility] [address] [place], [place] [address]MfIbrahima Keymera David ATYPICAL LYMPH % Normal [facility] Comment on above: Performed By: #### C JEAN ####[facility] [address] [place] [id number]. Yilan David BAND # 0.1 103/ul Normal 0.0-0.3 [facility] Comment on above: Performed By: #### C JEAN ####[facility] [address] [place] [address]Dr. Yilan David BAND % 1 % Normal 0-5 [facility] Comment on above: Performed By: #### C JEAN ####[facility] [address] [place] [address]Dr. Yimera David BASOM # 0.00 103/ul Normal 0.00-0.10 [facility] Comment on above: Performed By: #### C JEAN ####[facility] [address] [place], [place] [address]Dr. Sydney David BASOM % 0.0 % Critically low 0.2-2.0 [facility] Comment on above: Performed By: #### C JEAN ####[facility] [address] [place], [place] [address]Dr. Yilan David BLAST # Normal [facility] Comment on above: Performed By: #### C JEAN ####[facility] [address] [place], [place] [address]Dr. Yilan David BLAST % Normal [facility] Comment on above: Performed By: #### C JEAN ####[facility] [address] [place] [address]Dr. Sydney David CORRECTED WBC Normal 4.0-11.0 [facility] Comment on above: Performed By: #### C JEAN ####[facility] [address] [place] [address]Dr. Yimera David EOS # 0.24 103/ul Normal 0.00-0.70 [facility] Comment on above: Performed By: #### C JENA ####[facility] [address] [place], [place] [address]Dr. Yimera David EOS% 3.0 % Normal 0.9-7.0 [facility] Comment on above: Performed By: #### C JEAN ####[facility] [address] [place], [place] [address]Im. Sydney David HCT 46.4 % Normal 42.0-54.0 [facility] Comment on above: Performed By: #### C JEAN ####[facility] [address] [place], [place] [address]Wz. Sydney David HGB 15.4 g/dl Normal 14.0-18.0 [facility] Comment on above: Performed By: #### C JEAN ####[facility] [address] [place], [place] [address]Ef. Sydney David LYMPHM # 3.36 103/ul Normal 1.20-3.80 [facility] Comment on above: Performed By: #### C JEAN ####[facility] [address] [place] [id number]. Sydney David LYMPHM% 42.0 % Normal 20.5-60.0 [facility] Comment on above: Performed By: #### C JEAN ####[facility] [address] [place] [place] [id number]. Sydney David MCH 30.3 pg Normal 25.9-34.0 [facility] Comment on above: Performed By: #### C JEAN ####[facility] Xividyzkym[address] [place] [id number]. Sydney David MCHC 33.2 g/dl Normal 29.9-35.2 [facility] Comment on above: Performed By: #### C JEAN ####[facility] O[address]mktbbgz54[address] [place], [place] [address]Up. Sydney David MCV 91.3 fL Normal 80.0-94.0 [facility] Comment on above: Performed By: #### C JEAN ####[facility] Kkvcmf[address]ex[address] [place] [id number]. Sydney David METAMYELOCYTE # Normal [facility] Comment on above: Performed By: #### C JEAN ####[facility] V[address]ksmnyxv[address] [place] [id number]. Yilan David METAMYELOCYTE % Normal [facility] Comment on above: Performed By: #### C BCMAN ####[facility] [address] [place], [place] [address]Gc. Sydney David MONOM# 0.80 103/ul Normal 0.30-0.80 [facility] Comment on above: Performed By: #### C BCMAN ####[facility] Gmcc[address] [place], [place] [address]Xp. Sydney David MONOM% 10.0 % Normal 1.7-12.0 [facility] Comment on above: Performed By: #### C BCDOLORES ####[facility] Luxajzwthq[address] [place] [id number]. Sydney David MPV 11.8 fL Normal 9.5-13.5 [facility] Comment on above: Performed By: #### C JEAN ####[facility] P[address]cst[address] [place] [id number]. Sydney David MYELOCYTE # Normal [facility] Comment on above: Performed By: #### C JEAN ####[facility] [address]eb[address] [place], [place] [address]Iu. Sydney David MYELOCYTE % Normal [facility] Comment on above: Performed By: #### C BCDOLORES ####[facility] Idnzzniapg9451 [place], [place] [address]Bc. Sydney David NRBC Normal [facility] Comment on above: Performed By: #### C BCDOLORES ####[facility] Ohbsjqdllm33[address] [place] [id number]. Sydney David PLT 249 103/ul Normal 150-450 [facility] Comment on above: Performed By: #### C BCDOLORES ####[facility] Uxooeozxpy[address] [place] [id number]. Sydney David RBC 5.08 106/ul Normal 4.70-6.10 [facility] Comment on above: Performed By: #### C BCDOLORES ####[facility] Xt[address]jvpevu[address] [place] [id number]. Sydney David RDW 13.1 % Normal 11.0-15.0 [facility] Comment on above: Performed By: #### C JEAN ####[facility] Xvdatwyrzb3614 [place], [place] [address]Pc. Sydney David SEG # 3.52 103/ul Normal 1.40-6.50 [facility] Comment on above: Performed By: #### C BCMAN ####[facility] Olwp[address]bs[address] [place], [place] [address]Tt. Sydney David SEG % 44.0 % Normal 43.0-75.0 [facility] Comment on above: Performed By: #### C BCDOLORES ####[facility] Hpkserkwpj7740 [place], [place] [address]Ty. Sydney David WBC 8.0 103/ul Normal 4.0-11.0 [facility] Comment on above: Performed By: #### C BCDOLORES ####[facility] Rliauutmst33[address] [place], [place] [address]Ws. [address] David [address] ABD/PELV W CONon 07-16-19 [...] EVANGELIST SYLVESTERCONG Date: 2022-07-15 16:53 Normal [facility] Complete Blood Count Auto Di ffon 07-15-2022 Basophils (Bld) [#/Vol] 0.0 10*3/uL Normal 0.0-0.2 [facility] Comment on above: Order Comment: Reaso n for Exam Medication monitoring encounter Result Comment: PERF ORMED BY: [place] [address] PATHOLOGIST FILE CLERK ALEM GARCIA M.D. Performed By: #### C BC, POOJA, LIPASE #### [address] Basophils/100 WBC (Bld) 0.5 % Normal . [facility] Comment on above: Order Comment: Reaso n for Exam Medication monitoring encounter Performed By: #### C BC, POOJA, LIPASE #### [address] Eosinophils (Bld) [#/Vol] 0.6 10*3/uL High 0.0-0.45 [facility] Comment on above: Order Comment: Reaso n for Exam Medication monitoring encounter Performed By: #### C BC, POOJA, LIPASE #### [address] Eosinophils/100 WBC (Bld) 6.1 % Normal . [facility] Comment on above: Order Comment: Reaso n for Exam Medication monitoring encounter Performed By: #### C BC, POOJA, LIPASE #### [address] Erythrocyte distribution width (RBC) [Ratio] 13.6 % Normal 12.0-14.8 [facility] Comment on above: Order Comment: Reaso n for Exam Medication monitoring encounter Performed By: #### C BC, POOJA, LIPASE #### [address] Hematocrit (Bld) [Volume fraction] 47.4 % Normal 38.8-50.0 [facility] Comment on above: Order Comment: Reaso n for Exam Medication monitoring encounter Performed By: #### C BC, POOJA, LIPASE #### [address] Hemoglobin (Bld) [Mass/Vol] 15.5 g/dL Normal 13.0-17.0 [facility] Comment on above: Order Comment: Reaso n for Exam Medication monitoring encounter Performed By: #### C BC, POOJA, LIPASE #### [address] Lymphocytes (Bld) [#/Vol] 4.3 10*3/uL Normal 1.00-4.8 [facility] Comment on above: Order Comment: Reaso n for Exam Medication monitoring encounter Performed By: #### C BC, POOJA, LIPASE #### [address] Lymphocytes/100 WBC (Bld) 46.5 % Normal . [facility] Comment on above: Order Comment: Reaso n for Exam Medication monitoring encounter Performed By: #### C BC, POOJA, LIPASE #### [address] MCH (RBC) [Entitic mass] 30.2 pg Normal 27.5-35.2 [facility] Comment on above: Order Comment: Reaso n for Exam Medication monitoring encounter Performed By: #### C BC, POOJA, LIPASE #### [address] MCV (RBC) [Entitic vol] 92.3 fL Normal 83.5-101 [facility] Comment on above: Order Comment: Reaso n for Exam Medication monitoring encounter Performed By: #### C BC, POOJA, LIPASE #### [address] Mean Corpuscular HGB Conc 32.7 g/dL Normal 32.5-35.6 [facility] Comment on above: Order Comment: Reaso n for Exam Medication monitoring encounter Performed By: #### C BC, POOJA, LIPASE #### [address] Monocytes (Bld) [#/Vol] 0.8 10*3/uL Normal 0.0-0.8 [facility] Comment on above: Order Comment: Reaso n for Exam Medication monitoring encounter Performed By: #### C BC, POOJA, LIPASE #### [facility] [address] Monocytes/100 WBC (Bld) 8.3 % Normal . [facility] Comment on above: Order Comment: Reaso n for Exam Medication monitoring encounter Performed By: #### C BC, POOJA, LIPASE #### [facility] [address] Neutrophils (Bld) [#/Vol] 3.6 10*3/uL Normal 1.8-7.7 [facility] Comment on above: Order Comment: Reaso n for Exam Medication monitoring encounter Performed By: #### C BC, POOJA, LIPASE #### [address] Neutrophils/100 WBC (Bld) 38.6 % Normal . [facility] Comment on above: Order Comment: Reaso n for Exam Medication monitoring encounter Performed By: #### C BC, POOJA, LIPASE #### [facility] [address] [place] [address] NRBC% 0.0 /100{WBC} Normal 0-0.5 [facility] Comment on above: Order Comment: Reaso n for Exam Medication monitoring encounter Performed By: #### C BC, POOJA, LIPASE #### [facility] [address] [place] [address] [place] Platelet mean volume (Bld) [Entitic vol] 11.1 fL High 6.6-10.1 [facility] Comment on above: Order Comment: Reaso n for Exam Medication monitoring encounter Performed By: #### C BC, POOJA, LIPASE #### [facility] [address] [place] [address] [place] WBC (Bld) [#/Vol] 9.2 10*3/uL Normal 4.1-10.5 [facility] Comment on above: Order Comment: Reaso n for Exam Medication monitoring encounter Performed By: #### C BC, POOJA, LIPASE #### [facility] [address] Basophils (Bld) [#/Vol] 0.493964541 10*3/uL Normal 0.0-0.2 10*3/uL [employer] Other Basophils/100 WBC (Bld) 0.500 % . % [facility] [email or web address] Other Eosinophils (Bld) [#/Vol] 0.297813260 10*3/uL High 0.0-0.45 10*3/uL [employer] Other Eosinophils/100 WBC (Bld) 6.100 % . % [employer] Other Erythrocyte distribution width (RBC) [Ratio] 13.600 % Normal 12.0-14.8 % [employer] Other Hematocrit (Bld) [Volume fraction] 47.400 % Normal 38.8-50.0 % [employer] Other Hemoglobin (Bld) [Mass/Vol] 15.903124 g/dL Normal 13.0-17.0 g/dL [employer] Other Lymphocytes (Bld) [#/Vol] 4.348060654 10*3/uL Normal 1.00-4.8 10*3/uL [employer] Other Lymphocytes/100 WBC (Bld) 46.500 % . % [employer] Other MCH (RBC) [Entitic mass] 30.2000 pg Normal 27.5-35.2 pg [employer] Other MCV (RBC) [Entitic vol] 92.3000 fL Normal 83.5-101 fL [employer] Other Monocytes (Bld) [#/Vol] 0.352170151 10*3/uL Normal 0.0-0.8 10*3/uL [employer] Other Monocytes/100 WBC (Bld) 8.300 % . % [facility] [email or web address] Other Neutrophils (Bld) [#/Vol] 3.742552297 10*3/uL Normal 1.8-7.7 10*3/uL [employer] Other Neutrophils/100 WBC (Bld) 38.600 % . % [employer] Other Platelet mean volume (Bld) [Entitic vol] 11.1000 fL High 6.6-10.1 fL [employer] Other WBC (Bld) [#/Vol] 9.553242451 10*3/uL Normal 4.1 -10.5 10*3/uL [employer] Other Complete Blood Count Auto Diff 9.2 10*3/uL Normal 4.1-10.5 10*3/uL [employer] Other Complete Blood Count Auto Diff 32.7 g/dL Normal 32.5-35.6 g/dL [employer] Other Complete Blood Count Auto Diff 0.0 /100{WBC} Normal 0-0.5 /100{WBC} [employer] Other Complete Blood Count Auto Di ffOrdered By: Maribeth Vuong on 07-15-2022 Platelets (Bld) [#/Vol] 236 10*3/uL Normal 150-450 [facility] Comment on above: Order Comment: Reaso n for Exam Medication monitoring encounter Performed By: #### C BC, POOJA, LIPASE #### [facility] [address] RBC (Bld) [#/Vol] 5.13 10*6/uL Normal 3.90-5.60 [facility] Comment on above: Order Comment: Reaso n for Exam Medication monitoring encounter Performed By: #### C BC, POOJA, LIPASE #### [facility] [address] [place] [id number] [facility] ER URINE PROFILEon 3 Bilirubin Ql (U) Negative Normal NEGATIVE [facility] Comment on above: Performed By: #### E RUR ####[facility] V[address] [place], [place] [address]Dr. Keymera David Clarity (U) CLEAR Normal CLEAR [facility] Comment on above: Performed By: #### E RUR ####[facility] Yxzggxmqse[address] [place], [place] [address]Dr. Sydney David Color (U) LT. YELLOW Normal YELLOW [facility] Comment on above: Performed By: #### E RUR ####[facility] Bqfx[address] [place], [place] [address]Dr. Sydney David ERUAHD A micrscopic examination will be performed if indicated. Normal [facility] Comment on above: Performed By: #### E RUR ####[facility] [address] [place], [place] [address]Dr. Sydney David Glucose Ql (U) Negative Normal NEGATIVE [facility] Comment on above: Performed By: #### E RUR ####[facility] Fr[address]lx[address]vsw[address] [place], [place] [address]Dr. Keymera David Hemoglobin Ql (U) Negative Normal NEGATIVE [facility] Comment on above: Performed By: #### E RUR ####[facility] [address] [place], [place] [address]Dr. Sydney David Ketones Ql (U) Negative Normal NEGATIVE [facility] Comment on above: Performed By: #### E RUR ####[facility] [address] [place], [place] [address]Dr. Keymera David LEUKOCYTES Negative Normal NEGATIVE [facility] Comment on above: Performed By: #### E RUR ####[facility] [address] [place], [place] [address]Dr. Sydney David Nitrite Ql (U) Negative Normal NEGATIVE [facility] Comment on above: Performed By: #### E RUR ####[facility] [address] [place], [place] [address]Dr. Sydney David pH (U) 5.5 [pH] Normal 5-9 [facility] Comment on above: Performed By: #### E RUR ####[facility] [address]tx[address] [place] [address]Dr. Sydney David SPEC GRAVITY 1.010 Normal 1.005-<=1.[address] [place] [address] Comment on above: Performed By: #### E RUR ####[facility] [address]wf[address] [place] [address]Dr. Sydney Frankie UA PROTEIN Negative Normal NEGATIVE/ TRACE [facility] Comment on above: Performed By: #### E RUR ####[facility] [address] [place] [address]Dr. Sydney David UR MICRO IND NOT INDICATED Normal [facility] Comment on above: Performed By: #### E RUR ####[facility] [address]xt[address] [place] [address]Dr. Sydney David Urobilinogen Qn (U) 0.2 {Johan'U}/dL Normal 0.2 - 1. 0 [facility] Comment on above: Performed By: #### E RUR ####[facility] [address]zrki64[address] [place] [address]Dr. Sydney David Eosinophils Auto (Bld) [#/Vo l]Ordered By: Mraibeth Vuong on 07-15-2022 Eosinophils (Bld) [#/Vol] 0.6 10*3/uL 0.0-0.45 [facility] Eosinophils/100 WBC Auto (Bl d)Ordered By: Maribeth Vuong on 07-15-2022 Eosinophils/100 WBC (Bld) 6.1 % . [facility] Erythrocyte distribution wid th Auto (RBC) [Ratio]Ordered By: Maribeth Vuong on 07-15-2022 Erythrocyte distribution width (RBC) [Ratio] 13.6 % 12.0-14.8 [facility] Hematocrit Auto (Bld) [Volum e fraction]Ordered By: Maribeth Vuong on 07-15-2022 Hematocrit (Bld) [Volume fraction] 47.4 % 38.8-50.0 [facility] Hemoglobin [Mass/volume] in BloodOrdered By: Maribeth Vuong on 04-10-2023 Hemoglobin (Bld) [Mass/Vol] 15.5 g/dL 13.0-17.0 [facility] Leukocytes [#/volume] correc gris for nucleated erythrocytes in Blood by Automated counOrdered By: Maribeth Vuong on 07-15-2022 WBC corrected for nucl RBC Auto (Bld) [#/Vol] 9.2 10*3/uL 4.1-10.5 [facility] Lipaseon 07-15-2022 Lipase [Catalytic activity/Vol] 80.0 U/L Normal 11.0-82.0 [facility] Comment on above: Order Comment: Reaso n for Exam Generalized abdominal pain;Slow transit constipation;Medicat Reason for Exam Generalized abdominal pain;Medication monitoring encounter NOT FASTING. JKW Result Comment: PERF ORMED BY: [place] [address] PATHOLOGIST FILE CLERK ALEM GARCIA M.D. Performed By: #### C BC, POOJA, LIPASE #### [address] Lipase [Catalytic activity/Vol] 80.79180 U/L Normal 11.0-82.0 U/L [employer] Other Lipase [Enzymatic activity/v olume] in Serum or PlasmaOrdered By: Maribeth Vuong on 07-15-2022 Lipase [Catalytic activity/Vol] 80.0 U/L 11.0-82.0 [facility] Lymphocytes Auto (Bld) [#/Vo l]Ordered By: Maribeth Vuong on 07-15-2022 Lymphocytes (Bld) [#/Vol] 4.3 10*3/uL 1.00-4.8 [facility] Lymphocytes/100 WBC Auto (Bl d)Ordered By: Maribeth Vuong on 07-15-2022 Lymphocytes/100 WBC (Bld) 46.5 % . [facility] MCH Auto (RBC) [Entitic mass ]Ordered By: Maribeth Vuong on 07-15-2022 MCH (RBC) [Entitic mass] 30.2 pg 27.5-35.2 [facility] MCHC Auto (RBC) [Mass/Vol]Or dered By: Maribeth Vuong on 07-15-2022 MCHC (RBC) [Mass/Vol] 32.7 g/dL 32.5-35.6 [facility] MCV Auto (RBC) [Entitic vol] Ordered By: Maribeth Vuong on 07-15-2022 MCV (RBC) [Entitic vol] 92.3 fL 83.5-101 [facility] Monocytes Auto (Bld) [#/Vol] Ordered By: Maribeth Vuong on 07-15-2022 Monocytes (Bld) [#/Vol] 0.8 10*3/uL 0.0-0.8 [facility] Monocytes/100 WBC Auto (Bld) Ordered By: Maribeth Vuong on 07-15-2022 Monocytes/100 WBC (Bld) 8.3 % . [facility] Neutrophils Auto (Bld) [#/Vo l]Ordered By: Maribeth Vuong on 07-15-2022 Neutrophils (Bld) [#/Vol] 3.6 10*3/uL 1.8-7.7 [facility] Neutrophils/100 WBC Auto (Bl d)Ordered By: Maribeth Vuong on 07-15-2022 Neutrophils/100 WBC (Bld) 38.6 % . [facility] Nucleated erythrocytes [Pres ence] in Blood by Automated countOrdered By: Maribeth Vuong on 07-15-2022 Nucleated RBC Auto Ql (Bld) 0.0 /100{WBC} 0-0.5 [facility] PROF CHEM 8 (BAS METB)on Anion gap [Moles/Vol] 13.3 mmol/L Normal [facility] Comment on above: Performed By: #### B MP #### [facility] [address] [place] [address] [address] Sydney David Calcium [Mass/Vol] 9.1 mg/dL Normal 8.5-10.1 [facility] Comment on above: Performed By: #### B MP #### [facility] [address] [place] [address] [address] Sydney David Chloride [Moles/Vol] 102 mmol/L Normal 98-107 [facility] Comment on above: Performed By: #### B MP #### [facility] [address] [place] [address] [address] Sydney David CO2 [Moles/Vol] 27.2 mmol/L Normal 21.0-32.0 [facility] Comment on above: Performed By: #### B MP #### [facility] [address] [place] [address] [address] Sydney David Creatinine [Mass/Vol] 1.08 mg/dL Normal 0.70-1.30 [facility] Comment on above: Performed By: #### B MP #### [facility] [address] [place] [address] [address] Sydney David EGFR-AF TANZANIAN >60 Normal >=60 [facility] Comment on above: Performed By: #### B MP #### [facility] [address] [place] [address] Dr. Sydney David EGFR-NON AF TANZANIAN >60 Normal >=60 [facility] Comment on above: Performed By: #### B MP #### [facility] [address] [place] [address] [address] Sydney David Glucose [Mass/Vol] 116 mg/dL Critically high 74-106 [facility] Comment on above: Performed By: #### B MP #### [facility] [address] [place] [address] Dr. Sydney David Potassium [Moles/Vol] 3.5 mmol/L Normal 3.5-5.1 [facility] Comment on above: Performed By: #### B MP #### [facility] [address] [place] [address] [address] Sydney David Sodium [Moles/Vol] 139 mmol/L Normal 136-145 [facility] Comment on above: Performed By: #### B MP #### [facility] [address] [place] [address] [address] Sydney David Urea nitrogen [Mass/Vol] 12.0 mg/dL Normal 7.0-18.0 [facility] Comment on above: Performed By: #### B MP #### [facility] [address] [place] [address] [address] Sydney David Urea nitrogen/Creatinine [Mass ratio] 11.1 mg/mg Normal [facility] Comment on above: Performed By: #### B MP #### [facility] [address] [place] [address] [address] Sydney David Platelet mean volume Auto (B ld) [Entitic vol]Ordered By: Maribeth Vuong on 07-15-2022 Platelet mean volume (Bld) [Entitic vol] 11.1 fL 6.6-10.1 [facility] WBC Auto (Bld) [#/Vol]Ordere d By: Maribeth Vuong on 07-15-2022 WBC (Bld) [#/Vol] 9.2 10*3/uL 4.1-10.5 [facility] XR KUBon 07-15-2022 XR KUB [facility] [place] [address] XRay Report Signed Patient: Neal Parker MR#: [id number] : 1980 Acct:[id number] Age/Sex: 41 / M ADM Date: 07/15/22 Loc: [facility] Room: Type: [facility] Attending Dr: Maribeth Vuong DO Copies [...] Greer Jr., D.O.07/15/2022 4:05 PM Dictation Location: [place] [address] Transcribed By: [facility] 07/15/22 1600 Dictated By: Sonny Greer Jr, DO 07/15/22 1604 Signed By: 07/15/22 1605 Normal [facility] Alanine aminotransferase [En zymatic activity/volume] in Serum or PlasmaOrdered By: Maribeth Vuong on 07-12-2022 ALT [Catalytic activity/Vol] 68 U/L 7-52 [facility] Albumin [Mass/volume] in Ser um or Plasma by Bromocresol green (BCG) dye binding methoOrdered By: Maribeth Vuong on 07-12-2022 Albumin BCG dye [Mass/Vol] 4.7 g/dL 3.5-5.7 [facility] Alkaline phosphatase [Enzyma tic activity/volume] in Serum or PlasmaOrdered By: Maribeth Vuong on 07-12-2022 ALP [Catalytic activity/Vol] 33 U/L 34-104 [facility] Aspartate aminotransferase [ Enzymatic activity/volume] in Serum or PlasmaOrdered By: Maribeth Vuong on 07-12-2022 AST [Catalytic activity/Vol] 29 U/L 13-39 [facility] Bilirubin.total [Mass/volume ] in Serum or PlasmaOrdered By: Maribeth Vuong on 07-12-2022 Bilirubin [Mass/Vol] 0.6 mg/dL 0.3-1.0 [facility] Calcium [Mass/volume] in Ser um or PlasmaOrdered By: Maribeth Vuong on 07-12-2022 Calcium [Mass/Vol] 10.1 mg/dL 8.6-10.3 [facility] Carbon dioxide, total [Moles /volume] in Serum or PlasmaOrdered By: aMribeth Vuong on 07-12-2022 CO2 [Moles/Vol] 27.5 mmol/L 21.0-31.0 [facility] Chloride [Moles/volume] in S flash or PlasmaOrdered By: Maribeth Vuong on 07-12-2022 Chloride [Moles/Vol] 106 mmol/L 98-107 [facility] Cholesterol [Mass/volume] in Serum or PlasmaOrdered By: Maribeth Vuong on 07-12-2022 Cholesterol [Mass/Vol] 296 mg/dL 140-200 [facility] Comment on above: Chol less than 200 m g/dl low riskChol 201-239 mg/dl borderline riskChol 240 mg/dl and greater high risk Cholesterol in LDL Calc [Mas s/Vol]Ordered By: Maribeth Vuong on 07-12-2022 Cholesterol in LDL [Mass/Vol] 206 mg/dL 0-100 [facility] Comment on above: LDL ATP III CLASSIFI CATIONLDL less than 100 mg/dL OptimalLDL 100-129 mg/dL Near or above optimalLDL 130-159 mg/dL Borderline highLDL 160-189 mg/dL HighLDL greater than 189 mg/dL Very high Cholesterol in VLDL Calc [Ma ss/Vol]Ordered By: Maribeth Vuong on 07-12-2022 Cholesterol in VLDL [Mass/Vol] 53 mg/dL [facility] Comprehensive Metabolic Pane jenni 07-12-2022 Albumin [Mass/Vol] 4.7 g/dL Normal 3.5-5.7 [facility] Comment on above: Order Comment: PT FA STED 12 HOURS Reason for Exam Well adult exam;Lipid disorder;Medication monitoring encount Reason for Exam Lipid disorder Performed By: #### L IPID, PSAS W RFX, CMP #### [facility] [address] Albumin/Globulin [Mass ratio] 1.8 {ratio} Normal [facility] Comment on above: Order Comment: PT FA STED 12 HOURS Reason for Exam Well adult exam;Lipid disorder;Medication monitoring encount Reason for Exam Lipid disorder Performed By: #### L IPID, PSAS W RFX, CMP #### [facility] [address] [place] [address] [place] ALP [Catalytic activity/Vol] 33 U/L Low 34-104 [facility] Comment on above: Order Comment: PT FA STED 12 HOURS Reason for Exam Well adult exam;Lipid disorder;Medication monitoring encount Reason for Exam Lipid disorder Performed By: #### L IPID, PSAS W RFX, CMP #### [facility] [address] [place] [address] [place] ALT [Catalytic activity/Vol] 68 U/L High 7-52 [facility] Comment on above: Order Comment: PT FA STED 12 HOURS Reason for Exam Well adult exam;Lipid disorder;Medication monitoring encount Reason for Exam Lipid disorder Performed By: #### L IPID, PSAS W RFX, CMP #### [facility] [address] [place] [address] [place] Anion gap [Moles/Vol] 11.8 mmol/L Normal 6.0-15.0 [facility] Comment on above: Order Comment: PT FA STED 12 HOURS Reason for Exam Well adult exam;Lipid disorder;Medication monitoring encount Reason for Exam Lipid disorder Performed By: #### L IPID, PSAS W RFX, CMP #### [facility] [address] AST [Catalytic activity/Vol] 29 U/L Normal 13-39 [facility] Comment on above: Order Comment: PT FA STED 12 HOURS Reason for Exam Well adult exam;Lipid disorder;Medication monitoring encount Reason for Exam Lipid disorder Performed By: #### L IPDANNIELLE, PSAS W RFX, CMP #### [facility] [address] Bilirubin [Mass/Vol] 0.6 mg/dL Normal 0.3-1.0 [facility] Comment on above: Order Comment: PT FA STED 12 HOURS Reason for Exam Well adult exam;Lipid disorder;Medication monitoring encount Reason for Exam Lipid disorder Performed By: #### L IPID, PSAS W RFX, CMP #### [facility] [address] [place] [address] [place] Calcium [Mass/Vol] 10.1 mg/dL Normal 8.6-10.3 [facility] Comment on above: Order Comment: PT FA STED 12 HOURS Reason for Exam Well adult exam;Lipid disorder;Medication monitoring encount Reason for Exam Lipid disorder Performed By: #### L IPID, PSAS W RFX, CMP #### [facility] [address] [place] [address] [place] Chloride [Moles/Vol] 106 mmol/L Normal 98-107 [facility] Comment on above: Order Comment: PT FA STED 12 HOURS Reason for Exam Well adult exam;Lipid disorder;Medication monitoring encount Reason for Exam Lipid disorder Performed By: #### L IPID, PSAS W RFX, CMP #### [facility] [address] [place] [address] [place] CO2 [Moles/Vol] 27.5 mmol/L Normal 21.0-31.0 [facility] Comment on above: Order Comment: PT FA STED 12 HOURS Reason for Exam Well adult exam;Lipid disorder;Medication monitoring encount Reason for Exam Lipid disorder Performed By: #### L SOLOMON PSAS W RFX, CMP #### [facility] [address] Creatinine [Mass/Vol] 0.96 mg/dL Normal 0.70-1.30 [facility] Comment on above: Order Comment: PT FA STED 12 HOURS Reason for Exam Well adult exam;Lipid disorder;Medication monitoring encount Reason for Exam Lipid disorder Performed By: #### L IPDANNIELLE PSAS W RFX, CMP #### [facility] [address] [place] [address] GFR/1.73 sq M.predicted MDRD (S/P/Bld) [Vol rate/Area] mL/min/{1.73_m2} [facility] Comment on above: Order Comment: PT FA STED 12 HOURS Reason for Exam Well adult exam;Lipid disorder;Medication monitoring encount Reason for Exam Lipid disorder Performed By: #### L SOLOMON, PSAS W RFX, CMP #### [facility] [address] [place] [address] Globulin (S) [Mass/Vol] 2.6 g/dL Normal [facility] Comment on above: Order Comment: PT FA STED 12 HOURS Reason for Exam Well adult exam;Lipid disorder;Medication monitoring encount Reason for Exam Lipid disorder Performed By: #### L IPDANNIELLE PSAS W RFX, CMP #### [facility] [address] [place] [address] Glucose [Mass/Vol] 106 mg/dL High 70-100 [facility] Comment on above: Order Comment: PT FA STED 12 HOURS Reason for Exam Well adult exam;Lipid disorder;Medication monitoring encount Reason for Exam Lipid disorder Result Comment: [facility] Glucose Reference Range is dependent on time and content of last meal. Glucose of more than 200 mg/dL in a nonstressed, ambulatory subject supports the diagnosis of Diabetes Mellitus. ADA recommended reference range Performed By: #### L IPID, PSAS W RFX, CMP #### [facility] [address] [place] [address] Potassium [Moles/Vol] 4.3 mmol/L Normal 3.5-5.1 [facility] Comment on above: Order Comment: PT FA STED 12 HOURS Reason for Exam Well adult exam;Lipid disorder;Medication monitoring encount Reason for Exam Lipid disorder Performed By: #### L IPID, PSAS W RFX, CMP #### [facility] [address] [place] [address] Protein [Mass/Vol] 7.3 g/dL Normal 6.4-8.9 [facility] Comment on above: Order Comment: PT FA STED 12 HOURS Reason for Exam Well adult exam;Lipid disorder;Medication monitoring encount Reason for Exam Lipid disorder Performed By: #### L SOLOMON, PSAS W RFX, CMP #### [facility] [address] [place] [address] Sodium [Moles/Vol] 141 mmol/L Normal 136-145 [facility] Comment on above: Order Comment: PT FA STED 12 HOURS Reason for Exam Well adult exam;Lipid disorder;Medication monitoring encount Reason for Exam Lipid disorder Performed By: #### L IPID, PSAS W RFX, CMP #### [facility] [address] [place] [address] Urea nitrogen [Mass/Vol] 12 mg/dL Normal 7-25 [facility] Comment on above: Order Comment: PT FA STED 12 HOURS Reason for Exam Well adult exam;Lipid disorder;Medication monitoring encount Reason for Exam Lipid disorder Performed By: #### L IPID, PSAS W RFX, CMP #### [facility] [address] [place] [address] [place] Creatinine [Mass/volume] in Serum or PlasmaOrdered By: Maribeth Vuong on 07-12-2022 Creatinine [Mass/Vol] 0.96 mg/dL 0.70-1.30 [facility] Globulin Calc (S) [Mass/Vol] Ordered By: Maribeth Vuong on 07-12-2022 Globulin (S) [Mass/Vol] 2.6 g/dL [facility] Glucose [Mass/volume] in Ser um or PlasmaOrdered By: Maribeth Vuong on 07-12-2022 Glucose [Mass/Vol] 106 mg/dL 70-100 [facility] Comment on above: ADA recommended refe rence rangeRandom Glucose Reference Range is dependent on time and content of last meal. Glucose of more than 200 mg/dL in a nonstressed, ambulatory subject supports the diagnosis of Diabetes Mellitus. Lipid Panelon 07-12-2022 Cholesterol [Mass/Vol] 296 mg/dL High 140-200 [facility] Comment on above: Order Comment: PT FA STED 12 HOURS Reason for Exam Well adult exam;Lipid disorder;Medication monitoring encount Reason for Exam Lipid disorder Result Comment: Chol less than 200 mg/dl low risk Chol 201-239 mg/dl borderline risk Chol 240 mg/dl and greater high risk Performed By: #### L IPID, PSAS W RFX, CMP #### [facility] [address] Cholesterol in HDL [Mass/Vol] 37 mg/dL Normal 29-71 [facility] Comment on above: Order Comment: PT FA STED 12 HOURS Reason for Exam Well adult exam;Lipid disorder;Medication monitoring encount Reason for Exam Lipid disorder Result Comment: HDL CHOL ATP-III CLASSIFICATION Cardiovascular Risk HDL > or equal to 60 mg/dL LOW HDL < 40 mg/dL HIGH Performed By: #### L IPID, PSAS W RFX, CMP #### [facility] [address] [place] [address] [place] Cholesterol.total/Patti sterol in HDL [Mass ratio] 8.0 {ratio} Normal <5.0 [facility] Comment on above: Order Comment: PT FA STED 12 HOURS Reason for Exam Well adult exam;Lipid disorder;Medication monitoring encount Reason for Exam Lipid disorder Result Comment: PERF ORMED BY: [place] [address] PATHOLOGIST FILE CLERK ALEM GARCIA M.D. Performed By: #### L IPID, PSAS W RFX, CMP #### [facility] [address] [place] [address] [place] LDL Cholesterol,Calculated 206 mg/dL High 0-100 [facility] Comment on above: Order Comment: [...] L IPID, PSAS W RFX, CMP #### [facility] [address] Triglyceride w/Reflex 266 mg/dL High 0-149 [facility] Comment on above: Order Comment: PT [...] L IPID, PSAS W RFX, CMP #### [facility] [address] VLDL CHOLESTEROL 53 mg/dL Normal [facility] Comment on above: Order Comment: PT FA STED 12 HOURS Reason for Exam Well adult exam;Lipid disorder;Medication monitoring encount Reason for Exam Lipid disorder Performed By: #### L IPID, PSAS W RFX, CMP #### [facility] [address] [place] [address] No Panel InformationOrdered By: Maribeth Vuong on 07-12-2022 Estimated GFR (CKD-EPI) > 60.0 mL/Min [facility] Creatinine Clearance (Chem N/A [facility] PSA Screen (Yearly) w/Reflex on 07-12-2022 PSA Screen (Yearly) w/Reflex 0.670 ng/mL Normal 0.000-4.000 [facility] Comment on above: Order Comment: Reaso n for Exam Well adult exam;Prostate cancer screening Is patient <50 yrs? Medicare does not pay <50.: Y What is the date of the last PSA Screen?: N/A Is Medicare the insurance?: N Did you verify eligibility (Dx Time) check TestViewGp: YES TO ALL Result Comment: PERF ORMED BY: [facility] [address] [place] [address] PATHOLOGIST FILE CLERK ALEM GARCIA M.D. Performed By: #### L IPID, PSAS W RFX, CMP #### [facility] [address] Potassium [Moles/volume] in Serum or PlasmaOrdered By: Maribeth Vuong on 07-12-2022 Potassium [Moles/Vol] 4.3 mmol/L 3.5-5.1 [facility] Prostate specific Ag [Mass/v olume] in Serum or PlasmaOrdered By: Maribeth Vuong on 07-12-2022 Prostate specific Ag [Mass/Vol] 0.670 ng/mL 0.000-4.000 [facility] Protein [Mass/volume] in Ser um or PlasmaOrdered By: Maribeth Vuong on 07-12-2022 Protein [Mass/Vol] 7.3 g/dL 6.4-8.9 [facility] Serum or plasma albumin/glob ulin mass ratioOrdered By: Maribeth Vuong on 07-12-2022 Albumin/Globulin [Mass ratio] 1.8 {ratio} [facility] Serum or plasma anion gap de terminationOrdered By: Maribeth Vuong on 07-12-2022 Anion gap [Moles/Vol] 11.8 mmol/L 6.0-15.0 [facility] Serum or plasma high density lipoprotein (HDL) cholesterol measurementOrdered By: Maribeth Vuong on 07-12-2022 Cholesterol in HDL [Mass/Vol] 37 mg/dL 29-71 [facility] Comment on above: HDL CHOL ATP-III CLA SSIFICATION Cardiovascular RiskHDL > or equal to 60 mg/dL LOWHDL < 40 mg/dL HIGH Serum or plasma total choles terol/high density lipoprotein (HDL) cholesterol mass ratOrdered By: Maribeth Vuong on 07-12-2022 Cholesterol.total/Patti sterol in HDL [Mass ratio] 8.0 {ratio} <5.0 [facility] Sodium [Moles/volume] in Ser um or PlasmaOrdered By: Maribeth Vuong on 07-12-2022 Sodium [Moles/Vol] 141 mmol/L 136-145 [facility] Triglyceride [Mass/volume] i n Serum or PlasmaOrdered By: Maribeth Vuong on 07-12-2022 Triglyceride [Mass/Vol] 266 mg/dL 0-149 [facility] Comment on above: TRIG ATP III CLASSIF ICATIONTRIG less than 150 mg/dL NormalTRIG 150-199 mg/dL Borderline highTRIG 200-500 mg/dL High TRIG greater than 500 mg/dL Very highStandard traceable to the Center for Disease Conrtrol and Prevention (CDC) test method. Urea nitrogen [Mass/volume] in Serum or PlasmaOrdered By: Maribeth Vuong on 07-12-2022 Urea nitrogen [Mass/Vol] 12 mg/dL 10-29 [facility] XR LSPINE 2_3 VIEWSon 2022 [...] by: DAMARIS ESPINOSA Date: 2022-07-02 14:57 Normal [facility] MRI PELVIS WO CONon 06-28-19 MRI PELVIS [...] by: DAMARIS ESPINOSA Date: 2022-06-27 09:45 Normal [facility] MRI [place] WO CONon 06-27-19 23 MRI [facility] WO CON EXAMINATION: MRI [place] WO CON HISTORY: Lumbar radiculitis , urinary [...] by: RENE LAUREN Date: 2022-06-26 15:24 Normal [facility] XR lumbar spine AP/LAT/FLX/E XTon 01-08-2021 XR lumbar spine AP/LAT/FLX/EXT [facility] Other XR lumbar spine AP/LAT/FLX/EXT [facility] [employer] Other XR lumbar spine AP/LAT/FLX/EXT [address] [place] [address] [employer] Other XR lumbar spine AP/LAT/FLX/[place] [address] [employer] Other XR lumbar spine AP/LAT/FLX/EXT XRay Report [facility] Other XR lumbar spine AP/LAT/FLX/EXT Signed [facility] Other XR lumbar spine AP/LAT/FLX/EXT Patient: Neal Parker MR#: [id number] [facility] Other XR lumbar spine AP/LAT/FLX/EXT 206 [facility] Other XR lumbar spine AP/LAT/FLX/EXT : 1980 Acct:[id number] [facility] Other XR lumbar spine AP/LAT/FLX/EXT Age/Sex: 40 / M ADM Date: 01/08/21 [facility] Other XR lumbar spine AP/LAT/FLX/EXT Loc: [facility] Room: Type: REG [facility] Other XR lumbar spine AP/LAT/FLX/EXT Attending Dr: Charles Solares MD [facility] Other XR lumbar spine AP/LAT/FLX/EXT Ordering Provider: Charles Solares MD [facility] Other XR lumbar spine AP/LAT/FLX/EXT Date of Service: 01/08/21 [facility] Other XR lumbar spine AP/LAT/FLX/EXT XR/XR lumbar spine AP/LAT/FLX/EXT: Other spondylosis with radiculopathy, [facility] Other XR lumbar spine AP/LAT/FLX/EXT lumbar region [facility] Other XR lumbar spine AP/LAT/FLX/EXT Copies to: Charles Solares MD [facility] Other XR lumbar spine AP/LAT/FLX/EXT Lumbar spine 01/08/2021. [facility] Other XR lumbar spine AP/LAT/FLX/EXT CLINICAL DATA: Low back pain. [facility] Other XR lumbar spine AP/LAT/FLX/EXT FINDINGS: 4 standing views of the lumbar spine were obtained including lateral views in the [facility] Other XR lumbar spine AP/LAT/FLX/EXT neutral, flexion, and extension positions. This examination is compared with a prior study 04/14/2019. [facility] Other XR lumbar spine AP/LAT/FLX/EXT There are stable postsurgical changes related to lumbosacral spinal fusion. There is also stable [facility] Other XR lumbar spine AP/LAT/FLX/EXT anterior malalignment of L5 on S1. Mild posterior malalignment of L2 on L3 is noted. Overall [facility] Other XR lumbar spine AP/LAT/FLX/EXT vertebral alignment does not significantly change with limited flexion or limited extension. Disc [facility] Other XR lumbar spine AP/LAT/FLX/EXT space narrowing is identified. Minimal degenerative changes are seen. [facility] Other XR lumbar spine AP/LAT/FLX/EXT XR/XR lumbar spine AP/LAT/FLX/EXT [facility] Other XR lumbar spine AP/LAT/FLX/EXT IMPRESSION: Stable postsurgical changes and mild vertebral malalignment at the lumbosacral junction. [facility] Other XR lumbar spine AP/LAT/FLX/EXT Mild posterior malalignment of L2 on L3. No instability with limited flexion or extension. Disc [facility] Other XR lumbar spine AP/LAT/FLX/EXT space narrowing and minimal degenerative changes. [facility] Other XR lumbar spine AP/LAT/FLX/EXT Impression dictated by: Jude Stock Jr., M.D.01/08/2021 2:59 PM [facility] Other XR lumbar spine AP/LAT/FLX/EXT Dictation Location: [place] [address] [facility] Other XR lumbar spine AP/LAT/FLX/EXT Transcribed By: JIL 01/08/21 [facility] Other XR lumbar spine AP/LAT/FLX/EXT Dictated By: Jude Stock Jr, MD 01/08/21 [facility] Other XR lumbar spine AP/LAT/FLX/EXT Signed By: [facility] Other XR lumbar spine AP/LAT/FLX/EXT 01/08/21 [facility] Other CNOVdary 06-09-2018 CNOV Office Visit (NSFRVW ) NEAL PARKER ([id number]) 1980 M Date Time Provider Department 06/09/18 [...] fx. Had surgery by Dr. Robbie Wakefield [facility] in [place]. 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 Author Type: [...] fx. Had surgery by Dr. Robbie Wakefield [facility] in [place]. 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 Hx of back problems and surgeries. Took two Naylor, flexeril, celebrex prior to coming. Needs another surgery for back. History of Present Illness 37-year-old white male presents emergency room with his and complaints of worsening lower back pain after bending over to light his heater in his shop. Patient has had prior back surgery by Dr. Sen in [place] March 14, 2015. Patient states he has [...] Anxious mood & affect. Integumentary: Warm, Dry, [place] Medical Decision Making X-rays did not demonstrate [...] In 3 days 04/04/2018 EST [address] [place] [address] Business (1) Additional Instructions: Call tomorrow for [...] made to ensure accuracy, however, inadvertently computerized b2b outside sales representative mistakes may be present. Patient was treated and evaluated by the physician melter assistant. The attending physician was in the [...] Summary. CODING DATE: 04/02/2018 FINAL [facility] DSCH STATUS: Home (Routine DC) PAYOR: Commercial Insurance APC DESCRIPTION 5522 Level 2 Imaging without Contrast ADMIT DX: REASON FOR VISIT DX: M54.5 Low back pain FINAL DX: PRINCIPAL: M54.5 Low back pain SECONDARY: M53.3 Sacrococcygeal disorders, not elsewhere classified Z79.899 Other jail (current) drug therapy PYMT PROC APC STAT DESCRIPTION DOCTOR NAME DATE NOTE: The code number assigned matches the documented diagnosis and / or procedure in the patient's chart. However, the narrative phrase printed from the coding software may appear abbreviated, or result in slightly different terminology. Coded By: Laila Mcghee Date Saved: 04/02/2018 11:01 am Normal [facility] ED Clinical Summaryon 2017 ED Clinical Summary [place] [id number] ED Clinical Summary Person Information Name: NEAL PARKER/[facility] Age: 37 Years : 1980 12:00 AM Sex: Male Language: Palestinian PCP: RENE MORRELL DO Marital Status: Visit [...] 04/01/2018 1:01 PM 04/01/2018 1:01 PM ADDRESS: [address] [place] [phone] [facility] DOC NOTES: MEDICAL INFORMATION: Prescriptions Given: Prescription [...] Follow up: With: Address: When: RENE MORRELL [address] [place] [address] [facility] (1) In 3 days 04/04/2018 Comments: [...] the lower extremities DIAGNOSIS: Lumbosacral pain Normal [facility] ED Patient Education Noteon 04-01-2018 [...] stressful on the back to sit or coatings inspector 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 Do not sit, drive, or coatings inspector one place for more than 30 minutes [...] pillow under your knees. ? Only take lbuz-fym-hstfwbi or prescription medicines as directed by your caregiver. Tqdv-wxp-uscsseb medicines to reduce pain and inflammation are [...] Document Reviewed: 07/26/2014 ExitCare? Patient Information ?2015 [employer]. This information is not intended to replace [...] the first months of treatment. Only take lneh-taa-yibmxdy or prescription medicines for pain, discomfort, or [...] Document Reviewed: 07/17/2009 ExitCare? Patient Information ?2014 [place] [employer], [employer]. This information is not intended to replace advice given to you by your health care provider. Make sure you discuss any questions you have with your health care provider. Normal [facility] ED Patient Summaryon 018 ED Patient Summary [place] [id number] Patient Discharge Instructions Person Information Name: NEAL PARKER Age: 37 Years Arrival Date: 04/01/2018 11:05 AM Discharge Diagnosis: Lumbosacral pain Primary Care Physician: RENE MORRELL DO Provider Information Primary Provider: Lashay Li DO Advanced Steam Conditioning Operator:May SERRANO, Abdelrahman Merchant The exam and treatment you received in the Emergency Department were for an urgent problem and are not intended as complete care. It is important that you follow up with a doctor, nurse practitioner, or physician?s melter assistant for ongoing care. If your symptoms [...] Follow-up Instructions: With: Address: When: RENE MORRELL [address] [place] [id number] Business (1) In 3 days 04/04/2018 Comments: [...] opioids can be used to help relieve fzoelhjr-jc-xknlep pain and are often prescribed following a [...] be struggling with addiction, tell your health aged or disabled care worker and ask for guidance or call SAMHSA?S National Helpline at 1-788-614-OAIS. v Source: US Department of Health and Human Services/Center for Disease Control & Prevention [facility] Medications Given: Medication Dose Route [...] Comment: Pharmacy Information: Thank you for choosing [facility] Patient Education Materials: Radicular Pain Radicular [...] the first months of treatment. Only take fxxg-fnr-kwppxsr or prescription medicines for pain, discomfort, or [...] Document Reviewed: 07/17/2009 ExitCare? Patient Information ?2015 [employer]. This information is not intended to replace [...] stressful on the back to sit or coatings inspector one place. Do not sit, drive, or coatings inspector one place for more than 30 minutes [...] pillow under your knees. ? Only take cxjl-sbv-postulf or prescription medicines as directed by your caregiver. Zqqg-dup-vuttadx medicines to reduce pain and inflammation are [...] Document Reviewed: 07/26/2014 ExitCare? Patient Information ?2015 [place] [employer], [employer]. This information is not intended to replace advice given to you by your health care provider. Make sure you discuss any questions you have with your health care provider. ELENA Bolden RUSSELL , have received the following patient education materials/instruction s and have verbalized understanding: Patient Education Materials: Radicular Pain; Back Pain, Adult Follow-up Instructions: With: Address: When: RENE MORRELL [address] [place], [place] [id number] [facility] (1) In 3 days 04/04/2018 Comments: [...] Signature Date Clinician/Nurse Signature Date 04/01/18 13:01:03 [facility] Progress Note-Nurseon 2017 Protein mass [...] No further needs at this time. Normal [facility] XR Spine Lumbosacral Minimum 4 [...] MD Transcribed by: DARSHAN Technologist: DEAN Smalls [facility] Vital Signs Date Time Vital Sign Value Performing Clinician Facility 09-15-2023 10:19-0400 Body height 177.8 cm [facility] 09-15-2023 10:19-0400 Body mass index (BMI) [Ratio] 37.3 kg/m2 [facility] 09-15-2023 10:19-0400 Body weight 117.93 kg [facility] 09-15-2023 10:19-0400 Diastolic blood pressure 84 mm[Hg] [facility] 09-15-2023 10:19-0400 Heart rate 88 /min [facility] 09-15-2023 10:19-0400 SaO2% (BldA) [Mass fraction] 97 % [facility] 09-15-2023 10:19-0400 Systolic blood pressure 124 mm[Hg] [facility] 07-21-2023 07:59-0400 Body height 177.8 cm DO Maribeth Vuong Work Phone: [facility] 07-21-2023 07:59-0400 Body mass index (BMI) [Ratio] 40.1 kg/m2 DO Maribeth Vuong Work Phone: [facility] 07-21-2023 07:59-0400 Body weight 127 kg DO Maribeth Vuong Work Phone: [facility] 07-21-2023 07:59-0400 Diastolic blood pressure 86 mm[Hg] DO Maribeth Vuong Work Phone: [facility] 07-21-2023 07:59-0400 Heart rate 76 /min DO Maribeth Vuong Work Phone: [facility] 07-21-2023 07:59-0400 SaO2% (BldA) [Mass fraction] 98 % DO Maribeth Vuong Work Phone: [facility] 07-21-2023 07:59-0400 Systolic blood pressure 128 mm[Hg] DO Maribeth Vuong Work Phone: [facility] 01-17-2023 09:00-0400 Body height 177.8 cm Maribeth Woodymer Other [facility] Other 01-17-2023 09:00-0400 Body mass index (BMI) [Ratio] 39.17 kg/m2 Maribeth Woodymer Other [facility] Other 01-17-2023 09:00-0400 Body temperature 97.7 [degF] Maribeth Carolann Other [facility] Other 01-17-2023 09:00-0400 Body weight 123.83 kg Maribeth Vuong Other [facility] Other 01-17-2023 09:00-0400 Diastolic blood pressure 78 mm[Hg] Maribeth Carolann Other [facility] Other 01-17-2023 09:00-0400 SaO2% (BldA) [Mass fraction] 98 % Maribeth Carolann Other [facility] Other 01-17-2023 09:00-0400 Systolic blood pressure 112 mm[Hg] Maribeth Vuong Other [facility] Other 12-18-2022 09:45-0400 Body height 177.8 cm Maribeth Vuong Other [facility] Other 12-18-2022 09:45-0400 Body mass index (BMI) [Ratio] 37.73 kg/m2 Maribeth Vuong Other [facility] Other 12-18-2022 09:45-0400 Body weight 119.3 kg Maribeth Vuong Other [facility] Other 12-18-2022 09:45-0400 Diastolic blood pressure 86 mm[Hg] Maribeth Vuong Other [facility] Other 12-18-2022 09:45-0400 Respiratory rate 18 /min Maribeth Vuong Other [facility] Other 12-18-2022 09:45-0400 SaO2% (BldA) [Mass fraction] 95 % Maribeth Vuong Other [employer] Other 12-18-2022 09:45-0400 Systolic blood pressure 126 mm[Hg] Maribeth Vuong Other [employer] Other 12-12-2022 08:00-0400 Body height 177.8 cm Maribeth Vuong Other [employer] Other 12-12-2022 08:00-0400 Body mass index (BMI) [Ratio] 37.73 kg/m2 Maribeth Vuong Other [employer] Other 12-12-2022 08:00-0400 Body temperature 98.5 [degF] Maribeth Vuong Other [employer] Other 12-12-2022 08:00-0400 Body weight 119.3 kg Maribeth Vuong Other [employer] Other 12-12-2022 08:00-0400 Diastolic blood pressure 102 mm[Hg] Maribeth Vuong Other [employer] Other 12-12-2022 08:00-0400 SaO2% (BldA) [Mass fraction] 96 % Maribeth Vuong Other [employer] Other 12-12-2022 08:00-0400 Systolic blood pressure 150 mm[Hg] Maribeth Vuong Other [employer] Other 09-26-2022 10:22-0400 Diastolic blood pressure 108 mm[Hg] DO Maribeth Vuong Work Phone: [facility] 09-26-2022 10:22-0400 Heart rate 74 /min DO Maribeth Vuong Work Phone: [facility] 09-26-2022 10:22-0400 Respiratory rate 16 /min DO Maribeth Vuong Work Phone: [facility] 09-26-2022 10:22-0400 SaO2% (BldA) [Mass fraction] 98 % DO Maribeth Vuong Work Phone: [facility] 09-26-2022 10:22-0400 Systolic blood pressure 156 mm[Hg] DO Maribeth Vuong Work Phone: [facility] 09-26-2022 08:26-0400 Body height 175.26 cm DO Maribeth Vuong Work Phone: [facility] 09-26-2022 08:26-0400 Body temperature 98.5 [degF] DO Maribeth Vuong Work Phone: [facility] 09-26-2022 08:26-0400 Body weight 113.39 kg DO Maribeth Vuong Work Phone: [facility] 09-11-2022 09:45-0400 Body height 177.8 cm Maribeth Carolann Other [employer] [facility] [employer] Other 09-11-2022 09:45-0400 Body mass index (BMI) [Ratio] 35.37 kg/m2 Maribeth Vuong Other [employer] Other 09-11-2022 09:45-0400 Body weight 111.81 kg Maribeth Carolann Other [employer] Other 09-11-2022 09:45-0400 Diastolic blood pressure 88 mm[Hg] Maribeth Vuong Other [employer] Other 09-11-2022 09:45-0400 Respiratory rate 18 /min Maribeth Vuong Other [employer] Other 09-11-2022 09:45-0400 SaO2% (BldA) [Mass fraction] 98 % Maribeth Vuong Other [employer] Other 09-11-2022 09:45-0400 Systolic blood pressure 142 mm[Hg] Maribeth Vuong Other [employer] Other 07-24-2022 10:30-0400 Body height 177.8 cm Igor Orr Other [employer] Other 07-24-2022 10:30-0400 Body mass index (BMI) [Ratio] 35.58 kg/m2 Igor Castroovanner Other [employer] Other 07-24-2022 10:30-0400 Body weight 112.49 kg Igor Castroovanner Other [employer] Other 07-24-2022 10:30-0400 Diastolic blood pressure 132 mm[Hg] Igor Scovanner Other [employer] Other 07-24-2022 10:30-0400 Systolic blood pressure 187 mm[Hg] Igor Scovanner Other [employer] Other 07-15-2022 12:15-0400 Body height 177.8 cm Maribeth Vuong Other [employer] Other 07-15-2022 12:15-0400 Body mass index (BMI) [Ratio] 35.58 kg/m2 Maribeth Vuong Other [employer] Other 07-15-2022 12:15-0400 Body temperature 98.1 [degF] Maribeth Vuong Other [employer] Other 07-15-2022 12:15-0400 Body weight 112.49 kg Maribeth Vuong Other [employer] Other 07-15-2022 12:15-0400 Diastolic blood pressure 110 mm[Hg] Maribeth Vuong Other [employer] Other 07-15-2022 12:15-0400 SaO2% (BldA) [Mass fraction] 97 % Maribeth Vuong Other [employer] Other 07-15-2022 12:15-0400 Systolic blood pressure 156 mm[Hg] Maribeth Vuong Other [employer] Other 01-04-2022 12:15-0400 Body height 177.8 cm Maribeth Vuong Other [employer] Other 01-04-2022 12:15-0400 Body mass index (BMI) [Ratio] 34.39 kg/m2 Maribeth Vuong Other [employer] Other 01-04-2022 12:15-0400 Body weight 108.73 kg Maribeth Vuong Other [employer] Other 01-04-2022 12:15-0400 Diastolic blood pressure 86 mm[Hg] Maribeth Vuong Other [employer] Other 01-04-2022 12:15-0400 Respiratory rate 18 /min Maribeth Vuong Other [employer] Other 01-04-2022 12:15-0400 SaO2% (BldA) [Mass fraction] 98 % Maribeth Vuong Other [employer] Other 01-04-2022 12:15-0400 Systolic blood pressure 136 mm[Hg] Maribeth Vuong Other [employer] Other 06-22-2021 10:00-0400 Body height 177.8 cm Maribeth Vuong Other [employer] Other 06-22-2021 10:00-0400 Body mass index (BMI) [Ratio] 34.16 kg/m2 Maribeth Vuong Other [employer] Other 06-22-2021 10:00-0400 Body weight 108 kg Maribeth Carolann Other [employer] Other 06-22-2021 10:00-0400 Diastolic blood pressure 78 mm[Hg] Maribeth Vuong Other [employer] Other 06-22-2021 10:00-0400 Respiratory rate 18 /min Maribeth Vuong Other [employer] Other 06-22-2021 10:00-0400 SaO2% (BldA) [Mass fraction] 95 % Maribeth Vuong Other [employer] Other 06-22-2021 10:00-0400 Systolic blood pressure 118 mm[Hg] Maribeth Vuong Other [employer] Other 03-08-2021 12:15-0500 Body height 177.8 cm Charles Solares Other [employer] Other 03-08-2021 12:15-0500 Body mass index (BMI) [Ratio] 33.72 kg/m2 Charles Solares Other [employer] Other 03-08-2021 12:15-0500 Body weight 106.6 kg Charles Solares Other [employer] Other 02-12-2021 11:00-0500 Body height 177.8 cm Maribeth Vuong Other [employer] Other 02-12-2021 11:00-0500 Body mass index (BMI) [Ratio] 33.37 kg/m2 Maribeth Vuong Other [employer] Other 02-12-2021 11:00-0500 Body temperature 98.3 [degF] Maribeth Vuong Other [employer] Other 02-12-2021 11:00-0500 Body weight 105.51 kg Maribeth Vuong Other [employer] Other 02-12-2021 11:00-0500 Diastolic blood pressure 88 mm[Hg] Maribeth Vuong Other [employer] Other 02-12-2021 11:00-0500 Respiratory rate 18 /min Maribeth Vuong Other [employer] Other 02-12-2021 11:00-0500 SaO2% (BldA) [Mass fraction] 99 % Maribeth Vuong Other [employer] Other 02-12-2021 11:00-0500 Systolic blood pressure 134 mm[Hg] Maribeth Vuong Other [employer] Other 02-01-2021 11:45-0400 Body height 177.8 cm Maribeth Vuong Other [employer] Other 02-01-2021 11:45-0400 Body mass index (BMI) [Ratio] 35.48 kg/m2 Maribeth Vuong Other [employer] Other 02-01-2021 11:45-0400 Body temperature 98.2 [degF] Maribeth Vuong Other [employer] Other 02-01-2021 11:45-0400 Body weight 112.18 kg Maribeth Vuong Other [employer] Other 02-01-2021 11:45-0400 Diastolic blood pressure 86 mm[Hg] Maribeth Vuong Other [employer] Other 02-01-2021 11:45-0400 Respiratory rate 18 /min Maribeth Vuong Other [employer] Other 02-01-2021 11:45-0400 SaO2% (BldA) [Mass fraction] 97 % Maribeth Vuong Other [employer] Other 02-01-2021 11:45-0400 Systolic blood pressure 136 mm[Hg] Maribeth Vuong Other [employer] Other Encounters Encounter Date Encounter Type Care Provider Facility Start: 09-30-2023 End: 10-02-2023 Evaluation and management of inpatient Diaz Valdovinos MD Facility:[facility] Start: 09-25-2023 End: 09-25-2023 ambulatory Diaz Valdovinos MD Facility:[facility] Start: 09-15-2023 End: 09-15-2023 [facility] Work Phone: Start: 09-15-2023 End: 09-15-2023 Patient encounter procedure [facility] [place] Work Phone: Start: 09-10-2023 End: 09-10-2023 ambulatory Diaz Valdovinos MD Facility:[facility] Start: 07-21-2023 End: 07-21-2023 ambulatory DO Maribeth Vuong Work Phone: [facility] Work Phone: Start: 07-21-2023 End: 07-21-2023 Patient encounter procedure DO Maribeth Vuong Work Phone: [facility] [place] Work Phone: Start: 06-03-2023 End: 06-03-2023 Patient encounter procedure DO Maribeth Vuong Work Phone: [facility] [place] [facility] Work Phone: Start: 05-29-2023 Non-patient / Non-visit DO Maribeth Vuong Work Phone: [facility] Physician [facility] [employer] Work Phone: Start: 03-13-2023 End: 03-13-2023 ambulatory Maribeth Vuong Other [facility] [employer] Other Start: 03-13-2023 Telephone encounter Maribeth Mercer [facility] Start: 02-05-2023 End: 02-05-2023 ambulatory Maribeth Vuong Other [facility] [employer] Other Start: 02-05-2023 Telephone encounter Maribeth Mercer [facility] Start: 01-17-2023 End: 01-17-2023 ambulatory Maribeth Vuong Other [email or web address] Other Start: 01-17-2023 Encounter for genera l adult medical examination without abnormal findings Maribeth Vuong [facility] [place] Start: 01-17-2023 Periodic preventive med est patient 40-64yrs Maribeth Carolann [facility] [place] Start: 12-18-2022 (Procedure) Short Maribeth Vuong [facility] [place] Start: 12-18-2022 End: 12-18-2022 ambulatory Maribeth Vuong Other [employer] Other Start: 12-12-2022 End: 12-12-2022 ambulatory Maribeth Vuong Other [employer] Other Start: 12-12-2022 Office outpatient visit 15 minutes Maribeth Vuong [facility] [place] Start: 12-05-2022 End: 12-05-2022 ambulatory Maribeth Carolann Other [employer] Other Start: 12-05-2022 Telephone encounter Maribeth Craolann [facility] [place] Start: 09-28-2022 End: 09-28-2022 ambulatory Nash Cardenas Other [email or web address] Other Start: 09-28-2022 Telephone encounter Nash Cardenas [facility] Start: 09-26-2022 End: 09-26-2022 ambulatory Nash Cardenas Facility:[facility] Start: 09-26-2022 End: 09-26-2022 Admission to same day surgery center DO Maribeth Vuong Work Phone: [facility]-Dig[facility] Work Phone: Start: 09-26-2022 End: 09-26-2022 ambulatory DO Maribeth Vuong Work Phone: [facility] Work Phone: Start: 09-11-2022 (Procedure) Short Maribeth Vuong [facility] [place] Start: 09-11-2022 End: 09-11-2022 ambulatory Maribeth Vuong Other [employer] Other Start: 09-10-2022 End: 09-10-2022 ambulatory Maribeth Vuong Other [employer] Other Start: 09-10-2022 Telephone encounter Maribeth Carolann [facility] [place] Start: 09-03-2022 End: 09-03-2022 ambulatory NARENDALBERTA GOMIJODEEY . Facility: Start: 08-20-2022 End: 08-20-2022 ambulatory Maribeth N Carolann Facility:[facility] Start: 08-20-2022 End: 08-20-2022 ambulatory DO Maribeth Vuong Work Phone: [facility] Work Phone: Start: 08-20-2022 End: 08-20-2022 Patient encounter procedure DO Maribeth Vuong Work Phone: [facility]-Physical Therapy [address] Start: 08-16-2022 End: 08-17-2022 ambulatory NARENDRANATH LAKSHMIPATHY . Facility:[facility] Start: 08-02-2022 End: 08-02-2022 ambulatory Maribeth Vuong Other [employer] Other Start: 08-02-2022 Telephone encounter Maribeth Mercer [facility] [place] Start: 07-30-2022 End: 07-30-2022 ambulatory NARENDRANATH LAKSHMIPATHY . Facility:[facility] Start: 07-24-2022 End: 07-24-2022 ambulatory Igor Orr Other [employer] Other Start: 07-24-2022 Office outpatient ne w 30 minutes Igor Orr [facility] Start: 07-23-2022 End: 07-24-2022 ambulatory NARENDRANATH LAKSHMIPATHY . Facility:[facility] Start: 07-16-2022 End: 07-16-2022 ambulatory Maribeth Vuong Other [employer] Other Start: 07-16-2022 Telephone encounter Maribeth Carolann [facility] [place] Start: 07-15-2022 Office outpatient visit 25 minutes Mariebth Vuong [facility] [place] Start: 07-15-2022 Telephone encounter Maribeth Carolann [facility] [place] Start: 07-15-2022 End: 07-15-2022 ambulatory DO Maribeth Vuong Work Phone: [employer] Other Start: 07-15-2022 End: 07-15-2022 Patient encounter procedure DO Maribeth Carolann Work Phone: [facility]-X-Ray [facility] Start: 07-12-2022 End: 07-12-2022 ambulatory Maribeth Vuong Facility:[facility] Start: 07-12-2022 Encounter for genera l adult medical examination without abnormal findings Maribeth Vuong [facility] Start: 07-12-2022 End: 07-12-2022 ambulatory DO Maribeth Vuong Work Phone: [facility] Work Phone: Start: 07-12-2022 End: 07-12-2022 Patient encounter procedure DO Maribeth Carolann Work Phone: [facility] [place] Work Phone: Start: 07-02-2022 End: 07-03-2022 ambulatory [...] End: 01-04-2022 ambulatory Maribeth Vuong Other [facility] [employer] Other Start: 01-04-2022 Encounter for genera l adult medical examination without abnormal findings Maribeth Vuong [facility] [place] Start: 01-04-2022 Periodic preventive med est patient 40-64yrs Maribeth Vuong [facility] [place] Start: 12-13-2021 End: 12-14-[address] JESSICA JOEL . Facility:[facility] Start: 10-31-2021 End: 11-01-[address] JESSICA JOEL . Facility:[facility] Start: 10-03-2021 End: 10-04-2021 ambulatory BRIT SCHUSTER . Facility:[facility] Start: 09-29-2021 End: 09-29-2021 ambulatory MARIBETH VUONG Facility:[facility] Start: 08-17-2021 End: 08-17-2021 ambulatory Charles Solares Other [employer] Other Start: 08-17-2021 Telephone encounter Charles Solares [facility] [place] Start: 08-07-2021 End: 08-07-2021 ambulatory Charles Solares Other [employer] Other Start: 08-07-2021 Telephone encounter Charles COCHRAN [facility] [facility] Start: 07-13-2021 End: 07-13-2021 ambulatory Maribeth Vuong Other [employer] Other Start: 07-13-2021 Telephone encounter Maribeth Vuong [facility] [place] Start: 07-09-2021 End: 07-09-2021 ambulatory Charles Solares Other [employer] Other Start: 07-09-2021 Office outpatient visit 25 minutes Charles Solares [facility] [place] Start: 06-22-2021 End: 06-22-2021 ambulatory Maribeth Vuong Other [employer] Other Start: 06-22-2021 Office outpatient visit 15 minutes Maribeth Vuong [facility] [place] Start: 06-06-2021 End: 06-06-2021 ambulatory Charles Solares Other [employer] Other Start: 06-06-2021 Office outpatient visit 25 minutes Charles Felter [facility] [place] Start: 05-29-2021 End: 05-29-2021 ambulatory Maribeth Vuong Other [employer] Other Start: 05-29-2021 Telephone encounter Maribeth Mercer [facility] [place] Start: 05-22-2021 End: 05-22-2021 ambulatory Maribeth Vuong Other [employer] Other Start: 05-22-2021 Telephone encounter Maribeth Mercer [facility] [place] Start: 05-21-2021 End: 05-21-2021 ambulatory Maribeth Vuong Other [employer] Other Start: 05-21-2021 Telephone encounter Maribeth Mercer [facility] [place] Start: 05-08-2021 End: 05-08-2021 ambulatory Charles Hernandezer Other [employer] Other Start: 05-08-2021 Office outpatient visit 25 minutes Charles Felter [facility] [place] Start: 04-12-2021 End: 04-12-2021 ambulatory Charles Felter Other [employer] Other Start: 04-12-2021 Office outpatient visit 25 minutes Charles Felter [facility] [place] Start: 03-08-2021 End: 03-08-2021 ambulatory Charles Felter Other [employer] Other Start: 03-08-2021 Office outpatient visit 25 minutes Charles Felter [facility] [place] Start: 02-28-2021 End: 02-28-2021 ambulatory Maribeth Vuong Other [employer] Other Start: 02-28-2021 Telephone encounter Maribeth Mercer [facility] [place] Start: 02-12-2021 End: 02-12-2021 ambulatory Maribeth Vuong Other [employer] Other Start: 02-12-2021 Office outpatient visit 15 minutes Maribeth Vuong [facility] [place] Start: 02-05-2021 Office outpatient visit 25 minutes Charles Solares [facility] [place] Start: 02-01-2021 Office outpatient visit 15 minutes Maribeth Vuong [facility] [place] Start: 01-08-2021 Office outpatient visit 25 minutes Charles Solares [facility] [place] Start: 06-09-2018 End: 06-10-2018 Patient encounter procedure PHI VILLAFUERTEANNES CAITLIN [facility] Start: 04-01-2018 End: 04-01-2018 Emergency department patient visit Lashay Li [place] Date Procedure Procedure Detail Performing Clinician Start: 06-03-2023 Plain X-ray of left hand DO Maribeth Vuong Work Phone: Start: 09-26-2022 Colonoscopy DO Maribeth Vuong Work Phone: Start: 07-15-2022 Diagnostic radiograp hy of abdomen DO Maribeth Vuong Work Phone: Plan of Treatment Date Care Activity Detail Author Start: 09-26-2022 [facility] Patient Education Hemorrhoids ([facility]) [facility] Work Phone: Immunizations Immunization Date Immunization Notes Care Provider Fa boy 12-07-2020 COVID-19 Vaccine Corey - Documentation Purposes Only Charles Solares Other [facility] 03-25-2019 Depo-Medrol 80 mg Charles lewis Other [employer] Other 12-11-2017 Kenalog -40 mg Charles Solares Other [employer] Other Payers Date Payer Category Payer Unknown 2022 Self-pay [id number] 1979 Unknown [id number] 2.16.84 0.1.014850.3.579.2.727 1979 Unknown [id number] 2.16.84 0.1.397801.3.579.2.593 1979 Unknown [id number] 2.16.84 0.1.884873.3.579.2.593 1979 Unknown [id number] 2.16.84 0.1.008806.3.579.2.593 1979 Unknown [id number] 2.16.84 0.1.716283.3.579.2.593 1979 Unknown [id number] 2.16.84 0.1.523915.3.579.2.593 1979 Unknown [id number] 2.16.84 0.1.239650.3.579.2.593 1979 Unknown [id number] 2.16.84 0.1.262118.3.579.2.593 1979 Unknown [id number] 2.16.84 0.1.650413.3.579.2.593 1979 Unknown [id number] 2.16.84 0.1.970567.3.579.2.593 1979 Unknown [id number] 2.16.84 0.1.354971.3.579.2.593 1979 Unknown [id number] 2.16.84 0.1.775465.3.579.2.593 1979 Unknown [id number] 2.16.84 0.1.090263.3.579.2.593 1979 Unknown [id number] 2.16.84 0.1.865251.3.579.2.593 1979 Unknown [id number] 2.16.84 0.1.299677.3.579.2.593 1979 Unknown [id number] 2.16.84 0.1.775371.3.579.2.593 1979 Unknown [id number] 2.16.84 0.1.248619.3.579.2.593 1979 Unknown [id number] 2.16. 840.1.474375.3.579.2.196 1979 Unknown [id number] 2.16. 840.1.542576.3.579.2.196 1979 Unknown [id number] 2.16. 840.1.977319.3.579.2.196 1960 Medicaid [id number] 1959 Unknown [id number] 1959 Unknown [id number] Blue Cross Blue Shield [id number] 2.16.840.1.610200.19 Unknown [facility] [id number] Unknown [id number] 2.16.8 40.1.020963.3.579.2.531 Unknown [id number] 2.16.8 40.1.177244.3.579.2.531 Unknown [id number] 2.16.8 40.1.068436.3.579.2.531 Unknown [id number] 2.16.8 40.1.521129.3.579.2.531 Social History Date Type Detail Facility Unknown if ever smoked [facility] Other Sex Assigned At Sex Assigned At Bir th [facility] Other Start: 04-13-2019 Tobacco smoking status NHIS Smoker (finding) [facility] Start: 1980 Sex Assigned At Male F [facility] Start: 09-26-2022 Tobacco smoking status LAIS Current some day smoker [facility] Goals Date Patient Goal Desired [...] Vishal PLEITEZ, Homar Mayers 10/02/23 05:07 EDT [facility] 09-30-2023 Note Operative Report DATE OF PROCEDURE: [...] [employer] SURGEON: Diaz Valdovinos MD SENIOR HRIS ANALYST: MAGGIE Duran PA-C assisted throughout the procedure [...] dural tear, nerve root injury, nonunion, DVT/PE, SC, stroke, etc. All questions were answered. Informed [...] monitoring remained stable (more content not included)... [facility] 09-29-2023 Note Chief Complaint Back pain History of Present Illness The patient is a 42-year-old male with complaints of constant low back pain that radiates to shooting pain into his buttocks and perineal region, he did have pain radiating down the posterior legs but had a RFA in February, which helped with his shooting pain. He also has burning and [id number] along the right lateral foot and toes. [...] CT and MRI Lumbar Spine done at [place] Electronically signed by Qamar Recio PA-C 09/29/23 09:58 EDT Electronically signed by Diaz Valdovinos MD 09/30/2023 09:41 EDT [facility] 03-13-2023 Evaluation note Encounter Date Diagnosis Assessment Notes Mar, Primary osteoarthritis of both first carpometacarpal joints (ICD-10 - M18.0) [facility] Other 11-01-2023 Evaluation note* Encounter Date Diagnosis Assessment Notes Treatment Notes Treatment Clinical Notes Feb, Primary hypertension (ICD-10 - I10) [email or web address] Other 10-13-2023 Evaluation note* Encounter Date Diagnosis [...] Jan, Medication monitoring encounter (ICD-10 - Z51.81) [facility] Other 09-13-2023 Evaluation note* Encounter Date Diagnosis Assessment Notes Treatment Notes Treatment Clinical Notes Dec, Primary osteoarthrit is of first carpometacarpal joint of left hand (ICD-10 - M18.12) [facility] Other 09-07-2023 Evaluation note* Encounter Date Diagnosis [...] he has any issues with the medicine. [facility] Other [facility] Encounter Date Diagnosis Assessment Notes Treatment Notes Treatment Clinical Notes Sep, Primary osteoarthrit is of both first carpometacarpal joints (ICD-10 - M18.0) [facility] Other 04-19-2023 Evaluation note* Encounter Date Diagnosis [...] colonoscopy to rule out luminal etiologies made [facility] Other 04-18-2023 NoteCONSULTATION CONSULTATION DATE: 07/23/2022 TO: [...] our patients to inform us about any [id number] medications or herbal remedies/nutritional supplements/alternative remedies. 2. [...] treatment options with their primary care provider.[id number] Evaluation note * Encounter Date Diagnosis Assessment Notes Treatment Notes Treatment Clinical Notes Jul, Generalized abdominal pain (ICD-10 - R10.84) [facility] Other 04-10-2023 Evaluation note* Encounter Date Diagnosis [...] Jul, Medication monitoring encounter (ICD-10 - Z51.81) [facility] Other 04-10-2023 Evaluation note* Encounter Date Diagnosis Assessment Notes Treatment Notes Treatment Clinical Notes Jul, Slow transit constipation (ICD-10 - K59.01) [facility] Other 03-28-2023 NoteCONSULTATION CONSULTATION DATE: 07/02/2022 TO: [...] as well as his lumbar spine films.[facility] [id number] Note CONSULTATION CONSULTATION DATE: 06/13/2022 HISTORY OF [...] relief. He has been seen both at [place] and [place] [facility] in the past, and received [...] under the care of Dr. Joshua in [place]. He is unwilling to try Lyrica due [...] Patient is in agreement to this plan.[facility] [id number] NoteCONSULTATION CONSULTATION DATE: 03/14/2022 HISTORY OF PRESENT [...] in three months' time, unless otherwise indicated.[facility] [id number] NoteCONSULTATION CONSULTATION DATE: 02/07/2022 HISTORY OF PRESENT [...] followed up in the office post procedure.[facility] [id number] Evaluation note* Encounter Date Diagnosis Assessment Notes [...] Dec, Prostate cancer screening (ICD-10 - Z12.5) [facility] Other 09-08-2022 NoteCONSULTATION CONSULTATION DATE: 12/13/2021 HISTORY [...] of care and all questions were answered.[facility] [id number] Note CONSULTATION PROCEDURE DATE: 10/31/2021 PREOPERATIVE DIAGNOSIS: [...] will be followed up in the office.[facility] [id number] Note CONSULTATION CONSULTATION DATE: 10/03/2021 This is [...] and will be seen in the clinic. [facility] Signed and Approved by: BRIT SCHUSTER . 10/11/2021 16:28:00[facility]04-04[facility]20[facility] Evaluation note* Encounter Date Diagnosis Assessment Notes [...] Patient notes prior issues with [facility] billing department and states he [...] note writ ten by Km Cervantes MA, Tractor Trailer Driver. Edited and approved by Dr. Charles Solares MD. [facility] Other 03-18-2022 Evaluation note* Encounter Date Diagnosis [...] and he is to continue with it. [facility] Other 03-02-2022 Evaluation note* Encounter Date Diagnosis [...] note writ ten by Km Cervantes CMA, [employer]. Edited and approved by Dr. Charles Solares MD. [facility] Other 02-15-2022 Evaluation note* Encounter Date Diagnosis Assessment Notes Treatment Notes Treatment Clinical Notes May, Cigarette nicotine dependence without complication (ICD-10 - F17.210) [facility] Other 02-14-2022 Evaluation note* Encounter Date Diagnosis Assessment Notes Treatment Notes Treatment Clinical Notes May, Other spondylosis with radiculopathy, lumbar region (ICD-10 - M47.26) [facility] Other 02-01-2022 Evaluation note* Encounter Date Diagnosis [...] was refilled today. Saliva sample performed through [facility] today, will await confirmatory results. Opiod contract updated at this time. May, Other chronic pain (ICD-10 - G89.29) May, Other Above note writ ten by Sonya Dawson LPN, [employer]. Edited and approved by Dr. Charles Solares MD. [email or web address] Other 01-06-2022 Evaluation note* Encounter Date Diagnosis [...] note writ ten by Km Cervantes CMA, [employer]. Edited and approved by Dr. Charles Solares MD. [facility] Other 12-02-2021 Evaluation note* Encounter Date Diagnosis [...] Above note written by Sonya Dawson LPN, [employer]. Edited and approved by Dr. Charles Solares MD. [facility] Other 11-08-2021 Evaluation note* Encounter Date Diagnosis [...] Patient voiced understanding agrees with this plan. [facility] Other 11-01-2021 Evaluation note* Encounter Date Diagnosis [...] note writ ten by Donita Henson CMA, [employer]ractor Tra[employer] Driver. Edited and approved by Dr. Charles Solares MD. [facility] Other 10-28-2021 Evaluation note* Encounter Date Diagnosis [...] message to Dr. Solares passing this along. [facility] Other 10-04-2021 Evaluation note* Encounter Date Diagnosis [...] educated regarding the risks and benefits of jail opioid use. He understands the associated risks with this medication and agrees that it provides reasonable benefit in regards to his pain control and level of function. Oxycodone Acetaminophen was refilled today. Jan, Other chronic pain (ICD-10 - G89.29) [facility] Other Evaluation noteNo [email or web address] Other Evaluation noteNo assessment information available [facility] Work Phone: Evaluation note* Diagnosis Onset Date Resolution Status Osteoarthritis of carpometac arpal joint of left thumb acute Primary osteoarthritis, left hand acute BPH (benign prostatic hyperplasia) chronic Hemorrhoid chronic Other spondylosis with radiculopathy, lumbar region chronic Blood present in stool nonea ctive [facility] Work Phone: Evaluation note* Diagnosis Onset Date Resolution Status BPH (benign prostatic hyperplasia) chronic Hemorrhoid chronic Other spondylosis with radiculopathy, lumbar region chronic Blood present in stool nonea ctive Other spondylosis with radiculopathy, lumbar region chronic Preoperative clearance nonea [facility] Work Phone: History and physical note Author Nash Cardenas [facility] September 26, 2022 9:39am Note Date/Time September 26, 2022 9:[address] [facility] [address] [place] [address] Gastroenterology H&P Signed Patient: Neal Parker MR#: [id number] : 1980 Acct:[id number] Age/Sex: 41 / M Adm Date: 3 Loc: Room: Type: [facility] Attending Dr: Nash Cardenas MD Copies [...] <Electronically signed by Nash Cardenas MD> 09/26/22938 [facility] Work Phone: Hisraol general Narrative - Reported* Type Description Date Medical History Hx spinal fusion Medical History Lumbar radiculopathy Medical History Trigger point Surgical History L5 S1 fusion 2014 Surgical History Left lower leg surgery (multipl e fractures) Surgical History foreign body excision right mid dle finger Hospitalization History pneumonia as [facility] Other [facility] general Narrative - Reported* Type Description Date Medical History Hx spinal fusion Medical History Lumbar radiculopathy Medical History Trigger point Surgical History L5 S1 fusion 2014 Surgical History Left lower leg surgery (multipl e fractures) Surgical History foreign body excision right mid dle finger Surgical History lumbar facet nerve b lock injection - Dr. Saldivar in [place] 11/2022 Hospitalization History pneumonia as [facility] Other [facility] general Narrative - Reported* Type Description Date Medical History Hx spinal fusion Medical History Lumbar radiculopathy Medical History Trigger point Surgical History L5 S1 fusion 2014 Surgical History Left lower leg surgery (multipl e fractures) Surgical History foreign body excision right mid dle finger Surgical History lumbar facet nerve b lock injection - Dr. Saldivar in [employer] 11/2022 Surgical History R side nerve ablation 01/2023 Hospitalization History pneumonia as [facility] Other Hospital Discharge instructions Additional Instructions DISCHARGE [...] years. -Follow up with PCP. -Office number [phone].[facility] Work Phone: Remafj for visit NarrativePatient here at the request of Dr. Vuong for evaluation & treatment of abdominal pain, change in bowel habits, weight loss, rectal bleeding.[facility] Other Reblkk for visit NarrativeProcedure appt and DNR-A signNosaint joseph hospital west [email or web address] Other Summary Purpose Family History No Family [...] Reason for Referral Reason Dr. Villanueva to [facility] er surgical options, steroid injections not providing long lasting benefit Diagnosis 1 Primary osteoarthrit is of both first carpometacarpal joints (M18.0) Referral Organization [facility] Family Camdencristóbal luisa Tom Referring Provider First Name Maribeth Referring Provider Last Name Carolann Referring Provider Specialty Family Prac patito Referred Organization [facility] Referred Address [address] [place] Referred Provider Specialty ORTHOPEDIC S URGEON Referral Priority Routine Reason * Waiting for appt CT and KUB normal, generalized pain of unclear etiology Diagnosis 1 Generalized abdomina l pain (R10.84) Referral Organization [facility] Family Camdencristóbal luisa Tom Referring Provider First Name Maribeth Referring Provider Last Name Carolann Referring Provider Specialty Family Prac patito Referred Organization [facility]) Gastroenterolo gy Referred Provider Dwayne Salas Referred Address [address] ,[place], [place],[address] Referred Provider Specialty Gastroentero logy Referral Priority [...] continuous use of opioids (F11.90) Referral Organization [facility] Family Camdencristóbal luisa Tom Referring Provider First Name Maribeth Referring Provider Last Name Carolann Referring Provider Specialty Family Prac patito Referred Organization [facility] Referred Address [address],[place],[address] Referred Provider Specialty Pain Medicin e Referral Priority Routine General Notes Rebeca Vivar 11:08:53 AM >referral received and faxed Clinical Notes P- [phone] Chief Complaint and Reason for Visit Chief [...] section and content) DATE CREATED AUTHOR 05/25/2018 [facility] DATE CREATED AUTHOR AUTHOR'S ORGANIZ ATION 06/11/2018 [facility] DATE CREATED AUTHOR AUTHOR'S ORGANIZ ATION 09/15/2022 [facility] DATE CREATED AUTHOR AUTHOR'S ORGANIZ ATION 10/04/2022 [facility] DATE CREATED AUTHOR AUTHOR'S ORGANIZ ATION 10/31/2023 [facility] REASON FOR VISIT (unrecogniz ed section and content) 1 MOback pain getting worse, pain management not working4 WK RECHECKDISCUSS DISABILITY OPTIONSLab results1 MO1 MONTH RECHECKCHANTIX1 month Follow upscript requestpaperwork1 MONTH FOLLOW UPCHANTIX refill/discuss back concerns1 MONTHNo InformationNo InformationPROCEDURE NOTES1 year Follow up/ AWVAbdominal Pain/ incontinencenew medication.ReferralPain ManagementB/L thumb steroid inj./ sign DNR-AORDERS PER DR Casanovaated bpelevated BP at PM in [place], no sxinjection L thumb1 year Follow upLosartan/HCTZsteroid [...] BE BASED ON THE PRIMARY CLINICAL RECORDS. [facility] [email or web address] [facility]. provides no warranty or guarantee of the accuracy or completeness of information in this document.
[2024-01-16 11:05] LABS: Chol HDL Ratio 4.7; Cholesterol 229 mg/dL (<=200); HDL Cholesterol 49 mg/dL (40-60); Triglycerides 105 mg/dL (<=150)
[2024-01-16 11:25] LABS: Prostate Specific Antigen Scrn 0.88 ng/mL (<=4.00)
== END 2024-01-16 10:26 | disposition home or self-care (01) ==
LOC: LAB 10:27
DX: Z12.5 Encounter for screening for malignant neoplasm of prostate (principal); E78.2 Mixed hyperlipidemia
CPT/HCPCS: 36415; 80061; G0103

== ENCOUNTER 2024-01-29 08:29 | Outpatient (OUT) | payer OTHER, SELFPAY ==
--- OUTSIDE RECORDS SUMMARY | 2024-01-29 08:35 | XMS_ITS | CCD ---
Author Organization [facility] Providers Care Concession Manager Name Role Phone Lashay Li Admitting [...] ., NARENDRANATH Attending Jessy vailable LAKSHMIARNEL ., NARENDJOAQUNIATH Admitting Jessy vailable CAROLANN, MARIBETH Primary Care Unavailable JESÚS, DR DAMARIS Deras Consulting Unavailable LAKSHMIPATHY ., NARENDRANATH Consulting Jessy vailable SCHUSTER ., BRIT Attending Unavailable SCHUSTER ., BRIT Admitting Unavailable CAROLANN, MARIBETH Primary Care Unavailable LEONIDAS, DR RENE eVlasco Consulting Unavailable ZIEBER, DR DAMARIS Deras Consulting Unavailable SCHUSTER ., BRIT Consulting Unavailable LAKSHMIPATHY ., NARENDRANATH Consulting Jessy vailable LAKSHMIPATHY ., NARENDRANATH Attending Jessy vailable LAKSHMIPATHY ., NARENDRANATH Admitting Jessy vailable CAROLANN, MARIBETH Primary Care Unavailable LAKSHMIPATHY ., NARENDRANATH Attending Jessy vailable LAKSHMIPATHY ., NARENDRANATH Admitting Jessy vailable CAROLANN, MARIBETH Primary Care Unavailable HALKER ., ORSINA Consulting Unavailable LAKSHMIPATHY ., NARENDRANATH Consulting Jessy [...] Nash Cardenas Attending Provider Nash Cardenas Unavailable DO Maribeth Vuong Primary Care Provider MD Nisha Villanueva Attending Provider [phone] Diaz Valdovinos MD Attending Diaz Wilson MD Admitting Slim Rodgers MD, Homar Mayers Consulting Unavail able Maribeth Vuong DO Primary Care Qamar Obrien Consulting Unavailable Diaz Valdovinos MD Attending Maribeth Aponte DO Primary Care Diaz Armenta MD Attending Maribeth Aponte DO Primary Care Nisha Santamaria Attending Unavailable Nisha Villanueva Admitting Unavailable Maribeth Vuong Primary Care Unavailable Allergies Allergy Classification Reported Allergen(s) Allergy Type Date of Onset Reaction(s) Facility (19 sources) gabapentin; Translations: [gabapentin] Drug Allergy 3 dizziness, sleepy, Drowsy, Drowsy, dizziness, sleepy [facility] (1 source) gabapentin Drug Allergy [facility] Repository (13 sources) zonisamide; Translations: [zonisamide] Drug Allergy 3 diarrhea [facility] (1 source) gabapentin Drug Allergy 4 [facility]ository (1 source) zonisamide Drug Allergy 4 [facility]ository Medications Current Medications Medication [...] mg / cholecalciferol 0.01 mg oral tablet (4 sources) Vitamin D Start: 09-27-19 take 1 [...] as needed for 90 days Active Diclofenac (10 sources) Nonsteroidal Anti-inflammatory Drug Start: 06-03-2023 Diclofenac [...] Jun, Active take 1 capsule by mo [facility] every twenty-four hours Cymbalta 60 MG 1 capsule Orally Once a day for 90 days Active Handicap placards as directed (18 sources) Start: 2018 Handicap placards as directed as directed as directed as directed Dec, Active hydroCHLOROthiazide 12.5 mg / losartan potassium 50 mg oral tablet (9 sources) Thiazide Diuretic, Angiotensin 2 Receptor Avery Start: 07-17-2023 End: 01-16-2024 take 1 tablet by mouth once daily Losartan-Penitas chlorothiazide Active 1 TAB PO Daily 90 January 16, 2024 8:22am Start: 12-12-2022 take 1 tablet by elizabeth [...] prn for 30 days Jul, Active Magnesium (4 sources) Start: 09-26-2022 take 100 mg by [...] May, Active ondansetron 8 mg oral tablet (9 sources) Serotonin-3 Receptor Antagonist Start: 05-29-2023 take 8 mg by mouth once daily Ondansetron Hcl Active 8 MG PO Daily May 29, 2023 1:00am take 1 tablet by elizabeth th once daily as needed Zofran 8 MG 1 tablet as needed Orally Once a day Active polyethylene glycol 3350 204791 mg / potassium chloride 2970 mg / sodium bicarbonate 6740 mg / sodium chloride 5860 mg / sodium sulfate 40038 mg powder for oral solution (6 sources) [...] Feb, Active pregabalin 50 mg oral capsule (10 sources) Start: 07-21-2023 take 50 mg by mouth twice daily Pregabalin Active 50 MG PO Twice daily July 21, 2023 12:00am Start: 12-17-2016 End: 01-29-2019 take 2 capsules by mouth twice daily Pregabalin (Lyrica) 75 mg capsule Discontinued 2 CAP PO Twice daily December 17, 2016 12:00am January 29, 2019 7:38am sennosides, care home 8.6 mg oral tablet (16 sources) Start: 02-01-2021 take 2 tablets by mouth once daily at bedtime as needed Senna Lax 8.6 MG 2 tablets at bedtime as needed Orally Once a day for 30 day(s) Jan, Active sildenafil 50 mg oral tablet (8 sources) Phosphodiesterase 5 Inhibitor Start: 07-17-2023 End: 01-16-2024 take 50 mg by mouth once daily Sildenafil Active 50 MG PO Daily January 16, 2024 8:32am Start: 01-17-2023 take 1 tablet by elizabeth [...] / HYDROcodone bitartrate 5 mg oral tablet (7 sources) Opioid Agonist Start: 12-17-2016 End: 09-26-2022 [...] as needed for 7 days Active Cannabis (7 sources) Start: 01-21-2019 End: 09-26-2022 Cannabis Discontinued Octobe r 2018 12:00am September 26, 2022 8:34am Start: 01-21-2019 Cannabis Activ e January 21, 2019 12:00am celecoxib 200 mg oral capsule (7 sources) Nonsteroidal Anti-inflammatory Drug Start: 12-17-2016 End: 09-26-2022 take 1 capsule by mouth twice daily Celecoxib Discontinued 1 CAP PO Twice daily December 17, 2016 12:00am September 26, 2022 8:34am lidocaine 0.04 mg/mg medicated patch (3 sources) Antiarrhythmic, Amide Local Anesthetic Start: 06-03-2023 [...] 40 mg niacin 500 mg oral tablet (4 sources) Nicotinic Acid Start: 09-26-2022 End: 09-15-2023 take 500 mg by mouth once daily Niacin Discontinued 500 MG PO Daily September 26, 2022 12:00am September 15, 2023 10:25am 12 hr orphenadrine citrate 100 mg extended release oral tablet (7 sources) Muscle Relaxant Start: 01-21-2019 End: 09-26-2022 take 100 mg by mouth twice daily Orphenadrine Citrate Discontinued 100 MG PO Twice daily January 21, 2019 12:00am September 26, 2022 8:35am tiZANidine 4 mg oral tablet (7 sources) Central alpha-2 Adrenergic Agonist Start: 07-01-2017 [...] Date Documented Da te Episodic/Chronic Abdominal pain (7 sources) Generalized abdominal pain; Translations: [Unspecified abdominal pain] Onset: 07-15-2022 Episodic Complications of surgical procedures or medical care (2 sources) Pseudarthrosis after fusion or arthrodesis; Translations: [Pseudarthrosis after fusion or arthrodesis] Onset: 09-30-2023 Episodic Essential hypertension (10 sources) Essential hypertension; Translations: [Essential (primary) hypertension] Chronic Gastrointestinal hemorrhage (3 sources) Hemorrhage of anus and rectum; Translations: [Melena] Episodic Genitourinary symptoms and ill-defined conditions (1 source) Unspecified urinary incontinence; Translations: [UNSPECIFIED URINARY INCONTINENCE] Onset: 06-29-2022 Chronic Genitourinary symptoms and ill-defined conditions (1 source) Unspecified abnormal findings in urine Episodic Hemorrhoids (5 sources) Hemorrhoids; Translations: [Unspecified hemorrhoids] 07-21-2023 Episodic Hyperplasia of prostate (6 sources) Benign prostatic hyperplasia; Translations: [Benign prostatic hyperplasia without lower urinary tract symptoms] 07-21-2023 Chronic Osteoarthritis (20 sources) Localized, primary osteoarthritis of the wrist; Translations: [Primary osteoarthritis, 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 Other aftercare (3 sources) Encounter for therapeutic drug level monitoring Episodic Other aftercare (1 source) Other press tender long goods (current) drug therapy; Translations: [OTH RETIREMENT CURRENT DRUG THERAPY] Onset: 07-17-2022 Episodic Other connective tissue disease (2 sources) Hand pain; Translations: [Pain in left hand] 06-02-2023 Episodic Other gastrointestinal disorders (20 sources) Slow transit constipation; Translations: [Slow transit constipation] Episodic Other gastrointestinal disorders (5 sources) Slow [...] bowel habit Episodic Other male genital disorders (4 sources) Secondary erectile dysfunction; Translations: [Erectile dysfunction due to diseases classified elsewhere] 01-16-2024 Chronic Other male genital disorders (2 sources) Erectile dysfunction due to diseases classified elsewhere; Translations: [Impotence of organic origin] Chronic Other nervous system disorders (20 sources) [...] conditions (not mental disorders or infectious disease) (2 sources) Encounter for screening for malignant neoplasm of prostate Episodic Spondylosis; intervertebral disc disorders; other back problems (20 sources) Displacement of lumbar intervertebral disc without myelopathy; Translations: [Other intervertebral disc displacement, lumbar region] Onset: 01-08-2021 Resolved: 07-09-2021 Chronic Spondylosis; intervertebral disc disorders; other back problems (20 sources) Thoracic back pain; Translations: [Pain in thoracic spine] Onset: 04-12-2021 Resolved: 07-09-2021 Episodic Substance-related disorders (20 sources) Nicotine dependence; Translations: [Nicotine dependence, cigarettes, uncomplicated] Onset: 05-22-2021 Resolved: 06-22-2021 Chronic Substance-related disorders (20 sources) Continuous opioid dependence; Translations: [Opioid use, unspecified, uncomplicated] Onset: 01-08-2021 Resolved: 07-09-2021 Episodic Unclassified (3 sources) LOW BACK PAIN, UNSPECIFIED; Translations: [LOW BACK PAIN, UNSPECIFIED] Onset: 12-19-2021 Unclassified (1 source) Pain in left hand; Translations: [Pain in left hand] Onset: 06-03-2023 Past or Other Problems Problem Classification Problem Date Documented Da te Episodic/Chronic Other gastrointestinal disorders (2 sources) Constipation, unspecified; Translations: [CONSTIPATION UNSPECIFIED] Onset: 10-03-2021 Episodic Other non-traumatic joint disorders (1 source) Pain in right knee; Translations: [Knee pain, right M25.561] Onset: 01-08-2021 Resolved: 01-08-2021 Episodic Unclassified (1 source) LOW BACK PAIN, UNSPECIFIED; Translations: [LOW BACK PAIN, UNSPECIFIED] Onset: 07-23-2022 Unclassified (1 source) Well adult; 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 Results Test Name Value Interpretation Reference Range Facility .eGFRon 10-02-2023 GFR/1.73 sq M.predicted MDRD (S/P/Bld) [Vol rate/Area] mL/min/{1.73_m2} Normal >=60 [facility] Comment on above: Result Comment: [facility] have implemented the eGFR [...] Age = years Performed By: #### C [id number] #### [address] [address] Basic Metabolic Profileon Anion gap [Moles/Vol] 5 mmol/L Normal 4-12 [facility] Comment on above: Performed By: #### C [id number] #### [address] [address] Calcium [Mass/Vol] 8.2 mg/dL Low 8.5-10.3 [facility] Comment on above: Performed By: #### C [id number] #### [address] [address] Chloride [Moles/Vol] 106 mmol/L Normal 98-110 [facility] Comment on above: Performed By: #### C [id number] #### [address] [address] CO2 [Moles/Vol] 27 mmol/L Normal 22-32 [facility] Comment on above: Performed By: #### C [id number] #### [address] [address] Creatinine [Mass/Vol] 0.75 mg/dL Normal 0.61-1.24 [facility] Comment on above: Performed By: #### C [id number] #### [address] [address] Glucose [Mass/Vol] 88 mg/dL Normal 70-99 [facility] Comment on above: Performed By: #### C [id number] #### [address] [address] Potassium [Moles/Vol] 3.9 mmol/L Normal 3.4-4.8 [facility] Comment on above: Performed By: #### C [id number] #### [address] [address] Sodium [Moles/Vol] 138 mmol/L Normal 133-142 [facility] Comment on above: Performed By: #### C [id number] #### [address] [address] Urea nitrogen [Mass/Vol] 13 mg/dL Normal 8-26 [facility] Comment on above: Performed By: #### C [id number] #### [address] [address] Urea nitrogen/Creatinine [Mass ratio] 17.3 mg/mg Normal 10.0-20.0 [facility] Comment on above: Performed By: #### C [id number] #### [address] [address] CBC w/ Diffon 10-02-2023 Erythrocyte distribution width (RBC) [Ratio] 14.4 % Normal 11.6-14.8 [facility] Comment on above: Performed By: #### E GFR #### [address] [address] Hematocrit (Bld) [Volume fraction] 37.0 % Low 41.0-53.0 [facility] Comment on above: Performed By: #### E GFR #### [place] [id number] Hemoglobin (Bld) [Mass/Vol] 12.1 g/dL Low 13.5-17.5 [facility] Comment on above: Performed By: #### E GFR #### [address] [address] MCH (RBC) [Entitic mass] 30.2 pg Normal 27.0-35.0 [facility] Comment on above: Performed By: #### E GFR #### [address] [address] MCHC 32.6 % Normal 31.0-37.0 [facility] Comment on above: Performed By: #### E GFR #### [address] [address] MCV (RBC) [Entitic vol] 92.6 fL Normal 80.0-100.0 [facility] Comment on above: Performed By: #### E GFR #### [address] [address] Platelet 174 x10*3/mcL Normal 150-450 [facility] Comment on above: Performed By: #### E GFR #### [address] [address] Platelet mean volume (Bld) [Entitic vol] 10.7 fL High 6.7-10.6 [facility] Comment on above: Performed By: #### E GFR #### [address] [address] RBC 4.00 x10*6/mcL Low 4.30-5.80 [facility] Comment on above: Performed By: #### E GFR #### [address] [address] WBC 11.9 x10*3/mcL High 4.5-11.0 [facility] Comment on above: Performed By: #### E GFR #### [address] [address] Diff Autoon 10-02-2023 Baso Absolute 0.0 x10*3/mcL Normal 0.0-0.2 [facility] Comment on above: Performed By: #### C [id number] #### [address] [address] Basophils/100 WBC (Bld) 0.2 % Normal 0.0-1.2 [facility] Comment on above: Performed By: #### C [id number] #### [address] [address] Eos Absolute 0.2 x10*3/mcL Normal 0.0-0.4 [facility] Comment on above: Performed By: #### C [id number] #### [address] [address] Eosinophils/100 WBC (Bld) 1.5 % Normal 0.0-6.1 [facility] Comment on above: Performed By: #### C [id number] #### [address] [address] Lymph Absolute 5.1 x10*3/mcL High 1.0-4.8 [facility] Comment on above: Performed By: #### C [id number] #### [address] [address] Lymphocytes/100 WBC (Bld) 42.9 % High 27.2-40.8 [facility] Comment on above: Performed By: #### C [id number] #### [address] [address] Nolan Absolute 0.9 x10*3/mcL Normal 0.3-1.1 [facility] Comment on above: Performed By: #### C [id number] #### [address] [address] Monocytes/100 WBC (Bld) 7.1 % Normal 4.7-13.9 [facility] Comment on above: Performed By: #### C [id number] #### [address] [address] Neutro Absolute 5.7 x10*3/mcL Normal 1.8-7.7 [facility] Comment on above: Performed By: #### C [id number] #### [address] [address] Neutro Auto 48.3 % Normal 47.2-70.8 [facility] Comment on above: Performed By: #### C [id number] #### [address] [address] Inpatient Clinical Summaryon 10-02-2023 Inpatient Clinical Summary [address] [address] [address] [address] Clinical Summary Person Information Name: Neal Parker Age: 42 Years : 1980 Sex: Male PCP: Maribeth Vuong DO Marital Status: Phone: PCP: Race: White Ethnicity: Not or Language: Lebanese Visit Id: Visit Reason: Speciality: Acuity: Enc Type: Inpatient Med Service: Surgery Arrival: 09/30/2023 08:56:12 Discharge: Dispo Type: Address: [address] [place] [phone] Diagnosis: Discharged To: Home Treatments: Devices/Equipment: Professional [...] range between ( 27.2 and 40.8 ) Nolan Auto: 7.1 % -- Normal range between [...] range between ( 41.0 and 53.0 ) Nolan Absolute: 0.9 x10 MCH: 30.2 pg -- [...] to r (more content not included)... Normal [facility] .eGFRon 10-01-2023 GFR/1.73 sq M.predicted MDRD (S/P/Bld) [Vol rate/Area] mL/min/{1.73_m2} Normal >=60 [facility] Comment on above: Order Comment: Order added by Discern rule Result Comment: [facility] have implemented the eGFR [...] years Performed By: #### E GFR #### [address] [address] Basic Metabolic Profileon Calcium [Mass/Vol] 8.4 mg/dL Low 8.5-10.3 [facility] Comment on above: Performed By: #### E GFR #### [address] [address] Anion gap [Moles/Vol] 6 mmol/L Normal 4-12 [facility] Comment on above: Performed By: #### E GFR #### [address] [address] Chloride [Moles/Vol] 107 mmol/L Normal 98-110 [facility] Comment on above: Performed By: #### E GFR #### [address] [address] CO2 [Moles/Vol] 26 mmol/L Normal 22-32 [facility] Comment on above: Performed By: #### E GFR #### [address] [address] Creatinine [Mass/Vol] 0.97 mg/dL Normal 0.61-1.24 [facility] Comment on above: Performed By: #### E GFR #### [address] [address] Glucose [Mass/Vol] 119 mg/dL High 70-99 [facility] Comment on above: Performed By: #### E GFR #### [address] [address] Potassium [Moles/Vol] 4.1 mmol/L Normal 3.4-4.8 [facility] Comment on above: Performed By: #### E GFR #### [address] [address] Sodium [Moles/Vol] 139 mmol/L Normal 133-142 [facility] Comment on above: Performed By: #### E GFR #### [place] [id number] Urea nitrogen [Mass/Vol] 15 mg/dL Normal 8-26 [facility] Comment on above: Performed By: #### E GFR #### [place] [id number] Urea nitrogen/Creatinine [Mass ratio] 15.5 mg/mg Normal 10.0-20.0 [facility] Comment on above: Performed By: #### E GFR #### [place] [id number] CBC w/ Diffon 10-01-2023 Erythrocyte distribution width (RBC) [Ratio] 13.9 % Normal 11.6-14.8 [facility] Comment on above: Performed By: #### E GFR #### [place] [id number] Hematocrit (Bld) [Volume fraction] 38.3 % Low 41.0-53.0 [facility] Comment on above: Performed By: #### E GFR #### [place] [id number] Hemoglobin (Bld) [Mass/Vol] 12.5 g/dL Low 13.5-17.5 [facility] Comment on above: Performed By: #### E GFR #### [place] [id number] MCH (RBC) [Entitic mass] 30.2 pg Normal 27.0-35.0 [facility] Comment on above: Performed By: #### E GFR #### [address] [address] MCHC 32.7 % Normal 31.0-37.0 [facility] Comment on above: Performed By: #### E GFR #### [place] [id number] MCV (RBC) [Entitic vol] 92.3 fL Normal 80.0-100.0 [facility] Comment on above: Performed By: #### E GFR #### [address] [address] Platelet 175 x10*3/mcL Normal 150-450 [facility] Comment on above: Performed By: #### E GFR #### [address] [address] Platelet mean volume (Bld) [Entitic vol] 11.3 fL High 6.7-10.6 [facility] Comment on above: Performed By: #### E GFR #### [address] [address] RBC 4.15 x10*6/mcL Low 4.30-5.80 [facility] Comment on above: Performed By: #### E GFR #### [address] [address] WBC 15.0 x10*3/mcL High 4.5-11.0 [facility] Comment on above: Performed By: #### E GFR #### [address] [address] Diff Autoon 10-01-2023 Baso Absolute 0.0 x10*3/mcL Normal 0.0-0.2 [facility] Comment on above: Performed By: #### E GFR #### [address] [address] Basophils/100 WBC (Bld) 0.1 % Normal 0.0-1.2 [facility] Comment on above: Performed By: #### E GFR #### [address] [address] Eos Absolute 0.0 x10*3/mcL Normal 0.0-0.4 [facility] Comment on above: Performed By: #### E GFR #### [address] [address] Eosinophils/100 WBC (Bld) 0.0 % Normal 0.0-6.1 [facility] Comment on above: Performed By: #### E GFR #### [address] [address] Lymph Absolute 1.6 x10*3/mcL Normal 1.0-4.8 [facility] Comment on above: Performed By: #### E GFR #### [address] [address] Lymphocytes/100 WBC (Bld) 10.9 % Low 27.2-40.8 [facility] Comment on above: Performed By: #### E GFR #### [address] [address] Nolan Absolute 0.9 x10*3/mcL Normal 0.3-1.1 [facility] Comment on above: Performed By: #### E GFR #### [address] [address] Monocytes/100 WBC (Bld) 6.2 % Normal 4.7-13.9 [facility] Comment on above: Performed By: #### E GFR #### [address] [address] Neutro Absolute 12.4 x10*3/mcL High 1.8-7.7 [facility] Comment on above: Performed By: #### E GFR #### [address] [address] Neutro Auto 82.8 % High 47.2-70.8 [facility] Comment on above: Performed By: #### E GFR #### [address] [address] Orthopedic Progress Noteon 0 10-01-2023 Orthopedic Progress [...] POD#2 pending pain control Electronically signed by Udo-Homar Graf MD, Jr 10/01/23 11:46 EDT Normal [facility] Operative Reporton 4 Operative Report Preoperative Diagnosis 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 Postoperative Diagnosis 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 Operation L5-S1 right HW removal, L5-S1 revision right decompression and revision fusion Surgeon(s) St Keri PLEITEZ, Diaz Mercer (Surgeon - Primary) Flatwork Presser Almita SERRANO, Qamar Mcelroy (Dairy Farm Supervisor) Anesthesia General Trevor PLEITEZ, Zuleima Maier (Barbering Teacher) Kurt Nieves (Provider) Estimated Blood Loss 150 mL Urine Output 800.0 mL Findings loose screws Specimen(s) none Complications none Catheters, Drains, Tubes Device: Rodney Tray 16FR Latex Free [id number] Electronically signed by Qamar Recio PA-C 09/30/23 12:16 EDT Normal [facility] XR Spine Lumbosacral 1 View in [...] Signed, Electronically Signed in Other Vendor System) [facility] XR Chest 2 Viewson 4 XR Chest 2 Views EXAM: XR Chest [...] Electronically Signed in Other Vendor System) Normal [facility] .eGFRon 09-10-2023 GFR/1.73 sq M.predicted MDRD (S/P/Bld) [Vol rate/Area] mL/min/{1.73_m2} Normal >=60 [facility] Comment on above: Result Comment: [facility] have implemented the eGFR [...] years Performed By: #### E GFR #### [facility] [address] [place] [address] ABO/Rhon 09-10-2023 ABO/Rh SD 09/30/23 ABO/Rh: A POS Normal [facility] Comment on above: Performed By: #### A ABRIL #### [facility] (DEFAULT) [address] [place] [address] [facility] (UNKNOWN) [address] [place] [address] ABSC Autoon 09-10-2023 ABSC Auto Negative Normal [facility] Comment on above: Performed By: #### A #### [facility] (UNKNOWN) [address] [place] [address] Basic Metabolic Profileon Anion gap [Moles/Vol] 8 mmol/L Normal 4-12 [facility] Comment on above: Performed By: #### C [id number] #### [facility] [address] [place] [address] Calcium [Mass/Vol] 10.3 mg/dL Normal 8.5-10.3 [facility] Comment on above: Performed By: #### C [id number] #### [facility] [address] [place] [address] Chloride [Moles/Vol] 101 mmol/L Normal 98-110 [facility] Comment on above: Performed By: #### C [id number] #### [facility] [address] [place] [address] CO2 [Moles/Vol] 31 mmol/L Normal 22-32 [facility] Comment on above: Performed By: #### C [id number] #### [facility] [address] [place] [address] Creatinine [Mass/Vol] 1.05 mg/dL Normal 0.61-1.24 [facility] Comment on above: Performed By: #### C [id number] #### [facility] [address] [place] [address] Glucose [Mass/Vol] 94 mg/dL Normal 70-99 [facility] Comment on above: Performed By: #### C [id number] #### [facility] [address] [place] [address] Potassium [Moles/Vol] 4.0 mmol/L Normal 3.4-4.8 [facility] Comment on above: Performed By: #### C [id number] #### [address] [address] Sodium [Moles/Vol] 140 mmol/L Normal 133-142 [facility] Comment on above: Performed By: #### C [id number] #### [address] [address] Urea nitrogen [Mass/Vol] 13 mg/dL Normal 8-26 [facility] Comment on above: Performed By: #### C [id number] #### [address] [address] Urea nitrogen/Creatinine [Mass ratio] 12.4 mg/mg Normal 10.0-20.0 [facility] Comment on above: Performed By: #### C [id number] #### [address] [address] CBCon 09-10-2023 Erythrocyte distribution width (RBC) [Ratio] 14.1 % Normal 11.6-14.8 [facility] Comment on above: Performed By: #### C [id number] #### [address] [address] Hematocrit (Bld) [Volume fraction] 46.6 % Normal 41.0-53.0 [facility] Comment on above: Performed By: #### C [id number] #### [address] [address] Hemoglobin (Bld) [Mass/Vol] 15.5 g/dL Normal 13.5-17.5 [facility] Comment on above: Performed By: #### C [id number] #### [address] [address] MCH (RBC) [Entitic mass] 30.9 pg Normal 27.0-35.0 [facility] Comment on above: Performed By: #### C [id number] #### [address] [address] MCHC 33.3 % Normal 31.0-37.0 [facility] Comment on above: Performed By: #### C [id number] #### [address] [address] MCV (RBC) [Entitic vol] 92.9 fL Normal 80.0-100.0 [facility] Comment on above: Performed By: #### C [id number] #### [address] [address] Platelet 191 x10*3/mcL Normal 150-450 [facility] Comment on above: Performed By: #### C [id number] #### [address] [address] Platelet mean volume (Bld) [Entitic vol] 11.3 fL High 6.7-10.6 [facility] Comment on above: Performed By: #### C [id number] #### [address] [address] RBC 5.02 x10*6/mcL Normal 4.30-5.80 [facility] Comment on above: Performed By: #### C [id number] #### [address] [address] WBC 8.2 x10*3/mcL Normal 4.5-11.0 [facility] Comment on above: Performed By: #### C [id number] #### [address] [address] MRSA, PCRon 09-10-2023 LAB ONLY Result Called? No Normal [facility] Comment on above: Performed By: #### E GFR #### [address] [address] Methicillin Resistant Staph aurus(MRSA) Not detected Normal Not Detected [facility] Comment on above: Result Comment: Mut ations or polymorphisms in primer or probe binding regions may affect detection of new or unknown MRSA variants resulting in a false negative. The [employer] Xpert MRSA Assay is a qualitative in [...] clinician. Performed By: #### E GFR #### [address] [address] PTon 09-10-2023 INR Coag (PPP) [Relative time] 0.9 {INR} Normal <=3.5 [facility] Comment on above: Result Comment: INR has no normal range. INR Therapeutic range is: 2.0-3.0 (AF, CVA, TIAs, DVT prophylaxis, acute DVT) 2.5-3.5 (Mech heart valves, recurrent thrombosis/emboli) Performed By: #### P TINR #### [address] [address] PT Coag (PPP) [Time] 9.8 s Normal 9.2-12.0 [facility] Comment on above: Performed By: #### P TINR #### [address] [address] PTTon 09-10-2023 aPTT Coag (Bld) [Time] 22.0 s Normal 19.5-28.2 [facility] Comment on above: Performed By: #### C [id number] #### [address] [address] XR hand LT min 3V*on 024 XR hand LT min 3V* [facility] [place] [address] [place], [place] [id number] XRay Report Signed Patient: Neal Parker MR#: [id number] : 1980 Acct:[id number] Age/Sex: 42 / M ADM Date: 06/03/23 Loc: [facility] [place] Room: Type: [facility] Attending Dr: Nisha Villanueva MD Copies to: Nisha Villanueva MD Ordering Provider: Nisha Villanueva MD Date of Service: 06/03/23 XR/XR hand LT min 3V*: M79.642 - Pain in left hand LEFT HAND - 4 views REASON FOR EXAM: Left hand first digit pain. COMPARISON: None FINDINGS: No focal soft tissue abnormality or acute bony process. Moderate degenerative changes CMC joint of the thumb. No bony erosions. Presumed remote injury base of the distal phalanx of the fifth digit. XR/XR hand LT min 3V* IMPRESSION: MODERATE DEGENERATIVE CHANGES CMC JOINT OF THE THUMB. NO ACUTE BONY PROCESS. Impression dictated by: Sonny Greer Jr., D.OIbrahima06/03/2023 3:46 PM Dictation Location: [facility]--14 Transcribed By: [facility] 06/03/23 1546 Dictated By: Sonny Greer Jr, DO 06/03/23 1545 Signed By: 06/03/23 1546 Normal [facility] Amylaseon 07-15-2022 Amylase 43 U/L Normal 29-103 U/L [employer] Other Amylase [Enzymatic activity/ volume] in Serum or PlasmaOrdered By: Maribeth Vuong on 07-15-2022 Amylase [Catalytic activity/Vol] 43 U/L 29-103 [facility] Basophils Auto (Bld) [#/Vol] Ordered By: Maribeth Vuong on 07-15-2022 Basophils (Bld) [#/Vol] 0.0 10*3/uL 0.0-0.2 [facility] Basophils/100 WBC Auto (Bld) Ordered By: Maribeth Vuong on 07-15-2022 Basophils/100 WBC (Bld) 0.5 % . F [facility] CBC W MANUAL DIFFon 07-16-19 23 ATYPICAL LYMPH # Normal [facility] Comment on above: Performed By: #### C JEAN ####[facility] [address] [address]Dr. Sydney David ATYPICAL LYMPH % Normal [facility] Comment on above: Performed By: #### C JEAN ####[facility] [address] [address]Dr. Sydney David BAND # 0.1 103/ul Normal 0.0-0.3 [facility] Comment on above: Performed By: #### C JEAN ####[facility] [address] [place], [place] [address]Dr. Keylan David BAND % 1 % Normal 0-5 [facility] Comment on above: Performed By: #### C JEAN ####[facility] Iqsp[address] [place], [place] [address]Dr. Sydney David BASOM # 0.00 103/ul Normal 0.00-0.10 [facility] Comment on above: Performed By: #### C JEAN ####[facility] [address] [place], [place] [address]Dr. Sydney David BASOM % 0.0 % Critically low 0.2-2.0 [facility] Comment on above: Performed By: #### C JEAN ####[facility] [address] [place], [place] [address]Dr. Sydney David BLAST # Normal [facility] Comment on above: Performed By: #### C JEAN ####[facility] [address] [place], [place] [address]Dr. Sydney David BLAST % Normal [facility] Comment on above: Performed By: #### C JEAN ####[facility] [address] [place], [place] [address]Dr. Sydney David CORRECTED WBC Normal 4.0-11.0 [facility] Comment on above: Performed By: #### C JEAN ####[facility] Txot[address] [place], [place] [address]Dr. Keylan David EOS # 0.24 103/ul Normal 0.00-0.70 [facility] Comment on above: Performed By: #### C JEAN ####[facility] [address] [place] [address]Dr. Sydney David EOS% 3.0 % Normal 0.9-7.0 [facility] Comment on above: Performed By: #### C JEAN ####[facility] [address] [place] [address]Dr. Sydney David HCT 46.4 % Normal 42.0-54.0 [facility] Comment on above: Performed By: #### C JEAN ####[facility] [address] [place] [address]Dr. Sydney David HGB 15.4 g/dl Normal 14.0-18.0 [facility] Comment on above: Performed By: #### C JEAN ####[facility] [address] [place] [id number]. Sydney David LYMPHM # 3.36 103/ul Normal 1.20-3.80 [facility] Comment on above: Performed By: #### C JEAN ####[facility] [address] [place] [address]Dr. Sydney David LYMPHM% 42.0 % Normal 20.5-60.0 [facility] Comment on above: Performed By: #### C JEAN ####[facility] [address] [place] [address]Dr. Sydney David MCH 30.3 pg Normal 25.9-34.0 [facility] Comment on above: Performed By: #### C JEAN ####[facility] [address] [place] [address]Dr. Sydney David MCHC 33.2 g/dl Normal 29.9-35.2 [facility] Comment on above: Performed By: #### C JEAN ####[facility] [address] [place] [address]Dr. Sydney David MCV 91.3 fL Normal 80.0-94.0 [facility] Comment on above: Performed By: #### C JEAN ####[facility] [address] [place] [id number]. Sydney David METAMYELOCYTE # Normal [facility] Comment on above: Performed By: #### C JEAN ####[facility] [address] [place] [id number]. Sydney David METAMYELOCYTE % Normal [facility] Comment on above: Performed By: #### C JEAN ####[facility] [address] [place] [id number]. Sydney David MONOM# 0.80 103/ul Normal 0.30-0.80 [facility] Comment on above: Performed By: #### C JEAN ####[facility] [address] [place] [address]Dr. Sydney David MONOM% 10.0 % Normal 1.7-12.0 [facility] Comment on above: Performed By: #### C JEAN ####[facility] [address] [place] [address]Dr. Sydney David MPV 11.8 fL Normal 9.5-13.5 [facility] Comment on above: Performed By: #### C JEAN ####[facility] [address] [place], [place] [address]Dr. Sydney David MYELOCYTE # Normal [facility] Comment on above: Performed By: #### C JEAN ####[facility] [address] [place] [id number]. Sydney David MYELOCYTE % Normal [facility] Comment on above: Performed By: #### C JEAN ####[facility] [address] [place] [id number]. Sydney David NRBC Normal [facility] Comment on above: Performed By: #### C JEAN ####[facility] [address] [place] [id number]. Sydney David PLT 249 103/ul Normal 150-450 [facility] Comment on above: Performed By: #### C JEAN ####[facility] [address] [place], [place] [address]Uk. Sydney David RBC 5.08 106/ul Normal 4.70-6.10 [facility] Comment on above: Performed By: #### Maya PENA ####[facility] [address] [place], [place] [address]Lt. Sydney David RDW 13.1 % Normal 11.0-15.0 [facility] Comment on above: Performed By: #### Maya PENA ####[facility] [address] [place], [place] [address]Bn. Sydney David SEG # 3.52 103/ul Normal 1.40-6.50 [facility] Comment on above: Performed By: #### Maya PENA ####[facility] [address] [place], [place] [address]Yk. Sydney David SEG % 44.0 % Normal 43.0-75.0 [facility] Comment on above: Performed By: #### Maya PENA ####[facility] [address] [place], [place] [address]Vn. Sydney David WBC 8.0 103/ul Normal 4.0-11.0 [facility] Comment on above: Performed By: #### Maya PENA ####[facility] [address] [place], [place] [address] ABD/PELV W CONon 07-16-19 [...] by: EVANGELIST LEOS Date: 2022-07-15 16:53 Normal [facility] Complete Blood Count Auto Di ffon 07-15-2022 Basophils (Bld) [#/Vol] 0.170266577 10*3/uL Normal 0.0-0.2 10*3/uL [employer] Other Basophils/100 WBC (Bld) 0.500 % . % N [employer] Other Eosinophils (Bld) [#/Vol] 0.848852821 10*3/uL High 0.0-0.45 10*3/uL [employer] Other Eosinophils/100 WBC (Bld) 6.100 % . % [employer] Other Erythrocyte distribution width (RBC) [Ratio] 13.600 % Normal 12.0-14.8 % [employer] Other Hematocrit (Bld) [Volume fraction] 47.400 % Normal 38.8-50.0 % [employer] Other Hemoglobin (Bld) [Mass/Vol] 15.653040 g/dL Normal 13.0-17.0 g/dL [employer] Other Lymphocytes (Bld) [#/Vol] 4.322697175 10*3/uL Normal 1.00-4.8 10*3/uL [employer] Other Lymphocytes/100 WBC (Bld) 46.500 % . % [employer] Other MCH (RBC) [Entitic mass] 30.2000 pg Normal 27.5-35.2 pg [employer] Other MCV (RBC) [Entitic vol] 92.3000 fL Normal 83.5-101 fL [employer] Other Monocytes (Bld) [#/Vol] 0.166921383 10*3/uL Normal 0.0-0.8 10*3/uL [employer] Other Monocytes/100 WBC (Bld) 8.300 % . % N [facility] [employer] Other Neutrophils (Bld) [#/Vol] 3.466233648 10*3/uL Normal 1.8-7.7 10*3/uL [employer] Other Neutrophils/100 WBC (Bld) 38.600 % . % [employer] Other Platelet mean volume (Bld) [Entitic vol] 11.1000 fL High 6.6-10.1 fL [employer] Other WBC (Bld) [#/Vol] 9.342624564 10*3/uL Normal 4.1 -10.5 10*3/uL [employer] Other Complete Blood Count Auto Diff 9.2 10*3/uL Normal 4.1-10.5 10*3/uL [employer] Other Complete Blood Count Auto Diff 32.7 g/dL Normal 32.5-35.6 g/dL [employer] Other Complete Blood Count Auto Diff 0.0 /100{WBC} Normal 0-0.5 /100{WBC} [employer] Other Complete Blood Count Auto Di ffOrdered By: Maribeth Vuong on 07-15-2022 Platelets (Bld) [#/Vol] 236 10*3/uL 150-450 [facility] RBC (Bld) [#/Vol] 5.13 10*6/uL 3.90-5.[address] [facility] ER URINE PROFILEon 3 Bilirubin Ql (U) Negative Normal NEGATIVE [facility] Comment on above: Performed By: #### E RUR ####[facility] [address] [place], [place] [address]Dr. Sydney David Clarity (U) CLEAR Normal CLEAR [facility] Comment on above: Performed By: #### E RUR ####[facility] [address] [place], [place] [address]Dr. Sydney David Color (U) LT. YELLOW Normal YELLOW [facility] Comment on above: Performed By: #### E RUR ####[facility] [address] [place], [place] [address]Dr. Sydney David ERUAHD A micrscopic examination will be performed if indicated. Normal [facility] Comment on above: Performed By: #### E RUR ####[facility] F[address] [place], [place] [address]Dr. Sydney David Glucose Ql (U) Negative Normal NEGATIVE [facility] Comment on above: Performed By: #### E RUR ####[facility] [address] [place], [place] [address]Dr. Sydney David Hemoglobin Ql (U) Negative Normal NEGATIVE [facility] Comment on above: Performed By: #### E RUR ####[facility] Kw[address]zd[address] [place], [place] [address]Dr. Keymera David Ketones Ql (U) Negative Normal NEGATIVE [facility] Comment on above: Performed By: #### E RUR ####[facility] U[address]pir[address] [place], [place] [address]Dr. Sydney David LEUKOCYTES Negative Normal NEGATIVE [facility] Comment on above: Performed By: #### E RUR ####[facility] [address]se[address] [place], [place] [address]Dr. Keymera David Nitrite Ql (U) Negative Normal NEGATIVE [facility] Comment on above: Performed By: #### E RUR ####[facility] Uey[address] [place], [place] [address]Dr. Keymera David pH (U) 5.5 [pH] Normal 5-9 [facility] Comment on above: Performed By: #### E RUR ####[facility] [address] [place] [address]Dr. Sydney David SPEC GRAVITY 1.010 Normal 1.005-<=1.0 25 [facility] Comment on above: Performed By: #### E RUR ####[facility] [address] [place] [address]Dr. Sydney Frankie UA PROTEIN Negative Normal NEGATIVE/ TRACE [facility] Comment on above: Performed By: #### E RUR ####[facility] [address] [place] [address]Dr. Sydney Frankie UR MICRO IND NOT INDICATED Normal [facility] Comment on above: Performed By: #### E RUR ####[facility] [address] [place] [address]Dr. Sydney Frankie Urobilinogen Qn (U) 0.2 {Johan'U}/dL Normal 0.2 - 1. 0 [facility] Comment on above: Performed By: #### E RUR ####[facility] [address] [place] [address]Dr. Keymera Frankie Eosinophils Auto (Bld) [#/Vo l]Ordered By: Maribeth Vuong on 07-15-2022 Eosinophils (Bld) [#/Vol] 0.6 10*3/uL 0.0-0.45 [facility] Eosinophils/100 WBC Auto (Bl d)Ordered By: Maribeth Vuong on 07-15-2022 Eosinophils/100 WBC (Bld) 6.1 % . [facility] Erythrocyte distribution wid th Auto (RBC) [Ratio]Ordered By: Maribeth Vuong on 07-15-2022 Erythrocyte distribution width (RBC) [Ratio] 13.6 % 12.0-14.8 [facility] Hematocrit Auto (Bld) [Volum e fraction]Ordered By: Maribeth Vuong on 07-15-2022 Hematocrit (Bld) [Volume fraction] 47.4 % 38.8-50.0 [facility] Hemoglobin [Mass/volume] in BloodOrdered By: Maribeth Vuong on 07-15-2022 Hemoglobin (Bld) [Mass/Vol] 15.5 g/dL 13.0-17.0 [facility] Leukocytes [#/volume] correc gris for nucleated erythrocytes in Blood by Automated counOrdered By: Maribeth Vuong on 07-15-2022 WBC corrected for nucl RBC Auto (Bld) [#/Vol] 9.2 10*3/uL 4.1-10.5 [facility] Lipaseon 07-15-2022 Lipase [Catalytic activity/Vol] 80.51139 U/L Normal 11.0-82.0 U/L [employer] Other Lipase [Enzymatic activity/v olume] in Serum or PlasmaOrdered By: Maribeth Vuong on 07-15-2022 Lipase [Catalytic activity/Vol] 80.0 U/L 11.0-82.0 [facility] Lymphocytes Auto (Bld) [#/Vo l]Ordered By: Maribeth Vuong on 07-15-2022 Lymphocytes (Bld) [#/Vol] 4.3 10*3/uL 1.00-4.8 [facility] Lymphocytes/100 WBC Auto (Bl d)Ordered By: Maribeth Vuong on 07-15-2022 Lymphocytes/100 WBC (Bld) 46.5 % . [facility] MCH Auto (RBC) [Entitic mass ]Ordered By: Maribeth Vuong on 07-15-2022 MCH (RBC) [Entitic mass] 30.2 pg 27.5-35.2 [facility] MCHC Auto (RBC) [Mass/Vol]Or dered By: Maribeth Vuong on 07-15-2022 MCHC (RBC) [Mass/Vol] 32.7 g/dL 32.5-35.6 [facility] MCV Auto (RBC) [Entitic vol] Ordered By: Maribeth Vuong on 07-15-2022 MCV (RBC) [Entitic vol] 92.3 fL 83.5-101 F [facility] Monocytes Auto (Bld) [#/Vol] Ordered By: Maribeth Vuong on 07-15-2022 Monocytes (Bld) [#/Vol] 0.8 10*3/uL 0.0-0.8 [facility] Monocytes/100 WBC Auto (Bld) Ordered By: Maribeth Vuong on 07-15-2022 Monocytes/100 WBC (Bld) 8.3 % . F [facility] Neutrophils Auto (Bld) [#/Vo l]Ordered By: Maribeth Vuong on 07-15-2022 Neutrophils (Bld) [#/Vol] 3.6 10*3/uL 1.8-7.7 [facility] Neutrophils/100 WBC Auto (Bl d)Ordered By: Maribeth Vuong on 07-15-2022 Neutrophils/100 WBC (Bld) 38.6 % . [facility] Nucleated erythrocytes [Pres ence] in Blood by Automated countOrdered By: Maribeth Vuong on 07-15-2022 Nucleated RBC Auto Ql (Bld) 0.0 /100{WBC} 0-0.5 [facility] PROF CHEM 8 (BAS METB)on Anion gap [Moles/Vol] 13.3 mmol/L Normal [facility] Comment on above: Performed By: #### B MP #### [facility] [address] [address] [address] Sydney David Calcium [Mass/Vol] 9.1 mg/dL Normal 8.5-10.1 [facility] Comment on above: Performed By: #### B MP #### [facility] [address] [address] [address] Sydney David Chloride [Moles/Vol] 102 mmol/L Normal 98-107 [facility] Comment on above: Performed By: #### B MP #### [facility] [address] [address] [address] Sydney David CO2 [Moles/Vol] 27.2 mmol/L Normal 21.0-32.0 [facility] Comment on above: Performed By: #### B MP #### [facility] [address] [address] [address] Sydney David Creatinine [Mass/Vol] 1.08 mg/dL Normal 0.70-1.30 [facility] Comment on above: Performed By: #### B MP #### [facility] [address] [address] [address] Sydney David EGFR-AF GAMBIAN >60 Normal >=60 [facility] Comment on above: Performed By: #### B MP #### [facility] [address] [address] [address] Sydney David EGFR-NON AF GAMBIAN >60 Normal >=60 [facility] Comment on above: Performed By: #### B MP #### [facility] [address] [address] [address] Sydney David Glucose [Mass/Vol] 116 mg/dL Critically high 74-106 [facility] Comment on above: Performed By: #### B MP #### [facility] [address] [address] [address] Sydney David Potassium [Moles/Vol] 3.5 mmol/L Normal 3.5-5.1 [facility] Comment on above: Performed By: #### B MP #### [facility] [address] [address] [address] Sydney David Sodium [Moles/Vol] 139 mmol/L Normal 136-145 [facility] Comment on above: Performed By: #### B MP #### [facility] [address] [address] [address] Sydney David Urea nitrogen [Mass/Vol] 12.0 mg/dL Normal 7.0-18.0 [facility] Comment on above: Performed By: #### B MP #### [facility] [address] [address] [address] Sydney David Urea nitrogen/Creatinine [Mass ratio] 11.1 mg/mg Normal [facility] Comment on above: Performed By: #### B MP #### [facility] [address] [place] [address] Dr. Sydney David Platelet mean volume Auto (B ld) [Entitic vol]Ordered By: Maribeth Vuong on 07-15-2022 Platelet mean volume (Bld) [Entitic vol] 11.1 fL 6.6-10.1 [facility] WBC Auto (Bld) [#/Vol]Ordere d By: Maribeth Vuong on 07-15-2022 WBC (Bld) [#/Vol] 9.2 10*3/uL 4.1-10.5 [facility] Alanine aminotransferase [En zymatic activity/volume] in Serum or PlasmaOrdered By: Maribeth Vuong on 07-12-2022 ALT [Catalytic activity/Vol] 68 U/L 7-52 [facility] Albumin [Mass/volume] in Ser um or Plasma by Bromocresol green (BCG) dye binding methoOrdered By: Maribeth Vuong on 07-12-2022 Albumin BCG dye [Mass/Vol] 4.7 g/dL 3.5-5.7 [facility] Alkaline phosphatase [Enzyma tic activity/volume] in Serum or PlasmaOrdered By: Maribeth Vuong on 07-12-2022 ALP [Catalytic activity/Vol] 33 U/L 34-104 [facility] Aspartate aminotransferase [ Enzymatic activity/volume] in Serum or PlasmaOrdered By: Maribeth Vuong on 07-12-2022 AST [Catalytic activity/Vol] 29 U/L 13-39 [facility] Bilirubin.total [Mass/volume ] in Serum or PlasmaOrdered By: Maribeth Vuong on 07-12-2022 Bilirubin [Mass/Vol] 0.6 mg/dL 0.3-1.0 [facility] Calcium [Mass/volume] in Ser um or PlasmaOrdered By: Maribeth Vuong on 07-12-2022 Calcium [Mass/Vol] 10.1 mg/dL 8.6-10.3 [facility] Carbon dioxide, total [Moles /volume] in Serum or PlasmaOrdered By: Maribeth Vuong on 07-12-2022 CO2 [Moles/Vol] 27.5 mmol/L 21.0-31.0 [facility] Chloride [Moles/volume] in S flash or PlasmaOrdered By: Maribeth Vuong on 07-12-2022 Chloride [Moles/Vol] 106 mmol/L 98-107 [facility] Cholesterol [Mass/volume] in Serum or PlasmaOrdered By: Maribeth Vuong on 07-12-2022 Cholesterol [Mass/Vol] 296 mg/dL 140-200 [facility] Comment on above: Chol less than 200 m g/dl low riskChol 201-239 mg/dl borderline riskChol 240 mg/dl and greater high risk Cholesterol in LDL Calc [Mas s/Vol]Ordered By: Maribeth Vuong on 07-12-2022 Cholesterol in LDL [Mass/Vol] 206 mg/dL 0-100 [facility] Comment on above: LDL ATP III CLASSIFI CATIONLDL less than 100 mg/dL OptimalLDL 100-129 mg/dL Near or above optimalLDL 130-159 mg/dL Borderline highLDL 160-189 mg/dL HighLDL greater than 189 mg/dL Very high Cholesterol in VLDL Calc [Ma ss/Vol]Ordered By: Maribeth Vuong on 07-12-2022 Cholesterol in VLDL [Mass/Vol] 53 mg/dL [facility] Creatinine [Mass/volume] in Serum or PlasmaOrdered By: Maribeth Vuong on 07-12-2022 Creatinine [Mass/Vol] 0.96 mg/dL 0.70-1.30 [facility] Globulin Calc (S) [Mass/Vol] Ordered By: Maribeth Vuong on 07-12-2022 Globulin (S) [Mass/Vol] 2.6 g/dL [facility] Glucose [Mass/volume] in Ser um or PlasmaOrdered By: Maribeth Vuong on 07-12-2022 Glucose [Mass/Vol] 106 mg/dL 70-100 [facility] Comment on above: ADA recommended refe rence rangeRandom Glucose Reference Range is dependent on time and content of last meal. Glucose of more than 200 mg/dL in a nonstressed, ambulatory subject supports the diagnosis of Diabetes Mellitus. No Panel InformationOrdered By: Maribeth Vuong on 07-12-2022 Estimated GFR (CKD-EPI) > 60.0 mL/Min [facility] Creatinine Clearance (Chem N/A [facility] Potassium [Moles/volume] in Serum or PlasmaOrdered By: Maribeth Vuong on 07-12-2022 Potassium [Moles/Vol] 4.3 mmol/L 3.5-5.1 [facility] Prostate specific Ag [Mass/v olume] in Serum or PlasmaOrdered By: Maribeth Vuong on 07-12-2022 Prostate specific Ag [Mass/Vol] 0.670 ng/mL 0.000-4.000 [facility] Protein [Mass/volume] in Ser um or PlasmaOrdered By: Maribeth Vuong on 07-12-2022 Protein [Mass/Vol] 7.3 g/dL 6.4-8.9 [facility] Serum or plasma albumin/glob ulin mass ratioOrdered By: Maribeth Vuong on 07-12-2022 Albumin/Globulin [Mass ratio] 1.8 {ratio} [facility] Serum or plasma anion gap de terminationOrdered By: Maribeth Vuong on 07-12-2022 Anion gap [Moles/Vol] 11.8 mmol/L 6.0-15.0 [facility] Serum or plasma high density lipoprotein (HDL) cholesterol measurementOrdered By: Maribeth Vuong on 07-12-2022 Cholesterol in HDL [Mass/Vol] 37 mg/dL 29-71 [facility] Comment on above: HDL CHOL ATP-III CLA SSIFICATION Cardiovascular RiskHDL > or equal to 60 mg/dL LOWHDL < 40 mg/dL HIGH Serum or plasma total choles terol/high density lipoprotein (HDL) cholesterol mass ratOrdered By: Maribeth Vuong on 07-12-2022 Cholesterol.total/Patti sterol in HDL [Mass ratio] 8.0 {ratio} <5.0 [facility] Sodium [Moles/volume] in Ser um or PlasmaOrdered By: Maribeth Vuong on 07-12-2022 Sodium [Moles/Vol] 141 mmol/L 136-145 [facility] Triglyceride [Mass/volume] i n Serum or PlasmaOrdered [...] nitrogen [Mass/Vol] 12 mg/dL 10-29 [facility] XR LSPINE 2_3 VIEWSon 2022 [...] by: DAMARIS ESPINOSA Date: 2022-07-02 14:57 Normal [facility] MRI PELVIS WO CONon 06-28-19 [...] by: DAMARIS ESPINOSA Date: 2022-06-27 09:45 Normal [facility] MRI LSPINE WO CONon 06-27-19 MRI LSPINE [...] by: RENE LAUREN Date: 2022-06-26 15:24 Normal [facility] XR lumbar spine AP/LAT/FLX/E XTon 01-08-2021 XR lumbar spine AP/LAT/FLX/EXT [facility] [employer] Other XR lumbar spine AP/LAT/FLX/EXT [facility] [employer] Other XR lumbar spine AP/LAT/FLX/EXT [address] [place] [address] [employer] Other XR lumbar spine AP/LAT/FLX/[place] [address] [employer] Other XR lumbar spine AP/LAT/FLX/EXT XRay Report [employer] Other XR lumbar spine AP/LAT/FLX/EXT Signed [employer] Other XR lumbar spine AP/LAT/FLX/EXT Patient: Neal Parker MR#: [id number] [employer] Other XR lumbar spine AP/LAT/FLX/EXT 206 [employer] Other XR lumbar spine AP/LAT/FLX/EXT : 1980 Acct:[id number] [employer] Other XR lumbar spine AP/LAT/FLX/EXT Age/Sex: 40 / M ADM Date: 01/08/21 [employer] Other XR lumbar spine AP/LAT/FLX/EXT [facility] [facility] [place]: Type: REG CLI [employer] Other XR lumbar spine AP/LAT/FLX/EXT Attending Dr: Charles Solares MD [employer] Other XR lumbar spine AP/LAT/FLX/EXT Ordering Provider: Charles Solarse MD [employer] Other XR lumbar spine AP/LAT/FLX/EXT Date of Service: 01/08/21 [employer] Other XR lumbar spine AP/LAT/FLX/EXT XR/XR lumbar spine AP/LAT/FLX/EXT: Other spondylosis with radiculopathy, [employer] Other XR lumbar spine AP/LAT/FLX/EXT lumbar region [employer] Other XR lumbar spine AP/LAT/FLX/EXT Copies to: Charles Solares MD [employer] Other XR lumbar spine AP/LAT/FLX/EXT Lumbar spine 01/08/2021. [employer] Other XR lumbar spine AP/LAT/FLX/EXT CLINICAL DATA: Low back pain. [employer] Other XR lumbar spine AP/LAT/FLX/EXT FINDINGS: 4 standing views of the lumbar spine were obtained including lateral views in the [employer] Other XR lumbar spine AP/LAT/FLX/EXT neutral, flexion, and extension positions. This examination is compared with a prior study 04/14/2019. [employer] Other XR lumbar spine AP/LAT/FLX/EXT There are stable postsurgical changes related to lumbosacral spinal fusion. There is also stable [employer] Other XR lumbar spine AP/LAT/FLX/EXT anterior malalignment of L5 on S1. Mild posterior malalignment of L2 on L3 is noted. Overall [employer] Other XR lumbar spine AP/LAT/FLX/EXT vertebral alignment does not significantly change with limited flexion or limited extension. Disc [employer] Other XR lumbar spine AP/LAT/FLX/EXT space narrowing is identified. Minimal degenerative changes are seen. [employer] Other XR lumbar spine AP/LAT/FLX/EXT XR/XR lumbar spine AP/LAT/FLX/EXT [employer] Other XR lumbar spine AP/LAT/FLX/EXT IMPRESSION: Stable postsurgical changes and mild vertebral malalignment at the lumbosacral junction. [employer] Other XR lumbar spine AP/LAT/FLX/EXT Mild posterior malalignment of L2 on L3. No instability with limited flexion or extension. Disc [employer] Other XR lumbar spine AP/LAT/FLX/EXT space narrowing and minimal degenerative changes. [employer] Other XR lumbar spine AP/LAT/FLX/EXT Impression dictated by: Jude Stock Jr., M.D.01/08/2021 2:59 PM [employer] Other XR lumbar spine AP/LAT/FLX/EXT Dictation Location: [facility] [employer] Other XR lumbar spine AP/LAT/FLX/EXT Transcribed By: JIL 01/08/21 [id number] [employer] Other XR lumbar spine AP/LAT/FLX/EXT Dictated By: Jude Stock Jr, MD 01/08/21 [id number] [employer] Other XR lumbar spine AP/LAT/FLX/EXT Signed By: [employer] Other XR lumbar spine AP/LAT/FLX/EXT 01/08/21 [id number] [employer] Other CNOVon 06-09-2018 CNOV Office Visit (NSFRVW ) ELENANEAL Perrin ([id number]) 1980 M Date Time Provider Department 06/09/18 [...] surgery by Dr. Robbie Wakefield, [facility] in [place]. 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 Author Type: [...] surgery by Dr. Robbie Wakefield [facility] in [place]. He felt that he was better in [...] This happens every 12 - 15 steps. 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 Hx of back problems and surgeries. Took two [place], flexeril, celebrex prior to coming. Needs another surgery for back. History of Present Illness 37-year-old white male presents emergency room with his and complaints of worsening lower back pain after bending over to light his heater in his shop. Patient has had prior back surgery by Dr. Sen in [place] March 14, 2015. Patient states he has [...] Anxious mood & affect. Integumentary: Warm, Dry, [place] Medical Decision Making X-rays did not demonstrate [...] In 3 days 04/04/[address] [place] [address]- Business (1) Additional Instructions: Call tomorrow for [...] made to ensure accuracy, however, inadvertently computerized general dentist mistakes may be present. Patient was treated and evaluated by the physician liaison inspection laboratory assistant. The attending physician was in the [...] acute fracture. Signed By: Andreas Cordova MD [facility] Comment on above: Result Comment: Elec tronically Signed By: Abdelrahman Olvera PA-C\.br\Date and Time Signed: 04/01/18 12:55 EST\.br\Electronically Co-Signed By: Lashay Li DO\.br\Date and Time Co-Signed: 04/07/18 16:20 EST Coding Summary.on 04-02-2018 Coding Summary. CODING DATE: 04/02/2018 FINAL [facility] STATUS: Home (Routine DC) PAYOR: Commercial Insurance APC DESCRIPTION 5522 Level 2 Imaging without Contrast ADMIT DX: REASON FOR VISIT DX: M54.5 Low back pain FINAL DX: PRINCIPAL: M54.5 Low back pain SECONDARY: M53.3 Sacrococcygeal disorders, not elsewhere classified Z79.899 Other press tender long goods (current) drug therapy PYMT PROC APC STAT DESCRIPTION DOCTOR NAME DATE NOTE: The code number assigned matches the documented diagnosis and / or procedure in the patient's chart. However, the narrative phrase printed from the coding software may appear abbreviated, or result in slightly different terminology. Coded By: Laila Mcghee Date Saved: 04/02/2018 11:01 am Normal [facility] ED Clinical Summaryon 2017 ED Clinical Summary [place] [id number] ED Clinical Summary Person Information Name: NEAL PARKER/[facility] Age: 37 Years : 1980 12:00 AM Sex: Male Language: Lebanese PCP: RENE MORRELL DO Marital Status: Visit [...] 04/01/2018 1:01 PM 04/01/2018 1:01 PM ADDRESS: [address] [place] [id number] PHYS DOC NOTES: MEDICAL INFORMATION: Prescriptions Given: [...] Pain, Adult Follow up: With: Address: When: REEN MORRELL [address] [place] [address] Business (1) In 3 days 04/04/2018 Comments: [...] the lower extremities DIAGNOSIS: Lumbosacral pain Normal [facility] ED Patient Education Noteon 04-01-2018 ED [...] stressful on the back to sit or instructor bridge one place. Do not sit, drive, or instructor bridge one place for more than 30 minutes [...] pillow under your knees. ? Only take gamx-vkm-zhaoaij or prescription medicines as directed by your caregiver. Hzgb-cnm-sdxbeoy medicines to reduce pain and inflammation are [...] Document Reviewed: 07/26/2014 ExitCare? Patient Information ?2014 [employer]. This information is not intended to replace [...] the first months of treatment. Only take pint-xqs-qkkjusf or prescription medicines for pain, discomfort, or [...] Document Reviewed: 07/17/2009 ExitCare? Patient Information ?2014 [employer]. This information is not intended to replace advice given to you by your health care provider. Make sure you discuss any questions you have with your health care provider. Normal [facility] ED Patient Summaryon 018 ED Patient Summary [address] [address] Patient Discharge Instructions Person Information Name: NEAL PARKER Age: 37 Years Arrival Date: 04/01/2018 11:05 AM Discharge Diagnosis: Lumbosacral pain Primary Care Physician: RENE MORRELL DO Provider Information Primary Provider: Lashay Li DO Advanced Telegraph Operator:Abdelrahman Olvera PA-C The exam and treatment you received in the Emergency Department were for an urgent problem and are not intended as complete care. It is important that you follow up with a doctor, nurse practitioner, or physician?s liaison inspection laboratory assistant for ongoing care. If your symptoms [...] Follow-up Instructions: With: Address: When: RENE MORRELL [address] [place] [id number] Business (1) In 3 days 04/04/2018 Comments: [...] opioids can be used to help relieve gecxckpl-jv-ydhjrn pain and are often prescribed following a [...] be struggling with addiction, tell your health career technical education teacher and ask for guidance or call [facility] National Helpline at 9-414-683-EEAI. h Source: [place] Department of Health and Human Services/Center for Disease Control & Prevention [facility] Medications Given: Medication Dose Route [...] Comment: Pharmacy Information: Thank you for choosing [facility] Patient Education Materials: Radicular Pain Radicular [...] the first months of treatment. Only take rsbk-ohr-auhaihn or prescription medicines for pain, discomfort, or [...] Document Reviewed: 07/17/2009 ExitCare? Patient Information ?2014 [place], [facility]. This information is not intended [...] stressful on the back to sit or instructor bridge one place. Do not sit, drive, or instructor bridge one place for more than 30 minutes [...] pillow under your knees. ? Only take cxkg-cbe-vikvazv or prescription medicines as directed by your caregiver. Bgnm-ksr-fqagmle medicines to reduce pain and inflammation are [...] Document Reviewed: 07/26/2014 ExitCare? Patient Information ?2014 [employer]. This information is not intended to replace advice given to you by your health care provider. Make sure you discuss any questions you have with your health care provider. ELENA Bolden RUSSELL , have received the following patient education materials/instruction s and have verbalized understanding: Patient Education Materials: Radicular Pain; Back Pain, Adult Follow-up Instructions: With: Address: When: RENE MORRELL [address] [place] [id number] Operation Supply Drop (1) In 3 days 04/04/2018 Comments: Call [...] Signature Date Clinician/Nurse Signature Date 04/01/18 13:01:03 [facility] Progress Note-Nurseon 2017 Protein mass conc [...] No further needs at this time. Normal [facility] XR Spine Lumbosacral Minimum 4 Viewson [...] fracture. FINAL REPORT Dictated: 04/01/2018 12:36 pm Art PLEITEZ, Andreas Jj Signed (Electronic Signature): 04/01/2018 12:36 pm Signed by: Andreas Cordova MD Transcribed by: DARSHAN Technologist: DEAN Abebe [facility] Vital Signs Date Time Vital Sign Value Performing Clinician Facility 01-16-2024 07:45-0400 Body height 177.8 cm [facility] 01-16-2024 07:45-0400 Body mass index (BMI) [Ratio] 36.7 kg/m2 [facility] 01-16-2024 07:45-0400 Body weight 116.11 kg [facility] 01-16-2024 07:45-0400 Diastolic blood pressure 88 mm[Hg] [facility] 01-16-2024 07:45-0400 Heart rate 96 /min [facility] 01-16-2024 07:45-0400 SaO2% (BldA) [Mass fraction] 97 % [facility] 01-16-2024 07:45-0400 Systolic blood pressure 128 mm[Hg] [facility] 09-15-2023 10:19-0400 Body height 177.8 cm [facility] 09-15-2023 10:19-0400 Body mass index (BMI) [Ratio] 37.3 kg/m2 [facility] 09-15-2023 10:19-0400 Body weight 117.93 kg [facility] 09-15-2023 10:19-0400 Diastolic blood pressure 84 mm[Hg] [facility] 09-15-2023 10:19-0400 Heart rate 88 /min [facility] 09-15-2023 10:19-0400 SaO2% (BldA) [Mass fraction] 97 % [facility] 09-15-2023 10:19-0400 Systolic blood pressure 124 mm[Hg] [facility] 07-21-2023 07:59-0400 Body height 177.8 cm DO Maribeth Vuong Work Phone: [facility] 07-21-2023 07:59-0400 Body mass index (BMI) [Ratio] 40.1 kg/m2 DO Maribeth Vuong Work Phone: [facility] 07-21-2023 07:59-0400 Body weight 127 kg DO Maribeth Vuong Work Phone: [facility] 07-21-2023 07:59-0400 Diastolic blood pressure 86 mm[Hg] DO Maribeth Vuong Work Phone: [facility] 07-21-2023 07:59-0400 Heart rate 76 /min DO Maribeth Vuong Work Phone: [facility] 07-21-2023 07:59-0400 SaO2% (BldA) [Mass fraction] 98 % DO Maribeth Vuong Work Phone: [facility] 07-21-2023 07:59-0400 Systolic blood pressure 128 mm[Hg] DO Maribeth Vuong Work Phone: [facility] 01-17-2023 09:00-0400 Body height 177.8 cm Maribeth Carolann Other [email or web address] [facility] [employer] Other 01-17-2023 09:00-0400 Body mass index (BMI) [Ratio] 39.17 kg/m2 Maribeth Woodymer Other [employer] Other 01-17-2023 09:00-0400 Body temperature 97.7 [degF] Maribeth Vuong Other [employer] Other 01-17-2023 09:00-0400 Body weight 123.83 kg Maribeth Vuong Other [employer] Other 01-17-2023 09:00-0400 Diastolic blood pressure 78 mm[Hg] Maribeth Vuong Other [employer] Other 01-17-2023 09:00-0400 SaO2% (BldA) [Mass fraction] 98 % Maribeth Vuong Other [employer] Other 01-17-2023 09:00-0400 Systolic blood pressure 112 mm[Hg] Maribeth Vuong Other [employer] Other 12-18-2022 09:45-0400 Body height 177.8 cm Maribeth Vuong Other [employer] Other 12-18-2022 09:45-0400 Body mass index (BMI) [Ratio] 37.73 kg/m2 Maribeth Vuong Other [employer] Other 12-18-2022 09:45-0400 Body weight 119.3 kg Maribeth Vuong Other [employer] Other 12-18-2022 09:45-0400 Diastolic blood pressure 86 mm[Hg] Maribeth Vuong Other [employer] Other 12-18-2022 09:45-0400 Respiratory rate 18 /min Maribeth Vuong Other [employer] Other 12-18-2022 09:45-0400 SaO2% (BldA) [Mass fraction] 95 % Maribeth Vuong Other [employer] Other 12-18-2022 09:45-0400 Systolic blood pressure 126 mm[Hg] Maribeth Vuong Other [employer] Other 12-12-2022 08:00-0400 Body height 177.8 cm Maribeth Vuong Other [employer] Other 12-12-2022 08:00-0400 Body mass index (BMI) [Ratio] 37.73 kg/m2 Maribeth Vuong Other [employer] Other 12-12-2022 08:00-0400 Body temperature 98.5 [degF] Maribeth Vuong Other [employer] Other 12-12-2022 08:00-0400 Body weight 119.3 kg Maribeth Vuong Other [employer] Other 12-12-2022 08:00-0400 Diastolic blood pressure 102 mm[Hg] Maribeth Vuong Other [employer] Other 12-12-2022 08:00-0400 SaO2% (BldA) [Mass fraction] 96 % Maribeth Vuong Other [employer] Other 12-12-2022 08:00-0400 Systolic blood pressure 150 mm[Hg] Maribeth Vuong Other [employer] Other 09-26-2022 10:22-0400 Diastolic blood pressure 108 mm[Hg] DO Maribeth Vuong Work Phone: [facility] 09-26-2022 10:22-0400 Heart rate 74 /min DO Maribeth Vuong Work Phone: [facility] 09-26-2022 10:22-0400 Respiratory rate 16 /min DO Maribeth Vuong Work Phone: [facility] 09-26-2022 10:22-0400 SaO2% (BldA) [Mass fraction] 98 % DO Maribeth Vuong Work Phone: [facility] 09-26-2022 10:22-0400 Systolic blood pressure 156 mm[Hg] DO Maribeth Vuong Work Phone: [facility] 09-26-2022 08:26-0400 Body height 175.26 cm DO Maribeth Vuong Work Phone: [facility] 09-26-2022 08:26-0400 Body temperature 98.5 [degF] DO Maribeth Vuong Work Phone: [facility] 09-26-2022 08:26-0400 Body weight 113.39 kg DO Maribeth Vuong Work Phone: [facility] 09-11-2022 09:45-0400 Body height 177.8 cm Maribeth Vuong Other [email or web address] [facility] [employer] Other 09-11-2022 09:45-0400 Body mass index (BMI) [Ratio] 35.37 kg/m2 Maribeth Vuong Other [employer] Other 09-11-2022 09:45-0400 Body weight 111.81 kg Maribeth Carolann Other [employer] Other 09-11-2022 09:45-0400 Diastolic blood pressure 88 mm[Hg] Maribeth Vuong Other [employer] Other 09-11-2022 09:45-0400 Respiratory rate 18 /min Maribeth Vuong Other [employer] Other 09-11-2022 09:45-0400 SaO2% (BldA) [Mass fraction] 98 % Maribeth Vuong Other [employer] Other 09-11-2022 09:45-0400 Systolic blood pressure 142 mm[Hg] Maribeth Vuong Other [employer] Other 07-24-2022 10:30-0400 Body height 177.8 cm Igor Dominga Other [employer] Other 07-24-2022 10:30-0400 Body mass index (BMI) [Ratio] 35.58 kg/m2 Igor Castroovanner Other [employer] Other 07-24-2022 10:30-0400 Body weight 112.49 kg Igor Orr Other [employer] Other 07-24-2022 10:30-0400 Diastolic blood pressure 132 mm[Hg] Igor Scovanner Other [employer] Other 07-24-2022 10:30-0400 Systolic blood pressure 187 mm[Hg] Igor Scovanlucille Other [employer] Other 07-15-2022 12:15-0400 Body height 177.8 cm Maribeth Vuong Other [employer] Other 07-15-2022 12:15-0400 Body mass index (BMI) [Ratio] 35.58 kg/m2 Maribeth Vuong Other [employer] Other 07-15-2022 12:15-0400 Body temperature 98.1 [degF] Maribeth Vuong Other [employer] Other 07-15-2022 12:15-0400 Body weight 112.49 kg Maribeth Vuong Other [employer] Other 07-15-2022 12:15-0400 Diastolic blood pressure 110 mm[Hg] Maribeth Vuong Other [employer] Other 07-15-2022 12:15-0400 SaO2% (BldA) [Mass fraction] 97 % Maribeth Vuong Other [employer] Other 07-15-2022 12:15-0400 Systolic blood pressure 156 mm[Hg] Maribeth Vuong Other [employer] Other 01-04-2022 12:15-0400 Body height 177.8 cm Maribeth Vuong Other [employer] Other 01-04-2022 12:15-0400 Body mass index (BMI) [Ratio] 34.39 kg/m2 Maribeth Vuong Other [employer] Other 01-04-2022 12:15-0400 Body weight 108.73 kg Maribeth Vuong Other [employer] Other 01-04-2022 12:15-0400 Diastolic blood pressure 86 mm[Hg] Maribeth Vuong Other [employer] Other 01-04-2022 12:15-0400 Respiratory rate 18 /min Maribeth Vuong Other [employer] Other 01-04-2022 12:15-0400 SaO2% (BldA) [Mass fraction] 98 % Maribeth Vuong Other [employer] Other 01-04-2022 12:15-0400 Systolic blood pressure 136 mm[Hg] Maribeth Vuong Other [employer] Other 06-22-2021 10:00-0400 Body height 177.8 cm Maribeth Vuong Other [employer] Other 06-22-2021 10:00-0400 Body mass index (BMI) [Ratio] 34.16 kg/m2 Maribeth Vuong Other [employer] Other 06-22-2021 10:00-0400 Body weight 108 kg Maribeth Vuong Other [employer] Other 06-22-2021 10:00-0400 Diastolic blood pressure 78 mm[Hg] Maribeth Vuong Other [employer] Other 06-22-2021 10:00-0400 Respiratory rate 18 /min Maribeth Vuong Other [employer] Other 06-22-2021 10:00-0400 SaO2% (BldA) [Mass fraction] 95 % Maribeth Vuong Other [employer] Other 06-22-2021 10:00-0400 Systolic blood pressure 118 mm[Hg] Maribeth Vuong Other [employer] Other 03-08-2021 12:15-0500 Body height 177.8 cm Charles Solares Other [employer] Other 03-08-2021 12:15-0500 Body mass index (BMI) [Ratio] 33.72 kg/m2 Charles Solares Other [employer] Other 03-08-2021 12:15-0500 Body weight 106.6 kg Charles Solares Other [employer] Other 02-12-2021 11:00-0500 Body height 177.8 cm Maribeth Vuong Other [employer] Other 02-12-2021 11:00-0500 Body mass index (BMI) [Ratio] 33.37 kg/m2 Maribeth Vuong Other [employer] Other 02-12-2021 11:00-0500 Body temperature 98.3 [degF] Maribeth Vuong Other [employer] Other 02-12-2021 11:00-0500 Body weight 105.51 kg Maribeth Vuong Other [employer] Other 02-12-2021 11:00-0500 Diastolic blood pressure 88 mm[Hg] Maribeth Vuong Other [employer] Other 02-12-2021 11:00-0500 Respiratory rate 18 /min Maribeth Vuong Other [employer] Other 02-12-2021 11:00-0500 SaO2% (BldA) [Mass fraction] 99 % Maribeth Vuong Other [employer] Other 02-12-2021 11:00-0500 Systolic blood pressure 134 mm[Hg] Maribeth Vuong Other [employer] Other 02-01-2021 11:45-0400 Body height 177.8 cm Maribeth Vuong Other [employer] Other 02-01-2021 11:45-0400 Body mass index (BMI) [Ratio] 35.48 kg/m2 Maribeth Vuong Other [employer] Other 02-01-2021 11:45-0400 Body temperature 98.2 [degF] Maribeth Vuong Other [employer] Other 02-01-2021 11:45-0400 Body weight 112.18 kg Maribeth Carolann Other [employer] Other 02-01-2021 11:45-0400 Diastolic blood pressure 86 mm[Hg] Maribeth Carolann Other [employer] Other 02-01-2021 11:45-0400 Respiratory rate 18 /min Maribeth Carolann Other [employer] Other 02-01-2021 11:45-0400 SaO2% (BldA) [Mass fraction] 97 % Maribeth Craolann Other [employer] Other 02-01-2021 11:45-0400 Systolic blood pressure 136 mm[Hg] Maribeth Carolann Other [employer] Other Encounters Encounter Date Encounter Type Care Provider Facility Start: 01-16-2024 End: 01-16-2024 [facility] Work Phone: Start: 01-16-2024 End: 01-16-2024 Patient encounter procedure [facility] Work Phone: Start: 09-30-2023 End: 10-02-2023 Evaluation and management of inpatient Diaz Valdovinos MD Facility:[facility] Start: 09-25-2023 End: 09-25-2023 ambulatory Diaz Valdovinos MD Facility:[facility] Start: 09-15-2023 End: 09-15-2023 ambulatory [facility] Work Phone: Start: 09-15-2023 End: 09-15-2023 Patient encounter procedure [facility] Work Phone: Start: 09-10-2023 End: 09-10-2023 ambulatory Diaz Valdovinos MD Facility:[facility] Start: 07-21-2023 End: 07-21-2023 ambulatory DO Maribeth Vuong Work Phone: [facility] Work Phone: Start: 07-21-2023 End: 07-21-2023 Patient encounter procedure DO Maribeth Vuong Work Phone: [facility] [place] Work Phone: Start: 06-03-2023 End: 06-03-2023 ambulatory Nisha Villanueva Facility:[facility] Start: 06-03-2023 End: 06-03-2023 Patient encounter procedure DO Maribeth Vuong Work Phone: [facility] [place] [facility] Work Phone: Start: 05-29-2023 Non-patient / Non-visit DO Maribeth Vuong Work Phone: [facility] Physician [facility] [employer] Work Phone: Start: 03-13-2023 End: 03-13-2023 ambulatory Maribeth Vuong Other [facility] [employer] Other Start: 03-13-2023 Telephone encounter Maribeth Vuong Sylvie [place] [facility] Start: 02-05-2023 End: 02-05-2023 ambulatory Maribeth Vuong Other [facility] [employer] Other Start: 02-05-2023 Telephone encounter Maribeth Carolann [facility] [place] Start: 01-17-2023 End: 01-17-2023 ambulatory Maribethwaldo Vuong Other [facility] [employer] Other Start: 01-17-2023 Encounter for genera l adult medical examination without abnormal findings Maribeth Vuong [facility] [place] Start: 01-17-2023 Periodic preventive med est patient 40-64yrs Maribeth Vuong [facility] [place] Start: 12-18-2022 (Procedure) Short Maribeth Vuong [facility] [place] Start: 12-18-2022 End: 12-18-2022 ambulatory Maribeth Vuong Other [employer] Other Start: 12-12-2022 End: 12-12-2022 ambulatory Maribeth Vuong Other [employer] Other Start: 12-12-2022 Office outpatient visit 15 minutes Maribeth Vuong [facility] [place] Start: 12-05-2022 End: 12-05-2022 ambulatory Maribeth Vuong Other [employer] Other Start: 12-05-2022 Telephone encounter Maribeth Carolann Sylvie [facility] [place] Start: 09-28-2022 End: 09-28-2022 ambulatory Nash Cardenas Other [employer] Other Start: 09-28-2022 Telephone encounter Nash Cardenas [facility] Start: 09-26-2022 End: 09-26-2022 Admission to same day surgery center DO Maribeth Vuong Work Phone: [facility] Work Phone: Start: 09-26-2022 End: 09-26-2022 ambulatory DO Maribeth Vuong Work Phone: [facility] Work Phone: Start: 09-11-2022 (Procedure) Oralia Vuong [facility] [place] Start: 09-11-2022 End: 09-11-2022 ambulatory Maribeth Vuong Other [employer] Other Start: 09-10-2022 End: 09-10-2022 ambulatory Maribeth Vuong Other [employer] Other Start: 09-10-2022 Telephone encounter Maribeth Mercer [facility] [place] Start: 09-03-2022 End: 09-03-2022 ambulatory NARENDRANATH LAKSHMIPATHY . Facility:[facility] Start: 08-20-2022 End: 08-20-2022 ambulatory DO Maribeth Vuong Work Phone: [facility] Work Phone: Start: 08-20-2022 End: 08-20-2022 Patient encounter procedure DO Maribeth Vuong Work Phone: [facility]-Physical [facility] [address] Start: 08-16-2022 End: 08-17-2022 ambulatory NARENDRANATH LAKSHMIPATHY . Facility:[facility] Start: 08-02-2022 End: 08-02-2022 ambulatory Maribeth Vuong Other [employer] Other Start: 08-02-2022 Telephone encounter Maribeth Mercer [facility] [place] Start: 07-30-2022 End: 07-30-2022 ambulatory NARENDRANATH LAKSHMIPATHY . Facility:[facility] Start: 07-24-2022 End: 07-24-2022 ambulatory Igor Orr Other [employer] Other Start: 07-24-2022 Office outpatient ne w 30 minutes Igor Orr [facility] G[facility] Start: 07-23-2022 End: 07-24-2022 ambulatory NARENDRANATH LAKSHMIPATHY . Facility:[facility] Start: 07-16-2022 End: 07-16-2022 ambulatory Maribeth Vuong Other [employer] Other Start: 07-16-2022 Telephone encounter Maribeth Mercer [facility] [place] Start: 07-15-2022 Office outpatient visit 25 minutes Maribeth Vuong [facility] [place] Start: 07-15-2022 Telephone encounter Maribeth Vuong [facility] Start: 07-15-2022 End: 07-15-2022 ambulatory DO Maribeth Vuong Work Phone: [employer] Other Start: 07-15-2022 End: 07-15-2022 Patient encounter procedure DO Maribeth Vuong Work Phone: [facility] Start: 07-12-2022 End: 07-12-2022 ambulatory DO Maribeth Vuong Work Phone: [facility] Work Phone: Start: 07-12-2022 End: 07-12-2022 Patient encounter procedure DO Maribeth Woodymer Work Phone: [facility] [place] Work Phone: Start: 07-02-2022 End: 07-03-2022 ambulatory [...] 01-04-2022 End: 01-04-2022 ambulatory Maribeth Vuong Other [employer] Other Start: 01-04-2022 Encounter for genera l adult medical examination without abnormal findings Maribeth Vuong [facility] Start: 01-04-2022 Periodic preventive med est patient 40-64yrs Maribeth Vuong [facility] [place] Start: 12-13-2021 End: 12-14-[address] JESSICA JOEL . Facility:[facility] Start: 10-31-2021 End: 11-01-[address] JESSICA JOEL . Facility:[facility] Start: 10-03-2021 End: 10-04-2021 ambulatory BRIT SCHUSTER . Facility:[facility] Start: 09-29-2021 End: 09-29-2021 ambulatory MARIBETH VUONG Facility:[facility] Start: 08-17-2021 End: 08-17-2021 ambulatory Charles Solares Other [employer] Other Start: 08-17-2021 Telephone encounter Charles Solares [facility] [place] Start: 08-07-2021 End: 08-07-2021 ambulatory Charles Solares Other [employer] Other Start: 08-07-2021 Telephone encounter Charles Solares [facility] Start: 07-13-2021 End: 07-13-2021 ambulatory Maribeth Vuong Other [employer] Other Start: 07-13-2021 Telephone encounter Maribeth Vuong [facility] [place] Start: 07-09-2021 End: 07-09-2021 ambulatory Charles Solares Other [employer] Other Start: 07-09-2021 Office outpatient visit 25 minutes Charles Solares [facility] [place] Start: 06-22-2021 End: 06-22-2021 ambulatory Maribeth Vuong Other [employer] Other Start: 06-22-2021 Office outpatient visit 15 minutes Maribeth Vuong [facility] [place] Start: 06-06-2021 End: 06-06-2021 ambulatory Charles Solares Other [employer] Other Start: 06-06-2021 Office outpatient visit 25 minutes Charles Felter [facility] [place] Start: 05-29-2021 End: 05-29-2021 ambulatory Maribeth Vuong Other [employer] Other Start: 05-29-2021 Telephone encounter Maribeth Mercer [facility] [place] Start: 05-22-2021 End: 05-22-2021 ambulatory Maribeth Vuong Other [employer] Other Start: 05-22-2021 Telephone encounter Maribeth Mercer [facility] [place] Start: 05-21-2021 End: 05-21-2021 ambulatory Maribeth Vuong Other [employer] Other Start: 05-21-2021 Telephone encounter Maribeth Mercer [facility] [place] Start: 05-08-2021 End: 05-08-2021 ambulatory Charles Hernandezer Other [employer] Other Start: 05-08-2021 Office outpatient visit 25 minutes Charles Felter [facility] [place] Start: 04-12-2021 End: 04-12-2021 ambulatory Charles Felter Other [employer] Other Start: 04-12-2021 Office outpatient visit 25 minutes Charles Felter [facility] [place] Start: 03-08-2021 End: 03-08-2021 ambulatory Charles Felter Other [employer] Other Start: 03-08-2021 Office outpatient visit 25 minutes Charles Felter [facility] [place] Start: 02-28-2021 End: 02-28-2021 ambulatory Maribeth Vuong Other [employer] Other Start: 02-28-2021 Telephone encounter Maribeth Mercer [facility] [place] Start: 02-12-2021 End: 02-12-2021 ambulatory Maribeth Vuong Other [employer] Other Start: 02-12-2021 Office outpatient visit 15 minutes Maribeth Woodymer [facility] [place] Start: 02-05-2021 Office outpatient visit 25 minutes Charles Solares [facility] [place] Start: 02-01-2021 Office outpatient visit 15 minutes Maribeth Carolann [facility] [place] Start: 01-08-2021 Office outpatient visit 25 minutes Charles Solares [facility] [place] Start: 06-09-2018 End: 06-10-2018 Patient encounter procedure PHI CAD[facility]SURENDRA [facility] Start: 04-01-2018 End: 04-01-2018 Emergency department patient visit Lashay Li Facility:[facility] Procedures Date Procedure Procedure Detail Performing Clinician Start: 06-03-2023 Plain X-ray of left hand DO Maribeth Vuong Work Phone: Start: 09-26-2022 Colonoscopy DO Maribeth Vuong Work Phone: Start: 07-15-2022 Diagnostic radiograp hy of abdomen DO Maribeth Vuong Work Phone: Plan of Treatment Date Care Activity Detail Author Start: 09-26-2022 [facility] Patient Education Hemorrhoids (DC) [facility] Work Phone: [facility] Immunizations Immunization Date Immunization Notes Care Provider Macrina brunson 12-07-2020 COVID-19 Vaccine Corey - Documentation Purposes Only Charles Solares Other [facility] 03-25-2019 Depo-Medrol 80 mg Charles lewis Other [employer] Other 12-11-2017 Kenalog -40 mg Charles Solares Other [employer] Other 05-12-1997 diphtheria and tetan us toxoids, adsorbed for pediatric use [facility] Payers Date Payer Category Payer Unknown 2023 Self-pay [id number] 1980 Unknown [id number] 2.16.84 0.1.996339.3.579.2.727 1979 Unknown [id number] 2.16.84 0.1.422147.3.579.2.593 1979 Unknown [id number] 2.16.84 0.1.225270.3.579.2.593 1979 Unknown [id number] 2.16.84 0.1.614318.3.579.2.593 1979 Unknown [id number] 2.16.84 0.1.593319.3.579.2.593 1979 Unknown [id number] 2.16.84 0.1.715451.3.579.2.593 1979 Unknown [id number] 2.16.84 0.1.598782.3.579.2.593 1979 Unknown [id number] 2.16.84 0.1.560196.3.579.2.593 1979 Unknown [id number] 2.16.84 0.1.124711.3.579.2.593 1979 Unknown [id number] 2.16.84 0.1.983777.3.579.2.593 1979 Unknown [id number] 2.16.84 0.1.664995.3.579.2.593 1979 Unknown [id number] 2.16.84 0.1.625033.3.579.2.593 1979 Unknown [id number] 2.16.84 0.1.160362.3.579.2.593 1979 Unknown [id number] 2.16.84 0.1.421222.3.579.2.593 1979 Unknown [id number] 2.16.84 0.1.143562.3.579.2.593 1979 Unknown [id number] 2.16.84 0.1.449723.3.579.2.593 1979 Unknown [id number] 2.16.84 0.1.306075.3.579.2.593 1979 Unknown [id number] 2.16. 840.1.344705.3.579.2.196 1979 Unknown [id number] 2.16. 840.1.333890.3.579.2.196 1979 Unknown [id number] 2.16. 840.1.588585.3.579.2.196 1960 Medicaid [id number] 1959 Unknown [id number] 1959 Unknown [id number] [facility] [id number] 2.16.840.1.017242.19 Unknown [id number] Unknown [id number] 2.16.8 40.1.230493.3.579.2.531 Social History Date Type Detail Facility Unknown if ever smoked [email or web address] [facility] [employer] Other Sex Assigned At Sex Assigned At [facility] th [employer] Other Start: 04-13-2019 Tobacco smoking status [facility] Smoker (finding) [facility] Start: 1980 Sex Assigned At Male F [facility] Start: 09-26-2022 Tobacco smoking status [facility] Current some day smoker [facility] Start: 01-16-2024 Tobacco smoking status [facility] Ex-smoker (finding) [facility] Goals Date Patient Goal Desired [...] Vishal PLEITEZ, Homar Mayers 10/02/23 05:07 EDT [facility] 09-30-2023 Note Operative Report DATE OF [...] [employer]cc [employer] SURGEON: Diaz Valdovinos MD [employer] SPECIALIST: MAGGIE Duran PA-C assisted throughout the procedure [...] dural tear, nerve root injury, nonunion, DVT/PE, MT, stroke, etc. All questions were answered. Informed [...] monitoring remained stable (more content not included)... [facility] 09-29-2023 Note Chief Complaint Back pain History of Present Illness The patient is a 42-year-old male with complaints of constant low back pain that radiates to shooting pain into his buttocks and perineal region, he did have pain radiating down the posterior legs but had a RFA in February, which helped with his shooting pain. He also has burning and xdsy-zef-kxsfiba along the right lateral foot and toes. [...] CT and MRI Lumbar Spine done at [place] Electronically signed by Qamar Recio PA-C 09/29/23 09:58 EDT Electronically signed by Diaz Valdovinos MD 09/30/2023 09:41 EDT [facility] 03-13-2023 Evaluation note Encounter Date Diagnosis Assessment Notes Mar, Primary osteoarthritis of both first carpometacarpal joints (ICD-10 - M18.0) [employer] Other 11-01-2023 Evaluation note* Encounter Date Diagnosis Assessment Notes Treatment Notes Treatment Clinical Notes Feb, Primary hypertension (ICD-10 - I10) [employer] Other 10-13-2023 Evaluation note* Encounter Date Diagnosis [...] Jan, Medication monitoring encounter (ICD-10 - Z51.81) [employer] Other 09-13-2023 Evaluation note* Encounter Date Diagnosis Assessment Notes Treatment Notes Treatment Clinical Notes Dec, Primary osteoarthrit is of first carpometacarpal joint of left hand (ICD-10 - M18.12) [employer] Other 09-07-2023 Evaluation note* Encounter Date Diagnosis [...] he has any issues with the medicine. [employer] Other 06-22-2023 [facility]* Encounter Date Diagnosis Assessment Notes Treatment Notes Treatment Clinical Notes Sep, Primary osteoarthrit is of both first carpometacarpal joints (ICD-10 - M18.0) [employer] Other 04-19-2023 Evaluation note* Encounter Date Diagnosis [...] colonoscopy to rule out luminal etiologies made [employer] Other 04-18-2023 NoteCONSULTATION CONSULTATION DATE: 07/23/2022 TO: [...] our patients to inform us about any izpa-saj-afpmyjv medications or herbal remedies/nutritional supplements/alternative remedies. 2. [...] treatment options with their primary care provider.[facility]ozhtapv16-[facility]-2954 Evaluation note * Encounter Date Diagnosis Assessment Notes Treatment Notes Treatment Clinical Notes Jul, Generalized abdominal pain (ICD-10 - R10.84) [employer] Other 04-10-2023 Evaluation note* Encounter Date Diagnosis [...] Jul, Medication monitoring encounter (ICD-10 - Z51.81) [employer] Other 04-10-2023 Evaluation note* Encounter Date Diagnosis Assessment Notes Treatment Notes Treatment Clinical Notes Jul, Slow transit constipation (ICD-10 - K59.01) [employer] Other 03-28-2023 NoteCONSULTATION CONSULTATION DATE: 07/02/2022 TO: [...] as well as his lumbar spine films.[facility] [id number] Note CONSULTATION CONSULTATION DATE: 06/13/2022 HISTORY OF [...] relief. He has been seen both at [place] and [place] [facility] in the past, and received [...] under the care of Dr. Joshua in [place]. He is unwilling to try Lyrica due [...] Patient is in agreement to this plan.[facility] HospitalHkwmnsnl86-59-2739 NoteCONSULTATION CONSULTATION DATE: 03/14/2022 HISTORY OF PRESENT [...] in three months' time, unless otherwise indicated.[facility] [id number] NoteCONSULTATION CONSULTATION DATE: 02/07/2022 HISTORY OF PRESENT [...] followed up in the office post procedure.[facility] HospitalQcsureax99-86-7696 Evaluation note* Encounter Date Diagnosis Assessment Notes [...] Dec, Prostate cancer screening (ICD-10 - Z12.5) [employer] Other 09-08-2022 NoteCONSULTATION CONSULTATION DATE: 12/13/2021 HISTORY [...] of care and all questions were answered.[facility] HospitalLjvovkfo95-95-2382 Note CONSULTATION PROCEDURE DATE: 10/31/2021 PREOPERATIVE DIAGNOSIS: [...] will be followed up in the office.[facility] HospitalZzcmrtet29-72-6414 Note CONSULTATION CONSULTATION DATE: 10/03/2021 This is [...] and will be seen in the clinic. [facility] Signed and Approved by: BRIT SCHUSTER . 10/11/2021 16:28:00[facility]04-04-2022 Evaluation note* Encounter Date Diagnosis [...] in this. Patient notes prior issues with [facility] billing department and states he is uncomfortable [...] note writ ten by Km Cervantes MA, [employer] Operator. Edited and approved by Dr. Charles Solares MD. [employer] Other 03-18-2022 Evaluation note* Encounter Date Diagnosis [...] and he is to continue with it. [employer] Other 03-02-2022 Evaluation note* Encounter Date Diagnosis [...] note writ ten by Km Cervantes CMA, [employer] Operator. Edited and approved by Dr. Charles Solares MD. [employer] Other 02-15-2022 Evaluation note* Encounter Date Diagnosis Assessment Notes Treatment Notes Treatment Clinical Notes May, Cigarette nicotine dependence without complication (ICD-10 - F17.210) [employer] Other 02-14-2022 Evaluation note* Encounter Date Diagnosis Assessment Notes Treatment Notes Treatment Clinical Notes May, Other spondylosis with radiculopathy, lumbar region (ICD-10 - M47.26) [employer] Other 02-01-2022 Evaluation note* Encounter Date Diagnosis [...] was refilled today. Saliva sample performed through [facility] today, will await confirmatory results. [employer] contract updated at this time. May, Other chronic pain (ICD-10 - G89.29) May, Other Above note writ ten by Sonya Dawson LPN, [employer] Operator. Edited and approved by Dr. Charles Solares MD. [employer] Other 01-06-2022 Evaluation note* Encounter Date Diagnosis [...] note writ ten by Km Cervantes CMA, [employer] Operator. Edited and approved by Dr. Charles Solares MD. [employer] Other 12-02-2021 Evaluation note* Encounter Date Diagnosis [...] Above note written by Sonya Dawson LPN, [employer] Operator. Edited and approved by Dr. Charles Solares MD. [employer] Other 11-08-2021 Evaluation note* Encounter Date Diagnosis [...] Patient voiced understanding agrees with this plan. [employer] Other 11-01-2021 Evaluation note* Encounter Date Diagnosis [...] note writ ten by Donita Henson CMA, [employer] Operator. Edited and approved by Dr. Charles Solares MD. [employer] Other 10-28-2021 Evaluation note* Encounter Date Diagnosis [...] message to Dr. Solares passing this along. [employer] Other 10-04-2021 Evaluation note* Encounter Date Diagnosis [...] educated regarding the risks and benefits of retirement opioid use. He understands the associated risks with this medication and agrees that it provides reasonable benefit in regards to his pain control and level of function. Oxycodone Acetaminophen was refilled today. Jan, Other chronic pain (ICD-10 - G89.29) [employer] Other Evaluation noteNo [employer] Other Evaluation noteNo assessment information available [facility] Work Phone: Evaluation note* Diagnosis Onset Date Resolution Status Osteoarthritis of carpometac arpal joint of left thumb acute Primary osteoarthritis, left hand acute BPH (benign prostatic hyperplasia) chronic Hemorrhoid chronic Other spondylosis with radiculopathy, lumbar region chronic Blood present in stool nonea [facility] Work Phone: Evaluation note* Diagnosis Onset Date Resolution Status BPH (benign prostatic hyperplasia) chronic Hemorrhoid chronic Other spondylosis with radiculopathy, lumbar region chronic Blood present in stool nonea ctive Other spondylosis with radiculopathy, lumbar region chronic Preoperative clearance nonea [facility] Work Phone: Evaluation note* Diagnosis Onset Date Resolution Status BPH (benign prostatic hyperplasia) chronic 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 Erectile dysfunction due to diseases classified elsewhere chronic HTN (hypertension) chronic Other spondylosis with radiculopathy, lumbar region chronic Well adult noneactive [facility] Work Phone: History and physical note Author Nash Cardenas [facility] September 26, 2022 9:39am Note Date/Time September 26, 2022 9:39 am [facility] [address] [place] [address] Gastroenterology H&P Signed Patient: Neal Parker MR#: [id number] : 1980 Acct:[id number] Age/Sex: 41 / M Adm Date: 3 Loc: Room: Type: [facility] Attending Dr: Nash Cardenas MD Copies to: [...] Cardenas MD Documented By: Nash Cardenas MD 09/26/2265 Signed By: <Electronically signed by Nash Cardenas MD> 09/26/2239 [facility] Work Phone: Hisfolu general Narrative - Reported* Type Description Date Medical History Hx spinal fusion Medical History Lumbar radiculopathy Medical History Trigger point Surgical History L5 S1 fusion 2014 Surgical History Left lower leg surgery (multipl e fractures) Surgical History foreign body excision right mid dle finger Hospitalization History pneumonia as [facility] Other [facility] general Narrative - Reported* Type Description Date Medical History Hx spinal fusion Medical History Lumbar radiculopathy Medical History Trigger point Surgical History L5 S1 fusion 2014 Surgical History Left lower leg surgery (multipl e fractures) Surgical History foreign body excision right mid dle finger Surgical History lumbar facet nerve b lock injection - Dr. Saldivar in [place] 11/2022 Hospitalization History pneumonia as [facility] Other Hisrszp general Narrative - Reported* Type Description Date Medical History Hx spinal fusion Medical History Lumbar radiculopathy Medical History Trigger point Surgical History L5 S1 fusion 2014 Surgical History Left lower leg surgery (multipl e fractures) Surgical History foreign body excision right mid dle finger Surgical History lumbar facet nerve b lock injection - Dr. Saldivar in [place] 11/2022 Surgical History R side nerve ablation 01/2023 Hospitalization History pneumonia as child [employer] Other Hospital Discharge instructions Additional Instructions DISCHARGE [...] NOT operate machinery such as power tools, [employer] mowers, Footbalisticwers, sewing machines, etc. for 24 hours. - [...] years. -Follow up with PCP. -Office number [phone].[facility] Work Phone: Hospital Discharge instructionsAmbulatory Orders* Disability Placard Time Frame: 01/16/24, Location: Determined By Patient [facility] Work Phone: Reason for visit NarrativePatient here at the request of Dr. Vuong for evaluation & treatment of abdominal pain, change in bowel habits, weight loss, rectal bleeding.[employer] Other Reason for visit NarrativeProcedure appt and DNR-A [facility] [employer] Other Summary Purpose Family History Relationship Condition [...] Reason for Referral Reason Dr. Villanueva to [facility] surgical options, steroid injections not providing long lasting benefit Diagnosis 1 Primary osteoarthrit is of both first carpometacarpal joints (M18.0) Referral Organization [facility] Family Nisha Santos Referring Provider First Name Maribeth Referring Provider Last Name Carolann Referring Provider Specialty Family Prac patito Referred Organization [facility] Ortho pedics Referred Address [address], [place],[address] Referred Provider Specialty ORTHOPEDIC S URGEON Referral Priority Routine Reason * Waiting for appt CT and KUB normal, generalized pain of unclear etiology Diagnosis 1 Generalized abdomina l pain (R10.84) Referral Organization [facility] Family Nisha Santos Referring Provider First Name Maribeth Referring Provider Last Name Carolann Referring Provider Specialty Family Prac patito Referred Organization [facility] Gastroenterolo gy Referred Provider Dwayne Salas Referred Address [address] ,[place], [place],[address] Referred Provider Specialty Gastroentero logy Referral Priority [...] Referral Organization [facility] Family Nisha Santos Referring Provider First Name Maribeth Referring Provider Last Name Carolann Referring Provider Specialty Family Prac patito Referred Organization [facility] Referred Address [address],[place], [place],[address] Referred Provider Specialty Pain Medicin e Referral Priority Routine General Notes Rebeca Vivar 11:08:53 AM >referral received and faxed Clinical Notes P- [phone] Chief Complaint and Reason for Visit Chief [...] spondylosis with radiculopathy, lumbar region Preoperative clearance Chief Complaint AWV Reason for Visit BPH (benign prostati c hyperplasia) Cigarette nicotine dependence in remission Erectile dysfunction due to diseases classified elsewhere HTN (hypertension) Other spondylosis with radiculopathy, lumbar region Well adult Additional Source Comments (unrecognized sect ion and content) No Status Records FoundNo Status Records FoundNo Status Records FoundNo Status Records FoundNo Status Records Found INFORMATION SOURCE (unrecogn ized section and content) DATE CREATED AUTHOR 05/25/2018 [facility] [employer] [facility] DATE CREATED AUTHOR AUTHOR'S ORGANIZ ATION 06/11/2018 [facility] DATE CREATED AUTHOR AUTHOR'S ORGANIZ ATION 09/15/2022 [facility] DATE CREATED AUTHOR AUTHOR'S ORGANIZ ATION 10/31/2023 [facility] DATE CREATED AUTHOR AUTHOR'S ORGANIZ ATION 01/17/2024 [facility] REASON FOR VISIT (unrecogniz ed section and content) 1 [place] pain getting worse, pain management not working4 WK RECHECKDISCUSS DISABILITY OPTIONSLab results1 MO1 MONTH RECHECKCHANTIX1 month Follow upscript requestpaperwork1 MONTH FOLLOW UPCHANTIX refill/discuss back concerns1 MONTHNo InformationNo InformationPROCEDURE NOTES1 year Follow up/ AWVAbdominal Pain/ incontinencenew medication.ReferralPain ManagementB/L thumb steroid inj./ sign DNR-AORDERS PER DR Casanovaated bpelevated BP at PM in [place], no sxinjection L thumb1 year Follow upLosartan/HCTZsteroid [...] Cardenas MD Attending Provider Active Team Status: Inactive Member Role Status Dates Maribeth Vuong DO Primary Care Provi aisha, Attending Provider Active Start: January 16, 2024 End: January 16, 2024 Goals (unrecognized section and content) Goals may [...] BE BASED ON THE PRIMARY CLINICAL RECORDS. [facility]. provides no warranty or guarantee of the accuracy or completeness of information in this document.
--- NOTE | 2024-01-29 09:05 | P.CN_ITS ---
Consult Note: HPI Data of Consult Patient: known to practice within the last 3 years Requesting Physician: Brianna Wallace NP Primary Care Provider: MARIBETH VUONG Consult Narrative Reason for consult: f/u Narrative: Pedro Pablo Irene a pleasant 42 year old male presents for evaluation and management of chronic back pain and neck pain. Patient has had chronic low back pain greater than 10 years and was denied surgery by previous NS, however recently we referred him to Dr Pérez who performed lumbar fusion 09-30-23 with >90% improvement in pain and functional ability ongoing per patient, wonderful outcomes. Patient continues to utilize PRN tylenol, PRN flexeril, and lyrica 50mg BID with significant improvement. Overall continues to have moderate to severe neck and joint pain, has stopped mobic since pre-surgery per Dr Pérez recommendation. Patient reports neck pain 4/10 today increasing to 9/10 with bilateral numbness tingling of upper extremities. Recent left and tight T4/5 T5/6 RFA providing 100% improvement of thoracic pain ongoing. recent xray of cervical spine unremarkable. cc:: CC: Brianna Wallace NP Review of Systems ROS Status of ROS 10 or more systems reviewed and unremark able except as noted in history and below Musculoskeletal Reports: back pain and neck pain PFSH PFSH Medical History Fracture of left lower leg ?S82.92XA - Unspecified fracture of left lower leg, initial encounter for closed fracture (ICD-10) Upper back pain ?M54.9 - Dorsalgia, unspecified (ICD-10) Neck pain ?M54.2 - Cervicalgia (ICD-10) Low back pain ?M54.50 - Low back pain, unspecified (ICD-10) Former smoker ?Z87.891 - Personal history of nicotine dependence (ICD-10) Surgical History S/P lumbar spine operation ?Z98.890 - Other specified postprocedural states (ICD-10) Meds Home Medications and Allergies Home Medications ?Medication ?Instructions ?Recorded ?Confirmed ?Type acetaminophen 500 mg tablet 1,000 mg PO Q6H 09/13/22 09/09/23 History (Tylenol Extra Strength) diphenhydramine HCl 25 mg tablet 50 mg PO DAILY 09/13/22 09/09/23 History (Allergy (diphenhydramine)) meloxicam 15 mg tablet 15 mg PO DAILY 09/13/22 09/09/23 History losartan 50 mg-hydrochlorothiazide tab 01/07/23 History 12.5 mg tablet cyclobenzaprine 10 mg tablet 10 mg PO TID PRN muscle spasm #80 01/22/23 09/09/23 Rx tabs tramadol 50 mg tablet 50 mg PO BID 08/26/23 09/09/23 History Allergies Allergy/AdvReac Type Severity Reaction Status Date / Time gabapentin AdvReac Severe Dizziness Verified 09/09/23 07:22 zonisamide (From Zonegran) AdvReac Intermediate Nausea Verified 09/09/23 07:22 Exam Constitutional Documenting provider has reviewed patient's vital signs: yes Common normals: no apparent distress, oriented x3, healthy appearing, alert and well nourished General appearance: cooperative HENMO Common normals: normocephalic, hearing grossly normal bilaterally and moist oral mucous membranes Head and scalp: normocephalic Eye Common normals: PERRL Pupil: PERRL Neck & C-Spine Common normals: full ROM General: normal visual inspection Cervical spine: cervical ROM normal, pain with cervical ROM, cervical spine tenderness and paracervical muscle tenderness Other: negative sprulings strength 5/5 in BUE intermittent numbness tingling weakness of bilateral arms and hands Chest Common normals: inspection of chest normal Respiratory Common normals: normal respiratory effort, no retractions and no use of accessory muscles Back & Pelvis Thoracic spine/upper back: normal to inspection and thoracic ROM normal Other: lumbar bracing present post surgery strength 5/5 in BLE no radiculopathy on exam Extremity Common normals: normal to inspection and full ROM Neuro Common normals: oriented x3, CN's II-XII intact bilaterally, moves all extremities, no focal motor deficits, no sensory deficits noted and deep tendon reflexes 2+ bilaterally Sensorium/orientation: alert Gait (neuro): assistive device used cane Motor exam: strength 5/5 throughout and no movement abnormalities noted Psych Common normals: mental status grossly normal, thought process normal, cooperative, affect normal, speech normal and activity/motor behavior normal Speech: normal speech Thought process: normal thought process Results Additional Findings Additional findings: If on a controlled substance or opioids, I have checked an [place]AR[place] report on this patient and there are no aberrancies noted in the prescribing history.??If on a controlled substance or opioid a drug screen was completed and reviewed within the last year, and if there has not been a drug screen completed we ordered one today to monitor higher risk, state monitored pain medication use. As part of providing excellent, safe, comprehensive care, the following was completed at our patient's visit: 1. A medication reconciliation and review to ensure accurate knowledge of current/active medications, including asking our patients to inform us about any [id number] medications or herbal remedies/nutritional supplements/alternative remedies. 2. A review to specifically ensure our patients have had annual screening for screening for depression, screening for tobacco use, and screening for unhealthy alcohol use. For concerning screenings had a discussion with the patient, provided patient education, and recommended follow-up with primary care provider when appropriate. If patient noted with a risk of falling, they received education on strength, gait, and balance training to prevent future risk of falling. Assessment and Plan Assessment and Plan (1) Thoracic spondylosis: (2) Cervical spondylosis: (3) Cervical radiculopathy: (4) Lumbar stenosis with neurogenic claudication: (5) Lumbar radiculopathy: (6) Status post lumbar spinal fusion: (7) Muscle spasm: (8) Lumbar spondylosis: (9) Marijuana use: Assessment and Plan: NNCP Plan cervical xray reviewed with pt and unremarkable left and right T4-5 T5-6 facet medial branch thermal RFA providing significant relief ongoing continue current medications, tolerating well without side effects continue f/u with Dr Pérez, excellent recovery at this time f/u 3 months, sooner if needed
== END 2024-01-29 08:30 | disposition home or self-care (01) ==
LOC: PM 08:29
PROVIDERS: Visit Provider Nurse Practitioner
DX: M47.814 Spondylosis without myelopathy or radiculopathy, thoracic region (principal); M47.812 Spondylosis without myelopathy or radiculopathy, cervical region; M54.12 Radiculopathy, cervical region; M48.062 Spinal stenosis, lumbar region with neurogenic claudication; M54.16 Radiculopathy, lumbar region; M43.26 Fusion of spine, lumbar region; M62.838 Other muscle spasm; M47.816 Spondylosis without myelopathy or radiculopathy, lumbar region; Z79.899 Other long term (current) drug therapy
CPT/HCPCS: G0463

== ENCOUNTER 2024-03-12 08:41 | Outpatient (OUT) | payer OTHER, SELFPAY ==
--- NOTE | 2024-03-12 | XR_ITS ---
[address] [address] Patient Name: NEAL PARKER MRN: [id number] date: 1980 Sex: M Assigned Patient Location: Current Patient Location: Accession/Order Number: [id number] Exam Date: 03/12/2024 08:57 Report Date: 03/13/2024 06:54 At the request of: ANTONIO RAPHAEL Procedure: XR lumbar spine min 4V EXAMINATION: XR lumbar spine min 4V HISTORY: LUMBAR SPINE PAIN COMPARISON: XR lumbar spine 12/18/2023 FINDINGS: BONES: Mechanical fusion L5-S1 via bilateral pedicle screws and rods; no appreciable hardware fracture loosening. Stable grade 1 anterior listhesis of L5 on S1. No appreciable change in alignment of the lumbar spine during flexion and extension. Posterior decompression of L5. DISC SPACES: Intervertebral spacer L5-S1. Mild narrowing L2-L3, L3-L4, L4-L5. PARASPINOUS: Negative. No paraspinous abnormality is seen. OTHER: Negative. XR/XR lumbar spine min 4V IMPRESSION: 1. Stable surgical changes without is of hardware failure or change in alignment. 2. Multilevel mild degenerative disc disease. 3. No change in alignment during flexion and extension. Electronically authenticated by: DAMARIS ESPINOSA Date: 03/13/2024 06:54
--- OUTSIDE RECORDS SUMMARY | 2024-03-12 08:46 | XMS_ITS | CCD ---
Author Organization [facility] Care Team Providers Care Oncology Nurse Navigator Name Role Phone Lashay Li Admitting Unavailable [...] Unavailable LAKSHMIPATHY ., NARENDRANATH Attending Jessy vailable LAKSHMIPATHIvory ., NARENDRANATH Admitting Jessy vailable CAROLANN, MARIBETH [...] LAKSHMIPATHY ., NARENDRANATH Admitting Jessy vailable CAROLANN, [facility] Primary Care Unavailable LAKSHMIPATHY ., NARENDRANATH [...] Consulting Unavailable MD Nash Cardenas Attending Provider [phone] YoditGerman najeran Unavailable DO Maribeth Vuong Primary Care Provider MD Nisha Villanueva Attending Provider [phone] Diaz Valdovinos MD Attending Diaz Wilson MD Admitting Unavailmary Rodgers MD, Homar Mayers Consulting Unavail able Maribeth Vuong DO Primary Care Qamar Obrien Consulting Unavailable Diaz Valdovinos MD Attending Maribeth Aponte DO Primary Care Diaz Armenta MD Attending Maribeth Aponte DO [facility] Nisha Santamaria Attending Unavailable Nisha Villanueva Admitting Unavailable Maribeth Vuong Primary Care Unavailable Maribeth Vuong Primary Care Unavailable Nisha Villanueva Attending Unavailable Nisha Villanueva Admitting Unavailable Allergies Allergy Classification Reported Allergen(s) Allergy Type Date of Onset Reaction(s) Facility (20 sources) gabapentin; Translations: [gabapentin] Drug Allergy 3 dizziness, sleepy, Drowsy, Drowsy, dizziness, sleepy [facility] (1 source) gabapentin Drug Allergy [facility] Repository (14 sources) zonisamide; Translations: [zonisamide] Drug Allergy 3 diarrhea [facility] (1 source) gabapentin Drug Allergy 4 [facility] Repository (1 source) zonisamide Drug Allergy 4 [facility] Repository Medications Current Medications Medication Drug Class(es) Dates Sig (Normalized) Sig (Original) acetaminophen 500 mg oral tablet (20 sources) Start: 09-26-2022 take 1 tablet by mouth every six hours as needed for pain Acetaminophen 500 mg Tablet Active 500 MG PO Q6H as needed for Pain September 25, 2022 11:00pm Start: 12-17-2016 End: 09-26-2022 take 2 tablets by mouth twice daily Acetaminophen 650 mg Tablet Extended Release Discontinued 2 TAB PO Twice daily December 16, 2016 11:00pm September 26, 2022 7:34am Acetaminophen Extra Strength 500 MG (11 sources) take 1 tablet by mouth every six hours as needed Acetaminophen Extra Strength 500 MG 1 tablet as needed Orally every 6 hrs Active calcium carbonate 1500 mg / cholecalciferol 0.01 mg oral tablet (5 sources) Vitamin D Start: 09-27-19 take 1 tablet by mouth once daily Calcium Carbonate-Vitamin D3 (Calcium 600 + D(3)) 600 mg-10 mcg (400 unit) Tablet Active 1 TAB PO Daily September 25, 2022 11:00pm Cane - (10 sources) Start: 05-21-19 Cane - 1 May, Active Cannabis - Medical (18 sources) Cannabis - Medic al Active cyclobenzaprine hydrochloride 10 mg oral tablet (20 sources) Muscle Relaxant Start: 09-27-19 take 1 tablet by mouth three times daily Cyclobenzaprine 10 mg tablet Active 10 MG PO Three times daily September 25, 2022 11:00pm Start: 06-06-2021 take 1 tablet by elizabeth th twice daily as needed Cyclobenzaprine HCl 10 MG 1 tablet as needed Orally up to twice daily as needed for 30 day(s) Jun, Active Start: 12-17-2016 End: 01-29-2019 take 1 tablet by mouth twice daily Cyclobenzaprine 10 mg tablet Discontinued 1 TAB PO Twice daily December 16, 2016 11:00pm January 29, 2019 6:38am take 1 tablet by elizabeth th every twenty-four hours Cyclobenzaprine HCl 10 MG 1 tablet at bedtime as needed Orally Once a day Active take 1 tablet by elizabeth th three times daily as needed Cyclobenzaprine HCl 10 MG 1 tablet as needed Orally up to three times daily as needed for 90 days Active Diclofenac (11 sources) Nonsteroidal Anti-inflammatory Drug Start: 06-03-2023 Diclofenac Sodium (Voltaren Arthritis Pain) 1 % gel Active 2 GM TOPICAL Four times daily 100 June 03, 2023 12:00am Start: 06-03-2023 Diclofenac Sod ium (Voltaren Arthritis Pain) 1 % gel Active 2 GM TOPICAL Four times daily 100 June 03, 2023 1:00am take 1 tablet by elizabeth th every twelve hours Diclofenac Sodium 50 MG 1 tablet as needed Orally Twice a day Active take 1 tablet by elizabeth th every twelve hours Diclofenac Sodium 75 MG 1 tablet as needed Orally Twice a day Active dicyclomine hydrochloride 20 mg oral tablet (4 sources) Anticholinergic Start: 07-16-2022 take 1 tablet by mouth every eight hours Dicyclomine HCl 20 MG 1 tablet Orally Three times a day for 30 days Jul, Active diphenhydrAMINE hydrochloride 25 mg oral capsule (20 sources) Histamine-1 Receptor Antagonist Start: 09-26-2022 take 2 capsules by mouth once daily at bedtime as needed Diphenhydramine Hcl (Benadryl) 25 mg Capsule Active 50 MG PO Daily at bedtime as needed for allergies September 25, 2022 11:00pm Start: 07-01-2017 End: 01-29-2019 Diphenhydramine Hcl 50 mg Ca psule Discontinued 1 CAP PO As Directed as needed for Allergic Reaction June 30, 2017 11:00pm January 29, 2019 6:38am Start: 07-01-2017 End: 01-29-2019 Diphenhydramine Hcl Disconti [...] Jun, Active take 1 capsule by mo [facility] every twenty-four hours Cymbalta 60 MG 1 capsule Orally Once a day for 90 days Active Handicap placards as directed (18 sources) Start: 2018 Handicap placards as directed as directed as directed as directed Dec, Active hydroCHLOROthiazide 12.5 mg / losartan potassium 50 mg oral tablet (11 sources) Thiazide Diuretic, Angiotensin 2 Receptor Avery Start: 07-17-2023 End: 01-16-2024 take 1 tablet by mouth once daily Losartan-Hudson chlorothiazide 50-12.5 mg tablet Active 1 TAB PO Daily January 16, 2024 7:22am Start: 12-12-2022 take 1 tablet by elizabeth every twenty-four hours Losartan Potassium-HCTZ 50-12.5 MG [...] prn for 30 days Jul, Active Magnesium (5 sources) Start: 09-26-2022 take 1 tablet by mouth once daily Magnesium 100 mg Tablet Active 100 MG PO Daily September 25, 2022 11:00pm Start: 09-26-2022 take 100 mg by mouth once mabel y Magnesium Active 100 MG PO Daily September 26, 2022 12:00am meloxicam 15 mg oral tablet (20 sources) Nonsteroidal Anti-inflammatory Drug Start: 09-26-2022 take 1 tablet by mouth once daily Meloxicam 15 mg tablet Active 15 MG PO Daily September 25, 2022 11:00pm methocarbamol 500 mg oral tablet (4 sources) Muscle Relaxant Start: 05-08-2021 take 1 tablet by mouth twice daily as needed Methocarbamol 500 MG 1 tablet Orally twice daily as needed for 30 day(s) May, Active ondansetron 8 mg oral tablet (10 sources) Serotonin-3 Receptor Antagonist Start: 05-29-2023 take 1 tablet by mouth once daily as needed for nausea and vomiting Ondansetron Hcl 8 mg tablet Active 8 MG PO Daily as needed for nausea and vomiting May 29, 2023 12:00am take 1 tablet by [facility] once daily as needed Zofran 8 MG 1 tablet as needed Orally Once a day Active polyethylene glycol 3350 [id number] mg / potassium chloride 2970 mg / sodium bicarbonate 6740 mg / sodium chloride 5860 mg / sodium sulfate 72207 mg powder for oral solution (6 sources) [...] Feb, Active pregabalin 50 mg oral capsule (12 sources) Start: 07-21-2023 take 1 capsule by mouth twice daily Pregabalin 50 mg capsule Active 50 MG PO Twice daily July 20, 2023 11:00pm Start: 12-17-2016 End: 01-29-2019 take 2 capsules by mouth twice daily Pregabalin (Lyrica) 75 mg capsule Discontinued 2 CAP PO Twice daily December 16, 2016 11:00pm January 29, 2019 6:38am sennosides, detention 8.6 mg oral tablet (16 sources) Start: 02-01-2021 take 2 tablets by mouth once daily at bedtime as needed Senna Lax 8.6 MG 2 tablets at bedtime as needed Orally Once a day for 30 day(s) Jan, Active varenicline 1 mg oral tablet [...] / HYDROcodone bitartrate 5 mg oral tablet (8 sources) Opioid Agonist Start: 12-17-2016 End: 09-26-2022 take 1 tablet by mouth twice daily as needed for pain Hydrocodone-Acetami nophen 5-325 mg tablet Discontinued 1 TAB PO Twice daily as needed for Pain December 16, 2016 11:00pm September 26, 2022 7:34am acetaminophen 325 mg / oxyCODONE hydrochloride 5 mg oral tablet (20 sources) Opioid Agonist Start: 07-21-2023 End: 09-15-2023 take 1 tablet by mouth twice daily as needed for pain Oxycodone-Acetamino phen 5-325 mg tablet Discontinued 1 TAB PO Twice daily as needed for pain July 21, 2023 September 15, 2023 9:25am Start: 09-26-2022 End: 06-03-2023 take 1 tablet by mouth four times daily as needed for pain Oxycodone-Acetaminophen 5-325 mg tablet Discontinued 1 TAB PO Four times daily as needed for Pain September 25, 2022 11:00pm June 03, 2023 1:04pm Start: 05-08-2021 take 1 tablet by elizabeth [...] as needed for 7 days Active Cannabis (8 sources) Start: 01-21-2019 End: 09-26-2022 Cannabis Discontinued as nee ded for Pain January 20, 2019 11:00pm September 26, 2022 7:34am Start: 01-21-2019 End: 09-26-2022 Cannabis Discontinued Octobe r 2018 12:00am September 26, 2022 8:34am Start: 01-21-2019 Cannabis Activ e January 21, 2019 12:00am celecoxib 200 mg oral capsule (8 sources) Nonsteroidal Anti-inflammatory Drug Start: 12-17-2016 End: 09-26-2022 take 1 capsule by mouth twice daily Celecoxib 200 mg capsule Discontinued 1 CAP PO Twice daily December 16, 2016 11:00pm September 26, 2022 7:34am lidocaine 0.04 mg/mg medicated patch (4 sources) Antiarrhythmic, Amide Local Anesthetic Start: 06-03-2023 End: 07-21-2023 apply 1 dose topically twice daily Lidocaine 4 % adhesive patch,medicated Discontinued 1 PATCH TOPICAL Twice daily June 03, 2023 12:00am July 21, 2023 7:03am Medrol Dose Pack as directed (12 sources) Start: 10-05-2020 Medrol Dose Pack as directed as directed orally as directed Oct, Not-Taking Start: 10-05-2020 Medrol Dose Pa ck as directed as directed orally as directed Oct, Active methylPREDNISolone acetate 8 0 mg/ml injectable suspension (20 sources) Corticosteroid Start: 09-11-2022 DEPO-Medrol 13 Sep, 2023 40 mg Start: 03-25-2019 Depo-Medrol 80 mg Mar, 40 mg niacin 500 mg oral tablet (5 sources) Nicotinic Acid Start: 09-26-2022 End: 09-15-2023 take 1 tablet by mouth once daily Niacin 500 mg Tablet Discontinued 500 MG PO Daily September 25, 2022 11:00pm September 15, 2023 9:25am 12 hr orphenadrine citrate 100 mg extended release oral tablet (8 sources) Muscle Relaxant Start: 01-21-2019 End: 09-26-2022 take 1 tablet by mouth twice daily Orphenadrine Citrate 100 mg tablet extended release Discontinued 100 MG PO Twice daily January 20, 2019 11:00pm September 26, 2022 7:35am sildenafil 50 mg oral tablet (11 sources) Phosphodiesterase 5 Inhibitor Start: 07-17-2023 End: 01-16-2024 take 1 tablet by mouth once daily as needed Sildenafil 50 mg tablet Discontinued 50 MG PO Daily as needed for sexual activity January 16, 2024 7:21am January 16, 2024 7:34am Start: 01-17-2023 take 1 tablet by elizabeth th every twenty-four hours Sildenafil Citrate 50 MG 1 tablet as needed Orally Once a day for 30 days Jan, Active tiZANidine 4 mg oral tablet (8 sources) Central alpha-2 Adrenergic Agonist Start: 07-01-2017 End: 01-29-2019 take 1 tablet by mouth twice daily Tizanidine 4 mg tablet Discontinued 1 TAB PO Twice daily June 30, 2017 11:00pm January 29, 2019 6:38am Triamcinolone (20 sources) Corticosteroid Start: 12-11-2017 Kenalog [...] or arthrodesis] Onset: 09-30-2023 Episodic Essential hypertension (12 sources) Essential hypertension; Translations: [Essential (primary) hypertension] Chronic Gastrointestinal hemorrhage (3 sources) Hemorrhage of anus and rectum; Translations: [Melena] Episodic Genitourinary symptoms and ill-defined conditions (1 source) Unspecified urinary incontinence; Translations: [UNSPECIFIED URINARY INCONTINENCE] Onset: 06-29-2022 Chronic Genitourinary symptoms and ill-defined conditions (1 source) Unspecified abnormal findings in urine Episodic Hemorrhoids (6 sources) Hemorrhoids; Translations: [Unspecified hemorrhoids] 07-21-2023 Episodic Hyperplasia of prostate (8 sources) Benign prostatic hyperplasia; Translations: [Benign prostatic hyperplasia without lower urinary tract symptoms] 07-21-2023 Chronic Osteoarthritis (20 sources) Localized, primary osteoarthritis of the wrist; Translations: [Primary osteoarthritis, 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 Other aftercare (3 sources) Encounter for therapeutic drug level monitoring Episodic Other aftercare (1 source) Other air deodorizer servicer (current) drug therapy; Translations: [OTH DETENTION CURRENT DRUG THERAPY] Onset: 07-17-2022 Episodic Other [...] bowel habit Episodic Other male genital disorders (5 sources) Secondary erectile dysfunction; Translations: [Erectile dysfunction due to diseases classified elsewhere] 01-16-2024 Chronic Other male genital disorders (3 sources) Erectile dysfunction due to diseases classified [...] [LOW BACK PAIN, UNSPECIFIED] Onset: 07-23-2022 Unclassified (2 sources) Well adult; 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 Results Test Name Value Interpretation Reference Range Facility [facility] with reflex to A1Con Albumin [Mass/Vol] 4.3 g/dL Normal 3.5-5.7 The [facility] Comment on above: Performed By: #### C BC, CMP wRFX A1C #### [address] Albumin/Globulin [Mass ratio] 1.5 {ratio} Normal [facility] Comment on above: Performed By: #### C BC, CMP wRFX A1C #### [address] ALP [Catalytic activity/Vol] 40 U/L Normal 34-104 [facility] Comment on above: Result Comment: PERF ORMED BY: [place] [address] PATHOLOGIST ANCHORMAN VIOLETTA HELM M.D. Performed By: #### C BC, CMP wRFX A1C #### [address] ALT [Catalytic activity/Vol] 24 U/L Normal 7-52 [facility] Comment on above: Performed By: #### C BC, CMP wRFX A1C #### [address] Anion gap [Moles/Vol] 9.9 mmol/L Normal 6.0-15.0 [facility] Comment on above: Performed By: #### C BC, CMP wRFX A1C #### [address] AST [Catalytic activity/Vol] 19 U/L Normal 13-39 [facility] Comment on above: Performed By: #### C BC, CMP wRFX A1C #### [address] Bilirubin [Mass/Vol] 0.4 mg/dL Normal 0.3-1.0 [facility] Comment on above: Performed By: #### C BC, CMP wRFX A1C #### [address] Calcium [Mass/Vol] 9.9 mg/dL Normal 8.6-10.3 [facility] Comment on above: Performed By: #### C BC, CMP wRFX A1C #### [place] [address] [place] Chloride [Moles/Vol] 103 mmol/L Normal 98-107 [facility] Comment on above: Performed By: #### C BC, CMP wRFX A1C #### [address] CO2 [Moles/Vol] 32.5 mmol/L High 21.0-31.0 The [facility] Comment on above: Performed By: #### C BC, CMP wRFX A1C #### [address] Creatinine [Mass/Vol] 0.81 mg/dL Normal 0.70-1.30 [facility] Comment on above: Performed By: #### C BC, CMP wRFX A1C #### [place] [address] [place] GFR/1.73 sq M.predicted MDRD (S/P/Bld) [Vol rate/Area] mL/min/{1.73_m2} Normal [facility] Comment on above: Performed By: #### C BC, CMP wRFX A1C #### [place] [address] [place] Globulin (S) [Mass/Vol] 2.9 g/dL Normal [facility] Comment on above: Performed By: #### C BC, CMP wRFX A1C #### [address] Glucose [Mass/Vol] 90 mg/dL Normal 70-100 [facility] Comment on above: Performed By: #### C BC, CMP wRFX A1C #### [address] [address] [place] Potassium [Moles/Vol] 4.4 mmol/L Normal 3.5-5.1 [facility] Comment on above: Performed By: #### C BC, CMP wRFX A1C #### [address] Protein [Mass/Vol] 7.2 g/dL Normal 6.4-8.9 [facility] Comment on above: Performed By: #### C BC, CMP wRFX A1C #### [address] Sodium [Moles/Vol] 141 mmol/L Normal 136-145 [facility] Comment on above: Performed By: #### C BC, CMP wRFX A1C #### [address] Urea nitrogen [Mass/Vol] 9 mg/dL Normal 7-25 [facility] Comment on above: Performed By: #### C BC, CMP wRFX A1C #### [address] Complete Blood Count Auto Di ffon 03-08-2024 Basophils (Bld) [#/Vol] 0.0 10*3/uL Normal 0.0-0.2 [facility] Comment on above: Result Comment: PERF ORMED BY: [place] [address] PATHOLOGIST ANCHORMAN VIOLETTA HELM M.D. Performed By: #### C BC, CMP wRFX A1C #### [place] [address] [place] Basophils/100 WBC (Bld) 0.5 % Normal . T he [facility] Comment on above: Performed By: #### C BC, CMP wRFX A1C #### [place] [address] [place] Eosinophils (Bld) [#/Vol] 0.3 10*3/uL Normal 0.0-0.45 [facility] Comment on above: Performed By: #### C BC, CMP wRFX A1C #### [facility] [address] [place] [address] [place] Eosinophils/100 WBC (Bld) 4.0 % Normal . [facility] Comment on above: Performed By: #### C BC, CMP wRFX A1C #### [facility] [address] Erythrocyte distribution width (RBC) [Ratio] 14.4 % Normal 12.0-14.8 [facility] Comment on above: Performed By: #### C BC, CMP wRFX A1C #### [address] Hematocrit (Bld) [Volume fraction] 44.4 % Normal 38.8-50.0 [facility] Comment on above: Performed By: #### C BC, CMP wRFX A1C #### [address] Hemoglobin (Bld) [Mass/Vol] 14.8 g/dL Normal 13.0-17.0 [facility] Comment on above: Performed By: #### C BC, CMP wRFX A1C #### [place] [address] [place] Lymphocytes (Bld) [#/Vol] 2.4 10*3/uL Normal 1.00-4.8 [facility] Comment on above: Performed By: #### C BC, CMP wRFX A1C #### [place] [address] [place] Lymphocytes/100 WBC (Bld) 35.2 % Normal . [facility] Comment on above: Performed By: #### C BC, CMP wRFX A1C #### [address] MCH (RBC) [Entitic mass] 30.5 pg Normal 27.5-35.2 [facility] Comment on above: Performed By: #### C BC, CMP wRFX A1C #### [address] MCV (RBC) [Entitic vol] 91.5 fL Normal 83.5-101 T he [facility] Comment on above: Performed By: #### C BC, CMP wRFX A1C #### [address] Mean Corpuscular HGB Conc 33.4 g/dL Normal 32.5-35.6 [facility] Comment on above: Performed By: #### C BC, CMP wRFX A1C #### [address] Monocytes (Bld) [#/Vol] 0.4 10*3/uL Normal 0.0-0.8 [facility] Comment on above: Performed By: #### C BC, CMP wRFX A1C #### [address] Monocytes/100 WBC (Bld) 5.9 % Normal . [facility] Comment on above: Performed By: #### C BC, CMP wRFX A1C #### [address] Neutrophils (Bld) [#/Vol] 3.8 10*3/uL Normal 1.8-7.7 [facility] Comment on above: Performed By: #### C BC, CMP wRFX A1C #### [address] Neutrophils/100 WBC (Bld) 54.4 % Normal . [facility] Comment on above: Performed By: #### C BC, CMP wRFX A1C #### [address] NRBC% 0.1 /100{WBC} Normal 0-0.5 The [facility] Comment on above: Performed By: #### C BC, CMP wRFX A1C #### [address] Platelet mean volume (Bld) [Entitic vol] 11.2 fL High 6.6-10.1 [facility] Comment on above: Performed By: #### C BC, CMP wRFX A1C #### [address] [address] [place] Platelets (Bld) [#/Vol] 204 10*3/uL Normal 150-450 [facility] Comment on above: Performed By: #### C BC, CMP wRFX A1C #### [facility] [address] RBC (Bld) [#/Vol] 4.86 10*6/uL Normal 3.90-5.[address] [facility] Comment on above: Performed By: #### C BC, CMP wRFX A1C #### [facility] [address] WBC (Bld) [#/Vol] 7.0 10*3/uL Normal 4.1-10.5 The [facility] Comment on above: Performed By: #### C BC, CMP wRFX A1C #### [facility] [address] ECG 12 lead ECGon 03-08-2024 ECG 12 lead ECG [facility] [place] [address] [place] [address] Electrocardiograph Report Signed Patient: Neal Parker MR#: [id number] : 1980 Acct:[id number] Age/Sex: 43 / M ADM Date: 03/08/24 Loc: Room: Type: [facility] Attending Dr: Nisha Villanueva MD Ordering Provider: Nisha Villanueva MD Date of Service: 03/08/2405/31/1527 ECG/ECG 12 lead ECG: Pre op Copies to: Test Reason : Blood Pressure : */* mmHG Vent. Rate : 83 BPM Atrial Rate : 83 BPM P-R Int : 124 ms QRS Dur : 88 ms QT Int : 358 ms P-R-T Axes : 27 5 52 degrees QTcB Int : 420 ms Normal sinus rhythm Normal ECG No previous ECGs available Confirmed by Shakeel Guerra ([id number]) on 03/08/2024 5:31:45 PM Referred By: Electronically Signed By: Shakeel Guerra Transcribed By: MUS Signed By Shakeel Guerra MD 03/08/24 1731 Normal [facility] Cholesterol in LDL Calc [Mas s/Vol]on 01-16-2024 Cholesterol in LDL [Mass/Vol] Cholesterol in LDL [Mass/volume] in Serum or Plasma by calculation [facility] Comment on above: <100 mg/dl [id number] 0-129 mg/dl NEAR OR ABOVE [id number] mg/dl BORDERLINE [id number] mg/dl HIGH>190 mg/dl VERY HIGH Cholesterol in VLDL Calc [Ma ss/Vol]on 01-16-2024 Cholesterol in VLDL [Mass/Vol] Cholesterol in VLDL [Mass/volume] in Serum or Plasma by calculation [facility] Laboratory - Chemistry and C hemistry - challengeon 01-16-2024 Cholesterol [Mass/Vol] 229 mg/dL High <=200 Fi [facility] Cholesterol in HDL [Mass/Vol] 49 mg/dL 40-60 [facility] Comment on above: > or =60 mg/dl - LOW CARDIOVASCULAR RISK<40 mg/dl - HIGH CARDIOVASCULAR RISK Triglyceride [Mass/Vol] 105 mg/dL <=150 F [facility] No Panel Informationon 01-15 Prostate Specific Antigen Screen 0.88 ng/mL <=4.00 [facility] Serum or plasma total choles terol/high density lipoprotein (HDL) cholesterol mass maci 01-16-2024 Cholesterol.total/Patti sterol in HDL [Mass ratio] Serum or plasma total cholesterol/high density lipoprotein (HDL) cholesterol mass rat [facility] Comment on above: 3.3 - 4.4 LOW RISK4. 4 - 7.1 AVERAGE RISK7.1 - 11.0 MODERATE RISK>11.0 HIGH RISK .eGFRon 10-02-2023 GFR/1.73 sq M.predicted MDRD (S/P/Bld) [Vol rate/Area] mL/min/{1.73_m2} Normal >=60 [facility] Comment on above: Result Comment: [facility] Laboratories have implemented the eGFR calculation [...] Age = years Performed By: #### C [id number] #### [address] [address] Basic Metabolic Profileon Anion gap [Moles/Vol] 5 mmol/L Normal 4-12 [facility] Comment on above: Performed By: #### C [id number] #### [address] [address] Calcium [Mass/Vol] 8.2 mg/dL Low 8.5-10.3 [facility] Comment on above: Performed By: #### C [id number] #### [address] [address] Chloride [Moles/Vol] 106 mmol/L Normal 98-110 [facility] Comment on above: Performed By: #### C [id number] #### [address] [address] CO2 [Moles/Vol] 27 mmol/L Normal 22-32 [facility] [place] Comment on above: Performed By: #### C D:[id number] #### [address] [address] Creatinine [Mass/Vol] 0.75 mg/dL Normal 0.61-1.24 [facility] Comment on above: Performed By: #### C D:[id number] #### [address] [address] Glucose [Mass/Vol] 88 mg/dL Normal 70-99 [facility] Comment on above: Performed By: #### C D:[id number] #### [address] [address] Potassium [Moles/Vol] 3.9 mmol/L Normal 3.4-4.8 [facility] Comment on above: Performed By: #### C D:[id number] #### [address] [address] Sodium [Moles/Vol] 138 mmol/L Normal 133-142 [facility] Comment on above: Performed By: #### C D:[id number] #### [address] [address] Urea nitrogen [Mass/Vol] 13 mg/dL Normal 8-26 [facility] [place] Comment on above: Performed By: #### C D:[id number] #### [address] [address] Urea nitrogen/Creatinine [Mass ratio] 17.3 mg/mg Normal 10.0-20.0 [facility] [place] Comment on above: Performed By: #### C D:[id number] #### [address] [address] CBC w/ Diffon 10-02-2023 Erythrocyte distribution width (RBC) [Ratio] 14.4 % Normal 11.6-14.8 [facility] [place] Comment on above: Performed By: #### E GFR #### [address] [address] Hematocrit (Bld) [Volume fraction] 37.0 % Low 41.0-53.0 [facility] [place] Comment on above: Performed By: #### E GFR #### [address] [address] Hemoglobin (Bld) [Mass/Vol] 12.1 g/dL Low 13.5-17.5 [facility] [place] Comment on above: Performed By: #### E GFR #### [address] [address] MCH (RBC) [Entitic mass] 30.2 pg Normal 27.0-35.0 [facility] [place] Comment on above: Performed By: #### E GFR #### [address] [address] MCHC 32.6 % Normal 31.0-37.0 [facility] [place] Comment on above: Performed By: #### E GFR #### [place] 5447740 MCV (RBC) [Entitic vol] 92.6 fL Normal 80.0-100.0 [facility] Comment on above: Performed By: #### E GFR #### [place] 5447740 Platelet 174 x10*3/mcL Normal 150-450 [facility] [place] Comment on above: Performed By: #### E GFR #### [place] 5447740 Platelet mean volume (Bld) [Entitic vol] 10.7 fL High 6.7-10.6 [facility] [place] Comment on above: Performed By: #### E GFR #### [place] 5447740 RBC 4.00 x10*6/mcL Low 4.30-5.80 [facility] [place] Comment on above: Performed By: #### E GFR #### [place] 5447740 WBC 11.9 x10*3/mcL High 4.5-11.0 [facility] [place] Comment on above: Performed By: #### E GFR #### [place] 5447740 Diff Autoon 10-02-2023 Baso Absolute 0.0 x10*3/mcL Normal 0.0-0.2 [facility] Comment on above: Performed By: #### C D:[id number] #### [address] [address] Basophils/100 WBC (Bld) 0.2 % Normal 0.0-1.2 [facility] Comment on above: Performed By: #### C D:[id number] #### [address] [address] Eos Absolute 0.2 x10*3/mcL Normal 0.0-0.4 [facility] [place] Comment on above: Performed By: #### C D:[id number] #### [address] [address] Eosinophils/100 WBC (Bld) 1.5 % Normal 0.0-6.1 [facility] [place] Comment on above: Performed By: #### C D:[id number] #### [address] [address] Lymph Absolute 5.1 x10*3/mcL High 1.0-4.8 [facility] Comment on above: Performed By: #### C D:[id number] #### [address] [address] Lymphocytes/100 WBC (Bld) 42.9 % High 27.2-40.8 [facility] [place] Comment on above: Performed By: #### C D:[id number] #### [address] [address] Maury Absolute 0.9 x10*3/mcL Normal 0.3-1.1 [facility] Comment on above: Performed By: #### C D:[id number] #### [address] [address] Monocytes/100 WBC (Bld) 7.1 % Normal 4.7-13.9 [facility] Comment on above: Performed By: #### C D:[id number] #### [address] [address] Neutro Absolute 5.7 x10*3/mcL Normal 1.8-7.7 [facility] Comment on above: Performed By: #### C D:[id number] #### [address] [address] Neutro Auto 48.3 % Normal 47.2-70.8 [facility] [place] Comment on above: Performed By: #### C D:[id number] #### [address] [address] Inpatient Clinical Summaryon 10-02-2023 Inpatient Clinical Summary [address] [address] [address] Clinical Summary Person Information Name: Neal Parker Age: 42 Years : 1980 Sex: Male PCP: Maribeth Vuong DO Marital Status: Phone: PCP: Race: White Ethnicity: Not or Language: Wolof Visit Id: Visit Reason: Speciality: Acuity: Enc Type: Inpatient Med Service: Surgery Arrival: 09/30/2023 08:56:12 Discharge: Dispo Type: Address: [address] [place] [phone] Diagnosis: Discharged To: Home Treatments: Devices/Equipment: Professional [...] range between ( 27.2 and 40.8 ) Maury Auto: 7.1 % -- Normal range between [...] range between ( 41.0 and 53.0 ) Maury Absolute: 0.9 x10 MCH: 30.2 pg -- [...] to r (more content not included)... Normal [facility] [place] .eGFRon 10-01-2023 GFR/1.73 sq M.predicted MDRD (S/P/Bld) [Vol rate/Area] mL/min/{1.73_m2} Normal >=60 [facility] [place] Comment on above: Order Comment: Order added by Discern rule Result Comment: [facility] have implemented the eGFR calculation [...] years Performed By: #### E GFR #### [address] [address] Basic Metabolic Profileon Calcium [Mass/Vol] 8.4 mg/dL Low 8.5-10.3 [facility] Comment on above: Performed By: #### E GFR #### [address] [address] Anion gap [Moles/Vol] 6 mmol/L Normal 4-12 [facility] Comment on above: Performed By: #### E GFR #### [address] [address] Chloride [Moles/Vol] 107 mmol/L Normal 98-110 [facility] Comment on above: Performed By: #### E GFR #### [address] [address] CO2 [Moles/Vol] 26 mmol/L Normal 22-32 [facility] [place] Comment on above: Performed By: #### E GFR #### [address] [address] Creatinine [Mass/Vol] 0.97 mg/dL Normal 0.61-1.24 [facility] Comment on above: Performed By: #### E GFR #### [address] [address] Glucose [Mass/Vol] 119 mg/dL High 70-99 [facility] Comment on above: Performed By: #### E GFR #### [address] [address] Potassium [Moles/Vol] 4.1 mmol/L Normal 3.4-4.8 [facility] Comment on above: Performed By: #### E GFR #### [address] [address] Sodium [Moles/Vol] 139 mmol/L Normal 133-142 [facility] Comment on above: Performed By: #### E GFR #### [address] [address] Urea nitrogen [Mass/Vol] 15 mg/dL Normal 8-26 [facility] [place] Comment on above: Performed By: #### E GFR #### [address] [address] Urea nitrogen/Creatinine [Mass ratio] 15.5 mg/mg Normal 10.0-20.0 [facility] [place] Comment on above: Performed By: #### E GFR #### [address] [address] CBC w/ Diffon 10-01-2023 Erythrocyte distribution width (RBC) [Ratio] 13.9 % Normal 11.6-14.8 [facility] [place] Comment on above: Performed By: #### E GFR #### [address] [address] Hematocrit (Bld) [Volume fraction] 38.3 % Low 41.0-53.0 [facility] [place] Comment on above: Performed By: #### E GFR #### [address] [address] Hemoglobin (Bld) [Mass/Vol] 12.5 g/dL Low 13.5-17.5 [facility] [place] Comment on above: Performed By: #### E GFR #### [address] [address] MCH (RBC) [Entitic mass] 30.2 pg Normal 27.0-35.0 [facility] [place] Comment on above: Performed By: #### E GFR #### [place] [address] MCHC 32.7 % Normal 31.0-37.0 [facility] [place] Comment on above: Performed By: #### E GFR #### [place] [address] MCV (RBC) [Entitic vol] 92.3 fL Normal 80.0-100.0 [facility] Comment on above: Performed By: #### E GFR #### [place] [address] Platelet 175 x10*3/mcL Normal 150-450 [facility] [place] Comment on above: Performed By: #### E GFR #### [place] [address] Platelet mean volume (Bld) [Entitic vol] 11.3 fL High 6.7-10.6 [facility] [place] Comment on above: Performed By: #### E GFR #### [place] [address] RBC 4.15 x10*6/mcL Low 4.30-5.80 [facility] [place] Comment on above: Performed By: #### E GFR #### [place] [address] WBC 15.0 x10*3/mcL High 4.5-11.0 [facility] [place] Comment on above: Performed By: #### E GFR #### [place] [address] Diff Autoon 10-01-2023 Baso Absolute 0.0 x10*3/mcL Normal 0.0-0.2 [facility] Comment on above: Performed By: #### E GFR #### [place] [address] Basophils/100 WBC (Bld) 0.1 % Normal 0.0-1.2 [facility] Comment on above: Performed By: #### E GFR #### [address] [address] Eos Absolute 0.0 x10*3/mcL Normal 0.0-0.4 [facility] [place] Comment on above: Performed By: #### E GFR #### [address] [address] Eosinophils/100 WBC (Bld) 0.0 % Normal 0.0-6.1 [facility] [place] Comment on above: Performed By: #### E GFR #### [address] [address] Lymph Absolute 1.6 x10*3/mcL Normal 1.0-4.8 [facility] Comment on above: Performed By: #### E GFR #### [address] [address] Lymphocytes/100 WBC (Bld) 10.9 % Low 27.2-40.8 [facility] [place] Comment on above: Performed By: #### E GFR #### [address] [address] Maury Absolute 0.9 x10*3/mcL Normal 0.3-1.1 [facility] Comment on above: Performed By: #### E GFR #### [address] [address] Monocytes/100 WBC (Bld) 6.2 % Normal 4.7-13.9 [facility] Comment on above: Performed By: #### E GFR #### [address] [address] Neutro Absolute 12.4 x10*3/mcL High 1.8-7.7 [facility] Comment on above: Performed By: #### E GFR #### [address] [address] Neutro Auto 82.8 % High 47.2-70.8 [facility] [place] Comment on above: Performed By: #### E GFR #### [facility] [address] [place] [address] Orthopedic Progress Noteon 0 10-01-2023 Orthopedic Progress [...] POD#2 pending pain control Electronically signed by Homar Rodgers MD, Jr 10/01/23 11:46 EDT Normal [facility] [place] Operative Reporton Operative Report Preoperative Diagnosis 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 Postoperative Diagnosis 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 Operation L5-S1 right HW removal, L5-S1 revision right decompression and revision fusion Surgeon(s) St Keri PLEITEZ, Diaz Mercer (Surgeon - Primary) Telephone Order Supervisor Qamar Recio PA-C (Medication Coordinator) Anesthesia General Trevor PLEITEZ, Zuleima Maier (Clock Repairer) Kurt Nieves (Provider) Estimated Blood Loss 150 mL Urine Output 800.0 mL Findings loose screws Specimen(s) none Complications none Catheters, Drains, Tubes Device: Rodney Tray 16FR Latex Free [id number] Electronically signed by Qamar Recio PA-C 09/30/23 12:16 EDT Normal [facility] [place] XR Spine Lumbosacral 1 View in ORon [...] Electronically Signed in Other Vendor System) Normal [facility] [place] XR Chest 2 Viewson XR Chest 2 [...] Electronically Signed in Other Vendor System) Normal [facility] [place] .eGFRon 09-10-2023 GFR/1.73 sq M.predicted MDRD (S/P/Bld) [Vol rate/Area] mL/min/{1.73_m2} Normal >=60 [facility] [place] Comment on above: Result Comment: [facility] have implemented the eGFR calculation [...] years Performed By: #### E GFR #### [address] [address] ABO/Rhon 09-10-2023 ABO/Rh SD 09/30/23 ABO/Rh: A POS Normal [facility] [place] Comment on above: Performed By: #### A ABRIL #### [facility] (DEFAULT) [address] [place] [address] [facility] (UNKNOWN) [address] [place] [address] ABSC Autoon 09-10-2023 ABSC Auto Negative Normal [facility] [place] Comment on above: Performed By: #### A SA #### [facility] (UNKNOWN) [address] [place] [address] Basic Metabolic Profileon Anion gap [Moles/Vol] 8 mmol/L Normal 4-12 [facility] Comment on above: Performed By: #### C D:[id number] #### [address] [address] Calcium [Mass/Vol] 10.3 mg/dL Normal 8.5-10.3 [facility] Comment on above: Performed By: #### C D:[id number] #### [address] [address] Chloride [Moles/Vol] 101 mmol/L Normal 98-110 [facility] Comment on above: Performed By: #### C D:[id number] #### [address] [address] CO2 [Moles/Vol] 31 mmol/L Normal 22-32 [facility] [place] Comment on above: Performed By: #### C D:[id number] #### [address] [address] Creatinine [Mass/Vol] 1.05 mg/dL Normal 0.61-1.24 [facility] Comment on above: Performed By: #### C D:[id number] #### [address] [address] Glucose [Mass/Vol] 94 mg/dL Normal 70-99 [facility] Comment on above: Performed By: #### C D:[id number] #### [address] [address] Potassium [Moles/Vol] 4.0 mmol/L Normal 3.4-4.8 [facility] Comment on above: Performed By: #### C D:[id number] #### [address] [address] Sodium [Moles/Vol] 140 mmol/L Normal 133-142 [facility] Comment on above: Performed By: #### C D:[id number] #### [address] [address] Urea nitrogen [Mass/Vol] 13 mg/dL Normal 8-26 [facility] [place] Comment on above: Performed By: #### C D:[id number] #### [address] [address] Urea nitrogen/Creatinine [Mass ratio] 12.4 mg/mg Normal 10.0-20.0 [facility] [place] Comment on above: Performed By: #### C D:[id number] #### [address] [address] CBCon 09-10-2023 Erythrocyte distribution width (RBC) [Ratio] 14.1 % Normal 11.6-14.8 [facility] [place] Comment on above: Performed By: #### C D:[id number] #### [address] [address] Hematocrit (Bld) [Volume fraction] 46.6 % Normal 41.0-53.0 [facility] [place] Comment on above: Performed By: #### C D:[id number] #### [facility] [address] [place] [address] Hemoglobin (Bld) [Mass/Vol] 15.5 g/dL Normal 13.5-17.5 [facility] [place] Comment on above: Performed By: #### C D:[id number] #### [address] [address] MCH (RBC) [Entitic mass] 30.9 pg Normal 27.0-35.0 [facility] [place] Comment on above: Performed By: #### C D:[id number] #### [address] [address] MCHC 33.3 % Normal 31.0-37.0 [facility] [place] Comment on above: Performed By: #### C D:[id number] #### [address] [address] MCV (RBC) [Entitic vol] 92.9 fL Normal 80.0-100.0 [facility] Comment on above: Performed By: #### C D:[id number] #### [address] [address] Platelet 191 x10*3/mcL Normal 150-450 [facility] [place] Comment on above: Performed By: #### C D:[id number] #### [address] [address] Platelet mean volume (Bld) [Entitic vol] 11.3 fL High 6.7-10.6 [facility] [place] Comment on above: Performed By: #### C D:[id number] #### [facility] [address] [place] [address] RBC 5.02 x10*6/mcL Normal 4.30-5.80 [facility] [place] Comment on above: Performed By: #### C D:[id number] #### [address] [address] WBC 8.2 x10*3/mcL Normal 4.5-11.0 [facility] [place] Comment on above: Performed By: #### C D:[id number] #### [facility] [address] [place] [address] MRSA, PCRon 09-10-2023 LAB ONLY Result Called? No Normal B [facility] Comment on above: Performed By: #### E GFR #### [facility] [address] [place] [address] Methicillin Resistant Staph aurus(MRSA) Not detected Normal Not Detected [facility] [place] Comment on above: Result Comment: Mut ations or polymorphisms in primer or probe binding regions may affect detection of new or unknown MRSA variants resulting in a false negative. The Priztag Xpert MRSA Assay is a qualitative in [...] clinician. Performed By: #### E GFR #### [address] [address] PTon 09-10-2023 INR Coag (PPP) [Relative time] 0.9 {INR} Normal <=3.5 [facility] [place] Comment on above: Result Comment: INR has no normal range. INR Therapeutic range is: 2.0-3.0 (AF, CVA, TIAs, DVT prophylaxis, acute DVT) 2.5-3.5 (Mech heart valves, recurrent thrombosis/emboli) Performed By: #### P TINR #### [address] [address] PT Coag (PPP) [Time] 9.8 s Normal 9.2-12.0 [facility] Comment on above: Performed By: #### P TINR #### [address] [address] PTTon 09-10-2023 aPTT Coag (d) [Time] 22.0 s Normal 19.5-28.2 Bl [facility] Comment on above: Performed By: #### C D:[id number] #### [address] [address] XR hand LT min 3V*on 024 XR hand LT min 3V* [facility] [place] [address] [place] [address] XRay Report Signed Patient: Neal Parker MR#: [id number] : 1980 Acct:[id number] Age/Sex: 42 / M ADM Date: 06/03/23 Loc: [facility] Room: [facility] Attending Dr: Nisha Villanueva MD Copies [...] Greer Jr., D.OIbrahima06/03/2023 3:46 PM Dictation Location: [facility]14 Transcribed By: [facility] 06/03/23 1546 Dictated By: Sonny Greer Jr, DO 06/03/23 1545 Signed By: 06/03/23 1546 Normal [facility] Amylaseon 07-15-2022 Amylase 43 U/L Normal 29-103 U/L Stemgent Other Amylase [Enzymatic activity/ volume] in Serum or PlasmaOrdered By: Maribeth Vuong on 07-15-2022 Amylase [Catalytic activity/Vol] 43 U/L 29-103 [facility] Basophils Auto (Bld) [#/Vol] Ordered By: Mariebth Carolann on 07-15-2022 Basophils (Bld) [#/Vol] 0.0 10*3/uL 0.0-0.2 [facility] Basophils/100 WBC Auto (Bld) Ordered By: Maribeth Vuong on 07-15-2022 Basophils/100 WBC (Bld) 0.5 % . F [facility] CBC W MANUAL DIFFon 07-16-19 23 ATYPICAL LYMPH # Normal [facility] Comment on above: Performed By: #### C JEAN ####[facility] [address] [place] [address]Dr. Sydney David ATYPICAL LYMPH % Normal [facility] Comment on above: Performed By: #### C JEAN ####[facility] [address]em[address] [place] [address]Dr. Yilan David BAND # 0.1 103/ul Normal 0.0-0.3 [facility] Comment on above: Performed By: #### C JEAN ####[facility] [address] [place] [address]Dr. Yilan David BAND % 1 % Normal 0-5 [facility] Comment on above: Performed By: #### C JEAN ####[facility] [address] [place] [address]Dr. Yilan David BASOM # 0.00 103/ul Normal 0.00-0.10 [facility] Comment on above: Performed By: #### C JEAN ####[facility] [address] [place] [address]Dr. Yilan David BASOM % 0.0 % Critically low 0.2-2.0 [facility] Comment on above: Performed By: #### C JEAN ####[facility] [address] [place] [address]Dr. Yilan David BLAST # Normal [facility] Comment on above: Performed By: #### C JEAN ####[facility] [address] [place] [id number]. Sydney David BLAST % Normal [facility] Comment on above: Performed By: #### C JEAN ####[facility] [address] [place] [address]Dr. Sydney David CORRECTED WBC Normal 4.0-11.0 [facility] Comment on above: Performed By: #### C JEAN ####[facility] [address] [place] [address]Dr. Sydney David EOS # 0.24 103/ul Normal 0.00-0.70 [facility] Comment on above: Performed By: #### C JEAN ####[facility] [address] [place] [address]Dr. Sydney David EOS% 3.0 % Normal 0.9-7.0 [facility] Comment on above: Performed By: #### C JEAN ####[facility] Vxxsx[address] [place] [address]Dr. Sydney David HCT 46.4 % Normal 42.0-54.0 [facility] Comment on above: Performed By: #### C JEAN ####[facility] [address] [place], [place] [address]Dr. Sydney David HGB 15.4 g/dl Normal 14.0-18.0 [facility] Comment on above: Performed By: #### C JEAN ####[facility] [address] [place], [place] [address]Dr. Sydney David LYMPHM # 3.36 103/ul Normal 1.20-3.80 [facility] Comment on above: Performed By: #### C JEAN ####[facility] [address] [place], [place] [address]Dr. Sydney David LYMPHM% 42.0 % Normal 20.5-60.0 [facility] Comment on above: Performed By: #### C JEAN ####[facility] [address] [place] [address]Dr. Sydney David MCH 30.3 pg Normal 25.9-34.0 [facility] Comment on above: Performed By: #### C JEAN ####[facility] [address] [place] [address]Dr. Sydney David MCHC 33.2 g/dl Normal 29.9-35.2 [facility] Comment on above: Performed By: #### C JEAN ####[facility] [address]rsw[address]cf[address] [place] [address]Dr. Sydney David MCV 91.3 fL Normal 80.0-94.0 [facility] Comment on above: Performed By: #### C JEAN ####[facility] [address]xf[address] [place] [address]Dr. Sydney David METAMYELOCYTE # Normal [facility] Comment on above: Performed By: #### C JEAN ####[facility] [address] [place] [address]Dr. Sydney David METAMYELOCYTE % Normal [facility] Comment on above: Performed By: #### C JEAN ####[facility] [address] [place], [place] [address]Dr. Sydney David MONOM# 0.80 103/ul Normal 0.30-0.80 [facility] Comment on above: Performed By: #### C JEAN ####[facility] Vsp[address]jo[address] [place] [address]Dr. Sydney David MONOM% 10.0 % Normal 1.7-12.0 [facility] Comment on above: Performed By: #### C JEAN ####[facility] [address] [place] [address]Dr. Sydney David MPV 11.8 fL Normal 9.5-13.5 [facility] Comment on above: Performed By: #### C JEAN ####[facility] [address] [place], [place] [address]Dr. Sydney David MYELOCYTE # Normal [facility] Comment on above: Performed By: #### C JEAN ####[facility] [address]kw[address] [place] [address]Dr. Yilan David MYELOCYTE % Normal [facility] Comment on above: Performed By: #### C JEAN ####[facility] [address] [place] [address]Dr. Sydney David NRBC Normal [facility] Comment on above: Performed By: #### C JEAN ####[facility] [address] [place], [place] [address]Ux. Sydney David PLT 249 103/ul Normal 150-450 [facility] Comment on above: Performed By: #### C JEAN ####[facility] [address] [place], [place] [address]Gu. Sydney David RBC 5.08 106/ul Normal 4.70-6.10 [facility] Comment on above: Performed By: #### C JEAN ####[facility] [address] [place] [address]Dr. Sydney David RDW 13.1 % Normal 11.0-15.0 [facility] Comment on above: Performed By: #### C JEAN ####[facility] [address] [place] [id number]. Sydney David SEG # 3.52 103/ul Normal 1.40-6.50 [facility] Comment on above: Performed By: #### C JEAN ####[facility] [address] [place] [id number]. Sydney David SEG % 44.0 % Normal 43.0-75.0 [facility] Comment on above: Performed By: #### C JEAN ####[facility] [address] [place] [id number]. Sydney David WBC 8.0 103/ul Normal 4.0-11.0 [facility] Comment on above: Performed By: #### C JEAN ####[facility] [address] [place], [place] [id number]. Sydney David CT ABD/PELV W CONon 07-16-19 [...] EVANGELIST LEOS Date: 2022-07-15 16:[address] [facility] Complete Blood Count Auto Di ffon 07-15-2022 Basophils (Bld) [#/Vol] 0.008945157 10*3/uL Normal 0.0-0.2 10*3/uL [facility] Other Basophils/100 WBC (Bld) 0.500 % . % N [facility] Other Eosinophils (Bld) [#/Vol] 0.372101560 10*3/uL High 0.0-0.45 10*3/uL [facility] Other Eosinophils/100 WBC (Bld) 6.100 % . % [facility] Other Erythrocyte distribution width (RBC) [Ratio] 13.600 % Normal 12.0-14.8 % [facility] Other Hematocrit (Bld) [Volume fraction] 47.400 % Normal 38.8-50.0 % [facility] Other Hemoglobin (Bld) [Mass/Vol] 15.251284 g/dL Normal 13.0-17.0 g/dL [facility] Other Lymphocytes (Bld) [#/Vol] 4.062776610 10*3/uL Normal 1.00-4.8 10*3/uL [facility] Other Lymphocytes/100 WBC (Bld) 46.500 % . % [facility] Other MCH (RBC) [Entitic mass] 30.2000 pg Normal 27.5-35.2 pg [facility] Other MCV (RBC) [Entitic vol] 92.3000 fL Normal 83.5-101 fL [facility] Other Monocytes (Bld) [#/Vol] 0.815867175 10*3/uL Normal 0.0-0.8 10*3/uL [facility] Other Monocytes/100 WBC (Bld) 8.300 % . % N [facility] [employer] Other Neutrophils (Bld) [#/Vol] 3.982939944 10*3/uL Normal 1.8-7.7 10*3/uL [facility] Other Neutrophils/100 WBC (Bld) 38.600 % . % [facility] Other Platelet mean volume (Bld) [Entitic vol] 11.1000 fL High 6.6-10.1 fL [facility] Other WBC (Bld) [#/Vol] 9.447690963 10*3/uL Normal 4.1 -10.5 10*3/uL [facility] Other Complete Blood Count Auto Diff 9.2 10*3/uL Normal 4.1-10.5 10*3/uL [facility] Other Complete Blood Count Auto Diff 32.7 g/dL Normal 32.5-35.6 g/dL [place] [facility] [place] Other Complete Blood Count Auto Diff 0.0 /100{WBC} Normal 0-0.5 /100{WBC} [facility] Screen [facility] [place] Other Complete Blood Count Auto Di ffOrdered By: Maribeth Vuong on 07-15-2022 Platelets (Bld) [#/Vol] 236 10*3/uL 150-450 [facility] RBC (Bld) [#/Vol] 5.13 10*6/uL 3.90-5.60 [facility] ER URINE PROFILEon 3 Bilirubin Ql (U) Negative Normal NEGATIVE [facility] Comment on above: Performed By: #### E RUR ####[facility] Al[address] [place], [place] [address]Dr. Sydney David Clarity (U) CLEAR Normal CLEAR [facility] Comment on above: Performed By: #### E RUR ####[facility] [address] [place], [place] [address]Dr. Sydney David Color (U) LT. YELLOW Normal YELLOW [facility] Comment on above: Performed By: #### E RUR ####[facility] Ox[address] [place], [place] [address]Dr. Sydney David ERUAHD A micrscopic examination will be performed if indicated. Normal [facility] Comment on above: Performed By: #### E RUR ####[facility] Het[address]fapft[address] [place], [place] [address]Dr. Sydney David Glucose Ql (U) Negative Normal NEGATIVE [facility] Comment on above: Performed By: #### E RUR ####[facility] [address] [place], [place] [address]Dr. Sydney David Hemoglobin Ql (U) Negative Normal NEGATIVE The [facility] Comment on above: Performed By: #### E RUR ####[facility] Cw[address] [place], [place] [address]Dr. Sydney David Ketones Ql (U) Negative Normal NEGATIVE [facility] Comment on above: Performed By: #### E RUR ####[facility] [address] [place] [address]Dr. Sydney David LEUKOCYTES Negative Normal NEGATIVE [facility] Comment on above: Performed By: #### E RUR ####[facility] [address] [place] [address]Dr. Sydney David Nitrite Ql (U) Negative Normal NEGATIVE [facility] Comment on above: Performed By: #### E RUR ####[facility] [address] [place] [address]Dr. Sydney David pH (U) 5.5 [pH] Normal 5-9 [facility] Comment on above: Performed By: #### E RUR ####[facility] Gu[address] [place], [place] [address]Dr. Sydney David SPEC GRAVITY 1.010 Normal 1.005-<=1.[address] [facility] Comment on above: Performed By: #### E RUR ####[facility] M[address]ws[address] [place], [place] [address]Dr. Sydney David UA PROTEIN Negative Normal NEGATIVE/ TRACE [facility] Comment on above: Performed By: #### E RUR ####[facility] Uhhiqoiogn[address] [place], [place] [address]Dr. Sydney David UR MICRO IND NOT INDICATED Normal The [facility] Comment on above: Performed By: #### E RUR ####[facility] Evok[address]xfqs[address] [place], [place] [address]Dr. Sydney David Urobilinogen Qn (U) 0.2 {Johan'U}/dL Normal 0.2 - 1. 0 [facility] Comment on above: Performed By: #### E RUR ####[facility] [address] [place], [place] [address]Dr. Sdyney David Eosinophils Auto (Bld) [#/Vo l]Ordered By: Maribeth Vuong on 07-15-2022 Eosinophils (Bld) [#/Vol] 0.6 10*3/uL 0.0-0.45 [facility] Eosinophils/100 WBC Auto (Bl d)Ordered By: Maribeth Vuong on 07-15-2022 Eosinophils/100 WBC (Bld) 6.1 % . [facility] Erythrocyte distribution wid th Auto (RBC) [Ratio]Ordered By: Maribeth Vuong on 07-15-2022 Erythrocyte distribution width (RBC) [Ratio] 13.6 % 12.0-14.8 [facility] Hematocrit Auto (Bld) [Volum e fraction]Ordered By: Maribeth Vuong on 07-15-2022 Hematocrit (Bld) [Volume fraction] 47.4 % 38.8-50.0 [facility] Hemoglobin [Mass/volume] in BloodOrdered By: Maribeth Vuong on 07-15-2022 Hemoglobin (Bld) [Mass/Vol] 15.5 g/dL 13.0-17.0 [facility] Leukocytes [#/volume] correc gris for nucleated erythrocytes in Blood by Automated counOrdered By: Maribeth Vuong on 07-15-2022 WBC corrected for nucl RBC Auto (Bld) [#/Vol] 9.2 10*3/uL 4.1-10.5 [facility] Lipaseon 07-15-2022 Lipase [Catalytic activity/Vol] 80.44022 U/L Normal 11.0-82.0 U/L [facility] Other Lipase [Enzymatic activity/v olume] in Serum or PlasmaOrdered By: Maribeth Vuong on 07-15-2022 Lipase [Catalytic activity/Vol] 80.0 U/L 11.0-82.0 [facility] Lymphocytes Auto (Bld) [#/Vo l]Ordered By: Maribeth Vuong on 07-15-2022 Lymphocytes (Bld) [#/Vol] 4.3 10*3/uL 1.00-4.8 [facility] Lymphocytes/100 WBC Auto (Bl d)Ordered By: Maribeth Vuong on 07-15-2022 Lymphocytes/100 WBC (Bld) 46.5 % . [facility] MCH Auto (RBC) [Entitic mass ]Ordered By: Maribeth Vuong on 07-15-2022 MCH (RBC) [Entitic mass] 30.2 pg 27.5-35.2 [facility] MCHC Auto (RBC) [Mass/Vol]Or dered By: Maribeth Vuong on 07-15-2022 MCHC (RBC) [Mass/Vol] 32.7 g/dL 32.5-35.6 [facility] MCV Auto (RBC) [Entitic vol] Ordered By: Maribeth Vuong on 07-15-2022 MCV (RBC) [Entitic vol] 92.3 fL 83.5-101 F [facility] Monocytes Auto (Bld) [#/Vol] Ordered By: Maribeth Vuong on 07-15-2022 Monocytes (Bld) [#/Vol] 0.8 10*3/uL 0.0-0.8 [facility] Monocytes/100 WBC Auto (Bld) Ordered By: Maribeth Vuong on 07-15-2022 Monocytes/100 WBC (Bld) 8.3 % . F [facility] Neutrophils Auto (Bld) [#/Vo l]Ordered By: Maribeth Vuong on 07-15-2022 Neutrophils (Bld) [#/Vol] 3.6 10*3/uL 1.8-7.7 [facility] Neutrophils/100 WBC Auto (Bl d)Ordered By: Maribeth Vuong on 07-15-2022 Neutrophils/100 WBC (Bld) 38.6 % . [facility] Nucleated erythrocytes [Pres ence] in Blood by Automated countOrdered By: Maribeth Vuong on 07-15-2022 Nucleated RBC Auto Ql (Bld) 0.0 /100{WBC} 0-0.5 [facility] PROF CHEM 8 (BAS METB)on Anion gap [Moles/Vol] 13.3 mmol/L Normal [facility] Comment on above: Performed By: #### B MP #### [facility] [address] [address] [address] Sydney David Calcium [Mass/Vol] 9.1 mg/dL Normal 8.5-10.1 [facility] Comment on above: Performed By: #### B MP #### [facility] [address] [place], [place] [address] Dr. Sydney David Chloride [Moles/Vol] 102 mmol/L Normal 98-107 [facility] Comment on above: Performed By: #### B MP #### [facility] [address] [address] [address] Sydney David CO2 [Moles/Vol] 27.2 mmol/L Normal 21.0-32.0 [facility] Comment on above: Performed By: #### B MP #### [facility] [address] [address] [address] Sydney David Creatinine [Mass/Vol] 1.08 mg/dL Normal 0.70-1.30 [facility] Comment on above: Performed By: #### B MP #### [facility] [address] [place] [address] [address] Sydney David EGFR-AF VENEZUELAN >60 Normal >=60 [facility] Comment on above: Performed By: #### B MP #### [facility] [address] [place] [address] [address] Sydnye David EGFR-NON AF VENEZUELAN >60 Normal >=60 [facility] Comment on above: Performed By: #### B MP #### [facility] [address] [place] [address] [address] Sydney David Glucose [Mass/Vol] 116 mg/dL Critically high 74-106 [facility] Comment on above: Performed By: #### B MP #### [facility] [address] [address] [address] Sydney David Potassium [Moles/Vol] 3.5 mmol/L Normal 3.5-5.1 [facility] Comment on above: Performed By: #### B MP #### [facility] [address] [address] [address] Sydney David Sodium [Moles/Vol] 139 mmol/L Normal 136-145 [facility] Comment on above: Performed By: #### B MP #### [facility] [address] [place] [address] [address] Sydney David Urea nitrogen [Mass/Vol] 12.0 mg/dL Normal 7.0-18.0 [facility] Comment on above: Performed By: #### B MP #### [facility] [address] [address] [address] Sydney David Urea nitrogen/Creatinine [Mass ratio] 11.1 mg/mg Normal [facility] Comment on above: Performed By: #### B MP #### [facility] [address] [place] [address] Dr. Sydney David Platelet mean volume Auto (B ld) [Entitic vol]Ordered By: Maribeth Vuong on 07-15-2022 Platelet mean volume (Bld) [Entitic vol] 11.1 fL 6.6-10.1 [facility] WBC Auto (Bld) [#/Vol]Ordere d By: Maribeth Vuong on 07-15-2022 WBC (Bld) [#/Vol] 9.2 10*3/uL 4.1-10.5 [facility] Alanine aminotransferase [En zymatic activity/volume] in Serum or PlasmaOrdered By: Maribeth Vuong on 07-12-2022 ALT [Catalytic activity/Vol] 68 U/L 7-52 [facility] Albumin [Mass/volume] in Ser um or Plasma by Bromocresol green (BCG) dye binding methoOrdered By: Maribeth Vuong on 07-12-2022 Albumin BCG dye [Mass/Vol] 4.7 g/dL 3.5-5.7 [facility] Alkaline phosphatase [Enzyma tic activity/volume] in Serum or PlasmaOrdered By: Maribeth Vuong on 07-12-2022 ALP [Catalytic activity/Vol] 33 U/L 34-104 [facility] Aspartate aminotransferase [ Enzymatic activity/volume] in Serum or PlasmaOrdered By: Maribeth Vuong on 07-12-2022 AST [Catalytic activity/Vol] 29 U/L 13-39 [facility] Bilirubin.total [Mass/volume ] in Serum or PlasmaOrdered By: Maribeth Vuong on 07-12-2022 Bilirubin [Mass/Vol] 0.6 mg/dL 0.3-1.0 [facility] Calcium [Mass/volume] in Ser um or PlasmaOrdered By: Maribeth Vuong on 07-12-2022 Calcium [Mass/Vol] 10.1 mg/dL 8.6-10.3 [facility] Carbon dioxide, total [Moles /volume] in Serum or PlasmaOrdered By: Maribeth Vuong on 07-12-2022 CO2 [Moles/Vol] 27.5 mmol/L 21.0-31.0 [facility] Chloride [Moles/volume] in S flash or PlasmaOrdered By: Maribeth Vuong on 07-12-2022 Chloride [Moles/Vol] 106 mmol/L 98-107 [facility] Cholesterol [Mass/volume] in Serum or PlasmaOrdered By: Maribeth Vuong on 07-12-2022 Cholesterol [Mass/Vol] 296 mg/dL 140-200 [facility] Comment on above: Chol less than 200 m g/dl low riskChol 201-239 mg/dl borderline riskChol 240 mg/dl and greater high risk Cholesterol in LDL Calc [Mas s/Vol]Ordered By: Maribeth Vuong on 07-12-2022 Cholesterol in LDL [Mass/Vol] 206 mg/dL 0-100 [facility] Comment on above: LDL ATP III CLASSIFI CATIONLDL less than 100 mg/dL OptimalLDL 100-129 mg/dL Near or above optimalLDL 130-159 mg/dL Borderline highLDL 160-189 mg/dL HighLDL greater than 189 mg/dL Very high Cholesterol in VLDL Calc [Ma ss/Vol]Ordered By: Maribeth Vuong on 07-12-2022 Cholesterol in VLDL [Mass/Vol] 53 mg/dL [facility] Creatinine [Mass/volume] in Serum or PlasmaOrdered By: Maribeth Vuong on 07-12-2022 Creatinine [Mass/Vol] 0.96 mg/dL 0.70-1.30 [facility] Globulin Calc (S) [Mass/Vol] Ordered By: Maribeth Vuong on 07-12-2022 Globulin (S) [Mass/Vol] 2.6 g/dL [facility] Glucose [Mass/volume] in Ser um or PlasmaOrdered By: Maribeth Vuong on 07-12-2022 Glucose [Mass/Vol] 106 mg/dL 70-100 [facility] Comment on above: ADA recommended refe rence rangeRandom Glucose Reference Range is dependent on time and content of last meal. Glucose of more than 200 mg/dL in a nonstressed, ambulatory subject supports the diagnosis of Diabetes Mellitus. No Panel InformationOrdered By: Maribeth Vuong on 07-12-2022 Estimated GFR (CKD-EPI) > 60.0 mL/Min [facility] Creatinine Clearance (Chem N/A [facility] Potassium [Moles/volume] in Serum or PlasmaOrdered By: Maribeth Vuong on 07-12-2022 Potassium [Moles/Vol] 4.3 mmol/L 3.5-5.1 [facility] Prostate specific Ag [Mass/v olume] in Serum or PlasmaOrdered By: Maribeth Vuong on 07-12-2022 Prostate specific Ag [Mass/Vol] 0.670 ng/mL 0.000-4.000 [facility] Protein [Mass/volume] in Ser um or PlasmaOrdered By: Maribeth Vuong on 07-12-2022 Protein [Mass/Vol] 7.3 g/dL 6.4-8.9 [facility] Serum or plasma albumin/glob ulin mass ratioOrdered By: Maribeth Vuong on 07-12-2022 Albumin/Globulin [Mass ratio] 1.8 {ratio} [facility] Serum or plasma anion gap de terminationOrdered By: Maribeth Vuong on 07-12-2022 Anion gap [Moles/Vol] 11.8 mmol/L 6.0-15.0 [facility] Serum or plasma high density lipoprotein (HDL) cholesterol measurementOrdered By: Maribeth Vuong on 07-12-2022 Cholesterol in HDL [Mass/Vol] 37 mg/dL 29-71 [facility] Comment on above: HDL CHOL ATP-III CLA SSIFICATION Cardiovascular RiskHDL > or equal to 60 mg/dL LOWHDL < 40 mg/dL HIGH Serum or plasma total choles terol/high density lipoprotein (HDL) cholesterol mass ratOrdered By: Maribeth Vuong on 07-12-2022 Cholesterol.total/Patti sterol in HDL [Mass ratio] 8.0 {ratio} <5.0 [facility] Sodium [Moles/volume] in Ser um or PlasmaOrdered By: Maribeth Vuong on 07-12-2022 Sodium [Moles/Vol] 141 mmol/L 136-145 [facility] Triglyceride [Mass/volume] i n Serum or PlasmaOrdered By: Maribeth Carolann on 07-12-2022 Triglyceride [Mass/Vol] 266 mg/dL 0-149 F [facility] Comment on above: TRIG ATP III CLASSIF ICATIONTRIG less than 150 mg/dL NormalTRIG 150-199 mg/dL Borderline highTRIG 200-500 mg/dL High TRIG greater than 500 mg/dL Very highStandard traceable to the Center for Disease Conrtrol and Prevention (CDC) test method. Urea nitrogen [Mass/volume] in Serum or PlasmaOrdered By: Maribeth Vuong on 07-12-2022 Urea nitrogen [Mass/Vol] 12 mg/dL 10-29 [facility] XR LSPINE 2_3 VIEWSon 2022 [...] by: DAMARIS ESPINOSA Date: 2022-07-02 14:[address] [facility] MRI PELVIS WO CONon 06-28-19 23 MRI [...] DAMARIS ESPINOSA Date: 2022-06-27 09:[address] [facility] MRI LSORTIZ WO CONon 06-27-19 23 MRI LSEL PASO WO CON EXAMINATION: MRI LSEL PASO WO CON HISTORY: Lumbar radiculitis , urinary [...] RENE LAUREN Date: 2022-06-26 15:[address] [facility] XR lumbar spine AP/LAT/FLX/E XTon 01-08-2021 XR lumbar spine AP/LAT/FLX/EXT [facility] Other XR lumbar spine AP/LAT/FLX/EXT [facility] Other XR lumbar spine AP/LAT/FLX/EXT [address] [place] [address] [facility] Other XR lumbar spine AP/LAT/FLX/EXT [place] [id number] [facility] Other XR lumbar spine AP/LAT/FLX/EXT XRay Report [facility] Other XR lumbar spine AP/LAT/FLX/EXT Signed [facility] Other XR lumbar spine AP/LAT/FLX/EXT Patient: Neal Parker MR#: [id number] [facility] Other XR lumbar spine AP/LAT/FLX/EXT 206 [facility] Other XR lumbar spine AP/LAT/FLX/EXT : 1980 Acct:[id number] [facility] Other XR lumbar spine AP/LAT/FLX/EXT Age/Sex: 40 / M ADM Date: 01/08/21 [facility] Other XR lumbar spine AP/LAT/FLX/EXT Loc: [facility] Room: Type: [facility] Other XR lumbar spine AP/LAT/FLX/EXT Attending Dr: Charles Solares MD [facility] Other XR lumbar spine AP/LAT/FLX/EXT Ordering Provider: Charles Solares MD [facility] Other XR lumbar spine AP/LAT/FLX/EXT Date of Service: 01/08/21 [facility] Other XR lumbar spine AP/LAT/FLX/EXT XR/XR lumbar spine AP/LAT/FLX/EXT: Other spondylosis with radiculopathy, [facility] Other XR lumbar spine AP/LAT/FLX/EXT lumbar region [facility] Other XR lumbar spine AP/LAT/FLX/EXT Copies to: Charles Solares MD [facility] Other XR lumbar spine AP/LAT/FLX/EXT Lumbar spine 01/08/2021. [facility] Other XR lumbar spine AP/LAT/FLX/EXT CLINICAL DATA: Low back pain. [facility] Other XR lumbar spine AP/LAT/FLX/EXT FINDINGS: 4 standing views of the lumbar spine were obtained including lateral views in the [facility] Other XR lumbar spine AP/LAT/FLX/EXT neutral, flexion, and extension positions. This examination is compared with a prior study 04/14/2019. [facility] Other XR lumbar spine AP/LAT/FLX/EXT There are stable postsurgical changes related to lumbosacral spinal fusion. There is also stable [facility] Other XR lumbar spine AP/LAT/FLX/EXT anterior malalignment of L5 on S1. Mild posterior malalignment of L2 on L3 is noted. Overall [facility] Other XR lumbar spine AP/LAT/FLX/EXT vertebral alignment does not significantly change with limited flexion or limited extension. Disc [facility] Other XR lumbar spine AP/LAT/FLX/EXT space narrowing is identified. Minimal degenerative changes are seen. [facility] Other XR lumbar spine AP/LAT/FLX/EXT XR/XR lumbar spine AP/LAT/FLX/EXT [facility] Other XR lumbar spine AP/LAT/FLX/EXT IMPRESSION: Stable postsurgical changes and mild vertebral malalignment at the lumbosacral junction. [facility] Other XR lumbar spine AP/LAT/FLX/EXT Mild posterior malalignment of L2 on L3. No instability with limited flexion or extension. Disc [facility] Other XR lumbar spine AP/LAT/FLX/EXT space narrowing and minimal degenerative changes. [facility] Other XR lumbar spine AP/LAT/FLX/EXT Impression dictated by: Jude Stock Jr., M.D.01/08/2021 2:59 PM [facility] Other XR lumbar spine AP/LAT/FLX/EXT Dictation Location: [place] [address] [facility] Other XR lumbar spine AP/LAT/FLX/EXT Transcribed By: JIL 01/08/21 [facility] Other XR lumbar spine AP/LAT/FLX/EXT Dictated By: Jude Stock Jr, MD 01/08/21 [facility] Other XR lumbar spine AP/LAT/FLX/EXT Signed By: [facility] Other XR lumbar spine AP/LAT/FLX/EXT 01/08/21 [facility] Other CNOVon 06-09-2018 CNOV Office Visit (NSFRVW ) NEAL PARKER ([id number]) 1980 M Date Time Provider Department 06/09/18 [...] fx. Had surgery by Dr. Robbie Wakefield [facility] in [place]. 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 Author Type: [...] fx. Had surgery by Dr. Robbie Wakefield [facility] in [place]. 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 Hx of back problems and surgeries. Took two [place], flexeril, celebrex prior to coming. Needs another surgery for back. History of Present Illness 37-year-old white male presents emergency room with his and complaints of worsening lower back pain after bending over to light his heater in his shop. Patient has had prior back surgery by Dr. Sen in [place] March 14, 2015. Patient states he has [...] Anxious mood & affect. Integumentary: Warm, Dry, [place] Medical Decision Making X-rays did not demonstrate [...] Information RENE WASMARYCRUZ In 3 days 04/04/[address] [address] Business (1) Additional Instructions: Call tomorrow for [...] made to ensure accuracy, however, inadvertently computerized digital solution architect mistakes may be present. Patient was treated and evaluated by the physician special events assistant. The attending physician was in the [...] acute fracture. Signed By: Andreas Cordova MD [facility] Comment on above: Result Comment: Elec tronically Signed By: Abdelrahman Olvera PA-C\.br\Date and Time Signed: 04/01/18 12:55 EST\.br\Electronically Co-Signed By: Lashay Li DO\.br\Date and Time Co-Signed: 04/07/18 16:20 EST Coding Summary.on 04-02-2018 Coding Summary. CODING DATE: 04/02/2018 FINAL [facility] STATUS: Home (Routine DC) PAYOR: Commercial Insurance APC DESCRIPTION 5522 Level 2 Imaging without Contrast ADMIT DX: REASON FOR VISIT DX: M54.5 Low back pain FINAL DX: PRINCIPAL: M54.5 Low back pain SECONDARY: M53.3 Sacrococcygeal disorders, not elsewhere classified Z79.899 Other detention (current) drug therapy PYMT PROC APC STAT DESCRIPTION DOCTOR NAME DATE NOTE: The code number assigned matches the documented diagnosis and / or procedure in the patient's chart. However, the narrative phrase printed from the coding software may appear abbreviated, or result in slightly different terminology. Coded By: Laila Mcghee Date Saved: 04/02/2018 11:01 am Normal [facility] ED Clinical Summaryon 2017 ED Clinical Summary [place] [id number] ED Clinical Summary Person Information Name: NEAL PARKER/[facility] Age: 37 Years : 1980 12:00 AM Sex: Male Language: Wolof PCP: RENE MORRELL DO Marital Status: Visit [...] 1:01 PM 04/01/2018 1:01 PM ADDRESS: [address] [place] [id number] PHYS DOC NOTES: MEDICAL INFORMATION: Prescriptions Given: [...] Follow up: With: Address: When: RENE MORRELL [address] [place] [address] [facility] (1) In 3 days 04/04/2018 [...] the lower extremities DIAGNOSIS: Lumbosacral pain Normal [facility] ED Patient Education Noteon 04-01-2018 ED [...] stressful on the back to sit or undergraduate intern one place. Do not sit, drive, or undergraduate intern one place for more than 30 minutes [...] pillow under your knees. ? Only take lmcw-muk-aozpobf or prescription medicines as directed by your caregiver. Hdyi-knl-iowsgjh medicines to reduce pain and inflammation are [...] 03/24/2006 Document Revised: 09/22/2012 Document Reviewed: 07/26/2014 [facility]? Patient Information ?2015 [employer] This information is not intended to [...] the first months of treatment. Only take vhai-qvn-srfffoe or prescription medicines for pain, discomfort, or [...] Document Reviewed: 07/17/2009 ExitCare? Patient Information ?2014 [employer] This information is not intended to replace advice given to you by your health care provider. Make sure you discuss any questions you have with your health care provider. Normal [facility] ED Patient Summaryon 018 ED Patient Summary [address] [address] Patient Discharge Instructions Person Information Name: NEAL PARKER Age: 37 Years Arrival Date: 04/01/2018 11:05 AM Discharge Diagnosis: Lumbosacral pain Primary Care Physician: RENE MORRELL DO Provider Information Primary Provider: Lashay Li DO Advanced Plunger Machine Operator:Abdelrahman Olvera PA-C The exam and treatment you received in the Emergency Department were for an urgent problem and are not intended as complete care. It is important that you follow up with a doctor, nurse practitioner, or physician?s special events assistant for ongoing care. If your symptoms [...] Follow-up Instructions: With: Address: When: RENE MORRELL [address] [place], [place] [id number] [facility] (1) In 3 days 04/04/2018 [...] opioids can be used to help relieve cdxharss-di-cutljl pain and are often prescribed following a [...] be struggling with addiction, tell your health customer care agent and ask for guidance or call SAMHSA?S National Helpline at 2-732-835-PAJA. v Source: [place] Department of Health and Human Services/Center for Disease Control & Prevention Citizen Of [place] [facility] Medications Given: Medication Dose Route [...] Comment: Pharmacy Information: Thank you for choosing [facility] Patient Education Materials: Radicular Pain Radicular [...] the first months of treatment. Only take qkbk-dkn-tzlfoyo or prescription medicines for pain, discomfort, or [...] Document Reviewed: 07/17/2009 ExitCare? Patient Information ?2014 [employer] [facility]. This information is not intended to replace [...] stressful on the back to sit or undergraduate intern one place. Do not sit, drive, or undergraduate intern one place for more than 30 minutes [...] pillow under your knees. ? Only take bepf-jur-kiydejo or prescription medicines as directed by your caregiver. Yrti-ypi-feobtwa medicines to reduce pain and inflammation are [...] Document Reviewed: 07/26/2014 ExitCare? Patient Information ?2015 [employer] [facility]. This information is not intended to replace advice given to you by your health care provider. Make sure you discuss any questions you have with your health care provider. ELENA Bolden RUSSELL , have received the following patient education materials/instruction s and have verbalized understanding: Patient Education Materials: Radicular Pain; Back Pain, Adult Follow-up Instructions: With: Address: When: RENE MORRELL [address] [place] [id number] [employer] ([employer] In 3 days 04/04/2018 Comments: Call tomorrow [...] No further needs at this time. Normal [facility] XR Spine Lumbosacral Minimum 4 Viewson [...] MD Transcribed by: DARSHAN Technologist: DEAN Abebe [facility] Vital Signs Date Time Vital Sign Value Performing Clinician Facility 01-16-2024 07:45-0400 Body height 177.8 cm [facility] 01-16-2024 07:45-0400 Body mass index (BMI) [Ratio] 36.7 kg/m2 [facility] 01-16-2024 07:45-0400 Body weight 116.11 kg [facility] 01-16-2024 07:45-0400 Diastolic blood pressure 88 mm[Hg] [facility] 01-16-2024 07:45-0400 Heart rate 96 /min [facility] 01-16-2024 07:45-0400 SaO2% (BldA) [Mass fraction] 97 % [facility] 01-16-2024 07:45-0400 Systolic blood pressure 128 mm[Hg] [facility] 09-15-2023 10:19-0400 Body height 177.8 cm [facility] 09-15-2023 10:19-0400 Body mass index (BMI) [Ratio] 37.3 kg/m2 [facility] 09-15-2023 10:19-0400 Body weight 117.93 kg [facility] 09-15-2023 10:19-0400 Diastolic blood pressure 84 mm[Hg] [facility] 09-15-2023 10:19-0400 Heart rate 88 /min [facility] 09-15-2023 10:19-0400 SaO2% (BldA) [Mass fraction] 97 % [facility] 09-15-2023 10:19-0400 Systolic blood pressure 124 mm[Hg] [facility] 07-21-2023 07:59-0400 Body height 177.8 cm DO Maribeth Vuong Work Phone: [facility] 07-21-2023 07:59-0400 Body mass index (BMI) [Ratio] 40.1 kg/m2 DO Maribeth Vuong Work Phone: [facility] 07-21-2023 07:59-0400 Body weight 127 kg DO Maribeth Vuong Work Phone: [facility] 07-21-2023 07:59-0400 Diastolic blood pressure 86 mm[Hg] DO Maribeth Vuong Work Phone: [facility] 07-21-2023 07:59-0400 Heart rate 76 /min DO Maribeth Vuong Work Phone: [facility] 07-21-2023 07:59-0400 SaO2% (BldA) [Mass fraction] 98 % DO Maribeth Vuong Work Phone: [facility] 07-21-2023 07:59-0400 Systolic blood pressure 128 mm[Hg] DO Maribeth Vuong Work Phone: [facility] 01-17-2023 09:00-0400 Body height 177.8 cm Maribeth Vuong Other [facility] Other 01-17-2023 09:00-0400 Body mass index (BMI) [Ratio] 39.17 kg/m2 Maribeth Vuong Other [facility] Other 01-17-2023 09:00-0400 Body temperature 97.7 [degF] Maribeth Vuong Other [facility] Other 01-17-2023 09:00-0400 Body weight 123.83 kg Maribeth Vuong Other [facility] Other 01-17-2023 09:00-0400 Diastolic blood pressure 78 mm[Hg] Maribeth Vuong Other [facility] Other 01-17-2023 09:00-0400 SaO2% (BldA) [Mass fraction] 98 % Maribeth Vuong Other [facility] Other 01-17-2023 09:00-0400 Systolic blood pressure 112 mm[Hg] Maribeth Vuong Other [facility] Other 12-18-2022 09:45-0400 Body height 177.8 cm Maribeth Vuong Other [facility] Other 12-18-2022 09:45-0400 Body mass index (BMI) [Ratio] 37.73 kg/m2 Maribeth Vuong Other [facility] Other 12-18-2022 09:45-0400 Body weight 119.3 kg Maribeth Vuong Other [facility] Other 12-18-2022 09:45-0400 Diastolic blood pressure 86 mm[Hg] Maribeth Vuong Other [facility] Other 12-18-2022 09:45-0400 Respiratory rate 18 /min Maribeth Vuong Other [facility] Other 12-18-2022 09:45-0400 SaO2% (BldA) [Mass fraction] 95 % Maribeth Vuong Other [facility] Other 12-18-2022 09:45-0400 Systolic blood pressure 126 mm[Hg] Maribeth Vuong Other [facility] Other 12-12-2022 08:00-0400 Body height 177.8 cm Maribeth Vuong Other [facility] Other 12-12-2022 08:00-0400 Body mass index (BMI) [Ratio] 37.73 kg/m2 Maribeth Vuong Other [facility] Other 12-12-2022 08:00-0400 Body temperature 98.5 [degF] Maribeth Vuong Other [facility] Other 12-12-2022 08:00-0400 Body weight 119.3 kg Maribeth Vuong Other [facility] Other 12-12-2022 08:00-0400 Diastolic blood pressure 102 mm[Hg] Maribeth Vuong Other [facility] Other 12-12-2022 08:00-0400 SaO2% (BldA) [Mass fraction] 96 % Maribeth Vuong Other [facility] Other 12-12-2022 08:00-0400 Systolic blood pressure 150 mm[Hg] Maribeth Vuong Other [facility] Other 09-26-2022 10:22-0400 Diastolic blood pressure 108 mm[Hg] DO Maribeth Carolann Work Phone: [facility] 09-26-2022 10:22-0400 Heart rate 74 /min DO Maribeth Vuong Work Phone: [facility] 09-26-2022 10:22-0400 Respiratory rate 16 /min DO Maribeth Vuong Work Phone: [facility] 09-26-2022 10:22-0400 SaO2% (BldA) [Mass fraction] 98 % DO Maribeth Vuong Work Phone: [facility] 09-26-2022 10:22-0400 Systolic blood pressure 156 mm[Hg] DO Maribeth Vuong Work Phone: [facility] 09-26-2022 08:26-0400 Body height 175.26 cm DO Maribeth Vuong Work Phone: [facility] 09-26-2022 08:26-0400 Body temperature 98.5 [degF] DO Maribeth Vuong Work Phone: [facility] 09-26-2022 08:26-0400 Body weight 113.39 kg DO Maribeth Vuong Work Phone: [facility] 09-11-2022 09:45-0400 Body height 177.8 cm Maribeth Vuong Other [facility] Other 09-11-2022 09:45-0400 Body mass index (BMI) [Ratio] 35.37 kg/m2 Maribeth Carolann Other [facility] Other 09-11-2022 09:45-0400 Body weight 111.81 kg Maribeth Woodymer Other [facility] Other 09-11-2022 09:45-0400 Diastolic blood pressure 88 mm[Hg] Maribeth Vuong Other [facility] Other 09-11-2022 09:45-0400 Respiratory rate 18 /min Maribeth Vuong Other [facility] Other 09-11-2022 09:45-0400 SaO2% (BldA) [Mass fraction] 98 % Maribeth Vuong Other [facility] Other 09-11-2022 09:45-0400 Systolic blood pressure 142 mm[Hg] Maribeth Vuong Other [facility] Other 07-24-2022 10:30-0400 Body height 177.8 cm Igor Orr Other [facility] Other 07-24-2022 10:30-0400 Body mass index (BMI) [Ratio] 35.58 kg/m2 Igor Dominga Other [facility] Other 07-24-2022 10:30-0400 Body weight 112.49 kg Igor Dominga Other [facility] Other 07-24-2022 10:30-0400 Diastolic blood pressure 132 mm[Hg] Igor Scovanlucille Other [facility] Other 07-24-2022 10:30-0400 Systolic blood pressure 187 mm[Hg] Igor Scdian Other [facility] Other 07-15-2022 12:15-0400 Body height 177.8 cm Maribeth Vuong Other [facility] Other 07-15-2022 12:15-0400 Body mass index (BMI) [Ratio] 35.58 kg/m2 Maribeth Vuong Other [facility] Other 07-15-2022 12:15-0400 Body temperature 98.1 [degF] Maribeth Vuong Other [facility] Other 07-15-2022 12:15-0400 Body weight 112.49 kg Maribeth Vuong Other [facility] Other 07-15-2022 12:15-0400 Diastolic blood pressure 110 mm[Hg] Maribeth Woodymer Other [facility] Other 07-15-2022 12:15-0400 SaO2% (BldA) [Mass fraction] 97 % Maribeth Woodymer Other [facility] Other 07-15-2022 12:15-0400 Systolic blood pressure 156 mm[Hg] Maribeth Woodymer Other [facility] Other 01-04-2022 12:15-0400 Body height 177.8 cm Maribeth Vuong Other [facility] Other 01-04-2022 12:15-0400 Body mass index (BMI) [Ratio] 34.39 kg/m2 Maribeth Vuong Other [facility] Other 01-04-2022 12:15-0400 Body weight 108.73 kg Maribeth Woodymer Other [facility] Other 01-04-2022 12:15-0400 Diastolic blood pressure 86 mm[Hg] Maribeth Carolann Other [facility] Other 01-04-2022 12:15-0400 Respiratory rate 18 /min Maribeth Woodymer Other [facility] Other 01-04-2022 12:15-0400 SaO2% (BldA) [Mass fraction] 98 % Maribeth Carolann Other [facility] Other 01-04-2022 12:15-0400 Systolic blood pressure 136 mm[Hg] Maribeth Carolann Other [facility] Other 06-22-2021 10:00-0400 Body height 177.8 cm Maribeth Vuong Other [facility] Other 06-22-2021 10:00-0400 Body mass index (BMI) [Ratio] 34.16 kg/m2 Maribeth Carolann Other [facility] Other 06-22-2021 10:00-0400 Body weight 108 kg Maribeth Vuong Other [facility] Other 06-22-2021 10:00-0400 Diastolic blood pressure 78 mm[Hg] Maribeth Carolann Other [facility] Other 06-22-2021 10:00-0400 Respiratory rate 18 /min Maribeth Carolann Other [facility] Other 06-22-2021 10:00-0400 SaO2% (BldA) [Mass fraction] 95 % Maribeth Vuong Other [facility] Other 06-22-2021 10:00-0400 Systolic blood pressure 118 mm[Hg] Maribeth Vuong Other [facility] Other 03-08-2021 12:15-0500 Body height 177.8 cm Charles Solares Other [facility] Other 03-08-2021 12:15-0500 Body mass index (BMI) [Ratio] 33.72 kg/m2 Charles Solares Other [facility] Other 03-08-2021 12:15-0500 Body weight 106.6 kg Charles Solares Other [facility] Other 02-12-2021 11:00-0500 Body height 177.8 cm Maribeth Vuong Other [facility] Other 02-12-2021 11:00-0500 Body mass index (BMI) [Ratio] 33.37 kg/m2 Maribeth Vuong Other [facility] Other 02-12-2021 11:00-0500 Body temperature 98.3 [degF] Maribeth Vuong Other [facility] Other 02-12-2021 11:00-0500 Body weight 105.51 kg Maribeth Vuong Other [facility] Other 02-12-2021 11:00-0500 Diastolic blood pressure 88 mm[Hg] Maribeth Vuong Other [facility] Other 02-12-2021 11:00-0500 Respiratory rate 18 /min Maribeth Vuong Other [facility] Other 02-12-2021 11:00-0500 SaO2% (BldA) [Mass fraction] 99 % Maribeth Vuong Other [facility] Other 02-12-2021 11:00-0500 Systolic blood pressure 134 mm[Hg] Maribeth Vuong Other [facility] Other 02-01-2021 11:45-0400 Body height 177.8 cm Maribeth Vuong Other [facility] Other 02-01-2021 11:45-0400 Body mass index (BMI) [Ratio] 35.48 kg/m2 Maribeth Vuong Other [facility] Other 02-01-2021 11:45-0400 Body temperature 98.2 [degF] Maribeth Vuong Other [facility] Other 02-01-2021 11:45-0400 Body weight 112.18 kg Maribeth Vuong Other [facility] Other 02-01-2021 11:45-0400 Diastolic blood pressure 86 mm[Hg] Maribeth Vuong Other [facility] Other 02-01-2021 11:45-0400 Respiratory rate 18 /min Maribeth Vuong Other [facility] Other 02-01-2021 11:45-0400 SaO2% (BldA) [Mass fraction] 97 % Maribeth Vuong Other [facility] Other 02-01-2021 11:45-0400 Systolic blood pressure 136 mm[Hg] Maribeth Vuong Other [facility] Other Encounters Encounter Date Encounter Type Care Provider Facility Start: 03-08-2024 End: 03-08-2024 ambulatory Maribeth Vuong Facility:[facility] Start: 02-24-2024 End: 02-24-2024 ambulatory [facility] Work Phone: Start: 02-24-2024 End: 02-24-2024 Patient encounter procedure [facility] Work Phone: Start: 01-16-2024 End: 01-16-2024 ambulatory [facility] Work Phone: Start: 01-16-2024 End: 01-16-2024 Patient encounter procedure [facility] [place] Work Phone: Start: 09-30-2023 End: 10-02-2023 Evaluation and management of inpatient Diaz Valdovinos MD Facility:[facility] Start: 09-25-2023 End: 09-25-2023 ambulatory Diaz Valdovinos MD Facility:[facility] Start: 09-15-2023 End: 09-15-2023 ambulatory [facility] Work Phone: Start: 09-15-2023 End: 09-15-2023 Patient encounter procedure [facility] [place] Work Phone: Start: 09-10-2023 End: 09-10-2023 ambulatory Diaz Valdovinos MD Facility:[facility] Start: 07-21-2023 End: 07-21-2023 ambulatory DO Maribeth Vuong Work Phone: [facility] Work Phone: Start: 07-21-2023 End: 07-21-2023 Patient encounter procedure DO Maribeth Vuong Work Phone: [facility] [place] Work Phone: Start: 06-03-2023 End: 06-03-2023 ambulatory Nisha Villanueva Facility:[facility] Start: 06-03-2023 End: 06-03-2023 Patient encounter procedure DO Maribeth Vuong Work Phone: [facility] [place] [facility] Work Phone: Start: 05-29-2023 Non-patient / Non-visit DO Maribeth Vuong Work Phone: [facility] Work Phone: Start: 03-13-2023 End: 03-13-2023 ambulatory Maribeth Vuong Other [facility] Other Start: 03-13-2023 Telephone encounter Maribeth Mercer [facility] [place] [facility] Start: 02-05-2023 End: 02-05-2023 ambulatory Maribeth Vuong Other [facility] Other Start: 02-05-2023 Telephone encounter Maribeth Mercer [facility] Start: 01-17-2023 End: 01-17-2023 ambulatory Maribeth Vuong Other [facility] Other Start: 01-17-2023 Encounter for genera l adult medical examination without abnormal findings Maribeth Vuong [facility] [place] Start: 01-17-2023 Periodic preventive med est patient 40-64yrs Maribeth Vuong [facility] Start: 12-18-2022 (Procedure) Short Maribeth Vuong [facility] Start: 12-18-2022 End: 12-18-2022 ambulatory Maribeth Vuong Other [facility] Other Start: 12-12-2022 End: 12-12-2022 ambulatory Maribeth Vuong Other [facility] Other Start: 12-12-2022 Office outpatient visit 15 minutes Maribeth Vuong [facility] Start: 12-05-2022 End: 12-05-2022 ambulatory Maribeth Vuong Other [facility] Other Start: 12-05-2022 Telephone encounter Maribeth Mercer [facility] [place] Start: 09-28-2022 End: 09-28-2022 ambulatory Nash Cardenas Other [facility] Other Start: 09-28-2022 Telephone encounter [facility] Start: 09-26-2022 End: 09-26-2022 Admission to same day surgery center DO Maribeth Vuong Work Phone: [facility] Work Phone: Start: 09-26-2022 End: 09-26-2022 ambulatory DO Maribeth Vuong Work Phone: [facility] Work Phone: Start: 09-11-2022 (Procedure) Short Maribeth Vuong [facility] Start: 09-11-2022 End: 09-11-2022 ambulatory Maribeth Vuong Other [facility] Other Start: 09-10-2022 End: 09-10-2022 ambulatory Maribeth Vuong Other [facility] Other Start: 09-10-2022 Telephone encounter Maribeth Mercer [facility] Start: 09-03-2022 End: 09-03-2022 ambulatory NARENDRANATH LAKSHMIPATHY . Facility:[facility] Start: 08-20-2022 End: 08-20-2022 ambulatory DO Maribeth Williamson Carol[place] Work Phone: [facility] Work Phone: Start: 08-20-2022 End: 08-20-2022 Patient encounter procedure DO Maribeth Vuong Work Phone: [facility] [place] Start: 08-16-2022 End: 08-17-2022 ambulatory NARENDRANATH LAKSHMIPATHY . Facility:[facility] Start: 08-02-2022 End: 08-02-2022 ambulatory Maribeth Vuong Other [facility] Other Start: 08-02-2022 Telephone encounter Maribeth Mercer [facility] [place] Start: 07-30-2022 End: 07-30-2022 ambulatory NARENDRANATH LAKSHMIPATHY . Facility:[facility] Start: 07-24-2022 End: 07-24-2022 ambulatory Igor Orr Other [facility] Other Start: 07-24-2022 Office outpatient ne w 30 minutes Igor Orr [facility] Start: 07-23-2022 End: 07-24-2022 ambulatory NARENDRANATH LAKSHMIPATHY . Facility:[facility] Start: 07-16-2022 End: 07-16-2022 ambulatory Maribeth Vuong Other [facility] Other Start: 07-16-2022 Telephone encounter Maribeth Mercer [facility] Start: 07-15-2022 Office outpatient visit 25 minutes Maribeth Woodymer [facility] [place] Start: 07-15-2022 Telephone encounter Maribeth Mercer [facility] Start: 07-15-2022 End: 07-15-2022 ambulatory DO Maribeth Vuong Work Phone: [facility] Other Start: 07-15-2022 End: 07-15-2022 Patient encounter procedure DO Maribeth Vuong Work Phone: [facility] Start: 07-12-2022 End: 07-12-2022 ambulatory DO Maribeth Vuong Work Phone: [facility] Work Phone: Start: 07-12-2022 End: 07-12-2022 Patient encounter procedure DO Maribeth Vuong Work Phone: [facility] [place] Work Phone: Start: 07-02-2022 End: 07-03-2022 ambulatory NARENDRANATH LAKSHMIPATHY . Facility:[facility] Start: 07-02-2022 End: 07-03-2022 ambulatory VANE MERCADO . Facility:[facility] Start: 06-26-2022 End: 06-27-2022 ambulatory BRIT SCHUSTER . Facility:[facility] Start: 06-13-2022 End: 06-14-[address] JESSICA JOEL . Facility:[facility] Start: 03-14-2022 End: 03-15-[address] JESSICA JOEL . Facility:[facility] Start: 02-19-2022 End: 02-19-[address] JESSICA JOEL . Facility:[facility] Start: 02-07-2022 End: 02-08-[address] JESSICA JOEL . Facility:[facility] Start: 01-04-2022 End: 01-04-2022 ambulatory Maribeth Vuong Other [facility] Other Start: 01-04-2022 Encounter for genera l adult medical examination without abnormal findings Maribeth Vuong [facility] [place] Start: 01-04-2022 Periodic preventive med est patient 40-64yrs Maribeth Vuong [facility] [place] Start: 12-13-2021 End: 12-14-[address] JESSICA JOEL . Facility:[facility] Start: 10-31-2021 End: 11-01-[address] JESSICA JOEL . Facility:[facility] Start: 10-03-2021 End: 10-04-2021 ambulatory BRIT SCHUSTER . Facility:[facility] Start: 09-29-2021 End: 09-29-2021 ambulatory MARIBETH VUONG Facility:[facility] Start: 08-17-2021 End: 08-17-2021 ambulatory Charles Solares Other [facility] Other Start: 08-17-2021 Telephone encounter [facility] [place] Start: 08-07-2021 End: 08-07-2021 ambulatory Charles Solares Other [facility] Other Start: 08-07-2021 Telephone encounter [facility] [place] [facility] Start: 07-13-2021 End: 07-13-2021 ambulatory Maribeth Vuong Other [facility] Other Start: 07-13-2021 Telephone encounter Maribeth Mercer [facility] [place] Start: 07-09-2021 End: 07-09-2021 ambulatory Charles Hernandezer Other [facility] Other Start: 07-09-2021 Office outpatient visit 25 minutes Charles Felter [facility] [place] Start: 06-22-2021 End: 06-22-2021 ambulatory Maribeth Vuong Other [facility] Other Start: 06-22-2021 Office outpatient visit 15 minutes Maribeth Vuong [facility] [place] Start: 06-06-2021 End: 06-06-2021 ambulatory Charles Hernandezer Other [facility] Other Start: 06-06-2021 Office outpatient visit 25 minutes Charles Hernandezer [facility] [place] Start: 05-29-2021 End: 05-29-2021 ambulatory Maribeth Vuong Other [facility] Other Start: 05-29-2021 Telephone encounter Maribeth Mercer [facility] Start: 05-22-2021 End: 05-22-2021 ambulatory Maribeth Vuong Other [facility] Other Start: 05-22-2021 Telephone encounter Maribeth Mercer [facility] [place] Start: 05-21-2021 End: 05-21-2021 ambulatory Maribeth Vuong Other [facility] Other Start: 05-21-2021 Telephone encounter Maribeth Mercer [facility] Start: 05-08-2021 End: 05-08-2021 ambulatory Charles Hernandezer Other [facility] Other Start: 05-08-2021 Office outpatient visit 25 minutes Charles Felter [facility] [place] Start: 04-12-2021 End: 04-12-2021 ambulatory Charles Hernandezer Other [facility] Other Start: 04-12-2021 Office outpatient visit 25 minutes Charles Felter [facility] [place] Start: 03-08-2021 End: 03-08-2021 ambulatory Charles Hernandezer Other [facility] Other Start: 03-08-2021 Office outpatient visit 25 minutes Charles Felter [facility] [place] Start: 02-28-2021 End: 02-28-2021 ambulatory Maribeth Vuong Other [facility] Other Start: 02-28-2021 Telephone encounter Maribeth Mercer [facility] Start: 02-12-2021 End: 02-12-2021 ambulatory Maribeth Vuong Other [facility] Other Start: 02-12-2021 Office outpatient visit 15 minutes Maribeth Vuong [facility] [place] Start: 02-05-2021 Office outpatient visit 25 minutes Charles Felter [facility] [place] Start: 02-01-2021 Office outpatient visit 15 minutes Maribeth Vuong [facility] [place] Start: 01-08-2021 Office outpatient visit 25 minutes Charles Felter [facility] [place] Start: 06-09-2018 End: 06-10-2018 Patient encounter procedure PHI IDA RENE [facility] Start: 04-01-2018 End: 04-01-2018 Emergency department patient visit Lashay Hobsonz Facility:[facility] Procedures Date Procedure Procedure Detail Performing Clinician Start: 06-03-2023 Plain X-ray of left hand DO Maribeth Vuong Work Phone: Start: 09-26-2022 Colonoscopy DO Maribeth Vuong Work Phone: Start: 07-15-2022 Diagnostic radiograp hy of abdomen DO Maribeth Vuong Work Phone: Plan of Treatment Date Care Activity Detail Author Start: 09-26-2022 [facility] Patient Education Hemorrhoids (DC) [facility] Work Phone: [facility] Immunizations Immunization Date Immunization Notes Care Provider Fa cility 12-07-2020 COVID-19 Vaccine Coery - Documentation Purposes Only Charles Solares Other [facility] 03-25-2019 Depo-Medrol 80 mg Charles Andrew debbie Other [facility] Other 12-11-2017 Kenalog -40 mg Charles Solares Other [facility] Other 05-12-1997 diphtheria and tetan us toxoids, adsorbed for pediatric use [facility] Payers Date Payer Category Payer Unknown 2023 Self-pay [id number] 1980 Unknown [id number] 2.16.84 0.1.351008.3.579.2.727 1979 Unknown [id number] 2.16.84 0.1.296586.3.579.2.593 1979 Unknown [id number] 2..84 0.1.183020.3.579.2.593 1979 Unknown [id number] .16.84 0.1.608516.3.579.2.593 1979 Unknown [id number] 2.16.84 0.1.222377.3.579.2.593 1979 Unknown [id number] 2.16.84 0.1.903014.3.579.2.593 1979 Unknown [id number] 2.16.84 0.1.806056.3.579.2.593 1979 Unknown [id number] 2.16.84 0.1.149665.3.579.2.593 1979 Unknown [id number] 2.16.84 0.1.267182.3.579.2.593 1979 Unknown [id number] 2.16.84 0.1.334436.3.579.2.593 1979 Unknown [id number] 2.16.84 0.1.428739.3.579.2.593 1979 Unknown [id number] 2.16.84 0.1.532987.3.579.2.593 1979 Unknown [id number] 2.16.84 0.1.307212.3.579.2.593 1979 Unknown [id number] 2.16.84 0.1.026574.3.579.2.593 1979 Unknown [id number] 2.16.84 0.1.264278.3.579.2.593 1979 Unknown [id number] 2.16.84 0.1.138847.3.579.2.593 1979 Unknown [id number] 2.16.84 0.1.894203.3.579.2.593 1979 Unknown [id number] 2.16. 840.1.658857.3.579.2.196 1979 Unknown [id number] 2.16. 840.1.056040.3.579.2.196 1979 Unknown [id number] 2.16. 840.1.633556.3.579.2.196 1959 Medicaid [id number] 1959 Unknown [id number] 1959 Unknown [id number] Blue Cross Blue Shield [id number] 2.16.840.1.183865.19 Unknown [facility] [id number] Unknown [id number] 2.16.8 40.1.819177.3.579.2.531 Unknown [id number] 2.16.8 40.1.418291.3.579.2.531 Social History Date Type Detail Facility Unknown if ever smoked [facility] Other Sex Assigned At Sex Assigned At Bir th [facility] Other Start: 04-13-2019 Tobacco smoking status [facility] Smoker (finding) [facility] Start: 1980 Sex Assigned At Male F [facility] Start: 09-26-2022 Tobacco smoking status [facility] Current some day smoker [facility] Start: 01-16-2024 End: 01-16-2024 Tobacco smoking status [facility] Ex-smoker (finding) [facility] Start: 02-24-2024 Sex Male (finding) [facility] Goals Date Patient Goal Desired Activity /State Clinical Notes 01-08-2021 to 01-16-2024 Note Date & Type Note Facility 01-16-2024 Evaluation note Diagnosis Onset Date Resolution BPH (benign prostatic hyperplasia) chronic January 15 8:04am 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 January 16, 2024 8:04am Erectile dysfunction due to diseases classified elsewhere chronic January 15 8:04am HTN (hypertension) chronic Octobe r 2023 8:04am Other spondylosis with radiculopathy, lumbar region chronic January 15 8:04am Well adult noneactive January 16, 2024 8:04am Osteoarthritis of carpometacarpal joint of left thumb acute February 23, 2 024 8:37am Primary osteoarthritis, left hand acute February 23 024 8:37am [facility] Work Phone: 1(670) 621-518506-27-2024 NoteDate of Admission 09/30/2023 Date of Discharge 10/02/2023 [...] by Vishal PLEITEZ, Homar Mayers 10/02/23 05:07 [facility] 09-30-2023 NoteOperative Report DATE OF PROCEDURE: 09/30/2023 PREOPERATIVE DIAGNOSES: [...] 24cc [employer] SURGEON: Diaz Valdovinos MD STOCK[employer] ATTENDANT: MAGGIE Duran PA-C assisted throughout the procedure with positioning, draping, retraction, wound closure and dressing application. ANESTHESIA: General. 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 Due to the persistence of symptoms and reduction in the ADLs, patient elected surgical treatment. Patient, therefore, understood indications for the surgery as well as its risks, benefits, and alternatives. These risks include but are not limited to paralysis, infection, hematoma, dural tear, nerve root injury, nonunion, DVT/PE, NE, stroke, etc. All questions were answered. Informed consent was obtained. OPERATIVE PROCEDURE: The patient was taken to the operating room by the Anesthesiology Service and had satisfactory general anesthesia. A first- generation cephalosporin was given within 1 hour of [...] at L5-S1 with revision foraminotomies of the rightL5 and S1 nerve roots. Satisfied with this, we then turned our attention to perform spinal instrumentation and posterolateral fusion. Using anatomic landmarks and guided by direct visualization of the pedicles from within the canal, pedicle screws were placed bilaterally at L5 and S1. All the screws were completely intero sseous as determined by bony palpation except for the tip of the S1 screw which remained bicorticalby design. Before the screws were inserted, the [...] good position of the spine and all ofthe implants. Satisfied with this, we then achieved [...] cord monitoring remained stable (more content not included)...[facility]06-24-2024 NoteChief Complaint Back pain History of Present Illness The patient is a 42-year-old male with complaints of constant low back pain that radiates to shooting pain into his buttocks and perineal region, he did have pain radiating down the posterior legs but had a RFA in February, which helped with his shooting pain. He also has burning and hdnt-dmh-qfjkxgy along the right lateral foot and toes. Patient reports symptoms initially began 9 years ago after fracturing his L5. He then had surgery in 2014 but states he has been diagnosed with a nonfusion. Current VAS score of 8 out of 10. Modifying factors include Tylenol, meloxicam, Percocet, physical therapy in 2014, chiropractic treatment, injections with pain management. These modalities rated really no relief of his symptoms. Former smoker. He has had a prior L5-S1 posterior spinal fusion [id number]. Review of Systems Constitutional: No fevers, chills [...] Residential home. EX- ENDER, Home equipment: Walker/Cane. 1DOG Nutrition/Health Regular, Caffeine intake amount: 1 CUP [...] CT and MRI Lumbar Spine done at [place] Electronically signed by Qamar Recio PA-C 09/29/23 09:58 EDT Electronically signed by Diaz Valdovinos MD 09/30/2023 09:41 [facility] 03-13-2023 Evaluation note* Encounter Date Diagnosis Assessment Notes Treatment Notes Treatment Clinical Notes Mar, Primary osteoarthrit is of both first carpometacarpal joints (ICD-10 - M18.0) [facility] Other 11-01-2023 Evaluation note* Encounter Date Diagnosis Assessment Notes Treatment Notes Treatment Clinical Notes Feb, Primary hypertension (ICD-10 - I10) [facility] Other 10-13-2023 Evaluation note* Encounter Date Diagnosis [...] Jan, Medication monitoring encounter (ICD-10 - Z51.81) [facility] Other 09-13-2023 Evaluation note* Encounter Date Diagnosis Assessment Notes Treatment Notes Treatment Clinical Notes Dec, Primary osteoarthrit is of first carpometacarpal joint of left hand (ICD-10 - M18.12) [facility] Other 09-07-2023 Evaluation note* Encounter Date Diagnosis [...] he has any issues with the medicine. [facility] Other 06-22-2023 [facility]* Encounter Date Diagnosis Assessment Notes Treatment Notes Treatment Clinical Notes Sep, Primary osteoarthrit is of both first carpometacarpal joints (ICD-10 - M18.0) [facility] Other 04-19-2023 Evaluation note* Encounter Date Diagnosis [...] colonoscopy to rule out luminal etiologies made [facility] Other 04-18-2023 NoteCONSULTATION CONSULTATION DATE: 07/23/2022 TO: [...] our patients to inform us about any eqyu-pjt-syvopcv medications or herbal remedies/nutritional supplements/alternative remedies. 2. [...] treatment options with their primary care provider.[facility] CenterRevbatip20-03-2757 Evaluation note * Encounter Date Diagnosis Assessment Notes Treatment Notes Treatment Clinical Notes Jul, Generalized abdominal pain (ICD-10 - R10.84) [facility] Other 04-10-2023 Evaluation note* Encounter Date Diagnosis [...] Jul, Medication monitoring encounter (ICD-10 - Z51.81) [facility] Other 04-10-2023 Evaluation note* Encounter Date Diagnosis Assessment Notes Treatment Notes Treatment Clinical Notes Jul, Slow transit constipation (ICD-10 - K59.01) [facility] Other 03-28-2023 NoteCONSULTATION CONSULTATION DATE: 07/02/2022 TO: [...] as well as his lumbar spine films.[facility] [id number] Note CONSULTATION CONSULTATION DATE: 06/13/2022 HISTORY OF [...] relief. He has been seen both at [place] and [facility] in the past, and received [...] under the care of Dr. Joshua in [place]. He is unwilling to try Lyrica [...] Patient is in agreement to this plan.[facility] [id number] NoteCONSULTATION CONSULTATION DATE: 03/14/2022 HISTORY OF PRESENT [...] in three months' time, unless otherwise indicated.[facility] CenterPblmyott14-23-2248 NoteCONSULTATION CONSULTATION DATE: 02/07/2022 HISTORY OF PRESENT [...] followed up in the office post procedure.[facility] [id number] Evaluation note* Encounter Date Diagnosis Assessment Notes [...] Dec, Prostate cancer screening (ICD-10 - Z12.5) [facility] Other 09-08-2022 NoteCONSULTATION CONSULTATION DATE: 12/13/2021 HISTORY [...] of care and all questions were answered.[facility] [id number] Note CONSULTATION PROCEDURE DATE: 10/31/2021 PREOPERATIVE DIAGNOSIS: [...] will be followed up in the office.[facility] [id number] Note CONSULTATION CONSULTATION DATE: 10/03/2021 This is [...] and will be seen in the clinic. [facility] Signed and Approved by: BRIT SCHUSTER . 10/11/2021 16:28:00[facility]04-04-2022 Evaluation note* Encounter Date Diagnosis Assessment [...] in this. Patient notes prior issues with [facility] billing department and states he is uncomfortable [...] note writ ten by Km Cervantes MA, Skilled Nursing Facilities Professional. Edited and approved by Dr. Charles Solares MD. [facility] Other 03-18-2022 Evaluation note* Encounter Date Diagnosis [...] and he is to continue with it. [facility] Other 03-02-2022 Evaluation note* Encounter Date Diagnosis [...] note writ ten by Km Cervantes CMA, Skilled Nursing Facilities Professional. Edited and approved by Dr. Charles Solares MD. [facility] Other 02-15-2022 Evaluation note* Encounter Date Diagnosis Assessment Notes Treatment Notes Treatment Clinical Notes May, Cigarette nicotine dependence without complication (ICD-10 - F17.210) [facility] Other 02-14-2022 Evaluation note* Encounter Date Diagnosis Assessment Notes Treatment Notes Treatment Clinical Notes May, Other spondylosis with radiculopathy, lumbar region (ICD-10 - M47.26) [facility] Other 02-01-2022 Evaluation note* Encounter Date Diagnosis [...] was refilled today. Saliva sample performed through [email or web address] lab today, will await confirmatory results. [employer] contract updated at this time. May, Other chronic pain (ICD-10 - G89.29) May, Other Above note writ ten by Sonya Dawson LPN, Skilled Nursing Facilities Professional. Edited and approved by Dr. Charles Solares MD. [facility] Other 01-06-2022 Evaluation note* Encounter Date Diagnosis [...] note writ ten by Km Cervantes CMA, Skilled Nursing Facilities Professional. Edited and approved by Dr. Charles Solares MD. [facility] Other 12-02-2021 Evaluation note* Encounter Date Diagnosis [...] Above note written by Sonya Dawson LPN, Skilled Nursing Facilities Professional. Edited and approved by Dr. Charles Solares MD. [facility] Other 11-08-2021 Evaluation note* Encounter Date Diagnosis [...] Patient voiced understanding agrees with this plan. [facility] Other 11-01-2021 Evaluation note* Encounter Date Diagnosis [...] note writ ten by Donita Henson CMA, Skilled Nursing Facilities Professional. Edited and approved by Dr. Charles Solares MD. [facility] Other 10-28-2021 Evaluation note* Encounter Date Diagnosis [...] message to Dr. Solares passing this along. [facility] Other 10-04-2021 Evaluation note* Encounter Date Diagnosis [...] educated regarding the risks and benefits of air deodorizer servicer opioid use. He understands the associated risks with this medication and agrees that it provides reasonable benefit in regards to his pain control and level of function. Oxycodone Acetaminophen was refilled today. Jan, Other chronic pain (ICD-10 - G89.29) [facility] Other Evaluation noteNo InformationNort [facility] Other Evaluation noteNo assessment information available [facility] Work Phone: Evaluation note* Diagnosis Onset Date Resolution Status Osteoarthritis of carpometac arpal joint of left thumb acute Primary osteoarthritis, left hand acute BPH (benign prostatic hyperplasia) chronic Hemorrhoid chronic Other spondylosis with radiculopathy, lumbar region chronic Blood present in stool nonea [facility] Work Phone: Evaluation note* Diagnosis Onset Date Resolution Status BPH (benign prostatic hyperplasia) chronic Hemorrhoid chronic Other spondylosis with radiculopathy, lumbar region chronic Blood present in stool nonea ctive Other spondylosis with radiculopathy, lumbar region chronic Preoperative clearance nonea [facility] Work Phone: Evaluation note* Diagnosis Onset Date Resolution Status BPH (benign prostatic hyperplasia) chronic 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 Erectile dysfunction due to diseases classified elsewhere chronic HTN (hypertension) chronic Other spondylosis with radiculopathy, lumbar region chronic Well adult noneactive [facility] Work Phone: History and physical note Author Nash Cardenas [facility] September 26, 2022 9:39am Note Date/Time September 26, 2022 9:39 am [facility] [address] [place] [address] Gastroenterology H&P Signed Patient: Neal Parker MR#: [id number] : 1980 Acct:[id number] Age/Sex: 41 / M Adm Date: 3 Loc: Room: Type: [facility] Attending Dr: Nash Cardenas MD Copies [...] <Electronically signed by Nash Cardenas MD> 09/26/22938 [facility] Work Phone: Hisdufn general Narrative - Reported* Type Description Date Medical History Hx spinal fusion Medical History Lumbar radiculopathy Medical History Trigger point Surgical History L5 S1 fusion 2014 Surgical History Left lower leg surgery (multipl e fractures) Surgical History foreign body excision right mid dle finger Hospitalization History pneumonia as [facility] Other [facility] general Narrative - Reported* Type Description Date Medical History Hx spinal fusion Medical History Lumbar radiculopathy Medical History Trigger point Surgical History L5 S1 fusion 2014 Surgical History Left lower leg surgery (multipl e fractures) Surgical History foreign body excision right mid dle finger Surgical History lumbar facet nerve b lock injection - Dr. Saldivar in [place] 11/2022 Hospitalization History pneumonia as [facility] Other Hispeel general Narrative - Reported* Type Description Date Medical History Hx spinal fusion Medical History Lumbar radiculopathy Medical History Trigger point Surgical History L5 S1 fusion 2014 Surgical History Left lower leg surgery (multipl e fractures) Surgical History foreign body excision right mid dle finger Surgical History lumbar facet nerve b lock injection - Dr. Saldivar in [place] 11/2022 Surgical History R side nerve ablation 01/2023 Hospitalization History pneumonia as [facility] Other Hospital Discharge instructions Additional Instructions DISCHARGE [...] years. -Follow up with PCP. -Office number [phone].[facility] Work Phone: Hospital Discharge instructionsAmbulatory Orders* Disability Placard Time Frame: 01/16/24, Location: Determined By Patient [facility] Work Phone: Refkla for visit NarrativePatient here at the request of Dr. Vuong for evaluation & treatment of abdominal pain, change in bowel habits, weight loss, rectal bleeding.[facility] Other Resrnq for visit NarrativeProcedure appt and DNR-A hereO [facility] Other Summary Purpose Family History No Family [...] Date/ Time Advance Directives No December 4:24pm Advance Directive Response Recorded Date/ Time Advance Directives No December 3:24pm Reason for Referral Reason Dr[facility], steroid injections not providing long lasting benefit Diagnosis 1 Primary osteoarthrit is of both first carpometacarpal joints (M18.0) Referral Organization [facility] Family Nisha Santos Referring Provider First Name Maribeth Referring Provider Last Name Carolann Referring Provider Specialty Family Prac patito Referred Organization [facility] Referred Address [address] [place],[address] Referred Provider Specialty ORTHOPEDIC S URGEON Referral Priority Routine Reason * Waiting for appt CT and KUB normal, generalized pain of unclear etiology Diagnosis 1 Generalized abdomina l pain (R10.84) Referral Organization [facility] Nisha Santos Referring Provider First Name Maribeth Referring Provider Last Name Carolann Referring Provider Specialty Family Prac patito Referred Organization [facility] Gastroenterolo gy Referred Provider Dwayne Salas Referred Address [address] ,[place], [place],[address] Referred Provider Specialty Gastroentero logy Referral Priority [...] continuous use of opioids (F11.90) Referral Organization [facility] Nisha Santos Referring Provider First Name Maribeth Referring Provider Last Name Carolann Referring Provider Specialty Family Prac patito Referred Organization [facility] Referred Address [address], [place],[address] Referred Provider Specialty Pain Medicin e Referral Priority Routine General Notes Rebeca Vivar 11:08:53 AM >referral received and faxed Clinical Notes [phone]- [phone]- Chief Complaint and Reason for Visit Chief [...] spondylosis with radiculopathy, lumbar region Well adult Chief Complaint Admit Date AWV January 16, 2024 8 :04am OP SP LT HAND PAIN February 24, 2024 8:37am Reason for Visit Admit Date BPH (benign prostatic hyperplasia) Octob er 2023 8:04am Cigarette nicotine dependence in remissi on January 16, 2024 8:04am Erectile dysfunction due to diseases cla ssified elsewhere January 16, 2024 8:04am HTN (hypertension) January 16, 2024 8 :04am Other spondylosis with radiculopathy, wolf mbar region January 16, 2024 8:04am Well adult January 16, 2024 8 :04am Osteoarthritis of carpometacarpal joint of left thumb February 24, 2024 8:37am Primary osteoarthritis, left hand Novemb er 2023 8:37am Additional Source Comments (unrecognized sect ion and content) No Status Records FoundNo Status Records FoundNo Status Records FoundNo Status Records FoundNo Status Records Found INFORMATION SOURCE (unrecogn ized section and content) DATE CREATED AUTHOR 05/25/2018 [facility] DATE CREATED AUTHOR AUTHOR'S ORGANIZ ATION 06/11/2018 [facility] DATE CREATED AUTHOR AUTHOR'S ORGANIZ ATION 09/15/2022 [facility] DATE CREATED AUTHOR AUTHOR'S ORGANIZ ATION 10/31/2023 [facility] DATE CREATED AUTHOR AUTHOR'S ORGANIZ ATION 03/10/2024 [facility] REASON FOR VISIT (unrecogniz ed section and content) 1 MOback pain getting worse, pain management not working4 WK RECHECKDISCUSS DISABILITY OPTIONSLab results1 MO1 MONTH RECHECKCHANTIX1 month Follow upscript requestpaperwork1 MONTH FOLLOW UPCHANTIX refill/discuss back concerns1 MONTHNo InformationNo InformationPROCEDURE NOTES1 year Follow up/ AWVAbdominal Pain/ incontinencenew medication.ReferralPain ManagementB/L thumb steroid inj./ sign DNR-AORDERS PER DR Han bpelevated BP at PM in [place], no sxinjection L thumb1 year Follow upLosartan/HCTZsteroid injection Care Teams (unrecognized sec tion and content) Team Status: Active Member Role Status Dates Maribeth Vuong , Primary Care Provider Active Team Status: Inactive Member Role Status Dates Maribeth Vuong DO Primary Care Provi aisha, Attending Provider Active Start: July 21, 2023 End: July 21, 2023 Team Status: Inactive Member Role Status Dates Maribeth Vuong DO Primary Care Provi aisha, Attending Provider Active Start: September 15, 2023 End: September 15, 2023 Team Status: Active Member Role Status Dates Maribeth N Carolann , DO Primary Care Provider Active Start: May 29, 2023 Patricia Thakur DEANNA Attending Provider Active Start: May 29, 2023 Team Status: Inactive Member Role Status Dates Maribeth Vuong , DO Primary Care Provider Active Start: June 03, 2023 End: June 03, 2023 Nisha Villauneva MD Attending Provider Active Start: June 03, 2023 End: June 03, 2023 Team Status: Inactive Member Role Status Dates Maribeth Vuong , DO Primary Care Provider, Attending Provider Active Team Status: Inactive Member Role Status Rahul Vuong , DO Primary Care Provider Active Nash Cardenas MD Attending Provider Active Team Status: Inactive Member Role Status Rahul Vuong , DO Primary Care Provi aisha, Attending Provider Active Start: January 16, 2024 End: January 16, 2024 Team Status: Inactive Member Role Status Rahul Vuong , DO Primary Care Provider Active Start: February 24, 2024 End: February 24, 2024 Nisha Villanueva MD Attending Provider Active Start: February 24, 2024 End: February 24, 2024 Goals (unrecognized section and content) Goals [...] BE BASED ON THE PRIMARY CLINICAL RECORDS. [employer] provides no warranty or guarantee of the accuracy or completeness of information in this document.
== END 2024-03-12 08:42 | disposition home or self-care (01) ==
LOC: EC 08:41
PROVIDERS: Visit Provider Orthopaedic Surgery Orthopaedic Surgery of the Spine
DX: M54.50 Low back pain, unspecified (principal); M43.26 Fusion of spine, lumbar region; M51.369 Other intervertebral disc degeneration, lumbar region without mention of lumbar back pain or lower extremity pain
CPT/HCPCS: 72110

== ENCOUNTER 2024-04-09 10:36 | Outpatient (OUT) | payer OTHER, SELFPAY ==
--- NOTE | 2024-04-09 | XR_ITS ---
The [address] [address] Patient Name: NEAL PARKER MRN: [id number] date: 1980 Sex: M Assigned Patient Location: Current Patient Location: Accession/Order Number: [id number] Exam Date: 04/09/2024 11:20 Report Date: 04/12/2024 07:46 At the request of: ANTONIO RAPHAEL Procedure: XR lumbar spine min 4V EXAMINATION: XR lumbar spine min 4V HISTORY: LUMBAR SPINE PAIN COMPARISON: 03/12/2024 FINDINGS: BONES: Neutral projection demonstrates normal alignment with no acute fracture or spondylolisthesis. Mild stable spondylosis and facet osteoarthropathy. Stable lumbosacral fusion with no mechanical failure DISC SPACES: Interbody spacer L5 S1 PARASPINOUS: Negative. No paraspinous abnormality is seen. OTHER: No dynamic instability. XR/XR lumbar spine min 4V IMPRESSION: Stable lumbosacral fusion. Electronically authenticated by: RENE LAUREN Date: 04/12/2024 07:46
--- OUTSIDE RECORDS SUMMARY | 2024-04-09 10:56 | XMS_ITS | CCD ---
Author Organization [facility] Care Team Providers Care Fisheries Inspector Name Role Phone Lashay Li Admitting Unavailable [...] JOEL ., DR JESSICA Huerta Admitting Unavailable JOLE ., DR JESSICA Huerta Attending [...] Attending Jessy vailable LAKSHMIPATHY ., NARENDRANATH Admitting Ejssy vailable [facility], [facility] Primary Care Unavailable LAKSHMIPATHY ., NARENDRANATH Consulting [...] Consulting Unavailable MD Nash Cardenas Attending Provider [phone] oYditNash najera Unavailable DO Maribeth Vuong Primary Care Provider MD Nisha Villanueva Attending Provider [phone] [facility] Keri PLEITEZ, Diaz Mercer Attending Slim Valdovinos MD, Diaz Mercer Admitting Unavailmary Rodgers MD, Homar Mayesr Consulting Unavail able Maribeth Vuong DO Primary Care Qamar Obrien Consulting Unavailable St Keri PLEITEZ, Diaz Mercer Attending UnavailMaribeth Hickman DO Primary Care Harmeet Valdovinos MD, Diaz Mercer Attending UnavailMaribeth Hickman DO [facility] Nisha Santamaria Admitting Unavailable Maribeth Vuong Primary Care Unavailable Nisha Villanueva Attending Unavailable Maribeth Vuong Primary Care Unavailable Nisha Villanueva Attending Unavailable Nisha Villanueva Admitting Unavailable Maribeth Vuong Primary Care Unavailable Nisha Villanueva Attending Unavailable Nisha Villanueva Admitting Unavailable Allergies Allergy Classification Reported Allergen(s) Allergy Type Date of Onset Reaction(s) Facility (20 sources) gabapentin; Translations: [gabapentin] Drug Allergy 3 dizziness, sleepy, Drowsy, Drowsy, dizziness, sleepy [facility] (1 source) gabapentin Drug Allergy [facility] Repository (14 sources) zonisamide; Translations: [zonisamide] Drug Allergy 3 diarrhea [facility] (1 source) gabapentin Drug Allergy 4 [facility] (1 source) zonisamide Drug Allergy 4 [facility]ository Medications Current Medications Medication Drug Class(es) [...] 2019 6:38am take 1 tablet by elizabeth every twenty-four [...] Active take 1 capsule by mo [facility] every twenty-four hours Cymbalta 60 [...] take 1 tablet by mouth once daily Losartan-[place] chlorothiazide 50-12.5 mg tablet Active 1 TAB PO Daily 90 January 16, 2024 7:22am Start: 12-12-2022 take [...] 29, 2023 12:00am take 1 tablet by elizabeth th once daily as needed Zofran 8 MG 1 tablet as needed Orally Once a day Active polyethylene glycol 3350 [id number] mg / potassium chloride 2970 mg / sodium bicarbonate 6740 mg / sodium chloride 5860 mg / sodium sulfate 06990 mg powder for oral solution (6 sources) [...] 2016 11:00pm January 29, 2019 6:38am sennosides, skilled nursing 8.6 mg oral tablet (16 sources) Start: [...] PO Twice daily as needed for pain 28 July 21, 2023 September 15, 2023 9:25am [...] the wrist; Translations: [Primary osteoarthritis, right wrist] Onset: 03-18-2024 Chronic Other aftercare (3 sources) Encounter for therapeutic drug level monitoring Episodic Other aftercare (1 source) Other manager terminal (current) drug therapy; Translations: [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 THERAPY] Onset: 07-17-2022 Episodic Other connective tissue disease (2 sources) Hand pain; Translations: [Pain in left hand] 06-02-2023 Episodic Other connective tissue disease (1 source) Pain in unspecified limb; Translations: [Pain in unspecified limb] Onset: 03-18-2024 Episodic Other gastrointestinal disorders (20 sources) Slow [...] [CHRONIC PAIN SYNDROME] Onset: 12-19-2021 Chronic Other nervous system disorders (1 source) Other acute postprocedural pain; Translations: [Other acute postprocedural pain] Onset: 03-18-2024 Episodic Other non-traumatic joint disorders (20 sources) Arthralgia [...] Test Name Value Interpretation Reference Range Facility Drug Screen,Urineon 03-18-20 Amphetamine Screen,Urine Negative Normal Negative [facility] Comment on above: Performed By: #### U RDS #### [address] Barbiturate Screen,Urine Negative Normal Negative [facility] Comment on above: Performed By: #### U RDS #### [place] [address] [place] Benzodiazepines Screen,Urine Negative Normal Negative [facility] Comment on above: Performed By: #### U RDS #### [place] [address] [place] Cannabinoid Screen,Urine Positive High Negative [facility] Comment on above: Result Comment: Thes e are unconfirmed results and should not be used for legal purposes. Drug Cut-Off Concentration: AMPH 1000 ng/mL JANELL 200 ng/mL MAGO 200 ng/mL COCM 300 ng/mL OP 300 ng/mL PCP 25 ng/mL THC 20 ng/mL PERFORMED BY: [place] [address] PATHOLOGIST LAMP SHADES SUPERVISOR VIOLETTA HELM M.D. Performed By: #### U RDS #### [place] [address] [place] Cocaine Screen,Urine Negative Normal Negative [facility] Comment on above: Performed By: #### U RDS #### [place] [address] [place] Opiate Screen,Urine Negative Normal Negative [facility] Comment on above: Performed By: #### U RDS #### [facility] [address] Phencyclidine Screen,Urine Negative Normal Negative [facility] Comment on above: Performed By: #### U RDS #### [facility] [address] [place] [id number] [place] XR finger LT thumbon 024 XR finger LT thumb [facility] Main [place] [address] [place] [address] XRay Report Signed Patient: Neal Parker MR#: [id number] 206 : 1980 Acct:[id number] Age/Sex: 43 / M ADM Date: 03/18/24 Loc: [place] Room: Type: [facility] Attending Dr: Nisha Villanueva MD Copies to: Nisha Villanueva MD Ordering Provider: Nisha Villanueva MD Date of Service: 03/18/24 XR/XR finger LT thumb: SX Intraoperative study. Reason for exam: Left thumb fusion Findings: 19 images were obtained intraoperatively. Hardware was placed Cumulative Air Kerma in mGy: 0.413 mGy XR/XR finger LT thumb Impression: Intraoperative study. Impression dictated by: Sonny Greer Jr., D.OIbrahima03/18/2024 3:41 PM Dictation Location: [place] [address] Transcribed By: [facility] 03/18/24 1541 Dictated By: Sonny Greer Jr, DO 03/18/24 1540 Signed By: 03/18/24 1541 Normal [facility] CMP with reflex to A1Con Albumin [Mass/Vol] 4.3 g/dL Normal 3.5-5.7 [facility] Comment on above: Performed By: #### C BC, CMP wRFX A1C #### [facility] [address] [place] [id number] [facility] Albumin/Globulin [Mass ratio] 1.5 {ratio} Normal [facility] Comment on above: Performed By: #### C BC, CMP wRFX A1C #### [address] ALP [Catalytic activity/Vol] 40 U/L Normal 34-104 [facility] Comment on above: Result Comment: PERF ORMED BY: [place] [address] PATHOLOGIST LAMP SHADES SUPERVISOR VIOLETTA HELM M.D. Performed By: #### C BC, CMP wRFX A1C #### [address] ALT [Catalytic activity/Vol] 24 U/L Normal 7-52 [facility] Comment on above: Performed By: #### C BC, CMP wRFX A1C #### [address] Anion gap [Moles/Vol] 9.9 mmol/L Normal 6.0-15.0 [facility] Comment on above: Performed By: #### C BC, CMP wRFX A1C #### [address] AST [Catalytic activity/Vol] 19 U/L Normal 13-39 [facility] Comment on above: Performed By: #### C BC, CMP wRFX A1C #### [address] Bilirubin [Mass/Vol] 0.4 mg/dL Normal 0.3-1.0 [facility] Comment on above: Performed By: #### C BC, CMP wRFX A1C #### [address] Calcium [Mass/Vol] 9.9 mg/dL Normal 8.6-10.3 [facility] Comment on above: Performed By: #### C BC, CMP wRFX A1C #### [address] Chloride [Moles/Vol] 103 mmol/L Normal 98-107 [facility] Comment on above: Performed By: #### C BC, CMP wRFX A1C #### [place] [address] [place] CO2 [Moles/Vol] 32.5 mmol/L High 21.0-31.0 [facility] Comment on above: Performed By: #### C BC, CMP wRFX A1C #### [facility] [address] Creatinine [Mass/Vol] 0.81 mg/dL Normal 0.70-1.30 [facility] Comment on above: Performed By: #### C BC, CMP wRFX A1C #### [place] [address] [place] GFR/1.73 sq M.predicted MDRD (S/P/Bld) [Vol rate/Area] mL/min/{1.73_m2} Normal [facility] Comment on above: Performed By: #### C BC, CMP wRFX A1C #### [address] Globulin (S) [Mass/Vol] 2.9 g/dL Normal T [facility] Comment on above: Performed By: #### C BC, CMP wRFX A1C #### [place] [address] [place] Glucose [Mass/Vol] 90 mg/dL Normal 70-100 [facility] Comment on above: Performed By: #### C BC, CMP wRFX A1C #### [place] [address] [place] Potassium [Moles/Vol] 4.4 mmol/L Normal 3.5-5.1 [facility] Comment on above: Performed By: #### C BC, CMP wRFX A1C #### [place] [address] [place] Protein [Mass/Vol] 7.2 g/dL Normal 6.4-8.9 [facility] Comment on above: Performed By: #### C BC, CMP wRFX A1C #### [place] [address] [place] Sodium [Moles/Vol] 141 mmol/L Normal 136-145 [facility] Comment on above: Performed By: #### C BC, CMP wRFX A1C #### [address] Urea nitrogen [Mass/Vol] 9 mg/dL Normal 7-25 [facility] Comment on above: Performed By: #### C BC, CMP wRFX A1C #### [address] Complete Blood Count Auto Di ffon 03-08-2024 Basophils (Bld) [#/Vol] 0.0 10*3/uL Normal 0.0-0.2 [facility] Comment on above: Result Comment: PERF ORMED BY: [place] [address] PATHOLOGIST LAMP SHADES SUPERVISOR VIOLETTA HELM M.D. Performed By: #### C BC, CMP wRFX A1C #### [address] Basophils/100 WBC (Bld) 0.5 % Normal . T he [facility] Comment on above: Performed By: #### C BC, CMP wRFX A1C #### [place] [address] [place] Eosinophils (Bld) [#/Vol] 0.3 10*3/uL Normal 0.0-0.45 [facility] Comment on above: Performed By: #### C BC, CMP wRFX A1C #### [address] Eosinophils/100 WBC (Bld) 4.0 % Normal . [facility] Comment on above: Performed By: #### C BC, CMP wRFX A1C #### [address] Erythrocyte distribution width (RBC) [Ratio] 14.4 % Normal 12.0-14.8 [facility] Comment on above: Performed By: #### C BC, CMP wRFX A1C #### [address] Hematocrit (Bld) [Volume fraction] 44.4 % Normal 38.8-50.0 [facility] Comment on above: Performed By: #### C BC, CMP wRFX A1C #### [address] Hemoglobin (Bld) [Mass/Vol] 14.8 g/dL Normal 13.0-17.0 [facility] Comment on above: Performed By: #### C BC, CMP wRFX A1C #### [address] Lymphocytes (Bld) [#/Vol] 2.4 10*3/uL Normal 1.00-4.8 [facility] Comment on above: Performed By: #### C BC, CMP wRFX A1C #### [address] Lymphocytes/100 WBC (Bld) 35.2 % Normal . [facility] Comment on above: Performed By: #### C BC, CMP wRFX A1C #### [address] MCH (RBC) [Entitic mass] 30.5 pg Normal 27.5-35.2 [facility] Comment on above: Performed By: #### C BC, CMP wRFX A1C #### [address] MCV (RBC) [Entitic vol] 91.5 fL Normal 83.5-101 T he [facility] Comment on above: Performed By: #### C BC, CMP wRFX A1C #### [address] Mean Corpuscular HGB Conc 33.4 g/dL Normal 32.5-35.6 [facility] Comment on above: Performed By: #### C BC, CMP wRFX A1C #### [address] Monocytes (Bld) [#/Vol] 0.4 10*3/uL Normal 0.0-0.8 [facility] Comment on above: Performed By: #### C BC, CMP wRFX A1C #### [place] [address] [place] [address] [place] Monocytes/100 WBC (Bld) 5.9 % Normal . T ashlie [facility] Comment on above: Performed By: #### C BC, CMP wRFX A1C #### [facility] [address] [place] [address] [place] Neutrophils (Bld) [#/Vol] 3.8 10*3/uL Normal 1.8-7.7 [facility] Comment on above: Performed By: #### C BC, CMP wRFX A1C #### [facility] [address] [place] [address] [place] Neutrophils/100 WBC (Bld) 54.4 % Normal . [facility] Comment on above: Performed By: #### C BC, CMP wRFX A1C #### [facility] [address] [place] [address] [place] NRBC% 0.1 /100{WBC} Normal 0-0.5 [facility] Comment on above: Performed By: #### C BC, CMP wRFX A1C #### [facility] [address] [place] [address] [place] Platelet mean volume (Bld) [Entitic vol] 11.2 fL High 6.6-10.[address] [facility] Comment on above: Performed By: #### C BC, CMP wRFX A1C #### [facility] [address] [place] [id number] [place] Platelets (Bld) [#/Vol] 204 10*3/uL Normal 150-450 [facility] Comment on above: Performed By: #### C BC, CMP wRFX A1C #### [facility] [address] [place] [address] [place] RBC (Bld) [#/Vol] 4.86 10*6/uL Normal 3.90-5.60 [facility] Comment on above: Performed By: #### C BC, CMP wRFX A1C #### [facility] [address] [place] [id number] [place] WBC (Bld) [#/Vol] 7.0 10*3/uL Normal 4.1-10.5 [facility] Comment on above: Performed By: #### C BC, CMP wRFX A1C #### [facility] [address] ECG 12 lead ECGon 03-08-2024 ECG 12 lead ECG [facility] [address] [place] [address] [place] [address] Electrocardiograph Report Signed Patient: Neal Parker MR#: [id number] 206 : 1980 Acct:[id number] Age/Sex: 43 / M ADM Date: 03/08/24 Loc: Room: Type: [facility] Attending Dr: Nisha Villanueva MD Ordering Provider: [...] previous ECGs available Confirmed by Shakeel Guerra ([id number]) on 03/08/2024 5:31:45 PM Referred By: Electronically Signed By: Shakeel Guerra Transcribed By: MUS Signed By Shakeel Guerra MD 03/08/24 1731 Normal [facility] Cholesterol in LDL Calc [Mas s/Vol]on 01-16-2024 Cholesterol in LDL [Mass/Vol] Cholesterol in LDL [Mass/volume] in Serum or Plasma by calculation [facility] Comment on above: <100 mg/dl [id number] 0-129 mg/dl NEAR OR ABOVE [id number] mg/dl BORDERLINE [id number] mg/dl HIGH>190 mg/dl VERY HIGH Cholesterol in VLDL Calc [Ma ss/Vol]on 01-16-2024 Cholesterol in VLDL [Mass/Vol] Cholesterol in VLDL [Mass/volume] in Serum or Plasma by calculation [facility] Laboratory - Chemistry and C hemistry - challengeon 01-16-2024 Cholesterol [Mass/Vol] 229 mg/dL High <=200 [facility] Cholesterol in HDL [Mass/Vol] 49 mg/dL 40-60 [facility] Comment on above: > or =60 mg/dl - LOW CARDIOVASCULAR RISK<40 mg/dl - HIGH CARDIOVASCULAR RISK Triglyceride [Mass/Vol] 105 mg/dL <=150 F [place] No Panel Informationon 01-15 Prostate Specific Antigen Screen 0.88 ng/mL <=4.00 [facility] Serum or plasma total choles terol/high density lipoprotein (HDL) cholesterol mass maci 01-16-2024 Cholesterol.total/Patti sterol in HDL [Mass ratio] Serum or plasma total cholesterol/high density lipoprotein (HDL) cholesterol mass rat [facility] Comment on above: 3.3 - 4.4 LOW RISK4. 4 - 7.1 AVERAGE RISK7.1 - 11.0 MODERATE RISK>11.0 HIGH RISK .eGFRon 10-02-2023 GFR/1.73 sq M.predicted MDRD (S/P/Bld) [Vol rate/Area] mL/min/{1.73_m2} Normal >=60 [facility] Comment on above: Result Comment: [facility] Laboratories have implemented the eGFR calculation [...] Age = years Performed By: #### C [id number] #### [place] [address] Basic Metabolic Profileon Anion gap [Moles/Vol] 5 mmol/L Normal 4-12 [facility] Comment on above: Performed By: #### C [id number] #### [address] [address] Calcium [Mass/Vol] 8.2 mg/dL Low 8.5-10.3 [facility] Comment on above: Performed By: #### C [id number] #### [address] [address] Chloride [Moles/Vol] 106 mmol/L Normal 98-110 [facility] Comment on above: Performed By: #### C [id number] #### [address] [address] CO2 [Moles/Vol] 27 mmol/L Normal 22-32 [facility] Comment on above: Performed By: #### C [id number] #### [address] [address] Creatinine [Mass/Vol] 0.75 mg/dL Normal 0.61-1.24 [facility] Comment on above: Performed By: #### C [id number] #### [address] [address] Glucose [Mass/Vol] 88 mg/dL Normal 70-99 [facility] Comment on above: Performed By: #### C [id number] #### [address] [address] Potassium [Moles/Vol] 3.9 mmol/L Normal 3.4-4.8 [facility] Comment on above: Performed By: #### C [id number] #### [address] [address] Sodium [Moles/Vol] 138 mmol/L Normal 133-142 [facility] Comment on above: Performed By: #### C [id number] #### [address] [place] [address] Urea nitrogen [Mass/Vol] 13 mg/dL Normal 8-26 [facility] Comment on above: Performed By: #### C [id number] #### [address] [address] Urea nitrogen/Creatinine [Mass ratio] 17.3 mg/mg Normal 10.0-20.0 [facility] Comment on above: Performed By: #### C [id number] #### [address] [address] CBC w/ Diffon 10-02-2023 Erythrocyte distribution width (RBC) [Ratio] 14.4 % Normal 11.6-14.8 [facility] Comment on above: Performed By: #### E GFR #### [address] [address] Hematocrit (Bld) [Volume fraction] 37.0 % Low 41.0-53.0 [facility] Comment on above: Performed By: #### E GFR #### [address] [address] Hemoglobin (Bld) [Mass/Vol] 12.1 g/dL Low 13.5-17.5 [facility] Comment on above: Performed By: #### E GFR #### [address] [address] MCH (RBC) [Entitic mass] 30.2 pg Normal 27.0-35.0 [facility] Comment on above: Performed By: #### E GFR #### [address] [address] MCHC 32.6 % Normal 31.0-37.0 [facility] Comment on above: Performed By: #### E GFR #### [address] [address] MCV (RBC) [Entitic vol] 92.6 fL Normal 80.0-100.0 [facility] Comment on above: Performed By: #### E GFR #### [address] [place] [address] Platelet 174 x10*3/mcL Normal 150-450 [facility] Comment on above: Performed By: #### E GFR #### [address] [address] Platelet mean volume (Bld) [Entitic vol] 10.7 fL High 6.7-10.6 [facility] Comment on above: Performed By: #### E GFR #### [address] [address] RBC 4.00 x10*6/mcL Low 4.30-5.80 [facility] Comment on above: Performed By: #### E GFR #### [place] [id number] WBC 11.9 x10*3/mcL High 4.5-11.0 [facility] Comment on above: Performed By: #### E GFR #### [place] [address] Diff Autoon 10-02-2023 Baso Absolute 0.0 x10*3/mcL Normal 0.0-0.2 [facility] Comment on above: Performed By: #### C [id number] #### [address] [address] Basophils/100 WBC (Bld) 0.2 % Normal 0.0-1.2 [facility] Comment on above: Performed By: #### C [id number] #### [address] [address] Eos Absolute 0.2 x10*3/mcL Normal 0.0-0.4 [facility] Comment on above: Performed By: #### C [id number] #### [address] [address] Eosinophils/100 WBC (Bld) 1.5 % Normal 0.0-6.1 [facility] Comment on above: Performed By: #### C [id number] #### [address] [place] [address] Lymph Absolute 5.1 x10*3/mcL High 1.0-4.8 [facility] Comment on above: Performed By: #### C [id number] #### [address] [address] Lymphocytes/100 WBC (Bld) 42.9 % High 27.2-40.8 [facility] Comment on above: Performed By: #### C [id number] #### [address] [address] [place] Absolute 0.9 x10*3/mcL Normal 0.3-1.1 [facility] Comment on above: Performed By: #### C [id number] #### [address] [address] Monocytes/100 WBC (Bld) 7.1 % Normal 4.7-13.9 [facility] Comment on above: Performed By: #### C [id number] #### [address] [address] Neutro Absolute 5.7 x10*3/mcL Normal 1.8-7.7 [facility] Comment on above: Performed By: #### C [id number] #### [address] [address] Neutro Auto 48.3 % Normal 47.2-70.8 [facility] Comment on above: Performed By: #### C [id number] #### [address] [address] Inpatient Clinical Summaryon 10-02-2023 Inpatient Clinical Summary [address] [address] Clinical Summary Person Information Name: Neal Parker Age: 42 Years : 1980 Sex: Male PCP: Maribeth Vuong DO Marital Status: Phone: PCP: Race: White Ethnicity: Not or Language: Armenian Visit Id: Visit Reason: Speciality: Acuity: Enc Type: Inpatient Med Service: Surgery Arrival: 09/30/2023 08:56:12 Discharge: Dispo Type: Address: [address] [place] [phone] Diagnosis: Discharged To: Home Treatments: Devices/Equipment: Professional [...] range between ( 27.2 and 40.8 ) [place] Auto: 7.1 % -- Normal range between [...] range between ( 41.0 and 53.0 ) [place] Absolute: 0.9 x10 MCH: 30.2 pg -- [...] to r (more content not included)... Normal [facility] .eGFRon 10-01-2023 GFR/1.73 sq M.predicted MDRD (S/P/Bld) [Vol rate/Area] mL/min/{1.73_m2} Normal >=60 [facility] Comment on above: Order Comment: Order added by Discern rule Result Comment: [facility] have implemented the eGFR calculation [...] years Performed By: #### E GFR #### [address] [address] Basic Metabolic Profileon Calcium [Mass/Vol] 8.4 mg/dL Low 8.5-10.3 [facility] Comment on above: Performed By: #### E GFR #### [address] [address] Anion gap [Moles/Vol] 6 mmol/L Normal 4-12 [facility] Comment on above: Performed By: #### E GFR #### [address] [address] Chloride [Moles/Vol] 107 mmol/L Normal 98-110 [facility] Comment on above: Performed By: #### E GFR #### [address] [address] CO2 [Moles/Vol] 26 mmol/L Normal 22-32 [facility] Comment on above: Performed By: #### E GFR #### [address] [address] Creatinine [Mass/Vol] 0.97 mg/dL Normal 0.61-1.24 [facility] Comment on above: Performed By: #### E GFR #### [address] [address] Glucose [Mass/Vol] 119 mg/dL High 70-99 [facility] Comment on above: Performed By: #### E GFR #### [address] [address] Potassium [Moles/Vol] 4.1 mmol/L Normal 3.4-4.8 [facility] Comment on above: Performed By: #### E GFR #### [address] [address] Sodium [Moles/Vol] 139 mmol/L Normal 133-142 [facility] Comment on above: Performed By: #### E GFR #### [address] [address] Urea nitrogen [Mass/Vol] 15 mg/dL Normal 8-26 [facility] Comment on above: Performed By: #### E GFR #### [address] [address] Urea nitrogen/Creatinine [Mass ratio] 15.5 mg/mg Normal 10.0-20.0 [facility] Comment on above: Performed By: #### E GFR #### [address] [address] CBC w/ Diffon 10-01-2023 Erythrocyte distribution width (RBC) [Ratio] 13.9 % Normal 11.6-14.8 [facility] Comment on above: Performed By: #### E GFR #### [address] [address] Hematocrit (Bld) [Volume fraction] 38.3 % Low 41.0-53.0 [facility] Comment on above: Performed By: #### E GFR #### [address] [address] Hemoglobin (Bld) [Mass/Vol] 12.5 g/dL Low 13.5-17.5 [facility] Comment on above: Performed By: #### E GFR #### [address] [address] MCH (RBC) [Entitic mass] 30.2 pg Normal 27.0-35.0 [facility] Comment on above: Performed By: #### E GFR #### [address] [address] MCHC 32.7 % Normal 31.0-37.0 [facility] Comment on above: Performed By: #### E GFR #### [address] [address] MCV (RBC) [Entitic vol] 92.3 fL Normal 80.0-100.0 [facility] Comment on above: Performed By: #### E GFR #### [address] [address] Platelet 175 x10*3/mcL Normal 150-450 [facility] Comment on above: Performed By: #### E GFR #### [address] [address] Platelet mean volume (Bld) [Entitic vol] 11.3 fL High 6.7-10.6 [facility] Comment on above: Performed By: #### E GFR #### [address] [address] RBC 4.15 x10*6/mcL Low 4.30-5.80 [facility] Comment on above: Performed By: #### E GFR #### [address] [address] WBC 15.0 x10*3/mcL High 4.5-11.0 [facility] Comment on above: Performed By: #### E GFR #### [address] [address] Diff Autoon 10-01-2023 Baso Absolute 0.0 x10*3/mcL Normal 0.0-0.2 [facility] Comment on above: Performed By: #### E GFR #### [address] [address] Basophils/100 WBC (Bld) 0.1 % Normal 0.0-1.2 [facility] Comment on above: Performed By: #### E GFR #### [address] [address] Eos Absolute 0.0 x10*3/mcL Normal 0.0-0.4 [facility] Comment on above: Performed By: #### E GFR #### [address] [address] Eosinophils/100 WBC (Bld) 0.0 % Normal 0.0-6.1 [facility] Comment on above: Performed By: #### E GFR #### [address] [address] Lymph Absolute 1.6 x10*3/mcL Normal 1.0-4.8 [facility] Comment on above: Performed By: #### E GFR #### [address] [address] Lymphocytes/100 WBC (Bld) 10.9 % Low 27.2-40.8 [facility] Comment on above: Performed By: #### E GFR #### [address] [address] [place] Absolute 0.9 x10*3/mcL Normal 0.3-1.1 [facility] Comment on above: Performed By: #### E GFR #### [address] [address] Monocytes/100 WBC (Bld) 6.2 % Normal 4.7-13.9 [facility] Comment on above: Performed By: #### E GFR #### [address] [address] Neutro Absolute 12.4 x10*3/mcL High 1.8-7.7 [facility] Comment on above: Performed By: #### E GFR #### [address] [address] Neutro Auto 82.8 % High 47.2-70.8 [facility] Comment on above: Performed By: #### E GFR #### [address] [address] Orthopedic Progress Noteon 0 10-01-2023 Orthopedic Progress [...] Graf MD, Jr 10/01/23 11:46 EDT Normal [facility] Operative Reporton 4 Operative Report Preoperative Diagnosis 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 Postoperative Diagnosis 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 Operation L5-S1 right HW removal, L5-S1 revision right decompression and revision fusion Surgeon(s) St Keri PLEITEZ, Diaz Mercer (Surgeon - Primary) [facility] Almita SERRANO, Qamar Mcelroy (Informatica Mdm Developer) Anesthesia General Trevor PLEITEZ, Zuleima Maier (Helpdesk Administrator) Kurt Nieves (Provider) Estimated Blood Loss 150 mL Urine Output 800.0 mL Findings loose screws Specimen(s) none Complications none Catheters, Drains, Tubes Device: Rodney Tray 16FR Latex Free [id number] Electronically signed by Qamar Recio PA-C 09/30/23 12:16 EDT Normal [facility] XR Spine Lumbosacral 1 View in [...] Electronically Signed in Other Vendor System) Normal [facility] XR Chest 2 Viewson XR Chest [...] Electronically Signed in Other Vendor System) Normal [facility] .eGFRon 09-10-2023 GFR/1.73 sq M.predicted MDRD (S/P/Bld) [Vol rate/Area] mL/min/{1.73_m2} Normal >=60 [facility] Comment on above: Result Comment: [facility] have implemented the eGFR calculation [...] years Performed By: #### E GFR #### [facility] [address] [place] [address] ABO/Rhon 09-10-2023 ABO/Rh SD 09/30/23 ABO/Rh: A POS [facility] Comment on above: Performed By: #### A BORH #### [facility] (DEFAULT) [address] [place] [address] [facility] (UNKNOWN) [address] [facility] [place] [address] ABSC Autoon 09-10-2023 ABSC Auto Negative Normal [facility] Comment on above: Performed By: #### A SA #### [facility] (UNKNOWN) [address] [facility] [place] [address] Basic Metabolic Profileon Anion gap [Moles/Vol] 8 mmol/L Normal 4-12 [facility] Comment on above: Performed By: #### C [id number] #### [facility] [address] [place] [address] Calcium [Mass/Vol] 10.3 mg/dL Normal 8.5-10.3 [facility] Comment on above: Performed By: #### C [id number] #### [facility] [address] [place] [address] Chloride [Moles/Vol] 101 mmol/L Normal 98-110 [facility] Comment on above: Performed By: #### C [id number] #### [facility] [address] [place] [address] CO2 [Moles/Vol] 31 mmol/L Normal 22-32 [facility] Comment on above: Performed By: #### C [id number] #### [facility] [address] [place] [address] Creatinine [Mass/Vol] 1.05 mg/dL Normal 0.61-1.24 [facility] Comment on above: Performed By: #### C [id number] #### [facility] [address] [place] [address] Glucose [Mass/Vol] 94 mg/dL Normal 70-99 [facility] Comment on above: Performed By: #### C [id number] #### [address] [address] Potassium [Moles/Vol] 4.0 mmol/L Normal 3.4-4.8 [facility] Comment on above: Performed By: #### C [id number] #### [address] [address] Sodium [Moles/Vol] 140 mmol/L Normal 133-142 [facility] Comment on above: Performed By: #### C [id number] #### [address] [address] Urea nitrogen [Mass/Vol] 13 mg/dL Normal 8-26 [facility] Comment on above: Performed By: #### C [id number] #### [address] [address] Urea nitrogen/Creatinine [Mass ratio] 12.4 mg/mg Normal 10.0-20.0 [facility] Comment on above: Performed By: #### C [id number] #### [address] [address] CBCon 09-10-2023 Erythrocyte distribution width (RBC) [Ratio] 14.1 % Normal 11.6-14.8 [facility] Comment on above: Performed By: #### C [id number] #### [address] [address] Hematocrit (Bld) [Volume fraction] 46.6 % Normal 41.0-53.0 [facility] Comment on above: Performed By: #### C D:[id number] #### [address] [address] Hemoglobin (Bld) [Mass/Vol] 15.5 g/dL Normal 13.5-17.5 [facility] Comment on above: Performed By: #### C D:[id number] #### [address] [address] MCH (RBC) [Entitic mass] 30.9 pg Normal 27.0-35.0 [facility] Comment on above: Performed By: #### C D:[id number] #### [address] [address] MCHC 33.3 % Normal 31.0-37.0 [facility] Comment on above: Performed By: #### C D:[id number] #### [place] [address]40 MCV (RBC) [Entitic vol] 92.9 fL Normal 80.0-100.0 [facility] Comment on above: Performed By: #### C D:[id number] #### [place] [address] Platelet 191 x10*3/mcL Normal 150-450 [facility] Comment on above: Performed By: #### C D:[id number] #### [address] [address] Platelet mean volume (Bld) [Entitic vol] 11.3 fL High 6.7-10.6 [facility] Comment on above: Performed By: #### C D:[id number] #### [place] [id number] RBC 5.02 x10*6/mcL Normal 4.30-5.80 [facility] Comment on above: Performed By: #### C D:[id number] #### [place] [address] WBC 8.2 x10*3/mcL Normal 4.5-11.0 [facility] Comment on above: Performed By: #### C D:[id number] #### [place] [address] MRSA, PCRon 09-10-2023 LAB ONLY Result Called? No Normal [facility] Comment on above: Performed By: #### E GFR #### [place] [id number] Methicillin Resistant Staph aurus(MRSA) Not detected Normal Not Detected [facility] Comment on above: Result Comment: Mut ations or polymorphisms in primer or probe binding regions may affect detection of new or unknown MRSA variants resulting in a false negative. The [employer] Xpert MRSA Assay is a qualitative in [...] clinician. Performed By: #### E GFR #### [address] [address] PTon 09-10-2023 INR Coag (PPP) [Relative time] 0.9 {INR} Normal <=3.5 [facility] Comment on above: Result Comment: INR has no normal range. INR Therapeutic range is: 2.0-3.0 (AF, CVA, TIAs, DVT prophylaxis, acute DVT) 2.5-3.5 (Mech heart valves, recurrent thrombosis/emboli) Performed By: #### P TINR #### [address] [address] PT Coag (PPP) [Time] 9.8 s Normal 9.2-12.0 [facility] Comment on above: Performed By: #### P TINR #### [address] [address] PTTon 09-10-2023 aPTT Coag (Bld) [Time] 22.0 s Normal 19.5-28.2 [facility] Comment on above: Performed By: #### C D:[id number] #### [address] [address] XR hand LT min 3V*on 024 XR hand LT min 3V* [facility] Main [address] [address] XRay Report Signed Patient: Neal Parker MR#: [id number] : 1980 Acct:[id number] Age/Sex: 42 / M ADM Date: 06/03/23 Loc: SOXD Room: Type: [facility] Attending Dr: Nisha Villanueva MD Copies to: [...] Greer Jr., D.OIbrahima06/03/2023 3:46 PM Dictation Location: [place] [address] Transcribed By: [facility] 06/03/23 1546 Dictated By: Sonny Greer Jr, DO 06/03/23 1545 Signed By: 06/03/23 1546 Normal [facility] Amylaseon 07-15-2022 Amylase 43 U/L Normal 29-103 U/L [employer] Other Amylase [Enzymatic activity/ volume] in Serum or PlasmaOrdered By: Maribeth Vuong on 07-15-2022 Amylase [Catalytic activity/Vol] 43 U/L 29-103 [facility] Basophils Auto (Bld) [#/Vol] Ordered By: Maribeth Vuong on 07-15-2022 Basophils (Bld) [#/Vol] 0.0 10*3/uL 0.0-0.2 [facility] Basophils/100 WBC Auto (Bld) Ordered By: Maribeth Vuong on 07-15-2022 Basophils/100 WBC (Bld) 0.5 % . [place] CBC W MANUAL DIFFon 07-16-19 23 ATYPICAL LYMPH # Normal [facility] Comment on above: Performed By: #### [facility] ####[facility] [address] [place] [id number]. Sydney David ATYPICAL LYMPH % Normal [facility] Comment on above: Performed By: #### C JEAN ####[facility] [address] [place] [address]Dr. Yilan David BAND # 0.1 103/ul Normal 0.0-0.3 [facility] Comment on above: Performed By: #### C JEAN ####[facility] [address] [place] [address]Dr. Yilan David BAND % 1 % Normal 0-5 [facility] Comment on above: Performed By: #### C JEAN ####[facility] [address] [place], [place] [address]Dr. Sydney David BASOM # 0.00 103/ul Normal 0.00-0.10 [facility] Comment on above: Performed By: #### C JEAN ####[facility] [address] [place], [place] [address]Dr. Yimera David BASOM % 0.0 % Critically low 0.2-2.0 [facility] Comment on above: Performed By: #### C JEAN ####[facility] [address] [place], [place] [address]Dr. Yimera David BLAST # Normal [facility] Comment on above: Performed By: #### C JEAN ####[facility] [address] [place] [address]Dr. Yimera David BLAST % Normal [facility] Comment on above: Performed By: #### C JEAN ####[facility] [address] [place] [address]Dr. Sydney David CORRECTED WBC Normal 4.0-11.0 [facility] Comment on above: Performed By: #### C JEAN ####[facility] [address] [place] [address]Dr. Keylan David EOS # 0.24 103/ul Normal 0.00-0.70 [facility] Comment on above: Performed By: #### C JEAN ####[facility] [address] [place] [id number]. Sydney David EOS% 3.0 % Normal 0.9-7.0 [facility] Comment on above: Performed By: #### C JEAN ####[facility] [address] [place] [id number]. Sydney David HCT 46.4 % Normal 42.0-54.0 [facility] Comment on above: Performed By: #### C JEAN ####[facility] [address] [place] [id number]. Sydney David HGB 15.4 g/dl Normal 14.0-18.0 [facility] Comment on above: Performed By: #### C JEAN ####[facility] [address] [place] [id number]. Sydney David LYMPHM # 3.36 103/ul Normal 1.20-3.80 [facility] Comment on above: Performed By: #### Maya PENA ####[facility] [address] [place] [id number]. Sydney David LYMPHM% 42.0 % Normal 20.5-60.0 [facility] Comment on above: Performed By: #### Maya PENA ####[facility] [address] [place] [id number]. Sydney David MCH 30.3 pg Normal 25.9-34.0 [facility] Comment on above: Performed By: #### Maya PENA ####[facility] [address] [place] [id number]. Sydney David MCHC 33.2 g/dl Normal 29.9-35.2 [facility] Comment on above: Performed By: #### Maya PENA ####[facility] [address] [place] [id number]. Sydney David MCV 91.3 fL Normal 80.0-94.0 [facility] Comment on above: Performed By: #### Maya PENA ####[facility] [address] [place] [id number]. Sydney David METAMYELOCYTE # Normal [facility] Comment on above: Performed By: #### C JEAN ####[facility] [address] [place] [id number]. Sydney David METAMYELOCYTE % Normal [facility] Comment on above: Performed By: #### C JEAN ####[facility] [address] [place] [id number]. Sydney David MONOM# 0.80 103/ul Normal 0.30-0.80 [facility] Comment on above: Performed By: #### C JEAN ####[facility] [address] [place] [id number]. Sydney David MONOM% 10.0 % Normal 1.7-12.0 [facility] Comment on above: Performed By: #### C JEAN ####[facility] [address] [place] [phone]. Sydney David MPV 11.8 fL Normal 9.5-13.5 [facility] Comment on above: Performed By: #### C JEAN ####[facility] [address] [place] [id number]. Sydney David MYELOCYTE # Normal [facility] Comment on above: Performed By: #### C JEAN ####[facility] [address] [place] [phone]. Sydney David MYELOCYTE % Normal [facility] Comment on above: Performed By: #### C JEAN ####[facility] [address] [place] [phone]. Sydney David NRBC Normal [facility] Comment on above: Performed By: #### C JEAN ####[facility] [address] [place] [phone]. Sydney David PLT 249 103/ul Normal 150-450 [facility] Comment on above: Performed By: #### C JEAN ####[facility] [address] [place] [id number]. Sydney David RBC 5.08 106/ul Normal 4.70-6.10 [facility] Comment on above: Performed By: #### C JEAN ####[facility] [address] [place], [place] [address]Ay. Sydney David RDW 13.1 % Normal 11.0-15.0 [facility] Comment on above: Performed By: #### C JEAN ####[facility] [address] [place], [place] [address]Er. Sydney David SEG # 3.52 103/ul Normal 1.40-6.50 [facility] Comment on above: Performed By: #### C JEAN ####[facility] [address] [place], [place] [address]Cy. Sydney David SEG % 44.0 % Normal 43.0-75.0 [facility] Comment on above: Performed By: #### C JEAN ####[facility] [address] [place], [place] [address]Nf. Sydney David WBC 8.0 103/ul Normal 4.0-11.0 [facility] Comment on above: Performed By: #### C JEAN ####[facility] [address] [place], [place] [address]Sc. [address] ABD/PELV W CONon 07-16-19 [...] EVANGELIST LEOS Date: 2022-07-15 16:53 Normal [facility] Complete Blood Count Auto Di ffon 07-15-2022 Basophils (Bld) [#/Vol] 0.964868227 10*3/uL Normal 0.0-0.2 10*3/uL [employer] Other Basophils/100 WBC (Bld) 0.500 % . % N [employer] Other Eosinophils (Bld) [#/Vol] 0.617115447 10*3/uL High 0.0-0.45 10*3/uL [employer] Other Eosinophils/100 WBC (Bld) 6.100 % . % [employer] Other Erythrocyte distribution width (RBC) [Ratio] 13.600 % Normal 12.0-14.8 % [employer] Other Hematocrit (Bld) [Volume fraction] 47.400 % Normal 38.8-50.0 % [employer] Other Hemoglobin (Bld) [Mass/Vol] 15.348931 g/dL Normal 13.0-17.0 g/dL [employer] Other Lymphocytes (Bld) [#/Vol] 4.104517154 10*3/uL Normal 1.00-4.8 10*3/uL [employer] Other Lymphocytes/100 WBC (Bld) 46.500 % . % [employer] Other MCH (RBC) [Entitic mass] 30.2000 pg Normal 27.5-35.2 pg [employer] Other MCV (RBC) [Entitic vol] 92.3000 fL Normal 83.5-101 fL [employer] Other Monocytes (Bld) [#/Vol] 0.655944720 10*3/uL Normal 0.0-0.8 10*3/uL [employer] Other Monocytes/100 WBC (Bld) 8.300 % . % N [employer] Other Neutrophils (Bld) [#/Vol] 3.626782779 10*3/uL Normal 1.8-7.7 10*3/uL [employer] Other Neutrophils/100 WBC (Bld) 38.600 % . % [employer] Other Platelet mean volume (Bld) [Entitic vol] 11.1000 fL High 6.6-10.1 fL [employer] Other WBC (Bld) [#/Vol] 9.343047704 10*3/uL Normal 4.1 -10.5 10*3/uL [employer] Other Complete Blood Count Auto Diff 9.2 10*3/uL Normal 4.1-10.5 10*3/uL [employer] Other Complete Blood Count Auto Diff 32.7 g/dL Normal 32.5-35.6 g/dL [employer] Other Complete Blood Count Auto Diff 0.0 /100{WBC} Normal 0-0.5 /100{WBC} [employer] Other Complete Blood Count Auto Di ffOrdered By: Maribeth Vuong on 07-15-2022 Platelets (Bld) [#/Vol] 236 10*3/uL 150-450 [facility] RBC (Bld) [#/Vol] 5.13 10*6/uL 3.90-5.60 [facility] ER URINE PROFILEon 3 Bilirubin Ql (U) Negative Normal NEGATIVE [facility] Comment on above: Performed By: #### E RUR ####[facility] [address] [place], [place] [address]Dr. Sydney David Clarity (U) CLEAR Normal CLEAR [facility] Comment on above: Performed By: #### E RUR ####[facility] [address] [place], [place] [address]Dr. Sydney David Color (U) LT. YELLOW Normal YELLOW [facility] Comment on above: Performed By: #### E RUR ####[facility] [address] [place], [place] [address]Dr. Sydney David ERUAHD A micrscopic examination will be performed if indicated. Normal [facility] Comment on above: Performed By: #### E RUR ####[facility] [address] [place], [place] [address]Dr. Sydney David Glucose Ql (U) Negative Normal NEGATIVE [facility] Comment on above: Performed By: #### E RUR ####[facility] [address] [place], [place] [address]Dr. Sydney David Hemoglobin Ql (U) Negative Normal NEGATIVE [facility] Comment on above: Performed By: #### E RUR ####[facility] [address] [place], [place] [address]Dr. Sydney David Ketones Ql (U) Negative Normal NEGATIVE [facility] Comment on above: Performed By: #### E RUR ####[facility] [address] [place], [place] [address]Dr. Sydney David LEUKOCYTES Negative Normal NEGATIVE [facility] Comment on above: Performed By: #### E RUR ####[facility] [address] [place], [place] [address]Dr. Sydney David Nitrite Ql (U) Negative Normal NEGATIVE [facility] Comment on above: Performed By: #### E RUR ####[facility] [address] [place], [place] [address]Dr. Sydney David pH (U) 5.5 [pH] Normal 5-9 [facility] Comment on above: Performed By: #### E RUR ####[facility] [address] [place] [address]Dr. Sydney David SPEC GRAVITY 1.010 Normal 1.005-<=1.0 25 [facility] Comment on above: Performed By: #### E RUR ####[facility] [address] [place] [address]Dr. Sydney David UA PROTEIN Negative Normal NEGATIVE/ TRACE [facility] Comment on above: Performed By: #### E RUR ####[facility] [address] [place] [address]Dr. Sydney Frankie UR MICRO IND NOT INDICATED Normal [facility] Comment on above: Performed By: #### E RUR ####[facility] [address] [place] [address]Dr. Sydney David Urobilinogen Qn (U) 0.2 {Johan'U}/dL Normal 0.2 - 1. 0 [facility] Comment on above: Performed By: #### E RUR ####[facility] [address] [place] [address]Dr. Sydney David Eosinophils Auto (Bld) [#/Vo l]Ordered By: Maribeth Vuong on 07-15-2022 Eosinophils (Bld) [#/Vol] 0.6 10*3/uL 0.0-0.45 [facility] Eosinophils/100 WBC Auto (Bl d)Ordered By: Maribeth Vuong on 07-15-2022 Eosinophils/100 WBC (Bld) 6.1 % . [facility] Erythrocyte distribution wid th Auto (RBC) [Ratio]Ordered By: Maribeth Vuong on 07-15-2022 Erythrocyte distribution width (RBC) [Ratio] 13.6 % 12.0-14.8 [facility] Hematocrit Auto (Bld) [Volum e fraction]Ordered By: Maribeth Vuong on 07-15-2022 Hematocrit (Bld) [Volume fraction] 47.4 % 38.8-50.0 [facility] Hemoglobin [Mass/volume] in BloodOrdered By: Maribeth Vuong on 07-15-2022 Hemoglobin (Bld) [Mass/Vol] 15.5 g/dL 13.0-17.0 [facility] Leukocytes [#/volume] correc gris for nucleated erythrocytes in Blood by Automated counOrdered By: Maribeth Vuong on 07-15-2022 WBC corrected for nucl RBC Auto (Bld) [#/Vol] 9.2 10*3/uL 4.1-10.5 [facility] Lipaseon 07-15-2022 Lipase [Catalytic activity/Vol] 80.14776 U/L Normal 11.0-82.0 U/L [employer] Other Lipase [Enzymatic activity/v olume] in Serum or PlasmaOrdered By: Maribeth Vuong on 07-15-2022 Lipase [Catalytic activity/Vol] 80.0 U/L 11.0-82.0 [facility] Lymphocytes Auto (Bld) [#/Vo l]Ordered By: Maribeth Vuong on 07-15-2022 Lymphocytes (Bld) [#/Vol] 4.3 10*3/uL 1.00-4.8 [facility] Lymphocytes/100 WBC Auto (Bl d)Ordered By: Maribeth Vuong on 07-15-2022 Lymphocytes/100 WBC (Bld) 46.5 % . [facility] MCH Auto (RBC) [Entitic mass ]Ordered By: Maribeth Vuong on 07-15-2022 MCH (RBC) [Entitic mass] 30.2 pg 27.5-35.2 [facility] MCHC Auto (RBC) [Mass/Vol]Or dered By: Maribeth Vuong on 07-15-2022 MCHC (RBC) [Mass/Vol] 32.7 g/dL 32.5-35.[address] [facility] MCV Auto (RBC) [Entitic vol] Ordered By: Maribeth Vuong on 07-15-2022 MCV (RBC) [Entitic vol] 92.3 fL 83.5-101 [facility] [place] Monocytes Auto (Bld) [#/Vol] Ordered By: Maribeth Vuong on 07-15-2022 Monocytes (Bld) [#/Vol] 0.8 10*3/uL 0.0-0.8 [facility] Monocytes/100 WBC Auto (Bld) Ordered By: Maribeth Vuong on 07-15-2022 Monocytes/100 WBC (Bld) 8.3 % . [facility] [place] Neutrophils Auto (Bld) [#/Vo l]Ordered By: Maribeth Vuong on 07-15-2022 Neutrophils (Bld) [#/Vol] 3.6 10*3/uL 1.8-7.7 [facility] Neutrophils/100 WBC Auto (Bl d)Ordered By: Maribeth Vuong on 07-15-2022 Neutrophils/100 WBC (Bld) 38.6 % . [facility] Nucleated erythrocytes [Pres ence] in Blood by Automated countOrdered By: Maribeth Vuong on 07-15-2022 Nucleated RBC Auto Ql (Bld) 0.0 /100{WBC} 0-0.5 [facility] PROF CHEM 8 (BAS METB)on Anion gap [Moles/Vol] 13.3 mmol/L Normal [facility] Comment on above: Performed By: #### B MP #### [facility] [address] [address] [address] Sydney David Calcium [Mass/Vol] 9.1 mg/dL Normal 8.5-10.1 [facility] Comment on above: Performed By: #### B MP #### [facility] [address] [address] [address] Sydney David Chloride [Moles/Vol] 102 mmol/L Normal 98-107 [facility] Comment on above: Performed By: #### B MP #### [facility] [address] [address] [address] Sydney David CO2 [Moles/Vol] 27.2 mmol/L Normal 21.0-32.0 [facility] Comment on above: Performed By: #### B MP #### [facility] [address] [address] [address] Sydney David Creatinine [Mass/Vol] 1.08 mg/dL Normal 0.70-1.30 [facility] Comment on above: Performed By: #### B MP #### [facility] [address] [address] [address] Sydney David EGFR-AF AZERBAIJANI >60 Normal >=60 [facility] Comment on above: Performed By: #### B MP #### [facility] [address] [address] [address] Sydney David EGFR-NON AF AZERBAIJANI >60 Normal >=60 [facility] Comment on above: Performed By: #### B MP #### [facility] [address] [address] [address] Sydney David Glucose [Mass/Vol] 116 mg/dL Critically high 74-106 [facility] Comment on above: Performed By: #### B MP #### [facility] [address] [address] [address] Sydney David Potassium [Moles/Vol] 3.5 mmol/L Normal 3.5-5.1 [facility] Comment on above: Performed By: #### B MP #### [facility] [address] [address] [address] Sydney David Sodium [Moles/Vol] 139 mmol/L Normal 136-145 [facility] Comment on above: Performed By: #### B MP #### [facility] [address] [address] [address] Sydney David Urea nitrogen [Mass/Vol] 12.0 mg/dL Normal 7.0-18.0 [facility] Comment on above: Performed By: #### B MP #### [facility] [address] [address] [address] Sydney David Urea nitrogen/Creatinine [Mass ratio] 11.1 mg/mg Normal [facility] Comment on above: Performed By: #### B MP #### [facility] [address] [address] [address] Sydney David Platelet mean volume Auto (B ld) [Entitic vol]Ordered By: Maribeth Vuong on 07-15-2022 Platelet mean volume (Bld) [Entitic vol] 11.1 fL 6.6-10.1 [facility] WBC Auto (Bld) [#/Vol]Ordere d By: Maribeth Vuong on 07-15-2022 WBC (Bld) [#/Vol] 9.2 10*3/uL 4.1-10.5 [facility] Alanine aminotransferase [En zymatic activity/volume] in Serum or PlasmaOrdered By: Maribeth Vuong on 07-12-2022 ALT [Catalytic activity/Vol] 68 U/L 7-52 [facility] Albumin [Mass/volume] in Ser um or Plasma by Bromocresol green (BCG) dye binding methoOrdered By: Maribeth Vuong on 07-12-2022 Albumin BCG dye [Mass/Vol] 4.7 g/dL 3.5-5.7 [facility] Alkaline phosphatase [Enzyma tic activity/volume] in Serum or PlasmaOrdered By: Maribeth Vuong on 07-12-2022 ALP [Catalytic activity/Vol] 33 U/L 34-104 [facility] Aspartate aminotransferase [ Enzymatic activity/volume] in Serum or PlasmaOrdered By: Maribeth Vuong on 07-12-2022 AST [Catalytic activity/Vol] 29 U/L 13-39 [facility] Bilirubin.total [Mass/volume ] in Serum or PlasmaOrdered By: Maribeth Vuong on 07-12-2022 Bilirubin [Mass/Vol] 0.6 mg/dL 0.3-1.0 [facility] Calcium [Mass/volume] in Ser um or PlasmaOrdered By: Maribeth Vuong on 07-12-2022 Calcium [Mass/Vol] 10.1 mg/dL 8.6-10.3 [facility] Carbon dioxide, total [Moles /volume] in Serum or PlasmaOrdered By: Maribeth Vuong on 07-12-2022 CO2 [Moles/Vol] 27.5 mmol/L 21.0-31.0 [facility] Chloride [Moles/volume] in S flash or PlasmaOrdered By: Maribeth Vuong on 07-12-2022 Chloride [Moles/Vol] 106 mmol/L 98-107 [facility] Cholesterol [Mass/volume] in Serum or PlasmaOrdered By: Maribeth Vuong on 07-12-2022 Cholesterol [Mass/Vol] 296 mg/dL 140-200 [facility] Comment on above: Chol less than 200 m g/dl low riskChol 201-239 mg/dl borderline riskChol 240 mg/dl and greater high risk Cholesterol in LDL Calc [Mas s/Vol]Ordered By: Maribeth Vuong on 07-12-2022 Cholesterol in LDL [Mass/Vol] 206 mg/dL 0-100 [facility] Comment on above: LDL ATP III CLASSIFI CATIONLDL less than 100 mg/dL OptimalLDL 100-129 mg/dL Near or above optimalLDL 130-159 mg/dL Borderline highLDL 160-189 mg/dL HighLDL greater than 189 mg/dL Very high Cholesterol in VLDL Calc [Ma ss/Vol]Ordered By: Maribeth Vuong on 07-12-2022 Cholesterol in VLDL [Mass/Vol] 53 mg/dL [facility] Creatinine [Mass/volume] in Serum or PlasmaOrdered By: Maribeth Vuong on 07-12-2022 Creatinine [Mass/Vol] 0.96 mg/dL 0.70-1.[address] [facility] Globulin Calc (S) [Mass/Vol] Ordered By: Maribeth Vuong on 07-12-2022 Globulin (S) [Mass/Vol] 2.6 g/dL [facility] [place] Glucose [Mass/volume] in Ser um or PlasmaOrdered By: Maribeth Vuong on 07-12-2022 Glucose [Mass/Vol] 106 mg/dL 70-100 [facility] Comment on above: ADA recommended refe rence rangeRandom Glucose Reference Range is dependent on time and content of last meal. Glucose of more than 200 mg/dL in a nonstressed, ambulatory subject supports the diagnosis of Diabetes Mellitus. No Panel InformationOrdered By: Maribeth Vuong on 07-12-2022 Estimated GFR (CKD-EPI) > 60.0 mL/Min [facility] Creatinine Clearance (Chem N/A [facility] Potassium [Moles/volume] in Serum or PlasmaOrdered By: Maribeth Vuong on 07-12-2022 Potassium [Moles/Vol] 4.3 mmol/L 3.5-5.[address] [facility] Prostate specific Ag [Mass/v olume] in Serum or PlasmaOrdered By: Maribeth Vuong on 07-12-2022 Prostate specific Ag [Mass/Vol] 0.670 ng/mL 0.000-4.000 [facility] Protein [Mass/volume] in Ser um or PlasmaOrdered By: Maribeth Vuong on 07-12-2022 Protein [Mass/Vol] 7.3 g/dL 6.4-8.9 [facility] Serum or plasma albumin/glob ulin mass ratioOrdered By: Maribeth Vuong on 07-12-2022 Albumin/Globulin [Mass ratio] 1.8 {ratio} [facility] Serum or plasma anion gap de terminationOrdered By: Maribeth Vuong on 07-12-2022 Anion gap [Moles/Vol] 11.8 mmol/L 6.0-15.0 [facility] Serum or plasma high density lipoprotein (HDL) cholesterol measurementOrdered By: Maribeth Vunog on 07-12-2022 Cholesterol in HDL [Mass/Vol] 37 mg/dL [facility] Comment on above: HDL CHOL ATP-III CLA SSIFICATION Cardiovascular RiskHDL > or equal to 60 mg/dL LOWHDL < 40 mg/dL HIGH Serum or plasma total choles terol/high density lipoprotein (HDL) cholesterol mass ratOrdered By: Maribeth Vuong on 07-12-2022 Cholesterol.total/Patti sterol in HDL [Mass ratio] 8.0 {ratio} <5.0 [facility] Sodium [Moles/volume] in Ser um or PlasmaOrdered By: Maribeth Vuong on 07-12-2022 Sodium [Moles/Vol] 141 mmol/L 136-145 [facility] Triglyceride [Mass/volume] i n Serum or PlasmaOrdered By: Maribeth Vuong on 07-12-2022 Triglyceride [Mass/Vol] 266 mg/dL 0-149 [facility] [place] Comment on above: TRIG ATP III CLASSIF ICATIONTRIG less than 150 mg/dL NormalTRIG 150-199 mg/dL Borderline highTRIG 200-500 mg/dL High TRIG greater than 500 mg/dL Very highStandard traceable to the Center for Disease Conrtrol and Prevention (CDC) test method. Urea nitrogen [Mass/volume] in Serum or PlasmaOrdered By: Maribeth Vuong on 07-12-2022 Urea nitrogen [Mass/Vol] 12 mg/dL 10-29 [facility] XR LSPINE 2_3 VIEWSon 2022 XR LSPINE [...] by: DAMARIS ESPINOSA Date: 2022-07-02 14:57 Normal [facility] MRI PELVIS WO CONon 06-28-19 MRI PELVIS [...] by: DAMARIS ESPINOSA Date: 2022-06-27 09:45 Normal [facility] MRI LSPINE WO CONon 06-27-19 MRI [...] by: RENE LAUREN Date: 2022-06-26 15:24 Normal [facility] XR lumbar spine AP/LAT/FLX/E XTon 01-08-2021 XR lumbar spine AP/LAT/FLX/EXT [facility] Other XR lumbar spine AP/LAT/FLX/EXT [facility] [employer] Other XR lumbar spine AP/LAT/FLX/EXT [address] [place] [address] [employer] Other XR lumbar spine AP/LAT/FLX/[place] [address] [employer] Other XR lumbar spine AP/LAT/FLX/EXT XRay Report [employer] Other XR lumbar spine AP/LAT/FLX/EXT Signed [employer] Other XR lumbar spine AP/LAT/FLX/EXT Patient: Neal Parker MR#: [id number] [employer] Other XR lumbar spine AP/LAT/FLX/EXT 206 [employer] Other XR lumbar spine AP/LAT/FLX/EXT : 1980 Acct:[id number] [employer] Other XR lumbar spine AP/LAT/FLX/EXT Age/Sex: 40 / M ADM Date: 01/08/21 [employer] Other XR lumbar spine AP/LAT/FLX/EXT Loc: [facility] Room: Type: [facility] [employer] Other XR lumbar spine AP/LAT/FLX/EXT Attending Dr: Charles Solares MD [employer] Other XR lumbar spine AP/LAT/FLX/EXT Ordering Provider: Charles Solares MD [employer] Other XR lumbar spine AP/LAT/FLX/EXT Date of Service: 01/08/21 [employer] Other XR lumbar spine AP/LAT/FLX/EXT XR/XR lumbar spine AP/LAT/FLX/EXT: Other spondylosis with radiculopathy, [employer] Other XR lumbar spine AP/LAT/FLX/EXT lumbar region [employer] Other XR lumbar spine AP/LAT/FLX/EXT Copies to: Charles Solares MD [employer] Other XR lumbar spine AP/LAT/FLX/EXT Lumbar spine 01/08/2021. [employer] Other XR lumbar spine AP/LAT/FLX/EXT CLINICAL DATA: Low back pain. [employer] Other XR lumbar spine AP/LAT/FLX/EXT FINDINGS: 4 standing views of the lumbar spine were obtained including lateral views in the [employer] Other XR lumbar spine AP/LAT/FLX/EXT neutral, flexion, and extension positions. This examination is compared with a prior study 04/14/2019. [employer] Other XR lumbar spine AP/LAT/FLX/EXT There are stable postsurgical changes related to lumbosacral spinal fusion. There is also stable [employer] Other XR lumbar spine AP/LAT/FLX/EXT anterior malalignment of L5 on S1. Mild posterior malalignment of L2 on L3 is noted. Overall [employer] Other XR lumbar spine AP/LAT/FLX/EXT vertebral alignment does not significantly change with limited flexion or limited extension. Disc [employer] Other XR lumbar spine AP/LAT/FLX/EXT space narrowing is identified. Minimal degenerative changes are seen. [employer] Other XR lumbar spine AP/LAT/FLX/EXT XR/XR lumbar spine AP/LAT/FLX/EXT [employer] Other XR lumbar spine AP/LAT/FLX/EXT IMPRESSION: Stable postsurgical changes and mild vertebral malalignment at the lumbosacral junction. [employer] Other XR lumbar spine AP/LAT/FLX/EXT Mild posterior malalignment of L2 on L3. No instability with limited flexion or extension. Disc [employer] Other XR lumbar spine AP/LAT/FLX/EXT space narrowing and minimal degenerative changes. [employer] Other XR lumbar spine AP/LAT/FLX/EXT Impression dictated by: Jude Stock Jr., M.D.01/08/2021 2:59 PM [employer] Other XR lumbar spine AP/LAT/FLX/EXT Dictation Location: [place] [address] [employer] Other XR lumbar spine AP/LAT/FLX/EXT Transcribed By: PWS 01/08/21 2388 [employer] Other XR lumbar spine AP/LAT/FLX/EXT Dictated By: Jude Stock Jr, MD 01/08/21 2439 [employer] Other XR lumbar spine AP/LAT/FLX/EXT Signed By: [employer] Other XR lumbar spine AP/LAT/FLX/EXT 01/08/21 2343 [employer] Other CNOVon 06-09-2018 CNOV Office Visit (NSFRVW ) NEAL PARKER ([id number]) 1980 M Date Time Provider Department 06/09/18 [...] fx. Had surgery by Dr. Robbie Wakefield, [facility] in [place]. He felt that he was better in [...] bone Plan : Per Dr. 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 Author Type: [...] fx. Had surgery by Dr. Robbie Wakefield [facility] in [place]. 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 Hx of back problems and surgeries. Took two [place], flexeril, celebrex prior to coming. Needs another surgery for back. History of Present Illness 37-year-old white male presents emergency room with his and complaints of worsening lower back pain after bending over to light his heater in his shop. Patient has had prior back surgery by Dr. Sen in [place] March 14, 2015. Patient states he has [...] Anxious mood & affect. Integumentary: Warm, Dry, [place] Medical Decision Making X-rays did not demonstrate [...] In 3 days 04/04/2018 EST [address] [place] [address]- Business (1) Additional Instructions: Call tomorrow for [...] made to ensure accuracy, however, inadvertently computerized oracle solutions architect mistakes may be present. Patient was treated and evaluated by the physician investment sales assistant. The attending physician was in [...] acute fracture. Signed By: Andreas Cordova MD [facility] Comment on above: Result Comment: Elec tronically Signed By: Abdelrahman Olvera PA-C\.br\Date and Time Signed: 04/01/18 12:55 EST\.br\Electronically Co-Signed By: Lashay Li DO\.br\Date and Time Co-Signed: 04/07/18 16:20 EST Coding Summary.on 04-02-2018 Coding Summary. CODING DATE: 04/02/2018 FINAL [facility] STATUS: Home (Routine DC) PAYOR: [employer] APC DESCRIPTION 5522 Level 2 Imaging without Contrast ADMIT DX: REASON FOR VISIT DX: M54.5 Low back pain FINAL DX: PRINCIPAL: M54.5 Low back pain SECONDARY: M53.3 Sacrococcygeal disorders, not elsewhere classified Z79.899 Other penitentiary (current) drug therapy PYMT PROC APC STAT DESCRIPTION DOCTOR NAME DATE NOTE: The code number assigned matches the documented diagnosis and / or procedure in the patient's chart. However, the narrative phrase printed from the coding software may appear abbreviated, or result in slightly different terminology. Coded By: Laila Mcghee Date Saved: 04/02/2018 11:01 am Normal [facility] ED Clinical Summaryon 2017 ED Clinical Summary [address] [address] ED Clinical Summary Person Information [facility] Age[facility] 37 Years : 1980 12:00 AM Sex: Male Language: Armenian PCP: RENE MORRELL DO Marital Status: Visit [...] 04/01/2018 1:01 PM 04/01/2018 1:01 PM ADDRESS: [address] [place] [phone] PHYS DOC NOTES: MEDICAL INFORMATION: Prescriptions Given: [...] Adult Follow up: With: Address: When: RENE Sotomayor [address] [id number] [employer] (1) In 3 days 04/04/2018 Comments: Call [...] the lower extremities DIAGNOSIS: Lumbosacral pain Normal [facility] ED Patient Education Noteon 04-01-2018 ED Patient [...] stressful on the back to sit or manager of administration 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 Do not sit, drive, or manager of administration one place for more than 30 minutes [...] pillow under your knees. ? Only take zljk-mkj-vinfnxa or prescription medicines as directed by your caregiver. Sxuw-zxq-mtpnkez medicines to reduce pain and inflammation are [...] 03/24/2006 Document Revised: 09/22/2012 Document Reviewed: 07/26/2014 [facility]? Patient Information ?2014 [employer]. This information is not intended to replace [...] the first months of treatment. Only take cbki-xag-nhkvjhv or prescription medicines for pain, discomfort, or [...] Document Reviewed: 07/17/2009 ExitCare? Patient Information ?2014 [employer]. This information is not intended to replace advice given to you by your health care provider. Make sure you discuss any questions you have with your health care provider. Normal [facility] ED Patient Summaryon 018 ED Patient Summary [place] [id number] Patient Discharge Instructions Person Information Name: NEAL PARKER Age: 37 Years Arrival Date: 04/01/2018 11:05 AM Discharge Diagnosis: Lumbosacral pain Primary Care Physician: RENE MORRELL DO Provider Information Primary Provider: Lashay Li DO Advanced Station Inspector:Abdelrahman Olvera PA-C The exam and treatment you received in the Emergency Department were for an urgent problem and are not intended as complete care. It is important that you follow up with a doctor, nurse practitioner, or physician?s investment sales assistant for ongoing care. If your [...] Follow-up Instructions: With: Address: When: RENE MORRELL [address] [place] [id number] [facility] (1) In 3 days 04/04/2018 Comments: Call [...] opioids can be used to help relieve tvccertl-dx-zfwubx pain and are often prescribed following a [...] with addiction, tell your health patient care and ask for guidance or call [facility] National Helpline at 2-063-508-QXVK. l Source: US Department of Health and Human Services/Center for Disease Control & Prevention [facility] Medications Given: Medication Dose Route [...] Comment: Pharmacy Information: Thank you for choosing [facility] Patient Education Materials: Radicular Pain Radicular [...] the first months of treatment. Only take rotw-glm-iopjpxq or prescription medicines for pain, discomfort, or [...] Document Reviewed: 07/17/2009 ExitCare? Patient Information ?2014 [employer]. This information is not intended to replace [...] stressful on the back to sit or manager of administration one place. Do not sit, drive, or manager of administration one place for more than 30 minutes [...] pillow under your knees. ? Only take puta-qjz-cmdedcs or prescription medicines as directed by your caregiver. Zdix-fyw-uqdzjwc medicines to reduce pain and inflammation are [...] Document Reviewed: 07/26/2014 ExitCare? Patient Information ?2014 [employer]. This information is not intended to replace advice given to you by your health care provider. Make sure you discuss any questions you have with your health care provider. ELENA Bolden RUSSELL , have received the following patient education materials/instruction s and have verbalized understanding: Patient Education Materials: Radicular Pain; Back Pain, Adult Follow-up Instructions: With: Address: When: RENE MORRELL [address] [place] [address] [facility] (1) In 3 days 04/04/2018 Comments: Call [...] Signature Date Clinician/Nurse Signature Date 04/01/18 13:01:03 [facility] Progress Note-Nurseon 2017 Protein mass conc [...] . No further needs at this time. [facility] XR Spine Lumbosacral Minimum 4 Viewson [...] Signed by: Andreas Cordova MD Transcribed by: DP Technologist: [facility] Vital Signs Date Time Vital Sign Value Performing Clinician Facility 01-16-2024 07:45-0400 Body height 177.8 cm [facility] 01-16-2024 07:45-0400 Body mass index (BMI) [Ratio] 36.7 kg/m2 [facility] 01-16-2024 07:45-0400 Body weight 116.11 kg [facility] 01-16-2024 07:45-0400 Diastolic blood pressure 88 mm[Hg] [facility] 01-16-2024 07:45-0400 Heart rate 96 /min [facility] 01-16-2024 07:45-0400 SaO2% (BldA) [Mass fraction] 97 % [facility] 01-16-2024 07:45-0400 Systolic blood pressure 128 mm[Hg] [facility] 09-15-2023 10:19-0400 Body height 177.8 cm [facility] 09-15-2023 10:19-0400 Body mass index (BMI) [Ratio] 37.3 kg/m2 [facility] 09-15-2023 10:19-0400 Body weight 117.93 kg [facility] 09-15-2023 10:19-0400 Diastolic blood pressure 84 mm[Hg] [facility] 09-15-2023 10:19-0400 Heart rate 88 /min [facility] 09-15-2023 10:19-0400 SaO2% (BldA) [Mass fraction] 97 % [facility] 09-15-2023 10:19-0400 Systolic blood pressure 124 mm[Hg] [facility] 07-21-2023 07:59-0400 Body height 177.8 cm DO Maribeth Vuong Work Phone: [facility] 07-21-2023 07:59-0400 Body mass index (BMI) [Ratio] 40.1 kg/m2 DO Maribeth Vuong Work Phone: [facility] 07-21-2023 07:59-0400 Body weight 127 kg DO Maribeth Vuong Work Phone: [facility] 07-21-2023 07:59-0400 Diastolic blood pressure 86 mm[Hg] DO Maribeth Vuong Work Phone: [facility] 07-21-2023 07:59-0400 Heart rate 76 /min DO Maribeth Vuong Work Phone: [facility] 07-21-2023 07:59-0400 SaO2% (BldA) [Mass fraction] 98 % DO Maribeth Vuong Work Phone: [facility] 07-21-2023 07:59-0400 Systolic blood pressure 128 mm[Hg] DO Maribeth Vuong Work Phone: [facility] 01-17-2023 09:00-0400 Body height 177.8 cm Maribeth Woodymer Other [employer] Other 01-17-2023 09:00-0400 Body mass index (BMI) [Ratio] 39.17 kg/m2 Maribeth Vuong Other [employer] Other 01-17-2023 09:00-0400 Body temperature 97.7 [degF] aMribeth Woodymer Other [employer] Other 01-17-2023 09:00-0400 Body weight 123.83 kg Maribeth Vuong Other [employer] Other 01-17-2023 09:00-0400 Diastolic blood pressure 78 mm[Hg] Maribeth Carolann Other [employer] Other 01-17-2023 09:00-0400 SaO2% (BldA) [Mass fraction] 98 % Maribeth Carolann Other [employer] Other 01-17-2023 09:00-0400 Systolic blood pressure 112 mm[Hg] Maribeth Vuong Other [employer] Other 12-18-2022 09:45-0400 Body height 177.8 cm Maribeth Vuong Other [employer] Other 12-18-2022 09:45-0400 Body mass index (BMI) [Ratio] 37.73 kg/m2 Maribeth Vuong Other [employer] Other 12-18-2022 09:45-0400 Body weight 119.3 kg Maribeth Vuong Other [employer] Other 12-18-2022 09:45-0400 Diastolic blood pressure 86 mm[Hg] Maribeth Vuong Other [employer] Other 12-18-2022 09:45-0400 Respiratory rate 18 /min Maribeth Carolann Other [employer] Other 12-18-2022 09:45-0400 SaO2% (BldA) [Mass fraction] 95 % Maribeth Vuong Other [employer] Other 12-18-2022 09:45-0400 Systolic blood pressure 126 mm[Hg] Maribeth Vuong Other [employer] Other 12-12-2022 08:00-0400 Body height 177.8 cm Maribeth Vuong Other [employer] Other 12-12-2022 08:00-0400 Body mass index (BMI) [Ratio] 37.73 kg/m2 Maribeth Vuong Other [employer] Other 12-12-2022 08:00-0400 Body temperature 98.5 [degF] Maribeth Vuong Other [employer] Other 12-12-2022 08:00-0400 Body weight 119.3 kg Maribeth Vuong Other [employer] Other 12-12-2022 08:00-0400 Diastolic blood pressure 102 mm[Hg] Maribeth Vuong Other [employer] Other 12-12-2022 08:00-0400 SaO2% (BldA) [Mass fraction] 96 % Maribeth Vuong Other [employer] Other 12-12-2022 08:00-0400 Systolic blood pressure 150 mm[Hg] Maribeth Vuong Other [facility] [employer] Other 09-26-2022 10:22-0400 Diastolic blood pressure 108 mm[Hg] DO Maribeth Voung Work Phone: [facility] 09-26-2022 10:22-0400 Heart rate 74 /min DO Maribeth Woodymer Work Phone: [facility] 09-26-2022 10:22-0400 Respiratory rate 16 /min DO Maribeth Woodymer Work Phone: [facility] 09-26-2022 10:22-0400 SaO2% (BldA) [Mass fraction] 98 % DO Maribeth Woodymer Work Phone: [facility] 09-26-2022 10:22-0400 Systolic blood pressure 156 mm[Hg] DO Maribeth Woodymer Work Phone: [facility] 09-26-2022 08:26-0400 Body height 175.26 cm DO Maribeth Woodymer Work Phone: [facility] 09-26-2022 08:26-0400 Body temperature 98.5 [degF] DO Maribeth Vuong Work Phone: [facility] 09-26-2022 08:26-0400 Body weight 113.39 kg DO Maribeth Vuong Work Phone: [facility] 09-11-2022 09:45-0400 Body height 177.8 cm Maribeth Carolann Other [facility] Other 09-11-2022 09:45-0400 Body mass index (BMI) [Ratio] 35.37 kg/m2 Maribeth Carolann Other [employer] Other 09-11-2022 09:45-0400 Body weight 111.81 kg Maribeth Vuong Other [employer] Other 09-11-2022 09:45-0400 Diastolic blood pressure 88 mm[Hg] Maribeth Vuong Other [employer] Other 09-11-2022 09:45-0400 Respiratory rate 18 /min Maribeth Carolann Other [employer] Other 09-11-2022 09:45-0400 SaO2% (BldA) [Mass fraction] 98 % Maribeth Carolann Other [employer] Other 09-11-2022 09:45-0400 Systolic blood pressure 142 mm[Hg] Maribeth Vuong Other [employer] Other 07-24-2022 10:30-0400 Body height 177.8 cm Igor Orr Other [employer] Other 07-24-2022 10:30-0400 Body mass index (BMI) [Ratio] 35.58 kg/m2 Igor Orr Other [employer] Other 07-24-2022 10:30-0400 Body weight 112.49 kg Igor Castrodian Other [employer] Other 07-24-2022 10:30-0400 Diastolic blood pressure 132 mm[Hg] Igor Castrodian Other [employer] Other 07-24-2022 10:30-0400 Systolic blood pressure 187 mm[Hg] Igor Castrodian Other [employer] Other 07-15-2022 12:15-0400 Body height 177.8 cm Maribeth Vuong Other [employer] Other 07-15-2022 12:15-0400 Body mass index (BMI) [Ratio] 35.58 kg/m2 Maribeth Vuong Other [employer] Other 07-15-2022 12:15-0400 Body temperature 98.1 [degF] Maribeth Vuong Other [employer] Other 07-15-2022 12:15-0400 Body weight 112.49 kg Maribeth Vuong Other [employer] Other 07-15-2022 12:15-0400 Diastolic blood pressure 110 mm[Hg] Maribeth Vuong Other [employer] Other 07-15-2022 12:15-0400 SaO2% (BldA) [Mass fraction] 97 % Maribeth Vuong Other [employer] Other 07-15-2022 12:15-0400 Systolic blood pressure 156 mm[Hg] Maribeth Vuong Other [employer] Other 01-04-2022 12:15-0400 Body height 177.8 cm Maribeth Vuong Other [employer] Other 01-04-2022 12:15-0400 Body mass index (BMI) [Ratio] 34.39 kg/m2 Maribeth Vuong Other [employer] Other 01-04-2022 12:15-0400 Body weight 108.73 kg Maribeth Vuong Other [employer] Other 01-04-2022 12:15-0400 Diastolic blood pressure 86 mm[Hg] Maribeth Vuong Other [employer] Other 01-04-2022 12:15-0400 Respiratory rate 18 /min Maribeth Vuong Other [employer] Other 01-04-2022 12:15-0400 SaO2% (BldA) [Mass fraction] 98 % Maribeth Vuong Other [employer] Other 01-04-2022 12:15-0400 Systolic blood pressure 136 mm[Hg] Maribeth Vuong Other [employer] Other 06-22-2021 10:00-0400 Body height 177.8 cm Maribeth Vuong Other [employer] Other 06-22-2021 10:00-0400 Body mass index (BMI) [Ratio] 34.16 kg/m2 Maribeth Vuong Other [employer] Other 06-22-2021 10:00-0400 Body weight 108 kg Maribeth Carolann Other [employer] Other 06-22-2021 10:00-0400 Diastolic blood pressure 78 mm[Hg] Maribeth Carolann Other [employer] Other 06-22-2021 10:00-0400 Respiratory rate 18 /min Maribeth Woodymer Other [employer] Other 06-22-2021 10:00-0400 SaO2% (BldA) [Mass fraction] 95 % Maribeth Carolann Other [employer] Other 06-22-2021 10:00-0400 Systolic blood pressure 118 mm[Hg] Maribeth Carolann Other [employer] Other 03-08-2021 12:15-0500 Body height 177.8 cm Charles Solares Other [employer] Other 03-08-2021 12:15-0500 Body mass index (BMI) [Ratio] 33.72 kg/m2 Charles Solares Other [employer] Other 03-08-2021 12:15-0500 Body weight 106.6 kg Charles Solares Other [employer] Other 02-12-2021 11:00-0500 Body height 177.8 cm Maribeth Vuong Other [employer] Other 02-12-2021 11:00-0500 Body mass index (BMI) [Ratio] 33.37 kg/m2 Maribeth Vuong Other [employer] Other 02-12-2021 11:00-0500 Body temperature 98.3 [degF] Maribeth Vuong Other [employer] Other 02-12-2021 11:00-0500 Body weight 105.51 kg Maribeth Vuong Other [employer] Other 02-12-2021 11:00-0500 Diastolic blood pressure 88 mm[Hg] Maribeth Vuong Other [employer] Other 02-12-2021 11:00-0500 Respiratory rate 18 /min Maribeth Vuong Other [employer] Other 02-12-2021 11:00-0500 SaO2% (BldA) [Mass fraction] 99 % Maribeth Vuong Other [employer] Other 02-12-2021 11:00-0500 Systolic blood pressure 134 mm[Hg] Maribeth Vuong Other [employer] Other 02-01-2021 11:45-0400 Body height 177.8 cm Maribeth Vuong Other [employer] Other 02-01-2021 11:45-0400 Body mass index (BMI) [Ratio] 35.48 kg/m2 Maribeth Vuong Other [employer] Other 02-01-2021 11:45-0400 Body temperature 98.2 [degF] Maribeth Vuong Other [employer] Other 02-01-2021 11:45-0400 Body weight 112.18 kg Maribeth Vuong Other [employer] Other 02-01-2021 11:45-0400 Diastolic blood pressure 86 mm[Hg] Maribeth Carolann Other [employer] Other 02-01-2021 11:45-0400 Respiratory rate 18 /min Maribeth Carolann Other [employer] Other 02-01-2021 11:45-0400 SaO2% (BldA) [Mass fraction] 97 % Maribeth Woodymer Other [employer] Other 02-01-2021 11:45-0400 Systolic blood pressure 136 mm[Hg] Maribeth Carolann Other [employer] Other Encounters Encounter Date Encounter Type Care Provider Facility Start: 03-18-2024 End: 03-18-2024 ambulatory Nisha Villanueva Facility:[facility] Start: 03-08-2024 End: 03-08-2024 ambulatory Maribeth Vuong Facility:[facility] Start: 03-08-2024 Encounter for preprocedural laboratory examination Nisha Villanueva [facility] Start: 02-24-2024 End: 02-24-2024 ambulatory [facility] Work Phone: Start: 02-24-2024 End: 02-24-2024 Patient encounter procedure [facility] Work Phone: Start: 01-16-2024 End: 01-16-2024 ambulatory [facility] Work Phone: Start: 01-16-2024 End: 01-16-2024 Patient encounter procedure [facility] Phys[facility] [place] Work Phone: Start: 09-30-2023 End: 10-02-2023 Evaluation and management of inpatient Diaz Valdovinos MD Facility:[facility] Start: 09-25-2023 End: 09-25-2023 ambulatory Diaz Valdovinos MD Facility:[facility] Start: 09-15-2023 End: 09-15-2023 ambulatory [facility] Work Phone: Start: 09-15-2023 End: 09-15-2023 Patient encounter procedure [facility] Physician [facility] [place] Work Phone: Start: 09-10-2023 End: 09-10-2023 ambulatory Diaz Valdovinos MD Facility:[facility] Start: 07-21-2023 End: 07-21-2023 ambulatory DO Maribeth Vuong Work Phone: [facility] Work Phone: Start: 07-21-2023 End: 07-21-2023 Patient encounter procedure DO Maribeth Vuong Work Phone: [facility] Work Phone: Start: 06-03-2023 End: 06-03-2023 ambulatory Maribeth Vuong Facility:[facility] Start: 06-03-2023 End: 06-03-2023 Patient encounter procedure DO Maribeth Vuong Work Phone: [facility] Physician [facility] [place] [facility] Work Phone: Start: 05-29-2023 Non-patient / Non-visit DO Maribeth Vuong Work Phone: [facility] Work Phone: Start: 03-13-2023 End: 03-13-2023 ambulatory Maribeth Vuong Other [facility] [employer] Other Start: 03-13-2023 Telephone encounter Maribeth [facility]cer [facility] Start: 02-05-2023 End: 02-05-2023 ambulatory Maribeth Vuong Other [employer] Other Start: 02-05-2023 Telephone encounter Maribeth Mercer [facility] [place] Start: 01-17-2023 End: 01-17-2023 ambulatory Maribeth Vuong Other [employer] Other Start: 01-17-2023 Encounter for genera l adult medical examination without abnormal findings Maribeth Vuong [facility] Start: 01-17-2023 Periodic preventive med est patient 40-64yrs Maribeth Vuong [facility] [place] Start: 12-18-2022 (Procedure) Short Maribeth Vuong [facility] [place] Start: 12-18-2022 End: 12-18-2022 ambulatory Maribeth Vuong Other [employer] Other Start: 12-12-2022 End: 12-12-2022 ambulatory Maribeth Vuong Other [employer] Other Start: 12-12-2022 Office outpatient visit 15 minutes Maribeth Vuong [facility] [place] Start: 12-05-2022 End: 12-05-2022 ambulatory Maribeth Vuong Other [employer] Other Start: 12-05-2022 Telephone encounter Maribeth Mercer [facility] [place] Start: 09-28-2022 End: 09-28-2022 ambulatory Nash Cardenas Other [employer] Other Start: 09-28-2022 Telephone encounter [facility] Start: 09-26-2022 End: 09-26-2022 Admission to same day surgery center DO Maribeth Carolann Work Phone: [facility] Work Phone: Start: 09-26-2022 End: 09-26-2022 ambulatory DO Maribeth Vuong Work Phone: [facility] Work Phone: Start: 09-11-2022 (Procedure) Short Maribeth Vuong [facility] [place] Start: 09-11-2022 End: 09-11-2022 ambulatory Maribeth Vuong Other [employer] Other Start: 09-10-2022 End: 09-10-2022 ambulatory Maribeth Vuong Other [facility] [employer] Other Start: 09-10-2022 Telephone encounter Maribeth Mercer [facility] [place] Start: 09-03-2022 End: 09-03-2022 ambulatory NARENDRANATH LAKSHMIPATHY . Facility:[facility] Start: 08-20-2022 End: 08-20-2022 ambulatory DO Maribeth Vuong Work Phone: [facility] Work Phone: Start: 08-20-2022 End: 08-20-2022 Patient encounter procedure DO Maribeth Vuong Work Phone: [facility] [address] Start: 08-16-2022 End: 08-17-2022 ambulatory NARENDRANATH LAKSHMIPATHY . Facility:[facility] Start: 08-02-2022 End: 08-02-2022 ambulatory Maribeth Vuong Other [facility] Other Start: 08-02-2022 Telephone encounter Maribeth Mercer [facility] [place] Start: 07-30-2022 End: 07-30-2022 ambulatory NARENDRANATH LAKSHMIPATHY . Facility:[facility] Start: 07-24-2022 End: 07-24-2022 ambulatory Igor Orr Other [employer] Other Start: 07-24-2022 Office outpatient ne w 30 minutes Igor Orr [facility] Start: 07-23-2022 End: 07-24-2022 ambulatory NARENDRANATH LAKSHMIPATHY . Facility:[facility] Start: 07-16-2022 End: 07-16-2022 ambulatory Maribeth Vuong Other [facility] Other Start: 07-16-2022 Telephone encounter Maribeth Mercer [facility] [place] Start: 07-15-2022 Office outpatient visit 25 minutes Maribeth Vuong [facility] [place] Start: 07-15-2022 Telephone encounter Maribeth Mercer [facility] [place] Start: 07-15-2022 End: 07-15-2022 ambulatory DO Maribeth Vuong Work Phone: [facility] Other Start: 07-15-2022 End: 07-15-2022 Patient encounter procedure DO Maribeth Vuong Work Phone: [facility] Start: 07-12-2022 End: 07-12-2022 ambulatory DO Maribeth Vuong Work Phone: [facility] Work Phone: Start: 07-12-2022 End: 07-12-2022 Patient encounter procedure DO Maribeth Vuong Work Phone: [facility] [place] Work Phone: Start: 07-02-2022 End: 07-03-2022 ambulatory [...] 01-04-2022 End: 01-04-2022 ambulatory Maribeth Vuong Other [employer] Other Start: 01-04-2022 Encounter for genera l adult medical examination without abnormal findings Maribeth Vuong [facility] [place] Start: 01-04-2022 Periodic preventive med est patient 40-64yrs Maribeth Vuong [facility] Start: 12-13-2021 End: 12-14-[address] JESSICA JOEL . Facility:[facility] Start: 10-31-2021 End: 11-01-[address] JESSICA JOEL . Facility:[facility] Start: 10-03-2021 End: 10-04-2021 ambulatory BRIT SCHUSTER . Facility:[facility] Start: 09-29-2021 End: 09-29-2021 ambulatory MARIBETH VUONG Facility:[facility] Start: 08-17-2021 End: 08-17-2021 ambulatory Charles Solares Other [employer] Other Start: 08-17-2021 Telephone encounter Charles COCHRAN [facility] [place] Start: 08-07-2021 End: 08-07-2021 ambulatory Charles Solares Other [employer] Other Start: 08-07-2021 Telephone encounter Charles COCHRAN [facility] [place] [facility] Start: 07-13-2021 End: 07-13-2021 ambulatory Maribeth Vuong Other [employer] Other Start: 07-13-2021 Telephone encounter Maribeth Vuong [facility] [place] Start: 07-09-2021 End: 07-09-2021 ambulatory Charles Solares Other [employer] Other Start: 07-09-2021 Office outpatient visit 25 minutes Charles Felter [facility] [place] Start: 06-22-2021 End: 06-22-2021 ambulatory Maribeth Vuong Other [employer] Other Start: 06-22-2021 Office outpatient visit 15 minutes Maribeth Vuong [facility] [place] Start: 06-06-2021 End: 06-06-2021 ambulatory Charles Hernandezer Other [employer] Other Start: 06-06-2021 Office outpatient visit 25 minutes Charles Hernandezer [facility] [place] Start: 05-29-2021 End: 05-29-2021 ambulatory Maribeth Vuong Other [employer] Other Start: 05-29-2021 Telephone encounter Maribeth Mercer [facility] [place] Start: 05-22-2021 End: 05-22-2021 ambulatory Maribeth Vuong Other [employer] Other Start: 05-22-2021 Telephone encounter Maribeth Vuong [facility] [place] Start: 05-21-2021 End: 05-21-2021 ambulatory Maribeth Vuong Other [employer] Other Start: 05-21-2021 Telephone encounter Maribeth Vuong [facility] [place] Start: 05-08-2021 End: 05-08-2021 ambulatory Charles Solares Other [employer] Other Start: 05-08-2021 Office outpatient visit 25 minutes Charles Davider [facility] [place] Start: 04-12-2021 End: 04-12-2021 ambulatory Charles Felter Other [employer] Other Start: 04-12-2021 Office outpatient visit 25 minutes Charles Felter [facility] [place] Start: 03-08-2021 End: 03-08-2021 ambulatory Charles Felter Other [employer] Other Start: 03-08-2021 Office outpatient visit 25 minutes Charles Solares [facility] [place] Start: 02-28-2021 End: 02-28-2021 ambulatory Maribeth Vuong Other [facility] [employer] Other Start: 02-28-2021 Telephone encounter Maribeth Carolann [facility] [place] Start: 02-12-2021 End: 02-12-2021 ambulatory Maribeth Vuong Other [employer] Other Start: 02-12-2021 Office outpatient visit 15 minutes Maribeth Carolann [facility] [place] Start: 02-05-2021 Office outpatient visit 25 minutes Charles Solares [facility] [place] Start: 02-01-2021 Office outpatient visit 15 minutes Maribeth Carolann [facility] [place] Start: 01-08-2021 Office outpatient visit 25 minutes Charles Solares [facility] [place] Start: 06-09-2018 End: 06-10-2018 Patient encounter procedure PHI RENE [facility] Start: 04-01-2018 End: 04-01-2018 Emergency department patient visit Lashay Li Facility:[facility] Procedures Date Procedure Procedure Detail Performing Clinician Start: 06-03-2023 Plain X-ray of left hand DO Maribethwaldo Vuong Work Phone: Start: 09-26-2022 Colonoscopy DO Maribeth Vuong Work Phone: Start: 07-15-2022 Diagnostic radiograp hy of abdomen DO Maribeth Vuong Work Phone: Plan of Treatment Date Care Activity Detail Author Start: 09-26-2022 [facility] Patient Education Hemorrhoids (DC) [facility] Work Phone: [facility] Immunizations Immunization Date Immunization Notes Care Provider Fa cility 12-07-2020 COVID-19 Vaccine Corey - Documentation Purposes Only Charles Solares Other [facility] 03-25-2019 Depo-Medrol 80 mg Charles lewis Other [employer] Other 12-11-2017 Kenalog -40 mg Charles Solares Other [employer] Other 05-12-1997 diphtheria and tetan us toxoids, adsorbed for pediatric use [facility] Payers Date Payer Category Payer Unknown 2023 Self-pay [id number] 1979 Unknown [id number] 2.16.84 [id number] 1979 Unknown [id number] 2.16.84 0.1.336033.3.579.2.593 1979 Unknown [id number] 2.16.84 0.1.735177.3.579.2.593 1979 Unknown [id number] 2.16.84 0.1.845856.3.579.2.593 1979 Unknown [id number] 2.16.84 0.1.697162.3.579.2.593 1979 Unknown [id number] 2.16.84 0.1.736953.3.579.2.593 1979 Unknown [id number] 2.16.84 0.1.059768.3.579.2.593 1979 Unknown [id number] 2.16.84 0.1.330279.3.579.2.593 1979 Unknown [id number] 2.16.84 0.1.718730.3.579.2.593 1979 Unknown [id number] 2.16.84 0.1.448846.3.579.2.593 1979 Unknown [id number] 2.16.84 0.1.078695.3.579.2.593 1979 Unknown [id number] 2.16.84 0.1.054179.3.579.2.593 1979 Unknown [id number] 2.16.84 0.1.114552.3.579.2.593 1979 Unknown [id number] 2.16.84 0.1.772462.3.579.2.593 1979 Unknown [id number] 2.16.84 0.1.792809.3.579.2.593 1979 Unknown [id number] 2.16.84 0.1.248480.3.579.2.593 1979 Unknown [id number] 2.16.84 0.1.027341.3.579.2.593 1979 Unknown [id number] 2.16. 840.1.795334.3.579.2.196 1979 Unknown [id number] 2.16. 840.1.007312.3.579.2.196 1979 Unknown [id number] 2.16. 840.1.718232.3.579.2.196 1960 Medicaid [id number] 1960 Unknown [id number] 1959 Unknown [id number] [facility] [id number] Unknown MMO [id number] Unknown [id number] .16.8 40.1.545247.3.579.2.531 Unknown [id number] .16.8 40.1.066226.3.579.2.531 Unknown [id number] .16.8 40.1.102040.3.579.2.531 Social History Date Type Detail Facility Unknown if ever smoked [employer] Other Sex Assigned At Sex Assigned At Bir th [employer] Other Start: 04-13-2019 Tobacco smoking status NHIS Smoker (finding) [facility] Start: 1980 Sex Assigned At Male [facility] [place] Start: 09-26-2022 Tobacco smoking status NHIS Current some day smoker [facility] Start: 01-16-2024 End: 01-16-2024 Tobacco smoking status NHIS Ex-smoker (finding) [facility] Start: 02-24-2024 Sex Male (finding) [facility] Goals Date Patient Goal Desired [...] 8:37am Primary osteoarthritis, left hand acute February 23, 2 024 8:37am [facility] Work Phone: [phone]) 555-856406-27-2024 NoteDate of Admission 09/30/2023 Date of Discharge [...] by Homar Rodgers MD, Jr 10/02/23 05:07 [facility] 09-30-2023 NoteOperative Report DATE OF PROCEDURE: 09/30/2023 [...] [employer] SURGEON: Diaz Valdovinos MD ELECTROMECHANICAL TECHNICIAN: MAGGIE Duran PA-C assisted throughout the procedure [...] dural tear, nerve root injury, nonunion, DVT/PE, MA, stroke, etc. All questions were answered. Informed [...] cord monitoring remained stable (more content not included)...[facility]06-24-2024 NoteChief Complaint Back pain History of Present Illness The patient is a 42-year-old male with complaints of constant low back pain that radiates to shooting pain into his buttocks and perineal region, he did have pain radiating down the posterior legs but had a RFA in February, which helped with his shooting pain. He also has burning and [id number] along the right lateral foot and toes. [...] had a prior L5-S1 posterior spinal fusion [id number]. Review of Systems Constitutional: No fevers, chills [...] CT and MRI Lumbar Spine done at [place] Electronically signed by aQmar Recio PA-C 09/29/23 09:58 EDT Electronically signed by Diaz [facility]inos [facility]* Encounter Date Diagnosis Assessment Notes Treatment Notes Treatment Clinical Notes Mar, Primary osteoarthrit is of both first carpometacarpal joints (ICD-10 - M18.0) [employer] Other 11-01-2023 Evaluation note* Encounter Date Diagnosis Assessment Notes Treatment Notes Treatment Clinical Notes Feb, Primary hypertension (ICD-10 - I10) [employer] Other 10-13-2023 Evaluation note* Encounter Date Diagnosis [...] Jan, Medication monitoring encounter (ICD-10 - Z51.81) [employer] Other 09-13-2023 Evaluation note* Encounter Date Diagnosis Assessment Notes Treatment Notes Treatment Clinical Notes Dec, Primary osteoarthrit is of first carpometacarpal joint of left hand (ICD-10 - M18.12) [employer] Other 09-07-2023 Evaluation note* Encounter Date Diagnosis [...] he has any issues with the medicine. [employer] Other [facility]* Encounter Date Diagnosis Assessment Notes Treatment Notes Treatment Clinical Notes Sep, Primary osteoarthrit is of both first carpometacarpal joints (ICD-10 - M18.0) [employer] Other 04-19-2023 Evaluation note* Encounter Date Diagnosis [...] colonoscopy to rule out luminal etiologies made [employer] Other 04-18-2023 NoteCONSULTATION CONSULTATION DATE: 07/23/2022 TO: [...] our patients to inform us about any [id number] medications or herbal remedies/nutritional supplements/alternative remedies. 2. [...] treatment options with their primary care provider.[facility] [id number] Evaluation note * Encounter Date Diagnosis Assessment Notes Treatment Notes Treatment Clinical Notes Jul, Generalized abdominal pain (ICD-10 - R10.84) [employer] Other 04-10-2023 Evaluation note* Encounter Date Diagnosis [...] Jul, Medication monitoring encounter (ICD-10 - Z51.81) [employer] Other 04-10-2023 Evaluation note* Encounter Date Diagnosis Assessment Notes Treatment Notes Treatment Clinical Notes Jul, Slow transit constipation (ICD-10 - K59.01) [employer] Other 03-28-2023 NoteCONSULTATION CONSULTATION DATE: 07/02/2022 TO: [...] as well as his lumbar spine films.[facility] [id number] Note CONSULTATION CONSULTATION DATE: 06/13/2022 HISTORY OF [...] relief. He has been seen both at [place] and [facility] in the past, and received [...] under the care of Dr. Joshua in [place]. He is unwilling to try Lyrica due [...] Patient is in agreement to this plan.[facility] [id number] NoteCONSULTATION CONSULTATION DATE: 03/14/2022 HISTORY OF PRESENT [...] in three months' time, unless otherwise indicated.[facility] [id number] NoteCONSULTATION CONSULTATION DATE: 02/07/2022 HISTORY OF PRESENT [...] followed up in the office post procedure.[facility] [id number] Evaluation note* Encounter Date Diagnosis Assessment Notes [...] Dec, Prostate cancer screening (ICD-10 - Z12.5) [employer] Other 09-08-2022 NoteCONSULTATION CONSULTATION DATE: 12/13/2021 HISTORY [...] of care and all questions were answered.[facility] [id number] Note CONSULTATION PROCEDURE DATE: 10/31/2021 PREOPERATIVE DIAGNOSIS: [...] will be followed up in the office.[facility] [id number] Note CONSULTATION CONSULTATION DATE: 10/03/2021 This is [...] and will be seen in the clinic. [facility] Signed and Approved by: BRIT SCHUSTER . 10/11/2021 16:28:00[facility]04-04-2022 Evaluation note* Encounter Date Diagnosis Assessment [...] Patient notes prior issues with [facility] billing department and states he [...] note writ ten by Km Cervantes MA, [employer]. Edited and approved by Dr. Charles Solares MD. [employer] Other 03-18-2022 Evaluation note* Encounter Date Diagnosis [...] and he is to continue with it. [employer] Other 03-02-2022 Evaluation note* Encounter Date Diagnosis [...] note writ ten by Km Cervantes CMA, [employer] Laborer. Edited and approved by Dr. Charles Solares MD. [employer] Other 02-15-2022 Evaluation note* Encounter Date Diagnosis Assessment Notes Treatment Notes Treatment Clinical Notes May, Cigarette nicotine dependence without complication (ICD-10 - F17.210) [employer] Other 02-14-2022 Evaluation note* Encounter Date Diagnosis Assessment Notes Treatment Notes Treatment Clinical Notes May, Other spondylosis with radiculopathy, lumbar region (ICD-10 - M47.26) [employer] Other 02-01-2022 Evaluation note* Encounter Date Diagnosis [...] was refilled today. Saliva sample performed through [facility] today, will await confirmatory results. [employer] contract updated at this time. May, Other chronic pain (ICD-10 - G89.29) May, Other Above note writ ten by Sonya Dawson LPN, [employer]. Edited and approved by Dr. Charles Solares MD. [employer] Other 01-06-2022 Evaluation note* Encounter Date Diagnosis [...] Apr, Other chronic pain (ICD-10 - G89.29) 06 Booker, 2022 Other Above note writ ten by Km Cervantes CMA, [employer]. Edited and approved by Dr. Charles Solares MD. [employer] Other 12-02-2021 Evaluation note* Encounter Date Diagnosis [...] Above note written by Sonya Dawson LPN, [employer]. Edited and approved by Dr. Charles Solares MD. [employer] Other 11-08-2021 Evaluation note* Encounter Date Diagnosis [...] Patient voiced understanding agrees with this plan. [employer] Other 11-01-2021 Evaluation note* Encounter Date Diagnosis [...] note writ ten by Donita Henson CMA, [employer]orer. Edited and approved by Dr. Charles Solares MD. [employer] Other 10-28-2021 Evaluation note* Encounter Date Diagnosis [...] message to Dr. Solares passing this along. [employer] Other 10-04-2021 Evaluation note* Encounter Date Diagnosis [...] educated regarding the risks and benefits of manager terminal opioid use. He understands the associated risks with this medication and agrees that it provides reasonable benefit in regards to his pain control and level of function. Oxycodone Acetaminophen was refilled today. Jan, Other chronic pain (ICD-10 - G89.29) [facility] [employer] Other Evaluation noteNo InformationNortDelaware [facility] Other Evaluation noteNo assessment information available [facility] Work Phone: Evaluation note* Diagnosis Onset Date Resolution Status Osteoarthritis of carpometac arpal joint of left thumb acute Primary osteoarthritis, left hand acute BPH (benign prostatic hyperplasia) chronic Hemorrhoid chronic Other spondylosis with radiculopathy, lumbar region chronic Blood present in stool nonea [facility] Work Phone: Evaluation note* Diagnosis Onset Date Resolution Status BPH (benign prostatic hyperplasia) chronic Hemorrhoid chronic Other spondylosis with radiculopathy, lumbar region chronic Blood present in stool nonea ctive Other spondylosis with radiculopathy, lumbar region chronic Preoperative clearance nonea ctive [facility] Work Phone: Evaluation note* Diagnosis Onset Date Resolution Status BPH (benign prostatic hyperplasia) chronic 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 Erectile dysfunction due to diseases classified elsewhere chronic HTN (hypertension) chronic Other spondylosis with radiculopathy, lumbar region chronic Well adult noneactive [facility] Work Phone: History and physical note Author Nash Cardenas [facility] September 26, 2022 9:39am Note Date/Time September 26, 2022 9:39 am [facility] [address] [place] [address] Gastroenterology H&P Signed Patient: Neal Parker MR#: [id number] : 1980 Acct:[id number] Age/Sex: 41 / M Adm Date: 3 Loc: Room: Type: [facility] Attending Dr: Nash Cardenas MD Copies [...] signed by Nash Cardenas MD> 09/26/22 0939 [facility] Work Phone: Hisxmdr general Narrative - Reported* Type Description Date Medical History Hx spinal fusion Medical History Lumbar radiculopathy Medical History Trigger point Surgical History L5 S1 fusion 2014 Surgical History Left lower leg surgery (multipl e fractures) Surgical History foreign body excision right mid dle finger Hospitalization History pneumonia as [facility] Other Hisbhmt general Narrative - Reported* Type Description Date Medical History Hx spinal fusion Medical History Lumbar radiculopathy Medical History Trigger point Surgical History L5 S1 fusion 2014 Surgical History Left lower leg surgery (multipl e fractures) Surgical History foreign body excision right mid dle finger Surgical History lumbar facet nerve b lock injection - Dr. Saldivar in [place] 11/2022 Hospitalization History pneumonia as [facility] Other Hisdsad general Narrative - Reported* Type Description Date Medical History Hx spinal fusion Medical History Lumbar radiculopathy Medical History Trigger point Surgical History L5 S1 fusion 2014 Surgical History Left lower leg surgery (multipl e fractures) Surgical History foreign body excision right mid dle finger Surgical History lumbar facet nerve b lock injection - Dr. Saldivar in [place] 11/2022 Surgical History R side nerve ablation 01/2023 Hospitalization History pneumonia as [facility] Other Hospital Discharge instructions Additional Instructions DISCHARGE [...] NOT operate machinery such as power tools, [employer] mowers, snow blowers, sewing machines, etc. for [...] years. -Follow up with PCP. -Office number [phone].[facility] Work Phone: Hospital Discharge instructionsAmbulatory Orders* Disability Placard Time Frame: 01/16/24, Location: Determined By Patient [facility] Work Phone: Reason for visit NarrativePatient here at the request of Dr. Vuong for evaluation & treatment of abdominal pain, change in bowel habits, weight loss, rectal bleeding.[employer] Other Reason for visit NarrativeProcedure appt and DNR-A signFountaintown [facility] Other Summary Purpose Family History No Family [...] Reason for Referral Reason Dr. Villanueva to [facility] er surgical options, steroid injections not providing long lasting benefit Diagnosis 1 Primary osteoarthrit is of both first carpometacarpal joints (M18.0) Referral Organization [facility] Family Camdencristóbal luisa Tom Referring Provider First Name Maribeth Referring Provider Last Name Carolann Referring Provider Specialty Family Prac patito Referred Organization [facility] ped[facility] Referred Address [address] [place],[address] Referred Provider Specialty ORTHOPEDIC S URGEON Referral Priority Routine Reason * Waiting for appt CT and KUB normal, generalized pain of unclear etiology Diagnosis 1 Generalized abdomina l pain (R10.84) Referral Organization [facility] Family Nisha moran Tom Referring Provider First Name Maribeth Referring Provider Last Name Carolann Referring Provider Specialty Family Prac patito Referred Organization [facility] Gastroenterolo gy Referred Provider Dwayne Salas Referred Address [address] ,[place], [place],[address] Referred Provider Specialty Gastroentero logy Referral Priority [...] use of opioids (F11.90) Referral Organization [facility] Family Nisha moran Tom Referring Provider First Name Maribeth Referring Provider Last Name Carolann Referring Provider Specialty Family Prac patito Referred Organization [facility] Referred Address [address] [place] Referred Provider Specialty Pain Medicin e Referral Priority Routine General Notes Rebeca Vivar 11:08:53 AM >referral received and faxed Clinical Notes P- [phone]- Chief Complaint and Reason for Visit Chief [...] content) DATE CREATED AUTHOR 05/25/2018 Andrae Myers [facility] DATE CREATED AUTHOR AUTHOR'S ORGANIZ ATION 06/11/2018 [facility] DATE CREATED AUTHOR AUTHOR'S ORGANIZ ATION 09/15/2022 [facility] DATE CREATED AUTHOR AUTHOR'S ORGANIZ ATION 10/31/2023 [facility] DATE CREATED AUTHOR AUTHOR'S ORGANIZ ATION 04/06/2024 [facility] REASON FOR VISIT (unrecogniz ed section and content) 1 MOback pain getting worse, pain management not working4 WK RECHECKDISCUSS DISABILITY OPTIONSLab results1 MO1 MONTH RECHECKCHANTIX1 month Follow upscript requestpaperwork1 MONTH FOLLOW UPCHANTIX refill/discuss back concerns1 MONTHNo InformationNo InformationPROCEDURE NOTES1 year Follow up/ AWVAbdominal Pain/ incontinencenew medication.ReferralPain ManagementB/L thumb steroid inj./ sign DNR-AORDERS PER DR Casanovaated bpelevated BP at [place], no sxinjection L thumb1 year Follow upLosartan/HCTZsteroid [...] 2024 Team Status: Inactive Member Role Status Dates [...] BE BASED ON THE PRIMARY CLINICAL RECORDS. [employer] provides no warranty or guarantee of the accuracy or completeness of information in this document.
== END 2024-04-09 10:37 | disposition home or self-care (01) ==
LOC: EC 10:37
PROVIDERS: Visit Provider Orthopaedic Surgery Orthopaedic Surgery of the Spine
DX: M54.50 Low back pain, unspecified (principal); M43.27 Fusion of spine, lumbosacral region
CPT/HCPCS: 72110

== ENCOUNTER 2024-05-12 08:27 | Outpatient (OUT) | payer OTHER, SELFPAY ==
--- OUTSIDE RECORDS SUMMARY | 2024-05-12 08:45 | XMS_ITS | CCD ---
Author Organization [facility] Care Team Providers Care Licensed Nurse Practitioner Name Role Phone Lashay Li Admitting Unavailable Lashay Li Attending Unavailable RENE MORRELL Primary Care Unavailable PHI RENE Attending Unavaila Charles Cohen Unavailable Carolann, Maribeth Unavailable Carolann, Maribeth Unavailable Carolann, Maribeth Unavailable Carolann, DO Maribeth Williamson Primary Care Provider [phone] Carolann, DO Maribeth Williamson Attending Provider Igor [...] Consulting Unavailable MD Nash Cardenas Attending Provider [phone] Nash Cardenas Unavailable DO Maribeth Vuong Primary Care Provider MD Nisha Villanueva Attending Provider St Keri PLEITEZ, Diaz Mercer Attending UnavailDiaz Mckinney MD Admitting Unavailmary Rodgers MD, Homar Mayers Consulting Unavail able Maribeth Vuong DO Primary Care Qamar Obrien Consulting Unavailable St Keri PLEITEZ, Diaz Mercer Attending Unavailabl e Carolann LANDRY, Maribeth Higgins Primary Care Diaz Armenta MD Attending Unavailabl e Carolann LANDRY, Maribeth Higgins Primary Care Harmeet Vuong DO, Maribeth Williamson Primary Care Provider Nisha Villanueva MD Attending Provider Nisha Villanueva Admitting Unavailable Nisha Villanueva Attending Unavailable Maribeth Vuong Primary Care Unavailable Nisha Villanueva Admitting Unavailable Nisha Villanueva Attending Unavailable Maribeth Vuong Primary Care Unavailable Nisha Villanueva Attending Unavailable Nisha Villanueva Admitting Unavailable Maribeth Vuong Primary Care Unavailable Nisha Villanueva Admitting Unavailable Nisha Villanueva Attending Unavailable Maribeth Vuong Primary Care Unavailable Allergies Allergy Classification Reported Allergen(s) Allergy Type Date of Onset Reaction(s) Facility (20 sources) gabapentin; Translations: [gabapentin] Drug Allergy 3 dizziness, sleepy, Drowsy, Drowsy, dizziness, sleepy [facility] (1 source) gabapentin Drug Allergy [facility] Repository (16 sources) zonisamide; Translations: [zonisamide] Drug Allergy 3 diarrhea [facility] (1 source) gabapentin Drug Allergy 4 [facility] (1 source) zonisamide Drug Allergy 4 [facility] Medications Current Medications Medication Drug Class(es) Dates Sig (Normalized) Sig (Original) acetaminophen 500 mg oral tablet (20 sources) Start: 06-22-2023 take 2 tablets by mouth every six hours as needed for pain Acetaminophen 500 mg Tablet Active 1000 MG PO Q6H as needed for Pain September 25, 2022 11:00pm Start: 09-26-2022 take 1 tablet by elizabeth th every six hours as needed for pain Acetaminophen 500 mg Tablet Active 500 MG PO Q6H as needed for Pain September 25, 2022 11:00pm Start: 12-17-2016 End: 09-26-2022 take 2 tablets by mouth twice daily Acetaminophen 650 mg Tablet Extended Release Discontinued 2 TAB PO Twice daily December 16, 2016 11:00pm September 26, 2022 7:34am acetaminophen 325 mg / HYDROcodone bitartrate 5 mg oral tablet (20 sources) Opioid Agonist Start: 04-30-2024 take 1 tablet by mouth every four to six hours as needed for pain Hydrocodone-Acetaminophen 5-325 mg tablet Active 1 - 2 TAB PO EVERY 4-6 HOURS as needed for pain 50 7 April 30, 2024 Quantity: #50 (fifty) Diagnosis: postop Start: 04-02-2024 End: 04-02-2024 take 1 tablet by mouth every four to six hours as needed for pain Hydrocodone-Acetaminophen 5-325 mg table t Discontinued 1 - 2 TAB PO EVERY 4-6 HOURS as needed for pain 50 April 02, 2024 April 02, 2024 11:54am Quantity: fifty G89.18 - Other acute postprocedural pain M79.609 - Pain in unspecified limb 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, left hand Start: 04-02-2024 End: 04-02-2024 take 1 tablet by mouth every four to six hours as needed for pain Hydrocodone-Acetaminophen 5-325 mg table t Discontinued 1 - 2 TAB PO EVERY 4-6 HOURS as needed for pain 50 April 02, 2024 April 02, 2024 11:55am Quantity: fifty G89.18 - Other acute postprocedural pain M79.609 - Pain in unspecified limb 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, left hand Start: 03-18-2024 End: 04-30-2024 take 1 tablet by mouth every four to six hours as needed for pain Hydrocodone-Acetaminophen 5-325 mg table t Discontinued 1 - 2 TAB PO EVERY 4-6 HOURS as needed for pain 50 7 April 02, 2024 April 30, 2024 9:53am Quantity: fifty G89.18 - Other acute postprocedural pain M79.609 - Pain in unspecified limb 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, left hand Start: 12-17-2016 End: 09-26-2022 take 1 tablet by mouth twice daily as needed for pain Hydrocodone-Acetaminophen 5-325 mg table t Discontinued 1 TAB PO Twice daily as needed for Pain December 16, 2016 11:00pm September 26, 2022 7:34am Acetaminophen Extra Strength 500 MG (11 sources) take 1 tablet by mouth every six hours as needed Acetaminophen Extra Strength 500 MG 1 tablet as needed Orally every 6 hrs Active Albuterol Sulfate 90 mcg/actuation HFA aerosol inhaler (2 sources) Start: 04-05-20 Albuterol Sulfate 90 mcg/actuation HFA aerosol inhaler Active 1 INH INHALATION Every 6 hours as needed for shortness of breath or wheezing 6.7 April 05, 2024 12:00am calcium carbonate 1500 mg / cholecalciferol 0.01 mg oral tablet (7 sources) Vitamin D Start: 09-27-19 23 take 1 tablet by mouth once daily Calcium Carbonate-Vitamin D3 (Calcium 600 + D(3)) 600 mg-10 mcg (400 unit) Tablet Active 1 TAB PO Daily September 25, 2022 11:00pm Cane - (10 sources) Start: 05-21-19 22 Cane - 1 14 May, 2021 Active Cannabis - Medical (18 sources) Cannabis - Medic al Active cyclobenzaprine hydrochloride 10 mg oral tablet (20 sources) Muscle Relaxant Start: 09-27-19 23 take 1 tablet by mouth three times [...] daily as needed for 90 days Active dextromethorphan hydrobromide 15 mg / guaiFENesin 400 mg / pseudoephedrine hydrochloride 60 mg oral tablet (2 sources) alpha-Adrenergic Agonist, Uncompetitive R-mwyavm-Q-aspartate Receptor Antagonist, Sigma-1 Agonist Start: 04-05-2024 take 4 tablets by mouth every twenty-four hours as needed Pfdfowvqwbteoim-Qf-Cvgbnkungzr (Capmist Dm) 60-15-400 mg tablet Active 1 TAB PO Every 6 hours as needed for cold symptoms 24 08April 05, 2024 12:00am do not exceed 4 doses per 24 hrs diclofenac sodium 0.01 mg/mg topical gel (15 sources) Nonsteroidal Anti-inflammatory Drug Start: 03-18-2024 Diclofenac Sodium (Voltaren Arthritis Pain) 1 % gel Active 2 GM TOPICAL Four times daily as needed for pain March 18, 2024 12:00am Start: 06-03-2023 End: 03-18-2024 Diclofenac Sodium (Voltaren Arthritis Pain) 1 % gel Discontinued 2 GM TOPICAL Four times daily 100 June 03, 2023 12:00am March 18, 2024 7:39am Start: 06-03-2023 Diclofenac Sod ium (Voltaren Arthritis [...] Start: 09-26-2022 take 2 capsules by mouth twice daily as needed Diphenhydramine Hcl (Benadryl) 25 mg Capsule Active 50 MG PO Twice daily as needed for allergies September 25, 2022 11:00pm Start: 09-26-2022 take 2 capsules by m out once daily at bedtime as needed Diphenhydramine [...] Jun, Active take 1 capsule by mo ut every twenty-four hours Cymbalta 60 MG 1 capsule Orally Once a day for 90 days Active Handicap placards as directed (18 sources) Start: 2018 Handicap placards as directed as directed as directed as directed Dec, Active lactulose 667 mg/ml oral solution (3 sources) Osmotic Laxative Start: 07-15-2022 take 30 mL by mouth twice daily as needed Lactulose 20 GM/30ML 30 mL Orally bid prn for 30 days Jul, Active melatonin 10 mg oral capsule (2 sources) Start: 03-08-2024 take 1 capsule by mouth once daily at bedtime Melatonin 10 mg capsule Active 10 MG PO Daily at bedtime March 08, 2024 12:00am methocarbamol 500 mg oral tablet (4 sources) Muscle Relaxant Start: 05-08-2021 take 1 tablet by mouth twice daily as needed Methocarbamol 500 MG 1 tablet Orally twice daily as needed for 30 day(s) May, Active ondansetron 8 mg oral tablet (12 sources) Serotonin-3 Receptor Antagonist Start: 05-29-2023 take [...] Once a day Active polyethylene glycol 3350 258828 mg / potassium chloride 2970 mg / sodium bicarbonate 6740 mg / sodium chloride 5860 mg / sodium sulfate 38385 mg powder for oral solution (6 sources) [...] Feb, Active pregabalin 50 mg oral capsule (16 sources) Start: 07-21-2023 take 1 capsule by mouth twice daily Pregabalin 50 mg capsule Active 50 MG PO Twice daily July 20, 2023 11:00pm Start: 12-17-2016 End: 01-29-2019 take 2 capsules by mouth twice daily Pregabalin (Lyrica) 75 mg capsule Discontinued 2 CAP PO Twice daily December 16, 2016 11:00pm January 29, 2019 6:38am Saw Wann 1,000 mg capsule (2 sources) Start: 03-08-2024 take 1 capsule by mouth once daily at mealtime Saw Wann 1,000 mg capsule Active 86075 MG PO Daily March 08, 2024 12:00am give with food (meal/snack) sennosides, retirement 8.6 mg oral tablet (16 sources) Start: [...] a day for 30 day(s) May, Active Vitamin B Complex (Vitamins B Complex) capsule (2 sources) Start: 03-08-2024 take 1 capsule by mouth once daily Vitamin B Complex (Vitamins B Complex) capsule Active 1 CAP PO Daily March 08, 2024 12:00am Completed/Discontinued Medications Medication Drug Class(es) Dates Sig (Normalized) Sig (Original) acetaminophen 325 mg / oxyCODONE hydrochloride 5 [...] as needed for 7 days Active Cannabis (10 sources) Start: 01-21-2019 End: 09-26-2022 Cannabis Discontinued as nee ded for Pain January 20, 2019 11:00pm September 26, 2022 7:34am Start: 01-21-2019 End: 09-26-2022 Cannabis Discontinued Octobe r 2018 12:00am September 26, 2022 8:34am Start: 01-21-2019 Cannabis Activ e January 21, 2019 12:00am celecoxib 200 mg oral capsule (10 sources) Nonsteroidal Anti-inflammatory Drug Start: 12-17-2016 End: 09-26-2022 take 1 capsule by mouth twice daily Celecoxib 200 mg capsule Discontinued 1 CAP PO Twice daily December 16, 2016 11:00pm September 26, 2022 7:34am doxycycline hyclate 100 mg oral tablet (2 sources) Tetracycline-class Drug Start: 03-18-2024 End: 05-05-2024 take 1 tablet by mouth twice daily Doxycycline Hyclate 100 mg tablet Discontinued 100 MG PO Twice daily 01 09March 18, 2024 12:00am May 05, 2024 8:43am hydroCHLOROthiazide 12.5 mg / losartan potassium 50 mg oral tablet (17 sources) Thiazide Diuretic, Angiotensin 2 Receptor Avery Start: 07-17-2023 End: 03-08-2024 take 1 tablet by mouth once daily Losartan-Hydroch lorothiazide 50-12.5 mg tablet Discontinued 1 TAB PO Daily 90 90 January 16, 2024 7:22am March 08, 2024 3:55pm Start: 12-12-2022 take 1 tablet by elizabeth th every twenty-four hours Losartan Potassium-HCTZ 50-12.5 MG 1 tablet Orally Once a day for 90 days Dec, Active Start: 12-12-2022 take 1 tablet by elizabeth th once daily Losartan Potassium-HCTZ 50-12.5 MG 1 tablet Orally Once a day for 90 days Dec, Active lidocaine 0.04 mg/mg medicated patch (6 sources) Antiarrhythmic, Amide Local Anesthetic Start: 06-03-2023 End: 07-21-2023 apply 1 dose topically twice daily Lidocaine 4 % adhesive patch,medicated Discontinued 1 PATCH TOPICAL Twice daily June 03, 2023 12:00am July 21, 2023 7:03am Magnesium (7 sources) Start: 09-26-2022 End: 03-08-2024 take 1 tablet by mouth once daily Magnesium 100 mg Tablet Discontinued 100 MG PO Daily September 25, 2022 11:00pm March 08, 2024 3:51pm Start: 09-26-2022 take 1 tablet by elizabeth th once daily Magnesium 100 mg Tablet Active 100 MG PO Daily September 25, 2022 11:00pm Start: 09-26-2022 take 100 mg by mouth once mabel y Magnesium Active 100 MG PO Daily September 26, 2022 12:00am Medrol Dose Pack as directed (12 sources) Start: 10-05-2020 Medrol Dose Pa ck as directed as directed orally as directed Oct, Not-Taking Start: 10-05-2020 Medrol Dose Pa ck as directed as directed orally as directed Oct, Active meloxicam 15 mg oral tablet (20 sources) Nonsteroidal Anti-inflammatory Drug Start: 09-26-2022 End: 03-08-2024 take 1 tablet by mouth once daily Meloxicam 15 mg tablet Discontinued 15 MG PO Daily September 25, 2022 11:00pm March 08, 2024 3:51pm methylPREDNISolone acetate 80 mg/ml injectable suspension (20 sources) Corticosteroid Start: 09-11-2022 DEPO-Medrol Dec, 40 mg Start: 03-25-2019 Depo-Medrol 80 mg Mar, 40 mg niacin 500 mg oral tablet (7 sources) Nicotinic Acid Start: 09-26-2022 End: 09-15-2023 take 1 tablet by mouth once daily Niacin 500 mg Tablet Discontinued 500 MG PO Daily September 25, 2022 11:00pm September 15, 2023 9:25am 12 hr orphenadrine citrate 100 mg extended release oral tablet (10 sources) Muscle Relaxant Start: 01-21-2019 End: 09-26-2022 take 1 tablet by mouth twice daily Orphenadrine Citrate 100 mg tablet extended release Discontinued 100 MG PO Twice daily January 20, 2019 11:00pm September 26, 2022 7:35am sildenafil 50 mg oral tablet (17 sources) Phosphodiesterase 5 Inhibitor Start: 07-17-2023 End: [...] Jan, Active tiZANidine 4 mg oral tablet (10 sources) Central alpha-2 Adrenergic Agonist Start: 07-01-2017 [...] or arthrodesis] Onset: 09-30-2023 Episodic Essential hypertension (14 sources) Essential hypertension; Translations: [Essential (primary) hypertension] Chronic Gastrointestinal hemorrhage (3 sources) Hemorrhage of anus and rectum; Translations: [Melena] Episodic Genitourinary symptoms and ill-defined conditions (1 source) Unspecified urinary incontinence; Translations: [UNSPECIFIED URINARY INCONTINENCE] Onset: 06-29-2022 Chronic Genitourinary symptoms and ill-defined conditions (1 source) Unspecified abnormal findings in urine Episodic Hemorrhoids (8 sources) Hemorrhoids; Translations: [Unspecified hemorrhoids] 07-21-2023 Episodic Hyperplasia of prostate (10 sources) Benign prostatic hyperplasia; Translations: [Benign prostatic hyperplasia without lower urinary tract symptoms] 07-21-2023 Chronic Osteoarthritis (20 sources) Localized, primary osteoarthritis of the wrist; Translations: [Primary osteoarthritis, right wrist] Onset: 03-18-2024 Chronic Other aftercare (3 sources) Encounter for therapeutic drug level monitoring Episodic Other aftercare (1 source) Other residential (current) drug therapy; Translations: [[facility] CURRENT DRUG THERAPY] Onset: 07-17-2022 Episodic Other [...] bowel habit Episodic Other male genital disorders (7 sources) Secondary erectile dysfunction; Translations: [Erectile dysfunction [...] Onset: 12-19-2021 Chronic Other nervous system disorders (2 sources) Pain in limb; Translations: [Other acute postprocedural pain] 03-18-2024 Episodic Other nervous system disorders (1 source) Other [...] screening for malignant neoplasm of prostate Episodic Other upper respiratory infections (2 sources) Acute upper respiratory infection, unspecified; Translations: [Acute upper respiratory infections of unspecified site] 04-05-2024 Episodic Residual codes; unclassified (2 sources) Postprocedural state finding; Translations: [Other specified postprocedural states] 04-05-2024 Episodic Residual codes; unclassified (5 sources) Other specified postprocedural states; Translations: [Other postprocedural status] Onset: 05-05-2024 04-06-2024 Episodic Spondylosis; intervertebral disc disorders; other back [...] cigarettes, uncomplicated] Onset: 05-22-2021 Resolved: 06-22-2021 Chronic Comment on above: previous quit 2 yrs ago Substance-related disorders (20 sources) Continuous opioid dependence; [...] Test Name Value Interpretation Reference Range Facility X-ray reportOrdered By: Young Greer on 05-05-2024 Study report [facility] [place] [facility] [place] [address] XRay Report Signed Patient: Neal Parker MR#: [id number] : 1980 Acct:[id number] Age/Sex: 43 / M ADM Date: 5 Loc: [facility] [place] Room: Type: REG CLI Attending Dr: Nisha Villanueva MD Copies to: Nisha Villanueva MD~ Ordering Provider: Nisha Villanueva MD Date of Service: 05/05/24 XR/XR hand LT min 3V*: M18.12 - Unilateral primary osteoarthritis of first carpo... LEFT HAND - 4 views REASON FOR EXAM: Follow-up thumb fusion COMPARISON: Intra-Op series 03/18/2024 FINDINGS: CMC fusion hardware without hardware complication. There appears be underlying bony fusion. No acute bony process. Cystic changes involving the lunate and scaphoid bones. XR/XR hand LT min 3V* IMPRESSION: NO HARDWARE COMPLICATION. Impression dictated by: Sonny Greer Jr., D.O.05/05/2024 10:05 AM Dictation Location: [place] [address] Transcribed By: [facility] 05/05/24 1005 Dictated By: Sonny Greer Jr, DO 05/05/24 1004 Signed By: 05/05/24 1005 [facility] XR hand LT min 3V*on 025 XR hand LT min 3V* [facility] [place] [facility] [place] [address] XRay Report Signed Patient: Neal Parker MR#: [id number] : 1980 Acct:[id number] Age/Sex: 43 / M ADM Date: 05/05/24 Loc: [facility] – [place] Room: Type: REG CLI Attending Dr: Nisha Villanueva MD Copies to: Nisha Villanueva MD Ordering Provider: Nisha Villanueva MD Date of Service: 05/05/24 XR/XR hand LT min 3V*: M18.12 - Unilateral primary osteoarthritis of first carpo... LEFT HAND - 4 views REASON FOR EXAM: Follow-up thumb fusion COMPARISON: Intra-Op series 03/18/2024 FINDINGS: CMC fusion hardware without hardware complication. There appears be underlying bony fusion. No acute bony process. Cystic changes involving the lunate and scaphoid bones. XR/XR hand LT min 3V* IMPRESSION: NO HARDWARE COMPLICATION. Impression dictated by: Sonny Greer Jr., D.O.05/05/2024 10:05 AM Dictation Location: [place] [address] Transcribed By: [facility] 05/05/24 1005 Dictated By: Sonny Greer Jr, DO 05/05/24 100 Signed By: 05/05/24 100 Normal [facility] Influenza A virus antibody t iter by complement fixationon 04-05-2024 FLUAV Ab CF (S) [Titer] Influenza A viru s antibody titer by complement fixation [facility] Influenza virus B Ab [Titer] in Serum by Complement fixationon 04-05-2024 FLUBV Ab CF (S) [Titer] Influenza virus B Ab [Titer] in Serum by Complement fixation [facility] Respiratory specimen 2019 no estella coronavirus RNA detection by probe and target amplifion 04-05-2024 SARS-CoV-2 (COVID-19) RNA BENITA+probe Ql (Resp) Respiratory specimen 2019 novel coronavirus RNA detection by probe and target amplifi [facility] Amphetamine Screen Ql (U)Ord ered By: Augustin Cordon on 03-18-2024 Amphetamines Ql (U) Amphetamines screen Negativ e [facility] Barbiturates [Presence] in U rine by Screen methodOrdered By: Augustin Cordon on 03-18-2024 Barbiturates Screen Ql (U) Barbiturates [Presence] in Urine by Screen method Negative [facility] Benzodiazepines Screen Ql (U )Ordered By: Augustin Cordon on 03-18-2024 Benzodiazepines Ql (U) Benzodiazepines [Presence] in Urine by Screen method Negative [facility] Benzoylecgonine [Presence] i n Urine by Screen methodOrdered By: Augustin Cordon on 03-18-2024 Benzoylecgonine Screen Ql (U) Benzoylecgonine [Presence] in Urine by Screen method Negative [facility] Cannabinoids [Presence] in U rine by Screen methodOrdered By: Augustin Cordon on 03-18-2024 Cannabinoids Screen Ql (U) Cannabinoids [Presence] in Urine by Screen method High Negative [facility] Comment on above: These are unconfirme d results and should not be used for legal purposes. Drug Cut-Off Concentration: AMPH 1000 ng/mL JANELL 200 ng/mL MAGO 200 ng/mL COCM 300 ng/mL OP 300 ng/mL PCP 25 ng/mL THC 20 ng/mL Drug Screen,Urineon 03-18-20 Amphetamine Screen,Urine Negative Normal Negative [facility] Comment on above: Performed By: #### U RDS #### [address] Barbiturate Screen,Urine Negative Normal Negative [facility] Comment on above: Performed By: #### U RDS #### [place] [address] [place] Benzodiazepines Screen,Urine Negative Normal Negative [facility] Comment on above: Performed By: #### U RDS #### [address] Cannabinoid Screen,Urine Positive High Negative [facility] Comment on above: Result Comment: Thes e are unconfirmed results and should not be used for legal purposes. Drug Cut-Off Concentration: AMPH 1000 ng/mL JANELL 200 ng/mL MAGO 200 ng/mL COCM 300 ng/mL OP 300 ng/mL PCP 25 ng/mL THC 20 ng/mL PERFORMED BY: [place] [address] PATHOLOGIST [employer] VIOLETTA HELM M.D. Performed By: #### U RDS #### [address] Cocaine Screen,Urine Negative Normal Negative [facility] Comment on above: Performed By: #### U RDS #### [place] [address] [place] Opiate Screen,Urine Negative Normal Negative [facility] Comment on above: Performed By: #### U RDS #### [facility] [address] Phencyclidine Screen,Urine Negative Normal Negative [facility] Comment on above: Performed By: #### U RDS #### [facility] [address] Opiates [Presence] in Urine by Screen methodOrdered By: Augustin Cordon on 03-18-2024 Opiates Screen Ql (U) Opiates [Presence] in Urine by Screen method Negative [facility] Phencyclidine Screen Ql (U)O rdered By: Augustin Cordon on 03-18-2024 Phencyclidine Ql (U) Phencyclidine [Presence] in Urine by Screen method Negative [facility] XR finger LT thumbon 024 XR finger LT thumb [facility] [place] [address] XRay Report Signed Patient: Neal Parker MR#: [id number] : 1980 Acct:[id number] Age/Sex: 43 / M ADM Date: 03/18/24 Loc: [place] Room: Type: [facility] Attending Dr: Nisha Villanueva MD Copies to: Nisha Villanueva MD Ordering Provider: Nisha Villanueva MD Date of Service: 03/18/24 XR/XR finger LT thumb: SX Intraoperative study. Reason for exam: Left thumb fusion Findings: 19 images were obtained intraoperatively. Hardware was placed Cumulative Air Kerma in mGy: 0.413 mGy XR/XR finger LT thumb Impression: Intraoperative study. Impression dictated by: Sonny Greer Jr., DIbrahimaOIbrahima03/18/2024 3:41 PM Dictation Location: [place] [address] Transcribed By: [facility] 03/18/24 1541 Dictated By: Sonny Greer Jr, DO 03/18/24 1540 Signed By: 03/18/24 1541 Normal [facility] Alanine aminotransferase [En zymatic activity/volume] in Serum or PlasmaOrdered By: Nisha Villanueva on 03-08-2024 ALT [Catalytic activity/Vol] Alanine aminotransferase [Enzymatic activity/volume] in Serum or Plasma 7-52 [facility] Albumin [Mass/volume] in Ser um or Plasma by Bromocresol green (BCG) dye binding methoOrdered By: Nisha Villanueva on 03-08-2024 Albumin BCG dye [Mass/Vol] Albumin [Mass/volume] in Serum or Plasma by Bromocresol green (BCG) dye binding metho 3.5-5.7 [facility] Alkaline phosphatase [Enzyma tic activity/volume] in Serum or PlasmaOrdered By: Nisha Villanueva on 03-08-2024 ALP [Catalytic activity/Vol] Alkaline phosphatase [Enzymatic activity/volume] in Serum or Plasma 34-104 [facility] Aspartate aminotransferase [ Enzymatic activity/volume] in Serum or PlasmaOrdered By: Nisha Villanueva on 03-08-2024 AST [Catalytic activity/Vol] Aspartate aminotransferase [Enzymatic activity/volume] in Serum or Plasma 13-39 [facility] Basophils Auto (Bld) [#/Vol] Ordered By: Nisha Villanueva on 03-08-2024 Basophils (Bld) [#/Vol] Automated basoph il count 0.0-0.2 [facility] Basophils/100 WBC Auto (Bld) Ordered By: Nisha Villanueva on 03-08-2024 Basophils/100 WBC (Bld) Automated basophil % . [facility] Bilirubin.total [Mass/volume ] in Serum or PlasmaOrdered By: Nisha Villanueva on 03-08-2024 Bilirubin [Mass/Vol] Bilirubin.total [Mass/volume] in Serum or Plasma 0.3-1.0 [facility] CMP with reflex to A1Con Albumin [Mass/Vol] 4.3 g/dL Normal 3.5-5.7 [facility] Comment on above: Performed By: #### C BC, CMP wRFX A1C #### [facility] [address] Albumin/Globulin [Mass ratio] 1.5 {ratio} Normal [facility] Comment on above: Performed By: #### C BC, CMP wRFX A1C #### [facility] [address] [place] [address] [place] ALP [Catalytic activity/Vol] 40 U/L Normal 34-104 [facility] Comment on above: Result Comment: PERF ORMED BY: [place] [address] PATHOLOGIST [employer] VIOLETTA HELM M.D. Performed By: #### C BC, CMP wRFX A1C #### [facility] [address] [place] [address] [place] ALT [Catalytic activity/Vol] 24 U/L Normal 7-52 [facility] Comment on above: Performed By: #### C BC, CMP wRFX A1C #### [facility] [address] [place] [address] [place] Anion gap [Moles/Vol] 9.9 mmol/L Normal 6.0-15.0 [facility] Comment on above: Performed By: #### C BC, CMP wRFX A1C #### [place] [address] [place] AST [Catalytic activity/Vol] 19 U/L Normal 13-39 [facility] Comment on above: Performed By: #### C BC, CMP wRFX A1C #### [place] [address] [place] Bilirubin [Mass/Vol] 0.4 mg/dL Normal 0.3-1.0 [facility] Comment on above: Performed By: #### C BC, CMP wRFX A1C #### [facility] [address] [place] [address] [place] Calcium [Mass/Vol] 9.9 mg/dL Normal 8.6-10.3 [facility] Comment on above: Performed By: #### C BC, CMP wRFX A1C #### [facility] [address] [place] [address] [place] Chloride [Moles/Vol] 103 mmol/L Normal 98-107 [facility] Comment on above: Performed By: #### C BC, CMP wRFX A1C #### [facility] [address] [place] [id number] [place] CO2 [Moles/Vol] 32.5 mmol/L High 21.0-31.0 [facility] Comment on above: Performed By: #### C BC, CMP wRFX A1C #### [address] Creatinine [Mass/Vol] 0.81 mg/dL Normal 0.70-1.30 [facility] Comment on above: Performed By: #### C BC, CMP wRFX A1C #### [place] [address] [place] GFR/1.73 sq M.predicted MDRD (S/P/Bld) [Vol rate/Area] mL/min/{1.73_m2} Normal [facility] Comment on above: Performed By: #### C BC, CMP wRFX A1C #### [address] Globulin (S) [Mass/Vol] 2.9 g/dL Normal [facility] Comment on above: Performed By: #### C BC, CMP wRFX A1C #### [address] Glucose [Mass/Vol] 90 mg/dL Normal 70-100 [facility] Comment on above: Performed By: #### C BC, CMP wRFX A1C #### [address] Potassium [Moles/Vol] 4.4 mmol/L Normal 3.5-5.1 [facility] Comment on above: Performed By: #### C BC, CMP wRFX A1C #### [place] [address] [place] Protein [Mass/Vol] 7.2 g/dL Normal 6.4-8.9 [facility] Comment on above: Performed By: #### C BC, CMP wRFX A1C #### [address] Sodium [Moles/Vol] 141 mmol/L Normal 136-145 [facility] Comment on above: Performed By: #### C BC, CMP wRFX A1C #### [address] [place] [address] [place] Urea nitrogen [Mass/Vol] 9 mg/dL Normal 7-25 [facility] Comment on above: Performed By: #### C BC, CMP wRFX A1C #### [facility] [address] Calcium [Mass/volume] in Ser um or PlasmaOrdered By: Nisha Villanueva on 03-08-2024 Calcium [Mass/Vol] Calcium [Mass/volume ] in Serum or Plasma 8.6-10.3 [facility] Carbon dioxide, total [Moles /volume] in Serum or PlasmaOrdered By: Nisha Villanueva on 03-08-2024 CO2 [Moles/Vol] Carbon dioxide, tota l [Moles/volume] in Serum or Plasma High 21.0-31.0 [facility] Chloride [Moles/volume] in S flash or PlasmaOrdered By: Nisha Villanueva on 03-08-2024 Chloride [Moles/Vol] Chloride [Moles/volume] in Serum or Plasma 98-107 [facility] Complete Blood Count Auto Di ffon 03-08-2024 Basophils (Bld) [#/Vol] 0.0 10*3/uL Normal 0.0-0.2 [facility] Comment on above: Result Comment: PERF ORMED BY: [place] [address] PATHOLOGIST [employer] VIOLETTA HELM M.D. Performed By: #### C BC, CMP wRFX A1C #### [place] [address] [place] Basophils/100 WBC (Bld) 0.5 % Normal . [facility] Comment on above: Performed By: #### C BC, CMP wRFX A1C #### [facility] [address] [place] [address] [place] Eosinophils (Bld) [#/Vol] 0.3 10*3/uL Normal 0.0-0.45 [facility] Comment on above: Performed By: #### C BC, CMP wRFX A1C #### [place] [address] Eosinophils/100 WBC (Bld) 4.0 % Normal . [facility] Comment on above: Performed By: #### C BC, CMP wRFX A1C #### [address] Erythrocyte distribution width (RBC) [Ratio] 14.4 % Normal 12.0-14.8 [facility] Comment on above: Performed By: #### C BC, CMP wRFX A1C #### [address] Hematocrit (Bld) [Volume fraction] 44.4 % Normal 38.8-50.0 [facility] Comment on above: Performed By: #### C BC, CMP wRFX A1C #### [address] Hemoglobin (Bld) [Mass/Vol] 14.8 g/dL Normal 13.0-17.0 [facility] Comment on above: Performed By: #### C BC, CMP wRFX A1C #### [address] Lymphocytes (Bld) [#/Vol] 2.4 10*3/uL Normal 1.00-4.8 [facility] Comment on above: Performed By: #### C BC, CMP wRFX A1C #### [address] Lymphocytes/100 WBC (Bld) 35.2 % Normal . [facility] Comment on above: Performed By: #### C BC, CMP wRFX A1C #### [address] MCH (RBC) [Entitic mass] 30.5 pg Normal 27.5-35.2 [facility] Comment on above: Performed By: #### C BC, CMP wRFX A1C #### [address] MCV (RBC) [Entitic vol] 91.5 fL Normal 83.5-101 [facility] Comment on above: Performed By: #### C BC, CMP wRFX A1C #### [facility] [address] Mean Corpuscular HGB Conc 33.4 g/dL Normal 32.5-35.6 [facility] Comment on above: Performed By: #### C BC, CMP wRFX A1C #### [address] Monocytes (Bld) [#/Vol] 0.4 10*3/uL Normal 0.0-0.8 [facility] Comment on above: Performed By: #### C BC, CMP wRFX A1C #### [place] [address] [place] Monocytes/100 WBC (Bld) 5.9 % Normal . [facility] Comment on above: Performed By: #### C BC, CMP wRFX A1C #### [place] [address] [place] Neutrophils (Bld) [#/Vol] 3.8 10*3/uL Normal 1.8-7.7 [facility] Comment on above: Performed By: #### C BC, CMP wRFX A1C #### [place] [address] [place] Neutrophils/100 WBC (Bld) 54.4 % Normal . [facility] Comment on above: Performed By: #### C BC, CMP wRFX A1C #### [place] [address] [place] NRBC% 0.1 /100{WBC} Normal 0-0.5 [facility] Comment on above: Performed By: #### C BC, CMP wRFX A1C #### [place] [address] [place] Platelet mean volume (Bld) [Entitic vol] 11.2 fL High 6.6-10.[address] [facility] Comment on above: Performed By: #### C BC, CMP wRFX A1C #### [place] [address] [place] Platelets (Bld) [#/Vol] 204 10*3/uL Normal 150-450 [facility] Comment on above: Performed By: #### C BC, CMP wRFX A1C #### [facility] [address] RBC (Bld) [#/Vol] 4.86 10*6/uL Normal 3.90-5.60 [facility] Comment on above: Performed By: #### C BC, CMP wRFX A1C #### [facility] [address] WBC (Bld) [#/Vol] 7.0 10*3/uL Normal 4.1-10.5 [facility] Comment on above: Performed By: #### C BC, CMP wRFX A1C #### [address] Creatinine [Mass/volume] in Serum or PlasmaOrdered By: Nisha Villanueva on 03-08-2024 Creatinine [Mass/Vol] Creatinine [Mass/volume] in Serum or Plasma 0.70-1.30 [facility] ECG 12 lead ECGon 03-08-2024 ECG 12 lead ECG [facility] Main [place] [address] [place] [address] Electrocardiograph Report Signed Patient: Neal Parker MR#: [id number] : 1980 Acct:[id number] Age/Sex: 43 / M ADM Date: 03/08/24 Loc: Room: Type: [facility] Attending Dr: Nisha Villanueva MD Ordering Provider: [...] previous ECGs available Confirmed by Shakeel Guerra ([id number]) on 03/08/2024 5:31:45 PM Referred By: Electronically Signed By: Shakeel Guerra Transcribed By: NINO Signed By Shakeel Guerra MD 03/08/24 1731 Normal [facility] Eosinophils Auto (Bld) [#/Vo l]Ordered By: Nisha Villanueva on 03-08-2024 Eosinophils (Bld) [#/Vol] Automated eosinophil count 0.0-0.45 [facility] Eosinophils/100 WBC Auto (Bl d)Ordered By: Nisha Villanueva on 03-08-2024 Eosinophils/100 WBC (Bld) Automated eosinophil % . [facility] Erythrocyte distribution wid th Auto (RBC) [Ratio]Ordered By: Nisha Villanueva on 03-08-2024 Erythrocyte distribution width (RBC) [Ratio] Erythrocyte distribution width [Ratio] by Automated count 12.0-14.8 [facility] Globulin Calc (S) [Mass/Vol] Ordered By: Nisha Villanueva on 03-08-2024 Globulin (S) [Mass/Vol] Serum globulin measurement by calculation (mass/volume) [facility] Glucose [Mass/volume] in Ser um or PlasmaOrdered By: Nisha Villanueva on 03-08-2024 Glucose [Mass/Vol] Glucose [Mass/volume ] in Serum or Plasma 70-100 [facility] Hematocrit Auto (Bld) [Volum e fraction]Ordered By: Nisha Villanueva on 03-08-2024 Hematocrit (Bld) [Volume fraction] Hematocrit [Volume Fraction] of Blood by Automated count 38.8-50.0 [facility] Hemoglobin [Mass/volume] in BloodOrdered By: Nisha Villanueva on 03-08-2024 Hemoglobin (Bld) [Mass/Vol] Hemoglobin [Mass/volume] in Blood 13.0-17.0 [facility] Leukocytes [#/volume] correc gris for nucleated erythrocytes in Blood by Automated counOrdered By: Nisha Villanueva on 03-08-2024 WBC corrected for nucl RBC Auto (Bld) [#/Vol] Leukocytes [#/volume] corrected for nucleated erythrocytes in Blood by Automated coun 4.1-10.5 [facility] Lymphocytes Auto (Bld) [#/Vo l]Ordered By: Nisha Villanueva on 03-08-2024 Lymphocytes (Bld) [#/Vol] Lymphocytes [#/volume] in Blood by Automated count 1.00-4.8 [facility] Lymphocytes/100 WBC Auto (Bl d)Ordered By: Nisha Villanueva on 03-08-2024 Lymphocytes/100 WBC (Bld) Lymphocytes/100 leukocytes in Blood by Automated count . [facility] MCH Auto (RBC) [Entitic mass ]Ordered By: Nisha Villanueva on 03-08-2024 MCH (RBC) [Entitic mass] MCH [Entitic mass] by Automated count 27.5-35.2 [facility] MCHC Auto (RBC) [Mass/Vol]Or dered By: Nisha Villanueva on 03-08-2024 MCHC (RBC) [Mass/Vol] MCHC [Mass/volume] by Automated count 32.5-35.6 [facility] MCV Auto (RBC) [Entitic vol] Ordered By: Nisha Villanueva on 03-08-2024 MCV (RBC) [Entitic vol] MCV [Entitic vol ume] by Automated count 83.5-101 [facility] Monocytes Auto (Bld) [#/Vol] Ordered By: Nisha Villanueva on 03-08-2024 Monocytes (Bld) [#/Vol] Automated blood monocyte count 0.0-0.8 [facility] Monocytes/100 WBC Auto (Bld) Ordered By: Nisha Villanueva on 03-08-2024 Monocytes/100 WBC (Bld) Automated monocyte % . [facility] Neutrophils Auto (Bld) [#/Vo l]Ordered By: Nisha Villanueva on 03-08-2024 Neutrophils (Bld) [#/Vol] Neutrophils [#/volume] in Blood by Automated count 1.8-7.7 [facility] Neutrophils/100 WBC Auto (Bl d)Ordered By: Nisha Villanueva on 03-08-2024 Neutrophils/100 WBC (Bld) Automated neutrophil % . [facility] No Panel InformationOrdered By: Nisha Villanueva on 03-08-2024 Estimated GFR (CKD-EPI) > 60.0 mL/Min [facility] Creatinine Clearance (Chem N/A [facility] Nucleated erythrocytes [Pres ence] in Blood by Automated countOrdered By: Nisha Villanueva on 03-08-2024 Nucleated RBC Auto Ql (Bld) Nucleated erythrocytes [Presence] in Blood by Automated count 0-0.5 [facility] Platelet mean volume Auto (B ld) [Entitic vol]Ordered By: Nisha Villanueva on 03-08-2024 Platelet mean volume (Bld) [Entitic vol] Platelet mean volume [Entitic volume] in Blood by Automated count High 6.6-10.1 [facility] Platelets Auto (Bld) [#/Vol] Ordered By: Nisha Villanueva on 03-08-2024 Platelets (Bld) [#/Vol] Platelets [#/vol ume] in Blood by Automated count 150-450 [facility] Potassium [Moles/volume] in Serum or PlasmaOrdered By: Nisha Villanueva on 03-08-2024 Potassium [Moles/Vol] Potassium [Moles/volume] in Serum or Plasma 3.5-5.1 [facility] Protein [Mass/volume] in Ser um or PlasmaOrdered By: Nisha Villanueva on 03-08-2024 Protein [Mass/Vol] Protein [Mass/volume ] in Serum or Plasma 6.4-8.9 [facility] RBC Auto (Bld) [#/Vol]Ordere d By: Nisha Villanuvea on 03-08-2024 RBC (Bld) [#/Vol] Erythrocytes [#/volume] in Blood by Automated count 3.90-5.60 [facility] Serum or plasma albumin/glob ulin mass ratioOrdered By: Nisha Villanueva 03-08-2024 Albumin/Globulin [Mass ratio] Serum or plasma albumin/globulin mass ratio [facility] Serum or plasma anion gap de terminationOrdered By: Nisha Villanueva on 03-08-2024 Anion gap [Moles/Vol] Serum or plasma an ion gap determination 6.0-15.0 [facility] Sodium [Moles/volume] in Ser um or PlasmaOrdered By: Nisha Villanueva 03-08-2024 Sodium [Moles/Vol] Sodium [Moles/volume ] in Serum or Plasma 136-145 [facility] Urea nitrogen [Mass/volume] in Serum or PlasmaOrdered By: Nisha Villanueva on 03-08-2024 Urea nitrogen [Mass/Vol] Urea nitrogen [Mass/volume] in Serum or Plasma 10-29 [facility] WBC Auto (Bld) [#/Vol]Ordere d By: Nisha Villanueva on 03-08-2024 WBC (Bld) [#/Vol] Leukocytes [#/volume ] in Blood by Automated count 4.1-10.5 [facility] Cholesterol in LDL Calc [Mas s/Vol]on 01-16-2024 Cholesterol in LDL [Mass/Vol] Cholesterol in LDL [Mass/volume] in Serum or Plasma by calculation [facility] Comment on above: <100 mg/dl [id number] 0-129 mg/dl NEAR OR ABOVE [id number] mg/dl BORDERLINE [id number] mg/dl HIGH>190 mg/dl VERY HIGH Cholesterol in VLDL Calc [Ma ss/Vol]on 01-16-2024 Cholesterol in VLDL [Mass/Vol] Cholesterol in VLDL [Mass/volume] in Serum or Plasma by calculation [facility] - Chemistry and C hemistry - challengeon 01-16-2024 Cholesterol [Mass/Vol] 229 mg/dL High <=200 Fi [facility] Cholesterol in HDL [Mass/Vol] 49 mg/dL 40-60 [facility] Comment on above: > or =60 mg/dl - LOW CARDIOVASCULAR RISK<40 mg/dl - HIGH CARDIOVASCULAR RISK Triglyceride [Mass/Vol] 105 mg/dL <=150 F [facility] No Panel Informationon 01-15 Prostate Specific Antigen Screen 0.88 ng/mL <=4.00 [facility] Serum or plasma total choles terol/high density lipoprotein (HDL) cholesterol mass maci 01-16-2024 Cholesterol.total/Patti sterol in HDL [Mass ratio] Serum or plasma total cholesterol/high density lipoprotein (HDL) cholesterol mass rat [facility] Comment on above: 3.3 - 4.4 LOW RISK4. 4 - 7.1 AVERAGE RISK7.1 - 11.0 MODERATE RISK>11.0 HIGH RISK .eGFRon 10-02-2023 GFR/1.73 sq M.predicted MDRD (S/P/Bld) [Vol rate/Area] mL/min/{1.73_m2} Normal >=60 [facility] Comment on above: Result Comment: [facility] Laboratories have implemented the eGFR calculation [...] Age = years Performed By: #### C [id number] #### [address] [address] Basic Metabolic Profileon Anion gap [Moles/Vol] 5 mmol/L Normal 4-12 [facility] Comment on above: Performed By: #### C [id number] #### [address] [address] Calcium [Mass/Vol] 8.2 mg/dL Low 8.5-10.3 [facility] Comment on above: Performed By: #### C [id number] #### [address] [address] Chloride [Moles/Vol] 106 mmol/L Normal 98-110 [facility] Comment on above: Performed By: #### C [id number] #### [address] [address] CO2 [Moles/Vol] 27 mmol/L Normal 22-32 [facility] Comment on above: Performed By: #### C [id number] #### [address] [address] Creatinine [Mass/Vol] 0.75 mg/dL Normal 0.61-1.24 [facility] Comment on above: Performed By: #### C [id number] #### [address] [address] Glucose [Mass/Vol] 88 mg/dL Normal 70-99 [facility] Comment on above: Performed By: #### C [id number] #### [address] [address] Potassium [Moles/Vol] 3.9 mmol/L Normal 3.4-4.8 [facility] Comment on above: Performed By: #### C [id number] #### [address] [address] Sodium [Moles/Vol] 138 mmol/L Normal 133-142 [facility] Comment on above: Performed By: #### C [id number] #### [address] [address] Urea nitrogen [Mass/Vol] 13 mg/dL Normal 8-26 [facility] Comment on above: Performed By: #### C [id number] #### [address] [address] Urea nitrogen/Creatinine [Mass ratio] 17.3 mg/mg Normal 10.0-20.0 [facility] Comment on above: Performed By: #### C [id number] #### [address] [address] CBC w/ Diffon 10-02-2023 Erythrocyte distribution width (RBC) [Ratio] 14.4 % Normal 11.6-14.8 [facility] Comment on above: Performed By: #### E GFR #### [address] [address] Hematocrit (Bld) [Volume fraction] 37.0 % Low 41.0-53.0 [facility] Comment on above: Performed By: #### E GFR #### [address] [address] Hemoglobin (Bld) [Mass/Vol] 12.1 g/dL Low 13.5-17.5 [facility] Comment on above: Performed By: #### E GFR #### [address] [address] MCH (RBC) [Entitic mass] 30.2 pg Normal 27.0-35.0 [facility] Comment on above: Performed By: #### E GFR #### [address] [address] MCHC 32.6 % Normal 31.0-37.0 [facility] Comment on above: Performed By: #### E GFR #### [place] [id number] MCV (RBC) [Entitic vol] 92.6 fL Normal 80.0-100.0 [facility] Comment on above: Performed By: #### E GFR #### [address] [address] Platelet 174 x10*3/mcL Normal 150-450 [facility] Comment on above: Performed By: #### E GFR #### [address] [address] Platelet mean volume (Bld) [Entitic vol] 10.7 fL High 6.7-10.6 [facility] Comment on above: Performed By: #### E GFR #### [address] [address] RBC 4.00 x10*6/mcL Low 4.30-5.80 [facility] Comment on above: Performed By: #### E GFR #### [address] [address] WBC 11.9 x10*3/mcL High 4.5-11.0 [facility] Comment on above: Performed By: #### E GFR #### [address] [address] Diff Autoon 10-02-2023 Baso Absolute 0.0 x10*3/mcL Normal 0.0-0.2 [facility] Comment on above: Performed By: #### C [id number] #### [address] [address] Basophils/100 WBC (Bld) 0.2 % Normal 0.0-1.2 [facility] Comment on above: Performed By: #### C [id number] #### [address] [address] Eos Absolute 0.2 x10*3/mcL Normal 0.0-0.4 [facility] Comment on above: Performed By: #### C [id number] #### [address] [address] Eosinophils/100 WBC (Bld) 1.5 % Normal 0.0-6.1 [facility] Comment on above: Performed By: #### C [id number] #### [address] [address] Lymph Absolute 5.1 x10*3/mcL High 1.0-4.8 [facility] Comment on above: Performed By: #### C [id number] #### [address] [address] Lymphocytes/100 WBC (Bld) 42.9 % High 27.2-40.8 [facility] Comment on above: Performed By: #### C [id number] #### [address] [address] [place] Absolute 0.9 x10*3/mcL Normal 0.3-1.1 [facility] Comment on above: Performed By: #### C [id number] #### [address] [address] Monocytes/100 WBC (Bld) 7.1 % Normal 4.7-13.9 [facility] Comment on above: Performed By: #### C [id number] #### [address] [address] Neutro Absolute 5.7 x10*3/mcL Normal 1.8-7.7 [facility] Comment on above: Performed By: #### C [id number] #### [address] [address] Neutro Auto 48.3 % Normal 47.2-70.8 [facility] Comment on above: Performed By: #### C [id number] #### [address] [address] Inpatient Clinical Summaryon 10-02-2023 Inpatient Clinical Summary [address] [address] Clinical Summary Person Information Name: Neal Praker Age: 42 Years : 1980 Sex: Male PCP: Maribeth Vuong DO Marital Status: Phone: PCP: Race: White Ethnicity: Not or Language: Kinyarwanda Visit Id: Visit Reason: Speciality: Acuity: Enc Type: Inpatient Med Service: Surgery Arrival: 09/30/2023 08:56:12 Discharge: Dispo Type: Address: [address] [place] [id number] Diagnosis: Discharged To: Home Treatments: Devices/Equipment: Professional [...] range between ( 27.2 and 40.8 ) [place] Auto: 7.1 % -- Normal range between [...] range between ( 41.0 and 53.0 ) [place] Absolute: 0.9 x10 MCH: 30.2 pg -- [...] to r (more content not included)... Normal [facility] .eGFRon 10-01-2023 GFR/1.73 sq M.predicted MDRD (S/P/Bld) [Vol rate/Area] mL/min/{1.73_m2} Normal >=60 [facility] Comment on above: Order Comment: Order added by Discern rule Result Comment: [facility] have implemented the eGFR calculation [...] years Performed By: #### E GFR #### [address] [address] Basic Metabolic Profileon Calcium [Mass/Vol] 8.4 mg/dL Low 8.5-10.3 [facility] Comment on above: Performed By: #### E GFR #### [facility] [address] [place] [address] Anion gap [Moles/Vol] 6 mmol/L Normal 4-12 [facility] Comment on above: Performed By: #### E GFR #### [place] [address] [place] [address] Chloride [Moles/Vol] 107 mmol/L Normal 98-110 [facility] Comment on above: Performed By: #### E GFR #### [address] [address] CO2 [Moles/Vol] 26 mmol/L Normal 22-32 [facility] Comment on above: Performed By: #### E GFR #### [address] [address] Creatinine [Mass/Vol] 0.97 mg/dL Normal 0.61-1.24 [facility] Comment on above: Performed By: #### E GFR #### [address] [address] Glucose [Mass/Vol] 119 mg/dL High 70-99 [facility] Comment on above: Performed By: #### E GFR #### [address] [address] Potassium [Moles/Vol] 4.1 mmol/L Normal 3.4-4.8 [facility] Comment on above: Performed By: #### E GFR #### [address] [address] Sodium [Moles/Vol] 139 mmol/L Normal 133-142 [facility] Comment on above: Performed By: #### E GFR #### [address] [address] Urea nitrogen [Mass/Vol] 15 mg/dL Normal 8-26 [facility] Comment on above: Performed By: #### E GFR #### [address] [address] Urea nitrogen/Creatinine [Mass ratio] 15.5 mg/mg Normal 10.0-20.0 [facility] Comment on above: Performed By: #### E GFR #### [address] [address] CBC w/ Diffon 10-01-2023 Erythrocyte distribution width (RBC) [Ratio] 13.9 % Normal 11.6-14.8 [facility] Comment on above: Performed By: #### E GFR #### [address] [address] Hematocrit (Bld) [Volume fraction] 38.3 % Low 41.0-53.0 [facility] Comment on above: Performed By: #### E GFR #### [address] [address] Hemoglobin (Bld) [Mass/Vol] 12.5 g/dL Low 13.5-17.5 [facility] Comment on above: Performed By: #### E GFR #### [address] [address] MCH (RBC) [Entitic mass] 30.2 pg Normal 27.0-35.0 [facility] Comment on above: Performed By: #### E GFR #### [address] [address] MCHC 32.7 % Normal 31.0-37.0 [facility] Comment on above: Performed By: #### E GFR #### [address] [address] MCV (RBC) [Entitic vol] 92.3 fL Normal 80.0-100.0 [facility] Comment on above: Performed By: #### E GFR #### [address] [address] Platelet 175 x10*3/mcL Normal 150-450 [facility] Comment on above: Performed By: #### E GFR #### [address] [address] Platelet mean volume (Bld) [Entitic vol] 11.3 fL High 6.7-10.6 [facility] Comment on above: Performed By: #### E GFR #### [address] [address] RBC 4.15 x10*6/mcL Low 4.30-5.80 [facility] Comment on above: Performed By: #### E GFR #### [address] [address] WBC 15.0 x10*3/mcL High 4.5-11.0 [facility] Comment on above: Performed By: #### E GFR #### [address] [address] Diff Autoon 10-01-2023 Baso Absolute 0.0 x10*3/mcL Normal 0.0-0.2 [facility] Comment on above: Performed By: #### E GFR #### [address] [address] Basophils/100 WBC (Bld) 0.1 % Normal 0.0-1.2 [facility] Comment on above: Performed By: #### E GFR #### [address] [address] Eos Absolute 0.0 x10*3/mcL Normal 0.0-0.4 [facility] Comment on above: Performed By: #### E GFR #### [address] [address] Eosinophils/100 WBC (Bld) 0.0 % Normal 0.0-6.1 [facility] Comment on above: Performed By: #### E GFR #### [address] [address] Lymph Absolute 1.6 x10*3/mcL Normal 1.0-4.8 [facility] Comment on above: Performed By: #### E GFR #### [address] [address] Lymphocytes/100 WBC (Bld) 10.9 % Low 27.2-40.8 [facility] Comment on above: Performed By: #### E GFR #### [address] [address] [place] Absolute 0.9 x10*3/mcL Normal 0.3-1.1 [facility] Comment on above: Performed By: #### E GFR #### [address] [address] Monocytes/100 WBC (Bld) 6.2 % Normal 4.7-13.9 [facility] Comment on above: Performed By: #### E GFR #### [address] [address] Neutro Absolute 12.4 x10*3/mcL High 1.8-7.7 [facility] Comment on above: Performed By: #### E GFR #### [facility] [address] [place] [address] Neutro Auto 82.8 % High 47.2-70.8 [facility] Comment on above: Performed By: #### E GFR #### [facility] [address] [place] [address] Orthopedic Progress Noteon 0 10-01-2023 Orthopedic Progress [...] Graf MD, Jr 10/01/23 11:46 EDT Normal [facility] Operative Reporton Operative Report Preoperative Diagnosis 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 Postoperative Diagnosis 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 Operation L5-S1 right HW removal, L5-S1 revision right decompression and revision fusion Surgeon(s) St Keri PLEITEZ, Diaz Mercer (Surgeon - Primary) Cut Out Operator Qamar Recio PA-C (Answering Service Agent) Anesthesia General Trevor PLEITEZ, Zuleima Maier (Java Security Engineer) Kurt Nieves (Provider) Estimated Blood Loss 150 mL Urine Output 800.0 mL Findings loose screws Specimen(s) none Complications none Catheters, Drains, Tubes Device: Rodney Tray 16FR Latex Free [id number] Electronically signed by Qamar Recio PA-C 09/30/23 12:16 EDT Normal [facility] XR Spine Lumbosacral 1 View [...] Electronically Signed in Other Vendor System) Normal [facility] XR Chest 2 Viewson XR [...] Electronically Signed in Other Vendor System) Normal [facility] .eGFRon 09-10-2023 GFR/1.73 sq M.predicted MDRD (S/P/Bld) [Vol rate/Area] mL/min/{1.73_m2} Normal >=60 [facility] Comment on above: Result Comment: [facility] have implemented the eGFR calculation [...] years Performed By: #### E GFR #### [facility] [address] [place] [address] ABO/Rhon 09-10-2023 ABO/Rh SD 09/30/23 ABO/Rh: A POS Normal [facility] Comment on above: Performed By: #### A ABRIL #### [facility] (DEFAULT) [address] [place] [address] [facility] (UNKNOWN) [address] [place] [address] ABSC Autoon 09-10-2023 ABSC Auto Negative Normal [facility] Comment on above: Performed By: #### A SA #### [facility] (UNKNOWN) [address] [place] [address] Basic Metabolic Profileon Anion gap [Moles/Vol] 8 mmol/L Normal 4-12 [facility] Comment on above: Performed By: #### C [id number] #### [facility] [address] [place] [address] Calcium [Mass/Vol] 10.3 mg/dL Normal 8.5-10.3 [facility] Comment on above: Performed By: #### C [id number] #### [facility] [address] [place] [address] Chloride [Moles/Vol] 101 mmol/L Normal 98-110 [facility] Comment on above: Performed By: #### C [id number] #### [address] [address] CO2 [Moles/Vol] 31 mmol/L Normal 22-32 [facility] Comment on above: Performed By: #### C [id number] #### [address] [address] Creatinine [Mass/Vol] 1.05 mg/dL Normal 0.61-1.24 [facility] Comment on above: Performed By: #### C [id number] #### [address] [address] Glucose [Mass/Vol] 94 mg/dL Normal 70-99 [facility] Comment on above: Performed By: #### C [id number] #### [address] [address] Potassium [Moles/Vol] 4.0 mmol/L Normal 3.4-4.8 [facility] Comment on above: Performed By: #### C [id number] #### [address] [address] Sodium [Moles/Vol] 140 mmol/L Normal 133-142 [facility] Comment on above: Performed By: #### C [id number] #### [address] [address] Urea nitrogen [Mass/Vol] 13 mg/dL Normal 8-26 [facility] Comment on above: Performed By: #### C D:[id number] #### [address] [address] Urea nitrogen/Creatinine [Mass ratio] 12.4 mg/mg Normal 10.0-20.0 [facility] Comment on above: Performed By: #### C [id number] #### [address] [address] CBCon 09-10-2023 Erythrocyte distribution width (RBC) [Ratio] 14.1 % Normal 11.6-14.8 [facility] Comment on above: Performed By: #### C [id number] #### [address] [address] Hematocrit (Bld) [Volume fraction] 46.6 % Normal 41.0-53.0 [facility] Comment on above: Performed By: #### C [id number] #### [address] [address] Hemoglobin (Bld) [Mass/Vol] 15.5 g/dL Normal 13.5-17.5 [facility] Comment on above: Performed By: #### C [id number] #### [address] [address] MCH (RBC) [Entitic mass] 30.9 pg Normal 27.0-35.0 [facility] Comment on above: Performed By: #### C D:[id number] #### [address] [address] MCHC 33.3 % Normal 31.0-37.0 [facility] Comment on above: Performed By: #### C D:[id number] #### [address] [address] MCV (RBC) [Entitic vol] 92.9 fL Normal 80.0-100.0 [facility] Comment on above: Performed By: #### C D:[id number] #### [address] [address] Platelet 191 x10*3/mcL Normal 150-450 [facility] Comment on above: Performed By: #### C D:[id number] #### [address] [address] Platelet mean volume (Bld) [Entitic vol] 11.3 fL High 6.7-10.6 [facility] Comment on above: Performed By: #### C D:[id number] #### [address] [address] RBC 5.02 x10*6/mcL Normal 4.30-5.80 [facility] Comment on above: Performed By: #### C [id number] #### [address] [address] WBC 8.2 x10*3/mcL Normal 4.5-11.0 [facility] Comment on above: Performed By: #### C D:[id number] #### [address] [address] MRSA, PCRon 09-10-2023 LAB ONLY Result Called? No Normal [facility] Comment on above: Performed By: #### E GFR #### [address] [address] Methicillin Resistant Staph aurus(MRSA) Not detected Normal Not Detected [facility] Comment on above: Result Comment: Mut ations or polymorphisms in primer or probe binding regions may affect detection of new or unknown MRSA variants resulting in a false negative. The [employer] Xpert MRSA Assay is a qualitative [...] clinician. Performed By: #### E GFR #### [address] [address] PTon 09-10-2023 INR Coag (PPP) [Relative time] 0.9 {INR} Normal <=3.5 [facility] Comment on above: Result Comment: INR has no normal range. INR Therapeutic range is: 2.0-3.0 (AF, CVA, TIAs, DVT prophylaxis, acute DVT) 2.5-3.5 ([facility] heart valves, recurrent thrombosis/emboli) Performed By: #### P TINR #### [address] [address] PT Coag (PPP) [Time] 9.8 s Normal 9.2-12.0 [facility] Comment on above: Performed By: #### P TINR #### [address] [address] PTTon 09-10-2023 aPTT Coag (Bld) [Time] 22.0 s Normal 19.5-28.2 [facility] Comment on above: Performed By: #### C [id number] #### [address] [address] XR hand LT min 3V*on 024 XR hand LT min 3V* [facility] [place] [address] XRay Report Signed Patient: Neal Parker MR#: [id number] : 1980 Acct:[id number] Age/Sex: 42 / M ADM Date: 06/03/23 Loc: [facility] [place] Room: Type: [facility] Attending Dr: Nisha Villanueva MD Copies to: [...] BONY PROCESS. Impression dictated by: Sonny Greer Jr. DMarylin06/03/2023 3:46 PM Dictation Location: [place] [address] Transcribed By: IJL 06/03/23 1546 Dictated By: Sonny Greer Jr, DO 06/03/23 1545 Signed By: 06/03/23 1546 Normal [facility] Amylaseon 07-15-2022 Amylase 43 U/L Normal 29-103 U/L [employer] Other Amylase [Enzymatic activity/ volume] in Serum or PlasmaOrdered By: Mariebth Vuong on 07-15-2022 Amylase [Catalytic activity/Vol] 43 U/L 29-103 [facility] Basophils Auto (Bld) [#/Vol] Ordered By: Maribeth Vuong on 07-15-2022 Basophils (Bld) [#/Vol] 0.0 10*3/uL 0.0-0.2 [facility] Basophils/100 WBC Auto (Bld) Ordered By: Maribeth Vuong on 07-15-2022 Basophils/100 WBC (Bld) 0.5 % . F [facility] CBC W MANUAL DIFFon 07-16-19 23 ATYPICAL LYMPH # Normal [facility] Comment on above: Performed By: #### C BCDOLORES ####[facility] [address] [place] [address]Dr. Yilan David ATYPICAL LYMPH % Normal [facility] Comment on above: Performed By: #### C BCMAN ####[facility] [address] [place] [address]Dr. Yilan David BAND # 0.1 103/ul Normal 0.0-0.3 [facility] Comment on above: Performed By: #### C BCDOLORES ####[facility] [address] [place] [address]Dr. Yilan David BAND % 1 % Normal 0-5 [facility] Comment on above: Performed By: #### C BCMAN ####[facility] [address] [place] [address]Dr. Yilan David BASOM # 0.00 103/ul Normal 0.00-0.10 [facility] Comment on above: Performed By: #### C BCDOLORES ####[facility] [address] [place] [address]Dr. Yilan David BASOM % 0.0 % Critically low 0.2-2.0 [facility] Comment on above: Performed By: #### C BCMAN ####[facility] [address] [place] [address]Dr. Sydney David BLAST # Normal [facility] Comment on above: Performed By: #### C BCMAN ####[facility] [address] [place] [address]Dr. Sydney David BLAST % Normal [facility] Comment on above: Performed By: #### C BCDOLORES ####[facility] [address] [place] [address]Dr. Sydney David CORRECTED WBC Normal 4.0-11.0 [facility] Comment on above: Performed By: #### C JEAN ####[facility] [address] [place], [place] [address]Dr. Sydney David EOS # 0.24 103/ul Normal 0.00-0.70 [facility] Comment on above: Performed By: #### C JEAN ####[facility] [address] [place], [place] [address]Dr. Sydney David EOS% 3.0 % Normal 0.9-7.0 [facility] Comment on above: Performed By: #### C JEAN ####[facility] [address] [place], [place] [address]Dr. Sydney David HCT 46.4 % Normal 42.0-54.0 [facility] Comment on above: Performed By: #### C JEAN ####[facility] [address] [place], [place] [address]Dr. Sydney David HGB 15.4 g/dl Normal 14.0-18.0 [facility] Comment on above: Performed By: #### C JEAN ####[facility] [address] [place], [place] [address]Dr. Sydney David LYMPHM # 3.36 103/ul Normal 1.20-3.80 [facility] Comment on above: Performed By: #### C JEAN ####[facility] [address] [place] [address]Dr. Sydney David LYMPHM% 42.0 % Normal 20.5-60.0 [facility] Comment on above: Performed By: #### C JEAN ####[facility] [address] [place] [address]Dr. Sydney David MCH 30.3 pg Normal 25.9-34.0 [facility] Comment on above: Performed By: #### C JEAN ####[facility] [address] [place] [address]Dr. Sydney David MCHC 33.2 g/dl Normal 29.9-35.2 [facility] Comment on above: Performed By: #### C JEAN ####[facility] [address] [place], [place] [address]Dr. Sydney David MCV 91.3 fL Normal 80.0-94.0 [facility] Comment on above: Performed By: #### C JEAN ####[facility] [address] [place], [place] [address]Dr. Sydney David METAMYELOCYTE # Normal [facility] Comment on above: Performed By: #### C JEAN ####[facility] [address] [place], [place] [address]Dr. Sydney David METAMYELOCYTE % Normal [facility] Comment on above: Performed By: #### C JEAN ####[facility] [address] [place], [place] [address]Dr. Sydney David MONOM# 0.80 103/ul Normal 0.30-0.80 [facility] Comment on above: Performed By: #### C JEAN ####[facility] [address] [place] [address]Dr. Sydney David MONOM% 10.0 % Normal 1.7-12.0 [facility] Comment on above: Performed By: #### C JEAN ####[facility] [address] [place] [address]Dr. Sydney David MPV 11.8 fL Normal 9.5-13.5 [facility] Comment on above: Performed By: #### C JEAN ####[facility] [address] [place], [place] [address]Lm. Sydney David MYELOCYTE # Normal [facility] Comment on above: Performed By: #### C JEAN ####[facility] [address] [place] [address]Dr. Sydney David MYELOCYTE % Normal [facility] Comment on above: Performed By: #### C JEAN ####[facility] [address] [place] [address]Dr. Sydney David NRBC Normal [facility] Comment on above: Performed By: #### C JEAN ####[facility] [address] [place] [address]Dr. Sydney David PLT 249 103/ul Normal 150-450 [facility] Comment on above: Performed By: #### C JEAN ####[facility] [address] [place], [place] [address]Dr. Sydney David RBC 5.08 106/ul Normal 4.70-6.10 [facility] Comment on above: Performed By: #### C JEAN ####[facility] [address] [place], [place] [address]Dr. Sydney David RDW 13.1 % Normal 11.0-15.0 [facility] Comment on above: Performed By: #### C JEAN ####[facility] [address] [place], [place] [address]Dr. Sydney David SEG # 3.52 103/ul Normal 1.40-6.50 [facility] Comment on above: Performed By: #### C JEAN ####[facility] [address] [place] [address]Dr. Sydney David SEG % 44.0 % Normal 43.0-75.0 [facility] Comment on above: Performed By: #### C JEAN ####[facility] [address] [place] [address]Dr. Sydeny David WBC 8.0 103/ul Normal 4.0-11.0 [facility] Comment on above: Performed By: #### C [facility] ####[facility] [address] [place], [place] [address] CT ABD/PELV W CONon 07-16-19 CT ABD/PELV W CON EXAM: CT ABD/PELV [...] EVANGELIST LEOS Date: 2022-07-15 16:53 Normal [facility] Complete Blood Count Auto Di ffon 07-15-2022 Basophils (Bld) [#/Vol] 0.511308162 10*3/uL Normal 0.0-0.2 10*3/uL [employer] Other Basophils/100 WBC (Bld) 0.500 % . % N [employer] Other Eosinophils (Bld) [#/Vol] 0.616647351 10*3/uL High 0.0-0.45 10*3/uL [employer] Other Eosinophils/100 WBC (Bld) 6.100 % . % [employer] Other Erythrocyte distribution width (RBC) [Ratio] 13.600 % Normal 12.0-14.8 % [employer] Other Hematocrit (Bld) [Volume fraction] 47.400 % Normal 38.8-50.0 % [employer] Other Hemoglobin (Bld) [Mass/Vol] 15.398882 g/dL Normal 13.0-17.0 g/dL [employer] Other Lymphocytes (Bld) [#/Vol] 4.347397622 10*3/uL Normal 1.00-4.8 10*3/uL [employer] Other Lymphocytes/100 WBC (Bld) 46.500 % . % [employer] Other MCH (RBC) [Entitic mass] 30.2000 pg Normal 27.5-35.2 pg [employer] Other MCV (RBC) [Entitic vol] 92.3000 fL Normal 83.5-101 fL [employer] Other Monocytes (Bld) [#/Vol] 0.155603311 10*3/uL Normal 0.0-0.8 10*3/uL [employer] Other Monocytes/100 WBC (Bld) 8.300 % . % N [facility] [employer] Other Neutrophils (Bld) [#/Vol] 3.774853237 10*3/uL Normal 1.8-7.7 10*3/uL [employer] Other Neutrophils/100 WBC (Bld) 38.600 % . % [employer] Other Platelet mean volume (Bld) [Entitic vol] 11.1000 fL High 6.6-10.1 fL [employer] Other WBC (Bld) [#/Vol] 9.120091264 10*3/uL Normal 4.1 -10.5 10*3/uL [employer] Other Complete Blood Count Auto Diff 9.2 10*3/uL Normal 4.1-10.5 10*3/uL [employer] Other Complete Blood Count Auto Diff 32.7 g/dL Normal 32.5-35.6 g/dL [employer] Other Complete Blood Count Auto Diff 0.0 /100{WBC} Normal 0-0.5 /100{WBC} [employer] Other Complete Blood Count Auto Di ffOrdered By: Maribeth Vuong on 07-15-2022 Platelets (Bld) [#/Vol] 236 10*3/uL 150-450 [facility] RBC (Bld) [#/Vol] 5.13 10*6/uL 3.90-5.60 [facility] ER URINE PROFILEon 3 Bilirubin Ql (U) Negative Normal NEGATIVE [facility] Comment on above: Performed By: #### E RUR ####[facility] [address] [place], [place] [address]Dr. Sydney David Clarity (U) CLEAR Normal CLEAR [facility] Comment on above: Performed By: #### E RUR ####[facility] [address] [place], [place] [address]Dr. Sydney David Color (U) LT. YELLOW Normal YELLOW [facility] Comment on above: Performed By: #### E RUR ####[facility] [address] [place], [place] [address]Dr. Sydney David ERUAHD A micrscopic examination will be performed if indicated. Normal [facility] Comment on above: Performed By: #### E RUR ####[facility] [address] [place], [place] [address]Dr. Sydney David Glucose Ql (U) Negative Normal NEGATIVE [facility] Comment on above: Performed By: #### E RUR ####[facility] [address] [place], [place] [address]Dr. Sydney David Hemoglobin Ql (U) Negative Normal NEGATIVE [facility] Comment on above: Performed By: #### E RUR ####[facility] [address] [place] [address]Dr. Sydney David Ketones Ql (U) Negative Normal NEGATIVE [facility] Comment on above: Performed By: #### E RUR ####[facility] [address] [place] [address]Dr. Sydney David LEUKOCYTES Negative Normal NEGATIVE [facility] Comment on above: Performed By: #### E RUR ####[facility] [address] [place], [place] [address]Dr. Sydney David Nitrite Ql (U) Negative Normal NEGATIVE [facility] Comment on above: Performed By: #### E RUR ####[facility] [address] [place], [place] [address]Dr. Sydney David pH (U) 5.5 [pH] Normal 5-9 [facility] Comment on above: Performed By: #### E RUR ####[facility] [address] [place], [place] [address]Dr. Sydney Frankie SPEC GRAVITY 1.010 Normal 1.005-<=1.[address] [place] [address] Comment on above: Performed By: #### E RUR ####[facility] [address] [place], [place] [address]Dr. Sydney Frankie UA PROTEIN Negative Normal NEGATIVE/ TRACE [facility] Comment on above: Performed By: #### E RUR ####[facility] [address] [place], [place] [address]Dr. Keymera Frankie UR MICRO IND NOT INDICATED Normal [facility] Comment on above: Performed By: #### E RUR ####[facility] [address] [place], [place] [address]Dr. Sydney David Urobilinogen Qn (U) 0.2 {Johan'U}/dL Normal 0.2 - 1. 0 [facility] Comment on above: Performed By: #### E RUR ####[facility] [address] [place], [place] [address]Dr. Sydney David Eosinophils Auto (Bld) [#/Vo l]Ordered By: Maribeth Vuong on 07-15-2022 Eosinophils (Bld) [#/Vol] 0.6 10*3/uL 0.0-0.45 [facility] Eosinophils/100 WBC Auto (Bl d)Ordered By: Maribeth Vuong on 07-15-2022 Eosinophils/100 WBC (Bld) 6.1 % . [facility] Erythrocyte distribution wid th Auto (RBC) [Ratio]Ordered By: Maribeth Vuong on 07-15-2022 Erythrocyte distribution width (RBC) [Ratio] 13.6 % 12.0-14.8 [facility] Hematocrit Auto (Bld) [Volum e fraction]Ordered By: Maribeth Vuong on 07-15-2022 Hematocrit (Bld) [Volume fraction] 47.4 % 38.8-50.0 [facility] Hemoglobin [Mass/volume] in BloodOrdered By: Maribeth Vuong on 07-15-2022 Hemoglobin (Bld) [Mass/Vol] 15.5 g/dL 13.0-17.0 [facility] Leukocytes [#/volume] correc gris for nucleated erythrocytes in Blood by Automated counOrdered By: Maribeth Vuong on 07-15-2022 WBC corrected for nucl RBC Auto (Bld) [#/Vol] 9.2 10*3/uL 4.1-10.5 [facility] Lipaseon 07-15-2022 Lipase [Catalytic activity/Vol] 80.05046 U/L Normal 11.0-82.0 U/L [employer] Other Lipase [Enzymatic activity/v olume] in Serum or PlasmaOrdered By: Maribeth Vuong on 07-15-2022 Lipase [Catalytic activity/Vol] 80.0 U/L 11.0-82.0 [facility] Lymphocytes Auto (Bld) [#/Vo l]Ordered By: Maribeth Vuong on 07-15-2022 Lymphocytes (Bld) [#/Vol] 4.3 10*3/uL 1.00-4.8 [facility] Lymphocytes/100 WBC Auto (Bl d)Ordered By: Maribeth Vuong on 07-15-2022 Lymphocytes/100 WBC (Bld) 46.5 % . [facility] MCH Auto (RBC) [Entitic mass ]Ordered By: Maribeth Vuong on 07-15-2022 MCH (RBC) [Entitic mass] 30.2 pg 27.5-35.2 [facility] MCHC Auto (RBC) [Mass/Vol]Or dered By: Maribeth Vuong on 07-15-2022 MCHC (RBC) [Mass/Vol] 32.7 g/dL 32.5-35.6 [facility] MCV Auto (RBC) [Entitic vol] Ordered By: Maribeth Vuong on 07-15-2022 MCV (RBC) [Entitic vol] 92.3 fL 83.5-101 F [facility] Monocytes Auto (Bld) [#/Vol] Ordered By: Maribeth Vuong on 07-15-2022 Monocytes (Bld) [#/Vol] 0.8 10*3/uL 0.0-0.8 [facility] Monocytes/100 WBC Auto (Bld) Ordered By: Maribeth Vuong on 07-15-2022 Monocytes/100 WBC (Bld) 8.3 % . F [facility] Neutrophils Auto (Bld) [#/Vo l]Ordered By: Maribeth Vuong on 07-15-2022 Neutrophils (Bld) [#/Vol] 3.6 10*3/uL 1.8-7.7 [facility] Neutrophils/100 WBC Auto (Bl d)Ordered By: Maribeth Vuong on 07-15-2022 Neutrophils/100 WBC (Bld) 38.6 % . [facility] Nucleated erythrocytes [Pres ence] in Blood by Automated countOrdered By: Maribeth Vuong on 07-15-2022 Nucleated RBC Auto Ql (Bld) 0.0 /100{WBC} 0-0.5 [facility] PROF CHEM 8 (BAS METB)on Anion gap [Moles/Vol] 13.3 mmol/L Normal Th e [facility] Comment on above: Performed By: #### B MP #### [facility] [address] [place] [address] Dr. Sydney David Calcium [Mass/Vol] 9.1 mg/dL Normal 8.5-10.1 [facility] Comment on above: Performed By: #### B MP #### [facility] [address] [place] [address] Dr. Sydney David Chloride [Moles/Vol] 102 mmol/L Normal 98-107 [facility] Comment on above: Performed By: #### B MP #### [facility] [address] [place] [address] Dr. Sydney David CO2 [Moles/Vol] 27.2 mmol/L Normal 21.0-32.0 [facility] Comment on above: Performed By: #### B MP #### [facility] [address] [place] [address] Dr. Sydney David Creatinine [Mass/Vol] 1.08 mg/dL Normal 0.70-1.30 [facility] Comment on above: Performed By: #### B MP #### [facility] [address] [place] [address] Dr. Sydney David EGFR-AF BELARUSIAN >60 Normal >=60 [facility] Comment on above: Performed By: #### B MP #### [facility] [address] [place] [address] Dr. Sydney David EGFR-NON AF BELARUSIAN >60 Normal >=60 [facility] Comment on above: Performed By: #### B MP #### [facility] [address] [place] [address] Dr. Sydney David Glucose [Mass/Vol] 116 mg/dL Critically high 74-106 [facility] Comment on above: Performed By: #### B MP #### [facility] [address] [place] [address] Dr. Sydney David Potassium [Moles/Vol] 3.5 mmol/L Normal 3.5-5.1 [facility] Comment on above: Performed By: #### B MP #### [facility] [address] [place] [address] Dr. Sydney David Sodium [Moles/Vol] 139 mmol/L Normal 136-145 [facility] Comment on above: Performed By: #### B MP #### [facility] [address] [place], [place] [address] Dr. Sydney David Urea nitrogen [Mass/Vol] 12.0 mg/dL Normal 7.0-18.0 [facility] Comment on above: Performed By: #### B MP #### [facility] [address] [place], [place] [address] Dr. Sydney David Urea nitrogen/Creatinine [Mass ratio] 11.1 mg/mg Normal [facility] Comment on above: Performed By: #### B MP #### [facility] [address] [place] [address] [address] Sydney aDvid Platelet mean volume Auto (B ld) [Entitic vol]Ordered By: Maribeth Vuong on 07-15-2022 Platelet mean volume (Bld) [Entitic vol] 11.1 fL 6.6-10.1 [facility] WBC Auto (Bld) [#/Vol]Ordere d By: Maribeth Vuong on 07-15-2022 WBC (Bld) [#/Vol] 9.2 10*3/uL 4.1-10.5 [facility] Alanine aminotransferase [En zymatic activity/volume] in Serum or PlasmaOrdered By: Maribeth Vuong on 07-12-2022 ALT [Catalytic activity/Vol] 68 U/L 7-52 [facility] Albumin [Mass/volume] in Ser um or Plasma by Bromocresol green (BCG) dye binding methoOrdered By: Maribeth Vuong on 07-12-2022 Albumin BCG dye [Mass/Vol] 4.7 g/dL 3.5-5.7 [facility] Alkaline phosphatase [Enzyma tic activity/volume] in Serum or PlasmaOrdered By: Maribeth Vuong on 07-12-2022 ALP [Catalytic activity/Vol] 33 U/L 34-104 [facility] Aspartate aminotransferase [ Enzymatic activity/volume] in Serum or PlasmaOrdered By: Maribeth Vuong on 07-12-2022 AST [Catalytic activity/Vol] 29 U/L 13-39 [facility] Bilirubin.total [Mass/volume ] in Serum or PlasmaOrdered By: Maribeth Vuong on 07-12-2022 Bilirubin [Mass/Vol] 0.6 mg/dL 0.3-1.0 [facility] Calcium [Mass/volume] in Ser um or PlasmaOrdered By: Maribeth Vuong on 07-12-2022 Calcium [Mass/Vol] 10.1 mg/dL 8.6-10.3 [facility] Carbon dioxide, total [Moles /volume] in Serum or PlasmaOrdered By: Maribeth Vuong on 07-12-2022 CO2 [Moles/Vol] 27.5 mmol/L 21.0-31.0 [facility] Chloride [Moles/volume] in S flash or PlasmaOrdered By: Maribeth Vuong on 07-12-2022 Chloride [Moles/Vol] 106 mmol/L 98-107 [facility] Cholesterol [Mass/volume] in Serum or PlasmaOrdered By: Maribeth Vuong on 07-12-2022 Cholesterol [Mass/Vol] 296 mg/dL 140-200 [facility] Comment on above: Chol less than 200 m g/dl low riskChol 201-239 mg/dl borderline riskChol 240 mg/dl and greater high risk Cholesterol in LDL Calc [Mas s/Vol]Ordered By: Maribeth Vuong on 07-12-2022 Cholesterol in LDL [Mass/Vol] 206 mg/dL 0-100 [facility] Comment on above: LDL ATP III CLASSIFI CATIONLDL less than 100 mg/dL OptimalLDL 100-129 mg/dL Near or above optimalLDL 130-159 mg/dL Borderline highLDL 160-189 mg/dL HighLDL greater than 189 mg/dL Very high Cholesterol in VLDL Calc [Ma ss/Vol]Ordered By: Maribeth Vuong on 07-12-2022 Cholesterol in VLDL [Mass/Vol] 53 mg/dL [facility] Creatinine [Mass/volume] in Serum or PlasmaOrdered By: Maribeth Vuong on 07-12-2022 Creatinine [Mass/Vol] 0.96 mg/dL 0.70-1.30 [facility] Globulin Calc (S) [Mass/Vol] Ordered By: Maribeth Vuogn on 07-12-2022 Globulin (S) [Mass/Vol] 2.6 g/dL [facility] Glucose [Mass/volume] in Ser um or PlasmaOrdered By: Maribeth Vuong on 07-12-2022 Glucose [Mass/Vol] 106 mg/dL 70-100 [facility] Comment on above: ADA recommended refe rence rangeRandom Glucose Reference Range is dependent on time and content of last meal. Glucose of more than 200 mg/dL in a nonstressed, ambulatory subject supports the diagnosis of Diabetes Mellitus. No Panel InformationOrdered By: Maribeth Vuong on 07-12-2022 Estimated GFR (CKD-EPI) > 60.0 mL/Min [facility] Creatinine Clearance (Chem N/A [facility] Potassium [Moles/volume] in Serum or PlasmaOrdered By: Maribeth Vuong on 07-12-2022 Potassium [Moles/Vol] 4.3 mmol/L 3.5-5.1 [facility] Prostate specific Ag [Mass/v olume] in Serum or PlasmaOrdered By: Maribeth Vuong on 07-12-2022 Prostate specific Ag [Mass/Vol] 0.670 ng/mL 0.000-4.000 [facility] Protein [Mass/volume] in Ser um or PlasmaOrdered By: Maribeth Vuong on 07-12-2022 Protein [Mass/Vol] 7.3 g/dL 6.4-8.9 [facility] Serum or plasma albumin/glob ulin mass ratioOrdered By: Maribeth Vuong on 07-12-2022 Albumin/Globulin [Mass ratio] 1.8 {ratio} [facility] Serum or plasma anion gap de terminationOrdered By: Maribeth Vuong on 07-12-2022 Anion gap [Moles/Vol] 11.8 mmol/L 6.0-15.0 [facility] Serum or plasma high density lipoprotein (HDL) cholesterol measurementOrdered By: Maribeth Vuong on 07-12-2022 Cholesterol in HDL [Mass/Vol] 37 mg/dL 29-71 [facility] Comment on above: HDL CHOL ATP-III CLA SSIFICATION Cardiovascular RiskHDL > or equal to 60 mg/dL LOWHDL < 40 mg/dL HIGH Serum or plasma total choles terol/high density lipoprotein (HDL) cholesterol mass ratOrdered By: Maribeth Vuong on 07-12-2022 Cholesterol.total/Patti sterol in HDL [Mass ratio] 8.0 {ratio} <5.0 [facility] Sodium [Moles/volume] in Ser um or PlasmaOrdered By: Maribeth Woodymer on 07-12-2022 Sodium [Moles/Vol] 141 mmol/L 136-145 [facility] Triglyceride [Mass/volume] i n Serum [...] 07-12-2022 Urea nitrogen [Mass/Vol] 12 mg/dL 10-29 [facility] XR LSPINE 2_3 VIEWSon 2022 XR [...] by: DAMARIS ESPINOSA Date: 2022-07-02 14:57 Normal [facility] MRI PELVIS WO CONon 06-28-19 23 [...] by: DAMARIS ESPINOSA Date: 2022-06-27 09:45 Normal [facility] MRI LSCHAMA WO CONon 06-27-19 MRI [facility] WO CON EXAMINATION: MRI [facility] WO CON HISTORY: Lumbar radiculitis , [...] by: RENE LAUREN Date: 2022-06-26 15:24 Normal [facility] XR lumbar spine AP/LAT/FLX/E [employer] 01-08-2021 XR lumbar spine AP/LAT/FLX/EXT [facility] [employer] Other XR lumbar spine AP/LAT/FLX/EXT [facility] [employer] Other XR lumbar spine AP/LAT/FLX/EXT [address] [place] [address] [employer] Other XR lumbar spine AP/LAT/FLX/[place] [address] [employer] Other XR lumbar spine AP/LAT/FLX/EXT XRay Report [employer] Other XR lumbar spine AP/LAT/FLX/EXT Signed [employer] Other XR lumbar spine AP/LAT/FLX/EXT Patient: Neal Parker MR#: [id number] [employer] Other XR lumbar spine AP/LAT/FLX/EXT 206 [employer] Other XR lumbar spine AP/LAT/FLX/EXT : 1980 Acct:[id number] [employer] Other XR lumbar spine AP/LAT/FLX/EXT Age/Sex: 40 / M ADM Date: 01/08/21 [employer] Other XR lumbar spine AP/LAT/FLX/EXT Loc: [facility]XD Room: Type: [facility] [employer] Other XR lumbar spine AP/LAT/FLX/EXT Attending Dr: Charles Solares MD [employer] Other XR lumbar spine AP/LAT/FLX/EXT Ordering Provider: Charles Solares MD [employer] Other XR lumbar spine AP/LAT/FLX/EXT Date of Service: 01/08/21 [employer] Other XR lumbar spine AP/LAT/FLX/EXT XR/XR lumbar spine AP/LAT/FLX/EXT: Other spondylosis with radiculopathy, [employer] Other XR lumbar spine AP/LAT/FLX/EXT lumbar region [employer] Other XR lumbar spine AP/LAT/FLX/EXT Copies to: Charles Solares MD [employer] Other XR lumbar spine AP/LAT/FLX/EXT Lumbar spine 01/08/2021. [employer] Other XR lumbar spine AP/LAT/FLX/EXT CLINICAL DATA: Low back pain. [employer] Other XR lumbar spine AP/LAT/FLX/EXT FINDINGS: 4 standing views of the lumbar spine were obtained including lateral views in the [employer] Other XR lumbar spine AP/LAT/FLX/EXT neutral, flexion, and extension positions. This examination is compared with a prior study 04/14/2019. [employer] Other XR lumbar spine AP/LAT/FLX/EXT There are stable postsurgical changes related to lumbosacral spinal fusion. There is also stable [employer] Other XR lumbar spine AP/LAT/FLX/EXT anterior malalignment of L5 on S1. Mild posterior malalignment of L2 on L3 is noted. Overall [employer] Other XR lumbar spine AP/LAT/FLX/EXT vertebral alignment does not significantly change with limited flexion or limited extension. Disc [employer] Other XR lumbar spine AP/LAT/FLX/EXT space narrowing is identified. Minimal degenerative changes are seen. [employer] Other XR lumbar spine AP/LAT/FLX/EXT XR/XR lumbar spine AP/LAT/FLX/EXT [employer] Other XR lumbar spine AP/LAT/FLX/EXT IMPRESSION: Stable postsurgical changes and mild vertebral malalignment at the lumbosacral junction. [employer] Other XR lumbar spine AP/LAT/FLX/EXT Mild posterior malalignment of L2 on L3. No instability with limited flexion or extension. Disc [employer] Other XR lumbar spine AP/LAT/FLX/EXT space narrowing and minimal degenerative changes. [employer] Other XR lumbar spine AP/LAT/FLX/EXT Impression dictated by: Jude Stock Jr., M.D.01/08/2021 2:59 PM [employer] Other XR lumbar spine AP/LAT/FLX/EXT Dictation Location: [place] [address] [employer] Other XR lumbar spine AP/LAT/FLX/EXT Transcribed By: JIL 01/08/21 [facility] [employer] Other XR lumbar spine AP/LAT/FLX/EXT Dictated By: Jude Stock Jr, MD 01/08/21 [facility] [employer] Other XR lumbar spine AP/LAT/FLX/EXT Signed By: [employer] Other XR lumbar spine AP/LAT/FLX/EXT 01/08/21 [facility] [employer] Other Erasto 06-09-2018 CNOV Office Visit (NSFRVW ) NEAL PARKER ([id number]) 1980 M Date Time Provider Department 06/09/18 [...] fx. Had surgery by Dr. Robbie Wakefield, [facility] in [place]. 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 Author Type: [...] fx. Had surgery by Dr. Robbie Wakefield, [facility] in [place]. 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 Hx of back problems and surgeries. Took two [place], flexeril, celebrex prior to coming. Needs another surgery for back. History of Present Illness 37-year-old white male presents emergency room with his and complaints of worsening lower back pain after bending over to light his heater in his shop. Patient has had prior back surgery by Dr. Sen in [place] March 14, 2015. Patient states he has [...] Anxious mood & affect. Integumentary: Warm, Dry, [place] Medical Decision Making X-rays did not demonstrate [...] RENE WASSIL In 3 days 04/04/[address] [place] [phone] Business (1) Additional Instructions: Call tomorrow for [...] made to ensure accuracy, however, inadvertently computerized shellac polisher mistakes may be present. Patient was treated and evaluated by the physician engineer assistant. The attending physician was in the [...] acute fracture. Signed By: Andreas Cordova MD [facility] Comment on above: Result Comment: Elec tronically Signed By: Abdelrahman Olvera PA-C\.br\Date and Time Signed: 04/01/18 12:55 EST\.br\Electronically Co-Signed By: Lashay Li DO\.br\Date and Time Co-Signed: 04/07/18 16:20 EST Coding Summary.on 04-02-2018 Coding Summary. 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 However, the narrative phrase printed from the coding software may appear abbreviated, or result in slightly different terminology. Coded By: Laila Mcghee Date Saved: 04/02/2018 11:01 am [facility] ED Clinical Summaryon 2017 ED Clinical Summary [place] [id number] ED Clinical Summary Person Information Name: NEAL PARKER/[facility] Age: 37 Years : 1980 12:00 AM Sex: Male Language: Kinyarwanda PCP: RENE MORRELL DO Marital Status: Visit [...] 04/01/2018 1:01 PM 04/01/2018 1:01 PM ADDRESS: [address] [place] [id number] [facility] DOC NOTES: MEDICAL INFORMATION: Prescriptions Given: Prescription [...] Follow up: With: Address: When: RENE MORRELL [address] [place] [address] Business (1) In 3 days 04/04/2018 Comments: [...] stressful on the back to sit or esthetician/skin therapist one place. Do not sit, drive, or esthetician/skin therapist one place for more than 30 minutes [...] pillow under your knees. ? Only take dibg-jez-yyjmlme or prescription medicines as directed by your caregiver. Kcdj-brt-uoursad medicines to reduce pain and inflammation are [...] Document Reviewed: 07/26/2014 ExitCare? Patient Information ?2015 [employer]. This information is not intended to replace [...] the first months of treatment. Only take vbrt-vry-hkccxlp or prescription medicines for pain, discomfort, or [...] Document Reviewed: 07/17/2009 ExitCare? Patient Information ?2015 [employer]. This information is not intended to replace advice given to you by your health care provider. Make sure you discuss any questions you have with your health care provider. Normal [facility] ED Patient Summaryon 018 ED Patient Summary [place] [id number] Patient Discharge Instructions Person Information Name: NEAL PARKER Age: 37 Years Arrival Date: 04/01/2018 11:05 AM Discharge Diagnosis: Lumbosacral pain Primary Care Physician: RENE MORRELL DO Provider Information Primary Provider: Lashay Li DO Advanced Crime Analyst:Abdelrahman Olvera PA-C The exam and treatment you received in the Emergency Department were for an urgent problem and are not intended as complete care. It is important that you follow up with a doctor, nurse practitioner, or physician?s engineer assistant for ongoing care. If your symptoms [...] Follow-up Instructions: With: Address: When: RENE MORRELL [address] [place] [phone] Business (1) In 3 days 04/04/2018 Comments: [...] opioids can be used to help relieve mfpqldsc-nn-xjfyha pain and are often prescribed following a [...] struggling with addiction, tell your health director career services and ask for guidance or call SAMHSA?S National Helpline at 9-853-409-HELP. v Source: US Department of Health and Human Services/Center for Disease Control & Prevention [facility] Medications Given: Medication Dose Route [...] Comment: Pharmacy Information: Thank you for choosing [facility] Patient Education Materials: Radicular Pain Radicular [...] the first months of treatment. Only take cjpq-izp-gornbke or prescription medicines for pain, discomfort, or [...] Document Reviewed: 07/17/2009 ExitCare? Patient Information ?2015 [employer]. This information is not intended to replace [...] stressful on the back to sit or esthetician/skin therapist one place. Do not sit, drive, or esthetician/skin therapist one place for more than 30 minutes [...] pillow under your knees. ? Only take rjmh-dpx-mrbzfvd or prescription medicines as directed by your caregiver. Kqsp-gnw-eqjauqx medicines to reduce pain and inflammation are [...] Document Reviewed: 07/26/2014 ExitCare? Patient Information ?2015 [employer]. This information is not intended to replace advice given to you by your health care provider. Make sure you discuss any questions you have with your health care provider. ELENA Bolden RUSSELL , have received the following patient education materials/instruction s and have verbalized understanding: Patient Education Materials: Radicular Pain; Back Pain, Adult Follow-up Instructions: With: Address: When: RENE SONISIL [address] [place] [address] Business (1) In 3 days 04/04/2018 Comments: [...] Signature Date Clinician/Nurse Signature Date 04/01/18 13:01:03 [facility] Progress Note-Nurseon 2017 Protein mass [...] . No further needs at this time. [facility] XR Spine Lumbosacral Minimum 4 [...] MD Transcribed by: DARSHAN Technologist: DEAN Abebe [facility] Vital Signs Date Time Vital Sign Value Performing Clinician Facility 04-05-2024 10:30-0500 Body temperature 98.5 [degF] Maribeth Vuong DO Work Phone: [facility] 04-05-2024 10:30-0500 Body weight 109.03 kg Maribeth Vuong DO Work Phone: [facility] 04-05-2024 10:30-0500 Diastolic blood pressure 78 mm[Hg] Maribeth Vuong DO Work Phone: [facility] 04-05-2024 10:30-0500 Heart rate 110 /min Maribeth Vuong DO Work Phone: [facility] 04-05-2024 10:30-0500 Respiratory rate 18 /min Maribeth Vuong DO Work Phone: [facility] 04-05-2024 10:30-0500 SaO2% (BldA) [Mass fraction] 95 % Maribeth Vuong DO Work Phone: [facility] 04-05-2024 10:30-0500 Systolic blood pressure 126 mm[Hg] Maribeth Woodymer DO Work Phone: [facility] 03-18-2024 12:56-0500 Diastolic blood pressure 77 mm[Hg] Maribeth Woodymer DO Work Phone: [facility] 03-18-2024 12:56-0500 Heart rate 77 /min Maribeth Vuong DO Work Phone: [facility] 03-18-2024 12:56-0500 Respiratory rate 16 /min Maribeth Vuong DO Work Phone: [facility] 03-18-2024 12:56-0500 SaO2% (BldA) [Mass fraction] 95 % Maribeth Vuong DO Work Phone: [facility] 03-18-2024 12:56-0500 Systolic blood pressure 128 mm[Hg] Maribeth Vuong DO Work Phone: [facility] 03-18-2024 12:12-0500 Body temperature 97 [degF] Maribeth Vuong DO Work Phone: [facility] 03-18-2024 07:54-0500 Body height 175.26 cm Maribeth Vuong DO Work Phone: [facility] 03-18-2024 07:54-0500 Body weight 108.4 kg Maribeth Vuong DO Work Phone: [facility] 01-16-2024 07:45-0400 Body height 177.8 cm [facility] 01-16-2024 07:45-0400 Body mass index (BMI) [Ratio] 36.7 kg/m2 [facility] 01-16-2024 07:45-0400 Body weight 116.11 kg [facility] 01-16-2024 07:45-0400 Diastolic blood pressure 88 mm[Hg] [facility] 01-16-2024 07:45-0400 Heart rate 96 /min [facility] 01-16-2024 07:45-0400 SaO2% (BldA) [Mass fraction] 97 % [facility] 01-16-2024 07:45-0400 Systolic blood pressure 128 mm[Hg] [facility] 09-15-2023 10:19-0400 Body height 177.8 cm [facility] 09-15-2023 10:19-0400 Body mass index (BMI) [Ratio] 37.3 kg/m2 [facility] 09-15-2023 10:19-0400 Body weight 117.93 kg [facility] 09-15-2023 10:19-0400 Diastolic blood pressure 84 mm[Hg] [facility] 09-15-2023 10:19-0400 Heart rate 88 /min [facility] 09-15-2023 10:19-0400 SaO2% (BldA) [Mass fraction] 97 % [facility] 09-15-2023 10:19-0400 Systolic blood pressure 124 mm[Hg] [facility] 07-21-2023 07:59-0400 Body height 177.8 cm DO Maribeth Woodymer Work Phone: [facility] 07-21-2023 07:59-0400 Body mass index (BMI) [Ratio] 40.1 kg/m2 DO Maribeth Carolann Work Phone: [facility] 07-21-2023 07:59-0400 Body weight 127 kg DO Maribeth Carolann Work Phone: [facility] 07-21-2023 07:59-0400 Diastolic blood pressure 86 mm[Hg] DO Maribeth Vuong Work Phone: [facility] 07-21-2023 07:59-0400 Heart rate 76 /min DO Maribeth Carolann Work Phone: [facility] 07-21-2023 07:59-0400 SaO2% (BldA) [Mass fraction] 98 % DO Maribeth Vuong Work Phone: [facility] 07-21-2023 07:59-0400 Systolic blood pressure 128 mm[Hg] DO Maribeth Vuong Work Phone: [facility] 01-17-2023 09:00-0400 Body height 177.8 cm Maribeth Vuong Other [employer] Other 01-17-2023 09:00-0400 Body mass index (BMI) [Ratio] 39.17 kg/m2 Maribeth Vuong Other [employer] Other 01-17-2023 09:00-0400 Body temperature 97.7 [degF] Maribeth Carolann Other [employer] Other 01-17-2023 09:00-0400 Body weight 123.83 kg Maribeth Carolann Other [employer] Other 01-17-2023 09:00-0400 Diastolic blood pressure 78 mm[Hg] Maribeth Vuong Other [employer] Other 01-17-2023 09:00-0400 SaO2% (BldA) [Mass fraction] 98 % Maribeth Vuong Other [employer] Other 01-17-2023 09:00-0400 Systolic blood pressure 112 mm[Hg] Maribeth Vuong Other [employer] Other 12-18-2022 09:45-0400 Body height 177.8 cm Maribeth Vuong Other [employer] Other 12-18-2022 09:45-0400 Body mass index (BMI) [Ratio] 37.73 kg/m2 Maribeth Woodymer Other [employer] Other 12-18-2022 09:45-0400 Body weight 119.3 kg Maribeth Woodymer Other [employer] Other 12-18-2022 09:45-0400 Diastolic blood pressure 86 mm[Hg] Maribeth Carolann Other [employer] Other 12-18-2022 09:45-0400 Respiratory rate 18 /min Maribeth Carolann Other [employer] Other 12-18-2022 09:45-0400 SaO2% (BldA) [Mass fraction] 95 % Maribeth Carolann Other [employer] Other 12-18-2022 09:45-0400 Systolic blood pressure 126 mm[Hg] Maribeth Carolann Other [employer] Other 12-12-2022 08:00-0400 Body height 177.8 cm Maribeth Carolann Other [employer] Other 12-12-2022 08:00-0400 Body mass index (BMI) [Ratio] 37.73 kg/m2 Maribeth Carolann Other [employer] Other 12-12-2022 08:00-0400 Body temperature 98.5 [degF] Maribeth Vuong Other [employer] Other 12-12-2022 08:00-0400 Body weight 119.3 kg Maribeth Vuong Other [employer] Other 12-12-2022 08:00-0400 Diastolic blood pressure 102 mm[Hg] Maribeth Vuong Other [facility] [employer] Other 12-12-2022 08:00-0400 SaO2% (BldA) [Mass fraction] 96 % Maribeth Vuong Other [facility] [employer] Other 12-12-2022 08:00-0400 Systolic blood pressure 150 mm[Hg] Maribeth Vuong Other [facility] [employer] Other 09-26-2022 10:22-0400 Diastolic blood pressure 108 mm[Hg] DO Maribeth Vuong Work Phone: [facility] 09-26-2022 10:22-0400 Heart rate 74 /min DO Maribeth Vuong Work Phone: [facility] 09-26-2022 10:22-0400 Respiratory rate 16 /min DO Maribeth Vuong Work Phone: [facility] 09-26-2022 10:22-0400 SaO2% (BldA) [Mass fraction] 98 % DO Maribeth Vuong Work Phone: [facility] 09-26-2022 10:22-0400 Systolic blood pressure 156 mm[Hg] DO Maribeth Vuong Work Phone: [facility] 09-26-2022 08:26-0400 Body height 175.26 cm DO Maribeth Vuong Work Phone: [facility] 09-26-2022 08:26-0400 Body temperature 98.5 [degF] DO Maribeth Vuong Work Phone: [facility] 09-26-2022 08:26-0400 Body weight 113.39 kg DO Maribeth Vuong Work Phone: [facility] 09-11-2022 09:45-0400 Body height 177.8 cm Maribeth Carolann Other [employer] Other 09-11-2022 09:45-0400 Body mass index (BMI) [Ratio] 35.37 kg/m2 Maribeth Carolann Other [employer] Other 09-11-2022 09:45-0400 Body weight 111.81 kg Maribeth Carolann Other [employer] Other 09-11-2022 09:45-0400 Diastolic blood pressure 88 mm[Hg] Maribeth Vuong Other [employer] Other 09-11-2022 09:45-0400 Respiratory rate 18 /min Maribeth Vuong Other [employer] Other 09-11-2022 09:45-0400 SaO2% (BldA) [Mass fraction] 98 % Maribeth Carolann Other [employer] Other 09-11-2022 09:45-0400 Systolic blood pressure 142 mm[Hg] Maribeth Vuong Other [employer] Other 07-24-2022 10:30-0400 Body height 177.8 cm Igor Orr Other [employer] Other 07-24-2022 10:30-0400 Body mass index (BMI) [Ratio] 35.58 kg/m2 Igor Orr Other [employer] Other 07-24-2022 10:30-0400 Body weight 112.49 kg Igor Orr Other [employer] Other 07-24-2022 10:30-0400 Diastolic blood pressure 132 mm[Hg] Igor Orr Other [employer] Other 07-24-2022 10:30-0400 Systolic blood pressure 187 mm[Hg] Igor Orr Other [employer] Other 07-15-2022 12:15-0400 Body height 177.8 cm Maribeth Vuong Other [employer] Other 07-15-2022 12:15-0400 Body mass index (BMI) [Ratio] 35.58 kg/m2 Maribeth Vuong Other [employer] Other 07-15-2022 12:15-0400 Body temperature 98.1 [degF] Maribeth Vuong Other [employer] Other 07-15-2022 12:15-0400 Body weight 112.49 kg Maribeth Vuong Other [employer] Other 07-15-2022 12:15-0400 Diastolic blood pressure 110 mm[Hg] Maribeth Vuong Other [employer] Other 07-15-2022 12:15-0400 SaO2% (BldA) [Mass fraction] 97 % Maribeth Vuong Other [employer] Other 07-15-2022 12:15-0400 Systolic blood pressure 156 mm[Hg] Maribeth Vuong Other [employer] Other 01-04-2022 12:15-0400 Body height 177.8 cm Maribeth Vuong Other [employer] Other 01-04-2022 12:15-0400 Body mass index (BMI) [Ratio] 34.39 kg/m2 Maribeth Carolann Other [employer] Other 01-04-2022 12:15-0400 Body weight 108.73 kg Maribeth Carolann Other [employer] Other 01-04-2022 12:15-0400 Diastolic blood pressure 86 mm[Hg] Maribeth Vuong Other [employer] Other 01-04-2022 12:15-0400 Respiratory rate 18 /min Maribeth Vuong Other [employer] Other 01-04-2022 12:15-0400 SaO2% (BldA) [Mass fraction] 98 % Maribeth Vuong Other [employer] Other 01-04-2022 12:15-0400 Systolic blood pressure 136 mm[Hg] Maribeth Vuong Other [employer] Other 06-22-2021 10:00-0400 Body height 177.8 cm Maribeth Vuong Other [employer] Other 06-22-2021 10:00-0400 Body mass index (BMI) [Ratio] 34.16 kg/m2 Maribeth Vuong Other [employer] Other 06-22-2021 10:00-0400 Body weight 108 kg Maribeth Vuong Other [employer] Other 06-22-2021 10:00-0400 Diastolic blood pressure 78 mm[Hg] Maribeth Vuong Other [employer] Other 06-22-2021 10:00-0400 Respiratory rate 18 /min Maribeth Vuong Other [employer] Other 06-22-2021 10:00-0400 SaO2% (BldA) [Mass fraction] 95 % Maribeth Vuong Other [employer] Other 06-22-2021 10:00-0400 Systolic blood pressure 118 mm[Hg] Maribeth Vuong Other [employer] Other 03-08-2021 12:15-0500 Body height 177.8 cm Charles Solares Other [employer] Other 03-08-2021 12:15-0500 Body mass index (BMI) [Ratio] 33.72 kg/m2 Charles Solares Other [employer] Other 03-08-2021 12:15-0500 Body weight 106.6 kg Charles Solares Other [employer] Other 02-12-2021 11:00-0500 Body height 177.8 cm Maribeth Vuong Other [employer] Other 02-12-2021 11:00-0500 Body mass index (BMI) [Ratio] 33.37 kg/m2 Maribeth Vuong Other [employer] Other 02-12-2021 11:00-0500 Body temperature 98.3 [degF] Maribeth Vuong Other [employer] Other 02-12-2021 11:00-0500 Body weight 105.51 kg Maribeth Vuong Other [employer] Other 02-12-2021 11:00-0500 Diastolic blood pressure 88 mm[Hg] Maribeth Vuong Other [employer] Other 02-12-2021 11:00-0500 Respiratory rate 18 /min Maribeth Vuong Other [employer] Other 02-12-2021 11:00-0500 SaO2% (BldA) [Mass fraction] 99 % Maribeth Vuong Other [employer] Other 02-12-2021 11:00-0500 Systolic blood pressure 134 mm[Hg] Maribeth Vuong Other [employer] Other 02-01-2021 11:45-0400 Body height 177.8 cm Maribeth Vuong Other [employer] Other 02-01-2021 11:45-0400 Body mass index (BMI) [Ratio] 35.48 kg/m2 Maribeth Vuong Other [employer] Other 02-01-2021 11:45-0400 Body temperature 98.2 [degF] Maribeth Vuong Other [employer] Other 02-01-2021 11:45-0400 Body weight 112.18 kg Maribeth Vuong Other [employer] Other 02-01-2021 11:45-0400 Diastolic blood pressure 86 mm[Hg] Maribeth Vuong Other [employer] Other 02-01-2021 11:45-0400 Respiratory rate 18 /min Maribeth Vuong Other [employer] Other 02-01-2021 11:45-0400 SaO2% (BldA) [Mass fraction] 97 % Maribeth Vuong Other [employer] Other 02-01-2021 11:45-0400 Systolic blood pressure 136 mm[Hg] Maribeth Vuong Other [place] [employer] Other Encounters Encounter Date Encounter Type Care Provider Facility Start: 05-05-2024 End: 05-05-2024 Patient encounter procedure Maribeth Vuong DO Work Phone: [facility] Work Phone: Start: 05-05-2024 End: 05-05-2024 ambulatory Maribeth Vuong DO Work Phone: [facility] Work Phone: Start: 04-06-2024 End: 04-06-2024 Patient encounter procedure Maribeth Vuong DO Work Phone: [facility] Work Phone: Start: 04-05-2024 End: 04-05-2024 Patient encounter procedure Maribeth Vuong DO Work Phone: [facility] Work Phone: Start: 03-30-2024 End: 03-30-2024 Patient encounter procedure Maribeth Vuong DO Work Phone: [facility] Work Phone: Start: 03-18-2024 Non-patient / Non-visit Maribeth Vuong DO Work Phone: [facility] Work Phone: Start: 03-18-2024 End: 03-18-2024 Admission to same day surgery center Maribeth Vuong DO Work Phone: [facility] [place] Start: 03-18-2024 End: 03-18-2024 ambulatory Nisha Villanueva Facility:[facility] Start: 03-08-2024 End: 03-08-2024 Patient encounter procedure Maribeth Vuong DO Work Phone: [facility] Work Phone: Start: 03-08-2024 End: 03-08-2024 ambulatory Nisha Villanueva Facility:[facility] Start: 03-08-2024 Encounter for preprocedural laboratory examination Nisha Villanueva [facility] Start: 02-24-2024 End: 02-24-2024 ambulatory [facility] [place] Work Phone: Start: 02-24-2024 End: 02-24-2024 Patient encounter procedure [facility] Work Phone: Start: 01-16-2024 End: 01-16-2024 ambulatory [facility] Work Phone: Start: 01-16-2024 End: 01-16-2024 Patient encounter procedure [facility] Work Phone: Start: 09-30-2023 End: 10-02-2023 Evaluation and management of inpatient Diaz Valdovinos MD Facility:[facility] Start: 09-25-2023 End: 09-25-2023 ambulatory Diaz Valdovinos MD Facility:[facility] Start: 09-15-2023 End: 09-15-2023 ambulatory [facility] Work Phone: Start: 09-15-2023 End: 09-15-2023 Patient encounter procedure [facility] [place] Work Phone: Start: 09-10-2023 End: 09-10-2023 ambulatory Diaz Valdovinos MD Facility:[facility] Start: 07-21-2023 End: 07-21-2023 ambulatory DO Maribeth Vuong Work Phone: [facility] Work Phone: Start: 07-21-2023 End: 07-21-2023 Patient encounter procedure DO Maribeth Vuong Work Phone: [facility] [place] Work Phone: Start: 06-03-2023 End: 06-03-2023 ambulatory Nisha Villanueva Facility:[facility] Start: 06-03-2023 End: 06-03-2023 Patient encounter procedure DO Maribeth Vuong Work Phone: [facility] Work Phone: Start: 05-29-2023 Non-patient / Non-visit DO Maribeth Carolann Work Phone: [facility] Work Phone: Start: 03-13-2023 End: 03-13-2023 ambulatory Maribeth Vuong Other [employer] Other Start: 03-13-2023 Telephone encounter Maribeth Mercer [facility] Start: 02-05-2023 End: 02-05-2023 ambulatory Maribeth Woodymer Other [employer] Other Start: 02-05-2023 Telephone encounter Maribeth [facility] Start: 01-17-2023 End: 01-17-2023 ambulatory Maribeth Vuong Other [employer] Other Start: 01-17-2023 Encounter for genera l adult medical examination without abnormal findings Maribeth Vuong [facility] [place] Start: 01-17-2023 Periodic preventive med est patient 40-64yrs Maribeth Vuong [facility] [place] Start: 09-13-2023 (Procedure) Short Maribeth Vuong [facility] [place] Start: 12-18-2022 End: 12-18-2022 ambulatory Maribeth Vuong Other [employer] Other Start: 12-12-2022 End: 12-12-2022 ambulatory Maribeth Vuong Other [employer] Other Start: 12-12-2022 Office outpatient visit 15 minutes Maribeth Vuong [facility] [place] Start: 12-05-2022 End: 12-05-2022 ambulatory Maribeth Vuong Other [employer] Other Start: 12-05-2022 Telephone encounter Maribeth Carolann [facility] [place] Start: 09-28-2022 End: 09-28-2022 ambulatory Nash Cardenas Other [employer] Other Start: 09-28-2022 Telephone encounter Nash Cardenas [facility] Start: 09-26-2022 End: 09-26-2022 Admission to same day surgery center DO Maribeth Vuong Work Phone: [facility] Work Phone: Start: 09-26-2022 End: 09-26-2022 ambulatory DO Maribeth Williamson Carolann Work Phone: [facility] Work Phone: Start: 09-11-2022 (Procedure) Oralia Vuong [facility] [place] Start: 09-11-2022 End: 09-11-2022 ambulatory Maribeth Vuong Other [employer] Other Start: 09-10-2022 End: 09-10-2022 ambulatory Maribeth Vuong Other [employer] Other Start: 09-10-2022 Telephone encounter Maribeth [facility]cer [facility] [place] Start: 09-03-2022 End: 09-03-2022 ambulatory NARENDRANATH LAKSHMIPATHY . Facility:[facility] Start: 08-20-2022 End: 08-20-2022 ambulatory DO Maribeth Williamson Carolann Work Phone: [facility] Work Phone: Start: 08-20-2022 End: 08-20-2022 Patient encounter procedure DO Maribeth Voung Work Phone: [facility] [address] Start: 08-16-2022 End: 08-17-2022 ambulatory NARENDRANATH LAKSHMIPATHY . Facility:[facility] Start: 08-02-2022 End: 08-02-2022 ambulatory Maribeth Vuong Other [employer] Other Start: 08-02-2022 Telephone encounter Maribeth [facility] [place] Start: 07-30-2022 End: 07-30-2022 ambulatory NARENDRANATH LAKSHMIPATHY . Facility:[facility] Start: 07-24-2022 End: 07-24-2022 ambulatory Igor Orr Other [employer] Other Start: 07-24-2022 Office outpatient ne w 30 minutes Igor Orr [facility] Start: 07-23-2022 End: 07-24-2022 ambulatory NARENDRANATH LAKSHMIPATHY . Facility:[facility] Start: 07-16-2022 End: 07-16-2022 ambulatory Maribethwaldo Vuong Other [employer] Other Start: 07-16-2022 Telephone encounter Maribeth [facility] [place] Start: 07-15-2022 Office outpatient visit 25 minutes Maribeth Vuong [facility] [place] Start: 07-15-2022 Telephone encounter Maribeth Carolann [facility] [place] Start: 07-15-2022 End: 07-15-2022 ambulatory DO Maribeth Vuong Work Phone: [employer] Other Start: 07-15-2022 End: 07-15-2022 Patient encounter procedure DO Maribeth Vuong Work Phone: [facility] Start: 07-12-2022 End: 07-12-2022 ambulatory DO Maribeth Vuong Work Phone: [facility] Work Phone: Start: 07-12-2022 End: 07-12-2022 Patient encounter procedure DO Maribeth Vuong Work Phone: [facility] [place] Work Phone: Start: 07-02-2022 End: 07-03-2022 ambulatory NARRACHELATH ABBIMIARNEL . Facility:[facility] Start: 07-02-2022 End: 07-03-2022 ambulatory VANE MERCADO . Facility:[facility] Start: 06-26-2022 End: 06-27-2022 ambulatory BRIT SCHUSTER . Facility:[facility] Start: 06-13-2022 End: 06-14-[address] JESSICA JOEL . Facility:[facility] Start: 03-14-2022 End: 03-15-[address] JESSICA JOEL . Facility:[facility] Start: 02-19-2022 End: 02-19-[address] JESSICA JEOL . Facility:[facility] Start: 02-07-2022 End: 02-08-[address] JESSICA JOEL . Facility:[facility] Start: 01-04-2022 End: 01-04-2022 ambulatory Maribeth Vuong Other [employer] Other Start: 01-04-2022 Encounter for genera l adult medical examination without abnormal findings Maribeth Vuong [facility] [place] Start: 01-04-2022 Periodic preventive med est patient 40-64yrs Maribeth FARMER [facility] [place] Start: 12-13-2021 End: 12-14-[address] JESSICA JOEL . Facility:[facility] Start: 10-31-2021 End: 11-01-[address] JESSICA JOEL . Facility:[facility] Start: 10-03-2021 End: 10-04-2021 ambulatory BRIT SCHUSTER . Facility:[facility] Start: 09-29-2021 End: 09-29-2021 ambulatory MARIBETH VUONG Facility:[facility] Start: 08-17-2021 End: 08-17-2021 ambulatory Charles Solares Other [employer] Other Start: 08-17-2021 Telephone encounter Charles Solares [facility] [place] Start: 08-07-2021 End: 08-07-2021 ambulatory Charles Solares Other [employer] Other Start: 08-07-2021 Telephone encounter Charles Solares [facility] [facility] Start: 07-13-2021 End: 07-13-2021 ambulatory Maribeth Vuong Other [employer] Other Start: 07-13-2021 Telephone encounter Maribeth Vuong [facility] [place] Start: 07-09-2021 End: 07-09-2021 ambulatory Charles Solares Other [employer] Other Start: 07-09-2021 Office outpatient visit 25 minutes Charles Solares [facility] [place] Start: 06-22-2021 End: 06-22-2021 ambulatory Maribeth Vuong Other [employer] Other Start: 06-22-2021 Office outpatient visit 15 minutes Maribeth Vuong [facility] [place] Start: 06-06-2021 End: 06-06-2021 ambulatory Charles Solares Other [employer] Other Start: 06-06-2021 Office outpatient visit 25 minutes Charles Solares [facility] [place] Start: 05-29-2021 End: 05-29-2021 ambulatory Maribeth Vuong Other [employer] Other Start: 05-29-2021 Telephone encounter Maribeth Mercer [facility] [place] Start: 05-22-2021 End: 05-22-2021 ambulatory Maribeth Vuong Other [employer] Other Start: 05-22-2021 Telephone encounter Maribeth Mercer [facility] [place] Start: 05-21-2021 End: 05-21-2021 ambulatory Maribeth Vuong Other [employer] Other Start: 05-21-2021 Telephone encounter Maribeth [facility] [place] Start: 05-08-2021 End: 05-08-2021 ambulatory Charles Davider Other [employer] Other Start: 05-08-2021 Office outpatient visit 25 minutes Charles Felter [facility] [place] Start: 04-12-2021 End: 04-12-2021 ambulatory Charles Felter Other [employer] Other Start: 04-12-2021 Office outpatient visit 25 minutes Charles Felter [facility] [place] Start: 03-08-2021 End: 03-08-2021 ambulatory Charles Felter Other [employer] Other Start: 03-08-2021 Office outpatient visit 25 minutes Charles Felter [facility] [place] Start: 02-28-2021 End: 02-28-2021 ambulatory Maribeth Vuong Other [employer] Other Start: 02-28-2021 Telephone encounter Maribeth Mercer [facility] [place] Start: 02-12-2021 End: 02-12-2021 ambulatory Maribeth Vuong Other [employer] Other Start: 02-12-2021 Office outpatient visit 15 minutes Maribeth Vuong [facility] [place] Start: 02-05-2021 Office outpatient visit 25 minutes Charles Davidjosué [facility] [place] Start: 02-01-2021 Office outpatient visit 15 minutes Maribeth Vuong [facility] [place] Start: 01-08-2021 Office outpatient visit 25 minutes Charles Solares [facility] [place] Start: 06-09-2018 End: 06-10-2018 Patient encounter procedure PHI CADENASURENDRA [facility] Start: 04-01-2018 End: 04-01-2018 Emergency department patient visit Lashay Li Facility:[facility] Procedures Date Procedure Procedure Detail Performing Clinician Start: 05-05-2024 Plain X-ray of left hand Maribeth Vuong DO Work Phone: Start: 03-18-2024 Arthroplasty of join t of the thumb Maribeth Vuong DO Work Phone: Start: 03-18-2024 Plain X-ray of left thumb Maribeth Vuong DO Work Phone: Start: 06-03-2023 Plain X-ray of left hand DO Maribeth Vuong Work Phone: Start: 09-26-2022 Colonoscopy DO Maribeth Vuong Work Phone: Start: 07-15-2022 Diagnostic radiograp hy of abdomen DO Maribeth Vuong Work Phone: Plan of Treatment Date Care Activity Detail Author Start: 05-05-2024 Plain X-ray of left hand XR hand LT min 3V* [facility] Start: 05-05-2024 XR Hand - left GE 3 Views [facility] Start: 03-18-2024 [facility] Start: 09-26-2022 [facility] Patient Education [facility] Work Phone: Patient referral [facility] Work Phone: [facility] Immunizations Immunization Date Immunization Notes Care Provider Macrina brunson 12-07-2020 COVID-19 Vaccine Corey - Documentation Purposes Only Charles Solares Other [facility] 03-25-2019 Depo-Medrol 80 mg Charles lewis Other [employer] Other 12-11-2017 Kenalog -40 mg Charles Solares Other [employer] Other 05-12-1997 diphtheria and tetan us toxoids, adsorbed for pediatric use [facility] Payers Date Payer Category Payer Unknown 2023 Self-pay [id number] 1979 Unknown [id number] 2.16.84 [id number] 1979 Unknown [id number] 2.16.84 0.1.364828.3.579.2.593 1979 Unknown [id number] 2.16.84 0.1.608119.3.579.2.593 1979 Unknown [id number] 2.16.84 0.1.155998.3.579.2.593 1979 Unknown [id number] 2.16.84 0.1.907130.3.579.2.593 1979 Unknown [id number] 2.16.84 0.1.419137.3.579.2.593 1979 Unknown [id number] 2.16.84 0.1.580428.3.579.2.593 1979 Unknown [id number] 2.16.84 0.1.875386.3.579.2.593 1979 Unknown [id number] 2.16.84 0.1.055407.3.579.2.593 1979 Unknown [id number] 2.16.84 0.1.663105.3.579.2.593 1979 Unknown [id number] 2.16.84 0.1.949142.3.579.2.593 1979 Unknown [id number] 2.16.84 0.1.866475.3.579.2.593 1979 Unknown [id number] 2.16.84 0.1.723857.3.579.2.593 1979 Unknown [id number] 2.16.84 0.1.032969.3.579.2.593 1979 Unknown [id number] 2.16.84 0.1.222084.3.579.2.593 1979 Unknown [id number] 2.16.84 0.1.393783.3.579.2.593 1979 Unknown [id number] 2.16.84 0.1.199501.3.579.2.593 1979 Unknown [id number] 2.16. 840.1.512596.3.579.2.196 1979 Unknown [id number] 2.16. 840.1.118207.3.579.2.196 1979 Unknown [id number] 2.16. 840.1.640372.3.579.2.196 1959 Medicaid [id number] 1959 Unknown [id number] 1959 Unknown [id number] Blue Cross Blue Shield [id number] [id number] Unknown [facility] [id number] Unknown [id number] 2.16.8 40.1.422604.3.579.2.531 Unknown [id number] 2.16.8 40.1.791160.3.579.2.531 Unknown [id number] 2.16.8 40.1.226792.3.579.2.531 Unknown [id number] 2.16.8 40.1.723558.3.579.2.531 Social History Date Type Detail Facility Unknown if ever smoked [employer] Other Sex Assigned At Sex Assigned At Bir th [employer] Other Start: 04-13-2019 Tobacco smoking status NMIS Smoker (finding) [facility] Start: 1980 Sex Assigned At Male F [facility] Start: 09-26-2022 Tobacco smoking status NMIS Current some day smoker [facility] Start: 01-16-2024 End: 03-18-2024 Tobacco smoking status NMIS Ex-smoker (finding) [facility] Start: 02-24-2024 End: 05-06-2024 Sex Male (finding) [facility] Medical Equipment Procedure Code Equipment Code Equipment Origin al Text Equipment Identifier Dates Arthroplasty, thumb Orthopaedic bone staple, non-adjustable, sterile [id number] FDA Start: 03-18-2024 Arthroplasty, thumb Orthopaedic bone staple, non-adjustable, sterile [id number] FDA Start: 03-18-2024 Goals Date Patient Goal Desired Activity /State Clinical Notes 01-08-2021 to 02-24-2024 Note Date & Type Note Facility 02-24-2024 Evaluation note Diagnosis Onset Date Resolution Osteoarthritis of carpometacarpal joint of left thumb acute February 23 8:37am Primary osteoarthritis, left hand acute February 23 2 024 8:37am Osteoarthritis of carpometacarpal joint of left thumb acute March 30 024 9:46am Primary osteoarthritis, left hand acute March 30, 2 024 9:46am URI (upper respiratory infection) noneactive April 05, 2 024 10:28am Osteoarthritis of carpometacarpal joint of left thumb acute April 06, 2 024 10:46am Other specified postprocedural states acute March 092023 10:46am Primary osteoarthritis, left hand acute April 06, 2 024 10:46am Osteoarthritis of carpometacarpal joint of left thumb acute May 05 8:30am Other specified postprocedural states acute May 052024 8:30am Primary osteoarthritis, left hand acute May 05 8:30am [facility] Work Phone: 1(291) 694-858810-11-2024 Evaluation note* Diagnosis Onset Date Resolution Status Admit Date BPH (benign prostatic hyperplasia) chronic January 15 8:04am Cigarette nicotine dependenc e in remission chronic January 15 8:04am Erectile dysfunction due to diseases classified elsewhere chronic Oc tober 2023 8:04am HTN (hypertension) chronic Octobe r 2023 8:04am Other spondylosis with radiculopathy, lumbar region chronic Oct mundo 2023 8:04am Well adult noneactive January 16, 2024 8:04am Osteoarthritis of carpometacarpal joint of left thumb acute February 23, 2 024 8:37am Primary osteoarthritis, left hand acute February 23, 024 8:37am [facility] Work Phone: 1(212) 865-627506-27-2024 NoteDate of Admission 09/30/2023 Date of Discharge [...] by Homar Rodgers MD, Jr 10/02/23 05:07 [facility] 09-30-2023 NoteOperative Report DATE OF PROCEDURE: [...] [employer] SURGEON: Diaz Valdovinos MD CENTER H[employer] RESOURCES MANAGER: MAGGIE Duran PA-C assisted throughout the procedure [...] dural tear, nerve root injury, nonunion, DVT/PE, IL, stroke, etc. All questions were answered. Informed [...] cord monitoring remained stable (more content not included)...[facility]06-24-2024 NoteChief Complaint Back pain History of Present Illness The patient is a 42-year-old male with complaints of constant low back pain that radiates to shooting pain into his buttocks and perineal region, he did have pain radiating down the posterior legs but had a RFA in February, which helped with his shooting pain. He also has burning and edqa-ymm-pvsyyei along the right lateral foot and toes. [...] had a prior L5-S1 posterior spinal fusion [id number]. Review of Systems Constitutional: No fevers, chills [...] CT and MRI Lumbar Spine done at [place] Electronically signed by Qamar Recio PA-C 09/29/23 09:58 EDT Electronically signed by [facility] PLEITEZDiaz [facility]23 [facility]* Encounter Date Diagnosis Assessment Notes Treatment Notes Treatment Clinical Notes Mar, Primary osteoarthrit is of both first carpometacarpal joints (ICD-10 - M18.0) [employer] Other 11-01-2023 Evaluation note* Encounter Date Diagnosis Assessment Notes Treatment Notes Treatment Clinical Notes Feb, Primary hypertension (ICD-10 - I10) [facility] Other 10-13-2023 Evaluation note* Encounter Date Diagnosis [...] Jan, Medication monitoring encounter (ICD-10 - Z51.81) [facility] Other 09-13-2023 Evaluation note* Encounter Date Diagnosis Assessment Notes Treatment Notes Treatment Clinical Notes Dec, Primary osteoarthrit is of first carpometacarpal joint of left hand (ICD-10 - M18.12) [employer] Other 09-07-2023 Evaluation note* Encounter Date Diagnosis [...] he has any issues with the medicine. [employer] Other 06-22-2023 Procedure [facility]06-07-2023 Evaluation note* Encounter Date Diagnosis Assessment Notes Treatment Notes Treatment Clinical Notes Sep, Primary osteoarthrit is of both first carpometacarpal joints (ICD-10 - M18.0) [facility] Other 04-19-2023 Evaluation note* Encounter Date Diagnosis [...] bowel habits with increasing constipation, hematochezia and amanad blood and accidents, recommendation for colonoscopy to rule out luminal etiologies made [employer] Other 04-18-2023 NoteCONSULTATION CONSULTATION DATE: 07/23/2022 TO: [...] our patients to inform us about any rxcz-arw-kyauogt medications or herbal remedies/nutritional supplements/alternative remedies. 2. [...] treatment options with their primary care provider.[facility] [id number] Evaluation note * Encounter Date Diagnosis Assessment Notes Treatment Notes Treatment Clinical Notes Jul, Generalized abdominal pain (ICD-10 - R10.84) [employer] Other 04-10-2023 Evaluation note* Encounter Date Diagnosis [...] Jul, Medication monitoring encounter (ICD-10 - Z51.81) [facility] Other 04-10-2023 Evaluation note* Encounter Date Diagnosis Assessment Notes Treatment Notes Treatment Clinical Notes Jul, Slow transit constipation (ICD-10 - K59.01) [facility] Other 03-28-2023 NoteCONSULTATION CONSULTATION DATE: 07/02/2022 TO: [...] as well as his lumbar spine films.[facility] [id number] Note CONSULTATION CONSULTATION DATE: 06/13/2022 HISTORY OF [...] relief. He has been seen both at [place] and [facility] in the past, and received procedures there. [...] under the care of Dr. Joshua in [place]. He is unwilling to try Lyrica due [...] Patient is in agreement to this plan.[facility] [id number] NoteCONSULTATION CONSULTATION DATE: 03/14/2022 HISTORY OF PRESENT [...] in three months' time, unless otherwise indicated.[facility] [id number] NoteCONSULTATION CONSULTATION DATE: 02/07/2022 HISTORY OF PRESENT [...] followed up in the office post procedure.[facility] [id number] Evaluation note* Encounter Date Diagnosis Assessment Notes [...] Dec, Prostate cancer screening (ICD-10 - Z12.5) [facility] Other 09-08-2022 NoteCONSULTATION CONSULTATION DATE: 12/13/2021 HISTORY [...] of care and all questions were answered.[facility] [id number] Note CONSULTATION PROCEDURE DATE: 10/31/2021 PREOPERATIVE DIAGNOSIS: [...] will be followed up in the office.[facility] [id number] Note CONSULTATION CONSULTATION DATE: 10/03/2021 This is [...] and will be seen in the clinic. [facility] Signed and Approved by: BRIT SCHUSTER . 10/11/2021 16:28:00[facility]04-04-2022 Evaluation note* Encounter Date Diagnosis Assessment [...] this. Patient notes prior issues with [facility] billing department and states he is uncomfortable [...] note writ ten by Km Cervantes MA, Senior Dynamics Crm Developer. Edited and approved by Dr. Charles Solares MD. [facility] [employer] Other 03-18-2022 Evaluation note* Encounter Date Diagnosis [...] and he is to continue with it. [facility] Other 03-02-2022 Evaluation note* Encounter Date Diagnosis [...] note writ ten by Km Cervantes CMA, Senior [employer] Crm Developer. Edited and approved by Dr. Charles Solares MD. [facility] Other 02-15-2022 Evaluation note* Encounter Date Diagnosis Assessment Notes Treatment Notes Treatment Clinical Notes May, Cigarette nicotine dependence without complication (ICD-10 - F17.210) [facility] Other 02-14-2022 Evaluation note* Encounter Date Diagnosis Assessment Notes Treatment Notes Treatment Clinical Notes May, Other spondylosis with radiculopathy, lumbar region (ICD-10 - M47.26) [facility] Other 02-01-2022 Evaluation note* Encounter Date Diagnosis [...] was refilled today. Saliva sample performed through [facility] today, will await confirmatory results. Opiod contract updated at this time. May, Other chronic pain (ICD-10 - G89.29) May, Other Above note writ ten by Sonya Dawson LPN, Senior [employer] Crm Developer. Edited and approved by Dr. Charles Solares MD. [facility] Other 01-06-2022 Evaluation note* Encounter Date Diagnosis [...] note writ ten by Km Cervantes CMA, Senior [employer] Crm Developer. Edited and approved by Dr. Charles Solares MD. [facility] Other 12-02-2021 Evaluation note* Encounter Date Diagnosis [...] Above note written by Sonya Dawson LPN, Senior [employer] Crm Developer. Edited and approved by Dr. Charles Solares MD. [facility] Other 11-08-2021 Evaluation note* Encounter Date Diagnosis [...] Patient voiced understanding agrees with this plan. [facility] Other 11-01-2021 Evaluation note* Encounter Date Diagnosis [...] note writ ten by Donita Henson CMA, Senior [employer] Crm Developer. Edited and approved by Dr. Charles Solares MD. [facility] Other 10-28-2021 Evaluation note* Encounter Date Diagnosis [...] message to Dr. Solares passing this along. 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 He understands the associated risks with this medication and agrees that it provides reasonable benefit in regards to his pain control and level of function. Oxycodone Acetaminophen was refilled today. Jan, Other chronic pain (ICD-10 - G89.29) [facility] [employer] Other Evaluation noteNo InformationNortReading Hospital [facility] Other Evaluation noteNo assessment information available [facility] Work Phone: Evaluation note* Diagnosis Onset Date Resolution Status Osteoarthritis of carpometac arpal joint of left thumb acute Primary osteoarthritis, left hand acute BPH (benign prostatic hyperplasia) chronic Hemorrhoid chronic Other spondylosis with radiculopathy, lumbar region chronic Blood present in stool nonea [facility] Work Phone: Evaluation note* Diagnosis Onset Date Resolution Status BPH (benign prostatic hyperplasia) chronic Hemorrhoid chronic Other spondylosis with radiculopathy, lumbar region chronic Blood present in stool nonea ctive Other spondylosis with radiculopathy, lumbar region chronic Preoperative clearance nonea [facility] Work Phone: Evaluation note* Diagnosis Onset Date Resolution Status BPH (benign prostatic hyperplasia) chronic 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 Erectile dysfunction due to diseases classified elsewhere chronic HTN (hypertension) chronic Other spondylosis with radiculopathy, lumbar region chronic Well adult noneactive [facility] Work Phone: History and physical note Author Nash Cardenas [facility] September 26, 2022 9:39am Note Date/Time September 26, 2022 9:39 am [facility] [address] [place], [place] [id number] Gastroenterology H&P Signed Patient: Neal Parker MR#: [id number] : 1980 Acct:[id number] Age/Sex: 41 / M Adm Date: 3 Loc: Room: Type: [facility] Attending Dr: Nash Cardenas MD Copies [...] signed by Nash Cardenas MD> 09/26/[address] [facility] Work Phone: Hiszskz general Narrative - Reported* Type Description Date Medical History Hx spinal fusion Medical History Lumbar radiculopathy Medical History Trigger point Surgical History L5 S1 fusion 2014 Surgical History Left lower leg surgery (multipl e fractures) Surgical History foreign body excision right mid dle finger Hospitalization History pneumonia as Trippin In Other Hisilvs general Narrative - Reported* Type Description Date Medical History Hx spinal fusion Medical History Lumbar radiculopathy Medical History Trigger point Surgical History L5 S1 fusion 2014 Surgical History Left lower leg surgery (multipl e fractures) Surgical History foreign body excision right mid dle finger Surgical History lumbar facet nerve b lock injection - Dr. Saldivar in [place] 11/2022 Hospitalization History pneumonia as Trippin In Other Hismcph general Narrative - Reported* Type Description Date Medical History Hx spinal fusion Medical History Lumbar radiculopathy Medical History Trigger point Surgical History L5 S1 fusion 2014 Surgical History Left lower leg surgery (multipl e fractures) Surgical History foreign body excision right mid dle finger Surgical History lumbar facet nerve b lock injection - Dr. Saldivar in [place] 11/2022 Surgical History R side nerve ablation 01/2023 Hospitalization History pneumonia as Trippin In Other Hospital Discharge instructions Additional Instructions DISCHARGE [...] years. -Follow up with PCP. -Office number [phone].[facility] Work Phone: Hospital Discharge instructionsAmbulatory Orders* Disability Placard Time Frame: 01/16/24, Location: Determined By Patient [facility] Work Phone: Relouh for visit NarrativePatient here at the request of Dr. Vuong for evaluation & treatment of abdominal pain, change in bowel habits, weight loss, rectal bleeding.[employer] Other reason for visit NarrativeProcedure appt and DNR-A [facility] [employer] Other Summary Purpose Family History No Family History Records Found Relationship Condition Age at Onset Recorded Date/T lorri brother Gout Unknown Relationship Condition Age at Onset Recorded Date/T lorri brother Gout Unknown Diabetes mellitus Unknown Relationship Condition Age at Onset Recorded Date/T lorri brother Gout Unknown Diabetes mellitus Unknown brother Diabetes mellitus Unknown Gout Unknown Relationship Condition Age at Onset Recorded Date/T lorri brother Diabetes mellitus Unknown Gout Unknown Advance Directives No Advanced Directives Records Found Advance Directive Response Recorded Date/ Time Advance Directives No December 4:24pm Advance Directive Response Recorded Date/ Time Advance Directives No December 3:24pm Reason for Referral Reason Dr. Villanueva to consid er surgical options, steroid injections not providing long lasting benefit Diagnosis 1 Primary osteoarthrit is of both first carpometacarpal joints (M18.0) Referral Organization [facility] Family Nisha Luusky Referring Provider First Name Maribeth Referring Provider Last Name Carolann Referring Provider Specialty Family Prac patito Referred Organization [facility] Referred Address [address] [place],[address] Referred Provider Specialty ORTHOPEDIC S URGEON Referral Priority Routine Reason * Waiting for appt CT and KUB normal, generalized pain of unclear etiology Diagnosis 1 Generalized abdomina l pain (R10.84) Referral Organization [facility] Family Camdenin luisa [facility] Referring Provider First Name Maribeth Referring Provider Last Name Carolann Referring Provider Specialty Family Prac patito Referred Organization [facility] Gastroenterolo gy Referred Provider Dwayne Salas Referred Address [address] ,[place], [place],[address] Referred Provider Specialty Gastroentero logy Referral Priority [...] continuous use of opioids (F11.90) Referral Organization [facility] Family Nisha Luusky Referring Provider First Name Maribeth Referring Provider Last Name Carolann Referring Provider Specialty Family Prac patito Referred Organization [facility] Referred Address [address] [place] [place],[address] Referred Provider Specialty Pain Medicin e Referral Priority Routine General Notes Rebeca Vivar 11:08:53 AM >referral received and faxed Clinical Notes P- [phone]- [phone] Chief Complaint and Reason for Visit Chief [...] osteoarthritis, left hand Novemb er 2023 8:37am Chief Complaint Admit Date OP SP LT HAND PAIN February 24, 2024 8:37am Thumb Pain March 08, 2024 3 :26pm Thumb Pain March 18, 2024 7:12am Thumb Pain March 18, 2024 1:26pm 1 WK POST OP March 30, 2024 9:46am possible URI April 05, 2024 10:28am 1 week April 06, 2024 10:46am M18.12 - Unilateral primary osteoarthrit is of firs May 05, 2024 8:03am 3 WEEKS May 05, 2024 8 :30am Reason for Visit Admit Date Osteoarthritis of carpometacarpal joint of left thumb February 24, 2024 8:37am Primary osteoarthritis, left hand Novemb er 2023 8:37am Osteoarthritis of carpometacarpal joint of left thumb March 30, 2024 9:46am Primary osteoarthritis, left hand Decemb er 2023 9:46am [facility] Osteoarthritis of carpometacarpal joint of left thumb April 06, 2024 10:46am Other specified postprocedural states De cember 2023 10:46am Primary osteoarthritis, left hand Decemb er 2023 10:46am Osteoarthritis of carpometacarpal joint of left thumb May 05, 2024 8:30am Other specified postprocedural states Ja nuary 2024 8:30am Primary osteoarthritis, left hand Januar y 2024 8:30am Additional Source Comments (unrecognized sect ion and content) No Status Records FoundNo Status Records FoundNo Status Records FoundNo Status Records FoundNo Status Records Found INFORMATION SOURCE (unrecogn ized section and content) DATE CREATED AUTHOR 05/25/2018 [facility] DATE CREATED AUTHOR AUTHOR'S ORGANIZ ATION 06/11/2018 [facility] DATE CREATED AUTHOR AUTHOR'S ORGANIZ ATION 09/15/2022 [facility] DATE CREATED AUTHOR AUTHOR'S ORGANIZ ATION 10/31/2023 [facility] DATE CREATED AUTHOR AUTHOR'S ORGANIZ ATION 05/06/2024 [facility] REASON FOR VISIT (unrecogniz ed section and content) 1 MOback pain getting worse, pain management not working4 WK RECHECKDISCUSS DISABILITY OPTIONSLab results1 MO1 MONTH RECHECKCHANTIX1 month Follow upscript requestpaperwork1 MONTH FOLLOW UPCHANTIX refill/discuss back concerns1 MONTHNo InformationNo InformationPROCEDURE NOTES1 year Follow up/ AWVAbdominal Pain/ incontinencenew medication.ReferralPain ManagementB/L thumb steroid inj./ sign DNR-AORDERS PER DR Casanovaated bpelevated BP at PM in [place], no sxinjection L thumb1 year Follow upLosartan/HCTZsteroid [...] February 24, 2024 End: February 24, 2024 Team Status: Inactive Member Role Status Dates Maribeth Vuong DO Primary Care Provider Active Start: March 08, 2024 End: March 08, 2024 Nisha Villanueva MD Attending Provider Active Start: March 08, 2024 End: March 08, 2024 Team Status: Inactive Member Role Status Dates Maribeth Vuong DO Primary Care Provider Active Start: March 18, 2024 End: March 18, 2024 Nisha Villanueva MD Attending Provider Active Start: March 18, 2024 End: March 18, 2024 Team Status: Active Member Role Status Dates Maribeth Teri Vuong DO Primary Care Provider Active Start: March 18, 2024 Nisha Villanueva MD Attending Provider , Other Provider Active Start: March 18, 2024 Team Status: Inactive Member Role Status Dates Maribeth Vuong DO Primary Care Provider Active Start: March 30, 2024 End: March 30, 2024 Nisha Villanueva MD Attending Provider Active Start: March 30, 2024 End: March 30, 2024 Team Status: Inactive Member Role Status Dates Maribeth Vuong DO Primary Care Provider Active Start: April 05, 2024 End: April 05, 2024 Jude Kruse APRN Attending Provider Active Start: April 05, 2024 End: April 05, 2024 Team Status: Inactive Member Role Status Dates Maribeth Vuong DO Primary Care Provider Active Start: April 06, 2024 End: April 06, 2024 Nisha Villanueva MD Attending Provider Active Start: April 06, 2024 End: April 06, 2024 Team Status: Active Member Role Status Dates Maribeth Vuong DO Primary Care Provider Active Start: May 05, 2024 Nisha Villanueva MD Attending Provider Active Start: May 05, 2024 Team Status: Inactive Member Role Status Dates Maribeth Teri Vuong Primary Care Provider Active Start: May 05, 2024 End: May 05, 2024 Nisha Villanueva MD Attending Provider Active Start: May 05, 2024 End: May 05, 2024 Goals (unrecognized section and content) Goals [...] BE BASED ON THE PRIMARY CLINICAL RECORDS. [employer] [facility]. provides no warranty or guarantee of the accuracy or completeness of information in this document.
--- NOTE | 2024-05-12 09:05 | PM.CN ---
Consult Note: HPI Data of Consult Patient: known to practice within the last 3 years Requesting Physician: Brianna Wallace NP Primary Care Provider: MARIBETH VUONG Consult Narrative Reason for consult: f/u Narrative: Ubaldo Irene a 43 year old male presents for evaluation of chronic pain. reports neck pain well controlled. middle back and low back 3-07/15 today increasing with standing and walking. Pt called in early april requesting medrol dose pack for acute back pain/spasming, I would not prescribe without evaluating the pt to which he met with his surgeon and received medrol dose pack at that time. pt reports oral steroids put him into a severe rage and he tries to isolate himself for 3 weeks after taking to avoid roid raging . Pt does find significant to PRN medrol dose packs for acute back pain and spasming, reports its the only thing that has helped him the last 10 years with these acute flares. as discussed, pt has to be evaluated prior to prescribing and I do not recommend utilizing on a regular basis. Pt is a NNCP violating pain treatment agreement, previously reported utilizing marijuana while on opioids through our office. currently utilizing tylenol, flexeril 10mg TID, mobic 15mg daily, lyrica 50mg BID with benefit. pt has been taking PRN norco from a prior thumb surgery on a PRN basis. cc:: CC: Brianna Wallace NP [facility] Medical History Fracture of left lower leg ?S82.92XA - Unspecified fracture of left lower leg, initial encounter for closed fracture (ICD-10) Upper back pain ?M54.9 - Dorsalgia, unspecified (ICD-10) Neck pain ?M54.2 - Cervicalgia (ICD-10) Low back pain ?M54.50 - Low back pain, unspecified (ICD-10) Former smoker ?Z87.891 - Personal history of nicotine dependence (ICD-10) Surgical History S/P lumbar spine operation ?Z98.890 - Other specified postprocedural states (ICD-10) Meds Home Medications and Allergies Home Medications ?Medication ?Instructions ?Recorded ?Confirmed ?Type acetaminophen 500 mg tablet 1,000 mg PO Q6H 09/13/22 09/09/23 History (Tylenol Extra Strength) diphenhydramine HCl 25 mg tablet 50 mg PO DAILY 09/13/22 09/09/23 History (Allergy (diphenhydramine)) meloxicam 15 mg tablet 15 mg PO DAILY 09/13/22 09/09/23 History losartan 50 mg-hydrochlorothiazide tab 01/07/23 History 12.5 mg tablet cyclobenzaprine 10 mg tablet 10 mg PO TID PRN muscle spasm #80 01/22/23 09/09/23 Rx tabs tramadol 50 mg tablet 50 mg PO BID 08/26/23 09/09/23 History pregabalin 50 mg capsule (Lyrica) 50 mg PO BID #60 caps 03/08/24 Rx pregabalin 50 mg capsule (Lyrica) 50 mg PO BID #60 caps 05/05/24 Rx Allergies Allergy/AdvReac Type Severity Reaction Status Date / Time gabapentin AdvReac Severe Dizziness Verified 09/09/23 07:22 zonisamide (From Zonegran) AdvReac Intermediate Nausea Verified 09/09/23 07:22 Exam Neck & C-Spine Cervical spine: cervical ROM normal, pain with cervical ROM and cervical spine tenderness; no paracervical muscle tenderness, no paracervical muscle spasm and no trapezius muscle tenderness Back & Pelvis Thoracic spine/upper back: ROM limited, pain with ROM and thoracic spinal tenderness Lumbar spine/lower back: ROM limited and straight leg raise negative bilaterally Assessment and Plan Assessment and Plan (1) Cervical spondylosis: (2) Thoracic spondylosis: (3) Lumbar radiculopathy: (4) Lumbar stenosis with neurogenic claudication: (5) Status post lumbar spinal fusion: (6) Marijuana use: (7) Lumbar spondylosis: (8) Encounter for medication monitoring: Plan Patient asked if I would prescribe medrol dose pack for acute flares of muscle spasms and back pain in the future, as discussed pt will need to be seen in the office for evaluation prior to prescribing any new medications. Patient agreeable but states i have refused to prescribe to him in the past. no documentation of this other than where patient has been asked to come in for an appointment. 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 As discussed with pt as he has previously violated his [employer] with multiple failed drug screens and admitting to utilizing marijuana while on opioids which resulted in NNCP we will not be any prescribing opioids to the pt. Patient is on pregabalin which is a controlled substance and needs to be monitored closely with opioid use and pt should not be receiving opioids from other providers unless acute post op pain/injury. Patient would like to talk to his PCP about PRN opioids and I told the patient that this violates his [employer] and while he is on pregabalin this may result in dismissal from our practice. I offered pt a referral to another pain clinic, he declined. Pt reports this is the best he has felt and he finds benefit to his interventions and medications through our office. I would like patient to see Dr Manning at his next visit, which will be in 6 months as patient is stable sooner if needed. at this time continue current medications.
== END 2024-05-12 08:28 | disposition home or self-care (01) ==
LOC: PM 08:27
PROVIDERS: Visit Provider Nurse Practitioner
DX: M47.812 Spondylosis without myelopathy or radiculopathy, cervical region (principal); M47.814 Spondylosis without myelopathy or radiculopathy, thoracic region; M54.16 Radiculopathy, lumbar region; M48.062 Spinal stenosis, lumbar region with neurogenic claudication; M43.26 Fusion of spine, lumbar region; Z79.899 Other long term (current) drug therapy; M47.816 Spondylosis without myelopathy or radiculopathy, lumbar region; Z51.81 Encounter for therapeutic drug level monitoring
CPT/HCPCS: G0463